=== PATIENT | female | born 1995 | race Caucasian/White ===

== ENCOUNTER 2016-10-25 07:19 | Emergency (ER) | payer SELFPAY ==
[~2016-10-25] VITALS: Ht 165.1 cm; Wt 94.8 kg
[~2016-10-25 07:19] MED LIST: ALBU8.5H4 IH; ARIP2TAB10 PO; AZIT-21 PO; AZIT250T5 PO; BENZ-13 PO; BENZ100C8 PO; BUTA-234 PO; BUTA1TAB46 PO; BUTA1TAB55 PO; CEFU250T PO; CEPH-507 PO; CIPR500T4 PO; CIPR500T78 PO; CLAR-19 PO; D-ME118S33 PO; DESV50TA PO; DIVA250T2 PO; ESCI20TA2 PO; HYDR-757 PO; LEVO40CA PO; METH4TAB PO; MINO100T10 PO; NAPR-243 PO; NAPR250T34 PO; NF-CIPDEC OT; NF-CIPROHC OT; NITR-65 PO; ONDA-42 SL; ONDA4TAB8 PO; ONDA8TAB13 PO; PRD20T PO; PRM25T PO; PROM25SU10 PR; PROZAC PO; RT-ALBUINH IH; TORADOL PO; TRAM50TA2 PO; TRAZ-144 PO; TRAZ300T3 PO
--- NOTE | 2016-10-25 07:41 | ED EENT ---
History of Present Illness General Chief Complaint: Eye Problems Stated Complaint: LEFT EYE REDNESS Nursing Triage Note: AMBULATED TO ROOM 07 WITH COMPLAINTS OF PINK EYE IN LEFT EYE SINCE 0200. Source: patient Exam Limitations: no limitations History of Present Illness Time seen by provider: 07:36 Initial Comments This 21-year-old white female presents with conjunctivitis of the left eye that she noted this morning. Patient denies foreign body injury or loss of her usual visual acuity. Patient's had no associated fever, headache, stiff neck, significant nasal congestion, sore throat, or productive cough. Pertinent past medical history includes depression, difficulty hearing from both ears and allergies to penicillins and sulfas. Her physician is at [facility]. Allergies and Home Medications Allergies Coded Allergies: amoxicillin (Verified Allergy, Unknown, 12/20/15) carbamazepine (Verified Allergy, Unknown, 12/20/15) Penicillins (Unverified Adverse Reaction, Intermediate, 12/20/15) Sulfa (Sulfonamide Antibiotics) (Unverified Adverse Reaction, Intermediate , 12/20/15) Review of Systems Constitutional: No chills, No fever Eyes: Denies Blindness, Denies Blurred Vision, Denies Foreign Body Sensation, InflammationDenies Photophobia Ears: Denies Pain Nose: denies epistaxis Mouth: no symptoms reported Throat: denies pain Respiratory: no symptoms reported Gastrointestinal: no symptoms reported Musculoskeletal: no symptoms reported Skin: no symptoms reported Neurological: No Symptoms Reported Hematologic/Lymphatic: No Symptoms Reported Immunological/Allergic: no symptoms reported Past Avvikod-Nahoep-Qjypul Hx Patient Social History Recent Foreign Travel: No Contact w/Someone Who Travel: No Recent Infectious Disease Expo: No Recent Hopitalizations: No Immunizations Up To Date Tetanus Booster (TDap): Unknown PED Vaccines UTD: Yes Date of Pneumonia Vaccine: Apr 19, 2012 Date of Influenza Vaccine: Apr 19, 2012 Seasonal Allergies Seasonal Allergies: Yes Surgeries HX Surgeries: Yes (RIGHT NEPHRECTOMY, BMT'S, TUMOR REMOVAL ROOF OF MOUTH) Surgeries: Adenoidectomy, Ear Surgery, Nephrectomy, Renal, Tonsillectomy Respiratory Hx Respiratory Disorders: No Cardiovascular Hx Cardiac Disorders: Yes Cardiac Disorders: High Cholesterol, Hypertension Neurological Hx Neurological Disorders: Yes (LAST SEIZURE @ 9YRS OLD) Neurological Disorders: Headaches /Migraines, Seizure Disorder Reproductive System Hx Reproductive Disorders: No Genitourinary Hx Genitourinary Disorders: Yes (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 CHILD) Gastrointestinal Hx Gastrointestinal Disorders: No Musculoskeletal Hx Musculoskeletal Disorders: No Endocrine Hx Endocrine Disorders: No HEENT HX ENT Disorders: Yes (BMT'S, 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, [place] LEFT EAR) HEENT Disorders: Chronic Ear Infection Hearing Impairment: Hard of Hearing Cancer Hx Cancer: No Psychosocial Hx Psychiatric Problems: Yes Behavioral Health Disorders: Anxiety, Depression Integumentary HX Skin/Integumentary Disorder: No Blood Transfusions Hx Blood Disorders: No Reviewed Nursing Assessment Reviewed/Agree w Nursing PMH: Yes Family Medical History Significant Family History: No Pertinent Family Hx Visual Acuity : Eye Location: Bilaterally Vision Acuity Degree: 20/40 Physical Exam Vital Signs Vital Sign - Last 12Hours 10/25/16 07:20 Temp 98.2 Pulse 107 Resp 18 B/P 156/80 Pulse Ox 96 O2 Delivery Non Rebreather General Appearance: WD/WN no apparent distress Eyes: left eye conjunctival inflammation, left eye lid inflammation Ears: bilateral ear auricle normal Nose: normal inspection Mouth/Throat: normal mouth inspection Neck: non-tender supple Neurologic/Psychiatric: no motor/sensory deficits alert normal mood/affect Skin: normal color warm/dry Progress/Results/Core Measures Results/Orders Vital Signs/I&O Vital Sign - Last 12Hours 10/25/16 07:20 Temp 98.2 Pulse 107 Resp 18 B/P 156/80 Pulse Ox 96 O2 Delivery Non Rebreather Blood Pressure Mean: 105 Progress Note : Time: 07:40 Progress Note The patient's visual acuity was 20/40 in both eyes which the patient states is normal for her. There was significant scleral injection as well as lid inflammation without swelling of the soft tissues. Fortunately no floor seen exam failed to demonstrate evidence of corneal abrasion or foreign body. Next The residual floor seen was removed with saline. Departure Impression Impression: Primary Impression: [place] eye disease of left eye Disposition: 01 HOME, SELF-CARE Condition: Unchanged Departure-Patient Inst. Decision time for Depature: 07:42 Referrals: [facility] (PCP/Family) Primary Care Physician Patient Instructions: Conjunctivitis ([place]) (DC) Add. Discharge Instructions: I discussed the likely viral etiology of the scleral injection of the left eye with the patient. Patient was encouraged to avoid cross contamination from her left or right eye. Good handwashing was already cleared to the patient. I asked that she follow up with community health closely. The patient requested eyedrops for the conjunctivitis of left eye. I gave her cipro drops for coverage of a secondary bacterial infection and instructions employed either Naphcon or Vascon A eyedrops to the left eye for relief. I asked that she return if any problems or questions All discharge instructions reviewed with patient and/or family. Voiced understanding. KAMI GUNDERSON MD Oct 25, 2016 07:41
[2016-10-25 07:50] VITALS: BP 156/80
[2016-10-25] MEDS ORDERED: FLUORESCEIN (FLUOR-I-STRIPS) 1 MG STRP OU ONE (08:00)
[2016-10-25] MEDS ORDERED: BSS 15 ML IR ONE (08:00)
[2016-10-25] MEDS ORDERED: CATHETER FLUSH 10 ML SYR IV PRN (08:00)
== END 2016-10-25 07:50 | disposition home or self-care (01) ==
LOC: EDUNIT# 07:19 → ER 07:21
DX: H10.022 Other mucopurulent conjunctivitis, left eye (principal)
CPT/HCPCS: 99282

== ENCOUNTER 2016-12-21 12:23 | Emergency (ER) | payer SELFPAY ==
[~2016-12-21] VITALS: Ht 165.1 cm; Wt 113.4 kg
--- NOTE | 2016-12-21 12:59 | ED Cough/URI ---
General Chief Complaint: Cough/Cold/Flu Symptoms Stated Complaint: POSS STREP Nursing Triage Note: AMBULATED TO ROOM 08 WEARING A MASK. COMPLAINS OF COUGH, SORE THROAT, LOW GRADE FEVER FOR SEVERAL DAYS. Source: patient Exam Limitations: no limitations History of Present Illness Time seen by provider: 12:59 Initial Comments 21-year-old female patient presents to the emergency department with complaints of cough, congestion, rhinorrhea, sore throat and low-grade fever for the last 2 -3 days. Worse today. Timing/Duration: getting worse, other (2-3 days) Severity/Quality: productive cough (whitish with slight green tinged) Prior Episodes/Possible Cause: no prior episodes Modifying Factors: Worse With Coughing, Worse With Other (worse with swallowing ) Allergies and Home Medications Allergies Coded Allergies: amoxicillin (Verified Allergy, Unknown, 12/20/15) carbamazepine (Verified Allergy, Unknown, 12/20/15) Penicillins (Unverified Adverse Reaction, Intermediate, 12/20/15) Sulfa (Sulfonamide Antibiotics) (Unverified Adverse Reaction, Intermediate , 12/20/15) Home Medications Oseltamivir Phosphate 75 Mg Cap #10 75 MG PO BID Prescribed by: BASILIO REA on 12/21/16 1312 Promethazine HCl 25 Mg Tablet #10 12.5-25 MG PO Q6H PRN PRN NAUSEA/VOMITING Prescribed by: BASILIO REA on 12/21/16 1312 Constitutional: see HPI chills fever malaise EENTM: nose congestion throat painNo ear discharge, No ear pain, No mouth pain , No mouth swelling, No throat swelling Respiratory: see HPI cough phlegmNo short of breath, No stridor, No wheezing Cardiovascular: no symptoms reported Gastrointestinal: No abdominal pain, No diarrhea, nauseaNo vomiting Genitourinary: no symptoms reported Musculoskeletal: no symptoms reported Skin: no symptoms reported Psychiatric/Neurological: No Symptoms Reported All Other Systems Reviewed Negative Unless Noted: Yes (Negative excepted noted.) Past Homujxe-Rbrqen-Zhffwc Hx Patient Social History Recent Foreign Travel: No Contact w/Someone Who Travel: No Recent Infectious Disease Expo: No Recent Hopitalizations: No Immunizations Up To Date Tetanus Booster (TDap): Unknown PED Vaccines UTD: Yes Date of Pneumonia Vaccine: Apr 19, 2012 Date of Influenza Vaccine: Apr 19, 2012 Seasonal Allergies Seasonal Allergies: Yes Surgeries HX Surgeries: Yes (RIGHT NEPHRECTOMY, BMT'S, TUMOR REMOVAL ROOF OF MOUTH) Surgeries: Adenoidectomy, Ear Surgery, Nephrectomy, Renal, Tonsillectomy Respiratory Hx Respiratory Disorders: No Cardiovascular Hx Cardiac Disorders: Yes Cardiac Disorders: High Cholesterol, Hypertension Neurological Hx Neurological Disorders: Yes (LAST SEIZURE @ 9YRS OLD) Neurological Disorders: Headaches /Migraines, Seizure Disorder Reproductive System Hx Reproductive Disorders: No Genitourinary Hx Genitourinary Disorders: Yes (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 CHILD) Gastrointestinal Hx Gastrointestinal Disorders: No Musculoskeletal Hx Musculoskeletal Disorders: No Endocrine Hx Endocrine Disorders: No HEENT HX ENT Disorders: Yes (BMT'S, 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, [place] LEFT EAR) HEENT Disorders: Chronic Ear Infection Hearing Impairment: Hard of Hearing Cancer Hx Cancer: No Psychosocial Hx Psychiatric Problems: Yes Behavioral Health Disorders: Anxiety, Depression Integumentary HX Skin/Integumentary Disorder: No Blood Transfusions Hx Blood Disorders: No Reviewed Nursing Assessment Reviewed/Agree w Nursing PMH: Yes Family Medical History Significant Family History: No Pertinent Family Hx Physical Exam Vital Signs Vital Sign - Last 12Hours 12/21/16 12:30 Temp 99.1 Pulse 80 Resp 16 B/P 143/95 Pulse Ox 100 O2 Delivery Room Air Capillary Refill : Less Than 3 Seconds General Appearance: WD/WN no apparent distress HEENT: PERRL/EOMI TMs normal pharyngeal erythema other (positive nasal congestion and rhinorrhea) Neck: non-tender supple normal inspection Respiratory: lungs clear normal breath sounds no respiratory distress Cardiovascular: regular rate, rhythm no murmur Gastrointestinal: non tender softNo distended Extremities: normal capillary refill Neurologic/Psychiatric: alert normal mood/affect oriented x 3 Skin: normal color warm/dry Progress/Results/Core Measures Results/Orders Lab Results Laboratory Tests Test 12/21/16 12:30 Range/Units Group A Streptococcus Screen NEGATIVE NEGATIVE My Orders Orders-BASILIO REA Rapid Strep A Screen (12/21/16 12:31) Vital Signs/I&O Vital Sign - Last 12Hours 12/21/16 12/21/16 12/21/16 12:30 12:30 13:23 Temp 99.1 98.6 Pulse 80 77 Resp 16 16 B/P 143/95 Pulse Ox 100 98 O2 Delivery Room Air Room Air Blood Pressure Mean: 111 Departure Communication Progress Notes Patient seen and evaluated. Laboratory findings discussed with the patient. I discussed with the patient that she does have symptoms suspicious for influenza. patient would like to be treated with Tamiflu. Tamiflu Rx sent to the pharmacy. Impression Impression: Primary Impression: Influenza-like symptoms Disposition: 01 HOME, SELF-CARE Condition: Improved Departure-Patient Inst. Decision time for Depature: 13:11 Referrals: [facility] (PCP/Family) Primary Care Physician Patient Instructions: Flu, Adult (DC) Add. Discharge Instructions: All discharge instructions reviewed with patient and/or family. Voiced understanding. Medications as instructed. Tylenol extra strength over-the- counter as directed for pain or fever. Ibuprofen 800 mg by mouth every 8 hours as needed for pain or fever. Push fluids. Throat lozenges or sprays over-the- counter as needed for throat pain. Follow-up with her family practitioner for recheck if no improvement in symptoms in 3-5 days, call for appointment time if needed. Return to the emergency department for worsened fever, pain, difficulty swallowing, difficulty breathing, shortness of air, vomiting, decreased urination, or any other concerns. Scripts Promethazine HCl (Promethazine Tablet)25 Mg Atdfow23.5-25 Mg PO Q6H PRN NAUSEA/ VOMITING #10 TAB Ref 0 Prov:BASILIO REA 12/21/16 Oseltamivir Phosphate (Tamiflu)75 Mg Cap75 Mg PO BID #10 CAP Ref 0 Prov:BASILIO REA 12/21/16 BASILIO REA Dec 21, 2016 12:59
[2016-12-21] MEDS ORDERED: PROM25TA14 PO (13:12)
[2016-12-21] MEDS ORDERED: OSLT75C PO (13:12)
[2016-12-21 13:23] VITALS: BP 140/89
== END 2016-12-21 13:23 | disposition home or self-care (01) ==
LOC: EDUNIT# 12:23 → ER 12:24
DX: J10.1 Influenza due to other identified influenza virus with other respiratory manifestations (principal); I10 Essential (primary) hypertension; Z79.899 Other long term (current) drug therapy; Z90.5 Acquired absence of kidney
CPT/HCPCS: 87430; 99282

== ENCOUNTER 2017-03-12 16:04 | Emergency (ER) | payer SELFPAY ==
[~2017-03-12] VITALS: Ht 165.1 cm; Wt 113.4 kg
[~2017-03-12 16:04] MED LIST changes: +OSLT75C PO; +PROM25TA14 PO
[2017-03-12] MEDS ORDERED: CEPH500C PO (16:20)
--- NOTE | 2017-03-12 16:36 | ED EENT ---
History of Present Illness General Chief Complaint: Oral/Throat Problems Stated Complaint: HURTS TO COUGH,THROAT HURTS Nursing Triage Note: TO ROOM 03 VIA AMB WITHOUT DIFFICULTY. COMPLAINS OF DX STREP THROAT ON FRIDAY. STATES SHE WAS PUT ON CEPHALEXIN AND THINKS SHE IS HAVING AN ALLERGIC REACTION TO IT BECAUSE HER THROAT HURTS WORSE AND IT IS ITCHING. Source: patient Exam Limitations: no limitations History of Present Illness Time seen by provider: 16:35 Allergies and Home Medications Allergies Coded Allergies: amoxicillin (Verified Allergy, Unknown, 12/20/15) carbamazepine (Verified Allergy, Unknown, 12/20/15) Penicillins (Unverified Adverse Reaction, Intermediate, 12/20/15) Sulfa (Sulfonamide Antibiotics) (Unverified Adverse Reaction, Intermediate , 12/20/15) Home Medications Cephalexin 500 Mg Capsule, 500 MG PO TID, (Reported) Past Gtjmovo-Mqddfm-Kldtbx Hx Patient Social History Alcohol Use: Denies Use Recreational Drug Use: No Smoking Status: Never a Smoker Recent Foreign Travel: No Contact w/Someone Who Travel: No Recent Infectious Disease Expo: No Recent Hopitalizations: No Immunizations Up To Date Tetanus Booster (TDap): Unknown PED Vaccines UTD: Yes Date of Pneumonia Vaccine: Apr 19, 2012 Date of Influenza Vaccine: Apr 19, 2012 Seasonal Allergies Seasonal Allergies: Yes Surgeries HX Surgeries: Yes (RIGHT NEPHRECTOMY, BMT'S, TUMOR REMOVAL ROOF OF MOUTH) Surgeries: Adenoidectomy, Ear Surgery, Nephrectomy, Renal, Tonsillectomy Respiratory Hx Respiratory Disorders: No Cardiovascular Hx Cardiac Disorders: Yes Cardiac Disorders: High Cholesterol, Hypertension Neurological Hx Neurological Disorders: Yes (LAST SEIZURE @ 9YRS OLD) Neurological Disorders: Headaches /Migraines, Seizure Disorder Reproductive System Hx Reproductive Disorders: No Genitourinary Hx Genitourinary Disorders: Yes (RIGHT NEPHRECTOMY FOR BENIGN TUMOR / SMALL CHILD) Gastrointestinal Hx Gastrointestinal Disorders: No Musculoskeletal Hx Musculoskeletal Disorders: No Endocrine Hx Endocrine Disorders: No HEENT HX ENT Disorders: Yes (BMT'S, 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, [place] LEFT EAR) HEENT Disorders: Chronic Ear Infection Hearing Impairment: Hard of Hearing Cancer Hx Cancer: No Psychosocial Hx Psychiatric Problems: Yes Behavioral Health Disorders: Anxiety, Depression Integumentary HX Skin/Integumentary Disorder: No Blood Transfusions Hx Blood Disorders: No Family Medical History Significant Family History: No Pertinent Family Hx Physical Exam Vital Signs Vital Sign - Last 12Hours 5/24/17 16:16 Temp 99.0 Pulse 88 Resp 16 B/P (MAP) 133/96 Pulse Ox 93 Progress/Results/Core Measures Results/Orders Vital Signs/I&O Vital Sign - Last 12Hours 03/12/17 16:16 Temp 99.0 Pulse 88 Resp 16 B/P (MAP) 133/96 Pulse Ox 93 Blood Pressure Mean: 108 Departure Impression Impression: Primary Impression: Streptococcal sore throat Disposition: HOME, SELF-CARE Condition: Improved Departure-Patient Inst. Decision time for Depature: 16:56 Referrals: [facility] (PCP[facility]Family) Primary Care Physician Patient Instructions: Strep Throat (DC) Add. Discharge Instructions: All discharge instructions reviewed with patient and/or family. Voiced understanding. Medications as instructed. Tylenol extra strength over-the- counter as directed for pain. Ibuprofen [id number] as directed for pain. Drink plenty of fluids. Cool humidifier. Follow-up with your primary care physician for recheck if needed. Return to the emergency department for worsened symptoms or any other concerns. Scripts Benzonatate (Tessalon Perle) 100 Mg Capsule 100-200 MG PO Q8H Y for COUGH, #30 CAP 0 Refills Prov: BASILIO REA 03/12/17 Erythromycin Base (Erythromycin) 500 Mg Tablet 500 MG PO QID, #40 TAB 0 Refills Prov: BASILIO REA 03/12/17 BASILIO REA March 12, 2017 16:36
[2017-03-12] MEDS ORDERED: ERYT-96 PO (16:59)
[2017-03-12] MEDS ORDERED: ACETAMINOPHEN 500 MG TAB (TYLENOL) PO STA (17:01)
[2017-03-12] MEDS ORDERED: BENZ-13 PO (17:01)
[2017-03-12 17:14] VITALS: BP 133/96
== END 2017-03-12 17:14 | disposition home or self-care (01) ==
LOC: EDUNIT# 16:04 → ER 16:06
DX: J02.0 Streptococcal pharyngitis (principal); I10 Essential (primary) hypertension; Z90.5 Acquired absence of kidney
CPT/HCPCS: 99282

== ENCOUNTER 2017-08-08 20:18 | Emergency (ER) | payer SELFPAY ==
[~2017-08-08] VITALS: Ht 165.1 cm; Wt 113.4 kg
[~2017-08-08 20:18] MED LIST changes: +CEPH500C PO; +ERYT-96 PO
--- NOTE | 2017-08-08 21:49 | ED EENT ---
History of Present Illness General Chief Complaint: Oral/Throat Problems Stated Complaint: STREP THROAT Nursing Triage Note: c/o sore throat, since friday the , reports was evaluated by PCP 2 days ago and told she had strep throat, patient was started on antibiotic and medication for cough, denies improvement. patient called pcp and was told to follow up with them tomorrow or check into ER tonight Source: patient Exam Limitations: no limitations History of Present Illness Time seen by provider: 21:48 Allergies and Home Medications Allergies Coded Allergies: amoxicillin (Verified Allergy, Unknown, 12/20/15) carbamazepine (Verified Allergy, Unknown, 12/20/15) Penicillins (Unverified Adverse Reaction, Intermediate, 12/20/15) Sulfa (Sulfonamide Antibiotics) (Unverified Adverse Reaction, Intermediate , 12/20/15) Home Medications Benzonatate 100 Mg Capsule, 100-200 MG PO Q8H PRN for COUGH, #30 Ref 0 Prescribed by: BASILIO REA on 03/12/17 1701 Cephalexin 500 Mg Capsule, 500 MG PO TID, (Reported) Erythromycin Base 500 Mg Tablet, 500 MG PO QID, #40 Ref 0 Prescribed by: BASILIO REA on 03/12/17 1659 Past Jmyzwwy-Lqaeju-Gzvvyr Hx Patient Social History Alcohol Use: Denies Use Recreational Drug Use: No Recent Foreign Travel: No Contact w/Someone Who Travel: No Recent Infectious Disease Expo: No Recent Hopitalizations: No Physical Abuse: No Sexual Abuse: No Immunizations Up To Date Tetanus Booster (TDap): Unknown PED Vaccines UTD: Yes Date of Pneumonia Vaccine: Apr 19, 2012 Date of Influenza Vaccine: Apr 19, 2012 Seasonal Allergies Seasonal Allergies: Yes Surgeries History of Surgeries: Yes (RIGHT NEPHRECTOMY, BMT'S, TUMOR REMOVAL ROOF OF MOUTH) Surgeries: Adenoidectomy, Ear Surgery, Nephrectomy, Renal, Tonsillectomy Respiratory History of Respiratory Disorde: No Cardiovascular History of Cardiac Disorders: Yes Cardiac Disorders: High Cholesterol, Hypertension Neurological History of Neurological Disord: Yes (LAST SEIZURE @ 9YRS OLD) Neurological Disorders: Headaches /Migraines, Seizure Disorder Reproductive System Hx Reproductive Disorders: No Genitourinary History of Genitourinary Disor: No Gastrointestinal History of Gastrointestinal Di: No Musculoskeletal History of Musculoskeletal Dis: No Endocrine History of Endocrine Disorders: No HEENT HEENT Disorders: Chronic Ear Infection Hearing Impairment: Hard of Hearing Cancer History of Cancer: No Psychosocial History of Psychiatric Problem: Yes Behavioral Health Disorders: Anxiety, Depression Suicide Risk Score: 0 Integumentary History of Skin or Integumenta: No Blood Transfusions History of Blood Disorders: No Family Medical History Significant Family History: No Pertinent Family Hx Physical Exam Vital Signs Vital Sign - Last 12Hours 08/08/17 20:45 Temp 99.1 Pulse 102 Resp 18 B/P (MAP) 163/88 Pulse Ox 99 Progress/Results/Core Measures Results/Orders Lab Results Laboratory Tests Test 08/08/17 20:55 Range/Units Group A Streptococcus Screen NEGATIVE NEGATIVE My Orders Orders - BASILIO REA Rapid Strep A Screen (08/08/17 20:49) Vital Signs/I&O Vital Sign - Last 12Hours 08/08/17 20:45 Temp 99.1 Pulse 102 Resp 18 B/P (MAP) 163/88 Pulse Ox 99 Blood Pressure Mean: 113 Departure Impression Impression: Primary Impression: Acute bronchitis Additional Impression: Pharyngitis, acute Disposition: 01 HOME, SELF-CARE Condition: Improved Departure-Patient Inst. Decision time for Depature: 22:35 Referrals: [facility] (PCP/Family) Primary Care Physician Patient Instructions: Acute Bronchitis, Adult (DC) Add. Discharge Instructions: All discharge instructions reviewed with patient and/or family. Voiced understanding. Medications as instructed. Continue medications as prescribed by [facility]. Tessalon Perles 100-200 mg by mouth every 8 hours as needed for cough. Cool humidifier if needed. Avoid secondhand smoke. Follow-up with [facility] as an outpatient for recheck if no improvement in symptoms. Return to the emergency department for worsened symptoms or any other concerns. Scripts Albuterol Sulfate (Proventil Hfa) 6.7 Gm Hfa.aer.ad 2 PUFF IH Q6H Y for SHORTNESS OF BREATH, #1 EACH 0 Refills Prov: BASILIO REA 08/08/17 Prednisone (Prednisone) 20 Mg Tab 40 MG PO DAILY, #10 TAB 0 Refills Prov: BASILIO REA 08/08/17 BASILIO REA Aug 08, 2017 21:48
[2017-08-08] MEDS ORDERED: RT-ALBUINH IH (22:37)
[2017-08-08] MEDS ORDERED: PRD20T PO (22:37)
[2017-08-08 22:42] VITALS: BP 163/88
== END 2017-08-08 22:41 | disposition home or self-care (01) ==
LOC: EDUNIT# 20:18 → ER 20:19
DX: J20.9 Acute bronchitis, unspecified (principal); J02.9 Acute pharyngitis, unspecified; I10 Essential (primary) hypertension; G43.909 Migraine, unspecified, not intractable, without status migrainosus; F41.9 Anxiety disorder, unspecified; F32.9 Major depressive disorder, single episode, unspecified; G40.909 Epilepsy, unspecified, not intractable, without status epilepticus; Z90.5 Acquired absence of kidney
CPT/HCPCS: 87430; 99282

== ENCOUNTER 2017-09-18 00:31 | Emergency (ER) | payer SELFPAY ==
[~2017-09-18] VITALS: Ht 165.1 cm; Wt 117.9 kg
[~2017-09-18 00:31] MED LIST changes: +AZIT250T12 PO; -AZIT250T5 PO
[2017-09-18 00:52] LABS: BILIRUBIN,URINE NEGATIVE (NEGATIVE); KETONES,URINE NEGATIVE (NEGATIVE); LEUKOCYTE ESTERASE ,URINE 2+ (NEGATIVE); NITRITE,URINE NEGATIVE (NEGATIVE); PH,URINE 5 (5-9); PROTEIN,URINE 3+ (NEGATIVE); UROBILINOGEN,URINE NORMAL (NORMAL)
[2017-09-18 00:59] LABS: CALCIUM OXALATE CRYSTALS,UR FEW /LPF; SQUAMOUS EPITHELIAL CELL,UR 0-2 /HPF; WBC,URINE 0-2 /HPF
[2017-09-18 01:40] VITALS: BP 141/84
--- NOTE | 2017-09-18 01:41 | ED GU-Female ---
General Chief Complaint: Back Problems Stated Complaint: LOWER BACK PAIN,BLOOD IN URINE Nursing Triage Note: LOWER BACK PAIN/HEMATURIA Nursing Sepsis Screen: No Definite Risk Source: patient History of Present Illness Time seen by provider: 00:39 Initial Comments C/O DIFFUSE LOWER BACK PAIN AND BLOOD IN URINE X 3 DAYS NO PAIN OR BURNING ON URINATION NO FEVER NO NAUSEA/VOMITING NO ABDOMINAL PAIN NO HISTORY OF SIMILAR HAS NOT TAKEN ANYTHING FOR SYMPTOMS HAS NOT SOUGHT CARE UNTIL TODAY PCP: [facility] Allergies and Home Medications Allergies Coded Allergies: amoxicillin (Verified Allergy, Unknown, 12/20/15) carbamazepine (Verified Allergy, Unknown, 12/20/15) Penicillins (Unverified Adverse Reaction, Intermediate, 12/20/15) Sulfa (Sulfonamide Antibiotics) (Unverified Adverse Reaction, Intermediate , 12/20/15) Home Medications Nitrofurantoin Monohyd/M-Cryst 100 Mg Capsule, 100 MG PO BID, #20 Prescribed by: SHAQ OLSEN on 09/18/17 0142 Tramadol HCl 50 Mg Tablet, 50 MG PO Q4H, #20 Prescribed by: SHAQ OLSEN on 09/18/17 0142 Constitutional: no symptoms reported Respiratory: no symptoms reported Cardiovascular: no symptoms reported Gastrointestinal: no symptoms reported Genitourinary: see HPI, denies burning, denies dysuria, flank pain, hematuria, denies pain, denies urgency : No LMP: Sep 09, 2017 (NO CONTROL) Musculoskeletal: see HPI, back pain Past Gcqpezo-Vqjvbt-Rmodla Hx Patient Social History Alcohol Use: Denies Use Recreational Drug Use: No Smoking Status: Never a Smoker 2nd Hand Smoke Exposure: No Recent Foreign Travel: No Contact w/Someone Who Travel: No Recent Infectious Disease Expo: No Recent Hopitalizations: No Immunizations Up To Date Tetanus Booster (TDap): Unknown PED Vaccines UTD: Yes Date of Pneumonia Vaccine: Apr 19, 2012 Date of Influenza Vaccine: Apr 19, 2012 Seasonal Allergies Seasonal Allergies: Yes Surgeries History of Surgeries: Yes (RIGHT NEPHRECTOMY, BMT'S, TUMOR REMOVAL ROOF OF MOUTH) Surgeries: Adenoidectomy, Ear Surgery, Nephrectomy, Renal, Tonsillectomy Respiratory History of Respiratory Disorde: No Cardiovascular History of Cardiac Disorders: Yes Cardiac Disorders: High Cholesterol, Hypertension Neurological History of Neurological Disord: Yes (LAST SEIZURE @ 9YRS OLD. NO SEIZURE MEDICATIONS FOR YEARS) Neurological Disorders: Headaches /Migraines, Seizure Disorder Reproductive System : No Hx Reproductive Disorders: No Genitourinary History of Genitourinary Disor: Yes (RIGHT NEPHRECTOMY FOR BENIGN TUMOR /SMALL CHILD) Gastrointestinal History of Gastrointestinal Di: No Musculoskeletal History of Musculoskeletal Dis: No Endocrine History of Endocrine Disorders: No HEENT History of HEENT Disorders: Yes HEENT Disorders: Chronic Ear Infection Hearing Impairment: Hard of Hearing Cancer History of Cancer: No Psychosocial History of Psychiatric Problem: Yes Behavioral Health Disorders: Anxiety, Depression Integumentary History of Skin or Integumenta: No Blood Transfusions History of Blood Disorders: No Family Medical History Significant Family History: No Pertinent Family Hx Physical Exam Vital Signs Vital Sign - Last 12Hours 09/18/17 00:43 Temp 98.4 Pulse 80 Resp 46 B/P (MAP) 141/84 Pulse Ox 97 O2 Delivery Room Air Capillary Refill : Less Than 3 Seconds General Appearance: no apparent distress, obese Cardiovascular: regular rate, rhythm, no murmur Respiratory: normal breath sounds, no respiratory distress, no accessory muscle use Gastrointestinal: normal bowel sounds, non tender, soft, no organomegaly Back: CVA tenderness (R), CVA tenderness (L) Extremities: normal inspection, no pedal edema, normal capillary refill Neurologic/Psychiatric: flux tube attendant II-XII nml as tested, no motor/sensory deficits, alert, normal mood/affect, oriented x 3 Skin: normal color, warm/dry, No rash Progress/Results/Core Measures Suspected Sepsis Recent Fever Within 48 Hours: No Infection Criteria Present: None New/Unexplained Altered Menta: No Sepsis Screen: No Definite Risk Sepsis Diagnosis: SIRS Temperature:98.4 Pulse: 80 Respiratory Rate: 46 Blood Pressure 141 /84 Mean: 103 Results/Orders Lab Results Laboratory Tests Test 09/18/17 00:45 Range/Units Urine Color RED H Urine Clarity BLOODY H Urine pH 5 5-9 Urine Specific [place] 1.030 H 1.016-1.022 Urine Protein 3+ H NEGATIVE Urine Glucose (UA) NEGATIVE NEGATIVE Urine Ketones NEGATIVE NEGATIVE Urine Nitrite NEGATIVE NEGATIVE Urine Bilirubin NEGATIVE NEGATIVE Urine Urobilinogen NORMAL NORMAL MG/DL Urine Leukocyte Esterase 2+ H NEGATIVE Urine RBC (Auto) 5+ H NEGATIVE Urine RBC >100 H /HPF Urine WBC 0-2 /HPF Urine Squamous Epithelial Cells 0-2 /HPF Urine Crystals PRESENT H /LPF Urine Calcium Oxalate Crystals FEW H /LPF Urine Bacteria MODERATE H /HPF Urine Casts NONE /LPF Urine Mucus NEGATIVE /LPF Urine Culture Indicated YES My Orders Orders - SHAQ OLSEN DO Ua Culture If Indicated (09/18/17 00:38) Urine Bedside (09/18/17 00:38) Urine Culture (09/18/17 00:45) Ct Abd/Pelvis Wo(Kidney Stone) (09/18/17 01:05) Abdomen/Kub 1[place] (09/18/17 01:05) Rx-Nitrofurantoin [place] (Rx-Macrobid) (09/18/17 01:43) Rx-Tramadol Hcl (Rx-Ultram) (09/18/17 01:43) Vital Signs/I&O Vital Sign - Last 12Hours 09/18/17 09/18/17 00:43 01:40 Temp 98.4 98.4 Pulse 80 80 Resp 46 46 B/P (MAP) 141/84 Pulse Ox 97 97 O2 Delivery Room Air Capillary Refill : Less Than 3 Seconds Blood Pressure Mean: 103 Point of Care Testing Urine -Bedside: Negative Diagnostic Imaging Comments KUB--NO ACUTE PROCESS, PENDING RADIOLOGIST REVIEW CT ABDOMEN/PELVIS--NO ACUTE PROCESS, RIGHT NEPHRECTOMY, MULTIPLE SUBCENTIMETER MESENTERIC NODES, SIMILAR TO PREVIOUS--PER [facility] VIA FAX @ 1051 Reviewed: Reviewed by Me Departure Impression Impression: Primary Impression: Urinary tract infection with hematuria Disposition: HOME, SELF-CARE Condition: Stable Departure-Patient Inst. Referrals: [facility] (PCP/Family) Primary Care Physician Patient Instructions: Blood in the Urine (Hematuria), Adult (DC), Urinary Tract Infection, Adult (DC) Add. Discharge Instructions: LOTS OF CLEAR LIQUIDS--NO COFFEE, POP OR TEA TYLENOL NEEDED FOR PAIN FOLLOW UP WITH YOUR DR IN 2-3 DAYS FOR FURTHER CARE All discharge instructions reviewed with patient and/or family. Voiced understanding. Scripts Tramadol HCl (Ultram) 50 Mg Tablet 50 MG PO Q4H, #20 TAB Prov: SHAQ OLSEN DO 09/18/17 Nitrofurantoin Monohyd/M-Cryst (Macrobid 100 mg Capsule) 100 Mg Capsule 100 MG PO BID, #20 CAP Prov: SHAQ OLSEN DO 09/18/17 SHAQ OLSEN DO Sep 18, 2017:41
[2017-09-18] MEDS ORDERED: TRAM-42 PO (01:42)
[2017-09-18] MEDS ORDERED: NITR-65 PO (01:42)
[2017-09-18] MEDS ORDERED: RX-TRAMADOL 50 MG (ULTRAM) TAB PPK#4 PO STA (01:43)
[2017-09-18] MEDS ORDERED: RX-NITROFURANTOIN 100 MG (MACROBID) CAP PPK#2 PO STA (01:43)
--- NOTE | 2017-09-18 06:37 | Diagnostic Imaging Report ---
PROCEDURE: CT urinary tract, rule out kidney stone. TECHNIQUE: Multiple contiguous axial images were obtained through the abdomen and pelvis without the use of intravenous contrast. INDICATION: Low back pain x4 days Lung bases are clear. Liver appears normal. Gallbladder is contracted. Pancreas is normal. Spleen is not enlarged. There is large amount of food residue in the stomach. Adrenals are normal. Right kidney is surgically absent. Left kidney appears normal. Left ureter is clear. Uterus and ovaries appear normal. Small bowel is not dilated. There is no evidence for appendicitis. Colon appears normal. There is no intraperitoneal free air or free fluid. IMPRESSION: Postop changes from right nephrectomy. CT abdomen and pelvis otherwise unremarkable. There is no acute abnormality seen. Dictated by: Dictated on workstation # [id number]
--- NOTE | 2017-09-18 06:40 | Diagnostic Imaging Report ---
INDICATION: Back pain x4 days KUB 1:45 AM Bowel gas pattern is normal. There are no pathologic masses or calcifications. Osseous structures appear normal. IMPRESSION: Negative abdomen and pelvis Dictated by: Dictated on workstation # [id number]
== END 2017-09-18 01:47 | disposition home or self-care (01) ==
LOC: EDUNIT# 00:31 → ER 00:35
DX: N39.0 Urinary tract infection, site not specified (principal); E78.00 Pure hypercholesterolemia, unspecified; I10 Essential (primary) hypertension; G43.909 Migraine, unspecified, not intractable, without status migrainosus; G40.909 Epilepsy, unspecified, not intractable, without status epilepticus; F41.9 Anxiety disorder, unspecified; F32.9 Major depressive disorder, single episode, unspecified; Z90.5 Acquired absence of kidney; Z90.89 Acquired absence of other organs
CPT/HCPCS: 74000; 74176; 81000; 84703; 87088; 99283

== ENCOUNTER 2017-10-18 02:08 | Emergency (ER) | payer SELFPAY ==
[~2017-10-18] VITALS: Ht 165.1 cm; Wt 114.8 kg
[~2017-10-18 02:08] MED LIST changes: +TRAM-42 PO
--- NOTE | 2017-10-18 02:25 | ED EENT ---
History of Present Illness General Chief Complaint: Oral/Throat Problems Stated Complaint: SORE THROAT,SWOLLEN THROAT-BLOODY Source: patient Exam Limitations: no limitations History of Present Illness Time seen by provider: 02:15 Initial Comments Patient presents ER by private conveyance with chief complaint of 4 days she's had progressively worsening sore throat, muffled voice, ear pain bilaterally and some chills. 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 She has tried throat lozenges but they made her sick to her stomach. She' s had her tonsils and adenoids removed. She's had histories of tubes in both ears as a child. Allergies and Home Medications Allergies Coded Allergies: amoxicillin (Verified Allergy, Unknown, 12/20/15) carbamazepine (Verified Allergy, Unknown, 12/20/15) Penicillins (Unverified Adverse Reaction, Intermediate, 12/20/15) Sulfa (Sulfonamide Antibiotics) (Unverified Adverse Reaction, Intermediate , 12/20/15) Home Medications No Active Prescriptions or Reported Meds Review of Systems Constitutional: chills, No fever, No malaise Eyes: Denies Blindness, Denies Blurred Vision Ears: See HPI, Denies Dizziness, Pain, Denies Tinnitus, Denies Purulent Discharge Nose: denies clots, congestion Mouth: denies pain, denies swelling Throat: denies neck stiffness, hoarse Respiratory: cough, No phlegm, No short of breath, No wheezing Skin: No pruritus, No rash Neurological: Denies Headache, Denies Numbness, Denies Paresthesia Past Sftuwtn-Hinwjl-Jzsrut Hx Patient Social History Alcohol Use: Denies Use Recreational Drug Use: No Smoking Status: Never a Smoker 2nd Hand Smoke Exposure: No Recent Foreign Travel: No Contact w/Someone Who Travel: No Recent Hopitalizations: No Immunizations Up To Date Tetanus Booster (TDap): Unknown PED Vaccines UTD: Yes Date of Pneumonia Vaccine: Apr 19, 2012 Date of Influenza Vaccine: Apr 19, 2012 Seasonal Allergies Seasonal Allergies: Yes Surgeries History of Surgeries: Yes (RIGHT NEPHRECTOMY, BMT'S, TUMOR REMOVAL ROOF OF MOUTH) Surgeries: Adenoidectomy, Ear Surgery, Nephrectomy, Renal, Tonsillectomy Respiratory History of Respiratory Disorde: No Cardiovascular History of Cardiac Disorders: Yes Cardiac Disorders: High Cholesterol, Hypertension Neurological History of Neurological Disord: Yes (LAST SEIZURE @ 9YRS OLD. NO SEIZURE MEDICATIONS FOR YEARS) Neurological Disorders: Headaches /Migraines, Seizure Disorder Reproductive System Hx Reproductive Disorders: No Genitourinary History of Genitourinary Disor: Yes (RIGHT NEPHRECTOMY FOR BENIGN TUMOR /SMALL CHILD) Gastrointestinal History of Gastrointestinal Di: No Musculoskeletal History of Musculoskeletal Dis: No Endocrine History of Endocrine Disorders: No HEENT History of HEENT Disorders: Yes HEENT Disorders: Chronic Ear Infection Hearing Impairment: Hard of Hearing Cancer History of Cancer: No Psychosocial History of Psychiatric Problem: Yes Behavioral Health Disorders: Anxiety, Depression Integumentary History of Skin or Integumenta: No Blood Transfusions History of Blood Disorders: No Family Medical History Significant Family History: No Pertinent Family Hx Physical Exam Vital Signs Vital Sign - Last 12Hours 10/18/17 02:10 Temp 97.8 Pulse 93 Resp 18 B/P (MAP) 146/67 (93) Pulse Ox 97 O2 Delivery Room Air General Appearance: WD/WN, no apparent distress Eyes: bilateral eye normal inspection, bilateral eye PERRL, bilateral eye EOMI Ears: bilateral ear auricle normal, bilateral ear canal normal, bilateral ear TM dull (mild retraction and clear mucoid effusion bilaterally) Nose: normal inspection, No active bleeding, No discharge Mouth/Throat: normal mouth inspection, pharynx normal, No tonsillar exudate Neck: non-tender, full range of motion, supple, normal inspection Respiratory: chest non-tender, lungs clear, normal breath sounds, no respiratory distress, no accessory muscle use Neurologic/Psychiatric: alert, oriented x 3 Progress/Results/Core Measures Results/Orders Lab Results Laboratory Tests Test 10/18/17 02:20 Range/Units Group A Streptococcus Screen NEGATIVE NEGATIVE My Orders Orders - HAMMAD ROACH Rapid Strep A Screen (10/18/17 02:18) Vital Signs/I&O Vital Sign - Last 12Hours 10/18/17 02:10 Temp 97.8 Pulse 93 Resp 18 B/P (MAP) 146/67 (93) Pulse Ox 97 O2 Delivery Room Air Departure Impression Impression: Primary Impression: Pharyngitis, acute Qualified Codes: J02.9 - Acute pharyngitis, unspecified Disposition: 01 HOME, SELF-CARE Condition: Stable Departure-Patient Inst. Decision time for Depature: 02:47 Referrals: [facility] (PCP/Family) Primary Care Physician Patient Instructions: Viral Pharyngitis (DC) Add. Discharge Instructions: Drink plenty of fluids and use vapor rubs such as Vicks or Mentholatum, humidifiers, throat lozenges, Chloraseptic sprays, saltwater gargles as needed for your symptoms. Take couple days of rest on your voice. All discharge instructions reviewed with patient and/or family. Voiced understanding. Scripts No Active Prescriptions or Reported Meds Work/School Note: Work Release Form Date Seen in the Emergency Department: Oct 18, 2017 Return to Work: Oct 19, 2017 Other Restrictions Listed Below: Vocal cord rest until 10/21/17. Minimize talking. Copy Copies To 1: IAIN PARSONS TITUS J Oct 18, 2017 02:25
[2017-10-18 02:57] VITALS: BP 146/67
== END 2017-10-18 02:56 | disposition home or self-care (01) ==
LOC: EDUNIT# 02:08 → ER 02:11
DX: J02.9 Acute pharyngitis, unspecified (principal); E78.00 Pure hypercholesterolemia, unspecified; I10 Essential (primary) hypertension; F41.9 Anxiety disorder, unspecified; F32.9 Major depressive disorder, single episode, unspecified; Z90.49 Acquired absence of other specified parts of digestive tract; Z90.5 Acquired absence of kidney
CPT/HCPCS: 87430; 99282

== ENCOUNTER 2017-11-14 18:15 | Emergency (ER) | payer SELFPAY ==
[~2017-11-14] VITALS: Ht 172.7 cm; Wt 114.8 kg
[2017-11-14] MEDS ORDERED: LACTATED RINGERS 1,000 ML IV ONE (18:35)
[2017-11-14] MEDS ORDERED: D5W IV STA (18:35)
[2017-11-14] MEDS ORDERED: LEVETIRACETAM IV STA (18:35)
--- NOTE | 2017-11-14 18:44 | ED Neurological Problem ---
General Chief Complaint: Neurological Problems Stated Complaint: SEIZURE Nursing Triage Note: PT TO ED PER EMS, STATES SHE HAD A SEIZURE AT HOME, WITNESSED BY SISTER AND DAD. STATES SHE HAS NOT HAD A SEIZURE IN 6 YRS, HAS NOT TAKEN SEIZURE MEDS SINCE SHE WAS 10. IS UNSURE OF HOW LONG THE SEIZURE LASTED Nursing Sepsis Screen: No Definite Risk Source: patient, EMS Exam Limitations: no limitations History of Present Illness Date Seen by Provider: Nov 14, 2017 Time Seen by Provider: 18:31 Initial Comments Patient reports to the ER by EMS with a chief complaint that she was having a migraine headache as well as last week or 2 she's been having a cold and 2 weeks ago she had severe sore throat and had to miss 7 days of work. Her migraine lead to nausea and a shooting pain like sensation in her right arm which made her think it was an aura for her historical seizure disorder. She started feeling weird fell over into her dog's bed and [place] asking her baby sister to call her dad come over immediately she thought she didn't have a seizure and then she said she blacked out. EMS not reports patient to be postictal and they picked her up. Patient did not vomit, bite her tongue, cheek , have any incontinence of bowel or bladder. She is witnessed by her sister and father. She says she has a history of seizures and was on Tegretol when she is a child but he discontinued it at age 10 and told her she didn't need it anymore. She's had one other seizure 6 years ago since then and it occurred after a migraine headache. 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 She is having some nausea but no vomiting. She describes her seizures as petit grand mal. She has plans to establish care in the next 1-2 weeks for her migraine headaches with [facility]. Allergies and Home Medications Allergies Coded Allergies: amoxicillin (Verified Allergy, Unknown, 12/20/15) carbamazepine (Verified Allergy, Unknown, 12/20/15) Penicillins (Unverified Adverse Reaction, Intermediate, 12/20/15) Sulfa (Sulfonamide Antibiotics) (Unverified Adverse Reaction, Intermediate , 12/20/15) Home Medications No Active Prescriptions or Reported Meds Constitutional: see HPI, No chills, No malaise Eyes: Denies Blindness, Denies Drainage Ears, Nose, Mouth, Throat: denies ear pain, denies ear discharge Respiratory: No cough, No phlegm Cardiovascular: No chest pain, No palpitations Gastrointestinal: No abdominal pain, No constipation, No diarrhea, No nausea Genitourinary: No discharge, dysuria : No (not sexually active) Past Qiksxzh-Mbdefs-Pbchpz Hx Patient Social History Alcohol Use: Denies Use Recreational Drug Use: No Smoking Status: Never a Smoker 2nd Hand Smoke Exposure: No Recent Foreign Travel: No Contact w/Someone Who Travel: No Recent Infectious Disease Expo: No Recent Hopitalizations: No Immunizations Up To Date Tetanus Booster (TDap): Unknown PED Vaccines UTD: Yes Date of Pneumonia Vaccine: Apr 19, 2012 Date of Influenza Vaccine: Apr 19, 2012 Seasonal Allergies Seasonal Allergies: Yes Surgeries History of Surgeries: Yes (RIGHT NEPHRECTOMY, BMT'S, TUMOR REMOVAL ROOF OF MOUTH) Surgeries: Adenoidectomy, Ear Surgery, Nephrectomy, Renal, Tonsillectomy Respiratory History of Respiratory Disorde: No Cardiovascular History of Cardiac Disorders: Yes Cardiac Disorders: High Cholesterol, Hypertension Neurological History of Neurological Disord: Yes (LAST SEIZURE @ 9YRS OLD. NO SEIZURE MEDICATIONS FOR YEARS) Neurological Disorders: Headaches /Migraines, Seizure Disorder Reproductive System Hx Reproductive Disorders: No Genitourinary History of Genitourinary Disor: Yes (RIGHT NEPHRECTOMY FOR BENIGN TUMOR INFANT/SMALL CHILD) Gastrointestinal History of Gastrointestinal Di: No Musculoskeletal History of Musculoskeletal Dis: No Endocrine History of Endocrine Disorders: No HEENT History of HEENT Disorders: Yes HEENT Disorders: Chronic Ear Infection Hearing Impairment: Hard of Hearing Cancer History of Cancer: No Psychosocial History of Psychiatric Problem: Yes Behavioral Health Disorders: Anxiety, Depression Integumentary History of Skin or Integumenta: No Blood Transfusions History of Blood Disorders: No Family Medical History Significant Family History: No Pertinent Family Hx Physical Exam Vital Signs Vital Sign - Last 12Hours 11/14/17 18:36 Temp 98.2 Pulse 92 Resp 12 B/P (MAP) 158/102 (120) Capillary Refill : Less Than 3 Seconds General Appearance: WD/WN, no apparent distress (mot post ictal) HEENT: PERRL/EOMI, pharynx normal Neck: supple, normal inspection Respiratory: chest non-tender, lungs clear, normal breath sounds Cardiovascular: normal peripheral pulses, regular rate, rhythm Peripheral Pulses: 2+ Radial Pulses (R), 2+ Radial Pulses (L) Gastrointestinal: normal bowel sounds, non tender, soft Extremities: non-tender, normal capillary refill Neurologic/Psychiatric: alert, oriented x 3 Crainal Nerves: normal hearing, normal speech, PERRL Coordination/Gait: normal finger to nose, normal gait Motor/Sensory: no motor deficit, no sensory deficit, no pronator drift Skin: normal color, warm/dry Progress/Results/Core Measures Results/Orders Lab Results Laboratory Tests Test 11/14/17 18:23 11/14/17 18:51 Range/Units White Blood Count 9.2 4.3-11.0 10^3/uL Red Blood Count 4.44 4.35-5.85 10^6/uL Hemoglobin 12.5 11.5-16.0 G/DL Hematocrit 38 35-52 % Mean Corpuscular Volume 85 80-99 FL Mean Corpuscular Hemoglobin 28 25-34 PG Mean Corpuscular Hemoglobin Concent 33 32-36 G/DL Red Cell Distribution Width 13.8 10.0-14.5 % Platelet Count 337 130-400 10^3/uL Mean Platelet Volume 10.6 H 7.4-10.4 FL Neutrophils (%) (Auto) 70 42-75 % Lymphocytes (%) (Auto) 22 12-44 % Monocytes (%) (Auto) 9 0-12 % Eosinophils (%) (Auto) 0 0-10 % Basophils (%) (Auto) 0 0-10 % Neutrophils # (Auto) 6.4 1.8-7.8 X 10^3 Lymphocytes # (Auto) 2.0 1.0-4.0 X 10^3 Monocytes # (Auto) 0.8 0.0-1.0 X 10^3 Eosinophils # (Auto) 0.0 0.0-0.3 10^3/uL Basophils # (Auto) 0.0 0.0-0.1 10^3/uL Sodium Level 140 135-145 MMOL/L Potassium Level 3.9 3.6-5.0 MMOL/L Chloride Level 105 98-107 MMOL/L Carbon Dioxide Level 24 21-32 MMOL/L Anion Gap 11 5-14 MMOL/L Blood Urea Nitrogen 13 7-18 MG/DL Creatinine 0.74 0.60-1.30 MG/DL Estimat Glomerular Filtration Rate > 60 BUN/Creatinine Ratio 18 Glucose Level 103 70-105 MG/DL Calcium Level 9.0 8.5-10.1 MG/DL Total Bilirubin 0.3 0.1-1.0 MG/DL Aspartate Amino Transf (AST/SGOT) 24 5-34 U/L Alanine Aminotransferase (ALT/SGPT) 30 0-55 U/L Alkaline Phosphatase 68 40-136 U/L C-Reactive Protein High Sensitivity 1.55 H 0.00-0.50 MG/DL Total Protein 6.8 6.4-8.2 GM/DL Albumin 4.0 3.2-4.5 GM/DL Serum Test, Qualitative NEGATIVE NEGATIVE Urine Color YELLOW Urine Clarity CLEAR Urine pH 8 5-9 Urine Specific [place] 1.010 L 1.016-1.022 Urine Protein NEGATIVE NEGATIVE Urine Glucose (UA) NEGATIVE NEGATIVE Urine Ketones NEGATIVE NEGATIVE Urine Nitrite NEGATIVE NEGATIVE Urine Bilirubin NEGATIVE NEGATIVE Urine Urobilinogen NORMAL NORMAL MG/DL Urine Leukocyte Esterase 2+ H NEGATIVE Urine RBC (Auto) NEGATIVE NEGATIVE Urine RBC NONE /HPF Urine WBC 5-10 H /HPF Urine Squamous Epithelial Cells 5-10 /HPF Urine Crystals NONE /LPF Urine Bacteria FEW H /HPF Urine Casts NONE /LPF Urine Mucus NEGATIVE /LPF Urine Culture Indicated YES Group A Streptococcus Screen NEGATIVE NEGATIVE My Orders Orders - HAMMAD ROACH Saline Lock/Iv-Start (11/14/17 18:35) Cbc With Automated Diff (11/14/17 18:35) Comprehensive Metabolic Panel (11/14/17 18:35) Hs C Reactive Protein (11/14/17 18:35) Hcg,Qualitative Serum (11/14/17 18:35) Rapid Strep A Screen (11/14/17 18:35) Ua Culture If Indicated (11/14/17 18:35) Chest Pa/Lat (2 View) (11/14/17 18:35) Saline Lock/Iv-Start (11/14/17 18:35) Lactated Ringers (Lr 1000 Ml Iv Solution (11/14/17 18:35) Levetiracetam Injection (Keppra Injectio (11/14/17 18:35) Prochlorperazine Injection (Compazine In (11/14/17 18:45) Sumatriptan Injection (Imitrex Injection (11/14/17 18:45) Urine Culture (11/14/17 18:51) Medications Given in ED Current Medications Medications Dose Ordered Sig/Kayode Route Start Time Stop Time Status Last Admin Dose Admin Lactated Ringer's 1,000 ml @ 0 mls/hr Q0M ONCE IV 11/14/17 18:35 11/14/17 18:42 DC 11/14/17 19:00 999 MLS/HR Prochlorperazine Edisylate 10 mg ONCE ONCE IV 11/14/17 18:45 11/14/17 18:46 DC 11/14/17 19:00 10 MG Sumatriptan Succinate 6 mg ONCE ONCE SQ 11/14/17 18:45 11/14/17 18:46 DC 11/14/17 19:00 6 MG Vital Signs/I&O Vital Sign - Last 12Hours 11/14/17 18:36 Temp 98.2 Pulse 92 Resp 12 B/P (MAP) 158/102 (120) Blood Pressure Mean: 120 Progress Note : Time: 20:33 Progress Note Questionable seizure-like activity. We'll cast net looking for any evidence of infection and get her set up to follow up with her primary care physician outpatient. Departure Impression Impression: Primary Impression: Urinary tract infection Qualified Codes: N30.00 - Acute cystitis without hematuria Additional Impression: Observed seizure-like activity Disposition: 01 HOME, SELF-CARE Condition: Stable Departure-Patient Inst. Decision time for Depature: 20:33 Referrals: [facility] (PCP/Family) Primary Care Physician Patient Instructions: Urinary Tract Infection, Adult (DC) Add. Discharge Instructions: Drink lots of fluids and take your Macrobid one capsule twice a day to completion. Plan to follow up in the next 1-2 weeks with your primary care physician to discuss your seizure like activity and what management needs to be done. All discharge instructions reviewed with patient and/or family. Voiced understanding. No driving for the next year until cleared by your neurologist or primary care physician. Scripts Nitrofurantoin Macrocrystal (Nitrofurantoin) 100 Mg Capsule 100 MG PO BID for 7 Days, #14 CAP 0 Refills Prov: HAMMAD ROACH 11/14/17 Work/School Note: Work Release Form Date Seen in the Emergency Department: Nov 14, 2017 Return to Work: Nov 15, 2017 Restrictions: No Restrictions Copy Copies To 1: IAIN PARSONS TITUS J Nov 14, 2017 18:44
[2017-11-14 18:45] LABS: BASOPHILS % (AUTO) 0 % (0-10); EOSINOPHILS % (AUTO) 0 % (0-10); HEMATOCRIT 38 % (35-52); HEMOGLOBIN 12.5 G/DL (11.5-16.0); LYMPHOCYTES % (AUTO) 22 % (12-44); MEAN CORPUSCULAR HEMOGLOBIN 28 PG (25-34); MEAN CORPUSCULAR HGB CONC 33 G/DL (32-36); MEAN CORPUSCULAR VOLUME 85 FL (80-99); MEAN PLATELET VOLUME 10.6 FL (7.4-10.4); MONOCYTES # (AUTO) 0.8 X 10^3 (0.0-1.0); MONOCYTES % (AUTO) 9 % (0-12); NEUTROPHILS # (AUTO) 6.4 X 10^3 (1.8-7.8); NEUTROPHILS % (AUTO) 70 % (42-75); PLATELET COUNT 337 10^3/uL (130-400); RED BLOOD COUNT 4.44 10^6/uL (4.35-5.85); RED CELL DISTRIBUTION WIDTH 13.8 % (10.0-14.5); WHITE BLOOD COUNT 9.2 10^3/uL (4.3-11.0)
[2017-11-14] MEDS ORDERED: PROCHLORPERAZINE 10 MG/2ML INJ (COMPAZINE) IV ONE (18:45)
[2017-11-14] MEDS ORDERED: SUMAtriptan 6 MG/0.5 ML (IMITREX) INJ SQ ONE (18:45)
[2017-11-14 18:59] LABS: ALANINE AMINOTRANSFERASE 30 U/L (0-55); ALKALINE PHOSPHATASE 68 U/L (40-136); BILIRUBIN,TOTAL 0.3 MG/DL (0.1-1.0); BUN/CREATININE RATIO 18; CARBON DIOXIDE 24 MMOL/L (21-32); CHLORIDE 105 MMOL/L (98-107); CREATININE SERUM 0.74 MG/DL (0.60-1.30); GFR ESTIMATED > 60; GLUCOSE 103 MG/DL (70-105); POTASSIUM 3.9 MMOL/L (3.6-5.0); SODIUM 140 MMOL/L (135-145); TOTAL PROTEIN 6.8 GM/DL (6.4-8.2)
[2017-11-14 19:03] LABS: BILIRUBIN,URINE NEGATIVE (NEGATIVE); CLARITY,URINE CLEAR; COLOR,URINE YELLOW; GLUCOSE, URINE (UA) NEGATIVE (NEGATIVE); KETONES,URINE NEGATIVE (NEGATIVE); LEUKOCYTE ESTERASE ,URINE 2+ (NEGATIVE); NITRITE,URINE NEGATIVE (NEGATIVE); PH,URINE 8 (5-9); PROTEIN,URINE NEGATIVE (NEGATIVE); UROBILINOGEN,URINE NORMAL (NORMAL)
[2017-11-14 19:09] LABS: BACTERIA,URINE FEW /HPF
--- NOTE | 2017-11-14 19:43 | Diagnostic Imaging Report ---
INDICATION: Seizures. PA and lateral chest. FINDINGS: Heart size and pulmonary vascularity are normal. Lungs are clear. There are no effusions or pneumothoraces. IMPRESSION: Negative chest. Dictated by: Dictated on workstation # [id number]
[2017-11-14] MEDS ORDERED: NITR100C PO (20:35)
[2017-11-14 20:55] VITALS: BP 138/91
--- OUTSIDE RECORDS SUMMARY | 2017-11-16 09:24 | XMS REPORT ---
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 Active 073290624 Problem Acne L70.9 Active 00279708 Problem Routine health maintenance Z00.00 Active 372549431 Problem Non compliance w medication regimen Z91.14 Active 117942007 Problem Acute otitis externa of both ears, unspecified type H60.503 Active 42103427 Problem Metabolic syndrome E88.81 Active 81115828 Problem Family history of diabetes mellitus Z83.3 Active 814852376 Problem High blood pressure (not hypertension) R03.0 Active 264983590 Problem Episodic tension-type headache, not intractable G44.219 Active 485191878 ALLERGIES Substance Reaction Event Type Date Status Tegretol Unknown Drug Allergy February, Active Sulfamethoxazole-Trimethoprim Unknown Drug Allergy February, Active Penicillin V Potassium Unknown Drug Allergy February, Active Keppra Unknown Drug Allergy February, Active SOCIAL HISTORY Never Assessed PLAN OF CARE Activity Details Follow Up prn Reason: VITAL SIGNS Height 65 in 2017-03-09 Temperature 99.4 degrees Fahrenheit 2017-03-09 Heart Rate 88 bpm 2017-03-09 Respiratory Rate 2017-03-09 Blood pressure systolic 142 mmHg 2017-03-09 Blood pressure diastolic 100 mmHg 2017-03-09 MEDICATIONS Medication Instructions Dosage Frequency Start Date End Date Duration Status Zyrtec Allergy 10 MG Orally Once a day 1 tablet 24h February, Mar, 30 day(s) Active Keflex 500 MG Orally every 12 hrs 1 capsule 12h February, February, 10 day(s) Active RESULTS Name Result Date Reference Range STREP A (IN HOUSE) 2017-03-09 STREP A positive Control + Lot # [id number] Exp date PROCEDURES Procedure Date Ordered Result Body Site STREP A ASSAY W/OPTIC March 09, 2017 IMMUNIZATIONS No Known Immunizations MEDICAL (GENERAL) HISTORY Type Description Date Medical History Depression Medical History Epilepsy Medical History [place] in Left ear Surgical History 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
--- OUTSIDE RECORDS SUMMARY | 2017-11-16 09:29 | XMS REPORT | Continuity of Care Document ---
Author Author [facility] Address Unknown Phone Unavailable Allergies Active Description Code Type Severity Reaction Onset Reported/Identified Relationship to Patient Clinical Status Yes Penicillins Drug Allergy N/A N/A 06/27/2012 Yes Sulfa(Sulfonamide Antibiotics) Drug Allergy N/A N/A 06/27/2012 Yes Tegretol Drug Allergy N/A N/A 06/27/2012 Yes Keppra 500 mg tablet Drug Allergy N/A N/A 07/06/2012 Yes Penicillins [id number] Drug Allergy Moderate N/A 12/20/2015 Yes Sulfa (Sulfonamide Antibiotics) [id number] Drug Allergy Moderate N/A 2015 Yes amoxicillin [id number] Drug Allergy Unknown N/A 12/20/2015 Yes carbamazepine [id number] Drug Allergy Unknown N/A 12/20/2015 Medications There is no data. Problems Date Dx Coded Attending Type Code Diagnosis Diagnosed By 06/27/2012 GEOFF REED APRN 345.00 GENERALIZED NONCONVULSIVE EPILEPSY WITHOUT INTRACTABLE EPILEPSY 06/27/2012 NOEL MEYERS APRN 345.00 GENERALIZED NONCONVULSIVE EPILEPSY WITHOUT INTRACTABLE EPILEPSY 06/27/2012 SILVER SAVAGE MD 345.00 GENERALIZED NONCONVULSIVE EPILEPSY WITHOUT INTRACTABLE EPILEPSY 06/27/2012 NOEL MEYERS APRN 345.00 GENERALIZED NONCONVULSIVE EPILEPSY WITHOUT INTRACTABLE EPILEPSY 06/27/2012 GEOFF REED APRN 345.00 GENERALIZED NONCONVULSIVE EPILEPSY WITHOUT INTRACTABLE EPILEPSY 06/27/2012 NOEL MEYERS APRN 345.00 GENERALIZED NONCONVULSIVE EPILEPSY WITHOUT INTRACTABLE EPILEPSY 06/27/2012 345.00 GENERALIZED NONCONVULSIVE EPILEPSY WITHOUT INTRACTABLE EPILEPSY 07/11/2012 Ot 780.39 OTHER CONVULSIONS 07/11/2012 Ot 781.0 ABN INVOLUN MOVEMENT NEC 08/21/2012 Ot 599.0 URIN TRACT INFECTION NOS 08/21/2012 Ot 922.2 CONTUSION ABDOMINAL WALL 08/21/2012 Ot 959.12 OTH INJURY OF ABDOMEN 08/21/2012 Ot E000.8 OTHER EXTERNAL CAUSE STATUS 08/21/2012 Ot E019.0 ACTIVITIES INVOLVING WALKING AN ANIMAL 08/21/2012 Ot E888.9 FALL NOS 09/21/2012 Ot 465.9 ACUTE URI NOS 09/21/2012 Ot 786.2 COUGH 09/20/2013 GEOFF REED APRN R 692.9 CONTACT DERMATITIS AND OTHER ECZEMA UNSPECIFIED CAUSE 09/20/2013 MALIA MEYERS APRNCY N 692.9 CONTACT DERMATITIS AND OTHER ECZEMA UNSPECIFIED CAUSE 09/20/2013 SILVER SAVAGE MD 692.9 CONTACT DERMATITIS AND OTHER ECZEMA UNSPECIFIED CAUSE 09/20/2013 MALIA MEYERS APRNCY N 692.9 CONTACT DERMATITIS AND OTHER ECZEMA UNSPECIFIED CAUSE 09/20/2013 GEOFF REED APRN R 692.9 CONTACT DERMATITIS AND OTHER ECZEMA UNSPECIFIED CAUSE 09/20/2013 MALIA MEYERS APRNCY N 692.9 CONTACT DERMATITIS AND OTHER ECZEMA UNSPECIFIED CAUSE 09/20/2013 692.9 CONTACT DERMATITIS AND OTHER ECZEMA UNSPECIFIED CAUSE 09/30/2013 JOSE BYNUM APRN NOEL N V58.69 LONG-TERM (CURRENT) USE OF OTHER MEDICATIONS 09/30/2013 JOSE BYNUM APRN NOEL N V67.9 UNSPECIFIED FOLLOW-UP EXAMINATION 09/30/2013 SILVER SAVAGE MD V58.69 LONG-TERM (CURRENT) USE OF OTHER MEDICATIONS 09/30/2013 SILVER SAVAGE MD V67.9 UNSPECIFIED FOLLOW-UP EXAMINATION 09/30/2013 JOSE BYNUM APRN NOEL N V58.69 LONG-TERM (CURRENT) USE OF OTHER MEDICATIONS 09/30/2013 JOSE BYNUM APRN NOEL N V67.9 UNSPECIFIED FOLLOW-UP EXAMINATION 09/30/2013 GEOFF REED APRN R V58.69 LONG-TERM (CURRENT) USE OF OTHER MEDICATIONS 09/30/2013 GEOFF REED APRN R V67.9 UNSPECIFIED FOLLOW-UP EXAMINATION 09/30/2013 JOSE BYNUM APRN NOEL N V58.69 LONG-TERM (CURRENT) USE OF OTHER MEDICATIONS 09/30/2013 JOSE BYNUM APRN NOEL N V67.9 UNSPECIFIED FOLLOW-UP EXAMINATION 09/30/2013 V58.69 LONG-TERM ( CURRENT) USE OF OTHER MEDICATIONS 09/30/2013 V67.9 UNSPECIFIED FOLLOW-UP EXAMINATION 10/26/2013 SILVER SAVAGE MD 380.4 IMPACTED CERUMEN 10/26/2013 SILVER SAVAGE MD 465.9 ACUTE UPPER RESPIRATORY INFECTIONS OF UNSPECIFIED SITE 10/26/2013 GARCIA CASHERO STAFF DEVELOPMENT COORDINATOR, NOEL N 380.4 IMPACTED CERUMEN 10/26/2013 GARCIA CASHERO STAFF DEVELOPMENT COORDINATOR, NOEL N 465.9 ACUTE UPPER RESPIRATORY INFECTIONS OF UNSPECIFIED SITE 10/26/2013 REED STAFF DEVELOPMENT COORDINATOR, GEOFF R 380.4 IMPACTED CERUMEN 10/26/2013 REED STAFF DEVELOPMENT COORDINATOR, GEOFF R 465.9 ACUTE UPPER RESPIRATORY INFECTIONS OF UNSPECIFIED SITE 10/26/2013 GARCIA CASHERO STAFF DEVELOPMENT COORDINATOR, NOEL N 380.4 IMPACTED CERUMEN 10/26/2013 GARCIA CASHERO STAFF DEVELOPMENT COORDINATOR, NOEL N 465.9 ACUTE UPPER RESPIRATORY INFECTIONS OF UNSPECIFIED SITE 10/26/2013 380.4 IMPACTED CERUMEN 10/26/2013 465.9 ACUTE UPPER RESPIRATORY INFECTIONS OF UNSPECIFIED SITE 11/01/2013 GARCIA CASHERO STAFF DEVELOPMENT COORDINATOR, NOEL N 278.00 OBESITY 11/01/2013 GARCIA CASHERO STAFF DEVELOPMENT COORDINATOR, NOEL N 626.0 AMENORRHEA 11/01/2013 BRIANNA LONGON, GEOFF R 278.00 OBESITY 11/01/2013 REED STAFF DEVELOPMENT COORDINATOR, GEOFF R 626.0 AMENORRHEA 11/01/2013 GARCIA CASHERO STAFF DEVELOPMENT COORDINATOR, NOEL N 278.00 OBESITY 11/01/2013 GARCIA CASHERO STAFF DEVELOPMENT COORDINATOR, NOEL N 626.0 AMENORRHEA 11/01/2013 278.00 OBESITY 11/01/2013 626.0 AMENORRHEA 11/02/2013 GARCIA CASHERO STAFF DEVELOPMENT COORDINATOR, NOEL N 784.49 OTHER VOICE AND RESONANCE DISORDERS 11/02/2013 GARCIA CASHERO STAFF DEVELOPMENT COORDINATOR, NOEL N 786.2 COUGH 11/02/2013 BRIANNA LONGON GEOFF R 784.49 OTHER VOICE AND RESONANCE DISORDERS 11/02/2013 BRIANNA LONGON GEOFF R 786.2 COUGH 11/02/2013 GARCIA CASHERO STAFF DEVELOPMENT COORDINATOR NOEL N 784.49 OTHER VOICE AND RESONANCE DISORDERS 11/02/2013 GARCIA CASHERO STAFF DEVELOPMENT COORDINATOR, NOEL N 786.2 COUGH 11/02/2013 784.49 OTHER VOICE AND RESONANCE DISORDERS 11/02/2013 786.2 COUGH 11/04/2013 BASILIO CANALES Ot 466.0 ACUTE BRONCHITIS 11/04/2013 BASILIO CANALES Ot 786.2 COUGH 02/01/2014 JUAN LUIS HOLLINS, STEF T Ot 346.90 MIGRAINE UNSPECIFIED W/O INTRACT MGRN W/ 02/12/2014 BRENDAN HOLLINS, DELISA A Ot 346.90 MIGRAINE UNSPECIFIED W/O INTRACT MGRN W/ 02/12/2014 BRENDAN HOLLINS, DELISA A Ot 784.0 HEADACHE 02/14/2014 BRENDAN HOLLINS, DELISA A Ot 346.90 MIGRAINE UNSPECIFIED W/O INTRACT MGRN W/ 02/14/2014 BRENDAN HOLLINS, DELISA A Ot 784.0 HEADACHE 04/04/2014 SHAQ OLSEN DO Ot 784.0 HEADACHE 04/06/2014 BRIANNA LONGON, GEOFF R 345.80 OTHER FORMS OF EPILEPSY AND RECURRENT SEIZURES WITHOUT MENTION OF INTRACTABLE EPILEPSY 04/06/2014 BRIANNA LONGON, GEOFF R 368.8 OTHER SPECIFIED VISUAL DISTURBANCES 04/06/2014 REED STAFF DEVELOPMENT COORDINATOR, GEOFF R 784.0 HEADACHE 04/06/2014 REED STAFF DEVELOPMENT COORDINATOR, GEOFF R 787.02 NAUSEA ALONE 04/06/2014 REED STAFF DEVELOPMENT COORDINATOR, GEOFF R 787.03 VOMITING ALONE 04/06/2014 GARCIA MISA STAFF DEVELOPMENT COORDINATOR, NOEL N 345.80 OTHER FORMS OF EPILEPSY AND RECURRENT SEIZURES WITHOUT MENTION OF INTRACTABLE EPILEPSY 04/06/2014 GARCIA MISA STAFF DEVELOPMENT COORDINATOR, NOEL N 368.8 OTHER SPECIFIED VISUAL DISTURBANCES 04/06/2014 GARCIA CASHERO STAFF DEVELOPMENT COORDINATOR, NOEL N 784.0 HEADACHE 04/06/2014 GARCIA CASHERO STAFF DEVELOPMENT COORDINATOR, NOEL N 787.02 NAUSEA ALONE 04/06/2014 GARCIA CASHERO STAFF DEVELOPMENT COORDINATOR, NOEL N 787.03 VOMITING ALONE 04/06/2014 345.80 OTHER FORMS OF EPILEPSY AND RECURRENT SEIZURES WITHOUT MENTION OF INTRACTABLE EPILEPSY 04/06/2014 368.8 OTHER SPECIFIED VISUAL DISTURBANCES 04/06/2014 784.0 HEADACHE 04/06/2014 787.02 NAUSEA ALONE 04/06/2014 787.03 VOMITING ALONE 07/24/2014 BASILIO CANALES Ot 462 ACUTE PHARYNGITIS 07/24/2014 BASILIO CANALES Ot 464.00 ACUTE LARYNGITIS W/O OBSTRUCTION 07/24/2014 BASILIO CANALES Ot 466.0 ACUTE BRONCHITIS 09/29/2014 BRENDAN HOLLINS, DELISA Iglesias Ot 784.0 HEADACHE 09/29/2014 BRENDAN HOLLINS, DELISA Iglesias Ot 787.03 VOMITING ALONE 03/24/2015 CELIA HUGHES APRN Ot 462 ACUTE PHARYNGITIS 03/24/2015 CELIA HUGHES APRN Ot 466.0 ACUTE BRONCHITIS 05/16/2015 RAÚL PADMINIA K Ot 784.0 HEADACHE 06/21/2015 ANTONIA BARNES DO Ot 382.9 OTITIS MEDIA NOS 06/21/2015 ANTONIA BARNES DO Ot 388.70 OTALGIA NOS 06/24/2015 CELIA HUGHES APRN Ot 382.9 OTITIS MEDIA NOS 06/24/2015 CELIA HUGHES APRN Ot 388.70 OTALGIA NOS 09/03/2015 RONDA CHASE MD Ot H92.09 OTALGIA, UNSPECIFIED EAR 09/03/2015 RONDA CHASE MD Ot J02.9 ACUTE PHARYNGITIS, UNSPECIFIED 09/03/2015 RONDA CHASE MD Ot R05 COUGH 10/14/2015 PADMINI OLSEN DOA Geo Ot N39.0 URINARY TRACT INFECTION, SITE NOT SPECIF 10/14/2015 SHAQ OLSEN DO Ot Z90.5 ACQUIRED ABSENCE OF KIDNEY 11/26/2015 BASILIO CANALES Ot G43.909 MIGRAINE, UNSP, NOT INTRACTABLE, WITHOUT 11/26/2015 BASILIO CANALES Ot N39.0 URINARY TRACT INFECTION, SITE NOT SPECIF 12/04/2015 CELIA HUGHES STAFF DEVELOPMENT COORDINATOR Ot N61 INFLAMMATORY DISORDERS OF BREAST 12/16/2015 BASILIO CANALES Ot J20.9 ACUTE BRONCHITIS, UNSPECIFIED 12/16/2015 BASILIO CANALES Ot R11.2 NAUSEA WITH VOMITING, UNSPECIFIED 12/16/2015 CELIA HUGHES APRN Ot N61 12/20/2015 STEF MCKNIGHT MD Ot E78.0 PURE HYPERCHOLESTEROLEMIA 12/20/2015 BRUEGGEMANN MD, STEF T Ot F41.9 ANXIETY DISORDER, UNSPECIFIED 12/20/2015 JUAN LUIS HOLLINS, STEF Ortega Ot I10 ESSENTIAL (PRIMARY) HYPERTENSION 12/20/2015 JUAN LUIS HOLLINS, STEF Ortega Ot R07.89 OTHER CHEST PAIN 12/20/2015 JUAN LUIS HOLLINS, STEF Ortega Ot Z79.899 OTHER CORRECTION (CURRENT) DRUG THERAPY 02/16/2016 CELIA HUGHES STAFF DEVELOPMENT COORDINATOR Ot N39.0 URINARY TRACT INFECTION, SITE NOT SPECIF 02/16/2016 CELIA HUGHES STAFF DEVELOPMENT COORDINATOR Ot R51 HEADACHE 02/19/2016 CELIA HUGHES STAFF DEVELOPMENT COORDINATOR Ot N39.0 URINARY TRACT INFECTION, SITE NOT SPECIF 02/19/2016 CELAI HUGHES STAFF DEVELOPMENT COORDINATOR Ot R51 HEADACHE 04/30/2016 CELIA HUGHSE STAFF DEVELOPMENT COORDINATOR Ot R51 HEADACHE 05/01/2016 CELIA HUGHES STAFF DEVELOPMENT COORDINATOR Ot R51 HEADACHE 05/10/2016 CELIA HUGHES STAFF DEVELOPMENT COORDINATOR Ot H66.91 OTITIS MEDIA, UNSPECIFIED, RIGHT EAR 05/10/2016 CELIA HUGHES STAFF DEVELOPMENT COORDINATOR Ot H92.01 OTALGIA, RIGHT EAR 05/13/2016 CELIA HUGHES STAFF DEVELOPMENT COORDINATOR Ot H66.91 OTITIS MEDIA, UNSPECIFIED, RIGHT EAR 05/13/2016 CELIA HUGHES STAFF DEVELOPMENT COORDINATOR Ot H92.01 OTALGIA, RIGHT EAR 07/04/2016 JUNO ABRAHAM MD Ot J04.0 ACUTE LARYNGITIS 07/04/2016 JUNO ABRAHAM MD Ot J06.9 ACUTE UPPER RESPIRATORY INFECTION, UNSPE 07/04/2016 JUNO ABRAHAM MD Ot R05 COUGH 07/04/2016 JUNO ABRAHAM MD Ot R50.9 FEVER, UNSPECIFIED 07/09/2016 JUNO ABRAHAM MD Ot J04.0 ACUTE LARYNGITIS 07/09/2016 JUNO ABRAHAM MD Ot J06.9 ACUTE UPPER RESPIRATORY INFECTION, UNSPE 07/09/2016 JUNO ABRAHAM MD Ot R05 COUGH 07/09/2016 JUNO ABRAHAM MD Ot R50.9 FEVER, UNSPECIFIED 07/11/2016 JUNO ABRAHAM MD Ot J04.0 ACUTE LARYNGITIS 07/11/2016 JUNO ABRAHAM MD Ot J06.9 ACUTE UPPER RESPIRATORY INFECTION, UNSPE 07/11/2016 JUNO ABRAHAM MD Ot R05 COUGH 07/11/2016 JUNO ABRAHAM MD Ot R50.9 FEVER, UNSPECIFIED 10/25/2016 NEPTALI HOLLINS, KAMI Milton Ot 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, LEFT 10/25/2016 NEPTALI HOLLINS, KAMI Milton Ot H57.9 UNSPECIFIED DISORDER OF EYE AND ADNEXA 10/25/2016 NEPTALI HOLLINS, KAMI Milton Ot 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, LEFT 10/25/2016 NEPTALI HOLLINS, KAMI Milton Ot H57.9 UNSPECIFIED DISORDER OF EYE AND ADNEXA 12/21/2016 BASILIO CANALES Ot I10 ESSENTIAL (PRIMARY) HYPERTENSION 12/21/2016 BASILIO CANALES Ot J02.9 ACUTE PHARYNGITIS, UNSPECIFIED 12/21/2016 BASILIO CANALES Ot J10.1 FLU DUE TO OTH IDENT INFLUENZA VIRUS W O 12/21/2016 BASILIO CANALES Ot Z79.899 OTHER SUPERVISOR SCREEN PRINTING (CURRENT) DRUG THERAPY 12/21/2016 BASILIO CANALES Ot Z90.5 ACQUIRED ABSENCE OF KIDNEY 12/23/2016 BASILIO CANALES Ot I10 ESSENTIAL (PRIMARY) HYPERTENSION 12/23/2016 BASILIO CANALES Ot J02.9 ACUTE PHARYNGITIS, UNSPECIFIED 12/23/2016 BASILIO CANALES Ot J10.1 FLU DUE TO OTH IDENT INFLUENZA VIRUS W O 12/23/2016 BASILIO CANALES Ot Z79.899 OTHER CORRECTION (CURRENT) DRUG THERAPY 12/23/2016 BASILIO CANALES Ot Z90.5 ACQUIRED ABSENCE OF KIDNEY 12/27/2016 BASILIO CANALES Ot I10 ESSENTIAL (PRIMARY) HYPERTENSION 12/27/2016 BASILIO CANALES Ot J02.9 ACUTE PHARYNGITIS, UNSPECIFIED 12/27/2016 BASILIO CANALES Ot J10.1 FLU DUE TO OTH IDENT INFLUENZA VIRUS W O 12/27/2016 BASILIO CANALES Ot Z79.899 OTHER CORRECTION (CURRENT) DRUG THERAPY 12/27/2016 BASILIO CANALES Ot Z90.5 ACQUIRED ABSENCE OF KIDNEY 03/12/2017 BASILIO CANALES Ot I10 ESSENTIAL (PRIMARY) HYPERTENSION 03/12/2017 BASILIO CANALES Ot J02.0 STREPTOCOCCAL PHARYNGITIS 03/12/2017 BASILIO CANALES Ot J02.9 ACUTE PHARYNGITIS, UNSPECIFIED 03/12/2017 BASILIO CANALES Ot Z90.5 ACQUIRED ABSENCE OF KIDNEY 03/13/2017 BASILIO CANALES Ot I10 ESSENTIAL (PRIMARY) HYPERTENSION 03/13/2017 BASILIO CANALES Ot J02.0 STREPTOCOCCAL PHARYNGITIS 03/13/2017 BASILIO CANALES Ot J02.9 ACUTE PHARYNGITIS, UNSPECIFIED 03/13/2017 BASILIO CANALES Ot Z90.5 ACQUIRED ABSENCE OF KIDNEY 08/08/2017 BASILIO CANALES Ot F32.9 MAJOR DEPRESSIVE DISORDER, SINGLE EPISOD 08/08/2017 BASILIO CANALES Ot F41.9 ANXIETY DISORDER, UNSPECIFIED 08/08/2017 BASILIO CANALES Ot G40.909 EPILEPSY, UNSP, NOT INTRACTABLE, WITHOUT 08/08/2017 BASILIO CANALES Ot G43.909 MIGRAINE, UNSP, NOT INTRACTABLE, WITHOUT 08/08/2017 BASILIO CANALES Ot I10 ESSENTIAL (PRIMARY) HYPERTENSION 08/08/2017 BASILIO CANALES Ot J02.9 ACUTE PHARYNGITIS, UNSPECIFIED 08/08/2017 BASILIO CANALES Ot J20.9 ACUTE BRONCHITIS, UNSPECIFIED 08/08/2017 BASILIO CANALES Ot Z90.5 ACQUIRED ABSENCE OF KIDNEY 2017 RAÚL DO, SHAQ K Ot E78.00 PURE HYPERCHOLESTEROLEMIA, UNSPECIFIED 2017 RAÚL DO, SHAQ K Ot F32.9 MAJOR DEPRESSIVE DISORDER, SINGLE EPISOD 2017 RAÚL DO, SHAQ K Ot F41.9 ANXIETY DISORDER, UNSPECIFIED 2017 RAÚL DO, SHAQ K Ot G40.909 EPILEPSY, UNSP, NOT INTRACTABLE, WITHOUT 2017 RAÚL DO, SHAQ K Ot G43.909 MIGRAINE, UNSP, NOT INTRACTABLE, WITHOUT 2017 RAÚL DO, SHAQ K Ot I10 ESSENTIAL (PRIMARY) HYPERTENSION 2017 SHAQ OLSEN DO Ot N39.0 URINARY TRACT INFECTION, SITE NOT SPECIF 2017 SHAQ OLSEN DO Ot R10.84 GENERALIZED ABDOMINAL PAIN 2017 SHAQ OLSEN DO Ot Z90.5 ACQUIRED ABSENCE OF KIDNEY 2017 SHAQ OLSEN DO Ot Z90.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 10/18/2017 HAMMAD ROACH MD Ot E78.00 PURE HYPERCHOLESTEROLEMIA, UNSPECIFIED 10/18/2017 HAMMAD ROACH MD Ot F32.9 MAJOR DEPRESSIVE DISORDER, SINGLE EPISOD 10/18/2017 HAMMAD ROACH MD Ot F41.9 ANXIETY DISORDER, UNSPECIFIED 10/18/2017 HAMMAD ROACH MD Ot I10 ESSENTIAL (PRIMARY) HYPERTENSION 10/18/2017 HAMMAD ROACH MD Ot J02.9 ACUTE PHARYNGITIS, UNSPECIFIED 10/18/2017 HAMMAD ROAHC MD Ot Z90.49 ACQUIRED ABSENCE OF OTHER SPECIFIED PART 10/18/2017 HAMMAD ROACH MD Ot Z90.5 ACQUIRED ABSENCE OF KIDNEY Procedures Code Description [place] [address] ROUTINE VENIPUNCTURE 09/30/2013 86644 CMP 09/30/2013 90435 CREATININE 09/30/2013 39516 BUN 09/30/2013 [id number] GFR CALC (RESULT ONLY) 09/30/2013 66404 CBC 10/01/2013 56823 EAR LAVAGE 10/26/2013 43992 ROUTINE VENIPUNCTURE 11/01/2013 20429 TEST, URINE (IN- HOUSE) 11/01/2013 15974 A1C (RML) 11/01/2013 05504 PROLACTIN 11/01/2013 99068 TSH 11/01/2013 38569 TESTOSTERONE TOTAL-WOMEN & CHILDREN 11/02/2013 Goyo Cote 04/12/2014 Results Test Result Range Streptococcus pyogenes antigen detection - 12/21/16 12:30 Streptococcus pyogenes antigen detection NEGATIVE NEGATIVE Bacterial throat culture - 12/21/16 12:30 Bacterial throat culture [facility] Streptococcus pyogenes antigen detection - 08/08/17 20:55 Streptococcus pyogenes antigen detection NEGATIVE NEGATIVE Bacterial throat culture - 08/08/17 20:55 Bacterial throat culture [facility] NR Complete urinalysis with reflex to culture - 09/18/17 00:45 Urine color determination RED NRG Urine clarity determination BLOODY NRG Urine pH measurement by test strip 5 5-9 Specific gravity of urine by test strip 1.030 1.016- 1.022 Urine protein assay by test strip, semi-quantitative 3+ NEGATIVE Urine glucose detection by automated test strip NEGATIVE NEGATIVE Erythrocytes detection in urine sediment by light microscopy 5+ NEGATIVE Urine ketones detection by automated test strip NEGATIVE NEGATIVE Urine nitrite detection by test strip NEGATIVE NEGATIVE Urine total bilirubin detection by test strip NEGATIVE NEGATIVE Urine urobilinogen measurement by automated test strip (mass/volume) NORMAL NORMAL Urine leukocyte esterase detection by dipstick 2+ NEGATIVE Automated urine sediment erythrocyte count by microscopy (number/high power field) > [HPF] NRG Automated urine sediment leukocyte count by microscopy (number/high power field ) [HPF] NRG Bacteria detection in urine sediment by light microscopy MODERATE NRG Squamous epithelial cells detection in urine sediment by light microscopy 0-2 NRG Crystals detection in urine sediment by light microscopy PRESENT NRG Casts detection in urine sediment by light microscopy NONE NRG Mucus detection in urine sediment by light microscopy NEGATIVE NRG Complete urinalysis with reflex to culture YES NRG Calcium oxalate crystals detection in urine sediment by light microscopy FEW NRG Bacterial urine culture - 09/18/17 00:45 Bacterial urine culture [id number] NRG COLONY COUNT 10,000/ML - 100,000/ML NRG FTX;REPORTABLE PLUS, NRG FREE TEXT ENTRY 2 MIXED GRAM POSITIVES <10,000 NRG FREE TEXT ENTRY 3 >3 ISOLATES NRG Streptococcus pyogenes antigen detection - 10/18/17 02:20 Streptococcus pyogenes antigen detection NEGATIVE NEGATIVE Bacterial throat culture - 10/18/17 02:20 Bacterial throat culture NBS NRG Complete blood count (CBC) with automated white blood cell (WBC) differential - 11/14/17 18:23 Blood leukocytes automated count (number/volume) 9.2 10*3/uL 4.3-11.0 Blood erythrocytes automated count (number/volume) 4.44 10*6/uL 4.35-5.85 Venous blood hemoglobin measurement (mass/volume) 12.5 g/dL 11.5-16.0 Blood hematocrit (volume fraction) 38 % 35-52 Automated erythrocyte mean corpuscular volume 85 [foz_us] 80-99 Automated erythrocyte mean corpuscular hemoglobin (mass per erythrocyte) 28 pg 25-34 Automated erythrocyte mean corpuscular hemoglobin concentration measurement ( mass/volume) 33 g/dL 32-36 Automated erythrocyte distribution width ratio 13.8 % 10.0-14.5 Automated blood platelet count (count/volume) 337 10*3/uL 130-400 Automated blood platelet mean volume measurement 10.6 [foz_us] 7.4-10.4 Automated blood neutrophils/100 leukocytes 70 % 42-75 Automated blood lymphocytes/100 leukocytes 22 % 12-44 Blood monocytes/100 leukocytes 9 % 0-12 Automated blood eosinophils/100 leukocytes 0 % 0-10 Automated blood basophils/100 leukocytes 0 % 0-10 Blood neutrophils automated count (number/volume) 6.4 10*3 1.8-7.8 Blood lymphocytes automated count (number/volume) 2.0 10*3 1.0-4.0 Blood monocytes automated count (number/volume) 0.8 10*3 0.0-1.0 Automated eosinophil count 0.0 10*3/uL 0.0-0.3 Automated blood basophil count (count/volume) 0.0 10*3/uL 0.0-0.1 Serum or plasma choriogonadotropin ( test) detection - 11/14/17 18:23 Serum or plasma choriogonadotropin ( test) detection NEGATIVE NEGATIVE Comprehensive metabolic panel - 11/14/17 18:23 Serum or plasma sodium measurement (moles/volume) 140 mmol/L 135-145 Serum or plasma potassium measurement (moles/volume) 3.9 mmol/L 3.6-5.0 Serum or plasma chloride measurement (moles/volume) 105 mmol/L 98-107 Carbon dioxide 24 mmol/L 21-32 Serum or plasma anion gap determination (moles/volume) 11 mmol/L 5-14 Serum or plasma urea nitrogen measurement (mass/volume) 13 mg/dL 7-18 Serum or plasma creatinine measurement (mass/volume) 0.74 mg/dL 0.60-1.30 Serum or plasma urea nitrogen/creatinine mass ratio 18 NRG Serum or plasma creatinine measurement with calculation of estimated glomerular filtration rate > NRG Serum or plasma glucose measurement (mass/volume) 103 mg/dL 70-105 Serum or plasma calcium measurement (mass/volume) 9.0 mg/dL 8.5-10.1 Serum or plasma total bilirubin measurement (mass/volume) 0.3 mg/dL 0.1-1.0 Serum or plasma alkaline phosphatase measurement (enzymatic activity/volume) 68 U/L 40-136 Serum or plasma aspartate aminotransferase measurement (enzymatic activity/ volume) 24 U/L 5-34 Serum or plasma alanine aminotransferase measurement (enzymatic activity/volume ) 30 U/L 0-55 Serum or plasma protein measurement (mass/volume) 6.8 g/dL 6.4-8.2 Serum or plasma albumin measurement (mass/volume) 4.0 g/dL 3.2-4.5 Serum or plasma C reactive protein measurement (mass/volume) - 11/14/17 18:23 Serum or plasma C reactive protein measurement (mass/volume) 1.55 mg /dL 0.00-0.50 Complete urinalysis with reflex to culture - 11/14/17 18:51 Urine color determination YELLOW NRG Urine clarity determination CLEAR NRG Urine pH measurement by test strip 8 5-9 Specific gravity of urine by test strip 1.010 1.016- 1.022 Urine protein assay by test strip, semi-quantitative NEGATIVE NEGATIVE Urine glucose detection by automated test strip NEGATIVE NEGATIVE Erythrocytes detection in urine sediment by light microscopy NEGATIVE NEGATIVE Urine ketones detection by automated test strip NEGATIVE NEGATIVE Urine nitrite detection by test strip NEGATIVE NEGATIVE Urine total bilirubin detection by test strip NEGATIVE NEGATIVE Urine urobilinogen measurement by automated test strip (mass/volume) NORMAL NORMAL Urine leukocyte esterase detection by dipstick 2+ NEGATIVE Automated urine sediment erythrocyte count by microscopy (number/high power field) NONE NRG Automated urine sediment leukocyte count by microscopy (number/high power field ) [HPF] NRG Bacteria detection in urine sediment by light microscopy FEW NRG Squamous epithelial cells detection in urine sediment by light microscopy 5-10 NRG Crystals detection in urine sediment by light microscopy NONE NRG Casts detection in urine sediment by light microscopy NONE NRG Mucus detection in urine sediment by light microscopy NEGATIVE NRG Complete urinalysis with reflex to culture YES NRG Streptococcus pyogenes antigen detection - 11/14/17 18:51 Streptococcus pyogenes antigen detection NEGATIVE NEGATIVE Bacterial throat culture - 11/14/17 18:51 Bacterial urine culture - 11/14/17 18:51 Bacterial urine culture RTF NRG COLONY COUNT . NRG Encounters ACCT No. Visit Date/Time Discharge Status Pt. Type Provider Facility Loc./Unit Complaint [id number] 06/14/2014 00:00:00 06/14/2014 23:59:59 CLS Outpatient [id number] 04/12/2014 08:48:00 04/12/2014 23:59:59 CLS Outpatient NOEL MEYERS APRN Greta [id number] 04/06/2014 12:40:00 04/06/2014 23:59:59 CLS Outpatient PEEWEE REED APRNCHERI Wang [id number] 11/02/2013 10:05:00 11/02/2013 23:59:59 CLS Outpatient NOEL MEYERS APRN Greta [id number] 10/26/2013 10:11:00 10/26/2013 23:59:59 CLS Outpatient SILVER SAVAGE MD [id number] 09/30/2013 10:01:00 09/30/2013 23:59:59 CLS Outpatient NOEL MEYERS APRN Greta [id number] 09/20/2013 13:46:00 09/20/2013 23:59:59 CLS Outpatient PEEWEE REED APRNCHERI Wang [id number] 11/14/2017 18:16:00 11/14/2017 20:55:00 DIS Emergency HAMMAD ROACH MD [facility] ER SEIZURE [id number] 10/18/2017 02:11:00 10/18/2017 02:56:00 DIS Emergency HAMMAD ROACH MD [facility] ER SORE THROAT,SWOLLEN THROAT -BLOODY [id number] 2017 00:35:00 2017 01:47:00 DIS Emergency SHAQ OLSEN DO [facility] ER LOWER BACK PAIN,BLOOD IN URINE [id number] 08/08/2017 20:19:00 08/08/2017 22:41:00 DIS Emergency BASILIO CANALES [facility] ER STREP THROAT [id number] 03/12/2017 16:06:00 03/12/2017 17:14:00 DIS Emergency BASILIO CANALES [facility] ER HURTS TO COUGH,THROAT HURTS [id number] 12/21/2016 12:24:00 12/21/2016 13:23:00 DIS Emergency BASILIO CANALES [facility] ER POSS STREP [id number] 10/25/2016 07:21:00 10/25/2016 07:50:00 DIS Emergency NEPTALI HOLLINS, KAMI Milton [facility] ER LEFT EYE REDNESS [id number] 07/04/2016 17:10:00 07/04/2016 17:25:00 DIS Emergency JARAD HOLLINS, JUNO Guardado [facility] ER SORE THROAT [id number] 05/10/2016 20:46:00 05/10/2016 21:11:00 DIS Emergency CELIA HUGHES APRN [facility] ER L EAR PAIN [id number] 04/30/2016 18:19:00 04/30/2016 21:20:00 DIS Emergency CELIA HUGHES APRN [facility] ER MIGRAINE PAIN/VOMITING [id number] 02/16/2016 10:47:00 02/16/2016 13:10:00 DIS Emergency CELIA HUGHES APRN [facility] ER MIGRAINE/NAUSEA [id number] 12/20/2015 20:32:00 12/20/2015 21:31:00 DIS Emergency JUAN LUIS HOLLINS, STEF Ortega [facility] ER CP [id number] 12/16/2015 12:16:00 12/16/2015 14:54:00 DIS Emergency BASILIO CANALES [facility] ER DIFF BREATHING/ CONGESTION [id number] 12/04/2015 10:21:00 12/04/2015 11:02:00 DIS Emergency CELIA HUGHES APRN [facility] ER POSS ABSCESS ON LEFT BREAST [id number] 11/26/2015 15:28:00 11/26/2015 23:59:59 CLS Emergency BASILIO CANALES [facility] ER HEADACHES/DIZZINESS [id number] 10/14/2015 16:39:00 10/14/2015 19:03:00 DIS Emergency SHAQ OLSEN DO [facility] ER L KIDNEY/R SHOULDER PAIN [id number] 09/03/2015 08:41:00 09/03/2015 11:36:00 DIS Emergency RONDA CHASE MD [facility] ER SORE THROAT,SOA,EAR PAIN [id number] 06/24/2015 10:25:00 06/24/2015 11:11:00 DIS Emergency CELIA HUGHES APRN [facility] ER RIGHT EAR PAIN/VOMITING [id number] 06/21/2015 14:16:00 06/21/2015 18:36:00 DIS Emergency ANTONIA BARNES DO D [facility] ER LEFT EAR PAIN/BLEEDING [id number] 05/16/2015 19:22:00 05/16/2015 21:53:00 DIS Emergency SHAQ OLSEN DO [facility] ER HEADACHE [id number] 03/24/2015 09:06:00 03/24/2015 11:07:00 DIS Emergency CELIA HUGHES APRN [facility] ER SORE THROAT HEADACHE [id number] 09/29/2014 22:40:00 09/29/2014 23:47:00 DIS Emergency DELISA CARDONA MD [facility] ER VOMITING;HEADACHE [id number] 07/24/2014 11:13:00 07/24/2014 12:34:00 DIS Emergency BASILIO CANALES [facility] ER SORE THROAT [id number] 04/04/2014 10:03:00 04/04/2014 12:06:00 DIS Emergency SHAQ OLSEN DO [facility] ER MIGRAINE/VOMITING [id number] 02/14/2014 10:03:00 02/14/2014 11:47:00 DIS Emergency DELISA CARDONA MD [facility] ER MIGRAINE [id number] 02/12/2014 14:10:00 02/12/2014 15:08:00 DIS Emergency DELISA CARDONA MD [facility] ER MIGRAINE [id number] 02/01/2014 08:50:00 02/01/2014 10:12:00 DIS Emergency STEF MCKNIGHT MD [facility] ER MIGRAINE [id number] 11/04/2013 17:16:00 11/04/2013 21:14:00 DIS Emergency BASILIO CANALES [facility] ER CHEST PAIN,SOA [id number] 03/24/2015 09:06:00 Document Registration [id number] 03/24/2015 09:06:00 Document Registration [id number] 07/11/2012 06:31:00 Document Registration
== END 2017-11-14 20:55 | disposition home or self-care (01) ==
LOC: EDUNIT# 18:15 → ER 18:16
DX: G40.909 Epilepsy, unspecified, not intractable, without status epilepticus (principal); N39.0 Urinary tract infection, site not specified; F41.9 Anxiety disorder, unspecified; F32.9 Major depressive disorder, single episode, unspecified; G43.909 Migraine, unspecified, not intractable, without status migrainosus; E78.00 Pure hypercholesterolemia, unspecified; I10 Essential (primary) hypertension; Z90.5 Acquired absence of kidney; Z90.89 Acquired absence of other organs
CPT/HCPCS: 36415; 71046; 80053; 81000; 84703; 85025; 86141; 87088; 87430

== ENCOUNTER 2018-03-29 03:43 | Emergency (ER) | payer OTHER ==
[~2018-03-29] VITALS: Ht 172.7 cm; Wt 114.8 kg
[~2018-03-29 03:43] MED LIST changes: +NITR100C PO
--- OUTSIDE RECORDS SUMMARY | 2018-03-29 03:49 | XMS REPORT ---
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 Operator Name Role Phone JAIRO FLOREZ Unavailable PROBLEMS Type Condition ICD9-CM Code YMR44-MV Code Onset Dates Condition Status SNOMED Code Problem Mixed hyperlipidemia E78.2 Active 813434472 Problem Insulin resistance E88.81 Active 173386610 Problem Acute seasonal allergic rhinitis, unspecified trigger J30.2 Active 463023806 Problem Anxiety associated with depression F41.8 Active 822154231 Problem Morbid obesity E66.01 Active 642053898 Problem Non compliance w medication regimen Z91.14 Active 103163277 Problem Acne L70.9 Active 81221823 ALLERGIES Substance Reaction Event Type Date Status Tegretol Unknown Drug Allergy Sep, Active Sulfamethoxazole-Trimethoprim Unknown Drug Allergy Sep, Active Penicillin V Potassium Unknown Drug Allergy Sep, Active Keppra Unknown Drug Allergy Sep, Active ENCOUNTERS Encounter Location Date Diagnosis [facility] [id number] [place] [address] Dec, Insulin resistance E88.81 ; BMI 40.0-44.9, adult Z68.41 ; Frequent headaches R51 and Non compliance w medication regimen Z91.14 [facility] [address] [place] [address] Nov, [facility] [id number] [place] [address] Nov, Insulin resistance E88.81 [facility] [id number] [place] [address] Nov, [facility] [id number] [place] [address] Nov, Hospital discharge follow-up Z09 ; BMI 40.0-44.9, adult Z68.41 and Metabolic syndrome E88.[address] [address] Oct, Hospital discharge follow-up Z09 ; BMI 40.0-44.9, adult Z68.41 ; Morbid obesity E66.01 ; Metabolic syndrome E88.81 ; Non compliance w medication regimen Z91.14 and Seizure R56.9 [facility] [address] [address] Sep, Sore throat J02.9 ; Right acute serous otitis media, recurrence not specified H65.01 and Acute seasonal allergic rhinitis, unspecified trigger J30.2 [facility] [address] [address] Jul, Sore throat J02.9 and Pharyngitis due to other organism J02.8 [facility] [address] [address] February, Sore throat J02.9 ; Acute middle ear effusion, bilateral H65.193 and Strep pharyngitis J02.[address] [address] Aug, [address] [address] May, Acute otitis externa of both ears, unspecified type H60.503 ; Morbid obesity E66.01 and Non compliance w medication regimen Z91.[address] [address] February, Morbid obesity E66.01 ; Anxiety associated with depression F41.8 ; Episodic tension-type headache, not intractable G44.219 and High blood pressure (not hypertension) R03.[address] [address] Jan, Morbid obesity E66.01 ; History of epilepsy Z86.69 ; Metabolic syndrome E88.81 ; Anxiety associated with depression F41.8 and Hyperlipidemia E78.[address] [address] Dec, Morbid obesity E66.01 ; Acne L70.9 ; Family history of diabetes mellitus Z83.3 ; Anxiety associated with depression F41.8 ; Insulin resistance E88.81 ; Metabolic syndrome E88.81 and Hyperlipidemia E78.[address] [address] Dec, [address] [address] Nov, Routine health maintenance Z00.00 ; Morbid obesity E66.01 ; Acne L70.9 and Family history of diabetes mellitus Z83.[address] [address] Nov, Routine health maintenance Z00.00 ; Morbid obesity E66.01 ; Morbid obesity due to excess calories E66.01 ; History of epilepsy Z86.69 ; Acne L70.9 ; Family history of diabetes mellitus Z83.3 ; Family history of cancer Z80.9 ; Anxiety associated with depression F41.8 and 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 [address] Jun, Infective otitis externa 380.[address] [address] May, Sore throat 462 and Sinusitis 473.[address] [address] 11 Mar, 2015 Sinusitis, acute 461.[address] [address] 14 Jan, [address] [address] Jan, [facility] [place] [facility] [address] [id number] [place] [address] Aug, [facility] [place] [facility] [address] [id number] [place] [address] Aug, [facility] [place] [facility] [address] [id number] [place] [address] May, [facility] [place] [facility] [address] [id number] [place] [address] May, [facility] [place] [facility] [address] [id number] [place] [address] Mar, [facility] [place] [facility] [address] [id number] [place] [address] Mar, [facility] [place] [facility] [address] [id number] [place] [address] Mar, [facility] [place] [facility] [address] [id number] [place] [address] Mar, [facility] [place] [facility] [address] [id number] [place] [address] Mar, [facility] [place] [facility] [address] [id number] [place] [address] Mar, [facility] [place] [facility] [address] [id number] [place] [address] Mar, [facility] [place] [facility] [address] [id number] [address] Mar, [facility] [place] [facility] [address] [id number] [place] [address] Oct, [facility] [place] [facility] [address] [id number] [place] [address] Oct, [facility] [place] [facility] [address] [id number] [place] [address] Oct, [facility] [place] [facility] [address] [id number] [address] Oct, [facility] [id number] [address] Oct, [facility] [address] [address] Oct, [facility] [address] [address] Oct, [facility] [address] [address] Sep, [facility] [address] [place] [address] Sep, [facility] [id number] [place] [address] 35[address] Sep, [facility] [id number] [place] [address] Sep, [facility] [address] [address] Sep, [facility] [address] [address] Jun, [facility] [address] [address] Jun, IMMUNIZATIONS No Known Immunizations SOCIAL HISTORY Never Assessed REASON FOR VISIT cough, sore throat, rash on chin and neck for 5 days. pt reports she needs a work note. [email or web address] PLAN OF CARE Activity Details Follow Up if not improving with PCP or reg follow up Reason: VITAL SIGNS Height 65 in 2017-10-04 Weight 253.8 lbs 2017-10-04 Temperature 98.4 degrees Fahrenheit 2017-10-04 Heart Rate 84 bpm 2017-10-04 Respiratory Rate 20 2017-10-04 BMI 42.23 kg/m2 2017-10-04 Blood pressure systolic 130 mmHg 2017-10-04 Blood pressure diastolic 86 mmHg 2017-10-04 MEDICATIONS Medication Instructions Dosage Frequency Start Date End Date Duration Status BuPROPion HCl 100 MG Orally Once a day 1 tablet 24h 10 Dec, 2015 Not -Taking MetFORMIN HCl ER 500 MG Orally twice a day 1 tablet twice daily with meals 12h Dec, Not-Taking Simvastatin 10 mg Orally Once a day 1 tablet in the evening 24h Dec, Not-Taking Zyrtec Allergy 10 mg Orally Once a day 1 tablet 24h 16 Sep, 2017 Nov, 30 day(s) Active Paroxetine HCl 20 MG Orally Once a day 1 tablet in the morning 24h 22 Jan, 2016 Not-Taking Ciprodex 0.3-0.1 % Otic Twice a day 4 drops into both ears 12h May, Not-Taking Ibuprofen 200 mg take 2 tablets by Oral route every 6 hours as needed with food PRN Mar, Not-Taking Ibuprofen 800 MG Orally Three times a day 1 tablet 8h February, Not-Taking Keflex 500 mg Orally every 12 hrs 1 capsule 12h Sep, Sep, 10 day(s) Active Tessalon Perles 100 mg Orally Three times a day 1 capsule as needed 8h 18 Jul, 2017 Not-Taking RESULTS Name Result Date Reference Range STREP A (IN HOUSE) 2017-10-04 STREP A negative Control + Lot # [id number] Exp date 09 18 2018 PROCEDURES Procedure Date Ordered Result Body Site STREP A ASSAY W/OPTIC Oct 04, 2017 INSTRUCTIONS MEDICATIONS ADMINISTERED No Known Medications MEDICAL (GENERAL) HISTORY Type Description Date Medical History Depression Medical History Epilepsy Medical History 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
--- NOTE | 2018-03-29 04:03 | ED Neurological Problem ---
General Chief Complaint: Neurological Problems Stated Complaint: POSS SEIZURE Nursing Triage Note: patient reports having a 10 minute seizure, 20 minutes ago. patient reports that she was incontinent of bladder and vomited Nursing Sepsis Screen: No Definite Risk Source: patient Exam Limitations: no limitations History of Present Illness Date Seen by Provider: Mar 29, 2018 Time Seen by Provider: 03:45 Initial Comments PT ARRIVES VIA POV FROM HOME--STATES HER DAD DROVE HER HERE STATES SHE HAD A SEIZURE 20 MINUTES AGO, LASTED 10 MINUTES--WAS NOT WITNESSED. EVERY ONE ELSE IN HOUSE WAS ASLEEP STATES SHE HAD BEEN OUT TO WALK THE DOG, HAD JUST GOT BACK IN THE HOUSE, AND HAD A SEIZURE--WAS STANDING AT THE TIME AND HER DOG STARTED BARKING AT HER AND SHE EASED DOWN TO THE FLOOR WITH THE HELP OF HER DOG. STATES THAT HER DOG HAS DONE THIS BEFORE, WHERE HE STARTS BARKING RIGHT BEFORE SHE HAS A SEIZURE. WHEN SHE WOKE UP SHE WAS COVERED IN VOMIT AND URINE, WITH HER DOG STANDING OVER HER AND BARKING. DENIES ANY INJURY FEELS FINE NOW, OTHER THAN MILD HEADACHE, BUT STATES SHE GETS HEADACHES ALL THE TIME AND THIS IS NO DIFFERENT THAN NORMAL. STATES SHE HAD A MIGRAINE EARLIER THIS EVENING HAS HISTORY OF SEIZURES--STARTED IN GROOVING LATHE TENDER. USED TO BE ON SEIZURE MEDICATIONS, BUT HAS NOT BEEN ON MEDICATION SINCE SHE WAS 10 HAS NOT HAD ANY SEIZURES IN MANY YEARS, BUT HAD ONE 11/14/17, AND AGAIN TODAY ON ER VISIT 11/14/17, PT WAS FOUND TO HAVE UTI. WAS ALSO REPORTED AT THAT TIME AND ALSO TODAY, THAT HISTORICALLY HER SEIZURES ARE ASSOCIATED WITH MIGRAINE HEADACHES. STATES SHE WILL GET A MIGRAINE ANYWHERE FROM A FEW MINUTES TO A FEW HOURS BEFORE SHE HAS A SEIZURE. SOMETIMES IT WILL GET BETTER WITH TYLENOL, COOL RAG AND A DARK ROOM. EVENTS TONIGHT WERE NO DIFFERENT IN ANY WAY THAN ANY OF HER PREVIOUS EPISODES. NO RECENT FEVER, ILLNESS, UNUSUAL STRESSORS, ETC. LMP --ENDED 2 DAYS AGO. NORMAL. NO CONTROL MULTITUDE OF ER VISITS--30 SINCE 07/11/12--VARIOUS COMPLAINTS PCP: LOREN-MIGUELINA, SURVEILLANCE DIRECTOR Chantel ROSE--HAS NOT SEEN FOR AWHILE DOES NOT SEE A NEUROLOGIST. Allergies and Home Medications Allergies Coded Allergies: amoxicillin (Verified Allergy, Unknown, 12/20/15) carbamazepine (Verified Allergy, Unknown, 12/20/15) Penicillins (Unverified Adverse Reaction, Intermediate, 3/2/16) Sulfa (Sulfonamide Antibiotics) (Unverified Adverse Reaction, Intermediate , 12/20/15) Home Medications Nitrofurantoin Macrocrystal 100 Mg Capsule, 100 MG PO BID Prescribed by: HAMMAD ROACH on 11/14/172034 Patient Home Medication List Home Medication List Reviewed: Yes Review of Systems Constitutional: no symptoms reported Eyes: No Symptoms Reported Ears, Nose, Mouth, Throat: no symptoms reported Respiratory: no symptoms reported Cardiovascular: no symptoms reported Gastrointestinal: see HPI, vomiting Genitourinary: see HPI, incontinence : No Musculoskeletal: no symptoms reported Skin: no symptoms reported Psychiatric/Neurological: See HPI; Denies Cognitive Dysfunction; Headache, Other (PER HPI) Endocrine: No Symptoms Reported Hematologic/Lymphatic: No Symptoms Reported Past Ybfdtff-Serwfm-Xwsbds Hx Patient Social History Alcohol Use: Denies Use Recreational Drug Use: No Smoking Status: Former Smoker (QUIT IN 2010) Type Used: Cigarettes 2nd Hand Smoke Exposure: No Recent Foreign Travel: No Contact w/Someone Who Travel: No Recent Infectious Disease Expo: No Recent Hopitalizations: No Immunizations Up To Date Tetanus Booster (TDap): Unknown PED Vaccines UTD: Yes Date of Pneumonia Vaccine: Apr 19, 2012 Date of Influenza Vaccine: Apr 19, 2012 Seasonal Allergies Seasonal Allergies: Yes Past Medical History Surgeries: Yes (RIGHT NEPHRECTOMY--STATES ACTUALLY HAD BENIGN TUMOR REMOVAL WITH RESULTANT ATROPHIC/NON-FUNCTIONING RIGHT KIDNEY; BMT'S; BENIGN TUMOR REMOVAL ROOF OF MOUTH) Adenoidectomy, Ear Surgery, Nephrectomy, Renal, Tonsillectomy Respiratory: No Cardiac: Yes High Cholesterol, Hypertension Neurological: Yes (LAST SEIZURE @ 9YRS OLD, THEN HAD ONE 11/14/17 AND . NO SEIZURE MEDICATIONS FOR YEARS--SINCE AGE 10. 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 ) Gastrointestinal: No Musculoskeletal: No Endocrine: No HEENT: Yes (S/P BMT'S ) Chronic Ear Infection Hearing Impairment: Hard of Hearing Cancer: No Psychosocial: Yes Anxiety, Depression Integumentary: No Blood Disorders: No Family Medical History No Pertinent Family Hx Physical Exam Vital Signs Vital Signs - First Documented 03/29/18 03:49 Temp 98.0 Pulse 79 Resp 18 B/P (MAP) 162/113 (129) Pulse Ox 100 Capillary Refill : Less Than 3 Seconds General Appearance: no apparent distress, obese, other (SMILING, VERY PLEASANT , VERY TALKATIVE. 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 nml as tested, no motor/sensory deficits, alert, normal mood/affect, oriented x 3 Crainal Nerves: normal hearing, normal speech, PERRL Coordination/Gait: normal gait Motor/Sensory: no motor deficit, no sensory deficit, no pronator drift, other ( DTR'S INTACT) Reflexes: 2+ Bicep (R), 2+ Bicep (L), 2+ Knee (R), 2+ Knee (L) Skin: normal color, warm/dry Progress/Results/Core Measures Results/Orders Lab Results Laboratory Tests Test 03/29/18 03:55 03/29/18 04:00 Range/Units Urine Color YELLOW Urine Clarity CLEAR Urine pH 6 5-9 Urine Specific Francisco 1.020 1.016-1.022 Urine Protein NEGATIVE NEGATIVE Urine Glucose (UA) NEGATIVE NEGATIVE Urine Ketones NEGATIVE NEGATIVE Urine Nitrite NEGATIVE NEGATIVE Urine Bilirubin NEGATIVE NEGATIVE Urine Urobilinogen NORMAL NORMAL MG/DL Urine Leukocyte Esterase NEGATIVE NEGATIVE Urine RBC (Auto) NEGATIVE NEGATIVE Urine RBC NONE /HPF Urine WBC NONE /HPF Urine Squamous Epithelial Cells 2-5 /HPF Urine Crystals NONE /LPF Urine Bacteria TRACE /HPF Urine Casts NONE /LPF Urine Mucus NEGATIVE /LPF Urine Culture Indicated NO Urine Opiates Screen NEGATIVE NEGATIVE Urine Oxycodone Screen NEGATIVE NEGATIVE Urine Methadone Screen NEGATIVE NEGATIVE Urine Propoxyphene Screen NEGATIVE NEGATIVE Urine Barbiturates Screen NEGATIVE NEGATIVE Ur Tricyclic Antidepressants Screen NEGATIVE NEGATIVE Urine Phencyclidine Screen NEGATIVE NEGATIVE Urine Amphetamines Screen NEGATIVE NEGATIVE Urine Methamphetamines Screen NEGATIVE NEGATIVE Urine Benzodiazepines Screen NEGATIVE NEGATIVE Urine Cocaine Screen NEGATIVE NEGATIVE Urine Cannabinoids Screen NEGATIVE NEGATIVE White Blood Count 6.8 4.3-11.0 10^3/uL Red Blood Count 4.60 4.35-5.85 10^6/uL Hemoglobin 13.1 11.5-16.0 G/DL Hematocrit 39 35-52 % Mean Corpuscular Volume 85 80-99 FL Mean Corpuscular Hemoglobin 29 25-34 PG Mean Corpuscular Hemoglobin Concent 34 32-36 G/DL Red Cell Distribution Width 13.4 10.0-14.5 % Platelet Count 275 130-400 10^3/uL Mean Platelet Volume 10.7 H 7.4-10.4 FL Neutrophils (%) (Auto) 56 42-75 % Lymphocytes (%) (Auto) 35 12-44 % Monocytes (%) (Auto) 8 0-12 % Eosinophils (%) (Auto) 0 0-10 % Basophils (%) (Auto) 1 0-10 % Neutrophils # (Auto) 3.8 1.8-7.8 X 10^3 Lymphocytes # (Auto) 2.4 1.0-4.0 X 10^3 Monocytes # (Auto) 0.6 0.0-1.0 X 10^3 Eosinophils # (Auto) 0.0 0.0-0.3 10^3/uL Basophils # (Auto) 0.1 0.0-0.1 10^3/uL Sodium Level 143 135-145 MMOL/L Potassium Level 3.8 3.6-5.0 MMOL/L Chloride Level 109 H 98-107 MMOL/L Carbon Dioxide Level 22 21-32 MMOL/L Anion Gap 12 5-14 MMOL/L Blood Urea Nitrogen 15 7-18 MG/DL Creatinine 0.73 0.60-1.30 MG/DL Estimat Glomerular Filtration Rate > 60 BUN/Creatinine Ratio 21 Glucose Level 105 70-105 MG/DL Calcium Level 9.2 8.5-10.1 MG/DL Magnesium Level 2.0 1.8-2.4 MG/DL Total Bilirubin 0.2 0.1-1.0 MG/DL Aspartate Amino Transf (AST/SGOT) 14 5-34 U/L Alanine Aminotransferase (ALT/SGPT) 23 0-55 U/L Alkaline Phosphatase 61 40-136 U/L Total Creatine Kinase 28 L 29-168 U/L Total Protein 7.1 6.4-8.2 GM/DL Albumin 4.2 3.2-4.5 GM/DL TSH [facility] 2.37 0.35-4.94 UIU/ML Serum Alcohol < 10 <10 MG/DL My Orders Orders - SHAQ OLSEN DO Urine Bedside (03/29/18 03:56) Alcohol (03/29/18 03:56) Cbc With Automated Diff (03/29/18 03:56) Comprehensive Metabolic Panel (03/29/18 03:56) Creatine Kinase (03/29/18 03:56) Drug Screen Stat (Urine) (03/29/18 03:56) Magnesium (03/29/18 03:56) Thyroid Analyzer (03/29/18 03:56) Ua Culture If Indicated (03/29/18 03:56) Vital Signs/I&O 03/29/18 03:49 Temp 98.0 Pulse 79 Resp 18 B/P (MAP) 162/113 (129) Pulse Ox 100 Blood Pressure Mean: 129 Progress Progress Note : Progress Note NO COMPLAINTS OF ANY KIND DURING REMAINDER OF STAY. DISCUSSED WITH PT THAT SHE SHOULD NOT DRIVE UNTIL SHE IS CLEARED BY , AND PT REPORTS THAT SHE DOES NOT DRIVE AND HAS NEVER EVEN LEARNED TO DRIVE Departure Impression Primary Impression: SELF REPORTED SEIZURE Additional Impressions: Hx of seizure disorder Headache Disposition: 01 HOME, SELF-CARE Condition: Stable Departure-Patient Inst. Referrals: [facility] (PCP/Family) Primary Care Physician Patient Instructions: Seizures, Adult (DC) Add. Discharge Instructions: TYLENOL NEEDED FOR PAIN LOTS OF CLEAR LIQUIDS FOLLOW UP WITH [facility] THIS WEEK FOR FURTHER CARE All discharge instructions reviewed with patient and/or family. Voiced understanding. SHAQ OLSEN DO Mar 29, 2018 04:03
[2018-03-29 04:11] LABS: BASOPHILS # (AUTO) 0.1 10^3/uL (0.0-0.1); BASOPHILS % (AUTO) 1 % (0-10); EOSINOPHILS % (AUTO) 0 % (0-10); HEMATOCRIT 39 % (35-52); HEMOGLOBIN 13.1 G/DL (11.5-16.0); LYMPHOCYTES # (AUTO) 2.4 X 10^3 (1.0-4.0); LYMPHOCYTES % (AUTO) 35 % (12-44); MEAN CORPUSCULAR HEMOGLOBIN 29 PG (25-34); MEAN CORPUSCULAR HGB CONC 34 G/DL (32-36); MEAN CORPUSCULAR VOLUME 85 FL (80-99); MEAN PLATELET VOLUME 10.7 FL (7.4-10.4); MONOCYTES # (AUTO) 0.6 X 10^3 (0.0-1.0); MONOCYTES % (AUTO) 8 % (0-12); NEUTROPHILS # (AUTO) 3.8 X 10^3 (1.8-7.8); NEUTROPHILS % (AUTO) 56 % (42-75); PLATELET COUNT 275 10^3/uL (130-400); RED CELL DISTRIBUTION WIDTH 13.4 % (10.0-14.5); WHITE BLOOD COUNT 6.8 10^3/uL (4.3-11.0)
[2018-03-29 04:13] LABS: BILIRUBIN,URINE NEGATIVE (NEGATIVE); CLARITY,URINE CLEAR; COLOR,URINE YELLOW; GLUCOSE, URINE (UA) NEGATIVE (NEGATIVE); KETONES,URINE NEGATIVE (NEGATIVE); LEUKOCYTE ESTERASE ,URINE NEGATIVE (NEGATIVE); NITRITE,URINE NEGATIVE (NEGATIVE); PH,URINE 6 (5-9); PROTEIN,URINE NEGATIVE (NEGATIVE); UROBILINOGEN,URINE NORMAL (NORMAL)
[2018-03-29 04:19] LABS: BACTERIA,URINE TRACE /HPF
[2018-03-29 04:23] LABS: AMPHETAMINE SCREEN, URINE NEGATIVE (NEGATIVE); BARBITURATE SCREEN URINE NEGATIVE (NEGATIVE); BENZODIAZEPINES SCREEN URINE NEGATIVE (NEGATIVE); CANNABINOID SCREEN, URINE NEGATIVE (NEGATIVE); COCAINE SCREEN URINE NEGATIVE (NEGATIVE); METHADONE STAT NEGATIVE (NEGATIVE); METHAMPHETAMINE SCREEN URINE S NEGATIVE (NEGATIVE); OPIATE SCREEN URINE NEGATIVE (NEGATIVE); OXYCODONE STAT NEGATIVE (NEGATIVE); PROPOXYPHENE STAT NEGATIVE (NEGATIVE); TRICYCLIC ANTIDEPRESSANTS SCRE NEGATIVE (NEGATIVE)
[2018-03-29 04:32] LABS: ALANINE AMINOTRANSFERASE 23 U/L (0-55); ALBUMIN 4.2 GM/DL (3.2-4.5); ALKALINE PHOSPHATASE 61 U/L (40-136); BILIRUBIN,TOTAL 0.2 MG/DL (0.1-1.0); BUN/CREATININE RATIO 21; CALCIUM 9.2 MG/DL (8.5-10.1); CARBON DIOXIDE 22 MMOL/L (21-32); CHLORIDE 109 MMOL/L (98-107); CREATINE KINASE 28 U/L (29-168); CREATININE SERUM 0.73 MG/DL (0.60-1.30); GFR ESTIMATED > 60; GLUCOSE 105 MG/DL (70-105); POTASSIUM 3.8 MMOL/L (3.6-5.0); SODIUM 143 MMOL/L (135-145); TOTAL PROTEIN 7.1 GM/DL (6.4-8.2)
[2018-03-29 04:52] LABS: TSH (THYROID ANALYZER) 2.37 UIU/ML (0.35-4.94)
[2018-03-29 04:53] VITALS: BP 147/86
== END 2018-03-29 04:53 | disposition home or self-care (01) ==
LOC: EDUNIT# 03:43 → ER 03:45
DX: G40.909 Epilepsy, unspecified, not intractable, without status epilepticus (principal); R51 Headache; E78.00 Pure hypercholesterolemia, unspecified; I10 Essential (primary) hypertension; F41.9 Anxiety disorder, unspecified; F32.9 Major depressive disorder, single episode, unspecified; Z87.891 Personal history of nicotine dependence; Z90.89 Acquired absence of other organs; Z90.5 Acquired absence of kidney; Z88.0 Allergy status to penicillin; Z88.1 Allergy status to other antibiotic agents; Z88.2 Allergy status to sulfonamides; Z88.8 Allergy status to other drugs, medicaments and biological substances
CPT/HCPCS: 36415; 80053; 80306; 80320; 81000; 82550; 83735; 84443; 85025; 99283

== ENCOUNTER → 2018-05-26 | Outpatient (CLI) | payer OTHER ==
[~2018-05-26] MED LIST changes: +IOHEXOL 350 MG/ML 100 ML (OMNIPAQUE 350) VIAL IV ONE; +NS 250 ML (IVPB) BAG IV ONE
[2018-05-26 11:50] LABS: ALANINE AMINOTRANSFERASE 21 U/L (0-55); ALBUMIN 4.5 GM/DL (3.2-4.5); ALKALINE PHOSPHATASE 67 U/L (40-136); BILIRUBIN,TOTAL 0.6 MG/DL (0.1-1.0); BUN/CREATININE RATIO 15; CALCIUM 9.4 MG/DL (8.5-10.1); CARBON DIOXIDE 25 MMOL/L (21-32); CHLORIDE 107 MMOL/L (98-107); CREATININE SERUM 0.74 MG/DL (0.60-1.30); GFR ESTIMATED > 60; GLUCOSE 93 MG/DL (70-105); SODIUM 140 MMOL/L (135-145); TOTAL PROTEIN 7.3 GM/DL (6.4-8.2)
--- NOTE | 2018-05-26 12:16 | Diagnostic Imaging Report ---
PROCEDURE: CT head with and without contrast. TECHNIQUE: Multiple contiguous axial images were obtained through the brain before and after the administration of intravenous contrast. DATE: May 26, 2018. COMPARISON: February 16, 2016. February 14, 2014. INDICATION: 22-year-old female, migraine headaches. History of seizures. FINDINGS: There are oval areas of soft tissue attenuation within the posterior subcutaneous tissues at the level of the skull base measuring up to maximally 7 mm in short axis as measured on axial image 2. These are nonspecific. Similar-appearing focus is also seen posteriorly on image 7 measuring 5 mm short axis. The ventricles and cerebral spinal fluid spaces are of normal size and configuration for the patient's age. There is no mass effect or midline shift. There is no acute intracranial hemorrhage. There is no abnormal extra-axial fluid collection. There is no abnormal intracranial enhancement. The visualized portions of the paranasal sinuses, mastoid air cells and middle ears are well aerated. IMPRESSION: 1. No identified acute intracranial abnormality. 2. Nonspecific oval foci of soft tissue attenuation within the posterior subcutaneous tissues centered in the region of the skull base. These measure up to maximally 7 mm in short axis. These are unchanged since at least February 14, 2014 compatible with benign etiology. Dictated by: Dictated on workstation # [id number]
== END ==
LOC: RAD 11:16
PROVIDERS: ATTEND Nurse Practitioner Family
DX: G43.909 Migraine, unspecified, not intractable, without status migrainosus (principal); G93.89 Other specified disorders of brain; Z86.69 Personal history of other diseases of the nervous system and sense organs; Z87.898 Personal history of other specified conditions
CPT/HCPCS: 36415; 70470; 80053

== ENCOUNTER 2018-10-09 16:30 | Emergency (ER) | payer SELFPAY ==
[~2018-10-09] VITALS: Ht 172.7 cm; Wt 114.8 kg
[~2018-10-09 16:30] MED LIST changes: +BENZ100C18 PO; +HYDR-4226 PO; -HYDR-757 PO; -IOHEXOL 350 MG/ML 100 ML (OMNIPAQUE 350) VIAL IV ONE; -NS 250 ML (IVPB) BAG IV ONE
--- NOTE | 2018-10-09 17:32 | ED Neurological Problem ---
General Chief Complaint: Neurological Problems Stated Complaint: SEIZURE Nursing Triage Note: brought by EMS. A/o x4. sl tremor noted to rt arm. she states that she has had a history of seizures since she was a child. had a neurologist in [place] 7 yrs ago but does not have one now and is not on seizure meds. has had 2 other seizures this year- last being in March. states that she has been under more stress. was sitting in floor and began screaming and shaking- witnessed by younger sisters. no loc but does not remeber anything. did not strike head. pain to back of head noted Nursing Sepsis Screen: No Definite Risk History of Present Illness Date Seen by Provider: Oct 09, 2018 Time Seen by Provider: 16:30 Initial Comments 23-year-old female presents via EMS for possible seizure activity prior to arrival. She has a seizure history dating back to approximately 2 years of age. She is not currently on any antiseizure medication. She has taken multiple medications in the past that was discontinued on them several years ago. She reports a seizure in October and March of this year. She reports that her seizure was witnessed by her younger sisters. She has no recall of the event. She was sitting on the floor when she began to feel dizzy, she was able to lie down and her sister state that she was shaking and screaming. She has no post ictal symptoms at this time. There was no incontinence. She does report vomiting after "coming to." She has a history of depression and anxiety. Timing/Duration: 1 hour Associated Symptoms: denies symptoms Allergies and Home Medications Allergies Coded Allergies: amoxicillin (Verified Allergy, Unknown, 12/20/15) carbamazepine (Verified Allergy, Unknown, 12/20/15) Penicillins (Unverified Adverse Reaction, Intermediate, 12/20/15) Sulfa (Sulfonamide Antibiotics) (Unverified Adverse Reaction, Intermediate , 12/20/15) Home Medications Ciprofloxacin HCl 500 Mg Tablet, 500 MG PO BID Prescribed by: ERIKA KRAUSE on 10/09/181810 Levetiracetam 500 Mg Tablet, 500 MG PO BID Prescribed by: ERIKA KRAUSE on 10/09/181810 Nitrofurantoin Macrocrystal 100 Mg Capsule, 100 MG PO BID Prescribed by: HAMMAD ROACH on 11/14/172034 Patient Home Medication List Home Medication List Reviewed: Yes Review of Systems Review of Systems Constitutional: no symptoms reported, see HPI Psychiatric/Neurological: See HPI, Anxiety, Depressed, [place] Seizures All Other Systems Reviewed Negative Unless Noted: Yes Past Roflkvi-Cxchmf-Reugsg Hx Past Med/Social Hx: Reviewed Nursing Past Med/Soc Hx Patient Social History Alcohol Use: Denies Use Recreational Drug Use: No Smoking Status: Never a Smoker Type Used: Cigarettes 2nd Hand Smoke Exposure: No Recent Foreign Travel: No Contact w/Someone Who Travel: No Recent Infectious Disease Expo: No Recent Hopitalizations: No Physical Abuse: No Sexual Abuse: No Mistreated: No Fear: No Immunizations Up To Date Tetanus Booster (TDap): Unknown PED Vaccines UTD: Yes Date of Pneumonia Vaccine: Apr 19, 2012 Date of Influenza Vaccine: Apr 19, 2012 Seasonal Allergies Seasonal Allergies: Yes Past Medical History Surgeries: Yes Adenoidectomy, Ear Surgery, Nephrectomy, Renal, Tonsillectomy Respiratory: No Cardiac: Yes High Cholesterol, Hypertension Neurological: Yes Headaches /Migraines, Seizure Disorder Reproductive Disorders: No Genitourinary: Yes Gastrointestinal: No Musculoskeletal: No Endocrine: No HEENT: Yes (S/P BMT'S ) Chronic Ear Infection Hearing Impairment: Hard of Hearing Cancer: No Psychosocial: Yes Anxiety, Depression Integumentary: No Blood Disorders: No Family Medical History No Pertinent Family Hx Physical Exam Vital Signs Vital Signs - First Documented 10/09/18 16:30 Temp 98.5 Pulse 104 Resp 16 B/P (MAP) 145/61 (89) Pulse Ox 99 Capillary Refill : Less Than 3 Seconds Height, Weight, BMI Height: 5'8.00" Weight: 253lbs. oz. 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 II-XII nml as tested, no motor/sensory deficits, alert, normal mood/affect, oriented x 3 Crainal Nerves: normal hearing, normal speech, PERRL Coordination/Gait: normal finger to nose, normal gait Motor/Sensory: no motor deficit, no sensory deficit Skin: normal color, warm/dry Progress/Results/Core Measures Results/Orders Lab Results Laboratory Tests Test 10/09/18 17:49 10/09/18 17:50 Range/Units Urine Color YELLOW Urine Clarity SLIGHTLY CLOUDY Urine pH 7 5-9 Urine Specific [place] 1.010 L 1.016-1.022 Urine Protein 1+ H NEGATIVE Urine Glucose (UA) NEGATIVE NEGATIVE Urine Ketones NEGATIVE NEGATIVE Urine Nitrite NEGATIVE NEGATIVE Urine Bilirubin NEGATIVE NEGATIVE Urine Urobilinogen NORMAL NORMAL MG/DL Urine Leukocyte Esterase 3+ H NEGATIVE Urine RBC (Auto) 2+ H NEGATIVE Urine RBC 2-5 H /HPF Urine WBC 10-25 H /HPF Urine Squamous Epithelial Cells 10-25 H /HPF Urine Crystals NONE /LPF Urine Bacteria FEW H /HPF Urine Casts NONE /LPF Urine Mucus NEGATIVE /LPF Urine Culture Indicated YES Urine Opiates Screen NEGATIVE NEGATIVE Urine Oxycodone Screen NEGATIVE NEGATIVE Urine Methadone Screen NEGATIVE NEGATIVE Urine Propoxyphene Screen NEGATIVE NEGATIVE Urine Barbiturates Screen NEGATIVE NEGATIVE Ur Tricyclic Antidepressants Screen NEGATIVE NEGATIVE Urine Phencyclidine Screen NEGATIVE NEGATIVE Urine Amphetamines Screen NEGATIVE NEGATIVE Urine Methamphetamines Screen NEGATIVE NEGATIVE Urine Benzodiazepines Screen NEGATIVE NEGATIVE Urine Cocaine Screen NEGATIVE NEGATIVE Urine Cannabinoids Screen NEGATIVE NEGATIVE My Orders Orders - ERIKA KRAUSE Drug Screen Stat (Urine) (10/09/18 17:49) Ua Culture If Indicated (10/09/18 17:49) Urine Culture (10/09/18 17:49) Vital Signs/I&O 10/09/18 10/09/18 16:30 18:16 Temp 98.5 Pulse 104 90 Resp 16 16 B/P (MAP) 145/61 (89) 152/77 (102) Pulse Ox 99 99 Blood Pressure Mean: 89 Progress Progress Note : Time: 16:30 Progress Note Patient seen and evaluated. Will obtain UA and urine drug screen. 1715 patient continued to have no seizure activity or concerns. 1745 discussed at length with the patient options and treatment for her seizure activity versus anxiety attack. Explained that her symptoms were more indicative of anxiety than seizures, but she is concerned that this is the third time that she believes a seizure has occurred in the last 6 months. She would like to start Keppra. She will follow-up with her primary care provider. 1800 discharge instructions and return precautions reviewed with her. Departure Impression Primary Impression: Hx of seizure disorder Additional Impression: UTI (urinary tract infection) Qualified Codes: N30.01 - Acute cystitis with hematuria Disposition: HOME, SELF-CARE Condition: Improved Departure-Patient Inst. Decision time for Depature: 17:50 Referrals: [facility] (PCP/Family) Primary Care Physician Patient Instructions: Seizures, Adult (DC), Urinary Tract Infection, Adult (DC) Add. Discharge Instructions: Begin taking Keppra 1 tablet twice daily. Follow-up with your primary care provider, in 5-7 days. Increase water intake, drink 1 bottle every 2 hours while awake. Empty her bladder every 2 hours while awake. Drink 1 glass of cranberry juice daily. Return to emergency department for new, acute health care problems. All discharge instructions reviewed with patient and/or family. Voiced understanding. Scripts Ciprofloxacin HCl (Cipro) 500 Mg Tablet 500 MG PO BID, #6 TAB 0 Refills Prov: ERIKA KRAUSE 10/09/18 Levetiracetam (Keppra) 500 Mg Tablet 500 MG PO BID, #30 TAB 1 Refill Prov: ERIKA KRAUSE 10/09/18 ERIKA KRAUSE Oct 09, 2018 17:32
[2018-10-09 17:55] LABS: BILIRUBIN,URINE NEGATIVE (NEGATIVE); CLARITY,URINE SLIGHTLY CLOUDY; COLOR,URINE YELLOW; GLUCOSE, URINE (UA) NEGATIVE (NEGATIVE); KETONES,URINE NEGATIVE (NEGATIVE); LEUKOCYTE ESTERASE ,URINE 3+ (NEGATIVE); NITRITE,URINE NEGATIVE (NEGATIVE); PH,URINE 7 (5-9); PROTEIN,URINE 1+ (NEGATIVE); UROBILINOGEN,URINE NORMAL (NORMAL)
[2018-10-09 18:04] LABS: BACTERIA,URINE FEW /HPF
[2018-10-09 18:08] LABS: AMPHETAMINE SCREEN, URINE NEGATIVE (NEGATIVE); BENZODIAZEPINES SCREEN URINE NEGATIVE (NEGATIVE); CANNABINOID SCREEN, URINE NEGATIVE (NEGATIVE); COCAINE SCREEN URINE NEGATIVE (NEGATIVE); METHAMPHETAMINE SCREEN URINE S NEGATIVE (NEGATIVE)
[2018-10-09 18:09] LABS: BARBITURATE SCREEN URINE NEGATIVE (NEGATIVE); METHADONE STAT NEGATIVE (NEGATIVE); OPIATE SCREEN URINE NEGATIVE (NEGATIVE); OXYCODONE STAT NEGATIVE (NEGATIVE); PROPOXYPHENE STAT NEGATIVE (NEGATIVE); TRICYCLIC ANTIDEPRESSANTS SCRE NEGATIVE (NEGATIVE)
[2018-10-09] MEDS ORDERED: LEVE500T99 PO (18:11)
[2018-10-09] MEDS ORDERED: CIPR-225 PO (18:11)
[2018-10-09 18:16] VITALS: BP 152/77
== END 2018-10-09 18:16 | disposition home or self-care (01) ==
LOC: EDUNIT# 16:30 → ER 16:31
DX: G40.909 Epilepsy, unspecified, not intractable, without status epilepticus (principal); N39.0 Urinary tract infection, site not specified; I10 Essential (primary) hypertension; E78.00 Pure hypercholesterolemia, unspecified; G43.909 Migraine, unspecified, not intractable, without status migrainosus; F41.9 Anxiety disorder, unspecified; F32.9 Major depressive disorder, single episode, unspecified; Z88.1 Allergy status to other antibiotic agents; Z88.0 Allergy status to penicillin; Z88.2 Allergy status to sulfonamides; Z88.8 Allergy status to other drugs, medicaments and biological substances; Z90.89 Acquired absence of other organs
CPT/HCPCS: 80306; 81000; 87088; 99283

== ENCOUNTER 2019-01-09 16:44 | Emergency (ER) | payer SELFPAY ==
[~2019-01-09] VITALS: Ht 165.1 cm; Wt 120.2 kg
[~2019-01-09 16:44] MED LIST changes: +CIPR-225 PO; +LEVE500T99 PO
--- OUTSIDE RECORDS SUMMARY | 2019-01-09 16:49 | XMS REPORT ---
Author Author SILVER ENCARNACION [facility] Address [address] [place] [address] Care Team Providers [facility] [employer] [employer] Manager Name Role Phone SILVER ENCARNACION Unavailable PROBLEMS Type Condition ICD9-CM Code BIX44-WH Code Onset Dates Condition Status SNOMED Code Problem Mixed hyperlipidemia E78.2 Active 001128655 Problem Morbid obesity E66.01 Active 171428291 Problem Dysthymia F34.1 Active 59043845 Problem Depression with anxiety F41.8 Active 02091372 Problem Acne L70.9 Active 88225936 Problem Non compliance w medication regimen Z91.14 Active 837749038 Problem Acute seasonal allergic rhinitis, unspecified trigger J30.2 Active 756815079 Problem Insulin resistance E88.81 Active 051669575 ALLERGIES No Information ENCOUNTERS Encounter Location Date Diagnosis [facility] [address] [address] Nov, [facility] [address] [address] Nov, [facility] [address] [address] Oct, Dysthymia F34.1 ; Seizure R56.9 ; Dermatitis L30.9 and BMI 45.0-49.9, adult Z68.42 [facility] [address] [id number] [place] [address] Sep, [place] [address] [address] May, Depression with anxiety F41.8 [facility] [address] [address] May, History of epilepsy Z86.69 [place] [address] [id number] [place] [address] 02 May, 2018 History of seizures Z87.898 ; Non compliance w medication regimen Z91.14 and Dysthymia F34.1 [place] [id number] [place] [address] 13 Mar, 2018 History of seizures Z87.898 ; Frequent headaches R51 ; Non compliance w medication regimen Z91.14 and BMI 45.0-49.9, adult Z68.42 [place] [id number] [place] [address] Dec, Insulin resistance E88.81 ; BMI 40.0-44.9, adult Z68.41 ; Frequent headaches R51 and Non compliance w medication regimen Z91.14 [place] [id number] [place] [address] 27 Nov, 2017 [place] [id number] [place] [address] 07 Nov, 2017 Insulin resistance E88.81 [place] [id number] [place] [address] 05 Nov, 2017 [place] [address] [id number] [place] [address] Nov, Hospital discharge follow-up Z09 ; BMI 40.0-44.9, adult Z68.41 and Metabolic syndrome E88.81 [place] [id number] [place] [address] 30 Oct, 2017 Hospital discharge follow-up Z09 ; BMI 40.0-44.9, adult Z68.41 ; Morbid obesity E66.01 ; Metabolic syndrome E88.81 ; Non compliance w medication regimen Z91.14 and Seizure R56.9 [facility] [id number] [place] [address] 16 Sep, 2017 Sore throat J02.9 ; Right acute serous otitis media, recurrence not specified H65.01 and Acute seasonal allergic rhinitis, unspecified trigger J30.2 [facility] [id number] [place] [address] Jul, Sore throat J02.9 and Pharyngitis due to other organism J02.8 [facility] [address] [address] February, Sore throat J02.9 ; Acute middle ear effusion, bilateral H65.193 and Strep pharyngitis J02.0 [place] [address] [address] Aug, [place] [address] [address] May, Acute otitis externa of both ears, unspecified type H60.503 ; Morbid obesity E66.01 and Non compliance w medication regimen Z91.[address] [address] February, Morbid obesity E66.01 ; Anxiety associated with depression F41.8 ; Episodic tension-type headache, not intractable G44.219 and High blood pressure (not hypertension) R03.0 [place] [address] [address] Jan, Morbid obesity E66.01 ; History of epilepsy Z86.69 ; Metabolic syndrome E88.81 ; Anxiety associated with depression F41.8 and Hyperlipidemia E78.5 [place] [address] [address] Dec, Morbid obesity E66.01 ; Acne L70.9 ; Family history of diabetes mellitus Z83.3 ; Anxiety associated with depression F41.8 ; Insulin resistance E88.81 ; Metabolic syndrome E88.81 and Hyperlipidemia E78.5 [place] [id number] [place] [address] Dec, [place] [address] [address] Nov, Routine health maintenance Z00.00 ; Morbid obesity E66.01 ; Acne L70.9 and Family history of diabetes mellitus Z83.3 [place] [address] [address] 25 Nov, 2015 Routine health maintenance Z00.00 ; Morbid obesity E66.01 ; Morbid obesity due to excess calories E66.01 ; History of epilepsy Z86.69 ; Acne L70.9 ; Family history of diabetes mellitus Z83.3 ; Family history of cancer Z80.9 ; Anxiety associated with depression F41.8 and 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 [place] [address] [address] Jun, Infective otitis externa 380.10 [place] [address] [address] May, Sore throat 462 and Sinusitis 473.9 [place] [address] [address] 11 Mar, 2015 Sinusitis, acute 461.9 [place] [address] [address] 14 Jan, 2015 [place] [address] [address] Jan, [place] [address] [place] [id number] [place] [address] Aug, [facility] [address] [address] Aug, [place] [address] [address] May, [place] [address] [address] May, [place] [address] [address] Mar, [place] [address] [facility] [id number] [place] [address] Mar, [facility] [place] [facility] [address] [id number] [place] [address] Mar, [facility] [place] [facility] [address] [id number] [place] [address] Mar, [facility] [place] [facility] [address] [id number] [place] [address] Mar, [facility] [place] [facility] [address] [id number] [place] [address] Mar, [facility] [place] [facility] [address] [id number] [place] [address] Mar, [facility] [place] [facility] [address] [id number] [place] [address] Mar, [facility] [place] [facility] [address] [id number] [place] [address] 15 Oct, 2013 [facility] [place] [facility] [address] [id number] [place] [address] Oct, [facility] [place] [facility] [address] [id number] [place] [address] Oct, [facility] [place] [facility] [address] [id number] [place] [address] Oct, [facility] [place] [facility] [address] [id number] [place] [address] Oct, [facility] [place] [facility] [address] [id number] [place] [address] Oct, [facility] [place] [facility] [address] [id number] [place] [address] Oct, [facility] [place] [facility] [address] [id number] [place] [address] Sep, [facility] [place] [facility] [address] [id number] [place] [address] Sep, [facility] [address] [facility] [id number], [place] [address] Sep, [facility] [address] [facility] [id number], [place] [address] Sep, [facility] [address] [facility] [id number], [place] [address] Sep, [facility] [address] [facility] [id number], [place] [address] Jun, [facility] [address] [facility] [id number], [place] [address] Jun, IMMUNIZATIONS No Known Immunizations SOCIAL HISTORY Never Assessed REASON FOR VISIT PLAN OF CARE VITAL SIGNS MEDICATIONS Medication Instructions Dosage Frequency Start Date End Date Duration Status Tamiflu 75 MG Orally Oncee a day 1 capsule Nov, 10 days Active RESULTS No Results PROCEDURES No Known procedures INSTRUCTIONS MEDICATIONS ADMINISTERED No Known Medications MEDICAL (GENERAL) HISTORY Type Description Date Medical History Depression Medical History Epilepsy Medical History PASCUA YAQUI in Left ear Surgical History 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
--- OUTSIDE RECORDS SUMMARY | 2019-01-09 16:49 | XMS REPORT ---
Author Author DAVID CHOI [facility] Address [address] [place] [address] Care Team Providers Care Target Network Analyst Name Role Phone AMANDA CHOITA Unavailable PROBLEMS Type Condition ICD9-CM Code OAK73-MX Code Onset Dates Condition Status SNOMED Code Problem Morbid obesity E66.01 Active 735580909 Problem Mixed hyperlipidemia E78.2 Active 876933728 Problem Depression with anxiety F41.8 Active 17761925 Problem Dysthymia F34.1 Active 77362940 Problem Non compliance w medication regimen Z91.14 Active 795593113 Problem Acne L70.9 Active 18086365 Problem Insulin resistance E88.81 Active 934693098 Problem Acute seasonal allergic rhinitis, unspecified trigger J30.2 Active 945308842 ALLERGIES Substance Reaction Event Type Date Status Tegretol Unknown Drug Allergy May, Active Sulfamethoxazole-Trimethoprim Unknown Drug Allergy May, Active Penicillin V Potassium Unknown Drug Allergy May, Active Keppra Unknown Drug Allergy May, Active Ibuprofen Kidney function Drug Allergy May, Active ENCOUNTERS Encounter Location Date Diagnosis [place] [address] [place] [id number] [place] [address] 79886- 3592 Jun, [place] [address] [place] [id number] [place] [address] 88852- 4171 May, Depression with anxiety F41.8 [place] [address] [place] [id number] [place] [address] 97315- 8090 May, History of epilepsy Z86.69 [place] [address] [id number] [place] [address] 47898- 3762 May, History of seizures Z87.898 ; Non compliance w medication regimen Z91.14 and Dysthymia F34.1 [place] [address] [address]- [address] 13 Mar, 2018 History of seizures Z87.898 ; Frequent headaches R51 ; Non compliance w medication regimen Z91.14 and BMI 45.0-49.9, adult Z68.42 [place] [address] [address] [id number] [place] [address] 96974- 7124 Dec, Insulin resistance E88.81 ; BMI 40.0-44.9, adult Z68.41 ; Frequent headaches R51 and Non compliance w medication regimen Z91.14 [place] [address] 86649- 4464 Nov, [address] 08473- 7369 Nov, Insulin resistance E88.[address] 38127- 4171 Nov, [address] 23273- 2781 Nov, Hospital discharge follow-up Z09 ; BMI 40.0-44.9, adult Z68.41 and Metabolic syndrome E88.[address] 09276- 2836 30 Oct, 2017 Hospital discharge follow-up Z09 ; BMI 40.0-44.9, adult Z68.41 ; Morbid obesity E66.01 ; Metabolic syndrome E88.81 ; Non compliance w medication regimen Z91.14 and Seizure R56.9 [facility] [place] [id number] [place] [address] 91703 -2933 16 Sep, 2017 Sore throat J02.9 ; Right acute serous otitis media, recurrence not specified H65.01 and Acute seasonal allergic rhinitis, unspecified trigger J30.2 [facility] [place] [id number] [place] [address] 20496 -4645 18 Jul, 2017 Sore throat J02.9 and Pharyngitis due to other organism J02.8 [facility] [place] [id number] [place] [address] February, Sore throat J02.9 ; Acute middle ear effusion, bilateral H65.193 and Strep pharyngitis J02.0 [place] [address] [place] [address] [id number] [place] [address] 85070- 8115 Aug, [place] [address] 83757- 2948 May, Acute otitis externa of both ears, unspecified type H60.503 ; Morbid obesity E66.01 and Non compliance w medication regimen Z91.[address] 69124- 3802 February, Morbid obesity E66.01 ; Anxiety associated with depression F41.8 ; Episodic tension-type headache, not intractable G44.219 and High blood pressure (not hypertension) R03.[address] 71574- 1566 Jan, Morbid obesity E66.01 ; History of epilepsy Z86.69 ; Metabolic syndrome E88.81 ; Anxiety associated with depression F41.8 and Hyperlipidemia E78.5 [place] [id number] [place] [address] 54043- 3965 Dec, Morbid obesity E66.01 ; Acne L70.9 ; Family history of diabetes mellitus Z83.3 ; Anxiety associated with depression F41.8 ; Insulin resistance E88.81 ; Metabolic syndrome E88.81 and Hyperlipidemia E78.5 [place] [address] [place] [id number] [place] [address] 84480- 5375 Dec, [address] 08485- 5486 Nov, Routine health maintenance Z00.00 ; Morbid obesity E66.01 ; Acne L70.9 and Family history of diabetes mellitus Z83.3 [place] [id number] [place] [address] 82659- 5064 Nov, Routine health maintenance Z00.00 ; Morbid obesity E66.01 ; Morbid obesity due to excess calories E66.01 ; History of epilepsy Z86.69 ; Acne L70.9 ; Family history of diabetes mellitus Z83.3 ; Family history of cancer Z80.9 ; Anxiety associated with depression F41.8 and 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 [facility] [id number] [place] [address] 36722- 8314 08 Jun, 2015 Infective otitis externa 380.10 [facility] [address] 81309- 0615 May, Sore throat 462 and Sinusitis 473.9 [place] [address] 92965- 2678 11 Mar, 2015 Sinusitis, acute 461.9 [facility] [address] 59353- 9861 14 Jan, 2015 [facility] [address] 98332- 2904 Jan, [facility] [id number] [place] [address] 51360- 4042 Aug, [facility] [address] 98755- 5534 Aug, [facility] [id number] [place] [address] 54306- 5431 May, [facility] [id number] [place] [address] 67006- 0899 May, [facility] [id number] [place] [address] 13652- 8582 Mar, [facility] [address] 62801- 9032 Mar, [facility] [id number] [place] [address] 66919- 2012 Mar, [facility] [address] 48034- 5330 24 Mar, 2014 [facility] [place] [facility] [address] [id number] [place] [address] 9401 Mar, [facility] [place] [facility] [address] [id number] [place] [address]- 7641 Mar, [facility] [place] [facility] [address] [id number] [place] [address]- 6043 Mar, [facility] [place] [facility] [address] [id number] [place] [address]- 3806 Mar, [facility] [place] [facility] [address] [id number] [place] [address]- 9855 15 Oct, 2013 [facility] [place] [facility] [address] [id number] [place] [address]- 2463 Oct, [facility] [place] [facility] [address] [id number] [place] [address]- 8654 Oct, [facility] [place] [facility] [address] [id number] [place] [address]- 2293 Oct, [facility] [place] [facility] [address] [id number] [place] [address]- 0884 Oct, [facility] [place] [facility] [address] [id number] [place] [address]- 0839 Oct, [facility] [place] [facility] [address] [id number] [place] [address]- 8584 Oct, [facility] [place] [facility] [address] [id number] [place] [address]- 3633 Sep, [facility] [place] [facility] [address] [id number] [place] [address]- 4435 Sep, [facility] [place] [facility] [address] [id number] [place] [address]- 6399 Sep, [facility] [place] [facility] [address] [id number] [place] [address]- 0604 Sep, [facility] [place] [facility] [address] [facility] [id number] [place] [address]- 2546 Sep, [facility] [address] [facility] [id number] [place] [address] 2546 Jun, [facility] [address] [facility] [id number] [place] [address]- 2546 Jun, IMMUNIZATIONS No Known Immunizations SOCIAL HISTORY Never Assessed REASON FOR VISIT Seizure symptons., Pt complains that she is waking up exhausted with random brusing on her body. She states she has a history of seizures when she was 2-3 years old. Pt states her father has witnessed her have an active seizure and he told her she foaming from the mouth and convulsing.-awoods PLAN OF CARE Activity Details Follow Up 4 Weeks Reason:depression/seizures VITAL SIGNS Height 65 in 2018-05-21 Weight 271.8 lbs 2018-05-21 Temperature 98.6 degrees Fahrenheit 2018-05-21 Heart Rate 102 bpm 2018-05-21 Respiratory Rate 20 2018-05-21 BMI 45.22 kg/m2 2018-05-21 Blood pressure systolic 130 mmHg 2018-05-21 Blood pressure diastolic 74 mmHg 2018-05-21 MEDICATIONS Medication Instructions Dosage Frequency Start Date End Date Duration Status Tylenol Active HydrOXYzine HCl 25 MG Orally every 8 hrs 1 tablet as needed 8h May, 30 day(s) Active Fluoxetine HCl 20 mg Orally Once a day 1 capsule 24h May, 30 day(s) Active Ibuprofen Active RESULTS Name Result Date Reference Range CT Scan : Brain w/o & w/ Contrast 2018-05-26 PROCEDURES No Known procedures INSTRUCTIONS MEDICATIONS ADMINISTERED No Known Medications MEDICAL (GENERAL) HISTORY Type Description Date Medical History Depression Medical History Epilepsy Medical History RUBY in Left ear Surgical History 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
--- OUTSIDE RECORDS SUMMARY | 2019-01-09 16:49 | XMS REPORT ---
Author Author AMARI MENJIVAR [facility] Address [address] [place] [address] Care Team Providers Care Television Writer Name Role Phone AMARI MENJIVAR Unavailable PROBLEMS Type Condition ICD9-CM Code FOF24-WE Code Onset Dates Condition Status SNOMED Code Problem Morbid obesity E66.01 Active 415107342 Problem Mixed hyperlipidemia E78.2 Active 087368814 Problem Depression with anxiety F41.8 Active 13271483 Problem Dysthymia F34.1 Active 20275736 Problem Non compliance w medication regimen Z91.14 Active 554049202 Problem Acne L70.9 Active 31961891 Problem Insulin resistance E88.81 Active 455143290 Problem Acute seasonal allergic rhinitis, unspecified trigger J30.2 Active 737102307 ALLERGIES No Information ENCOUNTERS Encounter Location Date Diagnosis [place] [address] [address]- 2319 Jun, [address] 90102- 0590 May, Depression with anxiety F41.[address] 51523- 5393 May, History of epilepsy Z86.69 [place] [address] 46445- 9681 May, History of seizures Z87.898 ; Non compliance w medication regimen Z91.14 and Dysthymia F34.1 [place] [address] 06188- 5193 Mar, History of seizures Z87.898 ; Frequent headaches R51 ; Non compliance w medication regimen Z91.14 and BMI 45.0-49.9, adult Z68.[address] [place] [address]- 1216 Dec, Insulin resistance E88.81 ; BMI 40.0-44.9, adult Z68.41 ; Frequent headaches R51 and Non compliance w medication regimen Z91.14 [place] [address] 62763- 1031 Nov, [place] [address] 65487- 9079 Nov, Insulin resistance E88.81 [place] [address] 77628- 5703 Nov, [address] 71724- 3313 Nov, Hospital discharge follow-up Z09 ; BMI 40.0-44.9, adult Z68.41 and Metabolic syndrome E88.[address] 11534- 2917 Oct, Hospital discharge follow-up Z09 ; BMI 40.0-44.9, adult Z68.41 ; Morbid obesity E66.01 ; Metabolic syndrome E88.81 ; Non compliance w medication regimen Z91.14 and Seizure R56.9 [facility] [place] [id number] [place] [address] 01477 -2905 Sep, Sore throat J02.9 ; Right acute serous otitis media, recurrence not specified H65.01 and Acute seasonal allergic rhinitis, unspecified trigger J30.2 [facility] [place] [id number] [place] [address] 88396 -8330 Jul, Sore throat J02.9 and Pharyngitis due to other organism J02.8 [facility] [place] [id number] [place] [address] 99617 -4836 February, Sore throat J02.9 ; Acute middle ear effusion, bilateral H65.193 and Strep pharyngitis J02.[address] [place] [address]- 3731 Aug, [place] [address] [place] [id number] [place] [address] 38938- 7273 May, Acute otitis externa of both ears, unspecified type H60.503 ; Morbid obesity E66.01 and Non compliance w medication regimen Z91.[address] 09283- 7557 February, Morbid obesity E66.01 ; Anxiety associated with depression F41.8 ; Episodic tension-type headache, not intractable G44.219 and High blood pressure (not hypertension) R03.0 [place] [address] 83941- 6390 Jan, Morbid obesity E66.01 ; History of epilepsy Z86.69 ; Metabolic syndrome E88.81 ; Anxiety associated with depression F41.8 and Hyperlipidemia E78.5 [place] [address] 73695- 1023 Dec, Morbid obesity E66.01 ; Acne L70.9 ; Family history of diabetes mellitus Z83.3 ; Anxiety associated with depression F41.8 ; Insulin resistance E88.81 ; Metabolic syndrome E88.81 and Hyperlipidemia E78.5 [place] [address] [place] [address] [id number] [place] [address] 59882- 7563 Dec, [place] [address] [place] [id number] [place] [address] 40138- 3686 Nov, Routine health maintenance Z00.00 ; Morbid obesity E66.01 ; Acne L70.9 and Family history of diabetes mellitus Z83.3 [place] [id number] [place] [address] 63531- 5233 Nov, Routine health maintenance Z00.00 ; Morbid obesity E66.01 ; Morbid obesity due to excess calories E66.01 ; History of epilepsy Z86.69 ; Acne L70.9 ; Family history of diabetes mellitus Z83.3 ; Family history of cancer Z80.9 ; Anxiety associated with depression F41.8 and 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 [facility] [address] [address]- [address] Jun, Infective otitis externa 380.10 [facility] [address] [place] [id number] [place] [address] 03989- 4514 May, Sore throat 462 and Sinusitis 473.9 [facility] [address] [place] [id number] [place] [address] 71067- 2409 11 Mar, 2015 Sinusitis, acute 461.9 [facility] [address] [place] [id number] [place] [address] 66153- 9491 Jan, [facility] [address] [place] [address] [id number] [place] [address] 77318- 3790 Jan, [facility] [address] [place] [address] [id number] [place] [address] 47010- 0456 Aug, [facility] [address] [place] [address] [id number] [place] [address] 67492- 0795 Aug, [facility] [id number] [place] [address] 16009- 5711 May, [facility] [address] [place] [address] [id number] [place] [address] 12866- 6435 May, [facility] [address], [place] [address]- 1751 Mar, [facility] [address] [place] [id number] [place] [address] 24948- 2618 Mar, [facility] [address] [place] [address] 67649- 7340 Mar, [facility] [address] [place] [id number] [place] [address] 11143- 9111 Mar, [facility] [address], [place] [address]- 4944 Mar, [facility] [address] [place] [id number] [place] [address] 23288- 9163 18 Mar, 2014 [facility] [address] [id number] [place] [address]- 7193 18 Mar, 2014 [facility] [place] [facility] [address] [id number] [place] [address]- 6837 18 Mar, 2014 [facility] [address] [facility] [id number] [place] [address]- 3620 15 Oct, 2013 [facility] [place] [facility] [address] [id number] [place] [address]- 6090 14 Oct, 2013 [facility] [address] [id number] [place] [address]- 0338 14 Oct, 2013 [facility] [place] [facility] [address] [id number] [place] [address]- 8911 Oct, [facility] [address] [facility] [id number], [place] [address]- 2493 Oct, [facility] [place] [facility] [address] [id number] [place] [address]- 4040 Oct, [facility] [address] [place] [id number] [address]- 3629 Oct, [facility] [address] [facility] [id number] [place] [address]- 3080 Sep, [facility] [place] [facility] [address] [id number], [place] [address]- 8854 Sep, [facility] [place] [facility] [address] [id number], [place] [address]- 9525 Sep, [facility] [place] [facility] [address] [id number], [place] [address]- 5121 Sep, [facility] [place] [facility] [address] [facility] [id number] 1987 02 Sep, 2013 [facility] [place] [facility] [address] [facility] [id number], [place] [address]- 8267 17 Jun, 2012 [facility] [place] [facility] [address] [facility] [id number] [place] [address]- 7897 Jun, IMMUNIZATIONS No Known Immunizations SOCIAL HISTORY Never Assessed REASON FOR VISIT intake PLAN OF CARE Activity Details Follow Up Next Available Reason: Follow-up VITAL SIGNS MEDICATIONS Medication Instructions Dosage Frequency Start Date End Date Duration Status HydrOXYzine HCl 25 MG Orally every 8 hrs 1 tablet as needed 8h May, 30 day(s) Unknown Tylenol Unknown Ibuprofen Unknown Fluoxetine HCl 20 mg Orally Once a day 1 capsule 24h May, 30 day(s) Unknown RESULTS No Results PROCEDURES Procedure Date Ordered Result Body Site Psych diagnostic evaluation, established patient May 25, 2018 INSTRUCTIONS MEDICATIONS ADMINISTERED No Known Medications MEDICAL (GENERAL) HISTORY Type Description Date Medical History Depression Medical History Epilepsy 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
--- OUTSIDE RECORDS SUMMARY | 2019-01-09 16:49 | XMS REPORT ---
[facility] Address [address] [place] [address] Care Team Providers Care Prism Measurer Name Role Phone DAVID CHOI Unavailable PROBLEMS Type Condition ICD9-CM Code [id number] Code Onset Dates Condition Status SNOMED Code Problem Morbid obesity E66.01 Active 890216204 Problem Mixed hyperlipidemia E78.2 Active 927099192 Problem Depression with anxiety F41.8 Active 67323630 Problem Dysthymia F34.1 Active 16046709 Problem Non compliance w medication regimen Z91.14 Active 331308945 Problem Acne L70.9 Active 99382157 Problem Insulin resistance E88.81 Active 784756998 Problem Acute seasonal allergic rhinitis, unspecified trigger J30.2 Active 070359088 ALLERGIES No Information ENCOUNTERS Encounter Location Date Diagnosis [place] [address] [address] Jun, [place] [address] [address] May, Depression with anxiety F41.[address] [address] May, History of epilepsy Z86.69 [place] [address] [address]- [address] May, History of seizures Z87.898 ; Non compliance w medication regimen Z91.14 and Dysthymia F34.1 [place] [address] [address] Mar, History of seizures Z87.898 ; Frequent headaches R51 ; Non compliance w medication regimen Z91.14 and BMI 45.0-49.9, adult Z68.42 [place] [address] [place] [address] Dec, Insulin resistance E88.81 ; BMI 40.0-44.9, adult Z68.41 ; Frequent headaches R51 and Non compliance w medication regimen Z91.14 [place] [address] [place] [id number] [place] [address]- 2014 Nov, [place] [address] [address]- 14[address] Nov, Insulin resistance E88.81 [place] [address] [address]- 2113 Nov, [address] [address] Nov, Hospital discharge follow-up Z09 ; BMI 40.0-44.9, adult Z68.41 and Metabolic syndrome E88.81 [place] [id number] [place] [address]- 7199 Oct, Hospital discharge follow-up Z09 ; BMI 40.0-44.9, adult Z68.41 ; Morbid obesity E66.01 ; Metabolic syndrome E88.81 ; Non compliance w medication regimen Z91.14 and Seizure R56.9 [facility] [place] [id number] [place] [address]116 Sep, Sore throat J02.9 ; Right acute serous otitis media, recurrence not specified H65.01 and Acute seasonal allergic rhinitis, unspecified trigger J30.2 [facility] [place] [id number] [place] [address] -3241 Jul, Sore throat J02.9 and Pharyngitis due to other organism J02.8 [facility] [place] [id number] [place] [address] 8[address] -[address] February, Sore throat J02.9 ; Acute middle ear effusion, bilateral H65.193 and Strep pharyngitis J02.0 [place] [address] [place] [address] 29[address] Aug, [place] [address] [place] [id number] [place] [address] 16005- 8912 May, Acute otitis externa of both ears, unspecified type H60.503 ; Morbid obesity E66.01 and Non compliance w medication regimen Z91.[address] [address]- [address] February, Morbid obesity E66.01 ; Anxiety associated with depression F41.8 ; Episodic tension-type headache, not intractable G44.219 and High blood pressure (not hypertension) R03.[address] [address]- [address] Jan, Morbid obesity E66.01 ; History of epilepsy Z86.69 ; Metabolic syndrome E88.81 ; Anxiety associated with depression F41.8 and Hyperlipidemia E78.5 [place] [id number] [place] [address]16- 7785 Dec, Morbid obesity E66.01 ; Acne L70.9 ; Family history of diabetes mellitus Z83.3 ; Anxiety associated with depression F41.8 ; Insulin resistance E88.81 ; Metabolic syndrome E88.81 and Hyperlipidemia E78.5 [place] [id number] [place] [address] 24072- 4511 Dec, [place] [id number] [place] [address] 58493- 5976 Nov, Routine health maintenance Z00.00 ; Morbid obesity E66.01 ; Acne L70.9 and Family history of diabetes mellitus Z83.3 [place] [id number] [place] [address] 70683- 2379 Nov, Routine health maintenance Z00.00 ; Morbid obesity E66.01 ; Morbid obesity due to excess calories E66.01 ; History of epilepsy Z86.69 ; Acne L70.9 ; Family history of diabetes mellitus Z83.3 ; Family history of cancer Z80.9 ; Anxiety associated with depression F41.8 and 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 [facility] [address] [address] Jun, Infective otitis externa 380.10 [facility] [address] [place] [id number] [place] [address] 57938- 1557 May, Sore throat 462 and Sinusitis 473.9 [facility] [address] [place] [id number] [place] [address] 99701- 7760 11 Mar, 2015 Sinusitis, acute 461.9 [facility] [address] [place] [id number] [place] [address] 12836- 5948 Jan, [facility] [address] [place] [id number] [place] [address] 92113- 5610 Jan, [facility] [address] [place] [id number] [place] [address] 72540- 2825 Aug, [facility] [address] [place] [id number] [place] [address] 88413- 0042 Aug, [facility] [id number] [place] [address] 52111- 7987 May, [facility] [address] [place] [id number] [place] [address] 89250- 1110 May, [facility] [id number] [address] 83[address] Mar, [facility] [id number] [place] [address] 99610- 7917 Mar, [facility] [address] [address] 99[address] Mar, [facility] [address] [place] [id number] [place] [address] 73200- 6718 Mar, [facility] [id number] [address] 1399 Mar, [facility] [address] [place] [id number] [place] [address] [place] [address]23 18 Mar, 2014 [facility] [address] [id number] [place] [address]- 9902 18 Mar, 2014 [facility] [place] [facility] [address] [id number] [place] [address]- 0074 18 Mar, 2014 [facility] [address] [id number] [place] [address]- 6939 15 Oct, 2013 [facility] [place] [facility] [address] [id number] [place] [address]- 2118 14 Oct, 2013 [facility] [address] [id number] [place] [address]- 5930 14 Oct, 2013 [facility] [place] [facility] [address] [id number] [place] [address]- 5947 Oct, [facility] [address] [id number] [place] [address]- 6273 Oct, [facility] [place] [facility] [address] [id number] [place] [address]- 8616 Oct, [facility] [address] [id number] [place] [address]- 5123 Oct, [facility] [address] [id number] [place] [address]- 7077 Sep, [facility] [place] [facility] [address] [id number] [place] [address]- 0536 Sep, [facility] [place] [facility] [address] [id number] [address]- 5441 Sep, [facility] [place] [facility] [address] [id number] [place] [address]- 5213 Sep, [facility] [place] [facility] [address] [id number] [place] [address]- 4174 Sep, [facility] [place] [facility] [address] [id number] [address] 17 Jun, 2012 [facility] [place] [facility] [address] [facility] [id number] [place] [address] Jun, IMMUNIZATIONS No Known Immunizations SOCIAL HISTORY Never Assessed REASON FOR VISIT Lab Orders PLAN OF CARE VITAL SIGNS MEDICATIONS Unknown Medications RESULTS No Results PROCEDURES No Known procedures INSTRUCTIONS MEDICATIONS ADMINISTERED No Known Medications MEDICAL (GENERAL) HISTORY Type Description Date Medical History Depression Medical History Epilepsy Medical History CAHTO in Left ear Surgical History 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
--- OUTSIDE RECORDS SUMMARY | 2019-01-09 16:49 | XMS REPORT ---
Author Author DAVID CHOI Organization [facility] Address [address] [place] [address] Care Team Providers Care Gasket Supervisor Name Role Phone AMANDA CHOITA Unavailable PROBLEMS Type Condition ICD9-CM Code [id number] Code Onset Dates Condition Status SNOMED Code Problem Mixed hyperlipidemia E78.2 Active 236485045 Problem Morbid obesity E66.01 Active 555592714 Problem Dysthymia F34.1 Active 62333025 Problem Depression with anxiety F41.8 Active 33892935 Problem Acne L70.9 Active 70909675 Problem Non compliance w medication regimen Z91.14 Active 549418608 Problem Acute seasonal allergic rhinitis, unspecified trigger J30.2 Active 804496637 Problem Insulin resistance E88.81 Active 027668431 ALLERGIES No Information ENCOUNTERS Encounter Location Date Diagnosis [facility] [address] [address] Nov, [facility] [address] 39207 [address] Nov, [facility] [address] [address]- [address]38 Oct, Dysthymia F34.1 ; Seizure R56.9 ; Dermatitis L30.9 and BMI 45.0-49.9, adult Z68.42 [facility] [address] [place] [id number] [place] [address] 72746- 7994 Sep, [facility] [address] [address]- [address] May, Depression with anxiety F41.8 [facility] [address] 48763- 3633 May, History of epilepsy Z86.69 [place] [address] [place] [id number] [place] [address] 68692- 0710 02 May, 2018 History of seizures Z87.898 ; Non compliance w medication regimen Z91.14 and Dysthymia F34.1 [place] [address] [place] [id number] [place] [address] 20838- 2199 13 Mar, 2018 History of seizures Z87.898 ; Frequent headaches R51 ; Non compliance w medication regimen Z91.14 and BMI 45.0-49.9, adult Z68.42 [place] [address] [place] [id number] [place] [address] 36731- 9491 Dec, Insulin resistance E88.81 ; BMI 40.0-44.9, adult Z68.41 ; Frequent headaches R51 and Non compliance w medication regimen Z91.14 [place] [address] [place] [id number] [place] [address] 42859- 9420 27 Nov, 2017 [place] [address] [place] [id number] [place] [address] 36128- 2602 Nov, Insulin resistance E88.81 [place] [address] [place] [id number] [place] [address] 55747- 9262 05 Nov, 2017 [place] [address] [place] [id number] [place] [address] 48614- 0705 Nov, Hospital discharge follow-up Z09 ; BMI 40.0-44.9, adult Z68.41 and Metabolic syndrome E88.81 [place] [address] [place] [id number] [place] [address] 58279- 8700 30 Oct, 2017 Hospital discharge follow-up Z09 ; BMI 40.0-44.9, adult Z68.41 ; Morbid obesity E66.01 ; Metabolic syndrome E88.81 ; Non compliance w medication regimen Z91.14 and Seizure R56.[address] [facility] [address] [place] [address] 14036 -1614 16 Sep, 2017 Sore throat J02.9 ; Right acute serous otitis media, recurrence not specified H65.01 and Acute seasonal allergic rhinitis, unspecified trigger J30.2 [facility] [address] [place] [id number] [place] [address] 27004 -8019 Jul, Sore throat J02.9 and Pharyngitis due to other organism J02.8 [facility] [address] [place] [id number] [place] [address]2913 -0350 February, Sore throat J02.9 ; Acute middle ear effusion, bilateral H65.193 and Strep pharyngitis J02.0 [place] [address] [address]- 4854 Aug, [address] [address]- [address] May, Acute otitis externa of both ears, unspecified type H60.503 ; Morbid obesity E66.01 and Non compliance w medication regimen Z91.[address] 45[address]- 7499 February, Morbid obesity E66.01 ; Anxiety associated with depression F41.8 ; Episodic tension-type headache, not intractable G44.219 and High blood pressure (not hypertension) R03.[address] 07955- 5966 Jan, Morbid obesity E66.01 ; History of epilepsy Z86.69 ; Metabolic syndrome E88.81 ; Anxiety associated with depression F41.8 and Hyperlipidemia E78.5 [place] [id number] [place] [address] 80648- 3373 Dec, Morbid obesity E66.01 ; Acne L70.9 ; Family history of diabetes mellitus Z83.3 ; Anxiety associated with depression F41.8 ; Insulin resistance E88.81 ; Metabolic syndrome E88.81 and Hyperlipidemia E78.5 [place] [id number] [place] [address] 77362- 8342 Dec, [place] [address] 40[address]- 7734 Nov, Routine health maintenance Z00.00 ; Morbid obesity E66.01 ; Acne L70.9 and Family history of diabetes mellitus Z83.3 [place] [address] [place] [id number] [place] [address] 41311- 7525 25 Nov, 2015 Routine health maintenance Z00.00 ; Morbid obesity E66.01 ; Morbid obesity due to excess calories E66.01 ; History of epilepsy Z86.69 ; Acne L70.9 ; Family history of diabetes mellitus Z83.3 ; Family history of cancer Z80.9 ; Anxiety associated with depression F41.8 and 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 [place] [address] [place] [id number] [place] [address] 07815- 4118 Jun, Infective otitis externa 380.10 [place] [address] [place] [id number] [place] [address] 10813- 2298 May, Sore throat 462 and Sinusitis 473.9 [place] [address] [place] [id number] [place] [address] 93942- 6377 11 Mar, 2015 Sinusitis, acute 461.9 [place] [address] [place] [id number] [place] [address] 01035- 2283 14 Jan, 2015 [place] [address] [place] [id number] [place] [address] 53280- 1407 Jan, [place] [address] [place] [address] 61591- 2226 Aug, [facility] [address] [place] [id number] [place] [address] 34550- 0687 Aug, [facility] [address] [place] [id number] [place] [address] 89979- 3384 May, [place] [address] [place] [id number] [place] [address] 26585- 6663 May, [facility] [address] [place] [address] 88306990- 3040 Mar, [facility] [address] [place] [id number] [place] [address]- 1728 Mar, [facility] [address] [id number] [place] [address]- 3463 Mar, [facility] [place] [facility] [address] [id number] [place] [address]- 6237 24 Mar, 2014 [facility] [place] [facility] [address] [id number] [place] [address]- 9528 Mar, [facility] [place] [facility] [address] [id number] [place] [address]- 5175 Mar, [facility] [place] [facility] [address] [id number] [place] [address]- 6319 Mar, [facility] [place] [facility] [address] [id number] [place] [address]- 7667 Mar, [facility] [place] [facility] [address] [id number] [place] [address]- 0893 15 Oct, 2013 [facility] [place] [facility] [address] [id number] [place] [address]- 5659 14 Oct, 2013 [facility] [place] [facility] [address] [id number] [place] [address]- 8448 14 Oct, 2013 [facility] [place] [facility] [address] [id number] [place] [address]- 8241 Oct, [facility] [place] [facility] [address] [id number] [place] [address]- 2638 Oct, [facility] [place] [facility] [address] [id number] [place] [address]- 4420 Oct, [facility] [place] [facility] [address] [id number] [place] [address]- 4281 Oct, [facility] [place] [facility] [address] [id number] [place] [address]- 8650 Sep, [facility] [place] [facility] [address] [id number] [place] [address]- 6440 Sep, [facility] [address] [facility] [id number] [place] [address]- 2546 Sep, [facility] [address] [facility] [id number], [place] [address]- 2546 Sep, [facility] [address] [facility] [id number], [place] [address]- 2546 Sep, [facility] [address] [facility] [id number], [place] [address]- 2546 Jun, [facility] [address] [facility] [id number], [place] [address]- 2546 Jun, IMMUNIZATIONS No Known Immunizations SOCIAL HISTORY Never Assessed REASON FOR VISIT possible flu symptoms. sister was just dx with influenza A. manuel is seeing pt on the nurse visit. [email or web address] PLAN OF CARE VITAL SIGNS Height 65 in 2018-12-06 Weight 274.2 lbs 2018-12-06 Temperature 97.8 degrees Fahrenheit 2018-12-06 BMI 45.62 kg/m2 2018-12-06 MEDICATIONS Medication Instructions Dosage Frequency Start Date End Date Duration Status Tamiflu 75 MG Orally Oncee a day 1 capsule Nov, 10 days Active Fluoxetine HCl 20 mg Orally Once a day 1 capsule 24h May, 90 days Active Keppra 500 mg Orally Twice a day 1 tablet 12h 90 days Active Tylenol Active HydrOXYzine HCl 25 MG Orally every 8 hrs 1 tablet as needed 8h May, 30 day(s) Active Ibuprofen Active RESULTS No Results PROCEDURES No Known procedures INSTRUCTIONS MEDICATIONS ADMINISTERED No Known Medications MEDICAL (GENERAL) HISTORY Type Description Date Medical History Depression Medical History Epilepsy Medical History AMBLER in Left ear Surgical History 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
--- OUTSIDE RECORDS SUMMARY | 2019-01-09 16:50 | XMS REPORT ---
Author Author ROSELIZA Caldwell Organization [facility] Address [address] [place] [address] Care Team Providers Care Farm Butcher Name Role Phone LIZA ROSE Unavailable PROBLEMS Type Condition ICD9-CM Code YMK38-PL Code Onset Dates Condition Status SNOMED Code Problem Mixed hyperlipidemia E78.2 Active 273338172 Problem Insulin resistance E88.81 Active 430747721 Problem Acute seasonal allergic rhinitis, unspecified trigger J30.2 Active 920506052 Problem Anxiety associated with depression F41.8 Active 985121471 Problem Morbid obesity E66.01 Active 833923053 Problem Non compliance w medication regimen Z91.14 Active 533591022 Problem Acne L70.9 Active 48361855 ALLERGIES No Information ENCOUNTERS Encounter Location Date Diagnosis [facility] [id number] [place] [address]177- 3927 13 Mar, 2018 History of seizures Z87.898 ; Frequent headaches R51 ; Non compliance w medication regimen Z91.14 and BMI 45.0-49.9, adult Z68.42 [place] [id number] [place] [address] 82382- 1766 Dec, Insulin resistance E88.81 ; BMI 40.0-44.9, adult Z68.41 ; Frequent headaches R51 and Non compliance w medication regimen Z91.14 [facility] [id number] [place] [address] 85463- 9598 Nov, [place] [address] [address]- 68[address] Nov, Insulin resistance E88.81 [place] [id number] [place] [address] 06059- 3839 Nov, [place] [address] [place] [address]- 7[address] Nov, Hospital discharge follow-up Z09 ; BMI 40.0-44.9, adult Z68.41 and Metabolic syndrome E88.[address] [address]- [address] Oct, Hospital discharge follow-up Z09 ; BMI 40.0-44.9, adult Z68.41 ; Morbid obesity E66.01 ; Metabolic syndrome E88.81 ; Non compliance w medication regimen Z91.14 and Seizure R56.9 [facility] [address] [address] Sep, Sore throat J02.9 ; Right acute serous otitis media, recurrence not specified H65.01 and Acute seasonal allergic rhinitis, unspecified trigger J30.2 [facility] [address] [address] Jul, Sore throat J02.9 and Pharyngitis due to other organism J02.8 [facility] [address] [address] February, Sore throat J02.9 ; Acute middle ear effusion, bilateral H65.193 and Strep pharyngitis J02.[address] 9[address]10- 4168 Aug, [address] 8[address]23- 2237 May, Acute otitis externa of both ears, unspecified type H60.503 ; Morbid obesity E66.01 and Non compliance w medication regimen Z91.[address] [address]- 289[address] February, Morbid obesity E66.01 ; Anxiety associated with depression F41.8 ; Episodic tension-type headache, not intractable G44.219 and High blood pressure (not hypertension) R03.[address] 56[address]- 0754 Jan, Morbid obesity E66.01 ; History of epilepsy Z86.69 ; Metabolic syndrome E88.81 ; Anxiety associated with depression F41.8 and Hyperlipidemia E78.[address] 11329- 6433 Dec, Morbid obesity E66.01 ; Acne L70.9 ; Family history of diabetes mellitus Z83.3 ; Anxiety associated with depression F41.8 ; Insulin resistance E88.81 ; Metabolic syndrome E88.81 and Hyperlipidemia E78.[address] 91303- 2833 Dec, [address] 71459- 4389 Nov, Routine health maintenance Z00.00 ; Morbid obesity E66.01 ; Acne L70.9 and Family history of diabetes mellitus Z83.[address] 16174- 3412 Nov, Routine health maintenance Z00.00 ; Morbid obesity E66.01 ; Morbid obesity due to excess calories E66.01 ; History of epilepsy Z86.69 ; Acne L70.9 ; Family history of diabetes mellitus Z83.3 ; Family history of cancer Z80.9 ; Anxiety associated with depression F41.8 and 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 80913- 5512 Jun, Infective otitis externa 380.[address] 61357- 9334 May, Sore throat 462 and Sinusitis 473.[address] 32930- 6225 11 Mar, 2015 Sinusitis, acute 461.[address] 17272- 4134 14 Jan, [address] [place] [address]- 9316 Jan, [facility] [place] [facility] [address] [id number] [place] [address]- 9661 Aug, [facility] [place] [facility] [address] [id number] [place] [address]- 7759 Aug, [facility] [place] [facility] [address] [id number] [place] [address]- 4962 May, [facility] [place] [facility] [address] [id number] [place] [address]- 2801 May, [facility] [place] [facility] [address] [id number] [place] [address]- 3964 Mar, [facility] [place] [facility] [address] [id number] [place] [address]- 9274 Mar, [facility] [place] [facility] [address] [id number] [place] [address]- 3828 Mar, [facility] [place] [facility] [address] [id number] [place] [address]- 1158 Mar, [facility] [place] [facility] [address] [id number] [place] [address]- 5608 Mar, [facility] [place] [facility] [address] [id number] [place] [address]- 1510 Mar, [facility] [place] [facility] [address] [id number] [place] [address]- 5518 Mar, [facility] [place] [facility] [address] [id number] [place] [address]- 9843 Mar, [facility] [place] [facility] [address] [id number] [place] [address]- 8528 15 Oct, 2013 [facility] [place] [facility] [address] [id number] [place] [address]- 3341 Oct, [facility] [place] [facility] [address] [id number] [place] [address]- 1620 Oct, [facility] [address] [facility] [id number] [address]- 6084 Oct, [facility] [address] [facility] [id number] [place] [address]- 0120 Oct, [facility] [address] [facility] [id number] [place] [address]- 2666 Oct, [facility] [address] [facility] [id number] [place] [address]- 9646 Oct, [facility] [address] [facility] [id number] [place] [address]- 0476 Sep, [facility] [address] [facility] [id number] [place] [address]- 4995 Sep, [facility] [address]65100[place] [address]- 8040 Sep, [facility] [address]65100[place] [address]- 2296 Sep, [facility] [address] [id number] [address]- 5543 Sep, [facility] [address] [id number] [address]- 7060 Jun, [facility] [address] [id number] [address]- 5556 Jun, IMMUNIZATIONS No Known Immunizations SOCIAL HISTORY Never Assessed REASON FOR VISIT FYI only PLAN OF CARE VITAL SIGNS MEDICATIONS No Known Medications RESULTS No Results PROCEDURES No Known procedures INSTRUCTIONS MEDICATIONS ADMINISTERED No Known Medications MEDICAL (GENERAL) HISTORY Type Description Date Medical History Depression Medical History Epilepsy Medical History [place] in Left ear Surgical History 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
--- OUTSIDE RECORDS SUMMARY | 2019-01-09 16:50 | XMS REPORT ---
Author Author ROSELIZA Organization [facility] Address [address] [place] [address] Care Team Providers Care Buttonhole Marker Name Role Phone LIZA ROSE Unavailable PROBLEMS Type Condition ICD9-CM Code FYC39-JC Code Onset Dates Condition Status SNOMED Code Problem Mixed hyperlipidemia E78.2 Active 014046727 Problem Insulin resistance E88.81 Active 240491743 Problem Acute seasonal allergic rhinitis, unspecified trigger J30.2 Active 684559404 Problem Anxiety associated with depression F41.8 Active 064378585 Problem Morbid obesity E66.01 Active 675013544 Problem Non compliance w medication regimen Z91.14 Active 877347369 Problem Acne L70.9 Active 45195832 ALLERGIES Substance Reaction Event Type Date Status Tegretol Unknown Drug Allergy Oct, Active Sulfamethoxazole-Trimethoprim Unknown Drug Allergy Oct, Active Penicillin V Potassium Unknown Drug Allergy Oct, Active Keppra Unknown Drug Allergy Oct, Active Ibuprofen Kidney function Drug Allergy Oct, Active ENCOUNTERS Encounter Location Date Diagnosis [place] [address] [place] [address] 94326- 6204 13 Mar, 2018 History of seizures Z87.898 ; Frequent headaches R51 ; Non compliance w medication regimen Z91.14 and BMI 45.0-49.9, adult Z68.42 [facility] [address] [place] [address] 21536- 3973 01 Dec, 2017 Insulin resistance E88.81 ; BMI 40.0-44.9, adult Z68.41 ; Frequent headaches R51 and Non compliance w medication regimen Z91.14 [facility] [id number] [address]- 3018 Nov, [facility] [address] [place] [address] 65598- 2394 Nov, Insulin resistance E88.81 [place] [address] [place] [address] [id number] [place] [address] 38600- 1848 Nov, [place] [address] [place] [id number] [place] [address] 71640- 4746 Nov, Hospital discharge follow-up Z09 ; BMI 40.0-44.9, adult Z68.41 and Metabolic syndrome E88.81 [place] [address] [place] [address] [id number] [place] [address] 73993- 9136 Oct, Hospital discharge follow-up Z09 ; BMI 40.0-44.9, adult Z68.41 ; Morbid obesity E66.01 ; Metabolic syndrome E88.81 ; Non compliance w medication regimen Z91.14 and Seizure R56.9 [facility] [place] [id number] [place] [address] 42577 -6654 Sep, Sore throat J02.9 ; Right acute serous otitis media, recurrence not specified H65.01 and Acute seasonal allergic rhinitis, unspecified trigger J30.2 [facility] [place] [id number] [place] [address] 47355 -6705 Jul, Sore throat J02.9 and Pharyngitis due to other organism J02.8 [facility] [place] [id number] [place] [address] 55082 -7995 February, Sore throat J02.9 ; Acute middle ear effusion, bilateral H65.193 and Strep pharyngitis J02.0 [place] [address] [place] [id number] [place] [address] 40464- 8048 Aug, [address] [address]- 4231 May, Acute otitis externa of both ears, unspecified type H60.503 ; Morbid obesity E66.01 and Non compliance w medication regimen Z91.14 [place] [address] [place] [id number] [place] [address] 84927- 6904 February, Morbid obesity E66.01 ; Anxiety associated with depression F41.8 ; Episodic tension-type headache, not intractable G44.219 and High blood pressure (not hypertension) R03.[address] 31006- 3505 Jan, Morbid obesity E66.01 ; History of epilepsy Z86.69 ; Metabolic syndrome E88.81 ; Anxiety associated with depression F41.8 and Hyperlipidemia E78.[address] 02739- 9562 Dec, Morbid obesity E66.01 ; Acne L70.9 ; Family history of diabetes mellitus Z83.3 ; Anxiety associated with depression F41.8 ; Insulin resistance E88.81 ; Metabolic syndrome E88.81 and Hyperlipidemia E78.[address] 87795- 9731 Dec, [address] 67321- 5965 Nov, Routine health maintenance Z00.00 ; Morbid obesity E66.01 ; Acne L70.9 and Family history of diabetes mellitus Z83.[address] 52390- 4287 Nov, Routine health maintenance Z00.00 ; Morbid obesity E66.01 ; Morbid obesity due to excess calories E66.01 ; History of epilepsy Z86.69 ; Acne L70.9 ; Family history of diabetes mellitus Z83.3 ; Family history of cancer Z80.9 ; Anxiety associated with depression F41.8 and 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 25663- 7330 Jun, Infective otitis externa 380.[address] 94266- 7939 May, Sore throat 462 and Sinusitis 473.[address] 44345- 2136 Mar, Sinusitis, acute 461.9 [facility] [place] [facility] [address] [id number] [place] [address]- 0329 14 Jan, 2015 [facility] [place] [facility] [address] [facility] [id number] [place] [address]- 7178 Jan, [facility] [place] [facility] [address] [place] [address] [id number] [place] [address]- 9422 Aug, [facility] [place] [facility] [id number] [place] [address], [place] [address]- 1326 Aug, [facility] [place] [facility] [address] [facility] [id number] [place] [address], [place] [address]- 5990 May, [facility] [place] [facility] [address] [facility] [id number] [place] [address], [place] [address]- 1909 May, [facility] [place] [facility] [id number] [place] [address], [place] [address]- 0275 Mar, [facility] [place] [facility] [address] [facility] [id number] [place] [address]- 3566 Mar, [facility] [place] [facility] [address] [place] [address]- 4281 Mar, [facility] [place] [facility] [address] [place] [id number] [place] [address]- 0026 Mar, [facility] [place] [facility] [address]65[address], [place] [address]- 0882 Mar, [facility] [place] [facility] [address] [facility] [id number], [place] [address]- 8360 Mar, [facility] [place] [facility] [address] [facility] [id number], [place] [address]- 3366 Mar, [facility] [place] [facility] [address] [facility] [id number], [place] [address]- 8444 Mar, [facility] [place] [facility] [address], [place] [address]- 4254 Oct, [facility] [place] [facility] [address] [facility] [id number] [address]- 8422 14 Oct, 2013 [facility] [address]- 3595 Oct, [facility] [address] [facility] [id number], [place] [address]- 4494 Oct, [facility] [address] [facility] [id number][place]- 7387 Oct, [facility] [address] [facility] [id number]- 7676 Oct, [facility] [address]- 6868 Oct, [facility] [address], [place] [address]- 6587 Sep, [facility] [address], [place] [address]- 0151 Sep, [facility] [address], [place] [address]- 3845 Sep, [facility] [address] 7004 Sep, [facility] [address] [id number] 0235 Sep, [facility] [address] [id number] 6898 Jun, [facility] [address] [facility] [id number] [address]- 9449 Jun, IMMUNIZATIONS No Known Immunizations SOCIAL HISTORY Never Assessed REASON FOR VISIT VC ER/seizure: was taken to ER Friday night, was able to get family to call 911 prior to seizure starting deisy mcginnis, ER records scanned to documents, States feels as if ongoing headaches has contributed to reoccurrance of seizure activity PLAN OF CARE Activity Details Follow Up 3 Months, prn Reason:chm VITAL SIGNS Height 65 in 2017-11-18 Weight 260.7 lbs 2017-11-18 Temperature 98.3 degrees Fahrenheit 2017-11-18 Heart Rate 84 bpm 2017-11-18 Respiratory Rate 20 2017-11-18 BMI 43.38 kg/m2 2017-11-18 Blood pressure systolic 122 mmHg 2017-11-18 Blood pressure diastolic 74 mmHg 2017-11-18 MEDICATIONS Medication Instructions Dosage Frequency Start Date End Date Duration Status Zyrtec Allergy 10 mg Orally Once a day 1 tablet 24h Sep, Nov, 30 day(s) Active RESULTS No Results PROCEDURES No Known procedures INSTRUCTIONS MEDICATIONS ADMINISTERED No Known Medications MEDICAL (GENERAL) HISTORY Type Description Date Medical History Depression Medical History Epilepsy Medical History [place] in Left ear Surgical History 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
--- OUTSIDE RECORDS SUMMARY | 2019-01-09 16:50 | XMS REPORT ---
Author Author ROSELIZA Caldwell Organization [facility] Address [address] [place] [address] Care Team Providers Care Terminal Gauger Name Role Phone LIZA ROSE Unavailable PROBLEMS Type Condition ICD9-CM Code QJQ45-OV Code Onset Dates Condition Status SNOMED Code Problem Mixed hyperlipidemia E78.2 Active 225871101 Problem Insulin resistance E88.81 Active 309214750 Problem Acute seasonal allergic rhinitis, unspecified trigger J30.2 Active 646300221 Problem Anxiety associated with depression F41.8 Active 099390034 Problem Morbid obesity E66.01 Active 786348492 Problem Non compliance w medication regimen Z91.14 Active 803953435 Problem Acne L70.9 Active 15211543 ALLERGIES No Information ENCOUNTERS Encounter Location Date Diagnosis [facility] [id number] [place] [address] 49225- 7172 13 Mar, 2018 History of seizures Z87.898 ; Frequent headaches R51 ; Non compliance w medication regimen Z91.14 and BMI 45.0-49.9, adult Z68.42 [place] [id number] [place] [address] 20320- 0969 Dec, Insulin resistance E88.81 ; BMI 40.0-44.9, adult Z68.41 ; Frequent headaches R51 and Non compliance w medication regimen Z91.14 [facility] [id number] [place] [address] 72470- 2465 Nov, [place] [address] [address]- 6391 Nov, Insulin resistance E88.81 [place] [address] [place] [id number] [place] [address] 08471- 7739 Nov, [place] [address] [place] [address]- 5939 Nov, Hospital discharge follow-up Z09 ; BMI 40.0-44.9, adult Z68.41 and Metabolic syndrome E88.[address] [address]- 6489 Oct, Hospital discharge follow-up Z09 ; BMI 40.0-44.9, adult Z68.41 ; Morbid obesity E66.01 ; Metabolic syndrome E88.81 ; Non compliance w medication regimen Z91.14 and Seizure R56.9 [facility] WALK IN [address] [address] -3657 Sep, Sore throat J02.9 ; Right acute serous otitis media, recurrence not specified H65.01 and Acute seasonal allergic rhinitis, unspecified trigger J30.2 [facility] WALK IN [address] 35[address] -9415 Jul, Sore throat J02.9 and Pharyngitis due to other organism J02.8 [facility] WALK IN [address] 212[address] -4875 February, Sore throat J02.9 ; Acute middle ear effusion, bilateral H65.193 and Strep pharyngitis J02.[address] [address]- 1858 Aug, [address] 39066- 3891 May, Acute otitis externa of both ears, unspecified type H60.503 ; Morbid obesity E66.01 and Non compliance w medication regimen Z91.[address] [address]- 8501 February, Morbid obesity E66.01 ; Anxiety associated with depression F41.8 ; Episodic tension-type headache, not intractable G44.219 and High blood pressure (not hypertension) R03.[address] 27986- 4639 Jan, Morbid obesity E66.01 ; History of epilepsy Z86.69 ; Metabolic syndrome E88.81 ; Anxiety associated with depression F41.8 and Hyperlipidemia E78.[address] 58421- 1748 Dec, Morbid obesity E66.01 ; Acne L70.9 ; Family history of diabetes mellitus Z83.3 ; Anxiety associated with depression F41.8 ; Insulin resistance E88.81 ; Metabolic syndrome E88.81 and Hyperlipidemia E78.[address] 11488- 4010 Dec, [address] 66479- 0049 Nov, Routine health maintenance Z00.00 ; Morbid obesity E66.01 ; Acne L70.9 and Family history of diabetes mellitus Z83.[address] 87618- 2904 Nov, Routine health maintenance Z00.00 ; Morbid obesity E66.01 ; Morbid obesity due to excess calories E66.01 ; History of epilepsy Z86.69 ; Acne L70.9 ; Family history of diabetes mellitus Z83.3 ; Family history of cancer Z80.9 ; Anxiety associated with depression F41.8 and 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 89956- 7231 Jun, Infective otitis externa 380.[address] 88414- 9866 May, Sore throat 462 and Sinusitis 473.[address] 08229- 3759 11 Mar, 2015 Sinusitis, acute 461.[address] 87185- 2173 14 Jan, [address] [place] [address]- 9717 Jan, [facility] [place] [facility] [address] [id number] [place] [address]- 3673 Aug, [facility] [place] [facility] [address] [id number] [place] [address]- 8735 Aug, [facility] [place] [facility] [address] [id number] [place] [address]- 8682 May, [facility] [place] [facility] [address] [id number] [place] [address]- 9534 May, [facility] [place] [facility] [address] [id number] [place] [address]- 3366 Mar, [facility] [place] [facility] [address] [id number] [place] [address]- 2649 Mar, [facility] [place] [facility] [address] [id number] [place] [address]- 7389 Mar, [facility] [place] [facility] [address] [id number] [place] [address]- 2112 Mar, [facility] [place] [facility] [address] [id number] [place] [address]- 1990 Mar, [facility] [place] [facility] [address] [id number] [place] [address]- 9453 Mar, [facility] [place] [facility] [address] [id number] [place] [address]- 2603 Mar, [facility] [place] [facility] [address] [id number] [place] [address]- 9037 Mar, [facility] [place] [facility] [address] [id number] [place] [address]- 4422 15 Oct, 2013 [facility] [place] [facility] [address] [id number] [place] [address]- 0986 Oct, [facility] [place] [facility] [address] [id number] [place] [address]- 9910 Oct, [facility] [address] [facility] [id number] [address]- 5626 Oct, [facility] [address] [facility] [id number] [address]- 9846 Oct, [facility] [address] [facility] [id number] [address]- 2546 Oct, [facility] [address]65[address] [address]- 6566 Oct, [facility] [address] [facility] [id number] [address]- 2037 Sep, [facility] [address] [facility] [id number] [place] [address]- 6476 Sep, [facility] [address]65[address] [address]- 9296 Sep, [facility] [id number] [address] Sep, [facility] [id number] [address] Sep, [facility] [id number] [address] Jun, [facility] [id number] [address] Jun, IMMUNIZATIONS No Known Immunizations SOCIAL HISTORY Never Assessed REASON FOR VISIT lab results PLAN OF CARE VITAL SIGNS MEDICATIONS Medication Instructions Dosage Frequency Start Date End Date Duration Status MetFORMIN HCl ER 500 mg Orally Once a day 1 tablet with evening meal 24h Nov, 90 days Active RESULTS No Results PROCEDURES No Known procedures INSTRUCTIONS MEDICATIONS ADMINISTERED No Known Medications MEDICAL (GENERAL) HISTORY Type Description Date Medical History Depression Medical History Epilepsy Medical History 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
--- OUTSIDE RECORDS SUMMARY | 2019-01-09 16:50 | XMS REPORT ---
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 Name Role Phone AMANDA CHOITA Unavailable PROBLEMS Type Condition ICD9-CM Code NFZ88-JN Code Onset Dates Condition Status SNOMED Code Problem Morbid obesity E66.01 Active 331553680 Problem Mixed hyperlipidemia E78.2 Active 053592721 Problem Depression with anxiety F41.8 Active 16357418 Problem Dysthymia F34.1 Active 37328017 Problem Non compliance w medication regimen Z91.14 Active 163813289 Problem Acne L70.9 Active 41892558 Problem Insulin resistance E88.81 Active 939660132 Problem Acute seasonal allergic rhinitis, unspecified trigger J30.2 Active 915061369 ALLERGIES Substance Reaction Event Type Date Status Tegretol Unknown Drug Allergy Mar, Active Sulfamethoxazole-Trimethoprim Unknown Drug Allergy Mar, Active Penicillin V Potassium Unknown Drug Allergy Mar, Active Keppra Unknown Drug Allergy Mar, Active Ibuprofen Kidney function Drug Allergy Mar, Active ENCOUNTERS Encounter Location Date Diagnosis [place] [id number] [place] [address]75- 0999 Jun, [place] [address] [place] [id number] [place] [address] 85038- 6439 Jun, [place] [address] [place] [id number] [place] [address] 39375- 9879 May, Depression with anxiety F41.8 [place] [address] [place] [id number] [place] [address] 24382- 0278 May, History of epilepsy Z86.69 [place] [id number] [place] [address] 38359- 8979 May, History of seizures Z87.898 ; Non compliance w medication regimen Z91.14 and Dysthymia F34.1 [facility] [address] [place] [id number] [place] [address] 32848- 4519 13 Mar, 2018 History of seizures Z87.898 ; Frequent headaches R51 ; Non compliance w medication regimen Z91.14 and BMI 45.0-49.9, adult Z68.42 [place] [address] 29735- 4725 Dec, Insulin resistance E88.81 ; BMI 40.0-44.9, adult Z68.41 ; Frequent headaches R51 and Non compliance w medication regimen Z91.14 [place] [address] 05061- 9980 27 Nov, 2017 [place] [address] 24238- 2611 Nov, Insulin resistance E88.81 [place] [address] 49916- 8979 05 Nov, 2017 [place] [address] 75824- 6750 Nov, Hospital discharge follow-up Z09 ; BMI 40.0-44.9, adult Z68.41 and Metabolic syndrome E88.81 [place] [address] 10724- 9341 Oct, Hospital discharge follow-up Z09 ; BMI 40.0-44.9, adult Z68.41 ; Morbid obesity E66.01 ; Metabolic syndrome E88.81 ; Non compliance w medication regimen Z91.14 and Seizure R56.9 [facility] [address] [place] [id number] [place] [address] 81926 -8511 16 Sep, 2017 Sore throat J02.9 ; Right acute serous otitis media, recurrence not specified H65.01 and Acute seasonal allergic rhinitis, unspecified trigger J30.2 [facility] [address] [place] [id number] [place] [address] 19595 -6794 Jul, Sore throat J02.9 and Pharyngitis due to other organism J02.8 [facility] [id number] [place] [address] 10730 -5473 February, Sore throat J02.9 ; Acute middle ear effusion, bilateral H65.193 and Strep pharyngitis J02.0 [place] [address] [place] [id number] [place] [address] 87606- 4961 Aug, [place] [address] 26507- 5716 May, Acute otitis externa of both ears, unspecified type H60.503 ; Morbid obesity E66.01 and Non compliance w medication regimen Z91.14 [place] [address] [place] [id number] [place] [address] 71628- 4601 February, Morbid obesity E66.01 ; Anxiety associated with depression F41.8 ; Episodic tension-type headache, not intractable G44.219 and High blood pressure (not hypertension) R03.0 [place] [address] [place] [id number] [place] [address] 94205- 5703 Jan, Morbid obesity E66.01 ; History of epilepsy Z86.69 ; Metabolic syndrome E88.81 ; Anxiety associated with depression F41.8 and Hyperlipidemia E78.5 [place] [id number] [place] [address] 18228- 7787 Dec, Morbid obesity E66.01 ; Acne L70.9 ; Family history of diabetes mellitus Z83.3 ; Anxiety associated with depression F41.8 ; Insulin resistance E88.81 ; Metabolic syndrome E88.81 and Hyperlipidemia E78.5 [place] [address] [place] [id number] [place] [address] 35849- 5187 Dec, [address] 53490- 0294 Nov, Routine health maintenance Z00.00 ; Morbid obesity E66.01 ; Acne L70.9 and Family history of diabetes mellitus Z83.[id number] [place] [address] 95699- 9798 25 Nov, 2016 Routine health maintenance Z00.00 ; Morbid obesity E66.01 ; Morbid obesity due to excess calories E66.01 ; History of epilepsy Z86.69 ; Acne L70.9 ; Family history of diabetes mellitus Z83.3 ; Family history of cancer Z80.9 ; Anxiety associated with depression F41.8 and 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 [place] [address] 88972- 5411 08 Jun, 2015 Infective otitis externa 380.10 [place] [address] 20685- 7066 May, Sore throat 462 and Sinusitis 473.9 [place] [address] [place] [id number] [place] [address] 76114- 5775 11 Mar, 2015 Sinusitis, acute 461.9 [place] [address] [place] [id number] [place] [address] 55245- 6346 14 Jan, 2015 [facility] [address] [place] [id number] [place] [address] 74694- 3772 Jan, [facility] [address] [place] [id number] [place] [address] 66216- 5800 Aug, [facility] [address] [place] [id number] [place] [address] 81647- 1163 Aug, [facility] [address] [place] [id number] [place] [address] 99816- 7323 May, [facility] [address] [place] [id number] [place] [address] 77804- 1646 May, [facility] [address] [place] [id number] [place] [address] 77634- 9599 Mar, [facility] [address] [place] [id number] [place] [address] 60492- 9864 Mar, [facility] [address] [place] [id number] [place] [address] 55776- 7464 Mar, [facility] [place] [facility] [address] [id number] [place] [address]- 8042 24 Mar, 2014 [facility] [place] [facility] [address] [id number] [place] [address]- 2109 Mar, [facility] [place] [facility] [address] [id number] [place] [address]- 6973 Mar, [facility] [place] [facility] [address] [id number] [place] [address]- 4736 Mar, [facility] [place] [facility] [address] [id number] [place] [address]- 9181 Mar, [facility] [place] [facility] [address] [id number] [place] [address]- 6561 15 Oct, 2013 [facility] [place] [facility] [address] [id number] [place] [address]- 5571 Oct, [facility] [place] [facility] [address] [id number] [place] [address]- 6029 14 Oct, 2013 [facility] [place] [facility] [address] [id number] [place] [address]- 5880 Oct, [facility] [place] [facility] [address] [id number] [place] [address]- 0957 Oct, [facility] [place] [facility] [address] [id number] [place] [address]- 8345 Oct, [facility] [place] [facility] [address] [id number] [place] [address]- 0569 07 Oct, 2013 [facility] [place] [facility] [address] [id number] [place] [address]- 0934 Sep, [facility] [place] [facility] [address] [id number] [place] [address]- 5130 Sep, [facility] [place] [facility] [address] [id number] [place] [address]- 3048 Sep, [facility] [place] [facility] [address] [facility] [id number] [place] [address]- 2546 Sep, [facility] [address] [facility] [id number] [place] [address]- 0146 Sep, [facility] [address] [facility] [id number] [place] [address]- 2546 Jun, [facility] [address] [facility] [id number] [place] [address]- 2546 08 Jun, 2012 IMMUNIZATIONS No Known Immunizations SOCIAL HISTORY Never Assessed REASON FOR VISIT Hospital f/u-REYNALDO aguirre PLAN OF CARE Activity Details Follow Up 4-6 weeks Reason:seizures VITAL SIGNS Height 65 in 2018-04-01 Weight 275.2 lbs 2018-04-01 Temperature 98.2 degrees Fahrenheit 2018-04-01 Heart Rate 76 bpm 2018-04-01 Respiratory Rate 18 2018-04-01 BMI 45.79 kg/m2 2018-04-01 Blood pressure systolic 120 mmHg 2018-04-01 Blood pressure diastolic 89 mmHg 2018-04-01 MEDICATIONS Medication Instructions Dosage Frequency Start Date End Date Duration Status Propranolol HCl 10 mg Orally Twice a day 1 tablet 12h Dec, 30 day(s) Not-Taking MetFORMIN HCl ER 500 mg Orally Once a day 1 tablet with evening meal 24h Nov, 30 days Not-Taking RESULTS Name Result Date Reference Range CT Scan : Head w/o Contrast 2018-04-03 PROCEDURES No Known procedures INSTRUCTIONS MEDICATIONS ADMINISTERED No Known Medications MEDICAL (GENERAL) HISTORY Type Description Date Medical History Depression Medical History Epilepsy Medical History [place] in Left ear Surgical History 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
--- NOTE | 2019-01-09 16:56 | ED Lower Extremity ---
General Stated Complaint: L ANKLE INJ Source: patient Exam Limitations: no limitations History of Present Illness Date Seen by Provider: Jan 09, 2019 Time Seen by Provider: 16:54 Initial Comments ER per private vehicle using a walker of her own with reports of left foot and ankle pain. This began during the night last night when she states that she had a seizure and struck this area on some part of her bed. She has pain with weightbearing to the dorsal aspect of the left foot. Onset: just prior to arrival Severity: moderate Pain/Injury Location: left foot, left ankle Method of Injury: unknown Modifying Factors: Worse With Movement Allergies and Home Medications Allergies Coded Allergies: amoxicillin (Verified Allergy, Unknown, 12/20/15) carbamazepine (Verified Allergy, Unknown, 12/20/15) Penicillins (Unverified Adverse Reaction, Intermediate, 12/20/15) Sulfa (Sulfonamide Antibiotics) (Unverified Adverse Reaction, Intermediate , 12/20/15) Home Medications Ciprofloxacin HCl 500 Mg Tablet, 500 MG PO BID Prescribed by: ERIKA KRAUSE on 10/09/181810 Levetiracetam 500 Mg Tablet, 500 MG PO BID Prescribed by: ERIKA KRAUSE on 10/09/181810 Nitrofurantoin Macrocrystal 100 Mg Capsule, 100 MG PO BID Prescribed by: HAMMAD ROACH on 11/14/172034 Patient Home Medication List Home Medication List Reviewed: Yes Review of Systems Constitutional: see HPI EENTM: see HPI Respiratory: no symptoms reported Cardiovascular: no symptoms reported Genitourinary: no symptoms reported Musculoskeletal: see HPI Skin: no symptoms reported Psychiatric/Neurological: No Symptoms Reported Past Lndulza-Mtgwdd-Tkoove Hx Patient Social History Type Used: Cigarettes 2nd Hand Smoke Exposure: No Recent Foreign Travel: No Contact w/Someone Who Travel: No Recent Hopitalizations: No Immunizations Up To Date Tetanus Booster (TDap): Unknown PED Vaccines UTD: Yes Date of Pneumonia Vaccine: Apr 19, 2012 Date of Influenza Vaccine: Apr 19, 2012 Seasonal Allergies Seasonal Allergies: Yes Past Medical History Surgeries: Yes Adenoidectomy, Ear Surgery, Nephrectomy, Renal, Tonsillectomy Respiratory: No Cardiac: Yes High Cholesterol, Hypertension Neurological: Yes Headaches /Migraines, Seizure Disorder Reproductive Disorders: No Genitourinary: Yes Gastrointestinal: No Musculoskeletal: No Endocrine: No HEENT: Yes (S/P BMT'S ) Chronic Ear Infection Hearing Impairment: Hard of Hearing Cancer: No Psychosocial: Yes Anxiety, Depression Integumentary: No Blood Disorders: No Family Medical History No Pertinent Family Hx Physical Exam Vital Signs Capillary Refill : Height, Weight, BMI Height: 5'8.00" Weight: 253lbs. oz. 114.300041ei; 41.43 BMI Method:Stated General Appearance: WD/WN, no apparent distress HEENT: PERRL/EOMI, normal ENT inspection Respiratory: no respiratory distress, no accessory muscle use Hips: bilateral hip non-tender, bilateral hip normal inspection, bilateral hip normal range of motion Legs: bilateral leg non-tender, bilateral leg normal inspection, bilateral leg normal range of motion Knees: bilateral knee non-tender, bilateral knee normal inspection, bilateral knee normal range of motion Ankles: left ankle pain, left ankle soft tissue tenderness, left ankle other ( no swelling ecchymosis deformity or abrasion) Feet: bilateral foot non-tender, bilateral foot normal inspection, bilateral foot normal range of motion Neurologic/Psychiatric: alert, normal mood/affect, oriented x 3 Skin: normal color, warm/dry Progress/Results/Core Measures Results/Orders My Orders Orders - CELIA HUGHES APRN Ankle, Left, 3 Views (01/09/19 16:53) Foot, Left, 3 Views (01/09/19 16:53) Rx-Hydrocodone/Apap 5-325 Mg (Rx-Vicodin (01/09/19 17:00) Departure Communication (Admissions) States she only has one kidney and is to avoid ibuprofen or other NSAIDs Impression Primary Impression: Foot contusion Disposition: 01 HOME, SELF-CARE Condition: Stable Departure-Patient Inst. Decision time for Depature: 16:55 Referrals: [facility] (PCP/Family) Primary Care Physician Patient Instructions: Contusion (DC) Add. Discharge Instructions: Elevate the foot, ice pack, Tylenol. CELIA HUGHES APRN Jan 09, 2019 16:56
--- OUTSIDE RECORDS SUMMARY | 2019-01-09 16:56 | XMS REPORT | Continuity of Care Document ---
Author Author [facility] Address Unknown Phone Unavailable Allergies Active Description Code Type Severity Reaction Onset Reported/Identified Relationship to Patient Clinical Status Yes Penicillins Drug Allergy N/A N/A 06/27/2012 Yes Sulfa(Sulfonamide Antibiotics) Drug Allergy N/A N/A 06/27/2012 Yes Tegretol Drug Allergy N/A N/A 06/27/2012 Yes Keppra 500 mg tablet Drug Allergy N/A N/A 07/06/2012 Yes Penicillins [id number] Drug Allergy Moderate N/A 12/20/2015 Yes Sulfa (Sulfonamide Antibiotics) [id number] Drug Allergy Moderate N/A 2015 Yes amoxicillin [id number] Drug Allergy Unknown N/A 12/20/2015 Yes carbamazepine [id number] Drug Allergy Unknown N/A 12/20/2015 Medications There [...] AND OTHER ECZEMA UNSPECIFIED CAUSE 09/20/2013 MALIA MYEERS APRNCY N 692.9 CONTACT DERMATITIS AND OTHER [...] INFECTIONS OF UNSPECIFIED SITE 10/26/2013 GARCIA CASHERO MARKETING SALES REPRESENTATIVE, NOEL N 380.4 IMPACTED CERUMEN 10/26/2013 GARCIA CASHERO MARKETING SALES REPRESENTATIVE, NOEL N 465.9 ACUTE UPPER RESPIRATORY INFECTIONS OF UNSPECIFIED SITE 10/26/2013 REED MARKETING SALES REPRESENTATIVE, GEOFF R 380.4 IMPACTED CERUMEN 10/26/2013 REED MARKETING SALES REPRESENTATIVE, GEOFF R 465.9 ACUTE UPPER RESPIRATORY INFECTIONS OF UNSPECIFIED SITE 10/26/2013 GARCIA CASHERO MARKETING SALES REPRESENTATIVE, NOEL N 380.4 IMPACTED CERUMEN 10/26/2013 GARCIA CASHERO MARKETING SALES REPRESENTATIVE, NOEL N 465.9 ACUTE UPPER RESPIRATORY INFECTIONS OF UNSPECIFIED SITE 10/26/2013 380.4 IMPACTED CERUMEN 10/26/2013 465.9 ACUTE UPPER RESPIRATORY INFECTIONS OF UNSPECIFIED SITE 11/01/2013 GARCIA CASHERO MARKETING SALES REPRESENTATIVE, NOEL N 278.00 OBESITY 11/01/2013 GARCIA CASHERO MARKETING SALES REPRESENTATIVE, NOEL N 626.0 AMENORRHEA 11/01/2013 BRIANNA LONGON, GEOFF R 278.00 OBESITY 11/01/2013 REED MARKETING SALES REPRESENTATIVE, GEOFF R 626.0 AMENORRHEA 11/01/2013 GARCIA CASHERO MARKETING SALES REPRESENTATIVE, NOEL N 278.00 OBESITY 11/01/2013 GARCIA CASHERO MARKETING SALES REPRESENTATIVE, NOEL N 626.0 AMENORRHEA 11/01/2013 278.00 OBESITY 11/01/2013 626.0 AMENORRHEA 11/02/2013 GARCIA CASHERO MARKETING SALES REPRESENTATIVE, NOEL N 784.49 OTHER VOICE AND RESONANCE DISORDERS 11/02/2013 GARCIA CASHERO MARKETING SALES REPRESENTATIVE, NOEL N 786.2 COUGH 11/02/2013 BRIANNA LONGON GEOFF R 784.49 OTHER VOICE AND RESONANCE DISORDERS 11/02/2013 BRIANNA LONGON GEOFF R 786.2 COUGH 11/02/2013 GARCIA CASHERO MARKETING SALES REPRESENTATIVE NOEL N 784.49 OTHER VOICE AND RESONANCE DISORDERS 11/02/2013 GARCIA CASHERO MARKETING SALES REPRESENTATIVE, NOEL N 786.2 COUGH 11/02/2013 784.49 OTHER [...] 368.8 OTHER SPECIFIED VISUAL DISTURBANCES 04/06/2014 REED MARKETING SALES REPRESENTATIVE, GEOFF R 784.0 HEADACHE 04/06/2014 REED MARKETING SALES REPRESENTATIVE, GEOFF R 787.02 NAUSEA ALONE 04/06/2014 REED MARKETING SALES REPRESENTATIVE, GEOFF R 787.03 VOMITING ALONE 04/06/2014 GARCIA MISA MARKETING SALES REPRESENTATIVE, NOEL N 345.80 OTHER FORMS OF EPILEPSY AND RECURRENT SEIZURES WITHOUT MENTION OF INTRACTABLE EPILEPSY 04/06/2014 GARCIA MISA MARKETING SALES REPRESENTATIVE, NOEL N 368.8 OTHER SPECIFIED VISUAL DISTURBANCES 04/06/2014 GARCIA CASHERO MARKETING SALES REPRESENTATIVE, NOEL N 784.0 HEADACHE 04/06/2014 GARCIA CASHERO MARKETING SALES REPRESENTATIVE, NOEL N 787.02 NAUSEA ALONE 04/06/2014 GARCIA CASHERO MARKETING SALES REPRESENTATIVE, NOEL N 787.03 VOMITING ALONE 04/06/2014 345.80 [...] INFECTION, SITE NOT SPECIF 12/04/2015 CELIA HUGHES MARKETING SALES REPRESENTATIVE Ot N61 INFLAMMATORY DISORDERS OF BREAST 12/16/2015 [...] LUIS HOLLINS, STEF Ortega Ot Z79.899 OTHER INTERMEDIATE (CURRENT) DRUG THERAPY 02/16/2016 CELIA HUGHES MARKETING SALES REPRESENTATIVE Ot N39.0 URINARY TRACT INFECTION, SITE NOT SPECIF 02/16/2016 CELIA HUGHES MARKETING SALES REPRESENTATIVE Ot R51 HEADACHE 02/19/2016 CELIA HUGHES MARKETING SALES REPRESENTATIVE Ot N39.0 URINARY TRACT INFECTION, SITE NOT SPECIF 02/19/2016 CELIA HUGHES MARKETING SALES REPRESENTATIVE Ot R51 HEADACHE 04/30/2016 CELIA HUGHES MARKETING SALES REPRESENTATIVE Ot R51 HEADACHE 05/01/2016 CELIA HUGHES MARKETING SALES REPRESENTATIVE Ot R51 HEADACHE 05/10/2016 CELIA HUGHES MARKETING SALES REPRESENTATIVE Ot H66.91 OTITIS MEDIA, UNSPECIFIED, RIGHT EAR 05/10/2016 CELIA HUGHES MARKETING SALES REPRESENTATIVE Ot H92.01 OTALGIA, RIGHT EAR 05/13/2016 CELIA HUGHES MARKETING SALES REPRESENTATIVE Ot H66.91 OTITIS MEDIA, UNSPECIFIED, RIGHT EAR 05/13/2016 CELIA HUGHES MARKETING SALES REPRESENTATIVE Ot H92.01 OTALGIA, RIGHT EAR 07/04/2016 JUNO [...] O 12/21/2016 BASILIO CANALES Ot Z79.899 OTHER MUSICAL THERAPIST (CURRENT) DRUG THERAPY 12/21/2016 BASILIO CANALES Ot Z90.5 ACQUIRED ABSENCE OF KIDNEY 12/23/2016 BASILIO CANALES Ot I10 ESSENTIAL (PRIMARY) HYPERTENSION 12/23/2016 BASILIO CANALES Ot J02.9 ACUTE PHARYNGITIS, UNSPECIFIED 12/23/2016 BASILIO CANALES Ot J10.1 FLU DUE TO OTH IDENT INFLUENZA VIRUS W O 12/23/2016 BASILIO CANALES Ot Z79.899 OTHER INTERMEDIATE (CURRENT) DRUG THERAPY 12/23/2016 BASILIO CANALES Ot Z90.5 ACQUIRED ABSENCE OF KIDNEY 12/27/2016 BASILIO CANALES Ot I10 ESSENTIAL (PRIMARY) HYPERTENSION 12/27/2016 BASILIO CANALES Ot J02.9 ACUTE PHARYNGITIS, UNSPECIFIED 12/27/2016 BASILIO CANALES Ot J10.1 FLU DUE TO OTH IDENT INFLUENZA VIRUS W O 12/27/2016 BASILIO CANLAES Ot Z79.899 OTHER INTERMEDIATE (CURRENT) DRUG THERAPY 12/27/2016 BASILIO CANALES Ot [...] K Ot I10 ESSENTIAL (PRIMARY) HYPERTENSION 2017 RAÚL SHAQ PRICE Ot N39.0 URINARY TRACT INFECTION, SITE NOT SPECIF 2017 RAÚL , SHAQ Guardado Ot R10.84 GENERALIZED ABDOMINAL PAIN 2017 RAÚL SHAQ PRICE Ot Z90.5 ACQUIRED ABSENCE OF KIDNEY 2017 RAÚL PADMINI PRICEA K Ot Z90.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 10/18/2017 HAMMAD ROACH MD J Ot E78.00 PURE HYPERCHOLESTEROLEMIA, UNSPECIFIED 10/18/2017 HAMMAD ROACH MD J Ot F32.9 MAJOR DEPRESSIVE DISORDER, SINGLE EPISOD 10/18/2017 MAY ROACH MDUS J Ot F41.9 ANXIETY DISORDER, UNSPECIFIED 10/18/2017 HAMMAD ROACH MD J Ot I10 ESSENTIAL (PRIMARY) HYPERTENSION 10/18/2017 MAY ROACH MDUS J Ot J02.9 ACUTE PHARYNGITIS, UNSPECIFIED 10/18/2017 HAMMAD ROACH MD J Ot Z90.49 ACQUIRED ABSENCE OF OTHER SPECIFIED PART 10/18/2017 HAMMAD ROACH MD J Ot Z90.5 ACQUIRED ABSENCE OF KIDNEY 11/14/2017 HAMMAD ROACH MD J Ot E78.00 PURE HYPERCHOLESTEROLEMIA, UNSPECIFIED 11/14/2017 HAMMAD ROACH MD J Ot F32.9 MAJOR DEPRESSIVE DISORDER, SINGLE EPISOD 11/14/2017 MAY ROACH MDUS J Ot F41.9 ANXIETY DISORDER, UNSPECIFIED 11/14/2017 MAY ROACH MDUS J Ot G40.909 EPILEPSY, UNSP, NOT INTRACTABLE, WITHOUT 11/14/2017 DOC HOLLINS HAMMAD J Ot G43.909 MIGRAINE, UNSP, NOT INTRACTABLE, WITHOUT 11/14/2017 HAMMAD ROACH MD J Ot I10 ESSENTIAL (PRIMARY) HYPERTENSION 11/14/2017 HAMMAD ROACH MD J Ot N39.0 URINARY TRACT INFECTION, SITE NOT SPECIF 11/14/2017 MAY ROACH MDUS J Ot Z90.5 ACQUIRED ABSENCE OF KIDNEY 11/14/2017 MAY ROACH MDUS J Ot Z90.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 11/17/2017 HAMMAD ROACH MD J Ot E78.00 PURE HYPERCHOLESTEROLEMIA, UNSPECIFIED 11/17/2017 MAY ROACH MDUS J Ot F32.9 MAJOR DEPRESSIVE DISORDER, SINGLE EPISOD 11/17/2017 DOC HOLLINS, HAMMAD Mijares Ot F41.9 ANXIETY DISORDER, UNSPECIFIED 11/17/2017 DOC HOLLINS, HAMMAD Mijares Ot G40.909 EPILEPSY, UNSP, NOT INTRACTABLE, WITHOUT 11/17/2017 DOC HOLLINS, HAMMAD J Ot G43.909 MIGRAINE, UNSP, NOT INTRACTABLE, WITHOUT 11/17/2017 DOC HOLLINS, HAMMAD J Ot I10 ESSENTIAL (PRIMARY) HYPERTENSION 11/17/2017 DOC HOLLINS, HAMMAD J Ot N39.0 URINARY TRACT INFECTION, SITE NOT SPECIF 11/17/2017 DOC HOLLINS, HAMMAD Mijares Ot Z90.5 ACQUIRED ABSENCE OF KIDNEY 11/17/2017 HAMMAD ROACH MD Ot Z90.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 03/29/2018 RAÚL DO, SHAQ K Ot E78.00 PURE HYPERCHOLESTEROLEMIA, UNSPECIFIED 03/29/2018 RAÚL DO, SHAQ K Ot F32.9 MAJOR DEPRESSIVE DISORDER, SINGLE EPISOD 03/29/2018 RAÚL DO SHAQ K Ot F41.9 ANXIETY DISORDER, UNSPECIFIED 03/29/2018 RAÚL DO, SHAQ K Ot G40.909 EPILEPSY, UNSP, NOT INTRACTABLE, WITHOUT 03/29/2018 RAÚL DO, SHAQ K Ot I10 ESSENTIAL (PRIMARY) HYPERTENSION 03/29/2018 RAÚL DO SHAQ K Ot R51 HEADACHE 03/29/2018 RAÚL DO SHAQ K Ot Z87.891 PERSONAL HISTORY OF NICOTINE DEPENDENCE 03/29/2018 RAÚL DO SHAQ K Ot Z88.0 ALLERGY STATUS TO PENICILLIN 03/29/2018 RAÚL DO SHAQ K Ot Z88.1 ALLERGY STATUS TO OTHER ANTIBIOTIC AGENT 03/29/2018 RAÚL DO SHAQ K Ot Z88.2 ALLERGY STATUS TO SULFONAMIDES STATUS 03/29/2018 RAÚL DO SHAQ K Ot Z88.8 ALLERGY STATUS TO OTH DRUG/MEDS/BIOL SUB 03/29/2018 RAÚL DO SHAQ K Ot Z90.5 ACQUIRED ABSENCE OF KIDNEY 03/29/2018 RAÚL DO SHAQ K Ot Z90.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 03/31/2018 RAÚL DO SHAQ K Ot E78.00 PURE HYPERCHOLESTEROLEMIA, UNSPECIFIED 03/31/2018 RAÚL DO SHAQ K Ot F32.9 MAJOR DEPRESSIVE DISORDER, SINGLE EPISOD 03/31/2018 RAÚL DO, SHAQ K Ot F41.9 ANXIETY DISORDER, UNSPECIFIED 03/31/2018 RAÚL DO, SHAQ K Ot G40.909 EPILEPSY, UNSP, NOT INTRACTABLE, WITHOUT 03/31/2018 RAÚL DO, SHAQ K Ot I10 ESSENTIAL (PRIMARY) HYPERTENSION 03/31/2018 RAÚL DO, SHAQ K Ot R51 HEADACHE 03/31/2018 RAÚL DO, SHAQ K Ot Z87.891 PERSONAL HISTORY OF NICOTINE DEPENDENCE 03/31/2018 RAÚL DO, SHAQ K Ot Z88.0 ALLERGY STATUS TO PENICILLIN 03/31/2018 RAÚL DO, SHAQ K Ot Z88.1 ALLERGY STATUS TO OTHER ANTIBIOTIC AGENT 03/31/2018 RAÚL DO, SHAQ K Ot Z88.2 ALLERGY STATUS TO SULFONAMIDES STATUS 03/31/2018 RAÚL DO, SHAQ K Ot Z88.8 ALLERGY STATUS TO OTH DRUG/MEDS/BIOL SUB 03/31/2018 RAÚL DO, SHAQ K Ot Z90.5 ACQUIRED ABSENCE OF KIDNEY 03/31/2018 RALÚ DO, SHAQ K Ot Z90.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 04/04/2018 RAÚL DO, SHAQ K Ot E78.00 PURE HYPERCHOLESTEROLEMIA, UNSPECIFIED 04/04/2018 RAÚL DO, SHAQ K Ot F32.9 MAJOR DEPRESSIVE DISORDER, SINGLE EPISOD 04/04/2018 RAÚL DO, SHAQ K Ot F41.9 ANXIETY DISORDER, UNSPECIFIED 04/04/2018 RAÚL DO, SHAQ K Ot G40.909 EPILEPSY, UNSP, NOT INTRACTABLE, WITHOUT 04/04/2018 RAÚL DO, SHAQ K Ot I10 ESSENTIAL (PRIMARY) HYPERTENSION 04/04/2018 RAÚL DO, SHAQ K Ot R51 HEADACHE 04/04/2018 RAÚL DO, SHAQ K Ot Z87.891 PERSONAL HISTORY OF NICOTINE DEPENDENCE 04/04/2018 RAÚL DO, SHAQ K Ot Z88.0 ALLERGY STATUS TO PENICILLIN 04/04/2018 RAÚL DO, SHAQ K Ot Z88.1 ALLERGY STATUS TO OTHER ANTIBIOTIC AGENT 04/04/2018 RAÚL DO, SHAQ K Ot Z88.2 ALLERGY STATUS TO SULFONAMIDES STATUS 04/04/2018 RAÚL DO, SHAQ K Ot Z88.8 ALLERGY STATUS TO OTH DRUG/MEDS/BIOL SUB 04/04/2018 SHAQ OLSEN DO Ot Z90.5 ACQUIRED ABSENCE OF KIDNEY 04/04/2018 RAÚLSHAQ Starks DO Ot Z90.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 07/28/2018 Ot G43.909 MIGRAINE, UNSP, NOT INTRACTABLE, WITHOUT 07/28/2018 Ot G93.89 OTHER SPECIFIED DISORDERS OF BRAIN 07/28/2018 Ot Z86.69 PERSONAL HISTORY OF DIS OF THE NERVOUS S 07/28/2018 Ot Z87.898 PERSONAL HISTORY OF OTHER SPECIFIED COND 07/31/2018 Ot G43.909 MIGRAINE, UNSP, NOT INTRACTABLE, WITHOUT 07/31/2018 Ot G93.89 OTHER SPECIFIED DISORDERS OF BRAIN 07/31/2018 Ot Z86.69 PERSONAL HISTORY OF DIS OF THE NERVOUS S 07/31/2018 Ot Z87.898 PERSONAL HISTORY OF OTHER SPECIFIED COND 10/09/2018 NELIDA, ERIKA MORTGAGE LOAN REVIEWER Ot E78.00 PURE HYPERCHOLESTEROLEMIA, UNSPECIFIED 10/09/2018 NELIDA, ERIKA MORTGAGE LOAN REVIEWER Ot F32.9 MAJOR DEPRESSIVE DISORDER, SINGLE EPISOD 10/09/2018 NELIDA, ERIKA MORTGAGE LOAN REVIEWER Ot F41.9 ANXIETY DISORDER, UNSPECIFIED 10/09/2018 NELIDA, ERIKA MORTGAGE LOAN REVIEWER Ot G40.909 EPILEPSY, UNSP, NOT INTRACTABLE, WITHOUT 10/09/2018 NELIDA, ERIKA MORTGAGE LOAN REVIEWER Ot G43.909 MIGRAINE, UNSP, NOT INTRACTABLE, WITHOUT 10/09/2018 NELIDA, ERIKA MORTGAGE LOAN REVIEWER Ot I10 ESSENTIAL (PRIMARY) HYPERTENSION 10/09/2018 NELIDA, ERIKA MORTGAGE LOAN REVIEWER Ot N39.0 URINARY TRACT INFECTION, SITE NOT SPECIF 10/09/2018 NELIDA, ERIKA MORTGAGE LOAN REVIEWER Ot R56.9 UNSPECIFIED CONVULSIONS 10/09/2018 NELIDA, ERIKA MORTGAGE LOAN REVIEWER Ot Z88.0 ALLERGY STATUS TO PENICILLIN 10/09/2018 NELIDA, ERIKA MORTGAGE LOAN REVIEWER Ot Z88.1 ALLERGY STATUS TO OTHER ANTIBIOTIC AGENT 10/09/2018 NELIDA, ERIKA MORTGAGE LOAN REVIEWER Ot Z88.2 ALLERGY STATUS TO SULFONAMIDES STATUS 10/09/2018 NELIDA, ERIKA MORTGAGE LOAN REVIEWER Ot Z88.8 ALLERGY STATUS TO OTH DRUG/MEDS/BIOL SUB 10/09/2018 NELIDA, ERIKA MORTGAGE LOAN REVIEWER Ot Z90.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 10/14/2018 NELIDA, ERIKA MORTGAGE LOAN REVIEWER Ot E78.00 PURE HYPERCHOLESTEROLEMIA, UNSPECIFIED 10/14/2018 NELIDA, ERIKA MORTGAGE LOAN REVIEWER Ot F32.9 MAJOR DEPRESSIVE DISORDER, SINGLE EPISOD 10/14/2018 NELIDA, ERIKA MORTGAGE LOAN REVIEWER Ot F41.9 ANXIETY DISORDER, UNSPECIFIED 10/14/2018 NELIDA, ERIKA MORTGAGE LOAN REVIEWER Ot G40.909 EPILEPSY, UNSP, NOT INTRACTABLE, WITHOUT 10/14/2018 NELIDA, ERIKA MORTGAGE LOAN REVIEWER Ot G43.909 MIGRAINE, UNSP, NOT INTRACTABLE, WITHOUT 10/14/2018 NELIDA, ERIKA MORTGAGE LOAN REVIEWER Ot I10 ESSENTIAL (PRIMARY) HYPERTENSION 10/14/2018 NELIDA, ERIKA MORTGAGE LOAN REVIEWER Ot N39.0 URINARY TRACT INFECTION, SITE NOT SPECIF 10/14/2018 NELIDA, ERIKA MORTGAGE LOAN REVIEWER Ot R56.9 UNSPECIFIED CONVULSIONS 10/14/2018 NELIDA, ERIKA MORTGAGE LOAN REVIEWER Ot Z88.0 ALLERGY STATUS TO PENICILLIN 10/14/2018 NELIDA, ERIKA MORTGAGE LOAN REVIEWER Ot Z88.1 ALLERGY STATUS TO OTHER ANTIBIOTIC AGENT 10/14/2018 NELIDA, ERIKA MORTGAGE LOAN REVIEWER Ot Z88.2 ALLERGY STATUS TO SULFONAMIDES STATUS 10/14/2018 NELIDA, ERIKA MORTGAGE LOAN REVIEWER Ot Z88.8 ALLERGY STATUS TO OTH DRUG/MEDS/BIOL SUB 10/14/2018 NELIDA, ERIKA MORTGAGE LOAN REVIEWER Ot Z90.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 10/16/2018 NELIDA, ERIKA MORTGAGE LOAN REVIEWER Ot E78.00 PURE HYPERCHOLESTEROLEMIA, UNSPECIFIED 10/16/2018 NELIDA, ERIKA MORTGAGE LOAN REVIEWER Ot F32.9 MAJOR DEPRESSIVE DISORDER, SINGLE EPISOD 10/16/2018 NELIDA, ERIKA MORTGAGE LOAN REVIEWER Ot F41.9 ANXIETY DISORDER, UNSPECIFIED 10/16/2018 NELIDA, ERIKA MORTGAGE LOAN REVIEWER Ot G40.909 EPILEPSY, UNSP, NOT INTRACTABLE, WITHOUT 10/16/2018 NELIDA, ERIKA MORTGAGE LOAN REVIEWER Ot G43.909 MIGRAINE, UNSP, NOT INTRACTABLE, WITHOUT 10/16/2018 NELIDA, ERIKA MORTGAGE LOAN REVIEWER Ot I10 ESSENTIAL (PRIMARY) HYPERTENSION 10/16/2018 NELIDA, ERIKA MORTGAGE LOAN REVIEWER Ot N39.0 URINARY TRACT INFECTION, SITE NOT SPECIF 10/16/2018 NELIDA, ERIKA MORTGAGE LOAN REVIEWER Ot R56.9 UNSPECIFIED CONVULSIONS 10/16/2018 NELIDA, ERIKA MORTGAGE LOAN REVIEWER Ot Z88.0 ALLERGY STATUS TO PENICILLIN 10/16/2018 NELIDA, ERIKA MORTGAGE LOAN REVIEWER Ot Z88.1 ALLERGY STATUS TO OTHER ANTIBIOTIC AGENT 10/16/2018 NELIDA, ERIKA MORTGAGE LOAN REVIEWER Ot Z88.2 ALLERGY STATUS TO SULFONAMIDES STATUS 10/16/2018 ERIKA KRAUSE Ot Z88.8 ALLERGY STATUS TO OTH DRUG/MEDS/BIOL SUB 10/16/2018 ERIKA KRAUSE Ot Z90.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 12/23/2018 Ot G43.909 MIGRAINE, UNSP, NOT INTRACTABLE, WITHOUT 12/23/2018 Ot G93.89 OTHER SPECIFIED DISORDERS OF BRAIN 12/23/2018 Ot Z86.69 PERSONAL HISTORY OF DIS OF THE NERVOUS S 12/23/2018 Ot Z87.898 PERSONAL HISTORY OF OTHER SPECIFIED COND Procedures Code Description [place] [address] ROUTINE VENIPUNCTURE 09/30/2013 16443 CMP 09/30/2013 28575 CREATININE 09/30/2013 54795 BUN 09/30/2013 [id number] GFR CALC (RESULT ONLY) 09/30/2013 78301 CBC 10/01/2013 01731 EAR LAVAGE 10/26/2013 13988 ROUTINE VENIPUNCTURE 11/01/2013 16715 TEST, URINE (IN- HOUSE) 11/01/2013 48034 A1C (RML) 11/01/2013 39155 PROLACTIN 11/01/2013 67426 TSH 11/01/2013 17209 TESTOSTERONE TOTAL-WOMEN & CHILDREN 11/02/2013 Goyo Cote 04/12/2014 Results Test Result Range Streptococcus pyogenes antigen detection - 12/21/16 12:30 Streptococcus pyogenes antigen detection NEGATIVE NEGATIVE Bacterial throat culture - 12/21/16 12:30 Bacterial throat culture BANNER Streptococcus pyogenes antigen detection - 08/08/17 20:55 Streptococcus pyogenes antigen detection NEGATIVE NEGATIVE Bacterial throat culture - 08/08/17 20:55 Bacterial throat culture BANNER Complete urinalysis with reflex to culture - [...] culture - 09/18/17 00:45 Bacterial urine culture [id number] NRG COLONY COUNT 10,000/ML - 100,000/ML NRG [...] Bacterial throat culture - 11/14/17 18:51 Bacterial throat culture NBS NRG Bacterial urine culture - 11/14/17 18:51 URINE CULTURE RESULTS MORE THAN 3 ISOLATES NRG A1C - 11/20/17 08:45 HEMOGLOBIN A1c 5.4 % of total Hgb <5.7 INSULIN LEVEL - 11/20/17 08:45 INSULIN 30.4 uIU/mL 2.0-19.6 Complete urinalysis with reflex to culture - 03/29/18 03:55 Urine color determination YELLOW NRG Urine clarity determination CLEAR NRG Urine pH measurement by test strip 6 5-9 Specific gravity of urine by test strip 1.020 1.016- 1.022 Urine protein assay by test [...] NORMAL Urine leukocyte esterase detection by dipstick NEGATIVE NEGATIVE Automated urine sediment erythrocyte count by microscopy (number/high power field) NONE NRG Automated urine sediment leukocyte count by microscopy (number/high power field ) NONE NRG Bacteria detection in urine sediment by light microscopy TRACE NRG Squamous epithelial cells detection in urine sediment by light microscopy 2-5 NRG Crystals detection in urine sediment by light microscopy NONE NRG Casts detection in urine sediment by light microscopy NONE NRG Mucus detection in urine sediment by light microscopy NEGATIVE NRG Complete urinalysis with reflex to culture NO NRG Urine drug screening test - 03/29/18 03:55 Urine phencyclidine detection by screening method NEGATIVE NEGATIVE Urine benzodiazepines detection by screening method NEGATIVE NEGATIVE Urine cocaine detection NEGATIVE NEGATIVE Urine amphetamines detection by screening method NEGATIVE NEGATIVE Urine methamphetamine detection by screening method NEGATIVE NEGATIVE Urine cannabinoids detection by screening method NEGATIVE NEGATIVE Urine opiates detection by screening method NEGATIVE NEGATIVE Urine barbiturates detection NEGATIVE NEGATIVE Screening urine tricyclic antidepressants detection NEGATIVE NEGATIVE Urine methadone detection by screening method NEGATIVE NEGATIVE Urine oxycodone detection NEGATIVE NEGATIVE Urine propoxyphene detection NEGATIVE NEGATIVE Complete blood count (CBC) with automated white blood cell (WBC) differential - 03/29/18 04:00 Blood leukocytes automated count (number/volume) 6.8 10*3/uL 4.3-11.0 Blood erythrocytes automated count (number/volume) 4.60 10*6/uL 4.35-5.85 Venous blood hemoglobin measurement (mass/volume) 13.1 g/dL 11.5-16.0 Blood hematocrit (volume fraction) 39 % 35-52 Automated erythrocyte mean corpuscular volume 85 [foz_us] 80-99 Automated erythrocyte mean corpuscular hemoglobin (mass per erythrocyte) 29 pg 25-34 Automated erythrocyte mean corpuscular hemoglobin concentration measurement ( mass/volume) 34 g/dL 32-36 Automated erythrocyte distribution width ratio 13.4 % 10.0-14.5 Automated blood platelet count (count/volume) 275 10*3/uL 130-400 Automated blood platelet mean volume measurement 10.7 [foz_us] 7.4-10.4 Automated blood neutrophils/100 leukocytes 56 % 42-75 Automated blood lymphocytes/100 leukocytes 35 % 12-44 Blood monocytes/100 leukocytes 8 % 0-12 Automated blood eosinophils/100 leukocytes 0 % 0-10 Automated blood basophils/100 leukocytes 1 % 0-10 Blood neutrophils automated count (number/volume) 3.8 10*3 1.8-7.8 Blood lymphocytes automated count (number/volume) 2.4 10*3 1.0-4.0 Blood monocytes automated count (number/volume) 0.6 10*3 0.0-1.0 Automated eosinophil count 0.0 10*3/uL 0.0-0.3 Automated blood basophil count (count/volume) 0.1 10*3/uL 0.0-0.1 Comprehensive metabolic panel - 03/29/18 04:00 Serum or plasma sodium measurement (moles/volume) 143 mmol/L 135-145 Serum or plasma potassium measurement (moles/volume) 3.8 mmol/L 3.6-5.0 Serum or plasma chloride measurement (moles/volume) 109 mmol/L 98-107 Carbon dioxide 22 mmol/L 21-32 Serum or plasma anion gap determination (moles/volume) 12 mmol/L 5-14 Serum or plasma urea nitrogen measurement (mass/volume) 15 mg/dL 7-18 Serum or plasma creatinine measurement (mass/volume) 0.73 mg/dL 0.60-1.30 Serum or plasma urea nitrogen/creatinine mass ratio 21 NRG Serum or plasma creatinine measurement with calculation of estimated glomerular filtration rate > NRG Serum or plasma glucose measurement (mass/volume) 105 mg/dL 70-105 Serum or plasma calcium measurement (mass/volume) 9.2 mg/dL 8.5-10.1 Serum or plasma total bilirubin measurement (mass/volume) 0.2 mg/dL 0.1-1.0 Serum or plasma alkaline phosphatase measurement (enzymatic activity/volume) 61 U/L 40-136 Serum or plasma aspartate aminotransferase measurement (enzymatic activity/ volume) 14 U/L 5-34 Serum or plasma alanine aminotransferase measurement (enzymatic activity/volume ) 23 U/L 0-55 Serum or plasma protein measurement (mass/volume) 7.1 g/dL 6.4-8.2 Serum or plasma albumin measurement (mass/volume) 4.2 g/dL 3.2-4.5 Magnesium - 03/29/18 04:00 Magnesium 2.0 mg/dL 1.8-2.4 Serum or plasma creatine kinase measurement (enzymatic activity/volume) - 03/29 04:00 Serum or plasma creatine kinase measurement (enzymatic activity/volume) 28 U/L 29-168 Serum or plasma thyrotropin measurement by detection limit <=0.05 miu/l (units/ volume) - 03/29/18 04:00 Serum or plasma thyrotropin measurement by detection limit <=0.05 miu/l (units/ volume) 2.37 u[iU]/mL 0.35-4.94 Serum or plasma ethanol measurement (mass/volume) - 03/29/18 04:00 Serum or plasma ethanol measurement (mass/volume) < mg/dL <10 Comprehensive metabolic panel - 05/26/18 11:25 Serum or plasma sodium measurement (moles/volume) 140 mmol/L 135-145 Serum or plasma potassium measurement (moles/volume) 4.0 mmol/L 3.6-5.0 Serum or plasma chloride measurement (moles/volume) 107 mmol/L 98-107 Carbon dioxide 25 mmol/L 21-32 Serum or plasma anion gap determination (moles/volume) 8 mmol/L 5-14 Serum or plasma urea nitrogen measurement (mass/volume) 11 mg/dL 7-18 Serum or plasma creatinine measurement (mass/volume) 0.74 mg/dL 0.60-1.30 Serum or plasma urea nitrogen/creatinine mass ratio 15 NRG Serum or plasma creatinine measurement with calculation of estimated glomerular filtration rate > NRG Serum or plasma glucose measurement (mass/volume) 93 mg/dL 70-105 Serum or plasma calcium measurement (mass/volume) 9.4 mg/dL 8.5-10.1 Serum or plasma total bilirubin measurement (mass/volume) 0.6 mg/dL 0.1-1.0 Serum or plasma alkaline phosphatase measurement (enzymatic activity/volume) 67 U/L 40-136 Serum or plasma aspartate aminotransferase measurement (enzymatic activity/ volume) 16 U/L 5-34 Serum or plasma alanine aminotransferase measurement (enzymatic activity/volume ) 21 U/L 0-55 Serum or plasma protein measurement (mass/volume) 7.3 g/dL 6.4-8.2 Serum or plasma albumin measurement (mass/volume) 4.5 g/dL 3.2-4.5 Complete urinalysis with reflex to culture - 10/09/18 17:49 Urine color determination YELLOW NRG Urine clarity determination SLIGHTLY CLOUDY NRG Urine pH measurement by test strip 7 5-9 Specific gravity of urine by test strip 1.010 1.016- 1.022 Urine protein assay by test strip, semi-quantitative 1+ NEGATIVE Urine glucose detection by automated test strip NEGATIVE NEGATIVE Erythrocytes detection in urine sediment by light microscopy 2+ NEGATIVE Urine ketones detection by automated test strip NEGATIVE NEGATIVE Urine nitrite detection by test strip NEGATIVE NEGATIVE Urine total bilirubin detection by test strip NEGATIVE NEGATIVE Urine urobilinogen measurement by automated test strip (mass/volume) NORMAL NORMAL Urine leukocyte esterase detection by dipstick 3+ NEGATIVE Automated urine sediment erythrocyte count by microscopy (number/high power field) [HPF] NRG Automated urine sediment leukocyte count by microscopy (number/high power field ) [HPF] NRG Bacteria detection in urine sediment by light microscopy FEW NRG Squamous epithelial cells detection in urine sediment by light microscopy 10-25 NRG Crystals detection in urine sediment by light microscopy NONE NRG Casts detection in urine sediment by light microscopy NONE NRG Mucus detection in urine sediment by light microscopy NEGATIVE NRG Complete urinalysis with reflex to culture YES NRG Bacterial urine culture - 10/09/18 17:49 Bacterial urine culture SEE REPORT NRG COLONY COUNT . NRG Urine drug screening test - 10/09/18 17:50 Urine phencyclidine detection by screening method NEGATIVE NEGATIVE Urine benzodiazepines detection by screening method NEGATIVE NEGATIVE Urine cocaine detection NEGATIVE NEGATIVE Urine amphetamines detection by screening method NEGATIVE NEGATIVE Urine methamphetamine detection by screening method NEGATIVE NEGATIVE Urine cannabinoids detection by screening method NEGATIVE NEGATIVE Urine opiates detection by screening method NEGATIVE NEGATIVE Urine barbiturates detection NEGATIVE NEGATIVE Screening urine tricyclic antidepressants detection NEGATIVE NEGATIVE Urine methadone detection by screening method NEGATIVE NEGATIVE Urine oxycodone detection NEGATIVE NEGATIVE Urine propoxyphene detection NEGATIVE NEGATIVE Encounters ACCT No. Visit Date/Time Discharge Status Pt. Type Provider Facility Loc./Unit Complaint [id number] 06/14/2014 00:00:00 06/14/2014 23:59:59 CLS Outpatient [id number] 04/12/2014 08:48:00 04/12/2014 23:59:59 CLS Outpatient NOEL MEYERS APRN [id number] 04/06/2014 12:40:00 04/06/2014 23:59:59 CLS Outpatient GEOFF REED APRN [id number] 11/02/2013 10:05:00 11/02/2013 23:59:59 CLS Outpatient NOEL MEYERS APRN N [id number] 10/26/2013 10:11:00 10/26/2013 23:59:59 CLS Outpatient SILVER SAVAGE MD [id number] 09/30/2013 10:01:00 09/30/2013 23:59:59 CLS Outpatient NOEL MEYERS APRN Greta [id number] 09/20/2013 13:46:00 09/20/2013 23:59:59 CLS Outpatient GEOFF REED APRN [id number] 01/08/2019 09:30:00 ACT Outpatient DAVID CHOI [facility] [id number] 11/20/2017 08:20:00 Document Registration [id number] 10/09/2018 16:31:00 10/09/2018 18:16:00 DIS Emergency ERIKA KRAUSEP [facility] ER SEIZURE [id number] 04/03/2018 09:45:00 04/03/2018 23:59:59 CLS Preadmit DAVID CHOI APRN [facility] RAD HX OF SEIZURES [id number] 03/29/2018 03:45:00 03/29/2018 04:53:00 DIS Emergency SHAQ OLSEN DO [facility] ER POSS SEIZURE [id number] 11/14/2017 18:16:00 11/14/2017 20:55:00 DIS Emergency HAMMAD ROACH MD [facility] ER SEIZURE [id number] 10/18/2017 02:11:00 10/18/2017 02:56:00 DIS Emergency HAMMAD ROACH MD [facility] ER SORE THROAT,SWOLLEN THROAT -BLOODY [id number] 2017 00:35:00 2017 01:47:00 DIS Emergency SHAQ OLSEN DO [facility] ER LOWER BACK PAIN,BLOOD IN URINE [id number] 08/08/2017 20:19:00 08/08/2017 22:41:00 DIS Emergency BASILIO CANALES [facility] ER STREP THROAT [id number] 03/12/2017 16:06:00 03/12/2017 17:14:00 DIS Emergency BASILIO CANALES [facility] ER HURTS TO COUGH,THROAT HURTS [id number] 12/21/2016 12:24:00 12/21/2016 13:23:00 DIS Emergency BASILIO CANALES [facility] ER POSS STREP [id number] 10/25/2016 07:21:00 10/25/2016 07:50:00 DIS Emergency NEPTALI HOLLINS, KAMI Milton [facility] ER LEFT EYE REDNESS [id number] 07/04/2016 17:10:00 07/04/2016 17:25:00 DIS Emergency JARAD HOLLINS, JUNO Guardado [facility] ER SORE THROAT [id number] 05/10/2016 20:46:00 05/10/2016 21:11:00 DIS Emergency CELIA HUGHES APRN [facility] ER L EAR PAIN [id number] 04/30/2016 18:19:00 04/30/2016 21:20:00 DIS Emergency CELIA HUGHES APRN [facility] ER MIGRAINE PAIN/VOMITING [id number] 02/16/2016 10:47:00 02/16/2016 13:10:00 DIS Emergency CELIA HUGHES APRN [facility] ER MIGRAINE/NAUSEA [id number] 12/20/2015 20:32:00 12/20/2015 21:31:00 DIS Emergency STEF MCKNIGHT MD [facility] ER CP [id number] 12/16/2015 12:16:00 12/16/2015 14:54:00 DIS Emergency BASILIO CANALES [facility] ER DIFF BREATHING/ CONGESTION [id number] 12/04/2015 10:21:00 12/04/2015 11:02:00 DIS Emergency CELIA HUGHES APRN [facility] ER POSS ABSCESS ON LEFT BREAST [id number] 11/26/2015 15:28:00 11/26/2015 23:59:59 CLS Emergency BASILIO CANALES [facility] ER HEADACHES/DIZZINESS [id number] 10/14/2015 16:39:00 10/14/2015 19:03:00 DIS Emergency SHAQ OLSEN DO [facility] ER L KIDNEY/R SHOULDER PAIN [id number] 09/03/2015 08:41:00 09/03/2015 11:36:00 DIS Emergency RONDA CHASE MD [facility] ER SORE THROAT,SOA,EAR PAIN [id number] 06/24/2015 10:25:00 06/24/2015 11:11:00 DIS Emergency CELIA HUGHES APRN [facility] ER RIGHT EAR PAIN/VOMITING [id number] 06/21/2015 14:16:00 06/21/2015 18:36:00 DIS Emergency ANTONIA BARNES DO [facility] ER LEFT EAR PAIN/BLEEDING [id number] 05/16/2015 19:22:00 05/16/2015 21:53:00 DIS Emergency SHAQ OLSEN DO [facility] ER HEADACHE [id number] 03/24/2015 09:06:00 03/24/2015 11:07:00 DIS Emergency CELIA HUGHES APRN [facility] ER SORE THROAT HEADACHE [id number] 09/29/2014 22:40:00 09/29/2014 23:47:00 DIS Emergency DELISA CARDONA MD [facility] ER VOMITING;HEADACHE [id number] 07/24/2014 11:13:00 07/24/2014 12:34:00 DIS Emergency BASILIO CANALES [facility] ER SORE THROAT [id number] 04/04/2014 10:03:00 04/04/2014 12:06:00 DIS Emergency SHAQ OLSEN DO [facility] ER MIGRAINE/VOMITING [id number] 02/14/2014 10:03:00 02/14/2014 11:47:00 DIS Emergency DELISA CARDONA MD [facility] ER MIGRAINE [id number] 02/12/2014 14:10:00 02/12/2014 15:08:00 DIS Emergency DELISA CARDONA MD [facility] ER MIGRAINE [id number] 02/01/2014 08:50:00 02/01/2014 10:12:00 DIS Emergency JUAN LUIS HOLLINS, STEF Ortega [facility] ER MIGRAINE [id number] 11/04/2013 17:16:00 11/04/2013 21:14:00 DIS Emergency BASILIO CANALES [facility] ER CHEST PAIN,SOA [id number] 05/26/2018 11:50:00 Document Registration [id number] 03/24/2015 09:06:00 Document Registration [id number] 03/24/2015 09:06:00 Document Registration [id number] 07/11/2012 06:31:00 Document Registration
[2019-01-09] MEDS ORDERED: RX-HYDROCODONE/APAP 5/325 MG #4 TAB PK PO PRN (17:00)
[2019-01-09 17:10] VITALS: BP 0/0
--- NOTE | 2019-01-09 17:21 | Diagnostic Imaging Report ---
INDICATION: Seizure. Severe ankle pain on the left. EXAMINATION: Three views of the left ankle were obtained. FINDINGS: There is no fracture or dislocation. Thickening surfaces are smooth. Joint spaces are well preserved. IMPRESSION: Negative left ankle. Dictated by: Dictated on workstation # [id number]
--- NOTE | 2019-01-09 17:21 | Diagnostic Imaging Report ---
INDICATION: Seizure last night. Now has severe left foot and ankle pain. EXAMINATION: Three views of the left foot were obtained. FINDINGS: No fracture or dislocation. Articulating surfaces are smooth. Joint spaces are well preserved. IMPRESSION: Negative left foot. Dictated by: Dictated on workstation # [id number]
== END 2019-01-09 17:10 | disposition home or self-care (01) ==
LOC: EDUNIT# 16:44 → ER 16:45
DX: S90.32XA Contusion of left foot, initial encounter (principal); E78.00 Pure hypercholesterolemia, unspecified; I10 Essential (primary) hypertension; G43.909 Migraine, unspecified, not intractable, without status migrainosus; G40.909 Epilepsy, unspecified, not intractable, without status epilepticus; F41.9 Anxiety disorder, unspecified; F32.9 Major depressive disorder, single episode, unspecified; Z90.5 Acquired absence of kidney; Z88.0 Allergy status to penicillin; Z88.2 Allergy status to sulfonamides; Z88.8 Allergy status to other drugs, medicaments and biological substances; Z90.89 Acquired absence of other organs; W22.03XA Walked into furniture, initial encounter
CPT/HCPCS: 73610; 73630

== ENCOUNTER 2019-03-23 20:37 | Emergency (ER) | payer SELFPAY ==
[~2019-03-23] VITALS: Ht 165.1 cm; Wt 120.2 kg
[2019-03-23] MEDS ORDERED: LACTATED RINGERS 1,000 ML IV ONE (21:15)
[2019-03-23 21:59] LABS: BASOPHILS # (AUTO) 0.1 10^3/uL (0.0-0.1); BASOPHILS % (AUTO) 1 % (0-10); EOSINOPHILS % (AUTO) 0 % (0-10); HEMATOCRIT 41 % (35-52); HEMOGLOBIN 14.1 G/DL (11.5-16.0); LYMPHOCYTES # (AUTO) 2.4 X 10^3 (1.0-4.0); LYMPHOCYTES % (AUTO) 27 % (12-44); MEAN CORPUSCULAR HEMOGLOBIN 29 PG (25-34); MEAN CORPUSCULAR HGB CONC 34 G/DL (32-36); MEAN CORPUSCULAR VOLUME 84 FL (80-99); MEAN PLATELET VOLUME 10.6 FL (7.4-10.4); MONOCYTES # (AUTO) 0.7 X 10^3 (0.0-1.0); MONOCYTES % (AUTO) 8 % (0-12); NEUTROPHILS # (AUTO) 5.5 X 10^3 (1.8-7.8); NEUTROPHILS % (AUTO) 64 % (42-75); PLATELET COUNT 312 10^3/uL (130-400); RED CELL DISTRIBUTION WIDTH 12.8 % (10.0-14.5); WHITE BLOOD COUNT 8.6 10^3/uL (4.3-11.0)
--- NOTE | 2019-03-23 22:15 | ED Neurological Problem ---
General Chief Complaint: Neurological Problems Stated Complaint: SEIZURE Nursing Triage Note: THE PT IS AMBULATORY TO THE ROOM WITHOUT DIFFICULTY. NO DISTRESS IS SEEN ON ARRIVAL. LOC IS NORMAL FOR THE PT. THE PT STATES THAT SHE HAD A SEIZURE TODAY. Nursing Sepsis Screen: No Definite Risk Source: patient, old records History of Present Illness Date Seen by Provider: Mar 23, 2019 Time Seen by Provider: 21:07 Initial Comments PT ARRIVES VIA POV FROM HOME--STATES HER DAD BROUGHT HER TO ER AND DROPPED HER OFF, AND WENT BACK HOME PT STATES SHE HAD A SEIZURE TONIGHT AROUND 1999 STATES SHE WAS CLEANING HER DAD'S BEDROOM, AND SHE HAD A SEIZURE--LANDED IN THE MIDDLE OF THE BED. NO INJURY PT STATES SHE WOKE UP WITH HER DAD YELLING HER NAME AND HER DOG BARKING AT HER PT STATES SHE WAS INCONTINENT OF URINE DETAILS OF SEIZURE OTHERWISE UNKNOWN. WAS NOT WITNESSED BY ANYONE PT HAS HISTORY OF SEIZURES, AND TAKES KEPPRA 500 MG BID. DENIES ANY MISSED DOSES AND STATES SHE TOOK HER EVENING DOSE BEFORE SHE HAD THE SEIZURE. 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 HAD NOT HAD ANY SEIZURES FOR YEARS, AND THEN STARTED HAVING THEM AGAIN --FIRST ONE IN YEARS WAS ON 11/14/17. HISTORICALLY, THESES HAVE BEEN ASSOCIATED WITH MIGRAINES. PT DOES NOT C/O ANY HEADACHE TODAY PT HAS NO COMPLAINTS OF ANY KIND . THIS SEIZURE WAS NO DIFFERENT TODAY IN ANY WAY, FROM SEIZURES SHE HAS HAD TIN THE PAST. DENIES ANY RECENT ILLNESS, NO FEVER, NO STRESSORS, ETC. LMP --BEGAN LAST FRIDAY. NORMAL. NO CONTROL PCP: [facility]. RAIL [employer] [facility]IMBO Allergies and Home Medications Allergies Coded Allergies: amoxicillin (Verified Allergy, Unknown, 12/20/15) carbamazepine (Verified Allergy, Unknown, 12/20/15) Penicillins (Unverified Adverse Reaction, Intermediate, 12/20/15) Sulfa (Sulfonamide Antibiotics) (Unverified Adverse Reaction, Intermedi ate, 12/20/15) Home Medications Ciprofloxacin HCl 500 Mg Tablet, 500 MG PO BID Prescribed by: ERIKA KRAUSE on 10/09/181810 Levetiracetam 500 Mg Tablet, 500 MG PO BID Prescribed by: ERIKA KRAUSE on 10/09/181810 Nitrofurantoin Macrocrystal 100 Mg Capsule, 100 MG PO BID Prescribed by: HAMMAD ROACH on 11/14/172034 Review of Systems Review of Systems Constitutional: no symptoms reported Eyes: No Symptoms Reported Ears, Nose, Mouth, Throat: no symptoms reported Respiratory: no symptoms reported Cardiovascular: no symptoms reported Gastrointestinal: no symptoms reported Genitourinary: no symptoms reported : No LMP: March 17, 2019 Musculoskeletal: no symptoms reported Skin: no symptoms reported Psychiatric/Neurological: See HPI; Denies Cognitive Dysfunction, Denies Headache, Denies Numbness, Denies Tingling Endocrine: No Symptoms Reported Hematologic/Lymphatic: No Symptoms Reported Past Iykpatp-Vfanbt-Fcsykg Hx Patient Social History Alcohol Use: Denies Use Recreational Drug Use: No Smoking Status: Former Smoker (QUIT 2010) Type Used: Cigarettes 2nd Hand Smoke Exposure: No Recent Foreign Travel: No Contact w/Someone Who Travel: No Recent Infectious Disease Expo: No Recent Hopitalizations: No Immunizations Up To Date Tetanus Booster (TDap): Unknown PED Vaccines UTD: Yes Date of Pneumonia Vaccine: Apr 19, 2012 Date of Influenza Vaccine: Apr 19, 2012 Seasonal Allergies Seasonal Allergies: Yes Past Medical History Surgeries: Yes (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. BMT'S; BENIGN TUMOR FROM ROOM OF MOUTH REMOVED. 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 ) Bladder Infection Gastrointestinal: No Musculoskeletal: No Endocrine: No HEENT: Yes (S/P BMT'S; 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 ) Chronic Ear Infection Hearing Impairment: Hard of Hearing Cancer: No Psychosocial: Yes Anxiety, Depression Integumentary: No Blood Disorders: No Family Medical History No Pertinent Family Hx Physical Exam Vital Signs Vital Signs - First Documented 03/23/19 20:41 Temp 98.4 Pulse 109 Resp 16 B/P (MAP) 133/73 (93) Capillary Refill : Less Than 3 Seconds Height, Weight, BMI Height: 5'5.00" Weight: 265lbs. oz. 120.214223ix; 41.43 BMI Method:Estimated General Appearance: WD/WN, no apparent distress, other (SMILING, DOES NOT APPEAR ILL OR POST ICTAL, OR TO BE IN ANY DISCOMFORT OR DISTRESS) HEENT: PERRL/EOMI, normal ENT inspection Neck: normal inspection Respiratory: normal breath sounds, no respiratory distress, no accessory muscle use Cardiovascular: regular rate, rhythm, no murmur Gastrointestinal: non tender, soft Back: normal inspection Extremities: normal inspection Neurologic/Psychiatric: fluorescent lamp replacer II-XII nml as tested, no motor/sensory deficits, alert, normal mood/affect, oriented x 3; No abnormal cerebellar tests Coordination/Gait: normal gait Motor/Sensory: no motor deficit, no sensory deficit Skin: normal color, warm/dry, other (NO EXTERNAL EVIDENCE OF TRAUMA) Progress/Results/Core Measures Results/Orders Lab Results Laboratory Tests Test 03/23/19 21:53 03/23/19 23:48 Range/Units White Blood Count 8.6 4.3-11.0 10^3/uL Red Blood Count 4.89 4.35-5.85 10^6/uL Hemoglobin 14.1 11.5-16.0 G/DL Hematocrit 41 35-52 % Mean Corpuscular Volume 84 80-99 FL Mean Corpuscular Hemoglobin 29 25-34 PG Mean Corpuscular Hemoglobin Concent 34 32-36 G/DL Red Cell Distribution Width 12.8 10.0-14.5 % Platelet Count 312 130-400 10^3/uL Mean Platelet Volume 10.6 H 7.4-10.4 FL Neutrophils (%) (Auto) 64 42-75 % Lymphocytes (%) (Auto) 27 12-44 % Monocytes (%) (Auto) 8 0-12 % Eosinophils (%) (Auto) 0 0-10 % Basophils (%) (Auto) 1 0-10 % Neutrophils # (Auto) 5.5 1.8-7.8 X 10^3 Lymphocytes # (Auto) 2.4 1.0-4.0 X 10^3 Monocytes # (Auto) 0.7 0.0-1.0 X 10^3 Eosinophils # (Auto) 0.0 0.0-0.3 10^3/uL Basophils # (Auto) 0.1 0.0-0.1 10^3/uL Sodium Level 140 135-145 MMOL/L Potassium Level 4.0 3.6-5.0 MMOL/L Chloride Level 106 98-107 MMOL/L Carbon Dioxide Level 22 21-32 MMOL/L Anion Gap 12 5-14 MMOL/L Blood Urea Nitrogen 18 7-18 MG/DL Creatinine 0.88 0.60-1.30 MG/DL Estimat Glomerular Filtration Rate > 60 BUN/Creatinine Ratio 20 Glucose Level 127 H 70-105 MG/DL Calcium Level 9.5 8.5-10.1 MG/DL Corrected Calcium 9.1 8.5-10.1 MG/DL Magnesium Level 2.2 1.8-2.4 MG/DL Total Bilirubin 0.3 0.1-1.0 MG/DL Aspartate Amino Transf (AST/SGOT) 19 5-34 U/L Alanine Aminotransferase (ALT/SGPT) 23 0-55 U/L Alkaline Phosphatase 68 40-136 U/L Total Creatine Kinase 45 29-168 U/L Creatine Kinase MB 0.6 <6.6 NG/ML Total Protein 7.6 6.4-8.2 GM/DL Albumin 4.5 3.2-4.5 GM/DL TSH [place] Testing 1.72 0.35-4.94 UIU/ML Serum Alcohol < 10 <10 MG/DL Urine Color YELLOW Urine Clarity CLEAR Urine pH 6 5-9 Urine Specific [place] 1.020 1.016-1.022 Urine Protein NEGATIVE NEGATIVE Urine Glucose (UA) NEGATIVE NEGATIVE Urine Ketones NEGATIVE NEGATIVE Urine Nitrite NEGATIVE NEGATIVE Urine Bilirubin NEGATIVE NEGATIVE Urine Urobilinogen NORMAL NORMAL MG/DL Urine Leukocyte Esterase 3+ H NEGATIVE Urine RBC (Auto) 4+ H NEGATIVE Urine RBC 5-10 H /HPF Urine WBC 10-25 H /HPF Urine Squamous Epithelial Cells 10-25 H /HPF Urine Crystals NONE /LPF Urine Bacteria TRACE /HPF Urine Casts NONE /LPF Urine Mucus MODERATE H /LPF Urine Culture Indicated YES My Orders Orders - SHAQ OLSEN DO Ed Iv/Invasive Line Start (03/23/19 21:15) Urine Bedside (03/23/19 21:15) Monitor-Rhythm Ecg Trace Only (03/23/19 21:15) Alcohol (03/23/19 21:15) Cbc With Automated Diff (03/23/19 21:15) Comprehensive Metabolic Panel (03/23/19 21:15) Creatine Kinase (03/23/19 21:15) Creatine Kinase Mb (03/23/19 21:15) Drug Screen Stat (Urine) (03/23/19 21:15) Magnesium (03/23/19 21:15) Thyroid Analyzer (03/23/19 21:15) Ua Culture If Indicated (03/23/19 21:15) Ed Iv/Invasive Line Start (03/23/19 21:15) Lactated Ringers (Lr 1000 Ml Iv Solution (03/23/19 21:15) Urine Culture (03/23/19 23:48) Rx-Nitrofurantoin [place] (Rx-Macrobid) (03/24/19 00:23) Medications Given in ED Current Medications Medications Dose Ordered Sig/Kayode Route Start Time Stop Time Status Last Admin Dose Admin Lactated Ringer's 1,000 ml @ 0 mls/hr Q0M ONCE IV 03/23/19 21:15 03/23/19 21:16 DC 03/23/19 22:57 999 MLS/HR Vital Signs/I&O 03/23/19 20:41 Temp 98.4 Pulse 109 Resp 16 B/P (MAP) 133/73 (93) Blood Pressure Mean: 93 Departure Impression Primary Impression: SELF REPORTED SEIZURE Additional Impression: Urinary tract infection Disposition: 01 HOME, SELF-CARE Condition: Stable Departure-Patient Inst. Referrals: [facility] (PCP) Primary Care Physician DAVID CHOI APRN (Family) Primary Care Physician Patient Instructions: Seizures, Adult (DC), Urinary Tract Infection, Adult (DC) Add. Discharge Instructions: CONTINUE YOUR KEPPRA PRESCRIBED TYLENOL AND MOTRIN NEEDED FOR PAIN LOTS OF FLUIDS FOLLOW UP WITH [facility] THIS WEEK FOR FURTHER CARE All discharge instructions reviewed with patient and/or family. Voiced understanding. Scripts Nitrofurantoin Monohyd/M-Cryst (Macrobid 100 mg Capsule) 100 Mg Capsule 100 MG PO BID, #20 CAP Prov: HSAQ OLSEN DO 03/24/19 SHAQ OLSEN DO Mar 23, 2019 22:15
[2019-03-23 22:20] LABS: ALANINE AMINOTRANSFERASE 23 U/L (0-55); ALBUMIN 4.5 GM/DL (3.2-4.5); ALKALINE PHOSPHATASE 68 U/L (40-136); BILIRUBIN,TOTAL 0.3 MG/DL (0.1-1.0); BUN/CREATININE RATIO 20; CALCIUM 9.5 MG/DL (8.5-10.1); CARBON DIOXIDE 22 MMOL/L (21-32); CHLORIDE 106 MMOL/L (98-107); CREATINE KINASE 45 U/L (29-168); CREATININE SERUM 0.88 MG/DL (0.60-1.30); GFR ESTIMATED > 60; GLUCOSE 127 MG/DL (70-105); MAGNESIUM 2.2 MG/DL (1.8-2.4); SODIUM 140 MMOL/L (135-145); TOTAL PROTEIN 7.6 GM/DL (6.4-8.2)
[2019-03-23 22:40] LABS: CREATINE KINASE MB 0.6 NG/ML (<6.6); TSH (THYROID ANALYZER) 1.72 UIU/ML (0.35-4.94)
[2019-03-23 23:53] LABS: BILIRUBIN,URINE NEGATIVE (NEGATIVE); CLARITY,URINE CLEAR; COLOR,URINE YELLOW; GLUCOSE, URINE (UA) NEGATIVE (NEGATIVE); KETONES,URINE NEGATIVE (NEGATIVE); LEUKOCYTE ESTERASE ,URINE 3+ (NEGATIVE); NITRITE,URINE NEGATIVE (NEGATIVE); PH,URINE 6 (5-9); PROTEIN,URINE NEGATIVE (NEGATIVE); UROBILINOGEN,URINE NORMAL (NORMAL)
[2019-03-24 00:13] LABS: BACTERIA,URINE TRACE /HPF
[2019-03-24] MEDS ORDERED: RX-NITROFURANTOIN 100 MG (MACROBID) CAP PPK#2 PO STA (00:23)
[2019-03-24] MEDS ORDERED: NITR-65 PO (00:27)
[2019-03-24 00:37] LABS: AMPHETAMINE SCREEN, URINE NEGATIVE (NEGATIVE); BARBITURATE SCREEN URINE NEGATIVE (NEGATIVE); BENZODIAZEPINES SCREEN URINE NEGATIVE (NEGATIVE); CANNABINOID SCREEN, URINE NEGATIVE (NEGATIVE); COCAINE SCREEN URINE NEGATIVE (NEGATIVE); METHADONE STAT NEGATIVE (NEGATIVE); METHAMPHETAMINE SCREEN URINE S NEGATIVE (NEGATIVE); OPIATE SCREEN URINE NEGATIVE (NEGATIVE); OXYCODONE STAT NEGATIVE (NEGATIVE); PROPOXYPHENE STAT NEGATIVE (NEGATIVE); TRICYCLIC ANTIDEPRESSANTS SCRE NEGATIVE (NEGATIVE)
[2019-03-24 00:43] VITALS: BP 130/76
--- OUTSIDE RECORDS SUMMARY | 2019-03-24 01:35 | XMS REPORT ---
Author Author Migration, Doctor Organization [facility] Address Unknown Phone Unavailable Care Team Providers Care Microsystems Engineer Name Role Phone Migration, Doctor Unavailable Unavailable PROBLEMS Type Condition ICD9-CM Code [id number] Code Onset Dates Condition Status SNOMED Code Problem Mixed hyperlipidemia E78.2 Active 474965817 Problem Morbid obesity E66.01 Active 960795931 Problem Dysthymia F34.1 Active 45821227 Problem Depression with anxiety F41.8 Active 75764713 Problem Acne L70.9 Active 01029821 Problem Non compliance w medication regimen Z91.14 Active 136556383 Problem Acute seasonal allergic rhinitis, unspecified trigger J30.2 Active 610035950 Problem Insulin resistance E88.81 Active 931539683 ALLERGIES No Information ENCOUNTERS Encounter Location Date Diagnosis [place] [address] [address] Mar, [place] [address] [address] February, Dysthymia F34.1 and Seizure R56.9 [facility] [address] [place] [address] Dec, Non-recurrent acute suppurative otitis media of left ear without spontaneous rupture of tympanic membrane H66.002 and Morbid obesity E66.01 [facility] [address] [place] [id number] [place] [address] Nov, [facility] [address] [address] Nov, [facility] [address] [address] Oct, Dysthymia F34.1 ; Seizure R56.9 ; Dermatitis L30.9 and BMI 45.0-49.9, adult Z68.42 [place] [address] [place] [id number] [place] [address] Sep, [place] [address] [address] May, Depression with anxiety F41.[address] [address] May, History of epilepsy Z86.69 [place] [address] [address] May, History of seizures Z87.898 ; Non compliance w medication regimen Z91.14 and Dysthymia F34.1 [place] [address] [address] Mar, History of seizures Z87.898 ; Frequent headaches R51 ; Non compliance w medication regimen Z91.14 and BMI 45.0-49.9, adult Z68.42 [place] [address] [place] [id number] [place] [address] Dec, Insulin resistance E88.81 ; BMI 40.0-44.9, adult Z68.41 ; Frequent headaches R51 and Non compliance w medication regimen Z91.14 [place] [address] [place] [id number] [place] [address] Nov, [place] [address] [place] [id number] [place] [address] Nov, Insulin resistance E88.81 [place] [address] [place] [id number] [place] [address] Nov, [address] [address] Nov, Hospital discharge follow-up Z09 ; BMI 40.0-44.9, adult Z68.41 and Metabolic syndrome E88.81 [place] [id number] [place] [address] Oct, Hospital discharge follow-up Z09 ; BMI 40.0-44.9, adult Z68.41 ; Morbid obesity E66.01 ; Metabolic syndrome E88.81 ; Non compliance w medication regimen Z91.14 and Seizure R56.9 [facility] IN [facility] [address] [address] Sep, Sore throat J02.9 ; Right acute serous otitis media, recurrence not specified H65.01 and Acute seasonal allergic rhinitis, unspecified trigger J30.2 [facility] [place] [address] [address] Jul, Sore throat J02.9 and Pharyngitis due to other organism J02.8 [facility] [place] [address] [address] February, Sore throat J02.9 ; Acute middle ear effusion, bilateral H65.193 and Strep pharyngitis J02.0 [place] [address] [address] Aug, [address] [address] May, Acute otitis externa of both ears, unspecified type H60.503 ; Morbid obesity E66.01 and Non compliance w medication regimen Z91.14 [place] [address] [address] February, Morbid obesity E66.01 ; Anxiety associated with depression F41.8 ; Episodic tension-type headache, not intractable G44.219 and High blood pressure (not hypertension) R03.0 [place] [address] [address] Jan, Morbid obesity E66.01 ; History of epilepsy Z86.69 ; Metabolic syndrome E88.81 ; Anxiety associated with depression F41.8 and Hyperlipidemia E78.[address] [address] Dec, Morbid obesity E66.01 ; Acne L70.9 ; Family history of diabetes mellitus Z83.3 ; Anxiety associated with depression F41.8 ; Insulin resistance E88.81 ; Metabolic syndrome E88.81 and Hyperlipidemia E78.5 [place] [address] [place] [id number] [place] [address] Dec, [place] [address] [address] Nov, Routine health maintenance Z00.00 ; Morbid obesity E66.01 ; Acne L70.9 and Family history of diabetes mellitus Z83.[address] [address] Nov, Routine health maintenance Z00.00 ; Morbid obesity E66.01 ; Morbid obesity due to excess calories E66.01 ; History of epilepsy Z86.69 ; Acne L70.9 ; Family history of diabetes mellitus Z83.3 ; Family history of cancer Z80.9 ; Anxiety associated with depression F41.8 and 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 [place] [address] [address] Jun, Infective otitis externa 380.10 [place] [address] [address] May, Sore throat 462 and Sinusitis 473.[address] [address] Mar, Sinusitis, acute 461.9 [place] [address] [address] 14 Jan, 2015 [place] [address] [address] 13 Jan, 2015 [place] [address] [address] 06 Aug, 2014 [place] [address] [address] Aug, [facility] [place] [facility] [address] [id number] [place] [address] May, [facility] [place] [facility] [address] [id number] [place] [address] May, [facility] [place] [facility] [address] [id number] [place] [address] Mar, [facility] [place] [facility] [address] [id number] [place] [address] Mar, [facility] [place] [facility] [address] [id number] [place] [address] Mar, [facility] [place] [facility] [address] [id number] [place] [address] Mar, [facility] [place] [facility] [address] [id number] [place] [address] Mar, [facility] [place] [facility] [address] [id number] [place] [address] Mar, [facility] [place] [facility] [address] [id number] [place] [address] Mar, [facility] [place] [facility] [address] [id number] [place] [address] Mar, [facility] [place] [facility] [address] [id number] [place] [address] 15 Oct, 2013 [facility] [place] [facility] [address] [id number] [address] Oct, [facility] [place] [facility] [address] [id number] [place] [address] Oct, [facility] [place] [facility] [address] [id number] [place] [address] Oct, [facility] [place] [facility] [address] [id number] [place] [address] Oct, [facility] [place] [facility] [address] [id number] [address] Oct, [facility] [address] [id number] [address] Oct, [facility] [address] [place] [address] Sep, [facility] [address] [place] [id number] [address] Sep, [facility] [address] [place] [address] Sep, [facility] [address] [place] [address] Sep, [facility] [address] [place] [address] Sep, [facility] [address] [place] [address] Jun, [facility] [address] [place] [id number] [address] Jun, IMMUNIZATIONS No Known Immunizations SOCIAL HISTORY Never Assessed REASON FOR VISIT [facility] PLAN OF CARE VITAL SIGNS MEDICATIONS Unknown Medications RESULTS No Results PROCEDURES No Known procedures INSTRUCTIONS MEDICATIONS ADMINISTERED No Known Medications MEDICAL (GENERAL) HISTORY Type Description Date Medical History Depression Medical History Epilepsy Medical History KOBUK in Left ear Surgical History 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
--- OUTSIDE RECORDS SUMMARY | 2019-03-24 01:42 | XMS REPORT | Continuity of Care Document ---
Author Organization Unknown Address Unknown Allergies Active Description Code Type Severity Reaction Onset Reported/Identified Relationship to Patient Clinical Status Yes Penicillins Drug Allergy N/A N/A 06/27/2012 Yes Sulfa(Sulfonamide Antibiotics) Drug Allergy N/A N/A 06/27/2012 Yes Tegretol Drug Allergy N/A N/A 06/27/2012 Yes Keppra 500 mg tablet Drug Allergy N/A N/A 07/06/2012 Yes Penicillins [id number] Drug Allergy Moderate N/A 12/20/2015 Yes Sulfa (Sulfonamide Antibiotics) [id number] Drug Allergy Moderate N/A 12/20/2015 Yes amoxicillin [id number] Drug Allergy Unknown N/A 12/20/2015 Yes carbamazepine [id number] Drug Allergy Unknown N/A 12/20/2015 Medications There is no data. Problems Date Dx Coded Attending Type Code Diagnosis Diagnosed By 06/27/2012 GEOFF REED APRN 345.00 GENERALIZED NONCONVULSIVE EPILEPSY WITHOUT INTRACTABLE EPILEPSY 06/27/2012 NOEL MEYERS APRN 345.00 GENERALIZED NONCONVULSIVE EPILEPSY WITHOUT INTRACTABLE EPILEPSY 06/27/2012 HUSSEIN HOLLINS, SILVER 345.00 GENERALIZED NONCONVULSIVE EPILEPSY WITHOUT INTRACTABLE EPILEPSY [...] DERMATITIS AND OTHER ECZEMA UNSPECIFIED CAUSE 09/30/2013 MALIA MEYERS APRNCY N V58.69 LONG-TERM (CURRENT) USE OF OTHER MEDICATIONS 09/30/2013 MALIA MEYERS APRNCY N V67.9 UNSPECIFIED FOLLOW-UP EXAMINATION 09/30/2013 SILVER SAVAGE MD V58.69 LONG-TERM (CURRENT) USE OF OTHER MEDICATIONS 09/30/2013 SILVER SAVAGE MD V67.9 UNSPECIFIED FOLLOW-UP EXAMINATION 09/30/2013 MALIA MEYERS APRNCY N V58.69 LONG-TERM (CURRENT) USE OF OTHER MEDICATIONS 09/30/2013 JOSE BYNUM APRN NOEL N V67.9 UNSPECIFIED FOLLOW-UP EXAMINATION 09/30/2013 GEOFF REED APRN R V58.69 LONG-TERM (CURRENT) USE OF OTHER MEDICATIONS 09/30/2013 GEOFF REED APRN R V67.9 UNSPECIFIED FOLLOW-UP EXAMINATION 09/30/2013 MALIA MEYERS APRNCY N V58.69 LONG-TERM (CURRENT) USE OF OTHER MEDICATIONS 09/30/2013 MALIA MEYERS APRNCY N V67.9 UNSPECIFIED FOLLOW-UP EXAMINATION 09/30/2013 V58.69 LONG-TERM (CURRENT) USE OF OTHER MEDICATIONS 09/30/2013 V67.9 UNSPECIFIED FOLLOW- UP EXAMINATION 10/26/2013 SILVER SAVAGE MD 380.4 IMPACTED CERUMEN 10/26/2013 SILVER SAVAGE MD 465.9 ACUTE UPPER RESPIRATORY INFECTIONS OF UNSPECIFIED SITE 10/26/2013 GARCIA CASHERO ANATOMIC PATHOLOGIST, NOEL N 380.4 IMPACTED CERUMEN 10/26/2013 GARCIA CASHERO ANATOMIC PATHOLOGIST, NOEL N 465.9 ACUTE UPPER RESPIRATORY INFECTIONS OF UNSPECIFIED SITE 10/26/2013 REED ANATOMIC PATHOLOGIST, GEOFF R 380.4 IMPACTED CERUMEN 10/26/2013 REED ANATOMIC PATHOLOGIST, GEOFF R 465.9 ACUTE UPPER RESPIRATORY INFECTIONS OF UNSPECIFIED SITE 10/26/2013 GARCIA CASHERO ANATOMIC PATHOLOGIST, NOEL N 380.4 IMPACTED CERUMEN 10/26/2013 GARCIA CASHERO ANATOMIC PATHOLOGIST, NOEL N 465.9 ACUTE UPPER RESPIRATORY INFECTIONS OF UNSPECIFIED SITE 10/26/2013 380.4 IMPACTED CERUMEN 10/26/2013 465.9 ACUTE UPPER RESPIRATORY INFECTIONS OF UNSPECIFIED SITE 11/01/2013 GARCIA CASHERO ANATOMIC PATHOLOGIST, NOEL N 278.00 OBESITY 11/01/2013 GARCIA CASHERO ANATOMIC PATHOLOGIST, NOEL N 626.0 AMENORRHEA 11/01/2013 BRIANNA ANATOMIC PATHOLOGIST, GEOFF R 278.00 OBESITY 11/01/2013 REED ANATOMIC PATHOLOGIST, GEOFF R 626.0 AMENORRHEA 11/01/2013 GARCIA CASHERO ANATOMIC PATHOLOGIST, NOEL N 278.00 OBESITY 11/01/2013 GARCIA CASHERO ANATOMIC PATHOLOGIST, NOEL N 626.0 AMENORRHEA 11/01/2013 278.00 OBESITY 11/01/2013 626.0 AMENORRHEA 11/02/2013 GARCIA CASHERO ANATOMIC PATHOLOGIST, NOEL N 784.49 OTHER VOICE AND RESONANCE DISORDERS 11/02/2013 GARCIA CASHERO ANATOMIC PATHOLOGIST, NOEL N 786.2 COUGH 11/02/2013 BRIANNA URBINA GEOFF R 784.49 OTHER VOICE AND RESONANCE DISORDERS 11/02/2013 BRIANNA LONGON, GEOFF R 786.2 COUGH 11/02/2013 GARCIA CASHERO ANATOMIC PATHOLOGIST, NOEL N 784.49 OTHER VOICE AND RESONANCE DISORDERS 11/02/2013 GARCIA CASHERO ANATOMIC PATHOLOGIST, NOEL N 786.2 COUGH 11/02/2013 784.49 OTHER VOICE AND RESONANCE DISORDERS 11/02/2013 786.2 COUGH 11/04/2013 BASILIO CANALES Ot 466.0 ACUTE BRONCHITIS 11/04/2013 BASILIO CANALES Ot 786.2 COUGH 02/01/2014 JUAN LUIS HOLLINS, STEF T Ot 346.90 MIGRAINE UNSPECIFIED W/O INTRACT MGRN W/ 02/12/2014 BRENDAN HOLLINS, DELISA A Ot 346.90 MIGRAINE UNSPECIFIED W/O INTRACT MGRN W/ 02/12/2014 BRENDAN HOLLISN, DELISA A Ot 784.0 HEADACHE 02/14/2014 BRENDAN HOLLINS, DELISA A Ot 346.90 MIGRAINE UNSPECIFIED W/O INTRACT MGRN W/ 02/14/2014 BRENDAN HOLLINS, DELISA A Ot 784.0 HEADACHE 04/04/2014 SHAQ OLSEN DO Ot 784.0 HEADACHE 04/06/2014 REED ANATOMIC PATHOLOGIST, GEOFF R 345.80 OTHER FORMS OF EPILEPSY AND RECURRENT SEIZURES WITHOUT MENTION OF INTRACTABLE EPILEPSY 04/06/2014 REED ANATOMIC PATHOLOGIST, GEOFF R 368.8 OTHER SPECIFIED VISUAL DISTURBANCES 04/06/2014 REED ANATOMIC PATHOLOGIST, GEOFF R 784.0 HEADACHE 04/06/2014 REED ANATOMIC PATHOLOGIST, GEOFF R 787.02 NAUSEA ALONE 04/06/2014 REED ANATOMIC PATHOLOGIST, GEOFF R 787.03 VOMITING ALONE 04/06/2014 GARCIA CASHERO ANATOMIC PATHOLOGIST, NOEL N 345.80 OTHER FORMS OF EPILEPSY AND RECURRENT SEIZURES WITHOUT MENTION OF INTRACTABLE EPILEPSY 04/06/2014 GARCIA CASHERO ANATOMIC PATHOLOGIST, NOEL N 368.8 OTHER SPECIFIED VISUAL DISTURBANCES 04/06/2014 GARCIA CASHERO ANATOMIC PATHOLOGIST, NOEL N 784.0 HEADACHE 04/06/2014 GARCIA CASHERO ANATOMIC PATHOLOGIST, NOEL N 787.02 NAUSEA ALONE 04/06/2014 GARCIA CASHERO ANATOMIC PATHOLOGIST, NOEL N 787.03 VOMITING ALONE 04/06/2014 345.80 [...] Ot 787.03 VOMITING ALONE 03/24/2015 CELIA HUGHES ANATOMIC PATHOLOGIST Ot 462 ACUTE PHARYNGITIS 03/24/2015 CELIA HUGHES APRN Ot 466.0 ACUTE BRONCHITIS 05/16/2015 RAÚL PDAMINIA K Ot 784.0 HEADACHE 06/21/2015 ANTONIA BARNES [...] RONDA CHASE MD Ot R05 COUGH 10/14/2015 RAÚL , SHAQ K Ot N39.0 URINARY TRACT INFECTION, SITE NOT SPECIF 10/14/2015 RAÚL PRICE SHAQ K Ot Z90.5 ACQUIRED ABSENCE OF KIDNEY 11/26/2015 BASILIO CANALES Ot G43.909 MIGRAINE, UNSP, NOT INTRACTABLE, WITHOUT 11/26/2015 BASILIO CANALES Ot N39.0 URINARY TRACT INFECTION, SITE NOT SPECIF 12/04/2015 CELIA HUGHES ANATOMIC PATHOLOGIST Ot N61 INFLAMMATORY DISORDERS OF BREAST 12/16/2015 BASILIO CANALES Ot J20.9 ACUTE BRONCHITIS, UNSPECIFIED 12/16/2015 BASILIO CANALES Ot R11.2 NAUSEA WITH VOMITING, UNSPECIFIED 12/16/2015 CELIA HUGHES APRN Ot N61 12/20/2015 JUAN LUIS HOLLINS, STEF Ortega Ot E78.0 PURE HYPERCHOLESTEROLEMIA 12/20/2015 JUAN LUIS HOLLINS, STEF Ortega Ot F41.9 ANXIETY DISORDER, UNSPECIFIED 12/20/2015 JUAN LUIS HOLLINS, STEF Ortega Ot I10 ESSENTIAL (PRIMARY) HYPERTENSION 12/20/2015 JUAN LUIS HOLLINS, STEF Ortega Ot R07.89 OTHER CHEST PAIN 12/20/2015 JUAN LUIS HOLLINS, STEF Ortega Ot Z79.899 OTHER MCC (CURRENT) DRUG THERAPY 02/16/2016 CELIA HUGHES ANATOMIC PATHOLOGIST Ot N39.0 URINARY TRACT INFECTION, SITE NOT SPECIF 02/16/2016 CELIA HUGHES ANATOMIC PATHOLOGIST Ot R51 HEADACHE 02/19/2016 CELIA HUGHES ANATOMIC PATHOLOGIST Ot N39.0 URINARY TRACT INFECTION, SITE NOT SPECIF 02/19/2016 CELIA HUGHES ANATOMIC PATHOLOGIST Ot R51 HEADACHE 04/30/2016 CELIA HUGHES ANATOMIC PATHOLOGIST Ot R51 HEADACHE 05/01/2016 CELIA HUGHES ANATOMIC PATHOLOGIST Ot R51 HEADACHE 05/10/2016 CELIA HUGHES ANATOMIC PATHOLOGIST Ot H66.91 OTITIS MEDIA, UNSPECIFIED, RIGHT EAR 05/10/2016 CELIA HUGHES ANATOMIC PATHOLOGIST Ot H92.01 OTALGIA, RIGHT EAR 05/13/2016 CELIA HUGHES ANATOMIC PATHOLOGIST Ot H66.91 OTITIS MEDIA, UNSPECIFIED, RIGHT EAR 05/13/2016 CELIA HUGHES ANATOMIC PATHOLOGIST Ot H92.01 OTALGIA, RIGHT EAR 07/04/2016 JUNO [...] JUNO ABRAHAM MD Ot R05 COUGH 07/11/2016 JARAD HOLLINS, JUNO K Ot R50.9 FEVER, UNSPECIFIED 10/25/2016 NEPTALI HOLLINS, KAMI Milton Ot 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, LEFT 10/25/2016 NEPTALI HOLLINS, KAMI S Ot H57.9 UNSPECIFIED DISORDER OF EYE AND ADNEXA 10/25/2016 NEPTALI HOLLINS, KAMI S Ot 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, LEFT 10/25/2016 NEPTALI HOLLINS, KAMI S Ot H57.9 UNSPECIFIED DISORDER OF EYE AND ADNEXA 12/21/2016 BASILIO CANALES Ot I10 ESSENTIAL (PRIMARY) HYPERTENSION 12/21/2016 BASILIO CANALES Ot J02.9 ACUTE PHARYNGITIS, UNSPECIFIED 12/21/2016 BASILIO CANALES Ot J10.1 FLU DUE TO OTH IDENT INFLUENZA VIRUS W O 12/21/2016 BASILIO CANALES Ot Z79.899 OTHER MCC (CURRENT) DRUG THERAPY 12/21/2016 BASILIO CANALES Ot Z90.5 ACQUIRED ABSENCE OF KIDNEY 12/23/2016 BASILIO CANALES Ot I10 ESSENTIAL (PRIMARY) HYPERTENSION 12/23/2016 BASILIO CANALES Ot J02.9 ACUTE PHARYNGITIS, UNSPECIFIED 12/23/2016 BASILIO CANALES Ot J10.1 FLU DUE TO OTH IDENT INFLUENZA VIRUS W O 12/23/2016 BASILIO CANALES Ot Z79.899 OTHER MCC (CURRENT) DRUG THERAPY 12/23/2016 BASILIO CANALES Ot Z90.5 ACQUIRED ABSENCE OF KIDNEY 12/27/2016 BASILIO CANALES Ot I10 ESSENTIAL (PRIMARY) HYPERTENSION 12/27/2016 BASILIO CANALES Ot J02.9 ACUTE PHARYNGITIS, UNSPECIFIED 12/27/2016 BASILIO CANALES Ot J10.1 FLU DUE TO OTH IDENT INFLUENZA VIRUS W O 12/27/2016 BASILIO CANALES Ot Z79.899 OTHER REAL ESTATE CLOSER (CURRENT) DRUG THERAPY 12/27/2016 BASILIO CANALES Ot Z90.5 ACQUIRED ABSENCE OF KIDNEY 03/12/2017 RONA PA, BASILIO L Ot I10 ESSENTIAL (PRIMARY) HYPERTENSION 03/12/2017 BASILIO CANALES Ot J02.0 STREPTOCOCCAL PHARYNGITIS 03/12/2017 BASILIO CANALES Ot J02.9 ACUTE PHARYNGITIS, UNSPECIFIED 03/12/2017 BASILIO CANALES L Ot 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 ACQUIRED ABSENCE OF KIDNEY 03/13/2017 JEAN MARIE CANALESEN L Ot I10 ESSENTIAL (PRIMARY) HYPERTENSION 03/13/2017 BASILIO CANALES Ot J02.0 STREPTOCOCCAL PHARYNGITIS 03/13/2017 BASILIO CANALES Ot J02.9 ACUTE PHARYNGITIS, UNSPECIFIED 03/13/2017 BASILIO CANALES Ot Z90.5 ACQUIRED ABSENCE OF KIDNEY 08/08/2017 BASILIO CANALES Ot F32.9 MAJOR DEPRESSIVE DISORDER, SINGLE EPISOD 08/08/2017 BASILIO CANALES Ot F41.9 ANXIETY DISORDER, UNSPECIFIED 08/08/2017 BASILIO CNAALES Ot G40.909 EPILEPSY, UNSP, NOT INTRACTABLE, WITHOUT [...] Ot I10 ESSENTIAL (PRIMARY) HYPERTENSION 2017 RAÚL DO, SHAQ K Ot N39.0 URINARY TRACT INFECTION, SITE NOT SPECIF 2017 RAÚL , SHAQ K Ot R10.84 GENERALIZED ABDOMINAL PAIN 2017 RAÚL SHAQ PRICE K Ot Z90.5 ACQUIRED ABSENCE OF KIDNEY 2017 RAÚL , SHAQ K Ot Z90.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 10/18/2017 HAMMAD ROACH MD Ot E78.00 PURE HYPERCHOLESTEROLEMIA, UNSPECIFIED 10/18/2017 HAMMAD ROACH MD J Ot F32.9 MAJOR DEPRESSIVE DISORDER, SINGLE EPISOD 10/18/2017 HAMMAD ROACH MD J Ot F41.9 ANXIETY DISORDER, UNSPECIFIED 10/18/2017 HAMMAD ROACH MD J Ot I10 ESSENTIAL (PRIMARY) HYPERTENSION 10/18/2017 HAMMAD ROACH MD J Ot J02.9 ACUTE PHARYNGITIS, UNSPECIFIED 10/18/2017 MAY ROACH MDUS J Ot Z90.49 ACQUIRED ABSENCE OF OTHER SPECIFIED PART 10/18/2017 HAMMAD ROACH MD J Ot Z90.5 ACQUIRED ABSENCE OF KIDNEY 11/14/2017 HAMMAD ROACH MD J Ot E78.00 PURE HYPERCHOLESTEROLEMIA, UNSPECIFIED 11/14/2017 HAMMAD ROACH MD Ot F32.9 MAJOR DEPRESSIVE DISORDER, SINGLE EPISOD 11/14/2017 HAMMAD ROACH MD J Ot F41.9 ANXIETY DISORDER, UNSPECIFIED 11/14/2017 HAMMAD ROACH MD J Ot G40.909 EPILEPSY, UNSP, NOT INTRACTABLE, WITHOUT 11/14/2017 MAY ROACH MDUS J Ot G43.909 MIGRAINE, UNSP, NOT INTRACTABLE, WITHOUT 11/14/2017 MAY ROACH MDUS J Ot I10 ESSENTIAL (PRIMARY) HYPERTENSION 11/14/2017 HAMMAD ROACH MD Ot N39.0 URINARY TRACT INFECTION, SITE NOT SPECIF 11/14/2017 HAMMAD ROACH MD J Ot Z90.5 ACQUIRED ABSENCE OF KIDNEY 11/14/2017 HAMMAD ROACH MD J Ot Z90.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 11/17/2017 HAMMAD ROACH MD J Ot E78.00 PURE HYPERCHOLESTEROLEMIA, UNSPECIFIED 11/17/2017 HAMMAD ROACH MD Ot F32.9 MAJOR DEPRESSIVE DISORDER, SINGLE EPISOD 11/17/2017 HAMMAD ROACH MD J Ot F41.9 ANXIETY DISORDER, UNSPECIFIED 11/17/2017 DOC HOLLINS, HAMMAD Mijares Ot G40.909 EPILEPSY, UNSP, NOT INTRACTABLE, WITHOUT 11/17/2017 DOC HOLLINS, HAMMAD Mijares Ot G43.909 MIGRAINE, UNSP, NOT INTRACTABLE, WITHOUT 11/17/2017 HAMMAD ROACH MD Ot I10 ESSENTIAL (PRIMARY) HYPERTENSION 11/17/2017 HAMMAD ROACH MD Ot N39.0 URINARY TRACT INFECTION, SITE NOT SPECIF 11/17/2017 HAMMAD ROACH MD Ot Z90.5 ACQUIRED ABSENCE OF KIDNEY 11/17/2017 [...] ALLERGY STATUS TO PENICILLIN 03/29/2018 RAÚL DO HSAQ K Ot Z88.1 ALLERGY STATUS TO OTHER ANTIBIOTIC AGENT 03/29/2018 RAÚL DO SHAQ K Ot Z88.2 ALLERGY STATUS TO SULFONAMIDES STATUS 03/29/2018 RAÚL DO SHAQ K Ot Z88.8 ALLERGY STATUS TO OTH DRUG/MEDS/BIOL SUB 03/29/2018 RAÚL DO SHAQ K Ot Z90.5 ACQUIRED ABSENCE OF KIDNEY 03/29/2018 RAÚL DO SHAQ K Ot Z90.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 03/31/2018 RAÚL DO, SHAQ K Ot E78.00 PURE [...] Ot Z90.5 ACQUIRED ABSENCE OF KIDNEY 03/31/2018 RAÚL DO, SHAQ K Ot Z90.89 ACQUIRED ABSENCE [...] ALLERGY STATUS TO OTH DRUG/MEDS/BIOL SUB 04/04/2018 RAÚL DO, SHAQ K Ot Z90.5 ACQUIRED ABSENCE OF KIDNEY 04/04/2018 [...] OF OTHER SPECIFIED COND 10/09/2018 NELIDA, ERIKA HELPDESK MANAGER Ot E78.00 PURE HYPERCHOLESTEROLEMIA, UNSPECIFIED 10/09/2018 NELIDA, ERIKA HELPDESK MANAGER Ot F32.9 MAJOR DEPRESSIVE DISORDER, SINGLE EPISOD 10/09/2018 NELIDA, ERIKA HELPDESK MANAGER Ot F41.9 ANXIETY DISORDER, UNSPECIFIED 10/09/2018 NELIDA, ERIKA HELPDESK MANAGER Ot G40.909 EPILEPSY, UNSP, NOT INTRACTABLE, WITHOUT 10/09/2018 NELIDA, ERIKA HELPDESK MANAGER Ot G43.909 MIGRAINE, UNSP, NOT INTRACTABLE, WITHOUT 10/09/2018 NELIDA, ERIKA HELPDESK MANAGER Ot I10 ESSENTIAL (PRIMARY) HYPERTENSION 10/09/2018 NELIDA, ERIKA HELPDESK MANAGER Ot N39.0 URINARY TRACT INFECTION, SITE NOT SPECIF 10/09/2018 NELIDA, ERIKA HELPDESK MANAGER Ot R56.9 UNSPECIFIED CONVULSIONS 10/09/2018 NELIDA, ERIKA HELPDESK MANAGER Ot Z88.0 ALLERGY STATUS TO PENICILLIN 10/09/2018 NELIDA, ERIKA HELPDESK MANAGER Ot Z88.1 ALLERGY STATUS TO OTHER ANTIBIOTIC AGENT 10/09/2018 NELIDA, ERIKA HELPDESK MANAGER Ot Z88.2 ALLERGY STATUS TO SULFONAMIDES STATUS 10/09/2018 NELIDA, ERIKA HELPDESK MANAGER Ot Z88.8 ALLERGY STATUS TO OTH DRUG/MEDS/BIOL SUB 10/09/2018 NELIDA, ERIKA HELPDESK MANAGER Ot Z90.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 10/14/2018 NELIDA, ERIKA HELPDESK MANAGER Ot E78.00 PURE HYPERCHOLESTEROLEMIA, UNSPECIFIED 10/14/2018 NELIDA, ERIKA HELPDESK MANAGER Ot F32.9 MAJOR DEPRESSIVE DISORDER, SINGLE EPISOD 10/14/2018 NELIDA, ERIKA HELPDESK MANAGER Ot F41.9 ANXIETY DISORDER, UNSPECIFIED 10/14/2018 NELIDA, ERIKA HELPDESK MANAGER Ot G40.909 EPILEPSY, UNSP, NOT INTRACTABLE, WITHOUT 10/14/2018 NELIDA, ERIKA HELPDESK MANAGER Ot G43.909 MIGRAINE, UNSP, NOT INTRACTABLE, WITHOUT 10/14/2018 NELIDA, ERIKA HELPDESK MANAGER Ot I10 ESSENTIAL (PRIMARY) HYPERTENSION 10/14/2018 NELIDA, ERIKA HELPDESK MANAGER Ot N39.0 URINARY TRACT INFECTION, SITE NOT SPECIF 10/14/2018 NELIDA, ERIKA HELPDESK MANAGER Ot R56.9 UNSPECIFIED CONVULSIONS 10/14/2018 NELIDA, ERIKA HELPDESK MANAGER Ot Z88.0 ALLERGY STATUS TO PENICILLIN 10/14/2018 NELIDA, ERIKA HELPDESK MANAGER Ot Z88.1 ALLERGY STATUS TO OTHER ANTIBIOTIC AGENT 10/14/2018 NELIDA, ERIKA HELPDESK MANAGER Ot Z88.2 ALLERGY STATUS TO SULFONAMIDES STATUS 10/14/2018 NELIDA, ERIKA HELPDESK MANAGER Ot Z88.8 ALLERGY STATUS TO OT DRUG/MEDS/BIOL SUB 10/14/2018 NELIDA, ERIKA HELPDESK MANAGER Ot Z90.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 10/16/2018 NELIDA, ERIKA HELPDESK MANAGER Ot E78.00 PURE HYPERCHOLESTEROLEMIA, UNSPECIFIED 10/16/2018 NELIDA, ERIKA HELPDESK MANAGER Ot F32.9 MAJOR DEPRESSIVE DISORDER, SINGLE EPISOD 10/16/2018 NELIDA, ERIKA HELPDESK MANAGER Ot F41.9 ANXIETY DISORDER, UNSPECIFIED 10/16/2018 NELIDA, ERIKA HELPDESK MANAGER Ot G40.909 EPILEPSY, UNSP, NOT INTRACTABLE, WITHOUT 10/16/2018 NELIDA, ERIKA HELPDESK MANAGER Ot G43.909 MIGRAINE, UNSP, NOT INTRACTABLE, WITHOUT 10/16/2018 NELIDA, ERIKA HELPDESK MANAGER Ot I10 ESSENTIAL (PRIMARY) HYPERTENSION 10/16/2018 NELIDA, ERIKA HELPDESK MANAGER Ot N39.0 URINARY TRACT INFECTION, SITE NOT SPECIF 10/16/2018 NELIDA, ERIKA HELPDESK MANAGER Ot R56.9 UNSPECIFIED CONVULSIONS 10/16/2018 NELIDA, ERIKA HELPDESK MANAGER Ot Z88.0 ALLERGY STATUS TO PENICILLIN 10/16/2018 NELIDA, ERIKA HELPDESK MANAGER Ot Z88.1 ALLERGY STATUS TO OTHER ANTIBIOTIC AGENT 10/16/2018 NELIDA, ERIKA HELPDESK MANAGER Ot Z88.2 ALLERGY STATUS TO SULFONAMIDES STATUS [...] Procedures Code Description [place] [address] ROUTINE VENIPUNCTURE 09/30/2013 38958 CMP 09/30/2013 20114 CREATININE 09/30/2013 12859 BUN 09/30/2013 [id number] GFR CALC (RESULT ONLY) 09/30/2013 47890 CBC 10/01/2013 23915 EAR LAVAGE 10/26/2013 88655 ROUTINE VENIPUNCTURE 11/01/2013 46602 TEST, URINE (IN-HOUSE) 11/01/2013 79010 A1C (RML) 11/01/2013 33415 PROLACTIN 11/01/2013 33806 TSH 11/01/2013 17545 TESTOSTERONE TOTAL-WOMEN & CHILDREN 11/02/2013 Goyo Cote 04/12/2014 Results Test Result Range Streptococcus pyogenes antigen detection - 12/21/16 12:30 Streptococcus pyogenes antigen detection NEGATIVE NEGATIVE Bacterial throat culture - 12/21/16 12:30 Bacterial throat culture [facility] Streptococcus pyogenes antigen detection - 08/08/17 20:55 Streptococcus pyogenes antigen detection NEGATIVE NEGATIVE Bacterial throat culture - 08/08/17 20:55 Bacterial throat culture [facility] Complete urinalysis with reflex to culture - 09/18/17 00:45 Urine color determination RED NRG Urine clarity determination BLOODY NRG Urine pH measurement by test strip 5 5-9 Specific gravity of urine by test strip 1.030 1.016-1.022 Urine protein assay by test strip, semi-quantitative [...] sediment leukocyte count by microscopy (number/high power field) [HPF] NRG Bacteria detection in urine sediment [...] culture - 09/18/17 00:45 Bacterial urine culture [id number] NRG COLONY COUNT 10,000/ML - 100,000/ML NRG [...] Automated erythrocyte mean corpuscular hemoglobin concentration measurement (mass/volume) 33 g/dL 32-36 Automated erythrocyte distribution width ratio 13.8 % 10.0- 14.5 Automated blood platelet count (count/volume) 337 10*3/uL [...] Blood monocytes automated count (number/volume) 0.8 10*3 0.0- 1.0 Automated eosinophil count 0.0 10*3/uL 0.0-0.3 Automated [...] Serum or plasma aspartate aminotransferase measurement (enzymatic activity/volume) 24 U/L 5-34 Serum or plasma alanine aminotransferase measurement (enzymatic activity/volume) 30 U/L 0-55 Serum or plasma protein measurement (mass/volume) 6.8 g/dL 6.4-8.2 Serum or plasma albumin measurement (mass/volume) 4.0 g/dL 3.2-4.5 Serum or plasma C reactive protein measurement (mass/volume) - 11/14/17 18:23 Serum or plasma C reactive protein measurement (mass/volume) 1.55 mg/dL 0.00-0.50 Complete urinalysis with reflex to culture - 11/14/17 18:51 Urine color determination YELLOW NRG Urine clarity determination CLEAR NRG Urine pH measurement by test strip 8 5-9 Specific gravity of urine by test strip 1.010 1.016-1.022 Urine protein assay by test strip, semi-quantitative [...] sediment leukocyte count by microscopy (number/high power field) [HPF] NRG Bacteria detection in urine sediment [...] gravity of urine by test strip 1.020 1.016-1.022 Urine protein assay by test strip, semi-quantitative [...] sediment leukocyte count by microscopy (number/high power field) NONE NRG Bacteria detection in urine sediment [...] Automated erythrocyte mean corpuscular hemoglobin concentration measurement (mass/volume) 34 g/dL 32-36 Automated erythrocyte distribution width ratio 13.4 % 10.0- 14.5 Automated blood platelet count (count/volume) 275 10*3/uL [...] Blood monocytes automated count (number/volume) 0.6 10*3 0.0- 1.0 Automated eosinophil count 0.0 10*3/uL 0.0-0.3 Automated [...] Serum or plasma aspartate aminotransferase measurement (enzymatic activity/volume) 14 U/L 5-34 Serum or plasma alanine aminotransferase measurement (enzymatic activity/volume) 23 U/L 0-55 Serum or plasma protein measurement (mass/volume) 7.1 g/dL 6.4-8.2 Serum or plasma albumin measurement (mass/volume) 4.2 g/dL 3.2-4.5 Magnesium - 03/29/18 04:00 Magnesium 2.0 mg/dL 1.8-2.4 Serum or plasma creatine kinase measurement (enzymatic activity/volume) - 03/29/18 04:00 Serum or plasma creatine kinase measurement (enzymatic activity/volume) 28 U/L 29-168 Serum or plasma thyrotropin measurement by detection limit <=0.05 miu/l (units/volume) - 03/29/18 04:00 Serum or plasma thyrotropin measurement by detection limit <=0.05 miu/l (units/volume) 2.37 u[iU]/mL 0.35-4.94 Serum or plasma ethanol [...] Serum or plasma aspartate aminotransferase measurement (enzymatic activity/volume) 16 U/L 5-34 Serum or plasma alanine aminotransferase measurement (enzymatic activity/volume) 21 U/L 0-55 Serum or plasma protein measurement (mass/volume) 7.3 g/dL 6.4-8.2 Serum or plasma albumin measurement (mass/volume) 4.5 g/dL 3.2-4.5 Complete urinalysis with reflex to culture - 10/09/18 17:49 Urine color determination YELLOW NRG Urine clarity determination SLIGHTLY CLOUDY NRG Urine pH measurement by test strip 7 5-9 Specific gravity of urine by test strip 1.010 1.016-1.022 Urine protein assay by test strip, semi-quantitative [...] sediment leukocyte count by microscopy (number/high power field) [HPF] NRG Bacteria detection in urine sediment [...] Status Pt. Type Provider Facility Loc./Unit Complaint [id number] 06/14/2014 00:00:00 06/14/2014 23:59:59 [facility] Outpatient [id number] 04/12/2014 08:48:00 04/12/2014 23:59:59 [facility] Outpatient NOEL MEYERS APRN [id number] 04/06/2014 12:40:00 04/06/2014 23:59:59 [facility] GEOFF REED APRN [id number] 11/02/2013 10:05:00 11/02/2013 23:59:59 [facility] Outpatient NOEL MEYERS APRN Greta [id number] 10/26/2013 10:11:00 10/26/2013 23:59:59 CLS Outpatient SILVER SAVAGE MD [id number] 09/30/2013 10:01:00 09/30/2013 23:59:59 [facility] Outpatient NOEL MEYERS APRN Greta [id number] 09/20/2013 13:46:00 09/20/2013 23:59:59 [facility] Outpatient GEOFF REED APRN [id number] 01/08/2019 09:30:00 01/08/2019 23:59:59 [facility] Outpatient DAVID CHOI [facility] [id number] 11/20/2017 08:20:00 Document Registration [id number] 01/09/2019 16:45:00 01/09/2019 17:10:00 DIS Emergency CELIA HUGHES APRN [facility] ER L ANKLE INJ [id number] 10/09/2018 16:31:00 10/09/2018 18:16:00 DIS Emergency NELIDAERIKA [facility] ER SEIZURE [id number] 04/03/2018 09:45:00 04/03/2018 23:59:59 CLS Preadmit DAVID CHOI APRN [facility] RAD HX OF SEIZURES [id number] 03/29/2018 03:45:00 03/29/2018 04:53:00 DIS Emergency SHAQ OLSEN DO [facility] ER POSS SEIZURE [id number] 11/14/2017 18:16:00 11/14/2017 20:55:00 DIS Emergency HAMMAD ROACH MD [facility] ER SEIZURE [id number] 10/18/2017 02:11:00 10/18/2017 02:56:00 DIS Emergency HAMMAD ROACH MD [facility] ER SORE THROAT,SWOLLEN THROAT-BLOODY [id number] 2017 00:35:00 2017 01:47:00 DIS Emergency SHAQ OLSEN DO [facility] ER LOWER BACK PAIN,BLOOD IN URINE [id number] 08/08/2017 20:19:00 08/08/2017 22:41:00 DIS Emergency BASILIO CANALES [facility] ER STREP THROAT [id number] 03/12/2017 16:06:00 03/12/2017 17:14:00 DIS Emergency BASILIO CANALES [facility] ER HURTS TO COUGH,THROAT HURTS [id number] 12/21/2016 12:24:00 12/21/2016 13:23:00 DIS Emergency BASILIO CANALES [facility] ER POSS STREP [id number] 10/25/2016 07:21:00 10/25/2016 07:50:00 DIS Emergency NEPTALI HOLLINS, KAMI Milton [facility] ER LEFT EYE REDNESS [id number] 07/04/2016 17:10:00 07/04/2016 17:25:00 DIS Emergency JARAD HOLLINS, JUNO Guardado [facility] ER SORE THROAT [id number] 05/10/2016 20:46:00 05/10/2016 21:11:00 DIS Emergency CELIA HUGHES APRN [facility] ER L EAR PAIN [id number] 04/30/2016 18:19:00 04/30/2016 21:20:00 DIS Emergency CELIA HUGHES APRN [facility] ER MIGRAINE PAIN/VOMITING [id number] 02/16/2016 10:47:00 02/16/2016 13:10:00 DIS Emergency CELIA HUGHES APRN [facility] ER MIGRAINE/NAUSEA [id number] 12/20/2015 20:32:00 12/20/2015 21:31:00 DIS Emergency JUAN LUIS HOLLINS, STEF Ortega [facility] ER CP [id number] 12/16/2015 12:16:00 12/16/2015 14:54:00 DIS Emergency BASILIO CANALES [facility] ER DIFF BREATHING/CONGESTION [id number] 12/04/2015 10:21:00 12/04/2015 11:02:00 DIS Emergency CELIA HUGHES APRN [facility] ER POSS ABSCESS ON LEFT BREAST [id number] 11/26/2015 15:28:00 11/26/2015 23:59:59 CLS Emergency BASILIO CANALES [facility] ER HEADACHES/DIZZINESS [id number] 10/14/2015 16:39:00 10/14/2015 19:03:00 DIS Emergency SHAQ OLSEN DO [facility] ER L KIDNEY/R SHOULDER PAIN [id number] 09/03/2015 08:41:00 09/03/2015 11:36:00 DIS Emergency RONDA CHASE MD [facility] ER SORE THROAT,SOA,EAR PAIN [id number] 06/24/2015 10:25:00 06/24/2015 11:11:00 DIS Emergency CELIA HUGHES APRN [facility] ER RIGHT EAR PAIN/VOMITING [id number] 06/21/2015 14:16:00 06/21/2015 18:36:00 DIS Emergency ANTONIA BARNES DO [facility] ER LEFT EAR PAIN/BLEEDING [id number] 05/16/2015 19:22:00 05/16/2015 21:53:00 DIS Emergency SHAQ OLSEN DO [facility] ER HEADACHE [id number] 03/24/2015 09:06:00 03/24/2015 11:07:00 DIS Emergency CELIA HUGHES APRN [facility] ER SORE THROAT HEADACHE [id number] 09/29/2014 22:40:00 09/29/2014 23:47:00 DIS Emergency DELISA CARDONA MD [facility] ER VOMITING;HEADACHE [id number] 07/24/2014 11:13:00 07/24/2014 12:34:00 DIS Emergency BASILIO CANALES [facility] ER SORE THROAT [id number] 04/04/2014 10:03:00 04/04/2014 12:06:00 DIS Emergency SHAQ OLSEN DO [facility] ER MIGRAINE/VOMITING [id number] 02/14/2014 10:03:00 02/14/2014 11:47:00 DIS Emergency DELISA CARDONA MD [facility] ER MIGRAINE [id number] 02/12/2014 14:10:00 02/12/2014 15:08:00 DIS Emergency BRENDAN HOLLINS, DELISA Iglesias [facility] ER MIGRAINE [id number] 02/01/2014 08:50:00 02/01/2014 10:12:00 DIS Emergency JUAN LUIS HOLLINS, STEF Ortega [facility] ER MIGRAINE [id number] 11/04/2013 17:16:00 11/04/2013 21:14:00 DIS Emergency BASILIO CANALES [facility] ER CHEST PAIN,SOA [id number] 05/26/2018 11:50:00 Document Registration [id number] 03/24/2015 09:06:00 Document Registration [id number] 03/24/2015 09:06:00 Document Registration [id number] 07/11/2012 06:31:00 Document Registration
== END 2019-03-24 00:55 | disposition home or self-care (01) ==
LOC: EDUNIT# 20:37 → ER 20:38
DX: G40.909 Epilepsy, unspecified, not intractable, without status epilepticus (principal); N39.0 Urinary tract infection, site not specified; E78.00 Pure hypercholesterolemia, unspecified; I10 Essential (primary) hypertension; G43.909 Migraine, unspecified, not intractable, without status migrainosus; F41.9 Anxiety disorder, unspecified; F32.9 Major depressive disorder, single episode, unspecified; Z88.0 Allergy status to penicillin; Z88.2 Allergy status to sulfonamides; Z88.8 Allergy status to other drugs, medicaments and biological substances; Z87.891 Personal history of nicotine dependence; Z90.5 Acquired absence of kidney; Z90.89 Acquired absence of other organs
CPT/HCPCS: 36415; 80053; 80306; 80320; 81000; 82550; 82553; 83735; 84443; 85025; 87088; 93041; 96360; 96361

== ENCOUNTER 2019-04-06 10:57 | Emergency (ER) | payer SELFPAY ==
[~2019-04-06] VITALS: Ht 166.4 cm; Wt 120.2 kg
[2019-04-06] MEDS ORDERED: ONDANSETRON 4 MG (ZOFRAN) ORAL DISSOLVE TAB PO ONE (11:00)
--- NOTE | 2019-04-06 11:04 | ED Neurological Problem ---
General Chief Complaint: Neurological Problems Stated Complaint: SEIZURE Source: patient, EMS Exam Limitations: no limitations History of Present Illness Date Seen by Provider: Apr 06, 2019 Time Seen by Provider: 11:02 Initial Comments To ER per EMS from home with reports of an unwitnessed seizure. This happened earlier this morning sitting on the couch watching [employer] kids with her dog. She has a history of epilepsy and takes Keppra. She did hit her head. She is nauseous now. Timing/Duration: 1 hour Associated Symptoms: nausea/vomiting Allergies and Home Medications Allergies Coded Allergies: amoxicillin (Verified Allergy, Unknown, 04/06/19) carbamazepine (Verified Allergy, Unknown, 04/06/19) Penicillins (Unverified Adverse Reaction, Intermediate, 04/06/19) Sulfa (Sulfonamide Antibiotics) (Unverified Adverse Reaction, Intermediate, 04/06/19) Home Medications Fluoxetine HCl 20 Mg Capsule, 20 MG PO DAILY, (Reported) Hydroxyzine HCl 25 Mg Tablet, 25 MG PO Q8H PRN for ANXIETY, (Reported) Levetiracetam 500 Mg Tablet, 500 MG PO BID Prescribed by: ERIKA KRAUSE on 10/09/18 1811 Patient Home Medication List Home Medication List Reviewed: Yes Review of Systems Review of Systems Constitutional: see HPI Eyes: No Symptoms Reported Ears, Nose, Mouth, Throat: no symptoms reported Respiratory: no symptoms reported Cardiovascular: no symptoms reported Genitourinary: no symptoms reported Musculoskeletal: no symptoms reported Skin: no symptoms reported Psychiatric/Neurological: See HPI Endocrine: No Symptoms Reported Past Qbobrli-Lcjvwu-Hhleur Hx Patient Social History Type Used: Cigarettes 2nd Hand Smoke Exposure: No Recent Hopitalizations: No Immunizations Up To Date Tetanus Booster (TDap): Unknown PED Vaccines UTD: Yes Date of Pneumonia Vaccine: Apr 19, 2012 Date of Influenza Vaccine: Apr 19, 2012 Seasonal Allergies Seasonal Allergies: Yes Past Medical History Surgeries: Yes Adenoidectomy, Ear Surgery, Nephrectomy, Renal, Tonsillectomy Respiratory: No Cardiac: Yes High Cholesterol, Hypertension Neurological: Yes Headaches /Migraines, Seizure Disorder Reproductive Disorders: No Genitourinary: Yes Bladder Infection Gastrointestinal: No Musculoskeletal: No Endocrine: No HEENT: Yes (S/P BMT'S; 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 ) Chronic Ear Infection Hearing Impairment: Hard of Hearing Cancer: No Psychosocial: Yes Anxiety, Depression Integumentary: No Blood Disorders: No Family Medical History No Pertinent Family Hx Physical Exam Vital Signs Vital Signs - First Documented 04/06/19 10:57 Temp 99.3 Pulse 93 Resp 18 B/P (MAP) 155/90 (111) Pulse Ox 95 O2 Delivery Room Air Capillary Refill : Height, Weight, BMI Height: 5'5.00" Weight: 265lbs. oz. 120.312063rq; 41.43 BMI Method:Estimated General Appearance: WD/WN, no apparent distress HEENT: PERRL/EOMI, normal ENT inspection, TMs normal Neck: non-tender, full range of motion Respiratory: no respiratory distress, no accessory muscle use Gastrointestinal: normal bowel sounds, non tender, soft Neurologic/Psychiatric: alert, normal mood/affect, oriented x 3, other (she is not postictal) Crainal Nerves: normal hearing, normal speech Progress/Results/Core Measures Results/Orders My Orders Orders - CELIA HUGHES APRN Ondansetron Oral Dissolve Tab (Zofran (04/06/19 11:00) Ct Head Wo (04/06/19 11:00) Medications Given in ED Current Medications Medications Dose Ordered Sig/Kayode Route Start Time Stop Time Status Last Admin Dose Admin Ondansetron HCl 8 mg ONCE ONCE PO 04/06/19 11:00 04/06/19 11:02 DC 04/06/19 11:06 8 MG Vital Signs/I&O 04/06/19 04/06/19 10:57 11:48 Temp 99.3 98.5 Pulse 93 87 Resp 18 16 B/P (MAP) 155/90 (111) 156/91 (112) Pulse Ox 95 97 O2 Delivery Room Air Room Air Departure Impression Primary Impression: Hx of seizure disorder Disposition: 01 HOME, SELF-CARE Condition: Stable Departure-Patient Inst. Decision time for Depature: 11:04 Referrals: [facility]/MIGUELINA (PCP) Primary Care Physician DAVID CHOI APRN (Family) Primary Care Physician Patient Instructions: Seizures, Adult (DC) CELIA HUGHES APRN Apr 06, 2019 11:04
[2019-04-06] MEDS ORDERED: HYDR-700 PO (11:17)
[2019-04-06] MEDS ORDERED: FLUO20CA25 PO (11:17)
--- NOTE | 2019-04-06 11:25 | NUR ---
PATIENT BACK TO ROOM FROM CT.
--- NOTE | 2019-04-06 11:35 | Diagnostic Imaging Report ---
PROCEDURE: CT head without contrast. TECHNIQUE: Multiple contiguous axial images were obtained through the brain without the use of intravenous contrast. Auto Exposure Controls were utilized during the CT exam to meet ALARA standards for radiation dose reduction. DATE: April 06, 2019. COMPARISON: CT head May 26, 2018. INDICATION: 23-year-old female, unwitnessed seizure. Hit back of head. History of seizures. FINDINGS: There is a soft tissue prominence to the right of midline posteriorly at the occipital region on axial image 8 measuring 6 mm in size unchanged since May 26, 2018. This is not specific. There is no identified skull fracture. There is a small focal area of low attenuation in the right basal ganglia on axial image 11 which is unchanged since at least January 2014. The ventricles and cerebral spinal fluid spaces are of normal size and configuration for the patient's age. There is no mass effect or midline shift. There is no acute intracranial hemorrhage. There is no abnormal extra-axial fluid collection. The visualized portions of the paranasal sinuses, mastoid air cells and middle ears are well aerated. IMPRESSION: 1. No identified interval acute intracranial abnormality. 2. Small low-attenuation focus in the right basal ganglia stable since at least January 2014. 3. Redemonstrated soft tissue attenuation focus to the right of midline within the occipital soft tissues unchanged since comparison imaging. Dictated by: Dictated on workstation # [id number]
[2019-04-06 11:48] VITALS: BP 156/91
== END 2019-04-06 11:50 | disposition home or self-care (01) ==
LOC: EDUNIT# 10:57 → ER 10:58
DX: G40.909 Epilepsy, unspecified, not intractable, without status epilepticus (principal); E78.00 Pure hypercholesterolemia, unspecified; I10 Essential (primary) hypertension; G43.909 Migraine, unspecified, not intractable, without status migrainosus; F41.9 Anxiety disorder, unspecified; F32.9 Major depressive disorder, single episode, unspecified; Z88.1 Allergy status to other antibiotic agents; Z88.0 Allergy status to penicillin; Z87.448 Personal history of other diseases of urinary system; Z88.2 Allergy status to sulfonamides; Z88.8 Allergy status to other drugs, medicaments and biological substances; Z90.89 Acquired absence of other organs; Z98.890 Other specified postprocedural states; Z90.6 Acquired absence of other parts of urinary tract
CPT/HCPCS: 70450

== ENCOUNTER 2019-04-27 23:33 | Emergency (ER) | payer SELFPAY ==
[~2019-04-27] VITALS: Ht 166.4 cm; Wt 120.2 kg
[~2019-04-27 23:33] MED LIST changes: +FLUO20CA25 PO; +HYDR-700 PO
--- OUTSIDE RECORDS SUMMARY | 2019-04-27 23:41 | XMS REPORT ---
Author Author Migration, Doctor Organization [facility] Address Unknown Phone Unavailable Care Team Providers Care Rcis Name Role Phone Migration, Doctor Unavailable Unavailable PROBLEMS Type Condition ICD9-CM Code BGE79-PZ Code Onset Dates Condition Status SNOMED Code Problem Mixed hyperlipidemia E78.2 Active 717704873 Problem Morbid obesity E66.01 Active 492798732 Problem Dysthymia F34.1 Active 75384250 Problem Depression with anxiety F41.8 Active 36735689 Problem Acne L70.9 Active 27002636 Problem Non compliance w medication regimen Z91.14 Active 192692606 Problem Acute seasonal allergic rhinitis, unspecified trigger J30.2 Active 918845256 Problem Insulin resistance E88.81 Active 529684407 ALLERGIES Substance Reaction Event Type Date Status Keppra 500 Mg Tablet sore throat Non Drug Allergy Jan, Active Sulfa(sulfonamide Antibiotics) Unknown Non Drug Allergy Jan, Active Penicillins Unknown Non Drug Allergy Jan, Active Tegretol Unknown Drug Allergy Jan, Active ENCOUNTERS Encounter Location Date Diagnosis [facility] [id number] [place] [address] Apr, [facility] [id number] [place] [address] Mar, [facility] [id number] [place] [address] Mar, [facility] [id number] [place] [address] Mar, Seizure R56.9 [facility] [id number] [place] [address] Mar, [facility] [id number] [place] [address] February, Dysthymia F34.1 and Seizure R56.9 [facility] [id number] [place] [address] Dec, Non-recurrent acute suppurative otitis media of left ear without spontaneous rupture of tympanic membrane H66.002 and Morbid obesity E66.01 [facility] [id number] [place] [address] Nov, [facility] [address] [address] Nov, [place] [address] [address] Oct, Dysthymia F34.1 ; Seizure R56.9 ; Dermatitis L30.9 and BMI 45.0-49.9, adult Z68.42 [place] [address] [address] Sep, [place] [address] [address] May, Depression with anxiety F41.8 [place] [address] [address] May, History of epilepsy Z86.69 [place] [address] [address] May, History of seizures Z87.898 ; Non compliance w medication regimen Z91.14 and Dysthymia F34.1 [place] [id number] [place] [address] Mar, History of seizures Z87.898 ; Frequent headaches R51 ; Non compliance w medication regimen Z91.14 and BMI 45.0-49.9, adult Z68.42 [place] [address] [address] Dec, Insulin resistance E88.81 ; BMI 40.0-44.9, adult Z68.41 ; Frequent headaches R51 and Non compliance w medication regimen Z91.14 [place] [id number] [place] [address] Nov, [place] [address] [address] Nov, Insulin resistance E88.81 [place] [address] [address] Nov, [place] [address] [address] Nov, Hospital discharge follow-up Z09 ; BMI 40.0-44.9, adult Z68.41 and Metabolic syndrome E88.81 [place] [address] [address] Oct, Hospital discharge follow-up Z09 ; BMI 40.0-44.9, adult Z68.41 ; Morbid obesity E66.01 ; Metabolic syndrome E88.81 ; Non compliance w medication regimen Z91.14 and Seizure R56.9 [facility] [place] [id number] [place] [address] Sep, Sore throat J02.9 ; Right acute serous otitis media, recurrence not specified H65.01 and Acute seasonal allergic rhinitis, unspecified trigger J30.2 [facility] [address] [place] [id number] [place] [address] Jul, Sore throat J02.9 and Pharyngitis due to other organism J02.8 [facility] [place] [id number] [place] [address] February, Sore throat J02.9 ; Acute middle ear effusion, bilateral H65.193 and Strep pharyngitis J02.0 [place] [id number] [place] [address] Aug, [place] [address] [address] May, Acute otitis externa of both ears, unspecified type H60.503 ; Morbid obesity E66.01 and Non compliance w medication regimen Z91.14 [place] [id number] February, Morbid obesity E66.01 ; Anxiety associated with depression F41.8 ; Episodic tension-type headache, not intractable G44.219 and High blood pressure (not hypertension) R03.0 [place] [id number] Jan, Morbid obesity E66.01 ; History of epilepsy Z86.69 ; Metabolic syndrome E88.81 ; Anxiety associated with depression F41.8 and Hyperlipidemia E78.[address] [address] Dec, Morbid obesity E66.01 ; Acne L70.9 ; Family history of diabetes mellitus Z83.3 ; Anxiety associated with depression F41.8 ; Insulin resistance E88.81 ; Metabolic syndrome E88.81 and Hyperlipidemia E78.5 [place] [id number] [place] [address] Dec, [address] [address] Nov, Routine health maintenance Z00.00 ; Morbid obesity E66.01 ; Acne L70.9 and Family history of diabetes mellitus Z83.3 [place] [id number] [place] [address] Nov, Routine health maintenance Z00.00 ; Morbid obesity E66.01 ; Morbid obesity due to excess calories E66.01 ; History of epilepsy Z86.69 ; Acne L70.9 ; Family history of diabetes mellitus Z83.3 ; Family history of cancer Z80.9 ; Anxiety associated with depression F41.8 and 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 [place] [id number] [place] [address] Jun, Infective otitis externa 380.10 [place] [id number] [place] [address] May, Sore throat 462 and Sinusitis 473.9 [facility] [address] [facility] [id number] [place] [address] 11 Mar, 2015 Sinusitis, acute 461.9 [facility] [address] [place] [address] [id number] [place] [address] 14 Jan, 2015 [facility] [address] [facility] [id number] [place] [address] Jan, [facility] [address] [facility] [id number] [place] [address] Aug, [facility] [address] [facility] [id number] [place] [address] Aug, [facility] [address] [id number] [place] [address] May, [facility] [address] [facility] [id number] [place] [address] May, [facility] [id number] [place] [address] Mar, [facility] [address] [facility] [id number] [place] [address] Mar, [facility] [id number] [address] Mar, [facility] [place] [facility] [address] [facility] [id number] [place] [address] Mar, [facility] [place] [facility] [address] [facility] [id number] [place] [address] Mar, [facility] [place] [facility] [address] [facility] [id number] [address] Mar, [facility] [place] [facility] [id number] [place] [address] Mar, [facility] [place] [facility] [address] [facility] [id number] [address] 18 Mar, 2014 [facility] [address] [facility] [id number] [address] 15 Oct, 2013 [facility] [address] [facility] [id number] [place] [address] Oct, [facility] [address] [facility] [id number] [place] [address] Oct, [facility] [address] [facility] [id number] [place] [address] Oct, [facility] [address] [facility] [id number] [place] [address] Oct, [facility] [id number] [address] Oct, [facility] [address] [address] Oct, [facility] [id number] [address] Sep, [facility] [id number] [address] Sep, [facility] [id number] [address] Sep, [facility] [id number] [address] Sep, [facility] [id number] [address] Sep, [facility] [id number] [address] Jun, [facility] [id number] [address] Jun, IMMUNIZATIONS No Known Immunizations SOCIAL HISTORY Never Assessed REASON FOR VISIT EMR-[facility] PLAN OF CARE VITAL SIGNS MEDICATIONS Medication Instructions Dosage Frequency Start Date End Date Duration Status Pristiq 100 mg 1 Tablet by Oral route 1 daily Mar, Active trazodone 150 mg take 2 tablet by Oral route 1 time per day after meals Oct, Active Ibuprofen 200 mg take 2 tablets by Oral route every 6 hours as needed with food PRN Mar, Active Abilify 2 mg 1 Tablet by Oral route 1 daily Mar, Active Bentyl 10 mg 1 Capsule by Oral route 3 times per day PRN for upset stomach Mar, Active ketorolac 10 mg take 1 tablet by Oral route as needed every 6 hours PRN Mar, Active Cipro HC 0.2-1 % 3 drop by Otic route 2 times per day for 7 day(s) Oct, Active RESULTS No Results PROCEDURES No Known procedures INSTRUCTIONS MEDICATIONS ADMINISTERED No Known Medications MEDICAL (GENERAL) HISTORY Type Description Date Medical History Depression Medical History Epilepsy Medical History [facility] in Left ear Surgical History 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
--- OUTSIDE RECORDS SUMMARY | 2019-04-27 23:41 | XMS REPORT ---
Author Author JAMES RAMOS Organization [facility] Address [address] [place] [address] Care Team Providers Care Pharmaceutical Laboratory Technician Name Role Phone JAMES RAMOS Unavailable PROBLEMS Type Condition ICD9-CM Code IKT48-SI Code Onset Dates Condition Status SNOMED Code Problem Mixed hyperlipidemia E78.2 Active 198561205 Problem Morbid obesity E66.01 Active 227993107 Problem Dysthymia F34.1 Active 52194549 Problem Depression with anxiety F41.8 Active 67047536 Problem Acne L70.9 Active 47639017 Problem Non compliance w medication regimen Z91.14 Active 027582682 Problem Acute seasonal allergic rhinitis, unspecified trigger J30.2 Active 109962283 Problem Insulin resistance E88.81 Active 153963099 ALLERGIES No Information ENCOUNTERS Encounter Location Date Diagnosis [facility] [id number] [place] [address] Apr, [facility] [id number] [place] [address] Apr, [facility] [id number] [place] [address] Mar, [facility] [id number] [place] [address] Mar, [facility] [id number] [place] [address] Mar, Seizure R56.9 [facility] [address] [address] Mar, [facility] [id number] [place] [address] February, Dysthymia F34.1 and Seizure R56.9 [facility] [id number] [place] [address] Dec, Non-recurrent acute suppurative otitis media of left ear without spontaneous rupture of tympanic membrane H66.002 and Morbid obesity E66.01 [facility] [id number] [place] [address] 17 Nov, 2018 [facility] [address] [address] Nov, [place] [address] [address] Oct, Dysthymia F34.1 ; Seizure R56.9 ; Dermatitis L30.9 and BMI 45.0-49.9, adult Z68.42 [place] [address] [address] Sep, [place] [address] [address] May, Depression with anxiety F41.[address] [address] May, History of epilepsy Z86.69 [place] [address] [address] May, History of seizures Z87.898 ; Non compliance w medication regimen Z91.14 and Dysthymia F34.1 [place] [address] [address] Mar, History of seizures Z87.898 ; Frequent headaches R51 ; Non compliance w medication regimen Z91.14 and BMI 45.0-49.9, adult Z68.42 [place] [address] [address] Dec, Insulin resistance E88.81 ; BMI 40.0-44.9, adult Z68.41 ; Frequent headaches R51 and Non compliance w medication regimen Z91.14 [place] [id number] [place] [address] Nov, [place] [address] [address] Nov, Insulin resistance E88.81 [place] [address] [address] Nov, [place] [address] [address] Nov, Hospital discharge follow-up Z09 ; BMI 40.0-44.9, adult Z68.41 and Metabolic syndrome E88.81 [place] [address] [address] Oct, Hospital discharge follow-up Z09 ; BMI 40.0-44.9, adult Z68.41 ; Morbid obesity E66.01 ; Metabolic syndrome E88.81 ; Non compliance w medication regimen Z91.14 and Seizure R56.9 [facility] [address] [address] Sep, Sore throat J02.9 ; Right acute serous otitis media, recurrence not specified H65.01 and Acute seasonal allergic rhinitis, unspecified trigger J30.2 [facility] [address] [address] Jul, Sore throat J02.9 and Pharyngitis due to other organism J02.8 [facility] [place] [id number] [place] [address] February, Sore throat J02.9 ; Acute middle ear effusion, bilateral H65.193 and Strep pharyngitis J02.0 [place] [id number] [place] [address] Aug, [place] [address] [address] 25 Aug, 2016 Acute otitis externa of both ears, unspecified type H60.503 ; Morbid obesity E66.01 and Non compliance w medication regimen Z91.14 [place] [id number] February, Morbid obesity E66.01 ; Anxiety associated with depression F41.8 ; Episodic tension-type headache, not intractable G44.219 and High blood pressure (not hypertension) R03.0 [place] [id number] Jan, Morbid obesity E66.01 ; History of epilepsy Z86.69 ; Metabolic syndrome E88.81 ; Anxiety associated with depression F41.8 and Hyperlipidemia E78.[address] [address] Dec, Morbid obesity E66.01 ; Acne L70.9 ; Family history of diabetes mellitus Z83.3 ; Anxiety associated with depression F41.8 ; Insulin resistance E88.81 ; Metabolic syndrome E88.81 and Hyperlipidemia E78.[address] [address] Dec, [address] [address] Nov, Routine health maintenance Z00.00 ; Morbid obesity E66.01 ; Acne L70.9 and Family history of diabetes mellitus Z83.[address] [address] Nov, Routine health maintenance Z00.00 ; Morbid obesity E66.01 ; Morbid obesity due to excess calories E66.01 ; History of epilepsy Z86.69 ; Acne L70.9 ; Family history of diabetes mellitus Z83.3 ; Family history of cancer Z80.9 ; Anxiety associated with depression F41.8 and 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 [address] Jun, Infective otitis externa 380.[address] [id number] [place] [address] May, Sore throat 462 and Sinusitis 473.9 [facility] [address] [id number] [place] [address] 11 Mar, 2015 Sinusitis, acute 461.9 [facility] [address] [facility] [address] [id number] [place] [address] 14 Jan, 2015 [facility] [address] [id number] [place] [address] Jan, [facility] [address] [id number] [place] [address] Aug, [facility] [address] [id number] [place] [address] Aug, [facility] [address] [place] [address] May, [facility] [address] [id number] [place] [address] May, [facility] [address] [id number] [place] [address] Mar, [facility] [id number] [place] [address] Mar, [facility] [address] [id number] [place] [address] Mar, [facility] [address] [id number] [place] [address] Mar, [facility] [address] [id number] [place] [address] Mar, [facility] [address] [facility] [address] [id number] [place] [address] Mar, [facility] [id number] [place] [address] Mar, [facility] [place] [facility] [address] [facility] [address] [id number] [address] 18 Mar, 2014 [facility] [address] [facility] [address] [id number] [address] 15 Oct, 2013 [facility] [address] [facility] [address] [id number] [address] 14 Oct, 2013 [facility] [id number] [address] 14 Oct, 2013 [facility] [address] [facility] [address] [id number] [place] [address] Oct, [facility] [id number] [place] [address] Oct, [facility] [address] [id number] [address] Oct, [facility] [id number] [address] Oct, [facility] [id number] [address] Sep, [facility] [id number] [address] Sep, [facility] [id number] [address] Sep, [facility] [id number] [address] Sep, [facility] [address] [facility] [address] [id number] [address] Sep, [facility] [address] [id number] [address] Jun, [facility] [address] [id number] [address] 08 Jun, 2012 IMMUNIZATIONS No Known Immunizations SOCIAL HISTORY Never Assessed REASON FOR VISIT PLAN OF CARE VITAL SIGNS Height 65 in 2012-06-27 Weight 207.12 lbs 2012-06-27 Temperature 98.3 degrees Fahrenheit 2012-06-27 Heart Rate 72 bpm 2012-06-27 Respiratory Rate 18 2012-06-27 Blood pressure systolic 138 mmHg 2012-06-27 Blood pressure diastolic 78 mmHg 2012-06-27 MEDICATIONS Unknown Medications RESULTS No Results PROCEDURES No Known procedures INSTRUCTIONS MEDICATIONS ADMINISTERED No Known Medications MEDICAL (GENERAL) HISTORY Type Description Date Medical History Depression Medical History Epilepsy 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
--- OUTSIDE RECORDS SUMMARY | 2019-04-27 23:49 | XMS REPORT | Continuity of Care Document ---
Author Organization Unknown Address Unknown Allergies Active Description Code Type Severity Reaction Onset Reported/Identified Relationship to Patient Clinical Status Yes Penicillins Drug Allergy N/A N/A 06/27/2012 Yes Sulfa(Sulfonamide Antibiotics) Drug Allergy N/A N/A 06/27/2012 Yes Tegretol Drug Allergy N/A N/A 06/27/2012 Yes Keppra 500 mg tablet Drug Allergy N/A N/A 07/06/2012 Yes Penicillins [id number] Drug Allergy Moderate N/A 04/06/2019 Yes Sulfa (Sulfonamide Antibiotics) [id number] Drug Allergy Moderate N/A 04/06/2019 Yes amoxicillin [id number] Drug Allergy Unknown N/A 04/06/2019 Yes carbamazepine [id number] Drug Allergy Unknown N/A 04/06/2019 Medications There is no data. Problems Date [...] NOEL N V67.9 UNSPECIFIED FOLLOW-UP EXAMINATION 09/30/2013 SHANKAR REED APRNIA R V58.69 LONG-TERM (CURRENT) USE OF OTHER [...] INFECTIONS OF UNSPECIFIED SITE 10/26/2013 GARCIA CASHERO DRILLING FIELD OPERATOR, NOEL N 380.4 IMPACTED CERUMEN 10/26/2013 GARCIA CASHERO DRILLING FIELD OPERATOR, NOEL N 465.9 ACUTE UPPER RESPIRATORY INFECTIONS OF UNSPECIFIED SITE 10/26/2013 REED DRILLING FIELD OPERATOR, GEOFF R 380.4 IMPACTED CERUMEN 10/26/2013 REED DRILLING FIELD OPERATOR, GEOFF R 465.9 ACUTE UPPER RESPIRATORY INFECTIONS OF UNSPECIFIED SITE 10/26/2013 GARCIA CASHERO DRILLING FIELD OPERATOR, NOEL N 380.4 IMPACTED CERUMEN 10/26/2013 GARCIA CASHERO DRILLING FIELD OPERATOR, NOEL N 465.9 ACUTE UPPER RESPIRATORY INFECTIONS OF UNSPECIFIED SITE 10/26/2013 380.4 IMPACTED CERUMEN 10/26/2013 465.9 ACUTE UPPER RESPIRATORY INFECTIONS OF UNSPECIFIED SITE 11/01/2013 GARCIA CASHERO DRILLING FIELD OPERATOR, NOEL N 278.00 OBESITY 11/01/2013 GARCIA CASHERO DRILLING FIELD OPERATOR, NOEL N 626.0 AMENORRHEA 11/01/2013 BRIANNA LONGON, GEOFF R 278.00 OBESITY 11/01/2013 REED DRILLING FIELD OPERATOR, GEOFF R 626.0 AMENORRHEA 11/01/2013 GARCIA CASHERO DRILLING FIELD OPERATOR, NOEL N 278.00 OBESITY 11/01/2013 GARCIA CASHERO DRILLING FIELD OPERATOR, NOEL N 626.0 AMENORRHEA 11/01/2013 278.00 OBESITY 11/01/2013 626.0 AMENORRHEA 11/02/2013 GARCIA CASHERO DRILLING FIELD OPERATOR, NOEL N 784.49 OTHER VOICE AND RESONANCE DISORDERS 11/02/2013 GARCIA CASHERO DRILLING FIELD OPERATOR, NOEL N 786.2 COUGH 11/02/2013 BRIANNA LONGON GEOFF R 784.49 OTHER VOICE AND RESONANCE DISORDERS 11/02/2013 BRIANNA LONGON GEOFF R 786.2 COUGH 11/02/2013 GARCIA CASHERO DRILLING FIELD OPERATOR, NOEL N 784.49 OTHER VOICE AND RESONANCE DISORDERS 11/02/2013 GARCIA CASHERO DRILLING FIELD OPERATOR, NOEL N 786.2 COUGH 11/02/2013 784.49 OTHER [...] OLSEN DO Ot 784.0 HEADACHE 04/06/2014 REED DRILLING FIELD OPERATOR, GEOFF R 345.80 OTHER FORMS OF EPILEPSY AND RECURRENT SEIZURES WITHOUT MENTION OF INTRACTABLE EPILEPSY 04/06/2014 REED DRILLING FIELD OPERATOR, GEOFF R 368.8 OTHER SPECIFIED VISUAL DISTURBANCES 04/06/2014 REED DRILLING FIELD OPERATOR, GEOFF R 784.0 HEADACHE 04/06/2014 REED DRILLING FIELD OPERATOR, GEOFF R 787.02 NAUSEA ALONE 04/06/2014 REED DRILLING FIELD OPERATOR, GEOFF R 787.03 VOMITING ALONE 04/06/2014 GARCIA CASHERO DRILLING FIELD OPERATOR, NOEL N 345.80 OTHER FORMS OF EPILEPSY AND RECURRENT SEIZURES WITHOUT MENTION OF INTRACTABLE EPILEPSY 04/06/2014 GARCIA CASHERO DRILLING FIELD OPERATOR, NOEL N 368.8 OTHER SPECIFIED VISUAL DISTURBANCES 04/06/2014 GARCIA CASHERO DRILLING FIELD OPERATOR, NOEL N 784.0 HEADACHE 04/06/2014 AGRCIA CASHERO DRILLING FIELD OPERATOR, NOEL N 787.02 NAUSEA ALONE 04/06/2014 GARCIA CASHERO DRILLING FIELD OPERATOR, NOEL N 787.03 VOMITING ALONE 04/06/2014 345.80 OTHER FORMS OF EPILEPSY AND RECURRENT SEIZURES WITHOUT MENTION OF INTRACTABLE EPILEPSY 04/06/2014 368.8 OTHER SPECIFIED VISUAL DISTURBANCES 04/06/2014 784.0 HEADACHE 04/06/2014 787.02 NAUSEA ALONE 04/06/2014 787.03 VOMITING ALONE 07/24/2014 BASILIO CANALES Ot 462 ACUTE PHARYNGITIS 07/24/2014 BASILIO CANALES Ot 464.00 ACUTE LARYNGITIS W/O OBSTRUCTION 07/24/2014 BASILIO CANALES Ot 466.0 ACUTE BRONCHITIS 09/29/2014 DELISA CARDONA MD Ot 784.0 HEADACHE 09/29/2014 DELISA CARDONA MD Ot 787.03 VOMITING ALONE 03/24/2015 CELIA HUGHES DRILLING FIELD OPERATOR Ot 462 ACUTE PHARYNGITIS 03/24/2015 CELIA HUGHES DRILLING FIELD OPERATOR Ot 466.0 ACUTE BRONCHITIS 05/16/2015 RAÚL PADMINI PRICEA K Ot 784.0 HEADACHE 06/21/2015 ANTONIA BARNES [...] CHASE MD Ot R05 COUGH 10/14/2015 RAÚL PRICE SHAQ K Ot N39.0 URINARY TRACT INFECTION, SITE NOT SPECIF 10/14/2015 PADMINI OLSEN DOA K Ot Z90.5 ACQUIRED ABSENCE OF KIDNEY 11/26/2015 BASILIO CANALES Ot G43.909 MIGRAINE, UNSP, NOT INTRACTABLE, WITHOUT 11/26/2015 BASILIO CANALES Ot N39.0 URINARY TRACT INFECTION, SITE NOT SPECIF 12/04/2015 CELIA HUGHES DRILLING FIELD OPERATOR Ot N61 INFLAMMATORY DISORDERS OF BREAST 12/16/2015 [...] LUIS HOLLINS, STEF Ortega Ot Z79.899 OTHER MONEY POSITION OFFICER (CURRENT) DRUG THERAPY 02/16/2016 CELIA HUGHES DRILLING FIELD OPERATOR Ot N39.0 URINARY TRACT INFECTION, SITE NOT SPECIF 02/16/2016 CELIA HUGHES DRILLING FIELD OPERATOR Ot R51 HEADACHE 02/19/2016 CELIA HUGHES DRILLING FIELD OPERATOR Ot N39.0 URINARY TRACT INFECTION, SITE NOT SPECIF 02/19/2016 CELIA HUGHES DRILLING FIELD OPERATOR Ot R51 HEADACHE 04/30/2016 CELIA HUGHES DRILLING FIELD OPERATOR Ot R51 HEADACHE 05/01/2016 CELIA HUGHES DRILLING FIELD OPERATOR Ot R51 HEADACHE 05/10/2016 CELIA HUGHES DRILLING FIELD OPERATOR Ot H66.91 OTITIS MEDIA, UNSPECIFIED, RIGHT EAR 05/10/2016 CELIA HUGHES DRILLING FIELD OPERATOR Ot H92.01 OTALGIA, RIGHT EAR 05/13/2016 CELIA HUGHES DRILLING FIELD OPERATOR Ot H66.91 OTITIS MEDIA, UNSPECIFIED, RIGHT EAR 05/13/2016 CELIA HUGHES DRILLING FIELD OPERATOR Ot H92.01 OTALGIA, RIGHT EAR 07/04/2016 JUNO ABRAHAM MD Ot J04.0 ACUTE LARYNGITIS 07/04/2016 UJNO ABRAHAM MD Ot J06.9 ACUTE UPPER RESPIRATORY [...] Ot R05 COUGH 07/11/2016 JARAD HOLLINS, JUNO Guardado Ot R50.9 FEVER, UNSPECIFIED 10/25/2016 NEPTALI HOLLINS, [...] O 12/21/2016 BASILIO CANALES Ot Z79.899 OTHER [facility] (CURRENT) DRUG THERAPY 12/21/2016 BASILIO CANALES Ot Z90.5 ACQUIRED ABSENCE OF KIDNEY 12/23/2016 BASILIO CANALES Ot I10 ESSENTIAL (PRIMARY) HYPERTENSION 12/23/2016 BASILIO CANALES Ot J02.9 ACUTE PHARYNGITIS, UNSPECIFIED 12/23/2016 BASILIO CANALES Ot J10.1 FLU DUE TO OTH IDENT INFLUENZA VIRUS W O 12/23/2016 BASILIO CANALES Ot Z79.899 OTHER MONEY POSITION OFFICER (CURRENT) DRUG THERAPY 12/23/2016 BASILIO CANALES Ot Z90.5 ACQUIRED ABSENCE OF KIDNEY 12/27/2016 BASILIO CANALES Ot I10 ESSENTIAL (PRIMARY) HYPERTENSION 12/27/2016 BASILIO CANALES Ot J02.9 ACUTE PHARYNGITIS, UNSPECIFIED 12/27/2016 BASILIO CANALES Ot J10.1 FLU DUE TO OTH IDENT INFLUENZA VIRUS W O 12/27/2016 BASILIO CANALES Ot Z79.899 OTHER MONEY POSITION OFFICER (CURRENT) DRUG THERAPY 12/27/2016 BASILIO CANALES Ot [...] TRACT INFECTION, SITE NOT SPECIF 2017 RAÚL DO, SHAQ K Ot R10.84 GENERALIZED ABDOMINAL PAIN 2017 RAÚL , SHAQ K Ot Z90.5 ACQUIRED ABSENCE OF KIDNEY 2017 RAÚL DO, SHAQ K Ot Z90.89 ACQUIRED [...] DISORDER, SINGLE EPISOD 11/14/2017 HAMMAD ROACH MD Ot F41.9 ANXIETY DISORDER, UNSPECIFIED 11/14/2017 HAMMAD [...] PURE HYPERCHOLESTEROLEMIA, UNSPECIFIED 11/17/2017 HAMMAD ROACH MD J Ot F32.9 MAJOR DEPRESSIVE DISORDER, SINGLE EPISOD 11/17/2017 HAMMAD ROACH MD Ot F41.9 ANXIETY DISORDER, UNSPECIFIED 11/17/2017 DOC HOLLINS, HAMMAD Mijares Ot G40.909 EPILEPSY, UNSP, NOT INTRACTABLE, WITHOUT 11/17/2017 HAMMAD ROACH MD Ot G43.909 MIGRAINE, UNSP, NOT INTRACTABLE, WITHOUT [...] Ot F41.9 ANXIETY DISORDER, UNSPECIFIED 03/29/2018 RAÚL DO SHAQ K Ot G40.909 EPILEPSY, UNSP, NOT [...] ALLERGY STATUS TO OTH DRUG/MEDS/BIOL SUB 04/04/2018 RAÚLSHAQ Starks DO Ot Z90.5 ACQUIRED ABSENCE OF KIDNEY [...] OF OTHER SPECIFIED COND 10/09/2018 NELIDA, ERIKA SIGNAL PROCESSING ENGINEER Ot E78.00 PURE HYPERCHOLESTEROLEMIA, UNSPECIFIED 10/09/2018 NELIDA, ERIKA SIGNAL PROCESSING ENGINEER Ot F32.9 MAJOR DEPRESSIVE DISORDER, SINGLE EPISOD 10/09/2018 NELIDA, ERIKA SIGNAL PROCESSING ENGINEER Ot F41.9 ANXIETY DISORDER, UNSPECIFIED 10/09/2018 NELIDA, ERIKA SIGNAL PROCESSING ENGINEER Ot G40.909 EPILEPSY, UNSP, NOT INTRACTABLE, WITHOUT 10/09/2018 NELIDA, ERIKA SIGNAL PROCESSING ENGINEER Ot G43.909 MIGRAINE, UNSP, NOT INTRACTABLE, WITHOUT 10/09/2018 NELIDA, ERIKA SIGNAL PROCESSING ENGINEER Ot I10 ESSENTIAL (PRIMARY) HYPERTENSION 10/09/2018 NELIDA, ERIKA SIGNAL PROCESSING ENGINEER Ot N39.0 URINARY TRACT INFECTION, SITE NOT SPECIF 10/09/2018 NELIDA, ERIKA SIGNAL PROCESSING ENGINEER Ot R56.9 UNSPECIFIED CONVULSIONS 10/09/2018 NELIDA, ERIKA SIGNAL PROCESSING ENGINEER Ot Z88.0 ALLERGY STATUS TO PENICILLIN 10/09/2018 NELIDA, ERIKA SIGNAL PROCESSING ENGINEER Ot Z88.1 ALLERGY STATUS TO OTHER ANTIBIOTIC AGENT 10/09/2018 NELIDA, ERIKA SIGNAL PROCESSING ENGINEER Ot Z88.2 ALLERGY STATUS TO SULFONAMIDES STATUS 10/09/2018 NELIDA, ERIKA SIGNAL PROCESSING ENGINEER Ot Z88.8 ALLERGY STATUS TO OTH DRUG/MEDS/BIOL SUB 10/09/2018 NELIDA, ERIKA SIGNAL PROCESSING ENGINEER Ot Z90.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 10/14/2018 NELIDA, ERIKA SIGNAL PROCESSING ENGINEER Ot E78.00 PURE HYPERCHOLESTEROLEMIA, UNSPECIFIED 10/14/2018 NELIDA, ERIKA SIGNAL PROCESSING ENGINEER Ot F32.9 MAJOR DEPRESSIVE DISORDER, SINGLE EPISOD 10/14/2018 NELIDA, ERIKA SIGNAL PROCESSING ENGINEER Ot F41.9 ANXIETY DISORDER, UNSPECIFIED 10/14/2018 NELIDA, ERIKA SIGNAL PROCESSING ENGINEER Ot G40.909 EPILEPSY, UNSP, NOT INTRACTABLE, WITHOUT 10/14/2018 NELIDA, ERIKA SIGNAL PROCESSING ENGINEER Ot G43.909 MIGRAINE, UNSP, NOT INTRACTABLE, WITHOUT 10/14/2018 NELIDA, ERIKA SIGNAL PROCESSING ENGINEER Ot I10 ESSENTIAL (PRIMARY) HYPERTENSION 10/14/2018 NELIDA, ERIKA SIGNAL PROCESSING ENGINEER Ot N39.0 URINARY TRACT INFECTION, SITE NOT SPECIF 10/14/2018 NELIDA, ERIKA SIGNAL PROCESSING ENGINEER Ot R56.9 UNSPECIFIED CONVULSIONS 10/14/2018 NELIDA, ERIKA SIGNAL PROCESSING ENGINEER Ot Z88.0 ALLERGY STATUS TO PENICILLIN 10/14/2018 NELIDA, ERIKA SIGNAL PROCESSING ENGINEER Ot Z88.1 ALLERGY STATUS TO OTHER ANTIBIOTIC AGENT 10/14/2018 NELIDA, ERIKA SIGNAL PROCESSING ENGINEER Ot Z88.2 ALLERGY STATUS TO SULFONAMIDES STATUS 10/14/2018 NELIDA, ERIKA SIGNAL PROCESSING ENGINEER Ot Z88.8 ALLERGY STATUS TO OT DRUG/MEDS/BIOL SUB 10/14/2018 NELIDA, ERIKA SIGNAL PROCESSING ENGINEER Ot Z90.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 10/16/2018 NELIDA, ERIKA SIGNAL PROCESSING ENGINEER Ot E78.00 PURE HYPERCHOLESTEROLEMIA, UNSPECIFIED 10/16/2018 NELIDA, ERIKA SIGNAL PROCESSING ENGINEER Ot F32.9 MAJOR DEPRESSIVE DISORDER, SINGLE EPISOD 10/16/2018 NELIDA, ERIKA SIGNAL PROCESSING ENGINEER Ot F41.9 ANXIETY DISORDER, UNSPECIFIED 10/16/2018 NELIDA, ERIKA SIGNAL PROCESSING ENGINEER Ot G40.909 EPILEPSY, UNSP, NOT INTRACTABLE, WITHOUT 10/16/2018 NELIDA, ERIKA SIGNAL PROCESSING ENGINEER Ot G43.909 MIGRAINE, UNSP, NOT INTRACTABLE, WITHOUT 10/16/2018 NELIDA, ERIKA SIGNAL PROCESSING ENGINEER Ot I10 ESSENTIAL (PRIMARY) HYPERTENSION 10/16/2018 NELIDA, ERIKA SIGNAL PROCESSING ENGINEER Ot N39.0 URINARY TRACT INFECTION, SITE NOT SPECIF 10/16/2018 NELIDA, ERIKA SIGNAL PROCESSING ENGINEER Ot R56.9 UNSPECIFIED CONVULSIONS 10/16/2018 NELIDA, ERIKA SIGNAL PROCESSING ENGINEER Ot Z88.0 ALLERGY STATUS TO PENICILLIN 10/16/2018 NELIDA, ERIKA SIGNAL PROCESSING ENGINEER Ot Z88.1 ALLERGY STATUS TO OTHER ANTIBIOTIC AGENT 10/16/2018 NELIDA, ERIKA SIGNAL PROCESSING ENGINEER Ot Z88.2 ALLERGY STATUS TO SULFONAMIDES STATUS 10/16/2018 NELIDAERIKA BellP Ot Z88.8 ALLERGY STATUS TO OTH DRUG/MEDS/BIOL SUB 10/16/2018 ERIKA KRAUSE Ot Z90.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 12/23/2018 Ot G43.909 MIGRAINE, UNSP, NOT INTRACTABLE, WITHOUT 12/23/2018 Ot G93.89 OTHER SPECIFIED DISORDERS OF BRAIN 12/23/2018 Ot Z86.69 PERSONAL HISTORY OF DIS OF THE NERVOUS S 12/23/2018 Ot Z87.898 PERSONAL HISTORY OF OTHER SPECIFIED COND 01/09/2019 CELIA HUGHES APRN Ot E78.00 PURE HYPERCHOLESTEROLEMIA, UNSPECIFIED 01/09/2019 CELIA HUGHES APRN Ot F32.9 MAJOR DEPRESSIVE DISORDER, SINGLE EPISOD 01/09/2019 CELIA HUGHES APRN Ot F41.9 ANXIETY DISORDER, UNSPECIFIED 01/09/2019 CELIA HUGHES APRN Ot G40.909 EPILEPSY, UNSP, NOT INTRACTABLE, WITHOUT 01/09/2019 CELIA HUGHES APRN Ot G43.909 MIGRAINE, UNSP, NOT INTRACTABLE, WITHOUT 01/09/2019 CELIA HUGHES APRN Ot I10 ESSENTIAL (PRIMARY) HYPERTENSION 01/09/2019 CELIA HUGHES APRN Ot M25.572 PAIN IN LEFT ANKLE AND JOINTS OF LEFT FO 01/09/2019 CELIA HUGHES APRN Ot S90.32XA CONTUSION OF LEFT FOOT, INITIAL ENCOUNTE 01/09/2019 CELAI HUGHES APRN Ot W22.03XA WALKED INTO FURNITURE, INITIAL ENCOUNTER 01/09/2019 CELIA HUGHES APRN Ot Z88.0 ALLERGY STATUS TO PENICILLIN 01/09/2019 CELIA HUGHES APRN Ot Z88.2 ALLERGY STATUS TO SULFONAMIDES STATUS 01/09/2019 CELIA HUGHES APRN Ot Z88.8 ALLERGY STATUS TO OTH DRUG/MEDS/BIOL SUB 01/09/2019 CELIA HUGHES APRN Ot Z90.5 ACQUIRED ABSENCE OF KIDNEY 01/09/2019 CELIA HUGHES APRN Ot Z90.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 03/24/2019 SHAQ OLSEN DO Ot E78.00 PURE HYPERCHOLESTEROLEMIA, UNSPECIFIED 03/24/2019 RAÚL DO, SHAQ K Ot F32.9 MAJOR DEPRESSIVE DISORDER, SINGLE EPISOD 03/24/2019 RAÚL DO SHAQ K Ot F41.9 ANXIETY DISORDER, UNSPECIFIED 03/24/2019 RAÚL DO SHAQ K Ot G40.909 EPILEPSY, UNSP, NOT INTRACTABLE, WITHOUT 03/24/2019 RAÚL DO SHAQ K Ot G43.909 MIGRAINE, UNSP, NOT INTRACTABLE, WITHOUT 03/24/2019 RAÚL DO SHAQ K Ot I10 ESSENTIAL (PRIMARY) HYPERTENSION 03/24/2019 RAÚL DO SHAQ K Ot N39.0 URINARY TRACT INFECTION, SITE NOT SPECIF 03/24/2019 RAÚL DO SHAQ K Ot R56.9 UNSPECIFIED CONVULSIONS 03/24/2019 RAÚL DO SHAQ K Ot Z87.891 PERSONAL HISTORY OF NICOTINE DEPENDENCE 03/24/2019 PADMINI OLSEN DOA K Ot Z88.0 ALLERGY STATUS TO PENICILLIN 03/24/2019 RAÚL PADMINI PRICEA K Ot Z88.2 ALLERGY STATUS TO SULFONAMIDES STATUS 03/24/2019 RAÚL PADMINI PRICEA K Ot Z88.8 ALLERGY STATUS TO OTH DRUG/MEDS/BIOL SUB 03/24/2019 RAÚL PADMINI PRICEA K Ot 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 ACQUIRED ABSENCE OF KIDNEY 03/24/2019 RAÚL DO SHAQ K Ot Z90.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 03/29/2019 RAÚL PADMINI PRICEA K Ot E78.00 PURE HYPERCHOLESTEROLEMIA, UNSPECIFIED 03/29/2019 RAÚL DO SHAQ K Ot F32.9 MAJOR DEPRESSIVE DISORDER, SINGLE EPISOD 03/29/2019 RAÚL PADMINI PRICEA K Ot F41.9 ANXIETY DISORDER, UNSPECIFIED 03/29/2019 RAÚL DO SHAQ K Ot G40.909 EPILEPSY, UNSP, NOT INTRACTABLE, WITHOUT 03/29/2019 RAÚL DO SHAQ K Ot G43.909 MIGRAINE, UNSP, NOT INTRACTABLE, WITHOUT 03/29/2019 RAÚL DO SHAQ K Ot I10 ESSENTIAL (PRIMARY) HYPERTENSION 03/29/2019 RAÚL DO SHAQ K Ot N39.0 URINARY TRACT INFECTION, SITE NOT SPECIF 03/29/2019 RAÚL DO SHAQ K Ot R56.9 UNSPECIFIED CONVULSIONS 03/29/2019 RAÚL DO SHAQ K Ot Z87.891 PERSONAL HISTORY OF NICOTINE DEPENDENCE 03/29/2019 RAÚL PADMINI PRICEA K Ot Z88.0 ALLERGY STATUS TO PENICILLIN 03/29/2019 RAÚL , SHAQ K Ot Z88.2 ALLERGY STATUS TO SULFONAMIDES STATUS 03/29/2019 RAÚL DO, SHAQ K Ot Z88.8 ALLERGY STATUS TO OTH DRUG/MEDS/BIOL SUB 03/29/2019 RAÚL , SHAQ K Ot Z90.5 ACQUIRED ABSENCE OF KIDNEY 03/29/2019 RAÚL , SHAQ K Ot Z90.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 03/31/2019 RAÚL DO, SHAQ K Ot E78.00 PURE HYPERCHOLESTEROLEMIA, UNSPECIFIED 03/31/2019 RAÚL DO, SHAQ K Ot F32.9 MAJOR DEPRESSIVE DISORDER, SINGLE EPISOD 03/31/2019 RAÚL , SHAQ K Ot F41.9 ANXIETY DISORDER, UNSPECIFIED 03/31/2019 RAÚL , SHAQ K Ot G40.909 EPILEPSY, UNSP, NOT INTRACTABLE, WITHOUT 03/31/2019 RAÚL DO, SHAQ K Ot G43.909 MIGRAINE, UNSP, NOT INTRACTABLE, WITHOUT 03/31/2019 RAÚL DO, SHAQ K Ot I10 ESSENTIAL (PRIMARY) HYPERTENSION 03/31/2019 RAÚL DO SHAQ K Ot N39.0 URINARY TRACT INFECTION, SITE NOT SPECIF 03/31/2019 PADMINI OLSEN DOA K Ot R56.9 UNSPECIFIED CONVULSIONS 03/31/2019 RAÚL DO SHAQ K Ot Z87.891 PERSONAL HISTORY OF NICOTINE DEPENDENCE 03/31/2019 PADMINI OLSEN DOA K Ot Z88.0 ALLERGY STATUS TO PENICILLIN 03/31/2019 RAÚL SHAQ K Ot Z88.2 ALLERGY STATUS TO SULFONAMIDES STATUS 03/31/2019 RAÚL , SHAQ K Ot Z88.8 ALLERGY STATUS TO OTH DRUG/MEDS/BIOL SUB 03/31/2019 RAÚL PADMINI PRICEA K Ot 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 ACQUIRED ABSENCE OF KIDNEY 03/31/2019 RAÚL DO, SHAQ K Ot Z90.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 04/06/2019 CELIA HUGHES APRN Ot E78.00 PURE HYPERCHOLESTEROLEMIA, UNSPECIFIED 04/06/2019 CELIA HUGHES APRN Ot F32.9 MAJOR DEPRESSIVE DISORDER, SINGLE EPISOD 04/06/2019 CELIA HUGHES APRN Ot F41.9 ANXIETY DISORDER, UNSPECIFIED 04/06/2019 CELIA HUGHES APRN Ot G40.909 EPILEPSY, UNSP, NOT INTRACTABLE, WITHOUT 04/06/2019 CELIA HUGHES APRN Ot G43.909 MIGRAINE, UNSP, NOT INTRACTABLE, WITHOUT 04/06/2019 CELIA HUGHES APRN Ot I10 ESSENTIAL (PRIMARY) HYPERTENSION 04/06/2019 CELIA HUGHES APRN Ot R56.9 UNSPECIFIED CONVULSIONS 04/06/2019 CELIA HUGHES APRN Ot Z87.448 PERSONAL HISTORY OF OTHER DISEASES OF UR 04/06/2019 CELIA HUGHES APRN Ot Z88.0 ALLERGY STATUS TO PENICILLIN 04/06/2019 CELIA HUGHES APRN Ot Z88.1 ALLERGY STATUS TO OTHER ANTIBIOTIC AGENT 04/06/2019 CELIA HUGHES APRN Ot Z88.2 ALLERGY STATUS TO SULFONAMIDES STATUS 04/06/2019 CELIA HUGHES APRN Ot Z88.8 ALLERGY STATUS TO OTH DRUG/MEDS/BIOL SUB 04/06/2019 CELIA HUGHES APRN Ot Z90.6 ACQUIRED ABSENCE OF OTHER PARTS OF URINA 04/06/2019 CELIA HUGHES APRN Ot Z90.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 04/06/2019 CELIA HUGHES APRN Ot Z98.890 OTHER SPECIFIED POSTPROCEDURAL STATES 04/08/2019 CELIA HUGHES APRN Ot E78.00 PURE HYPERCHOLESTEROLEMIA, UNSPECIFIED 04/08/2019 CELIA HUGHES APRN Ot F32.9 MAJOR DEPRESSIVE DISORDER, SINGLE EPISOD 04/08/2019 CELIA HUGHES APRN Ot F41.9 ANXIETY DISORDER, UNSPECIFIED 04/08/2019 CELIA HUGHES APRN Ot G40.909 EPILEPSY, UNSP, NOT INTRACTABLE, WITHOUT 04/08/2019 CELIA HUGHES APRN Ot G43.909 MIGRAINE, UNSP, NOT INTRACTABLE, WITHOUT 04/08/2019 CELIA HUGHES APRN Ot I10 ESSENTIAL (PRIMARY) HYPERTENSION 04/08/2019 CELIA HUGHES APRN Ot R56.9 UNSPECIFIED CONVULSIONS 04/08/2019 CELIA HUGHES APRN Ot Z87.448 PERSONAL HISTORY OF OTHER DISEASES OF UR 04/08/2019 CELIA HUGHES APRN Ot Z88.0 ALLERGY STATUS TO PENICILLIN 04/08/2019 CELIA HUGHES APRN Ot Z88.1 ALLERGY STATUS TO OTHER ANTIBIOTIC AGENT 04/08/2019 CELIA HUGHES APRN Ot Z88.2 ALLERGY STATUS TO SULFONAMIDES STATUS 04/08/2019 CELIA HUGHES APRN Ot Z88.8 ALLERGY STATUS TO OTH DRUG/MEDS/BIOL SUB 04/08/2019 CELIA HUHGES APRN Ot Z90.6 ACQUIRED ABSENCE OF OTHER PARTS OF URINA 04/08/2019 CELIA HUGHES APRN Ot Z90.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 04/08/2019 CELIA HUGHES APRN Ot Z98.890 OTHER SPECIFIED POSTPROCEDURAL STATES 04/12/2019 CELIA HUGHES APRN Ot E78.00 PURE HYPERCHOLESTEROLEMIA, UNSPECIFIED 04/12/2019 CELIA HUGHES APRN Ot F32.9 MAJOR DEPRESSIVE DISORDER, SINGLE EPISOD 04/12/2019 CELIA HUGHES APRN Ot F41.9 ANXIETY DISORDER, UNSPECIFIED 04/12/2019 CELIA HUGHES APRN Ot G40.909 EPILEPSY, UNSP, NOT INTRACTABLE, WITHOUT 04/12/2019 CELIA HUGHES APRN Ot G43.909 MIGRAINE, UNSP, NOT INTRACTABLE, WITHOUT 04/12/2019 CELIA HUGHES APRN Ot I10 ESSENTIAL (PRIMARY) HYPERTENSION 04/12/2019 CELIA HUGHES APRN Ot R56.9 UNSPECIFIED CONVULSIONS 04/12/2019 CELIA HUGHES APRN Ot Z87.448 PERSONAL HISTORY OF OTHER DISEASES OF UR 04/12/2019 CELIA HUGHES APRN Ot Z88.0 ALLERGY STATUS TO PENICILLIN 04/12/2019 CELIA HUGHES APRN Ot Z88.1 ALLERGY STATUS TO OTHER ANTIBIOTIC AGENT 04/12/2019 CELIA HUGHES APRN Ot Z88.2 ALLERGY STATUS TO SULFONAMIDES STATUS 04/12/2019 CELIA HUGHES APRN Ot Z88.8 ALLERGY STATUS TO OTH DRUG/MEDS/BIOL SUB 04/12/2019 CELIA HUGHES APRN Ot Z90.6 ACQUIRED ABSENCE OF OTHER PARTS OF URINA 04/12/2019 CELIA HUGHES APRN Ot Z90.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 04/12/2019 CELIA HUGHES APRN Ot Z98.890 OTHER SPECIFIED POSTPROCEDURAL STATES Procedures Code Description [place] [id number] ROUTINE VENIPUNCTURE 09/30/2013 84753 CMP 09/30/2013 78990 CREATININE 09/30/2013 90766 BUN 09/30/2013 [id number] GFR CALC (RESULT ONLY) 09/30/2013 98527 CBC 10/01/2013 61802 EAR LAVAGE 10/26/2013 49414 ROUTINE VENIPUNCTURE 11/01/2013 99515 TEST, URINE (IN-HOUSE) 11/01/2013 95308 A1C (RML) 11/01/2013 46473 PROLACTIN 11/01/2013 02482 TSH 11/01/2013 56344 TESTOSTERONE TOTAL-WOMEN & CHILDREN 11/02/2013 Goyo Cote 04/12/2014 Results Test Result Range Streptococcus pyogenes antigen detection - 12/21/16 12:30 Streptococcus pyogenes antigen detection NEGATIVE NEGATIVE Bacterial throat culture - 12/21/16 12:30 Bacterial throat culture NBS NRG Streptococcus pyogenes antigen detection - 08/08/17 20:55 Streptococcus pyogenes antigen detection NEGATIVE NEGATIVE Bacterial throat culture - 08/08/17 20:55 Bacterial throat culture NBS NRG Complete urinalysis with reflex to culture - [...] culture - 09/18/17 00:45 Bacterial urine culture [id number] NRG COLONY COUNT 10,000/ML - 100,000/ML NRG [...] automated white blood cell (WBC) differential - 03/23/19 21:53 Blood leukocytes automated count (number/volume) 8.6 10*3/uL 4.3-11.0 Blood erythrocytes automated count (number/volume) 4.89 10*6/uL 4.35-5.85 Venous blood hemoglobin measurement (mass/volume) 14.1 g/dL 11.5-16.0 Blood hematocrit (volume fraction) 41 % 35-52 Automated erythrocyte mean corpuscular volume 84 [foz_us] 80-99 Automated erythrocyte mean corpuscular hemoglobin (mass per erythrocyte) 29 pg 25-34 Automated erythrocyte mean corpuscular hemoglobin concentration measurement (mass/volume) 34 g/dL 32-36 Automated erythrocyte distribution width ratio 12.8 % 10.0- 14.5 Automated blood platelet count (count/volume) 312 10*3/uL 130-400 Automated blood platelet mean volume measurement 10.6 [foz_us] 7.4-10.4 Automated blood neutrophils/100 leukocytes 64 % 42-75 Automated blood lymphocytes/100 leukocytes 27 % 12-44 Blood monocytes/100 leukocytes 8 % 0-12 Automated blood eosinophils/100 leukocytes 0 % 0-10 Automated blood basophils/100 leukocytes 1 % 0-10 Blood neutrophils automated count (number/volume) 5.5 10*3 1.8-7.8 Blood lymphocytes automated count (number/volume) 2.4 10*3 1.0-4.0 Blood monocytes automated count (number/volume) 0.7 10*3 0.0- 1.0 Automated eosinophil count 0.0 10*3/uL 0.0-0.3 Automated blood basophil count (count/volume) 0.1 10*3/uL 0.0-0.1 Comprehensive metabolic panel - 03/23/19 21:53 Serum or plasma sodium measurement (moles/volume) 140 mmol/L 135-145 Serum or plasma potassium measurement (moles/volume) 4.0 mmol/L 3.6-5.0 Serum or plasma chloride measurement (moles/volume) 106 mmol/L 98-107 Carbon dioxide 22 mmol/L 21-32 Serum or plasma anion gap determination (moles/volume) 12 mmol/L 5-14 Serum or plasma urea nitrogen measurement (mass/volume) 18 mg/dL 7-18 Serum or plasma creatinine measurement (mass/volume) 0.88 mg/dL 0.60-1.30 Serum or plasma urea nitrogen/creatinine mass ratio 20 NRG Serum or plasma creatinine measurement with calculation of estimated glomerular filtration rate > NRG Serum or plasma glucose measurement (mass/volume) 127 mg/dL 70-105 Serum or plasma calcium measurement (mass/volume) 9.5 mg/dL 8.5-10.1 Serum or plasma total bilirubin measurement (mass/volume) 0.3 mg/dL 0.1-1.0 Serum or plasma alkaline phosphatase measurement (enzymatic activity/volume) 68 U/L 40-136 Serum or plasma aspartate aminotransferase measurement (enzymatic activity/volume) 19 U/L 5-34 Serum or plasma alanine aminotransferase measurement (enzymatic activity/volume) 23 U/L 0-55 Serum or plasma protein measurement (mass/volume) 7.6 g/dL 6.4-8.2 Serum or plasma albumin measurement (mass/volume) 4.5 g/dL 3.2-4.5 CALCIUM CORRECTED 9.1 mg/dL 8.5-10.1 Magnesium - 03/23/19 21:53 Magnesium 2.2 mg/dL 1.8-2.4 Serum or plasma creatine kinase measurement (enzymatic activity/volume) - 03/23/19 21:53 Serum or plasma creatine kinase measurement (enzymatic activity/volume) 45 U/L 29-168 Serum or plasma creatine kinase MB measurement (enzymatic activity/volume) - 03/23/19 21:53 Serum or plasma creatine kinase MB measurement (enzymatic activity/volume) 0.6 ng/mL <6.6 Serum or plasma thyrotropin measurement by detection limit <=0.05 miu/l (units/volume) - 03/23/19 21:53 Serum or plasma thyrotropin measurement by detection limit <=0.05 miu/l (units/volume) 1.72 u[iU]/mL 0.35-4.94 Serum or plasma ethanol measurement (mass/volume) - 03/23/19 21:53 Serum or plasma ethanol measurement (mass/volume) < mg/dL <10 Complete urinalysis with reflex to culture - 03/23/19 23:48 Urine color determination YELLOW NRG Urine clarity determination CLEAR NRG Urine pH measurement by test strip 6 5-9 Specific gravity of urine by test strip 1.020 1.016-1.022 Urine protein assay by test strip, semi-quantitative NEGATIVE NEGATIVE Urine glucose detection by automated test strip NEGATIVE NEGATIVE Erythrocytes detection in urine sediment by light microscopy 4+ NEGATIVE Urine ketones detection by automated test [...] urine sediment by light microscopy MODERATE NRG Complete urinalysis with reflex to culture YES NRG Urine drug screening test - 03/23/19 23:48 Urine phencyclidine detection by screening method NEGATIVE [...] NEGATIVE NEGATIVE Urine propoxyphene detection NEGATIVE NEGATIVE Bacterial urine culture - 03/23/19 23:48 Bacterial urine culture 3 OR MORE NRG COLONY COUNT >100,000/ML NRG FTX;REPORTABLE GRAM POSITIVES, SUGGESTING PROBABLE NRG FREE TEXT ENTRY 2 COLLECTION CONTAMINATION WITH SKIN BILL NRG FREE TEXT ENTRY 3 NO SUSCEPTIBILITY PERFORMED NRG LEVETIRACETAM, SERUM OR PLASMA - 03/30/19 11:38 LEVETIRACETAM 13.2 mcg/mL 12.0-46.0 Encounters ACCT No. Visit Date/Time Discharge Status Pt. Type Provider Facility Loc./Unit Complaint [id number] 03/30/2019 11:20:00 03/30/2019 23:59:59 CLS Outpatient DAVID CHOI Ananth [facility], [place] [id number] 03/30/2019 11:20:00 Document Registration [id number] 11/20/2017 08:20:00 Document Registration [id number] 06/14/2014 00:00:00 06/14/2014 23:59:59 CLS Outpatient [id number] 04/12/2014 08:48:00 04/12/2014 23:59:59 CLS Outpatient NOEL MEYERS APRN [id number] 04/06/2014 12:40:00 04/06/2014 23:59:59 CLS Outpatient GEOFF REED APRN [id number] 11/02/2013 10:05:00 11/02/2013 23:59:59 CLS Outpatient NOEL MEYERS APRN [id number] 10/26/2013 10:11:00 10/26/2013 23:59:59 CLS Outpatient SILVER SAVAGE MD [id number] 09/30/2013 10:01:00 09/30/2013 23:59:59 CLS Outpatient NOEL MEYERS APRN [id number] 09/20/2013 13:46:00 09/20/2013 23:59:59 CLS Outpatient GEOFF REED APRN [id number] 04/06/2019 10:58:00 04/06/2019 11:50:00 DIS Emergency CELIA HUGHES APRN [facility] ER SEIZURE [id number] 03/23/2019 20:38:00 03/24/2019 00:55:00 DIS Emergency RAÚL PADMINI PRICEKelsie Guardado [facility] ER SEIZURE [id number] 01/09/2019 16:45:00 01/09/2019 17:10:00 DIS Emergency CELIA HUGHES 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 FIELD OPERATOR [facility] ER L ANKLE INJ [id number] 10/09/2018 16:31:00 10/09/2018 18:16:00 DIS Emergency ERIKA KRAUSE SIGNAL PROCESSING ENGINEER [facility] ER SEIZURE [id number] 04/03/2018 09:45:00 04/03/2018 23:59:59 CLS Preadmit DAVID CHOI DRILLING FIELD OPERATOR [facility] RAD HX OF SEIZURES [id number] 03/29/2018 03:45:00 03/29/2018 04:53:00 DIS Emergency SHAQ OLSEN DO [facility] ER POSS SEIZURE [id number] 11/14/2017 18:16:00 11/14/2017 20:55:00 DIS Emergency HAMMAD ROACH MD [facility] ER SEIZURE [id number] 10/18/2017 02:11:00 10/18/2017 02:56:00 DIS Emergency HAMMAD ROACH MD [facility] ER SORE THROAT,SWOLLEN THROAT-BLOODY [id number] 2017 00:35:00 2017 01:47:00 DIS Emergency SHAQ OLSEN DO [facility] ER LOWER BACK PAIN,BLOOD IN URINE [id number] 08/08/2017 20:19:00 08/08/2017 22:41:00 DIS Emergency BASILIO CANALES [facility] ER STREP THROAT [id number] 03/12/2017 16:06:00 03/12/2017 17:14:00 DIS Emergency BASILIO CANALES [facility] ER HURTS TO COUGH,THROAT HURTS [id number] 12/21/2016 12:24:00 12/21/2016 13:23:00 DIS Emergency BASILIO CANALES [facility] ER POSS STREP [id number] 10/25/2016 07:21:00 10/25/2016 07:50:00 DIS Emergency NEPTALI HOLLINS, KAMI Milton [facility] ER LEFT EYE REDNESS [id number] 07/04/2016 17:10:00 07/04/2016 17:25:00 DIS Emergency JARAD HOLLINS, JUNO Guardado [facility] ER SORE THROAT [id number] 05/10/2016 20:46:00 05/10/2016 21:11:00 DIS Emergency CELIA HUGHES APRN [facility] ER L EAR PAIN [id number] 04/30/2016 18:19:00 04/30/2016 21:20:00 DIS Emergency CELIA HUGHES APRN [facility] ER MIGRAINE PAIN/VOMITING [id number] 02/16/2016 10:47:00 02/16/2016 13:10:00 DIS Emergency CELIA HUGHES APRN [facility] ER MIGRAINE/NAUSEA [id number] 12/20/2015 20:32:00 12/20/2015 21:31:00 DIS Emergency STEF MCKNIGHT MD [facility] ER CP [id number] 12/16/2015 12:16:00 12/16/2015 14:54:00 DIS Emergency BASILIO CANALES [facility] ER DIFF BREATHING/CONGESTION [id number] 12/04/2015 10:21:00 12/04/2015 11:02:00 DIS Emergency CELIA HUGHES APRN [facility] ER POSS ABSCESS ON LEFT BREAST [id number] 11/26/2015 15:28:00 11/26/2015 23:59:59 CLS Emergency BASILIO CANALES [facility] ER HEADACHES/DIZZINESS [id number] 10/14/2015 16:39:00 10/14/2015 19:03:00 DIS Emergency SHAQ OLSEN DO [facility] ER L KIDNEY/R SHOULDER PAIN [id number] 09/03/2015 08:41:00 09/03/2015 11:36:00 DIS Emergency RONDA CHASE MD [facility] ER SORE THROAT,SOA,EAR PAIN [id number] 06/24/2015 10:25:00 06/24/2015 11:11:00 DIS Emergency CELIA HUGHES APRN [facility] ER RIGHT EAR PAIN/VOMITING [id number] 06/21/2015 14:16:00 06/21/2015 18:36:00 DIS Emergency ANTONIA BARNES DO [facility] ER LEFT EAR PAIN/BLEEDING [id number] 05/16/2015 19:22:00 05/16/2015 21:53:00 DIS Emergency SHAQ OLSEN DO [facility] ER HEADACHE [id number] 03/24/2015 09:06:00 03/24/2015 11:07:00 DIS Emergency CELIA HUGHES APRN [facility] ER SORE THROAT HEADACHE [id number] 09/29/2014 22:40:00 09/29/2014 23:47:00 DIS Emergency DELISA CARDONA MD [facility] ER VOMITING;HEADACHE [id number] 07/24/2014 11:13:00 07/24/2014 12:34:00 DIS Emergency BASILIO CANALES [facility] ER SORE THROAT [id number] 04/04/2014 10:03:00 04/04/2014 12:06:00 DIS Emergency SHAQ OLSEN DO [facility] ER MIGRAINE/VOMITING [id number] 02/14/2014 10:03:00 02/14/2014 11:47:00 DIS Emergency DELISA CARDONA MD [facility] ER MIGRAINE [id number] 02/12/2014 14:10:00 02/12/2014 15:08:00 DIS Emergency DELISA CARDONA MD [facility] ER MIGRAINE [id number] 02/01/2014 08:50:00 02/01/2014 10:12:00 DIS Emergency STEF MCKNIGHT MD [facility] ER MIGRAINE [id number] 11/04/2013 17:16:00 11/04/2013 21:14:00 DIS Emergency BASILIO CANALES [facility] ER CHEST PAIN,SOA [id number] 05/26/2018 11:50:00 Document Registration [id number] 03/24/2015 09:06:00 Document Registration [id number] 03/24/2015 09:06:00 Document Registration [id number] 07/11/2012 06:31:00 Document Registration
[2019-04-27 23:58] LABS: BILIRUBIN,URINE NEGATIVE (NEGATIVE); CLARITY,URINE CLEAR; COLOR,URINE YELLOW; GLUCOSE, URINE (UA) NEGATIVE (NEGATIVE); KETONES,URINE NEGATIVE (NEGATIVE); LEUKOCYTE ESTERASE ,URINE NEGATIVE (NEGATIVE); NITRITE,URINE NEGATIVE (NEGATIVE); PH,URINE 6 (5-9); PROTEIN,URINE NEGATIVE (NEGATIVE); UROBILINOGEN,URINE NORMAL (NORMAL)
[2019-04-28 00:10] LABS: BASOPHILS # (AUTO) 0.1 10^3/uL (0.0-0.1); BASOPHILS % (AUTO) 1 % (0-10); EOSINOPHILS % (AUTO) 0 % (0-10); HEMATOCRIT 40 % (35-52); HEMOGLOBIN 13.3 G/DL (11.5-16.0); LYMPHOCYTES # (AUTO) 2.6 X 10^3 (1.0-4.0); LYMPHOCYTES % (AUTO) 29 % (12-44); MEAN CORPUSCULAR HEMOGLOBIN 28 PG (25-34); MEAN CORPUSCULAR HGB CONC 33 G/DL (32-36); MEAN CORPUSCULAR VOLUME 84 FL (80-99); MEAN PLATELET VOLUME 10.2 FL (7.4-10.4); MONOCYTES # (AUTO) 0.7 X 10^3 (0.0-1.0); MONOCYTES % (AUTO) 8 % (0-12); NEUTROPHILS # (AUTO) 5.5 X 10^3 (1.8-7.8); NEUTROPHILS % (AUTO) 63 % (42-75); PLATELET COUNT 304 10^3/uL (130-400); RED CELL DISTRIBUTION WIDTH 13.2 % (10.0-14.5); WHITE BLOOD COUNT 8.8 10^3/uL (4.3-11.0)
[2019-04-28 00:12] LABS: BACTERIA,URINE TRACE /HPF
[2019-04-28 00:38] LABS: ALANINE AMINOTRANSFERASE 21 U/L (0-55); ALBUMIN 4.1 GM/DL (3.2-4.5); ALKALINE PHOSPHATASE 69 U/L (40-136); BILIRUBIN,TOTAL 0.4 MG/DL (0.1-1.0); BUN/CREATININE RATIO 12; CALCIUM 9.3 MG/DL (8.5-10.1); CARBON DIOXIDE 21 MMOL/L (21-32); CHLORIDE 105 MMOL/L (98-107); GFR ESTIMATED > 60; GLUCOSE 137 MG/DL (70-105); POTASSIUM 3.9 MMOL/L (3.6-5.0); SODIUM 140 MMOL/L (135-145); TOTAL PROTEIN 6.7 GM/DL (6.4-8.2)
[2019-04-28] MEDS ORDERED: KETOROLAC 30 MG/ML VIAL IVP ONE (01:30)
--- NOTE | 2019-04-28 01:31 | ED Abdominal Pain ---
General Chief Complaint: Abdominal/GI Problems Stated Complaint: LEFT SIDE ABD PAIN Nursing Triage Note: AMBULATORY TO ED ROOM 6 WITH C/O HITTING LEFT SIDE DURING SEIZURE ON 04/25. HX OF SEIZURE DISORDER. HAS HAD PERIOD FOR 2 WEEKS AND IS CONCERNED ABOUT THAT. HAS TRIED, ICE, HEAT, AND TYLENOL FOR PAIN WITH NO RELIEF. SOME DIZZINESS AND NAUSEA WELL. Sepsis Screen: No Definite Risk Source of Information: Patient Exam Limitations: No Limitations History of Present Illness Date Seen by Provider: Apr 27, 2019 Time Seen by Provider: 23:50 Initial Comments This 23-year-old woman presents to the emergency room with left upper abdominal pain that started 2 days ago on April 25 after having a seizure. She has known seizure history. She thinks she likely struck her abdomen on a nightstand by her bed. She reports increasing pain since the incident. She has not been taking any pain medication for this. 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 Her primary care provider is David Bland at [facility]. Allergies and Home Medications Allergies Coded Allergies: amoxicillin (Verified Allergy, Unknown, 04/06/19) carbamazepine (Verified Allergy, Unknown, 04/06/19) Penicillins (Unverified Adverse Reaction, Intermediate, 04/06/19) Sulfa (Sulfonamide Antibiotics) (Unverified Adverse Reaction, Intermediate, 04/06/19) Home Medications Fluoxetine HCl 20 Mg Capsule, 20 MG PO DAILY, (Reported) Hydroxyzine HCl 25 Mg Tablet, 25 MG PO Q8H PRN for ANXIETY, (Reported) Levetiracetam 500 Mg Tablet, 500 MG PO BID Prescribed by: ERIKA KRAUSE on 10/09/18 1811 Patient Home Medication List Home Medication List Reviewed: Yes Review of Systems Review of Systems Constitutional: no symptoms reported EENTM: No Symptoms Reported Respiratory: No Symptoms Reported Cardiovascular: No Symptoms Reported Gastrointestinal: See HPI Genitourinary: No Symptoms Reported Musculoskeletal: no symptoms reported Skin: no symptoms reported Psychiatric/Neurological: See HPI Endocrine: No Symptoms Reported Hematologic/Lymphatic: No Symptoms Reported Past Yqeocpb-Hgjinu-Vqgbor Hx Past Med/Social Hx: Reviewed and Corrections made Patient Social History Alcohol Use: Denies Use Recreational Drug Use: No Smoking Status: Never a Smoker Type Used: Cigarettes 2nd Hand Smoke Exposure: No Recent Foreign Travel: No Contact w/Someone Who Travel: No Recent Infectious Disease Expo: No Recent Hopitalizations: No Immunizations Up To Date Tetanus Booster (TDap): Unknown PED Vaccines UTD: Yes Date of Pneumonia Vaccine: Apr 19, 2012 Date of Influenza Vaccine: Apr 19, 2012 Seasonal Allergies Seasonal Allergies: Yes Past Medical History Surgeries: Yes (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 ) Chronic Ear Infection Hearing Impairment: Hard of Hearing Cancer: No Psychosocial: Yes Anxiety, Depression Integumentary: No Blood Disorders: No Family Medical History No Pertinent Family Hx Physical Exam Vital Signs Vital Signs - First Documented 04/27/19 04/28/19 23:41 01:37 Temp 98.2 Pulse 94 Resp 18 B/P (MAP) 134/79 (97) Pulse Ox 97 O2 Delivery Room Air Capillary Refill : Less Than 3 Seconds Height/Weight/BMI Height: 5'5.50" Weight: 265lbs. oz. 120.772811yd; 41.43 BMI Method:Stated General Appearance: WD/WN, no apparent distress, obese HEENT: PERRL/EOMI, normal ENT inspection, pharynx normal Neck: normal inspection Respiratory: lungs clear, normal breath sounds, no respiratory distress, no accessory muscle use Cardiovascular: regular rate, rhythm, no edema, no murmur Gastrointestinal: normal bowel sounds, soft, tenderness (Right upper quadrant. No superficial evidence of injury) Extremities: normal inspection, no pedal edema Neurologic/Psychiatric: yard manager II-XII nml as tested, no motor/sensory deficits, alert, normal mood/affect, oriented x 3 Skin: normal color, warm/dry Exam Comments Exam obscured by body habitus Progress/Results/Core Measures Results/Orders Lab Results Laboratory Tests Test 04/27/19 00:00 04/27/19 23:45 Range/Units White Blood Count 8.8 4.3-11.0 10^3/uL Red Blood Count 4.75 4.35-5.85 10^6/uL Hemoglobin 13.3 11.5-16.0 G/DL Hematocrit 40 35-52 % Mean Corpuscular Volume 84 80-99 FL Mean Corpuscular Hemoglobin 28 25-34 PG Mean Corpuscular Hemoglobin Concent 33 32-36 G/DL Red Cell Distribution Width 13.2 10.0-14.5 % Platelet Count 304 130-400 10^3/uL Mean Platelet Volume 10.2 7.4-10.4 FL Neutrophils (%) (Auto) 63 42-75 % Lymphocytes (%) (Auto) 29 12-44 % Monocytes (%) (Auto) 8 0-12 % Eosinophils (%) (Auto) 0 0-10 % Basophils (%) (Auto) 1 0-10 % Neutrophils # (Auto) 5.5 1.8-7.8 X 10^3 Lymphocytes # (Auto) 2.6 1.0-4.0 X 10^3 Monocytes # (Auto) 0.7 0.0-1.0 X 10^3 Eosinophils # (Auto) 0.0 0.0-0.3 10^3/uL Basophils # (Auto) 0.1 0.0-0.1 10^3/uL Sodium Level 140 135-145 MMOL/L Potassium Level 3.9 3.6-5.0 MMOL/L Chloride Level 105 98-107 MMOL/L Carbon Dioxide Level 21 21-32 MMOL/L Anion Gap 14 5-14 MMOL/L Blood Urea Nitrogen 11 7-18 MG/DL Creatinine 0.90 0.60-1.30 MG/DL Estimat Glomerular Filtration Rate > 60 BUN/Creatinine Ratio 12 Glucose Level 137 H 70-105 MG/DL Calcium Level 9.3 8.5-10.1 MG/DL Corrected Calcium 9.2 8.5-10.1 MG/DL Total Bilirubin 0.4 0.1-1.0 MG/DL Aspartate Amino Transf (AST/SGOT) 16 5-34 U/L Alanine Aminotransferase (ALT/SGPT) 21 0-55 U/L Alkaline Phosphatase 69 40-136 U/L Total Protein 6.7 6.4-8.2 GM/DL Albumin 4.1 3.2-4.5 GM/DL Urine Color YELLOW Urine Clarity CLEAR Urine pH 6 5-9 Urine Specific [place] 1.020 1.016-1.022 Urine Protein NEGATIVE NEGATIVE Urine Glucose (UA) NEGATIVE NEGATIVE Urine Ketones NEGATIVE NEGATIVE Urine Nitrite NEGATIVE NEGATIVE Urine Bilirubin NEGATIVE NEGATIVE Urine Urobilinogen NORMAL NORMAL MG/DL Urine Leukocyte Esterase NEGATIVE NEGATIVE Urine RBC (Auto) NEGATIVE NEGATIVE Urine RBC NONE /HPF Urine WBC NONE /HPF Urine Squamous Epithelial Cells 2-5 /HPF Urine Crystals NONE /LPF Urine Bacteria TRACE /HPF Urine Casts NONE /LPF Urine Mucus NEGATIVE /LPF Urine Culture Indicated NO My Orders Orders - STEF MCKNIGHT MD Cbc With Automated Diff (04/27/19 23:52) Comprehensive Metabolic Panel (04/27/19 23:52) Ua Culture If Indicated (04/27/19 23:52) Ed Iv/Invasive Line Start (04/27/19 23:52) Ketorolac Injection (Toradol Injection) (04/28/19 01:30) Vital Signs/I&O 04/27/19 04/28/19 23:41 01:37 Temp 98.2 98.2 Pulse 94 80 Resp 18 18 B/P (MAP) 134/79 (97) 131/99 (110) Pulse Ox 97 O2 Delivery Room Air Blood Pressure Mean: 97 Progress Progress Note : Progress Note Workup was unremarkable and vital signs were normal. Patient was offered CT scan to evaluate her pain further. Risks and benefits of CT scan were reviewed with patient. Contrast dye is a risk given her unilateral kidney. We discussed risks and benefits including risk of radiation exposure. Patient elects to forego the CT scan and treat symptoms. Toradol 10 mg IV was administered before departure. Only 10 mg was administered due to her unilateral kidney. Departure Impression Primary Impression: Contusion of abdominal wall Qualified Codes: S30.1XXA - Contusion of abdominal wall, initial encounter Additional Impression: Left upper quadrant pain Disposition: 01 HOME, SELF-CARE Condition: Improved Departure-Patient Inst. Decision time for Depature: 01:29 Referrals: [facility] (PCP) Primary Care Physician DAVID BLAND APRN (Family) Primary Care Physician Patient Instructions: Acute Abdomen (Belly Pain), Adult (DC), Contusion (DC) Add. Discharge Instructions: The exact cause of your abdominal pain cannot be certain without imaging. However, abdominal wall contusion (bruising) is a likely cause. You may continue taking Tylenol (acetaminophen) up to 1000 mg every 6 hours as needed. If you choose to use ibuprofen, use no more than 400 mg twice a day for temporary use only. In general use of NSAID medications such as ibuprofen should be avoided due to your single kidney. Drink plenty of clear liquids. Follow-up with your primary care provider if not improving as expected. Return to the emergency room if you develop worsening symptoms such as escalating pain, vomiting, fever, etc. All discharge instructions reviewed with patient and/or family. Voiced understanding. Copy Copies To 1: IAIN PARSONS JOSHUA T MD Apr 28, 2019 01:31
[2019-04-28 01:37] VITALS: BP 131/99
== END 2019-04-28 01:38 | disposition home or self-care (01) ==
LOC: EDUNIT# 23:33 → ER 23:37
DX: S30.1XXA Contusion of abdominal wall, initial encounter (principal); G40.909 Epilepsy, unspecified, not intractable, without status epilepticus; I10 Essential (primary) hypertension; E78.00 Pure hypercholesterolemia, unspecified; G43.909 Migraine, unspecified, not intractable, without status migrainosus; F41.9 Anxiety disorder, unspecified; F32.9 Major depressive disorder, single episode, unspecified; Z88.1 Allergy status to other antibiotic agents; Z88.2 Allergy status to sulfonamides; Z88.8 Allergy status to other drugs, medicaments and biological substances; Z88.0 Allergy status to penicillin; Z90.89 Acquired absence of other organs; W22.8XXA Striking against or struck by other objects, initial encounter
CPT/HCPCS: 36415; 80053; 81000; 85025; 96374

== ENCOUNTER 2019-05-26 09:35 | Emergency (ER) | payer SELFPAY ==
[~2019-05-26] VITALS: Ht 165.1 cm; Wt 120.7 kg
[2019-05-26 11:32] LABS: BASOPHILS # (AUTO) 0.1 10^3/uL (0.0-0.1); BASOPHILS % (AUTO) 1 % (0-10); EOSINOPHILS % (AUTO) 0 % (0-10); HEMATOCRIT 41 % (35-52); HEMOGLOBIN 13.9 G/DL (11.5-16.0); LYMPHOCYTES # (AUTO) 1.5 X 10^3 (1.0-4.0); LYMPHOCYTES % (AUTO) 25 % (12-44); MEAN CORPUSCULAR HEMOGLOBIN 29 PG (25-34); MEAN CORPUSCULAR HGB CONC 34 G/DL (32-36); MEAN CORPUSCULAR VOLUME 85 FL (80-99); MONOCYTES # (AUTO) 0.7 X 10^3 (0.0-1.0); MONOCYTES % (AUTO) 11 % (0-12); NEUTROPHILS # (AUTO) 3.8 X 10^3 (1.8-7.8); NEUTROPHILS % (AUTO) 63 % (42-75); PLATELET COUNT 254 10^3/uL (130-400); RED CELL DISTRIBUTION WIDTH 13.2 % (10.0-14.5)
[2019-05-26] MEDS ORDERED: CEFD300C3 PO (11:32)
--- NOTE | 2019-05-26 11:32 | ED General ---
General Chief Complaint: Abdominal/GI Problems Stated Complaint: LEFT EAR/LEFT HIP PAIN Nursing Triage Note: AMB TO ED C/O ON L SIDE PAIN SINCE APRIL. HAS BEEN SEEN AT [facility] AND ED WITH NEG WORK UP. NOW HAVING EAR PAIN FOR DAYS. Nursing Sepsis Screen: No Definite Risk Source of Information: Patient Exam Limitations: No Limitations History of Present Illness Date Seen by Provider: May 26, 2019 Time Seen by Provider: 11:08 Initial Comments 23-year-old female who presents to emergency room with complaints of left ear pain for the past 4 days and left-sided abdominal wall pain that started in April. She reports that she has been seen twice for her left-sided abdominal radha n. She reports that the pain started when she was struck in the abdomen. She has had 2 workups that revealed no significant findings. She reports the pain is just an intermittent twinge that she rates at a 1 out of 10 on the pain scale. Associated Systoms: Denies Symptoms Allergies and Home Medications Allergies Coded Allergies: amoxicillin (Verified Allergy, Unknown, 04/06/19) carbamazepine (Verified Allergy, Unknown, 04/06/19) Penicillins (Unverified Adverse Reaction, Intermediate, 04/06/19) Sulfa (Sulfonamide Antibiotics) (Unverified Adverse Reaction, Intermediate, 04/06/19) Home Medications Cefdinir 300 Mg Capsule, 300 MG PO BID Prescribed by: ANDREW SUAREZ on 05/26/19 1132 Fluoxetine HCl 20 Mg Capsule, 20 MG PO DAILY, (Reported) Hydroxyzine HCl 25 Mg Tablet, 25 MG PO Q8H PRN for ANXIETY, (Reported) Levetiracetam 500 Mg Tablet, 500 MG PO BID Prescribed by: ERIKA KRAUSE on 10/09/18 1811 Patient Home Medication List Home Medication List Reviewed: Yes Review of Systems Review of Systems Constitutional: see HPI; No chills, No fever EENTM: see HPI, ear pain (left) Gastrointestinal: LLQ, see HPI All Other Systems Reviewed Negative Unless Noted: Yes Past Vjoqgyz-Hyliuc-Agldnw Hx Past Med/Social Hx: Reviewed Nursing Past Med/Soc Hx Patient Social History Alcohol Use: Denies Use Recreational Drug Use: No Smoking Status: Never a Smoker Type Used: Cigarettes 2nd Hand Smoke Exposure: No Recent Foreign Travel: No Contact w/Someone Who Travel: No Recent Infectious Disease Expo: No Recent Hopitalizations: No Immunizations Up To Date Tetanus Booster (TDap): Unknown PED Vaccines UTD: Yes Date of Pneumonia Vaccine: Apr 19, 2012 Date of Influenza Vaccine: Apr 19, 2012 Seasonal Allergies Seasonal Allergies: Yes Past Medical History 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 ) Chronic Ear Infection Hearing Impairment: Hard of Hearing Cancer: No Psychosocial: Yes Anxiety, Depression Integumentary: No Blood Disorders: No Family Medical History Reviewed Nursing Family Hx No Pertinent Family Hx Physical Exam Vital Signs Vital Signs - First Documented 05/26/19 09:49 Temp 98.1 Pulse 92 Resp 18 B/P (MAP) 153/84 (107) Pulse Ox 96 O2 Delivery Room Air Capillary Refill : Less Than 3 Seconds Height, Weight, BMI Height: 5'5.00" Weight: 266lbs. oz. 120.778022rr; 41.43 BMI Method:Stated General Appearance: No Apparent Distress, WD/WN HEENT: PERRL/EOMI, Normal ENT Inspection, Pharynx Normal, TM Abnormal (L) (erythema and bulging tympanic membrane.) Respiratory: Chest Non Tender, Lungs Clear, Normal Breath Sounds, No Accessory Muscle Use, No Respiratory Distress Cardiovascular: Regular Rate, Rhythm, No Edema, No Gallop, No JVD, No Murmur, Normal Peripheral Pulses Gastrointestinal: Normal Bowel Sounds, No Organomegaly, No Pulsatile Mass, Non Tender, Soft Neurologic/Psychiatric: Alert, Oriented x3, Normal Mood/Affect Skin: Normal Color, Warm/Dry Progress/Results/Core Measures Suspected Sepsis Recent Fever Within 48 Hours: No Infection Criteria Present: None New/Unexplained Altered Menta: No Sepsis Screen: No Definite Risk SIRS Temperature:98.1 Pulse: 92 Respiratory Rate: 18 Laboratory Tests 05/26/19 11:26: White Blood Count 6.0 Blood Pressure 153 /84 Mean: 107 Laboratory Tests 05/26/19 11:26: Creatinine 0.72, Platelet Count 254, Total Bilirubin 0.4 Results/Orders Lab Results Laboratory Tests Test 05/26/19 11:26 05/26/19 12:26 Range/Units White Blood Count 6.0 4.3-11.0 10^3/uL Red Blood Count 4.83 4.35-5.85 10^6/uL Hemoglobin 13.9 11.5-16.0 G/DL Hematocrit 41 35-52 % Mean Corpuscular Volume 85 80-99 FL Mean Corpuscular Hemoglobin 29 25-34 PG Mean Corpuscular Hemoglobin Concent 34 32-36 G/DL Red Cell Distribution Width 13.2 10.0-14.5 % Platelet Count 254 130-400 10^3/uL Mean Platelet Volume 11.0 H 7.4-10.4 FL Neutrophils (%) (Auto) 63 42-75 % Lymphocytes (%) (Auto) 25 12-44 % Monocytes (%) (Auto) 11 0-12 % Eosinophils (%) (Auto) 0 0-10 % Basophils (%) (Auto) 1 0-10 % Neutrophils # (Auto) 3.8 1.8-7.8 X 10^3 Lymphocytes # (Auto) 1.5 1.0-4.0 X 10^3 Monocytes # (Auto) 0.7 0.0-1.0 X 10^3 Eosinophils # (Auto) 0.0 0.0-0.3 10^3/uL Basophils # (Auto) 0.1 0.0-0.1 10^3/uL Sodium Level 140 135-145 MMOL/L Potassium Level 4.1 3.6-5.0 MMOL/L Chloride Level 106 98-107 MMOL/L Carbon Dioxide Level 26 21-32 MMOL/L Anion Gap 8 5-14 MMOL/L Blood Urea Nitrogen 12 7-18 MG/DL Creatinine 0.72 0.60-1.30 MG/DL Estimat Glomerular Filtration Rate > 60 BUN/Creatinine Ratio 17 Glucose Level 87 70-105 MG/DL Calcium Level 9.8 8.5-10.1 MG/DL Corrected Calcium 9.6 8.5-10.1 MG/DL Total Bilirubin 0.4 0.1-1.0 MG/DL Aspartate Amino Transf (AST/SGOT) 12 5-34 U/L Alanine Aminotransferase (ALT/SGPT) 16 0-55 U/L Alkaline Phosphatase 73 40-136 U/L Total Protein 7.0 6.4-8.2 GM/DL Albumin 4.2 3.2-4.5 GM/DL Amylase Level 43 25-125 U/L Lipase 40 8-78 U/L Urine Color YELLOW Urine Clarity SL CLOUDY Urine pH 8 5-9 Urine Specific [place] 1.015 L 1.016-1.022 Urine Protein NEGATIVE NEGATIVE Urine Glucose (UA) NEGATIVE NEGATIVE Urine Ketones NEGATIVE NEGATIVE Urine Nitrite NEGATIVE NEGATIVE Urine Bilirubin NEGATIVE NEGATIVE Urine Urobilinogen NORMAL NORMAL MG/DL Urine Leukocyte Esterase 3+ H NEGATIVE Urine RBC (Auto) 4+ H NEGATIVE Urine RBC 2-5 H /HPF Urine WBC >100 H /HPF Urine Squamous Epithelial Cells 25-50 H /HPF Urine Crystals NONE /LPF Urine Bacteria MODERATE H /HPF Urine Casts NONE /LPF Urine Mucus NEGATIVE /LPF Urine Culture Indicated YES Urine Test NEGATIVE NEGATIVE My Orders Orders - ANDREW SUAREZ Comprehensive Metabolic Panel (05/26/19 11:07) Lipase (05/26/19 11:07) Amylase (05/26/19 11:07) Ua Culture If Indicated (05/26/19 11:07) Ed Iv/Invasive Line Start (05/26/19 11:07) Cbc With Automated Diff (05/26/19 11:07) Hcg,Qualitative Urine (05/26/19 11:07) Urine Culture (05/26/19 12:26) Vital Signs/I&O 05/26/19 09:49 Temp 98.1 Pulse 92 Resp 18 B/P (MAP) 153/84 (107) Pulse Ox 96 O2 Delivery Room Air Capillary Refill : Less Than 3 Seconds Blood Pressure Mean: 107 Departure Impression Primary Impression: Otitis media Qualified Codes: H66.002 - Acute suppurative otitis media without spontaneous rupture of ear drum, left ear Additional Impressions: Abdominal wall pain UTI (urinary tract infection) Disposition: 01 HOME, SELF-CARE Condition: Stable/Unchanged Departure-Patient Inst. Decision time for Depature: 11:30 Referrals: [facility] (PCP) Primary Care Physician DAVID CHOI APRN (Family) Primary Care Physician Patient Instructions: Ear Infections (Otitis Media) (DC), Acute Abdomen (Belly Pain), Adult (DC), Urinary Tract Infections in Adults Add. Discharge Instructions: Take medications as directed. Drink plenty of water to stay hydrated and help flush out your urinary tract infection. Follow-up with your primary care provider within 1 week for recheck. Return back to the emergency room for worsening symptoms or concerns as needed. All discharge instructions reviewed with patient and/or family. Voiced understanding. Scripts Cefdinir (Cefdinir) 300 Mg Capsule 300 MG PO BID for 10 Days, #20 CAP 0 Refills Prov: ANDREW SUAREZ 05/26/19 ANDREW SUAREZ May 26, 2019 11:32
[2019-05-26 11:56] LABS: ALANINE AMINOTRANSFERASE 16 U/L (0-55); ALBUMIN 4.2 GM/DL (3.2-4.5); ALKALINE PHOSPHATASE 73 U/L (40-136); AMYLASE 43 U/L (25-125); BILIRUBIN,TOTAL 0.4 MG/DL (0.1-1.0); BUN/CREATININE RATIO 17; CALCIUM 9.8 MG/DL (8.5-10.1); CARBON DIOXIDE 26 MMOL/L (21-32); CHLORIDE 106 MMOL/L (98-107); CREATININE SERUM 0.72 MG/DL (0.60-1.30); GFR ESTIMATED > 60; GLUCOSE 87 MG/DL (70-105); LIPASE 40 U/L (8-78); POTASSIUM 4.1 MMOL/L (3.6-5.0); SODIUM 140 MMOL/L (135-145)
[2019-05-26 12:39] LABS: BILIRUBIN,URINE NEGATIVE (NEGATIVE); CLARITY,URINE SL CLOUDY; COLOR,URINE YELLOW; GLUCOSE, URINE (UA) NEGATIVE (NEGATIVE); KETONES,URINE NEGATIVE (NEGATIVE); LEUKOCYTE ESTERASE ,URINE 3+ (NEGATIVE); NITRITE,URINE NEGATIVE (NEGATIVE); PH,URINE 8 (5-9); PROTEIN,URINE NEGATIVE (NEGATIVE); UROBILINOGEN,URINE NORMAL (NORMAL)
[2019-05-26 12:40] LABS: BACTERIA,URINE MODERATE /HPF; SQUAMOUS EPITHELIAL CELL,UR 25-50 /HPF; WBC,URINE >100 /HPF
[2019-05-26 12:56] VITALS: BP 153/84
== END 2019-05-26 12:59 | disposition home or self-care (01) ==
LOC: EDUNIT# 09:35 → ER 09:37
DX: R10.9 Unspecified abdominal pain (principal); H66.92 Otitis media, unspecified, left ear; N39.0 Urinary tract infection, site not specified; I10 Essential (primary) hypertension; E78.00 Pure hypercholesterolemia, unspecified; G43.909 Migraine, unspecified, not intractable, without status migrainosus; G40.909 Epilepsy, unspecified, not intractable, without status epilepticus; F41.9 Anxiety disorder, unspecified; F32.9 Major depressive disorder, single episode, unspecified; Z88.0 Allergy status to penicillin; Z88.2 Allergy status to sulfonamides; Z88.8 Allergy status to other drugs, medicaments and biological substances; Z90.89 Acquired absence of other organs; Z90.5 Acquired absence of kidney; W22.8XXA Striking against or struck by other objects, initial encounter
CPT/HCPCS: 36415; 80053; 81000; 82150; 83690; 84703; 85025; 87088; 99282

== ENCOUNTER 2019-06-05 16:48 | Emergency (ER) | payer SELFPAY ==
[~2019-06-05] VITALS: Ht 165.1 cm; Wt 120.7 kg
[~2019-06-05 16:48] MED LIST changes: +CEFD300C3 PO
[2019-06-05 17:04] VITALS: BP 137/87
[2019-06-05] MEDS ORDERED: ACETAMINOPHEN 500 MG TAB (TYLENOL) PO ONE (17:15)
[2019-06-05 17:18] LABS: BILIRUBIN,URINE NEGATIVE (NEGATIVE); CLARITY,URINE SLIGHTLY CLOUDY; COLOR,URINE YELLOW; GLUCOSE, URINE (UA) NEGATIVE (NEGATIVE); KETONES,URINE NEGATIVE (NEGATIVE); LEUKOCYTE ESTERASE ,URINE 2+ (NEGATIVE); NITRITE,URINE NEGATIVE (NEGATIVE); PH,URINE 6 (5-9); PROTEIN,URINE NEGATIVE (NEGATIVE); UROBILINOGEN,URINE NORMAL (NORMAL)
--- NOTE | 2019-06-05 17:18 | ED Neurological Problem ---
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 REPORTS SHE TAKES KEPPRA TID. REPORTS IS CURRENTLY BEING TREATED FOR AN EAR ET URINARY TRACT INFECTION AT THIS TIME. NO OTHER C/O VOICED Nursing Sepsis Screen: No Definite Risk Source: patient Exam Limitations: no limitations History of Present Illness Date Seen by Provider: Jun 05, 2019 Time Seen by Provider: 17:10 Initial Comments This 23-year-old female presents after having had 2 tonic clonic seizures today. The patient has had long-standing seizures treated with Keppra. The patient has frequent once a day seizures. The patient's double seizures today concerned her and precipitated her presentation to the emergency department. Recent past medical history includes a urinary tract infection and an ear infection for which she is on Cefdinir under twice a day. The patient unfortunately has been taking the Cefdinir only once a day. The patient relates her Keppra was recentily increased to 500 mg three times daily by her caregiver, David Bland at [facility]. When the patient had her seizures today she struck her occiput and is having significant pain in her head. Past medical history is significant in that the patient has a single left kidney. 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 I discussed patient's presentation with my partner Dr. Anderson who was kind enough to assume care of the patient. Allergies and Home Medications Allergies Coded Allergies: amoxicillin (Verified Allergy, Unknown, 04/06/19) carbamazepine (Verified Allergy, Unknown, 04/06/19) Penicillins (Unverified Adverse Reaction, Intermediate, 04/06/19) Sulfa (Sulfonamide Antibiotics) (Unverified Adverse Reaction, Intermediate, 04/06/19) Home Medications Cefdinir 300 Mg Capsule, 300 MG PO BID Prescribed by: ANDREW SUAREZ on 05/26/19 1132 Fluoxetine HCl 20 Mg Capsule, 20 MG PO DAILY, (Reported) Hydroxyzine HCl 25 Mg Tablet, 25 MG PO Q8H PRN for ANXIETY, (Reported) Levetiracetam 500 Mg Tablet, 500 MG PO BID Prescribed by: ERIKA KRAUSE on 10/09/18 1811 Patient Home Medication List Home Medication List Reviewed: Yes Review of Systems Review of Systems Constitutional: No chills, No fever, No weakness; other (significant headache) Eyes: No Symptoms Reported Ears, Nose, Mouth, Throat: see HPI, ear pain; denies nose pain, denies epistaxis Respiratory: No cough, No short of breath Cardiovascular: No chest pain, No palpitations, No syncope Gastrointestinal: No abdominal pain, No nausea, No vomiting Genitourinary: No dysuria, No frequency Musculoskeletal: No back pain, No joint pain Skin: no symptoms reported Psychiatric/Neurological: No Symptoms Reported Endocrine: No Symptoms Reported Hematologic/Lymphatic: No Symptoms Reported Past Uscnvas-Yurqlv-Ljakfl Hx Past Med/Social Hx: Reviewed Nursing Past Med/Soc Hx Patient Social History Alcohol Use: Denies Use Recreational Drug Use: No Type Used: Cigarettes 2nd Hand Smoke Exposure: No Recent Foreign Travel: No Contact w/Someone Who Travel: No Recent Infectious Disease Expo: No Recent Hopitalizations: No Physical Abuse: No Sexual Abuse: No Mistreated: No Fear: No Immunizations Up To Date Tetanus Booster (TDap): Unknown PED Vaccines UTD: Yes Date of Pneumonia Vaccine: Apr 19, 2012 Date of Influenza Vaccine: Apr 19, 2012 Seasonal Allergies Seasonal Allergies: Yes Past Medical History 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 ) Chronic Ear Infection Hearing Impairment: Hard of Hearing Cancer: No Psychosocial: Yes Anxiety, Depression Integumentary: No Blood Disorders: No Family Medical History No Pertinent Family Hx Physical Exam Vital Signs Vital Signs - First Documented 06/05/19 16:53 Temp 97.5 Pulse 79 Resp 20 B/P (MAP) 145/103 (117) Pulse Ox 99 O2 Delivery Room Air Capillary Refill : Less Than 3 Seconds Height, Weight, BMI Height: 5'5.00" Weight: 266lbs. oz. 120.390902yc; 41.43 BMI Method:Stated General Appearance: WD/WN, no apparent distress, other HEENT: normal ENT inspection (fortunately the patient does not appear to be postictal), pharynx normal Neck: non-tender, full range of motion, supple Respiratory: chest non-tender, lungs clear, normal breath sounds, no respiratory distress Cardiovascular: regular rate, rhythm, no murmur Gastrointestinal: normal bowel sounds, non tender, soft Back: normal inspection, no CVA tenderness Extremities: normal range of motion, normal inspection Neurologic/Psychiatric: no motor/sensory deficits, alert, normal mood/affect Crainal Nerves: normal hearing, normal speech Motor/Sensory: no motor deficit, no sensory deficit Skin: normal color, warm/dry; No ecchymosis Progress/Results/Core Measures Results/Orders Lab Results Laboratory Tests Test 06/05/19 17:06 Range/Units White Blood Count 6.5 4.3-11.0 10^3/uL Red Blood Count 4.85 4.35-5.85 10^6/uL Hemoglobin 14.0 11.5-16.0 G/DL Hematocrit 41 35-52 % Mean Corpuscular Volume 85 80-99 FL Mean Corpuscular Hemoglobin 29 25-34 PG Mean Corpuscular Hemoglobin Concent 34 32-36 G/DL Red Cell Distribution Width 12.9 10.0-14.5 % Platelet Count 311 130-400 10^3/uL Mean Platelet Volume 10.6 H 7.4-10.4 FL Neutrophils (%) (Auto) 67 42-75 % Lymphocytes (%) (Auto) 26 12-44 % Monocytes (%) (Auto) 6 0-12 % Eosinophils (%) (Auto) 0 0-10 % Basophils (%) (Auto) 1 0-10 % Neutrophils # (Auto) 4.4 1.8-7.8 X 10^3 Lymphocytes # (Auto) 1.7 1.0-4.0 X 10^3 Monocytes # (Auto) 0.4 0.0-1.0 X 10^3 Eosinophils # (Auto) 0.0 0.0-0.3 10^3/uL Basophils # (Auto) 0.1 0.0-0.1 10^3/uL Urine Color YELLOW Urine Clarity SLIGHTLY CLOUDY Urine pH 6 5-9 Urine Specific [place] 1.010 L 1.016-1.022 Urine Protein NEGATIVE NEGATIVE Urine Glucose (UA) NEGATIVE NEGATIVE Urine Ketones NEGATIVE NEGATIVE Urine Nitrite NEGATIVE NEGATIVE Urine Bilirubin NEGATIVE NEGATIVE Urine Urobilinogen NORMAL NORMAL MG/DL Urine Leukocyte Esterase 2+ H NEGATIVE Urine RBC (Auto) NEGATIVE NEGATIVE Urine RBC NONE /HPF Urine WBC 0-2 /HPF Urine Squamous Epithelial Cells 2-5 /HPF Urine Crystals PRESENT H /LPF Urine Amorphous Sediment FEW CEDRIC URATES H /LPF Urine Bacteria FEW H /HPF Urine Casts NONE /LPF Urine Mucus NEGATIVE /LPF Urine Culture Indicated YES Sodium Level 142 135-145 MMOL/L Potassium Level 4.0 3.6-5.0 MMOL/L Chloride Level 108 H 98-107 MMOL/L Carbon Dioxide Level 22 21-32 MMOL/L Anion Gap 12 5-14 MMOL/L Blood Urea Nitrogen 11 7-18 MG/DL Creatinine 0.79 0.60-1.30 MG/DL Estimat Glomerular Filtration Rate > 60 BUN/Creatinine Ratio 14 Glucose Level 151 H 70-105 MG/DL Calcium Level 9.4 8.5-10.1 MG/DL Corrected Calcium 9.2 8.5-10.1 MG/DL Total Bilirubin 0.4 0.1-1.0 MG/DL Aspartate Amino Transf (AST/SGOT) 15 5-34 U/L Alanine Aminotransferase (ALT/SGPT) 19 0-55 U/L Alkaline Phosphatase 78 40-136 U/L Total Protein 7.1 6.4-8.2 GM/DL Albumin 4.3 3.2-4.5 GM/DL Serum Test, Qualitative NEGATIVE NEGATIVE My Orders Orders - KAMI GUNDERSON MD Levetiracetam Level (Keppra) (06/05/19 17:06) Cbc With Automated Diff (06/05/19 17:06) Comprehensive Metabolic Panel (06/05/19 17:06) Ua Culture If Indicated (06/05/19 17:06) Ct Head Wo (06/05/19 17:06) Acetaminophen Tablet (Tylenol Tablet) (06/05/19 17:15) Urine Culture (06/05/19 17:06) Hcg,Qualitative Serum (06/05/19 17:44) Ceftriaxone For Iv Use (Rocephin For I (06/05/19 18:00) Medications Given in ED Current Medications Medications Dose Ordered Sig/Kayode Route Start Time Stop Time Status Last Admin Dose Admin Acetaminophen 1,000 mg ONCE ONCE PO 06/05/19 17:15 06/05/19 17:16 DC 06/05/19 17:15 1,000 MG Vital Signs/I&O 06/05/19 06/05/19 16:53 17:04 Temp 97.5 97.5 Pulse 79 79 Resp 20 20 B/P (MAP) 145/103 (117) 137/87 (104) Pulse Ox 99 99 O2 Delivery Room Air Blood Pressure Mean: 104 Progress Progress Note : Time: 17:48 Progress Note Because of the closed head injury a CT of the head was ordered. A Keppra level is pending. CBC, CMP, and urinalysis were performed. Patient's headache was treated with a gram of Tylenol by mouth. 558 p.m. Patient's urine demonstrated a UTI. She was given a gram of Rocephin IV. CT of the head was unremarkable. I discussed findings with patient and recommended she take her antibiotic as p rescribed twice a day. I asked that she follow-up with her doctor at [facility] on Friday. She was invited to return to emergency Department for any problems or questions Departure Impression Primary Impression: Hx of seizure disorder Additional Impression: UTI (urinary tract infection) Qualified Codes: N30.00 - Acute cystitis without hematuria Disposition: HOME, SELF-CARE Condition: Improved Departure-Patient Inst. Decision time for Depature: 18:02 Referrals: [facility] (PCP) Primary Care Physician DAVID BLAND APRN (Family) Primary Care Physician Patient Instructions: Acute Cystitis (DC), Epilepsy in Adults Add. Discharge Instructions: Take your antibiotic twice a day. Follow-up on Friday with [facility]. Continue with Keppra 500 mg 3 times a day. Return if any problems or questions. All discharge instructions reviewed with patient and/or family. Voiced understanding. KAMI GUNDERSON MD Jun 05, 2019 17:18
[2019-06-05 17:20] LABS: BASOPHILS # (AUTO) 0.1 10^3/uL (0.0-0.1); BASOPHILS % (AUTO) 1 % (0-10); EOSINOPHILS % (AUTO) 0 % (0-10); HEMATOCRIT 41 % (35-52); LYMPHOCYTES # (AUTO) 1.7 X 10^3 (1.0-4.0); LYMPHOCYTES % (AUTO) 26 % (12-44); MEAN CORPUSCULAR HEMOGLOBIN 29 PG (25-34); MEAN CORPUSCULAR HGB CONC 34 G/DL (32-36); MEAN CORPUSCULAR VOLUME 85 FL (80-99); MEAN PLATELET VOLUME 10.6 FL (7.4-10.4); MONOCYTES # (AUTO) 0.4 X 10^3 (0.0-1.0); MONOCYTES % (AUTO) 6 % (0-12); NEUTROPHILS # (AUTO) 4.4 X 10^3 (1.8-7.8); NEUTROPHILS % (AUTO) 67 % (42-75); PLATELET COUNT 311 10^3/uL (130-400); RED CELL DISTRIBUTION WIDTH 12.9 % (10.0-14.5); WHITE BLOOD COUNT 6.5 10^3/uL (4.3-11.0)
[2019-06-05 17:37] LABS: ALANINE AMINOTRANSFERASE 19 U/L (0-55); ALBUMIN 4.3 GM/DL (3.2-4.5); ALKALINE PHOSPHATASE 78 U/L (40-136); BILIRUBIN,TOTAL 0.4 MG/DL (0.1-1.0); BUN/CREATININE RATIO 14; CALCIUM 9.4 MG/DL (8.5-10.1); CARBON DIOXIDE 22 MMOL/L (21-32); CHLORIDE 108 MMOL/L (98-107); CREATININE SERUM 0.79 MG/DL (0.60-1.30); GFR ESTIMATED > 60; GLUCOSE 151 MG/DL (70-105); SODIUM 142 MMOL/L (135-145); TOTAL PROTEIN 7.1 GM/DL (6.4-8.2)
[2019-06-05 17:41] LABS: AMORPHOUS SEDIMENT,UR FEW AMOR URATES /LPF; BACTERIA,URINE FEW /HPF; WBC,URINE 0-2 /HPF
[2019-06-05] MEDS ORDERED: cefTRIAXone FOR IV USE 1,000 MG in WATER (STERILE) FOR INJECTION 10 ML IV ONE (18:00)
--- NOTE | 2019-06-05 18:17 | Diagnostic Imaging Report ---
PROCEDURE: CT head without contrast. TECHNIQUE: Multiple contiguous axial images were obtained through the brain without the use of intravenous contrast. Auto Exposure Controls were utilized during the CT exam to meet ALARA standards for radiation dose reduction. INDICATION: Seizure. COMPARISON: None. FINDINGS: Ventricles normal in size, shape and position. There is no midline shift or mass effect. There is no hemorrhage or evidence of acute ischemia. No extraaxial fluid collection is seen. The bony calvarium, paranasal sinuses and mastoids are clear. IMPRESSION: Negative CT head. Dictated by: Dictated on workstation # [id number]
[2019-06-05 18:25] VITALS: BP 137/87
== END 2019-06-05 18:25 | disposition home or self-care (01) ==
LOC: EDUNIT# 16:48 → ER 16:49
DX: G40.909 Epilepsy, unspecified, not intractable, without status epilepticus (principal); N39.0 Urinary tract infection, site not specified; I10 Essential (primary) hypertension; E78.00 Pure hypercholesterolemia, unspecified; G43.909 Migraine, unspecified, not intractable, without status migrainosus; F41.9 Anxiety disorder, unspecified; F32.9 Major depressive disorder, single episode, unspecified; Z88.1 Allergy status to other antibiotic agents; Z88.0 Allergy status to penicillin; Z88.2 Allergy status to sulfonamides; Z88.8 Allergy status to other drugs, medicaments and biological substances; Z90.89 Acquired absence of other organs; Z86.012 Personal history of benign carcinoid tumor; Z86.018 Personal history of other benign neoplasm
CPT/HCPCS: 36415; 70450; 80053; 80177; 81000; 84703; 85025; 87088; 96374

== ENCOUNTER 2019-06-24 19:55 | Emergency (ER) | payer SELFPAY ==
[~2019-06-24] VITALS: Ht 165.1 cm; Wt 117.9 kg
[2019-06-24] MEDS ORDERED: DEXAMETHASONE 10 MG/ML (DECADRON) 1 ML VIAL IM ONE (20:30)
--- NOTE | 2019-06-24 20:31 | ED EENT ---
History of Present Illness General Chief Complaint: Oral/Throat Problems Stated Complaint: THROAT PAIN, TEMP 99.9 Nursing Triage Note: SYBIL HAS BEEN HAVING SINUS DRAINAGE PROBLEMS. TODAY HAS THROAT PAIN, CHEST DISCOMFORT, COUGHING, SOB, AND FEVERS OF 99.9. IT IS 98.2 NOW. Source: patient Exam Limitations: no limitations History of Present Illness Date Seen by Provider: Jun 24, 2019 Time Seen by Provider: 20:28 Initial Comments To ER with throat pain and discomfort when breathing. She's also had a cough and sinus drainage. She is been on Cedinir which she finished on 06/16, restarted on doxycycline for this recently and is still on that. Timing/Duration: abrupt Location: nose, throat Associated Symptoms: denies symptoms Allergies and Home Medications Allergies Coded Allergies: amoxicillin (Verified Allergy, Unknown, 04/06/19) carbamazepine (Verified Allergy, Unknown, 04/06/19) Penicillins (Unverified Adverse Reaction, Intermediate, 04/06/19) Sulfa (Sulfonamide Antibiotics) (Unverified Adverse Reaction, Intermediate, 04/06/19) Home Medications Cefdinir 300 Mg Capsule, 300 MG PO BID Prescribed by: ANDREW SUAREZ on 05/26/19 1132 Fluoxetine HCl 20 Mg Capsule, 20 MG PO DAILY, (Reported) Hydroxyzine HCl 25 Mg Tablet, 25 MG PO Q8H PRN for ANXIETY, (Reported) Levetiracetam 500 Mg Tablet, 500 MG PO BID Prescribed by: ERIKA KRAUSE on 10/09/18 1811 Patient Home Medication List Home Medication List Reviewed: Yes Review of Systems Review of Systems Constitutional: see HPI Eyes: No Symptoms Reported Ears: No Symptoms Reported Nose: no symptoms reported Mouth: no symptoms reported Throat: see HPI, pain Respiratory: see HPI, cough Cardiovascular: no symptoms reported Musculoskeletal: no symptoms reported Past Vqwhwmo-Ntvpxg-Qzspks Hx Patient Social History Alcohol Use: Denies Use Recreational Drug Use: No Smoking Status: Former Smoker Type Used: Cigarettes 2nd Hand Smoke Exposure: No Recent Foreign Travel: No Contact w/Someone Who Travel: No Recent Infectious Disease Expo: No Recent Hopitalizations: No Immunizations Up To Date Tetanus Booster (TDap): Unknown PED Vaccines UTD: Yes Date of Pneumonia Vaccine: Apr 19, 2012 Date of Influenza Vaccine: Apr 19, 2012 Seasonal Allergies Seasonal Allergies: Yes Past Medical History 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 ) Chronic Ear Infection Hearing Impairment: Hard of Hearing Cancer: No Psychosocial: Yes Anxiety, Depression Integumentary: No Blood Disorders: No Family Medical History No Pertinent Family Hx Physical Exam Vital Signs Vital Signs - First Documented 06/24/19 20:13 Temp 98.2 Pulse 78 Resp 18 B/P (MAP) 135/82 (99) Pulse Ox 99 Height, Weight, BMI Height: 5'5.00" Weight: 260lbs. 0oz. 117.326080hu; 41.43 BMI Method:Actual General Appearance: WD/WN, no apparent distress Eyes: bilateral eye normal inspection, bilateral eye PERRL, bilateral eye EOMI Ears: bilateral ear auricle normal, bilateral ear canal normal, bilateral ear TM normal Mouth/Throat: normal mouth inspection, other (pharyngeal erythema without exudate) Neck: non-tender, full range of motion Respiratory: no respiratory distress, no accessory muscle use; No wheezing Neurologic/Psychiatric: alert, normal mood/affect Progress/Results/Core Measures Results/Orders My Orders Orders - CELIA HUGHES APRN Rapid Strep A Screen (06/24/19 20:24) Dexamethasone Injection (Decadron Inject (06/24/19 20:30) Vital Signs/I&O 06/24/19 20:13 Temp 98.2 Pulse 78 Resp 18 B/P (MAP) 135/82 (99) Pulse Ox 99 Blood Pressure Mean: 99 Departure Impression Primary Impression: Viral pharyngitis Disposition: 01 HOME, SELF-CARE Condition: Stable Departure-Patient Inst. Decision time for Depature: 20:30 Referrals: [facility] (PCP) Primary Care Physician DAVID CHOI APRN (Family) Primary Care Physician Patient Instructions: Viral Pharyngitis Add. Discharge Instructions: 1. Tylenol and ibuprofen for pain control 2. Go to [facility] or [facility] in by Cepacol lozenges which have menthol to help clear the sinuses and benzocaine to help anesthetize the sore throat. All discharge instructions reviewed with patient and/or family. Voiced understanding. CELIA HUGHES DIRECTOR [employer] Jun 24, 2019 20:31
[2019-06-24 20:37] VITALS: BP 150/70
== END 2019-06-24 20:37 | disposition home or self-care (01) ==
LOC: EDUNIT# 19:55 → ER 19:56
DX: J02.8 Acute pharyngitis due to other specified organisms (principal); I10 Essential (primary) hypertension; E78.00 Pure hypercholesterolemia, unspecified; G43.909 Migraine, unspecified, not intractable, without status migrainosus; G40.909 Epilepsy, unspecified, not intractable, without status epilepticus; F41.9 Anxiety disorder, unspecified; F32.9 Major depressive disorder, single episode, unspecified; Z86.010 Personal history of colon polyps; Z88.1 Allergy status to other antibiotic agents; Z88.0 Allergy status to penicillin; Z88.8 Allergy status to other drugs, medicaments and biological substances; Z88.2 Allergy status to sulfonamides; Z87.891 Personal history of nicotine dependence; Z90.89 Acquired absence of other organs
CPT/HCPCS: 96372; 99284

== ENCOUNTER 2019-06-28 19:29 | Emergency (ER) | payer SELFPAY ==
[~2019-06-28] VITALS: Ht 167 cm; Wt 117.0 kg
--- NOTE | 2019-06-28 19:59 | Diagnostic Imaging Report ---
EXAM: Two-view chest INDICATION: Seizure and hemoptysis. COMPARISON is made with a prior study from 11/14/2017. FINDINGS: The lungs demonstrate no focal infiltrate or consolidation. There is no effusion. There is no pneumothorax. Heart size and mediastinal contours appear appropriate and pulmonary vascularity appears normal. No acute or suspicious osseous abnormality demonstrated. IMPRESSION: 1. No radiographic evidence of an acute cardiopulmonary process. Dictated by: Dictated on workstation # [id number]
--- NOTE | 2019-06-28 20:08 | ED Cough/URI ---
General Chief Complaint: Cough/Cold/Flu Symptoms Stated Complaint: SEIZURE Nursing Triage Note: Patient states that she had a seizure earlier this evening. She also states that she has a history of seizures and that she takes Keppra for them. Patients main complaint is that she is coughing up blood. Patient has been sick for a few weeks and has seen a doctor. She states that she has gotten 2 IM shots of steroids and an antibiotic but doesn't recall what the antibiotic is called. Sepsis Screen: No Definite Risk Source: patient Exam Limitations: no limitations History of Present Illness Date Seen by Provider: Jun 28, 2019 Time Seen by Provider: 19:37 Initial Comments 23-year-old female who presents to emergency room with complaints of coughing up blood. She is been treated for bronchitis and laryngitis in the past 2 weeks and received antibiotics and steroids. She has had 2 steroid injections and has been on Ceftin ear and doxycycline for her upper respiratory infections. She reports that she has had one episode where she noticed blood on the tissue while coughing. She denies shortness of breath. She also reports that she did have a seizure today but has a history of seizures and is on Keppra and has not missed any of her doses. Denies injury from the seizure. Timing/Duration: this afternoon Associated Symptoms: denies symptoms Allergies and Home Medications Allergies Coded Allergies: amoxicillin (Verified Allergy, Unknown, 04/06/19) carbamazepine (Verified Allergy, Unknown, 04/06/19) Penicillins (Unverified Adverse Reaction, Intermediate, 04/06/19) Sulfa (Sulfonamide Antibiotics) (Unverified Adverse Reaction, Intermediate, 04/06/19) Home Medications Cefdinir 300 Mg Capsule, 300 MG PO BID Prescribed by: ANDREW SUAREZ on 05/26/19 1132 Fluoxetine HCl 20 Mg Capsule, 20 MG PO DAILY, (Reported) Hydroxyzine HCl 25 Mg Tablet, 25 MG PO Q8H PRN for ANXIETY, (Reported) Levetiracetam 500 Mg Tablet, 500 MG PO BID Prescribed by: ERIKA KRAUSE on 10/09/18 1811 Patient Home Medication List Home Medication List Reviewed: Yes Review of Systems Review of Systems Respiratory: see HPI, hemoptysis All Other Systems Reviewed Negative Unless Noted: Yes Past Zvsyyvy-Talsaz-Pbcabz Hx Past Med/Social Hx: Reviewed Nursing Past Med/Soc Hx Patient Social History Alcohol Use: Denies Use Recreational Drug Use: No Smoking Status: Never a Smoker Type Used: Cigarettes 2nd Hand Smoke Exposure: No Recent Foreign Travel: No Contact w/Someone Who Travel: No Recent Infectious Disease Expo: No Recent Hopitalizations: No Physical Abuse: No Sexual Abuse: No Mistreated: No Fear: No Immunizations Up To Date Tetanus Booster (TDap): Unknown PED Vaccines UTD: Yes Date of Pneumonia Vaccine: Apr 19, 2012 Date of Influenza Vaccine: Apr 19, 2012 Seasonal Allergies Seasonal Allergies: Yes Past Medical History 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 ) Chronic Ear Infection Hearing Impairment: Hard of Hearing Cancer: No Psychosocial: Yes Anxiety, Depression Integumentary: No Blood Disorders: No Family Medical History Reviewed Nursing Family Hx No Pertinent Family Hx Physical Exam Vital Signs - First Documented 06/28/19 19:31 Temp 36.3 Pulse 83 Resp 18 B/P (MAP) 147/90 Pulse Ox 94 O2 Delivery Room Air Capillary Refill : Less Than 3 Seconds Height: 5'5.00" Weight: 260lbs. 0oz. 117.290147jz; 41.00 BMI Method:Actual General Appearance: WD/WN, no apparent distress Respiratory: chest non-tender, lungs clear, normal breath sounds, no respiratory distress, no accessory muscle use, respiratory distress Cardiovascular: normal peripheral pulses, regular rate, rhythm, no edema, no gallop, no JVD, no murmur Extremities: normal capillary refill Neurologic/Psychiatric: alert, normal mood/affect, oriented x 3 Skin: normal color, warm/dry Progress/Results/Core Measures Suspected Sepsis Recent Fever Within 48 Hours: No Infection Criteria Present: Suspected New Infection New/Unexplained Altered Menta: No Sepsis Screen: No Definite Risk SIRS Temperature: Pulse: 83 Respiratory Rate: 18 Blood Pressure 147 /90 Mean: 109 Results/Orders My Orders Orders - ANDREW SUAREZ Chest Pa/Lat (2 View) (06/28/19 19:37) Rx-Albuterol Inhaler (Rx-Proair) (06/28/19 20:16) Vital Signs/I&O 06/28/19 19:31 Temp 36.3 Pulse 83 Resp 18 B/P (MAP) 147/90 Pulse Ox 94 O2 Delivery Room Air Capillary Refill : Less Than 3 Seconds Blood Pressure Mean: 109 Departure Impression Primary Impression: Bronchitis Disposition: 01 HOME, SELF-CARE Condition: Stable/Unchanged Departure-Patient Inst. Decision time for Depature: 20:08 Referrals: [facility] (PCP) Primary Care Physician DAVID CHOI APRN (Family) Primary Care Physician Patient Instructions: Acute Bronchitis, Adult (DC) Add. Discharge Instructions: Take medications as directed. Follow-up with your primary care provider within 1 week for recheck. Return back to the emergency room for worsening symptoms or concerns as needed. All discharge instructions reviewed with patient and/or family. Voiced understanding. Scripts Azithromycin (Azithromycin) 250 Mg Tablet 250 MG PO UD, #6 TAB TAKE 2 TABLETS ON DAY ONE THEN TAKE 1 TABLET DAILY FOR FOUR MORE DAYS Prov: ANDREW SUAREZ 06/28/19 ANDREW SUAREZ Jun 28, 2019 20:08
[2019-06-28] MEDS ORDERED: RX-ALBUTEROL INHALER (PROAIR) 8.5 GM IH STA (20:16)
[2019-06-28] MEDS ORDERED: AZIT250T12 PO (20:24)
[2019-06-28 20:26] VITALS: BP 147/90
== END 2019-06-28 20:26 | disposition home or self-care (01) ==
LOC: ER 19:29 → EDUNIT# 19:29 → ER 20:26
DX: J40 Bronchitis, not specified as acute or chronic (principal); I10 Essential (primary) hypertension; E78.00 Pure hypercholesterolemia, unspecified; G43.909 Migraine, unspecified, not intractable, without status migrainosus; G40.909 Epilepsy, unspecified, not intractable, without status epilepticus; F41.9 Anxiety disorder, unspecified; F32.9 Major depressive disorder, single episode, unspecified; Z88.1 Allergy status to other antibiotic agents; Z88.0 Allergy status to penicillin; Z88.2 Allergy status to sulfonamides; Z88.8 Allergy status to other drugs, medicaments and biological substances; Z90.49 Acquired absence of other specified parts of digestive tract; Z90.89 Acquired absence of other organs; Z86.012 Personal history of benign carcinoid tumor
CPT/HCPCS: 71046

== ENCOUNTER 2019-07-03 19:55 | Emergency (ER) | payer SELFPAY ==
[~2019-07-03] VITALS: Ht 165 cm; Wt 118.2 kg
--- NOTE | 2019-07-03 20:25 | ED Head Injury ---
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 pt c/o a ORTIZ and neck pain after "maybe hitting head on nightstand" during the seizure. pt has hx of seizure disorder and is on Keppra. pt is a/ox 3, was not incontinent of urine or bowel, and ambulated into ED. Source: patient Exam Limitations: no limitations History of Present Illness Date Seen by Provider: Jul 03, 2019 Time Seen by Provider: 20:24 Initial Comments To ER with reports of seizure about 20 minutes prior to arrival. She has a history of seizure disorder and takes Keppra 1000 mg twice a day. This particular one was brought on by a severe headache. She also has a history of headaches. The headache was worse and because her roommate's daughter decided to spray perfume everywhere Occurred: just prior to arrival Severity: moderate Location: global Method of Injury: unknown Loss of Consciousness: no loss of consciousness Associated Systoms: Headaches Allergies and Home Medications Allergies Coded Allergies: amoxicillin (Verified Allergy, Unknown, 04/06/19) carbamazepine (Verified Allergy, Unknown, 04/06/19) Penicillins (Unverified Adverse Reaction, Intermediate, 04/06/19) Sulfa (Sulfonamide Antibiotics) (Unverified Adverse Reaction, Intermediate, 04/06/19) Home Medications Azithromycin 250 Mg Tablet, 250 MG PO UD TAKE 2 TABLETS ON DAY ONE THEN TAKE 1 TABLET DAILY FOR FOUR MORE DAYS Prescribed by: ANDREW SUAREZ on 06/28/192023 Cefdinir 300 Mg Capsule, 300 MG PO BID Prescribed by: ANDREW SUAREZ on 05/26/19 1132 Fluoxetine HCl 20 Mg Capsule, 20 MG PO DAILY, (Reported) Hydroxyzine HCl 25 Mg Tablet, 25 MG PO Q8H PRN for ANXIETY, (Reported) Levetiracetam 500 Mg Tablet, 500 MG PO BID Prescribed by: ERIKA KRAUSE on 10/09/18 1811 Patient Home Medication List Home Medication List Reviewed: Yes Review of Systems Review of Systems Constitutional: see HPI; No chills, No fever Eyes: No Symptoms Reported Ears, Nose, Mouth, Throat: no symptoms reported Respiratory: no symptoms reported Cardiovascular: no symptoms reported Genitourinary: no symptoms reported Musculoskeletal: no symptoms reported Skin: no symptoms reported Psychiatric/Neurological: See HPI, Headache Past Cttnavs-Xqxcyf-Smvmef Hx Patient Social History Alcohol Use: Denies Use Recreational Drug Use: No Smoking Status: Never a Smoker Type Used: Cigarettes 2nd Hand Smoke Exposure: No Recent Foreign Travel: No Contact w/Someone Who Travel: No Recent Infectious Disease Expo: No Recent Hopitalizations: No Immunizations Up To Date Tetanus Booster (TDap): Unknown PED Vaccines UTD: Yes Date of Pneumonia Vaccine: Apr 19, 2012 Date of Influenza Vaccine: Apr 19, 2012 Seasonal Allergies Seasonal Allergies: Yes Past Medical History 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 ) Chronic Ear Infection Hearing Impairment: Hard of Hearing Cancer: No Psychosocial: Yes Anxiety, Depression Integumentary: No Blood Disorders: No Family Medical History No Pertinent Family Hx Physical Exam Vital Signs Vital Signs - First Documented 07/03/19 20:03 Temp 36.4 Pulse 86 Resp 18 B/P (MAP) 132/83 (99) Pulse Ox 96 O2 Delivery Room Air Capillary Refill : Less Than 3 Seconds Height, Weight, BMI Height: 5'5.00" Weight: 260lbs. 0oz. 117.612770ko; 43.00 BMI Method:Actual General Appearance: WD/WN, no apparent distress HEENT: PERRL/EOMI, normal ENT inspection Neck: non-tender, full range of motion Respiratory: no respiratory distress, no accessory muscle use Gastrointestinal: normal bowel sounds, non tender Extremities: normal range of motion, non-tender Psychiatric: alert, oriented x 3 Crainal Nerves: normal hearing, normal speech, PERRL Skin: normal color, warm/dry Bridger Coma Score Best Eye Response: (4) Open Spontaneously Best Verbal Response: (5) Oriented Best Motor Response: (6) Obeys Commands Bridger Total: 15 Progress/Results/Core Measures Results/Orders My Orders Orders - CELIA HUGHES APRN Ketorolac Injection (Toradol Injection) (07/03/19 20:30) Prochlorperazine Injection (Compazine In (07/03/19 20:30) Diphenhydramine Injection (Benadryl Inje (07/03/19 20:30) Vital Signs/I&O Blood Pressure Mean: 99 Departure Impression Primary Impression: Headache Qualified Codes: R51 - Headache Additional Impression: Hx of seizure disorder Disposition: HOME, SELF-CARE Condition: Stable Departure-Patient Inst. Decision time for Depature: 20:25 Referrals: [facility]/MIGUEL[facility] (PCP) Primary Care Physician DAVID CHOI APRN (Family) Primary Care Physician Patient Instructions: Headache, Adult (DC) Add. Discharge Instructions: 1. Continue current medication regimen, return to ER for any concerns. All discharge instructions reviewed with patient and/or family. Voiced understanding. CELIA HUGHES APRN Jul 03, 2019 20:25
[2019-07-03] MEDS ORDERED: KETOROLAC 30 MG/ML VIAL IVP ONE (20:30)
[2019-07-03] MEDS ORDERED: PROCHLORPERAZINE 10 MG/2ML INJ (COMPAZINE) IV ONE (20:30)
[2019-07-03] MEDS ORDERED: diphenhydrAMINE 50 MG/ML INJ (BENADRYL) IVP ONE (20:30)
[2019-07-03 21:30] VITALS: BP 140/75
== END 2019-07-03 21:30 | disposition home or self-care (01) ==
LOC: EDUNIT# 19:55 → ER 19:56
DX: R51 Headache (principal); G40.909 Epilepsy, unspecified, not intractable, without status epilepticus; I10 Essential (primary) hypertension; E78.00 Pure hypercholesterolemia, unspecified; F41.9 Anxiety disorder, unspecified; F32.9 Major depressive disorder, single episode, unspecified; Z86.69 Personal history of other diseases of the nervous system and sense organs; Z90.5 Acquired absence of kidney; Z88.0 Allergy status to penicillin; Z88.2 Allergy status to sulfonamides; Z88.8 Allergy status to other drugs, medicaments and biological substances; Z90.89 Acquired absence of other organs
CPT/HCPCS: 99283

== ENCOUNTER 2019-07-08 20:10 | Emergency (ER) | payer SELFPAY ==
[~2019-07-08] VITALS: Ht 165.1 cm; Wt 118.2 kg
--- NOTE | 2019-07-08 20:23 | ED Headache ---
General Chief Complaint: Head/Cervical Problems Stated Complaint: SEIZURE X 2/MIGRAINE Source: patient Exam Limitations: no limitations History of Present Illness Date Seen by Provider: Jul 08, 2019 Time Seen by Provider: 20:22 Initial Comments History of seizures and history of migraines, often times the seizures are precipitated by a migraine. She had 2 seizures today trying to deal with a migraine that she's had all day. No head injury no fever no chills. Timing/Duration: 24 hours Severity/Quality: moderate Location: frontal Associated Symptoms: denies symptoms Allergies and Home Medications Allergies Coded Allergies: amoxicillin (Verified Allergy, Unknown, 04/06/19) carbamazepine (Verified Allergy, Unknown, 04/06/19) Penicillins (Unverified Adverse Reaction, Intermediate, 04/06/19) Sulfa (Sulfonamide Antibiotics) (Unverified Adverse Reaction, Intermediate, 04/06/19) Home Medications Azithromycin 250 Mg Tablet, 250 MG PO UD TAKE 2 TABLETS ON DAY ONE THEN TAKE 1 TABLET DAILY FOR FOUR MORE DAYS Prescribed by: ANDREW SUAREZ on 06/28/192023 Cefdinir 300 Mg Capsule, 300 MG PO BID Prescribed by: ANDREW SUAREZ on 05/26/19 1132 Fluoxetine HCl 20 Mg Capsule, 20 MG PO DAILY, (Reported) Hydroxyzine HCl 25 Mg Tablet, 25 MG PO Q8H PRN for ANXIETY, (Reported) Levetiracetam 500 Mg Tablet, 500 MG PO BID Prescribed by: ERIKA KRAUSE on 10/09/18 1811 Patient Home Medication List Home Medication List Reviewed: Yes Review of Systems Review of Systems Constitutional: see HPI Eyes: No Symptoms Reported Ears, Nose, Mouth, Throat: no symptoms reported Respiratory: no symptoms reported Genitourinary: no symptoms reported Musculoskeletal: no symptoms reported Skin: no symptoms reported Psychiatric/Neurological: Headache Past Mjmgmgf-Puedfi-Aaehcv Hx Patient Social History Type Used: Cigarettes 2nd Hand Smoke Exposure: No Recent Foreign Travel: No Contact w/Someone Who Travel: No Recent Hopitalizations: No Immunizations Up To Date Tetanus Booster (TDap): Unknown PED Vaccines UTD: Yes Date of Pneumonia Vaccine: Apr 19, 2012 Date of Influenza Vaccine: Apr 19, 2012 Seasonal Allergies Seasonal Allergies: Yes Past Medical History 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 ) Chronic Ear Infection Hearing Impairment: Hard of Hearing Cancer: No Psychosocial: Yes Anxiety, Depression Integumentary: No Blood Disorders: No Family Medical History No Pertinent Family Hx Physical Exam Vital Signs Capillary Refill : Height, Weight, BMI Height: 5'5.00" Weight: 260lbs. 0oz. 117.260869ob; 43.00 BMI Method:Actual General Appearance: WD/WN, no apparent distress HEENT: PERRL/EOMI, normal ENT inspection Neck: non-tender, full range of motion Respiratory: normal breath sounds, no respiratory distress, no accessory muscle use Gastrointestinal: normal bowel sounds, non tender, soft Extremities: normal range of motion, non-tender Psychiatric: alert, oriented x 3 Crainal Nerves: normal hearing, normal speech, PERRL Skin: normal color, warm/dry Progress/Results/Core Measures Results/Orders My Orders Orders - CELIA HUGHES APRN Ketorolac Injection (Toradol Injection) (07/08/19 20:30) Prochlorperazine Injection (Compazine In (07/08/19 20:30) Diphenhydramine Injection (Benadryl Inje (07/08/19 20:30) Departure Impression Primary Impression: Chronic headaches Qualified Codes: R51 - Headache Disposition: 01 HOME, SELF-CARE Condition: Stable Departure-Patient Inst. Decision time for Depature: 20:23 Referrals: [facility]/ (PCP) Primary Care Physician DAVID CHOI APRN (Family) Primary Care Physician Patient Instructions: Headache, Adult (DC) Add. Discharge Instructions: All discharge instructions reviewed with patient and/or family. Voiced understanding. CELIA HUGHES APRN Jul 08, 2019 20:23
[2019-07-08] MEDS ORDERED: diphenhydrAMINE 50 MG/ML INJ (BENADRYL) IM ONE (20:30)
[2019-07-08] MEDS ORDERED: KETOROLAC 30 MG/ML VIAL IM ONE (20:30)
[2019-07-08] MEDS ORDERED: PROCHLORPERAZINE 10 MG/2ML INJ (COMPAZINE) IM ONE (20:30)
[2019-07-08 20:43] VITALS: BP 145/90
== END 2019-07-08 20:44 | disposition home or self-care (01) ==
LOC: EDUNIT# 20:10 → ER 20:11
DX: R51 Headache (principal); I10 Essential (primary) hypertension; F41.9 Anxiety disorder, unspecified; F32.9 Major depressive disorder, single episode, unspecified; E78.00 Pure hypercholesterolemia, unspecified; G40.909 Epilepsy, unspecified, not intractable, without status epilepticus; Z86.69 Personal history of other diseases of the nervous system and sense organs; Z96.22 Myringotomy tube(s) status; Z90.89 Acquired absence of other organs; Z90.5 Acquired absence of kidney; Z88.0 Allergy status to penicillin; Z88.2 Allergy status to sulfonamides; Z88.8 Allergy status to other drugs, medicaments and biological substances
CPT/HCPCS: 99284

== ENCOUNTER 2019-07-15 16:32 | Emergency (ER) | payer SELFPAY ==
[~2019-07-15] VITALS: Ht 165 cm; Wt 118.0 kg
--- NOTE | 2019-07-15 16:58 | ED Neurological Problem ---
General Chief Complaint: Neurological Problems Stated Complaint: SEIZURE - R KNEE LAC Nursing Triage Note: TO TRIAGE VIA AMB WITHOUT DIFFICULTY. COMPLAINS OF HAVING X3 SEIZURE A DAY FOR THE LAST MONTH. SEEN HER DR LAST MONTH AND KEPPRA WAS INCREASED TO 1000MG PO TID. COMPLAINS OF PAIN RIGHT KNEE FROM FALLING WITH SEIZURE TODAY. Nursing Sepsis Screen: No Definite Risk Source: patient Exam Limitations: no limitations History of Present Illness Date Seen by Provider: Jul 15, 2019 Time Seen by Provider: 17:13 Initial Comments To ER with reports of seizures 3 today, she has a known seizure disorder and takes Keppra, this was increased to 1000 mg 3 times a day last month by her neurologist, states that she had a seizure today and from the library and scraped her right knee. Timing/Duration: constant Severity: moderate Associated Symptoms: denies symptoms Allergies and Home Medications Allergies Coded Allergies: amoxicillin (Verified Allergy, Unknown, 04/06/19) carbamazepine (Verified Allergy, Unknown, 04/06/19) Penicillins (Unverified Adverse Reaction, Intermediate, 04/06/19) Sulfa (Sulfonamide Antibiotics) (Unverified Adverse Reaction, Intermediate, 04/06/19) Home Medications Levetiracetam 1,000 Mg Tablet, 1,000 MG PO TID, (Reported) Patient Home Medication List Home Medication List Reviewed: Yes Review of Systems Review of Systems Constitutional: see HPI Eyes: No Symptoms Reported Ears, Nose, Mouth, Throat: no symptoms reported Respiratory: no symptoms reported Cardiovascular: no symptoms reported Musculoskeletal: see HPI Skin: see HPI Past Rpnqngi-Gouhxj-Nwhejl Hx Patient Social History Alcohol Use: Denies Use Recreational Drug Use: No Smoking Status: Never a Smoker Type Used: Cigarettes 2nd Hand Smoke Exposure: No Recent Foreign Travel: No Contact w/Someone Who Travel: No Recent Infectious Disease Expo: No Recent Hopitalizations: No Immunizations Up To Date Tetanus Booster (TDap): Unknown PED Vaccines UTD: Yes Date of Pneumonia Vaccine: Apr 19, 2012 Date of Influenza Vaccine: Apr 19, 2012 Seasonal Allergies Seasonal Allergies: Yes Past Medical History 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 ) Chronic Ear Infection Hearing Impairment: Hard of Hearing Cancer: No Psychosocial: Yes Anxiety, Depression Integumentary: No Blood Disorders: No Family Medical History No Pertinent Family Hx Physical Exam Vital Signs Vital Signs - First Documented 07/15/19 16:45 Temp 36.8 Pulse 87 Resp 16 B/P (MAP) 138/89 (105) Pulse Ox 97 O2 Delivery Room Air Capillary Refill : Less Than 3 Seconds Height, Weight, BMI Height: 5'5.00" Weight: 260lbs. 0oz. 117.528477mi; 43.00 BMI Method:Actual General Appearance: WD/WN, no apparent distress HEENT: PERRL/EOMI, normal ENT inspection Neck: non-tender, full range of motion Respiratory: no respiratory distress, no accessory muscle use Gastrointestinal: normal bowel sounds, non tender, soft Extremities: normal range of motion, other (right knee is tender with an abrasion but no open wounds or lacerations swelling or deformity. She is able to fully extend the leg at the knee) Neurologic/Psychiatric: alert, normal mood/affect, oriented x 3 Crainal Nerves: normal hearing, normal speech, PERRL Skin: normal color, warm/dry Patient is seen here very frequently, I questioned the true frequency of her seizure disorder, do not suspected to be as frequent as she states. Progress/Results/Core Measures Results/Orders My Orders Orders - CELIA HUGHES APRN Knee, Right, 3 Views (07/15/19 17:12) Vital Signs/I&O 07/15/19 16:45 Temp 36.8 Pulse 87 Resp 16 B/P (MAP) 138/89 (105) Pulse Ox 97 O2 Delivery Room Air Blood Pressure Mean: 105 Departure Impression Primary Impression: Abrasion of right knee Qualified Codes: S80.211A - Abrasion, right knee, initial encounter Disposition: HOME, SELF-CARE Condition: Stable Departure-Patient Inst. Decision time for Depature: 17:58 Referrals: [facility]IGUEL[facility] (PCP) Primary Care Physician DAVID CHOI APRN (Family) Primary Care Physician Patient Instructions: Skin Abrasions Add. Discharge Instructions: 1. Follow-up with your neurologist. Call tomorrow to make an appointment to be seen. If you have persistent pain of the knee into next week the next step may be an MRI, your doctor if the pain persists. All discharge instructions reviewed with patient and/or family. Voiced understanding. CELIA HUGHES APRN Jul 15, 2019 16:58
[2019-07-15] MEDS ORDERED: LEVE100015 PO (16:59)
--- NOTE | 2019-07-15 17:44 | Diagnostic Imaging Report ---
INDICATION: Right knee pain. Fall. FINDINGS: Three views. There are no fractures or dislocations. The articulating surfaces are smooth. Joint space is well maintained. No loose bodies. IMPRESSION: Normal right knee. Dictated by: Dictated on workstation # [id number]
[2019-07-15 18:03] VITALS: BP 138/89
== END 2019-07-15 18:03 | disposition home or self-care (01) ==
LOC: EDUNIT# 16:32 → ER 16:33
DX: S80.211A Abrasion, right knee, initial encounter (principal); G40.909 Epilepsy, unspecified, not intractable, without status epilepticus; I10 Essential (primary) hypertension; E78.00 Pure hypercholesterolemia, unspecified; G43.909 Migraine, unspecified, not intractable, without status migrainosus; F41.9 Anxiety disorder, unspecified; F32.9 Major depressive disorder, single episode, unspecified; Z90.89 Acquired absence of other organs; Z90.5 Acquired absence of kidney; Z88.0 Allergy status to penicillin; Z88.2 Allergy status to sulfonamides; Z88.8 Allergy status to other drugs, medicaments and biological substances; W19.XXXA Unspecified fall, initial encounter
CPT/HCPCS: 73562

== ENCOUNTER 2019-07-18 23:14 | Emergency (ER) | payer SELFPAY ==
[~2019-07-18] VITALS: Ht 175 cm; Wt 100.0 kg
[~2019-07-18 23:14] MED LIST changes: +LEVE100015 PO
--- NOTE | 2019-07-18 23:47 | ED Lower Extremity ---
General Chief Complaint: Lower Extremity Stated Complaint: RT KNEE PAIN Source: patient Exam Limitations: no limitations History of Present Illness Date Seen by Provider: Jul 18, 2019 Time Seen by Provider: 23:37 Initial Comments Patient presents to ER by private conveyance with chief complaint of 10 out of 10 pain in her right knee with some swelling bruising. She had a fall 4 days ago on the sidewalk onto her right knee has some pain and swelling. Skin the ER and had it x-rayed which was normal. Bruise me back to get worse. She says it's continued to hurt despite compression and elevation Tylenol and heat. She cannot use NSAIDs because she only has one kidney. She has an appointment with primary care coming up. No previous history of injury to the knee. Allergies and Home Medications Allergies Coded Allergies: amoxicillin (Verified Allergy, Unknown, 04/06/19) carbamazepine (Verified Allergy, Unknown, 04/06/19) Penicillins (Unverified Adverse Reaction, Intermediate, 04/06/19) Sulfa (Sulfonamide Antibiotics) (Unverified Adverse Reaction, Intermediate, 04/06/19) Home Medications Levetiracetam 1,000 Mg Tablet, 1,000 MG PO TID, (Reported) Patient Home Medication List Home Medication List Reviewed: Yes Review of Systems Constitutional: No chills, No malaise, No weakness Respiratory: No cough, No phlegm Cardiovascular: No chest pain, No edema Past Xbppafi-Xvuken-Hiyvdt Hx Patient Social History Alcohol Use: Denies Use Recreational Drug Use: No Smoking Status: Current Everyday Smoker Type Used: Cigarettes 2nd Hand Smoke Exposure: No Recent Foreign Travel: No Contact w/Someone Who Travel: No Recent Hopitalizations: No Immunizations Up To Date Tetanus Booster (TDap): Unknown PED Vaccines UTD: Yes Date of Pneumonia Vaccine: Apr 19, 2012 Date of Influenza Vaccine: Apr 19, 2012 Seasonal Allergies Seasonal Allergies: Yes Past Medical History 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 ) Chronic Ear Infection Hearing Impairment: Hard of Hearing Cancer: No Psychosocial: Yes Anxiety, Depression Integumentary: No Blood Disorders: No Family Medical History No Pertinent Family Hx Physical Exam Vital Signs Vital Signs - First Documented 07/18/19 23:39 Temp 36.4 Pulse 76 Resp 20 B/P (MAP) 135/81 (99) Pulse Ox 98 O2 Delivery Room Air Capillary Refill : Height, Weight, BMI Height: 5'5.00" Weight: 260lbs. 0oz. 117.804405qh; 43.00 BMI Method:Actual General Appearance: WD/WN, mild distress HEENT: PERRL/EOMI, pharynx normal Cardiovascular: normal peripheral pulses, regular rate, rhythm, no edema Respiratory: no respiratory distress, no accessory muscle use Knees: left knee non-tender, left knee normal inspection, left knee normal range of motion, left knee no evidence of injury; right knee ecchymosis, right knee joint effusion (. Mild), right knee pain (anterior tibial plateau medial and lateral), right knee soft tissue tenderness, right knee other (lacks about 1 0 extension. Normal anterior/posterior drawer test. LCL MCL are tight. No crepitus.) Ankles: bilateral ankle non-tender, bilateral ankle normal inspection, bilateral ankle normal range of motion, bilateral ankle no evidence of injury Progress/Results/Core Measures Results/Orders Vital Signs/I&O 07/18/19 23:39 Temp 36.4 Pulse 76 Resp 20 B/P (MAP) 135/81 (99) Pulse Ox 98 O2 Delivery Room Air Progress Progress Note : Time: 00:14 Progress Note Potential meniscal injury? Physical therapy would be reasonable. Since she can't tolerate NSAIDs we will put her on some steroids. We'll give her some tramadol and let her keep her follow-up appointment in 2 days with primary care. Departure Impression Primary Impression: Sprain of knee Qualified Codes: S83.91XA - Sprain of unspecified site of right knee, initial encounter Disposition: 01 HOME, SELF-CARE Condition: Stable Departure-Patient Inst. Decision time for Depature: 00:15 Referrals: [facility] (PCP) Primary Care Physician DAVID CHOI APRN (Family) Primary Care Physician Patient Instructions: Knee Sprain (DC) Add. Discharge Instructions: I suspect you may have a soft tissue injury of the knee. Typically this can be healed with some time, topical creams, ice for the first 2 or 3 days, Tylenol 1000 g every 8 hours. Since you cannot take an NSAID such as ibuprofen then we'll put you on prednisone one tablet twice a day for the next 5 days. Keep your follow-up appointment with primary care. Continue to wrap your knee and elevate it. Stay active and follow-up with primary care. If you have breakthrough pain use the tramadol 1 tablet every 6 hours as needed. All discharge instructions reviewed with patient and/or family. Voiced understanding. Scripts Prednisone (Prednisone) 20 Mg Tab 20 MG PO BID for 5 Days, #10 TAB 0 Refills Prov: HAMMAD ROACH 07/19/19 Tramadol HCl (Tramadol HCl) 50 Mg Tablet 50 MG PO Q6H PRN for PAIN for 3 Days, #12 TAB 0 Refills Prov: HAMMAD ROACH 07/19/19 HAMMAD ROACH Jul 18, 2019 23:47
[2019-07-19] MEDS ORDERED: PRD20T PO (00:17)
[2019-07-19] MEDS ORDERED: TRAM50TA2 PO (00:17)
[2019-07-19] MEDS ORDERED: RX-TRAMADOL 50 MG (ULTRAM) TAB PPK#4 PO STA (00:19)
[2019-07-19 00:43] VITALS: BP 135/81
== END 2019-07-19 00:43 | disposition home or self-care (01) ==
LOC: EDUNIT# 23:14 → ER 23:16
DX: S83.91XA Sprain of unspecified site of right knee, initial encounter (principal); I10 Essential (primary) hypertension; E78.00 Pure hypercholesterolemia, unspecified; G43.909 Migraine, unspecified, not intractable, without status migrainosus; G40.909 Epilepsy, unspecified, not intractable, without status epilepticus; F41.9 Anxiety disorder, unspecified; F32.9 Major depressive disorder, single episode, unspecified; F17.210 Nicotine dependence, cigarettes, uncomplicated; Z90.89 Acquired absence of other organs; Z90.5 Acquired absence of kidney; Z88.0 Allergy status to penicillin; Z88.2 Allergy status to sulfonamides; Z88.8 Allergy status to other drugs, medicaments and biological substances; W19.XXXA Unspecified fall, initial encounter; Y92.480 Sidewalk as the place of occurrence of the external cause

== ENCOUNTER 2019-07-20 18:26 | Emergency (ER) | payer SELFPAY ==
[~2019-07-20] VITALS: Ht 165 cm; Wt 113.0 kg
[2019-07-20] MEDS ORDERED: FAMOTIDINE 20MG/2ML IV (PEPCID) IVP ONE (18:45)
[2019-07-20] MEDS ORDERED: diphenhydrAMINE 50 MG/ML INJ (BENADRYL) IVP ONE (18:45)
[2019-07-20] MEDS ORDERED: methylPREDNISolone 125 MG (Solu-MEDROL) VIAL IVP ONE (18:45)
--- NOTE | 2019-07-20 18:57 | ED General ---
General Chief Complaint: Allergic Reaction Stated Complaint: FOOD ALLERGY Nursing Triage Note: THE PT IS AMBULATORY TO THE ROOM WITHOUT DIFFICULTY. NO DISTRESS IS SEEN ON ARRIVAL. LOC IS NORMAL FOR THE PT. THE PT STATES THAT SHE IS ALLERGICE TO SHELL FISH. 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 She ate gumbo at the [employer] which she presumed to have shellfish and it. She has a known shellfish allergy. ER staff called the diner and they reported the gumbo was sausage gumbo. Patient has no visible rash except erythema around her neck where she has been scratching. Allergies and Home Medications Allergies Coded Allergies: amoxicillin (Verified Allergy, Unknown, 04/06/19) carbamazepine (Verified Allergy, Unknown, 04/06/19) Penicillins (Unverified Adverse Reaction, Intermediate, 04/06/19) Sulfa (Sulfonamide Antibiotics) (Unverified Adverse Reaction, Intermediate, 04/06/19) Home Medications Levetiracetam 1,000 Mg Tablet, 1,000 MG PO TID, (Reported) Prednisone 20 Mg Tab, 20 MG PO BID Prescribed by: HAMMAD ROACH on 07/19/1916 Tramadol HCl 50 Mg Tablet, 50 MG PO Q6H PRN for PAIN Prescribed by: HAMMAD ROACH on 07/19/1916 Patient Home Medication List Home Medication List Reviewed: Yes Review of Systems Review of Systems Constitutional: no symptoms reported EENTM: see HPI Respiratory: no symptoms reported Cardiovascular: no symptoms reported Gastrointestinal: no symptoms reported Genitourinary: no symptoms reported : No Musculoskeletal: no symptoms reported Skin: see HPI Psychiatric/Neurological: No Symptoms Reported Hematologic/Lymphatic: No Symptoms Reported Immunological/Allergic: no symptoms reported Past Gmtwmwb-Sztwdj-Nvmfls Hx Patient Social History Alcohol Beverage of Choice: Beer Type Used: Cigarettes 2nd Hand Smoke Exposure: No Recent Foreign Travel: No Contact w/Someone Who Travel: No Recent Infectious Disease Expo: No Recent Hopitalizations: No Physical Abuse: No Sexual Abuse: No Mistreated: No Fear: No Immunizations Up To Date Tetanus Booster (TDap): Unknown PED Vaccines UTD: Yes Date of Pneumonia Vaccine: Apr 19, 2012 Date of Influenza Vaccine: Apr 19, 2012 Seasonal Allergies Seasonal Allergies: Yes Past Medical History 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 ) Chronic Ear Infection Hearing Impairment: Hard of Hearing Cancer: No Psychosocial: Yes Anxiety, Depression Integumentary: No Blood Disorders: No Family Medical History No Pertinent Family Hx Physical Exam Vital Signs Vital Signs - First Documented 07/20/19 18:33 Temp 37.1 Pulse 93 B/P (MAP) 158/97 (117) Capillary Refill : Less Than 3 Seconds Height, Weight, BMI Height: 5'5.00" Weight: 260lbs. 0oz. 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 Norm as Tested, Other (mildly anxious about the situation) Skin: Warm/Dry, Erythema (around the neck and upper chest where she has been scratching) Progress/Results/Core Measures Suspected Sepsis Recent Fever Within 48 Hours: No Infection Criteria Present: None New/Unexplained Altered Menta: No Sepsis Screen: No Definite Risk SIRS Temperature: Pulse: 93 Respiratory Rate: Blood Pressure 158 /97 Mean: 117 Results/Orders My Orders Orders - STEF MCKNIGHT MD Ed Iv/Invasive Line Start (07/20/19 18:34) Diphenhydramine Injection (Benadryl Inje (07/20/19 18:45) Famotidine Injection (Pepcid Injection) (07/20/19 18:45) Methylprednisolone Sod Succ (Solu-Medrol (07/20/19 18:45) Medications Given in ED Current Medications Medications Dose Ordered Sig/Kayode Route Start Time Stop Time Status Last Admin Dose Admin Diphenhydramine HCl 25 mg ONCE ONCE IVP 07/20/19 18:45 07/20/19 18:46 DC 07/20/19 18:45 25 MG Famotidine 20 mg ONCE ONCE IVP 07/20/19 18:45 07/20/19 18:46 DC 07/20/19 18:48 20 MG Methylprednisolone Sodium Succinate 125 mg ONCE ONCE IVP 07/20/19 18:45 07/20/19 18:46 DC 07/20/19 18:49 125 MG Vital Signs/I&O 07/20/19 18:33 Temp 37.1 Pulse 93 B/P (MAP) 158/97 (117) Capillary Refill : Less Than 3 Seconds Blood Pressure Mean: 117 Progress Note : Time: 18:59 Progress Note Patient was given Pepcid, Benadryl, and Solu-Medrol by IV route. She had improvement in symptoms. It is doubtful this is a true allergy. No shellfish was actually in the dish consumed. The only area where rash or erythema was visible was in the area patient was scratching around her neck. Patient has Benadryl at home she can use if there are rebound symptoms. Departure Impression Primary Impression: Itching Disposition: 01 HOME, SELF-CARE Condition: Improved Departure-Patient Inst. Decision time for Depature: 18:59 Referrals: [facility]/MIGUELINA (PCP) Primary Care Physician DAVID CHOI APRN (Family) Primary Care Physician Patient Instructions: Food Allergy Add. Discharge Instructions: Your symptoms are not likely due to shellfish allergy as there were no seafood products in the elbow prepared at [place]. Keep some Benadryl (diphenhydramine) on hand in case itching returns. You may take up to 50 mg of Benadryl every 4 hours as needed. Return to care if you have worsening symptoms not responsive to Benadryl. All discharge instructions reviewed with patient and/or family. Voiced u nderstanding. STEF MCKNIGHT MD Jul 20, 2019 18:57
[2019-07-20 19:08] VITALS: BP 158/77
== END 2019-07-20 19:10 | disposition home or self-care (01) ==
LOC: EDUNIT# 18:26 → ER 18:28
DX: L29.9 Pruritus, unspecified (principal); I10 Essential (primary) hypertension; E78.00 Pure hypercholesterolemia, unspecified; G43.909 Migraine, unspecified, not intractable, without status migrainosus; G40.909 Epilepsy, unspecified, not intractable, without status epilepticus; F41.9 Anxiety disorder, unspecified; F32.9 Major depressive disorder, single episode, unspecified; Z88.0 Allergy status to penicillin; Z88.2 Allergy status to sulfonamides; Z88.8 Allergy status to other drugs, medicaments and biological substances; Z90.89 Acquired absence of other organs; Z90.5 Acquired absence of kidney

== ENCOUNTER 2019-07-23 20:55 | Emergency (ER) | payer SELFPAY ==
[~2019-07-23] VITALS: Ht 165.1 cm; Wt 118.2 kg
[2019-07-23] MEDS ORDERED: LACTATED RINGERS 1,000 ML IV ONE (21:12)
[2019-07-23 21:19] LABS: BILIRUBIN,URINE NEGATIVE (NEGATIVE); CLARITY,URINE SLIGHTLY CLOUDY; COLOR,URINE YELLOW; GLUCOSE, URINE (UA) NEGATIVE (NEGATIVE); KETONES,URINE NEGATIVE (NEGATIVE); LEUKOCYTE ESTERASE ,URINE 2+ (NEGATIVE); NITRITE,URINE NEGATIVE (NEGATIVE); PH,URINE 7 (5-9); PROTEIN,URINE NEGATIVE (NEGATIVE); UROBILINOGEN,URINE NORMAL (NORMAL)
[2019-07-23 21:25] LABS: BASOPHILS # (AUTO) 0.1 10^3/uL (0.0-0.1); BASOPHILS % (AUTO) 1 % (0-10); EOSINOPHILS % (AUTO) 0 % (0-10); HEMATOCRIT 40 % (35-52); HEMOGLOBIN 13.5 G/DL (11.5-16.0); LYMPHOCYTES # (AUTO) 2.4 X 10^3 (1.0-4.0); LYMPHOCYTES % (AUTO) 28 % (12-44); MEAN CORPUSCULAR HEMOGLOBIN 29 PG (25-34); MEAN CORPUSCULAR HGB CONC 34 G/DL (32-36); MEAN CORPUSCULAR VOLUME 86 FL (80-99); MEAN PLATELET VOLUME 10.6 FL (7.4-10.4); MONOCYTES # (AUTO) 0.7 X 10^3 (0.0-1.0); MONOCYTES % (AUTO) 8 % (0-12); NEUTROPHILS # (AUTO) 5.5 X 10^3 (1.8-7.8); NEUTROPHILS % (AUTO) 64 % (42-75); PLATELET COUNT 269 10^3/uL (130-400); RED CELL DISTRIBUTION WIDTH 12.9 % (10.0-14.5); WHITE BLOOD COUNT 8.7 10^3/uL (4.3-11.0)
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
[2019-07-23 21:28] LABS: AMORPHOUS SEDIMENT,UR FEW AMOR PHOSPHATE /LPF; BACTERIA,URINE FEW /HPF
[2019-07-23] MEDS ORDERED: ONDANSETRON 4 MG/2 ML (SDV) Z0FRAN IVP ONE (21:30)
[2019-07-23 21:32] LABS: AMPHETAMINE SCREEN, URINE NEGATIVE (NEGATIVE); BARBITURATE SCREEN URINE NEGATIVE (NEGATIVE); BENZODIAZEPINES SCREEN URINE NEGATIVE (NEGATIVE); CANNABINOID SCREEN, URINE NEGATIVE (NEGATIVE); COCAINE SCREEN URINE NEGATIVE (NEGATIVE); METHADONE STAT NEGATIVE (NEGATIVE); METHAMPHETAMINE SCREEN URINE S NEGATIVE (NEGATIVE); OPIATE SCREEN URINE NEGATIVE (NEGATIVE); OXYCODONE STAT NEGATIVE (NEGATIVE); PROPOXYPHENE STAT NEGATIVE (NEGATIVE); TRICYCLIC ANTIDEPRESSANTS SCRE NEGATIVE (NEGATIVE)
[2019-07-23 21:45] LABS: ALANINE AMINOTRANSFERASE 15 U/L (0-55); ALKALINE PHOSPHATASE 74 U/L (40-136); BILIRUBIN,TOTAL 0.2 MG/DL (0.1-1.0); BUN/CREATININE RATIO 22; CALCIUM 9.2 MG/DL (8.5-10.1); CARBON DIOXIDE 24 MMOL/L (21-32); CHLORIDE 108 MMOL/L (98-107); CREATINE KINASE 24 U/L (29-168); CREATININE SERUM 0.77 MG/DL (0.60-1.30); GFR ESTIMATED > 60; GLUCOSE 117 MG/DL (70-105); MAGNESIUM 2.1 MG/DL (1.6-2.4); POTASSIUM 3.9 MMOL/L (3.6-5.0); SODIUM 142 MMOL/L (135-145); TOTAL PROTEIN 6.8 GM/DL (6.4-8.2)
[2019-07-23 22:04] LABS: ACETAMINOPHEN < 10 UG/ML (10-30)
[2019-07-23 22:05] LABS: CREATINE KINASE MB 0.4 NG/ML (<6.6); TSH (THYROID ANALYZER) 1.25 UIU/ML (0.35-4.94)
[2019-07-23] MEDS ORDERED: ONDA4TAB11 PO (22:12)
[2019-07-23] MEDS ORDERED: RX-ONDANSETRON 4 MG ODT (ZOFRAN) PPK #4 PO STA (22:12)
[2019-07-23] MEDS ORDERED: NITR-65 PO (22:12)
[2019-07-23] MEDS ORDERED: NITROFURANTOIN 100 MG (MACROBID) CAPSULE PO ONE (22:15)
[2019-07-23 22:44] VITALS: BP 153/86
== END 2019-07-23 22:44 | disposition home or self-care (01) ==
LOC: EDUNIT# 20:55 → ER 20:56
DX: G40.909 Epilepsy, unspecified, not intractable, without status epilepticus (principal); N39.0 Urinary tract infection, site not specified; I10 Essential (primary) hypertension; E78.00 Pure hypercholesterolemia, unspecified; G43.909 Migraine, unspecified, not intractable, without status migrainosus; F41.9 Anxiety disorder, unspecified; F32.9 Major depressive disorder, single episode, unspecified; Z90.5 Acquired absence of kidney; Z88.0 Allergy status to penicillin; Z88.8 Allergy status to other drugs, medicaments and biological substances; Z88.2 Allergy status to sulfonamides; Z87.891 Personal history of nicotine dependence; Z90.89 Acquired absence of other organs
CPT/HCPCS: 36415; 80053; 80306; 80320; 80329; 81000; 82550; 82553; 83735; 83874; 84443; 84703; 85025; 87088; 93041

== ENCOUNTER 2019-07-26 19:54 | Emergency (ER) | payer OTHER ==
[~2019-07-26] VITALS: Ht 162 cm; Wt 118.2 kg
[~2019-07-26 19:54] MED LIST changes: +ONDA4TAB11 PO
--- NOTE | 2019-07-26 19:57 | ED Neurological Problem ---
General Stated Complaint: SEIZURE Source: patient Exam Limitations: no limitations History of Present Illness Date Seen by Provider: Jul 26, 2019 Time Seen by Provider: 19:56 Initial Comments To ER by private vehicle with reports of seizures "all day today". She was seen via telemedicine conference at [facility] last week at [facility] by a neurologist from [facility], a new anti-seizure medication was added to her regimen, she is already on Keppra. States she cannot go home and relax because everyone is "fighting yelling and screaming". Timing/Duration: other Severity: moderate Associated Symptoms: seizures Allergies and Home Medications Allergies Coded Allergies: amoxicillin (Verified Allergy, Unknown, 04/06/19) carbamazepine (Verified Allergy, Unknown, 04/06/19) shellfish derived (Verified Allergy, Unknown, 07/20/19) Penicillins (Unverified Adverse Reaction, Intermediate, 04/06/19) Sulfa (Sulfonamide Antibiotics) (Unverified Adverse Reaction, Intermediate, 04/06/19) Home Medications Levetiracetam 1,000 Mg Tablet, 1,000 MG PO TID, (Reported) Nitrofurantoin Monohyd/M-Cryst 100 Mg Capsule, 100 MG PO BID Prescribed by: SHAQ OLSEN on 07/23/192211 Ondansetron 4 Mg Tab.rapdis, 4 MG PO Q4H Prescribed by: SHAQ OLSEN on 07/23/192211 Prednisone 20 Mg Tab, 20 MG PO BID Prescribed by: HAMMAD ROACH on 07/19/1916 Tramadol HCl 50 Mg Tablet, 50 MG PO Q6H PRN for PAIN Prescribed by: HAMMAD ROACH on 07/19/1916 Patient Home Medication List Home Medication List Reviewed: Yes Review of Systems Review of Systems Constitutional: see HPI Eyes: No Symptoms Reported Ears, Nose, Mouth, Throat: no symptoms reported Respiratory: no symptoms reported Cardiovascular: no symptoms reported Genitourinary: no symptoms reported Musculoskeletal: no symptoms reported Skin: no symptoms reported Past Vhodkor-Wmsevn-Rqngwb Hx Patient Social History Alcohol Beverage of Choice: Beer Type Used: Cigarettes 2nd Hand Smoke Exposure: No Recent Foreign Travel: No Contact w/Someone Who Travel: No Recent Hopitalizations: No Immunizations Up To Date Tetanus Booster (TDap): Unknown PED Vaccines UTD: Yes Date of Pneumonia Vaccine: Apr 19, 2012 Date of Influenza Vaccine: Apr 19, 2012 Seasonal Allergies Seasonal Allergies: Yes Past Medical History Surgeries: Yes Adenoidectomy, Ear Surgery, Nephrectomy, Renal, Tonsillectomy Respiratory: No Cardiac: Yes High Cholesterol, Hypertension Neurological: Yes Headaches /Migraines, Seizure Disorder Reproductive Disorders: No Genitourinary: Yes Bladder Infection Gastrointestinal: No Musculoskeletal: No Endocrine: No HEENT: Yes Chronic Ear Infection Hearing Impairment: Hard of Hearing Cancer: No Psychosocial: Yes Anxiety, Depression Integumentary: No Blood Disorders: No Family Medical History No Pertinent Family Hx Physical Exam Vital Signs Capillary Refill : Height, Weight, BMI Height: 5'5.00" Weight: 260lbs. 0oz. 117.391606ip; 43.00 BMI Method:Actual General Appearance: WD/WN, no apparent distress, obese (alert and oriented pleasant not postictal) HEENT: PERRL/EOMI, normal ENT inspection Respiratory: normal breath sounds, no respiratory distress Cardiovascular: regular rate, rhythm, no murmur Gastrointestinal: normal bowel sounds, non tender, soft Neurologic/Psychiatric: no motor/sensory deficits, alert, normal mood/affect, oriented x 3 Crainal Nerves: normal hearing, normal speech, PERRL Skin: normal color, warm/dry Departure Impression Primary Impression: Hx of seizure disorder Disposition: 01 HOME, SELF-CARE Condition: Stable Departure-Patient Inst. Decision time for Depature: 19:57 Referrals: [facility]/MIGUELINA (PCP) Primary Care Physician DAVID CHOI APRN (Family) Primary Care Physician Patient Instructions: NO INSTRUCTIONS GIVEN CELIA HUGHES APRN Jul 26, 2019 19:57
[2019-07-26 20:03] VITALS: BP 135/85
== END 2019-07-26 20:03 | disposition home or self-care (01) ==
LOC: EDUNIT# 19:54 → ER 19:55
DX: G40.909 Epilepsy, unspecified, not intractable, without status epilepticus (principal); I10 Essential (primary) hypertension; E78.00 Pure hypercholesterolemia, unspecified; G43.909 Migraine, unspecified, not intractable, without status migrainosus; F41.9 Anxiety disorder, unspecified; F32.9 Major depressive disorder, single episode, unspecified; Z88.0 Allergy status to penicillin; Z88.2 Allergy status to sulfonamides; Z88.8 Allergy status to other drugs, medicaments and biological substances; Z90.89 Acquired absence of other organs; Z90.5 Acquired absence of kidney
CPT/HCPCS: 99281

== ENCOUNTER 2019-07-27 22:28 | Emergency (ER) | payer OTHER ==
[2019-07-28] MEDS ORDERED: ONDANSETRON 4 MG (ZOFRAN) ORAL DISSOLVE TAB SL STA (00:19)
--- NOTE | 2019-07-28 00:39 | ED GI ---
General Chief Complaint: Abdominal/GI Problems Stated Complaint: VOMITTING Source of Information: Patient, Old Records History of Present Illness Date Seen by Provider: Jul 28, 2019 Time Seen by Provider: 00:15 Initial Comments PT ARRIVES VIA POV FROM HOME STATES "I'VE BEEN CONSTIPATED SINCE 10 PM FRIDAY NIGHT" STATES SHE HAS BEEN STRAINING TO HAVE BM "BECAUSE IT FEELS LIKE IT'S READY TO COME OUT BUT IT WON'T", STATES NOW HER RECTUM IS HURTING AND IS STARTING TO BLEED A LITTLE BIT WHEN STRAINING STATES TONIGHT SHE HAS HAD NAUSEA AND "VOMITED" X 1--"A LITTLE BIT OF FOAM" STATES SHE HAS DRANK PRUNE JUICE, APPLE JUICE, AND ATE APPLESAUCE WITHOUT RELIEF. HAS NOT TAKEN OR USED ANY OTC MEDICATIONS FOR CONSTIPATION, OF ANY KIND--NO ORAL MEDICATIONS, NO SUPPOSITORIES, NO ENEMAS, ETC. NO ABDOMINAL PAIN HAS NOT SOUGHT CARE UNTIL TODAY FOR THIS PT WITH MULTITUDE OF VISITS--THIS IS HER 4TH VISIT SINCE 07/20/19--DID NOT MENTION THIS AT ANY OF HER OTHER ER VISITS THIS WEEK PT USUALLY PRESENTS WITH SEIZURE RELATED COMPLAINTS SEE OLD CHARTS FOR DETAILS PCP: HEIDY BLANCAS JIMBO Allergies and Home Medications Allergies Coded Allergies: amoxicillin (Verified Allergy, Unknown, 04/06/19) carbamazepine (Verified Allergy, Unknown, 04/06/19) shellfish derived (Verified Allergy, Unknown, 07/20/19) Penicillins (Unverified Adverse Reaction, Intermediate, 04/06/19) Sulfa (Sulfonamide Antibiotics) (Unverified Adverse Reaction, Intermed iate, 04/06/19) Home Medications Levetiracetam 1,000 Mg Tablet, 1,000 MG PO TID, (Reported) Nitrofurantoin Monohyd/M-Cryst 100 Mg Capsule, 100 MG PO BID Prescribed by: SHAQ OLSEN on 07/23/192211 Ondansetron 4 Mg Tab.rapdis, 4 MG PO Q4H Prescribed by: SHAQ OLSEN on 07/23/192211 Prednisone 20 Mg Tab, 20 MG PO BID Prescribed by: HAMMAD ROACH on 07/19/1916 Tramadol HCl 50 Mg Tablet, 50 MG PO Q6H PRN for PAIN Prescribed by: HAMMAD ROACH on 07/19/1916 Patient Home Medication List Home Medication List Reviewed: Yes Review of Systems Review of Systems Constitutional: no symptoms reported Gastrointestinal: See HPI; Denies Abdominal Pain; Constipated, Nausea, Vomiting Genitourinary: Other (LMP 07/22/19--NORMAL, NO CONTROL) Past Zocvtpw-Pafsae-Soelcr Hx Past Med/Social Hx: Reviewed and Corrections made Patient Social History Alcohol Beverage of Choice: Beer Recreational Drug Use: No Smoking Status: Former Smoker (QUIT 2010) Type Used: Cigarettes 2nd Hand Smoke Exposure: No Recent Foreign Travel: No Contact w/Someone Who Travel: No Recent Hopitalizations: No Immunizations Up To Date Tetanus Booster (TDap): Unknown PED Vaccines UTD: Yes Date of Pneumonia Vaccine: Apr 19, 2012 Date of Influenza Vaccine: Apr 19, 2012 Seasonal Allergies Seasonal Allergies: Yes Past Medical History Surgeries: Yes (BMT'S 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 NO SEIZURES FOR YEARS, ADN THEN STARTED HAVING SEIZURES AGAIN 10/2017, AND HAS BEEN BACK ON SEIZURE MEDICATION SINCE THEN. HISTORICALLY, THESE HAVE BEEN ASSOCIATED WITH MIGRAINES. 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 ) Chronic Ear Infection Hearing Impairment: Hard of Hearing Cancer: No Psychosocial: Yes Anxiety, Depression Integumentary: No Blood Disorders: No Family Medical History No Pertinent Family Hx Physical Exam Vital Signs Vital Signs - First Documented 07/28/19 07/28/19 00:15 01:43 Temp 37.0 Pulse 90 Resp 22 B/P (MAP) 150/75 (100) Pulse Ox 97 O2 Delivery Room Air Capillary Refill : Height/Weight/BMI Height: 5'5.00" Weight: 260lbs. 0oz. 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, no motor/sensory deficits, alert, normal mood/affect, oriented x 3 Skin: normal color, warm/dry Progress/Results/Core Measures Results/Orders My Orders Orders - SHAQ OLSEN DO Acute Abd Series (07/28/19 00:19) Ondansetron Oral Dissolve Tab (Zofran (07/28/19 00:19) Vital Signs/I&O 07/28/19 07/28/19 00:15 01:43 Temp 37.0 37.0 Pulse 90 80 Resp 22 18 B/P (MAP) 150/75 (100) 143/72 (100) Pulse Ox 97 O2 Delivery Room Air Room Air Progress Progress Note : Progress Note NO VOMITING DURING ER STAY SMILING, LAUGHING AT DISMISSAL ON REVIEW OF RECORDS, PT HAS BEEN GIVEN RX FOR ZOFRAN A FEW DAYS AGO, STATES SHE HAS NOT TAKEN ANY. ADVISED HER THAT SHE CAN TAKE IT NEEDED FOR NAUSEA. Diagnostic Imaging Comments ABDOMEN XRAYS--MODERATE AMOUNT OF STOOL IN COLON AND RECTUM. NO OBSTRUCTION PENDING RADIOLOGIST REVIEW Reviewed: Reviewed by Me Departure Impression Primary Impression: Constipation Additional Impression: Nausea and vomiting Disposition: HOME, SELF-CARE Condition: Improved Departure-Patient Inst. Referrals: [facility] (PCP) Primary Care Physician DAVID CHOI APRN (Family) Primary Care Physician Patient Instructions: Constipation, Adult (DC) Add. Discharge Instructions: CLEAR LIQUIDS--WATER, BROTH, JELLO, GATORADE NO FOOD UNTIL YOUR STOOLS ARE CLEAR, THEN BEGIN A HIGH FIBER DIET TAKE MIRALAX--1 CAPUFUL IN 8 OZ OF WATER EVERY HOUR UNTIL YOUR STOOLS ARE CLEAR, THEN USE ONCE A DAY EVERY DAY DULCOLAX SUPPOSITORIES AND FLEET'S ENEMAS UNTIL YOU HAVE A BM USE OVER THE COUNTER PREPARATION H FOR RECTAL DISCOMFORT TAKE YOUR ZOFRAN EVERY 4-6 HOURS NEEDED FOR NAUSEA--THIS WAS PRESCRIBED TO YOU ON 07/23/19 FOLLOW UP WITH [facility] THIS WEEK FOR FURTHER CARE--CALL IN AM FOR APPOINTMENT All discharge instructions reviewed with patient and/or family. Voiced understanding. SHAQ OLSEN DO Jul 28, 2019 00:39
[2019-07-28 01:43] VITALS: BP 143/72
--- NOTE | 2019-07-28 08:16 | Diagnostic Imaging Report ---
INDICATION: Constipation. COMPARISON: 06/28/2019 FINDINGS: Supine and upright views of the abdomen show a nondistended bowel gas pattern. Moderate colonic air and stool is noted. No abnormal air fluid levels or free intraperitoneal air is seen. No abnormal extraosseous calcifications are seen. Bony and soft tissue structures are within normal limits. No organomegaly is identified. Accompanying upright chest shows normal heart size and pulmonary vascularity. The lungs are well aerated and clear. The mediastinum is normal in appearance. IMPRESSION: 1. No bowel obstruction or free air. 2. No acute cardiopulmonary process. 3. Moderate chronic air and stool. Please correlate for underlying constipation. Dictated by: Dictated on workstation # [id number]
== END 2019-07-28 01:44 | disposition home or self-care (01) ==
LOC: EDUNIT# 22:28 → ER 22:29
DX: K59.00 Constipation, unspecified (principal); R11.2 Nausea with vomiting, unspecified; I10 Essential (primary) hypertension; E78.00 Pure hypercholesterolemia, unspecified; G43.909 Migraine, unspecified, not intractable, without status migrainosus; G40.909 Epilepsy, unspecified, not intractable, without status epilepticus; F41.9 Anxiety disorder, unspecified; F32.9 Major depressive disorder, single episode, unspecified; Z88.0 Allergy status to penicillin; Z88.2 Allergy status to sulfonamides; Z88.8 Allergy status to other drugs, medicaments and biological substances; Z87.891 Personal history of nicotine dependence; Z90.5 Acquired absence of kidney; Z90.89 Acquired absence of other organs
CPT/HCPCS: 74022

== ENCOUNTER → 2019-07-30 | Outpatient (CLI) | payer OTHER ==
--- NOTE | 2019-07-30 09:48 | Diagnostic Imaging Report ---
PROCEDURE: MR imaging of the brain without contrast. TECHNIQUE: Multiplanar, multisequence MR imaging of the brain was performed without contrast. INDICATION: Increasing seizures. COMPARISON: No prior studies are available for comparison. FINDINGS: The ventricles and sulci are within normal limits. No diffusion restriction is identified. The normal expected flow-voids within the carotid siphons are seen. No acute intra-axial or extra-axial hemorrhage is detected. Corpus callosum is unremarkable. The sella and parasellar structures are unremarkable. Bilateral hippocampal formations are unremarkable for abnormal signal or volume loss. No definite lerner matter heterotopia is seen. IMPRESSION: Unremarkable noncontrast MRI of the brain. Dictated by: Dictated on workstation # [id number]
== END ==
LOC: RAD 08:34
PROVIDERS: ATTEND Nurse Practitioner Family
DX: R56.9 Unspecified convulsions (principal)
CPT/HCPCS: 70551

== ENCOUNTER 2019-08-15 10:35 | Emergency (ER) | payer OTHER ==
[~2019-08-15] VITALS: Ht 165.5 cm; Wt 116.0 kg
--- NOTE | 2019-08-15 11:45 | ED Neurological Problem ---
General Chief Complaint: Neurological Problems Stated Complaint: SEIZURES/R LEG LAC Nursing Triage Note: AMB TO ED REPORTS HAS PMH OF SEIZURE HAS BEEN HAVING SEIZURES ALL THE AM LAST ONE WAS AT 10A PATIENT NOT POSTECTIAL ON ADMIT REPORTS THAT HER ROOMMATE WITNESSED THE SEIZURE. HAS HAD A TELCONFERENCE WITH A NEUROLOGIST IN AND TOLD HER TO KEEP A LOG OF HER SEIZURES. ALSO THINKS SHE MAY OF BROKE OPEN A OLD LACERATION. NO OPEN LACERATION NOTED ON BACK OF LEG Nursing Sepsis Screen: No Definite Risk History of Present Illness Date Seen by Provider: Aug 15, 2019 Time Seen by Provider: 11:15 Initial Comments 23 year old female presents for 2-3 focal seizures yesterday and approximately 11 focal seizures overnight. Most were not witnessed, but her roommate found her out of bed lying on the floor. She reports 2 times, she had to change her underwear because of urinary incontinence. She is on Kepra 1,000 mg bid and Hydroxyzine 25 mg she only takes this once a day but it is prescribed TID. Pt saw a NEUROLOGIST approximately 2 weeks ago, ORDERED AN MRI OF THE BRAIN, WAS COMPLETED AND SHOWED NO ABNORMALITY. NEUROLOGIST was via Telehealth at [facility], he discussed starting new seizure medicine, possibly Topamax but it was never prescribed or started. She does not appear post ictal, she is ambulatory, denies fatigue or weakness. No headache at this time. She was unable to sleep last night, due to noisy neighbors. Timing/Duration: 24 hours Severity: mild Associated Symptoms: No confusion, No fatigue, No fever/chills; insomnia; No loss of consciousness, No muscle spasms, No nausea/vomiting, No numbness in legs/feet, No paresthesia, No ringing in ears; seizures; No sleepy, No slurred speech, No tingling in legs/feet, No trouble walking, No vision changes, No weakness Allergies and Home Medications Allergies Coded Allergies: amoxicillin (Verified Allergy, Unknown, 04/06/19) carbamazepine (Verified Allergy, Unknown, 04/06/19) shellfish derived (Verified Allergy, Unknown, 07/20/19) Penicillins (Unverified Adverse Reaction, Intermediate, 04/06/19) Sulfa (Sulfonamide Antibiotics) (Unverified Adverse Reaction, Intermediate, 04/06/19) Home Medications Ciprofloxacin HCl 500 Mg Tablet, 500 MG PO BID Prescribed by: ERIKA KRAUSE on 08/15/19 1236 Levetiracetam 1,000 Mg Tablet, 1,000 MG PO TID, (Reported) Nitrofurantoin Monohyd/M-Cryst 100 Mg Capsule, 100 MG PO BID Prescribed by: SHAQ OLSEN on 07/23/192211 Ondansetron 4 Mg Tab.rapdis, 4 MG PO Q4H Prescribed by: SHAQ OLSEN on 07/23/192211 Tramadol HCl 50 Mg Tablet, 50 MG PO Q6H PRN for PAIN Prescribed by: HAMMAD ROACH on 07/19/19 0017 Patient Home Medication List Home Medication List Reviewed: Yes Review of Systems Review of Systems Constitutional: no symptoms reported, see HPI Psychiatric/Neurological: See HPI; Denies Anxiety, Denies Depressed, Denies Emotional Problems, Denies Headache, Denies Numbness; [place] Seizures; Denies Tingling, Denies Tonic Clonic Seizures, Denies Unable to Move Lower Ext, Denies Unable to Move Upper Ext, Denies Weakness All Other Systems Reviewed Negative Unless Noted: Yes Past Fpvqtgi-Ozxxaz-Jepudl Hx Past Med/Social Hx: Reviewed Nursing Past Med/Soc Hx Patient Social History Alcohol Use: Denies Use Number of Drinks Today: AA Alcohol Beverage of Choice: Beer Recreational Drug Use: No Smoking Status: Never a Smoker Type Used: Cigarettes 2nd Hand Smoke Exposure: No Recent Foreign Travel: No Contact w/Someone Who Travel: No Recent Infectious Disease Expo: No Recent Hopitalizations: No Immunizations Up To Date Tetanus Booster (TDap): Unknown PED Vaccines UTD: Yes Date of Pneumonia Vaccine: Apr 19, 2012 Date of Influenza Vaccine: Apr 19, 2012 Seasonal Allergies Seasonal Allergies: Yes Past Medical History Surgeries: Yes Adenoidectomy, Ear Surgery, Nephrectomy, Renal, Tonsillectomy Respiratory: No Cardiac: Yes High Cholesterol, Hypertension Neurological: Yes Headaches /Migraines, Seizure Disorder Reproductive Disorders: No Genitourinary: Yes Bladder Infection Gastrointestinal: No Musculoskeletal: No Endocrine: No HEENT: Yes Chronic Ear Infection Hearing Impairment: Hard of Hearing Cancer: No Psychosocial: Yes Anxiety, Depression Integumentary: No Blood Disorders: No Family Medical History No Pertinent Family Hx Physical Exam Vital Signs Vital Signs - First Documented 08/15/19 10:43 Temp 37.5 Pulse 77 Resp 18 B/P (MAP) 145/85 (105) Pulse Ox 97 O2 Delivery Room Air Capillary Refill : Less Than 3 Seconds Height, Weight, BMI Height: 5'5.00" Weight: 260lbs. 0oz. 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 No active bleeding.) Progress/Results/Core Measures Results/Orders Lab Results Laboratory Tests Test 08/15/19 11:27 Range/Units Urine Color YELLOW Urine Clarity SL CLOUDY Urine pH 6 5-9 Urine Specific Lottie 1.015 L 1.016-1.022 Urine Protein 2+ H NEGATIVE Urine Glucose (UA) NEGATIVE NEGATIVE Urine Ketones NEGATIVE NEGATIVE Urine Nitrite NEGATIVE NEGATIVE Urine Bilirubin NEGATIVE NEGATIVE Urine Urobilinogen NORMAL NORMAL MG/DL Urine Leukocyte Esterase 3+ H NEGATIVE Urine RBC (Auto) 5+ H NEGATIVE Urine RBC NONE /HPF Urine WBC 25-50 H /HPF Urine Squamous Epithelial Cells 5-10 /HPF Urine Renal Epithelial Cells 0-2 /HPF Urine Crystals PRESENT H /LPF Urine Bacteria LARGE H /HPF Urine Casts NONE /LPF Urine Mucus NEGATIVE /LPF Urine Culture Indicated YES Urine Opiates Screen NEGATIVE NEGATIVE Urine Oxycodone Screen NEGATIVE NEGATIVE Urine Methadone Screen NEGATIVE NEGATIVE Urine Propoxyphene Screen NEGATIVE NEGATIVE Urine Barbiturates Screen NEGATIVE NEGATIVE Ur Tricyclic Antidepressants Screen NEGATIVE NEGATIVE Urine Phencyclidine Screen NEGATIVE NEGATIVE Urine Amphetamines Screen NEGATIVE NEGATIVE Urine Methamphetamines Screen NEGATIVE NEGATIVE Urine Benzodiazepines Screen NEGATIVE NEGATIVE Urine Cocaine Screen NEGATIVE NEGATIVE Urine Cannabinoids Screen NEGATIVE NEGATIVE My Orders Orders - ERIKA KRAUSE Drug Screen Stat (Urine) (08/15/19 11:36) Ua Culture If Indicated (08/15/19 11:36) Urine Culture (08/15/19 11:27) Vital Signs/I&O 08/15/19 08/15/19 10:43 12:40 Temp 37.5 Pulse 77 77 Resp 18 18 B/P (MAP) 145/85 (105) 146/85 Pulse Ox 97 98 O2 Delivery Room Air Blood Pressure Mean: 105 Departure Impression Primary Impression: Focal seizures Additional Impression: UTI (urinary tract infection) Qualified Codes: N30.01 - Acute cystitis with hematuria Disposition: HOME, SELF-CARE Condition: Improved Departure-Patient Inst. Decision time for Depature: 12:10 Referrals: [facility] (PCP) Primary Care Physician DAVID CHOI APRN (Family) Primary Care Physician Patient Instructions: Seizures, Adult (DC), Urinary Tract Infection, Adult (DC) Add. Discharge Instructions: Continue to take your Kepra ordered. Take the hydroxyzine 1 tablet 3 times daily as directed. Increase water intake. Drink 1 glass of cranberry juice or eat 1 cup of fresh blueberries daily. Empty bladder every 2 hours while awake. Take antibiotics as prescribed. Go to [facility] tomorrow for follow-up at their walk-in clinic and an appointment with your primary care provider. Schedule a follow-up appointment with the neurologist to review additional medication like her for your seizures. Clean wound to lower leg with soap and water, and apply triple antibiotic ointment twice daily. Return to the emergency department for continued seizure problems, new neurological deficits, or concerns. All discharge instructions reviewed with patient and/or family. Voiced understanding. Scripts Ciprofloxacin HCl (Ciprofloxacin HCl) 500 Mg Tablet 500 MG PO BID, #6 TAB 0 Refills Prov: NELIDAERIKA ALAN 08/15/19 NELIDAERIKA Aug 15, 2019 11:44
[2019-08-15 11:56] LABS: AMPHETAMINE SCREEN, URINE NEGATIVE (NEGATIVE); BARBITURATE SCREEN URINE NEGATIVE (NEGATIVE); BENZODIAZEPINES SCREEN URINE NEGATIVE (NEGATIVE); CANNABINOID SCREEN, URINE NEGATIVE (NEGATIVE); COCAINE SCREEN URINE NEGATIVE (NEGATIVE); METHADONE STAT NEGATIVE (NEGATIVE); METHAMPHETAMINE SCREEN URINE S NEGATIVE (NEGATIVE); OPIATE SCREEN URINE NEGATIVE (NEGATIVE); OXYCODONE STAT NEGATIVE (NEGATIVE); PROPOXYPHENE STAT NEGATIVE (NEGATIVE); TRICYCLIC ANTIDEPRESSANTS SCRE NEGATIVE (NEGATIVE)
[2019-08-15 12:16] LABS: BILIRUBIN,URINE NEGATIVE (NEGATIVE); COLOR,URINE YELLOW; GLUCOSE, URINE (UA) NEGATIVE (NEGATIVE); KETONES,URINE NEGATIVE (NEGATIVE); LEUKOCYTE ESTERASE ,URINE 3+ (NEGATIVE); NITRITE,URINE NEGATIVE (NEGATIVE); PH,URINE 6 (5-9); PROTEIN,URINE 2+ (NEGATIVE)
[2019-08-15 12:17] LABS: CLARITY,URINE SL CLOUDY
[2019-08-15 12:18] LABS: BACTERIA,URINE LARGE /HPF; RENAL EPITHELIAL CELLS,URINE 0-2 /HPF; WBC,URINE 25-50 /HPF
[2019-08-15] MEDS ORDERED: CIPR500T4 PO (12:36)
[2019-08-15 12:40] VITALS: BP 146/85
== END 2019-08-15 12:44 | disposition home or self-care (01) ==
LOC: EDUNIT# 10:35 → ER 10:36
DX: G40.89 Other seizures (principal); N39.0 Urinary tract infection, site not specified; I10 Essential (primary) hypertension; E78.00 Pure hypercholesterolemia, unspecified; G43.909 Migraine, unspecified, not intractable, without status migrainosus; G40.909 Epilepsy, unspecified, not intractable, without status epilepticus; F41.9 Anxiety disorder, unspecified; F32.9 Major depressive disorder, single episode, unspecified; Z88.0 Allergy status to penicillin; Z88.2 Allergy status to sulfonamides; Z88.8 Allergy status to other drugs, medicaments and biological substances; Z90.89 Acquired absence of other organs; Z90.5 Acquired absence of kidney
CPT/HCPCS: 80306; 81000; 87088; 99283

== ENCOUNTER 2019-08-21 19:38 | Emergency (ER) | payer OTHER ==
[~2019-08-21] VITALS: Ht 165.1 cm; Wt 111.8 kg
--- NOTE | 2019-08-21 20:13 | ED General ---
General Chief Complaint: Allergic Reaction Stated Complaint: ITCHY THROAT, SORE MOUTH Nursing Triage Note: STATES SHE TOOK LAMOTRIGINE A FEW MINUTES BEFORE COMING TO THE ER AND THINKS SHE IS HAVING AN ALLERGIC REACTION DUE TO THE BURNING IN HER THROAT. 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 Nursing Sepsis Screen: No Definite Risk Source of Information: Patient Exam Limitations: No Limitations History of Present Illness Date Seen by Provider: Aug 21, 2019 Time Seen by Provider: 20:12 Initial Comments To ER with reports of burning sensation in her throat and itching all over that began immediately after taking a Lamictal tablet for seizure disorder at 7:50 PM this evening. She took one Benadryl prior to arrival. Timing/Duration: Other (less than 20 minutes) Severity: Moderate Associated Systoms: Denies Symptoms Allergies and Home Medications Allergies Coded Allergies: amoxicillin (Verified Allergy, Unknown, 04/06/19) carbamazepine (Verified Allergy, Unknown, 04/06/19) shellfish derived (Verified Allergy, Unknown, 07/20/19) Penicillins (Unverified Adverse Reaction, Intermediate, 04/06/19) Sulfa (Sulfonamide Antibiotics) (Unverified Adverse Reaction, Intermediate, 04/06/19) Home Medications Ciprofloxacin HCl 500 Mg Tablet, 500 MG PO BID Prescribed by: ERIKA KRAUSE on 08/15/19 1236 Levetiracetam 1,000 Mg Tablet, 1,000 MG PO TID, (Reported) Nitrofurantoin Monohyd/M-Cryst 100 Mg Capsule, 100 MG PO BID Prescribed by: SHAQ OLSEN on 07/23/192211 Ondansetron 4 Mg Tab.rapdis, 4 MG PO Q4H Prescribed by: SHAQ OLSEN on 07/23/192211 Tramadol HCl 50 Mg Tablet, 50 MG PO Q6H PRN for PAIN Prescribed by: HAMMAD ROACH on 07/19/19 0017 Patient Home Medication List Home Medication List Reviewed: Yes Review of Systems Review of Systems Constitutional: see HPI EENTM: see HPI Respiratory: no symptoms reported Cardiovascular: no symptoms reported Genitourinary: no symptoms reported Musculoskeletal: no symptoms reported Skin: see HPI Psychiatric/Neurological: No Symptoms Reported Hematologic/Lymphatic: No Symptoms Reported Past Mysbdqo-Zvpbif-Nhpkdp Hx Patient Social History Alcohol Use: Denies Use Number of Drinks Today: AA Alcohol Beverage of Choice: Beer Recreational Drug Use: No Type Used: Cigarettes 2nd Hand Smoke Exposure: No Recent Foreign Travel: No Contact w/Someone Who Travel: No Recent Infectious Disease Expo: No Recent Hopitalizations: No Immunizations Up To Date Tetanus Booster (TDap): Unknown PED Vaccines UTD: Yes Date of Pneumonia Vaccine: Apr 19, 2012 Date of Influenza Vaccine: Apr 19, 2012 Seasonal Allergies Seasonal Allergies: Yes Past Medical History Surgeries: Yes Adenoidectomy, Ear Surgery, Nephrectomy, Renal, Tonsillectomy Respiratory: No Cardiac: Yes High Cholesterol, Hypertension Neurological: Yes Headaches /Migraines, Seizure Disorder Reproductive Disorders: No Genitourinary: Yes Bladder Infection Gastrointestinal: No Musculoskeletal: No Endocrine: No HEENT: Yes Chronic Ear Infection Hearing Impairment: Hard of Hearing Cancer: No Psychosocial: Yes Anxiety, Depression Integumentary: No Blood Disorders: No Family Medical History No Pertinent Family Hx Physical Exam Vital Signs Vital Signs - First Documented 08/21/19 19:42 Temp 36.0 Pulse 87 Resp 16 B/P (MAP) 149/75 (99) Pulse Ox 96 O2 Delivery Room Air Capillary Refill : Less Than 3 Seconds Height, Weight, BMI Height: 5'5.00" Weight: 260lbs. 0oz. 117.193665mz; 41.00 BMI Method:Actual General Appearance: No Apparent Distress, WD/WN, Other (no hives no rash no erythema of the skin no stridor no drooling no wheezing no tongue or uvula swelling. Nothing objective to support her alleged allergic reaction) Eyes: Bilateral Eye Normal Inspection, Bilateral Eye PERRL, Bilateral Eye EOMI HEENT: PERRL/EOMI, TMs Normal Neck: Full Range of Motion, Normal Inspection Respiratory: Chest Non Tender, Lungs Clear, Normal Breath Sounds, No Accessory Muscle Use, No Respiratory Distress Cardiovascular: Regular Rate, Rhythm, Normal Peripheral Pulses Gastrointestinal: Non Tender, Soft Extremity: Normal Capillary Refill, Normal Inspection Neurologic/Psychiatric: Alert, Oriented x3 Skin: Normal Color, Warm/Dry Progress/Results/Core Measures Suspected Sepsis Recent Fever Within 48 Hours: No Infection Criteria Present: None New/Unexplained Altered Menta: No Sepsis Screen: No Definite Risk SIRS Temperature: Pulse: 87 Respiratory Rate: 16 Blood Pressure 149 /75 Mean: 99 Results/Orders My Orders Orders - CELIA HUGHES APRN Diphenhydramine Injection (Benadryl Inje (08/21/19 20:15) Medications Given in ED Current Medications Medications Dose Ordered Sig/Kayode Route Start Time Stop Time Status Last Admin Dose Admin Diphenhydramine HCl 25 mg ONCE ONCE IM 08/21/19 20:15 08/21/19 20:16 DC 08/21/19 20:15 25 MG Vital Signs/I&O 08/21/19 19:42 Temp 36.0 Pulse 87 Resp 16 B/P (MAP) 149/75 (99) Pulse Ox 96 O2 Delivery Room Air Capillary Refill : Less Than 3 Seconds Blood Pressure Mean: 99 POS Departure Impression Primary Impression: alleged allergic reaction Disposition: HOME, SELF-CARE Condition: Stable Departure-Patient Inst. Decision time for Depature: 20:22 Referrals: [facility] (PCP) Primary Care Physician DAVID CHOI APRN (Family) Primary Care Physician Patient Instructions: NO INSTRUCTIONS GIVEN Add. Discharge Instructions: 1. Return to ER for any concerns 2. Call your neurologist next week to discuss other medications that might be better tolerated All discharge instructions reviewed with patient and/or family. Voiced understanding. CELIA HUGHES APRN Aug 21, 2019 20:13 POS
[2019-08-21] MEDS ORDERED: diphenhydrAMINE 50 MG/ML INJ (BENADRYL) IM ONE (20:15)
[2019-08-21 20:47] VITALS: BP 149/75
== END 2019-08-21 20:47 | disposition home or self-care (01) ==
LOC: EDUNIT# 19:38 → ER 19:40
DX: T78.40XA Allergy, unspecified, initial encounter (principal); I10 Essential (primary) hypertension; E78.00 Pure hypercholesterolemia, unspecified; G43.909 Migraine, unspecified, not intractable, without status migrainosus; G40.909 Epilepsy, unspecified, not intractable, without status epilepticus; F41.9 Anxiety disorder, unspecified; F32.9 Major depressive disorder, single episode, unspecified; Z90.89 Acquired absence of other organs; Z90.5 Acquired absence of kidney; Z88.0 Allergy status to penicillin; Z88.2 Allergy status to sulfonamides; Z88.8 Allergy status to other drugs, medicaments and biological substances
CPT/HCPCS: 99284

== ENCOUNTER 2019-09-01 04:35 | Emergency (ER) | payer OTHER ==
[~2019-09-01] VITALS: Ht 165.1 cm; Wt 111.8 kg
[2019-09-01] MEDS ORDERED: FLUO20CA42 PO (04:45)
[2019-09-01] MEDS ORDERED: HYDR25CA PO (04:45)
--- NOTE | 2019-09-01 04:48 | ED Lower Extremity ---
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 HAS HAD 20 ER VISITS IN 2019 PCP: [facility] Allergies and Home Medications Allergies Coded Allergies: amoxicillin (Verified Allergy, Unknown, 04/06/19) carbamazepine (Verified Allergy, Unknown, 04/06/19) shellfish derived (Verified Allergy, Unknown, 07/20/19) Penicillins (Unverified Adverse Reaction, Intermediate, 04/06/19) Sulfa (Sulfonamide Antibiotics) (Unverified Adverse Reaction, Intermediate, 04/06/19) Home Medications Levetiracetam 1,000 Mg Tablet, 1,000 MG PO TID, (Reported) Patient Home Medication List Home Medication List Reviewed: Yes Review of Systems Constitutional: no symptoms reported LMP: Aug 24, 2019 (NORMAL, NO CONTROL) Control/STD Prophylaxis: None Musculoskeletal: see HPI Skin: no symptoms reported Psychiatric/Neurological: No Symptoms Reported Past Tyswzys-Ulyemw-Intpkl Hx Past Med/Social Hx: Reviewed and Corrections made Patient Social History Alcohol Use: Occasionally Uses Alcohol Beverage of Choice: Beer Recreational Drug Use: No Smoking Status: Current Everyday Smoker Type Used: Cigarettes 2nd Hand Smoke Exposure: No Recent Foreign Travel: No Contact w/Someone Who Travel: No Recent Hopitalizations: No Immunizations Up To Date Tetanus Booster (TDap): Unknown PED Vaccines UTD: Yes Date of Pneumonia Vaccine: Apr 19, 2012 Date of Influenza Vaccine: Apr 19, 2012 Seasonal Allergies Seasonal Allergies: Yes Past Medical History Surgeries: Yes (BMT'S; REMOVAL OF BENIGN TUMOR FROM ROOF OF MOUTH; 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) Adenoidectomy, Ear Surgery, Nephrectomy, Renal, Tonsillectomy Respiratory: No Cardiac: Yes High Cholesterol, Hypertension Neurological: Yes (SEIZURES SINCE CARAM[place] CUTTER HAND AND ON MEDICATIONS UNTIL AGE 10; NO SEIZURES FOR YEARS, AND THEN STARTED HAVING SEIZURES AGAIN 10/2017, AND HAS BEEN BACK ON SEIZURE MEDICATION SINCE THEN; THEY POSSIBLY HAVE BEEN RELATED TO MIGRAINES, BUT ON PREVIOUS ER VISITS, THESE HAVE ALL BEEN SELF-REPORTED AND NOT WITNESSED ) Headaches /Migraines, Seizure Disorder Reproductive Disorders: No Genitourinary: Yes (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; 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, NON-FUNCTIONING RIGHT KIDNEY.) Bladder Infection Gastrointestinal: No Musculoskeletal: No Endocrine: No HEENT: Yes (DECREASED HEARING IN LEFT EAR; S/P BMT'S ; REMOVAL OF BENIGN TUMOR FROM ROOF OF MOUTH) Chronic Ear Infection Hearing Impairment: Hard of Hearing Cancer: No Psychosocial: Yes Anxiety, Depression Integumentary: No Blood Disorders: No Family Medical History No Pertinent Family Hx Physical Exam Vital Signs Vital Signs - First Documented 09/01/19 04:40 Temp 36.3 Pulse 79 Resp 18 B/P (MAP) 115/64 (81) Pulse Ox 98 O2 Delivery Room Air Capillary Refill : Height, Weight, BMI Height: 5'5.00" Weight: 260lbs. 0oz. 117.868764fn; 41.00 BMI Method:Actual General Appearance: WD/WN, no apparent distress, obese, other (SMILING, TALKATIVE, DOES NOT APPEAR TO BE IN ANY DISCOMFORT OR DISTRESS) Hips: bilateral hip normal inspection Legs: bilateral leg normal inspection Knees: bilateral knee normal inspection Ankles: right ankle normal inspection; left ankle other (DIFFUSE TENDERNESS TO LEFT ANKLE. NO SWELLING OR EXTERNAL EVIDENCE OF TRAUMA. MOTOR/SENSORY/VASCULAR INTACT. 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 ) Skin: normal color, warm/dry Procedures/Interventions Splinting and Joint Reduction : Stephen wrap: Yes Splints: Air Stirrup [place] Progress/Results/Core Measures Results/Orders My Orders Orders - SHAQ OLSEN DO Ankle, Left, 3 Views (09/01/19 04:42) Ed Ortho Supplies Order (09/01/19 05:02) Stephen Bandage (09/01/19 05:02) Vital Signs/I&O 11/13/19 04:40 Temp 36.3 Pulse 79 Resp 18 B/P (MAP) 115/64 (81) Pulse Ox 98 O2 Delivery Room Air Diagnostic Imaging Comments XRAYS LEFT ANKLE--NO ACUTE PROCESS, PENDING RADIOLOGIST REVIEW Reviewed: Reviewed by Me Departure Impression Primary Impression: Left ankle sprain Disposition: 01 HOME, SELF-CARE Condition: Stable Departure-Patient Inst. Referrals: [facility]/MIGUELINA (PCP) Primary Care Physician DAVID CHOI APRN (Family) Primary Care Physician Patient Instructions: Ankle Sprain (DC) Add. Discharge Instructions: STEPHEN WRAP AND SPLINT NEEDED FOR COMFORT ICE TO AREA AT 20 MINUTE INTERVALS ELEVATE FOOT MUCH POSSIBLE TYLENOL AND MOTRIN NEEDED FOR PAIN FOLLOW UP WITH YOUR DR IN 1 WEEK IF NO BETTER SHAQ OLSEN DO Sep 01, 2019 04:48 POS
[2019-09-01 05:10] VITALS: BP 115/64
--- NOTE | 2019-09-01 07:08 | Diagnostic Imaging Report ---
CLINICAL INDICATION: Patient with left ankle pain. Patient rolled ankle on stairs. EXAM: X-ray left ankle, 3 views. COMPARISON: X-ray of the left ankle dated 01/09/2019. FINDINGS: There is no acute fracture or dislocation. There is soft tissue swelling adjacent to the ankle. The ankle mortise and syndesmotic joints are unremarkable. Mildly hypertrophic calcaneal spur at the plantar fascia attachment is again seen. The visualized portions of the hindfoot and midfoot are unremarkable. IMPRESSION: 1.: There is no acute fracture or dislocation. Dictated by: Dictated on workstation # [id number]
== END 2019-09-01 05:13 | disposition home or self-care (01) ==
LOC: EDUNIT# 04:35 → ER 04:36
DX: S93.402A Sprain of unspecified ligament of left ankle, initial encounter (principal); I10 Essential (primary) hypertension; E78.00 Pure hypercholesterolemia, unspecified; G40.909 Epilepsy, unspecified, not intractable, without status epilepticus; G43.909 Migraine, unspecified, not intractable, without status migrainosus; F41.9 Anxiety disorder, unspecified; F32.9 Major depressive disorder, single episode, unspecified; F17.210 Nicotine dependence, cigarettes, uncomplicated; Z90.89 Acquired absence of other organs; Z90.5 Acquired absence of kidney; Z88.0 Allergy status to penicillin; Z88.2 Allergy status to sulfonamides; Z88.8 Allergy status to other drugs, medicaments and biological substances; X50.1XXA Overexertion from prolonged static or awkward postures, initial encounter
CPT/HCPCS: 73610

== ENCOUNTER 2019-11-20 18:34 | Emergency (ER) | payer OTHER ==
[~2019-11-20] VITALS: Ht 165 cm; Wt 132.3 kg
[~2019-11-20 18:34] MED LIST changes: -FLUO20CA25 PO; +FLUO20CA42 PO; +FLUO20CA45 PO; +HYDR25CA PO; -TRAM50TA2 PO; +TRM50T PO
[2019-11-20] MEDS ORDERED: ORPHENADRINE 60 MG/2 ML (NORFLEX) AMP IM ONE (18:45)
[2019-11-20] MEDS ORDERED: KETOROLAC 60 MG/2 ML VIAL IM ONE (18:45)
--- NOTE | 2019-11-20 18:46 | ED Head Injury ---
General Stated Complaint: SEIZURE Source: patient Exam Limitations: no limitations History of Present Illness Date Seen by Provider: Nov 20, 2019 Time Seen by Provider: 18:44 Initial Comments Allegedly had a seizure at home causing her to fall and strike the back of her head on the stove. She now has a headache and low back pain also from the fall. She also has nausea. Occurred: just prior to arrival Severity: moderate Location: parietal Method of Injury: direct blow Loss of Consciousness: no loss of consciousness Allergies and Home Medications Allergies Coded Allergies: amoxicillin (Verified Allergy, Unknown, 04/06/19) carbamazepine (Verified Allergy, Unknown, 04/06/19) shellfish derived (Verified Allergy, Unknown, 07/20/19) Penicillins (Unverified Adverse Reaction, Intermediate, 04/06/19) Sulfa (Sulfonamide Antibiotics) (Unverified Adverse Reaction, Intermediate, 04/06/19) Home Medications Levetiracetam 1,000 Mg Tablet, 1,000 MG PO TID, (Reported) Patient Home Medication List Home Medication List Reviewed: Yes Review of Systems Review of Systems Constitutional: see HPI Eyes: No Symptoms Reported Ears, Nose, Mouth, Throat: no symptoms reported Respiratory: no symptoms reported Cardiovascular: no symptoms reported Genitourinary: no symptoms reported Musculoskeletal: no symptoms reported Skin: no symptoms reported Psychiatric/Neurological: No Symptoms Reported Endocrine: No Symptoms Reported Hematologic/Lymphatic: No Symptoms Reported Past Aunkogz-Irbmhe-Nivsji Hx Patient Social History Alcohol Beverage of Choice: Beer Type Used: Cigarettes 2nd Hand Smoke Exposure: No Recent Foreign Travel: No Contact w/Someone Who Travel: No Recent Hopitalizations: No Immunizations Up To Date Tetanus Booster (TDap): Unknown PED Vaccines UTD: Yes Date of Pneumonia Vaccine: Apr 19, 2012 Date of Influenza Vaccine: Apr 19, 2012 Seasonal Allergies Seasonal Allergies: Yes Past Medical History Surgeries: Yes Adenoidectomy, Ear Surgery, Nephrectomy, Renal, Tonsillectomy Respiratory: No Cardiac: Yes High Cholesterol, Hypertension Neurological: Yes Headaches /Migraines, Seizure Disorder Reproductive Disorders: No Genitourinary: Yes Bladder Infection Gastrointestinal: No Musculoskeletal: No Endocrine: No HEENT: Yes Chronic Ear Infection Hearing Impairment: Hard of Hearing Cancer: No Psychosocial: Yes Anxiety, Depression Integumentary: No Blood Disorders: No Family Medical History No Pertinent Family Hx Physical Exam Vital Signs Capillary Refill : Height, Weight, BMI Height: 5'5.00" Weight: 260lbs. 0oz. 117.405241dq; 41.00 BMI Method:Actual General Appearance: WD/WN, no apparent distress HEENT: PERRL/EOMI, normal ENT inspection Neck: non-tender, full range of motion Respiratory: normal breath sounds, no respiratory distress, no accessory muscle use Extremities: normal range of motion, non-tender Psychiatric: alert, oriented x 3 Crainal Nerves: normal hearing, normal speech, PERRL Motor/Sensory: no motor deficit, no sensory deficit Skin: normal color, warm/dry [place] Coma Score Best Eye Response: (4) Open Spontaneously Best Verbal Response: (5) Oriented Best Motor Response: (6) Obeys Commands [place] Total: 15 Progress/Results/Core Measures Results/Orders My Orders Orders - CELIA HUGHES APRN Ct Head Wo (11/20/19 18:43) Ketorolac Injection (Toradol Injection) (11/20/19 18:45) Orphenadrine Injection (Norflex Injectio (11/20/19 18:45) Departure Impression Primary Impression: Head injury Qualified Codes: S09.90XA - Unspecified injury of head, initial encounter Disposition: HOME, SELF-CARE Condition: Stable Departure-Patient Inst. Decision time for Depature: 18:46 Referrals: [facility]/MIGUEL[facility] (PCP) Primary Care Physician DAVID CHOI APRN (Family) Primary Care Physician Patient Instructions: Minor Head Injury CELIA HUGHES APRN Nov 20, 2019 18:46
--- NOTE | 2019-11-20 19:05 | Diagnostic Imaging Report ---
PROCEDURE: CT head without contrast. TECHNIQUE: Multiple contiguous axial images were obtained through the brain without the use of intravenous contrast. Auto Exposure Controls were utilized during the CT exam to meet ALARA standards for radiation dose reduction. DATE: November 20, 2019. COMPARISON: MRI brain July 30, 2019. CT head June 05, 2019. INDICATION: 24-year-old female, seizure. Fall and hit back of head. Lightheadedness and dizziness. FINDINGS: The ventricles and cerebral spinal fluid spaces are of normal size and configuration for the patient's age. There is no mass effect or midline shift. There is no acute intracranial hemorrhage. There is no abnormal extra-axial fluid collection. The visualized portions of the paranasal sinuses, mastoid air cells and middle ears are well aerated. IMPRESSION: No identified acute intracranial abnormality. Dictated by: Dictated on workstation # [id number]
[2019-11-20 19:30] VITALS: BP 145/96
== END 2019-11-20 19:33 | disposition home or self-care (01) ==
LOC: EDUNIT# 18:34 → ER 18:35
DX: S09.90XA Unspecified injury of head, initial encounter (principal); G40.909 Epilepsy, unspecified, not intractable, without status epilepticus; R40.2142 Coma scale, eyes open, spontaneous, at arrival to emergency department; R40.2252 Coma scale, best verbal response, oriented, at arrival to emergency department; R40.2362 Coma scale, best motor response, obeys commands, at arrival to emergency department; Z88.0 Allergy status to penicillin; Z88.8 Allergy status to other drugs, medicaments and biological substances; Z88.2 Allergy status to sulfonamides; W22.8XXA Striking against or struck by other objects, initial encounter; W18.39XA Other fall on same level, initial encounter
CPT/HCPCS: 70450

== ENCOUNTER 2019-12-17 14:13 | Emergency (ER) | payer OTHER ==
[~2019-12-17] VITALS: Ht 165 cm; Wt 134.2 kg
[~2019-12-17 14:13] MED LIST changes: -FLUO20CA45 PO; +FLUO20CA46 PO
[2019-12-17] MEDS ORDERED: diphenhydrAMINE 50 MG/ML INJ (BENADRYL) IM ONE (15:00)
[2019-12-17] MEDS ORDERED: KETOROLAC 60 MG/2 ML VIAL IM ONE (15:00)
[2019-12-17] MEDS ORDERED: PROCHLORPERAZINE 10 MG/2ML INJ (COMPAZINE) IM ONE (15:00)
--- NOTE | 2019-12-17 15:29 | ED Headache ---
General Chief Complaint: Head/Cervical Problems Stated Complaint: MIGRAINE;NAUSEA Nursing Triage Note: migraine x 5 days, light headed, blacking out, nausea, states she called her PCP and was told to be examined at ED Nursing Sepsis Screen: No Definite Risk Source: patient Exam Limitations: no limitations History of Present Illness Date Seen by Provider: Dec 17, 2019 Time Seen by Provider: 15:24 Initial Comments To ER with a migraine for 5 days, nausea, "blacking out". She states by "blacking out" she means that she will end up in the room of the house and the unclear as to how she got there. Timing/Duration: 1 week Severity/Quality: moderate Location: global Prior Headaches/Recent Trauma: frequent headaches Associated Symptoms: nausea/vomiting Allergies and Home Medications Allergies Coded Allergies: amoxicillin (Verified Allergy, Unknown, 04/06/19) carbamazepine (Verified Allergy, Unknown, 04/06/19) shellfish derived (Verified Allergy, Unknown, 07/20/19) Penicillins (Unverified Adverse Reaction, Intermediate, 04/06/19) Sulfa (Sulfonamide Antibiotics) (Unverified Adverse Reaction, Intermediate, 04/06/19) Home Medications Butalb/Acetaminophen/Caffeine 1 Each Capsule, 2 EACH PO Q6H PRN for headache Prescribed by: CELIA HUGHES on 12/17/19 1631 Levetiracetam 1,000 Mg Tablet, 1,000 MG PO TID, (Reported) Patient Home Medication List Home Medication List Reviewed: Yes Review of Systems Review of Systems Constitutional: see HPI Eyes: No Symptoms Reported Ears, Nose, Mouth, Throat: no symptoms reported Respiratory: no symptoms reported Cardiovascular: no symptoms reported Genitourinary: no symptoms reported Musculoskeletal: see HPI Skin: no symptoms reported Psychiatric/Neurological: See HPI, Headache Past Ctsjkmx-Zwucmi-Xxlfxu Hx Patient Social History Alcohol Use: Denies Use Number of Drinks Today: AA Alcohol Beverage of Choice: Beer Recreational Drug Use: No Type Used: Cigarettes 2nd Hand Smoke Exposure: No Recent Foreign Travel: No Contact w/Someone Who Travel: No Recent Infectious Disease Expo: No Recent Hopitalizations: No Immunizations Up To Date Tetanus Booster (TDap): Unknown PED Vaccines UTD: Yes Date of Pneumonia Vaccine: Apr 19, 2012 Date of Influenza Vaccine: Apr 19, 2012 Seasonal Allergies Seasonal Allergies: Yes Past Medical History Surgeries: Yes Adenoidectomy, Ear Surgery, Nephrectomy, Renal, Tonsillectomy Respiratory: No Cardiac: Yes High Cholesterol, Hypertension Neurological: Yes Headaches /Migraines, Seizure Disorder Last Menstrual Period: Dec 17, 2019 Reproductive Disorders: No Genitourinary: Yes Bladder Infection Gastrointestinal: No Musculoskeletal: No Endocrine: No HEENT: Yes Chronic Ear Infection Hearing Impairment: Hard of Hearing Cancer: No Psychosocial: Yes Anxiety, Depression Integumentary: No Blood Disorders: No Family Medical History No Pertinent Family Hx Physical Exam Vital Signs Vital Signs - First Documented 12/17/19 14:35 Temp 37.0 Pulse 78 Resp 18 B/P (MAP) 130/71 (90) Capillary Refill : Less Than 3 Seconds Height, Weight, BMI Height: 5'5.00" Weight: 260lbs. 0oz. 117.249465av; 49.00 BMI Method:Actual General Appearance: WD/WN, no apparent distress HEENT: PERRL/EOMI, normal ENT inspection Neck: non-tender, full range of motion Cardiovascular: regular rate, rhythm, no murmur Respiratory: normal breath sounds, no respiratory distress, no accessory muscle use Gastrointestinal: normal bowel sounds, non tender Extremities: normal range of motion, non-tender Psychiatric: alert, oriented x 3 Crainal Nerves: normal hearing, normal speech, PERRL Skin: normal color, warm/dry Progress/Results/Core Measures Results/Orders My Orders Orders - CELIA HUGHES APRN Ketorolac Injection (Toradol Injection) (12/17/19 15:00) Prochlorperazine Injection (Compazine In (12/17/19 15:00) Diphenhydramine Injection (Benadryl Inje (12/17/19 15:00) Bupivacaine 0.5% Injection (Sensorcaine (12/17/19 16:15) Medications Given in ED Current Medications Medications Dose Ordered Sig/Kayode Route Start Time Stop Time Status Last Admin Dose Admin Diphenhydramine HCl 25 mg ONCE ONCE IM 12/17/19 15:00 12/17/19 15:01 DC 12/17/19 15:21 25 MG Ketorolac Tromethamine 60 mg ONCE ONCE IM 12/17/19 15:00 12/17/19 15:01 DC 12/17/19 15:21 60 MG Prochlorperazine Edisylate 10 mg ONCE ONCE IM 12/17/19 15:00 12/17/19 15:01 DC 12/17/19 15:20 10 MG Vital Signs/I&O 12/17/19 14:35 Temp 37.0 Pulse 78 Resp 18 B/P (MAP) 130/71 (90) Blood Pressure Mean: 90 Departure Communication (Admissions) I did a paraspinous cervical nerve block. Vertebral prominence was identified, 1 cm lateral to this both left and right a 5 cc syringe filled with 4 cc of 1% lid ocaine without epinephrine was used attached to a 1-1/2 inch 27-gauge needle. 2 mL of this medication was injected on each side about 2-3 cm deep. This resulted in significant improvement in her headache. Impression Primary Impression: Headache Qualified Codes: R51 - Headache Disposition: HOME, SELF-CARE Condition: Improved Departure-Patient Inst. Decision time for Depature: 15:25 Referrals: [facility]/ (PCP) Primary Care Physician DAVID CHOI APRN (Family) Primary Care Physician Patient Instructions: Headache, Adult (DC) Add. Discharge Instructions: 1. Return to ER for any concerns 2. Follow-up with your doctor next week 3. All discharge instructions reviewed with patient and/or family. Voiced understanding. Scripts Butalb/Acetaminophen/Caffeine (Esgic Capsule) 1 Each Capsule 2 EACH PO Q6H PRN for headache, #10 CAP Prov: CELIA HUGHES APRN 12/17/19 CELIA HUGHES APRN Dec 17, 2019 15:29
[2019-12-17] MEDS ORDERED: BUPIVACAINE 0.5% 30 ML (SENSORCAINE) VIAL INJ ONE (16:15)
[2019-12-17] MEDS ORDERED: BUTA1CAP45 PO (16:31)
[2019-12-17 16:51] VITALS: BP 128/69
== END 2019-12-17 16:52 | disposition home or self-care (01) ==
LOC: EDUNIT# 14:13 → ER 14:14
DX: R51 Headache (principal); G40.909 Epilepsy, unspecified, not intractable, without status epilepticus; Z88.0 Allergy status to penicillin; Z88.2 Allergy status to sulfonamides; Z88.8 Allergy status to other drugs, medicaments and biological substances; Z86.69 Personal history of other diseases of the nervous system and sense organs
CPT/HCPCS: 99284

== ENCOUNTER 2019-12-22 18:53 | Emergency (ER) | payer OTHER ==
[~2019-12-22] VITALS: Ht 165 cm; Wt 134.2 kg
[~2019-12-22 18:53] MED LIST changes: +BUTA1CAP45 PO
[2019-12-22 19:30] VITALS: BP 135/93
[2019-12-22] MEDS ORDERED: IBUPROFEN 800 MG (MOTRIN) TAB PO STA (20:11)
--- NOTE | 2019-12-22 20:19 | ED Back Pain ---
General Chief Complaint: Back Problems Stated Complaint: SEIZURES Nursing Triage Note: HAD MULTIPLE SEIZURES, HAS HX OF SEIZURE, ON KEPPRA 1000 TID. FELL HIT LOWER BACK A RESULT OF SEIZING. NO URINARY SX. Nursing Sepsis Screen: No Definite Risk History of Present Illness Date Seen by Provider: Dec 22, 2019 Time Seen by Provider: 17:55 Initial Comments 24-year-old female presents for low back pain. She has focal seizures and reports 2-3 episodes earlier this evening. Since then she has been experiencing low back and left leg pain. She does not remember falling or hitting her back. She has been under increased stress because of family members due to cancer. She is taking her Keppra 3 times a day as prescribed. She did not take any medication prior to arrival. Timing/Duration: 1-3 Hours Severity: Mild Pain/Injury Location: Back Radiation: Buttocks (left), Upper Legs (left) Method of Injury: Unknown Associated Symptoms: muscle spasms; No sensory/motor loss; lower back pain; No loss of bladder control, No loss of bowel control Allergies and Home Medications Allergies Coded Allergies: amoxicillin (Verified Allergy, Unknown, 04/06/19) carbamazepine (Verified Allergy, Unknown, 04/06/19) shellfish derived (Verified Allergy, Unknown, 07/20/19) Penicillins (Unverified Adverse Reaction, Intermediate, 04/06/19) Sulfa (Sulfonamide Antibiotics) (Unverified Adverse Reaction, Int ermediate, 04/06/19) Home Medications Butalb/Acetaminophen/Caffeine 1 Each Capsule, 2 EACH PO Q6H PRN for headache Prescribed by: CELIA HUGHES on 12/17/19 1631 Levetiracetam 1,000 Mg Tablet, 1,000 MG PO TID, (Reported) Patient Home Medication List Home Medication List Reviewed: Yes Review of Systems Constitutional: no symptoms reported, see HPI Musculoskeletal: see HPI, back pain All Other Systems Reviewed Negative Unless Noted: Yes Past Nozsbgc-Iwyuxc-Cjyyxx Hx Past Med/Social Hx: Reviewed Nursing Past Med/Soc Hx Patient Social History Alcohol Use: Denies Use Alcohol Beverage of Choice: Beer Recreational Drug Use: No Type Used: Cigarettes 2nd Hand Smoke Exposure: No Recent Foreign Travel: No Contact w/Someone Who Travel: No Recent Infectious Disease Expo: No Recent Hopitalizations: No Physical Abuse: No Sexual Abuse: No Mistreated: No Fear: No Immunizations Up To Date Tetanus Booster (TDap): Less than 5yrs PED Vaccines UTD: Yes Date of Pneumonia Vaccine: Apr 19, 2012 Date of Influenza Vaccine: Apr 19, 2012 Seasonal Allergies Seasonal Allergies: Yes Past Medical History Surgeries: Yes Adenoidectomy, Ear Surgery, Nephrectomy, Renal, Tonsillectomy Respiratory: No Cardiac: Yes High Cholesterol, Hypertension Neurological: Yes Headaches /Migraines, Seizure Disorder : No Last Menstrual Period: Dec 22, 2019 Hx : 0 Hx Para: 0 Hx Total # of Abortions (Sp): 0 Reproductive Disorders: No Genitourinary: Yes Bladder Infection Gastrointestinal: No Musculoskeletal: No Endocrine: No HEENT: Yes Chronic Ear Infection Hearing Impairment: Hard of Hearing Cancer: No Psychosocial: Yes Anxiety, Depression Integumentary: No Blood Disorders: No Family Medical History No Pertinent Family Hx Physical Exam Vital Signs Vital Signs - First Documented 12/22/19 19:30 Temp 36.8 Pulse 81 Resp 18 B/P (MAP) 135/93 (107) Pulse Ox 96 Capillary Refill : Less Than 3 Seconds Height, Weight, BMI Height: 5'5.00" Weight: 260lbs. 0oz. 117.332490kc; 49.00 BMI Method:Actual General Appearance: No Apparent Distress, WD/WN HEENT: PERRL/EOMI, TMs Normal, Normal ENT Inspection, Pharynx Normal Neck: Full Range of Motion, Normal Inspection, Non Tender, Supple Cardiovascular: Regular Rate, Rhythm, No Edema, No Murmur, Normal Peripheral Pulses Respiratory: Chest Non Tender, Lungs Clear, Normal Breath Sounds Gastrointestinal: Normal Bowel Sounds, Non Tender, Soft Back: Normal Inspection, Decreased Range of Motion (secondary to pain), Muscle Spasm; No Vertebral Tenderness; Other (ambulates with a steady heel-to-toe gait. Able to raise onto her toes and heels. PowerV/V L4-S1. Neg SLR) Extremity: Normal Capillary Refill, Normal Inspection, Normal Range of Motion, Non Tender Neurologic/Psychiatric: Alert, Oriented x3, No Motor/Sensory Deficits, Normal Mood/Affect, inspector mechanical II-XII Norm as Tested Skin: Normal Color, Warm/Dry Progress/Results/Core Measures Results/Orders My Orders Orders - ERIKA KRAUSE Ibuprofen Tablet (Motrin Tablet) (12/22/19 20:11) Vital Signs/I&O 12/22/19 19:30 Temp 36.8 Pulse 81 Resp 18 B/P (MAP) 135/93 (107) Pulse Ox 96 Blood Pressure Mean: 107 Departure Impression Primary Impression: Low back pain Qualified Codes: M54.42 - Lumbago with sciatica, left side Additional Impression: Seizure disorder Disposition: HOME, SELF-CARE Condition: Improved Departure-Patient Inst. Decision time for Depature: 20:15 Referrals: [facility]/MIGUEL[facility] (PCP) Primary Care Physician DAVID CHOI APRN (Family) Primary Care Physician Patient Instructions: Lumbar Muscle Strain (DC), Low Back Pain (DC) Add. Discharge Instructions: Alternate heat and ice to low back for 20 minutes every 2 hours. Alternate Tylenol 650 mg and ibuprofen 800 mg every 4 hours for pain. You can use icy hot with lidocaine patches to your low back. Follow-up with your primary care provider if the back pain continues or for your seizure disorder. Consider seeing a neurologist earlier for the seizures. Return to the emergency department for new, urgent health care needs. All discharge instructions reviewed with patient and/or family. Voiced understanding. ERIKA KRAUSE Dec 22, 2019 20:19
== END 2019-12-22 20:29 | disposition home or self-care (01) ==
LOC: EDUNIT# 18:53 → ER 18:55
DX: M54.5 Low back pain (principal); G40.909 Epilepsy, unspecified, not intractable, without status epilepticus; G43.909 Migraine, unspecified, not intractable, without status migrainosus; Z88.0 Allergy status to penicillin; Z88.8 Allergy status to other drugs, medicaments and biological substances; Z88.2 Allergy status to sulfonamides
CPT/HCPCS: 99283

== ENCOUNTER 2020-01-05 21:47 | Emergency (ER) | payer OTHER ==
[~2020-01-05] VITALS: Ht 165.1 cm; Wt 132.9 kg
[2020-01-05 21:53] VITALS: BP 147/88
[2020-01-05] MEDS ORDERED: KETOROLAC 30 MG/ML VIAL IVP ONE (22:00)
[2020-01-05] MEDS ORDERED: LORazepam INJ 2 MG/ML (ATIVAN) VIAL IVP ONE (22:00)
[2020-01-05 22:05] LABS: BASOPHILS % (AUTO) 0 % (0-10); EOSINOPHILS % (AUTO) 0 % (0-10); HEMATOCRIT 39 % (35-52); HEMOGLOBIN 13.2 G/DL (11.5-16.0); LYMPHOCYTES # (AUTO) 2.2 X 10^3 (1.0-4.0); LYMPHOCYTES % (AUTO) 23 % (12-44); MEAN CORPUSCULAR HEMOGLOBIN 28 PG (25-34); MEAN CORPUSCULAR HGB CONC 34 G/DL (32-36); MEAN CORPUSCULAR VOLUME 83 FL (80-99); MEAN PLATELET VOLUME 10.3 FL (7.4-10.4); MONOCYTES # (AUTO) 0.7 X 10^3 (0.0-1.0); MONOCYTES % (AUTO) 7 % (0-12); NEUTROPHILS # (AUTO) 6.6 X 10^3 (1.8-7.8); NEUTROPHILS % (AUTO) 70 % (42-75); PLATELET COUNT 307 10^3/uL (130-400); RED CELL DISTRIBUTION WIDTH 13.4 % (10.0-14.5); WHITE BLOOD COUNT 9.6 10^3/uL (4.3-11.0)
--- NOTE | 2020-01-05 22:11 | ED General ---
General Chief Complaint: Neurological Problems Stated Complaint: SEIZURES Source of Information: Patient Exam Limitations: No Limitations History of Present Illness Date Seen by Provider: Jan 05, 2020 Time Seen by Provider: 22:09 Initial Comments To ER with reports of headache and "[id number] seizures since 6 AM". Timing/Duration: 12-24 Hours Severity: Moderate Associated Systoms: Denies Symptoms Allergies and Home Medications Allergies Coded Allergies: amoxicillin (Verified Allergy, Unknown, 04/06/19) carbamazepine (Verified Allergy, Unknown, 04/06/19) shellfish derived (Verified Allergy, Unknown, 07/20/19) Penicillins (Unverified Adverse Reaction, Intermediate, 04/06/19) Sulfa (Sulfonamide Antibiotics) (Unverified Adverse Reaction, Intermediate, 04/06/19) Home Medications Butalb/Acetaminophen/Caffeine 1 Each Capsule, 2 EACH PO Q6H PRN for headache Prescribed by: CELIA HUGHES on 12/17/19 1631 Levetiracetam 1,000 Mg Tablet, 1,000 MG PO TID, (Reported) Patient Home Medication List Home Medication List Reviewed: Yes Review of Systems Review of Systems Constitutional: see HPI EENTM: see HPI Respiratory: no symptoms reported Cardiovascular: no symptoms reported Genitourinary: no symptoms reported Musculoskeletal: see HPI Skin: no symptoms reported Psychiatric/Neurological: See HPI Hematologic/Lymphatic: No Symptoms Reported Past Odjqhff-Hlhtyo-Pgjqmt Hx Patient Social History Alcohol Beverage of Choice: Beer Type Used: Cigarettes 2nd Hand Smoke Exposure: No Recent Foreign Travel: No Contact w/Someone Who Travel: No Recent Hopitalizations: No Immunizations Up To Date Tetanus Booster (TDap): Less than 5yrs PED Vaccines UTD: Yes Date of Pneumonia Vaccine: Apr 19, 2012 Date of Influenza Vaccine: Apr 19, 2012 Seasonal Allergies Seasonal Allergies: Yes Past Medical History Surgeries: Yes Adenoidectomy, Ear Surgery, Nephrectomy, Renal, Tonsillectomy Respiratory: No Cardiac: Yes High Cholesterol, Hypertension Neurological: Yes Headaches /Migraines, Seizure Disorder Reproductive Disorders: No Genitourinary: Yes Bladder Infection Gastrointestinal: No Musculoskeletal: No Endocrine: No HEENT: Yes Chronic Ear Infection Hearing Impairment: Hard of Hearing Cancer: No Psychosocial: Yes Anxiety, Depression Integumentary: No Blood Disorders: No Family Medical History No Pertinent Family Hx Physical Exam Vital Signs Capillary Refill : Height, Weight, BMI Height: 5'5.00" Weight: 260lbs. 0oz. 117.969049ex; 49.00 BMI Method:Actual General Appearance: No Apparent Distress, WD/WN, Anxious (anxious appearing, Ativan ordered) Eyes: Bilateral Eye Normal Inspection, Bilateral Eye PERRL, Bilateral Eye EOMI HEENT: PERRL/EOMI, TMs Normal Neck: Full Range of Motion, Normal Inspection Cardiovascular: Regular Rate, Rhythm, Normal Peripheral Pulses Gastrointestinal: Normal Bowel Sounds, Non Tender, Soft Extremity: Normal Capillary Refill Neurologic/Psychiatric: Alert, Oriented x3 Skin: Normal Color, Warm/Dry Progress/Results/Core Measures Suspected Sepsis SIRS Temperature: Pulse: Respiratory Rate: Laboratory Tests 01/05/20 21:57: Blood Pressure / Mean: Laboratory Tests 01/05/20 21:57: Results/Orders Lab Results Laboratory Tests Test 01/05/20 21:57 Range/Units My Orders Orders - CELIA HUGHES APRN Cbc With Automated Diff (01/05/20 21:54) Hcg,Qualitative Serum (01/05/20 21:54) Comprehensive Metabolic Panel (01/05/20 21:54) Ed Iv/Invasive Line Start (01/05/20 21:54) Ketorolac Injection (Toradol Injection) (01/05/20 22:00) Lorazepam Injection (Ativan Injection) (01/05/20 22:00) Medications Given in ED Current Medications Medications Dose Ordered Sig/Kayode Route Start Time Stop Time Status Last Admin Dose Admin Ketorolac Tromethamine 15 mg ONCE ONCE IVP 01/05/20 22:00 01/05/20 22:01 DC 01/05/20 22:00 15 MG Lorazepam 1 mg ONCE ONCE IVP 01/05/20 22:00 01/05/20 22:01 DC 01/05/20 21:59 1 MG Vital Signs/I&O Capillary Refill : Departure Impression Primary Impression: Hx of seizure disorder Disposition: HOME, SELF-CARE Condition: Stable Departure-Patient Inst. Decision time for Depature: 22:11 Referrals: [facility] (PCP) Primary Care Physician DAVID CHOI APRN (Family) Primary Care Physician Patient Instructions: Seizures, Adult (DC) CELIA HUGHES APRN Jan 05, 2020 22:11
[2020-01-05 22:23] LABS: ALANINE AMINOTRANSFERASE 14 U/L (0-55); ALBUMIN 4.3 GM/DL (3.2-4.5); ALKALINE PHOSPHATASE 59 U/L (40-136); BILIRUBIN,TOTAL 0.2 MG/DL (0.1-1.0); BUN/CREATININE RATIO 13; CALCIUM 9.3 MG/DL (8.5-10.1); CARBON DIOXIDE 23 MMOL/L (21-32); CHLORIDE 103 MMOL/L (98-107); CREATININE SERUM 0.78 MG/DL (0.60-1.30); GFR ESTIMATED > 60; GLUCOSE 133 MG/DL (70-105); POTASSIUM 3.7 MMOL/L (3.6-5.0); SODIUM 138 MMOL/L (135-145); TOTAL PROTEIN 7.8 GM/DL (6.4-8.2)
[2020-01-05 22:34] VITALS: BP 140/64
== END 2020-01-05 22:34 | disposition home or self-care (01) ==
LOC: EDUNIT# 21:47 → ER 21:48
DX: G40.909 Epilepsy, unspecified, not intractable, without status epilepticus (principal); Z88.0 Allergy status to penicillin; Z88.8 Allergy status to other drugs, medicaments and biological substances; Z88.2 Allergy status to sulfonamides
CPT/HCPCS: 36415; 80053; 84703; 85025

== ENCOUNTER 2020-02-21 13:43 | Emergency (ER) | payer SELFPAY ==
[~2020-02-21] VITALS: Ht 165 cm; Wt 134.7 kg
--- NOTE | 2020-02-21 14:18 | ED Neurological Problem ---
General Chief Complaint: Neurological Problems Stated Complaint: LEFT SIDE FACIAL NUMBNESS;SEIZURE Nursing Triage Note: PT AMBULATES TO ROOM 5 C/O SUFFERING A SEIZURE EARLIER THIS AFTERNOON IN HER LIVING ROOM ON THE COUCH. PT STATES SHE WAS WATCHING TV AND WOKE ON HER COUCH STARING AT THE CEILING. PT STATES SHE HAS A SEIZURE HX, BUT TODAY SHE WOKE WITH FACIAL NUMBNESS TO THE LEFT FACE AFTER THIS ONE, WHICH IS NOT NORMAL FOR HER. PT DENIES FALLING, DENIES NECK PAIN, STATES SHE HAS A MIGRAINE NOW WHICH SHE HAS A HX OF Nursing Sepsis Screen: No Definite Risk Source: patient Exam Limitations: no limitations History of Present Illness Date Seen by Provider: February 21, 2020 Time Seen by Provider: 14:12 Initial Comments 24-year-old female who presents to the emergency room with complaints of left-s ided facial numbness and a seizure that she had around 1:00 today. She reports that she woke up this morning with a migraine headache and assume that she was going to have a seizure because this is pretty typical for her seizure behavior. She reports that she was watching TV and woke up lying on her couch staring at the ceiling. She continues to have a migraine at this time and reports that she has left-sided facial numbness. She is able to speak clearly, no slurred speech, is able to smile and control the left side of her face normally. Timing/Duration: 1-3 hours Associated Symptoms: denies symptoms Allergies and Home Medications Allergies Coded Allergies: amoxicillin (Verified Allergy, Unknown, 04/06/19) carbamazepine (Verified Allergy, Unknown, 04/06/19) shellfish derived (Verified Allergy, Unknown, 07/20/19) Penicillins (Unverified Adverse Reaction, Intermediate, 04/06/19) Sulfa (Sulfonamide Antibiotics) (Unverified Adverse Reaction, Intermediate, 04/06/19) Home Medications Butalb/Acetaminophen/Caffeine 1 Each Capsule, 2 EACH PO Q6H PRN for headache Prescribed by: CELIA HUGHES on 12/17/19 1631 Levetiracetam 1,000 Mg Tablet, 1,000 MG PO TID, (Reported) Patient Home Medication List Home Medication List Reviewed: Yes Review of Systems Review of Systems Constitutional: see HPI; No chills, No fever Eyes: See HPI; Denies Blindness, Denies Blurred Vision Ears, Nose, Mouth, Throat: see HPI; denies ear pain, denies ear discharge, denies nose pain, denies mouth pain Psychiatric/Neurological: See HPI, Numbness (left-sided facial numbness) All Other Systems Reviewed Negative Unless Noted: Yes Past Hnpqvad-Ucslvw-Qykesf Hx Past Med/Social Hx: Reviewed Nursing Past Med/Soc Hx Patient Social History Alcohol Use: Denies Use Number of Drinks Today: AA Alcohol Beverage of Choice: Beer Recreational Drug Use: No Smoking Status: Former Smoker Type Used: Cigarettes 2nd Hand Smoke Exposure: No Recent Foreign Travel: No Contact w/Someone Who Travel: No Recent Infectious Disease Expo: No Recent Hopitalizations: No Physical Abuse: No Sexual Abuse: No Mistreated: No Fear: No Immunizations Up To Date Tetanus Booster (TDap): Less than 5yrs PED Vaccines UTD: Yes Date of Pneumonia Vaccine: Apr 19, 2012 Date of Influenza Vaccine: Apr 19, 2012 Seasonal Allergies Seasonal Allergies: Yes Past Medical History Surgeries: Yes Adenoidectomy, Ear Surgery, Nephrectomy, Renal, Tonsillectomy Respiratory: No Cardiac: Yes High Cholesterol, Hypertension Neurological: Yes Headaches /Migraines, Seizure Disorder : No Last Menstrual Period: Feb 14, 2020 Reproductive Disorders: No Genitourinary: Yes Bladder Infection Gastrointestinal: No Musculoskeletal: No Endocrine: No HEENT: Yes Chronic Ear Infection Hearing Impairment: Hard of Hearing Cancer: No Psychosocial: Yes Anxiety, Depression Integumentary: No Blood Disorders: No Family Medical History Reviewed Nursing Family Hx No Pertinent Family Hx Physical Exam Vital Signs Vital Signs - First Documented 02/21/20 13:46 Temp 36.8 Pulse 78 Resp 20 B/P (MAP) 137/78 (97) Pulse Ox 95 O2 Delivery Room Air Capillary Refill : Less Than 3 Seconds Height, Weight, BMI Height: 5'5.00" Weight: 260lbs. 0oz. 117.614239nl; 49.00 BMI Method:Actual General Appearance: WD/WN, no apparent distress Respiratory: chest non-tender, lungs clear, normal breath sounds, no respiratory distress, no accessory muscle use, respiratory distress Cardiovascular: normal peripheral pulses, regular rate, rhythm, no edema, no gallop, no JVD, no murmur Gastrointestinal: normal bowel sounds, non tender, soft, no organomegaly, no pulsatile mass Neurologic/Psychiatric: alert, normal mood/affect, oriented x 3 Crainal Nerves: normal hearing, normal speech, PERRL; No abnormal speech, No fa cial asymmetry, No facial droop; facial paresthesias; No facial weakness Skin: normal color, warm/dry Progress/Results/Core Measures Results/Orders Lab Results Laboratory Tests Test 02/21/20 14:21 02/21/20 14:25 Range/Units White Blood Count 7.3 4.3-11.0 10^3/uL Red Blood Count 4.64 4.35-5.85 10^6/uL Hemoglobin 12.9 11.5-16.0 G/DL Hematocrit 39 35-52 % Mean Corpuscular Volume 84 80-99 FL Mean Corpuscular Hemoglobin 28 25-34 PG Mean Corpuscular Hemoglobin Concent 33 32-36 G/DL Red Cell Distribution Width 13.3 10.0-14.5 % Platelet Count 279 130-400 10^3/uL Mean Platelet Volume 10.0 7.4-10.4 FL Neutrophils (%) (Auto) 68 42-75 % Lymphocytes (%) (Auto) 24 12-44 % Monocytes (%) (Auto) 8 0-12 % Eosinophils (%) (Auto) 0 0-10 % Basophils (%) (Auto) 1 0-10 % Neutrophils # (Auto) 5.0 1.8-7.8 X 10^3 Lymphocytes # (Auto) 1.7 1.0-4.0 X 10^3 Monocytes # (Auto) 0.6 0.0-1.0 X 10^3 Eosinophils # (Auto) 0.0 0.0-0.3 10^3/uL Basophils # (Auto) 0.1 0.0-0.1 10^3/uL Sodium Level 140 135-145 MMOL/L Potassium Level 4.1 3.6-5.0 MMOL/L Chloride Level 106 98-107 MMOL/L Carbon Dioxide Level 22 21-32 MMOL/L Anion Gap 12 5-14 MMOL/L Blood Urea Nitrogen 11 7-18 MG/DL Creatinine 0.75 0.60-1.30 MG/DL Estimat Glomerular Filtration Rate > 60 BUN/Creatinine Ratio 15 Glucose Level 92 70-105 MG/DL Calcium Level 8.8 8.5-10.1 MG/DL Corrected Calcium 8.7 8.5-10.1 MG/DL Total Bilirubin 0.3 0.1-1.0 MG/DL Aspartate Amino Transf (AST/SGOT) 15 5-34 U/L Alanine Aminotransferase (ALT/SGPT) 19 0-55 U/L Alkaline Phosphatase 62 40-136 U/L Total Protein 6.9 6.4-8.2 GM/DL Albumin 4.1 3.2-4.5 GM/DL Urine Color YELLOW Urine Clarity CLEAR Urine pH 6.0 5-9 Urine Specific [place] 1.020 1.016-1.022 Urine Protein NEGATIVE NEGATIVE Urine Glucose (UA) NEGATIVE NEGATIVE Urine Ketones NEGATIVE NEGATIVE Urine Nitrite NEGATIVE NEGATIVE Urine Bilirubin NEGATIVE NEGATIVE Urine Urobilinogen 0.2 < = 1.0 MG/DL Urine Leukocyte Esterase TRACE H NEGATIVE Urine RBC (Auto) 1+ H NEGATIVE Urine RBC 0-2 /HPF Urine WBC 2-5 /HPF Urine Squamous Epithelial Cells 0-2 /HPF Urine Crystals PRESENT H /LPF Urine Amorphous Sediment FEW CEDRIC URATES H /LPF Urine Bacteria FEW H /HPF Urine Casts NONE /LPF Urine Mucus NEGATIVE /LPF Urine Culture Indicated YES My Orders Orders - ANDREW SUAREZ Comprehensive Metabolic Panel (02/21/20 14:11) Ua Culture If Indicated (02/21/20 14:11) Urine Bedside (02/21/20 14:11) Ed Iv/Invasive Line Start (02/21/20 14:11) Cbc With Automated Diff (02/21/20 14:11) Ct Head Wo (02/21/20 14:11) Urine Culture (02/21/20 14:25) Vital Signs/I&O 02/21/20 13:46 Temp 36.8 Pulse 78 Resp 20 B/P (MAP) 137/78 (97) Pulse Ox 95 O2 Delivery Room Air Blood Pressure Mean: 97 Progress Progress Note : Time: 15:16 Progress Note I have seen and evaluated the patient. I've informed her of her laboratory and imaging studies. She agrees with plan of care, plans for discharge, return precautions were given. Departure Impression Primary Impression: Migraine Additional Impression: Seizure Disposition: 01 HOME, SELF-CARE Condition: Stable/Unchanged Departure-Patient Inst. Decision time for Depature: 14:59 Referrals: [facility] (PCP) Primary Care Physician DAVDI CHOI APRN (Family) Primary Care Physician Patient Instructions: Seizures, Migraines in Adults Add. Discharge Instructions: Resume your home medications as previously prescribed. Follow-up with [facility] within 1 week for recheck. You may use ibuprofen and Tylenol as needed for migraine relief. Call today to schedule an appointment time. Return back to the emergency room for worsening symptoms or concerns as needed. All discharge instructions reviewed with patient and/or family. Voiced understanding. ANDREW SUAREZ February 21, 2020 14:17
[2020-02-21 14:33] LABS: BASOPHILS # (AUTO) 0.1 10^3/uL (0.0-0.1); BASOPHILS % (AUTO) 1 % (0-10); EOSINOPHILS % (AUTO) 0 % (0-10); HEMATOCRIT 39 % (35-52); HEMOGLOBIN 12.9 G/DL (11.5-16.0); LYMPHOCYTES # (AUTO) 1.7 X 10^3 (1.0-4.0); LYMPHOCYTES % (AUTO) 24 % (12-44); MEAN CORPUSCULAR HEMOGLOBIN 28 PG (25-34); MEAN CORPUSCULAR HGB CONC 33 G/DL (32-36); MEAN CORPUSCULAR VOLUME 84 FL (80-99); MONOCYTES # (AUTO) 0.6 X 10^3 (0.0-1.0); MONOCYTES % (AUTO) 8 % (0-12); NEUTROPHILS % (AUTO) 68 % (42-75); PLATELET COUNT 279 10^3/uL (130-400); RED CELL DISTRIBUTION WIDTH 13.3 % (10.0-14.5); WHITE BLOOD COUNT 7.3 10^3/uL (4.3-11.0)
[2020-02-21 14:37] LABS: BILIRUBIN,URINE NEGATIVE (NEGATIVE); CLARITY,URINE CLEAR; COLOR,URINE YELLOW; GLUCOSE, URINE (UA) NEGATIVE (NEGATIVE); KETONES,URINE NEGATIVE (NEGATIVE); LEUKOCYTE ESTERASE ,URINE TRACE (NEGATIVE); NITRITE,URINE NEGATIVE (NEGATIVE); PROTEIN,URINE NEGATIVE (NEGATIVE)
[2020-02-21 14:43] LABS: ALBUMIN 4.1 GM/DL (3.2-4.5)
[2020-02-21 14:44] LABS: CHLORIDE 106 MMOL/L (98-107); POTASSIUM 4.1 MMOL/L (3.6-5.0); SODIUM 140 MMOL/L (135-145)
[2020-02-21 14:45] LABS: CALCIUM 8.8 MG/DL (8.5-10.1)
[2020-02-21 14:46] LABS: GLUCOSE 92 MG/DL (70-105); TOTAL PROTEIN 6.9 GM/DL (6.4-8.2)
[2020-02-21 14:47] LABS: CARBON DIOXIDE 22 MMOL/L (21-32)
[2020-02-21 14:48] LABS: BILIRUBIN,TOTAL 0.3 MG/DL (0.1-1.0)
[2020-02-21 14:50] LABS: ALKALINE PHOSPHATASE 62 U/L (40-136); CREATININE SERUM 0.75 MG/DL (0.60-1.30); GFR ESTIMATED > 60
[2020-02-21 14:51] LABS: AMORPHOUS SEDIMENT,UR FEW AMOR URATES /LPF; BACTERIA,URINE FEW /HPF; RBC,URINE 0-2 /HPF; SQUAMOUS EPITHELIAL CELL,UR 0-2 /HPF
[2020-02-21 14:51] LABS: BUN/CREATININE RATIO 15
[2020-02-21 14:53] LABS: ALANINE AMINOTRANSFERASE 19 U/L (0-55)
--- NOTE | 2020-02-21 15:08 | Diagnostic Imaging Report ---
PROCEDURE: CT head without contrast. TECHNIQUE: Multiple contiguous axial images were obtained through the brain without the use of intravenous contrast. Auto Exposure Controls were utilized during the CT exam to meet ALARA standards for radiation dose reduction. INDICATION: Seizure, left facial numbness. COMPARISON: 11/20/2019. FINDINGS: There is no intracranial hemorrhage, hydrocephalus, edema, mass, mass effect, or evidence for elevation of the intracranial pressures. The basilar cisterns are patent. There is no sulcal effacement. The paranasal sinuses are clear. No calvarial fracture deformity. No change from the comparison study. IMPRESSION: Stable unremarkable CT head. Dictated by: Dictated on workstation # [id number]
[2020-02-21 15:14] VITALS: BP 137/78
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
--- OUTSIDE RECORDS SUMMARY | 2020-02-21 15:46 | XMS REPORT ---
Author Author Lina Chavez Doctor Organization [facility] Address Unknown Phone Unavailable Care Team Providers Care Talent Associate Name Role Phone Migration, Doctor Unavailable Unavailable PROBLEMS Type Condition ICD9-CM Code VSI78-AZ Code Onset Dates Condition S tatus SNOMED Code Problem Morbid obesity E66.01 Active 95573 6002 Problem Mixed hyperlipidemia E78.2 Active 391182750 Problem Acute seasonal allergic rhinitis, unspecified trigger J30.2 Active 731302651 Problem Insulin resistance E88.81 Active 2 02160930 Problem Seizures R56.9 Active 38262571 Problem Abnormal menstrual periods N92.6 Act marjorie 024955301 Problem Non compliance w medication regimen Z91.14 Active 732866996 Problem Abnormal bleeding in menstrual cycle N93.9 Active 951251290 Problem Acne L70.9 Active 84928168 Problem Seizure disorder G40.909 Active 128 583120 Problem Menstrual cramps N94.6 Active 431 492877 Problem Anxiety disorder, unspecified F41.9 Active 257611615 Problem MDD (major depressive disorder), recurrent episode, modera te F33.1 Active 338146640 ALLERGIES No Information ENCOUNTERS Encounter Location Date Diagnosis [place] [address] [facility] [id number] [address] [place] [phone] February, [place] [address] [facility] [id number] [address] [place] [phone] Jan, [place] [address] [facility] [id number] [address] [place] [phone] Jan, MDD (major depressive disord er), recurrent episode, moderate F33.1 and Anxiety disorder, unspecified F41.9 [place] [address] [facility] [id number] [address] [place] [phone] Jan, MDD (major depressive disord er), recurrent episode, moderate F33.1 [place] [address] [facility] [id number] [address] [place] [phone] Jan, MDD (major depressive disord er), recurrent episode, moderate F33.1 and Anxiety disorder, unspecified F41.9 [place] [address] [place] [id number] [address] [place] [phone] Dec, [place] [address] [place] [id number] [address] [place] [phone] Dec, Acute bilateral low back radha n without sciatica M54.5 and Seizures R56.9 [place] [address] [place] [id number] [address] [place] [phone] Dec, MDD (major depressive disord er), recurrent episode, moderate F33.1 and Anxiety disorder, unspecified F41.9 [facility] [place] [address] [address] [place] [id number] [address] [place] [address] Dec, Strain of lumbar region, ini tial encounter S39.012A [place] [address] [place] [id number] [address] [place] [phone] Dec, MDD (major depressive disord er), recurrent episode, moderate F33.1 and Anxiety disorder, unspecified F41.9 [place] [id number] [place] [address] Nov, [place] [address] [place] [id number] [address] [place] [address] Nov, Insulin resistance E88.81 [place] [address] [place] [id number] [address] [place] [phone] Nov, [facility] [address] [place] [id number] [address] [place] [phone] Nov, Strep pharyngitis J02.0 [place] [address] [place] [id number] [address] [place] [phone] Nov, MDD (major depressive disord er), recurrent episode, moderate F33.1 and Anxiety disorder, unspecified F41.9 [facility] [address] [facility] [id number] [address] [place] [phone] 13 Nov, 2019 Gastroenteritis K52.9 [facility] [address] [facility] [id number] [address] [place] [phone] 12 Nov, 2019 Abnormal menstrual periods N 92.6 [facility] [address] [facility] [id number] [address] [place] [phone] 06 Nov, 2019 Acute bilateral low back radha n, unspecified whether sciatica present M54.5 [facility] [address] [facility] [id number] [address] [place] [phone] 06 Nov, 2019 [facility] [address] [facility] [id number] [place] [phone] 04 Nov, 2019 MDD (major depressive disord er), recurrent episode, moderate F33.1 and Anxiety disorder, unspecified F41.9 [facility] [address] [place] [id number] [address] [place] [phone] 03 Nov, 2019 Acute bilateral low back radha n, unspecified whether sciatica present M54.5 [facility] [address] [place] [id number] [address] [place] [phone] Oct, Anxiety disorder, unspecifie d F41.9 and MDD (major depressive disorder), recurrent episode, moderate F33.1 [facility] [address] [place] [id number] [address] [place] [phone] Oct, [facility] [address] [place] [id number] [address] [place] [phone] Oct, Mood disorder F39 [facility] [address] [facility] [id number] [address] [place] [phone] Oct, [facility] [address] [place] [id number] [address] [place] [phone] Oct, [facility] [address] [place] [id number] [address] [place] [phone] Oct, Abnormal bleeding in menstru al cycle N93.9 [facility] [address] [place] [id number] [address] [place] [address] Oct, Abnormal bleeding in menstru al cycle N93.9 [facility] [address] [place] [id number] [address] [place] [phone] Sep, Mood disorder F39 [facility] [address] [place] [id number] [address] [place] [phone] Sep, Dysthymia F34.1 and Seizures R56.9 [place] [address] [place] [id number] [address] [place] [address] Sep, Seizure disorder G40.909 and Menstrual cramps N94.6 [facility] [address] [place] [id number] [place] [address] Sep, Laryngitis J04.0 and Sore th roat J02.9 [place] [address] [place] [id number] [address] [place] [address] Sep, Encounter for initial prescr iption of contraceptive pills Z30.011 and Seizure disorder G40.909 [place] [address] [address] Sep, Dysthymia F34.1 and Anxiety disorder, unspecified F41.9 [place] [id number] [place] [address] Sep, [place] [address] [address] Aug, Seizure disorder G40.909 ; E ncounter for initial prescription of contraceptive pills Z30.011 and Dysthymia F34.1 [facility] [address] [place] [id number] [place] [address] Aug, Injury of left ankle, subseq uent encounter S99.912D [place] [address] [place] [id number] [address] [place] [phone] Aug, [facility] [address] [facility] [id number] [address] [place] [phone] Aug, [facility] [address] [facility] [id number] [address] [place] [phone] Jul, [facility] [address] [facility] [id number] [address] [place] [phone] Jul, Seizures R56.9 and History o f UTI Z87.440 [facility] [address] [facility] [id number] [address] [place] [address] Jul, Seizure disorder G40.909 and Encounter for immunization Z23 [id number] [place] [address] Jul, Dysthymia F34.1 and Seizures R56.9 [facility] [address] [facility] [id number] [address] [place] [phone] Jul, [facility] [address] [facility] [id number] [address] [place] [address] Jul, Seizures R56.9 and Sprain of right knee, unspecified ligament, initial encounter S83.91XA [facility] [address] [facility] [id number] [address] [place] [phone] Jun, [facility] [address] [facility] [id number] [address] [place] [phone] Jun, [facility] [address] [facility] [id number] [address] [place] [phone] Jun, Seizures R56.9 [facility] [address] [facility] [id number] [address] [place] [phone] 13 Jun, 2019 Seizures R56.9 and Dysthymia F34.1 [facility] [address] [facility] [id number] [address] [place] [phone] 03 Jun, 2019 Acute non-recurrent frontal sinusitis J01.10 and Morbid obesity E66.01 [facility] [address] [id number] [address] [place] [phone] May, Seizures R56.9 and Morbid ob esity E66.01 [facility] [address] [facility] [id number] [address] [place] [phone] May, [facility] [address] [id number] [address] [place] [phone] Apr, Seizures R56.9 [facility] [address] [facility] [id number] [address] [place] [phone] Apr, Seizures R56.9 ; Morbid obes ity E66.01 and Rib pain R07.81 [facility] [address] [facility] [id number] [address] [place] [phone] Apr, Seizure R56.9 and Dysthymia F34.1 [facility] [address] [facility] [id number] [address] [place] [phone] Apr, [facility] [address] [facility] [id number] [address] [place] [phone] Mar, [facility] [address] [facility] [id number] [address] [place] [phone] Mar, [facility] [address] [place] [id number] [address] [place] [phone] Mar, Seizure R56.9 [facility] [address] [facility] [id number] [address] [place] [phone] Mar, [facility] [address] [place] [id number] [address] [place] [phone] February, Dysthymia F34.1 and Seizure R56.9 [facility] [address] [facility] [id number] [address] [place] [phone] Dec, Non-recurrent acute suppurat marjorie otitis media of left ear without spontaneous rupture of tympanic membrane H66.002 and Morbid obesity E66.01 [facility] [address] [facility] [id number] [address] [place] [phone] Nov, [facility] [address] [place] [id number] [address] [place] [address] Nov, [facility] [address] [address] Oct, Dysthymia F34.1 ; Seizure R5 6.9 ; Dermatitis L30.9 and BMI 45.0- 49.9, adult Z68.42 [facility] [address] [address] Sep, [place] [address] [address] May, Depression with anxiety F41. 8 [place] [address] [address] May, History of epilepsy Z86.69 [place] [address] [address] May, History of seizures Z87.898 ; Non compliance w medication regimen Z91.14 and Dysthymia F34.1 [place] [address] [address] Mar, History of seizures Z87.898 ; Frequent headaches R51 ; Non compliance w medication regimen Z91.14 and BMI 45.0-49.9, adult Z68.42 [place] [address] [address] Dec, Insulin resistance E88.81 ; BMI 40.0-44.9, adult Z68.41 ; Frequent headaches R51 and Non compliance w medication regimen Z91.14 [place] [address] [address] Nov, [place] [address] [address] Nov, Insulin resistance E88.81 [place] [address] [address] 05 Nov, [address] [address] 01 Nov, 2017 Hospital discharge follow-up Z09 ; BMI 40.0-44.9, adult Z68.41 and Metabolic syndrome E88.[address] [address] 30 Oct, 2017 Hospital discharge follow-up Z09 ; BMI 40.0-44.9, adult Z68.41 ; Morbid obesity E66.01 ; Metabolic syndrome E88.81 ; Non compliance w medication regimen Z91.14 and Seizure R56.9 [facility] [address] [address] 16 Sep, 2017 Sore throat J02.9 ; Right ac [place] serous otitis media, recurrence not specified H65.01 and Acute seasonal allergic rhinitis, unspecified trigger J30.2 [facility] [address] [address] Jul, Sore throat J02.9 and Pharyn gitis due to other organism J02.8 [facility] [address] [address] February, Sore throat J02.9 ; Acute mi ddle ear effusion, bilateral H65.193 and Strep pharyngitis J02.[address] [address] Aug, [address] [address] May, Acute otitis externa of both ears, unspecified type H60.503 ; Morbid obesity E66.01 and Non compliance w medication regimen Z91.14 [place] [address] [address] February, Morbid obesity E66.01 ; Anxi ety associated with depression F41.8 ; Episodic tension-type headache, not intractable G44.219 and High blood pressure (not hypertension) R03.[address] [address] Jan, Morbid obesity E66.01 ; Hist ory of epilepsy Z86.69 ; Metabolic syndrome E88.81 ; Anxiety associated with depression F41.8 and Hyperlipidemia E78.[address] [address] Dec, Morbid obesity E66.01 ; Acne L70.9 ; Family history of diabetes mellitus Z83.3 ; Anxiety associated with depression F41.8 ; Insulin resistance E88.81 ; Metabolic syndrome E88.81 and Hyperlipidemia E78.[address] [address] Dec, [address] [address] Nov, Routine health maintenance Z 00.00 ; Morbid obesity E66.01 ; Acne L70.9 and Family history of diabetes mellitus Z83.[address] [address] Nov, Routine health maintenance Z 00.00 ; Morbid obesity E66.01 ; Morbid obesity due to excess calories E66.01 ; History of epilepsy Z86.69 ; Acne L70.9 ; Family history of diabetes mellitus Z83.3 ; Family history of cancer Z80.9 ; Anxiety associated with depression F41.8 and 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 [address] Jun, Infective otitis externa [address] [address] May, Sore throat 462 and Sinusiti s 473.[address] [address] Mar, Sinusitis, acute 461.9 [facility] [address] [id number] [address] [place] [address], [place] [address] 14 Jan, 2015 [facility] [address] [id number] [address] [place] [address], [place] [address] Jan, [facility] [address] [id number] [address] [place] [address], [place] [address] Aug, [facility] [address] [id number] [address] [place] [address], [place] [address] Aug, [facility] [address] [id number] [address] [place] [address], [place] [address] May, [facility] [address] [id number] [address] [place] [address], [place] [address] May, [facility] [address] [id number] [address] [place] [address], [place] [address] Mar, [facility] [address] [id number] [address] [place] [address], [place] [address] Mar, [facility] [address] [id number] [address] [place] [address], [place] [address] Mar, [facility] [address] [id number] [address] [place] [address], [place] [address] Mar, [facility] [address] [id number] [address] [place] [address], [place] [address] Mar, [facility] [address] [id number] [address] [place] [address], [place] [address] Mar, [facility] [address] [id number] [address] [place] [address], [place] [address] Mar, [facility] [address] [id number] [address] [place] [address], [place] [address] Mar, [facility] [address] [id number] [address] [place] [address], [place] [address] 15 Oct, 2013 [facility] [address] [id number] [address] [place] [phone] Oct, [facility] [address] [id number] [address] [place] [phone] Oct, [facility] [address] [id number] [address] [place] [address] Oct, [facility] [address] [id number] [address] [place] [phone] Oct, [facility] [address] [id number] [address] [place] [address] Oct, [facility] [address] [id number] [address] [place] [address] Oct, [facility] [address] [id number] [address] [place] [phone] Sep, [facility] [address] [id number] [address] [place] [address] Sep, [facility] [address] [id number] [address] [place] [phone] Sep, [facility] [address] [id number] [address] [place] [phone] Sep, [facility] [address] [id number] [address] [place] [phone] Sep, [facility] [address] [id number] [address] [place] [phone] Jun, [facility] [address] [id number] [address] [place] [address] Jun, IMMUNIZATIONS No Known Immunizations SOCIAL HISTORY Never Assessed REASON FOR VISIT PLAN OF CARE VITAL SIGNS MEDICATIONS Unknown Medications RESULTS No Results PROCEDURES No Known procedures INSTRUCTIONS MEDICATIONS ADMINISTERED No Known Medications MEDICAL (GENERAL) HISTORY Type Description Date Medical History Depression Medical History Epilepsy Medical History [place] in Left ear Surgical History 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
--- OUTSIDE RECORDS SUMMARY | 2020-02-21 15:46 | XMS REPORT | Encounter Summary ---
Author Author [facility] Organization [facility] Address Unknown Phone Unavailable Care Team Providers Care Cyanide Pot Tender Name Role Phone BaldoBrigid HEIDY PCP Reason for Visit * Reason Comments Records Request [facility] : Encounter Details Care Team Description Date Type Department [place] Tejada, ALEXEI Records Request ([facility] :) 01/05/[address] Telephone [address] [address] Social History Date Tobacco Use Types Packs/Day Years Used Never Assessed Sex Assigned at Date Recorded Not on file Industry Job Start Date Occupation Not on file Not on file Not on file Travel End Travel History Travel Start No recent travel history available. documented as of this encounter Miscellaneous Notes * Telephone Encounter - Grace Tejada RN - 01/05/2020 4:34 PM CDT Lina William 1995 MEDICAL RECORDS REQUEST - [facility] : Request for the following medical records for purpose of continuity of care: Requested MRI head images to the cloud from 07/30/19 Thank you Grace Tejada RN [facility] documented in this encounter Plan of Treatment Not on filedocumented as of this encounter Visit Diagnoses Not on filedocumented in this encounter
--- OUTSIDE RECORDS SUMMARY | 2020-02-21 15:46 | XMS REPORT | Encounter Summary ---
Author Author [facility] Organization [facility] Address Unknown Phone Unavailable Care Team Providers Care Slp Teacher Name Role Phone Brigid Bland NP PCP Reason for Visit * Reason Comments Pre-Visit Planning New patient office visit pl anned for 01/13/20 2:45 [facility]ident [facility] Encounter Details Care Team Description Date Type Department [place] Tejada RN Pre-Visit Planning (New patient office v isit planned for 01/13/20 2:45 Resident Clinic) 01/05/2020 Telephone The [address] [address] Social History Date Tobacco Use Types Packs/Day Years Used Never Assessed Sex Assigned at Date Recorded Not on file Industry Job Start Date Occupation Not on file Not on file Not on file Travel End Travel History Travel Start No recent travel history available. documented as of this encounter Miscellaneous Notes * Telephone Encounter - Grace Tejada RN - 01/05/2020 12:21 PM CDT Initial Visit Date: New patient office visit planned for 01/13/20 2:45 Resident Clinic Reason for Visit: evaluate and treat Reports daily seizures Any recent injuries? Previous Diagnosis of Epilepsy? If Yes? Then by who and at what age? Physician Information PCP: Brigid Bland [facility] Referring Physician: Previous Neurologist: Other providers seen: Previous Imaging/Procedures: 07/30/19 MRI brain [facility] : unremarkable 06/05/18 CT Head [facility]: no identified acute intracra nial abnormality Upcoming [facility] Appointments: Recent ED/Hospitalizations: Current Meds: Levetiracetam 1000 mg TID Current Allergies: Tegretol . PCN ,Sulfa ,Macrobid Lamictal, Depakote Past Tried and Failed AED: Depakote - facial itching and throat closing. Tegret ol. Lamictal documented in this encounter Plan of Treatment Not on filedocumented as of this encounter Visit Diagnoses Not on filedocumented in this encounter
--- OUTSIDE RECORDS SUMMARY | 2020-02-21 15:46 | XMS REPORT | Encounter Summary ---
Author Author [facility] Organization [facility] Address Unknown Phone Unavailable Care Team Providers Care Cold Header Name Role Phone Brigid Bland [employer] PCP Reason for Visit * Reason Comments Pre-Visit Planning Encounter Details Care Team Description Date Type Department Resident, Lalo Epilepsy Pre-Visit Planning 01/12/2020 Telephone [facility] [id number] [place] [address] Social History Date Tobacco Use Types Packs/Day Years Used Never Assessed Sex Assigned at Date Recorded Not on file Industry Job Start Date Occupation Not on file Not on file Not on file Travel End Travel History Travel Start No recent travel history available. documented as of this encounter Miscellaneous Notes * Telephone Encounter - Patty Antoine RN - 01/12/2020 2:07 PM CDT Attempted to call pt to review medications prior to appointment tomorrow. No ans wer, message left documented in this encounter Plan of Treatment Not on filedocumented as of this encounter Visit Diagnoses Not on filedocumented in this encounter
--- OUTSIDE RECORDS SUMMARY | 2020-02-21 15:46 | XMS REPORT | Encounter Summary ---
Author Author [facility] Organization [facility] Address Unknown Phone Unavailable Care Team Providers Care Pi/Senior Research Associate Name Role Phone Brigid Bland NP PCP Encounter Details Care Team Description Date Type Department 02/15/2020 Travel Social History Date Tobacco Use Types Packs/Day Years Used Never Assessed Sex Assigned at Date Recorded Not on file Industry Job Start Date Occupation Not on file Not on file Not on file Travel End Travel History Travel Start No recent travel history available. Date Recorded COVID-19 Exposure Response 02/15/2020 11:49 AM CDT In the last month, have you been in contact with No / Unsure someone who was confirmed or suspected to have Coronavirus / COVID-19? documented as of this encounter Plan of Treatment Not on filedocumented as of this encounter Visit Diagnoses Not on filedocumented in this encounter
--- OUTSIDE RECORDS SUMMARY | 2020-02-21 15:46 | XMS REPORT | Clinical Summary ---
Author Author [facility] Organization [facility] Address Unknown Phone Unavailable Care Team Providers Care Supervisor Fish Processing Name Role Phone Brigid MOODY PCP Source Comments Some departments are not documenting in the electronic medical record. If you d o not see the information that you expected, contact Release of Information in [facility] [place] Information Management department at [phone] for further assistan ce in locating additional records.[facility] Allergies Comments Active Allergy Reactions Severity Noted Date Divalproex EDEMA Medium 01/05/2020 Lamotrigine UNKNOWN Low 01/05/2020 Nitrofurantoin RASH Medium 01/05/2020 Monohyd/M-Cryst Penicillins UNKNOWN Low 01/05/2020 Sulfa (Sulfonamide UNKNOWN Low 01/05/2020 Antibiotics) Carbamazepine UNKNOWN Low 01/05/2020 Medications End Date Status Medication Sig Dispensed Refills Start Date Active FLUoxetine (PROZAC) 20 mg Take 60 mg by 0 capsule mouth daily. Active hydrOXYzine pamoate Take 25 mg by 0 (VISTARIL) 25 mg capsule mouth 1 & 3 hours after meals and at bedtime as needed for Itching. Active Levetiracetam (KEPPRA) Take 1,000 mg 0 1,000 mg tab by mouth three times daily. Active ibuprofen (ADVIL) 200 mg Take 200 mg 0 tablet by mouth every 6 hours as needed for Pain. Take with food. Active ibuprofen (MOTRIN) 800 mg Take 800 mg 0 tablet by mouth every 6 hours as needed for Pain. Take with food. Active lacosamide (VIMPAT) 100 Take 50 mg 60 tablet 5 mg (1/2 tab) 0 twice daily for 1 wk then increase to 100 mg (1 tab) twice daily. Active Problems Problem Noted Date Intractable epilepsy without status epilepticus 12/19 Migraine without status migrainosus, not intractable 01/13/2020 Medication overuse headache 01/13/2020 Sleep disturbance 01/13/2020 Class 3 severe obesity with body mass index (BMI) of 45.0 to 49.9 in adult 01/13/2020 Encounters Care Team Description Date Type Specialty Jong Mckeon, CARLITOS-HEIDY Intractable epilepsy without status epil epticus, unspecified epilepsy type (HCC) (Primary Dx) 02/15/2020 Office Visit Neurology Telehealth 02/15/2020 Travel Sheyla Marquez MD Manchanda, Monika, MD Intractable epilepsy without status epil epticus, unspecified epilepsy type (HCC) (Primary Dx); Migraine without status migrainosus, not intractable, unspecified migraine type; Medication overuse headache; Sleep disturbance; Class 3 severe obesity with body mass index (BMI) of 45.0 to 49.9 in adult, unspecified obesity type, unspecified whether serious comorbidity present (HCC) 01/13/2020 Office Visit Neurology Resident, Lalo Epilepsy Pre-Visit Planning 01/12/2020 Telephone Neurology [place] Tejada RN Records Request ([place] [address] [facility] :) 01/05/2020 Telephone Neurology India Tejada RN Pre-Visit Planning (New patient office v isit planned for 01/13/20 2:45 Resident Clinic) 01/05/2020 Telephone Neurology from Last 3 Months Social History Date Tobacco Use Types Packs/Day [...] or suspected to have Coronavirus / COVID-19? Last Filed Vital Signs Not on file Plan of Treatment Health Maintenance Due Date Last Done Comments HPV VACCINES (1 - 2-dose 2004 series) HIV SCREENING 2008 DTAP/TDAP VACCINES (1 - 2011 Tdap) HEPATITIS C SCREENING 2011 PHYSICAL (COMPREHENSIVE) 2011 EXAM CERVICAL CANCER SCREENING 2014 INFLUENZA VACCINE 07/20/2020 Results Not on filefrom Last 3 Months Advance Directives Patient Extrusion Process Operator Explanation Type Date Recorded Advance Directive/DPOA
--- OUTSIDE RECORDS SUMMARY | 2020-02-21 15:46 | XMS REPORT | Encounter Summary ---
Author Author [facility] Organization [facility] Address Unknown Phone Unavailable Care Team Providers Care Tower Truck Driver Name Role Phone Brigid MOODY PCP Reason for Visit * Reason Comments Follow Up Seizure Encounter Details Care Team Description Date Type Department Jong Mckoen APRN-NP [address] [place] [address] Intractable epilepsy without status epil epticus, unspecified epilepsy type (HCC) (Primary Dx) 02/15/2020 Office Visit [facility] [address] [place] [address] [phone] Social History Date Tobacco Use Types Packs/Day [...] / COVID-19? documented as of this encounter Progress Notes * Jong Mckeon APRN-NP - 02/15/2020 2:15 PM CDT Tele-Health Progress Note This is a telemedicine visit that was performed with the originating site at [facility] and the distant site at [facility]'s offsite location. ? Obtained patient's verbal consent to treat them and their agreement to SKIP fatima policy and NPP via this telehealth visit during the Coronavirus Public Health Emergency ? I discussed with the patient the nature of our telemedicine visits, that: o I would evaluate the patient and recommend diagnostics and treatments based on my assessment o Our sessions are not being recorded and that personal health information is pr otected o Our team would provide follow up care in person if/when the patient needs it Patient Name: Lina William Age: 24 y.o. Sex: female Encounter Date: 02/15/2020 Date of tele-health visit:02/15/20 PCP: Brigid Bland Reason for visit/ chief complaint: Seizure/epilepsy follow up INTERVAL SUMMARY Lina William's first initial visit with Dr. Marquez was on 01/13/2020. She has been having starring spells up to 3x/day which is reported to be less fr equent than a month ago. She continues to have an aura of feeling nauseous before her right hand curls up before convulsing. This can occur up to 3 times a day and sometimes at night d uring sleep. She has reported urine and bowel incontinence and on occasion tong ue biting. Some postictal confusion. Lastly, she continues to have episodes of eye rolling before shaking and confusi on. Triggers: flashing lights, stress, axiety, migraines Overall, she's been having more seizures since her last visit. She has not star giovanny Vimpat or carbamazepine as previously recommended at her last visit. She st ates that she is allergic to carbamazepine and has not been able to afford Vimpa t. Currently, she denies any new onset neurological symptoms and agrees with e plan of care outlined below REVIEW OF SYSTEMS Review of Systems: A 10-point ROS is negative with the exception of pertinent positives as noted ab yamil in the HPI. Previously documented HPI (copied and reviewed) 24 y.o. y/o female with past medical [...] 4. Medication-overuse headache 5. Obstructive sleep apnea. ([place] sleepiness scale 16 with reports of waking up gasping for breath, poor sleep, snoring, and morbid obesity) 6. Obesity. BMI 49 7. H/o depression and anxiety Reccomendations: 1. 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 EDX: - vEEG for spell characterization and/or localization - She had an MRI brain wo in 07/2019 which was unremarkable. We cou ld consider MRI brain - epilepsy protocol once the patient has insurance and/or when she is admitted to the hospital for vEEG. - neuropsych testing when inpatient PAST MEDICAL HISTORY No past medical history on file. Patient Active Problem List Diagnosis Date Noted Intractable epilepsy without status epilepticus (HCC) 01/13/2020 Migraine without status migrainosus, not intractable 01/13/2020 Medication overuse headache 01/13/2020 Sleep disturbance 01/13/2020 Class 3 severe obesity with body mass index (BMI) of 45.0 to 49.9 in adult ( HCC) 01/13/2020 PAST SURGICAL HISTORY No past surgical history on file. FAMILY HISTORY No family history on file. SOCIAL HISTORY Social History Socioeconomic History Marital status: Unknown Spouse name: Not on file Number of children: Not on file Years of education: Not on file Highest education level: Not on file Occupational History Not on file Tobacco Use Smoking status: Not on file Substance and Sexual Activity Alcohol use: Not on file Drug use: Not on file Sexual activity: Not on file Other Topics Concern Not on file Social History Narrative Not on file Social History Substance and Sexual Activity Drug Use Not on file Social History Tobacco Use Smoking Status Not on file MEDICATION Current Outpatient Medications Medication Sig Dispense Refill FLUoxetine (PROZAC) 20 mg capsule Take 60 mg by mouth daily. hydrOXYzine pamoate (VISTARIL) 25 mg capsule Take 25 mg by mouth 1 & 3 hours after meals and at bedtime as needed for Itching. ibuprofen (ADVIL) 200 mg tablet Take 200 mg by mouth every 6 hours as needed for Pain. Take with food. ibuprofen (MOTRIN) 800 mg tablet Take 800 mg by mouth every 6 hours as neede d for Pain. Take with food. Levetiracetam (KEPPRA) 1,000 mg tab Take 1,000 mg by mouth three times daily . No current facility-administered medications for this visit. ALLERGIES Allergies Allergen Reactions Depakote [Divalproex] EDEMA Macrobid [Nitrofurantoin Monohyd/M-Cryst] RASH Lamictal [Lamotrigine] UNKNOWN Pcn [Penicillins] UNKNOWN Sulfa (Sulfonamide Antibiotics) UNKNOWN Tegretol [Carbamazepine] UNKNOWN PHYSICAL EXAMINATION PHYSICAL EXAM: General: Lina William is a well-appearing individual in no acute distress. Head: Head normocephalic, atraumatic. Neuro: Mental status: Awake and alert. Patient oriented to self, place, and time. General fund of knowledge and recent and remote memory appear intact based on subjective data/history provided. The patient is attentive and able participate. Speech is fluent with normal articulation. Language has intact comprehension; language content appears appropriate based on our conversation. Pupils round and equal Extraocular eye movements are full without nystagmus. Face appears symmetric at rest and with muscle activation. Hearing grossly intact. Tongue is normal in appearance and protrudes in the midline. Muscle bulk and tone appear normal No pronator drift. No asterixis No adventitious movements. Finger to nose testing normal without dysmetria. Rapid alternating movements in the upper extremities (finger tapping) are nor mal STUDIES REVIEWED No head imaging on file IMPRESSION/PLAN Summary: Lina William is a 24 y.o. 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 Plan: Continue AED regimen as follows: Keppra 1000 mg by mouth 3 times daily. She has not tried higher doses, but d ue to her kidney condition, I recommend not increasing this dose. As previously recommended, start Vimpat 50 mg twice daily for 1 week then inc rease to 100 mg twice daily. Pending continuous video EEG admission She has not tried magnesium for her headaches Seizure safety precautions discussed with the patient Follow up with me in [address] Marquez in 4 months Approximately 25 minutes were spent with the patient of which more than 50% were spent in counseling and coordination of care on 02/15/20. The patient understan ds and agrees with the plan of care. Electronically signed by MAYRA [place] Epilepsy [facility] Epilepsy [facility] on 02/15/2020 at 1:57 PM. documented in this encounter Plan of Treatment Not on filedocumented as of this encounter Visit Diagnoses Diagnosis Intractable epilepsy without status epi lepticus, unspecified epilepsy type (HCC) documented in this encounter
--- OUTSIDE RECORDS SUMMARY | 2020-02-21 15:47 | XMS REPORT ---
Author Author Lina Begum Organization [facility] Address [address] [place] [address] Care Team Providers Care Senior Credit Analyst Name Role Phone GUILLERMO Begum Unavailable PROBLEMS Type Condition ICD9-CM Code OBT87-QN Code Onset Dates Condition S tatus SNOMED Code Problem Morbid obesity E66.01 Active 84021 6002 Problem Mixed hyperlipidemia E78.2 Active 698365125 Problem Acute seasonal allergic rhinitis, unspecified trigger J30.2 Active 270408073 Problem Insulin resistance E88.81 Active 2 34629606 Problem Seizures R56.9 Active 94913694 Problem Abnormal menstrual periods N92.6 Act marjorie 576463018 Problem Non compliance w medication regimen Z91.14 Active 863122620 Problem Abnormal bleeding in menstrual cycle N93.9 Active 668695954 Problem Acne L70.9 Active 71352500 Problem Seizure disorder G40.909 Active 128 722314 Problem Menstrual cramps N94.6 Active 431 395343 Problem Anxiety disorder, unspecified F41.9 Active 478869457 Problem MDD (major depressive disorder), recurrent episode, modera te F33.1 Active 826612243 ALLERGIES No Information ENCOUNTERS Encounter Location Date Diagnosis [place] [id number] [address] 07 Jan, 2020 [facility] [address] [address] Jan, [facility] [address] [address] Dec, [facility] [address] [address] Dec, [facility] [address] [address] Dec, Acute bilateral low back pain without sc iatica M54.5 and Seizures R56.9 [place] [address] [address] [place] [id number] 03 Dec, 2019 MDD (major depressive disorder), recurre nt episode, moderate F33.1 and Anxiety disorder, unspecified F41.9 [facility] [place]note 2[place] [id number] [place] [address] Dec, Strain of lumbar region, ini tial encounter S39.012A [place] [address] [address] [place] [id number] Dec, MDD (major depressive disorder), recurre nt episode, moderate F33.1 and Anxiety disorder, unspecified F41.9 [place] [address] [address] [place] [id number] 28 Nov, 2019 [place] [address] [address] 24 Nov, 2019 Insulin resistance E88.81 [place] [address] [address] Nov, [facility] [place] [address] [address] Nov, Strep pharyngitis J02.0 [place] [address] [address] 18 Nov, 2019 MDD (major depressive disorder), recurre nt episode, moderate F33.1 and Anxiety disorder, unspecified F41.9 [facility] [place] [address] [address] 13 Nov, 2019 Gastroenteritis K52.9 [place] [address] [address] 12 Nov, 2019 Abnormal menstrual periods N92.6 [place] [address] [address] 06 Nov, 2019 Acute bilateral low back pain, unspecifi ed whether sciatica present M54.5 [place] [address] [address] 06 Nov, 2019 [place] [address] [address] Nov, MDD (major depressive disorder), recurre nt episode, moderate F33.1 and Anxiety disorder, unspecified F41.9 [place] [address] [address] Nov, Acute bilateral low back pain, unspecifi ed whether sciatica present M54.5 [place] [address] [address] Oct, Anxiety disorder, unspecified F41.9 and MDD (major depressive disorder), recurrent episode, moderate F33.1 [place] [address] [address] Oct, [place] [address] [address] Oct, Mood disorder F39 [place] [address] [address] Oct, [place] [address] [address] Oct, [place] [address] [address] Oct, Abnormal bleeding in menstrual cycle N93 .9 [place] [address] [address] Oct, Abnormal bleeding in menstrual cycle N93 .9 [place] [address] [address] Sep, Mood disorder F39 [place] [address] [address] Sep, Dysthymia F34.1 and Seizures R56.9 [place] [address] [address] Sep, Seizure disorder G40.909 and Menstrual c ramps N94.6 [facility] [address] [facility] [id number] [address] [address] Sep, Laryngitis J04.0 and Sore th roat J02.9 [facility] [address] [address] Sep, Encounter for initial prescription of co ntraceptive pills Z30.011 and Seizure disorder G40.909 [facility] [address] [address] Sep, Dysthymia F34.1 and Anxiety disorder, un specified F41.9 [place] [address] [address] Sep, [facility] [address] [address] Aug, Seizure disorder G40.909 ; Encounter for initial prescription of contraceptive pills Z30.011 and Dysthymia F34.1 [facility] [address] [facility] [id number] [place] [address] Aug, Injury of left ankle, subseq uent encounter S99.912D [facility] [address] [address] Aug, [place] [address] [address] Aug, [facility] [address] [address] Jul, [place] [address] [address] Jul, Seizures R56.9 and History of UTI Z87.44 0 [facility] [address] [address] Jul, Seizure disorder G40.909 and Encounter f or immunization Z23 [address] [place] [address] Jul, Dysthymia F34.1 and Seizures R56.9 [place] [address] [address] Jul, [place] [address] [address] Jul, Seizures R56.9 and Sprain of right knee, unspecified ligament, initial encounter S83.91XA [place] [address] [address] Jun, [place] [address] [address] Jun, [place] [address] [address] Jun, Seizures R56.9 [place] [address] [address] Jun, Seizures R56.9 and Dysthymia F34.1 [place] [address] [address] Jun, Acute non-recurrent frontal sinusitis J0 1.10 and Morbid obesity E66.01 [place] [address] [address] May, Seizures R56.9 and Morbid obesity E66.01 [place] [address] [address] May, [place] [address] [address] Apr, Seizures R56.9 [place] [address] [address] Apr, Seizures R56.9 ; Morbid obesity E66.01 a nd Rib pain R07.81 [place] [address] [address] Apr, Seizure R56.9 and Dysthymia F34.1 [place] [address] [address] [place] [id number] [place] [address] Apr, [facility] [address] [address] Mar, [facility] [address] [address] Mar, [facility] [address] [address] Mar, Seizure R56.9 [place] [address] [address] Mar, [place] [address] [address] February, Dysthymia F34.1 and Seizure R56.9 [facility] [address] [place] [id number] [address] [place] [address] Dec, Non-recurrent acute suppurat marjorie otitis media of left ear without spontaneous rupture of tympanic membrane H66.002 and Morbid obesity E66.01 [facility] [address] [place] [address] Nov, [facility] [address] [place] [id number] [address] [place] [address] Nov, [place] [address] [address] Oct, Dysthymia F34.1 ; Seizure R56.9 ; Dermat itis L30.9 and BMI 45.0-49.9, adult Z68.42 [place] [address] [address] [place] [id number] [place] [address] Sep, [place] [address] [address] May, Depression with anxiety F41.8 [place] [address] [address] May, History of epilepsy Z86.69 [place] [address] [address] 02 May, 2018 History of seizures Z87.898 ; Non compli ance w medication regimen Z91.14 and Dysthymia F34.1 [place] [address] [address] 13 Mar, 2018 History of seizures Z87.898 ; Frequent h eadaches R51 ; Non compliance w medication regimen Z91.14 and BMI 45.0-49.9, adult Z68.[address] [address] Dec, Insulin resistance E88.81 ; BMI 40.0-44. 9, adult Z68.41 ; Frequent headaches R51 and Non compliance w medication regimen Z91.[address] [address] 27 Nov, [address] [address] Nov, Insulin resistance E88.[address] [address] Nov, [address] [address] Nov, Hospital discharge follow-up Z09 ; BMI 4 0.0-44.9, adult Z68.41 and Metabolic syndrome E88.[address] [address] 30 Oct, 2017 Hospital discharge follow-up Z09 ; BMI 4 0.0-44.9, adult Z68.41 ; Morbid obesity E66.01 ; Metabolic syndrome E88.81 ; Non compliance w medication regimen Z91.14 and Seizure R56.9 [facility] [address] [id number] [address] [place] [address] 16 Sep, 2017 Sore throat J02.9 ; Right ac amy serous otitis media, recurrence not specified H65.01 and Acute seasonal allergic rhinitis, unspecified trigger J30.2 [facility] [address] [facility] [id number] [address] [place] [address] Jul, Sore throat J02.9 and Pharyn gitis due to other organism J02.8 [facility] [address] [facility] [id number] [place] [address] February, Sore throat J02.9 ; Acute mi ddle ear effusion, bilateral H65.193 and Strep pharyngitis J02.0 [place] [address] [address] Aug, [address] [address] May, Acute otitis externa of both ears, unspe cified type H60.503 ; Morbid obesity E66.01 and Non compliance w medication regimen Z91.[address] [address] February, Morbid obesity E66.01 ; Anxiety associat ed with depression F41.8 ; Episodic tension-type headache, not intractable G44.219 and High blood pressure (not hypertension) R03.[address] [address] Jan, Morbid obesity E66.01 ; History of epile psy Z86.69 ; Metabolic syndrome E88.81 ; Anxiety associated with depression F41.8 and Hyperlipidemia E78.[address] [address] Dec, Morbid obesity E66.01 ; Acne L70.9 ; Fam tena history of diabetes mellitus Z83.3 ; Anxiety associated with depression F41.8 ; Insulin resistance E88.81 ; Metabolic syndrome E88.81 and Hyperlipidemia E78.[address] [address] Dec, [address] [address] Nov, Routine health maintenance Z00.00 ; Morb id obesity E66.01 ; Acne L70.9 and Family history of diabetes mellitus Z83.3 [facility] [address] [address] 25 Nov, 2016 Routine health maintenance Z00.00 ; Morb id obesity E66.01 ; Morbid obesity due to excess calories E66.01 ; History of epilepsy Z86.69 ; Acne L70.9 ; Family history of diabetes mellitus Z83.3 ; Family history of cancer Z80.9 ; Anxiety associated with depression F41.8 and 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 [facility] [address] [address] Jun, Infective otitis externa 380.10 [place] [address] [address] May, Sore throat 462 and Sinusitis 473.9 [place] [address] [address] 11 Mar, 2015 Sinusitis, acute 461.9 [facility] [address] [address] 14 Jan, 2015 [facility] [address] [address] Jan, [facility] [address] [address] Aug, [facility] [address] [address] Aug, [facility] [address] [address] May, [facility] [address] [address] May, [facility] [address] [address] Mar, [facility] [address] [address] Mar, [facility] [address] [place] [address] 24 Mar, 2014 [facility] [address] [facility] [id number] [place] [address] 24 Mar, 2014 [facility] [address] [id number] [place] [address] Mar, [facility] [address] [id number] [place] [address] Mar, [facility] [address] [id number] [place] [address] Mar, [facility] [address] [id number] [place] [address] Mar, [facility] [address] [id number] [place] [address] 15 Oct, 2013 [facility] [address] [id number] [place] [address] 14 Oct, 2013 [facility] [address] [id number] [place] [address] 14 Oct, 2013 [facility] [address] [id number] [place] [address] Oct, [facility] [address] [id number] [place] [address] Oct, [facility] [address] [id number] [place] [address] Oct, [facility] [address] [id number] [place] [address] Oct, [facility] [address] [id number] [place] [address] Sep, [facility] [address] [id number] [place] [address] Sep, [facility] [address] [id number] [place] [address] Sep, [facility] [address] [id number] [place] [address] Sep, [facility] [address] [facility] [id number] [place] [address] Sep, [facility] [address] [facility] [id number] [place] [address] 17 Jun, 2012 [facility] [address] [facility] [id number] [place] [address] 08 Jun, 2012 IMMUNIZATIONS No Known Immunizations SOCIAL HISTORY Never Assessed REASON FOR VISIT PLAN OF CARE VITAL SIGNS Height 65 in 2013-11-01 Weight 237 lbs 2013-11-01 Temperature 98 degrees Fahrenheit 2013-11-01 Heart Rate 96 bpm 2013-11-01 Respiratory Rate 18 2013-11-01 Blood pressure systolic 130 mmHg 2013-11-01 Blood pressure diastolic 80 mmHg 2013-11-01 MEDICATIONS Unknown Medications RESULTS No Results PROCEDURES Procedure Date Ordered Result Body Site URINE TEST Nov 01, 2013 ASSAY THYROID STIM HORMONE Nov 01, 2013 ASSAY OF TOTAL TESTOSTERONE Nov 01, 2013 ASSAY OF PROLACTIN Nov 01, 2013 GLYCATED HEMOGLOBIN TEST Nov 01, 2013 VENIPUNCT, ROUTINE* Nov 01, 2013 INSTRUCTIONS MEDICATIONS ADMINISTERED No Known Medications MEDICAL (GENERAL) HISTORY Type Description Date Medical History Depression Medical History Epilepsy Medical History [place] in Left ear Surgical History 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
--- OUTSIDE RECORDS SUMMARY | 2020-02-21 15:47 | XMS REPORT ---
Author Author Lina SAVAGE Organization [facility] Address [address] [place] [address] Care Team Providers Care Field Clerk Name Role Phone SILVER SAVAGE Unavailable PROBLEMS Type Condition ICD9-CM Code ZAO85-RG Code Onset Dates Condition S tatus SNOMED Code Problem Morbid obesity E66.01 Active 97503 6002 Problem Mixed hyperlipidemia E78.2 Active 569974044 Problem Acute seasonal allergic rhinitis, unspecified trigger J30.2 Active 110072131 Problem Insulin resistance E88.81 Active 2 90869021 Problem Seizures R56.9 Active 68183352 Problem Abnormal menstrual periods N92.6 Act marjorie 233357543 Problem Non compliance w medication regimen Z91.14 Active 035036159 Problem Abnormal bleeding in menstrual cycle N93.9 Active 549784867 Problem Acne L70.9 Active 11618780 Problem Seizure disorder G40.909 Active 128 945004 Problem Menstrual cramps N94.6 Active 431 394760 Problem Anxiety disorder, unspecified F41.9 Active 821514595 Problem MDD (major depressive disorder), recurrent episode, modera te F33.1 Active 006635700 ALLERGIES No Information ENCOUNTERS Encounter Location Date Diagnosis [facility] [address] [facility] [id number] [address] [place] [phone] 07 Jan, 2020 [facility] [address] [facility] [id number] [address] [place] [phone] Jan, [facility] [address] [facility] [id number] [address] [place] [address] Dec, [facility] [address] [facility] [id number] [address] [place] [address] Dec, Acute bilateral low back radha n without sciatica M54.5 and Seizures R56.9 [facility] [address] [facility] [id number] [address] [place] [address] Dec, MDD (major depressive disord er), recurrent episode, moderate F33.1 and Anxiety disorder, unspecified F41.9 [facility] [address] [place] [id number] [address] [place] [address] Dec, Strain of lumbar region, ini tial encounter S39.012A [place] [address] [place] [id number] [address] [place] [address] Dec, MDD (major depressive disord er), recurrent episode, moderate F33.1 and Anxiety disorder, unspecified F41.9 [place] [address] [place] [id number] [place] [address] Nov, [place] [address] [place] [id number] [place] [address] Nov, Insulin resistance E88.81 [place] [address] [address] Nov, [facility] [address] [place] [id number] [address] [place] [address] Nov, Strep pharyngitis J02.0 [place] [address] [place] [id number] [place] [address] 18 Nov, 2019 MDD (major depressive disord er), recurrent episode, moderate F33.1 and Anxiety disorder, unspecified F41.9 [facility] [address] [place] [id number] [address] [place] [phone] 13 Nov, 2019 Gastroenteritis K52.9 [place] [address] [place] [id number] [address] [place] [address] 12 Nov, 2019 Abnormal menstrual periods N 92.6 [place] [address] [place] [id number] [place] [address] 06 Nov, 2019 Acute bilateral low back radha n, unspecified whether sciatica present M54.5 [place] [address] [place] [address] 06 Nov, 2019 [facility] [address] [id number] [address] [place] [phone] Nov, MDD (major depressive disord er), recurrent episode, moderate F33.1 and Anxiety disorder, unspecified F41.9 [facility] [address] [id number] [address] [place] [phone] Nov, Acute bilateral low back radha n, unspecified whether sciatica present M54.5 [facility] [address] [id number] [address] [place] [address] Oct, Anxiety disorder, unspecifie d F41.9 and MDD (major depressive disorder), recurrent episode, moderate F33.1 [facility] [address] [facility] [id number] [address] [place] [address] Oct, [facility] [address] [facility] [id number] [address] [place] [phone] Oct, Mood disorder F39 [facility] [address] [facility] [id number] [address] [place] [phone] Oct, [facility] [address] [facility] [id number] [address] [place] [address] Oct, [facility] [address] [facility] [id number] [address] [place] [address] Oct, Abnormal bleeding in menstru al cycle N93.9 [facility] [address] [facility] [id number] [address] [place] [address] Oct, Abnormal bleeding in menstru al cycle N93.9 [facility] [address] [facility] [id number] [address] [place] [address] Sep, Mood disorder F39 [facility] [address] [facility] [id number] [address] [place] [address] Sep, Dysthymia F34.1 and Seizures R56.9 [facility] [address] [place] [id number] [place] [address] Sep, Seizure disorder G40.909 and Menstrual cramps N94.6 [facility] [address] [place] [id number] [place] [address] Sep, Laryngitis J04.0 and Sore th roat J02.9 [facility] [address] [address] Sep, Encounter for initial prescr iption of contraceptive pills Z30.011 and Seizure disorder G40.909 [place] [address] [address] Sep, Dysthymia F34.1 and Anxiety disorder, unspecified F41.9 [place] [address] [address] Sep, [facility] [address] [address] Aug, Seizure disorder G40.909 ; E ncounter for initial prescription of contraceptive pills Z30.011 and Dysthymia F34.1 [facility] [address] [address] Aug, Injury of left ankle, subseq uent encounter S99.912D [facility] [address] [address] Aug, [facility] [address] [address] Aug, [facility] [address] [address] Jul, [place] [address] [address] Jul, Seizures R56.9 and History o f UTI Z87.440 [facility] [address] [address] Jul, Seizure disorder G40.909 and Encounter for immunization Z23 [facility] DELONG [address] [id number] [place] [address] Jul, Dysthymia F34.1 and Seizures R56.9 [facility] [address] [facility] [id number] [address] [place] [address] Jul, [facility] [address] [facility] [id number] [address] [place] [address] Jul, Seizures R56.9 and Sprain of right knee, unspecified ligament, initial encounter S83.91XA [facility] [address] [facility] [id number] [address] [place] [address] Jun, [facility] [address] [facility] [id number] [address] [place] [phone] Jun, [facility] [address] [facility] [id number] [address] [place] [address] Jun, Seizures R56.9 [facility] [address] [facility] [id number] [address] [place] [address] Jun, Seizures R56.9 and Dysthymia F34.1 [facility] [address] [facility] [id number] [address] [place] [address] Jun, Acute non-recurrent frontal sinusitis J01.10 and Morbid obesity E66.01 [facility] [address] [facility] [id number] [address] [place] [address] May, Seizures R56.9 and Morbid ob esity E66.01 [facility] [address] [facility] [id number] [address] [place] [address] May, [facility] [address] [facility] [id number] [address] [place] [address] Apr, Seizures R56.9 [facility] [address] [facility] [id number] [address] [place] [address] Apr, Seizures R56.9 ; Morbid obes ity E66.01 and Rib pain R07.81 [facility] [address] [facility] [id number] [address] [place] [address] Apr, Seizure R56.9 and Dysthymia F34.1 [facility] [address] [facility] [id number] [address] [place] [address] Apr, [facility] [address] [place] [id number] [place] [address] Mar, [facility] [address] [facility] [id number] [address] [place] [address] Mar, [facility] [address] [address] Mar, Seizure R56.9 [facility] [address] [place] [id number] [place] [address] Mar, [facility] [address] [address] February, Dysthymia F34.1 and Seizure R56.9 [facility] [address] [place] [id number] [place] [address] Dec, Non-recurrent acute suppurat marjorie otitis media of left ear without spontaneous rupture of tympanic membrane H66.002 and Morbid obesity E66.01 [facility] [address] [place] [id number] [address] [place] [address] Nov, [facility] [address] [place] [id number] [address] [place] [address] Nov, [facility] [address] [address] Oct, Dysthymia F34.1 ; Seizure R5 6.9 ; Dermatitis L30.9 and BMI 45.0- 49.9, adult Z68.42 [facility] [address] [place] [id number] [address] [place] [address] Sep, [place] [address] [address] May, Depression with anxiety F41. 8 [place] [address] [address] May, History of epilepsy Z86.69 [place] [address] [address] 02 May, 2018 History of seizures Z87.898 ; Non compliance w medication regimen Z91.14 and Dysthymia F34.1 [place] [address] [address] 13 Mar, 2018 History of seizures Z87.898 ; Frequent headaches R51 ; Non compliance w medication regimen Z91.14 and BMI 45.0-49.9, adult Z68.42 [place] [address] [address] Dec, Insulin resistance E88.81 ; BMI 40.0-44.9, adult Z68.41 ; Frequent headaches R51 and Non compliance w medication regimen Z91.14 [place] [address] [address] 27 Nov, 2017 [place] [address] [address] Nov, Insulin resistance E88.81 [place] [address] [address] Nov, [place] [address] [address] Nov, Hospital discharge follow-up Z09 ; BMI 40.0-44.9, adult Z68.41 and Metabolic syndrome E88.81 [place] [address] [place] [id number] [address] [place] [address] Oct, Hospital discharge follow-up Z09 ; BMI 40.0-44.9, adult Z68.41 ; Morbid obesity E66.01 ; Metabolic syndrome E88.81 ; Non compliance w medication regimen Z91.14 and Seizure R56.9 [facility] [address] [address] Sep, Sore throat J02.9 ; Right ac amy serous otitis media, recurrence not specified H65.01 and Acute seasonal allergic rhinitis, unspecified trigger J30.2 [facility] [address] [address] Jul, Sore throat J02.9 and Pharyn gitis due to other organism J02.8 [facility] [address] [address] February, Sore throat J02.9 ; Acute mi ddle ear effusion, bilateral H65.193 and Strep pharyngitis J02.0 [place] [address] [address] Aug, [place] [address] [address] May, Acute otitis externa of both ears, unspecified type H60.503 ; Morbid obesity E66.01 and Non compliance w medication regimen Z91.14 [place] [address] [address] February, Morbid obesity E66.01 ; Anxi ety associated with depression F41.8 ; Episodic tension-type headache, not intractable G44.219 and High blood pressure (not hypertension) R03.0 [place] [address] [address] Jan, Morbid obesity E66.01 ; Hist ory of epilepsy Z86.69 ; Metabolic syndrome E88.81 ; Anxiety associated with depression F41.8 and Hyperlipidemia E78.5 [place] [address] [address] Dec, Morbid obesity E66.01 ; Acne L70.9 ; Family history of diabetes mellitus Z83.3 ; Anxiety associated with depression F41.8 ; Insulin resistance E88.81 ; Metabolic syndrome E88.81 and Hyperlipidemia E78.5 [place] [address] [address] Dec, [place] [address] [address] Nov, Routine health maintenance Z 00.00 ; Morbid obesity E66.01 ; Acne L70.9 and Family history of diabetes mellitus Z83.3 [place] [address] [address] Nov, Routine health maintenance Z 00.00 ; Morbid obesity E66.01 ; Morbid obesity due to excess calories E66.01 ; History of epilepsy Z86.69 ; Acne L70.9 ; Family history of diabetes mellitus Z83.3 ; Family history of cancer Z80.9 ; Anxiety associated with depression F41.8 and 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 [place] [address] [address] Jun, Infective otitis externa [address] [address] May, Sore throat 462 and Sinusiti s 473.[address] [address] Mar, Sinusitis, acute 461.9 [place] [address] [address] 14 Jan, 2015 [place] [address] [address] Jan, [place] [address] [address] Aug, [place] [address] [address] Aug, [place] [address] [place] [address] May, [facility] [address] [id number] [address] [place] [address], [place] [address] May, [facility] [address] [id number] [address] [place] [address], [place] [address] Mar, [facility] [address] [id number] [address] [place] [address], [place] [address] Mar, [facility] [address] [id number] [address] [place] [address], [place] [address] Mar, [facility] [address] [id number] [address] [place] [address], [place] [address] Mar, [facility] [address] [id number] [address] [place] [address], [place] [address] Mar, [facility] [address] [id number] [address] [place] [address], [place] [address] Mar, [facility] [address] [id number] [address] [place] [address], [place] [address] Mar, [facility] [address] [id number] [address] [place] [address], [place] [address] Mar, [facility] [address] [id number] [address] [place] [address], [place] [address] Oct, [facility] [address] [id number] [address] [place] [address], [place] [address] Oct, [facility] [address] [id number] [address] [place] [address], [place] [address] Oct, [facility] [address] [id number] [address] [place] [address], [place] [address] Oct, [facility] [address] [id number] [address] [place] [address], [place] [address] Oct, [facility] [address] [id number] [address] [place] [address], [place] [address] 07 Oct, 2013 [facility] [address] [id number] [address] [place] [address] Oct, [facility] [address] [id number] [address] [place] [address] Sep, [facility] [address] [id number] [address] [place] [address] Sep, [facility] [address] [id number] [address] [place] [address] Sep, [facility] [address] [id number] [address] [place] [address] Sep, [facility] [address] [id number] [address] [place] [address] Sep, [facility] [address] [id number] [address] [place] [address] Jun, [facility] [address] [id number] [address] [place] [address] 08 Jun, 2012 IMMUNIZATIONS No Known Immunizations SOCIAL HISTORY Never Assessed REASON FOR VISIT PLAN OF CARE VITAL SIGNS Height 65 in 2013-10-26 Weight 238.6 lbs 2013-10-26 Temperature 98.8 degrees Fahrenheit 2013-10-26 Heart Rate 88 bpm 2013-10-26 Respiratory Rate 20 2013-10-26 Blood pressure systolic 128 mmHg 2013-10-26 Blood pressure diastolic 76 mmHg 2013-10-26 MEDICATIONS Unknown Medications RESULTS No Results PROCEDURES Procedure Date Ordered Result Body Site REMOVAL IMPACTED CERUMEN REQUIRING INSTUMENTATION UNILATERAL Oct 26, 2013 INSTRUCTIONS MEDICATIONS ADMINISTERED No Known Medications MEDICAL (GENERAL) HISTORY Type Description Date Medical History Depression Medical History Epilepsy 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
--- OUTSIDE RECORDS SUMMARY | 2020-02-21 15:47 | XMS REPORT ---
Author Author Lina RICHARDS Organization [facility] Address [address] [place] [address] Care Team Providers Care Straightedge Man Name Role Phone NOEL RICHARDS Unavailable PROBLEMS Type Condition ICD9-CM Code ZMW17-BF Code Onset Dates Condition S tatus SNOMED Code Problem Morbid obesity E66.01 Active 22856 6002 Problem Mixed hyperlipidemia E78.2 Active 669860777 Problem Acute seasonal allergic rhinitis, unspecified trigger J30.2 Active 457207228 Problem Insulin resistance E88.81 Active 2 84655344 Problem Seizures R56.9 Active 12292203 Problem Abnormal menstrual periods N92.6 Act marjorie 333436010 Problem Non compliance w medication regimen Z91.14 Active 835268592 Problem Abnormal bleeding in menstrual cycle N93.9 Active 943841321 Problem Acne L70.9 Active 30885678 Problem Seizure disorder G40.909 Active 128 954547 Problem Menstrual cramps N94.6 Active 431 282027 Problem Anxiety disorder, unspecified F41.9 Active 059129103 Problem MDD (major depressive disorder), recurrent episode, modera te F33.1 Active 799233638 ALLERGIES No Information ENCOUNTERS Encounter Location Date Diagnosis [facility] [address] [facility] [id number] [place] [phone] Jan, [facility] [address] [facility] [id number] [place] [phone] Jan, [facility] [address] [facility] [id number] [place] [phone] Dec, [facility] [address] [facility] [id number] [place] [phone] Dec, [facility] [address] [facility] [id number] [place] [id number] Dec, Acute bilateral low back radha n without sciatica M54.5 and Seizures R56.9 [place] [address] [place] [id number] [address] [place] [phone] Dec, MDD (major depressive disord er), recurrent episode, moderate F33.1 and Anxiety disorder, unspecified F41.9 [facility] [address] [place] [id number] [address] [place] [id number] Dec, Strain of lumbar region, ini tial encounter S39.012A [place] [address] [place] [id number] [address] [place] [id number] Dec, MDD (major depressive disord er), recurrent episode, moderate F33.1 and Anxiety disorder, unspecified F41.9 [place] [address] [place] [id number] [place] [phone] Nov, [place] [address] [place] [id number] [address] [place] [id number] 24 Nov, 2019 Insulin resistance E88.81 [place] [address] [place] [id number] [address] [place] [phone] Nov, [facility] [place] [address] [place] [id number] [address] [place] [phone] Nov, Strep pharyngitis J02.0 [place] [address] [place] [id number] [address] [place] [id number] 18 Nov, 2019 MDD (major depressive disord er), recurrent episode, moderate F33.1 and Anxiety disorder, unspecified F41.9 [facility] [address] [place] [id number] [place] [id number] 13 Nov, 2019 Gastroenteritis K52.9 [place] [address] [place] [id number] [address] [place] [id number] 12 Nov, 2019 Abnormal menstrual periods N 92.6 [place] [address] [place] [id number] [address] [place] [phone] 06 Nov, 2019 Acute bilateral low back radha n, unspecified whether sciatica present M54.5 [facility] [address] [id number] [address] [place] [phone] 06 Nov, 2019 [facility] [address] [id number] [address] [place] [phone] 04 Nov, 2019 MDD (major depressive disord er), recurrent episode, moderate F33.1 and Anxiety disorder, unspecified F41.9 [facility] [address] [id number] [address] [place] [id number] 03 Nov, 2019 Acute bilateral low back radha n, unspecified whether sciatica present M54.5 [facility] [address] [id number] [address] [place] [phone] Oct, Anxiety disorder, unspecifie d F41.9 and MDD (major depressive disorder), recurrent episode, moderate F33.1 [facility] [address] [id number] [address] [place] [phone] Oct, [facility] [address] [id number] [address] [place] [phone] Oct, Mood disorder F39 [facility] [address] [id number] [address] [place] [id number] Oct, [facility] [address] [id number] [address] [place] [phone] Oct, [facility] [address] [facility] [id number] [place] [id number] Oct, Abnormal bleeding in menstru al cycle N93.9 [facility] [address] [id number] [address] [place] [phone] Oct, Abnormal bleeding in menstru al cycle N93.9 [facility] [address] [id number] [address] [place] [id number] Sep, Mood disorder F39 [facility] [address] [id number] [address] [place] [id number] Sep, Dysthymia F34.1 and Seizures R56.9 [facility] [address] [facility] [id number] [place] [id number] Sep, Seizure disorder G40.909 and Menstrual cramps N94.6 [facility] [address] [facility] [id number] [place] [id number] Sep, Laryngitis J04.0 and Sore th roat J02.9 [facility] [address] [facility] [id number] [place] [id number] Sep, Encounter for initial prescr iption of contraceptive pills Z30.011 and Seizure disorder G40.909 [place] [address] [place] [id number] [place] [phone] Sep, Dysthymia F34.1 and Anxiety disorder, unspecified F41.9 [place] [id number] [place] [id number] Sep, [facility] [address] [place] [id number] [address] [place] [id number] Aug, Seizure disorder G40.909 ; E ncounter for initial prescription of contraceptive pills Z30.011 and Dysthymia F34.1 [facility] [address] [place] [id number] [address] [place] [id number] Aug, Injury of left ankle, subseq uent encounter S99.912D [place] [id number] [facility] [id number] [place] [id number] Aug, [place] [address] [place] [id number] [address] [place] [phone] Aug, [place] [address] [facility] [id number] [place] [id number] Jul, [place] [address] [place] [id number] [address] [place] [id number] Jul, Seizures R56.9 and History o f UTI Z87.440 [facility] [address] [id number] [address] [place] [id number] Jul, Seizure disorder G40.909 and Encounter for immunization Z23 [id number] [place] [address] Jul, Dysthymia F34.1 and Seizures R56.9 [facility] [address] [id number] [address] [place] [phone] Jul, [facility] [address] [id number] [address] [place] [id number] Jul, Seizures R56.9 and Sprain of right knee, unspecified ligament, initial encounter S83.91XA [facility] [address] [facility] [id number] [place] [phone] Jun, [facility] [address] [id number] [address] [place] [phone] Jun, [facility] [address] [id number] [address] [place] [phone] Jun, Seizures R56.9 [facility] [address] [facility] [id number] [place] [id number] Jun, Seizures R56.9 and Dysthymia F34.1 [facility] [address] [facility] [id number] [place] [phone] Jun, Acute non-recurrent frontal sinusitis J01.10 and Morbid obesity E66.01 [facility] [address] [id number] [address] [place] [id number] May, Seizures R56.9 and Morbid ob esity E66.01 [facility] [address] [facility] [id number] [place] [phone] May, [facility] [address] [facility] [id number] [place] [id number] Apr, Seizures R56.9 [facility] [address] [id number] [address] [place] [id number] Apr, Seizures R56.9 ; Morbid obes ity E66.01 and Rib pain R07.81 [facility] [address] [id number] [address] [place] [phone] Apr, Seizure R56.9 and Dysthymia F34.1 [facility] [address] [facility] [id number] [place] [phone] Apr, [facility] [address] [facility] [id number] [place] [phone] Mar, [facility] [address] [id number] [address] [place] [phone] Mar, [facility] [address] [facility] [id number] [place] [phone] Mar, Seizure R56.9 [facility] [address] [facility] [id number] [place] [phone] Mar, [facility] [address] [facility] [id number] [place] [id number] February, Dysthymia F34.1 and Seizure R56.9 [facility] [address] [facility] [id number] [place] [id number] Dec, Non-recurrent acute suppurat marjorie otitis media of left ear without spontaneous rupture of tympanic membrane H66.002 and Morbid obesity E66.01 [facility] [address] [id number] [address] [place] [phone] Nov, [facility] [address] [facility] [id number] [place] [phone] Nov, [facility] [address] [facility] [id number] [place] [phone] Oct, Dysthymia F34.1 ; Seizure R5 6.9 ; Dermatitis L30.9 and BMI 45.0- 49.9, adult Z68.42 [place] [address] [address] Sep, [place] [address] [address] May, Depression with anxiety F41. [address] [address] May, History of epilepsy Z86.69 [place] [address] [address] 02 May, 2018 History of seizures Z87.898 ; Non compliance w medication regimen Z91.14 and Dysthymia F34.1 [place] [address] [address] Mar, History of seizures Z87.898 ; Frequent headaches R51 ; Non compliance w medication regimen Z91.14 and BMI 45.0-49.9, adult Z68.42 [place] [address] [address] Dec, Insulin resistance E88.81 ; BMI 40.0-44.9, adult Z68.41 ; Frequent headaches R51 and Non compliance w medication regimen Z91.14 [place] [address] [address] Nov, [place] [address] [address] Nov, Insulin resistance E88.81 [place] [address] [address] Nov, [place] [address] [address] Nov, Hospital discharge follow-up Z09 ; BMI 40.0-44.9, adult Z68.41 and Metabolic syndrome E88.81 [place] [address] [address] Oct, Hospital discharge follow-up Z09 ; BMI 40.0-44.9, adult Z68.41 ; Morbid obesity E66.01 ; Metabolic syndrome E88.81 ; Non compliance w medication regimen Z91.14 and Seizure R56.9 [facility] [address] [address] Sep, Sore throat J02.9 ; Right ac algaaciq serous otitis media, recurrence not specified H65.01 and Acute seasonal allergic rhinitis, unspecified trigger J30.2 [facility] [address] [address] Jul, Sore throat J02.9 and Pharyn gitis due to other organism J02.8 [facility] [address] [address] February, Sore throat J02.9 ; Acute mi ddle ear effusion, bilateral H65.193 and Strep pharyngitis J02.0 [place] [address] [address] Aug, [place] [address] [address] May, Acute otitis externa of both ears, unspecified type H60.503 ; Morbid obesity E66.01 and Non compliance w medication regimen Z91.14 [place] [address] [address] February, Morbid obesity E66.01 ; Anxi ety associated with depression F41.8 ; Episodic tension-type headache, not intractable G44.219 and High blood pressure (not hypertension) R03.0 [place] [address] [address] Jan, Morbid obesity E66.01 ; Hist ory of epilepsy Z86.69 ; Metabolic syndrome E88.81 ; Anxiety associated with depression F41.8 and Hyperlipidemia E78.5 [place] [address] [address] 10 Dec, 2015 Morbid obesity E66.01 ; Acne L70.9 ; Family history of diabetes mellitus Z83.3 ; Anxiety associated with depression F41.8 ; Insulin resistance E88.81 ; Metabolic syndrome E88.81 and Hyperlipidemia E78.[address] [address] Dec, [place] [address] [address] Nov, Routine health maintenance Z 00.00 ; Morbid obesity E66.01 ; Acne L70.9 and Family history of diabetes mellitus Z83.[address] [address] Nov, Routine health maintenance Z 00.00 ; Morbid obesity E66.01 ; Morbid obesity due to excess calories E66.01 ; History of epilepsy Z86.69 ; Acne L70.9 ; Family history of diabetes mellitus Z83.3 ; Family history of cancer Z80.9 ; Anxiety associated with depression F41.8 and 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 [address] Jun, Infective otitis externa [address] [address] May, Sore throat 462 and Sinusiti s 473.9 [place] [address] [address] Mar, Sinusitis, acute 461.[address] [address] 14 Jan, 2015 [place] [address] [address] 13 Jan, [address] [address] Aug, [facility] [address] [id number] [address] [place] [address], [place] [address] Aug, [facility] [address] [id number] [address] [place] [address], [place] [address] May, [facility] [address] [id number] [address] [place] [address], [place] [address] May, [facility] [address] [id number] [address] [place] [address], [place] [address] Mar, [facility] [address] [id number] [address] [place] [address], [place] [address] Mar, [facility] [address] [id number] [address] [place] [address], [place] [address] Mar, [facility] [address] [id number] [address] [place] [address], [place] [address] Mar, [facility] [address] [id number] [address] [place] [address], [place] [address] Mar, [facility] [address] [id number] [address] [place] [address], [place] [address] Mar, [facility] [address] [id number] [address] [place] [address], [place] [address] Mar, [facility] [address] [id number] [address] [place] [address], [place] [address] Mar, [facility] [address] [id number] [address] [place] [address], [place] [address] 15 Oct, 2013 [facility] [address] [id number] [address] [place] [address], [place] [address] 14 Oct, 2013 [facility] [address] [id number] [address] [place] [address], [place] [address] 14 Oct, 2013 [facility] [address] [id number] [address] [place] [address], [place] [address] 13 Oct, 2013 [facility] [address] [id number] [address] [place] [address], [place] [address] Oct, [facility] [address] [id number] [address] [place] [phone] Oct, [facility] [address] [id number] [address] [place] [phone] Oct, [facility] [address] [id number] [address] [place] [phone] Sep, [facility] [address] [id number] [address] [place] [id number] Sep, [facility] [address] [id number] [address] [place] [phone] Sep, [facility] [address] [id number] [address] [place] [phone] Sep, [facility] [address] [id number] [address] [place] [phone] Sep, [facility] [address] [id number] [address] [place] [phone] Jun, [facility] [address] [id number] [address] [place] [phone] Jun, IMMUNIZATIONS No Known Immunizations SOCIAL HISTORY Never Assessed REASON FOR VISIT PLAN OF CARE VITAL SIGNS Height 65 in 2013-11-02 Weight 238.5 lbs 2013-11-02 Temperature 98.6 degrees Fahrenheit 2013-11-02 Heart Rate 72 bpm 2013-11-02 Respiratory Rate 18 2013-11-02 Blood pressure systolic 130 mmHg 2013-11-02 Blood pressure diastolic 78 mmHg 2013-11-02 MEDICATIONS Unknown Medications RESULTS No Results PROCEDURES No Known procedures INSTRUCTIONS MEDICATIONS ADMINISTERED No Known Medications MEDICAL (GENERAL) HISTORY Type Description Date Medical History Depression Medical History Epilepsy Medical History INAJA in Left ear Surgical History 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
--- OUTSIDE RECORDS SUMMARY | 2020-02-21 15:51 | XMS REPORT | Continuity of Care Document ---
Author Organization Unknown Address Unknown Phone Unavailable Allergies Active Description Code Type Severity Reaction Onset Reported/Identified Relationship to Patient Clinical Status Yes Penicillins Drug Allergy N/A N/A 06/27/2012 Yes Sulfa(Sulfonamide Antibiotics) Drug Allergy N/A N/A 06/27/2012 Yes Tegretol Drug Allergy N/A N/A 06/27/2012 Yes Keppra 500 mg tablet Drug Phil rgy N/A N/A 07/06/2012 Yes Penicillins [id number] Drug Aller gy Moderate N/A 04/06/2019 Yes Sulfa (Sulfonamide Antibiotics) [id number] Drug Allergy Moderate N/A 2018 Yes amoxicillin [id number] Drug Aller gy Unknown N/A 04/06/2019 Yes carbamazepine [id number] Pierre g Allergy Unknown N/A 04/06/2019 Yes shellfish derived [id number] Drug Allergy Unknown N/A 07/20/2019 Medications There is no data. Problems Date Dx Coded Attending Type Code Diagnosis Diagnosed By 06/27/2012 GEOFF REED APRN 345.00 GENERALIZED NONCONVULSIVE EPILEPSY WITHOUT INTRACTABLE EPILEPSY 06/27/2012 NOEL MEYERS APRN 345.00 GENERALIZED NONCONVULSIVE EPILEPSY WITHO UT INTRACTABLE EPILEPSY 06/27/2012 SILVER SAVAGE MD 345.0 0 GENERALIZED NONCONVULSIVE EPILEPSY WITHOUT INTRACTABLE EPILEPSY 06/27/2012 NOEL MEYERS APRN 345.00 GENERALIZED NONCONVULSIVE EPILEPSY WITHO UT INTRACTABLE EPILEPSY 06/27/2012 GEOFF REED APRN 345.00 GENERALIZED NONCONVULSIVE EPILEPSY WITHOUT INTRACTABLE EPILEPSY 06/27/2012 NOEL MEYERS APRN 345.00 GENERALIZED NONCONVULSIVE EPILEPSY WITHO UT INTRACTABLE EPILEPSY 06/27/2012 345.00 GEN ERALIZED NONCONVULSIVE EPILEPSY WITHOUT INTRACTABLE EPILEPSY 07/11/2012 Ot 780.39 OTH ER CONVULSIONS 07/11/2012 Ot 781.0 ABN INVOLUN MOVEMENT NEC 08/21/2012 Ot 599.0 URIN TRACT INFECTION NOS 08/21/2012 Ot 922.2 CONT USION ABDOMINAL WALL 08/21/2012 Ot 959.12 OTH INJURY OF ABDOMEN 08/21/2012 Ot E000.8 OTH ER EXTERNAL CAUSE STATUS 08/21/2012 Ot E019.0 ACT IVITIES INVOLVING WALKING AN ANIMAL 08/21/2012 Ot E888.9 FAL L NOS 09/21/2012 Ot 465.9 ACUT E URI NOS 09/21/2012 Ot 786.2 COUGH 09/20/2013 GEOFF REED APRN R 692.9 CONTACT DERMATITIS AND OTHER ECZEMA UNSPECIFIED CAUSE 09/20/2013 NOEL MEYERS APRN N 692.9 CONTACT DERMATITIS AND OTHER ECZEMA UNSPECIFIED CAUSE 09/20/2013 SILVER SAVAGE MD 692.9 CONTACT DERMATITIS AND OTHER ECZEMA UNSPECIFIED CAUSE 09/20/2013 NOEL MEYERS APRN N 692.9 CONTACT DERMATITIS AND OTHER ECZEMA UNSPECIFIED CAUSE 09/20/2013 GEOFF REED APRN R 692.9 CONTACT DERMATITIS AND OTHER ECZEMA UNSPECIFIED CAUSE 09/20/2013 MALIA MEYERS APRNCY N 692.9 CONTACT DERMATITIS AND OTHER ECZEMA UNSPECIFIED CAUSE 09/20/2013 692.9 CONT ACT DERMATITIS AND OTHER ECZEMA UNSPECIFIED CAUSE 09/30/2013 NOEL MEYERS APRN N V58.69 LONG-TERM (CURRENT) USE OF OTHER MEDICATIONS 09/30/2013 MALIA MEYERS APRNCY N V67.9 UNSPECIFIED FOLLOW-UP EXAMINATION 09/30/2013 SILVER SAVAGE MD V58.6 9 LONG-TERM (CURRENT) USE OF OTHER MEDICATIONS 09/30/2013 SILVER SAVAGE MD V67.9 UNSPECIFIED FOLLOW-UP EXAMINATION 09/30/2013 NOEL MEYERS APRN N V58.69 LONG-TERM (CURRENT) USE OF OTHER MEDICATIONS 09/30/2013 MALIA MEYERS APRNCY N V67.9 UNSPECIFIED FOLLOW-UP EXAMINATION 09/30/2013 GEOFF REED APRN R V58.69 LONG-TERM (CURRENT) USE OF OTHER MEDICATIONS 09/30/2013 GEOFF REED APRN R V67.9 UNSPECIFIED FOLLOW-UP EXAMINATION 09/30/2013 GARCIA CASHERO GIG TENDER, NOEL N V58.69 LONG-TERM (CURRENT) USE OF OTHER MEDICATIONS 09/30/2013 GARCIA CASHNATE GIG TENDER, NOEL N V67.9 UNSPECIFIED FOLLOW-UP EXAMINATION 09/30/2013 V58.69 LETTY G-TERM (CURRENT) USE OF OTHER MEDICATIONS 09/30/2013 V67.9 UNSP ECIFIED FOLLOW- UP EXAMINATION 10/26/2013 SILVER SAVAGE MD 380.4 IMPACTED CERUMEN 10/26/2013 SILVER SAVAGE MD 465.9 ACUTE UPPER RESPIRATORY INFECTIONS OF UNSPECIFIED SITE 10/26/2013 GARCIA CASHNATE GIG TENDER, NOEL N 380.4 IMPACTED CERUMEN 10/26/2013 GARCIA CASHERO GIG TENDER, NOEL N 465.9 ACUTE UPPER RESPIRATORY INFECTIONS OF UNSPECIFIED SITE 10/26/2013 SHANKAR REED APRNIA R 380.4 IMPACTED CERUMEN 10/26/2013 SHANKAR REED APRNIA R 465.9 ACUTE UPPER RESPIRATORY INFECTIONS OF UNSPECIFIED SITE 10/26/2013 GARCIA PRACHINOEL SULLIVAN APRN N 380.4 IMPACTED CERUMEN 10/26/2013 GARCIA MISA GIG TENDER, NOEL N 465.9 ACUTE UPPER RESPIRATORY INFECTIONS OF UNSPECIFIED SITE 10/26/2013 380.4 IMPA CTED CERUMEN 10/26/2013 465.9 ACUT E UPPER RESPIRATORY INFECTIONS OF UNSPECIFIED SITE 11/01/2013 GARCIA CASHNATE CARLITOS, NOEL N 278.00 OBESITY 11/01/2013 GARCIA MISA CARLITOS, NOEL N 626.0 AMENORRHEA 11/01/2013 SHANKAR REED APRNIA R 278.00 OBESITY 11/01/2013 SHANKAR REED APRNIA R 626.0 AMENORRHEA 11/01/2013 GARCIA CASHNATE GIG TENDER, NOEL N 278.00 OBESITY 11/01/2013 GARCIA CASHERO GIG TENDER, NOEL N 626.0 AMENORRHEA 11/01/2013 278.00 OBESITY 11/01/2013 626.0 AMEN ORRHEA 11/02/2013 GARCIA CASHNATE URBINA, NOEL N 784.49 OTHER VOICE AND RESONANCE DISORDERS 11/02/2013 GARCIA CASHMALIA SULLIVAN APRNCY N 786.2 COUGH 11/02/2013 GEOFF REED APRN R 784.49 OTHER VOICE AND RESONANCE DISORDERS 11/02/2013 GEOFF REED APRN R 786.2 COUGH 11/02/2013 GARCIAMALIA RICHARDSON APRNCY N 784.49 OTHER VOICE AND RESONANCE DISORDERS 11/02/2013 NOEL MEYERS APRN N 786.2 COUGH 11/02/2013 784.49 OTH ER VOICE AND RESONANCE DISORDERS 11/02/2013 786.2 COUGH 11/04/2013 BASILIO CANALES Ot 466.0 ACUTE BRONCHITIS 11/04/2013 BASILIO CANALES Ot 786.2 COUGH 02/01/2014 JUAN LUIS HOLLINS, STEF T Ot 346.90 MIGRAINE UNSPECIFIED W/O INTRACT MGRN W/ 02/12/2014 BRENDAN HOLLINS, DELISA A Ot 346. 90 MIGRAINE UNSPECIFIED W/O INTRACT MGRN W/ 02/12/2014 BRENDAN HOLLINS, DELISA A Ot 784. 0 HEADACHE 02/14/2014 BRENDAN HOLLINS, DELISA A Ot 346. 90 MIGRAINE UNSPECIFIED W/O INTRACT MGRN W/ 02/14/2014 BRENDAN HOLLINS, DELISA A Ot 784. 0 HEADACHE 04/04/2014 RAÚL PRICE SHAQ Geo Ot 784.0 HEADACHE 04/06/2014 BRIANNA LONGON, GEOFF R 345.80 OTHER FORMS OF EPILEPSY AND RECURRENT SE IZURES WITHOUT MENTION OF INTRACTABLE EPILEPSY 04/06/2014 PEEWEE REED APRNRICIA R 368.8 OTHER SPECIFIED VISUAL DISTURBANCES 04/06/2014 BRIANNA LONGON, GEOFF R 784.0 HEADACHE 04/06/2014 BRIANNA URBINA GEOFF R 787.02 NAUSEA ALONE 04/06/2014 BRIANNA URBINA GEOFF R 787.03 VOMITING ALONE 04/06/2014 MALIA MEYERS APRNCY N 345.80 OTHER FORMS OF EPILEPSY AND RECURRENT SE IZURES WITHOUT MENTION OF INTRACTABLE EPILEPSY 04/06/2014 MALIA MEYERS APRNCY N 368.8 OTHER SPECIFIED VISUAL DISTURBANCES 04/06/2014 MALIA MEYERS APRNCY N 784.0 HEADACHE 04/06/2014 JOSE BYNUM GIG TENDERMALIA HernandesCY N 787.02 NAUSEA ALONE 04/06/2014 MALIA MEYERS APRNCY N 787.03 VOMITING ALONE 04/06/2014 345.80 OTH ER FORMS OF EPILEPSY AND RECURRENT SEIZURES WITHOUT MENTION OF INTRACTABLE EPILEPSY 04/06/2014 368.8 OTHE R SPECIFIED VISUAL DISTURBANCES 04/06/2014 784.0 HEADACHE 04/06/2014 787.02 FARHEEN SEA ALONE 04/06/2014 787.03 VOM ITING ALONE 07/24/2014 BASILIO CANALES Ot 4 62 ACUTE PHARYNGITIS 07/24/2014 BASILIO CANALES Ot 464.00 ACUTE LARYNGITIS W/O OBSTRUCTION 07/24/2014 BASILIO CANALES Ot 466.0 ACUTE BRONCHITIS 09/29/2014 DELISA CARDONA MD Ot 784. 0 HEADACHE 09/29/2014 DELISA CARDONA MD Ot 787. 03 VOMITING ALONE 03/24/2015 CELIA HUGHES APRN Ot 462 ACUTE PHARYNGITIS 03/24/2015 CELIA HUGHES APRN Ot 466 .0 ACUTE BRONCHITIS 05/16/2015 SHAQ OLSEN DO Ot 784.0 HEADACHE 06/21/2015 ANTONIA BARNES DO Ot 382.9 OTITIS MEDIA NOS 06/21/2015 ANTONIA BARNES DO Ot 388.70 OTALGIA NOS 06/24/2015 CELIA HUGHES APRN Ot 382 .9 OTITIS MEDIA NOS 06/24/2015 CELIA HUGHES APRN Ot 388.70 OTALGIA NOS 09/03/2015 RONDA CHASE MD Ot H92.09 OTALGIA, UNSPECIFIED EAR 09/03/2015 RONDA CHASE MD Ot J02.9 ACUTE PHARYNGITIS, UNSPECIFIED 09/03/2015 RONDA CHASE MD Ot R05 COUGH 10/14/2015 SHAQ OLSEN DO Ot N39.0 URINARY TRACT INFECTION, SITE NOT SPECIF 10/14/2015 SHAQ OLSEN DO Ot Z90.5 ACQUIRED ABSENCE OF KIDNEY 11/26/2015 BASILIO CANALES Ot G43.909 MIGRAINE, UNSP, NOT INTRACTABLE, WITHOUT 11/26/2015 BASILIO CANALES Ot N39.0 URINARY TRACT INFECTION, SITE NOT SPECIF 12/04/2015 CELIA HUGHES APRN Ot N61 INFLAMMATORY DISORDERS OF BREAST 12/16/2015 BASILIO CANALES Ot J20.9 ACUTE BRONCHITIS, UNSPECIFIED 12/16/2015 BASILIO CANALES Ot R11.2 NAUSEA WITH VOMITING, UNSPECIFIED 12/16/2015 CELIA HUGHES GIG TENDER Ot N61 12/20/2015 JUAN LUIS HOLLINS, STEF Ortega Ot E78.0 PURE HYPERCHOLESTEROLEMIA 12/20/2015 JUAN LUIS HOLLINS, STEF Ortega Ot F41.9 ANXIETY DISORDER, UNSPECIFIED 12/20/2015 JUAN LUIS HOLLINS, STEF Ortega Ot I10 ESSENTIAL (PRIMARY) HYPERTENSION 12/20/2015 JUAN LUIS HOLLINS, STEF Ortega Ot R07.89 OTHER CHEST PAIN 12/20/2015 JUAN LUIS HOLLINS, STEF Ortega Ot Z79.899 OTHER DOCTOR ASSISTANT (CURRENT) DRUG THERAPY 02/16/2016 ECLIA HUGHES GIG TENDER Ot N39 .0 URINARY TRACT INFECTION, SITE NOT SPECIF 02/16/2016 CELIA HUGHES GIG TENDER Ot R51 HEADACHE 02/19/2016 CELIA HUGHES GIG TENDER Ot N39 .0 URINARY TRACT INFECTION, SITE NOT SPECIF 02/19/2016 CELIA HUGHES GIG TENDER Ot R51 HEADACHE 04/30/2016 CELIA HUGHES GIG TENDER Ot R51 HEADACHE 05/01/2016 CELIA HUGHES GIG TENDER Ot R51 HEADACHE 05/10/2016 CELIA HUGHES GIG TENDER Ot H66.91 OTITIS MEDIA, UNSPECIFIED, RIGHT EAR 05/10/2016 CELIA HUGHES GIG TENDER Ot H92.01 OTALGIA, RIGHT EAR 05/13/2016 CELIA HUGHES GIG TENDER Ot H66.91 OTITIS MEDIA, UNSPECIFIED, RIGHT EAR 05/13/2016 CELIA HUGHES GIG TENDER Ot H92.01 OTALGIA, RIGHT EAR 07/04/2016 JUNO ABRAHAM MD Ot J04 .0 ACUTE LARYNGITIS 07/04/2016 JUNO ABRAHAM MD Ot J06 .9 ACUTE UPPER RESPIRATORY INFECTION, UNSPE 07/04/2016 JUNO ABRAHAM MD Ot R05 COUGH 07/04/2016 JUNO ABRAHAM MD Ot R50 .9 FEVER, UNSPECIFIED 07/09/2016 JUNO ABRAHAM MD Ot J04 .0 ACUTE LARYNGITIS 07/09/2016 JUNO ABRAHAM MD Ot J06 .9 ACUTE UPPER RESPIRATORY INFECTION, UNSPE 07/09/2016 JUNO ABRAHAM MD Ot R05 COUGH 07/09/2016 JUNO ABRAHAM MD Ot R50 .9 FEVER, UNSPECIFIED 07/11/2016 JARAD HOLLINS, JUNO Guardado Ot J04 .0 ACUTE LARYNGITIS 07/11/2016 JUNO ABRAHAM MD Ot J06 .9 ACUTE UPPER RESPIRATORY INFECTION, UNSPE 07/11/2016 JARAD HOLLINS, JUNO Guardado Ot R05 COUGH 07/11/2016 JUNO ABRAHAM MD Ot R50 .9 FEVER, UNSPECIFIED 10/25/2016 NEPTALI HOLLINS, KAMI Milton Ot 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, LEFT 10/25/2016 NEPTALI HOLLINS, KAMI S Ot H57. 9 UNSPECIFIED DISORDER OF EYE AND ADNEXA 10/25/2016 NEPTAIL HOLLINS, KAMI Milton Ot 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, LEFT 10/25/2016 NEPTALI HOLLINS, KAMI Milton Ot H57. 9 UNSPECIFIED DISORDER OF EYE AND ADNEXA 12/21/2016 BASILIO CANALES Ot I 10 ESSENTIAL (PRIMARY) HYPERTENSION 12/21/2016 BASILIO CANALES Ot J02.9 ACUTE PHARYNGITIS, UNSPECIFIED 12/21/2016 BASILIO CANALES Ot J10.1 FLU DUE TO OTH IDENT INFLUENZA VIRUS W O 12/21/2016 BASILIO CANALES Ot Z79.899 OTHER DOCTOR ASSISTANT (CURRENT) DRUG THERAPY 12/21/2016 BASILIO CANALES Ot Z90.5 ACQUIRED ABSENCE OF KIDNEY 12/23/2016 BASILIO CANALES Ot I 10 ESSENTIAL (PRIMARY) HYPERTENSION 12/23/2016 BASILIO CANALES Ot J02.9 ACUTE PHARYNGITIS, UNSPECIFIED 12/23/2016 BASILIO CANALES Ot J10.1 FLU DUE TO OTH IDENT INFLUENZA VIRUS W O 12/23/2016 BASILIO CANALES Ot Z79.899 OTHER INTERMEDIATE (CURRENT) DRUG THERAPY 12/23/2016 BASILIO CANALES Ot Z90.5 ACQUIRED ABSENCE OF KIDNEY 12/27/2016 BASILIO CANALES Ot I 10 ESSENTIAL (PRIMARY) HYPERTENSION 12/27/2016 BASILIO CANALES Ot J02.9 ACUTE PHARYNGITIS, UNSPECIFIED 12/27/2016 BASILIO CANALES Ot J10.1 FLU DUE TO OTH IDENT INFLUENZA VIRUS W O 12/27/2016 BASILIO CANALES Ot Z79.899 OTHER DOCTOR ASSISTANT (CURRENT) DRUG THERAPY 12/27/2016 BASILIO CANALES Ot Z90.5 ACQUIRED ABSENCE OF KIDNEY 03/12/2017 BASILIO CANALES Ot I 10 ESSENTIAL (PRIMARY) HYPERTENSION 03/12/2017 BASILIO CANALES Ot J02.0 STREPTOCOCCAL PHARYNGITIS 03/12/2017 BASILIO CANALES Ot J02.9 ACUTE PHARYNGITIS, UNSPECIFIED 03/12/2017 BASILIO CANALES Ot Z90.5 ACQUIRED ABSENCE OF KIDNEY 03/13/2017 BASILIO CANALES Ot I 10 ESSENTIAL (PRIMARY) HYPERTENSION 03/13/2017 BASILIO CANALES Ot [...] NOT INTRACTABLE, WITHOUT 08/08/2017 BASILIO CANALES Ot I 10 ESSENTIAL (PRIMARY) HYPERTENSION 08/08/2017 BASILIO CANALES Ot [...] K Ot R10.84 GENERALIZED ABDOMINAL PAIN 2017 ARÚL DO, SHAQ K Ot Z90.5 ACQUIRED ABSENCE OF KIDNEY 2017 RAÚL DO, SHAQ K Ot Z90.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 10/18/2017 HAMMAD ROACH MD J Ot E78. 00 PURE HYPERCHOLESTEROLEMIA, UNSPECIFIED 10/18/2017 HAMMAD ROACH MD J Ot F32. 9 MAJOR DEPRESSIVE DISORDER, SINGLE EPISOD 10/18/2017 MAY ROACH MDUS J Ot F41. 9 ANXIETY DISORDER, UNSPECIFIED 10/18/2017 HAMMAD ROACH MD J Ot I10 ESSENTIAL (PRIMARY) HYPERTENSION 10/18/2017 MAY ROACH MDUS J Ot J02. 9 ACUTE PHARYNGITIS, UNSPECIFIED 10/18/2017 MAY ROACH MDUS J Ot Z90. 49 ACQUIRED ABSENCE OF OTHER SPECIFIED PART 10/18/2017 MAY ROACH MDUS J Ot Z90. 5 ACQUIRED ABSENCE OF KIDNEY 11/14/2017 HAMMAD ROACH MD J Ot E78. 00 PURE HYPERCHOLESTEROLEMIA, UNSPECIFIED 11/14/2017 HAMMAD ROACH MD J Ot F32. 9 MAJOR DEPRESSIVE DISORDER, SINGLE EPISOD 11/14/2017 HAMMAD ROACH MD J Ot F41. 9 ANXIETY DISORDER, UNSPECIFIED 11/14/2017 HAMMAD ROACH MD J Ot G40.909 EPILEPSY, UNSP, NOT INTRACTABLE, WITHOUT 11/14/2017 MAY ROACH MDUS J Ot G43.909 MIGRAINE, UNSP, NOT INTRACTABLE, WITHOUT 11/14/2017 DOC HOLLINS HAMMAD J Ot I10 ESSENTIAL (PRIMARY) HYPERTENSION 11/14/2017 HAMMAD ROACH MD J Ot N39. 0 URINARY TRACT INFECTION, SITE NOT SPECIF 11/14/2017 MAY ROACH MDUS J Ot Z90. 5 ACQUIRED ABSENCE OF KIDNEY 11/14/2017 HAMMAD ROACH MD Ot Z90. 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 11/17/2017 HAMMAD ROACH MD Ot E78. 00 PURE HYPERCHOLESTEROLEMIA, UNSPECIFIED 11/17/2017 HAMMAD ROACH MD Ot F32. 9 MAJOR DEPRESSIVE DISORDER, SINGLE EPISOD 11/17/2017 HAMMAD ROACH MD Ot F41. 9 ANXIETY DISORDER, UNSPECIFIED 11/17/2017 HAMMAD ROACH MD Ot G40.909 EPILEPSY, UNSP, NOT INTRACTABLE, WITHOUT 11/17/2017 HAMMAD ROACH MD J Ot G43.909 MIGRAINE, UNSP, NOT INTRACTABLE, WITHOUT 11/17/2017 HAMMAD ROACH MD Ot I10 ESSENTIAL (PRIMARY) HYPERTENSION 11/17/2017 HAMMAD ROACH MD Ot N39. 0 URINARY TRACT INFECTION, SITE NOT SPECIF 11/17/2017 HAMMAD ROACH MD Ot Z90. 5 ACQUIRED ABSENCE OF KIDNEY 11/17/2017 HAMMAD ROACH MD Ot Z90. 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 03/29/2018 RAÚL DO, SHAQ K Ot E78.00 PURE HYPERCHOLESTEROLEMIA, UNSPECIFIED 03/29/2018 RAÚL DO SHAQ K Ot F32.9 MAJOR DEPRESSIVE DISORDER, SINGLE EPISOD 03/29/2018 RAÚL DO SHAQ K Ot F41.9 ANXIETY DISORDER, UNSPECIFIED 03/29/2018 RAÚL DO SHAQ K Ot G40.909 EPILEPSY, UNSP, NOT INTRACTABLE, WITHOUT 03/29/2018 RAÚL DO SHAQ K Ot I10 ESSENTIAL (PRIMARY) HYPERTENSION 03/29/2018 RAÚL PRICE SHAQ K Ot R51 HEADACHE 03/29/2018 RAÚL PRICE SHAQ K Ot Z87.891 PERSONAL HISTORY OF NICOTINE DEPENDENCE 03/29/2018 RAÚL PRICE SHAQ K Ot Z88.0 ALLERGY STATUS TO PENICILLIN 03/29/2018 PADMINI OLSEN DOA K Ot Z88.1 ALLERGY STATUS TO OTHER ANTIBIOTIC AGENT 03/29/2018 SHAQ OLSEN DO Ot Z88.2 ALLERGY STATUS TO SULFONAMIDES STATUS 03/29/2018 PADMINI OLSEN DOA Geo Ot Z88.8 ALLERGY STATUS TO OTH DRUG/MEDS/BIOL SUB 03/29/2018 PADMINI OLSEN DOA Geo Ot Z90.5 ACQUIRED ABSENCE OF KIDNEY 03/29/2018 RAÚL DO, SHAQ K Ot Z90.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 03/31/2018 RAÚL DO, SHAQ K Ot E78.00 PURE HYPERCHOLESTEROLEMIA, UNSPECIFIED 03/31/2018 RAÚL DO, SHAQ K Ot F32.9 MAJOR [...] Z88.0 ALLERGY STATUS TO PENICILLIN 03/31/2018 RAÚL DO SHAQ K Ot Z88.1 ALLERGY STATUS TO OTHER ANTIBIOTIC AGENT 03/31/2018 RAÚL DO SHAQ K Ot Z88.2 ALLERGY [...] PERSONAL HISTORY OF NICOTINE DEPENDENCE 04/04/2018 RAÚL DO SHAQ K Ot Z88.0 ALLERGY STATUS TO PENICILLIN 04/04/2018 RAÚL DO, SHAQ K Ot Z88.1 ALLERGY STATUS TO OTHER ANTIBIOTIC AGENT 04/04/2018 SHAQ OLSEN DO Ot Z88.2 ALLERGY STATUS TO SULFONAMIDES STATUS 04/04/2018 SHAQ OLSEN DO Ot Z88.8 ALLERGY STATUS TO OTH DRUG/MEDS/BIOL SUB 04/04/2018 SHAQ OLSEN DO Ot Z90.5 ACQUIRED ABSENCE OF KIDNEY 04/04/2018 SHAQ OLSEN DO Ot Z90.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 07/28/2018 Ot G43.909 [place] GRAINE, UNSP, NOT INTRACTABLE, WITHOUT 07/28/2018 Ot G93.89 OTH ER SPECIFIED DISORDERS OF BRAIN 07/28/2018 Ot Z86.69 PER JUSTO HISTORY OF DIS OF THE NERVOUS S 07/28/2018 Ot Z87.898 PE RSONAL HISTORY OF OTHER SPECIFIED COND 07/31/2018 Ot G43.909 [place] GRAINE, UNSP, NOT INTRACTABLE, WITHOUT 07/31/2018 Ot G93.89 OTH ER SPECIFIED DISORDERS OF BRAIN 07/31/2018 Ot Z86.69 PER JUSTO HISTORY OF DIS OF THE NERVOUS S 07/31/2018 Ot Z87.898 PE RSONAL HISTORY OF OTHER SPECIFIED COND 10/09/2018 NELIDA, ERIKA SECURITY AND PRIVACY CONSULTANT Ot E78.00 PURE HYPERCHOLESTEROLEMIA, UNSPECIFIED 10/09/2018 NELIDA, ERIKA SECURITY AND PRIVACY CONSULTANT Ot F32.9 MAJOR DEPRESSIVE DISORDER, SINGLE EPISOD 10/09/2018 NELIDA, ERIKA SECURITY AND PRIVACY CONSULTANT Ot F41.9 ANXIETY DISORDER, UNSPECIFIED 10/09/2018 NELIDA, ERIKA SECURITY AND PRIVACY CONSULTANT Ot G40.909 EPILEPSY, UNSP, NOT INTRACTABLE, WITHOUT 10/09/2018 NELIDA, ERIKA SECURITY AND PRIVACY CONSULTANT Ot G43.909 MIGRAINE, UNSP, NOT INTRACTABLE, WITHOUT 10/09/2018 NELIDA, ERIKA SECURITY AND PRIVACY CONSULTANT Ot I10 ESSENTIAL (PRIMARY) HYPERTENSION 10/09/2018 NELIDA, ERIKA SECURITY AND PRIVACY CONSULTANT Ot N39.0 URINARY TRACT INFECTION, SITE NOT SPECIF 10/09/2018 NELIDA, ERIKA SECURITY AND PRIVACY CONSULTANT Ot R56.9 UNSPECIFIED CONVULSIONS 10/09/2018 NELIDA, ERIKA SECURITY AND PRIVACY CONSULTANT Ot Z88.0 ALLERGY STATUS TO PENICILLIN 10/09/2018 NELIDA, ERIKA SECURITY AND PRIVACY CONSULTANT Ot Z88.1 ALLERGY STATUS TO OTHER ANTIBIOTIC AGENT 10/09/2018 NELIDA, ERIKA SECURITY AND PRIVACY CONSULTANT Ot Z88.2 ALLERGY STATUS TO SULFONAMIDES STATUS 10/09/2018 NELIDA, ERIKA SECURITY AND PRIVACY CONSULTANT Ot Z88.8 ALLERGY STATUS TO OTH DRUG/MEDS/BIOL SUB 10/09/2018 NELIDA, ERIKA SECURITY AND PRIVACY CONSULTANT Ot Z90.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 10/14/2018 NELIDA, ERIKA SECURITY AND PRIVACY CONSULTANT Ot E78.00 PURE HYPERCHOLESTEROLEMIA, UNSPECIFIED 10/14/2018 NELIDA, ERIKA SECURITY AND PRIVACY CONSULTANT Ot F32.9 MAJOR DEPRESSIVE DISORDER, SINGLE EPISOD 10/14/2018 NELIDA, ERIKA SECURITY AND PRIVACY CONSULTANT Ot F41.9 ANXIETY DISORDER, UNSPECIFIED 10/14/2018 NELIDA, ERIKA SECURITY AND PRIVACY CONSULTANT Ot G40.909 EPILEPSY, UNSP, NOT INTRACTABLE, WITHOUT 10/14/2018 NELIDA, ERIKA SECURITY AND PRIVACY CONSULTANT Ot G43.909 MIGRAINE, UNSP, NOT INTRACTABLE, WITHOUT 10/14/2018 NELIDA, ERIKA SECURITY AND PRIVACY CONSULTANT Ot I10 ESSENTIAL (PRIMARY) HYPERTENSION 10/14/2018 NELIDA, ERIKA SECURITY AND PRIVACY CONSULTANT Ot N39.0 URINARY TRACT INFECTION, SITE NOT SPECIF 10/14/2018 NELIDA, ERIKA SECURITY AND PRIVACY CONSULTANT Ot R56.9 UNSPECIFIED CONVULSIONS 10/14/2018 NELIDA, ERIKA SECURITY AND PRIVACY CONSULTANT Ot Z88.0 ALLERGY STATUS TO PENICILLIN 10/14/2018 NELIDA, ERIKA SECURITY AND PRIVACY CONSULTANT Ot Z88.1 ALLERGY STATUS TO OTHER ANTIBIOTIC AGENT 10/14/2018 NELIDA, ERIKA SECURITY AND PRIVACY CONSULTANT Ot Z88.2 ALLERGY STATUS TO SULFONAMIDES STATUS 10/14/2018 NELIDA, ERIKA SECURITY AND PRIVACY CONSULTANT Ot Z88.8 ALLERGY STATUS TO OTH DRUG/MEDS/BIOL SUB 10/14/2018 NELIDA, ERIKA SECURITY AND PRIVACY CONSULTANT Ot Z90.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 10/16/2018 NELIDA, ERIKA SECURITY AND PRIVACY CONSULTANT Ot E78.00 PURE HYPERCHOLESTEROLEMIA, UNSPECIFIED 10/16/2018 NELIDA, ERIKA SECURITY AND PRIVACY CONSULTANT Ot F32.9 MAJOR DEPRESSIVE DISORDER, SINGLE EPISOD 10/16/2018 NELIDA, ERIKA SECURITY AND PRIVACY CONSULTANT Ot F41.9 ANXIETY DISORDER, UNSPECIFIED 10/16/2018 NELIDA, ERIKA SECURITY AND PRIVACY CONSULTANT Ot G40.909 EPILEPSY, UNSP, NOT INTRACTABLE, WITHOUT 10/16/2018 NELIDA, ERIKA SECURITY AND PRIVACY CONSULTANT Ot G43.909 MIGRAINE, UNSP, NOT INTRACTABLE, WITHOUT 10/16/2018 NELIDA, ERIKA SECURITY AND PRIVACY CONSULTANT Ot I10 ESSENTIAL (PRIMARY) HYPERTENSION 10/16/2018 NELIDA, ERIKA SECURITY AND PRIVACY CONSULTANT Ot N39.0 URINARY TRACT INFECTION, SITE NOT SPECIF 10/16/2018 ERIKA KRAUSEP Ot R56.9 UNSPECIFIED CONVULSIONS 10/16/2018 ERIKA KRAUSEP Ot Z88.0 ALLERGY STATUS TO PENICILLIN 10/16/2018 ERIKA KRAUSE DAYANNA Ot Z88.1 ALLERGY STATUS TO OTHER ANTIBIOTIC AGENT 10/16/2018 ERIKA KRAUSE DAYANNA Ot Z88.2 ALLERGY STATUS TO SULFONAMIDES STATUS 10/16/2018 ERIKA KRAUSEP Ot Z88.8 ALLERGY STATUS TO OT DRUG/MEDS/BIOL SUB 10/16/2018 ERIKA KRAUSEP Ot Z90.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 12/23/2018 Ot G43.909 [place] GRAINE, UNSP, NOT INTRACTABLE, WITHOUT 12/23/2018 Ot G93.89 OTH ER SPECIFIED DISORDERS OF BRAIN 12/23/2018 Ot Z86.69 PER JUSTO HISTORY OF DIS OF THE NERVOUS S 12/23/2018 Ot Z87.898 PE RSONAL HISTORY OF OTHER SPECIFIED COND 01/09/2019 CELIA HUGHES APRN Ot E78.00 PURE HYPERCHOLESTEROLEMIA, UNSPECIFIED 01/09/2019 CELIA HUGHES APRN Ot F32 .9 MAJOR DEPRESSIVE DISORDER, SINGLE EPISOD 01/09/2019 CELIA HUGHES APRN Ot F41 .9 ANXIETY DISORDER, UNSPECIFIED 01/09/2019 CELIA HUGHES APRN Ot G40.909 EPILEPSY, UNSP, NOT INTRACTABLE, WITHOUT 01/09/2019 CELIA HUGHES APRN Ot G43.909 MIGRAINE, UNSP, NOT INTRACTABLE, WITHOUT 01/09/2019 CELIA HUGHES APRN Ot I10 ESSENTIAL (PRIMARY) HYPERTENSION 01/09/2019 CELIA HUGHES APRN Ot M25.572 PAIN IN LEFT ANKLE AND JOINTS OF LEFT FO 01/09/2019 CELIA HUGHES APRN Ot S90.32XA CONTUSION OF LEFT FOOT, INITIAL ENCOUNTE 01/09/2019 CELIA HUGHES APRN Ot W22.03XA WALKED INTO FURNITURE, INITIAL ENCOUNTER 01/09/2019 CELIA HUGHES APRN Ot Z88 .0 ALLERGY STATUS TO PENICILLIN 01/09/2019 CELIA HUGHES APRN Ot Z88 .2 ALLERGY STATUS TO SULFONAMIDES STATUS 01/09/2019 CELIA HUGHES APRN Ot Z88 .8 ALLERGY STATUS TO OTH DRUG/MEDS/BIOL SUB 01/09/2019 CELIA HUGHES GIG TENDER Ot Z90 .5 ACQUIRED ABSENCE OF KIDNEY 01/09/2019 CELIA HUGHES GIG TENDER Ot Z90.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 03/24/2019 ARÚL DO, SHAQ K Ot E78.00 PURE HYPERCHOLESTEROLEMIA, UNSPECIFIED 03/24/2019 RAÚL DO SHAQ K Ot F32.9 MAJOR DEPRESSIVE DISORDER, SINGLE EPISOD 03/24/2019 RAÚL DO, SHAQ K Ot F41.9 ANXIETY DISORDER, UNSPECIFIED 03/24/2019 RAÚL DO, SHAQ K Ot G40.909 EPILEPSY, UNSP, NOT INTRACTABLE, WITHOUT 03/24/2019 RAÚL DO, SHAQ K Ot G43.909 MIGRAINE, UNSP, NOT INTRACTABLE, WITHOUT 03/24/2019 RAÚL DO SHAQ K Ot I10 ESSENTIAL (PRIMARY) HYPERTENSION 03/24/2019 RAÚL DO SHAQ K Ot N39.0 URINARY TRACT INFECTION, SITE NOT SPECIF 03/24/2019 RAÚL DO SHAQ K Ot R56.9 UNSPECIFIED CONVULSIONS 03/24/2019 RAÚL DO SHAQ K Ot Z87.891 PERSONAL HISTORY OF NICOTINE DEPENDENCE 03/24/2019 RAÚL DO SHAQ K Ot Z88.0 ALLERGY STATUS TO PENICILLIN 03/24/2019 RAÚL DO SHAQ K Ot Z88.2 ALLERGY STATUS TO SULFONAMIDES STATUS 03/24/2019 RAÚL DO SHAQ K Ot Z88.8 ALLERGY STATUS TO OTH DRUG/MEDS/BIOL SUB 03/24/2019 RAÚL DO SHAQ K Ot Z90.5 ACQUIRED ABSENCE OF KIDNEY 03/24/2019 RAÚL DO SHAQ K Ot Z90.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 03/29/2019 RAÚL DO SHAQ K Ot E78.00 PURE HYPERCHOLESTEROLEMIA, UNSPECIFIED 03/29/2019 RAÚL DO SHAQ K Ot F32.9 MAJOR DEPRESSIVE DISORDER, SINGLE EPISOD 03/29/2019 RAÚL DO SHAQ K Ot F41.9 ANXIETY DISORDER, UNSPECIFIED 03/29/2019 RAÚL DO, SHAQ K Ot G40.909 EPILEPSY, UNSP, NOT INTRACTABLE, WITHOUT 03/29/2019 RAÚL DO, SHAQ K Ot G43.909 MIGRAINE, UNSP, NOT INTRACTABLE, WITHOUT 03/29/2019 RAÚL DO, SHAQ K Ot I10 ESSENTIAL (PRIMARY) HYPERTENSION 03/29/2019 RAÚL DO, SHAQ K Ot N39.0 URINARY TRACT INFECTION, SITE NOT SPECIF 03/29/2019 RAÚL DO, SHAQ K Ot R56.9 UNSPECIFIED CONVULSIONS 03/29/2019 RAÚL DO, SHAQ K Ot Z87.891 PERSONAL HISTORY OF NICOTINE DEPENDENCE 03/29/2019 RAÚL DO, SHAQ K Ot Z88.0 ALLERGY STATUS TO PENICILLIN 03/29/2019 RAÚL DO, SHAQ K Ot Z88.2 ALLERGY STATUS TO SULFONAMIDES STATUS 03/29/2019 RAÚL DO, SHAQ K Ot Z88.8 ALLERGY STATUS TO OTH DRUG/MEDS/BIOL SUB 03/29/2019 RAÚL DO, SHAQ K Ot Z90.5 ACQUIRED ABSENCE OF KIDNEY 03/29/2019 RAÚL DO, SHAQ K Ot Z90.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 03/31/2019 RAÚL DO, SHAQ K Ot E78.00 PURE HYPERCHOLESTEROLEMIA, UNSPECIFIED 03/31/2019 RAÚL DO, SHAQ K Ot F32.9 MAJOR DEPRESSIVE DISORDER, SINGLE EPISOD 03/31/2019 RAÚL DO, SHAQ K Ot F41.9 ANXIETY DISORDER, UNSPECIFIED 03/31/2019 RAÚL DO, SHAQ K Ot G40.909 EPILEPSY, UNSP, NOT INTRACTABLE, WITHOUT 03/31/2019 RAÚL DO, SHAQ K Ot G43.909 MIGRAINE, UNSP, NOT INTRACTABLE, WITHOUT 03/31/2019 RAÚL DO, SHAQ K Ot I10 ESSENTIAL (PRIMARY) HYPERTENSION 03/31/2019 RAÚL DO, SHAQ K Ot N39.0 URINARY TRACT INFECTION, SITE NOT SPECIF 03/31/2019 RAÚL DO, SHAQ K Ot R56.9 UNSPECIFIED CONVULSIONS 03/31/2019 RAÚL DO, SHAQ K Ot Z87.891 PERSONAL HISTORY OF NICOTINE DEPENDENCE 03/31/2019 RAÚL DO, SHAQ K Ot Z88.0 ALLERGY STATUS TO PENICILLIN 03/31/2019 RAÚL DO, SHAQ K Ot Z88.2 ALLERGY STATUS TO SULFONAMIDES STATUS 03/31/2019 RAÚL DO, SHAQ K Ot Z88.8 ALLERGY STATUS TO OTH DRUG/MEDS/BIOL SUB 03/31/2019 RAÚL DO, SHAQ K Ot Z90.5 ACQUIRED ABSENCE OF KIDNEY 03/31/2019 RAÚL , SHAQ K Ot Z90.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 04/06/2019 CELIA HUGHES APRN Ot E78.00 PURE HYPERCHOLESTEROLEMIA, UNSPECIFIED 04/06/2019 CELIA HUGHES APRN Ot F32 .9 MAJOR DEPRESSIVE DISORDER, SINGLE EPISOD 04/06/2019 CELIA HUGHES APRN Ot F41 .9 ANXIETY DISORDER, UNSPECIFIED 04/06/2019 CELIA HUGHES APRN Ot G40.909 EPILEPSY, UNSP, NOT INTRACTABLE, WITHOUT 04/06/2019 CELIA HUGHES APRN Ot G43.909 MIGRAINE, UNSP, NOT INTRACTABLE, WITHOUT 04/06/2019 CELIA HUGHES APRN Ot I10 ESSENTIAL (PRIMARY) HYPERTENSION 04/06/2019 CELIA HUGHES APRN Ot R56 .9 UNSPECIFIED CONVULSIONS 04/06/2019 CELIA HUGHES APRN Ot Z87.448 PERSONAL HISTORY OF OTHER DISEASES OF UR 04/06/2019 CELIA HUGHES APRN Ot Z88 .0 ALLERGY STATUS TO PENICILLIN 04/06/2019 CELIA HUGHES APRN Ot Z88 .1 ALLERGY STATUS TO OTHER ANTIBIOTIC AGENT 04/06/2019 CELIA HUGHES APRN Ot Z88 .2 ALLERGY STATUS TO SULFONAMIDES STATUS 04/06/2019 CELIA HUGHES APRN Ot Z88 .8 ALLERGY STATUS TO OTH DRUG/MEDS/BIOL SUB 04/06/2019 CELIA HUGHES APRN Ot Z90 .6 ACQUIRED ABSENCE OF OTHER PARTS OF URINA 04/06/2019 CELIA HUGHES APRN Ot Z90.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 04/06/2019 CELIA HUGHES APRN Ot Z98.890 OTHER SPECIFIED POSTPROCEDURAL STATES 04/08/2019 CELIA HUGHES APRN Ot E78.00 PURE HYPERCHOLESTEROLEMIA, UNSPECIFIED 04/08/2019 CELIA HUGHES APRN Ot F32 .9 MAJOR DEPRESSIVE DISORDER, SINGLE EPISOD 04/08/2019 CELIA HUGHES APRN Ot F41 .9 ANXIETY DISORDER, UNSPECIFIED 04/08/2019 CELIA HUGHES APRN Ot G40.909 EPILEPSY, UNSP, NOT INTRACTABLE, WITHOUT 04/08/2019 CELIA HUGHES APRN Ot G43.909 MIGRAINE, UNSP, NOT INTRACTABLE, WITHOUT 04/08/2019 CELIA HUGHES APRN Ot I10 ESSENTIAL (PRIMARY) HYPERTENSION 04/08/2019 CELIA HUGHES APRN Ot R56 .9 UNSPECIFIED CONVULSIONS 04/08/2019 CELIA HUGHES APRN Ot Z87.448 PERSONAL HISTORY OF OTHER DISEASES OF UR 04/08/2019 CELIA HUGHES APRN Ot Z88 .0 ALLERGY STATUS TO PENICILLIN 04/08/2019 CELIA HUGHES APRN Ot Z88 .1 ALLERGY STATUS TO OTHER ANTIBIOTIC AGENT 04/08/2019 CELIA HUGHES APRN Ot Z88 .2 ALLERGY STATUS TO SULFONAMIDES STATUS 04/08/2019 CELIA HUGHES APRN Ot Z88 .8 ALLERGY STATUS TO OTH DRUG/MEDS/BIOL SUB 04/08/2019 CELIA HUGHES APRN Ot Z90 .6 ACQUIRED ABSENCE OF OTHER PARTS OF URINA 04/08/2019 CELIA HUGHES APRN Ot Z90.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 04/08/2019 CELIA HUGHES APRN Ot Z98.890 OTHER SPECIFIED POSTPROCEDURAL STATES 04/12/2019 CELIA HUGHES APRN Ot E78.00 PURE HYPERCHOLESTEROLEMIA, UNSPECIFIED 04/12/2019 CELIA HUGHES APRN Ot F32 .9 MAJOR DEPRESSIVE DISORDER, SINGLE EPISOD 04/12/2019 CELIA HUGHES APRN Ot F41 .9 ANXIETY DISORDER, UNSPECIFIED 04/12/2019 CELIA HUGHES APRN Ot G40.909 EPILEPSY, UNSP, NOT INTRACTABLE, WITHOUT 04/12/2019 CELIA HUGHES APRN Ot G43.909 MIGRAINE, UNSP, NOT INTRACTABLE, WITHOUT 04/12/2019 CELIA HUGHES APRN Ot I10 ESSENTIAL (PRIMARY) HYPERTENSION 04/12/2019 CELIA HUGHES APRN Ot R56 .9 UNSPECIFIED CONVULSIONS 04/12/2019 CELIA HUGHES APRN Ot Z87.448 PERSONAL HISTORY OF OTHER DISEASES OF UR 04/12/2019 CELIA HUGHES APRN Ot Z88 .0 ALLERGY STATUS TO PENICILLIN 04/12/2019 CELIA HUGHES APRN Ot Z88 .1 ALLERGY STATUS TO OTHER ANTIBIOTIC AGENT 04/12/2019 CELIA HUGHES APRN Ot Z88 .2 ALLERGY STATUS TO SULFONAMIDES STATUS 04/12/2019 CELIA HUGHES APRN Ot Z88 .8 ALLERGY STATUS TO OTH DRUG/MEDS/BIOL SUB 04/12/2019 CELIA HUGHES GIG TENDER Ot Z90 .6 ACQUIRED ABSENCE OF OTHER PARTS OF URINA 04/12/2019 CELIA HUGHES GIG TENDER Ot Z90.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 04/12/2019 CELIA HUGHES GIG TENDER Ot Z98.890 OTHER SPECIFIED POSTPROCEDURAL STATES 04/28/2019 JUAN LUIS HOLLINS, STEF Ortega Ot E78.00 PURE HYPERCHOLESTEROLEMIA, UNSPECIFIED 04/28/2019 STEF MCKNIGHT MD Ot F32.9 MAJOR DEPRESSIVE DISORDER, SINGLE EPISOD 04/28/2019 STEF MCKNIGHT MD Ot F41.9 ANXIETY DISORDER, UNSPECIFIED 04/28/2019 STEF MCKNIGHT MD Ot G40.909 EPILEPSY, UNSP, NOT INTRACTABLE, WITHOUT 04/28/2019 STEF MCKNIGHT MD Ot G43.909 MIGRAINE, UNSP, NOT INTRACTABLE, WITHOUT 04/28/2019 STEF MCKNIGHT MD Ot I10 ESSENTIAL (PRIMARY) HYPERTENSION 04/28/2019 STEF MCKNIGHT MD Ot R10.12 LEFT UPPER QUADRANT PAIN 04/28/2019 STEF MCKNIGHT MD Ot S30.1XXA CONTUSION OF ABDOMINAL WALL, INITIAL ENC 04/28/2019 STEF MCKNIGHT MD Ot W22.8XXA STRIKING AGAINST OR STRUCK BY OTHER OBJE 04/28/2019 STEF MCKNIGHT MD Ot Z88.0 ALLERGY STATUS TO PENICILLIN 04/28/2019 STEF MCKNIGHT MD Ot Z88.1 ALLERGY STATUS TO OTHER ANTIBIOTIC AGENT 04/28/2019 STEF MCKNIGHT MD Ot Z88.2 ALLERGY STATUS TO SULFONAMIDES STATUS 04/28/2019 STEF MCKNIGHT MD Ot Z88.8 ALLERGY STATUS TO OTH DRUG/MEDS/BIOL SUB 04/28/2019 STEF MCKNIGHT MD Ot Z90.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 05/03/2019 STEF MCKNIGHT MD Ot E78.00 PURE HYPERCHOLESTEROLEMIA, UNSPECIFIED 05/03/2019 JUAN LUIS HOLLINS, STEF Ortega Ot F32.9 MAJOR DEPRESSIVE DISORDER, SINGLE EPISOD 05/03/2019 JUAN LUIS HOLLINS, STEF Ortega Ot F41.9 ANXIETY DISORDER, UNSPECIFIED 05/03/2019 STEF MCKNIGHT MD Ot G40.909 EPILEPSY, UNSP, NOT INTRACTABLE, WITHOUT 05/03/2019 STEF MCKNIGHT MD Ot G43.909 MIGRAINE, UNSP, NOT INTRACTABLE, WITHOUT 05/03/2019 STEF MCKNIGHT MD Ot I10 ESSENTIAL (PRIMARY) HYPERTENSION 05/03/2019 JUAN LUIS HOLLINS, STEF Ortega Ot R10.12 LEFT UPPER QUADRANT PAIN 05/03/2019 STEF MCKNIGHT MD Ot S30.1XXA CONTUSION OF ABDOMINAL WALL, INITIAL ENC 05/03/2019 STEF MCKNIGHT MD Ot W22.8XXA STRIKING AGAINST OR STRUCK BY OTHER OBJE 05/03/2019 JUAN LUIS HOLLINS, STEF Ortega Ot Z88.0 ALLERGY STATUS TO PENICILLIN 05/03/2019 STEF MCKNIGHT MD Ot Z88.1 ALLERGY STATUS TO OTHER ANTIBIOTIC AGENT 05/03/2019 JUAN LUIS HOLLINS, STEF Ortega Ot Z88.2 ALLERGY STATUS TO SULFONAMIDES STATUS 05/03/2019 STEF MCKNIGHT MD Ot Z88.8 ALLERGY STATUS TO OTH DRUG/MEDS/BIOL SUB 05/03/2019 STEF MCKNIGHT MD Ot Z90.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 05/26/2019 ANDREW SUAREZ Ot E78.00 PURE HYPERCHOLESTEROLEMIA, UNSPECIFIED 05/26/2019 ANDREW SUAREZ Ot F32.9 MAJOR DEPRESSIVE DISORDER, SINGLE EPISOD 05/26/2019 ANDREW SUAREZ Ot F41.9 ANXIETY DISORDER, UNSPECIFIED 05/26/2019 ANDREW SUAREZ Ot G40.909 EPILEPSY, UNSP, NOT INTRACTABLE, WITHOUT 05/26/2019 ANDREW SUAREZ Ot G43.909 MIGRAINE, UNSP, NOT INTRACTABLE, WITHOUT 05/26/2019 ANDREW SUAREZ Ot H66.92 OTITIS MEDIA, UNSPECIFIED, LEFT EAR 05/26/2019 ANDREW SUAREZ Ot H92.02 OTALGIA, LEFT EAR 05/26/2019 ANDREW SUAREZ Ot I10 ESSENTIAL (PRIMARY) HYPERTENSION 05/26/2019 ANDREW SUAREZ Ot N39.0 URINARY TRACT INFECTION, SITE NOT SPECIF 05/26/2019 ANDREW SUAREZ Ot R10.9 UNSPECIFIED ABDOMINAL PAIN 05/26/2019 ANDREW SUAREZ Ot W22.8XXA STRIKING AGAINST OR STRUCK BY OTHER OBJE 05/26/2019 ANDREW SUAREZ Ot Z88.0 ALLERGY STATUS TO PENICILLIN 05/26/2019 ANDREW SUAREZ Ot Z88.2 ALLERGY STATUS TO SULFONAMIDES STATUS 05/26/2019 ANDREW SUAREZ Ot Z88.8 ALLERGY STATUS TO OTH DRUG/MEDS/BIOL SUB 05/26/2019 ANDREW SUAREZ Ot Z90.5 ACQUIRED ABSENCE OF KIDNEY 05/26/2019 ANDREW SUAREZ Ot Z90.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 06/05/2019 RAÚL PRICE SHAQ K Ot E78.00 PURE HYPERCHOLESTEROLEMIA, UNSPECIFIED 06/05/2019 RAÚL DO SHAQ K Ot F32.9 MAJOR DEPRESSIVE DISORDER, SINGLE EPISOD 06/05/2019 RAÚL PRICE SHAQ K Ot F41.9 ANXIETY DISORDER, UNSPECIFIED 06/05/2019 RAÚL DO SHAQ K Ot G40.909 EPILEPSY, UNSP, NOT INTRACTABLE, WITHOUT 06/05/2019 RAÚL DO SHAQ K Ot G43.909 MIGRAINE, UNSP, NOT INTRACTABLE, WITHOUT 06/05/2019 RAÚL DO SHAQ K Ot I10 ESSENTIAL (PRIMARY) HYPERTENSION 06/05/2019 RAÚL DO SHAQ K Ot N39.0 URINARY TRACT INFECTION, SITE NOT SPECIF 06/05/2019 RAÚL PRICE SHAQ K Ot R56.9 UNSPECIFIED CONVULSIONS 06/05/2019 RAÚL DO SHAQ K Ot Z86.012 PERSONAL HISTORY OF BENIGN CARCINOID JETT 06/05/2019 RAÚL PRICE SHAQ K Ot Z86.018 PERSONAL HISTORY OF OTHER BENIGN NEOPLAS 06/05/2019 RAÚL PRICE SHAQ K Ot Z88.0 ALLERGY STATUS TO PENICILLIN 06/05/2019 RAÚL PRICE SHAQ K Ot Z88.1 ALLERGY STATUS TO OTHER ANTIBIOTIC AGENT 06/05/2019 PADMINI OLSEN DOA K Ot Z88.2 ALLERGY STATUS TO SULFONAMIDES STATUS 06/05/2019 RAÚL SHAQ Guardado Ot Z88.8 ALLERGY STATUS TO OTH DRUG/MEDS/BIOL SUB 06/05/2019 RAÚL PADMINI PRICEA Geo Ot Z90.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 06/08/2019 RALÚ SHAQ PRICE Ot E78.00 PURE HYPERCHOLESTEROLEMIA, UNSPECIFIED 06/08/2019 RAÚL PADMINI PRICEA K Ot F32.9 MAJOR DEPRESSIVE DISORDER, SINGLE EPISOD 06/08/2019 RAÚL PADMINI PRICEA Geo Ot F41.9 ANXIETY DISORDER, UNSPECIFIED 06/08/2019 [place] PADMINI PRICEA K Ot G40.909 EPILEPSY, UNSP, NOT INTRACTABLE, WITHOUT 06/08/2019 RAÚL SHAQ K Ot G43.909 MIGRAINE, UNSP, NOT INTRACTABLE, WITHOUT 06/08/2019 RAÚL SHAQ K Ot I10 ESSENTIAL (PRIMARY) HYPERTENSION 06/08/2019 [place] SHAQ Guardado Ot N39.0 URINARY TRACT INFECTION, SITE NOT SPECIF 06/08/2019 RAÚL SHAQ Guardado Ot R56.9 UNSPECIFIED CONVULSIONS 06/08/2019 RAÚL SHAQ Guardado Ot Z86.012 PERSONAL HISTORY OF BENIGN CARCINOID JETT 06/08/2019 RAÚL SHAQ Guardado Ot Z86.018 PERSONAL HISTORY OF OTHER BENIGN NEOPLAS 06/08/2019 RAÚL SHAQ Guardado Ot Z88.0 ALLERGY STATUS TO PENICILLIN 06/08/2019 RAÚL SHAQ Guardado Ot Z88.1 ALLERGY STATUS TO OTHER ANTIBIOTIC AGENT 06/08/2019 RAÚL SHAQ Guardado Ot Z88.2 ALLERGY STATUS TO SULFONAMIDES STATUS 06/08/2019 RAÚL SHAQ Guardado Ot Z88.8 ALLERGY STATUS TO OTH DRUG/MEDS/BIOL SUB 06/08/2019 RAÚL PADMINI PRICEA Geo Ot Z90.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 06/24/2019 CELIA HUGHES APRN Ot E78.00 PURE HYPERCHOLESTEROLEMIA, UNSPECIFIED 06/24/2019 CELIA HUGHES APRN Ot F32 .9 MAJOR DEPRESSIVE DISORDER, SINGLE EPISOD 06/24/2019 CELIA HUGHES APRN Ot F41 .9 ANXIETY DISORDER, UNSPECIFIED 06/24/2019 CELIA HUGHES APRN Ot G40.909 EPILEPSY, UNSP, NOT INTRACTABLE, WITHOUT 06/24/2019 CELIA HUGHES APRN Ot G43.909 MIGRAINE, UNSP, NOT INTRACTABLE, WITHOUT 06/24/2019 CELIA HUGHES APRN Ot I10 ESSENTIAL (PRIMARY) HYPERTENSION 06/24/2019 CELIA HUGHES APRN Ot J02 .8 ACUTE PHARYNGITIS DUE TO OTHER SPECIFIED 06/24/2019 CELIA HUGHES APRN Ot R07 .0 PAIN IN THROAT 06/24/2019 CELIA HUGHES APRN Ot Z86.010 PERSONAL HISTORY OF COLONIC POLYPS 06/24/2019 CELIA HUGHES APRN Ot Z87.891 PERSONAL HISTORY OF NICOTINE DEPENDENCE 06/24/2019 CELIA HUGHES APRN Ot Z88 .0 ALLERGY STATUS TO PENICILLIN 06/24/2019 CELIA HUGHES APRN Ot Z88 .1 ALLERGY STATUS TO OTHER ANTIBIOTIC AGENT 06/24/2019 CELIA HUGHES APRN Ot Z88 .2 ALLERGY STATUS TO SULFONAMIDES STATUS 06/24/2019 CELIA HUGHES APRN Ot Z88 .8 ALLERGY STATUS TO OTH DRUG/MEDS/BIOL SUB 06/24/2019 CELIA HUGHES APRN Ot Z90.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 06/28/2019 ANDREW SUAREZ Ot E78.00 PURE HYPERCHOLESTEROLEMIA, UNSPECIFIED 06/28/2019 ANDREW SUAREZ Ot F32.9 MAJOR DEPRESSIVE DISORDER, SINGLE EPISOD 06/28/2019 ANDREW SUAREZ Ot F41.9 ANXIETY DISORDER, UNSPECIFIED 06/28/2019 ANDREW SUAREZ Ot G40.909 EPILEPSY, UNSP, NOT INTRACTABLE, WITHOUT 06/28/2019 ANDREW SUAREZ Ot G43.909 MIGRAINE, UNSP, NOT INTRACTABLE, WITHOUT 06/28/2019 SHASHANK SUAREZIS Ot I10 ESSENTIAL (PRIMARY) HYPERTENSION 06/28/2019 ANDREW SUAREZ Ot J40 BRONCHITIS, NOT SPECIFIED ACUTE OR CH 06/28/2019 ANDREW SUAREZ Ot R04.2 HEMOPTYSIS 06/28/2019 ANDREW SUAREZ Ot Z86.012 PERSONAL HISTORY OF BENIGN CARCINOID JETT 06/28/2019 ANDREW SUAREZ Ot Z88.0 ALLERGY STATUS TO PENICILLIN 06/28/2019 ANDREW SUAREZ Ot Z88.1 ALLERGY STATUS TO OTHER ANTIBIOTIC AGENT 06/28/2019 BERNOT, ANDREW Ot Z88.2 ALLERGY STATUS TO SULFONAMIDES STATUS 06/28/2019 SHASHANK SUAREZIS Ot Z88.8 ALLERGY STATUS TO OTH DRUG/MEDS/BIOL SUB 06/28/2019 SHASHANK SUAREZIS Ot Z90.49 ACQUIRED ABSENCE OF OTHER SPECIFIED PART 06/28/2019 SHASHANK SUAREZIS Ot Z90.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 07/02/2019 SHASHANK SUAREZIS Ot E78.00 PURE HYPERCHOLESTEROLEMIA, UNSPECIFIED 07/02/2019 SHASHANK SUAREZIS Ot F32.9 MAJOR DEPRESSIVE DISORDER, SINGLE EPISOD 07/02/2019 SHASHANK SUAREZIS Ot F41.9 ANXIETY DISORDER, UNSPECIFIED 07/02/2019 SHASHANK SUAREZIS Ot G40.909 EPILEPSY, UNSP, NOT INTRACTABLE, WITHOUT 07/02/2019 SHASHANK SUAREZIS Ot G43.909 MIGRAINE, UNSP, NOT INTRACTABLE, WITHOUT 07/02/2019 SHASHANK SUAREZIS Ot I10 ESSENTIAL (PRIMARY) HYPERTENSION 07/02/2019 ANDREW SUAREZ Ot J40 BRONCHITIS, NOT SPECIFIED ACUTE OR CH 07/02/2019 SHASHANK SUAREZIS Ot R04.2 HEMOPTYSIS 07/02/2019 SHASHANK SUAREZIS Ot Z86.012 PERSONAL HISTORY OF BENIGN CARCINOID JETT 07/02/2019 SHASHANK SUAREZIS Ot Z88.0 ALLERGY STATUS TO PENICILLIN 07/02/2019 SHASHANK SUAREZIS Ot Z88.1 ALLERGY STATUS TO OTHER ANTIBIOTIC AGENT 07/02/2019 SHASHANK SUAREZIS Ot Z88.2 ALLERGY STATUS TO SULFONAMIDES STATUS 07/02/2019 SHASHANK SUAREZIS Ot Z88.8 ALLERGY STATUS TO OTH DRUG/MEDS/BIOL SUB 07/02/2019 SHASHANK SUAREZIS Ot Z90.49 ACQUIRED ABSENCE OF OTHER SPECIFIED PART 07/02/2019 SHASHANK SUAREZIS Ot Z90.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 07/03/2019 CELIA HUGHES APRN Ot E78.00 PURE HYPERCHOLESTEROLEMIA, UNSPECIFIED 07/03/2019 CELIA HUGHES APRN Ot F32 .9 MAJOR DEPRESSIVE DISORDER, SINGLE EPISOD 07/03/2019 CELIA HUGHES APRN Ot F41 .9 ANXIETY DISORDER, UNSPECIFIED 07/03/2019 CELIA HUGHES APRN Ot G40.909 EPILEPSY, UNSP, NOT INTRACTABLE, WITHOUT 07/03/2019 CELIA HUGHES APRN Ot I10 ESSENTIAL (PRIMARY) HYPERTENSION 07/03/2019 CELIA HUGHES APRN Ot R51 HEADACHE 07/03/2019 CELIA HUGHES APRN Ot Z86.69 PERSONAL HISTORY OF DIS OF THE NERVOUS S 07/03/2019 CELIA HUGHES APRN Ot Z88 .0 ALLERGY STATUS TO PENICILLIN 07/03/2019 CELIA HUGHES APRN Ot Z88 .2 ALLERGY STATUS TO SULFONAMIDES STATUS 07/03/2019 CELIA HUGHES APRN Ot Z88 .8 ALLERGY STATUS TO OTH DRUG/MEDS/BIOL SUB 07/03/2019 CELIA HUGHES APRN Ot Z90 .5 ACQUIRED ABSENCE OF KIDNEY 07/03/2019 CELIA HUGHES APRN Ot Z90.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 07/08/2019 CELIA HUGHES APRN Ot E78.00 PURE HYPERCHOLESTEROLEMIA, UNSPECIFIED 07/08/2019 CELIA HUGHES APRN Ot F32 .9 MAJOR DEPRESSIVE DISORDER, SINGLE EPISOD 07/08/2019 CELIA HUGHES APRN Ot F41 .9 ANXIETY DISORDER, UNSPECIFIED 07/08/2019 CELIA HUGHES APRN Ot G40.909 EPILEPSY, UNSP, NOT INTRACTABLE, WITHOUT 07/08/2019 CELIA HUGHES APRN Ot I10 ESSENTIAL (PRIMARY) HYPERTENSION 07/08/2019 CELIA HUGHES APRN Ot R51 HEADACHE 07/08/2019 CELIA HUGHES APRN Ot Z86.69 PERSONAL HISTORY OF DIS OF THE NERVOUS S 07/08/2019 CELIA HUGHES APRN Ot Z88 .0 ALLERGY STATUS TO PENICILLIN 07/08/2019 CELIA HUGHES APRN Ot Z88 .2 ALLERGY STATUS TO SULFONAMIDES STATUS 07/08/2019 CELIA HUGHES APRN Ot Z88 .8 ALLERGY STATUS TO OTH DRUG/MEDS/BIOL SUB 07/08/2019 CELIA HUGHES APRN Ot Z90 .5 ACQUIRED ABSENCE OF KIDNEY 07/08/2019 CELIA HUGHES APRN Ot Z90.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 07/08/2019 CELIA HUGHES APRN Ot Z96.22 MYRINGOTOMY TUBE(S) STATUS 07/12/2019 CELIA HUGHES APRN Ot E78.00 PURE HYPERCHOLESTEROLEMIA, UNSPECIFIED 07/12/2019 CELIA HUGHES APRN Ot F32 .9 MAJOR DEPRESSIVE DISORDER, SINGLE EPISOD 07/12/2019 ECLIA HUGHES APRN Ot F41 .9 ANXIETY DISORDER, UNSPECIFIED 07/12/2019 CELIA HUGHES APRN Ot G40.909 EPILEPSY, UNSP, NOT INTRACTABLE, WITHOUT 07/12/2019 CELIA HUGHES APRN Ot I10 ESSENTIAL (PRIMARY) HYPERTENSION 07/12/2019 CELIA HUGHES APRN Ot R51 HEADACHE 07/12/2019 CELIA HUGHES APRN Ot Z86.69 PERSONAL HISTORY OF DIS OF THE NERVOUS S 07/12/2019 CELIA HUGHES APRN Ot Z88 .0 ALLERGY STATUS TO PENICILLIN 07/12/2019 CELIA HUGHES APRN Ot Z88 .2 ALLERGY STATUS TO SULFONAMIDES STATUS 07/12/2019 CELIA HUGHES APRN Ot Z88 .8 ALLERGY STATUS TO OTH DRUG/MEDS/BIOL SUB 07/12/2019 CELIA HUGHES APRN Ot Z90 .5 ACQUIRED ABSENCE OF KIDNEY 07/12/2019 CELIA HUGHES APRN Ot Z90.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 07/12/2019 CELIA HUGHES APRN Ot Z96.22 MYRINGOTOMY TUBE(S) STATUS 07/15/2019 CELIA HUGHES APRN Ot E78.00 PURE HYPERCHOLESTEROLEMIA, UNSPECIFIED 07/15/2019 CELIA HUGHES APRN Ot F32 .9 MAJOR DEPRESSIVE DISORDER, SINGLE EPISOD 07/15/2019 CELIA HUGHES APRN Ot F41 .9 ANXIETY DISORDER, UNSPECIFIED 07/15/2019 CELIA HUGHES APRN Ot G40.909 EPILEPSY, UNSP, NOT INTRACTABLE, WITHOUT 07/15/2019 CELIA HUGHES APRN Ot G43.909 MIGRAINE, UNSP, NOT INTRACTABLE, WITHOUT 07/15/2019 CELIA HUGHES APRN Ot I10 ESSENTIAL (PRIMARY) HYPERTENSION 07/15/2019 CELIA HUGHES APRN Ot R56 .9 UNSPECIFIED CONVULSIONS 07/15/2019 CELIA HUGHES APRN Ot S80.211A ABRASION, RIGHT KNEE, INITIAL ENCOUNTER 07/15/2019 CELIA HUGHES APRN Ot W19.XXXA UNSPECIFIED FALL, INITIAL ENCOUNTER 07/15/2019 CELIA HUGHES APRN Ot Z88 .0 ALLERGY STATUS TO PENICILLIN 07/15/2019 CELIA HUGHES APRN Ot Z88 .2 ALLERGY STATUS TO SULFONAMIDES STATUS 07/15/2019 CELIA HUGHES APRN Ot Z88 .8 ALLERGY STATUS TO OTH DRUG/MEDS/BIOL SUB 07/15/2019 CELIA HUGHES APRN Ot Z90 .5 ACQUIRED ABSENCE OF KIDNEY 07/15/2019 CELIA HUGHES APRN Ot Z90.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 07/19/2019 HAMMAD ROACH MD Ot E78. 00 PURE HYPERCHOLESTEROLEMIA, UNSPECIFIED 07/19/2019 HAMMAD ROACH MD Ot F17.210 NICOTINE DEPENDENCE, CIGARETTES, UNCOMPL 07/19/2019 HAMMAD ROACH MD Ot F32. 9 MAJOR DEPRESSIVE DISORDER, SINGLE EPISOD 07/19/2019 HAMMAD ROACH MD Ot F41. 9 ANXIETY DISORDER, UNSPECIFIED 07/19/2019 HAMMAD ROACH MD Ot G40.909 EPILEPSY, UNSP, NOT INTRACTABLE, WITHOUT 07/19/2019 HAMMAD ROACH MD Ot G43.909 MIGRAINE, UNSP, NOT INTRACTABLE, WITHOUT 07/19/2019 HAMMAD ROACH MD Ot I10 ESSENTIAL (PRIMARY) HYPERTENSION 07/19/2019 HAMMAD ROACH MD Ot M25.561 PAIN IN RIGHT KNEE 07/19/2019 HAMMAD ROACH MD Ot S83.91XA SPRAIN OF UNSPECIFIED SITE OF RIGHT KNEE 07/19/2019 HAMMAD ROACH MD Ot W19.XXXA UNSPECIFIED FALL, INITIAL ENCOUNTER 07/19/2019 HAMMAD ROACH MD Ot Y92.[address] OF OCCURRENCE OF T 07/19/2019 HAMMAD ROACH MD Ot Z88. 0 ALLERGY STATUS TO PENICILLIN 07/19/2019 HAMMAD ROACH MD Ot Z88. 2 ALLERGY STATUS TO SULFONAMIDES STATUS 07/19/2019 HAMMAD ROACH MD Ot Z88. 8 ALLERGY STATUS TO OTH DRUG/MEDS/BIOL SUB 07/19/2019 HAMMAD ROACH MD Ot Z90. 5 ACQUIRED ABSENCE OF KIDNEY 07/19/2019 HAMMAD ROACH MD Ot Z90. 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 07/19/2019 CELIA HUGHES APRN Ot E78.00 PURE HYPERCHOLESTEROLEMIA, UNSPECIFIED 07/19/2019 CELIA HUGHES APRN Ot F32 .9 MAJOR DEPRESSIVE DISORDER, SINGLE EPISOD 07/19/2019 CELIA HUGHES APRN Ot F41 .9 ANXIETY DISORDER, UNSPECIFIED 07/19/2019 CELIA HUGHES APRN Ot G40.909 EPILEPSY, UNSP, NOT INTRACTABLE, WITHOUT 07/19/2019 CELIA HUGHES APRN Ot G43.909 MIGRAINE, UNSP, NOT INTRACTABLE, WITHOUT 07/19/2019 CELIA HUGHES APRN Ot I10 ESSENTIAL (PRIMARY) HYPERTENSION 07/19/2019 CELIA HUGHES APRN Ot R56 .9 UNSPECIFIED CONVULSIONS 07/19/2019 CELIA HUGHES APRN Ot S80.211A ABRASION, RIGHT KNEE, INITIAL ENCOUNTER 07/19/2019 CELIA HUGHES APRN Ot W19.XXXA UNSPECIFIED FALL, INITIAL ENCOUNTER 07/19/2019 CELIA HUGHES APRN Ot Z88 .0 ALLERGY STATUS TO PENICILLIN 07/19/2019 CELIA HUGHES APRN Ot Z88 .2 ALLERGY STATUS TO SULFONAMIDES STATUS 07/19/2019 CELIA HUGHES APRN Ot Z88 .8 ALLERGY STATUS TO OT DRUG/MEDS/BIOL SUB 07/19/2019 CELIA HUGHES APRN Ot Z90 .5 ACQUIRED ABSENCE OF KIDNEY 07/19/2019 CELIA HUGHES APRN Ot Z90.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 07/20/2019 JUAN LUIS HOLLINS, STEF T Ot E78.00 PURE HYPERCHOLESTEROLEMIA, UNSPECIFIED 07/20/2019 STEF MCKNIGHT MD T Ot F32.9 MAJOR DEPRESSIVE DISORDER, SINGLE EPISOD 07/20/2019 STEF MCKNIGHT MD Ot F41.9 ANXIETY DISORDER, UNSPECIFIED 07/20/2019 STEF MCKNIHGT MD Ot G40.909 EPILEPSY, UNSP, NOT INTRACTABLE, WITHOUT 07/20/2019 STEF MCKNIGHT MD Ot G43.909 MIGRAINE, UNSP, NOT INTRACTABLE, WITHOUT 07/20/2019 STEF MCKNIGHT MD T Ot I10 ESSENTIAL (PRIMARY) HYPERTENSION 07/20/2019 STEF MCKNIGHT MD Ot L29.9 PRURITUS, UNSPECIFIED 07/20/2019 STEF MCKNIGHT MD Ot Z88.0 ALLERGY STATUS TO PENICILLIN 07/20/2019 STEF MCKNIGHT MD Ot Z88.2 ALLERGY STATUS TO SULFONAMIDES STATUS 07/20/2019 STEF MCKNIGHT MD, Ot Z88.8 ALLERGY STATUS TO OTH DRUG/MEDS/BIOL SUB 07/20/2019 STEF MCKNIGHT MD Ot Z90.5 ACQUIRED ABSENCE OF KIDNEY 07/20/2019 STEF MCKNIGHT MD Ot Z90.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 07/21/2019 HAMMAD ROACH MD Ot E78. 00 PURE HYPERCHOLESTEROLEMIA, UNSPECIFIED 07/21/2019 HAMMAD ROACH MD Ot F17.210 NICOTINE DEPENDENCE, CIGARETTES, UNCOMPL 07/21/2019 HAMMAD ROACH MD Ot F32. 9 MAJOR DEPRESSIVE DISORDER, SINGLE EPISOD 07/21/2019 HAMMAD ROACH MD Ot F41. 9 ANXIETY DISORDER, UNSPECIFIED 07/21/2019 HAMMAD ROACH MD Ot G40.909 EPILEPSY, UNSP, NOT INTRACTABLE, WITHOUT 07/21/2019 HAMMAD ROACH MD Ot G43.909 MIGRAINE, UNSP, NOT INTRACTABLE, WITHOUT 07/21/2019 HAMMAD ROACH MD Ot I10 ESSENTIAL (PRIMARY) HYPERTENSION 07/21/2019 HAMMAD ROACH MD Ot M25.561 PAIN IN RIGHT KNEE 07/21/2019 HAMMAD ROACH MD Ot S83.91XA SPRAIN OF UNSPECIFIED SITE OF RIGHT KNEE 07/21/2019 HAMMAD ROACH MD Ot W19.XXXA UNSPECIFIED FALL, INITIAL ENCOUNTER 07/21/2019 HAMMAD ROACH MD Ot Y92.[address] OF OCCURRENCE OF T 07/21/2019 HAMMAD ROACH MD Ot Z88. 0 ALLERGY STATUS TO PENICILLIN 07/21/2019 HAMMAD ROACH MD Ot Z88. 2 ALLERGY STATUS TO SULFONAMIDES STATUS 07/21/2019 HAMMAD ROACH MD Ot Z88. 8 ALLERGY STATUS TO OTH DRUG/MEDS/BIOL SUB 07/21/2019 HAMMAD ROACH MD Ot Z90. 5 ACQUIRED ABSENCE OF KIDNEY 07/21/2019 HAMMAD ROACH MD Ot Z90. 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 07/22/2019 JUAN LUIS HOLLINS, STEF Ortega Ot E78.00 PURE HYPERCHOLESTEROLEMIA, UNSPECIFIED 07/22/2019 JUAN LUIS HOLLINS, STEF Ortega Ot F32.9 MAJOR DEPRESSIVE DISORDER, SINGLE EPISOD 07/22/2019 JUAN LUIS HOLLINS, STEF Ortega Ot F41.9 ANXIETY DISORDER, UNSPECIFIED 07/22/2019 STEF MCKNIGHT MD Ot G40.909 EPILEPSY, UNSP, NOT INTRACTABLE, WITHOUT 07/22/2019 STEF MCKNIGHT MD Ot G43.909 MIGRAINE, UNSP, NOT INTRACTABLE, WITHOUT 07/22/2019 STEF MCKNIGHT MD Ot I10 ESSENTIAL (PRIMARY) HYPERTENSION 07/22/2019 JUAN LUIS HOLLINS, STEF Ortega Ot L29.9 PRURITUS, UNSPECIFIED 07/22/2019 STEF MCKNIGHT MD Ot Z88.0 ALLERGY STATUS TO PENICILLIN 07/22/2019 STEF MCKNIGHT MD Ot Z88.2 ALLERGY STATUS TO SULFONAMIDES STATUS 07/22/2019 STEF MCKNIGHT MD Ot Z88.8 ALLERGY STATUS TO OTH DRUG/MEDS/BIOL SUB 07/22/2019 STEF MCKNIGHT MD Ot Z90.5 ACQUIRED ABSENCE OF KIDNEY 07/22/2019 JUAN LUIS HOLLINS, STEF Ortega Ot Z90.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 07/23/2019 RAÚL DO, SHAQ K Ot E78.00 PURE HYPERCHOLESTEROLEMIA, UNSPECIFIED 07/23/2019 RAÚL DO, SHAQ K Ot F32.9 MAJOR DEPRESSIVE DISORDER, SINGLE EPISOD 07/23/2019 RAÚL DO SHAQ K Ot F41.9 ANXIETY DISORDER, UNSPECIFIED 07/23/2019 RAÚL DO, SHAQ K Ot G40.909 EPILEPSY, UNSP, NOT INTRACTABLE, WITHOUT 07/23/2019 RAÚL DO, SHAQ K Ot G43.909 MIGRAINE, UNSP, NOT INTRACTABLE, WITHOUT 07/23/2019 RAÚL DO, SHAQ K Ot I10 ESSENTIAL (PRIMARY) HYPERTENSION 07/23/2019 RAÚL DO, SHAQ K Ot N39.0 URINARY TRACT INFECTION, SITE NOT SPECIF 07/23/2019 RAÚL DO, SHAQ K Ot R56.9 UNSPECIFIED CONVULSIONS 07/23/2019 SHAQ OLSEN DO Ot Z87.891 PERSONAL HISTORY OF NICOTINE DEPENDENCE 07/23/2019 SHAQ OLSEN DO Ot Z88.0 ALLERGY STATUS TO PENICILLIN 07/23/2019 SHAQ OLSEN DO Ot Z88.2 ALLERGY STATUS TO SULFONAMIDES STATUS 07/23/2019 SHAQ OLSEN DO Ot Z88.8 ALLERGY STATUS TO OTH DRUG/MEDS/BIOL SUB 07/23/2019 SHAQ OLSEN DO Ot Z90.5 ACQUIRED ABSENCE OF KIDNEY 07/23/2019 RAÚLSHAQ Starks DO Ot Z90.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 07/26/2019 JUAN LUIS HOLLINS, STEF Ortega Ot E78.00 PURE HYPERCHOLESTEROLEMIA, UNSPECIFIED 07/26/2019 JUAN LUIS HOLLINS, STEF Ortega Ot F32.9 MAJOR DEPRESSIVE DISORDER, SINGLE EPISOD 07/26/2019 STEF MCKNIGHT MD Ot F41.9 ANXIETY DISORDER, UNSPECIFIED 07/26/2019 JUAN LUIS HOLLINS, STEF Ortega Ot G40.909 EPILEPSY, UNSP, NOT INTRACTABLE, WITHOUT 07/26/2019 STEF MCKNIGHT MD Ot G43.909 MIGRAINE, UNSP, NOT INTRACTABLE, WITHOUT 07/26/2019 STEF MCKNIGHT MD Ot I10 ESSENTIAL (PRIMARY) HYPERTENSION 07/26/2019 JUAN LUIS HOLLINS, STEF Ortega Ot L29.9 PRURITUS, UNSPECIFIED 07/26/2019 STEF MCKNIGHT MD Ot Z88.0 ALLERGY STATUS TO PENICILLIN 07/26/2019 STEF MCKNIGHT MD Ot Z88.2 ALLERGY STATUS TO SULFONAMIDES STATUS 07/26/2019 STEF MCKNIGHT MD Ot Z88.8 ALLERGY STATUS TO OTH DRUG/MEDS/BIOL SUB 07/26/2019 STEF MCKNIGHT MD Ot Z90.5 ACQUIRED ABSENCE OF KIDNEY 07/26/2019 STEF MCKNIGHT MD Ot Z90.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 07/26/2019 CELIA HUGHES APRN Ot E78.00 PURE HYPERCHOLESTEROLEMIA, UNSPECIFIED 07/26/2019 CLEIA HUGHES GIG TENDER Ot F32 .9 MAJOR DEPRESSIVE DISORDER, SINGLE EPISOD 07/26/2019 CELIA HUGHES APRN Ot F41 .9 ANXIETY DISORDER, UNSPECIFIED 07/26/2019 CELIA HUGHES APRN Ot G40.909 EPILEPSY, UNSP, NOT INTRACTABLE, WITHOUT 07/26/2019 CELIA HUGHES APRN Ot G43.909 MIGRAINE, UNSP, NOT INTRACTABLE, WITHOUT 07/26/2019 CELIA HUGHES APRN Ot I10 ESSENTIAL (PRIMARY) HYPERTENSION 07/26/2019 CELIA HUGHES APRN Ot R56 .9 UNSPECIFIED CONVULSIONS 07/26/2019 CELIA HUGHES APRN Ot Z88 .0 ALLERGY STATUS TO PENICILLIN 07/26/2019 CELIA HUGHES APRN Ot Z88 .2 ALLERGY STATUS TO SULFONAMIDES STATUS 07/26/2019 CELIA HUGHES APRN Ot Z88 .8 ALLERGY STATUS TO OTH DRUG/MEDS/BIOL SUB 07/26/2019 CELIA HUGHES APRN Ot Z90 .5 ACQUIRED ABSENCE OF KIDNEY 07/26/2019 CELIA HUGHES APRN Ot Z90.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 07/28/2019 RAÚL DO, SHAQ K Ot E78.00 PURE HYPERCHOLESTEROLEMIA, UNSPECIFIED 07/28/2019 RAÚL DO, SHAQ K Ot F32.9 MAJOR DEPRESSIVE DISORDER, SINGLE EPISOD 07/28/2019 RAÚL DO SHAQ K Ot F41.9 ANXIETY DISORDER, UNSPECIFIED 07/28/2019 RAÚL DO, SHAQ K Ot G40.909 EPILEPSY, UNSP, NOT INTRACTABLE, WITHOUT 07/28/2019 RAÚL DO SHAQ K Ot G43.909 MIGRAINE, UNSP, NOT INTRACTABLE, WITHOUT 07/28/2019 RAÚL DO SHAQ K Ot I10 ESSENTIAL (PRIMARY) HYPERTENSION 07/28/2019 RAÚL DO SHAQ K Ot K59.00 CONSTIPATION, UNSPECIFIED 07/28/2019 RAÚL DO SHAQ K Ot R11.2 NAUSEA WITH VOMITING, UNSPECIFIED 07/28/2019 RAÚL DO SHAQ K Ot Z87.891 PERSONAL HISTORY OF NICOTINE DEPENDENCE 07/28/2019 RAÚL DO SHAQ K Ot Z88.0 ALLERGY STATUS TO PENICILLIN 07/28/2019 RAÚL DO SHAQ K Ot Z88.2 ALLERGY STATUS TO SULFONAMIDES STATUS 07/28/2019 RAÚL PRICE SHAQ K Ot Z88.8 ALLERGY STATUS TO OTH DRUG/MEDS/BIOL SUB 07/28/2019 RAÚL DO SHAQ K Ot Z90.5 ACQUIRED ABSENCE OF KIDNEY 07/28/2019 RAÚL SHAQ K Ot Z90.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 07/28/2019 RAÚL PADMINI PRICEA K Ot E78.00 PURE HYPERCHOLESTEROLEMIA, UNSPECIFIED 07/28/2019 RAÚL SHAQ K Ot F32.9 MAJOR DEPRESSIVE DISORDER, SINGLE EPISOD 07/28/2019 RAÚL SHAQ K Ot F41.9 ANXIETY DISORDER, UNSPECIFIED 07/28/2019 RAÚL DO SHAQ K Ot G40.909 EPILEPSY, UNSP, NOT INTRACTABLE, WITHOUT 07/28/2019 RAÚL DO SHAQ K Ot G43.909 MIGRAINE, UNSP, NOT INTRACTABLE, WITHOUT 07/28/2019 RAÚL DO SHAQ K Ot I10 ESSENTIAL (PRIMARY) HYPERTENSION 07/28/2019 RAÚL SHAQ K Ot N39.0 URINARY TRACT INFECTION, SITE NOT SPECIF 07/28/2019 RAÚL PRICE SHAQ K Ot R56.9 UNSPECIFIED CONVULSIONS 07/28/2019 RAÚL SHAQ K Ot Z87.891 PERSONAL HISTORY OF NICOTINE DEPENDENCE 07/28/2019 RAÚL PRICE SHAQ K Ot Z88.0 ALLERGY STATUS TO PENICILLIN 07/28/2019 RAÚL PRICE SHAQ K Ot Z88.2 ALLERGY STATUS TO SULFONAMIDES STATUS 07/28/2019 RAÚL SHAQ K Ot Z88.8 ALLERGY STATUS TO OTH DRUG/MEDS/BIOL SUB 07/28/2019 RAÚL PRICE SHAQ K Ot Z90.5 ACQUIRED ABSENCE OF KIDNEY 07/28/2019 RAÚL SHAQ K Ot Z90.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 07/30/2019 CELAI HUGHES APRN Ot E78.00 PURE HYPERCHOLESTEROLEMIA, UNSPECIFIED 07/30/2019 CELIA HUGHES APRN Ot F32 .9 MAJOR DEPRESSIVE DISORDER, SINGLE EPISOD 07/30/2019 CELIA HUGHES APRN Ot F41 .9 ANXIETY DISORDER, UNSPECIFIED 07/30/2019 CELIA HUGHES APRN Ot G40.909 EPILEPSY, UNSP, NOT INTRACTABLE, WITHOUT 07/30/2019 CELIA HUGHES APRN Ot G43.909 MIGRAINE, UNSP, NOT INTRACTABLE, WITHOUT 07/30/2019 CELIA HUGHES APRN Ot I10 ESSENTIAL (PRIMARY) HYPERTENSION 07/30/2019 CELIA HUGHES APRN Ot R56 .9 UNSPECIFIED CONVULSIONS 07/30/2019 CELIA HUGHES GIG TENDER Ot Z88 .0 ALLERGY STATUS TO PENICILLIN 07/30/2019 CELIA HUGHES APRN Ot Z88 .2 ALLERGY STATUS TO SULFONAMIDES STATUS 07/30/2019 CELIA HUGHES APRN Ot Z88 .8 ALLERGY STATUS TO OTH DRUG/MEDS/BIOL SUB 07/30/2019 CELIA HUGHES APRN Ot Z90 .5 ACQUIRED ABSENCE OF KIDNEY 07/30/2019 CELIA HUGHES APRN Ot Z90.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 07/31/2019 RAÚL DO, SHAQ K Ot E78.00 PURE HYPERCHOLESTEROLEMIA, UNSPECIFIED 07/31/2019 RAÚL DO, SHAQ K Ot F32.9 MAJOR DEPRESSIVE DISORDER, SINGLE EPISOD 07/31/2019 RAÚL DO, SHAQ K Ot F41.9 ANXIETY DISORDER, UNSPECIFIED 07/31/2019 RAÚL DO, SHAQ K Ot G40.909 EPILEPSY, UNSP, NOT INTRACTABLE, WITHOUT 07/31/2019 RAÚL DO, SHAQ K Ot G43.909 MIGRAINE, UNSP, NOT INTRACTABLE, WITHOUT 07/31/2019 RAÚL DO, SHAQ K Ot I10 ESSENTIAL (PRIMARY) HYPERTENSION 07/31/2019 RAÚL DO, SHAQ K Ot N39.0 URINARY TRACT INFECTION, SITE NOT SPECIF 07/31/2019 RAÚL DO, SHAQ K Ot R56.9 UNSPECIFIED CONVULSIONS 07/31/2019 RAÚL DO SHAQ K Ot Z87.891 PERSONAL HISTORY OF NICOTINE DEPENDENCE 07/31/2019 RAÚL DO, SHAQ K Ot Z88.0 ALLERGY STATUS TO PENICILLIN 07/31/2019 RAÚL DO, SHAQ K Ot Z88.2 ALLERGY STATUS TO SULFONAMIDES STATUS 07/31/2019 RAÚL DO, SHAQ K Ot Z88.8 ALLERGY STATUS TO OTH DRUG/MEDS/BIOL SUB 07/31/2019 RAÚL DO, SHAQ K Ot Z90.5 ACQUIRED ABSENCE OF KIDNEY 07/31/2019 RAÚL DO, SHAQ K Ot Z90.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 07/31/2019 BERNOT, ANDREW Ot E78.00 PURE HYPERCHOLESTEROLEMIA, UNSPECIFIED 07/31/2019 DANAKRYSTIAN ANDREW Ot F32.9 MAJOR DEPRESSIVE DISORDER, SINGLE EPISOD 07/31/2019 DANAKRYSTIAN ANDREW Ot F41.9 ANXIETY DISORDER, UNSPECIFIED 07/31/2019 ERICK ANDREW Ot G40.909 EPILEPSY, UNSP, NOT INTRACTABLE, WITHOUT 07/31/2019 BERNOT, ANDREW Ot G43.909 MIGRAINE, UNSP, NOT INTRACTABLE, WITHOUT 07/31/2019 ERICK ANDREW Ot H66.92 OTITIS MEDIA, UNSPECIFIED, LEFT EAR 07/31/2019 ERICK ANDREW Ot H92.02 OTALGIA, LEFT EAR 07/31/2019 DANAOT, ANDREW Ot I10 ESSENTIAL (PRIMARY) HYPERTENSION 07/31/2019 SHASHANK SUAREZIS Ot N39.0 URINARY TRACT INFECTION, SITE NOT SPECIF 07/31/2019 ERICK ANDREW Ot R10.9 UNSPECIFIED ABDOMINAL PAIN 07/31/2019 SHASHANK SUAREZIS Ot W22.8XXA STRIKING AGAINST OR STRUCK BY OTHER OBJE 07/31/2019 SHASHANK SUAREZIS Ot Z88.0 ALLERGY STATUS TO PENICILLIN 07/31/2019 ERICK ANDREW Ot Z88.2 ALLERGY STATUS TO SULFONAMIDES STATUS 07/31/2019 ERICK ANDREW Ot Z88.8 ALLERGY STATUS TO OTH DRUG/MEDS/BIOL SUB 07/31/2019 ERICK ANDREW Ot Z90.5 ACQUIRED ABSENCE OF KIDNEY 07/31/2019 ERICK ANDREW Ot Z90.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 07/31/2019 JUAN LUIS HOLLINS, STEF T Ot E78.00 PURE HYPERCHOLESTEROLEMIA, UNSPECIFIED 07/31/2019 JUAN LUIS HOLLINS, STEF T Ot F32.9 MAJOR DEPRESSIVE DISORDER, SINGLE EPISOD 07/31/2019 JUAN LUIS HOLLINS, STEF T Ot F41.9 ANXIETY DISORDER, UNSPECIFIED 07/31/2019 JUAN LUIS HOLLINS, STEF T Ot G40.909 EPILEPSY, UNSP, NOT INTRACTABLE, WITHOUT 07/31/2019 STEF MCKNIGHT MD T Ot G43.909 MIGRAINE, UNSP, NOT INTRACTABLE, WITHOUT 07/31/2019 JUAN LUIS HOLLINS, STEF T Ot I10 ESSENTIAL (PRIMARY) HYPERTENSION 07/31/2019 JUAN LUIS HOLLINS, STEF Ortega Ot L29.9 PRURITUS, UNSPECIFIED 07/31/2019 JUAN LUIS HOLLINS, STEF Ortega Ot Z88.0 ALLERGY STATUS TO PENICILLIN 07/31/2019 JUAN LUIS HOLLINS, STEF Ortega Ot Z88.2 ALLERGY STATUS TO SULFONAMIDES STATUS 07/31/2019 JUAN LUIS HOLLINS, STEF Ortega Ot Z88.8 ALLERGY STATUS TO OTH DRUG/MEDS/BIOL SUB 07/31/2019 JUAN LUIS HOLLINS, STEF Ortega Ot Z90.5 ACQUIRED ABSENCE OF KIDNEY 07/31/2019 JUAN LUIS HOLLINS, STEF Ortega Ot Z90.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 08/06/2019 DAVID CHOI APRN Ot R56 .9 UNSPECIFIED CONVULSIONS 08/15/2019 NELIDA, ERIKA SECURITY AND PRIVACY CONSULTANT Ot E78.00 PURE HYPERCHOLESTEROLEMIA, UNSPECIFIED 08/15/2019 NELIDA, ERIKA SECURITY AND PRIVACY CONSULTANT Ot F32.9 MAJOR DEPRESSIVE DISORDER, SINGLE EPISOD 08/15/2019 NELIDA, ERIKA SECURITY AND PRIVACY CONSULTANT Ot F41.9 ANXIETY DISORDER, UNSPECIFIED 08/15/2019 NELIDA, ERIKA SECURITY AND PRIVACY CONSULTANT Ot G40.89 OTHER SEIZURES 08/15/2019 NELIDA, ERIKA SECURITY AND PRIVACY CONSULTANT Ot G40.909 EPILEPSY, UNSP, NOT INTRACTABLE, WITHOUT 08/15/2019 NELIDA, ERIKA SECURITY AND PRIVACY CONSULTANT Ot G43.909 MIGRAINE, UNSP, NOT INTRACTABLE, WITHOUT 08/15/2019 NELIDA, ERIKA SECURITY AND PRIVACY CONSULTANT Ot I10 ESSENTIAL (PRIMARY) HYPERTENSION 08/15/2019 NELIDA, ERIKA SECURITY AND PRIVACY CONSULTANT Ot N39.0 URINARY TRACT INFECTION, SITE NOT SPECIF 08/15/2019 NELIDA, ERIKA SECURITY AND PRIVACY CONSULTANT Ot R56.9 UNSPECIFIED CONVULSIONS 08/15/2019 NELIDA, ERIKA SECURITY AND PRIVACY CONSULTANT Ot Z88.0 ALLERGY STATUS TO PENICILLIN 08/15/2019 NELIDA, ERIKA SECURITY AND PRIVACY CONSULTANT Ot Z88.2 ALLERGY STATUS TO SULFONAMIDES STATUS 08/15/2019 NELIDA, ERIKA SECURITY AND PRIVACY CONSULTANT Ot Z88.8 ALLERGY STATUS TO OTH DRUG/MEDS/BIOL SUB 08/15/2019 NELIDA, ERIKA SECURITY AND PRIVACY CONSULTANT Ot Z90.5 ACQUIRED ABSENCE OF KIDNEY 08/15/2019 NELIDA, ERIKA SECURITY AND PRIVACY CONSULTANT Ot Z90.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 08/19/2019 NELIDA, ERIKA SECURITY AND PRIVACY CONSULTANT Ot E78.00 PURE HYPERCHOLESTEROLEMIA, UNSPECIFIED 08/19/2019 NELIDA, ERIKA SECURITY AND PRIVACY CONSULTANT Ot F32.9 MAJOR DEPRESSIVE DISORDER, SINGLE EPISOD 08/19/2019 NELIDA, ERIKA SECURITY AND PRIVACY CONSULTANT Ot F41.9 ANXIETY DISORDER, UNSPECIFIED 08/19/2019 NELIDA, ERIKA SECURITY AND PRIVACY CONSULTANT Ot G40.89 OTHER SEIZURES 08/19/2019 NELIDA, ERIKA SECURITY AND PRIVACY CONSULTANT Ot G40.909 EPILEPSY, UNSP, NOT INTRACTABLE, WITHOUT 08/19/2019 NELIDA, ERIKA SECURITY AND PRIVACY CONSULTANT Ot G43.909 MIGRAINE, UNSP, NOT INTRACTABLE, WITHOUT 08/19/2019 NELIDA, ERIKA SECURITY AND PRIVACY CONSULTANT Ot I10 ESSENTIAL (PRIMARY) HYPERTENSION 08/19/2019 NELIDA, ERIKA SECURITY AND PRIVACY CONSULTANT Ot N39.0 URINARY TRACT INFECTION, SITE NOT SPECIF 08/19/2019 NELIDA, ERIKA SECURITY AND PRIVACY CONSULTANT Ot R56.9 UNSPECIFIED CONVULSIONS 08/19/2019 NELIDA, ERIKA SECURITY AND PRIVACY CONSULTANT Ot Z88.0 ALLERGY STATUS TO PENICILLIN 08/19/2019 NELIDA ERIKA SECURITY AND PRIVACY CONSULTANT Ot Z88.2 ALLERGY STATUS TO SULFONAMIDES STATUS 08/19/2019 NELIDA ERIKA SECURITY AND PRIVACY CONSULTANT Ot Z88.8 ALLERGY STATUS TO OT DRUG/MEDS/BIOL SUB 08/19/2019 NELIDA, ERIKA SECURITY AND PRIVACY CONSULTANT Ot Z90.5 ACQUIRED ABSENCE OF KIDNEY 08/19/2019 NELIDA, ERIKA SECURITY AND PRIVACY CONSULTANT Ot Z90.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 08/21/2019 CELIA HUGHES APRN Ot E78.00 PURE HYPERCHOLESTEROLEMIA, UNSPECIFIED 08/21/2019 CELIA HUGHES APRN Ot F32 .9 MAJOR DEPRESSIVE DISORDER, SINGLE EPISOD 08/21/2019 CELIA HUGHES APRN Ot F41 .9 ANXIETY DISORDER, UNSPECIFIED 08/21/2019 CELIA HUGHES APRN Ot G40.909 EPILEPSY, UNSP, NOT INTRACTABLE, WITHOUT 08/21/2019 CELIA HUGHES APRN Ot G43.909 MIGRAINE, UNSP, NOT INTRACTABLE, WITHOUT 08/21/2019 CELIA HUGHES APRN Ot I10 ESSENTIAL (PRIMARY) HYPERTENSION 08/21/2019 CELIA HUGHES APRN Ot T78.40XA ALLERGY, UNSPECIFIED, INITIAL ENCOUNTER 08/21/2019 CELIA HUGHES APRN Ot Z88 .0 ALLERGY STATUS TO PENICILLIN 08/21/2019 CELIA HUGHES APRN Ot Z88 .2 ALLERGY STATUS TO SULFONAMIDES STATUS 08/21/2019 CELIA HUGHES APRN Ot Z88 .8 ALLERGY STATUS TO OTH DRUG/MEDS/BIOL SUB 08/21/2019 CELIA HUGHES APRN Ot Z90 .5 ACQUIRED ABSENCE OF KIDNEY 08/21/2019 CELIA HUGHES APRN Ot Z90.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 08/30/2019 DAVID CHOI GIG TENDER Ot R56 .9 UNSPECIFIED CONVULSIONS 08/31/2019 JUAN LUIS HOLLINS, STEF Ortega Ot E78.00 PURE HYPERCHOLESTEROLEMIA, UNSPECIFIED 08/31/2019 JUAN LUIS HOLLINS, STEF Ortega Ot F32.9 MAJOR DEPRESSIVE DISORDER, SINGLE EPISOD 08/31/2019 STEF MCKNIGHT MD Ot F41.9 ANXIETY DISORDER, UNSPECIFIED 08/31/2019 JUAN LUIS HOLLINS, STEF Ortega Ot G40.909 EPILEPSY, UNSP, NOT INTRACTABLE, WITHOUT 08/31/2019 STEF MCKNIGHT MD Ot G43.909 MIGRAINE, UNSP, NOT INTRACTABLE, WITHOUT 08/31/2019 JUAN LUIS HOLLINS, STEF Ortega Ot I10 ESSENTIAL (PRIMARY) HYPERTENSION 08/31/2019 JUAN LUIS HOLLINS, STEF Ortega Ot R10.12 LEFT UPPER QUADRANT PAIN 08/31/2019 STEF MCKNIGHT MD Ot S30.1XXA CONTUSION OF ABDOMINAL WALL, INITIAL ENC 08/31/2019 STEF MCKNIGHT MD Ot W22.8XXA STRIKING AGAINST OR STRUCK BY OTHER OBJE 08/31/2019 JUAN LUIS HOLLINS, STEF Ortega Ot Z88.0 ALLERGY STATUS TO PENICILLIN 08/31/2019 STEF MCKNIGHT MD Ot Z88.1 ALLERGY STATUS TO OTHER ANTIBIOTIC AGENT 08/31/2019 STEF MCKNIGHT MD Ot Z88.2 ALLERGY STATUS TO SULFONAMIDES STATUS 08/31/2019 STEF MCKNIGHT MD Ot Z88.8 ALLERGY STATUS TO OTH DRUG/MEDS/BIOL SUB 08/31/2019 STEF MCKNIGHT MD Ot Z90.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 08/31/2019 SHAQ OLSEN DO Ot E78.00 PURE HYPERCHOLESTEROLEMIA, UNSPECIFIED 08/31/2019 SHAQ OLSEN DO Ot F32.9 MAJOR DEPRESSIVE DISORDER, SINGLE EPISOD 08/31/2019 PADMINI OLSEN DOA Geo Ot F41.9 ANXIETY DISORDER, UNSPECIFIED 08/31/2019 PADMINI OLSEN DOA Geo Ot G40.909 EPILEPSY, UNSP, NOT INTRACTABLE, WITHOUT 08/31/2019 PADMINI OLSEN DOA K Ot G43.909 MIGRAINE, UNSP, NOT INTRACTABLE, WITHOUT 08/31/2019 PADMINI OLSEN DOA Geo Ot I10 ESSENTIAL (PRIMARY) HYPERTENSION 08/31/2019 SHAQ OLSEN DO Ot N39.0 URINARY TRACT INFECTION, SITE NOT SPECIF 08/31/2019 SHAQ OLSEN DO Ot R56.9 UNSPECIFIED CONVULSIONS 08/31/2019 SHAQ OLSEN DO Ot Z86.012 PERSONAL HISTORY OF BENIGN CARCINOID JETT 08/31/2019 SHAQ OLSEN DO Ot Z86.018 PERSONAL HISTORY OF OTHER BENIGN NEOPLAS 08/31/2019 SHAQ OLSEN DO Ot Z88.0 ALLERGY STATUS TO PENICILLIN 08/31/2019 SHAQ OLSEN DO Ot Z88.1 ALLERGY STATUS TO OTHER ANTIBIOTIC AGENT 08/31/2019 SHAQ OLSEN DO Ot Z88.2 ALLERGY STATUS TO SULFONAMIDES STATUS 08/31/2019 SHAQ OLSEN DO Ot Z88.8 ALLERGY STATUS TO OTH DRUG/MEDS/BIOL SUB 08/31/2019 SHAQ OLSEN DO Ot Z90.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 08/31/2019 CELIA HUGHES APRN Ot E78.00 PURE HYPERCHOLESTEROLEMIA, UNSPECIFIED 08/31/2019 CELIA HUGHES APRN Ot F32 .9 MAJOR DEPRESSIVE DISORDER, SINGLE EPISOD 08/31/2019 CELIA HUGHES APRN Ot F41 .9 ANXIETY DISORDER, UNSPECIFIED 08/31/2019 CELIA HUGHES APRN Ot G40.909 EPILEPSY, UNSP, NOT INTRACTABLE, WITHOUT 08/31/2019 CELIA HUGHES APRN Ot G43.909 MIGRAINE, UNSP, NOT INTRACTABLE, WITHOUT 08/31/2019 CELIA HUGHES APRN Ot I10 ESSENTIAL (PRIMARY) HYPERTENSION 08/31/2019 CELIA HUGHES APRN Ot J02 .8 ACUTE PHARYNGITIS DUE TO OTHER SPECIFIED 08/31/2019 CELIA HUGHES APRN Ot R07 .0 PAIN IN THROAT 08/31/2019 CELIA HUGHES APRN Ot Z86.010 PERSONAL HISTORY OF COLONIC POLYPS 08/31/2019 CELIA HUGHES APRN Ot Z87.891 PERSONAL HISTORY OF NICOTINE DEPENDENCE 08/31/2019 CELIA HUGHES APRN Ot Z88 .0 ALLERGY STATUS TO PENICILLIN 08/31/2019 CELIA HUGHES APRN Ot Z88 .1 ALLERGY STATUS TO OTHER ANTIBIOTIC AGENT 08/31/2019 CELIA HUGHES APRN Ot Z88 .2 ALLERGY STATUS TO SULFONAMIDES STATUS 08/31/2019 CELIA HUGHES APRN Ot Z88 .8 ALLERGY STATUS TO OTH DRUG/MEDS/BIOL SUB 08/31/2019 CELIA HUGHES APRN Ot Z90.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 08/31/2019 CELIA HUGHES APRN Ot E78.00 PURE HYPERCHOLESTEROLEMIA, UNSPECIFIED 08/31/2019 CELIA HUGHES APRN Ot F32 .9 MAJOR DEPRESSIVE DISORDER, SINGLE EPISOD 08/31/2019 CELIA HUGHES APRN Ot F41 .9 ANXIETY DISORDER, UNSPECIFIED 08/31/2019 CELIA HUGHES APRN Ot G40.909 EPILEPSY, UNSP, NOT INTRACTABLE, WITHOUT 08/31/2019 CELIA HUGHES APRN Ot G43.909 MIGRAINE, UNSP, NOT INTRACTABLE, WITHOUT 08/31/2019 CELIA HUGHES APRN Ot I10 ESSENTIAL (PRIMARY) HYPERTENSION 08/31/2019 CELIA HUGHES APRN Ot R56 .9 UNSPECIFIED CONVULSIONS 08/31/2019 CELIA HUGHES APRN Ot S80.211A ABRASION, RIGHT KNEE, INITIAL ENCOUNTER 08/31/2019 CELIA HUGHES APRN Ot W19.XXXA UNSPECIFIED FALL, INITIAL ENCOUNTER 08/31/2019 CELIA HUGHES APRN Ot Z88 .0 ALLERGY STATUS TO PENICILLIN 08/31/2019 CELIA HUGHES APRN Ot Z88 .2 ALLERGY STATUS TO SULFONAMIDES STATUS 08/31/2019 CELIA HUGHES APRN Ot Z88 .8 ALLERGY STATUS TO OTH DRUG/MEDS/BIOL SUB 08/31/2019 CELIA HUGHES APRN Ot Z90 .5 ACQUIRED ABSENCE OF KIDNEY 08/31/2019 CELIA HUGHES APRN Ot Z90.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 08/31/2019 JUAN LUIS HOLLINS, STEF Ortega Ot E78.00 PURE HYPERCHOLESTEROLEMIA, UNSPECIFIED 08/31/2019 JUAN LUIS HOLLINS, STEF Ortega Ot F32.9 MAJOR DEPRESSIVE DISORDER, SINGLE EPISOD 08/31/2019 JUAN LUIS HOLLINS, STEF Ortega Ot F41.9 ANXIETY DISORDER, UNSPECIFIED 08/31/2019 STEF MCKNIGHT MD Ot G40.909 EPILEPSY, UNSP, NOT INTRACTABLE, WITHOUT 08/31/2019 STEF MCKNIGHT MD Ot G43.909 MIGRAINE, UNSP, NOT INTRACTABLE, WITHOUT 08/31/2019 STEF MCKNIGHT MD Ot I10 ESSENTIAL (PRIMARY) HYPERTENSION 08/31/2019 STEF MCKNIGHT MD Ot L29.9 PRURITUS, UNSPECIFIED 08/31/2019 STEF MCKNIGHT MD Ot Z88.0 ALLERGY STATUS TO PENICILLIN 08/31/2019 STEF MCKNIGHT MD Ot Z88.2 ALLERGY STATUS TO SULFONAMIDES STATUS 08/31/2019 STEF MCKNIGHT MD Ot Z88.8 ALLERGY STATUS TO OTH DRUG/MEDS/BIOL SUB 08/31/2019 STEF MCKNIGHT MD Ot Z90.5 ACQUIRED ABSENCE OF KIDNEY 08/31/2019 JUAN LUIS HOLLINS, STEF Ortega Ot Z90.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 08/31/2019 RAÚL DO, SHAQ K Ot E78.00 PURE HYPERCHOLESTEROLEMIA, UNSPECIFIED 08/31/2019 RAÚL DO, SHAQ K Ot F32.9 MAJOR DEPRESSIVE DISORDER, SINGLE EPISOD 08/31/2019 RAÚL DO, SHAQ K Ot F41.9 ANXIETY DISORDER, UNSPECIFIED 08/31/2019 RAÚL DO, SHAQ K Ot G40.909 EPILEPSY, UNSP, NOT INTRACTABLE, WITHOUT 08/31/2019 RAÚL DO, SHAQ K Ot G43.909 MIGRAINE, UNSP, NOT INTRACTABLE, WITHOUT 08/31/2019 RAÚL DO, SHAQ K Ot I10 ESSENTIAL (PRIMARY) HYPERTENSION 08/31/2019 RAÚL DO, SHAQ K Ot K59.00 CONSTIPATION, UNSPECIFIED 08/31/2019 RAÚL DO, SHAQ K Ot R11.2 NAUSEA WITH VOMITING, UNSPECIFIED 08/31/2019 PADMINI OLSEN DOA K Ot Z87.891 PERSONAL HISTORY OF NICOTINE DEPENDENCE 08/31/2019 RAÚL PRICE SHAQ K Ot Z88.0 ALLERGY STATUS TO PENICILLIN 08/31/2019 RAÚL PRICE SHAQ K Ot Z88.2 ALLERGY STATUS TO SULFONAMIDES STATUS 08/31/2019 RAÚL SHAQ K Ot Z88.8 ALLERGY STATUS TO OTH DRUG/MEDS/BIOL SUB 08/31/2019 RAÚL SHAQ K Ot Z90.5 ACQUIRED ABSENCE OF KIDNEY 08/31/2019 RAÚL SHAQ K Ot Z90.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 08/31/2019 NELIDA, ERIKA SECURITY AND PRIVACY CONSULTANT Ot E78.00 PURE HYPERCHOLESTEROLEMIA, UNSPECIFIED 08/31/2019 NELIDA, ERIKA SECURITY AND PRIVACY CONSULTANT Ot F32.9 MAJOR DEPRESSIVE DISORDER, SINGLE EPISOD 08/31/2019 NELIDA, ERIKA SECURITY AND PRIVACY CONSULTANT Ot F41.9 ANXIETY DISORDER, UNSPECIFIED 08/31/2019 NELIDA ERIKA SECURITY AND PRIVACY CONSULTANT Ot G40.89 OTHER SEIZURES 08/31/2019 NELIDA, ERIKA SECURITY AND PRIVACY CONSULTANT Ot G40.909 EPILEPSY, UNSP, NOT INTRACTABLE, WITHOUT 08/31/2019 NELIDA, ERIKA SECURITY AND PRIVACY CONSULTANT Ot G43.909 MIGRAINE, UNSP, NOT INTRACTABLE, WITHOUT 08/31/2019 NELIDA, ERIKA SECURITY AND PRIVACY CONSULTANT Ot I10 ESSENTIAL (PRIMARY) HYPERTENSION 08/31/2019 NELIDA, ERIKA SECURITY AND PRIVACY CONSULTANT Ot N39.0 URINARY TRACT INFECTION, SITE NOT SPECIF 08/31/2019 NELIDA, ERIKA SECURITY AND PRIVACY CONSULTANT Ot R56.9 UNSPECIFIED CONVULSIONS 08/31/2019 NELIDA, ERIKA SECURITY AND PRIVACY CONSULTANT Ot Z88.0 ALLERGY STATUS TO PENICILLIN 08/31/2019 NELIDA, ERIKA SECURITY AND PRIVACY CONSULTANT Ot Z88.2 ALLERGY STATUS TO SULFONAMIDES STATUS 08/31/2019 NELIDA, ERIKA SECURITY AND PRIVACY CONSULTANT Ot Z88.8 ALLERGY STATUS TO OTH DRUG/MEDS/BIOL SUB 08/31/2019 NELIDA, ERIKA SECURITY AND PRIVACY CONSULTANT Ot Z90.5 ACQUIRED ABSENCE OF KIDNEY 08/31/2019 NELIDA, ERIKA SECURITY AND PRIVACY CONSULTANT Ot Z90.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 09/01/2019 RAÚL SHAQ K Ot E78.00 PURE HYPERCHOLESTEROLEMIA, UNSPECIFIED 09/01/2019 RAÚL SHAQ K Ot F17.210 NICOTINE DEPENDENCE, CIGARETTES, UNCOMPL 09/01/2019 RAÚL PRICE SHAQ K Ot F32.9 MAJOR DEPRESSIVE DISORDER, SINGLE EPISOD 09/01/2019 SHAQ OLSEN DO Ot F41.9 ANXIETY DISORDER, UNSPECIFIED 09/01/2019 SHAQ OLSEN DO Ot G40.909 EPILEPSY, UNSP, NOT INTRACTABLE, WITHOUT 09/01/2019 RAÚL DO SHAQ Geo Ot G43.909 MIGRAINE, UNSP, NOT INTRACTABLE, WITHOUT 09/01/2019 SHAQ OLSEN DO Ot I10 ESSENTIAL (PRIMARY) HYPERTENSION 09/01/2019 SHAQ OLSEN DO Ot M25.572 PAIN IN LEFT ANKLE AND JOINTS OF LEFT FO 09/01/2019 SHAQ OLSEN DO Ot S93.402 A SPRAIN OF UNSPECIFIED LIGAMENT OF LEFT A 09/01/2019 SHAQ OLSEN DO Ot X50.1XX A OVEREXERTION FROM PROLONGED STATIC OR AW 09/01/2019 SHAQ OLSEN DO Ot Z88.0 ALLERGY STATUS TO PENICILLIN 09/01/2019 SHAQ OLSEN DO Ot Z88.2 ALLERGY STATUS TO SULFONAMIDES STATUS 09/01/2019 RAÚL SHAQ PRICE Ot Z88.8 ALLERGY STATUS TO OTH DRUG/MEDS/BIOL SUB 09/01/2019 SHAQ OLSEN DO Ot Z90.5 ACQUIRED ABSENCE OF KIDNEY 09/01/2019 SHAQ OLSEN DO Ot Z90.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 09/01/2019 DAVID CHOI D GIG TENDER Ot R56 .9 UNSPECIFIED CONVULSIONS 09/01/2019 DAVID CHOI D GIG TENDER Ot R56 .9 UNSPECIFIED CONVULSIONS 09/03/2019 SHAQ OLSEN DO Ot E78.00 PURE HYPERCHOLESTEROLEMIA, UNSPECIFIED 09/03/2019 RAÚL SHAQ PRICE Ot F17.210 NICOTINE DEPENDENCE, CIGARETTES, UNCOMPL 09/03/2019 SHAQ OLSEN DO Ot F32.9 MAJOR DEPRESSIVE DISORDER, SINGLE EPISOD 09/03/2019 SHAQ OLSEN DO Ot F41.9 ANXIETY DISORDER, UNSPECIFIED 09/03/2019 SHAQ OLSEN DO Ot G40.909 EPILEPSY, UNSP, NOT INTRACTABLE, WITHOUT 09/03/2019 SHAQ OLSEN DO Ot G43.909 MIGRAINE, UNSP, NOT INTRACTABLE, WITHOUT 09/03/2019 RAÚL SHAQ Geo Ot I10 ESSENTIAL (PRIMARY) HYPERTENSION 09/03/2019 RAÚL , SHAQ Guardado Ot M25.572 PAIN IN LEFT ANKLE AND JOINTS OF LEFT FO 09/03/2019 RAÚL PADMINIA Geo Ot S93.402 A SPRAIN OF UNSPECIFIED LIGAMENT OF LEFT A 09/03/2019 RAÚL SHAQ Ot X50.1XX A OVEREXERTION FROM PROLONGED STATIC OR AW 09/03/2019 RAÚL SHAQ Ot Z88.0 ALLERGY STATUS TO PENICILLIN 09/03/2019 RAÚL SHAQ Ot Z88.2 ALLERGY STATUS TO SULFONAMIDES STATUS 09/03/2019 RAÚL SHAQ Ot Z88.8 ALLERGY STATUS TO OTH DRUG/MEDS/BIOL SUB 09/03/2019 RAÚL SHAQ K Ot Z90.5 ACQUIRED ABSENCE OF KIDNEY 09/03/2019 RAÚL SHAQ Ot Z90.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 11/20/2019 CELIA HUGHES APRN Ot G40.909 EPILEPSY, UNSP, NOT INTRACTABLE, WITHOUT 11/20/2019 CELIA HUGHES APRN Ot R40.2142 COMA SCALE, EYES OPEN, SPONTANEOUS, EMR 11/20/2019 CELIA HUGHES APRN Ot R40.2252 COMA SCALE, BEST VERBAL RESPONSE, ORIENT 11/20/2019 CELIA HUGHES APRN Ot R40.2362 COMA SCALE, BEST MOTOR RESPONSE, OBEYS C 11/20/2019 CELIA HUGHES APRN Ot R56 .9 UNSPECIFIED CONVULSIONS 11/20/2019 CELIA HUGHES APRN Ot S09.90XA UNSPECIFIED INJURY OF HEAD, INITIAL ENCO 11/20/2019 CELIA HUGHES APRN Ot W18.39XA OTHER FALL ON SAME LEVEL, INITIAL ENCOUN 11/20/2019 CELIA HUGHES APRN Ot W22.8XXA STRIKING AGAINST OR STRUCK BY OTHER OBJE 11/20/2019 CELIA HUGHES APRN Ot Z88 .0 ALLERGY STATUS TO PENICILLIN 11/20/2019 CELIA HUGHES APRN Ot Z88 .2 ALLERGY STATUS TO SULFONAMIDES STATUS 11/20/2019 CELIA HUGHES APRN Ot Z88 .8 ALLERGY STATUS TO OTH DRUG/MEDS/BIOL SUB 11/22/2019 DAVID CHOI GIG TENDER Ot R56 .9 UNSPECIFIED CONVULSIONS 11/22/2019 DAVID CHOI GIG TENDER Ot R56 .9 UNSPECIFIED CONVULSIONS 12/17/2019 CELIA HUGHES GIG TENDER Ot G40.909 EPILEPSY, UNSP, NOT INTRACTABLE, WITHOUT 12/17/2019 SAUL, CELIA Mijares GIG TENDER Ot R51 HEADACHE 12/17/2019 CELIA HUGHES GIG TENDER Ot Z86.69 PERSONAL HISTORY OF DIS OF THE NERVOUS S 12/17/2019 CELIA HUGHES GIG TENDER Ot Z88 .0 ALLERGY STATUS TO PENICILLIN 12/17/2019 CELIA HUGHES GIG TENDER Ot Z88 .2 ALLERGY STATUS TO SULFONAMIDES STATUS 12/17/2019 CELIA HUGHES GIG TENDER Ot Z88 .8 ALLERGY STATUS TO OTH DRUG/MEDS/BIOL SUB 12/22/2019 NELIDA, ERIKA SECURITY AND PRIVACY CONSULTANT Ot G40.909 EPILEPSY, UNSP, NOT INTRACTABLE, WITHOUT 12/22/2019 NELIDA, ERIKA SECURITY AND PRIVACY CONSULTANT Ot G43.909 MIGRAINE, UNSP, NOT INTRACTABLE, WITHOUT 12/22/2019 NELIDA, ERIKA SECURITY AND PRIVACY CONSULTANT Ot M54.5 LOW BACK PAIN 12/22/2019 NELIDA, ERIKA SECURITY AND PRIVACY CONSULTANT Ot R56.9 UNSPECIFIED CONVULSIONS 12/22/2019 NELIDA, ERIKA SECURITY AND PRIVACY CONSULTANT Ot Z88.0 ALLERGY STATUS TO PENICILLIN 12/22/2019 NELIDA, ERIKA SECURITY AND PRIVACY CONSULTANT Ot Z88.2 ALLERGY STATUS TO SULFONAMIDES STATUS 12/22/2019 NELIDA, ERIKA SECURITY AND PRIVACY CONSULTANT Ot Z88.8 ALLERGY STATUS TO OTH DRUG/MEDS/BIOL SUB 12/27/2019 NELIDA, ERIKA SECURITY AND PRIVACY CONSULTANT Ot G40.909 EPILEPSY, UNSP, NOT INTRACTABLE, WITHOUT 12/27/2019 NELIDA, ERIKA SECURITY AND PRIVACY CONSULTANT Ot G43.909 MIGRAINE, UNSP, NOT INTRACTABLE, WITHOUT 12/27/2019 NELIDA, ERIKA SECURITY AND PRIVACY CONSULTANT Ot M54.5 LOW BACK PAIN 12/27/2019 NELIDA, ERIKA SECURITY AND PRIVACY CONSULTANT Ot R56.9 UNSPECIFIED CONVULSIONS 12/27/2019 NELIDA, ERIKA SECURITY AND PRIVACY CONSULTANT Ot Z88.0 ALLERGY STATUS TO PENICILLIN 12/27/2019 NELIDA, ERIKA SECURITY AND PRIVACY CONSULTANT Ot Z88.2 ALLERGY STATUS TO SULFONAMIDES STATUS 12/27/2019 NELIDA, ERIKA SECURITY AND PRIVACY CONSULTANT Ot Z88.8 ALLERGY STATUS TO OTH DRUG/MEDS/BIOL SUB 01/05/2020 CELIA HUGHES APRN Ot G40.909 EPILEPSY, UNSP, NOT INTRACTABLE, WITHOUT 01/05/2020 CELIA HUGHES APRN Ot R56 .9 UNSPECIFIED CONVULSIONS 01/05/2020 CELIA HUGHES APRN Ot Z88 .0 ALLERGY STATUS TO PENICILLIN 01/05/2020 CELIA HUGHES APRN Ot Z88 .2 ALLERGY STATUS TO SULFONAMIDES STATUS 01/05/2020 CELIA HUGHES APRN Ot Z88 .8 ALLERGY STATUS TO OTH DRUG/MEDS/BIOL SUB 01/07/2020 CELIA HUGHES APRN Ot G40.909 EPILEPSY, UNSP, NOT INTRACTABLE, WITHOUT 01/07/2020 CELIA HUGHES APRN Ot R56 .9 UNSPECIFIED CONVULSIONS 01/07/2020 CELIA HUGHES APRN Ot Z88 .0 ALLERGY STATUS TO PENICILLIN 01/07/2020 CELIA HUGHES APRN Ot Z88 .2 ALLERGY STATUS TO SULFONAMIDES STATUS 01/07/2020 CELIA HUGHES APRN Ot Z88 .8 ALLERGY STATUS TO OTH DRUG/MEDS/BIOL SUB 01/13/2020 CELIA HUGHES APRN Ot G40.909 EPILEPSY, UNSP, NOT INTRACTABLE, WITHOUT 01/13/2020 CEILA HUGHES APRN Ot R40.2142 COMA SCALE, EYES OPEN, SPONTANEOUS, EMR 01/13/2020 CELIA HUGHES APRN Ot R40.2252 COMA SCALE, BEST VERBAL RESPONSE, ORIENT 01/13/2020 CELIA HUGHES APRN Ot R40.2362 COMA SCALE, BEST MOTOR RESPONSE, OBEYS C 01/13/2020 CELIA HUGHES APRN Ot R56 .9 UNSPECIFIED CONVULSIONS 01/13/2020 CELIA HUGHES APRN Ot S09.90XA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 plasma protein measurement (mass/volume) 6.7 g/dL 6.4-8.2 Serum or plasma albumin measurement (mass/volume) 4.1 g/dL 3.2-4.5 CALCIUM CORRECTED 9.2 mg/dL 8.5-10.1 Complete urinalysis with reflex to cultu re - 04/27/19 23:45 Urine color determination YELLOW NRG Urine clarity determination CLEAR NR G Urine pH measurement by test strip 6 5-9 Specific gravity of urine by test strip 1.020 1.016-1.022 Urine protein assay by test strip, semi-quantitative NEGATIVE NEGATIVE Urine glucose detection by automated test strip NE GATIVE NEGATIVE Erythrocytes detection in urine sediment by light micr oscopy NEGATIVE NEGATIVE Urine ketones detection by automated test strip NE GATIVE NEGATIVE Urine nitrite detection by test strip NEGATIVE NEGATIVE Urine total bilirubin detection by test strip NEGA TIVE NEGATIVE Urine urobilinogen measurement by automated test strip (mass/volume) NORMAL NORMAL Urine leukocyte esterase detection by dipstick NEG ATIVE NEGATIVE Automated urine sediment erythrocyte cou nt by microscopy (number/high power field) NONE NRG Automated urine sediment leukocyte count by microscopy (number/high power field) NONE NRG Bacteria detection in urine sediment by light microsco py TRACE NRG Squamous epithelial cells detection in u rine sediment by light microscopy 2-5 NRG Crystals detection in urine sediment by light microsco py NONE NRG Casts detection in urine sediment by light microscopy NONE NRG Mucus detection in urine sediment by light microscopy NEGATIVE NRG Complete urinalysis with reflex to culture NO NRG Complete blood count (CBC) with automate d white blood cell (WBC) differential - 05/26/19 11:26 Blood leukocytes automated count (number/volume) 6.0 10*3/uL 4.3-11.0 Blood erythrocytes automated count (number/volume) 4.83 10*6/uL 4.35-5.85 Venous blood hemoglobin measurement (mass/volume) 13.9 g/dL 11.5-16.0 Blood hematocrit (volume fraction) 41 % 35-52 Automated erythrocyte mean corpuscular volume 85 [ foz_us] 80-99 Automated erythrocyte mean corpuscular h emoglobin (mass per erythrocyte) 29 pg 25-34 Automated erythrocyte mean corpuscular h emoglobin concentration measurement (mass/volume) 34 g/dL 32-36 Automated erythrocyte distribution width ratio 13. 2 % 10.0- 14.5 Automated blood platelet count (count/volume) 254 10*3/uL 130-400 Automated blood platelet mean volume measurement 11.0 [foz_us] 7.4-10.4 Automated blood neutrophils/100 leukocytes 63 % 42-75 Automated blood lymphocytes/100 leukocytes 25 % 12-44 Blood monocytes/100 leukocytes 11 % 0-12 Automated blood eosinophils/100 leukocytes 0 % 0-10 Automated blood basophils/100 leukocytes 1 % 0-10 Blood neutrophils automated count (number/volume) 3.8 10*3 1.8-7.8 Blood lymphocytes automated count (number/volume) 1.5 10*3 1.0-4.0 Blood monocytes automated count (number/volume) 0. 7 10*3 0.0-1.0 Automated eosinophil count 0.0 10*3/uL 0 .0-0.3 Automated blood basophil count (count/volume) 0.1 10*3/uL 0.0-0.1 Comprehensive metabolic panel - 05/26/19 11:26 Serum or plasma sodium measurement (moles/volume) 140 mmol/L 135-145 Serum or plasma potassium measurement (moles/volume) 4.1 mmol/L 3.6-5.0 Serum or plasma chloride measurement (moles/volume) 106 mmol/L 98-107 Carbon dioxide 26 mmol/L 21-32 Serum or plasma anion gap determination (moles/volume) 8 mmol/L 5-14 Serum or plasma urea nitrogen measurement (mass/volume ) 12 mg/dL 7-18 Serum or plasma creatinine measurement (mass/volume) 0.72 mg/dL 0.60-1.30 Serum or plasma urea nitrogen/creatinine mass ratio 17 NRG Serum or plasma creatinine measurement w ith calculation of estimated glomerular filtration rate > NRG Serum or plasma glucose measurement (mass/volume) 87 mg/dL 70-105 Serum or plasma calcium measurement (mass/volume) 9.8 mg/dL 8.5-10.1 Serum or plasma total bilirubin measurement (mass/volu me) 0.4 mg/dL 0.1-1.0 Serum or plasma alkaline phosphatase juan miguel surement (enzymatic activity/volume) 73 U/L 40-136 Serum or plasma aspartate aminotransfera se measurement (enzymatic activity/volume) 12 U/L 5-34 Serum or plasma alanine aminotransferase measurement (enzymatic activity/volume) 16 U/L 0-55 Serum or plasma protein measurement (mass/volume) 7.0 g/dL 6.4-8.2 Serum or plasma albumin measurement (mass/volume) 4.2 g/dL 3.2-4.5 CALCIUM CORRECTED 9.6 mg/dL 8.5-10.1 Serum or plasma amylase measurement (enz ymatic activity/volume) - 05/26/19 11:26 Serum or plasma amylase measurement (enzymatic activit y/volume) 43 U/L 25-125 Lipase - 05/26/19 11:26 Lipase 40 U/L 8-78 Urine beta human chorionic gonadotropin (hCG) measurement - 05/26/19 12:26 Urine beta human chorionic gonadotropin (hCG) measurem ent NEGATIVE NEGATIVE Complete urinalysis with reflex to cultu re - 05/26/19 12:26 Urine color determination YELLOW NRG Urine clarity determination SL CLOUDY N RG Urine pH measurement by test strip 8 5-9 Specific gravity of urine by test strip 1.015 1.016-1.022 Urine protein assay by test strip, semi-quantitative NEGATIVE NEGATIVE Urine glucose detection by automated test strip NE GATIVE NEGATIVE Erythrocytes detection in urine sediment by light micr oscopy 4+ NEGATIVE Urine ketones detection by automated test strip NE GATIVE NEGATIVE Urine nitrite detection by test strip NEGATIVE NEGATIVE Urine total bilirubin detection by test strip NEGA TIVE NEGATIVE Urine urobilinogen measurement by automated test strip (mass/volume) NORMAL NORMAL Urine leukocyte esterase detection by dipstick 3+ NEGATIVE Automated urine sediment erythrocyte cou nt by microscopy (number/high power field) [HPF] NRG Automated urine sediment leukocyte count by microscopy (number/high power field) > [HPF] NRG Bacteria detection in urine sediment by light microsco py MODERATE NRG Squamous epithelial cells detection in u rine sediment by light microscopy 25-50 NRG Crystals detection in urine sediment by light microsco py NONE NRG Casts detection in urine sediment by light microscopy NONE NRG Mucus detection in urine sediment by light microscopy NEGATIVE NRG Complete urinalysis with reflex to culture YES NRG Bacterial urine culture - 05/26/19 12:26 Bacterial urine culture 3 OR MORE NRG COLONY COUNT 80,000 CFU/ML NRG FTX;REPORTABLE GRAM POSITIVES, SUGGESTING PROBABLE NRG FREE TEXT ENTRY 2 COLLECTION CONTAMINATION WITH SK IN BILL NRG FREE TEXT ENTRY 3 NO SUSCEPTIBILITY PERFORMED NRG Complete blood count (CBC) with automate d white blood cell (WBC) differential - 06/05/19 17:06 Blood leukocytes automated count (number/volume) 6.5 10*3/uL 4.3-11.0 Blood erythrocytes automated count (number/volume) 4.85 10*6/uL 4.35-5.85 Venous blood hemoglobin measurement (mass/volume) 14.0 g/dL 11.5-16.0 Blood hematocrit (volume fraction) 41 % 35-52 Automated erythrocyte mean corpuscular volume 85 [ foz_us] 80-99 Automated erythrocyte mean corpuscular h emoglobin (mass per erythrocyte) 29 pg 25-34 Automated erythrocyte mean corpuscular h emoglobin concentration measurement (mass/volume) 34 g/dL 32-36 Automated erythrocyte distribution width ratio 12. 9 % 10.0- 14.5 Automated blood platelet count (count/volume) 311 10*3/uL 130-400 Automated blood platelet mean volume measurement 10.6 [foz_us] 7.4-10.4 Automated blood neutrophils/100 leukocytes 67 % 42-75 Automated blood lymphocytes/100 leukocytes 26 % 12-44 Blood monocytes/100 leukocytes 6 % 0-12 Automated blood eosinophils/100 leukocytes 0 % 0-10 Automated blood basophils/100 leukocytes 1 % 0-10 Blood neutrophils automated count (number/volume) 4.4 10*3 1.8-7.8 Blood lymphocytes automated count (number/volume) 1.7 10*3 1.0-4.0 Blood monocytes automated count (number/volume) 0. 4 10*3 0.0-1.0 Automated eosinophil count 0.0 10*3/uL 0 .0-0.3 Automated blood basophil count (count/volume) 0.1 10*3/uL 0.0-0.1 Comprehensive metabolic panel - 06/05/19 17:06 Serum or plasma sodium measurement (moles/volume) 142 mmol/L 135-145 Serum or plasma potassium measurement (moles/volume) 4.0 mmol/L 3.6-5.0 Serum or plasma chloride measurement (moles/volume) 108 mmol/L 98-107 Carbon dioxide 22 mmol/L 21-32 Serum or plasma anion gap determination (moles/volume) 12 mmol/L 5-14 Serum or plasma urea nitrogen measurement (mass/volume ) 11 mg/dL 7-18 Serum or plasma creatinine measurement (mass/volume) 0.79 mg/dL 0.60-1.30 Serum or plasma urea nitrogen/creatinine mass ratio 14 NRG Serum or plasma creatinine measurement w ith calculation of estimated glomerular filtration rate > NRG Serum or plasma glucose measurement (mass/volume) 151 mg/dL 70-105 Serum or plasma calcium measurement (mass/volume) 9.4 mg/dL 8.5-10.1 Serum or plasma total bilirubin measurement (mass/volu me) 0.4 mg/dL 0.1-1.0 Serum or plasma alkaline phosphatase juan miguel surement (enzymatic activity/volume) 78 U/L 40-136 Serum or plasma aspartate aminotransfera se measurement (enzymatic activity/volume) 15 U/L 5-34 Serum or plasma alanine aminotransferase measurement (enzymatic activity/volume) 19 U/L 0-55 Serum or plasma protein measurement (mass/volume) 7.1 g/dL 6.4-8.2 Serum or plasma albumin measurement (mass/volume) 4.3 g/dL 3.2-4.5 CALCIUM CORRECTED 9.2 mg/dL 8.5-10.1 Complete urinalysis with reflex to cultu re - 08/17/19 17:06 Urine color determination YELLOW NRG Urine clarity determination SLIGHTLY CLOUDY NRG Urine pH measurement by test strip 6 5-9 Specific gravity of urine by test strip 1.010 1.016-1.022 Urine protein assay by test strip, semi-quantitative NEGATIVE NEGATIVE Urine glucose detection by automated test strip NE GATIVE NEGATIVE Erythrocytes detection in urine sediment by light micr oscopy NEGATIVE NEGATIVE Urine ketones detection by automated test strip NE GATIVE NEGATIVE Urine nitrite detection by test strip NEGATIVE NEGATIVE Urine total bilirubin detection by test strip NEGA TIVE NEGATIVE Urine urobilinogen measurement by automated test strip (mass/volume) NORMAL NORMAL Urine leukocyte esterase detection by dipstick 2+ NEGATIVE Automated urine sediment erythrocyte cou nt by microscopy (number/high power field) NONE NRG Automated urine sediment leukocyte count by microscopy (number/high power field) [HPF] NRG Bacteria detection in urine sediment by light microsco py FEW NRG Squamous epithelial cells detection in u rine sediment by light microscopy 2-5 NRG Crystals detection in urine sediment by light microsco py PRESENT NRG Casts detection in urine sediment by light microscopy NONE NRG Mucus detection in urine sediment by light microscopy NEGATIVE NRG Complete urinalysis with reflex to culture YES NRG Amorphous sediment detection in urine sediment by ligh t microscopy FEW CEDRIC URATES NRG Serum or plasma choriogonadotropin (preg noel test) detection - 06/05/19 17:06 Serum or plasma choriogonadotropin ( test) de tection NEGATIVE NEGATIVE Bacterial urine culture - 06/05/19 17:06 Bacterial urine culture 3 OR MORE NRG COLONY COUNT >100,000/ML NRG FTX;REPORTABLE (GRAM POSITIVE) SUGGESTING PROBABLE NRG FREE TEXT ENTRY 2 COLLECTION CONTAMINATION WITH SK IN BILL NRG FREE TEXT ENTRY 3 NO SUSCEPTIBILITY PERFORMED NRG LEVETIRACETAM LEVEL (KEPPRA) - 06/05/19 17:06 LEVETIRACETAM LEVEL 24 % NRG Complete urinalysis with reflex to cultu re - 07/23/19 21:06 Urine color determination YELLOW NRG Urine clarity determination SLIGHTLY CLOUDY NRG Urine pH measurement by test strip 7 5-9 Specific gravity of urine by test strip 1.015 1.016-1.022 Urine protein assay by test strip, semi-quantitative NEGATIVE NEGATIVE Urine glucose detection by automated test strip NE GATIVE NEGATIVE Erythrocytes detection in urine sediment by light micr oscopy 5+ NEGATIVE Urine ketones detection by automated test strip NE GATIVE NEGATIVE Urine nitrite detection by test strip NEGATIVE NEGATIVE Urine total bilirubin detection by test strip NEGA TIVE NEGATIVE Urine urobilinogen measurement by automated test strip (mass/volume) NORMAL NORMAL Urine leukocyte esterase detection by dipstick 2+ NEGATIVE Automated urine sediment erythrocyte cou nt by microscopy (number/high power field) [HPF] NRG Automated urine sediment leukocyte count by microscopy (number/high power field) [HPF] NRG Bacteria detection in urine sediment by light microsco py FEW NRG Squamous epithelial cells detection in u rine sediment by light microscopy 08-13 NRG Crystals detection in urine sediment by light microsco py PRESENT NRG Casts detection in urine sediment by light microscopy NONE NRG Mucus detection in urine sediment by light microscopy NEGATIVE NRG Complete urinalysis with reflex to culture YES NRG Amorphous sediment detection in urine sediment by ligh t microscopy FEW CEDRIC PHOSPHATE NRG Urine drug screening test - 07/23/19 21: 06 Urine phencyclidine detection by screening method NEGATIVE NEGATIVE Urine benzodiazepines detection by screening method NEGATIVE NEGATIVE Urine cocaine detection NEGATIVE NEGATI VE Urine amphetamines detection by screening method N EGATIVE NEGATIVE Urine methamphetamine detection by screening method NEGATIVE NEGATIVE Urine cannabinoids detection by screening method N EGATIVE NEGATIVE Urine opiates detection by screening method NEGATI VE NEGATIVE Urine barbiturates detection NEGATIVE N EGATIVE Screening urine tricyclic antidepressants detection NEGATIVE NEGATIVE Urine methadone detection by screening method NEGA TIVE NEGATIVE Urine oxycodone detection NEGATIVE NEGA TIVE Urine propoxyphene detection NEGATIVE N EGATIVE Bacterial urine culture - 07/23/19 21:06 Bacterial urine culture 3 OR MORE NRG COLONY COUNT >100,000/ML NRG FTX;REPORTABLE SUGGESTING PROBABLE COLLECTION NRG FREE TEXT ENTRY 2 CONTAMINATION WITH SKIN BILL NRG FREE TEXT ENTRY 3 NO SUSCEPTIBILITY PERFORMED NRG Complete blood count (CBC) with automate d white blood cell (WBC) differential - 07/23/19 21:18 Blood leukocytes automated count (number/volume) 8.7 10*3/uL 4.3-11.0 Blood erythrocytes automated count (number/volume) 4.65 10*6/uL 4.35-5.85 Venous blood hemoglobin measurement (mass/volume) 13.5 g/dL 11.5-16.0 Blood hematocrit (volume fraction) 40 % 35-52 Automated erythrocyte mean corpuscular volume 86 [ foz_us] 80-99 Automated erythrocyte mean corpuscular h emoglobin (mass per erythrocyte) 29 pg 25-34 Automated erythrocyte mean corpuscular h emoglobin concentration measurement (mass/volume) 34 g/dL 32-36 Automated erythrocyte distribution width ratio 12. 9 % 10.0- 14.5 Automated blood platelet count (count/volume) 269 10*3/uL 130-400 Automated blood platelet mean volume measurement 10.6 [foz_us] 7.4-10.4 Automated blood neutrophils/100 leukocytes 64 % 42-75 Automated blood lymphocytes/100 leukocytes 28 % 12-44 Blood monocytes/100 leukocytes 8 % 0-12 Automated blood eosinophils/100 leukocytes 0 % 0-10 Automated blood basophils/100 leukocytes 1 % 0-10 Blood neutrophils automated count (number/volume) 5.5 10*3 1.8-7.8 Blood lymphocytes automated count (number/volume) 2.4 10*3 1.0-4.0 Blood monocytes automated count (number/volume) 0. 7 10*3 0.0-1.0 Automated eosinophil count 0.0 10*3/uL 0 .0-0.3 Automated blood basophil count (count/volume) 0.1 10*3/uL 0.0-0.1 Serum or plasma choriogonadotropin (preg noel test) detection - 07/23/19 21:18 Serum or plasma choriogonadotropin ( test) de tection NEGATIVE NEGATIVE Comprehensive metabolic panel - 07/23/19 21:18 Serum or plasma sodium measurement (moles/volume) 142 mmol/L 135-145 Serum or plasma potassium measurement (moles/volume) 3.9 mmol/L 3.6-5.0 Serum or plasma chloride measurement (moles/volume) 108 mmol/L 98-107 Carbon dioxide 24 mmol/L 21-32 Serum or plasma anion gap determination (moles/volume) 10 mmol/L 5-14 Serum or plasma urea nitrogen measurement (mass/volume ) 17 mg/dL 7-18 Serum or plasma creatinine measurement (mass/volume) 0.77 mg/dL 0.60-1.30 Serum or plasma urea nitrogen/creatinine mass ratio 22 NRG Serum or plasma creatinine measurement w ith calculation of estimated glomerular filtration rate > NRG Serum or plasma glucose measurement (mass/volume) 117 mg/dL 70-105 Serum or plasma calcium measurement (mass/volume) 9.2 mg/dL 8.5-10.1 Serum or plasma total bilirubin measurement (mass/volu me) 0.2 mg/dL 0.1-1.0 Serum or plasma alkaline phosphatase juan miguel surement (enzymatic activity/volume) 74 U/L 40-136 Serum or plasma aspartate aminotransfera se measurement (enzymatic activity/volume) 13 U/L 5-34 Serum or plasma alanine aminotransferase measurement (enzymatic activity/volume) 15 U/L 0-55 Serum or plasma protein measurement (mass/volume) 6.8 g/dL 6.4-8.2 Serum or plasma albumin measurement (mass/volume) 4.0 g/dL 3.2-4.5 CALCIUM CORRECTED 9.2 mg/dL 8.5-10.1 Magnesium - 07/23/19 21:18 Magnesium 2.1 mg/dL 1.6-2.4 Serum or plasma creatine kinase measurem ent (enzymatic activity/volume) - 07/23/19 21:18 Serum or plasma creatine kinase measurem ent (enzymatic activity/volume) 24 U/L 29-168 Serum or plasma acetaminophen measuremen t (mass/volume) - 07/23/19 21:18 Serum or plasma acetaminophen measurement (mass/volume ) < ug/mL 10-30 Serum or plasma creatine kinase MB measu rement (enzymatic activity/volume) - 07/23/19 21:18 Serum or plasma creatine kinase MB measu rement (enzymatic activity/volume) 0.4 ng/mL <6.6 Serum or plasma ethanol measurement (mas s/volume) - 07/23/19 21:18 Serum or plasma ethanol measurement (mass/volume) < mg/dL <10 Myoglobin, serum - 07/23/19 21:18 Myoglobin, serum 16.4 ng/mL 10.0-92.0 Serum or plasma thyrotropin measurement by detection limit <=0.05 miu/l (units/volume) - 07/23/19 21:18 Serum or plasma thyrotropin measurement by detection limit <=0.05 miu/l (units/volume) 1.25 u[iU]/mL 0.35-4.94 Serum or plasma acetaminophen measuremen t (mass/volume) - 07/23/19 21:18 Serum or plasma acetaminophen measurement (mass/volume ) < ug/mL 10-30 Serum or plasma ethanol measurement (mas s/volume) - 07/23/19 21:18 Serum or plasma ethanol measurement (mass/volume) < mg/dL <10 Urine drug screening test - 08/15/19 11: 27 Urine phencyclidine detection by screening method NEGATIVE NEGATIVE Urine benzodiazepines detection by screening method NEGATIVE NEGATIVE Urine cocaine detection NEGATIVE NEGATI VE Urine amphetamines detection by screening method N EGATIVE NEGATIVE Urine methamphetamine detection by screening method NEGATIVE NEGATIVE Urine cannabinoids detection by screening method N EGATIVE NEGATIVE Urine opiates detection by screening method NEGATI VE NEGATIVE Urine barbiturates detection NEGATIVE N EGATIVE Screening urine tricyclic antidepressants detection NEGATIVE NEGATIVE Urine methadone detection by screening method NEGA TIVE NEGATIVE Urine oxycodone detection NEGATIVE NEGA TIVE Urine propoxyphene detection NEGATIVE N EGATIVE Complete urinalysis with reflex to cultu re - 08/15/19 11:27 Urine color determination YELLOW NRG Urine clarity determination SL CLOUDY N RG Urine pH measurement by test strip 6 5-9 Specific gravity of urine by test strip 1.015 1.016-1.022 Urine protein assay by test strip, semi-quantitative 2+ NEGATIVE Urine glucose detection by automated test strip NE GATIVE NEGATIVE Erythrocytes detection in urine sediment by light micr oscopy 5+ NEGATIVE Urine ketones detection by automated test strip NE GATIVE NEGATIVE Urine nitrite detection by test strip NEGATIVE NEGATIVE Urine total bilirubin detection by test strip NEGA TIVE NEGATIVE Urine urobilinogen measurement by automated test strip (mass/volume) NORMAL NORMAL Urine leukocyte esterase detection by dipstick 3+ NEGATIVE Automated urine sediment erythrocyte cou nt by microscopy (number/high power field) NONE NRG Automated urine sediment leukocyte count by microscopy (number/high power field) [HPF] NRG Bacteria detection in urine sediment by light microsco py LARGE NRG Squamous epithelial cells detection in u rine sediment by light microscopy 5-10 NRG Crystals detection in urine sediment by light microsco py PRESENT NRG Casts detection in urine sediment by light microscopy NONE NRG Mucus detection in urine sediment by light microscopy NEGATIVE NRG Complete urinalysis with reflex to culture YES NRG Renal epithelial cells detection in urin e sediment by light microscopy 0-2 NRG Bacterial urine culture - 08/15/19 11:27 Bacterial urine culture 3 OR MORE NRG COLONY COUNT >100,000/ML NRG FTX;REPORTABLE GRAM POSITIVES, SUGGESTING PROBABLE NRG FREE TEXT ENTRY 2 COLLECTION CONTAMINATION WTH SKI N BILL NRG FREE TEXT ENTRY 3 NO SUSCEPTIBILITY PERFORMED NRG DIFFERENTIAL, MANUAL - 12/01/19 11:28 ABSOLUTE NEUTROPHILS 4340 cells/uL 1500- 7800 ABSOLUTE MONOCYTES 210 cells/uL 200-950 ABSOLUTE EOSINOPHILS 0 cells/uL 15-500 ABSOLUTE BASOPHILS 140 cells/uL 0-200 NEUTROPHILS 62.0 % NRG LYMPHOCYTES 30.0 % NRG MONOCYTES 3.0 % NRG EOSINOPHILS 0 % NRG BASOPHILS 2.0 % NRG ABSOLUTE BAND NEUTROPHILS 140 cells/uL 0 -750 ABSOLUTE METAMYELOCYTES 70 cells/uL ABSOLUTE LYMPHOCYTES 2100 cells/uL 850-3 900 BAND NEUTROPHILS 2.0 % NRG METAMYELOCYTES 1.0 % NRG NOTE NRG INSULIN LEVEL - 12/01/19 11:28 INSULIN 33.3 uIU/mL 2.0-19.6 Complete blood count (CBC) with automate d white blood cell (WBC) differential - 01/05/20 21:57 Blood leukocytes automated count (number/volume) 9.6 10*3/uL 4.3-11.0 Blood erythrocytes automated count (number/volume) 4.69 10*6/uL 4.35-5.85 Venous blood hemoglobin measurement (mass/volume) 13.2 g/dL 11.5-16.0 Blood hematocrit (volume fraction) 39 % 35-52 Automated erythrocyte mean corpuscular volume 83 [ foz_us] 80-99 Automated erythrocyte mean corpuscular h emoglobin (mass per erythrocyte) 28 pg 25-34 Automated erythrocyte mean corpuscular h emoglobin concentration measurement (mass/volume) 34 g/dL 32-36 Automated erythrocyte distribution width ratio 13. 4 % 10.0- 14.5 Automated blood platelet count (count/volume) 307 10*3/uL 130-400 Automated blood platelet mean volume measurement 10.3 [foz_us] 7.4-10.4 Automated blood neutrophils/100 leukocytes 70 % 42-75 Automated blood lymphocytes/100 leukocytes 23 % 12-44 Blood monocytes/100 leukocytes 7 % 0-12 Automated blood eosinophils/100 leukocytes 0 % 0-10 Automated blood basophils/100 leukocytes 0 % 0-10 Blood neutrophils automated count (number/volume) 6.6 10*3 1.8-7.8 Blood lymphocytes automated count (number/volume) 2.2 10*3 1.0-4.0 Blood monocytes automated count (number/volume) 0. 7 10*3 0.0-1.0 Automated eosinophil count 0.0 10*3/uL 0 .0-0.3 Automated blood basophil count (count/volume) 0.0 10*3/uL 0.0-0.1 Serum or plasma choriogonadotropin (preg noel test) detection - 01/05/20 21:57 Serum or plasma choriogonadotropin ( test) de tection NEGATIVE NEGATIVE Comprehensive metabolic panel - 01/05/20 21:57 Serum or plasma sodium measurement (moles/volume) 138 mmol/L 135-145 Serum or plasma potassium measurement (moles/volume) 3.7 mmol/L 3.6-5.0 Serum or plasma chloride measurement (moles/volume) 103 mmol/L 98-107 Carbon dioxide 23 mmol/L 21-32 Serum or plasma anion gap determination (moles/volume) 12 mmol/L 5-14 Serum or plasma urea nitrogen measurement (mass/volume ) 10 mg/dL 7-18 Serum or plasma creatinine measurement (mass/volume) 0.78 mg/dL 0.60-1.30 Serum or plasma urea nitrogen/creatinine mass ratio 13 NRG Serum or plasma creatinine measurement w ith calculation of estimated glomerular filtration rate > NRG Serum or plasma glucose measurement (mass/volume) 133 mg/dL 70-105 Serum or plasma calcium measurement (mass/volume) 9.3 mg/dL 8.5-10.1 Serum or plasma total bilirubin measurement (mass/volu me) 0.2 mg/dL 0.1-1.0 Serum or plasma alkaline phosphatase juan miguel surement (enzymatic activity/volume) 59 U/L 40-136 Serum or plasma aspartate aminotransfera se measurement (enzymatic activity/volume) 12 U/L 5-34 Serum or plasma alanine aminotransferase measurement (enzymatic activity/volume) 14 U/L 0-55 Serum or plasma protein measurement (mass/volume) 7.8 g/dL 6.4-8.2 Serum or plasma albumin measurement (mass/volume) 4.3 g/dL 3.2-4.5 CALCIUM CORRECTED 9.1 mg/dL 8.5-10.1 Encounters ACCT No. Visit Date/Time Discharge Status Pt. Type Provider Facility Loc./Unit Complaint [id number] 02/16/2020 13:40:00 02/16/2020 23:59: 59 CLS Outpatient DAVID CHOI [facility], [place] [id number] 12/01/2019 10:40:00 Document Registration [id number] 03/30/2019 11:20:00 Document Registration [id number] 11/20/2017 08:20:00 Document Registration [id number] 06/14/2014 00:00:00 06/14/2014 23:59: 59 CLS Outpatient [id number] 04/12/2014 08:48:00 04/12/2014 23:59: 59 CLS Outpatient GARCIA PRACHINATE URBINA NOEL N [id number] 04/06/2014 12:40:00 04/06/2014 23:59: 59 CLS Outpatient GEOFF REED APRN [id number] 11/02/2013 10:05:00 11/02/2013 23:59: 59 CLS Outpatient NOEL MEYERS APRN N [id number] 10/26/2013 10:11:00 10/26/2013 23:59: 59 CLS Outpatient SILVER SAVAGE MD [id number] 09/30/2013 10:01:00 09/30/2013 23:59: 59 CLS Outpatient JOSE PRACHINOEL SULLIVAN APRN N [id number] 09/20/2013 13:46:00 09/20/2013 23:59: 59 CLS Outpatient GEOFF REED APRN [id number] 01/05/2020 21:48:00 020 22:34:00 DIS Outpatient CELIA HUGHES APRN Via [facility] ER SEIZURES [id number] 12/22/2019 18:55:00 020 20:29:00 DIS Emergency NELIDA ERIKA SECURITY AND PRIVACY CONSULTANT [facility] ER SEIZURES [id number] 12/17/2019 14:14:00 020 16:52:00 DIS Emergency CELIA HUGHES APRN [facility] ER MIGRAINE;NAUSEA [id number] 11/20/2019 18:35:00 020 19:33:00 DIS Outpatient CELIA HUGHES APRN [facility] ER SEIZURE [id number] 09/01/2019 04:36:00 05:13:00 DIS Emergency RAÚL SHAQ PRICE [facility] ER LEFT ANKLE PAIN [id number] 08/21/2019 19:40:00 20:47:00 DIS Emergency CELIA HUGHES APRN [facility] ER ITCHY THROAT, SORE MOUT H [id number] 08/15/2019 10:36:00 12:44:00 DIS Emergency ERIKA KRAUSE [facility] ER SEIZURES/R LEG LAC [id number] 07/30/2019 08:34:00 23:59:59 CLS Outpatient JIMBOAMANDAMICHELLE [place] GIG TENDER [facility] RAD SEIZURES [id number] 07/27/2019 22:29:00 01:44:00 DIS Emergency RAÚL SHAQ PRICE Chacha colin [facility] ER VOMITTING [id number] 07/26/2019 19:55:00 20:03:00 DIS Emergency CELIA HUGHES APRN [facility] ER SEIZURE [id number] 07/23/2019 20:56:00 22:44:00 DIS Emergency RAÚL SHAQ PRICE [facility] ER SEIZURES [id number] 07/20/2019 18:28:00 19:10:00 DIS Emergency JUAN LUIS HOLLINS, STEF Ortega [facility] ER FOOD ALLERGY [id number] 07/18/2019 23:16:00 00:43:00 DIS Emergency DOC HOLLINS, HAMMAD Mijares [facility] ER RT KNEE PAIN [id number] 07/15/2019 16:33:00 23:59:59 CLS Emergency CELIA HUGHES APRN [facility] ER SEIZURE - R KNEE LAC [id number] 07/08/2019 20:11:00 20:44:00 DIS Emergency CELIA UHGHES APRN [facility] ER SEIZURE X 2/MIGRAINE [id number] 07/03/2019 19:56:00 21:30:00 DIS Emergency CELIA HUGHES APRN [facility] ER SEIZER [id number] 06/28/2019 19:29:00 20:26:00 DIS Emergency ANDREW SUAREZ [facility] ER SEIZURE [id number] 06/24/2019 19:56:00 20:37:00 DIS Emergency CELIA HUGHES APRN [facility] ER THROAT PAIN, TEMP 99.9 [id number] 06/05/2019 16:49:00 18:25:00 DIS Emergency RAÚL DOSHAQ [facility] ER JUST HAD 2 SEIZURES [id number] 05/26/2019 09:37:00 12:59:00 DIS Emergency DANAANDREW BOLAND [facility] ER LEFT EAR/LEFT HIP PAIN [id number] 04/27/2019 23:37:00 01:38:00 DIS Emergency JUAN LUIS HOLLINS, STEF T [facility] ER LEFT SIDE ABD P AIN [id number] 04/06/2019 10:58:00 11:50:00 DIS Emergency CELIA HUGHES APRN [facility] ER SEIZURE [id number] 03/23/2019 20:38:00 00:55:00 DIS Emergency RAÚL SHAQ PRICE [facility] ER SEIZURE [id number] 01/09/2019 16:45:00 17:10:00 DIS Emergency CELIA HUGHES APRN [facility] ER L ANKLE INJ [id number] 10/09/2018 16:31:00 18:16:00 DIS Emergency NELIDA ERIKA SECURITY AND PRIVACY CONSULTANT [facility] ER SEIZURE [id number] 04/03/2018 09:45:00 23:59:59 CLS Preadmit DAVID CHOI APRN [facility] RAD HX OF SEIZURES [id number] 03/29/2018 03:45:00 018 04:53:00 DIS Emergency SHAQ OLSEN DO [facility] ER POSS SEIZURE [id number] 11/14/2017 18:16:00 018 20:55:00 DIS Emergency HAMMAD ROACH MD [facility] ER SEIZURE [id number] 10/18/2017 02:11:00 017 02:56:00 DIS Emergency DOC HOLLINS, HAMMAD Mijares [facility] ER SORE THROAT,SWOLLEN THR OAT-BLOODY [id number] 2017 00:35:00 017 01:47:00 DIS Emergency SHAQ OLSEN DO [facility] ER LOWER BACK PAIN,BLOOD I N URINE [id number] 08/08/2017 20:19:00 017 22:41:00 DIS Emergency BASILIO CANALES [facility] ER STREP THROAT [id number] 03/12/2017 16:06:00 017 17:14:00 DIS Emergency BASILIO CANALES [facility] ER HURTS TO COUGH,THROAT HURTS [id number] 12/21/2016 12:24:00 017 13:23:00 DIS Emergency BASILIO CANALES [facility] ER POSS STREP [id number] 10/25/2016 07:21:00 017 07:50:00 DIS Emergency NEPTALI HOLLINS, KAMI Milton [facility] ER LEFT EYE REDNESS [id number] 07/04/2016 17:10:00 016 17:25:00 DIS Emergency JARAD HOLLINS, JUNO Guardado [facility] ER SORE THROAT [id number] 05/10/2016 20:46:00 016 21:11:00 DIS Emergency CELIA HUGHES GIG TENDER Via [facility] ER L EAR PAIN [id number] 04/30/2016 18:19:00 016 21:20:00 DIS Emergency CELIA HUGHES APRN [facility] ER MIGRAINE PAIN/VOMITING [id number] 02/16/2016 10:47:00 016 13:10:00 DIS Emergency CELIA HUGHES APRN [facility] ER MIGRAINE/NAUSEA [id number] 12/20/2015 20:32:00 016 21:31:00 DIS Emergency STEF MCKNIGHT MD Via [facility] ER CP [id number] 12/16/2015 12:16:00 14:54:00 DIS Emergency BASILIO CANALES [facility] ER DIFF BREATHING/CONGEST ION [id number] 12/04/2015 10:21:00 016 11:02:00 DIS Emergency CELIA HUGHES APRN [facility] ER POSS ABSCESS ON LEFT BR EAST [id number] 11/26/2015 15:28:00 016 23:59:59 CLS Emergency BASILIO CANALES [facility] ER HEADACHES/DIZZINESS [id number] 10/14/2015 16:39:00 015 19:03:00 DIS Emergency SHAQ OLSEN DO [facility] ER L KIDNEY/R SHOULDER DOROTHY N [id number] 09/03/2015 08:41:00 015 11:36:00 DIS Emergency RONDA CHASE MD Via [facility] ER SORE THROAT,SOA ,EAR PAIN [id number] 06/24/2015 10:25:00 015 11:11:00 DIS Emergency CELIA HUGHES APRN [facility] ER RIGHT EAR PAIN/VOMITING [id number] 06/21/2015 14:16:00 015 18:36:00 DIS Emergency ANTONIA BARNES DO Via [facility] ER LEFT EAR PAIN/BLEEDING [id number] 05/16/2015 19:22:00 21:53:00 DIS Emergency SHAQ OLSEN DO [facility] ER HEADACHE [id number] 03/24/2015 09:06:00 11:07:00 DIS Emergency HUGHESCELIA APRN [facility] ER SORE THROAT HEADACHE [id number] 09/29/2014 22:40:00 23:47:00 DIS Emergency BRENDAN HOLLINS, DELISA A [facility] ER VOMITING;HEADACHE [id number] 07/24/2014 11:13:00 12:34:00 DIS Emergency BASILIO CANALES [facility] ER SORE THROAT [id number] 04/04/2014 10:03:00 12:06:00 DIS Emergency RAÚL SHAQ PRICE Chacha a [facility] ER MIGRAINE/VOMITING [id number] 02/14/2014 10:03:00 11:47:00 DIS Emergency BRENDAN HOLLINS, DELISA A [facility] ER MIGRAINE [id number] 02/12/2014 14:10:00 15:08:00 DIS Emergency BRENDAN HOLLINS, DELISA A [facility] ER MIGRAINE [id number] 02/01/2014 08:50:00 10:12:00 DIS Emergency JUAN LUIS HOLLINS, STEF Ortega [facility] ER MIGRAINE [id number] 11/04/2013 17:16:00 21:14:00 DIS Emergency BASILIO CANALES [facility] ER CHEST PAIN,SOA [id number] 05/26/2018 11:50:00 Document Registration [id number] 03/24/2015 09:06:00 Document Registration [id number] 03/24/2015 09:06:00 Document Registration [id number] 07/11/2012 06:31:00 Document Registration
== END 2020-02-21 15:16 | disposition home or self-care (01) ==
LOC: EDUNIT# 13:43 → ER 13:44
DX: G43.909 Migraine, unspecified, not intractable, without status migrainosus (principal); G40.909 Epilepsy, unspecified, not intractable, without status epilepticus; E78.00 Pure hypercholesterolemia, unspecified; I10 Essential (primary) hypertension; F41.9 Anxiety disorder, unspecified; F32.9 Major depressive disorder, single episode, unspecified; Z90.5 Acquired absence of kidney; Z88.0 Allergy status to penicillin; Z88.1 Allergy status to other antibiotic agents; Z88.2 Allergy status to sulfonamides; Z87.891 Personal history of nicotine dependence
CPT/HCPCS: 36415; 70450; 80053; 81000; 84703; 85025; 87088

== ENCOUNTER 2020-03-09 23:40 | Emergency (ER) | payer SELFPAY ==
[~2020-03-09] VITALS: Ht 165 cm; Wt 91.0 kg
--- OUTSIDE RECORDS SUMMARY | 2020-03-09 23:46 | XMS REPORT | Clinical Summary ---
Author Author [facility] Organization [facility] Address Unknown Phone Unavailable Care Team Providers Care Spray Gun Striper Name Role Phone Brigid Bland NP PCP Source Comments Some departments are not documenting in the electronic medical record. If you d o not see the information that you expected, contact Release of Information in [facility] Tame Information Management department at [phone] for further assistan ce in locating additional records.[facility] Allergies Comments Active Allergy Reactions Severity Noted [...] to 100 mg (1 tab) twice daily. 02/25/2020 Discontinued (Reorder) lacosamide (VIMPAT) 100 Take 50 mg 60 [...] Care Team Description Date Type Specialty Jong Mckeon APRN-NP Intractable epilepsy without status epil epticus, unspecified epilepsy type (HCC) (Primary Dx) 03/07/2020 Office Visit Neurology Telehealth Jong Mckeon APRN-NP 02/25/2020 Refill Neurology Jong Mckeon APRN-NP Follow-up Phone Call 02/23/2020 Telephone Neurology Jong Mckeon APRN-NP Intractable epilepsy without status epil epticus, unspecified [...] present (HCC) 01/13/2020 Office Visit Neurology Resident, Sumit Epilepsy Pre-Visit Planning 01/12/2020 Telephone Neurology [place] Tejada RN Records Request ([place] [facility] :) 01/05/2020 Telephone Neurology [...] filefrom Last 3 Months Advance Directives Patient Glost Tile Shader Explanation Type Date Recorded Advance Directive/DPOA
--- OUTSIDE RECORDS SUMMARY | 2020-03-09 23:47 | XMS REPORT | Encounter Summary ---
Author Author [facility] Organization [facility] Address Unknown Phone Unavailable Care Team Providers Care City Solicitor Name Role Phone BaldoBrigid HEIDY PCP Reason for Visit * Reason Comments Follow Up Encounter Details Care Team Description Date Type Department Jong Mckeon APRN-NP [address] [place] [address] Intractable epilepsy without status epil epticus, unspecified epilepsy type (HCC) (Primary Dx) 03/07/2020 [facility] [address] [place] [address] [address] [place], [place] [id number] Social History Date Tobacco Use Types Packs/Day [...] Progress Notes * Jong Mckeon APRN-NP - 03/07/2020 2:15 PM CDT disregard documented in this encounter Plan of Treatment Order Schedule Name Type Priority Associated Diag noses Ordered: 03/07/2020 ERRONEOUS IN Charge Routine Intractable epi lepsy ENCOUNTER-DISREGARD without status epilepticus, unspecified epilepsy type (HCC) documented as of this encounter Visit Diagnoses Diagnosis Intractable epilepsy without status epi lepticus, unspecified epilepsy type (HCC) documented in this encounter
--- OUTSIDE RECORDS SUMMARY | 2020-03-09 23:47 | XMS REPORT | Encounter Summary ---
Author Author [facility] Organization [facility] Address Unknown Phone Unavailable Care Team Providers Care Linter Drier Operator Name Role Phone Brigid Bland NP PCP Reason for Referral * Consult, Test & Treat (Routine) Referred By Contact Referred To Contact Status Reason Specialty Diagnoses / Procedures Sheyla Marquez MD [address] [address] [facility] [address] [address] New Request Specialty Services Neurology Diagnoses Required Intractable epilepsy without status epilepticus, unspecified epilepsy type (HCC) Sleep disturbance * Consult, Test & Treat (Routine) Referred By Contact Referred To Contact Status Reason Specialty Diagnoses / Procedures Sheyla Marquez MD [address] [address] [facility] Neurology [address] [place] [phone] Closed Specialty Services Neurology Diagnoses Required Intractable [...] / Procedures Brigid Bland NP [address] [place] [address] Incomplete Neurology Encounter Details Care Team Description Date Type Department Sheyla Marquez MD [address] [facility] [address] [place] [address] Cyndy Liu MD [address] [place] [address] Intractable epilepsy without status epil epticus, unspecified epilepsy type (HCC) (Primary Dx); Migraine without status migrainosus, not intractable, unspecified migraine type; Medication overuse headache; Sleep disturbance; Class 3 severe obesity with body mass index (BMI) of 45.0 to 49.9 in adult, unspecified obesity type, unspecified whether serious comorbidity present (HCC) 01/13/2020 Office Visit [facility] [address] [facility] [address] [place] [address] Social History Date Tobacco Use [...] to treat them and their agreement to [facility] policy and NPP via this telehealth visit [...] 4. Medication-overuse headache 5. Obstructive sleep apnea. (Newberry sleepiness scale 16 with reports of waking up gasping for breath, poor sleep, snoring, and morbid obesity) 6. Obesity. BMI 49 7. H/o depression and anxiety Reccomendations: 1. 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 She has never had vEEG before Most of the history obtained from OSH records (scanned in [facility]) and patient hersel stephen Tati states that her seizures started approximately 1 to 1 years of age. S he used to see neurology in [place] which is where she is originally from [...] ibuprofen without much relief. When seen through [facility] in 07/2019, she was started on [...] wakes up gasping for breath, + snore Newberry Sleepiness scale was 16 today Headaches: Onset: [...]
--- OUTSIDE RECORDS SUMMARY | 2020-03-09 23:47 | XMS REPORT | Encounter Summary ---
Author Author [facility] Organization [facility] Address Unknown Phone Unavailable Care Team Providers Care Direct Chill Caster Name Role Phone Brigid Bland NP PCP Reason for Visit * Reason Comments Medication Refill Encounter Details Care Team Description Date Type Department Jong Mckeon, PUMP HOUSE OPERATOR-WAREHOUSE DELIVERY DRIVER [address] [place] [address] 02/25/2020 Refill [facility] [id number] [place] [address] Social History Date Tobacco Use [...]
--- OUTSIDE RECORDS SUMMARY | 2020-03-09 23:47 | XMS REPORT | Encounter Summary ---
Author Author [facility] Organization [facility] Address Unknown Phone Unavailable Care Team Providers Care Change Of Address Clerk Name Role Phone Brigid Bland NP PCP [...]
--- OUTSIDE RECORDS SUMMARY | 2020-03-09 23:47 | XMS REPORT | Encounter Summary ---
Author Author [facility] Organization [facility] Address Unknown Phone Unavailable Care Team Providers Care Fish Agent Name Role Phone BaldoBrigid HEIDY PCP Reason for Visit * Reason Comments Records Request [place] [facility] : Encounter Details Care Team Description Date Type Department [place] Tejada, ALEXEI Records Request ([place] [facility] :) 01/05/[address] [address] Social History Date Tobacco Use Types Packs/Day [...] Lina William 1995 MEDICAL RECORDS REQUEST - [place] [facility] : Request for the following medical records for purpose of continuity of care: Requested MRI head images to the cloud from 07/30/19 Thank you Grace Tejada RN [facility] documented in this encounter Plan of Treatment Not on filedocumented as of this encounter Visit Diagnoses Not on filedocumented in this encounter
--- OUTSIDE RECORDS SUMMARY | 2020-03-09 23:47 | XMS REPORT | Encounter Summary ---
Author Author [facility] Organization [facility] Address Unknown Phone Unavailable Care Team Providers Care Gambling Broker Name Role Phone Brigid Bland CERTIFIED SCRUB TECH PCP Reason for Visit * Reason Comments Pre-Visit Planning Encounter Details Care Team Description Date Type Department Resident, Lalo Epilepsy Pre-Visit Planning 01/12/2020 Telephone [facility] [id number] [place] [address] Social History Date Tobacco Use Types Packs/Day [...]
--- OUTSIDE RECORDS SUMMARY | 2020-03-09 23:47 | XMS REPORT | Encounter Summary ---
Author Author [facility] Organization [facility] Address Unknown Phone Unavailable Care Team Providers Care Golf Cart Assembler Name Role Phone Brigid Bland NP PCP Reason for Visit * Reason Comments Follow-up Phone Call Encounter Details Care Team Description Date Type Department Jong Mckeon APRN-LOG DATA TECHNICIAN [address] [place] [address] Follow-up Phone Call 02/23/2020 Telephone The [address] [address] Social History Date Tobacco Use Types [...] / COVID-19? documented as of this encounter Miscellaneous Notes * Telephone Encounter - Valencia Nettles RN - 02/23/2020 3:41 PM CDT Called patient to follow up on my chart message. Patient reports seizure yesterd ay. Started with a migraine, patient states it was 15 minutes before she came to . She reports that the L side of her face went numb and this is the first time t his has happened during a seizure. Otherwise, event was typical per pt. Pt went to local ED for evaluation, will request records. She reports compliance with Keppra 1000 mg TID, no missed doses. She has not bee n sleep deprived or sick recently.She has not started vimpat as recommended. Req uesting that this be send to alternate pharmacy- [facility] in [place], [place]. Records requested from [place] [facility]. documented in this encounter Plan of Treatment Not on filedocumented as of this encounter Visit Diagnoses Not on filedocumented in this encounter
--- OUTSIDE RECORDS SUMMARY | 2020-03-09 23:47 | XMS REPORT | Encounter Summary ---
Author Author [facility] Organization [facility] Address Unknown Phone Unavailable Care Team Providers Care Turning Machine Operator Name Role Phone Brigid MOODY PCP Reason for Visit * Reason Comments Follow Up Seizure Encounter Details Care Team Description Date Type Department Jong Mckeon APRN-NP [address] [place] [address] Intractable epilepsy without status epil epticus, unspecified epilepsy type (HCC) (Primary Dx) 02/15/2020 Office Visit [facility] [address] [place] [address] Social History Date Tobacco Use Types [...] was performed with the originating site at [facility] and the distant site at [facility]'s offsite location. ? Obtained patient's verbal [...] 4. Medication-overuse headache 5. Obstructive sleep apnea. (Winfield sleepiness scale 16 with reports of waking up gasping for breath, poor sleep, snoring, and morbid obesity) 6. Obesity. BMI 49 7. H/o depression and anxiety Reccomendations: 1. Referral: - Sleep study - Advised to set up a f/u appointment with her triage specialist given vi sual disturbance (reports vision blurring [...] care. Electronically signed by MAYRA [place] Epilepsy [facility] Epilepsy [facility] on 02/15/2020 at 1:57 PM. documented in this encounter Plan of Treatment Not on filedocumented as of this encounter Visit Diagnoses Diagnosis Intractable epilepsy without status epi lepticus, unspecified epilepsy type (HCC) documented in this encounter
--- OUTSIDE RECORDS SUMMARY | 2020-03-09 23:47 | XMS REPORT | Encounter Summary ---
Author Author [facility] Organization [facility] Address Unknown Phone Unavailable Care Team Providers Care Broadcast Meteorologist Name Role Phone Brigid Bland NP PCP Reason for Visit * Reason Comments Pre-Visit Planning New patient office visit pl anned for 01/13/20 2:45 Resident Clinic Encounter Details Care Team Description Date Type Department [place] Tejada RN Pre-Visit Planning (New patient office v isit planned for 01/13/20 2:45 Resident Clinic) 01/05/[address] Tele[address] [address] Social History Date Tobacco Use Types Packs/Day [...] what age? Physician Information PCP: Brigid Bland [facility] Referring Physician: Previous Neurologist: Other providers seen: Previous Imaging/Procedures: 07/30/19 MRI brain [place] [facility] : unremarkable 06/05/18 CT Head [place] [facility]: no identified acute intracra nial abnormality Upcoming [...]
--- OUTSIDE RECORDS SUMMARY | 2020-03-09 23:52 | XMS REPORT | Continuity of Care Document ---
Author Organization Unknown Address Unknown Phone Unavailable Allergies Active Description Code Type Severity Reaction Onset Reported/Identified Relationship to Patient Clinical Status Yes Penicillins Drug Allergy N/A N/A 06/27/2012 Yes Sulfa(Sulfonamide Antibiotics) Drug Allergy N/A N/A 06/27/2012 Yes Tegretol Drug Allergy N/A N/A 06/27/2012 Yes Keppra 500 mg tablet Drug Phil rgy N/A N/A 07/06/2012 Yes Penicillins [id number] Drug Aller gy Moderate N/A 04/06/2019 Yes Sulfa (Sulfonamide Antibiotics) [id number] Drug Allergy Moderate N/A 2018 Yes amoxicillin [id number] Drug Aller gy Unknown N/A 04/06/2019 Yes carbamazepine [id number] Pierre g Allergy Unknown N/A 04/06/2019 Yes shellfish derived [id number] Drug Allergy Unknown N/A 07/20/2019 Medications There [...] DERMATITIS AND OTHER ECZEMA UNSPECIFIED CAUSE 09/30/2013 ONEL MEYERS APRN N V58.69 LONG-TERM (CURRENT) USE [...] V67.9 UNSPECIFIED FOLLOW-UP EXAMINATION 09/30/2013 GARCIA CASHERO APPRAISAL ANALYST, NOEL N V58.69 LONG-TERM (CURRENT) USE OF OTHER MEDICATIONS 09/30/2013 GARCIA CASHNATE APPRAISAL ANALYST, NOEL N V67.9 UNSPECIFIED FOLLOW-UP EXAMINATION 09/30/2013 V58.69 LETTY G-TERM (CURRENT) USE OF OTHER MEDICATIONS 09/30/2013 V67.9 UNSP ECIFIED FOLLOW- UP EXAMINATION 10/26/2013 SILVER SAVAGE MD 380.4 IMPACTED CERUMEN 10/26/2013 SILVER SAVAGE MD 465.9 ACUTE UPPER RESPIRATORY INFECTIONS OF UNSPECIFIED SITE 10/26/2013 GARCIA CASHNATE APPRAISAL ANALYST, NOEL N 380.4 IMPACTED CERUMEN 10/26/2013 GARCIA CASHERO APPRAISAL ANALYST, NOEL N 465.9 ACUTE UPPER RESPIRATORY INFECTIONS OF UNSPECIFIED SITE 10/26/2013 SHANKAR REED APRNIA R 380.4 IMPACTED CERUMEN 10/26/2013 SHANKAR REED APRNIA R 465.9 ACUTE UPPER RESPIRATORY INFECTIONS OF UNSPECIFIED SITE 10/26/2013 GARCIA PRACHINOEL SULLIVAN APRN N 380.4 IMPACTED CERUMEN 10/26/2013 GARCIA MISA APPRAISAL ANALYST, NOEL N 465.9 ACUTE UPPER RESPIRATORY INFECTIONS OF UNSPECIFIED SITE 10/26/2013 380.4 IMPA CTED CERUMEN 10/26/2013 465.9 ACUT E UPPER RESPIRATORY INFECTIONS OF UNSPECIFIED SITE 11/01/2013 GARCIA CASHNATE CARLITOS, NOEL N 278.00 OBESITY 11/01/2013 GARCIA MISA CARLITOS, NOEL N 626.0 AMENORRHEA 11/01/2013 SHANKAR REED APRNIA R 278.00 OBESITY 11/01/2013 SHANKAR REED APRNIA R 626.0 AMENORRHEA 11/01/2013 GARCIA CASHNATE APPRAISAL ANALYST, NOEL N 278.00 OBESITY 11/01/2013 GARCIA CASHERO APPRAISAL ANALYST, NOEL N 626.0 AMENORRHEA 11/01/2013 278.00 OBESITY [...] APRNCY N 784.0 HEADACHE 04/06/2014 JOSE BYNUM APPRAISAL ANALYSTMALIA HernandesCY N 787.02 NAUSEA ALONE 04/06/2014 MALIA [...] NAUSEA WITH VOMITING, UNSPECIFIED 12/16/2015 CELIA HUGHES APPRAISAL ANALYST Ot N61 12/20/2015 JUAN LUIS HOLLINS, STEF Ortega Ot E78.0 PURE HYPERCHOLESTEROLEMIA 12/20/2015 JUAN LUIS HOLLINS, STEF Ortega Ot F41.9 ANXIETY DISORDER, UNSPECIFIED 12/20/2015 JUAN LUIS HOLLINS, STEF Ortega Ot I10 ESSENTIAL (PRIMARY) HYPERTENSION 12/20/2015 JUAN LUIS HOLLINS, STEF Ortega Ot R07.89 OTHER CHEST PAIN 12/20/2015 JUAN LUIS HOLLINS, STEF Ortega Ot Z79.899 OTHER CORPORATE TRAFFIC MANAGER (CURRENT) DRUG THERAPY 02/16/2016 CELIA HUGHES APPRAISAL ANALYST Ot N39 .0 URINARY TRACT INFECTION, SITE NOT SPECIF 02/16/2016 CELIA HUGHES APPRAISAL ANALYST Ot R51 HEADACHE 02/19/2016 CELIA HUGHES APPRAISAL ANALYST Ot N39 .0 URINARY TRACT INFECTION, SITE NOT SPECIF 02/19/2016 CELIA HUGHES APPRAISAL ANALYST Ot R51 HEADACHE 04/30/2016 CELIA HUGHES APPRAISAL ANALYST Ot R51 HEADACHE 05/01/2016 CELIA HUGHES APPRAISAL ANALYST Ot R51 HEADACHE 05/10/2016 CELIA HUGHES APPRAISAL ANALYST Ot H66.91 OTITIS MEDIA, UNSPECIFIED, RIGHT EAR 05/10/2016 CELIA HUGHES APPRAISAL ANALYST Ot H92.01 OTALGIA, RIGHT EAR 05/13/2016 CELIA HUGHES APPRAISAL ANALYST Ot H66.91 OTITIS MEDIA, UNSPECIFIED, RIGHT EAR 05/13/2016 CELIA HUGHES APPRAISAL ANALYST Ot H92.01 OTALGIA, RIGHT EAR 07/04/2016 JUNO [...] CANALES Ot J02.9 ACUTE PHARYNGITIS, UNSPECIFIED 12/21/2016 BASLIIO CANALES Ot J10.1 FLU DUE TO OTH IDENT INFLUENZA VIRUS W O 12/21/2016 BASILIO CANALES Ot Z79.899 OTHER CORPORATE TRAFFIC MANAGER (CURRENT) DRUG THERAPY 12/21/2016 BASILIO CANALES Ot Z90.5 ACQUIRED ABSENCE OF KIDNEY 12/23/2016 BASILIO CANALES Ot I 10 ESSENTIAL (PRIMARY) HYPERTENSION 12/23/2016 BASILIO CANALES Ot J02.9 ACUTE PHARYNGITIS, UNSPECIFIED 12/23/2016 BASILIO CANALES Ot J10.1 FLU DUE TO OTH IDENT INFLUENZA VIRUS W O 12/23/2016 BASILIO CANALES Ot Z79.899 OTHER ALF (CURRENT) DRUG THERAPY 12/23/2016 BASILIO CANALES Ot Z90.5 ACQUIRED ABSENCE OF KIDNEY 12/27/2016 BASILIO CANALES Ot I 10 ESSENTIAL (PRIMARY) HYPERTENSION 12/27/2016 BASILIO CANALES Ot J02.9 ACUTE PHARYNGITIS, UNSPECIFIED 12/27/2016 BASILIO CANALES Ot J10.1 FLU DUE TO OTH IDENT INFLUENZA VIRUS W O 12/27/2016 BASILIO CANALES Ot Z79.899 OTHER CORPORATE TRAFFIC MANAGER (CURRENT) DRUG THERAPY 12/27/2016 BASILIO CANALES Ot Z90.5 ACQUIRED ABSENCE OF KIDNEY 03/12/2017 BASILIO CANALES Ot I 10 ESSENTIAL (PRIMARY) HYPERTENSION 03/12/2017 BASILIO CANALES Ot J02.0 STREPTOCOCCAL PHARYNGITIS 03/12/2017 BASILIO CANALES Ot J02.9 ACUTE PHARYNGITIS, UNSPECIFIED 03/12/2017 BASILIO CANALES Ot Z90.5 ACQUIRED ABSENCE OF KIDNEY 03/13/2017 BASILIO CANALES Ot I 10 ESSENTIAL (PRIMARY) HYPERTENSION 03/13/2017 BASILIO CNAALES Ot J02.0 STREPTOCOCCAL PHARYNGITIS 03/13/2017 BASILIO CANALES [...] Ot R10.84 GENERALIZED ABDOMINAL PAIN 2017 RAÚL DO, SHAQ K Ot Z90.5 ACQUIRED [...] Z90.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 03/31/2018 RALÚ DO, SHAQ K Ot E78.00 PURE HYPERCHOLESTEROLEMIA, [...] ABSENCE OF OTHER ORGANS 07/28/2018 Ot G43.909 NM GRAINE, UNSP, NOT INTRACTABLE, WITHOUT 07/28/2018 Ot G93.89 OTH ER SPECIFIED DISORDERS OF BRAIN 07/28/2018 Ot Z86.69 PER JUSTO HISTORY OF DIS OF THE NERVOUS S 07/28/2018 Ot Z87.898 PE RSONAL HISTORY OF OTHER SPECIFIED COND 07/31/2018 Ot G43.909 NM GRAINE, UNSP, NOT INTRACTABLE, WITHOUT 07/31/2018 Ot G93.89 OTH ER SPECIFIED DISORDERS OF BRAIN 07/31/2018 Ot Z86.69 PER JUSTO HISTORY OF DIS OF THE NERVOUS S 07/31/2018 Ot Z87.898 PE RSONAL HISTORY OF OTHER SPECIFIED COND 10/09/2018 NELIDA, ERIKA BRAZER HELPER INDUCTION Ot E78.00 PURE HYPERCHOLESTEROLEMIA, UNSPECIFIED 10/09/2018 NELIDA, ERIKA BRAZER HELPER INDUCTION Ot F32.9 MAJOR DEPRESSIVE DISORDER, SINGLE EPISOD 10/09/2018 NELIDA, ERIKA BRAZER HELPER INDUCTION Ot F41.9 ANXIETY DISORDER, UNSPECIFIED 10/09/2018 NELIDA, ERIKA BRAZER HELPER INDUCTION Ot G40.909 EPILEPSY, UNSP, NOT INTRACTABLE, WITHOUT 10/09/2018 NELIDA, ERIKA BRAZER HELPER INDUCTION Ot G43.909 MIGRAINE, UNSP, NOT INTRACTABLE, WITHOUT 10/09/2018 NELIDA, ERIKA BRAZER HELPER INDUCTION Ot I10 ESSENTIAL (PRIMARY) HYPERTENSION 10/09/2018 NELIDA, ERIKA BRAZER HELPER INDUCTION Ot N39.0 URINARY TRACT INFECTION, SITE NOT SPECIF 10/09/2018 NELIDA, ERIKA BRAZER HELPER INDUCTION Ot R56.9 UNSPECIFIED CONVULSIONS 10/09/2018 NELIDA, ERIKA BRAZER HELPER INDUCTION Ot Z88.0 ALLERGY STATUS TO PENICILLIN 10/09/2018 NELIDA, ERIKA BRAZER HELPER INDUCTION Ot Z88.1 ALLERGY STATUS TO OTHER ANTIBIOTIC AGENT 10/09/2018 NELIDA, ERIKA BRAZER HELPER INDUCTION Ot Z88.2 ALLERGY STATUS TO SULFONAMIDES STATUS 10/09/2018 NELIDA, ERIKA BRAZER HELPER INDUCTION Ot Z88.8 ALLERGY STATUS TO OTH DRUG/MEDS/BIOL SUB 10/09/2018 NELIDA, ERIKA BRAZER HELPER INDUCTION Ot Z90.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 10/14/2018 NELIDA, ERIKA BRAZER HELPER INDUCTION Ot E78.00 PURE HYPERCHOLESTEROLEMIA, UNSPECIFIED 10/14/2018 NELIDA, ERIKA BRAZER HELPER INDUCTION Ot F32.9 MAJOR DEPRESSIVE DISORDER, SINGLE EPISOD 10/14/2018 NELIDA, ERIKA BRAZER HELPER INDUCTION Ot F41.9 ANXIETY DISORDER, UNSPECIFIED 10/14/2018 NELIDA, ERIKA BRAZER HELPER INDUCTION Ot G40.909 EPILEPSY, UNSP, NOT INTRACTABLE, WITHOUT 10/14/2018 NELIDA, ERIKA BRAZER HELPER INDUCTION Ot G43.909 MIGRAINE, UNSP, NOT INTRACTABLE, WITHOUT 10/14/2018 NELIDA, ERIKA BRAZER HELPER INDUCTION Ot I10 ESSENTIAL (PRIMARY) HYPERTENSION 10/14/2018 NELIDA, ERIKA BRAZER HELPER INDUCTION Ot N39.0 URINARY TRACT INFECTION, SITE NOT SPECIF 10/14/2018 NELIDA, ERIKA BRAZER HELPER INDUCTION Ot R56.9 UNSPECIFIED CONVULSIONS 10/14/2018 NELIDA, ERIKA BRAZER HELPER INDUCTION Ot Z88.0 ALLERGY STATUS TO PENICILLIN 10/14/2018 NELIDA, ERIKA BRAZER HELPER INDUCTION Ot Z88.1 ALLERGY STATUS TO OTHER ANTIBIOTIC AGENT 10/14/2018 NELIDA, ERIKA BRAZER HELPER INDUCTION Ot Z88.2 ALLERGY STATUS TO SULFONAMIDES STATUS 10/14/2018 NELIDA, ERIKA BRAZER HELPER INDUCTION Ot Z88.8 ALLERGY STATUS TO OTH DRUG/MEDS/BIOL SUB 10/14/2018 NELIDA, ERIKA BRAZER HELPER INDUCTION Ot Z90.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 10/16/2018 NELIDA, ERIKA BRAZER HELPER INDUCTION Ot E78.00 PURE HYPERCHOLESTEROLEMIA, UNSPECIFIED 10/16/2018 NELIDA, ERIKA BRAZER HELPER INDUCTION Ot F32.9 MAJOR DEPRESSIVE DISORDER, SINGLE EPISOD 10/16/2018 NELIDA, ERIKA BRAZER HELPER INDUCTION Ot F41.9 ANXIETY DISORDER, UNSPECIFIED 10/16/2018 NELIDA, ERIKA BRAZER HELPER INDUCTION Ot G40.909 EPILEPSY, UNSP, NOT INTRACTABLE, WITHOUT 10/16/2018 NELIDA, ERIKA BRAZER HELPER INDUCTION Ot G43.909 MIGRAINE, UNSP, NOT INTRACTABLE, WITHOUT 10/16/2018 NELIDA, ERIKA BRAZER HELPER INDUCTION Ot I10 ESSENTIAL (PRIMARY) HYPERTENSION 10/16/2018 NELIDA, ERIKA BRAZER HELPER INDUCTION Ot N39.0 URINARY TRACT INFECTION, SITE NOT [...] ABSENCE OF OTHER ORGANS 12/23/2018 Ot G43.909 NM GRAINE, UNSP, NOT INTRACTABLE, WITHOUT 12/23/2018 Ot [...] TO OTH DRUG/MEDS/BIOL SUB 01/09/2019 CELIA HUGHES APPRAISAL ANALYST Ot Z90 .5 ACQUIRED ABSENCE OF KIDNEY 01/09/2019 CELIA HUGHES APPRAISAL ANALYST Ot Z90.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 03/24/2019 RAÚL DO, SHAQ K Ot E78.00 PURE [...] TO OTH DRUG/MEDS/BIOL SUB 04/12/2019 CELIA HUGHES APPRAISAL ANALYST Ot Z90 .6 ACQUIRED ABSENCE OF OTHER PARTS OF URINA 04/12/2019 CELIA HUGHES APPRAISAL ANALYST Ot Z90.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 04/12/2019 CELIA HUGHES APPRAISAL ANALYST Ot Z98.890 OTHER SPECIFIED POSTPROCEDURAL STATES 04/28/2019 [...] Z90.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 06/08/2019 RAÚL SHAQ PRICE Ot E78.00 PURE HYPERCHOLESTEROLEMIA, UNSPECIFIED 06/08/2019 RAÚL PADMINI PRICEA K Ot F32.9 MAJOR DEPRESSIVE DISORDER, SINGLE EPISOD 06/08/2019 RAÚL PADMINI PRICEA Geo Ot F41.9 ANXIETY DISORDER, UNSPECIFIED 06/08/2019 LETCHER PADMINI PRICEA K Ot G40.909 EPILEPSY, UNSP, NOT INTRACTABLE, WITHOUT 06/08/2019 RAÚL SHAQ K Ot G43.909 MIGRAINE, UNSP, NOT INTRACTABLE, WITHOUT 06/08/2019 RAÚL SHAQ K Ot I10 ESSENTIAL (PRIMARY) HYPERTENSION 06/08/2019 LETCHER SHAQ Guardado Ot N39.0 URINARY TRACT INFECTION, SITE NOT SPECIF 06/08/2019 RAÚL SHAQ Guardado Ot R56.9 UNSPECIFIED CONVULSIONS 06/08/2019 RAÚL SHAQ Guardado Ot Z86.012 PERSONAL HISTORY OF BENIGN CARCINOID JETT 06/08/2019 RAÚL SAHQ Guardado Ot Z86.018 PERSONAL HISTORY OF OTHER [...] .9 MAJOR DEPRESSIVE DISORDER, SINGLE EPISOD 07/12/2019 CELIA HUGHES APRN Ot F41 .9 ANXIETY DISORDER, UNSPECIFIED 07/12/2019 CELIA HUGHES APRN Ot G40.909 EPILEPSY, UNSP, NOT INTRACTABLE, WITHOUT 07/12/2019 CELIA UHGHES APRN Ot I10 ESSENTIAL (PRIMARY) HYPERTENSION 07/12/2019 [...] Ot F41.9 ANXIETY DISORDER, UNSPECIFIED 07/20/2019 STEF MCKNIGHT MD Ot G40.909 EPILEPSY, UNSP, [...] ESSENTIAL (PRIMARY) HYPERTENSION 07/22/2019 JUAN LUIS HOLLINS, TSEF Ortega Ot L29.9 PRURITUS, UNSPECIFIED 07/22/2019 STEF [...] APRN Ot E78.00 PURE HYPERCHOLESTEROLEMIA, UNSPECIFIED 07/26/2019 CELIA HUGHES APPRAISAL ANALYST Ot F32 .9 MAJOR DEPRESSIVE DISORDER, SINGLE [...] Z90.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 07/30/2019 CELIA HUGHES APRN Ot E78.00 PURE HYPERCHOLESTEROLEMIA, [...] R56 .9 UNSPECIFIED CONVULSIONS 07/30/2019 CELIA HUGHES APPRAISAL ANALYST Ot Z88 .0 ALLERGY STATUS TO PENICILLIN [...] R56 .9 UNSPECIFIED CONVULSIONS 08/15/2019 NELIDA, ERIKA BRAZER HELPER INDUCTION Ot E78.00 PURE HYPERCHOLESTEROLEMIA, UNSPECIFIED 08/15/2019 NELIDA, ERIKA BRAZER HELPER INDUCTION Ot F32.9 MAJOR DEPRESSIVE DISORDER, SINGLE EPISOD 08/15/2019 NELIDA, ERIKA BRAZER HELPER INDUCTION Ot F41.9 ANXIETY DISORDER, UNSPECIFIED 08/15/2019 NELIDA, ERIKA BRAZER HELPER INDUCTION Ot G40.89 OTHER SEIZURES 08/15/2019 NELIDA, ERIKA BRAZER HELPER INDUCTION Ot G40.909 EPILEPSY, UNSP, NOT INTRACTABLE, WITHOUT 08/15/2019 NELIDA, ERIKA BRAZER HELPER INDUCTION Ot G43.909 MIGRAINE, UNSP, NOT INTRACTABLE, WITHOUT 08/15/2019 NELIDA, ERIKA BRAZER HELPER INDUCTION Ot I10 ESSENTIAL (PRIMARY) HYPERTENSION 08/15/2019 NELIDA, ERIKA BRAZER HELPER INDUCTION Ot N39.0 URINARY TRACT INFECTION, SITE NOT SPECIF 08/15/2019 NELIDA, ERIKA BRAZER HELPER INDUCTION Ot R56.9 UNSPECIFIED CONVULSIONS 08/15/2019 NELIDA, ERIKA BRAZER HELPER INDUCTION Ot Z88.0 ALLERGY STATUS TO PENICILLIN 08/15/2019 NELIDA, ERIKA BRAZER HELPER INDUCTION Ot Z88.2 ALLERGY STATUS TO SULFONAMIDES STATUS 08/15/2019 NELIDA, ERIKA BRAZER HELPER INDUCTION Ot Z88.8 ALLERGY STATUS TO OTH DRUG/MEDS/BIOL SUB 08/15/2019 NELIDA, ERIKA BRAZER HELPER INDUCTION Ot Z90.5 ACQUIRED ABSENCE OF KIDNEY 08/15/2019 NELIDA, ERIKA BRAZER HELPER INDUCTION Ot Z90.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 08/19/2019 NELIDA, ERIKA BRAZER HELPER INDUCTION Ot E78.00 PURE HYPERCHOLESTEROLEMIA, UNSPECIFIED 08/19/2019 NELIDA, ERIKA BRAZER HELPER INDUCTION Ot F32.9 MAJOR DEPRESSIVE DISORDER, SINGLE EPISOD 08/19/2019 NELIDA, ERIKA BRAZER HELPER INDUCTION Ot F41.9 ANXIETY DISORDER, UNSPECIFIED 08/19/2019 NELIDA, ERIKA BRAZER HELPER INDUCTION Ot G40.89 OTHER SEIZURES 08/19/2019 NELIDA, ERIKA BRAZER HELPER INDUCTION Ot G40.909 EPILEPSY, UNSP, NOT INTRACTABLE, WITHOUT 08/19/2019 NELIDA, ERIKA BRAZER HELPER INDUCTION Ot G43.909 MIGRAINE, UNSP, NOT INTRACTABLE, WITHOUT 08/19/2019 NELIDA, ERIKA BRAZER HELPER INDUCTION Ot I10 ESSENTIAL (PRIMARY) HYPERTENSION 08/19/2019 NELIDA, ERIKA BRAZER HELPER INDUCTION Ot N39.0 URINARY TRACT INFECTION, SITE NOT SPECIF 08/19/2019 NELIDA, ERIKA BRAZER HELPER INDUCTION Ot R56.9 UNSPECIFIED CONVULSIONS 08/19/2019 NELIDA, ERIKA BRAZER HELPER INDUCTION Ot Z88.0 ALLERGY STATUS TO PENICILLIN 08/19/2019 NELIDA ERIKA BRAZER HELPER INDUCTION Ot Z88.2 ALLERGY STATUS TO SULFONAMIDES STATUS 08/19/2019 NELIDA ERIKA BRAZER HELPER INDUCTION Ot Z88.8 ALLERGY STATUS TO OT DRUG/MEDS/BIOL SUB 08/19/2019 NELIDA, ERIKA BRAZER HELPER INDUCTION Ot Z90.5 ACQUIRED ABSENCE OF KIDNEY 08/19/2019 NELIDA, ERIKA BRAZER HELPER INDUCTION Ot Z90.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 [...] ABSENCE OF OTHER ORGANS 08/30/2019 DAVID CHOI APPRAISAL ANALYST Ot R56 .9 UNSPECIFIED CONVULSIONS 08/31/2019 JUAN [...] ABSENCE OF OTHER ORGANS 08/31/2019 NELIDA, ERIKA BRAZER HELPER INDUCTION Ot E78.00 PURE HYPERCHOLESTEROLEMIA, UNSPECIFIED 08/31/2019 NELIDA, ERIKA BRAZER HELPER INDUCTION Ot F32.9 MAJOR DEPRESSIVE DISORDER, SINGLE EPISOD 08/31/2019 NELIDA, ERIKA BRAZER HELPER INDUCTION Ot F41.9 ANXIETY DISORDER, UNSPECIFIED 08/31/2019 NELIDA ERIKA BRAZER HELPER INDUCTION Ot G40.89 OTHER SEIZURES 08/31/2019 NELIDA, ERIKA BRAZER HELPER INDUCTION Ot G40.909 EPILEPSY, UNSP, NOT INTRACTABLE, WITHOUT 08/31/2019 NELIDA, ERIKA BRAZER HELPER INDUCTION Ot G43.909 MIGRAINE, UNSP, NOT INTRACTABLE, WITHOUT 08/31/2019 NELIDA, ERIKA BRAZER HELPER INDUCTION Ot I10 ESSENTIAL (PRIMARY) HYPERTENSION 08/31/2019 NELIDA, ERIKA BRAZER HELPER INDUCTION Ot N39.0 URINARY TRACT INFECTION, SITE NOT SPECIF 08/31/2019 NELIDA, ERIKA BRAZER HELPER INDUCTION Ot R56.9 UNSPECIFIED CONVULSIONS 08/31/2019 NELIDA, ERIKA BRAZER HELPER INDUCTION Ot Z88.0 ALLERGY STATUS TO PENICILLIN 08/31/2019 NELIDA, ERIKA BRAZER HELPER INDUCTION Ot Z88.2 ALLERGY STATUS TO SULFONAMIDES STATUS 08/31/2019 NELIDA, ERIKA BRAZER HELPER INDUCTION Ot Z88.8 ALLERGY STATUS TO OTH DRUG/MEDS/BIOL SUB 08/31/2019 NELIDA, ERIKA BRAZER HELPER INDUCTION Ot Z90.5 ACQUIRED ABSENCE OF KIDNEY 08/31/2019 NELIDA, ERIKA BRAZER HELPER INDUCTION Ot Z90.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 [...] Z88.2 ALLERGY STATUS TO SULFONAMIDES STATUS 09/01/2019 RÚAL SHAQ PRICE Ot Z88.8 ALLERGY STATUS TO OTH DRUG/MEDS/BIOL SUB 09/01/2019 SHAQ OLSEN DO Ot Z90.5 ACQUIRED ABSENCE OF KIDNEY 09/01/2019 SHAQ OLSEN DO Ot Z90.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 09/01/2019 DAVID CHOI D APPRAISAL ANALYST Ot R56 .9 UNSPECIFIED CONVULSIONS 09/01/2019 DAVID CHOI D APPRAISAL ANALYST Ot R56 .9 UNSPECIFIED CONVULSIONS 09/03/2019 SHAQ [...] TO OTH DRUG/MEDS/BIOL SUB 11/22/2019 DAVID CHOI APPRAISAL ANALYST Ot R56 .9 UNSPECIFIED CONVULSIONS 11/22/2019 DAVID CHOI APPRAISAL ANALYST Ot R56 .9 UNSPECIFIED CONVULSIONS 12/17/2019 CELIA HUGHES APPRAISAL ANALYST Ot G40.909 EPILEPSY, UNSP, NOT INTRACTABLE, WITHOUT 12/17/2019 SAUL, CELIA Mijares APPRAISAL ANALYST Ot R51 HEADACHE 12/17/2019 CELIA HUGHES APPRAISAL ANALYST Ot Z86.69 PERSONAL HISTORY OF DIS OF THE NERVOUS S 12/17/2019 CELIA HUGHES APPRAISAL ANALYST Ot Z88 .0 ALLERGY STATUS TO PENICILLIN 12/17/2019 CELIA HUGHES APPRAISAL ANALYST Ot Z88 .2 ALLERGY STATUS TO SULFONAMIDES STATUS 12/17/2019 CELIA HUGHES APPRAISAL ANALYST Ot Z88 .8 ALLERGY STATUS TO OTH DRUG/MEDS/BIOL SUB 12/22/2019 NELIDA, ERIKA BRAZER HELPER INDUCTION Ot G40.909 EPILEPSY, UNSP, NOT INTRACTABLE, WITHOUT 12/22/2019 NELIDA, ERIKA BRAZER HELPER INDUCTION Ot G43.909 MIGRAINE, UNSP, NOT INTRACTABLE, WITHOUT 12/22/2019 NELIDA, ERIKA BRAZER HELPER INDUCTION Ot M54.5 LOW BACK PAIN 12/22/2019 NELIDA, ERIKA BRAZER HELPER INDUCTION Ot R56.9 UNSPECIFIED CONVULSIONS 12/22/2019 NELIDA, ERIKA BRAZER HELPER INDUCTION Ot Z88.0 ALLERGY STATUS TO PENICILLIN 12/22/2019 NELIDA, ERIKA BRAZER HELPER INDUCTION Ot Z88.2 ALLERGY STATUS TO SULFONAMIDES STATUS 12/22/2019 NELIDA, ERIKA BRAZER HELPER INDUCTION Ot Z88.8 ALLERGY STATUS TO OTH DRUG/MEDS/BIOL SUB 12/27/2019 NELIDA, ERIKA BRAZER HELPER INDUCTION Ot G40.909 EPILEPSY, UNSP, NOT INTRACTABLE, WITHOUT 12/27/2019 NELIDA, ERIKA BRAZER HELPER INDUCTION Ot G43.909 MIGRAINE, UNSP, NOT INTRACTABLE, WITHOUT 12/27/2019 NELIDA, ERIKA BRAZER HELPER INDUCTION Ot M54.5 LOW BACK PAIN 12/27/2019 NELIDA, ERIKA BRAZER HELPER INDUCTION Ot R56.9 UNSPECIFIED CONVULSIONS 12/27/2019 NELIDA, ERIKA BRAZER HELPER INDUCTION Ot Z88.0 ALLERGY STATUS TO PENICILLIN 12/27/2019 NELIDA, ERIKA BRAZER HELPER INDUCTION Ot Z88.2 ALLERGY STATUS TO SULFONAMIDES STATUS 12/27/2019 NELIDA, ERIKA BRAZER HELPER INDUCTION Ot Z88.8 ALLERGY STATUS TO OTH DRUG/MEDS/BIOL [...] INTRACTABLE, WITHOUT 01/13/2020 CELIA HUGHES APRN Ot R40.2142 COMA SCALE, [...] STATUS TO SULFONAMIDES STATUS 01/13/2020 CELIA HUGHES APPRAISAL ANALYST Ot Z88 .8 ALLERGY STATUS TO OTH DRUG/MEDS/BIOL SUB 01/13/2020 CELIA HUGHES APPRAISAL ANALYST Ot G40.909 EPILEPSY, UNSP, NOT INTRACTABLE, WITHOUT 01/13/2020 CELIA HUGHES APRN Ot R56 .9 UNSPECIFIED CONVULSIONS 01/13/2020 CELIA HUGHES APPRAISAL ANALYST Ot Z88 .0 ALLERGY STATUS TO PENICILLIN 01/13/2020 CELIA HUGHES APPRAISAL ANALYST Ot Z88 .2 ALLERGY STATUS TO SULFONAMIDES STATUS 01/13/2020 CELIA HUGHES APPRAISAL ANALYST Ot Z88 .8 ALLERGY STATUS TO OTH DRUG/MEDS/BIOL SUB 02/21/2020 BERNOT ANDREW Ot E78.00 PURE HYPERCHOLESTEROLEMIA, UNSPECIFIED 02/21/2020 ERICK ANDREW Ot F32.9 MAJOR DEPRESSIVE DISORDER, SINGLE EPISOD 02/21/2020 ERICK ANRDEW Ot F41.9 ANXIETY DISORDER, UNSPECIFIED 02/21/2020 ERICK ANDREW Ot G40.909 EPILEPSY, UNSP, NOT INTRACTABLE, WITHOUT 02/21/2020 BERNOT ANDREW Ot G43.909 MIGRAINE, UNSP, NOT INTRACTABLE, WITHOUT 02/21/2020 ERICK ANDREW Ot I10 ESSENTIAL (PRIMARY) HYPERTENSION 02/21/2020 ERICK ANDREW Ot Z87.891 PERSONAL HISTORY OF NICOTINE DEPENDENCE 02/21/2020 ERICK ANDREW Ot Z88.0 ALLERGY STATUS TO PENICILLIN 02/21/2020 ERICK ANDREW Ot Z88.1 ALLERGY STATUS TO OTHER ANTIBIOTIC AGENT 02/21/2020 ERICK ANDREW Ot Z88.2 ALLERGY STATUS TO SULFONAMIDES STATUS 02/21/2020 ERICK ANDREW Ot Z90.5 ACQUIRED ABSENCE OF KIDNEY 02/22/2020 BERNOT ANDREW Ot E78.00 PURE HYPERCHOLESTEROLEMIA, UNSPECIFIED 02/22/2020 ERICK ANDREW Ot F32.9 MAJOR DEPRESSIVE DISORDER, SINGLE EPISOD 02/22/2020 BERNOT ANDREW Ot F41.9 ANXIETY DISORDER, UNSPECIFIED 02/22/2020 BERNOT ANDREW Ot G40.909 EPILEPSY, UNSP, NOT INTRACTABLE, WITHOUT 02/22/2020 BERNOT ANDREW Ot G43.909 MIGRAINE, UNSP, NOT INTRACTABLE, WITHOUT 02/22/2020 ANDREW SUAREZ Ot I10 ESSENTIAL (PRIMARY) HYPERTENSION 02/22/2020 ANDREW SUAREZ Ot Z87.891 PERSONAL HISTORY OF NICOTINE DEPENDENCE 02/22/2020 ANDREW SUAREZ Ot Z88.0 ALLERGY STATUS TO PENICILLIN 02/22/2020 ANDREW SUAREZ Ot Z88.1 ALLERGY STATUS TO OTHER ANTIBIOTIC AGENT 02/22/2020 ANDREW SUAREZ Ot Z88.2 ALLERGY STATUS TO SULFONAMIDES STATUS 02/22/2020 ANDREW SUAREZ Ot Z90.5 ACQUIRED ABSENCE OF KIDNEY Procedures Code [place] [address] ROUT INE VENIPUNCTURE 09/30/2013 53150 CMP 09/30/2013 12149 CREA TININE 09/30/2013 25900 BUN 09/30/2013 [id number] GF R CALC (RESULT ONLY) 09/30/2013 77766 CBC 10/01/2013 88362 EAR LAVAGE 10/26/2013 48195 ROUT INE VENIPUNCTURE 11/01/2013 42370 PREG NOEL TEST, URINE (IN- HOUSE) 11/01/2013 51352 A1C (RML) 11/01/2013 68987 PROLACTIN 11/01/2013 10752 TSH 11/01/2013 75041 TEST OSTERONE TOTAL-WOMEN & CHILDREN 11/02/2013 Goyo Cote 04/12/2014 Results Test Result Range Streptococcus pyogenes antigen detection - 12/21/16 12:30 Streptococcus pyogenes antigen detection NEGATIVE NEGATIVE Bacterial throat culture - 12/21/16 12:3 0 Bacterial throat culture [facility] Streptococcus pyogenes antigen detection - 08/08/17 20:55 Streptococcus pyogenes antigen detection NEGATIVE NEGATIVE Bacterial throat culture - 08/08/17 20:5 5 Bacterial throat culture [facility] Complete urinalysis with reflex to cultu [...] culture - 09/18/17 00:45 Bacterial urine culture [id number] NRG COLONY COUNT 10,000/ML - 100,000/ML NRG [...] PERFORMED NRG LEVETIRACETAM, SERUM OR PLASMA - 9 11:38 [...] urinalysis with reflex to cultu re - 06/05/19 17:06 Urine color determination YELLOW NRG Urine [...] in u rine sediment by light microscopy 10 NRG Crystals detection in urine sediment by [...] g/dL 3.2-4.5 CALCIUM CORRECTED 9.1 mg/dL 8.5-10.1 Complete blood count (CBC) with automate d white blood cell (WBC) differential - 02/21/20 14:21 Blood leukocytes automated count (number/volume) 7.3 10*3/uL 4.3-11.0 Blood erythrocytes automated count (number/volume) 4.64 10*6/uL 4.35-5.85 Venous blood hemoglobin measurement (mass/volume) 12.9 g/dL 11.5-16.0 Blood hematocrit (volume fraction) 39 % 35-52 Automated erythrocyte mean corpuscular volume 84 [ foz_us] 80-99 Automated erythrocyte mean corpuscular h emoglobin (mass per erythrocyte) 28 pg 25-34 Automated erythrocyte mean corpuscular h emoglobin concentration measurement (mass/volume) 33 g/dL 32-36 Automated erythrocyte distribution width ratio 13. 3 % 10.0- 14.5 Automated blood platelet count (count/volume) 279 10*3/uL 130-400 Automated blood platelet mean volume measurement 10.0 [foz_us] 7.4-10.4 Automated blood neutrophils/100 leukocytes 68 % 42-75 Automated blood lymphocytes/100 leukocytes 24 % 12-44 Blood monocytes/100 leukocytes 8 % 0-12 Automated blood eosinophils/100 leukocytes 0 % 0-10 Automated blood basophils/100 leukocytes 1 % 0-10 Blood neutrophils automated count (number/volume) 5.0 10*3 1.8-7.8 Blood lymphocytes automated count (number/volume) 1.7 10*3 1.0-4.0 Blood monocytes automated count (number/volume) 0. 6 10*3 0.0-1.0 Automated eosinophil count 0.0 10*3/uL 0 .0-0.3 Automated blood basophil count (count/volume) 0.1 10*3/uL 0.0-0.1 Comprehensive metabolic panel - 02/21/20 14:21 Serum or plasma sodium measurement (moles/volume) 140 mmol/L 135-145 Serum or plasma potassium measurement (moles/volume) 4.1 mmol/L 3.6-5.0 Serum or plasma chloride measurement (moles/volume) 106 mmol/L 98-107 Carbon dioxide 22 mmol/L 21-32 Serum or plasma anion gap determination (moles/volume) 12 mmol/L 5-14 Serum or plasma urea nitrogen measurement (mass/volume ) 11 mg/dL 7-18 Serum or plasma creatinine measurement (mass/volume) 0.75 mg/dL 0.60-1.30 Serum or plasma urea nitrogen/creatinine mass ratio 15 NRG Serum or plasma creatinine measurement w ith calculation of estimated glomerular filtration rate > NRG Serum or plasma glucose measurement (mass/volume) 92 mg/dL 70-105 Serum or plasma calcium measurement (mass/volume) 8.8 mg/dL 8.5-10.1 Serum or plasma total bilirubin measurement (mass/volu me) 0.3 mg/dL 0.1-1.0 Serum or plasma alkaline phosphatase juan miguel surement (enzymatic activity/volume) 62 U/L 40-136 Serum or plasma aspartate aminotransfera se measurement (enzymatic activity/volume) 15 U/L 5-34 Serum or plasma alanine aminotransferase measurement (enzymatic activity/volume) 19 U/L 0-55 Serum or plasma protein measurement (mass/volume) 6.9 g/dL 6.4-8.2 Serum or plasma albumin measurement (mass/volume) 4.1 g/dL 3.2-4.5 CALCIUM CORRECTED 8.7 mg/dL 8.5-10.1 Complete urinalysis with reflex to cultu re - 02/21/20 14:25 Urine color determination YELLOW NRG Urine clarity determination CLEAR NR G Urine pH measurement by test strip 6.0 5-9 Specific gravity of urine by test strip 1.020 1.016-1.022 Urine protein assay by test strip, semi-quantitative NEGATIVE NEGATIVE Urine glucose detection by automated test strip NE GATIVE NEGATIVE Erythrocytes detection in urine sediment by light micr oscopy 1+ NEGATIVE Urine ketones detection by automated test strip NE GATIVE NEGATIVE Urine nitrite detection by test strip NEGATIVE NEGATIVE Urine total bilirubin detection by test strip NEGA TIVE NEGATIVE Urine urobilinogen measurement by automated test strip (mass/volume) 0.2 mg/dL < = 1.0 Urine leukocyte esterase detection by dipstick TRA CE NEGATIVE Automated urine sediment erythrocyte cou nt [...] ligh t microscopy FEW CEDRIC URATES NRG Bacterial urine culture - 02/21/20 14:25 Bacterial urine culture 3 OR MORE NRG COLONY COUNT >100,000/ML NRG SUSCEPTIBILITY GRAM POSITIVES, SUGGESTING PROBABLE NRG MRSA SCREEN COLLECTION CONTAMINATION WITH SKIN SHAYY RA NRG RAPID ID NO SUSCEPTIBILITY PERFORMED N RG Encounters ACCT No. Visit Date/Time Discharge Status Pt. Type Provider Facility Loc./Unit Complaint [id number] 02/16/2020 13:40:00 02/16/2020 23:59: 59 CLS Outpatient DAVID CHOI [facility] [id number] 12/01/2019 10:40:00 Document Registration [id number] 03/30/2019 11:20:00 Document Registration [id number] 11/20/2017 08:20:00 Document Registration [id number] 06/14/2014 00:00:00 06/14/2014 23:59: 59 CLS Outpatient [id number] 04/12/2014 08:48:00 04/12/2014 23:59: 59 CLS Outpatient NOEL MEYERS APRN [id number] 04/06/2014 12:40:00 04/06/2014 23:59: 59 CLS Outpatient GEOFF REED APRN [id number] 11/02/2013 10:05:00 11/02/2013 23:59: 59 CLS Outpatient NOEL MEYERS APRN [id number] 10/26/2013 10:11:00 10/26/2013 23:59: 59 CLS Outpatient SILVER SAVAGE MD [id number] 09/30/2013 10:01:00 09/30/2013 23:59: 59 CLS Outpatient NOEL MEYERS APRN [id number] 09/20/2013 13:46:00 09/20/2013 23:59: 59 CLS Outpatient GEOFF REED APRN [id number] 02/21/2020 13:44:00 020 15:16:00 DIS Emergency BERNANDREW BOLAND [facility] ER LEFT SIDE FACIAL NUMBNE SS;SEIZURE [id number] 01/05/2020 21:48:00 020 22:34:00 DIS Outpatient CELIA HUGHES APRN [facility] ER SEIZURES [id number] 12/22/2019 18:55:00 020 20:29:00 DIS Emergency ERIKA KRAUSE [facility] ER SEIZURES [id number] 12/17/2019 14:14:00 16:52:00 DIS Emergency CELIA HUGHES APRN [facility] ER MIGRAINE;NAUSEA [id number] 11/20/2019 18:35:00 19:33:00 DIS Outpatient CELIA HUGHES APRN [facility] ER SEIZURE [id number] 09/01/2019 04:36:00 05:13:00 DIS Emergency RAÚL SHAQ PRICE [facility] ER LEFT ANKLE PAIN [id number] 08/21/2019 19:40:00 20:47:00 DIS Emergency CELIA HUGHES APRN [facility] ER ITCHY THROAT, SORE MOUT H [id number] 08/15/2019 10:36:00 12:44:00 DIS Emergency ERIKA KRAUSE BRAZER HELPER INDUCTION [facility] ER SEIZURES/R LEG LAC [id number] 07/30/2019 08:34:00 23:59:59 CLS Outpatient DAVID CHOI APRN [facility] RAD SEIZURES [id number] 07/27/2019 22:29:00 01:44:00 DIS Emergency SHAQ OLSEN [facility] ER VOMITTING [id number] 07/26/2019 19:55:00 20:03:00 DIS Emergency CELIA HUGHES APRN [facility] ER SEIZURE [id number] 07/23/2019 20:56:00 22:44:00 DIS Emergency RAÚL SHAQ PRICE [facility] ER SEIZURES [id number] 07/20/2019 18:28:00 19:10:00 DIS Emergency STEF MCKNIGHT MD [facility] ER FOOD ALLERGY [id number] 07/18/2019 23:16:00 00:43:00 DIS Emergency DOC HOLLINS, HAMMAD Mijares [facility] ER RT KNEE PAIN [id number] 07/15/2019 16:33:00 23:59:59 CLS Emergency CELIA HUGHES APRN [facility] ER SEIZURE - R KNEE LAC [id number] 07/08/2019 20:11:00 20:44:00 DIS Emergency CELIA HUGHES APRN [facility] ER SEIZURE X 2/MIGRAINE [id number] 07/03/2019 19:56:00 21:30:00 DIS Emergency CELIA HUGHES APRN [facility] ER SEIZER [id number] 06/28/2019 19:29:00 20:26:00 DIS Emergency ANDREW SUAREZ [facility] ER SEIZURE [id number] 06/24/2019 19:56:00 20:37:00 DIS Emergency CELIA HUGHES APRN [facility] ER THROAT PAIN, TEMP 99.9 [id number] 06/05/2019 16:49:00 18:25:00 DIS Emergency SHAQ OLSEN [facility] ER JUST HAD 2 SEIZURES [id number] 05/26/2019 09:37:00 12:59:00 DIS Emergency SHASHANK SUAREZIS [facility] ER LEFT EAR/LEFT HIP PAIN [id number] 04/27/2019 23:37:00 01:38:00 DIS Emergency JUAN LUIS HOLLINS, STEF Ortega [facility] ER LEFT SIDE ABD P AIN [id number] 04/06/2019 10:58:00 11:50:00 DIS Emergency CELIA HUGHES APRN [facility] ER SEIZURE [id number] 03/23/2019 20:38:00 00:55:00 DIS Emergency SHAQ OLSEN [facility] ER SEIZURE [id number] 01/09/2019 16:45:00 019 17:10:00 DIS Emergency CELIA HUGHES APPRAISAL ANALYST [facility] ER L ANKLE INJ [id number] 10/09/2018 16:31:00 018 18:16:00 DIS Emergency ERIKA KRAUSE [facility] ER SEIZURE [id number] 04/03/2018 09:45:00 018 23:59:59 CLS Preadmit KING DAVID D APPRAISAL ANALYST [facility] RAD HX OF SEIZURES [id number] 03/29/2018 03:45:00 018 04:53:00 DIS Emergency SHAQ OLSEN [facility] ER POSS SEIZURE [id number] 11/14/2017 18:16:00 018 20:55:00 DIS Emergency HAMMAD ROACH MD [facility] ER SEIZURE [id number] 10/18/2017 02:11:00 017 02:56:00 DIS Emergency HAMMAD ROACH MD [facility] ER SORE THROAT,SWOLLEN THR OAT-BLOODY [id number] 2017 00:35:00 017 01:47:00 DIS Emergency RAÚL SHAQ PRICE [facility] ER LOWER BACK PAIN,BLOOD I N URINE [id number] 08/08/2017 20:19:00 017 22:41:00 DIS Emergency BASILIO CANALES [facility] ER STREP THROAT [id number] 03/12/2017 16:06:00 017 17:14:00 DIS Emergency BASILIO CANALES [facility] ER HURTS TO COUGH,THROAT HURTS [id number] 12/21/2016 12:24:00 017 13:23:00 DIS Emergency BASILIO CANALES [facility] ER POSS STREP [id number] 10/25/2016 07:21:00 017 07:50:00 DIS Emergency NEPTALI MD, KAMI Milton [facility] ER LEFT EYE REDNESS [id number] 07/04/2016 17:10:00 17:25:00 DIS Emergency JARAD HOLLINS, JUNO Guardado [facility] ER SORE THROAT [id number] 05/10/2016 20:46:00 21:11:00 DIS Emergency CELIA HUGHES APRN [facility] ER L EAR PAIN [id number] 04/30/2016 18:19:00 21:20:00 DIS Emergency CELIA HUGHES APRN [facility] ER MIGRAINE PAIN/VOMITING [id number] 02/16/2016 10:47:00 13:10:00 DIS Emergency CELIA HUGHES APRN [facility] ER MIGRAINE/NAUSEA [id number] 12/20/2015 20:32:00 21:31:00 DIS Emergency JUAN LUIS HOLLINS, STEF Ortega [facility] ER CP [id number] 12/16/2015 12:16:00 14:54:00 DIS Emergency BASILIO CANALES [facility] ER DIFF BREATHING/CONGEST ION [id number] 12/04/2015 10:21:00 11:02:00 DIS Emergency CELIA HUGHES APRN [facility] ER POSS ABSCESS ON LEFT BR EAST [id number] 11/26/2015 15:28:00 23:59:59 CLS Emergency BASILIO CANALES [facility] ER HEADACHES/DIZZINESS [id number] 10/14/2015 16:39:00 19:03:00 DIS Emergency SHAQ OLSEN DO [facility] ER L KIDNEY/R SHOULDER DOROTHY N [id number] 09/03/2015 08:41:00 11:36:00 DIS Emergency SALVATORE HOLLINS, RONDA Wadsworth [facility] ER SORE THROAT,SOA ,EAR PAIN [id number] 06/24/2015 10:25:00 015 11:11:00 DIS Emergency CELIA HUGHES APRN [facility] ER RIGHT EAR PAIN/VOMITING [id number] 06/21/2015 14:16:00 18:36:00 DIS Emergency ANTONIA BARNES DO [facility] ER LEFT EAR PAIN/BLEEDING [id number] 05/16/2015 19:22:00 21:53:00 DIS Emergency RAÚL SHAQ [facility] ER HEADACHE [id number] 03/24/2015 09:06:00 11:07:00 DIS Emergency CELIA HUGHES APRN [facility] ER SORE THROAT HEADACHE [id number] 09/29/2014 22:40:00 23:47:00 DIS Emergency DELISA CARDONA MD [facility] ER VOMITING;HEADACHE [id number] 07/24/2014 11:13:00 12:34:00 DIS Emergency BASILIO CANALES [facility] ER SORE THROAT [id number] 04/04/2014 10:03:00 014 12:06:00 DIS Emergency RAÚL DOSHAQ [facility] ER MIGRAINE/VOMITING [id number] 02/14/2014 10:03:00 11:47:00 DIS Emergency DELISA CARDONA MD [facility] ER MIGRAINE [id number] 02/12/2014 14:10:00 15:08:00 DIS Emergency DELISA CARDONA MD [facility] ER MIGRAINE [id number] 02/01/2014 08:50:00 10:12:00 DIS Emergency STEF MCKNIGHT MD [facility] ER MIGRAINE [id number] 11/04/2013 17:16:00 21:14:00 DIS Emergency BASILIO CANALES [facility] ER CHEST PAIN,SOA [id number] 03/09/2020 23:43:[address] Emergency SHAQ OLSEN DO [facility] ER RT ARM RASH-BURNING [id number] 05/26/2018 11:50:00 Document Registration [id number] 03/24/2015 09:06:00 Document Registration [id number] 03/24/2015 09:06:00 Document Registration [id number] 07/11/2012 06:31:00 Document Registration
[2020-03-10] MEDS ORDERED: diphenhydrAMINE 25 MG TAB (BENADRYL) PO ONE (02:30)
[2020-03-10] MEDS ORDERED: predniSONE 20 MG TAB PO ONE (02:30)
[2020-03-10] MEDS ORDERED: MOME45CR3 TP (02:32)
[2020-03-10] MEDS ORDERED: PRD20T PO (02:32)
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
[2020-03-10 02:46] VITALS: BP 130/88
== END 2020-03-10 02:46 | disposition home or self-care (01) ==
LOC: EDUNIT# 23:40 → ER 23:43
DX: R21 Rash and other nonspecific skin eruption (principal); G40.909 Epilepsy, unspecified, not intractable, without status epilepticus; G43.909 Migraine, unspecified, not intractable, without status migrainosus; F17.210 Nicotine dependence, cigarettes, uncomplicated; Z88.0 Allergy status to penicillin; Z88.2 Allergy status to sulfonamides; Z88.8 Allergy status to other drugs, medicaments and biological substances
CPT/HCPCS: 99283

== ENCOUNTER 2020-04-21 20:08 | Emergency (ER) | payer SELFPAY ==
[~2020-04-21] VITALS: Ht 167.7 cm; Wt 99.3 kg
[~2020-04-21 20:08] MED LIST changes: +MOME45CR3 TP
[2020-04-21] MEDS ORDERED: LACTATED RINGERS 1,000 ML IV ONE (21:20)
[2020-04-21 21:30] LABS: BILIRUBIN,URINE NEGATIVE (NEGATIVE); CLARITY,URINE CLEAR; COLOR,URINE YELLOW; GLUCOSE, URINE (UA) NEGATIVE (NEGATIVE); KETONES,URINE NEGATIVE (NEGATIVE); LEUKOCYTE ESTERASE ,URINE NEGATIVE (NEGATIVE); NITRITE,URINE NEGATIVE (NEGATIVE); PH,URINE 5.5 (5-9); PROTEIN,URINE TRACE (NEGATIVE)
[2020-04-21 21:31] LABS: BASOPHILS # (AUTO) 0.1 10^3/uL (0.0-0.1); BASOPHILS % (AUTO) 1 % (0-10); EOSINOPHILS % (AUTO) 0 % (0-10); HEMATOCRIT 39 % (35-52); HEMOGLOBIN 13.1 G/DL (11.5-16.0); LYMPHOCYTES # (AUTO) 2.3 X 10^3 (1.0-4.0); LYMPHOCYTES % (AUTO) 30 % (12-44); MEAN CORPUSCULAR HEMOGLOBIN 29 PG (25-34); MEAN CORPUSCULAR HGB CONC 34 G/DL (32-36); MEAN CORPUSCULAR VOLUME 85 FL (80-99); MEAN PLATELET VOLUME 11.3 FL (7.4-10.4); MONOCYTES # (AUTO) 0.7 X 10^3 (0.0-1.0); MONOCYTES % (AUTO) 9 % (0-12); NEUTROPHILS # (AUTO) 4.5 X 10^3 (1.8-7.8); NEUTROPHILS % (AUTO) 60 % (42-75); PLATELET COUNT 310 10^3/uL (130-400); RED CELL DISTRIBUTION WIDTH 13.5 % (10.0-14.5); WHITE BLOOD COUNT 7.5 10^3/uL (4.3-11.0)
[2020-04-21 21:33] LABS: ALBUMIN 4.3 GM/DL (3.2-4.5); CHLORIDE 108 MMOL/L (98-107); POTASSIUM 3.9 MMOL/L (3.6-5.0); SODIUM 141 MMOL/L (135-145)
[2020-04-21 21:35] LABS: CALCIUM 9.2 MG/DL (8.5-10.1)
[2020-04-21 21:36] LABS: GLUCOSE 136 MG/DL (70-105); TOTAL PROTEIN 7.3 GM/DL (6.4-8.2)
[2020-04-21 21:37] LABS: CARBON DIOXIDE 19 MMOL/L (21-32)
[2020-04-21 21:38] LABS: BILIRUBIN,TOTAL 0.3 MG/DL (0.1-1.0)
[2020-04-21 21:39] LABS: ALKALINE PHOSPHATASE 65 U/L (40-136)
[2020-04-21 21:40] LABS: GFR ESTIMATED > 60
[2020-04-21 21:41] LABS: BUN/CREATININE RATIO 9
[2020-04-21 21:42] LABS: ALANINE AMINOTRANSFERASE 28 U/L (0-55); MAGNESIUM 2.1 MG/DL (1.6-2.4)
[2020-04-21 21:43] LABS: CREATINE KINASE 38 U/L (29-168)
[2020-04-21 21:49] LABS: PROTHROMBIN TIME PATIENT 13.8 SEC (12.2-14.7)
[2020-04-21 21:50] LABS: CREATINE KINASE MB 0.4 NG/ML (<6.6)
[2020-04-21 21:56] LABS: AMORPHOUS SEDIMENT,UR MOD AMOR URATES /LPF; BACTERIA,URINE TRACE /HPF
[2020-04-21 22:02] LABS: TSH (THYROID ANALYZER) 0.85 UIU/ML (0.35-4.94)
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
[2020-04-21 22:16] LABS: AMPHETAMINE SCREEN, URINE NEGATIVE (NEGATIVE); BARBITURATE SCREEN URINE NEGATIVE (NEGATIVE); BENZODIAZEPINES SCREEN URINE NEGATIVE (NEGATIVE); CANNABINOID SCREEN, URINE NEGATIVE (NEGATIVE); COCAINE SCREEN URINE NEGATIVE (NEGATIVE); METHADONE STAT NEGATIVE (NEGATIVE); METHAMPHETAMINE SCREEN URINE S NEGATIVE (NEGATIVE); OPIATE SCREEN URINE NEGATIVE (NEGATIVE); OXYCODONE STAT NEGATIVE (NEGATIVE); PROPOXYPHENE STAT NEGATIVE (NEGATIVE); TRICYCLIC ANTIDEPRESSANTS SCRE NEGATIVE (NEGATIVE)
[2020-04-21 23:02] VITALS: BP 143/90
--- NOTE | 2020-04-21 23:06 | Diagnostic Imaging Report ---
INDICATION: Seizure and fall. EXAMINATION: AP portable upright view of the chest was obtained. COMPARISON: Study of 07/28/2019. FINDINGS: Heart size and pulmonary vascularity are within normal limits, and the lungs are clear, bilaterally. IMPRESSION: Unremarkable chest. Dictated by: Dictated on workstation # [id number]
--- NOTE | 2020-04-22 06:04 | Diagnostic Imaging Report ---
PROCEDURE: CT head, face, and cervical spine without contrast. TECHNIQUE: Multiple contiguous axial images were obtained through the head, neck, and facial bones without the use of intravenous contrast. Sagittal and coronal reformations through the cervical spine and facial bones were also performed. Auto Exposure Controls were utilized during the CT exam to meet ALARA standards for radiation dose reduction. INDICATION: Seizure activity. Fall. COMPARISON: 02/21/2020. FINDINGS: CT head: The ventricles and cortical sulci are age-appropriate. There is no midline shift or mass-effect. No acute intracranial hemorrhage is seen. There is no CT evidence of acute territorial ischemia. No focal masses or collections are present. The calvarium is intact. CT face: No acute facial fractures are visualized. The mandible, zygomatic arches, and pterygoid plates are intact. The bilateral TMJ demonstrate normal articulation. No nasal bone fractures. The bony nasal septum is slightly deviated to the right without fracture. The paranasal sinuses and mastoid air cells are well pneumatized. The globes and orbits are symmetric and unremarkable. No evidence of orbital rim fracture. CT cervical spine: No acute fracture or dislocation is seen in the cervical spine. No focal osseous lesions. Vertebral body heights are well-maintained. The craniocervical junction is well-maintained. Soft tissues of the neck are unremarkable. Mildly prominent cervical lymph nodes are seen bilaterally. The included lung apices are clear. IMPRESSION: 1. No hemorrhage or focal intra-axial mass. No CT evidence of large acute territorial ischemia. 2. No acute fracture or dislocation in the cervical spine. 3. No acute facial fractures. 4. Nonspecific bilateral prominent cervical lymph nodes. Agree with overnight report. Dictated by: Dictated on workstation # [id number]
== END 2020-04-21 23:12 | disposition home or self-care (01) ==
LOC: EDUNIT# 20:08 → ER 20:10
DX: G40.909 Epilepsy, unspecified, not intractable, without status epilepticus (principal); S00.12XA Contusion of left eyelid and periocular area, initial encounter; I10 Essential (primary) hypertension; E78.00 Pure hypercholesterolemia, unspecified; E66.01 Morbid (severe) obesity due to excess calories; Z68.35 Body mass index [BMI] 35.0-35.9, adult; W18.39XA Other fall on same level, initial encounter; Y92.008 Other place in unspecified non-institutional (private) residence as the place of occurrence of the external cause; W22.03XA Walked into furniture, initial encounter; Z87.891 Personal history of nicotine dependence
CPT/HCPCS: 51701; 70450; 70486; 71045; 72125; 80053; 80306; 81000; 82550; 82553; 82962; 83735; 83874; 84443; 84703; 85025; 85610; 85730; 93041; 96360; 99284; G0480; 36415; 80320

== ENCOUNTER 2020-04-22 21:30 | Emergency (ER) | payer SELFPAY ==
[~2020-04-22] VITALS: Ht 165 cm; Wt 136.4 kg
[2020-04-22 21:49] VITALS: BP 155/80
[2020-04-22] MEDS ORDERED: ALPRAZolam 0.25 MG (XANAX) TAB PO ONE (22:00)
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
== END 2020-04-22 22:12 | disposition home or self-care (01) ==
LOC: EDUNIT# 21:30 → ER 21:31
DX: F41.0 Panic disorder [episodic paroxysmal anxiety] (principal); I10 Essential (primary) hypertension; E78.00 Pure hypercholesterolemia, unspecified; F32.9 Major depressive disorder, single episode, unspecified
CPT/HCPCS: 99283

== ENCOUNTER 2020-05-15 19:24 | Emergency (ER) | payer SELFPAY ==
[~2020-05-15] VITALS: Ht 165 cm; Wt 132.3 kg
[2020-05-15 19:29] VITALS: BP 188/69
--- NOTE | 2020-05-15 19:30 | ED Lower Extremity ---
General Stated Complaint: SEIZURE/FALL/R HIP PAIN History of Present Illness Date Seen by Provider: May 15, 2020 Time Seen by Provider: 19:29 Initial Comments Has a known seizure disorder, no seizure at home: No has right lateral rib pain. No bruising. Onset: just prior to arrival Severity: moderate Pain/Injury Location: right hip Method of Injury: unknown Modifying Factors: Improves With Movement Allergies and Home Medications Allergies Coded Allergies: amoxicillin (Verified Allergy, Unknown, 04/06/19) carbamazepine (Verified Allergy, Unknown, 04/06/19) shellfish derived (Verified Allergy, Unknown, 07/20/19) Penicillins (Unverified Adverse Reaction, Intermediate, 04/06/19) Sulfa (Sulfonamide Antibiotics) (Unverified Adverse Reaction, Intermediate, 04/06/19) Home Medications Butalb/Acetaminophen/Caffeine 1 Each Capsule, 2 EACH PO Q6H PRN for headache Prescribed by: CELIA HUGHES on 12/17/19 1631 Levetiracetam 1,000 Mg Tablet, 1,000 MG PO TID, (Reported) Mometasone Furoate 45 Gm Cream..g., 45 GM TP TID Prescribed by: SHAQ OLSEN on 03/10/20 023 Prednisone 20 Mg Tab, 40 MG PO DAILY Prescribed by: SHAQ OLSEN on 03/10/20 023 Patient Home Medication List Home Medication List Reviewed: Yes Review of Systems Constitutional: see HPI EENTM: see HPI Respiratory: no symptoms reported Cardiovascular: no symptoms reported Genitourinary: no symptoms reported Musculoskeletal: see HPI Skin: no symptoms reported Psychiatric/Neurological: No Symptoms Reported Past Tnthoii-Uvncyt-Npfikl Hx Patient Social History Alcohol Beverage of Choice: Beer Type Used: Cigarettes 2nd Hand Smoke Exposure: No Recent Foreign Travel: No Contact w/Someone Who Travel: No Recent Hopitalizations: No Immunizations Up To Date Tetanus Booster (TDap): Less than 5yrs PED Vaccines UTD: Yes Date of Pneumonia Vaccine: Apr 19, 2012 Date of Influenza Vaccine: Apr 19, 2012 Seasonal Allergies Seasonal Allergies: Yes Past Medical History Surgeries: Yes (EE BELOW) Adenoidectomy, Ear Surgery, Nephrectomy, Renal, Tonsillectomy Respiratory: No Cardiac: Yes High Cholesterol, Hypertension Neurological: Yes (SEE BELOW) Headaches /Migraines, Seizure Disorder Reproductive Disorders: No Genitourinary: Yes Bladder Infection Gastrointestinal: No Musculoskeletal: No Endocrine: No HEENT: Yes (S/P BMT'S; 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 THEY POSSIBLY HAVE BEEN RELATED TO MIGRAINES, BUT ON PREVIOUS ER VISITS, THE SEIZURES HAVE BEEN ALL SELF-REPORTED AND NOT WITNESSED PSH: -BMT'S -REMOVAL OF BENIGN TUMOR FROM ROOF OF MOUTH -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 -TONSILLECTOMY AND ADENOIDECTOMY Physical Exam Vital Signs Capillary Refill : Height, Weight, BMI Height: 5'5.00" Weight: 260lbs. 0oz. 117.363594fm; 50.00 BMI Method:Actual General Appearance: WD/WN, no apparent distress, obese Neck: non-tender, full range of motion Cardiovascular: regular rate, rhythm, no murmur Respiratory: no respiratory distress, no accessory muscle use Gastrointestinal: normal bowel sounds, non tender, soft Hips: bilateral hip non-tender, bilateral hip normal inspection, bilateral hip normal range of motion Legs: bilateral leg non-tender, bilateral leg normal inspection, bilateral leg normal range of motion Knees: bilateral knee non-tender, bilateral knee normal inspection, bilateral knee normal range of motion Ankles: bilateral ankle non-tender, bilateral ankle normal inspection, bilateral ankle normal range of motion Neurologic/Psychiatric: alert, normal mood/affect, oriented x 3 Skin: normal color, warm/dry Departure Impression Primary Impression: Contusion of hip Additional Impression: Seizure disorder Disposition: HOME, SELF-CARE Condition: Critical Departure-Patient Inst. Decision time for Depature: 19:29 Referrals: [facility]/ (PCP) Primary Care Physician DAVID CHOI APRN (Family) Primary Care Physician Patient Instructions: Contusion (DC) Add. Discharge Instructions: 1. Remember, no driving for 6 months after your seizure. Return to ER for any concerns. Tylenol and appropriate for pain. CELIA HUGHES APRN May 15, 2020 19:30
--- NOTE | 2020-05-15 19:52 | Diagnostic Imaging Report ---
INDICATION: 24-year-old female injured in a fall after a seizure. COMPARISONS: 04/21/2020 FINDINGS: Single view of the chest shows the cardiac contour to be within normal limits. The film is underpenetrated. Slight prominent central lung markings suggest an element of central venous congestion. Some basilar atelectatic infiltrates may be present. Overall, these findings appear to be similar to the previous study given differences in technique. There is no effusion or pneumothorax. Soft tissues and bony thorax are normal. IMPRESSION: Film is underpenetrated which does limit assessment. There is an element of mild central venous prominence as well as peribronchial cuffing centrally as may be seen with some reactive airway changes. Minimal perihilar and bibasilar atelectatic infiltrates, left greater than right, may be present. Once again, findings are accentuated due to body habitus, low lung volumes and portable technique. Dictated by: Dictated on workstation # [id number]
== END 2020-05-15 20:01 | disposition home or self-care (01) ==
LOC: EDUNIT# 19:24 → ER 19:25
DX: S70.01XA Contusion of right hip, initial encounter (principal); G40.909 Epilepsy, unspecified, not intractable, without status epilepticus; E66.9 Obesity, unspecified; Z68.43 Body mass index [BMI] 50.0-59.9, adult; Z88.1 Allergy status to other antibiotic agents; Z88.0 Allergy status to penicillin; Z88.2 Allergy status to sulfonamides; Z88.8 Allergy status to other drugs, medicaments and biological substances; Z79.52 Long term (current) use of systemic steroids; W19.XXXA Unspecified fall, initial encounter
CPT/HCPCS: 71045

== ENCOUNTER 2020-06-07 12:41 | Emergency (ER) | payer SELFPAY | END 2020-06-07 12:56 | disposition home or self-care (01) | LOC: EDUNIT# 12:41 → ER 12:41 | DX: G40.909 Epilepsy, unspecified, not intractable, without status epilepticus (principal) | CPT/HCPCS: 99281 ==

== ENCOUNTER 2020-06-13 14:05 | Emergency (ER) | payer SELFPAY ==
[~2020-06-13] VITALS: Ht 165.1 cm; Wt 88.5 kg
--- NOTE | 2020-06-13 15:47 | ED Headache ---
General Chief Complaint: Head/Cervical Problems Stated Complaint: HEADACHE Nursing Triage Note: PT REPORTS MIGRAINE AROUND LEFT EYE FOR 5 DAYS. PT STATES SHE HAS TRIED "EVERYTHING" WITH NO RELIEF. PT STATES SHE WAS SEEN AT [facility] AND HAD A TELE HEATL CONFERENCE WITH HER NEUROLOGIST AND WAS TOLD SHE NEEDED TO BE SEEN IN THE ED. SENSITIVE TO SOUND, SMELL, AND BRIGHT LIGTHS. Nursing Sepsis Screen: No Definite Risk Source: patient Exam Limitations: no limitations History of Present Illness Date Seen by Provider: Jun 13, 2020 Time Seen by Provider: 14:30 Initial Comments 24-year-old female who presents to the emergency room with complaints of a migraine around and behind her left eye for the past 5 days. She reports that she's tried all of her prescription and ysyp-udi-drzbyru medications for bairon kristine without improvement. She had an appointment with her neurologist and [facility] today and was referred to the emergency room for her migraine. She reports that she is sensitive to bright lights, sounds, strong smells. She denies any nausea or vomiting. She reports that she suffers from migraines all the time but this one is different. Associated Symptoms: denies symptoms Allergies and Home Medications Allergies Coded Allergies: amoxicillin (Verified Allergy, Unknown, 04/06/19) carbamazepine (Verified Allergy, Unknown, 04/06/19) shellfish derived (Verified Allergy, Unknown, 07/20/19) Penicillins (Unverified Adverse Reaction, Intermediate, 04/06/19) Sulfa (Sulfonamide Antibiotics) (Unverified Adverse Reaction, Intermediate, 04/06/19) Home Medications Butalb/Acetaminophen/Caffeine 1 Each Capsule, 2 EACH PO Q6H PRN for headache Prescribed by: CELIA HUGHES on 12/17/19 1631 Levetiracetam 1,000 Mg Tablet, 1,000 MG PO TID, (Reported) Mometasone Furoate 45 Gm Cream..g., 45 GM TP TID Prescribed by: SHAQ OLSEN on 03/10/20 023 Prednisone 20 Mg Tab, 40 MG PO DAILY Prescribed by: SHAQ OLSEN on 03/10/20 0232 Patient Home Medication List Home Medication List Reviewed: Yes Review of Systems Review of Systems Constitutional: see HPI; No chills, No fever Psychiatric/Neurological: See HPI, Headache All Other Systems Reviewed Negative Unless Noted: Yes Past Avqwdrw-Xoudii-Aqljtc Hx Past Med/Social Hx: Reviewed Nursing Past Med/Soc Hx Patient Social History Alcohol Use: Denies Use Number of Drinks Today: AA Alcohol Beverage of Choice: Beer Recreational Drug Use: No Smoking Status: Never a Smoker Type Used: Cigarettes 2nd Hand Smoke Exposure: No Recent Foreign Travel: No Contact w/Someone Who Travel: No Recent Infectious Disease Expo: No Recent Hopitalizations: No Physical Abuse: No Sexual Abuse: No Mistreated: No Immunizations Up To Date Tetanus Booster (TDap): Less than 5yrs PED Vaccines UTD: Yes Date of Pneumonia Vaccine: Apr 19, 2012 Date of Influenza Vaccine: Apr 19, 2012 Seasonal Allergies Seasonal Allergies: Yes Past Medical History Surgeries: Yes Adenoidectomy, Ear Surgery, Nephrectomy, Renal, Tonsillectomy Respiratory: No Cardiac: Yes High Cholesterol, Hypertension Neurological: Yes (SEE BELOW) Headaches /Migraines, Seizure Disorder Reproductive Disorders: No Genitourinary: Yes Bladder Infection Gastrointestinal: No Musculoskeletal: No Endocrine: No HEENT: Yes (S/P BMT'S; DECREASED HEARING IN LEFT EAR;BENIGN TUMOR-ROOF OF MOUTH REMOVED) Chronic Ear Infection Hearing Impairment: Hard of Hearing Cancer: No Psychosocial: Yes Anxiety, Depression Integumentary: No Blood Disorders: No Family Medical History Reviewed Nursing Family Hx No Pertinent Family Hx PMH: -HAD SEIZURES CHILD AND WAS ON MEDICATIONS UNTIL AGE 10; NO SEIZURES FOR YEARS, THEN STARTED HAVING SEIZURES AGAIN 10/2017, AND HAS BEEN BACK ON SEIZURE MEDICATIONS SINCE THEN. THEY POSSIBLY HAVE BEEN RELATED TO MIGRAINES, BUT ON PREVIOUS ER VISITS, THE SEIZURES HAVE BEEN ALL SELF-REPORTED AND NOT WITNESSED PSH: -BMT'S -REMOVAL OF BENIGN TUMOR FROM ROOF OF MOUTH -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 -TONSILLECTOMY AND ADENOIDECTOMY Physical Exam Vital Signs Vital Signs - First Documented 06/13/20 14:18 Temp 36.8 Pulse 98 Resp 16 B/P (MAP) 168/98 (121) Capillary Refill : Less Than 3 Seconds Height, Weight, BMI Height: 5'5.00" Weight: 260lbs. 0oz. 117.420448za; 32.00 BMI Method:Actual General Appearance: WD/WN, no apparent distress Cardiovascular: normal peripheral pulses, regular rate, rhythm, no edema, no gallop, no JVD, no murmur Respiratory: chest non-tender, lungs clear, normal breath sounds, no respiratory distress, no accessory muscle use Extremities: normal capillary refill Psychiatric: alert, oriented x 3 Crainal Nerves: normal hearing, normal speech, PERRL Coordination/Gait: normal finger to nose, normal gait Motor/Sensory: no motor deficit, no sensory deficit Skin: normal color, warm/dry Progress/Results/Core Measures Results/Orders My Orders Orders - ANDREW SUAREZ Ct Head Wo (06/13/20 14:30) Ketorolac Injection (Toradol Injection) (06/13/20 16:15) Diphenhydramine Injection (Benadryl Inje (06/13/20 16:15) Vital Signs/I&O 06/13/20 14:18 Temp 36.8 Pulse 98 Resp 16 B/P (MAP) 168/98 (121) Blood Pressure Mean: 121 Departure Impression Primary Impression: Headache Disposition: 01 HOME, SELF-CARE Condition: Stable/Unchanged Departure-Patient Inst. Decision time for Depature: 16:11 Referrals: [facility]/MIGUELINA (PCP) Primary Care Physician DAVID CHOI APRN (Family) Primary Care Physician Patient Instructions: Migraine Headache (DC) Add. Discharge Instructions: Resume your home medication as previously prescribed. Follow-up with your primary care provider within 1 week for recheck. Return back to the emergency ro om for worsening symptoms or concerns as needed. All discharge instructions reviewed with patient and/or family. Voiced underst anding. ANDREW SUAREZ Jun 13, 2020 15:47
--- NOTE | 2020-06-13 15:53 | Diagnostic Imaging Report ---
INDICATION: Pain behind left eye, history of migraines and epilepsy. TECHNIQUE: Multiple contiguous axial images were obtained through the brain without the use of intravenous contrast. Auto Exposure Controls were utilized during the CT exam to meet ALARA standards for radiation dose reduction. COMPARISON: Comparison made to 04/21/2020. FINDINGS: There were no extra-axial fluid collections. No intracranial hemorrhage. No intracranial mass or mass effect. No midline shift. The ventricles are normal in size and position. There were no focal parenchymal abnormalities in the brain. Calvarial windows appear unremarkable. IMPRESSION: Negative noncontrast brain CT. Dictated by: Dictated on workstation # [id number]
[2020-06-13] MEDS ORDERED: diphenhydrAMINE 50 MG/ML INJ (BENADRYL) IM ONE (16:15)
[2020-06-13] MEDS ORDERED: KETOROLAC 60 MG/2 ML VIAL IM ONE (16:15)
[2020-06-13 16:25] VITALS: BP 168/98
== END 2020-06-13 16:25 | disposition home or self-care (01) ==
LOC: EDUNIT# 14:05 → ER 14:06
DX: R51 Headache (principal); G40.909 Epilepsy, unspecified, not intractable, without status epilepticus; Z86.69 Personal history of other diseases of the nervous system and sense organs; Z79.51 Long term (current) use of inhaled steroids; Z79.52 Long term (current) use of systemic steroids; Z88.1 Allergy status to other antibiotic agents; Z88.8 Allergy status to other drugs, medicaments and biological substances; Z88.0 Allergy status to penicillin; Z88.2 Allergy status to sulfonamides; Z86.018 Personal history of other benign neoplasm
CPT/HCPCS: 70450

== ENCOUNTER 2020-07-05 13:44 | Emergency (ER) | payer SELFPAY ==
[~2020-07-05] VITALS: Ht 165.1 cm; Wt 129.5 kg
[2020-07-05 13:56] VITALS: BP 125/81
[2020-07-05] MEDS ORDERED: OFLO5DRO33 RIGHT EAR (14:26)
--- NOTE | 2020-07-05 14:26 | ED EENT ---
History of Present Illness General Chief Complaint: Ear Problems Stated Complaint: EAR PAIN;NECK PAIN Source: patient Exam Limitations: no limitations History of Present Illness Date Seen by Provider: Jul 05, 2020 Time Seen by Provider: 14:22 Initial Comments To ER with right sided earache and right-sided neck ache tender to touch. Timing/Duration: abrupt Severity: moderate Location: ear (R) Prearrival Treatment: no prearrival treatment Associated Symptoms: facial pain/swelling Allergies and Home Medications Allergies Coded Allergies: amoxicillin (Verified Allergy, Unknown, 04/06/19) carbamazepine (Verified Allergy, Unknown, 04/06/19) shellfish derived (Verified Allergy, Unknown, 07/20/19) Penicillins (Unverified Adverse Reaction, Intermediate, 04/06/19) Sulfa (Sulfonamide Antibiotics) (Unverified Adverse Reaction, Intermediate, 04/06/19) Home Medications Butalb/Acetaminophen/Caffeine 1 Each Capsule, 2 EACH PO Q6H PRN for headache Prescribed by: CELIA HUGHES on 12/17/19 1631 Levetiracetam 1,000 Mg Tablet, 1,000 MG PO TID, (Reported) Mometasone Furoate 45 Gm Cream..g., 45 GM TP TID Prescribed by: SHAQ OLSEN on 03/10/20231 Prednisone 20 Mg Tab, 40 MG PO DAILY Prescribed by: SHAQ OLSEN on 03/10/20231 Patient Home Medication List Home Medication List Reviewed: Yes Review of Systems Review of Systems Constitutional: see HPI Eyes: No Symptoms Reported Ears: See HPI Nose: no symptoms reported Mouth: no symptoms reported Throat: no symptoms reported Respiratory: no symptoms reported Cardiovascular: no symptoms reported Musculoskeletal: see HPI, neck pain (right-sided lateral unable to turn head to either side and tender to touch on the right side) Skin: no symptoms reported Neurological: No Symptoms Reported Hematologic/Lymphatic: No Symptoms Reported Immunological/Allergic: no symptoms reported Past Wbwqylf-Somhxc-Odikda Hx Patient Social History Alcohol Beverage of Choice: Beer Type Used: Cigarettes 2nd Hand Smoke Exposure: No Recent Hopitalizations: No Immunizations Up To Date Tetanus Booster (TDap): Less than 5yrs PED Vaccines UTD: Yes Date of Pneumonia Vaccine: Apr 19, 2012 Date of Influenza Vaccine: Apr 19, 2012 Seasonal Allergies Seasonal Allergies: Yes Past Medical History Surgeries: Yes Adenoidectomy, Ear Surgery, Nephrectomy, Renal, Tonsillectomy Respiratory: No Cardiac: Yes High Cholesterol, Hypertension Neurological: Yes (SEE BELOW) Headaches /Migraines, Seizure Disorder Reproductive Disorders: No Genitourinary: Yes Bladder Infection Gastrointestinal: No Musculoskeletal: No Endocrine: No HEENT: Yes (S/P BMT'S; 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 THEY POSSIBLY HAVE BEEN RELATED TO MIGRAINES, BUT ON PREVIOUS ER VISITS, THE SEIZURES HAVE BEEN ALL SELF-REPORTED AND NOT WITNESSED PSH: -BMT'S -REMOVAL OF BENIGN TUMOR FROM ROOF OF MOUTH -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 -TONSILLECTOMY AND ADENOIDECTOMY Physical Exam Height, Weight, BMI Height: 5'5.00" Weight: 260lbs. 0oz. 117.179624za; 32.00 BMI Method:Actual General Appearance: WD/WN, no apparent distress Eyes: bilateral eye normal inspection, bilateral eye PERRL, bilateral eye EOMI Ears: right ear other (right external canal slightly erythematous. Tympanic membranes normal); left ear canal normal; bilateral ear auricle normal, bilateral ear TM normal Neck: non-tender, full range of motion Respiratory: no respiratory distress, no accessory muscle use Gastrointestinal: normal bowel sounds, non tender Neurologic/Psychiatric: alert, normal mood/affect, oriented x 3 Skin: normal color, warm/dry Departure Impression Primary Impression: Otitis externa Qualified Codes: H60.501 - Unspecified acute noninfective otitis externa, right ear Disposition: 01 HOME, SELF-CARE Condition: Stable Departure-Patient Inst. Decision time for Depature: 14:25 Referrals: [facility]/MIGUELINA (PCP) Primary Care Physician DAVID CHOI APRN (Family) Primary Care Physician Patient Instructions: Outer Ear Infection Add. Discharge Instructions: 1. Return to ER for any concerns 2. Follow-up with your doctor next week 3. All discharge instructions reviewed with patient and/or family. Voiced understanding. Scripts Ofloxacin (Floxin (Non-Formulary)) 5 Ml Drops 3 DROPS RIGHT EAR BID for 5 Days, #1 DROPS 0 Refills Prov: CELIA HUGHES APRN 07/05/20 CELIA HUGHES APRN Jul 05, 2020 14:26
[2020-07-05] MEDS ORDERED: KETOROLAC 60 MG/2 ML VIAL IM ONE (14:30)
[2020-07-05] MEDS ORDERED: ORPHENADRINE 60 MG/2 ML (NORFLEX) AMP (ED ONLY) IM ONE (14:30)
== END 2020-07-05 14:43 | disposition home or self-care (01) ==
LOC: EDUNIT# 13:44 → ER 13:46
DX: H60.91 Unspecified otitis externa, right ear (principal); G40.909 Epilepsy, unspecified, not intractable, without status epilepticus; Z88.0 Allergy status to penicillin; Z88.2 Allergy status to sulfonamides; Z88.1 Allergy status to other antibiotic agents; Z88.8 Allergy status to other drugs, medicaments and biological substances; Z79.52 Long term (current) use of systemic steroids
CPT/HCPCS: 99284

== ENCOUNTER 2020-07-13 08:49 | Emergency (ER) | payer SELFPAY ==
[~2020-07-13] VITALS: Ht 165 cm; Wt 127.0 kg
[2020-07-13 08:49] VITALS: BP 155/109
[~2020-07-13 08:49] MED LIST changes: +OFLO5DRO33 RIGHT EAR
[2020-07-13] MEDS ORDERED: ONDANSETRON 4 MG (ZOFRAN) ORAL DISSOLVE TAB SL ONE (09:15)
[2020-07-13] MEDS ORDERED: diphenhydrAMINE 50 MG/ML INJ (BENADRYL) IM ONE (09:15)
--- NOTE | 2020-07-13 09:18 | ED General ---
General Chief Complaint: Allergic Reaction Stated Complaint: ALLERGIC REACTION/TROUBLE BREATHING Source of Information: Patient Exam Limitations: No Limitations History of Present Illness Date Seen by Provider: Jul 13, 2020 Time Seen by Provider: 09:15 Initial Comments This 24-year-old young lady presents to the emergency room with complaints of vomiting within a few minutes of taking Keflex this morning. She had presented to [facility] earlier in the week with concerns about a follicular type rash and scalp itching. She notes a penicillin allergy and was prescribed Keflex. She was concerned about cross-reaction allergy to the Keflex. She reports vomiting almost immediately after taking Keflex this morning. She believes her follicular rash and scalp itching got worse after that time. She took a Benadryl within a couple minutes of taking the Keflex. She then vomited. She believes she vomited up any and all medication she took this morning. After vomiting she described some mild pain with inspiration, cough, and difficulty breathing. This was not present prior to vomiting. Symptoms have now improved but she is still a little nauseous. Vital signs are unremarkable aside from mild hypertension. She has no respiratory distress and no evidence of swelling of the lips, tongue, or throat. There are very subtle scattered spots of follicular rash on the extremities, but no other rashes noted. No hives are present. She denies any COVID-19 exposures as she and her father have been quarantining due to his COPD. Allergies and Home Medications Allergies Coded Allergies: cephalexin (Verified Allergy, Severe, soa, 07/13/20) amoxicillin (Verified Allergy, Unknown, 04/06/19) carbamazepine (Verified Allergy, Unknown, 04/06/19) shellfish derived (Verified Allergy, Unknown, 07/20/19) Penicillins (Unverified Adverse Reaction, Intermediate, 04/06/19) Sulfa (Sulfonamide Antibiotics) (Unverified Adverse Reaction, Intermediate, 04/06/19) Home Medications Butalb/Acetaminophen/Caffeine 1 Each Capsule, 2 EACH PO Q6H PRN for headache Prescribed by: CELIA HUGHES on 12/17/19 1631 Levetiracetam 1,000 Mg Tablet, 1,000 MG PO TID, (Reported) Mometasone Furoate 45 Gm Cream..g., 45 GM TP TID Prescribed by: SHAQ OLSEN on 03/10/20 0232 Ofloxacin 5 Ml Drops, 3 DROPS RIGHT EAR BID Prescribed by: CELIA HUGHES on 07/05/20 1426 Prednisone 20 Mg Tab, 40 MG PO DAILY Prescribed by: SHAQ OLSEN on 03/10/20 0232 Patient Home Medication List Home Medication List Reviewed: Yes Review of Systems Review of Systems Constitutional: no symptoms reported EENTM: no symptoms reported Respiratory: see HPI Cardiovascular: no symptoms reported Gastrointestinal: see HPI Genitourinary: no symptoms reported : No Musculoskeletal: no symptoms reported Skin: no symptoms reported Psychiatric/Neurological: No Symptoms Reported Hematologic/Lymphatic: No Symptoms Reported Immunological/Allergic: no symptoms reported Past Frxvgqg-Vrohfu-Wugklh Hx Past Med/Social Hx: Reviewed Nursing Past Med/Soc Hx Patient Social History Alcohol Use: Denies Use Alcohol Beverage of Choice: Beer Recreational Drug Use: No Smoking Status: Never a Smoker Type Used: Cigarettes 2nd Hand Smoke Exposure: No Recent Foreign Travel: No Contact w/Someone Who Travel: No Recent Hopitalizations: No Immunizations Up To Date Tetanus Booster (TDap): Less than 5yrs PED Vaccines UTD: Yes Date of Pneumonia Vaccine: Apr 19, 2012 Date of Influenza Vaccine: Apr 19, 2012 Seasonal Allergies Seasonal Allergies: Yes Past Medical History Surgeries: Yes Adenoidectomy, Ear Surgery, Nephrectomy, Renal, Tonsillectomy Respiratory: No Cardiac: Yes High Cholesterol, Hypertension Neurological: Yes (SEE BELOW) Headaches /Migraines, Seizure Disorder Reproductive Disorders: No Genitourinary: Yes Bladder Infection Gastrointestinal: No Musculoskeletal: No Endocrine: No HEENT: Yes (S/P BMT'S; 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 THEY POSSIBLY HAVE BEEN RELATED TO MIGRAINES, BUT ON PREVIOUS ER VISITS, THE SEIZURES HAVE BEEN ALL SELF-REPORTED AND NOT WITNESSED PSH: -BMT'S -REMOVAL OF BENIGN TUMOR FROM ROOF OF MOUTH -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 -TONSILLECTOMY AND ADENOIDECTOMY Physical Exam Vital Signs Vital Signs - First Documented 07/13/20 08:49 Temp 35.9 Pulse 77 Resp 16 B/P (MAP) 155/109 (124) Pulse Ox 96 O2 Delivery Room Air Capillary Refill : Height, Weight, BMI Height: 5'5.00" Weight: 260lbs. 0oz. 117.816846rm; 47.00 BMI Method:Actual General Appearance: No Apparent Distress, WD/WN, Obese HEENT: PERRL/EOMI, TMs Normal, Normal ENT Inspection, Pharynx Normal Neck: Normal Inspection Respiratory: Lungs Clear, Normal Breath Sounds, No Accessory Muscle Use, No Respiratory Distress Cardiovascular: Regular Rate, Rhythm, No Edema, No Murmur Gastrointestinal: Normal Bowel Sounds, Non Tender, Soft Extremity: Normal Inspection, Pedal Edema Neurologic/Psychiatric: Alert, Oriented x3, No Motor/Sensory Deficits, reference services head II- XII Norm as Tested, Other (anxious) Skin: Warm/Dry, Rash (faint scattered slight follicular rash on the upper extremities. No exam findings on the scalp.) Progress/Results/Core Measures Suspected Sepsis SIRS Temperature: Pulse: Respiratory Rate: Blood Pressure / Mean: Results/Orders My Orders Orders - STEF MCKNIGHT MD Diphenhydramine Injection (Benadryl Inje (07/13/20 09:15) Ondansetron Oral Dissolve Tab (Zofran (07/13/20 09:15) Medications Given in ED Current Medications Medications Dose Ordered Sig/Kayode Route Start Time Stop Time Status Last Admin Dose Admin Diphenhydramine HCl 25 mg ONCE ONCE IM 07/13/20 09:15 07/13/20 09:16 DC 07/13/20 09:20 25 MG Ondansetron HCl 4 mg ONCE ONCE SL 07/13/20 09:15 07/13/20 09:16 DC 07/13/20 09:20 4 MG Vital Signs/I&O 07/13/20 08:49 Temp 35.9 Pulse 77 Resp 16 B/P (MAP) 155/109 (124) Pulse Ox 96 O2 Delivery Room Air Capillary Refill : Progress Note : Progress Note Patient was given an injection of Benadryl as a precaution although there were no strong indications of allergic reaction. Keflex was added to the allergy list as a precaution. Nausea and vomiting was treated with Zofran. Departure Impression Primary Impression: Rash Additional Impressions: Pruritus of scalp Nausea and vomiting Qualified Codes: R11.2 - Nausea with vomiting, unspecified Disposition: 01 HOME, SELF-CARE Condition: Improved Departure-Patient Inst. Decision time for Depature: 09:16 Referrals: [facility]/MIGUELINA (PCP) Primary Care Physician DAVID CHOI APRN (Family) Primary Care Physician Patient Instructions: Heat Rash (Prickly Heat) Add. Discharge Instructions: You may treat your itchy scalp with a sensitive shampoo such as Selsun Blue. You do not appear to have a folliculitis requiring oral antibiotics. If the rash is problematic, you may try a topical antibiotic such as bacitracin. You may continue using Benadryl (diphenhydramine) per package instructions for itching. If you have worsening of symptoms, especially worsening shortness of breath, return to care. Although your vital signs and exam did not seem consistent with allergic reaction today, Keflex has been added to your allergy list as a precaution. All discharge instructions reviewed with patient and/or family. Voiced understanding. STEF MCKNIGHT MD Jul 13, 2020 09:18
== END 2020-07-13 09:31 | disposition home or self-care (01) ==
LOC: EDUNIT# 08:49 → ER 08:51
DX: R21 Rash and other nonspecific skin eruption (principal); L29.9 Pruritus, unspecified; R11.2 Nausea with vomiting, unspecified; I10 Essential (primary) hypertension; G43.909 Migraine, unspecified, not intractable, without status migrainosus; G40.909 Epilepsy, unspecified, not intractable, without status epilepticus; Z88.1 Allergy status to other antibiotic agents; Z88.0 Allergy status to penicillin; Z88.2 Allergy status to sulfonamides; Z88.8 Allergy status to other drugs, medicaments and biological substances; Z79.52 Long term (current) use of systemic steroids; Z79.51 Long term (current) use of inhaled steroids
CPT/HCPCS: 99283

== ENCOUNTER 2020-08-15 14:16 | Emergency (ER) | payer SELFPAY ==
[~2020-08-15] VITALS: Ht 165 cm; Wt 120.0 kg
--- NOTE | 2020-08-15 15:04 | NUR ---
TO ROOM NO NEW C/O FROM TRIAGE.
--- NOTE | 2020-08-15 15:54 | ED Abdominal Pain ---
General Chief Complaint: Female Reproductive Stated Complaint: HEAVY MENSTRUAL Nursing Triage Note: PT ARRIVES TO ER WITH C/O HEAVING BLEEDING FROM PERIOD STARTING 08/14 AND PAINFUL CRAMPING Sepsis Screen: No Definite Risk (CELIA ZAMUDIO MED STUDENT) History of Present Illness Date Seen by Provider: Aug 15, 2020 Time Seen by Provider: 03:15 Initial Comments Lina William is a 24 yo F with history of absent right kidney and epilepsy who presents with complaint of heavy menses. The patient states her first menses was at 8 y.o. She states she visited her PCP on 08/11, 4 days ago, because she had 3 periods in the span of a month with the last ending on 07/23, and at that time she was diagnosed with PCOS. The patient complains of heavy menstrual bleeding beginning 08/13, 3 days ago, which was most severe this morning going through 1 pad per hour. She complains of intermittent severe lower abdominal cramping as well. The patient has taken 500mg tylenol and 800mg ibuprofen every 6 hours without improvement. She also complains of daytime fatigue since yesterday. The patient denies fever, chills, chest pain, SOB, lightheadedness, change in bowel habits, vaginal discharge, urinary frequency, and dysuria. Denies sexual activity. No recent medication changes. She is waiting on her neurologist's opinion before starting medications for PCOS. (CELIA ZAMUDIO MED STUDENT) Allergies and Home Medications Allergies Coded Allergies: cephalexin (Verified Allergy, Severe, soa, 07/13/20) amoxicillin (Verified Allergy, Unknown, 04/06/19) carbamazepine (Verified Allergy, Unknown, 04/06/19) shellfish derived (Verified Allergy, Unknown, 07/20/19) Penicillins (Unverified Adverse Reaction, Intermediate, 04/06/19) Sulfa (Sulfonamide Antibiotics) (Unverified Adverse Reaction, Intermediate, 04/06/19) Home Medications Butalb/Acetaminophen/Caffeine 1 Each Capsule, 2 EACH PO Q6H PRN for headache Prescribed by: CELIA HUGHES on 12/17/19 1631 Clindamycin HCl 300 Mg Capsule, 300 MG PO TID Prescribed by: STEF NAVAS on 08/15/20 1646 Levetiracetam 1,000 Mg Tablet, 1,000 MG PO TID, (Reported) Medroxyprogesterone Acetate 10 Mg Tablet, 10 MG PO DAILY Prescribed by: STEF NAVAS on 08/15/20 1647 Mometasone Furoate 45 Gm Cream..g., 45 GM TP TID Prescribed by: SHAQ OLSEN on 03/10/20 0232 Ofloxacin 5 Ml Drops, 3 DROPS RIGHT EAR BID Prescribed by: CELIA HUGHES on 07/05/20 1426 Prednisone 20 Mg Tab, 40 MG PO DAILY Prescribed by: SHAQ OLSEN on 03/10/20 023 Patient Home Medication List Home Medication List Reviewed: Yes (STEF KHALIL MD) Review of Systems Review of Systems Constitutional: No chills, No dizziness, No fever EENTM: No Blurred Vision, No Double Vision Respiratory: Denies Cough, Denies Shortness of Air Cardiovascular: Denies Chest Pain, Denies Edema Gastrointestinal: Abdominal Pain; Denies Blood Streaked Stools, Denies Nausea, Denies Vomiting Genitourinary: Denies Burning, Denies Discharge, Denies Frequency, Denies Flank Pain, Denies Hematuria; Other (heavy menstrual bleeding) Musculoskeletal: No back pain (CELIA ZAMUDIO) Past Tpjpwqh-Decnhy-Ynpwpt Hx Patient Social History Alcohol Use: Denies Use Number of Drinks Today: AA Alcohol Beverage of Choice: Beer Recreational Drug Use: No Type Used: Cigarettes 2nd Hand Smoke Exposure: No Recent Foreign Travel: No Contact w/Someone Who Travel: No Recent Infectious Disease Expo: No Recent Hopitalizations: No (CELIA ZAMUDIO) Immunizations Up To Date Tetanus Booster (TDap): Less than 5yrs PED Vaccines UTD: Yes Date of Pneumonia Vaccine: Apr 19, 2012 Date of Influenza Vaccine: Apr 19, 2012 (CELIA ZAMUDIO) Seasonal Allergies Seasonal Allergies: Yes (CELIA ZAMUDIO) Past Medical History Surgeries: Yes Adenoidectomy, Ear Surgery, Nephrectomy, Renal, Tonsillectomy Respiratory: No Cardiac: Yes High Cholesterol, Hypertension Neurological: Yes (SEE BELOW) Headaches /Migraines, Seizure Disorder Last Menstrual Period: Aug 14, 2020 Reproductive Disorders: No Genitourinary: Yes Bladder Infection Gastrointestinal: No Musculoskeletal: No Endocrine: No HEENT: Yes (S/P BMT'S; DECREASED HEARING IN LEFT EAR;BENIGN TUMOR-ROOF OF MOUTH REMOVED) Chronic Ear Infection Hearing Impairment: Hard of Hearing Cancer: No Psychosocial: Yes Anxiety, Depression Integumentary: No Blood Disorders: No (CELIA ZAMUDIO STUDENT) Family Medical History No Pertinent Family Hx PMH: -HAD SEIZURES CHILD AND WAS ON MEDICATIONS UNTIL AGE 10; NO SEIZURES FOR YEARS, THEN STARTED HAVING SEIZURES AGAIN 10/2017, AND HAS BEEN BACK ON SEIZURE MEDICATIONS SINCE THEN. THEY POSSIBLY HAVE BEEN RELATED TO MIGRAINES, BUT ON PREVIOUS ER VISITS, THE SEIZURES HAVE BEEN ALL SELF-REPORTED AND NOT WITNESSED PSH: -BMT'S -REMOVAL OF BENIGN TUMOR FROM ROOF OF MOUTH -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 -TONSILLECTOMY AND ADENOIDECTOMY (CELIA ZAMUDIO STUDENT) Physical Exam Vital Signs Vital Signs - First Documented 08/15/20 15:00 Temp 36.9 Pulse 79 Resp 19 B/P (MAP) 149/83 (105) Pulse Ox 96 O2 Delivery Room Air (STEF KHALIL MD) Vital Signs Capillary Refill : Less Than 3 Seconds (CELIA ZAMUDIO STUDENT) Height/Weight/BMI Height: 5'5.00" Weight: 260lbs. 0oz. 117.926504so; 44.00 BMI Method:Actual General Appearance: WD/WN, obese HEENT: PERRL/EOMI Neck: normal inspection Respiratory: chest non-tender, lungs clear, normal breath sounds, no respiratory distress, no accessory muscle use Cardiovascular: regular rate, rhythm, no edema, no gallop, no JVD, no murmur Gastrointestinal: soft; No distended, No guarding, No rebound; tenderness (mild bilateral lower abdominal tenderness) Neurologic/Psychiatric: alert, normal mood/affect, oriented x 3 Skin: normal color, warm/dry (CELIA ZAMUDIO STUDENT) Progress/Results/Core Measures Results/Orders Lab Results Laboratory Tests Test 08/15/20 15:41 08/15/20 16:00 08/15/20 16:05 Range/Units White Blood Count 6.1 4.3-11.0 10^3/uL Red Blood Count 4.63 4.35-5.85 10^6/uL Hemoglobin 12.9 11.5-16.0 G/DL Hematocrit 39 35-52 % Mean Corpuscular Volume 28 L 80-99 FL Mean Corpuscular Hemoglobin 28 25-34 PG Mean Corpuscular Hemoglobin Concent 33 32-36 G/DL Red Cell Distribution Width 13.4 10.0-14.5 % Platelet Count 289 130-400 10^3/uL Mean Platelet Volume 10.5 H 7.4-10.4 FL Neutrophils (%) (Auto) 66 42-75 % Lymphocytes (%) (Auto) 25 12-44 % Monocytes (%) (Auto) 8 0-12 % Eosinophils (%) (Auto) 0 0-10 % Basophils (%) (Auto) 0 0-10 % Neutrophils # (Auto) 4.0 1.8-7.8 X 10^3 Lymphocytes # (Auto) 1.5 1.0-4.0 X 10^3 Monocytes # (Auto) 0.5 0.0-1.0 X 10^3 Eosinophils # (Auto) 0.0 0.0-0.3 10^3/uL Basophils # (Auto) 0.0 0.0-0.1 10^3/uL Prothrombin Time 13.1 12.2-14.7 SEC INR Comment 1.0 0.8-1.4 Activated Partial Thromboplast Time 34 24-35 SEC Sodium Level 142 135-145 MMOL/L Potassium Level 4.5 3.6-5.0 MMOL/L Chloride Level 107 98-107 MMOL/L Carbon Dioxide Level 21 21-32 MMOL/L Anion Gap 14 5-14 MMOL/L Blood Urea Nitrogen 10 7-18 MG/DL Creatinine 0.87 0.60-1.30 MG/DL Estimat Glomerular Filtration Rate > 60 BUN/Creatinine Ratio 11 Glucose Level 87 70-105 MG/DL Calcium Level 9.4 8.5-10.1 MG/DL Corrected Calcium 9.2 8.5-10.1 MG/DL Total Bilirubin 0.3 0.1-1.0 MG/DL Aspartate Amino Transf (AST/SGOT) 18 5-34 U/L Alanine Aminotransferase (ALT/SGPT) 16 0-55 U/L Alkaline Phosphatase 68 40-136 U/L Total Protein 7.3 6.4-8.2 GM/DL Albumin 4.3 3.2-4.5 GM/DL Urine Color RED H Urine Clarity TURBID Urine pH 5.0 5-9 Urine Specific [place] 1.020 1.016-1.022 Urine Protein 2+ H NEGATIVE Urine Glucose (UA) NEGATIVE NEGATIVE Urine Ketones TRACE H NEGATIVE Urine Nitrite POSITIVE H NEGATIVE Urine Bilirubin NEGATIVE NEGATIVE Urine Urobilinogen 1.0 < = 1.0 MG/DL Urine Leukocyte Esterase TRACE H NEGATIVE Urine RBC (Auto) 3+ H NEGATIVE Urine RBC TNTC H /HPF Urine WBC 10-25 H /HPF Urine Crystals NONE /LPF Urine Bacteria FEW H /HPF Urine Casts NONE /LPF Urine Mucus NEGATIVE /LPF Urine Culture Indicated YES Serum Test, Qualitative NEGATIVE NEGATIVE (STEF KHALIL MD) My Orders Orders - STEF KHALIL MD Cbc With Automated Diff (08/15/20 15:26) Comprehensive Metabolic Panel (08/15/20 15:26) Hcg,Qualitative Serum (08/15/20 15:) Protime With Inr (08/15/20 15:) Partial Thromboplastin Time (08/15/20 15:26) Ua Culture If Indicated (08/15/20 15:26) Ed Iv/Invasive Line Start (08/15/20 15:26) Urine Culture (08/15/20 16:00) (STEF KHALIL MD) Vital Signs/I&O 08/15/20 08/15/20 15:00 16:56 Temp 36.9 36.9 Pulse 79 79 Resp 19 19 B/P (MAP) 149/83 (105) 149/83 (105) Pulse Ox 96 96 O2 Delivery Room Air (STEF KHALIL MD) Blood Pressure Mean: 105 Progress Progress Note : Time: 15:57 Progress Note Lina is a 24 yo F with newly diagnosed PCOS and irregular menses presenting with complaint of 3 days of heavy menstrual bleeding at 1 pad per hour today. She also complains of intermittent lower abdominal cramping as well as daytime fatigue today. Vitals are stable with no fever, hypertension 149/83, and pulse of 80. We will obtain labs including CBC, CMP, serum , and coag panel. Dr. Khalil called [facility] and found lab result for TSH drawn 07/24 was within normal limits. (CELIA ZAMUDIO MED STUDENT) Departure Impression Primary Impression: Abnormal bleeding in menstrual cycle Additional Impression: Urinary tract infection Qualified Codes: N39.0 - Urinary tract infection, site not specified Disposition: HOME, SELF-CARE Condition: Stable Departure-Patient Inst. Decision time for Depature: 16:44 (STEF KHALIL MD) Referrals: [facility] (PCP) Primary Care Physician NAZANIN MOTA APRN (Family) Primary Care Physician Patient Instructions: Urinary Tract Infection, Adult (DC), Heavy Periods (DC) Add. Discharge Instructions: Continue the outpatient work-up for your heavy periods as directed by your primary care team. Referral to a copper plate printer is a reasonable next step. Start the clindamycin antibiotic and complete the entire course. If you do not improve after couple of days of clindamycin, or if your bleeding becomes even more intense, you may start the course of Provera. This should stop your bleeding. You will have a withdrawal bleed within a few days of stopping Provera but this should hopefully reset your cycles. Call your doctor or return to the ER if you have worsening symptoms. All discharge instructions reviewed with patient and/or family. Voiced understanding. Scripts Medroxyprogesterone Acetate (Provera) 10 Mg Tablet 10 MG PO DAILY, #10 TAB Prov: STEF KHALIL MD 08/15/20 Clindamycin HCl (Clindamycin HCl) 300 Mg Capsule 300 MG PO TID, #21 CAP Prov: STEF KHALIL MD 08/15/20 I have personally interviewed and examined this patient along with Celia Zamudio, MS3. I have reviewed MS 3 documentation and agree with his history, physical, and assessments except where otherwise noted. Patient presents with primary concern about heavy menstrual bleeding. She has already initiated a work-up for irregular menstrual bleeding which included hormone testing at the beginning of the month at [facility]. She has a pending referral to a copper plate printer. She also has significant cramping and pelvic tenderness. She denies any sexual activity, vaginal discharge, or risk for STIs. She was previously on oral control. She has been asked by her primary care team to follow-up with her neurologist regarding control before initiating any new methods of control. Exam: General: Alert, oriented, obese, well-developed, no acute distress Heart: Regular rate and rhythm without murmur Lungs: Clear to auscultation bilaterally with normal effort Abdomen: Soft, mild tenderness over the pelvic region, normal bowel sounds Neuropsych: Alert, oriented, normal mood and affect, no focal deficits Vital signs and labs were unremarkable. Urinalysis was contaminated with menstrual bleeding but was nitrite positive. Urinary tract or vaginal infection cannot be completely excluded. Therefore clindamycin was prescribed. Alternati ve antibiotics were considered but she has multiple antibiotic allergies. Additionally a course of Provera was prescribed to start if the antibiotics do not slow down her bleeding. See discharge instructions. (STEF KHALIL MD) Copy Copies To 1: IAIN PARSONS PETER MED STUDENT Aug 15, 2020 15:54 STEF KHALIL MD Aug 15, 2020 16:47
[2020-08-15 15:55] LABS: HEMATOCRIT 39 % (35-52); HEMOGLOBIN 12.9 G/DL (11.5-16.0); MEAN CORPUSCULAR HEMOGLOBIN 28 PG (25-34); MEAN CORPUSCULAR HGB CONC 33 G/DL (32-36); MEAN CORPUSCULAR VOLUME 28 FL (80-99); WHITE BLOOD COUNT 6.1 10^3/uL (4.3-11.0)
[2020-08-15 15:56] LABS: BASOPHILS % (AUTO) 0 % (0-10); EOSINOPHILS % (AUTO) 0 % (0-10); LYMPHOCYTES # (AUTO) 1.5 X 10^3 (1.0-4.0); LYMPHOCYTES % (AUTO) 25 % (12-44); MEAN PLATELET VOLUME 10.5 FL (7.4-10.4); MONOCYTES # (AUTO) 0.5 X 10^3 (0.0-1.0); MONOCYTES % (AUTO) 8 % (0-12); NEUTROPHILS % (AUTO) 66 % (42-75); PLATELET COUNT 289 10^3/uL (130-400)
[2020-08-15 16:01] LABS: PROTHROMBIN TIME PATIENT 13.1 SEC (12.2-14.7)
[2020-08-15 16:09] LABS: ALBUMIN 4.3 GM/DL (3.2-4.5)
[2020-08-15 16:10] LABS: CHLORIDE 107 MMOL/L (98-107); POTASSIUM 4.5 MMOL/L (3.6-5.0); SODIUM 142 MMOL/L (135-145)
[2020-08-15 16:11] LABS: BILIRUBIN,URINE NEGATIVE (NEGATIVE); CLARITY,URINE TURBID; COLOR,URINE RED; GLUCOSE, URINE (UA) NEGATIVE (NEGATIVE); KETONES,URINE TRACE (NEGATIVE); LEUKOCYTE ESTERASE ,URINE TRACE (NEGATIVE); NITRITE,URINE POSITIVE (NEGATIVE); PROTEIN,URINE 2+ (NEGATIVE)
[2020-08-15 16:11] LABS: CALCIUM 9.4 MG/DL (8.5-10.1)
[2020-08-15 16:12] LABS: GLUCOSE 87 MG/DL (70-105); TOTAL PROTEIN 7.3 GM/DL (6.4-8.2)
[2020-08-15 16:13] LABS: CARBON DIOXIDE 21 MMOL/L (21-32)
[2020-08-15 16:14] LABS: BILIRUBIN,TOTAL 0.3 MG/DL (0.1-1.0)
[2020-08-15 16:15] LABS: ALKALINE PHOSPHATASE 68 U/L (40-136)
[2020-08-15 16:16] LABS: CREATININE SERUM 0.87 MG/DL (0.60-1.30); GFR ESTIMATED > 60
[2020-08-15 16:17] LABS: BUN/CREATININE RATIO 11
[2020-08-15 16:18] LABS: ALANINE AMINOTRANSFERASE 16 U/L (0-55)
[2020-08-15 16:20] LABS: BACTERIA,URINE FEW /HPF; RBC,URINE TNTC /HPF
[2020-08-15] MEDS ORDERED: CLIN300C11 PO (16:46)
[2020-08-15] MEDS ORDERED: MEDR10TA PO (16:47)
[2020-08-15 16:56] VITALS: BP 149/83
== END 2020-08-15 16:55 | disposition home or self-care (01) ==
LOC: EDUNIT# 14:16 → ER 14:17
DX: N92.0 Excessive and frequent menstruation with regular cycle (principal); N39.0 Urinary tract infection, site not specified; E66.9 Obesity, unspecified; G40.909 Epilepsy, unspecified, not intractable, without status epilepticus; Z68.41 Body mass index [BMI] 40.0-44.9, adult; Z88.0 Allergy status to penicillin; Z88.2 Allergy status to sulfonamides; Z88.1 Allergy status to other antibiotic agents; Z88.8 Allergy status to other drugs, medicaments and biological substances; Z79.52 Long term (current) use of systemic steroids
CPT/HCPCS: 36415; 80053; 81000; 84703; 85025; 85610; 85730; 87088

== ENCOUNTER 2020-11-21 15:16 | Emergency (ER) | payer MEDICAID, OTHER ==
[~2020-11-21] VITALS: Ht 165.1 cm; Wt 133.8 kg
[~2020-11-21 15:16] MED LIST changes: +CLIN300C12 PO; +MEDR10TA PO
[2020-11-21] MEDS ORDERED: KETOROLAC 60 MG/2 ML VIAL IM ONE (15:45)
[2020-11-21] MEDS ORDERED: diphenhydrAMINE 50 MG/ML INJ (BENADRYL) IM ONE (15:45)
[2020-11-21] MEDS ORDERED: PROCHLORPERAZINE 10 MG/2ML INJ (COMPAZINE) IM ONE (15:45)
--- NOTE | 2020-11-21 15:54 | ED Headache ---
General Chief Complaint: Head/Cervical Problems Stated Complaint: MIGRAINE / N/V Nursing Triage Note: Pt c/o severe migraine since November 10. Pt reports nausea and vomiting one time today. Pt reports light, sound and olfactory sensitivity. Nursing Sepsis Screen: No Definite Risk Source: patient Exam Limitations: no limitations (ROSITA JIMENEZ) History of Present Illness Date Seen by Provider: Nov 21, 2020 Time Seen by Provider: 15:30 Initial Comments Pt here by private vehicle for a migraine headache wiht associated vomiting. She has a history of migraines for which she is on a nightly medication, but is unsure of the name as well as some naproxen prescribed by her neurologist in [place]. She states that the headache started around November 10 and has been increasing since then with some mild nausea associated. She states the headache was worse today and she had an episode of vomiting after she took some Excedrin. She has been taking some Ibuprofen and Tylenol, but it did not seem to help much. She reports that she took 800mg of Ibuprofen at around 8am and 3 pills of the Tylenol at 9am but she is unsure of the dose. She denies any other associated symptoms currently. Timing/Duration: 1 week, increasing Severity/Quality: mild, constant Location: frontal, temporal Prior Headaches/Recent Trauma: no recent headache/trauma, chronic headaches Associated Symptoms: No fever/chills; nausea/vomiting; No nasal congestion (ROSITA JIMENEZ) Timing/Duration: 1 week, increasing Severity/Quality: mild, moderate, pressure Location: frontal, temporal Associated Symptoms: No fever/chills; nausea/vomiting (RONDA CHASE MD) Allergies and Home Medications Allergies Coded Allergies: cephalexin (Verified Allergy, Severe, soa, 07/13/20) amoxicillin (Verified Allergy, Unknown, 04/06/19) carbamazepine (Verified Allergy, Unknown, 04/06/19) shellfish derived (Verified Allergy, Unknown, 07/20/19) Penicillins (Unverified Adverse Reaction, Intermediate, 04/06/19) Sulfa (Sulfonamide Antibiotics) (Unverified Adverse Reaction, Intermediate, 04/06/19) Home Medications Butalb/Acetaminophen/Caffeine 1 Each Capsule, 2 EACH PO Q6H PRN for headache Prescribed by: CELIA HUGHES on 12/17/19 1631 Clindamycin HCl 300 Mg Capsule, 300 MG PO TID Prescribed by: STEF NAVAS on 08/15/20 1646 Levetiracetam 1,000 Mg Tablet, 1,000 MG PO TID, (Reported) Medroxyprogesterone Acetate 10 Mg Tablet, 10 MG PO DAILY Prescribed by: STEF NAVAS on 08/15/20 1647 Mometasone Furoate 45 Gm Cream..g., 45 GM TP TID Prescribed by: SHAQ OLSEN on 03/10/20 023 Ofloxacin 5 Ml Drops, 3 DROPS RIGHT EAR BID Prescribed by: CELIA HUGHES on 07/05/20 1426 Prednisone 20 Mg Tab, 40 MG PO DAILY Prescribed by: SHAQ OLSEN on 03/10/20231 Patient Home Medication List Home Medication List Reviewed: Yes (RONDA CHASE MD) Review of Systems Review of Systems Constitutional: No chills, No fever Respiratory: No cough, No short of breath Cardiovascular: No chest pain, No edema Gastrointestinal: No abdominal pain, No constipation, No diarrhea; nausea, vomiting Genitourinary: No dysuria, No hematuria Musculoskeletal: No back pain, No neck pain Psychiatric/Neurological: Headache; Denies Numbness, Denies Tingling (ROSITA JIMENEZ) All Other Systems Reviewed Negative Unless Noted: Yes (RONDA CHASE MD) Past Vyljakr-Crydjn-Opbmqn Hx Past Med/Social Hx: Reviewed Nursing Past Med/Soc Hx (RONDA CHASE MD) Patient Social History Alcohol Use: Denies Use Number of Drinks Today: AA Alcohol Beverage of Choice: Beer Smoking Status: Former Smoker Type Used: Cigarettes Former Smoker, Quit: Oct 20, 2011 2nd Hand Smoke Exposure: No Recent Infectious Disease Expo: No Recent Hopitalizations: No (ROSITA JIMENEZ) Immunizations Up To Date Tetanus Booster (TDap): Less than 5yrs PED Vaccines UTD: Yes Date of Pneumonia Vaccine: Apr 19, 2012 Date of Influenza Vaccine: Apr 19, 2012 (ROSITA JIMENEZ) Seasonal Allergies Seasonal Allergies: Yes (ROSITA JIMENEZ) Past Medical History Surgeries: Yes Adenoidectomy, Ear Surgery, Nephrectomy, Renal, Tonsillectomy Respiratory: No Cardiac: Yes High Cholesterol, Hypertension Neurological: Yes (SEE BELOW) Headaches /Migraines, Seizure Disorder Reproductive Disorders: No Genitourinary: Yes Bladder Infection Gastrointestinal: No Musculoskeletal: No Endocrine: No HEENT: Yes (S/P BMT'S; DECREASED HEARING IN BOTH EAR;BENIGN TUMOR-ROOF OF MOUTH REMOVED) Chronic Ear Infection Hearing Impairment: Hard of Hearing Cancer: No Psychosocial: Yes Anxiety, Depression Integumentary: No Blood Disorders: No (ROSITA JIMENEZ) Family Medical History Reviewed Nursing Family Hx (RONDA CHASE MD) No Pertinent Family Hx PMH: -HAD SEIZURES CHILD AND WAS ON MEDICATIONS UNTIL AGE 10; NO SEIZURES FOR YEARS, THEN STARTED HAVING SEIZURES AGAIN 10/2017, AND HAS BEEN BACK ON SEIZURE MEDICATIONS SINCE THEN. THEY POSSIBLY HAVE BEEN RELATED TO MIGRAINES, BUT ON PREVIOUS ER VISITS, THE SEIZURES HAVE BEEN ALL SELF-REPORTED AND NOT WITNESSED PSH: -BMT'S -REMOVAL OF BENIGN TUMOR FROM ROOF OF MOUTH -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 -TONSILLECTOMY AND ADENOIDECTOMY (ROSITA JIMENEZ) Physical Exam Vital Signs Vital Signs - First Documented 11/21/20 15:25 Temp 37.0 Pulse 85 Resp 20 B/P (MAP) 140/83 (102) Pulse Ox 96 O2 Delivery Room Air (RONDA CHASE MD) Vital Signs Capillary Refill : Less Than 3 Seconds (ROSITA JIMENEZ) Height, Weight, BMI Height: 5'5.00" Weight: 260lbs. 0oz. 117.911352fk; 49.00 BMI Method:Actual General Appearance: WD/WN, no apparent distress HEENT: PERRL/EOMI, TMs normal Neck: non-tender, full range of motion, supple, normal inspection Cardiovascular: normal peripheral pulses, regular rate, rhythm Respiratory: chest non-tender, lungs clear, normal breath sounds Gastrointestinal: non tender, soft Back: normal inspection, no CVA tenderness, no vertebral tenderness Extremities: normal range of motion, no pedal edema, no calf tenderness Psychiatric: alert, oriented x 3 [place] Nerves: normal hearing, normal speech, PERRL Motor/Sensory: no motor deficit, no sensory deficit Skin: normal color, warm/dry (ROSITA JIMENEZ) General Appearance: WD/WN, no apparent distress, obese Neck: non-tender, full range of motion, supple, normal inspection Cardiovascular: regular rate, rhythm, no murmur Respiratory: lungs clear, normal breath sounds Gastrointestinal: non tender, soft Psychiatric: alert, oriented x 3 Crainal Nerves: normal hearing, normal speech, PERRL Coordination/Gait: normal gait Motor/Sensory: no motor deficit, no sensory deficit Skin: normal color, warm/dry (RONDA CHASE MD) Progress/Results/Core Measures Results/Orders Medications Given in ED Current Medications Medications Dose Ordered Sig/Kayode Route Start Time Stop Time Status Last Admin Dose Admin Diphenhydramine HCl 25 mg ONCE ONCE IM 11/21/20 15:45 11/21/20 15:46 DC 11/21/20 16:13 25 MG Ketorolac Tromethamine 60 mg ONCE ONCE IM 11/21/20 15:45 11/21/20 15:46 DC 11/21/20 16:15 60 MG Prochlorperazine Edisylate 10 mg ONCE ONCE IM 11/21/20 15:45 11/21/20 15:46 DC 11/21/20 16:16 10 MG (RONDA CHASE MD) Vital Signs/I&O 11/21/20 15:25 Temp 37.0 Pulse 85 Resp 20 B/P (MAP) 140/83 (102) Pulse Ox 96 O2 Delivery Room Air (RONDA CHASE MD) Blood Pressure Mean: 102 Progress Progress Note : Progress Note 1355: Pt reports headache with history of migraines currently treated with a nightly medication, Ordered migraine cocktail Bendaryl, Compazine, Toradol. Will monitor patient. (ROSITA JIMENEZ) Progress Note : Progress Note I have seen and evaluated the patient and agree with above except as indicated. I have directed the plan of care. Patient is here with typical migraine headache although it may be a little worse today. She has talked with her ne urologist and tried her typical medications which have not helped. Denies fever chills. Does have nausea and vomiting associated with a headache. Pain was worsening and she had the vomiting that continued despite Zofran so she decided to present to the emergency department after direction from her neurologist. Evaluation as above. Plan: We will initiate Benadryl 25 mg IM, Compazine 10 mg IM and Toradol 60 mg IM as this has worked in the past and patient agrees. Monitor patient. 10/26/2004: Patient doing much better and states that she feels like she can go home. Discharged home with return precautions. Patient verbalized understanding of instructions and agreement with plan.. (RONDA CHASE MD) Departure Impression Primary Impression: Migraine Qualified Codes: G43.909 - Migraine, unspecified, not intractable, without status migrainosus Disposition: HOME, SELF-CARE Condition: Improved Departure-Patient Inst. Decision time for Depature: 17:06 (RONDA CHASE MD) Referrals: [facility] [place]) Primary Care Physician NAZANIN MOTA APRN (Family) Primary Care Physician Patient Instructions: Migraines (DC) Add. Discharge Instructions: All discharge instructions reviewed with patient and/or family. Voiced understanding. Continue home medications as previously prescribed. Follow-up with your neurologist for recheck and further evaluation within the next week or so. Get plenty of rest and drink plenty of fluids. Eat a normal diet. Return for worse pain, fever, vomiting, weakness, breathing problems, vision or balance problems or other concerns as needed. ROSITA JIMENEZ Nov 21, 2020 15:54 RONDA CHASE MD Nov 21, 2020 17:06
[2020-11-21 17:10] VITALS: BP 140/83
== END 2020-11-21 17:10 | disposition home or self-care (01) ==
LOC: EDUNIT# 15:16 → ER 15:19
DX: G43.909 Migraine, unspecified, not intractable, without status migrainosus (principal); E66.9 Obesity, unspecified; G40.909 Epilepsy, unspecified, not intractable, without status epilepticus; Z68.42 Body mass index [BMI] 45.0-49.9, adult; Z87.891 Personal history of nicotine dependence; Z88.2 Allergy status to sulfonamides; Z88.0 Allergy status to penicillin; Z88.1 Allergy status to other antibiotic agents; Z88.8 Allergy status to other drugs, medicaments and biological substances; Z79.52 Long term (current) use of systemic steroids
CPT/HCPCS: 99284

== ENCOUNTER 2020-11-29 17:07 | Emergency (ER) | payer OTHER ==
[~2020-11-29] VITALS: Ht 165.1 cm; Wt 136.5 kg
[2020-11-29] MEDS ORDERED: PROCHLORPERAZINE 10 MG/2ML INJ (COMPAZINE) IM ONE (17:45)
[2020-11-29] MEDS ORDERED: KETOROLAC 60 MG/2 ML VIAL IM ONE (17:45)
[2020-11-29] MEDS ORDERED: diphenhydrAMINE 50 MG/ML INJ (BENADRYL) IM ONE (17:45)
--- NOTE | 2020-11-29 17:55 | ED Headache ---
General Stated Complaint: MIGRAINE / TUNNEL VISION Source: patient Exam Limitations: no limitations History of Present Illness Date Seen by Provider: Nov 29, 2020 Time Seen by Provider: 17:40 Initial Comments To ER with reports of migraine and tunnel vision. Similar to all of her previous migraines. This 1 just will not go away Timing/Duration: 1 week Severity/Quality: constant Location: global Prior Headaches/Recent Trauma: frequent headaches Associated Symptoms: nausea/vomiting Allergies and Home Medications Allergies Coded Allergies: cephalexin (Verified Allergy, Severe, soa, 07/13/20) amoxicillin (Verified Allergy, Unknown, 04/06/19) carbamazepine (Verified Allergy, Unknown, 04/06/19) shellfish derived (Verified Allergy, Unknown, 07/20/19) Penicillins (Unverified Adverse Reaction, Intermediate, 04/06/19) Sulfa (Sulfonamide Antibiotics) (Unverified Adverse Reaction, Intermediate, 04/06/19) Home Medications Butalb/Acetaminophen/Caffeine 1 Each Capsule, 2 EACH PO Q6H PRN for headache Prescribed by: CELIA HUGHES on 12/17/19 1631 Clindamycin HCl 300 Mg Capsule, 300 MG PO TID Prescribed by: STEF NAVAS on 08/15/20 1646 Levetiracetam 1,000 Mg Tablet, 1,000 MG PO TID, (Reported) Medroxyprogesterone Acetate 10 Mg Tablet, 10 MG PO DAILY Prescribed by: STEF NAVAS on 08/15/20 1647 Mometasone Furoate 45 Gm Cream..g., 45 GM TP TID Prescribed by: SHAQ OLSEN on 03/10/20 0232 Ofloxacin 5 Ml Drops, 3 DROPS RIGHT EAR BID Prescribed by: CELIA HUGHES on 07/05/20 1426 Prednisone 20 Mg Tab, 40 MG PO DAILY Prescribed by: SHAQ OLSEN on 03/10/20 023 Patient Home Medication List Home Medication List Reviewed: Yes Review of Systems Review of Systems Constitutional: see HPI Eyes: No Symptoms Reported Ears, Nose, Mouth, Throat: no symptoms reported Respiratory: no symptoms reported Cardiovascular: no symptoms reported Genitourinary: no symptoms reported Musculoskeletal: no symptoms reported Skin: no symptoms reported Psychiatric/Neurological: No Symptoms Reported Past Dehvoxv-Dwdfeh-Kivxmt Hx Patient Social History Alcohol Beverage of Choice: Beer Type Used: Cigarettes Former Smoker, Quit: Oct 20, 2011 2nd Hand Smoke Exposure: No Recent Hopitalizations: No Immunizations Up To Date Tetanus Booster (TDap): Less than 5yrs PED Vaccines UTD: Yes Date of Pneumonia Vaccine: Apr 19, 2012 Date of Influenza Vaccine: Apr 19, 2012 Seasonal Allergies Seasonal Allergies: Yes Past Medical History Surgeries: Yes Adenoidectomy, Ear Surgery, Nephrectomy, Renal, Tonsillectomy Respiratory: No Cardiac: Yes High Cholesterol, Hypertension Neurological: Yes (SEE BELOW) Headaches /Migraines, Seizure Disorder Reproductive Disorders: No Genitourinary: Yes Bladder Infection Gastrointestinal: No Musculoskeletal: No Endocrine: No HEENT: Yes (S/P BMT'S; 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 THEY POSSIBLY HAVE BEEN RELATED TO MIGRAINES, BUT ON PREVIOUS ER VISITS, THE SEIZURES HAVE BEEN ALL SELF-REPORTED AND NOT WITNESSED PSH: -BMT'S -REMOVAL OF BENIGN TUMOR FROM ROOF OF MOUTH -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 -TONSILLECTOMY AND ADENOIDECTOMY Physical Exam Vital Signs Vital Signs - First Documented 11/29/20 17:39 Temp 36.8 Pulse 93 Resp 20 B/P (MAP) 159/94 (115) Pulse Ox 94 O2 Delivery Room Air Capillary Refill : Height, Weight, BMI Height: 5'5.00" Weight: 260lbs. 0oz. 117.755875fh; 49.00 BMI Method:Actual General Appearance: WD/WN, no apparent distress HEENT: PERRL/EOMI, normal ENT inspection Neck: non-tender, full range of motion Respiratory: lungs clear, normal breath sounds, no respiratory distress, no ac cessory muscle use Gastrointestinal: normal bowel sounds, non tender Extremities: normal range of motion, non-tender Psychiatric: alert, oriented x 3 Skin: normal color, warm/dry Progress/Results/Core Measures Results/Orders My Orders Orders - CELIA HUGHES APRN Ketorolac Injection (Toradol Injection) (11/29/20 17:45) Prochlorperazine Injection (Compazine In (11/29/20 17:45) Diphenhydramine Injection (Benadryl Inje (11/29/20 17:45) Medications Given in ED Current Medications Medications Dose Ordered Sig/Kayode Route Start Time Stop Time Status Last Admin Dose Admin Diphenhydramine HCl 50 mg ONCE ONCE IM 11/29/20 17:45 11/29/20 17:46 DC 11/29/20 18:50 50 MG Ketorolac Tromethamine 60 mg ONCE ONCE IM 11/29/20 17:45 11/29/20 17:46 DC 11/29/20 18:50 60 MG Prochlorperazine Edisylate 10 mg ONCE ONCE IM 11/29/20 17:45 11/29/20 17:46 DC 11/29/20 18:50 10 MG Vital Signs/I&O 11/29/20 17:39 Temp 36.8 Pulse 93 Resp 20 B/P (MAP) 159/94 (115) Pulse Ox 94 O2 Delivery Room Air Departure Communication (Admissions) 1939-alert and oriented states that her headache is better. We will discharge to home. Impression Primary Impression: Headache Qualified Codes: R51.9 - Headache, unspecified Disposition: 01 HOME, SELF-CARE Condition: Stable Departure-Patient Inst. Decision time for Depature: 17:54 Referrals: [facility] [place] Primary Care Physician NAZANIN MOTA APRN (Family) Primary Care Physician Patient Instructions: Headache, Adult Add. Discharge Instructions: 1. Return to ER for any concerns 2. Call your doctor tomorrow for further evaluation given the increasing frequency of your headaches. CELIA HUGHES APRN Nov 29, 2020 17:55
[2020-11-29 19:40] VITALS: BP 135/87
== END 2020-11-29 19:42 | disposition home or self-care (01) ==
LOC: EDUNIT# 17:07 → ER 17:09
DX: R51.9 Headache, unspecified (principal); G40.909 Epilepsy, unspecified, not intractable, without status epilepticus; Z88.0 Allergy status to penicillin; Z88.1 Allergy status to other antibiotic agents; Z88.2 Allergy status to sulfonamides; Z88.8 Allergy status to other drugs, medicaments and biological substances; Z87.891 Personal history of nicotine dependence; Z79.52 Long term (current) use of systemic steroids
CPT/HCPCS: 99284

== ENCOUNTER 2020-12-29 16:45 | Emergency (ER) | payer OTHER ==
[~2020-12-29] VITALS: Ht 165.1 cm; Wt 134.3 kg
[~2020-12-29 16:45] MED LIST changes: -CIPR500T4 PO; +CIPR500T5 PO
[2020-12-29 17:06] VITALS: BP 176/112
--- NOTE | 2020-12-29 17:07 | ED Head Injury ---
General Chief Complaint: Head/Cervical Problems Stated Complaint: MIGRAINE Source: patient Exam Limitations: no limitations History of Present Illness Date Seen by Provider: Dec 29, 2020 Time Seen by Provider: 17:14 Initial Comments 25-year-old female with a history of migraines presents with a migraine. Reports that it started 3 days ago. It is affecting her vision. She has been having migraines since she was a little girl. She sees a specialist up in [facility]. She reports her home medications a Tylenol, naproxen and amitriptyline have not helped. She last took something about 2-1/2 hours ago. Allergies and Home Medications Allergies Coded Allergies: cephalexin (Verified Allergy, Severe, soa, 07/13/20) amoxicillin (Verified Allergy, Unknown, 04/06/19) carbamazepine (Verified Allergy, Unknown, 04/06/19) shellfish derived (Verified Allergy, Unknown, 07/20/19) Penicillins (Unverified Adverse Reaction, Intermediate, 04/06/19) Sulfa (Sulfonamide Antibiotics) (Unverified Adverse Reaction, Intermediate, 04/06/19) Home Medications Butalb/Acetaminophen/Caffeine 1 Each Capsule, 2 EACH PO Q6H PRN for headache Prescribed by: CELIA HUGHES on 12/17/19 1631 Clindamycin HCl 300 Mg Capsule, 300 MG PO TID Prescribed by: STEF NAVAS on 08/15/20 1646 Levetiracetam 1,000 Mg Tablet, 1,000 MG PO TID, (Reported) Medroxyprogesterone Acetate 10 Mg Tablet, 10 MG PO DAILY Prescribed by: STEF NAVAS on 08/15/20 1647 Mometasone Furoate 45 Gm Cream..g., 45 GM TP TID Prescribed by: SHAQ OLSEN on 03/10/20 023 Ofloxacin 5 Ml Drops, 3 DROPS RIGHT EAR BID Prescribed by: CELIA HUGHES on 07/05/20 1426 Prednisone 20 Mg Tab, 40 MG PO DAILY Prescribed by: SHAQ OLSEN on 03/10/20 023 Patient Home Medication List Home Medication List Reviewed: Yes Review of Systems Review of Systems Constitutional: No chills, No fever Eyes: See HPI Ears, Nose, Mouth, Throat: no symptoms reported Respiratory: no symptoms reported Cardiovascular: no symptoms reported Gastrointestinal: no symptoms reported Genitourinary: no symptoms reported Musculoskeletal: no symptoms reported Skin: no symptoms reported Psychiatric/Neurological: See HPI, Headache Endocrine: No Symptoms Reported Past Qbkdbvw-Rqbqyc-Cqllqj Hx Past Med/Social Hx: Reviewed Nursing Past Med/Soc Hx Patient Social History Alcohol Beverage of Choice: Beer Type Used: Cigarettes Former Smoker, Quit: Oct 20, 2011 2nd Hand Smoke Exposure: No Recent Hopitalizations: No Immunizations Up To Date Tetanus Booster (TDap): Less than 5yrs PED Vaccines UTD: Yes Date of Pneumonia Vaccine: Apr 19, 2012 Date of Influenza Vaccine: Apr 19, 2012 Seasonal Allergies Seasonal Allergies: Yes Past Medical History Surgeries: Yes Adenoidectomy, Ear Surgery, Nephrectomy, Renal, Tonsillectomy Respiratory: No Cardiac: Yes High Cholesterol, Hypertension Neurological: Yes (SEE BELOW) Headaches /Migraines, Seizure Disorder Reproductive Disorders: No Genitourinary: Yes Bladder Infection Gastrointestinal: No Musculoskeletal: No Endocrine: No HEENT: Yes (S/P BMT'S; 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 THEY POSSIBLY HAVE BEEN RELATED TO MIGRAINES, BUT ON PREVIOUS ER VISITS, THE SEIZURES HAVE BEEN ALL SELF-REPORTED AND NOT WITNESSED PSH: -BMT'S -REMOVAL OF BENIGN TUMOR FROM ROOF OF MOUTH -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 -TONSILLECTOMY AND ADENOIDECTOMY Physical Exam Vital Signs Vital Signs - First Documented 12/29/20 17:06 Temp 36.8 Pulse 104 Resp 20 B/P (MAP) 176/112 (133) Pulse Ox 95 O2 Delivery Room Air Capillary Refill : Height, Weight, BMI Height: 5'5.00" Weight: 260lbs. 0oz. 117.256913lv; 50.00 BMI Method:Actual General Appearance: no apparent distress HEENT: PERRL/EOMI Neck: full range of motion, supple Cardiovascular: normal peripheral pulses, regular rate, rhythm Respiratory: lungs clear, normal breath sounds Gastrointestinal: non tender, soft Extremities: non-tender, normal inspection Psychiatric: alert, oriented x 3 Cra[place] Nerves: normal speech Coordination/Gait: normal gait Motor/Sensory: no motor deficit, no sensory deficit Skin: normal color, warm/dry Progress/Results/Core Measures Results/Orders My Orders Orders - AMAIRANI WALDRON DO Ketorolac Injection (Toradol Injection) (12/29/20 17:16) Metoclopramide Injection (Reglan Injecti (12/29/20 17:16) Dexamethasone Injection (Decadron Inje (12/29/20 17:45) Diphenhydramine Injection (Benadryl Inje (12/29/20 17:45) Vital Signs/I&O 12/29/20 17:06 Temp 36.8 Pulse 104 Resp 20 B/P (MAP) 176/112 (133) Pulse Ox 95 O2 Delivery Room Air Departure Impression Primary Impression: Migraine Qualified Codes: G43.901 - Migraine, unspecified, not intractable, with status migrainosus Disposition: 01 HOME, SELF-CARE Condition: Stable Departure-Patient Inst. Referrals: [facility] (PCP) Primary Care Physician NAZANIN MOTA APRN (Family) Primary Care Physician Patient Instructions: Migraines in Adults Add. Discharge Instructions: Follow-up with your primary care provider and neurologist if Migraines become more persistent or recurrent All discharge instructions reviewed with patient and/or family. Voiced understanding. AMAIRANI WALDRON DO Dec 29, 2020 17:07
[2020-12-29] MEDS ORDERED: KETOROLAC 60 MG/2 ML VIAL IM STA (17:16)
[2020-12-29] MEDS ORDERED: METOCLOPRAMIDE INJ 10 MG/2 ML (REGLAN) IM STA (17:16)
[2020-12-29] MEDS ORDERED: diphenhydrAMINE 50 MG/ML INJ (BENADRYL) IV STA (17:16)
[2020-12-29] MEDS ORDERED: diphenhydrAMINE 50 MG/ML INJ (BENADRYL) IM ONE (17:45)
== END 2020-12-29 18:05 | disposition home or self-care (01) ==
LOC: EDUNIT# 16:45 → ER 16:46
DX: G43.901 Migraine, unspecified, not intractable, with status migrainosus (principal); G40.909 Epilepsy, unspecified, not intractable, without status epilepticus; Z86.018 Personal history of other benign neoplasm; Z87.891 Personal history of nicotine dependence; Z88.0 Allergy status to penicillin; Z88.1 Allergy status to other antibiotic agents; Z88.2 Allergy status to sulfonamides; Z88.8 Allergy status to other drugs, medicaments and biological substances; Z79.3 Long term (current) use of hormonal contraceptives; Z79.1 Long term (current) use of non-steroidal anti-inflammatories (NSAID); Z79.52 Long term (current) use of systemic steroids; Z79.899 Other long term (current) drug therapy
CPT/HCPCS: 99284

== ENCOUNTER 2021-01-14 22:37 | Emergency (ER) | payer OTHER ==
[~2021-01-14] VITALS: Ht 165 cm; Wt 138.9 kg
--- NOTE | 2021-01-14 23:02 | ED General ---
General Stated Complaint: BACK PAIN;FALL Source of Information: Patient, Old Records History of Present Illness Date Seen by Provider: Jan 14, 2021 Time Seen by Provider: 22:43 Initial Comments PT ARRIVES VIA POV FROM HOME STATES SHE WAS WALKING HOME FROM [place], AND THINKS SHE "BLACKED OUT" "FOR A SECOND OR TWO", LANDING ON HER BACK ON CONCRETE SIDEWALK. WAS NOT WITNESSED AND WAS ABLE TO CONTINUE WALKING BACK HOME. STATES THIS OCCURRED IMMEDIATELY PRIOR TO ARRIVAL AND CAME STRAIGHT HERE STATES SHE DID NOT HIT HER HEAD C/O PAIN TO ENTIRE BACK STATES HER LEGS FEEL NUMB AND HER FEET FEEL TINGLY--MORE ON LEFT THAN RIGHT. PT ABLE TO WALK INTO ER WITHOUT DIFFICULTY--NO WEAKNESS NO LOSS OF BOWELS OR BLADDER NO HEADACHE NO WOUNDS ANYWHERE NO VISION CHANGES NO NAUSEA/VOMITING NO DIZZINESS NO OTHER INJURIES OR AREAS OF PAIN --ONLY C/O PAIN TO HER BACK NO FEVER OR RECENT ILLNESS DENIES ALL COVID-19 SYMPTOMS, AND STATES SHE HAD HER FIRST COVID VACCINE 1 WEEK AGO PT WITH MULTITUDE OF VISITS--MANY FOR HEADACHES, AND SOME FOR SELF-REPORTED SEIZURES DOES NOT KNOW IF SHE HAD A SEIZURE TONIGHT WHEN THIS OCCURRED DENIES ANY POST ICTAL SYMPTOMS WITH THIS EPISODE PT STATES SHE HAS SEEN A SPECIALIST AT FOR HER REPORT OF CHRONIC HEADACHES AND SELF REPORTED SEIZURE ACTIVITY. HAS NOT HAD AN EEG OR ANY OTHER TESTS TO VERIFY IF SHE HAS HAD SEIZURES, STATES "THEY TRIED TO BUT I COULDN'T DO IT-I HAD A REACTION TO THE ADHESIVE" PT STATES SHE TAKES TRILEPTAL AND KEPPRA FOR THIS PROBLEM. PT ALSO WITH FAIRLY EXTENSIVE PSYCH HISTORY AND MOST OF THESE SELF-REPORTED SEIZURES HAVE BEEN RELATED TO STRESS, AND WITH HER MIGRAINES. PT STATES SHE HAS BEEN UNDER ALOT OF STRESS LATELY. PT IS CURRENTLY LIVING WITH HER FATHER. LMP --ENDED 2 DAYS AGO. ON OCP'S PCP: LOREN-MIGUELINA Allergies and Home Medications Allergies Coded Allergies: cephalexin (Verified Allergy, Severe, soa, 07/13/20) amoxicillin (Verified Allergy, Unknown, 04/06/19) carbamazepine (Verified Allergy, Unknown, 04/06/19) shellfish derived (Verified Allergy, Unknown, 07/20/19) Penicillins (Unverified Adverse Reaction, Intermediate, 04/06/19) Sulfa (Sulfonamide Antibiotics) (Unverified Adverse Reaction, Intermediate, 04/06/19) Home Medications Butalb/Acetaminophen/Caffeine 1 Each Capsule, 2 EACH PO Q6H PRN for headache Prescribed by: CELIA HUGHES on 12/17/19 1631 Clindamycin HCl 300 Mg Capsule, 300 MG PO TID Prescribed by: STEF NAVAS on 08/15/20 1646 Cyclobenzaprine HCl 10 Mg Tablet, 10 MG PO Q8H PRN for SPASMS Prescribed by: SHAQ OLSEN on 01/15/21 0025 Levetiracetam 1,000 Mg Tablet, 1,000 MG PO TID, (Reported) Medroxyprogesterone Acetate 10 Mg Tablet, 10 MG PO DAILY Prescribed by: STEF NAVAS on 08/15/20 1647 Mometasone Furoate 45 Gm Cream..g., 45 GM TP TID Prescribed by: SHAQ OLSEN on 03/10/20 023 Ofloxacin 5 Ml Drops, 3 DROPS RIGHT EAR BID Prescribed by: CELIA HUGHES on 07/05/20 1426 Prednisone 20 Mg Tab, 40 MG PO DAILY Prescribed by: SHAQ OLSEN on 03/10/20 023 Patient Home Medication List Home Medication List Reviewed: Yes Review of Systems Review of Systems Constitutional: no symptoms reported; No chills, No diaphoresis, No dizziness, No fever, No malaise, No weakness EENTM: no symptoms reported Respiratory: no symptoms reported Cardiovascular: no symptoms reported Gastrointestinal: no symptoms reported Genitourinary: no symptoms reported LMP: Jan 08, 2021 Musculoskeletal: see HPI, back pain Skin: no symptoms reported Psychiatric/Neurological: See HPI; Denies Headache; Numbness, Paresthesia, Tingling; Denies Weakness Hematologic/Lymphatic: No Symptoms Reported Immunological/Allergic: no symptoms reported Past Lrekyrz-Gwjgaf-Ssccva Hx Past Med/Social Hx: Reviewed and Corrections made Patient Social History Alcohol Use: Occasionally Uses Alcohol Beverage of Choice: Beer Drug of Choice: DENIES Smoking Status: Former Smoker Type Used: Cigarettes Former Smoker, Quit: Oct 20, 2011 2nd Hand Smoke Exposure: No Recent Hopitalizations: No Immunizations Up To Date Tetanus Booster (TDap): Less than 5yrs PED Vaccines UTD: Yes Date of Pneumonia Vaccine: Apr 19, 2012 Date of Influenza Vaccine: Apr 19, 2012 Seasonal Allergies Seasonal Allergies: Yes Past Medical History Surgeries: Yes (SEE BELOW) Adenoidectomy, Ear Surgery, Nephrectomy, Renal, Tonsillectomy Respiratory: No Cardiac: Yes High Cholesterol, Hypertension Neurological: Yes (SEE BELOW) Headaches /Migraines, Seizure Disorder Reproductive Disorders: No Genitourinary: Yes Bladder Infection Gastrointestinal: No Musculoskeletal: No Endocrine: Yes (MORBIDOBESITY) HEENT: Yes (S/P BMT'S; DECREASED HEARING IN BOTH EAR;BENIGN TUMOR-ROOF OF MOUTH REMOVED) Chronic Ear Infection Hearing Impairment: Hard of Hearing Cancer: No Psychosocial: Yes Anxiety, Depression Integumentary: No Blood Disorders: No Family Medical History No Pertinent Family Hx SOCIAL HISTORY: -ETOH--OCCASIONAL USE -DRUGS--DENIES USE -SMOKING--QUIT 2011 PMH: -HAD SEIZURES CHILD AND WAS ON MEDICATIONS UNTIL AGE 10; NO SEIZURES FOR YEARS, THEN STARTED HAVING SEIZURES AGAIN 10/2017, AND HAS BEEN BACK ON SEIZURE MEDICATIONS SINCE THEN. THEY POSSIBLY HAVE BEEN RELATED TO MIGRAINES, BUT ON PREVIOUS ER VISITS, THE SEIZURES HAVE BEEN ALL SELF-REPORTED AND NOT WITNESSED PSH: -BMT'S -REMOVAL OF BENIGN TUMOR FROM ROOF OF MOUTH -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 -TONSILLECTOMY AND ADENOIDECTOMY Physical Exam Vital Signs Vital Signs - First Documented 01/14/21 22:41 Temp 36.7 Pulse 113 Resp 20 B/P (MAP) 169/100 (123) Pulse Ox 96 O2 Delivery Room Air Capillary Refill : Height, Weight, BMI Height: 5'5.00" Weight: 260lbs. 0oz. 117.532812xz; 49.00 BMI Method:Actual General Appearance: No Apparent Distress, WD/WN, Anxious (MILDLY ), Obese, Other (HAIR DYED LIGHT PURPLE; AMBULATES AND MOVES WITHOUT DIFFICULTY. NOT POST- ICTAL, NO INCONTINENCE. NO EXTERNAL EVIDENCE OF TRAUMA. ) HEENT: PERRL/EOMI, TMs Normal, Normal ENT Inspection, Pharynx Normal Neck: Full Range of Motion, Normal Inspection, Non Tender, Supple Respiratory: Chest Non Tender, Normal Breath Sounds, No Accessory Muscle Use, No Respiratory Distress Cardiovascular: Regular Rate, Rhythm, No JVD, No Murmur, Normal Peripheral Pulses Gastrointestinal: Non Tender, Soft Back: Other (DIFFUSE TENDERNESS TO BACK) Extremity: Normal Capillary Refill, Normal Inspection, Normal Range of Motion, Non Tender, No Calf Tenderness, No Pedal Edema Neurologic/Psychiatric: Alert, Oriented x3, No Motor/Sensory Deficits, dot compliance manager II- XII Norm as Tested; No Abnormal Cerebellar Tests Skin: Normal Color, Warm/Dry, Other (NO EXTERNAL EVIDENCE OF TRAUMA) Progress/Results/Core Measures Suspected Sepsis SIRS Temperature: Pulse: Respiratory Rate: Laboratory Tests 01/14/21 23:05: White Blood Count 7.2 Blood Pressure / Mean: Laboratory Tests 01/14/21 23:05: Creatinine 0.85, INR Comment 0.9, Platelet Count 300, Total Bilirubin 0.2 Results/Orders Lab Results Laboratory Tests Test 01/14/21 23:05 01/14/21 23:13 Range/Units White Blood Count 7.2 4.3-11.0 10^3/uL Red Blood Count 4.18 3.80-5.11 10^6/uL Hemoglobin 11.5 11.5-16.0 g/dL Hematocrit 36 35-52 % Mean Corpuscular Volume 85 80-99 fL Mean Corpuscular Hemoglobin 28 25-34 pg Mean Corpuscular Hemoglobin Concent 32 32-36 g/dL Red Cell Distribution Width 13.6 10.0-14.5 % Platelet Count 300 130-400 10^3/uL Mean Platelet Volume 10.1 9.0-12.2 fL Immature Granulocyte % (Auto) 4 % Neutrophils (%) (Auto) 61 42-75 % Lymphocytes (%) (Auto) 26 12-44 % Monocytes (%) (Auto) 8 0-12 % Eosinophils (%) (Auto) 0 0-10 % Basophils (%) (Auto) 1 0-10 % Neutrophils # (Auto) 4.4 1.8-7.8 10^3/uL Lymphocytes # (Auto) 1.8 1.0-4.0 10^3/uL Monocytes # (Auto) 0.6 0.0-1.0 10^3/uL Eosinophils # (Auto) 0.0 0.0-0.3 10^3/uL Basophils # (Auto) 0.1 0.0-0.1 10^3/uL Immature Granulocyte # (Auto) 0.3 H 0.0-0.1 10^3/uL Prothrombin Time 12.6 12.2-14.7 SEC INR Comment 0.9 0.8-1.4 Activated Partial Thromboplast Time 25 24-35 SEC Sodium Level 138 135-145 MMOL/L Potassium Level 3.9 3.6-5.0 MMOL/L Chloride Level 104 98-107 MMOL/L Carbon Dioxide Level 22 21-32 MMOL/L Anion Gap 12 5-14 MMOL/L Blood Urea Nitrogen 16 7-18 MG/DL Creatinine 0.85 0.60-1.30 MG/DL Estimat Glomerular Filtration Rate > 60 BUN/Creatinine Ratio 19 Glucose Level 171 H 70-105 MG/DL Glucometer 166 H 70-110 MG/DL Calcium Level 9.0 8.5-10.1 MG/DL Corrected Calcium 9.2 8.5-10.1 MG/DL Magnesium Level 1.8 1.6-2.4 MG/DL Total Bilirubin 0.2 0.1-1.0 MG/DL Aspartate Amino Transf (AST/SGOT) 19 5-34 U/L Alanine Aminotransferase (ALT/SGPT) 22 0-55 U/L Alkaline Phosphatase 68 40-136 U/L Total Creatine Kinase 22 L 29-168 U/L Creatine Kinase MB 0.3 <6.6 NG/ML Myoglobin 20.0 10.0-92.0 NG/ML Troponin I < 0.028 <0.028 NG/ML Total Protein 6.6 6.4-8.2 GM/DL Albumin 3.8 3.2-4.5 GM/DL TSH [place] Testing 3.28 0.35-4.94 UIU/ML Serum Test, Qualitative NEGATIVE NEGATIVE Acetaminophen Level < 10 L 10-30 UG/ML Serum Alcohol < 10 <10 MG/DL Urine Color YELLOW Urine Clarity CLEAR Urine pH 6.0 5-9 Urine Specific [place] 1.020 1.016-1.022 Urine Protein NEGATIVE NEGATIVE Urine Glucose (UA) NEGATIVE NEGATIVE Urine Ketones NEGATIVE NEGATIVE Urine Nitrite NEGATIVE NEGATIVE Urine Bilirubin NEGATIVE NEGATIVE Urine Urobilinogen 0.2 < = 1.0 MG/DL Urine Leukocyte Esterase TRACE H NEGATIVE Urine RBC (Auto) TRACE-I NEGATIVE Urine RBC 0-2 /HPF Urine WBC 0-2 /HPF Urine Squamous Epithelial Cells 2-5 /HPF Urine Renal Epithelial Cells 0-2 /HPF Urine Crystals NONE /LPF Urine Bacteria MODERATE H /HPF Urine Casts NONE /LPF Urine Mucus NEGATIVE /LPF Urine Culture Indicated YES Urine Opiates Screen NEGATIVE NEGATIVE Urine Oxycodone Screen NEGATIVE NEGATIVE Urine Methadone Screen NEGATIVE NEGATIVE Urine Propoxyphene Screen NEGATIVE NEGATIVE Urine Barbiturates Screen NEGATIVE NEGATIVE Ur Tricyclic Antidepressants Screen POSITIVE H NEGATIVE Urine Phencyclidine Screen NEGATIVE NEGATIVE Urine Amphetamines Screen NEGATIVE NEGATIVE Urine Methamphetamines Screen NEGATIVE NEGATIVE Urine Benzodiazepines Screen NEGATIVE NEGATIVE Urine Cocaine Screen NEGATIVE NEGATIVE Urine Cannabinoids Screen NEGATIVE NEGATIVE My Orders Orders - RAÚLPADMINIA Geo DO Accucheck Stat ONCE (01/14/21 22:45) Ed Iv/Invasive Line Start (01/14/21 22:45) Ekg Tracing (01/14/21 22:45) Monitor-Rhythm Ecg Trace Only (01/14/21 22:45) Orthostatic Vital Signs (Adult (01/14/21 22:45) Ct Head/Cervical Spine Wo (01/14/21 22:45) Ct Thoracic/Lumbar Spine Wo (01/14/21 22:45) Acetaminophen (01/14/21 22:45) Alcohol (01/14/21 22:45) Cbc With Automated Diff (01/14/21 22:45) Comprehensive Metabolic Panel (01/14/21 22:45) Creatine Kinase (01/14/21 22:45) Creatine Kinase Mb (01/14/21 22:45) Drug Screen Stat (Urine) (01/14/21 22:45) Hcg,Qualitative Serum (01/14/21 22:45) Magnesium (01/14/21 22:45) Protime With Inr (01/14/21 22:45) Partial Thromboplastin Time (01/14/21 22:45) Thyroid Analyzer (01/14/21 22:45) Ua Culture If Indicated (01/14/21 22:45) Myoglobin Serum (01/14/21 22:45) Troponin I (01/14/21 22:45) Ed Iv/Invasive Line Start (01/14/21 22:45) Urine Culture (01/14/21 23:13) Ketorolac Injection (Toradol Injection) (01/15/21 00:30) Orphenadrine Inj (Ed Only) (Norflex Inje (01/15/21 00:30) Medications Given in ED Current Medications Medications Dose Ordered Sig/Kayode Route Start Time Stop Time Status Last Admin Dose Admin Ketorolac Tromethamine 30 mg ONCE ONCE IVP 01/15/21 00:30 01/15/21 00:31 DC 01/15/21 00:45 30 MG Orphenadrine Citrate 60 mg ONCE ONCE IV 01/15/21 00:30 01/15/21 00:31 DC 01/15/21 00:45 60 MG Vital Signs/I&O 01/14/21 01/14/21 01/15/21 22:41 23:28 00:52 Temp 36.7 Pulse 113 108 100 110 117 Resp 20 18 B/P (MAP) 169/100 (123) 169/100 (123) 146/109 180/112 (134) 177/113 (134) Pulse Ox 96 96 O2 Delivery Room Air Room Air Capillary Refill : Progress Note : Progress Note UNEVENTFUL ER STAY BP MILDLY ELEVATED, ADVISED TO FOLLOW UP WITH PCP THIS WEEK FOR FURTHER EVALUATION ECG Initial ECG Impression Date: Jan 14, 2021 Initial ECG Impression Time: 23:14 Initial ECG Rate: 103 Initial ECG Rhythm: Normal Sinus Diagnostic Imaging Comments CT HEAD/CERVICAL SPINE--NO ACUTE PROCESS, PER [facility] VIA FAX AT [address] THORACIC/LUMBAR SPINE--NO ACUTE PROCESS, PER [facility] VIA FAX AT 0021 Reviewed: Reviewed by Me Departure Impression Primary Impression: Back contusion Additional Impression: S/P UNWITNESSED FALL VS SYNCOPE VS SEIZURE Disposition: 01 HOME, SELF-CARE Condition: Stable Departure-Patient Inst. Referrals: [facility] (PCP) Primary Care Physician NAZANIN MOTA APRN (Family) Primary Care Physician Patient Instructions: Contusion (DC), Low Back Pain (DC), Upper Back Pain (DC) Add. Discharge Instructions: ALTERNATE ICE AND HEAT TO SORE AREAS AT 20 MINUTE INTERVALS TYLENOL 1 GRAM AND MOTRIN 800 MG 4 TIMES A DAY FOR PAIN FOLLOW UP WITH [facility] THIS WEEK FOR FURTHER CARE--CALL IN AM TO SCHEDULE APPOINTMENT Scripts Cyclobenzaprine HCl (Cyclobenzaprine HCl) 10 Mg Tablet 10 MG PO Q8H PRN for SPASMS, #10 TAB 0 Refills Prov: SHAQ OLSEN DO 01/15/21 SHAQ OLSEN DO Jan 14, 2021 23:02
[2021-01-14 23:14] LABS: BASOPHILS # (AUTO) 0.1 10^3/uL (0.0-0.1); BASOPHILS % (AUTO) 1 % (0-10); EOSINOPHILS % (AUTO) 0 % (0-10); HEMATOCRIT 36 % (35-52); HEMOGLOBIN 11.5 g/dL (11.5-16.0); LYMPHOCYTES # (AUTO) 1.8 10^3/uL (1.0-4.0); LYMPHOCYTES % (AUTO) 26 % (12-44); MEAN CORPUSCULAR HEMOGLOBIN 28 pg (25-34); MEAN CORPUSCULAR HGB CONC 32 g/dL (32-36); MEAN CORPUSCULAR VOLUME 85 fL (80-99); MEAN PLATELET VOLUME 10.1 fL (9.0-12.2); MONOCYTES # (AUTO) 0.6 10^3/uL (0.0-1.0); MONOCYTES % (AUTO) 8 % (0-12); NEUTROPHILS # (AUTO) 4.4 10^3/uL (1.8-7.8); NEUTROPHILS % (AUTO) 61 % (42-75); PLATELET COUNT 300 10^3/uL (130-400); WHITE BLOOD COUNT 7.2 10^3/uL (4.3-11.0)
[2021-01-14 23:18] LABS: BILIRUBIN,URINE NEGATIVE (NEGATIVE); CLARITY,URINE CLEAR; COLOR,URINE YELLOW; GLUCOSE, URINE (UA) NEGATIVE (NEGATIVE); KETONES,URINE NEGATIVE (NEGATIVE); LEUKOCYTE ESTERASE ,URINE TRACE (NEGATIVE); NITRITE,URINE NEGATIVE (NEGATIVE); PROTEIN,URINE NEGATIVE (NEGATIVE)
[2021-01-14 23:27] LABS: INR 0.9 (0.8-1.4); PROTHROMBIN TIME PATIENT 12.6 SEC (12.2-14.7)
[2021-01-14 23:28] VITALS: BP_SYST 169; BP_SYST 177; BP_SYST 180; BP_DIAS 100; BP_DIAS 112; BP_DIAS 113
[2021-01-14 23:31] LABS: BACTERIA,URINE MODERATE /HPF; RBC,URINE 0-2 /HPF; RENAL EPITHELIAL CELLS,URINE 0-2 /HPF; WBC,URINE 0-2 /HPF
[2021-01-14 23:32] LABS: AMPHETAMINE SCREEN, URINE NEGATIVE (NEGATIVE); BARBITURATE SCREEN URINE NEGATIVE (NEGATIVE); BENZODIAZEPINES SCREEN URINE NEGATIVE (NEGATIVE); CANNABINOID SCREEN, URINE NEGATIVE (NEGATIVE); COCAINE SCREEN URINE NEGATIVE (NEGATIVE); METHADONE STAT NEGATIVE (NEGATIVE); METHAMPHETAMINE SCREEN URINE S NEGATIVE (NEGATIVE); OPIATE SCREEN URINE NEGATIVE (NEGATIVE); OXYCODONE STAT NEGATIVE (NEGATIVE); PROPOXYPHENE STAT NEGATIVE (NEGATIVE); TRICYCLIC ANTIDEPRESSANTS SCRE POSITIVE (NEGATIVE)
[2021-01-14 23:39] LABS: ALANINE AMINOTRANSFERASE 22 U/L (0-55); ALBUMIN 3.8 GM/DL (3.2-4.5); ALKALINE PHOSPHATASE 68 U/L (40-136); BILIRUBIN,TOTAL 0.2 MG/DL (0.1-1.0); BUN/CREATININE RATIO 19; CARBON DIOXIDE 22 MMOL/L (21-32); CHLORIDE 104 MMOL/L (98-107); CREATINE KINASE 22 U/L (29-168); CREATININE SERUM 0.85 MG/DL (0.60-1.30); GFR ESTIMATED > 60; GLUCOSE 171 MG/DL (70-105); MAGNESIUM 1.8 MG/DL (1.6-2.4); POTASSIUM 3.9 MMOL/L (3.6-5.0); SODIUM 138 MMOL/L (135-145); TOTAL PROTEIN 6.6 GM/DL (6.4-8.2)
[2021-01-14 23:50] LABS: ACETAMINOPHEN < 10 UG/ML (10-30)
[2021-01-14 23:58] LABS: CREATINE KINASE MB 0.3 NG/ML (<6.6); TSH (THYROID ANALYZER) 3.28 UIU/ML (0.35-4.94)
[2021-01-15] MEDS ORDERED: CYCL10TA9 PO (00:25)
[2021-01-15] MEDS ORDERED: KETOROLAC 30 MG/ML VIAL IVP ONE (00:30)
[2021-01-15] MEDS ORDERED: ORPHENADRINE 60 MG/2 ML (NORFLEX) AMP (ED ONLY) IV ONE (00:30)
[2021-01-15 00:52] VITALS: BP 146/109
--- NOTE | 2021-01-15 06:23 | Diagnostic Imaging Report ---
PROCEDURE: CT head and CT cervical spine without contrast. TECHNIQUE: Multiple contiguous axial images were obtained through the brain and cervical spine without the use of intravenous contrast. Sagittal and coronal reformations through the cervical spine were then performed. Auto Exposure Controls were utilized during the CT exam to meet ALARA standards for radiation dose reduction. INDICATION: Head and neck injury from a fall CT HEAD: The ventricles are normal in size, shape and position. There are no masses or hemorrhages. There are no extra-axial fluid collections. IMPRESSION: Negative CT head CT cervical spine: Vertebral body height and alignment appear normal. Intervertebral disc spaces well-maintained. There is no fracture or prevertebral soft tissue swelling. IMPRESSION: Negative CT cervical spine I agree with preliminary interpretation. Dictated by: Dictated on workstation # [id number]
--- NOTE | 2021-01-15 06:24 | Diagnostic Imaging Report ---
PROCEDURE: CT thoracic and lumbar spine without contrast. TECHNIQUE: Multiple contiguous axial images were obtained through the thoracic and lumbar spine without the use of intravenous contrast. Sagittal and coronal reformations were then performed.All CT scans use one or more of the following dose optimizing techniques: automated exposure control, MA and/or KvP adjustment based on a patient size and exam type, or iterative reconstruction. INDICATION: Back injury from a fall Vertebral body height and alignment appear normal. Intervertebral disc spaces are well-maintained. There are no acute compression fractures. There are Schmorl's nodes in the superior endplates of T5 and T6. IMPRESSION: No acute abnormality seen in the thoracic or lumbar spine I agree with preliminary interpretation. Dictated by: Dictated on workstation # [id number]
== END 2021-01-15 00:53 | disposition home or self-care (01) ==
LOC: EDUNIT# 22:37 → ER 22:39
DX: S30.0XXA Contusion of lower back and pelvis, initial encounter (principal); R55 Syncope and collapse; G40.909 Epilepsy, unspecified, not intractable, without status epilepticus; E66.01 Morbid (severe) obesity due to excess calories; I10 Essential (primary) hypertension; Z68.42 Body mass index [BMI] 45.0-49.9, adult; Z88.0 Allergy status to penicillin; Z88.2 Allergy status to sulfonamides; Z88.1 Allergy status to other antibiotic agents; Z87.891 Personal history of nicotine dependence; Z88.8 Allergy status to other drugs, medicaments and biological substances; Z79.52 Long term (current) use of systemic steroids; W19.XXXA Unspecified fall, initial encounter
CPT/HCPCS: 70450; 72125; 72128; 72131; 80053; 80306; 81000; 82550; 82553; 82962; 83735; 83874; 84443; 84484; 84703; 85025; 85610; 85730; 87088; 93005; 93041; 99284; G0480 ×2; 36415; 80320; 80329

== ENCOUNTER 2021-02-27 13:23 | Emergency (ER) | payer OTHER ==
[~2021-02-27] VITALS: Ht 165 cm; Wt 138.0 kg
[~2021-02-27 13:23] MED LIST changes: +CYCL10TA9 PO
--- NOTE | 2021-02-27 14:25 | ED Chest Pain ---
General Chief Complaint: Chest Pain Stated Complaint: CP W WALKING Nursing Triage Note: Pt reports CP starting approx 1 hour ago. States pain radiates down L arm and leg Nursing Sepsis Screen: No Definite Risk Source: patient Exam Limitations: no limitations History of Present Illness Date Seen by Provider: February 27, 2021 Time Seen by Provider: 14:05 Initial Comments Patient is a 25-year-old female who presents to the emergency department today with a chief complaint of left-sided chest pain that radiates into her left shoulder and arm and down into her left leg. Patient states that she was walking around a local grocery store when she had the onset of symptoms. She states she feels a little bit nauseous. She states it hurts to take a deep breath. It hurts to move her left arm. Patient has never had pain like this before. She rates it at "a 7 or an 8". She has not taken any medications for the pain. Patient denies a history of known coronary disease. She denies smoking history or high blood pressure. No family history of early coronary artery disease. She denies recent travel or prolonged immobility. She has had a little bit of swelling in her bilateral ankles over the course of the last few weeks. She denies calf tenderness or leg swelling. She is not on control. No recent fevers, chills, cough or congestion. She is Covid vaccinated. All other review of systems reviewed and negative except as stated above. Timing/Duration: 1 hour Severity/Quality: moderate, sharp Location: other (Left chest) Radiation: arms, other (Left leg) Activities at Onset: activity Prior CP/Workup: no prior cardiac workup ASA po COUNTER INTELLIGENCE AGENT: No NTG SL COUNTER INTELLIGENCE AGENT: No Associated Symptoms: nausea/vomiting (Mild nausea without vomiting) Allergies and Home Medications Allergies Coded Allergies: cephalexin (Verified Allergy, Severe, soa, 07/13/20) amoxicillin (Verified Allergy, Unknown, 04/06/19) carbamazepine (Verified Allergy, Unknown, 04/06/19) shellfish derived (Verified Allergy, Unknown, 07/20/19) Penicillins (Unverified Adverse Reaction, Intermediate, 04/06/19) Sulfa (Sulfonamide Antibiotics) (Unverified Adverse Reaction, Intermediate, 04/06/19) Home Medications Butalb/Acetaminophen/Caffeine 1 Each Capsule, 2 EACH PO Q6H PRN for headache Prescribed by: CELIA HUGHES on 12/17/19 1631 Clindamycin HCl 300 Mg Capsule, 300 MG PO TID Prescribed by: STEF NAVAS on 08/15/20 1646 Cyclobenzaprine HCl 10 Mg Tablet, 10 MG PO Q8H PRN for SPASMS Prescribed by: SHAQ OLSEN on 01/15/21 0025 Levetiracetam 1,000 Mg Tablet, 1,000 MG PO TID, (Reported) Medroxyprogesterone Acetate 10 Mg Tablet, 10 MG PO DAILY Prescribed by: STEF NAVAS on 08/15/20 1647 Mometasone Furoate 45 Gm Cream..g., 45 GM TP TID Prescribed by: SHAQ OLSEN on 03/10/20 023 Ofloxacin 5 Ml Drops, 3 DROPS RIGHT EAR BID Prescribed by: CELIA HUGHES on 07/05/20 1426 Prednisone 20 Mg Tab, 40 MG PO DAILY Prescribed by: SHAQ OLSEN on 03/10/20 023 Patient Home Medication List Home Medication List Reviewed: Yes Review of Systems Review of Systems Constitutional: see HPI EENTM: No Symptoms Reported Respiratory: No Symptoms Reported Cardiovascular: Chest Pain Gastrointestinal: No Symptoms Reported Genitourinary: No Symptoms Reported Musculoskeletal: no symptoms reported Skin: other (Recent folliculitis to the left lower extremity) Psychiatric/Neurological: No Symptoms Reported All Other Systems Reviewed Negative Unless Noted: Yes Past Ndlragl-Xbnjvj-Synixe Hx Patient Social History Alcohol Use: Rarely Uses Number of Drinks Today: AA Alcohol Beverage of Choice: Beer Drug of Choice: DENIES Smoking Status: Former Smoker Type Used: Cigarettes Former Smoker, Quit: Oct 20, 2011 2nd Hand Smoke Exposure: No Recent Infectious Disease Expo: No Recent Hopitalizations: No Immunizations Up To Date Tetanus Booster (TDap): Less than 5yrs PED Vaccines UTD: Yes Date of Pneumonia Vaccine: Apr 19, 2012 Date of Influenza Vaccine: Jul 20, 2020 Seasonal Allergies Seasonal Allergies: Yes Past Medical History Surgeries: Yes (SEE BELOW) Adenoidectomy, Ear Surgery, Nephrectomy, Renal, Tonsillectomy Respiratory: No Cardiac: Yes Heart Murmur, High Cholesterol, Hypertension, Irregular Heartbeat Neurological: Yes (SEE BELOW) Headaches /Migraines, Seizure Disorder Reproductive Disorders: No Female Reproductive Disorders: Polycystic Ovarian Dis Genitourinary: Yes (only one kidney) Bladder Infection Gastrointestinal: No Musculoskeletal: No Endocrine: Yes (MORBIDOBESITY) HEENT: Yes (S/P BMT'S; DECREASED HEARING IN BOTH EAR;BENIGN TUMOR-ROOF OF MOUTH REMOVED) Chronic Ear Infection Hearing Impairment: Hard of Hearing Cancer: No Psychosocial: Yes Anxiety, Depression Integumentary: Yes (skin issues on lt leg) Blood Disorders: No Family Medical History No Pertinent Family Hx SOCIAL HISTORY: -ETOH--OCCASIONAL USE -DRUGS--DENIES USE -SMOKING--QUIT 2011 PMH: -HAD SEIZURES CHILD AND WAS ON MEDICATIONS UNTIL AGE 10; NO SEIZURES FOR YEARS, THEN STARTED HAVING SEIZURES AGAIN 10/2017, AND HAS BEEN BACK ON SEIZURE MEDICATIONS SINCE THEN. THEY POSSIBLY HAVE BEEN RELATED TO MIGRAINES, BUT ON PREVIOUS ER VISITS, THE SEIZURES HAVE BEEN ALL SELF-REPORTED AND NOT WITNESSED PSH: -BMT'S -REMOVAL OF BENIGN TUMOR FROM ROOF OF MOUTH -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 -TONSILLECTOMY AND ADENOIDECTOMY Physical Exam Vital Signs Vital Signs - First Documented 02/27/21 13:28 Temp 36.7 Pulse 91 Resp 18 B/P (MAP) 163/101 (121) Pulse Ox 98 O2 Delivery Room Air Capillary Refill : Less Than 3 Seconds Height, Weight, BMI Height: 5'5.00" Weight: 260lbs. 0oz. 117.734209we; 50.00 BMI Method:Actual General Appearance: No Apparent Distress, WD/WN Neck: Normal Inspection Respiratory: Lungs Clear, Normal Breath Sounds, No Accessory Muscle Use, No Respiratory Distress, Other (Tenderness to palpation over the left anterior chest wall. No overlying erythema/rashes) Cardiovascular: Regular Rate, Rhythm, No Murmur Gastrointestinal: Non Tender, Soft Extremity: Normal Capillary Refill, Normal Inspection, Normal Range of Motion, Non Tender, No Calf Tenderness Neurologic/Psychiatric: Alert, Oriented x3, No Motor/Sensory Deficits Skin: Normal Color, Warm/Dry Progress/Results/Core Measures Results/Orders My Orders Orders - OLMAN NEWTON MD Ekg Tracing (02/27/21 13:51) Medications Given in ED Current Medications Medications Dose Ordered Sig/Kayode Route Start Time Stop Time Status Last Admin Dose Admin Ketorolac Tromethamine 30 mg ONCE ONCE IVP 02/27/21 14:30 02/27/21 14:31 DC 02/27/21 14:39 30 MG Vital Signs/I&O 02/27/21 02/27/21 02/27/21 13:28 14:00 14:39 Temp 36.7 36.7 Pulse 91 Resp 18 B/P (MAP) 163/101 (121) Pulse Ox 98 O2 Delivery Room Air Room Air Blood Pressure Mean: 121 Progress Progress Note : Time: 15:05 Progress Note Patient feels much better after Toradol. Comfortable with discharge to home. Recommend thbi-ibe-[id number] NSAIDs as directed on the bottle with food for pain. Patient verbalized understanding. All questions are sought and answered. Miley ent is stable for discharge. Initial ECG Impression Date: February 27, 2021 Initial ECG Impression Time: 14:10 Initial ECG Rate: 90 Initial ECG Rhythm: Normal Sinus Initial ECG Intervals: Normal Initial ECG Impression: Nonspecific Changes Diagnostic Imaging Diagonstic Imaging: Xray Plain Films/CT/US/NM/MRI: chest Comments [facility] [place], [place] NAME: [facility] REC#: [id number] PT STATUS: REG ER : 1995 PHYSICIAN: CELIA HUGHES APRN ADMIT DATE: 02/27/21/ER Signed Date of Exam:02/27/21 CHEST 1 VIEW, AP/PA ONLY INDICATION: Chest pain. EXAMINATION: Portable chest at 02:38 p.m. FINDINGS: Heart size and pulmonary vascularity are normal. Lungs are clear. There are no effusions or pneumothoraces. IMPRESSION: Negative chest. Dictated by: Dictated on workstation # [id number] Dict: 02/27/21 1450 Trans: 02/27/21 1452 [id number] Interpreted by: RONDA STORY MD Electronically signed by: RONDA STORY MD 02/27/21 1452 Departure Impression Primary Impression: Chest wall pain Disposition: 01 HOME, SELF-CARE Condition: Stable Departure-Patient Inst. Decision time for Depature: 15:10 Referrals: [facility] (PCP) Primary Care Physician NAZANIN MOTA APRN (Family) Primary Care Physician Patient Instructions: Chest Pain That Is Not Caused by the Heart (DC) Add. Discharge Instructions: Drink plenty of fluids to stay well-hydrated. Take jhxh-hme-rifrlfy Aleve, 2 pills in the morning with food and 2 pills at night with food as needed for pain. Do this no more than 3 to 5 days in a row. Come back to the emergency room for reevaluation if you have any worsening pain, shortness of breath, cough, fever or any other emergent concerning symptoms. Follow-up with your primary care physician as needed. OLMAN NEWTON MD February 27, 2021 14:25
[2021-02-27] MEDS ORDERED: KETOROLAC 30 MG/ML VIAL IVP ONE (14:30)
--- NOTE | 2021-02-27 14:53 | Diagnostic Imaging Report ---
INDICATION: Chest pain. EXAMINATION: Portable chest at 02:38 p.m. FINDINGS: Heart size and pulmonary vascularity are normal. Lungs are clear. There are no effusions or pneumothoraces. IMPRESSION: Negative chest. Dictated by: Dictated on workstation # [id number]
[2021-02-27 15:28] VITALS: BP 134/92
== END 2021-02-27 15:28 | disposition home or self-care (01) ==
LOC: EDUNIT# 13:23 → ER 13:24
DX: R07.89 Other chest pain (principal); I10 Essential (primary) hypertension; G40.909 Epilepsy, unspecified, not intractable, without status epilepticus; E66.01 Morbid (severe) obesity due to excess calories; Z68.43 Body mass index [BMI] 50.0-59.9, adult; Z88.1 Allergy status to other antibiotic agents; Z88.0 Allergy status to penicillin; Z88.2 Allergy status to sulfonamides; Z88.8 Allergy status to other drugs, medicaments and biological substances; Z87.891 Personal history of nicotine dependence; Z79.52 Long term (current) use of systemic steroids; Z79.899 Other long term (current) drug therapy
CPT/HCPCS: 71045; 93005

== ENCOUNTER 2021-03-17 21:14 | Emergency (ER) | payer OTHER ==
[2021-03-17 21:30] VITALS: BP 127/89
--- NOTE | 2021-03-17 21:39 | ED Headache ---
General Stated Complaint: ORTIZ / HEAD INJ - FALL Source: patient Exam Limitations: no limitations History of Present Illness Date Seen by Provider: March 17, 2021 Time Seen by Provider: 21:37 Initial Comments To ER by private vehicle with reports of a right-sided headache for 1 week. Photophobia nausea as well. Has a history of migraines and this is similar. This evening she was reaching into the cabinet to grab some Tylenol to take for her headache when she blacked out and fell and struck the right side of her head. She now has severe pain to the right side of her head. Timing/Duration: 1 week Severity/Quality: moderate Location: temporal Prior Headaches/Recent Trauma: frequent headaches Modifying Factors: worse with exposure to light Associated Symptoms: nausea/vomiting Allergies and Home Medications Allergies Coded Allergies: cephalexin (Verified Allergy, Severe, soa, 07/13/20) amoxicillin (Verified Allergy, Unknown, 04/06/19) carbamazepine (Verified Allergy, Unknown, 04/06/19) shellfish derived (Verified Allergy, Unknown, 07/20/19) Penicillins (Unverified Adverse Reaction, Intermediate, 04/06/19) Sulfa (Sulfonamide Antibiotics) (Unverified Adverse Reaction, Intermediate, 04/06/19) Home Medications Butalb/Acetaminophen/Caffeine 1 Each Capsule, 2 EACH PO Q6H PRN for headache Prescribed by: CELIA HUGHES on 12/17/19 1631 Clindamycin HCl 300 Mg Capsule, 300 MG PO TID Prescribed by: STEF NAVAS on 08/15/20 1646 Cyclobenzaprine HCl 10 Mg Tablet, 10 MG PO Q8H PRN for SPASMS Prescribed by: SHAQ OLSEN on 01/15/21 0025 Levetiracetam 1,000 Mg Tablet, 1,000 MG PO TID, (Reported) Medroxyprogesterone Acetate 10 Mg Tablet, 10 MG PO DAILY Prescribed by: STEF NAVAS on 08/15/20 1647 Mometasone Furoate 45 Gm Cream..g., 45 GM TP TID Prescribed by: SHAQ OLSEN on 03/10/20 0232 Ofloxacin 5 Ml Drops, 3 DROPS RIGHT EAR BID Prescribed by: CELIA HUGHES on 07/05/20 1426 Prednisone 20 Mg Tab, 40 MG PO DAILY Prescribed by: SHAQ OLSEN on 03/10/20 0232 Patient Home Medication List Home Medication List Reviewed: Yes Review of Systems Review of Systems Constitutional: see HPI; No chills, No fever Eyes: See HPI, Blurred Vision Ears, Nose, Mouth, Throat: no symptoms reported Respiratory: no symptoms reported Cardiovascular: no symptoms reported Genitourinary: no symptoms reported Musculoskeletal: no symptoms reported Skin: no symptoms reported Psychiatric/Neurological: No Symptoms Reported Past Nbskhss-Jkhodd-Mnvico Hx Patient Social History Alcohol Beverage of Choice: Beer Drug of Choice: DENIES Type Used: Cigarettes Former Smoker, Quit: Oct 20, 2011 2nd Hand Smoke Exposure: No Recent Hopitalizations: No Immunizations Up To Date Tetanus Booster (TDap): Less than 5yrs PED Vaccines UTD: Yes Date of Pneumonia Vaccine: Apr 19, 2012 Date of Influenza Vaccine: Jul 20, 2020 Seasonal Allergies Seasonal Allergies: Yes Past Medical History Surgeries: Yes (SEE BELOW) Adenoidectomy, Ear Surgery, Nephrectomy, Renal, Tonsillectomy Respiratory: No Cardiac: Yes Heart Murmur, High Cholesterol, Hypertension, Irregular Heartbeat Neurological: Yes (SEE BELOW) Headaches /Migraines, Seizure Disorder Reproductive Disorders: No Female Reproductive Disorders: Polycystic Ovarian Dis Genitourinary: Yes (only one kidney) Bladder Infection Gastrointestinal: No Musculoskeletal: No Endocrine: Yes (MORBIDOBESITY) HEENT: Yes (S/P BMT'S; DECREASED HEARING IN BOTH EAR;BENIGN TUMOR-ROOF OF MOUTH REMOVED) Chronic Ear Infection Hearing Impairment: Hard of Hearing Cancer: No Psychosocial: Yes Anxiety, Depression Integumentary: Yes (skin issues on lt leg) Blood Disorders: No Family Medical History No Pertinent Family Hx SOCIAL HISTORY: -ETOH--OCCASIONAL USE -DRUGS--DENIES USE -SMOKING--QUIT 2011 PMH: -HAD SEIZURES CHILD AND WAS ON MEDICATIONS UNTIL AGE 10; NO SEIZURES FOR YEARS, THEN STARTED HAVING SEIZURES AGAIN 10/2017, AND HAS BEEN BACK ON SEIZURE MEDICATIONS SINCE THEN. THEY POSSIBLY HAVE BEEN RELATED TO MIGRAINES, BUT ON PREVIOUS ER VISITS, THE SEIZURES HAVE BEEN ALL SELF-REPORTED AND NOT WITNESSED PSH: -BMT'S -REMOVAL OF BENIGN TUMOR FROM ROOF OF MOUTH -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 -TONSILLECTOMY AND ADENOIDECTOMY Physical Exam Vital Signs Capillary Refill : Height, Weight, BMI Height: 5'5.00" Weight: 260lbs. 0oz. 117.133116um; 50.00 BMI Method:Actual General Appearance: WD/WN, no apparent distress, obese (Alert and oriented very talkative no distress GCS 15 there is no palpable hematoma or laceration or visible evidence of head injury.) HEENT: PERRL/EOMI, normal ENT inspection, TMs normal Neck: non-tender, full range of motion Respiratory: no respiratory distress, no accessory muscle use Extremities: normal range of motion, non-tender Psychiatric: alert, oriented x 3 Crainal Nerves: normal hearing, normal speech, PERRL Progress/Results/Core Measures Results/Orders My Orders Orders - CELIA HUGHES APRN Ketorolac Injection (Toradol Injection) (03/17/21 21:45) Prochlorperazine Injection (Compazine In (03/17/21 21:45) Diphenhydramine Injection (Benadryl Inje (03/17/21 21:45) Departure Communication (Admissions) 2140-No concerning findings on clinical exam. Will treat the headache then dc to home. Impression Primary Impression: Headache Disposition: 01 HOME, SELF-CARE Condition: Stable Departure-Patient Inst. Decision time for Depature: 21:38 Referrals: [facility] (PCP) Primary Care Physician NAZANIN MOTA APRN (Family) Primary Care Physician Patient Instructions: HEADACHE Add. Discharge Instructions: 1. Return to ER for any concerns. You may have a concussion as well this is difficult to diagnose given your pre-existing headache. Follow-up with your doctor next week. CELIA HUGHES APRN March 17, 2021 21:39
[2021-03-17] MEDS ORDERED: diphenhydrAMINE 50 MG/ML INJ (BENADRYL) IM ONE (21:45)
[2021-03-17] MEDS ORDERED: KETOROLAC 60 MG/2 ML VIAL IM ONE (21:45)
[2021-03-17] MEDS ORDERED: PROCHLORPERAZINE 10 MG/2ML INJ (COMPAZINE) IM ONE (21:45)
== END 2021-03-17 22:30 | disposition home or self-care (01) ==
LOC: EDUNIT# 21:14 → ER 21:16
DX: R51.9 Headache, unspecified (principal); I10 Essential (primary) hypertension; G40.909 Epilepsy, unspecified, not intractable, without status epilepticus; E66.01 Morbid (severe) obesity due to excess calories; Z68.43 Body mass index [BMI] 50.0-59.9, adult; Z86.69 Personal history of other diseases of the nervous system and sense organs; Z87.891 Personal history of nicotine dependence; Z79.899 Other long term (current) drug therapy
CPT/HCPCS: 99284

== ENCOUNTER → 2021-03-23 | Outpatient (CLI) | payer OTHER | LOC: CARD 13:56 | PROVIDERS: ATTEND Pediatrics | DX: R60.9 Edema, unspecified (principal) | CPT/HCPCS: 93306 ==

== ENCOUNTER 2021-04-07 10:51 | Emergency (ER) | payer OTHER ==
[~2021-04-07] VITALS: Ht 166 cm; Wt 137.0 kg
[2021-04-07 11:08] VITALS: BP 164/123
--- NOTE | 2021-04-07 11:18 | ED Neurological Problem ---
General Chief Complaint: Neurological Problems Stated Complaint: SEIZURE/FALL Nursing Triage Note: Pt reports having seizure at home. Pt reports hitting R side of head, vomiting and having incontinence. Pt reports LOC. Pt now c/o headache and nausea. Nursing Sepsis Screen: No Definite Risk Source: patient Exam Limitations: no limitations History of Present Illness Date Seen by Provider: Apr 07, 2021 Time Seen by Provider: 11:18 Initial Comments To ER with reports of a seizure at home. She believes she hit the right side of her head on the bathtub, she awakened surrounded by vomit and she had wet herself. She now has a headache. Timing/Duration: 1 week Severity: moderate Associated Symptoms: seizures, other Allergies and Home Medications Allergies Coded Allergies: cephalexin (Verified Allergy, Severe, soa, 07/13/20) amoxicillin (Verified Allergy, Unknown, 04/06/19) carbamazepine (Verified Allergy, Unknown, 04/06/19) shellfish derived (Verified Allergy, Unknown, 07/20/19) Penicillins (Unverified Adverse Reaction, Intermediate, 04/06/19) Sulfa (Sulfonamide Antibiotics) (Unverified Adverse Reaction, Intermediate, 04/06/19) Home Medications Butalb/Acetaminophen/Caffeine 1 Each Capsule, 2 EACH PO Q6H PRN for headache Prescribed by: CELIA HUGHES on 12/17/19 1631 Clindamycin HCl 300 Mg Capsule, 300 MG PO TID Prescribed by: STEF NAVAS on 08/15/20 1646 Cyclobenzaprine HCl 10 Mg Tablet, 10 MG PO Q8H PRN for SPASMS Prescribed by: SHAQ OLSEN on 01/15/21 0025 Levetiracetam 1,000 Mg Tablet, 1,000 MG PO TID, (Reported) Medroxyprogesterone Acetate 10 Mg Tablet, 10 MG PO DAILY Prescribed by: STEF NAVAS on 08/15/20 1647 Mometasone Furoate 45 Gm Cream..g., 45 GM TP TID Prescribed by: SHAQ OLSEN on 03/10/20 0232 Ofloxacin 5 Ml Drops, 3 DROPS RIGHT EAR BID Prescribed by: CELIA HUGHES on 07/05/20 1426 Prednisone 20 Mg Tab, 40 MG PO DAILY Prescribed by: SHAQ OLSEN on 03/10/20 023 Patient Home Medication List Home Medication List Reviewed: Yes Review of Systems Review of Systems Constitutional: see HPI Eyes: No Symptoms Reported Ears, Nose, Mouth, Throat: no symptoms reported Respiratory: no symptoms reported Cardiovascular: no symptoms reported Genitourinary: no symptoms reported Musculoskeletal: no symptoms reported Skin: no symptoms reported Psychiatric/Neurological: See HPI, Headache Endocrine: No Symptoms Reported Hematologic/Lymphatic: No Symptoms Reported Past Btoeohr-Wdrpfw-Rwwgmn Hx Patient Social History Alcohol Use: Denies Use Number of Drinks Today: AA Alcohol Beverage of Choice: Beer Drug of Choice: DENIES Smoking Status: Former Smoker Type Used: Cigarettes Former Smoker, Quit: Oct 20, 2011 2nd Hand Smoke Exposure: No Recent Infectious Disease Expo: No Recent Hopitalizations: No Immunizations Up To Date Tetanus Booster (TDap): Less than 5yrs PED Vaccines UTD: Yes Date of Pneumonia Vaccine: Apr 19, 2012 Date of Influenza Vaccine: Jul 20, 2020 Seasonal Allergies Seasonal Allergies: Yes Past Medical History Surgeries: Yes Adenoidectomy, Ear Surgery, Nephrectomy, Renal, Tonsillectomy Respiratory: No Cardiac: Yes Heart Murmur, High Cholesterol, Hypertension, Irregular Heartbeat Neurological: Yes Headaches /Migraines, Seizure Disorder Last Menstrual Period: Apr 05, 2021 Reproductive Disorders: No Female Reproductive Disorders: Polycystic Ovarian Dis Genitourinary: Yes (only one kidney) Bladder Infection Gastrointestinal: No Musculoskeletal: No Endocrine: Yes (PCOS) HEENT: Yes (S/P BMT'S; DECREASED HEARING IN BOTH EAR;BENIGN TUMOR-ROOF OF MOUTH REMOVED) Chronic Ear Infection Hearing Impairment: Hard of Hearing Cancer: No Psychosocial: Yes Anxiety, Depression Integumentary: Yes (skin issues on lt leg) Blood Disorders: No Family Medical History No Pertinent Family Hx SOCIAL HISTORY: -ETOH--OCCASIONAL USE -DRUGS--DENIES USE -SMOKING--QUIT 2011 PMH: -HAD SEIZURES CHILD AND WAS ON MEDICATIONS UNTIL AGE 10; NO SEIZURES FOR YEARS, THEN STARTED HAVING SEIZURES AGAIN 10/2017, AND HAS BEEN BACK ON SEIZURE MEDICATIONS SINCE THEN. THEY POSSIBLY HAVE BEEN RELATED TO MIGRAINES, BUT ON PREVIOUS ER VISITS, THE SEIZURES HAVE BEEN ALL SELF-REPORTED AND NOT WITNESSED PSH: -BMT'S -REMOVAL OF BENIGN TUMOR FROM ROOF OF MOUTH -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 -TONSILLECTOMY AND ADENOIDECTOMY Physical Exam Vital Signs Vital Signs - First Documented 04/07/21 11:08 Temp 36.6 Pulse 112 Resp 20 B/P (MAP) 164/123 (137) Pulse Ox 95 O2 Delivery Room Air Capillary Refill : Less Than 3 Seconds Height, Weight, BMI Height: 5'5.00" Weight: 260lbs. 0oz. 117.313556vo; 49.00 BMI Method:Actual General Appearance: WD/WN, no apparent distress HEENT: PERRL/EOMI, normal ENT inspection, TMs normal, other (There is no hemotympanum or singleton sign.) Neck: non-tender, full range of motion Respiratory: no respiratory distress, no accessory muscle use Gastrointestinal: normal bowel sounds, non tender, soft Extremities: normal range of motion, non-tender Neurologic/Psychiatric: alert, normal mood/affect, oriented x 3 Crainal Nerves: normal hearing, normal speech, PERRL Motor/Sensory: no motor deficit, no sensory deficit Skin: normal color, warm/dry Progress/Results/Core Measures Results/Orders My Orders Orders - CELIA HUGHES APRN Ekg Tracing (04/07/21 11:22) Vital Signs/I&O 04/07/21 11:08 Temp 36.6 Pulse 112 Resp 20 B/P (MAP) 164/123 (137) Pulse Ox 95 O2 Delivery Room Air Blood Pressure Mean: 137 Departure Communication (Admissions) Pupils are equal. She is alert and oriented GCS 15. She had a multitude of CT scans for this type of complaint. I do not feel that further radiation is warranted at this point. Impression Primary Impression: Hx of seizure disorder Disposition: HOME, SELF-CARE Condition: Stable Departure-Patient Inst. Decision time for Depature: 11:27 Referrals: [facility]/ (PCP) Primary Care Physician TYSON PRIETO APRN (Family) Primary Care Physician Patient Instructions: Seizures, Adult (DC) Add. Discharge Instructions: 1. Return to ER for any concerns 2. All discharge instructions reviewed with patient and/or family. Voiced understanding. CELIA HUGHES APRN Apr 07, 2021 11:18
[2021-04-07] MEDS ORDERED: ONDANSETRON 4 MG/2 ML (SDV) Z0FRAN IVP ONE (11:30)
[2021-04-07] MEDS ORDERED: KETOROLAC 30 MG/ML VIAL IVP ONE (11:30)
== END 2021-04-07 11:45 | disposition home or self-care (01) ==
LOC: EDUNIT# 10:51 → ER 10:53
DX: G40.909 Epilepsy, unspecified, not intractable, without status epilepticus (principal); I10 Essential (primary) hypertension; Z87.891 Personal history of nicotine dependence; Z79.52 Long term (current) use of systemic steroids; Z79.899 Other long term (current) drug therapy
CPT/HCPCS: 93005

== ENCOUNTER → 2021-04-11 | Outpatient (CLI) | payer OTHER ==
--- NOTE | 2021-04-11 14:30 | Diagnostic Imaging Report ---
PROCEDURE: CT head without contrast. TECHNIQUE: Multiple contiguous axial images were obtained through the brain without the use of intravenous contrast. Auto Exposure Controls were utilized during the CT exam to meet ALARA standards for radiation dose reduction. INDICATION: Postconcussive disorder. Correlation is made with prior head CT from 06/13/2020. The ventricles and sulci are within normal limits. No sulcal effacement or midline shift is identified. No acute intra-axial or extra-axial hemorrhage is detected. Cisterns are patent. Visualized paranasal sinuses are clear. IMPRESSION: No acute intracranial process is detected. Dictated by: Dictated on workstation # [id number]
== END ==
LOC: RAD 14:15
PROVIDERS: ATTEND Pediatrics
DX: F07.81 Postconcussional syndrome (principal)
CPT/HCPCS: 70450

== ENCOUNTER 2021-04-22 02:32 | Emergency (ER) | payer OTHER ==
[2021-04-22 02:45] VITALS: BP 162/112
[2021-04-22] MEDS ORDERED: diphenhydrAMINE 25 MG TAB (BENADRYL) PO ONE (03:15)
[2021-04-22] MEDS ORDERED: FAMOTIDINE 20 MG (PEPCID) TABLET PO ONE (03:15)
--- NOTE | 2021-04-22 03:19 | ED Integumentary General ---
General Chief Complaint: Allergic Reaction Stated Complaint: ALLERGIC REACTION Nursing Triage Note: TO ED VIA POV AND AMBULATORY TO ROOM 6 WITH C/O SEVERAL DAYS OF HIVES, ITCHING AND THINKS IT IS FROM STARTING NEW MED TOPAMAX LAST FRIDAY. TOOK CLARITIN AT 2200. Source: patient Exam Limitations: no limitations History of Present Illness Date Seen by Provider: Apr 22, 2021 Time Seen by Provider: 02:52 Initial Comments Patient to the ER by private conveyance with chief complaint that since when she started topiramate for her seizure and migraines she has been having some itchy pruritus across all of her skin. She has been using emollients. She did finally took some Claritin last night at 9:00 and at 11:00 a tablet of Benadryl which has not helped. She feels icky and tingly. Allergies and Home Medications Allergies Coded Allergies: cephalexin (Verified Allergy, Severe, soa, 07/13/20) amoxicillin (Verified Allergy, Unknown, 04/06/19) carbamazepine (Verified Allergy, Unknown, 04/06/19) shellfish derived (Verified Allergy, Unknown, 07/20/19) Penicillins (Unverified Adverse Reaction, Intermediate, 04/06/19) Sulfa (Sulfonamide Antibiotics) (Unverified Adverse Reaction, Intermediate, 04/06/19) Home Medications Butalb/Acetaminophen/Caffeine 1 Each Capsule, 2 EACH PO Q6H PRN for headache Prescribed by: CELIA HUGHES on 12/17/19 1631 Clindamycin HCl 300 Mg Capsule, 300 MG PO TID Prescribed by: STEF NAVAS on 08/15/20 1646 Cyclobenzaprine HCl 10 Mg Tablet, 10 MG PO Q8H PRN for SPASMS Prescribed by: SHAQ OLSEN on 01/15/21 0025 Levetiracetam 1,000 Mg Tablet, 1,000 MG PO TID, (Reported) Medroxyprogesterone Acetate 10 Mg Tablet, 10 MG PO DAILY Prescribed by: STEF NAVAS on 08/15/20 1647 Mometasone Furoate 45 Gm Cream..g., 45 GM TP TID Prescribed by: SHAQ OLSEN on 03/10/20 0232 Ofloxacin 5 Ml Drops, 3 DROPS RIGHT EAR BID Prescribed by: CELIA HUGHES on 07/05/20 1426 Prednisone 20 Mg Tab, 40 MG PO DAILY Prescribed by: SHAQ OLSEN on 03/10/20 0232 Patient Home Medication List Home Medication List Reviewed: Yes Review of Systems Review of Systems Constitutional: No chills, No diaphoresis EENTM: No hearing loss, No ear pain Respiratory: No cough, No short of breath Cardiovascular: No chest pain, No edema Gastrointestinal: No abdominal pain, No nausea Genitourinary: No discharge, No dysuria Musculoskeletal: No back pain, No joint pain All Other Systems Reviewed Negative Unless Noted: Yes Past Acvqzra-Wbvsrm-Fdogwv Hx Patient Social History Tobacco Use?: No Substance use?: No Alcohol Use?: No Immunizations Up To Date Tetanus Booster (TDap): Less than 5yrs PED Vaccines UTD: Yes Seasonal Allergies Seasonal Allergies: Yes Past Medical History Surgeries: Yes Adenoidectomy, Ear Surgery, Nephrectomy, Renal, Tonsillectomy Respiratory: No Cardiac: Yes Heart Murmur, High Cholesterol, Hypertension, Irregular Heartbeat Neurological: Yes Headaches /Migraines, Seizure Disorder Reproductive Disorders: No Female Reproductive Disorders: Polycystic Ovarian Dis Genitourinary: Yes (only one kidney) Bladder Infection Gastrointestinal: No Musculoskeletal: No Endocrine: Yes (PCOS) HEENT: Yes (S/P BMT'S; DECREASED HEARING IN BOTH EAR;BENIGN TUMOR-ROOF OF MOUTH REMOVED) Chronic Ear Infection Hearing Impairment: Hard of Hearing Cancer: No Psychosocial: Yes Anxiety, Depression Integumentary: Yes (skin issues on lt leg) Blood Disorders: No Family Medical History No Pertinent Family Hx SOCIAL HISTORY: -ETOH--OCCASIONAL USE -DRUGS--DENIES USE -SMOKING--QUIT 2011 PMH: -HAD SEIZURES CHILD AND WAS ON MEDICATIONS UNTIL AGE 10; NO SEIZURES FOR YEARS, THEN STARTED HAVING SEIZURES AGAIN 10/2017, AND HAS BEEN BACK ON SEIZURE MEDICATIONS SINCE THEN. THEY POSSIBLY HAVE BEEN RELATED TO MIGRAINES, BUT ON PREVIOUS ER VISITS, THE SEIZURES HAVE BEEN ALL SELF-REPORTED AND NOT WITNESSED PSH: -BMT'S -REMOVAL OF BENIGN TUMOR FROM ROOF OF MOUTH -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 -TONSILLECTOMY AND ADENOIDECTOMY Physical Exam Vital Signs Vital Signs - First Documented 04/22/21 02:45 Temp 36.8 Pulse 86 Resp 18 B/P (MAP) 162/112 (129) O2 Delivery Room Air Capillary Refill : Less Than 3 Seconds General Appearance: WD/WN, no apparent distress HEENT: PERRL/EOMI, pharynx normal Neck: full range of motion, normal inspection Cardiovascular: normal peripheral pulses, regular rate, rhythm Respiratory: lungs clear, normal breath sounds, no respiratory distress, no accessory muscle use Neurologic/Psychiatric: alert, oriented x 3 Skin: normal color, warm/dry, other (No hives are seen but there is fair amount of excoriation on the upper extremities) Progress/Results/Core Measures Results/Orders My Orders Orders - HAMM[facility] ROACH Diphenhydramine Tablet (Benadryl Tablet) (04/22/21 03:15) Famotidine Tablet (Pepcid Tablet) (04/22/21 03:15) Vital Signs/I&O 04/22/21 02:45 Temp 36.8 Pulse 86 Resp 18 B/P (MAP) 162/112 (129) O2 Delivery Room Air Blood Pressure Mean: 129 Progress Progress Note : Time: 03:18 Progress Note Stop the topiramate. Pepcid, Benadryl and antihistamine blockade recommended. Follow-up with the primary care provider. Departure Impression Primary Impression: Pruritus Additional Impression: Allergic drug rash Disposition: HOME, SELF-CARE Condition: Stable Departure-Patient Inst. Decision time for Depature: 03:19 Referrals: [facility] (PCP) Primary Care Physician TYSON PRIETO APRN (Family) Primary Care Physician Patient Instructions: Skin Rash (DC) Add. Discharge Instructions: Claritin 1 tablet twice a day until the itching stops. Benadryl 1 to 2 tablets every 6 hours as necessary to control the itching. Pepcid 20 mg twice a day to help reduce itching. Stop taking the topiramate and follow-up with your primary care doctor next week. All discharge instructions reviewed with patient and/or family. Voiced understanding. HAMMAD ROACH Apr 22, 2021 03:19
== END 2021-04-22 03:26 | disposition home or self-care (01) ==
LOC: EDUNIT# 02:32 → ER 02:34
DX: L29.9 Pruritus, unspecified (principal); T42.6X5A Adverse effect of other antiepileptic and sedative-hypnotic drugs, initial encounter; I10 Essential (primary) hypertension; G40.909 Epilepsy, unspecified, not intractable, without status epilepticus; Z79.52 Long term (current) use of systemic steroids; Z79.899 Other long term (current) drug therapy
CPT/HCPCS: 99283

== ENCOUNTER 2021-04-30 09:50 | Emergency (ER) | payer OTHER ==
[~2021-04-30] VITALS: Ht 165 cm; Wt 140.0 kg
--- NOTE | 2021-04-30 10:29 | ED GI ---
General Chief Complaint: Neurological Problems Stated Complaint: SEIZURES Nursing Triage Note: Pt reports she was scheduled for stress test today but began having abd pain and vomiting last night. Pt reports 4 seizures today. Pt has hx seizure disorder. Source of Information: Patient Exam Limitations: No Limitations History of Present Illness Date Seen by Provider: Apr 30, 2021 Time Seen by Provider: 10:07 Initial Comments Patient to the ER by private conveyance from home with chief complaint that she started having some nausea and vomiting without diarrhea about 7:00 last night. She tried to take some Zofran but vomited it back up. She takes Keppra and Trileptal for her epilepsy and since she cannot take her medicines she had 2 seizures this morning. She still having some nausea. No fevers cough shortness of breath. No sick contacts. No surgical history on her abdomen. Allergies and Home Medications Allergies Coded Allergies: cephalexin (Verified Allergy, Severe, soa, 07/13/20) topiramate (Unverified Allergy, Intermediate, 04/30/21) hives amoxicillin (Verified Allergy, Unknown, 04/06/19) carbamazepine (Verified Allergy, Unknown, 04/06/19) shellfish derived (Verified Allergy, Unknown, 07/20/19) Penicillins (Unverified Adverse Reaction, Intermediate, 04/06/19) Sulfa (Sulfonamide Antibiotics) (Unverified Adverse Reaction, Intermediate, 04/06/19) Home Medications Butalb/Acetaminophen/Caffeine 1 Each Capsule, 2 EACH PO Q6H PRN for headache Prescribed by: CELIA HUGHES on 12/17/19 1631 Clindamycin HCl 300 Mg Capsule, 300 MG PO TID Prescribed by: STEF NAVAS on 08/15/20 1646 Cyclobenzaprine HCl 10 Mg Tablet, 10 MG PO Q8H PRN for SPASMS Prescribed by: SHAQ OLSEN on 01/15/21 0025 Levetiracetam 1,000 Mg Tablet, 1,000 MG PO TID, (Reported) Medroxyprogesterone Acetate 10 Mg Tablet, 10 MG PO DAILY Prescribed by: STEF NAVAS on 08/15/20 1647 Mometasone Furoate 45 Gm Cream..g., 45 GM TP TID Prescribed by: SHAQ OLSEN on 03/10/20 0232 Ofloxacin 5 Ml Drops, 3 DROPS RIGHT EAR BID Prescribed by: CELIA HUGHES on 07/05/20 1426 Ondansetron 4 Mg Tab.rapdis, 4 MG PO Q6H PRN for NAUSEA/VOMITING Prescribed by: HAMMAD ROACH on 04/30/21 1134 Prednisone 20 Mg Tab, 40 MG PO DAILY Prescribed by: SAHQ OLSEN on 03/10/20 0232 Patient Home Medication List Home Medication List Reviewed: Yes Review of Systems Review of Systems Constitutional: No chills, No diaphoresis, No fever; malaise EENTM: No Blurred Vision, No Double Vision Respiratory: Denies Cough, Denies Shortness of Air Gastrointestinal: Denies Abdomen Distended, Denies Abdominal Pain Genitourinary: Denies Burning, Denies Discharge Musculoskeletal: No back pain, No joint pain All Other Systems Reviewed Negative Unless Noted: Yes Past Tqvnnhp-Wnauwo-Pymlfd Hx Patient Social History Tobacco Use?: No Use of E-Cig and/or Vaping dev: No Substance use?: No Alcohol Use?: No Immunizations Up To Date Tetanus Booster (TDap): Less than 5yrs PED Vaccines UTD: Yes Second COVID19 Vaccination Alex: February 2021 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 R kidney removed. Surgeries: Yes Adenoidectomy, Ear Surgery, Nephrectomy, Renal, Tonsillectomy Respiratory: No Cardiac: Yes Heart Murmur, High Cholesterol, Hypertension, Irregular Heartbeat Neurological: Yes Headaches /Migraines, Seizure Disorder Reproductive Disorders: No Female Reproductive Disorders: Polycystic Ovarian Dis Genitourinary: Yes (only one kidney) Bladder Infection Gastrointestinal: No Musculoskeletal: No Endocrine: Yes (PCOS) HEENT: Yes (S/P BMT'S; DECREASED HEARING IN BOTH EAR;BENIGN TUMOR-ROOF OF MOUTH REMOVED) Chronic Ear Infection Hearing Impairment: Hard of Hearing Cancer: No Psychosocial: Yes Anxiety, Depression Integumentary: Yes (skin issues on lt leg) Blood Disorders: No Family Medical History No Pertinent Family Hx SOCIAL HISTORY: -ETOH--OCCASIONAL USE -DRUGS--DENIES USE -SMOKING--QUIT 2011 PMH: -HAD SEIZURES CHILD AND WAS ON MEDICATIONS UNTIL AGE 10; NO SEIZURES FOR YEARS, THEN STARTED HAVING SEIZURES AGAIN 10/2017, AND HAS BEEN BACK ON SEIZURE MEDICATIONS SINCE THEN. THEY POSSIBLY HAVE BEEN RELATED TO MIGRAINES, BUT ON PREVIOUS ER VISITS, THE SEIZURES HAVE BEEN ALL SELF-REPORTED AND NOT WITNESSED PSH: -BMT'S -REMOVAL OF BENIGN TUMOR FROM ROOF OF MOUTH -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 -TONSILLECTOMY AND ADENOIDECTOMY Physical Exam Vital Signs Vital Signs - First Documented 04/30/21 04/30/21 10:07 11:44 Temp 37.0 Pulse 82 Resp 18 B/P (MAP) 152/93 (112) Pulse Ox 98 O2 Delivery Room Air Capillary Refill : Less Than 3 Seconds Height/Weight/BMI Height: 5'5.00" Weight: 260lbs. 0oz. 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, no motor/sensory deficits, alert, normal mood/affect, oriented x 3 Skin: normal color, warm/dry Progress/Results/Core Measures Results/Orders Lab Results Laboratory Tests Test 04/30/21 10:23 Range/Units White Blood Count 10.6 4.3-11.0 10^3/uL Red Blood Count 4.42 3.80-5.11 10^6/uL Hemoglobin 11.9 11.5-16.0 g/dL Hematocrit 38 35-52 % Mean Corpuscular Volume 85 80-99 fL Mean Corpuscular Hemoglobin 27 25-34 pg Mean Corpuscular Hemoglobin Concent 32 32-36 g/dL Red Cell Distribution Width 13.8 10.0-14.5 % Platelet Count 294 130-400 10^3/uL Mean Platelet Volume 9.7 9.0-12.2 fL Immature Granulocyte % (Auto) 6 % Neutrophils (%) (Auto) 66 42-75 % Lymphocytes (%) (Auto) 18 12-44 % Monocytes (%) (Auto) 9 0-12 % Eosinophils (%) (Auto) 0 0-10 % Basophils (%) (Auto) 1 0-10 % Neutrophils # (Auto) 7.0 1.8-7.8 10^3/uL Lymphocytes # (Auto) 1.9 1.0-4.0 10^3/uL Monocytes # (Auto) 0.9 0.0-1.0 10^3/uL Eosinophils # (Auto) 0.0 0.0-0.3 10^3/uL Basophils # (Auto) 0.1 0.0-0.1 10^3/uL Immature Granulocyte # (Auto) 0.6 H 0.0-0.1 10^3/uL Sodium Level 140 135-145 MMOL/L Potassium Level 3.8 3.6-5.0 MMOL/L Chloride Level 102 98-107 MMOL/L Carbon Dioxide Level 27 21-32 MMOL/L Anion Gap 11 5-14 MMOL/L Blood Urea Nitrogen 11 7-18 MG/DL Creatinine 0.81 0.60-1.30 MG/DL Estimat Glomerular Filtration Rate > 60 BUN/Creatinine Ratio 14 Glucose Level 92 70-105 MG/DL Calcium Level 9.4 8.5-10.1 MG/DL Corrected Calcium 9.3 8.5-10.1 MG/DL Magnesium Level 1.8 1.6-2.4 MG/DL Total Bilirubin 0.2 0.1-1.0 MG/DL Aspartate Amino Transf (AST/SGOT) 17 5-34 U/L Alanine Aminotransferase (ALT/SGPT) 24 0-55 U/L Alkaline Phosphatase 64 40-136 U/L C-Reactive Protein High Sensitivity 2.59 H 0.00-0.50 MG/DL Total Protein 7.0 6.4-8.2 GM/DL Albumin 4.1 3.2-4.5 GM/DL Lipase 47 8-78 U/L Smear Scan YES My Orders Orders - HAMMAD ROACH Ekg Tracing (04/30/21 10:21) Ondansetron Injection (Zofran Injectio (04/30/21 10:30) Levetiracetam Injection (Keppra Injectio (04/30/21 10:26) Ed Iv/Invasive Line Start (04/30/21 10:26) Lactated Ringers (Lr 1000 Ml Iv Solution (04/30/21 10:30) Cbc With Automated Diff (04/30/21 10:26) Comprehensive Metabolic Panel (04/30/21 10:26) Hs C Reactive Protein (04/30/21 10:26) Lipase (04/30/21 10:26) Magnesium (04/30/21 10:26) Medications Given in ED Current Medications Medications Dose Ordered Sig/Kayode Route Start Time Stop Time Status Last Admin Dose Admin Lactated Ringer's 1,000 ml @ 0 mls/hr Q0M ONCE IV 04/30/21 10:30 04/30/21 10:31 DC 04/30/21 10:46 1,000 MLS/HR Ondansetron HCl 8 mg ONCE ONCE IVP 04/30/21 10:30 04/30/21 10:31 DC 04/30/21 10:37 8 MG Vital Signs/I&O 04/30/21 04/30/21 10:07 11:44 Temp 37.0 Pulse 82 87 Resp 18 18 B/P (MAP) 152/93 (112) 132/97 Pulse Ox 98 O2 Delivery Room Air Blood Pressure Mean: 112 Progress Progress Note #1: Time: 10:32 Progress Note It sounds like a mild case of upper gastroenteritis likely viral it caused her to have breakthrough seizures. We will give her a dose of Keppra IV, Zofran and some IV fluids and reexamine. Labs. Vital signs are aseptic. Abdominal exam unremarkable. Progress Note #2: Time: 11:28 Progress Note Patient is feeling much better. She has about half her fluids in but does not do so they want to wait for the rest of them so we will let her go home with some Zofran ODT and return precautions. Departure Impression Primary Impression: Gastroenteritis Disposition: 01 HOME, SELF-CARE Condition: Stable Departure-Patient Inst. Decision time for Depature: 11:28 Referrals: [facility]/MIGUELINA (PCP) Primary Care Physician TYSON PRIETO APRN (Family) Primary Care Physician Patient Instructions: Viral Gastroenteritis, Adult (DC) Add. Discharge Instructions: Drink plenty of fluids. Sports drinks are encouraged. Zofran ODT under the tongue every 6 hours as necessary for nausea and/or vomiting All discharge instructions reviewed with patient and/or family. Voiced understanding. Scripts Ondansetron (Ondansetron Odt) 4 Mg Tab.rapdis 4 MG PO Q6H PRN for NAUSEA/VOMITING, #10 TAB 0 Refills Prov: HAMMAD ROACH 04/30/21 HAMMAD ROACH Apr 30, 2021 10:29
[2021-04-30] MEDS ORDERED: ONDANSETRON 4 MG/2 ML (SDV) Z0FRAN IVP ONE (10:30)
[2021-04-30] MEDS ORDERED: LACTATED RINGERS 1,000 ML IV ONE (10:30)
[2021-04-30 10:33] LABS: BASOPHILS # (AUTO) 0.1 10^3/uL (0.0-0.1); BASOPHILS % (AUTO) 1 % (0-10); EOSINOPHILS % (AUTO) 0 % (0-10); HEMATOCRIT 38 % (35-52); HEMOGLOBIN 11.9 g/dL (11.5-16.0); LYMPHOCYTES # (AUTO) 1.9 10^3/uL (1.0-4.0); LYMPHOCYTES % (AUTO) 18 % (12-44); MEAN CORPUSCULAR HEMOGLOBIN 27 pg (25-34); MEAN CORPUSCULAR HGB CONC 32 g/dL (32-36); MEAN CORPUSCULAR VOLUME 85 fL (80-99); MEAN PLATELET VOLUME 9.7 fL (9.0-12.2); MONOCYTES # (AUTO) 0.9 10^3/uL (0.0-1.0); MONOCYTES % (AUTO) 9 % (0-12); NEUTROPHILS % (AUTO) 66 % (42-75); PLATELET COUNT 294 10^3/uL (130-400); WHITE BLOOD COUNT 10.6 10^3/uL (4.3-11.0)
[2021-04-30 10:34] LABS: SMEAR SCAN COMMENT YES
[2021-04-30 10:40] LABS: ALBUMIN 4.1 GM/DL (3.2-4.5); CHLORIDE 102 MMOL/L (98-107); POTASSIUM 3.8 MMOL/L (3.6-5.0); SODIUM 140 MMOL/L (135-145)
[2021-04-30 10:41] LABS: CALCIUM 9.4 MG/DL (8.5-10.1)
[2021-04-30 10:42] LABS: GLUCOSE 92 MG/DL (70-105)
[2021-04-30 10:43] LABS: CARBON DIOXIDE 27 MMOL/L (21-32)
[2021-04-30 10:44] LABS: BILIRUBIN,TOTAL 0.2 MG/DL (0.1-1.0)
[2021-04-30 10:45] LABS: ALKALINE PHOSPHATASE 64 U/L (40-136)
[2021-04-30 10:46] LABS: CREATININE SERUM 0.81 MG/DL (0.60-1.30); GFR ESTIMATED > 60
[2021-04-30 10:47] LABS: BUN/CREATININE RATIO 14
[2021-04-30 10:49] LABS: ALANINE AMINOTRANSFERASE 24 U/L (0-55); MAGNESIUM 1.8 MG/DL (1.6-2.4)
[2021-04-30 10:50] LABS: LIPASE 47 U/L (8-78)
[2021-04-30] MEDS ORDERED: ONDA4TAB11 PO (11:34)
[2021-04-30 11:44] VITALS: BP 132/97
== END 2021-04-30 11:44 | disposition home or self-care (01) ==
LOC: EDUNIT# 09:50 → ER 09:52
DX: K52.9 Noninfective gastroenteritis and colitis, unspecified (principal); I10 Essential (primary) hypertension; G40.909 Epilepsy, unspecified, not intractable, without status epilepticus; Z79.52 Long term (current) use of systemic steroids; Z79.899 Other long term (current) drug therapy
CPT/HCPCS: 36415; 80053; 83690; 83735; 85025; 86141

== ENCOUNTER 2021-05-04 20:05 | Emergency (ER) | payer OTHER ==
[~2021-05-04] VITALS: Ht 165.1 cm; Wt 130.0 kg
[2021-05-04 20:41] VITALS: BP 161/80
--- NOTE | 2021-05-04 20:49 | ED Neurological Problem ---
General Chief Complaint: Neurological Problems Stated Complaint: SEIZURES/HIT HEAD Nursing Triage Note: Pt ambulatory into ER with complaint of seizures x3 today. Pt states that she was seen in here friday for multiple seizures and was given increased dose of Keppra IV. Pt states denise she called her PCP and was told to go to ER. Pt states that she takes Keppra 1000 mg TID. Source: patient Exam Limitations: no limitations History of Present Illness Date Seen by Provider: May 04, 2021 Time Seen by Provider: 20:49 Initial Comments patient had 3 seizures today. She fell and hit her head on the floor. She takes Keppra 1000 mg 3 times a day. Timing/Duration: other Severity: moderate Associated Symptoms: seizures Allergies and Home Medications Allergies Coded Allergies: cephalexin (Verified Allergy, Severe, soa, 07/13/20) topiramate (Unverified Allergy, Intermediate, 04/30/21) hives amoxicillin (Verified Allergy, Unknown, 04/06/19) carbamazepine (Verified Allergy, Unknown, 04/06/19) shellfish derived (Verified Allergy, Unknown, 07/20/19) Penicillins (Unverified Adverse Reaction, Intermediate, 04/06/19) Sulfa (Sulfonamide Antibiotics) (Unverified Adverse Reaction, Interme diate, 04/06/19) Home Medications Butalb/Acetaminophen/Caffeine 1 Each Capsule, 2 EACH PO Q6H PRN for headache Prescribed by: CELIA HUGHES on 12/17/19 1631 Clindamycin HCl 300 Mg Capsule, 300 MG PO TID Prescribed by: STEF NAVAS on 08/15/20 1646 Cyclobenzaprine HCl 10 Mg Tablet, 10 MG PO Q8H PRN for SPASMS Prescribed by: SHAQ OLSEN on 01/15/21 0025 Levetiracetam 1,000 Mg Tablet, 1,000 MG PO TID, (Reported) Medroxyprogesterone Acetate 10 Mg Tablet, 10 MG PO DAILY Prescribed by: STEF NAVAS on 08/15/20 1647 Mometasone Furoate 45 Gm Cream..g., 45 GM TP TID Prescribed by: SHAQ OLSEN on 03/10/20 0232 Ofloxacin 5 Ml Drops, 3 DROPS RIGHT EAR BID Prescribed by: CELIA HUGHES on 07/05/20 1426 Ondansetron 4 Mg Tab.rapdis, 4 MG PO Q6H PRN for NAUSEA/VOMITING Prescribed by: HAMMAD ROACH on 04/30/21 1134 Prednisone 20 Mg Tab, 40 MG PO DAILY Prescribed by: SHAQ OLSEN on 03/10/20 0232 Patient Home Medication List Home Medication List Reviewed: Yes Review of Systems Review of Systems Constitutional: see HPI Eyes: No Symptoms Reported Ears, Nose, Mouth, Throat: no symptoms reported Cardiovascular: no symptoms reported Genitourinary: no symptoms reported Musculoskeletal: no symptoms reported Skin: no symptoms reported Psychiatric/Neurological: See HPI Endocrine: No Symptoms Reported Past Arsowvd-Pepkdg-Uixspl Hx Patient Social History Tobacco Use?: No Use of E-Cig and/or Vaping dev: No Substance use?: No Alcohol Use?: No Pt feels they are or have been: No Immunizations Up To Date Tetanus Booster (TDap): Less than 5yrs PED Vaccines UTD: Yes Second COVID19 Vaccination Alex: 03/07/21 COVID19 Vaccine [employer] 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 R kidney removed. Surgeries: Yes Adenoidectomy, Ear Surgery, Nephrectomy, Renal, Tonsillectomy Respiratory: No Cardiac: Yes Heart Murmur, High Cholesterol, Hypertension, Irregular Heartbeat Neurological: Yes Headaches /Migraines, Seizure Disorder Last Menstrual Period: May 04, 2021 Reproductive Disorders: No Female Reproductive Disorders: Polycystic Ovarian Dis Genitourinary: Yes (only one kidney) Bladder Infection Gastrointestinal: No Musculoskeletal: No Endocrine: Yes (PCOS) HEENT: Yes (S/P BMT'S; DECREASED HEARING IN BOTH EAR;BENIGN TUMOR-ROOF OF MOUTH REMOVED) Chronic Ear Infection Hearing Impairment: Hard of Hearing Cancer: No Psychosocial: Yes Anxiety, Depression Integumentary: Yes (skin issues on lt leg) Blood Disorders: No Family Medical History No Pertinent Family Hx SOCIAL HISTORY: -ETOH--OCCASIONAL USE -DRUGS--DENIES USE -SMOKING--QUIT 2011 PMH: -HAD SEIZURES CHILD AND WAS ON MEDICATIONS UNTIL AGE 10; NO SEIZURES FOR YEARS, THEN STARTED HAVING SEIZURES AGAIN 10/2017, AND HAS BEEN BACK ON SEIZURE MEDICATIONS SINCE THEN. THEY POSSIBLY HAVE BEEN RELATED TO MIGRAINES, BUT ON PREVIOUS ER VISITS, THE SEIZURES HAVE BEEN ALL SELF-REPORTED AND NOT WITNESSED PSH: -BMT'S -REMOVAL OF BENIGN TUMOR FROM ROOF OF MOUTH -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 -TONSILLECTOMY AND ADENOIDECTOMY Physical Exam Vital Signs Vital Signs - First Documented 05/04/21 20:41 Temp 36.3 Pulse 82 Resp 18 B/P (MAP) 161/80 (107) Pulse Ox 99 O2 Delivery Room Air Capillary Refill : Less Than 3 Seconds Height, Weight, BMI Height: 5'5.00" Weight: 260lbs. 0oz. 117.455643ho; 47.00 BMI Method:Actual General Appearance: WD/WN, no apparent distress HEENT: PERRL/EOMI, normal ENT inspection, other (There is no palpable scalp hematoma or depressed skull fracture. She is alert joking talking laughing with me. GCS 15.) Neck: non-tender, full range of motion Respiratory: normal breath sounds, no respiratory distress, no accessory muscle use Cardiovascular: regular rate, rhythm, no murmur Neurologic/Psychiatric: alert, normal mood/affect, oriented x 3 Crainal Nerves: normal hearing, normal speech, PERRL Progress/Results/Core Measures Results/Orders My Orders Orders - CELIA HUGHES APRN Diazepam Tablet (Valium Tablet) (05/04/21 21:00) Medications Given in ED Current Medications Medications Dose Ordered Sig/Kayode Route Start Time Stop Time Status Last Admin Dose Admin Diazepam 5 mg ONCE ONCE PO 05/04/21 21:00 05/04/21 21:01 05/04/21 20:56 5 MG Vital Signs/I&O 05/04/21 20:41 Temp 36.3 Pulse 82 Resp 18 B/P (MAP) 161/80 (107) Pulse Ox 99 O2 Delivery Room Air Blood Pressure Mean: 107 Departure Communication (Admissions) Family Conversation Due to the abundance of CT imaging that she has had for a variety of the reasons I am not going to image her head tonight and she has a normal GCS without obvious sign of head trauma. Impression Primary Impression: Hx of seizure disorder Disposition: HOME, SELF-CARE Condition: Stable Departure-Patient Inst. Decision time for Depature: 20:49 Referrals: [facility]/MIGUELINA (PCP) Primary Care Physician TYSON PRIETO APRN (Family) Primary Care Physician Patient Instructions: Seizures, Adult (DC) CELIA HUGHES APRN May 04, 2021 20:49
[2021-05-04] MEDS ORDERED: DIAZEPAM 5 MG (VALIUM) TABLET PO ONE (21:00)
== END 2021-05-04 20:58 | disposition home or self-care (01) ==
LOC: EDUNIT# 20:05 → ER 20:06
DX: G40.909 Epilepsy, unspecified, not intractable, without status epilepticus (principal); I10 Essential (primary) hypertension; Z79.52 Long term (current) use of systemic steroids
CPT/HCPCS: 99283

== ENCOUNTER 2021-05-21 07:43 | Emergency (ER) | payer OTHER ==
[~2021-05-21] VITALS: Ht 165.1 cm; Wt 137.8 kg
[2021-05-21] MEDS ORDERED: KETOROLAC 60 MG/2 ML VIAL IM STA (09:44)
--- NOTE | 2021-05-21 09:44 | ED Neurological Problem ---
General Chief Complaint: Neurological Problems Stated Complaint: SEIZURE Nursing Triage Note: Pt ambulatory to ED with c/o increase in seizures last night and this morning. Pt reports four seizures this morning despite taking Kepra 1,000mg tid. Pt c/o 10/10 generalized pain from having seizures. During assessment, pt reports having a telehealth appt with neurologist at 0845 and asked if pt could use ipad while in room to have appt. Source: patient Exam Limitations: no limitations History of Present Illness Date Seen by Provider: May 21, 2021 Time Seen by Provider: 09:28 Initial Comments Here with report of seizure this morning and pain all over afterwards. She has longstanding seizure disorder and follows with neurology. In fact she did have a neurologist appointment at 845 this morning that was a televisit. That has been delayed till this afternoon. They are working on her medications. Here basically because of the persistence of seizures and because of the pain. Normally she takes ibuprofen or Tylenol. Overall she is feeling better now and does not really want much of the visit and she will follow up with her neurologist. Timing/Duration: episodic (More frequent) Severity: moderate Associated Symptoms: No fever/chills; seizures Allergies and Home Medications Allergies Coded Allergies: cephalexin (Verified Allergy, Severe, soa, 07/13/20) topiramate (Unverified Allergy, Intermediate, 04/30/21) hives amoxicillin (Verified Allergy, Unknown, 04/06/19) carbamazepine (Verified Allergy, Unknown, 04/06/19) shellfish derived (Verified Allergy, Unknown, 07/20/19) Penicillins (Unverified Adverse Reaction, Intermediate, 04/06/19) Sulfa (Sulfonamide Antibiotics) (Unverified Adverse Reaction, Intermediate, 04/06/19) Home Medications Butalb/Acetaminophen/Caffeine 1 Each Capsule, 2 EACH PO Q6H PRN for headache Prescribed by: CELIA HUGHES on 12/17/19 1631 Clindamycin HCl 300 Mg Capsule, 300 MG PO TID Prescribed by: STEF NAVAS on 08/15/20 1646 Cyclobenzaprine HCl 10 Mg Tablet, 10 MG PO Q8H PRN for SPASMS Prescribed by: SHAQ OLSEN on 01/15/21 0025 Levetiracetam 1,000 Mg Tablet, 1,000 MG PO TID, (Reported) Medroxyprogesterone Acetate 10 Mg Tablet, 10 MG PO DAILY Prescribed by: STEF NAVAS on 08/15/20 1647 Mometasone Furoate 45 Gm Cream..g., 45 GM TP TID Prescribed by: SHAQ OLSEN on 03/10/20 0232 Ofloxacin 5 Ml Drops, 3 DROPS RIGHT EAR BID Prescribed by: CELIA HUGHES on 07/05/20 1426 Ondansetron 4 Mg Tab.rapdis, 4 MG PO Q6H PRN for NAUSEA/VOMITING Prescribed by: HAMMAD ROACH on 04/30/21 1134 Prednisone 20 Mg Tab, 40 MG PO DAILY Prescribed by: SHAQ OLSEN on 03/10/20 023 Patient Home Medication List Home Medication List Reviewed: Yes Review of Systems Review of Systems Constitutional: No chills, No fever Ears, Nose, Mouth, Throat: no symptoms reported Respiratory: no symptoms reported Musculoskeletal: muscle pain; No muscle weakness Psychiatric/Neurological: See HPI; Denies Headache; Tonic Clonic Seizures Past Kdkkcbc-Badfme-Ftghcx Hx Patient Social History Tobacco Use?: No Substance use?: No Alcohol Use?: No Pt feels they are or have been: No Immunizations Up To Date Tetanus Booster (TDap): Less than 5yrs PED Vaccines UTD: Yes Seasonal Allergies Seasonal Allergies: Yes Past Medical History Surgery/Hospitalization HX: Hx seizure disorder. R kidney removed. Surgeries: Yes Adenoidectomy, Ear Surgery, Nephrectomy, Renal, Tonsillectomy Respiratory: No Cardiac: Yes Heart Murmur, High Cholesterol, Hypertension, Irregular Heartbeat Neurological: Yes Headaches /Migraines, Seizure Disorder Reproductive Disorders: No Female Reproductive Disorders: Polycystic Ovarian Dis Genitourinary: Yes (only one kidney) Bladder Infection Gastrointestinal: No Musculoskeletal: No Endocrine: Yes (PCOS) HEENT: Yes (S/P BMT'S; DECREASED HEARING IN BOTH EAR;BENIGN TUMOR-ROOF OF MOUTH REMOVED) Chronic Ear Infection Hearing Impairment: Hard of Hearing Cancer: No Psychosocial: Yes Anxiety, Depression Integumentary: Yes (skin issues on lt leg) Blood Disorders: No Family Medical History Reviewed Nursing Family Hx No Pertinent Family Hx SOCIAL HISTORY: -ETOH--OCCASIONAL USE -DRUGS--DENIES USE -SMOKING--QUIT 2011 PMH: -HAD SEIZURES CHILD AND WAS ON MEDICATIONS UNTIL AGE 10; NO SEIZURES FOR YEARS, THEN STARTED HAVING SEIZURES AGAIN 10/2017, AND HAS BEEN BACK ON SEIZURE MEDICATIONS SINCE THEN. THEY POSSIBLY HAVE BEEN RELATED TO MIGRAINES, BUT ON PREVIOUS ER VISITS, THE SEIZURES HAVE BEEN ALL SELF-REPORTED AND NOT WITNESSED PSH: -BMT'S -REMOVAL OF BENIGN TUMOR FROM ROOF OF MOUTH -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 -TONSILLECTOMY AND ADENOIDECTOMY Physical Exam Vital Signs Vital Signs - First Documented 05/21/21 08:05 Pulse 106 Resp 18 B/P (MAP) 181/113 (135) Pulse Ox 98 O2 Delivery Room Air Capillary Refill : Less Than 3 Seconds Height, Weight, BMI Height: 5'5.00" Weight: 260lbs. 0oz. 117.468163pr; 50.00 BMI Method:Actual General Appearance: WD/WN, no apparent distress Respiratory: lungs clear, normal breath sounds Cardiovascular: regular rate, rhythm, no murmur Gastrointestinal: non tender, soft Extremities: normal range of motion, non-tender, normal inspection Neurologic/Psychiatric: alert, oriented x 3 Crainal Nerves: normal hearing, normal speech Skin: normal color, warm/dry Progress/Results/Core Measures Results/Orders My Orders Orders - RONDA CHASE MD Toradol 60 Mg Im (05/21/21 09:44) Vital Signs/I&O 05/21/21 08:05 Pulse 106 Resp 18 B/P (MAP) 181/113 (135) Pulse Ox 98 O2 Delivery Room Air Blood Pressure Mean: 135 Progress Progress Note : Progress Note Seen and evaluated. I did discuss with the patient about further evaluation. At this point she would just like a little something for pain, drink of water and she will follow up with her neurologist today. Toradol 60 mg IM. Discharged home with return precautions. Patient verbalized understanding instructions and agreement with plan. Departure Impression Primary Impression: Seizure disorder Disposition: HOME, SELF-CARE Condition: Improved Departure-Patient Inst. Decision time for Depature: 09:50 Referrals: [facility]/MIGUELINA (PCP) Primary Care Physician TYSON PRIETO APRN (Family) Primary Care Physician Patient Instructions: Seizures, Adult ED Add. Discharge Instructions: All discharge instructions reviewed with patient and/or family. Voiced understanding. Continue home medications as previously prescribed. Follow-up with your neurologist via tele appointment today as scheduled. Return for worse pain, fever, vomiting, weakness, breathing problems, persistent seizures or other concerns as needed. RONDA CHASE MD May 21, 2021 09:44
[2021-05-21 10:06] VITALS: BP 160/94
== END 2021-05-21 10:07 | disposition home or self-care (01) ==
LOC: EDUNIT# 07:43 → ER 07:44
DX: G40.909 Epilepsy, unspecified, not intractable, without status epilepticus (principal); I10 Essential (primary) hypertension; Z79.52 Long term (current) use of systemic steroids
CPT/HCPCS: 99284

== ENCOUNTER 2021-05-27 19:22 | Emergency (ER) | payer OTHER ==
[~2021-05-27] VITALS: Ht 165 cm; Wt 138.0 kg
[2021-05-27] MEDS ORDERED: KETOROLAC 15 MG/ML VIAL IVP ONE (20:00)
[2021-05-27] MEDS ORDERED: ANTACID SUSP 30 ML UDC (MYLANTA) PO ONE (20:00)
[2021-05-27] MEDS ORDERED: KETOROLAC 30 MG/ML VIAL ONE (20:04)
[2021-05-27 20:08] LABS: BASOPHILS # (AUTO) 0.1 10^3/uL (0.0-0.1); BASOPHILS % (AUTO) 1 % (0-10); EOSINOPHILS % (AUTO) 0 % (0-10); HEMATOCRIT 39 % (35-52); HEMOGLOBIN 12.7 g/dL (11.5-16.0); LYMPHOCYTES # (AUTO) 2.1 10^3/uL (1.0-4.0); LYMPHOCYTES % (AUTO) 23 % (12-44); MEAN CORPUSCULAR HEMOGLOBIN 27 pg (25-34); MEAN CORPUSCULAR HGB CONC 32 g/dL (32-36); MEAN CORPUSCULAR VOLUME 84 fL (80-99); MEAN PLATELET VOLUME 9.3 fL (9.0-12.2); MONOCYTES # (AUTO) 0.8 10^3/uL (0.0-1.0); MONOCYTES % (AUTO) 9 % (0-12); NEUTROPHILS # (AUTO) 5.7 10^3/uL (1.8-7.8); NEUTROPHILS % (AUTO) 63 % (42-75); PLATELET COUNT 350 10^3/uL (130-400); WHITE BLOOD COUNT 9.1 10^3/uL (4.3-11.0)
--- NOTE | 2021-05-27 20:19 | ED Chest Pain ---
General Chief Complaint: Chest Pain Stated Complaint: CHEST PAIN Nursing Triage Note: c/o intermittant chest pain since early am 05/27/21. reports pain increasing throughout day. Source: patient Exam Limitations: no limitations History of Present Illness Date Seen by Provider: May 27, 2021 Time Seen by Provider: 19:38 Initial Comments 25-year-old female with past medical history of seizure disorder coming in due to chest pain. The pain started when she woke up this morning around 8 AM, has been constant but does wax and wane in its intensity. It is in the left side of her chest and stays there does not radiate. Never had pain like this before. Denies any family history of early cardiac . Denies any personal cardiac history. Has never had a blood clot in her legs or lungs. Does take blood thinners. Denies hemoptysis. Has never had any recent large surgery. Denies any leg swelling or pain. The pain is better when she takes some deep breaths. She says it feels somewhat like a panic attack that she had earlier in the week. She says her mom just tried to commit suicide and she has been under a lot of stress. Allergies and Home Medications Allergies Coded Allergies: cephalexin (Verified Allergy, Severe, soa, 07/13/20) topiramate (Unverified Allergy, Intermediate, 04/30/21) hives amoxicillin (Verified Allergy, Unknown, 04/06/19) carbamazepine (Verified Allergy, Unknown, 04/06/19) shellfish derived (Verified Allergy, Unknown, 07/20/19) Penicillins (Unverified Adverse Reaction, Intermediate, 04/06/19) Sulfa (Sulfonamide Antibiotics) (Unverified Adverse Reaction, Intermediate, 04/06/19) Home Medications Butalb/Acetaminophen/Caffeine 1 Each Capsule, 2 EACH PO Q6H PRN for headache Prescribed by: CELIA HUGHES on 12/17/19 1631 Clindamycin HCl 300 Mg Capsule, 300 MG PO TID Prescribed by: STEF NAVAS on 08/15/20 1646 Cyclobenzaprine HCl 10 Mg Tablet, 10 MG PO Q8H PRN for SPASMS Prescribed by: SHAQ OLSEN on 01/15/21 0025 Levetiracetam 1,000 Mg Tablet, 1,000 MG PO TID, (Reported) Medroxyprogesterone Acetate 10 Mg Tablet, 10 MG PO DAILY Prescribed by: STEF NAVAS on 08/15/20 1647 Mometasone Furoate 45 Gm Cream..g., 45 GM TP TID Prescribed by: SHAQ OLSEN on 03/10/20 0232 Ofloxacin 5 Ml Drops, 3 DROPS RIGHT EAR BID Prescribed by: CELIA HUGHES on 07/05/20 1426 Ondansetron 4 Mg Tab.rapdis, 4 MG PO Q6H PRN for NAUSEA/VOMITING Prescribed by: HAMMAD ROACH on 04/30/21 1134 Prednisone 20 Mg Tab, 40 MG PO DAILY Prescribed by: SHAQ OLSEN on 03/10/20 023 Patient Home Medication List Home Medication List Reviewed: Yes Review of Systems Review of Systems Constitutional: No fever EENTM: No Blurred Vision Respiratory: Denies Cough, Denies Shortness of Air Cardiovascular: Chest Pain Gastrointestinal: Denies Abdominal Pain, Denies Diarrhea, Denies Nausea, Denies Vomiting Genitourinary: Denies Burning Musculoskeletal: No back pain, No joint pain Skin: No rash Psychiatric/Neurological: Anxiety; Denies Depressed Endocrine: No Symptoms Reported Hematologic/Lymphatic: No Symptoms Reported All Other Systems Reviewed Negative Unless Noted: Yes Past Qbrlnco-Jbceja-Upsqzs Hx Patient Social History Tobacco Use?: No Use of E-Cig and/or Vaping dev: No Substance use?: No Alcohol Use?: Yes Alcohol Frequency: Once in a while Pt feels they are or have been: No Immunizations Up To Date Tetanus Booster (TDap): Less than 5yrs PED Vaccines UTD: Yes Seasonal Allergies Seasonal Allergies: Yes Past Medical History Surgery/Hospitalization HX: Hx seizure disorder. R kidney removed. Surgeries: Yes Adenoidectomy, Ear Surgery, Nephrectomy, Renal, Tonsillectomy Respiratory: No Cardiac: Yes Heart Murmur, High Cholesterol, Hypertension, Irregular Heartbeat Neurological: Yes Headaches /Migraines, Seizure Disorder Reproductive Disorders: No Female Reproductive Disorders: Polycystic Ovarian Dis Genitourinary: Yes (only one kidney) Bladder Infection Gastrointestinal: No Musculoskeletal: No Endocrine: Yes (PCOS) HEENT: Yes (S/P BMT'S; DECREASED HEARING IN BOTH EAR;BENIGN TUMOR-ROOF OF MOUTH REMOVED) Chronic Ear Infection Hearing Impairment: Hard of Hearing Cancer: No Psychosocial: Yes Anxiety, Depression Integumentary: Yes (skin issues on lt leg) Blood Disorders: No Family Medical History No Pertinent Family Hx SOCIAL HISTORY: -ETOH--OCCASIONAL USE -DRUGS--DENIES USE -SMOKING--QUIT 2011 PMH: -HAD SEIZURES CHILD AND WAS ON MEDICATIONS UNTIL AGE 10; NO SEIZURES FOR YEARS, THEN STARTED HAVING SEIZURES AGAIN 10/2017, AND HAS BEEN BACK ON SEIZURE MEDICATIONS SINCE THEN. THEY POSSIBLY HAVE BEEN RELATED TO MIGRAINES, BUT ON PREVIOUS ER VISITS, THE SEIZURES HAVE BEEN ALL SELF-REPORTED AND NOT WITNESSED PSH: -BMT'S -REMOVAL OF BENIGN TUMOR FROM ROOF OF MOUTH -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 -TONSILLECTOMY AND ADENOIDECTOMY Physical Exam Vital Signs Vital Signs - First Documented Capillary Refill : Less Than 3 Seconds Height, Weight, BMI Height: 5'5.00" Weight: 260lbs. 0oz. [id number]; 50.00 BMI Method:Actual General Appearance: No Apparent Distress, WD/WN, Anxious HEENT: PERRL/EOMI, Pharynx Normal Neck: Full Range of Motion, Normal Inspection, Non Tender, Supple Respiratory: Chest Non Tender, Lungs Clear, Normal Breath Sounds, No Accessory Muscle Use, No Respiratory Distress Cardiovascular: Regular Rate, Rhythm, No Edema, No Murmur, Normal Peripheral Pulses Gastrointestinal: Normal Bowel Sounds, Non Tender, Soft; No Distended, No Guarding Extremity: Normal Capillary Refill, Normal Inspection, Normal Range of Motion, Non Tender, No Calf Tenderness Neurologic/Psychiatric: Alert, No Motor/Sensory Deficits, Normal Mood/Affect Skin: Normal Color, Warm/Dry Lymphatic: No Adenopathy Progress/Results/Core Measures Results/Orders Lab Results Laboratory Tests Test 05/27/21 19:55 Range/Units White Blood Count 9.1 4.3-11.0 10^3/uL Red Blood Count 4.66 3.80-5.11 10^6/uL Hemoglobin 12.7 11.5-16.0 g/dL Hematocrit 39 35-52 % Mean Corpuscular Volume 84 80-99 fL Mean Corpuscular Hemoglobin 27 25-34 pg Mean Corpuscular Hemoglobin Concent 32 32-36 g/dL Red Cell Distribution Width 13.9 10.0-14.5 % Platelet Count 350 130-400 10^3/uL Mean Platelet Volume 9.3 9.0-12.2 fL Immature Granulocyte % (Auto) 4 % Neutrophils (%) (Auto) 63 42-75 % Lymphocytes (%) (Auto) 23 12-44 % Monocytes (%) (Auto) 9 0-12 % Eosinophils (%) (Auto) 0 0-10 % Basophils (%) (Auto) 1 0-10 % Neutrophils # (Auto) 5.7 1.8-7.8 10^3/uL Lymphocytes # (Auto) 2.1 1.0-4.0 10^3/uL Monocytes # (Auto) 0.8 0.0-1.0 10^3/uL Eosinophils # (Auto) 0.0 0.0-0.3 10^3/uL Basophils # (Auto) 0.1 0.0-0.1 10^3/uL Immature Granulocyte # (Auto) 0.4 H 0.0-0.1 10^3/uL D-Dimer < 0.27 0.00-0.49 UG/ML Sodium Level 139 135-145 MMOL/L Potassium Level 4.4 3.6-5.0 MMOL/L Chloride Level 103 98-107 MMOL/L Carbon Dioxide Level 23 21-32 MMOL/L Anion Gap 13 5-14 MMOL/L Blood Urea Nitrogen 7 7-18 MG/DL Creatinine 0.78 0.60-1.30 MG/DL Estimat Glomerular Filtration Rate 89 BUN/Creatinine Ratio 9 Glucose Level 199 H 70-105 MG/DL Calcium Level 9.5 8.5-10.1 MG/DL Troponin I < 0.028 <0.028 NG/ML My Orders Orders - AMANDA BUENROSTRO MD Antacid Suspension (Mylanta Suspension (05/27/21 20:00) Cbc With Automated Diff (05/27/21 19:55) Chest 1 View, Ap/Pa Only (05/27/21 19:55) Ekg Tracing (05/27/21 19:55) O2 (05/27/21 19:55) Monitor-Rhythm Ecg Trace Only (05/27/21 19:55) Ed Iv/Invasive Line Start (05/27/21 19:55) Fibrin Degradation Products (05/27/21 19:55) Troponin I (05/27/21 19:55) Levetiracetam Tablet (Keppra Tablet) (05/27/21 20:00) Ketorolac Injection (Toradol Injection) (05/27/21 20:00) Basic Metabolic Panel (05/27/21 19:55) Ketorolac Injection (Toradol Injection) (05/27/21 20:04) Medications Given in ED Current Medications Medications Dose Ordered Sig/Kayode Route Start Time Stop Time Status Last Admin Dose Admin Al Hydrox/Mg Hydrox/Simethicone 30 ml ONCE ONCE PO 05/27/21 20:00 05/27/21 20:01 DC 05/27/21 20:09 30 ML Ketorolac Tromethamine 30 mg STK-MED ONCE .ROUTE 05/27/21 20:04 05/27/21 20:08 DC 05/27/21 20:10 15 MG Levetiracetam 1,000 mg ONCE ONCE PO 05/27/21 20:00 05/27/21 20:01 DC 05/27/21 20:09 1,000 MG Vital Signs/I&O 05/27/21 05/27/21 19:40 19:40 Temp 36.9 Pulse 101 Resp 20 B/P (MAP) 182/98 (126) Pulse Ox 95 O2 Delivery Room Air Room Air Blood Pressure Mean: 126 Progress Progress Note : Progress Note 25-year-old female with above history coming in due to chest pain. ABCs were in tact and vitals were stable on presentation although her heart rate is around 102. EKG obtained due to the chest pain with significant baseline wander and artifact despite multiple attempts. However she does appear to have narrow QRS with a normal axis. Potential small deflection of the Q wave in lead III. Her heart score is very low and have a very low suspicion for ACS. Troponin is ordered. Given she is on control and her heart rate is just over 100, we will get a D-dimer to further restratify her for a pulmonary embolism since I would put her in the low to moderate risk group. D-dimer was negative and troponin is negative. After she had the oral GI meds she states the pain went away. I lean towards more of a GI cause for her pain. I believe she is stable for discharge. She was sent home with strict return precautions. Diagnostic Imaging Diagonstic Imaging: Xray Plain Films/CT/US/NM/MRI: chest Comments X-ray chest ordered and interpreted by me with no obvious pneumothorax, hemothorax, or pneumonia Departure Impression Primary Impression: Chest pain Qualified Codes: R07.9 - Chest pain, unspecified Disposition: 01 HOME, SELF-CARE Condition: Stable Departure-Patient Inst. Decision time for Depature: 21:01 Referrals: [facility] (PCP) Primary Care Physician TYSON PRIETO APRN (Family) Primary Care Physician Patient Instructions: Chest Pain (DC), Acid Reflux and GERD in Adults (DC) Add. Discharge Instructions: You were seen in the emergency department for chest pain. You got better after we gave you some GI medication called Vinnyta. You can pick this up at [facility] and take it if you are having pain in the future. If you have any concerns then please come back to the emergency department. All discharge instructions reviewed with patient and/or family. Voiced understanding. AMANDA BUENROSTRO MD May 27, 2021 20:19
[2021-05-27 20:23] LABS: BUN/CREATININE RATIO 9; CALCIUM 9.5 MG/DL (8.5-10.1); CARBON DIOXIDE 23 MMOL/L (21-32); CHLORIDE 103 MMOL/L (98-107); CREATININE SERUM 0.78 MG/DL (0.60-1.30); GFR ESTIMATED 89; GLUCOSE 199 MG/DL (70-105); POTASSIUM 4.4 MMOL/L (3.6-5.0); SODIUM 139 MMOL/L (135-145)
--- NOTE | 2021-05-27 20:36 | Diagnostic Imaging Report ---
INDICATION: Chest pain. EXAMINATION: Frontal chest was obtained at 8:19 p.m. COMPARISON: 02/27/2021. FINDINGS: Heart and mediastinal silhouette are normal is appearance. There is mild central vascular congestion. There is no focal infiltrate, pneumothorax or pleural fluid. IMPRESSION: Mild central vascular congestion without nazario edema. No consolidation or pleural fluid. Stable appearance compared to 02/27/2021. Dictated by: Dictated on workstation # [id number]
[2021-05-27 21:19] VITALS: BP 163/98
== END 2021-05-27 21:18 | disposition home or self-care (01) ==
LOC: EDUNIT# 19:22 → ER 19:24
DX: R07.9 Chest pain, unspecified (principal); I10 Essential (primary) hypertension; G40.909 Epilepsy, unspecified, not intractable, without status epilepticus; Z79.52 Long term (current) use of systemic steroids; Z79.899 Other long term (current) drug therapy
CPT/HCPCS: 36415; 71045; 80048; 84484; 85025; 85379; 93005; 93041

== ENCOUNTER 2021-06-10 23:15 | Emergency (ER) | payer OTHER ==
[2021-06-11 00:29] LABS: BILIRUBIN,URINE NEGATIVE (NEGATIVE); CLARITY,URINE SL CLOUDY; COLOR,URINE RED; GLUCOSE, URINE (UA) NEGATIVE (NEGATIVE); KETONES,URINE TRACE (NEGATIVE); LEUKOCYTE ESTERASE ,URINE 1+ (NEGATIVE); NITRITE,URINE POSITIVE (NEGATIVE); PH,URINE 5.5 (5-9); PROTEIN,URINE 2+ (NEGATIVE)
[2021-06-11 00:42] LABS: BACTERIA,URINE FEW /HPF; RBC,URINE TNTC /HPF; WBC,URINE 0-2 /HPF
[2021-06-11 00:54] LABS: BASOPHILS # (AUTO) 0.1 10^3/uL (0.0-0.1); BASOPHILS % (AUTO) 1 % (0-10); EOSINOPHILS % (AUTO) 0 % (0-10); HEMATOCRIT 40 % (35-52); HEMOGLOBIN 12.8 g/dL (11.5-16.0); LYMPHOCYTES % (AUTO) 25 % (12-44); MEAN CORPUSCULAR HEMOGLOBIN 27 pg (25-34); MEAN CORPUSCULAR HGB CONC 32 g/dL (32-36); MEAN CORPUSCULAR VOLUME 84 fL (80-99); MEAN PLATELET VOLUME 9.2 fL (9.0-12.2); MONOCYTES # (AUTO) 0.7 10^3/uL (0.0-1.0); MONOCYTES % (AUTO) 9 % (0-12); NEUTROPHILS # (AUTO) 4.9 10^3/uL (1.8-7.8); NEUTROPHILS % (AUTO) 62 % (42-75); PLATELET COUNT 371 10^3/uL (130-400); WHITE BLOOD COUNT 7.9 10^3/uL (4.3-11.0)
[2021-06-11 00:55] LABS: AMPHETAMINE SCREEN, URINE NEGATIVE (NEGATIVE); BARBITURATE SCREEN URINE NEGATIVE (NEGATIVE); BENZODIAZEPINES SCREEN URINE NEGATIVE (NEGATIVE); CANNABINOID SCREEN, URINE NEGATIVE (NEGATIVE); COCAINE SCREEN URINE NEGATIVE (NEGATIVE); METHADONE STAT NEGATIVE (NEGATIVE); METHAMPHETAMINE SCREEN URINE S NEGATIVE (NEGATIVE); OPIATE SCREEN URINE NEGATIVE (NEGATIVE); OXYCODONE STAT NEGATIVE (NEGATIVE); PROPOXYPHENE STAT NEGATIVE (NEGATIVE); TRICYCLIC ANTIDEPRESSANTS SCRE POSITIVE (NEGATIVE)
[2021-06-11] MEDS ORDERED: NS 100 ML (IVPB) BAG IV ONE (01:00)
[2021-06-11] MEDS ORDERED: HOLD METFORMIN - RECEIVED CONTRAST 20 ML VIAL IV SCH (01:00)
[2021-06-11] MEDS ORDERED: IOHEXOL 350 MG/ML 100 ML (OMNIPAQUE 350) VIAL IV ONE (01:00)
[2021-06-11 01:02] LABS: ALBUMIN 4.4 GM/DL (3.2-4.5)
[2021-06-11 01:04] LABS: CALCIUM 9.4 MG/DL (8.5-10.1)
[2021-06-11 01:05] LABS: TOTAL PROTEIN 7.8 GM/DL (6.4-8.2)
[2021-06-11 01:07] LABS: BILIRUBIN,TOTAL 0.2 MG/DL (0.1-1.0)
[2021-06-11 01:09] LABS: CREATININE SERUM 0.85 MG/DL (0.60-1.30)
[2021-06-11] MEDS ORDERED: NITR-65 PO (02:07)
--- NOTE | 2021-06-11 02:07 | ED General ---
General Chief Complaint: General Problems/Pain Stated Complaint: FALL / SEIZURE / ABD PAIN Nursing Triage Note: TO ED VIA POV AND AMBULATORY TO ROOM 7 WITH C/O OF HAVING A SEIZURE AND FALLING ON STOMACH AND NOW HAS PAIN. TOOK 2 TYLENOL CHIP MUCKER. DENIES N/V. Source of Information: Patient History of Present Illness Date Seen by Provider: Jun 11, 2021 Time Seen by Provider: 00:15 Initial Comments PT ARRIVES VIA POV FROM HOME PT STATES SHE HAD A SEIZURE TONIGHT AROUND 2300, WHILE STARTING TO GET OUT OF THE BATHTUB, AND FELL ACROSS THE EDGE OF THE TUB, HITTING/LANDING ON HER STOMACH SEIZURE WAS NOT WITNESSED, PT LIVES ALONE PT HAS KNOWN SEIZURE DISORDER DID NOT HIT HEAD C/O PAIN ALL ACROSS UPPER ABDOMEN NO NAUSEA OR VOMITING. HAD NORMAL BM TODAY NO URINARY SYMPTOMS NO FEVER OR RECENT ILLNESS NO CHEST PAIN OR SHORTNESS OF BREATH TOOK 2 TYLENOL AT 2300 WITHOUT RELIEF PT HAD BOTH COVID-19 VACCINES IN February--BEGAN ON Friday06/04/21. NORMAL. ON OCP'S PT WITH A MULTITUDE OF VISITS---MANY FOR HEADACHES, SELF REPORTED SEIZURES, PAIN/INJURIES SEE PREVIOUS RECORDS FOR DETAILS PCP: [facility] Allergies and Home Medications Allergies Coded Allergies: cephalexin (Verified Allergy, Severe, soa, 07/13/20) topiramate (Unverified Allergy, Intermediate, 04/30/21) hives amoxicillin (Verified Allergy, Unknown, 04/06/19) carbamazepine (Verified Allergy, Unknown, 04/06/19) shellfish derived (Verified Allergy, Unknown, 07/20/19) Penicillins (Unverified Adverse Reaction, Intermediate, 04/06/19) Sulfa (Sulfonamide Antibiotics) (Unverified Adverse Reaction, Intermediate, 04/06/19) Home Medications Butalb/Acetaminophen/Caffeine 1 Each Capsule, 2 EACH PO Q6H PRN for headache Prescribed by: CELIA HUGHES on 12/17/19 1631 Clindamycin HCl 300 Mg Capsule, 300 MG PO TID Prescribed by: STEF NAVAS on 08/15/20 1646 Cyclobenzaprine HCl 10 Mg Tablet, 10 MG PO Q8H PRN for SPASMS Prescribed by: SHAQ OLSEN on 01/15/21 0025 Levetiracetam 1,000 Mg Tablet, 1,000 MG PO TID, (Reported) Medroxyprogesterone Acetate 10 Mg Tablet, 10 MG PO DAILY Prescribed by: STEF NAVAS on 08/15/20 1647 Mometasone Furoate 45 Gm Cream..g., 45 GM TP TID Prescribed by: SHAQ OLSEN on 03/10/20 0232 Nitrofurantoin Monohyd/M-Cryst 100 Mg Capsule, 1 TAB PO BID Prescribed by: SHAQ OLSEN on 06/11/21 0207 Ofloxacin 5 Ml Drops, 3 DROPS RIGHT EAR BID Prescribed by: CELIA HUGHES on 07/05/20 1426 Ondansetron 4 Mg Tab.rapdis, 4 MG PO Q6H PRN for NAUSEA/VOMITING Prescribed by: HAMMAD ROACH on 04/30/21 1134 Prednisone 20 Mg Tab, 40 MG PO DAILY Prescribed by: SHAQ OLSEN on 03/10/20 023 Patient Home Medication List Home Medication List Reviewed: Yes Review of Systems Review of Systems Constitutional: no symptoms reported Respiratory: no symptoms reported Cardiovascular: no symptoms reported Gastrointestinal: see HPI, abdominal pain; No diarrhea, No nausea, No vomiting Genitourinary: no symptoms reported LMP: Jun 04, 2021 Musculoskeletal: no symptoms reported Skin: no symptoms reported Psychiatric/Neurological: See HPI, Seizure Hematologic/Lymphatic: No Symptoms Reported Immunological/Allergic: no symptoms reported Past Foazbtd-Lixtgc-Ejolfq Hx Patient Social History Tobacco Use?: Yes Tobacco type used: Cigarettes Smoking Status: Former Smoker Substance use?: No Alcohol Use?: Yes Alcohol Frequency: Once in a while Immunizations Up To Date Tetanus Booster (TDap): Less than 5yrs PED Vaccines UTD: Yes Seasonal Allergies Seasonal Allergies: Yes Past Medical History Surgery/Hospitalization HX: Hx seizure disorder. R kidney removed. Surgeries: Yes Adenoidectomy, Ear Surgery, Nephrectomy, Renal, Tonsillectomy Respiratory: No Cardiac: Yes Heart Murmur, High Cholesterol, Hypertension, Irregular Heartbeat Neurological: Yes Headaches /Migraines, Seizure Disorder Reproductive Disorders: No Female Reproductive Disorders: Polycystic Ovarian Dis Genitourinary: Yes (only one kidney) Bladder Infection Gastrointestinal: No Musculoskeletal: No Endocrine: Yes (PCOS) HEENT: Yes (S/P BMT'S; DECREASED HEARING IN BOTH EAR;BENIGN TUMOR-ROOF OF MOUTH REMOVED) Chronic Ear Infection Hearing Impairment: Hard of Hearing Cancer: No Psychosocial: Yes Anxiety, Depression Integumentary: Yes (skin issues on lt leg) Blood Disorders: No Family Medical History No Pertinent Family Hx SOCIAL HISTORY: -ETOH--OCCASIONAL USE -DRUGS--DENIES USE -SMOKING--QUIT 2011 PMH: -HAD SEIZURES CHILD AND WAS ON MEDICATIONS UNTIL AGE 10; NO SEIZURES FOR YEARS, THEN STARTED HAVING SEIZURES AGAIN 10/2017, AND HAS BEEN BACK ON SEIZURE MEDICATIONS SINCE THEN. THEY POSSIBLY HAVE BEEN RELATED TO MIGRAINES, BUT ON PREVIOUS ER VISITS, THE SEIZURES HAVE BEEN ALL SELF-REPORTED AND NOT WITNESSED PSH: -BMT'S -REMOVAL OF BENIGN TUMOR FROM ROOF OF MOUTH -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 -TONSILLECTOMY AND ADENOIDECTOMY Physical Exam Vital Signs Vital Signs - First Documented 06/11/21 06/11/21 00:14 02:11 Temp 36.1 Pulse 96 Resp 16 B/P (MAP) 175/85 (115) Pulse Ox 100 O2 Delivery Room Air Capillary Refill : Less Than 3 Seconds Height, Weight, BMI Height: 5'5.00" Weight: 260lbs. 0oz. 117.264214mg; 50.00 BMI Method:Actual General Appearance: No Apparent Distress, WD/WN, Obese (MORBIDLY OBESE), Other (WALKS UPRIGHT AND MOVES WITHOUT DIFFICULTYL. DOES NOT APPEAR TO BE IN ANY DISCOMFORT OR DISTRESS. DOES NOT APPEAR POST-ICTAL. NO EXTERNAL EVIDENCE OF TRA ALFRED ANYWHERE ON BODY) HEENT: PERRL/EOMI Neck: Normal Inspection Respiratory: Chest Non Tender, Normal Breath Sounds, No Accessory Muscle Use, No Respiratory Distress Cardiovascular: Regular Rate, Rhythm, No Murmur, Normal Peripheral Pulses Gastrointestinal: Normal Bowel Sounds, Soft, Tenderness (DIFFUSE UPPER ABDOMINAL TENDERNESS, NO EXTERNAL EVIDENCE OF TRAUMA. 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 Skin: Normal Color, Warm/Dry; No Ecchymosis, No Erythema Progress/Results/Core Measures Suspected Sepsis SIRS Temperature: Pulse: 96 Respiratory Rate: 16 Laboratory Tests 06/11/21 00:45: White Blood Count 7.9 Blood Pressure 175 /85 Mean: 115 Laboratory Tests 06/11/21 00:45: Creatinine 0.85, Platelet Count 371, Total Bilirubin 0.2 Results/Orders Lab Results Laboratory Tests Test 06/11/21 00:24 06/11/21 00:45 Range/Units Urine Color RED H Urine Clarity SL CLOUDY Urine pH 5.5 5-9 Urine Specific Clark 1.025 H 1.016-1.022 Urine Protein 2+ H NEGATIVE Urine Glucose (UA) NEGATIVE NEGATIVE Urine Ketones TRACE H NEGATIVE Urine Nitrite POSITIVE H NEGATIVE Urine Bilirubin NEGATIVE NEGATIVE Urine Urobilinogen 1.0 < = 1.0 MG/DL Urine Leukocyte Esterase 1+ H NEGATIVE Urine RBC (Auto) 3+ H NEGATIVE Urine RBC TNTC H /HPF Urine WBC 0-2 /HPF Urine Squamous Epithelial Cells 10-25 H /HPF Urine Crystals NONE /LPF Urine Bacteria FEW H /HPF Urine Casts NONE /LPF Urine Mucus NEGATIVE /LPF Urine Culture Indicated YES Urine Opiates Screen NEGATIVE NEGATIVE Urine Oxycodone Screen NEGATIVE NEGATIVE Urine Methadone Screen NEGATIVE NEGATIVE Urine Propoxyphene Screen NEGATIVE NEGATIVE Urine Barbiturates Screen NEGATIVE NEGATIVE Ur Tricyclic Antidepressants Screen POSITIVE H NEGATIVE Urine Phencyclidine Screen NEGATIVE NEGATIVE Urine Amphetamines Screen NEGATIVE NEGATIVE Urine Methamphetamines Screen NEGATIVE NEGATIVE Urine Benzodiazepines Screen NEGATIVE NEGATIVE Urine Cocaine Screen NEGATIVE NEGATIVE Urine Cannabinoids Screen NEGATIVE NEGATIVE White Blood Count 7.9 4.3-11.0 10^3/uL Red Blood Count 4.79 3.80-5.11 10^6/uL Hemoglobin 12.8 11.5-16.0 g/dL Hematocrit 40 35-52 % Mean Corpuscular Volume 84 80-99 fL Mean Corpuscular Hemoglobin 27 25-34 pg Mean Corpuscular Hemoglobin Concent 32 32-36 g/dL Red Cell Distribution Width 14.3 10.0-14.5 % Platelet Count 371 130-400 10^3/uL Mean Platelet Volume 9.2 9.0-12.2 fL Immature Granulocyte % (Auto) 4 % Neutrophils (%) (Auto) 62 42-75 % Lymphocytes (%) (Auto) 25 12-44 % Monocytes (%) (Auto) 9 0-12 % Eosinophils (%) (Auto) 0 0-10 % Basophils (%) (Auto) 1 0-10 % Neutrophils # (Auto) 4.9 1.8-7.8 10^3/uL Lymphocytes # (Auto) 2.0 1.0-4.0 10^3/uL Monocytes # (Auto) 0.7 0.0-1.0 10^3/uL Eosinophils # (Auto) 0.0 0.0-0.3 10^3/uL Basophils # (Auto) 0.1 0.0-0.1 10^3/uL Immature Granulocyte # (Auto) 0.3 H 0.0-0.1 10^3/uL Sodium Level 139 135-145 MMOL/L Potassium Level 4.0 3.6-5.0 MMOL/L Chloride Level 105 98-107 MMOL/L Carbon Dioxide Level 22 21-32 MMOL/L Anion Gap 12 5-14 MMOL/L Blood Urea Nitrogen 17 7-18 MG/DL Creatinine 0.85 0.60-1.30 MG/DL Estimat Glomerular Filtration Rate 80 BUN/Creatinine Ratio 20 Glucose Level 105 70-105 MG/DL Calcium Level 9.4 8.5-10.1 MG/DL Corrected Calcium 9.1 8.5-10.1 MG/DL Total Bilirubin 0.2 0.1-1.0 MG/DL Aspartate Amino Transf (AST/SGOT) 17 5-34 U/L Alanine Aminotransferase (ALT/SGPT) 27 0-55 U/L Alkaline Phosphatase 66 40-136 U/L Total Protein 7.8 6.4-8.2 GM/DL Albumin 4.4 3.2-4.5 GM/DL Amylase Level 44 25-125 U/L Lipase 49 8-78 U/L My Orders Orders - SHAQ OLSEN DO Ed Iv/Invasive Line Start (06/11/21 00:20) Urine Bedside (06/11/21 00:20) Amylase (06/11/21 00:20) Cbc With Automated Diff (06/11/21 00:20) Comprehensive Metabolic Panel (06/11/21 00:20) Drug Screen Stat (Urine) (06/11/21 00:20) Lipase (06/11/21 00:20) Ua Culture If Indicated (06/11/21 00:20) Ct Abdomen/Pelvis W (06/11/21 00:20) Urine Culture (06/11/21 00:24) Iohexol Injection (Omnipaque 350 Mg/Ml 1 (06/11/21 01:00) Received Contrast (Hold Metformin- Contr (06/11/21 01:00) Ns (Ivpb) (Sodium Chloride 0.9% Ivpb Bag (06/11/21 01:00) Medications Given in ED Current Medications Medications Dose Ordered Sig/Kayode Route Start Time Stop Time Status Last Admin Dose Admin Iohexol 75 ml ONCE ONCE IV 06/11/21 01:00 06/11/21 01:12 DC 06/11/21 00:58 75 ML Sodium Chloride 100 ml ONCE ONCE IV 06/11/21 01:00 06/11/21 01:12 DC 06/11/21 00:58 100 ML Vital Signs/I&O 06/11/21 06/11/21 00:14 02:11 Temp 36.1 36.1 Pulse 96 87 Resp 16 16 B/P (MAP) 175/85 (115) 155/82 (115) Pulse Ox 100 O2 Delivery Room Air Room Air Capillary Refill : Less Than 3 Seconds Blood Pressure Mean: 115 Progress Note : Progress Note UNEVENTFUL ER STAY NO COMPLAINTS FOR REMAINDER OF ER STAY Diagnostic Imaging Comments CT ABDOMEN/PELVIS--NO ACUTE PROCESS, PER [facility] VIA FAX AT 0152 Reviewed: Reviewed by Me Departure Impression Primary Impression: Abdominal wall contusion Additional Impressions: UTI (urinary tract infection) Seizure disorder Disposition: HOME, SELF-CARE Condition: Stable Departure-Patient Inst. Decision time for Depature: 01:52 Referrals: [facility]UEL[facility] (PCP) Primary Care Physician TYSON PRIETO APRN (Family) Primary Care Physician Patient Instructions: Blunt Abdominal Trauma (DC), Urinary Tract Infection, Adult ED Add. Discharge Instructions: TYLENOL AND MOTRIN NEEDED FOR PAIN LOTS OF CLEAR LIQUIDS ICE TO AREA AT 20 MINUTE INTERVALS NEEDED FOR PAIN FOLLOW UP WITH YOUR DR IN 4-5 DAYS IF NO BETTER, RETURN TO ER IF WORSE All discharge instructions reviewed with patient and/or family. Voiced understanding. Scripts Nitrofurantoin Monohyd/M-Cryst (Macrobid 100 mg Capsule) 100 Mg Capsule 1 TAB PO BID, #20 CAP Prov: SHAQ OLSEN DO 06/11/21 SHAQ OLSEN DO Jun 11, 2021 02:07
[2021-06-11 02:11] VITALS: BP 155/82
--- NOTE | 2021-06-11 07:09 | Diagnostic Imaging Report ---
PROCEDURE: CT abdomen and pelvis with contrast. TECHNIQUE: Multiple contiguous axial images were obtained through the abdomen and pelvis after administration of intravenous contrast. Auto Exposure Controls were utilized during the CT exam to meet ALARA standards for radiation dose reduction. All CT scans use one or more of the following dose optimizing techniques: automated exposure control, MA and/or KvP adjustment based on patient size and exam type or iterative reconstruction. INDICATION: Abdominal pain after fall. FINDINGS: The heart size is normal. The lung bases are clear. The liver is normal in size without focal lesions. Gallbladder is unremarkable. There is no biliary duct dilatation. Spleen is normal. The pancreas and adrenal glands are unremarkable. There is marked atrophy of the right kidney. Left kidney is normal. The aorta is nonaneurysmal. The bowel gas pattern is nonspecific. There is no free air. There is no ascites. There are no focal inflammatory changes. There is no pelvic mass, adenopathy or free fluid. The osseous structures are unremarkable. IMPRESSION: Marked atrophy of the right kidney presumably nonfunctional. No other acute abnormality in the abdomen or pelvis. Dictated by: Dictated on workstation # [id number]
== END 2021-06-11 02:13 | disposition home or self-care (01) ==
LOC: EDUNIT# 23:15 → ER 23:17
DX: S30.1XXA Contusion of abdominal wall, initial encounter (principal); N39.0 Urinary tract infection, site not specified; G40.909 Epilepsy, unspecified, not intractable, without status epilepticus; E66.01 Morbid (severe) obesity due to excess calories; I10 Essential (primary) hypertension; Z68.43 Body mass index [BMI] 50.0-59.9, adult; Z79.52 Long term (current) use of systemic steroids; W22.8XXA Striking against or struck by other objects, initial encounter
CPT/HCPCS: 36415; 74177; 80053; 80306; 81000; 82150; 83690; 84703; 85025; 87088

== ENCOUNTER 2021-06-21 21:05 | Emergency (ER) | payer SELFPAY ==
--- NOTE | 2021-06-21 21:16 | ED Fall/Injury ---
General Stated Complaint: SEIZURES, HEAD INJURY Source: patient Exam Limitations: no limitations History of Present Illness Date Seen by Provider: Jun 21, 2021 Time Seen by Provider: 21:16 Initial Comments This Is a well-appearing 25-year-old female with long history of seizures who presented to the ER with complaints of headache and neck pain after hitting her head on her bathroom sink post seizure. States that she was in her bathroom and had an aura before her seizure, so she laid on the floor until procedure passed. Dates that when she was attempting to stand she slipped and hit the back of her head on the sink. She is currently on Keppra and recently had her dose increased to 1500mg twice daily. States that this has decreased her seizure frequency. No changes in vision, dizziness, weakness. Severity: moderate Allergies and Home Medications Allergies Coded Allergies: cephalexin (Verified Allergy, Severe, soa, 07/13/20) topiramate (Unverified Allergy, Intermediate, 04/30/21) hives amoxicillin (Verified Allergy, Unknown, 04/06/19) carbamazepine (Verified Allergy, Unknown, 04/06/19) shellfish derived (Verified Allergy, Unknown, 07/20/19) Penicillins (Unverified Adverse Reaction, Intermediate, 04/06/19) Sulfa (Sulfonamide Antibiotics) (Unverified Adverse Reaction, Intermediate, 04/06/19) Patient Home Medication List Home Medication List Reviewed: Yes Butalb/Acetaminophen/Caffeine (Esgic Capsule) 1 Each Capsule, 2 EACH PO Q6H PRN for headache Prescribed by: CELIA HUGHES on 12/17/19 1631 Clindamycin HCl (Clindamycin HCl) 300 Mg Capsule, 300 MG PO TID Prescribed by: STEF NAVAS on 08/15/20 1646 Cyclobenzaprine HCl (Cyclobenzaprine HCl) 10 Mg Tablet, 10 MG PO Q8H PRN for SPASMS Prescribed by: SHAQ OLSEN on 01/15/21 0025 Fluoxetine HCl (Prozac) 20 Mg Capsule, Unknown Dose PO, (Reported) Entered as Reported by: FATOUMATA LIN on 09/01/19 0445 Hydroxyzine Pamoate (Vistaril) 25 Mg Capsule, Unknown Dose PO, (Reported) Entered as Reported by: FATOUMATA LIN on 09/01/19 044 Levetiracetam (Keppra) 1,000 Mg Tablet, 1,000 MG PO TID, (Reported) Entered as Reported by: GRISELDA MARTINEZ on 07/15/19 1659 Medroxyprogesterone Acetate (Provera) 10 Mg Tablet, 10 MG PO DAILY Prescribed by: STEF NAVAS on 08/15/20 1647 Mometasone Furoate (Mometasone Furoate) 45 Gm Cream..g., 45 GM TP TID Prescribed by: SHAQ OLSEN on 03/10/20 0232 Nitrofurantoin Monohyd/M-Cryst (Macrobid 100 mg Capsule) 100 Mg Capsule, 1 TAB PO BID Prescribed by: SHAQ OLSEN on 06/11/21 0207 Ofloxacin (Floxin (Non-Formulary)) 5 Ml Drops, 3 DROPS RIGHT EAR BID Prescribed by: CELIA HUGHES on 07/05/20 1426 Ondansetron (Ondansetron Odt) 4 Mg Tab.rapdis, 4 MG PO Q6H PRN for NAUSEA/VOMITING Prescribed by: HAMMAD ROACH on 04/30/21 1134 Prednisone (Prednisone) 20 Mg Tab, 40 MG PO DAILY Prescribed by: SHAQ OLSEN on 03/10/20 0232 Review of Systems Review of Systems Constitutional: no symptoms reported Eyes: No Symptoms Reported Ears, Nose, Mouth, Throat: no symptoms reported Respiratory: no symptoms reported Cardiovascular: no symptoms reported Gastrointestinal: no symptoms reported Musculoskeletal: see HPI Skin: no symptoms reported Psychiatric/Neurological: See HPI Past Spgmkzw-Kwzbhk-Gwbxpc Hx Immunizations Up To Date Tetanus Booster (TDap): Less than 5yrs PED Vaccines UTD: Yes Seasonal Allergies Seasonal Allergies: Yes Past Medical History Surgery/Hospitalization HX: Hx seizure disorder. R kidney removed. Surgeries: Yes Adenoidectomy, Ear Surgery, Nephrectomy, Renal, Tonsillectomy Respiratory: No Cardiac: Yes Heart Murmur, High Cholesterol, Hypertension, Irregular Heartbeat Neurological: Yes Headaches /Migraines, Seizure Disorder Reproductive Disorders: No Female Reproductive Disorders: Polycystic Ovarian Dis Genitourinary: Yes (only one kidney) Bladder Infection Gastrointestinal: No Musculoskeletal: No Endocrine: Yes (PCOS) HEENT: Yes (S/P BMT'S; DECREASED HEARING IN BOTH EAR;BENIGN TUMOR-ROOF OF MOUTH REMOVED) Chronic Ear Infection Hearing Impairment: Hard of Hearing Cancer: No Psychosocial: Yes Anxiety, Depression Integumentary: Yes (skin issues on lt leg) Blood Disorders: No Family Medical History No Pertinent Family Hx SOCIAL HISTORY: -ETOH--OCCASIONAL USE -DRUGS--DENIES USE -SMOKING--QUIT 2011 PMH: -HAD SEIZURES CHILD AND WAS ON MEDICATIONS UNTIL AGE 10; NO SEIZURES FOR YEARS, THEN STARTED HAVING SEIZURES AGAIN 10/2017, AND HAS BEEN BACK ON SEIZURE MEDICATIONS SINCE THEN. THEY POSSIBLY HAVE BEEN RELATED TO MIGRAINES, BUT ON PREVIOUS ER VISITS, THE SEIZURES HAVE BEEN ALL SELF-REPORTED AND NOT WITNESSED PSH: -BMT'S -REMOVAL OF BENIGN TUMOR FROM ROOF OF MOUTH -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 -TONSILLECTOMY AND ADENOIDECTOMY Physical Exam Vital Signs Vital Signs - First Documented 06/21/21 21:14 Temp 36.3 Pulse 86 Resp 16 B/P (MAP) 148/93 (111) Pulse Ox 97 O2 Delivery Room Air Capillary Refill : Height, Weight, BMI Height: 5'5.00" Weight: 260lbs. 0oz. 117.882015cz; 50.00 BMI Method:Actual General Appearance: WD/WN, no apparent distress HEENT: PERRL/EOMI, normal ENT inspection, TMs normal, pharynx normal Neck: supple, normal inspection, tender lateral, tender midline Cardiovascular: normal peripheral pulses, regular rate, rhythm, no murmur Respiratory: chest non-tender, lungs clear, normal breath sounds, no respiratory distress Gastrointestinal: normal bowel sounds, non tender, soft Back: normal inspection, muscle spasm (paraspinous muscles ) Extremities: normal range of motion, non-tender, normal inspection Neurologic/Psychiatric: no motor/sensory deficits, alert, normal mood/affect, oriented x 3 Skin: normal color, warm/dry Bridger Coma Score Best Eye Response: (4) Open Spontaneously Best Verbal Response: (5) Oriented Best Motor Response: (6) Obeys Commands [place] Total: 15 Progress/Results/Core Measures Results/Orders My Orders Orders - DAX MCFADDEN APRN Ct Head/Cervical Spine Wo (06/21/21 21:19) Acetaminophen Tablet/Caplet (Tylenol T (06/21/21 22:15) Vital Signs/I&O 06/21/21 06/21/21 21:14 22:08 Temp 36.3 36.3 Pulse 86 90 Resp 16 16 B/P (MAP) 148/93 (111) 153/92 Pulse Ox 97 96 O2 Delivery Room Air Room Air Progress Progress Note : Progress Note [facility] [place] NAME: SAYDA JASSO [facility] REC#: [id number] PT STATUS: REG ER : 1995 PHYSICIAN: DAX MCFADDEN PROP SAWYER ADMIT DATE: 06/21/21/ER Signed Date of Exam:06/21/21 CT HEAD/CERVICAL SPINE WO PROCEDURE: CT head and CT cervical spine without contrast. TECHNIQUE: Multiple contiguous axial images were obtained through the brain and cervical spine without the use of intravenous contrast. Sagittal and coronal reformations through the cervical spine were then performed. Auto Exposure Controls were utilized during the CT exam to meet ALARA standards for radiation dose reduction. INDICATION: Pain, hit back of head on sink. COMPARISON: 04/11/2021 and 04/21/2020. FINDINGS: No intracranial hemorrhage. No intracranial mass, mass effect, midline shift, herniation, hydrocephalus or extra-axial fluid collection. No definite CT evidence of an acute ischemic infarction. The orbits are unremarkable. The calvarium and extracalvarial soft tissues are unremarkable. Poor pneumatization of the left mastoid air cells. Otherwise, the paranasal sinuses are clear. Straightening of the normal cervical lordosis without significant anterolisthesis or retrolisthesis. Evaluation of the lower cervical spine is limited secondary to overlying soft tissue densities. Alignment of the atlantooccipital joint is well maintained. Within the limits of the exam, vertebral body heights are well maintained. No severe disc space height loss. No acute fracture or dislocation. No high-grade osseous central canal or neural foraminal stenosis. No apical pneumothorax. Borderline prominence of lymph nodes within the neck, bilaterally, measuring up to 1.0 cm in short dimension. No focal fluid collection in the paraspinal soft tissues. IMPRESSION: 1. No acute intracranial abnormality. 2. No acute osseous abnormality of the cervical spine. 3. Mildly prominent bilateral cervical lymph nodes, though these are unchanged since prior imaging from April 2020. Therefore, this may simply be physiologic for the patient. 4. Straightening of the normal cervical lordosis, related to muscle spasm versus simply positional changes. Dictated by: Dictated on workstation # [id number] Dict: 06/21/212142 Trans: 06/21/212201 [facility] [id number] Interpreted by: ARMANDO SHORT MD Electronically signed by: ARMANDO SHORT MD 06/21/212201 Departure Impression Primary Impression: Seizure disorder Additional Impression: Fall on same level Disposition: 01 HOME, SELF-CARE Condition: Stable Departure-Patient Inst. Decision time for Depature: 22:04 Referrals: [facility] (PCP) Primary Care Physician TYSON PRIETO APRN (Family) Primary Care Physician Patient Instructions: Headache, Adult (DC) Add. Discharge Instructions: Plan: 1. Follow up with neurology if seizures persist. 2. May take Tylenol or Ibuprofen as needed for headache. 3. Return to ER for any new, concerning, or worsening symptoms. DAX MCFADDEN PROP SAWYER Jun 21, 2021 21:16
--- NOTE | 2021-06-21 21:56 | Diagnostic Imaging Report ---
PROCEDURE: CT head and CT cervical spine without contrast. TECHNIQUE: Multiple contiguous axial images were obtained through the brain and cervical spine without the use of intravenous contrast. Sagittal and coronal reformations through the cervical spine were then performed. Auto Exposure Controls were utilized during the CT exam to meet ALARA standards for radiation dose reduction. INDICATION: Pain, hit back of head on sink. COMPARISON: 04/11/2021 and 04/21/2020. FINDINGS: No intracranial hemorrhage. No intracranial mass, mass effect, midline shift, herniation, hydrocephalus or extra-axial fluid collection. No definite CT evidence of an acute ischemic infarction. The orbits are unremarkable. The calvarium and extracalvarial soft tissues are unremarkable. Poor pneumatization of the left mastoid air cells. Otherwise, the paranasal sinuses are clear. Straightening of the normal cervical lordosis without significant anterolisthesis or retrolisthesis. Evaluation of the lower cervical spine is limited secondary to overlying soft tissue densities. Alignment of the atlantooccipital joint is well maintained. Within the limits of the exam, vertebral body heights are well maintained. No severe disc space height loss. No acute fracture or dislocation. No high-grade osseous central canal or neural foraminal stenosis. No apical pneumothorax. Borderline prominence of lymph nodes within the neck, bilaterally, measuring up to 1.0 cm in short dimension. No focal fluid collection in the paraspinal soft tissues. IMPRESSION: 1. No acute intracranial abnormality. 2. No acute osseous abnormality of the cervical spine. 3. Mildly prominent bilateral cervical lymph nodes, though these are unchanged since prior imaging from April 2020. Therefore, this may simply be physiologic for the patient. 4. Straightening of the normal cervical lordosis, related to muscle spasm versus simply positional changes. Dictated by: Dictated on workstation # [id number]
[2021-06-21 22:08] VITALS: BP 153/92
[2021-06-21] MEDS ORDERED: ACETAMINOPHEN 325 MG TABLET PO ONE (22:15)
== END 2021-06-21 22:09 | disposition home or self-care (01) ==
LOC: EDUNIT# 21:05 → ER 21:09
DX: G40.909 Epilepsy, unspecified, not intractable, without status epilepticus (principal); I10 Essential (primary) hypertension; F41.9 Anxiety disorder, unspecified; F32.9 Major depressive disorder, single episode, unspecified; Z79.899 Other long term (current) drug therapy; Z79.52 Long term (current) use of systemic steroids
CPT/HCPCS: 70450; 72125

== ENCOUNTER 2021-06-25 13:02 | Emergency (ER) | payer SELFPAY ==
[~2021-06-25] VITALS: Ht 165.1 cm; Wt 140.6 kg
--- NOTE | 2021-06-25 13:53 | ED Neurological Problem ---
General Chief Complaint: Neurological Problems Stated Complaint: SEIZURES Source: patient Exam Limitations: no limitations History of Present Illness Date Seen by Provider: Jun 25, 2021 Time Seen by Provider: 13:40 Initial Comments Patient is a 25-year-old female who presents to the emergency department today with a chief complaint of having increased frequency of seizures over the last 2 weeks. Patient states she correlates this with starting Victoza for her diabetes. Patient states she was prescribed Victoza by [facility] clinic. She states that ever since then when she takes it she notices that she loses time at home. She states she has had at least 3 seizures today. She states she will start having her right arm contracted in and then starts shaking all over and then wakes up confused. She believes they last anywhere from a few minutes to 15 minutes. She times this secondary to watching movies on her phone and has missed portions of movies and woken up and not realized what is going on. She states this afternoon she fell in the bathroom and bruised her right lower abdomen. Denies biting her tongue or head injury. She states she gets very nauseous and vomits ever since starting the Victoza. No recent fevers chills, cough congestion burning with urination or diarrhea. Patient complains of a "minimal headache". She is concerned about vomiting up all her daily medications including her seizure medications. All other review of systems reviewed and negative except as stated. Timing/Duration: increasing Severity: moderate Associated Symptoms: other (Vomited) Allergies and Home Medications Allergies Coded Allergies: cephalexin (Verified Allergy, Severe, soa, 07/13/20) topiramate (Unverified Allergy, Intermediate, 04/30/21) hives amoxicillin (Verified Allergy, Unknown, 04/06/19) carbamazepine (Verified Allergy, Unknown, 04/06/19) shellfish derived (Verified Allergy, Unknown, 07/20/19) Penicillins (Unverified Adverse Reaction, Intermediate, 04/06/19) Sulfa (Sulfonamide Antibiotics) (Unverified Adverse Reaction, Intermediate, 04/06/19) Patient Home Medication List Home Medication List Reviewed: Yes Butalb/Acetaminophen/Caffeine (Esgic Capsule) 1 Each Capsule, 2 EACH PO Q6H PRN for headache Prescribed by: CELIA HUGHES on 12/17/19 8991 Clindamycin HCl (Clindamycin HCl) 300 Mg Capsule, 300 MG PO TID Prescribed by: STEF NAVAS on 08/15/20 1646 Cyclobenzaprine HCl (Cyclobenzaprine HCl) 10 Mg Tablet, 10 MG PO Q8H PRN for SPASMS Prescribed by: SHAQ OLSEN on 01/15/21 0025 Fluoxetine HCl (Prozac) 20 Mg Capsule, Unknown Dose PO, (Reported) Entered as Reported by: FATOUMATA LIN on 09/01/19 0445 Hydroxyzine Pamoate (Vistaril) 25 Mg Capsule, Unknown Dose PO, (Reported) Entered as Reported by: FATOUMATA LIN on 09/01/19 0445 Levetiracetam (Keppra) 1,000 Mg Tablet, 1,000 MG PO TID, (Reported) Entered as Reported by: GRISELDA MARTINEZ on 07/15/19 1659 Medroxyprogesterone Acetate (Provera) 10 Mg Tablet, 10 MG PO DAILY Prescribed by: STEF NAVAS on 08/15/20 1647 Mometasone Furoate (Mometasone Furoate) 45 Gm Cream..g., 45 GM TP TID Prescribed by: SHAQ OLSEN on 03/10/20 0232 Nitrofurantoin Monohyd/M-Cryst (Macrobid 100 mg Capsule) 100 Mg Capsule, 1 TAB PO BID Prescribed by: SHAQ OLSEN on 06/11/21 0207 Ofloxacin (Floxin (Non-Formulary)) 5 Ml Drops, 3 DROPS RIGHT EAR BID Prescribed by: CELIA HUGHES on 07/05/20 1426 Ondansetron (Ondansetron Odt) 4 Mg Tab.rapdis, 4 MG PO Q6H PRN for NAUSEA/VOMITING Prescribed by: HAMMAD ROACH on 04/30/21 1134 Prednisone (Prednisone) 20 Mg Tab, 40 MG PO DAILY Prescribed by: SHAQ OLSEN on 03/10/20 0232 Review of Systems Review of Systems Constitutional: see HPI Eyes: No Symptoms Reported Ears, Nose, Mouth, Throat: no symptoms reported Respiratory: no symptoms reported Cardiovascular: no symptoms reported Gastrointestinal: nausea, vomiting Genitourinary: no symptoms reported : No LMP: Jun 23, 2021 Musculoskeletal: no symptoms reported Skin: other (Bruise to right lower quadrant) Endocrine: Other (Increased frequency of seizure) All Other Systems Reviewed Negative Unless Noted: Yes Past Gicpqrb-Ohnhet-Mcbyvk Hx Immunizations Up To Date Tetanus Booster (TDap): Less than 5yrs PED Vaccines UTD: Yes Second COVID19 Vaccination Alex: 03/07/21 Seasonal Allergies Seasonal Allergies: Yes Past Medical History Surgery/Hospitalization HX: Hx seizure disorder. R kidney removed. Surgeries: Yes Adenoidectomy, Ear Surgery, Nephrectomy, Renal, Tonsillectomy Respiratory: No Cardiac: Yes Heart Murmur, High Cholesterol, Hypertension, Irregular Heartbeat Neurological: Yes Headaches /Migraines, Seizure Disorder Reproductive Disorders: No Female Reproductive Disorders: Polycystic Ovarian Dis Genitourinary: Yes (only one kidney) Bladder Infection Gastrointestinal: No Musculoskeletal: No Endocrine: Yes (PCOS) HEENT: Yes (S/P BMT'S; DECREASED HEARING IN BOTH EAR;BENIGN TUMOR-ROOF OF MOUTH REMOVED) Chronic Ear Infection Hearing Impairment: Hard of Hearing Cancer: No Psychosocial: Yes Anxiety, Depression Integumentary: Yes (skin issues on lt leg) Blood Disorders: No Family Medical History No Pertinent Family Hx SOCIAL HISTORY: -ETOH--OCCASIONAL USE -DRUGS--DENIES USE -SMOKING--QUIT 2011 PMH: -HAD SEIZURES CHILD AND WAS ON MEDICATIONS UNTIL AGE 10; NO SEIZURES FOR YEARS, THEN STARTED HAVING SEIZURES AGAIN 10/2017, AND HAS BEEN BACK ON SEIZURE MEDICATIONS SINCE THEN. THEY POSSIBLY HAVE BEEN RELATED TO MIGRAINES, BUT ON PREVIOUS ER VISITS, THE SEIZURES HAVE BEEN ALL SELF-REPORTED AND NOT WITNESSED PSH: -BMT'S -REMOVAL OF BENIGN TUMOR FROM ROOF OF MOUTH -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 -TONSILLECTOMY AND ADENOIDECTOMY Physical Exam Vital Signs Vital Signs - First Documented 06/25/21 13:18 Temp 36.7 Pulse 107 Resp 18 B/P (MAP) 122/64 (83) Pulse Ox 97 O2 Delivery Room Air Capillary Refill : Height, Weight, BMI Height: 5'5.00" Weight: 260lbs. 0oz. 117.034641da; 50.00 BMI Method:Actual General Appearance: WD/WN, no apparent distress HEENT: PERRL/EOMI Neck: full range of motion, normal inspection Respiratory: lungs clear, normal breath sounds, no respiratory distress, no accessory muscle use Cardiovascular: regular rate, rhythm Gastrointestinal: normal bowel sounds, non tender, soft, other (Bruising noted to the right lower quadrant of the abdomen approximately 4 cm in diameter) Extremities: normal inspection Neurologic/Psychiatric: no motor/sensory deficits, alert, normal mood/affect, oriented x 3 Crainal Nerves: normal hearing, normal speech, PERRL Coordination/Gait: normal gait Motor/Sensory: no motor deficit, no sensory deficit Skin: normal color, warm/dry Progress/Results/Core Measures Results/Orders Lab Results Laboratory Tests Test 06/25/21 13:58 Range/Units Sodium Level 139 135-145 MMOL/L Potassium Level 4.7 3.6-5.0 MMOL/L Chloride Level 107 98-107 MMOL/L Carbon Dioxide Level 22 21-32 MMOL/L Anion Gap 10 5-14 MMOL/L Blood Urea Nitrogen 14 7-18 MG/DL Creatinine 0.80 0.60-1.30 MG/DL Estimat Glomerular Filtration Rate 86 BUN/Creatinine Ratio 18 Glucose Level 119 H 70-105 MG/DL Calcium Level 8.9 8.5-10.1 MG/DL My Orders Orders - OLMAN NEWTON MD Basic Metabolic Panel (06/25/21 13:48) Acetaminophen Tablet (Tylenol Tablet) (06/25/21 14:00) Medications Given in ED Current Medications Medications Dose Ordered Sig/Kayode Route Start Time Stop Time Status Last Admin Dose Admin Acetaminophen 1,000 mg ONCE ONCE PO 06/25/21 14:00 06/25/21 14:01 DC 06/25/21 14:02 1,000 MG Vital Signs/I&O 06/25/21 13:18 Temp 36.7 Pulse 107 Resp 18 B/P (MAP) 122/64 (83) Pulse Ox 97 O2 Delivery Room Air Progress Progress Note : Time: 14:55 Progress Note Labs reviewed, electrolytes renal function and blood sugar within normal limits. Patient's vital signs have been stable. No evidence of seizure activity here in the department. Patient is counseled to stop her Victoza and to follow-up as scheduled with [facility]. She is comfortable with this plan of care. All questions are sought and answered. Departure Impression Primary Impression: Medication reaction Qualified Codes: T50.905A - Adverse effect of unspecified drugs, medicaments and biological substances, initial encounter Disposition: HOME, SELF-CARE Condition: Stable Departure-Patient Inst. Decision time for Depature: 13:53 Referrals: [facility] (PCP/Family) Primary Care Physician Patient Instructions: Adverse Drug Reactions, Adult (DC) Add. Discharge Instructions: Stop taking the Victoza. Monitor your sugars closely until you follow-up with [facility] later this month. Continue to take your Metformin. Come back to the emergency department for any new, concerning or emergent complaints. OLMAN NEWTON MD Jun 25, 2021 13:53
[2021-06-25] MEDS ORDERED: ACETAMINOPHEN 500 MG TAB (TYLENOL) PO ONE (14:00)
[2021-06-25 14:29] LABS: POTASSIUM 4.7 MMOL/L (3.6-5.0)
[2021-06-25 14:31] LABS: CALCIUM 8.9 MG/DL (8.5-10.1)
[2021-06-25 14:35] LABS: CREATININE SERUM 0.8 MG/DL (0.60-1.30)
[2021-06-25 15:01] VITALS: BP 138/84
== END 2021-06-25 15:01 | disposition home or self-care (01) ==
LOC: EDUNIT# 13:02 → ER 13:04
DX: G40.509 Epileptic seizures related to external causes, not intractable, without status epilepticus (principal); T38.3X5A Adverse effect of insulin and oral hypoglycemic [antidiabetic] drugs, initial encounter; I10 Essential (primary) hypertension; G43.909 Migraine, unspecified, not intractable, without status migrainosus; F41.9 Anxiety disorder, unspecified; F32.9 Major depressive disorder, single episode, unspecified; Z87.891 Personal history of nicotine dependence; Z79.899 Other long term (current) drug therapy
CPT/HCPCS: 36415; 80048

== ENCOUNTER 2021-07-02 18:00 | Emergency (ER) | payer SELFPAY ==
[~2021-07-02] VITALS: Ht 165.1 cm; Wt 145.1 kg
[2021-07-02 18:13] LABS: BASOPHILS # (AUTO) 0.1 10^3/uL (0.0-0.1); BASOPHILS % (AUTO) 1 % (0-10); EOSINOPHILS % (AUTO) 0 % (0-10); HEMATOCRIT 39 % (35-52); HEMOGLOBIN 12.3 g/dL (11.5-16.0); LYMPHOCYTES # (AUTO) 1.7 10^3/uL (1.0-4.0); LYMPHOCYTES % (AUTO) 17 % (12-44); MEAN CORPUSCULAR HEMOGLOBIN 26 pg (25-34); MEAN CORPUSCULAR HGB CONC 31 g/dL (32-36); MEAN CORPUSCULAR VOLUME 84 fL (80-99); MEAN PLATELET VOLUME 9.1 fL (9.0-12.2); MONOCYTES # (AUTO) 0.8 10^3/uL (0.0-1.0); MONOCYTES % (AUTO) 8 % (0-12); NEUTROPHILS # (AUTO) 6.8 10^3/uL (1.8-7.8); NEUTROPHILS % (AUTO) 69 % (42-75); PLATELET COUNT 330 10^3/uL (130-400); WHITE BLOOD COUNT 9.8 10^3/uL (4.3-11.0)
[2021-07-02 18:28] LABS: ALBUMIN 4.1 GM/DL (3.2-4.5); POTASSIUM 4.1 MMOL/L (3.6-5.0)
[2021-07-02 18:29] LABS: CALCIUM 9.1 MG/DL (8.5-10.1)
[2021-07-02 18:30] LABS: TOTAL PROTEIN 7.2 GM/DL (6.4-8.2)
--- NOTE | 2021-07-02 18:31 | ED Fall/Injury ---
General Chief Complaint: Neurological Problems Stated Complaint: FALL / SEIZURE Nursing Triage Note: PT TO ROOM 02 [facility]IA [facility] WITH C/O SEIZURE AT HOME. PT REPORTS THAT SHE HAD A SEIZURE AND THEN FELL AND HIT BACK OF HEAD ON SINK. PT REPORTS PAIN TO POST HEAD AND NECK. Source: patient, EMS, old records Exam Limitations: no limitations History of Present Illness Date Seen by Provider: Jul 02, 2021 Time Seen by Provider: 18:02 Initial Comments This 25-year-old young lady with history of seizures presents to the emergency room after having a fall in her bathroom. She is suspected of hitting her head on the toilet. She complains of posterior head and neck pain. The fall is believed to have been caused by a seizure. Patient is alert and oriented now with no focal deficits. She has been working with her neurologist to adjust her medications as she has had multiple breakthrough seizures recently. Manual cervical precautions are being observed as patient's body habitus prevents use of a c-collar. Allergies and Home Medications Allergies Coded Allergies: cephalexin (Verified Allergy, Severe, soa, 07/13/20) topiramate (Unverified Allergy, Intermediate, 04/30/21) hives amoxicillin (Verified Allergy, Unknown, 04/06/19) carbamazepine (Verified Allergy, Unknown, 04/06/19) shellfish derived (Verified Allergy, Unknown, 07/20/19) Penicillins (Unverified Adverse Reaction, Intermediate, 04/06/19) Sulfa (Sulfonamide Antibiotics) (Unverified Adverse Reaction, Intermediate, 04/06/19) Patient Home Medication List Home Medication List Reviewed: Yes Butalb/Acetaminophen/Caffeine (Esgic Capsule) 1 Each Capsule, 2 EACH PO Q6H PRN for headache Prescribed by: CELIA HUGHES on 12/17/19 1631 Clindamycin HCl (Clindamycin HCl) 300 Mg Capsule, 300 MG PO TID Prescribed by: STEF NAVAS on 08/15/20 1646 Cyclobenzaprine HCl (Cyclobenzaprine HCl) 10 Mg Tablet, 10 MG PO Q8H PRN for SPASMS Prescribed by: SHAQ OLSEN on 01/15/21 0025 Fluoxetine HCl (Prozac) 20 Mg Capsule, Unknown Dose PO, (Reported) Entered as Reported by: FATOUMATA LIN on 09/01/19 0445 Hydroxyzine Pamoate (Vistaril) 25 Mg Capsule, Unknown Dose PO, (Reported) Entered as Reported by: FATOUMATA LIN on 09/01/19 0445 Levetiracetam (Keppra) 1,000 Mg Tablet, 1,000 MG PO TID, (Reported) Entered as Reported by: GRISELDA MARTINEZ on 07/15/19 1659 Medroxyprogesterone Acetate (Provera) 10 Mg Tablet, 10 MG PO DAILY Prescribed by: STEF NAVAS on 08/15/20 1647 Mometasone Furoate (Mometasone Furoate) 45 Gm Cream..g., 45 GM TP TID Prescribed by: SHAQ OLSEN on 03/10/20 0232 Nitrofurantoin Macrocrystal (Nitrofurantoin) 100 Mg Capsule, 100 MG PO BID Prescribed by: STEF NAVAS on 07/02/21 2101 Nitrofurantoin Monohyd/M-Cryst (Macrobid 100 mg Capsule) 100 Mg Capsule, 1 TAB PO BID Prescribed by: SHAQ OLSEN on 06/11/21 0207 Ofloxacin (Floxin (Non-Formulary)) 5 Ml Drops, 3 DROPS RIGHT EAR BID Prescribed by: CELIA HUGHES on 07/05/20 1426 Ondansetron (Ondansetron Odt) 4 Mg Tab.rapdis, 4 MG PO Q6H PRN for NAUSEA/VO MITING Prescribed by: HAMMAD ROACH on 04/30/21 1134 Prednisone (Prednisone) 20 Mg Tab, 40 MG PO DAILY Prescribed by: SHAQ OLSEN on 03/10/20 0232 Review of Systems Review of Systems Constitutional: see HPI Eyes: No Symptoms Reported Ears, Nose, Mouth, Throat: no symptoms reported Respiratory: no symptoms reported Cardiovascular: no symptoms reported Gastrointestinal: no symptoms reported Genitourinary: no symptoms reported Musculoskeletal: see HPI Skin: no symptoms reported Psychiatric/Neurological: See HPI Past Hyonvuo-Umoobz-Dhvsmf Hx Patient Social History Tobacco Use?: No Smoking Status: Never a Smoker Use of E-Cig and/or Vaping dev: No Use of E-Cig and/or Vaping Andrés: Never a User Substance use?: No Alcohol Use?: No Pt feels they are or have been: No Immunizations Up To Date Tetanus Booster (TDap): Less than 5yrs PED Vaccines UTD: Yes First/Initial COVID19 Vaccinat: 01/2021 Second COVID19 Vaccination Alex: 02/2021 COVID19 Vaccine Net Maker: DAWSON Seasonal Allergies Seasonal Allergies: Yes Past Medical History Surgery/Hospitalization HX: Hx seizure disorder. R kidney removed. Surgeries: Yes Adenoidectomy, Ear Surgery, Nephrectomy, Renal, Tonsillectomy Respiratory: No Cardiac: Yes Heart Murmur, High Cholesterol, Hypertension, Irregular Heartbeat Neurological: Yes Headaches /Migraines, Seizure Disorder Reproductive Disorders: No Female Reproductive Disorders: Polycystic Ovarian Dis Genitourinary: Yes (only one kidney) Bladder Infection Gastrointestinal: No Musculoskeletal: No Endocrine: Yes (PCOS) HEENT: Yes (S/P BMT'S; DECREASED HEARING IN BOTH EAR;BENIGN TUMOR-ROOF OF MOUTH REMOVED) Chronic Ear Infection Hearing Impairment: Hard of Hearing Cancer: No Psychosocial: Yes Anxiety, Depression Integumentary: Yes (skin issues on lt leg) Blood Disorders: No Family Medical History No Pertinent Family Hx SOCIAL HISTORY: -ETOH--OCCASIONAL USE -DRUGS--DENIES USE -SMOKING--QUIT 2011 PMH: -HAD SEIZURES CHILD AND WAS ON MEDICATIONS UNTIL AGE 10; NO SEIZURES FOR YEARS, THEN STARTED HAVING SEIZURES AGAIN 10/2017, AND HAS BEEN BACK ON SEIZURE MEDICATIONS SINCE THEN. THEY POSSIBLY HAVE BEEN RELATED TO MIGRAINES, BUT ON PREVIOUS ER VISITS, THE SEIZURES HAVE BEEN ALL SELF-REPORTED AND NOT WITNESSED PSH: -BMT'S -REMOVAL OF BENIGN TUMOR FROM ROOF OF MOUTH -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 -TONSILLECTOMY AND ADENOIDECTOMY Physical Exam Vital Signs Vital Signs - First Documented 07/02/21 07/02/21 18:05 21:08 Temp 36.5 Pulse 86 Resp 17 B/P (MAP) 164/100 (121) Pulse Ox 98 O2 Delivery Room Air Capillary Refill : Less Than 3 Seconds Height, Weight, BMI Height: 5'5.00" Weight: 260lbs. 0oz. [id number]; 53.00 BMI Method:Actual General Appearance: WD/WN, no apparent distress, obese HEENT: PERRL/EOMI, normal ENT inspection, other (Tenderness over the posterior inferior scalp) Neck: normal inspection, tender midline (Posterior neck) Cardiovascular: regular rate, rhythm, no edema, no murmur Respiratory: lungs clear, normal breath sounds, no respiratory distress Gastrointestinal: non tender, soft Extremities: normal inspection, no pedal edema Neurologic/Psychiatric: analytical data miner II-XII nml as tested, no motor/sensory deficits, alert, normal mood/affect, oriented x 3 Skin: normal color, warm/dry Bridger Coma Score Best Eye Response: (4) Open Spontaneously Best Verbal Response: (5) Oriented Best Motor Response: (6) Obeys Commands [place] Total: 15 Progress/Results/Core Measures Results/Orders Lab Results Laboratory Tests Test 07/02/21 18:02 07/02/21 18:05 07/02/21 18:06 07/02/21 19:28 Range/Units Lab Scanned Report Referred Lab Report [id number] White Blood Count 9.8 4.3-11.0 10^3/uL Red Blood Count 4.69 3.80-5.11 10^6/uL Hemoglobin 12.3 11.5-16.0 g/dL Hematocrit 39 35-52 % Mean Corpuscular Volume 84 80-99 fL Mean Corpuscular Hemoglobin 26 25-34 pg Mean Corpuscular Hemoglobin Concent 31 L 32-36 g/dL Red Cell Distribution Width 14.2 10.0-14.5 % Platelet Count 330 130-400 10^3/uL Mean Platelet Volume 9.1 9.0-12.2 fL Immature Granulocyte % (Auto) 5 % Neutrophils (%) (Auto) 69 42-75 % Lymphocytes (%) (Auto) 17 12-44 % Monocytes (%) (Auto) 8 0-12 % Eosinophils (%) (Auto) 0 0-10 % Basophils (%) (Auto) 1 0-10 % Neutrophils # (Auto) 6.8 1.8-7.8 10^3/uL Lymphocytes # (Auto) 1.7 1.0-4.0 10^3/uL Monocytes # (Auto) 0.8 0.0-1.0 10^3/uL Eosinophils # (Auto) 0.0 0.0-0.3 10^3/uL Basophils # (Auto) 0.1 0.0-0.1 10^3/uL Immature Granulocyte # (Auto) 0.5 H 0.0-0.1 10^3/uL Sodium Level 140 135-145 MMOL/L Potassium Level 4.1 3.6-5.0 MMOL/L Chloride Level 104 98-107 MMOL/L Carbon Dioxide Level 26 21-32 MMOL/L Anion Gap 10 5-14 MMOL/L Blood Urea Nitrogen 9 7-18 MG/DL Creatinine 0.72 0.60-1.30 MG/DL Estimat Glomerular Filtration Rate 97 BUN/Creatinine Ratio 13 Glucose Level 97 70-105 MG/DL Calcium Level 9.1 8.5-10.1 MG/DL Corrected Calcium 9.0 8.5-10.1 MG/DL Magnesium Level 2.1 1.6-2.4 MG/DL Total Bilirubin 0.2 0.1-1.0 MG/DL Aspartate Amino Transf (AST/SGOT) 18 5-34 U/L Alanine Aminotransferase (ALT/SGPT) 29 0-55 U/L Alkaline Phosphatase 72 40-136 U/L Total Protein 7.2 6.4-8.2 GM/DL Albumin 4.1 3.2-4.5 GM/DL TSH [place] Testing 0.67 0.35-4.94 UIU/ML Serum Test, Qualitative NEGATIVE NEGATIVE Urine Color YELLOW Urine Clarity CLOUDY Urine pH 8.5 5-9 Urine Specific [place] 1.020 1.016-1.022 Urine Protein 1+ H NEGATIVE Urine Glucose (UA) NEGATIVE NEGATIVE Urine Ketones NEGATIVE NEGATIVE Urine Nitrite NEGATIVE NEGATIVE Urine Bilirubin NEGATIVE NEGATIVE Urine Urobilinogen 0.2 < = 1.0 MG/DL Urine Leukocyte Esterase 2+ H NEGATIVE Urine RBC (Auto) 3+ H NEGATIVE Urine RBC 2-5 H /HPF Urine WBC 25-50 H /HPF Urine Squamous Epithelial Cells >50 H /HPF Urine Crystals PRESENT H /LPF Urine Amorphous Sediment FEW CEDRIC PHOSPHATE H /LPF Urine Bacteria MODERATE H /HPF Urine Casts NONE /LPF Urine Mucus NEGATIVE /LPF Urine Culture Indicated YES Micro Results Microbiology 07/02/21 Urine Culture - Final, Complete Gram Pos Mixed Bacterial Rae My Orders Orders - STEF MCKNIGHT MD Cbc With Automated Diff (07/02/21 18:06) Comprehensive Metabolic Panel (07/02/21 18:06) Magnesium (07/02/21 18:06) Thyroid Analyzer (07/02/21 18:06) Ua Culture If Indicated (07/02/21 18:06) Ed Iv/Invasive Line Start (07/02/21 18:06) Ct Head/Cervical Spine Wo (07/02/21 18:06) Hcg,Qualitative Serum (07/02/21 18:34) Urine Culture (07/02/21 19:28) Ketorolac Injection (Toradol Injection) (07/02/21 20:11) Nitrofurantoin Capsule,Macro (Macrobid C (07/02/21 21:00) Vital Signs/I&O 07/02/21 07/02/21 18:05 21:08 Temp 36.5 Pulse 86 84 Resp 17 17 B/P (MAP) 164/100 (121) 148/90 Pulse Ox 98 O2 Delivery Room Air Room Air Blood Pressure Mean: 121 Progress Progress Note : Progress Note Patient was seen and examined. Labs are being processed. CT of the head and cervical spine is being obtained. Manual C-spine precautions are being observed due to inability to fit a c-collar. electronic sales and service technician was notified. Diagnostic Imaging Diagonstic Imaging: CT Plain Films/CT/US/NM/MRI: c-spine, head Comments CT head and C-spine viewed by me and preliminary report reviewed. See report below: NAME: SAYDA JASSO [facility] REC#: [id number] PT STATUS: REG ER : 1995 PHYSICIAN: STEF MCKNIGHT MD ADMIT DATE: 07/02/21/ER Draft Date of Exam:07/02/21 CT HEAD/CERVICAL SPINE WO PROCEDURE: CT head and CT cervical spine without contrast. TECHNIQUE: Multiple contiguous axial images were obtained through the brain and cervical spine without the use of intravenous contrast. Sagittal and coronal reformations through the cervical spine were then performed. Auto Exposure Controls were utilized during the CT exam to meet ALARA standards for radiation dose reduction. INDICATION: Seizure. Fall. Head and neck pain. Scalp contusion. COMPARISON: 06/21/2021. FINDINGS: CT head: No large acute territorial ischemia, mass, or hemorrhage. No midline shift or mass effect. The ventricles, cortical sulci, and basilar cisterns are patent and unremarkable. The calvarium is intact. The visualized paranasal sinuses are clear. CT cervical spine: No acute fracture or dislocation is seen in the cervical spine. No focal osseous lesions. Vertebral body heights are well-maintained. The craniocervical junction is well-maintained. Mild degenerative changes are seen in the cervical spine with disc osteophyte complexes and uncovertebral arthropathy. Soft tissues of the neck are unremarkable. IMPRESSION: 1. No hemorrhage or focal intra-axial mass. No CT evidence of large acute territorial ischemia. 2. No acute fracture or dislocation in the cervical spine. Dictated on workstation # [id number] Dict: 07/02/211907 Trans: 07/02/211911 [facility] [id number] Interpreted by: LEEROY GARCIA DO Departure Impression Primary Impression: Seizure disorder Additional Impressions: Fall on same level Qualified Codes: W18.30XA - Fall on same level, unspecified, initial encounter Closed head injury Qualified Codes: S09.90XA - Unspecified injury of head, initial encounter Urinary tract infection Qualified Codes: N39.0 - Urinary tract infection, site not specified Disposition: 01 HOME, SELF-CARE Condition: Improved Departure-Patient Inst. Decision time for Depature: 20:59 Referrals: [facility] (PCP/Family) Primary Care Physician Patient Instructions: Closed Head Injury, Seizures, Urinary Tract Infection, Adult ED Add. Discharge Instructions: Drink plenty of clear liquids to stay well-hydrated. Complete your antibiotic as prescribed. Follow-up with your primary care provider in a couple of days regarding urine culture results. Contact your neurologist tomorrow morning to discuss this breakthrough seizure and any changes that may need to be made to your medication dosages. Call with questions or concerns. Return to the ER if you have worsening symptoms. All discharge instructions reviewed with patient and/or family. Voiced understanding. Scripts Nitrofurantoin Macrocrystal (Nitrofurantoin) 100 Mg Capsule 100 MG PO BID, #14 CAP 0 Refills Prov: STEF MCKNIGHT MD 07/02/21 Copy Copies To 1: IAIN PARSONS JOSHUA T MD Jul 02, 2021 18:31
[2021-07-02 18:32] LABS: BILIRUBIN,TOTAL 0.2 MG/DL (0.1-1.0)
[2021-07-02 18:34] LABS: CREATININE SERUM 0.72 MG/DL (0.60-1.30)
[2021-07-02 18:38] LABS: MAGNESIUM 2.1 MG/DL (1.6-2.4)
[2021-07-02 18:59] LABS: TSH (THYROID ANALYZER) 0.67 UIU/ML (0.35-4.94)
--- NOTE | 2021-07-02 19:12 | Diagnostic Imaging Report ---
PROCEDURE: CT head and CT cervical spine without contrast. TECHNIQUE: Multiple contiguous axial images were obtained through the brain and cervical spine without the use of intravenous contrast. Sagittal and coronal reformations through the cervical spine were then performed. Auto Exposure Controls were utilized during the CT exam to meet ALARA standards for radiation dose reduction. INDICATION: Seizure. Fall. Head and neck pain. Scalp contusion. COMPARISON: 06/21/2021. FINDINGS: CT head: No large acute territorial ischemia, mass, or hemorrhage. No midline shift or mass effect. The ventricles, cortical sulci, and basilar cisterns are patent and unremarkable. The calvarium is intact. The visualized paranasal sinuses are clear. CT cervical spine: No acute fracture or dislocation is seen in the cervical spine. No focal osseous lesions. Vertebral body heights are well-maintained. The craniocervical junction is well-maintained. Mild degenerative changes are seen in the cervical spine with disc osteophyte complexes and uncovertebral arthropathy. Soft tissues of the neck are unremarkable. IMPRESSION: 1. No hemorrhage or focal intra-axial mass. No CT evidence of large acute territorial ischemia. 2. No acute fracture or dislocation in the cervical spine. Dictated by: Dictated on workstation # [id number]
[2021-07-02 19:44] LABS: BILIRUBIN,URINE NEGATIVE (NEGATIVE); CLARITY,URINE CLOUDY; COLOR,URINE YELLOW; GLUCOSE, URINE (UA) NEGATIVE (NEGATIVE); KETONES,URINE NEGATIVE (NEGATIVE); LEUKOCYTE ESTERASE ,URINE 2+ (NEGATIVE); NITRITE,URINE NEGATIVE (NEGATIVE); PH,URINE 8.5 (5-9); PROTEIN,URINE 1+ (NEGATIVE)
[2021-07-02] MEDS ORDERED: KETOROLAC 30 MG/ML VIAL ONE (20:11)
[2021-07-02 20:12] LABS: BACTERIA,URINE MODERATE /HPF; SQUAMOUS EPITHELIAL CELL,UR >50 /HPF; WBC,URINE 25-50 /HPF
[2021-07-02 20:13] LABS: AMORPHOUS SEDIMENT,UR FEW AMOR PHOSPHATE /LPF
[2021-07-02] MEDS ORDERED: NITROFURANTOIN 100 MG (MACROBID) CAPSULE PO ONE (21:00)
[2021-07-02] MEDS ORDERED: NITR100C PO (21:01)
[2021-07-02 21:08] VITALS: BP 148/90
== END 2021-07-02 21:08 | disposition home or self-care (01) ==
LOC: EDUNIT# 18:00 → ER 18:02
DX: S09.90XA Unspecified injury of head, initial encounter (principal); G40.909 Epilepsy, unspecified, not intractable, without status epilepticus; N39.0 Urinary tract infection, site not specified; E66.9 Obesity, unspecified; F41.9 Anxiety disorder, unspecified; F32.9 Major depressive disorder, single episode, unspecified; I10 Essential (primary) hypertension; R40.2410 Glasgow coma scale score 13-15, unspecified time; Z68.43 Body mass index [BMI] 50.0-59.9, adult; Z79.899 Other long term (current) drug therapy; W18.30XA Fall on same level, unspecified, initial encounter
CPT/HCPCS: 36415; 70450; 72125; 80053; 81000; 83735; 84443; 84703; 85025; 87088

== ENCOUNTER 2021-07-07 17:44 | Emergency (ER) | payer SELFPAY ==
[~2021-07-07] VITALS: Ht 165 cm; Wt 140.9 kg
--- NOTE | 2021-07-07 17:51 | ED Neurological Problem ---
General Stated Complaint: SEIZURE Source: patient, EMS Exam Limitations: no limitations History of Present Illness Date Seen by Provider: Jul 07, 2021 Time Seen by Provider: 17:49 Initial Comments To ER with 7 seizures today. Despite that she is not postictal upon EMS arrival. She was just here 5 days ago for the same. She is on Lamictal and Keppra. She feels as though she may have another seizure. She states that she has her Chihuahua trained to identify seizures and when it predicts a seizure it jumps up onto her chest and knocks her to the ground so that when she begins seizing she does not hurt herself. There are no bruises to indicate a fall. No abrasions. Severity: moderate Associated Symptoms: denies symptoms Allergies and Home Medications Allergies Coded Allergies: cephalexin (Verified Allergy, Severe, soa, 07/13/20) topiramate (Unverified Allergy, Intermediate, 04/30/21) hives amoxicillin (Verified Allergy, Unknown, 04/06/19) carbamazepine (Verified Allergy, Unknown, 04/06/19) shellfish derived (Verified Allergy, Unknown, 07/20/19) Penicillins (Unverified Adverse Reaction, Intermediate, 04/06/19) Sulfa (Sulfonamide Antibiotics) (Unverified Adverse Reaction, Intermediate, 04/06/19) Patient Home Medication List Home Medication List Reviewed: Yes Butalb/Acetaminophen/Caffeine (Esgic Capsule) 1 Each Capsule, 2 EACH PO Q6H PRN for headache Prescribed by: CELIA HUGHES on 12/17/19 1631 Clindamycin HCl (Clindamycin HCl) 300 Mg Capsule, 300 MG PO TID Prescribed by: STEF NAVAS on 08/15/20 1646 Cyclobenzaprine HCl (Cyclobenzaprine HCl) 10 Mg Tablet, 10 MG PO Q8H PRN for SPASMS Prescribed by: SHAQ OLSEN on 01/15/21 0025 Fluoxetine HCl (Prozac) 20 Mg Capsule, Unknown Dose PO, (Reported) Entered as Reported by: FATOUMATA LIN on 09/01/19 0445 Hydroxyzine Pamoate (Vistaril) 25 Mg Capsule, Unknown Dose PO, (Reported) Entered as Reported by: FATOUMATA LIN on 09/01/19444 Levetiracetam (Keppra) 1,000 Mg Tablet, 1,000 MG PO TID, (Reported) Entered as Reported by: GRISELDA MARTINEZ on 07/15/19 1659 Medroxyprogesterone Acetate (Provera) 10 Mg Tablet, 10 MG PO DAILY Prescribed by: STEF NAVAS on 08/15/20 1647 Mometasone Furoate (Mometasone Furoate) 45 Gm Cream..g., 45 GM TP TID Prescribed by: SHAQ OLSEN on 03/10/20 0232 Nitrofurantoin Macrocrystal (Nitrofurantoin) 100 Mg Capsule, 100 MG PO BID Prescribed by: STEF NAVAS on 07/02/21 210 Nitrofurantoin Monohyd/M-Cryst (Macrobid 100 mg Capsule) 100 Mg Capsule, 1 TAB PO BID Prescribed by: SHAQ OLSEN on 06/11/21 0207 Ofloxacin (Floxin (Non-Formulary)) 5 Ml Drops, 3 DROPS RIGHT EAR BID Prescribed by: CELIA HUGHES on 07/05/20 1426 Ondansetron (Ondansetron Odt) 4 Mg Tab.rapdis, 4 MG PO Q6H PRN for NAUSEA/VOMITING Prescribed by: HAMMAD ROACH on 04/30/21 1134 Prednisone (Prednisone) 20 Mg Tab, 40 MG PO DAILY Prescribed by: SHAQ OLSEN on 03/10/20 0232 Review of Systems Review of Systems Constitutional: see HPI Eyes: No Symptoms Reported Ears, Nose, Mouth, Throat: no symptoms reported Respiratory: no symptoms reported Cardiovascular: no symptoms reported Genitourinary: no symptoms reported Musculoskeletal: no symptoms reported Skin: no symptoms reported Psychiatric/Neurological: No Symptoms Reported (Why) Past Sxgasmq-Xubgwq-Dzbbkj Hx Immunizations Up To Date Tetanus Booster (TDap): Less than 5yrs PED Vaccines UTD: Yes First/Initial COVID19 Vaccinat: 01/2021 Second COVID19 Vaccination Alex: 02/2021 Seasonal Allergies Seasonal Allergies: Yes Past Medical History Surgery/Hospitalization HX: Hx seizure disorder. R kidney removed. Surgeries: Yes Adenoidectomy, Ear Surgery, Nephrectomy, Renal, Tonsillectomy Respiratory: No Cardiac: Yes Heart Murmur, High Cholesterol, Hypertension, Irregular Heartbeat Neurological: Yes Headaches /Migraines, Seizure Disorder Reproductive Disorders: No Female Reproductive Disorders: Polycystic Ovarian Dis Genitourinary: Yes (only one kidney) Bladder Infection Gastrointestinal: No Musculoskeletal: No Endocrine: Yes (PCOS) HEENT: Yes (S/P BMT'S; DECREASED HEARING IN BOTH EAR;BENIGN TUMOR-ROOF OF MOUTH REMOVED) Chronic Ear Infection Hearing Impairment: Hard of Hearing Cancer: No Psychosocial: Yes Anxiety, Depression Integumentary: Yes (skin issues on lt leg) Blood Disorders: No Family Medical History No Pertinent Family Hx SOCIAL HISTORY: -ETOH--OCCASIONAL USE -DRUGS--DENIES USE -SMOKING--QUIT 2011 PMH: -HAD SEIZURES CHILD AND WAS ON MEDICATIONS UNTIL AGE 10; NO SEIZURES FOR YEARS, THEN STARTED HAVING SEIZURES AGAIN 10/2017, AND HAS BEEN BACK ON SEIZURE MEDICATIONS SINCE THEN. THEY POSSIBLY HAVE BEEN RELATED TO MIGRAINES, BUT ON PREVIOUS ER VISITS, THE SEIZURES HAVE BEEN ALL SELF-REPORTED AND NOT WITNESSED PSH: -BMT'S -REMOVAL OF BENIGN TUMOR FROM ROOF OF MOUTH -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 -TONSILLECTOMY AND ADENOIDECTOMY Physical Exam Vital Signs Capillary Refill : Height, Weight, BMI Height: 5'5.00" Weight: 260lbs. 0oz. 117.468028uf; 53.00 BMI Method:Actual General Appearance: WD/WN, no apparent distress, other (She reports that she hit her head but there is no abrasion or swelling. She reports that she bit her bottom lip but there is no ecchymosis or laceration. Number of scans that she has had I do not want to reirradiate her.) HEENT: PERRL/EOMI, normal ENT inspection, TMs normal Respiratory: normal breath sounds, no respiratory distress, no accessory muscle use Cardiovascular: regular rate, rhythm, no murmur Gastrointestinal: normal bowel sounds, non tender, soft Extremities: normal range of motion, non-tender Neurologic/Psychiatric: alert, normal mood/affect, oriented x 3 Crainal Nerves: normal hearing, normal speech, PERRL Progress/Results/Core Measures Results/Orders My Orders Orders - CELIA HUGHES APRN Lorazepam Injection (Ativan Injection) (07/07/21 18:00) Departure Impression Primary Impression: chronic unwitnessed seizures Disposition: HOME, SELF-CARE Condition: Stable Departure-Patient Inst. Decision time for Depature: 17:50 Referrals: [facility] (PCP/Family) Primary Care Physician Patient Instructions: NO INSTRUCTIONS GIVEN CELIA HUGHES APRN Jul 07, 2021 17:51
[2021-07-07] MEDS ORDERED: LORazepam INJ 2 MG/ML (ATIVAN) VIAL IVP PRN (18:00)
[2021-07-07 18:10] VITALS: BP 144/100
== END 2021-07-07 18:20 | disposition home or self-care (01) ==
LOC: ER 17:46 → EDUNIT# 17:46 → ER 18:20
DX: G40.909 Epilepsy, unspecified, not intractable, without status epilepticus (principal); I10 Essential (primary) hypertension; F41.9 Anxiety disorder, unspecified; F32.9 Major depressive disorder, single episode, unspecified; Z79.899 Other long term (current) drug therapy; Z79.52 Long term (current) use of systemic steroids

== ENCOUNTER 2021-07-28 17:41 | Emergency (ER) | payer SELFPAY ==
[~2021-07-28] VITALS: Ht 165 cm; Wt 148.6 kg
[2021-07-28] MEDS ORDERED: ONDANSETRON 4 MG (ZOFRAN) ORAL DISSOLVE TAB PO ONE (18:00)
--- NOTE | 2021-07-28 18:11 | ED General ---
General Chief Complaint: General Problems/Pain Stated Complaint: NAUSEA/BLACKING OUT/ELEV BS Nursing Triage Note: AMB TO ROOM REPORTS WAS SENT BY [facility] SHE WENT FOR NAUSEA FOR 1 WEEK.AND PASSING OUT. [facility] REPORTS THAT HER BLOOD SUGAR WAS TO HI TO READ. AND WANTED HER SEEN IN ED. DENIES ANY VOMITNG ABLE TO KEEP PO LIQUIDS DOWN. Source of Information: Patient Exam Limitations: No Limitations History of Present Illness Date Seen by Provider: Jul 28, 2021 Time Seen by Provider: 18:08 Initial Comments To ER with reports that she has been passing out for 1 week with nausea. She went to [facility] this evening and found that her blood sugar was too high to read. She last knew herself to be prediabetic but is on no medications. She had to stop her Victoza because of side effects. Timing/Duration: 1 Week Severity: Moderate Associated Systoms: Denies Symptoms Allergies and Home Medications Allergies Coded Allergies: cephalexin (Verified Allergy, Severe, soa, 07/13/20) topiramate (Unverified Allergy, Intermediate, 04/30/21) hives amoxicillin (Verified Allergy, Unknown, 04/06/19) carbamazepine (Verified Allergy, Unknown, 04/06/19) shellfish derived (Verified Allergy, Unknown, 07/20/19) Penicillins (Unverified Adverse Reaction, Intermediate, 04/06/19) Sulfa (Sulfonamide Antibiotics) (Unverified Adverse Reaction, Intermediate, 04/06/19) Patient Home Medication List Home Medication List Reviewed: Yes Butalb/Acetaminophen/Caffeine (Esgic Capsule) 1 Each Capsule, 2 EACH PO Q6H PRN for headache Prescribed by: CELIA HUGHES on 12/17/19 1631 Clindamycin HCl (Clindamycin HCl) 300 Mg Capsule, 300 MG PO TID Prescribed by: STEF NAVAS on 08/15/20 1646 Cyclobenzaprine HCl (Cyclobenzaprine HCl) 10 Mg Tablet, 10 MG PO Q8H PRN for SPASMS Prescribed by: SHAQ OLSEN on 01/15/21 0025 Fluoxetine HCl (Prozac) 20 Mg Capsule, Unknown Dose PO, (Reported) Entered as Reported by: FATOUMATA LIN on 09/01/19 0445 Hydroxyzine Pamoate (Vistaril) 25 Mg Capsule, Unknown Dose PO, (Reported) Entered as Reported by: FATOUMATA LIN on 09/01/19 0445 Levetiracetam (Keppra) 1,000 Mg Tablet, 1,000 MG PO TID, (Reported) Entered as Reported by: GRISELDA MARTINEZ on 07/15/19 1659 Medroxyprogesterone Acetate (Provera) 10 Mg Tablet, 10 MG PO DAILY Prescribed by: STEF NAVAS on 08/15/20 1647 Metformin HCl (Metformin HCl) 500 Mg Tablet, 500 MG PO BID Prescribed by: CELIA HUGHES on 07/28/21 1837 Mometasone Furoate (Mometasone Furoate) 45 Gm Cream..g., 45 GM TP TID Prescribed by: SHAQ OLSEN on 03/10/20 0232 Nitrofurantoin Macrocrystal (Nitrofurantoin) 100 Mg Capsule, 100 MG PO BID Prescribed by: STEF NAVAS on 07/02/21 2101 Nitrofurantoin Monohyd/M-Cryst (Macrobid 100 mg Capsule) 100 Mg Capsule, 1 TAB PO BID Prescribed by: SHAQ OLSEN on 06/11/21 0207 Ofloxacin (Floxin (Non-Formulary)) 5 Ml Drops, 3 DROPS RIGHT EAR BID Prescribed by: CELIA HUGHES on 07/05/20 1426 Ondansetron (Ondansetron Odt) 4 Mg Tab.rapdis, 4 MG PO Q6H PRN for NAUSEA/VOMITING Prescribed by: HAMMAD ROACH on 04/30/21 1134 Prednisone (Prednisone) 20 Mg Tab, 40 MG PO DAILY Prescribed by: SHAQ OLSEN on 03/10/20 0232 Review of Systems Review of Systems Constitutional: see HPI EENTM: see HPI Respiratory: no symptoms reported Cardiovascular: no symptoms reported Genitourinary: no symptoms reported Musculoskeletal: no symptoms reported Skin: no symptoms reported Psychiatric/Neurological: No Symptoms Reported Hematologic/Lymphatic: No Symptoms Reported Past Luavmnj-Jelitq-Wyvroi Hx Immunizations Up To Date Tetanus Booster (TDap): Less than 5yrs PED Vaccines UTD: Yes First/Initial COVID19 Vaccinat: DECEMBER Second COVID19 Vaccination Alex: JANUARY Seasonal Allergies Seasonal Allergies: Yes Past Medical History Surgery/Hospitalization HX: Hx seizure disorder. R kidney removed. Surgeries: Yes Adenoidectomy, Ear Surgery, Nephrectomy, Renal, Tonsillectomy Respiratory: No Cardiac: Yes Heart Murmur, High Cholesterol, Hypertension, Irregular Heartbeat Neurological: Yes Headaches /Migraines, Seizure Disorder Reproductive Disorders: No Female Reproductive Disorders: Polycystic Ovarian Dis Genitourinary: Yes (only one kidney) Bladder Infection Gastrointestinal: No Musculoskeletal: No Endocrine: Yes (PCOS) HEENT: Yes (S/P BMT'S; DECREASED HEARING IN BOTH EAR;BENIGN TUMOR-ROOF OF MOUTH REMOVED) Chronic Ear Infection Hearing Impairment: Hard of Hearing Cancer: No Psychosocial: Yes Anxiety, Depression Integumentary: Yes (skin issues on lt leg) Blood Disorders: No Family Medical History No Pertinent Family Hx SOCIAL HISTORY: -ETOH--OCCASIONAL USE -DRUGS--DENIES USE -SMOKING--QUIT 2011 PMH: -HAD SEIZURES CHILD AND WAS ON MEDICATIONS UNTIL AGE 10; NO SEIZURES FOR YEARS, THEN STARTED HAVING SEIZURES AGAIN 10/2017, AND HAS BEEN BACK ON SEIZURE MEDICATIONS SINCE THEN. THEY POSSIBLY HAVE BEEN RELATED TO MIGRAINES, BUT ON PREVIOUS ER VISITS, THE SEIZURES HAVE BEEN ALL SELF-REPORTED AND NOT WITNESSED PSH: -BMT'S -REMOVAL OF BENIGN TUMOR FROM ROOF OF MOUTH -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 -TONSILLECTOMY AND ADENOIDECTOMY Physical Exam Vital Signs Vital Signs - First Documented 07/28/21 17:45 Temp 37.0 Pulse 121 B/P (MAP) 149/73 (98) Pulse Ox 96 Capillary Refill : Less Than 3 Seconds Height, Weight, BMI Height: 5'5.00" Weight: 260lbs. 0oz. 117.265206lk; 54.00 BMI Method:Actual General Appearance: No Apparent Distress, WD/WN, Obese Eyes: Bilateral Eye Normal Inspection, Bilateral Eye PERRL, Bilateral Eye EOMI Respiratory: No Accessory Muscle Use, No Respiratory Distress Cardiovascular: Normal Peripheral Pulses, Tachycardia Gastrointestinal: Normal Bowel Sounds, Non Tender, Soft Extremity: Normal Capillary Refill, Normal Inspection Neurologic/Psychiatric: Alert, Oriented x3 Skin: Normal Color, Warm/Dry Progress/Results/Core Measures Suspected Sepsis SIRS Temperature: Pulse: 121 Respiratory Rate: Laboratory Tests 07/28/21 18:06: White Blood Count 7.6 Blood Pressure 149 /73 Mean: 98 Laboratory Tests 07/28/21 18:06: Creatinine 0.82, Platelet Count 262, Total Bilirubin 0.3 Results/Orders Lab Results Laboratory Tests Test 07/28/21 18:03 07/28/21 18:06 07/28/21 18:39 Range/Units Glucometer 395 H 70-110 MG/DL White Blood Count 7.6 4.3-11.0 10^3/uL Red Blood Count 4.56 3.80-5.11 10^6/uL Hemoglobin 12.1 11.5-16.0 g/dL Hematocrit 38 35-52 % Mean Corpuscular Volume 82 80-99 fL Mean Corpuscular Hemoglobin 27 25-34 pg Mean Corpuscular Hemoglobin Concent 32 32-36 g/dL Red Cell Distribution Width 14.5 10.0-14.5 % Platelet Count 262 130-400 10^3/uL Mean Platelet Volume 9.6 9.0-12.2 fL Immature Granulocyte % (Auto) 3 % Neutrophils (%) (Auto) 68 42-75 % Lymphocytes (%) (Auto) 20 12-44 % Monocytes (%) (Auto) 9 0-12 % Eosinophils (%) (Auto) 0 0-10 % Basophils (%) (Auto) 1 0-10 % Neutrophils # (Auto) 5.2 1.8-7.8 10^3/uL Lymphocytes # (Auto) 1.5 1.0-4.0 10^3/uL Monocytes # (Auto) 0.7 0.0-1.0 10^3/uL Eosinophils # (Auto) 0.0 0.0-0.3 10^3/uL Basophils # (Auto) 0.1 0.0-0.1 10^3/uL Immature Granulocyte # (Auto) 0.2 H 0.0-0.1 10^3/uL Sodium Level 135 135-145 MMOL/L Potassium Level 4.3 3.6-5.0 MMOL/L Chloride Level 100 98-107 MMOL/L Carbon Dioxide Level 21 21-32 MMOL/L Anion Gap 14 5-14 MMOL/L Blood Urea Nitrogen 8 7-18 MG/DL Creatinine 0.82 0.60-1.30 MG/DL Estimat Glomerular Filtration Rate 84 BUN/Creatinine Ratio 10 Glucose Level 423 *H 70-105 MG/DL Calcium Level 9.0 8.5-10.1 MG/DL Corrected Calcium 9.1 8.5-10.1 MG/DL Total Bilirubin 0.3 0.1-1.0 MG/DL Aspartate Amino Transf (AST/SGOT) 7 5-34 U/L Alanine Aminotransferase (ALT/SGPT) 21 0-55 U/L Alkaline Phosphatase 66 40-136 U/L C-Reactive Protein High Sensitivity 2.15 H 0.00-0.50 MG/DL Total Protein 6.8 6.4-8.2 GM/DL Albumin 3.9 3.2-4.5 GM/DL Beta-Hydroxybutyrate (Chem panel) 0.12 0.00-0.27 MMOL/L Serum Test, Qualitative NEGATIVE NEGATIVE Urine Color YELLOW Urine Clarity CLOUDY Urine pH 6.0 5-9 Urine Specific [place] 1.010 L 1.016-1.022 Urine Protein TRACE H NEGATIVE Urine Glucose (UA) 3+ H NEGATIVE Urine Ketones TRACE H NEGATIVE Urine Nitrite NEGATIVE NEGATIVE Urine Bilirubin NEGATIVE NEGATIVE Urine Urobilinogen 0.2 < = 1.0 MG/DL Urine Leukocyte Esterase NEGATIVE NEGATIVE Urine RBC (Auto) 3+ H NEGATIVE Urine RBC >100 H /HPF Urine WBC 50-100 H /HPF Urine Squamous Epithelial Cells 2-5 /HPF Urine Crystals NONE /LPF Urine Bacteria MODERATE H /HPF Urine Casts NONE /LPF Urine Mucus NEGATIVE /LPF Urine Culture Indicated YES My Orders Orders - CELIA HUGHES APRN Ondansetron Oral Dissolve Tab (Zofran (07/28/21 18:00) Accucheck Stat ONCE (07/28/21 17:54) Ondansetron Injection (Zofran Injectio (07/28/21 18:15) Lactated Ringers (Lr 1000 Ml Iv Solution (07/28/21 18:15) Lactated Ringers (Lr 1000 Ml Iv Solution (07/28/21 18:15) Insulin Determir (Per Unit) (Levemir (Pe (07/28/21 18:15) Cbc With Automated Diff (07/28/21 18:07) Comprehensive Metabolic Panel (07/28/21 18:07) Hs C Reactive Protein (07/28/21 18:07) Beta Hydroxybutyrate (07/28/21 18:07) Hcg,Qualitative Serum (07/28/21 18:07) Ua Culture If Indicated (07/28/21 18:08) Urine Culture (07/28/21 18:39) Rocephin 1 Gm Iv (1x Dose) (07/28/21 19:15) Medications Given in ED Current Medications Medications Dose Ordered Sig/Kayode Route Start Time Stop Time Status Last Admin Dose Admin Insulin Detemir 10 unit ONCE ONCE SQ 07/28/21 18:15 07/28/21 18:16 DC 07/28/21 18:17 10 UNIT Ondansetron HCl 8 mg ONCE ONCE IVP 07/28/21 18:15 07/28/21 18:16 DC 07/28/21 18:15 8 MG Vital Signs/I&O 07/28/21 17:45 Temp 37.0 Pulse 121 B/P (MAP) 149/73 (98) Pulse Ox 96 Capillary Refill : Less Than 3 Seconds Blood Pressure Mean: 98 Point of Care Testing Finger Stick Blood Glucose: 395 Blood Glucose Action Taken: Martita HUGHES APRN Departure Impression Primary Impression: Diabetes mellitus Additional Impression: UTI (urinary tract infection) Disposition: HOME, SELF-CARE Condition: Stable Departure-Patient Inst. Decision time for Depature: 18:34 Referrals: [facility] (PCP/Family) Primary Care Physician Patient Instructions: Diabetes and Diet, Weight Loss Tips Add. Discharge Instructions: 1 the most effective ways of lowering blood sugar is to lose weight and exercise more. Find a diet that is acceptable to you and follow this consistently and increase activity level. All discharge instructions reviewed with patient and/or family. Voiced understanding. Scripts Cefuroxime Axetil (Cefuroxime) 250 Mg Tablet 250 MG PO BID, #10 TAB Prov: CELIA HUGHES DENTAL EQUIPMENT INSTALLER AND SERVICER 07/28/21 Metformin HCl (Metformin HCl) 500 Mg Tablet 500 MG PO BID, #30 TAB Prov: CELIA HUGHES APRN 07/28/21 CELIA HUGHES APRN Jul 28, 2021 18:10
[2021-07-28 18:12] LABS: BASOPHILS # (AUTO) 0.1 10^3/uL (0.0-0.1); BASOPHILS % (AUTO) 1 % (0-10); EOSINOPHILS % (AUTO) 0 % (0-10); HEMATOCRIT 38 % (35-52); HEMOGLOBIN 12.1 g/dL (11.5-16.0); LYMPHOCYTES # (AUTO) 1.5 10^3/uL (1.0-4.0); LYMPHOCYTES % (AUTO) 20 % (12-44); MEAN CORPUSCULAR HEMOGLOBIN 27 pg (25-34); MEAN CORPUSCULAR HGB CONC 32 g/dL (32-36); MEAN CORPUSCULAR VOLUME 82 fL (80-99); MEAN PLATELET VOLUME 9.6 fL (9.0-12.2); MONOCYTES # (AUTO) 0.7 10^3/uL (0.0-1.0); MONOCYTES % (AUTO) 9 % (0-12); NEUTROPHILS # (AUTO) 5.2 10^3/uL (1.8-7.8); NEUTROPHILS % (AUTO) 68 % (42-75); PLATELET COUNT 262 10^3/uL (130-400); WHITE BLOOD COUNT 7.6 10^3/uL (4.3-11.0)
[2021-07-28] MEDS ORDERED: LACTATED RINGERS 1,000 ML IV SCH ×2 (18:15)
[2021-07-28] MEDS ORDERED: ONDANSETRON 4 MG/2 ML (SDV) Z0FRAN IVP ONE (18:15)
[2021-07-28 18:26] LABS: ALBUMIN 3.9 GM/DL (3.2-4.5); POTASSIUM 4.3 MMOL/L (3.6-5.0)
[2021-07-28 18:28] LABS: TOTAL PROTEIN 6.8 GM/DL (6.4-8.2)
[2021-07-28 18:30] LABS: BILIRUBIN,TOTAL 0.3 MG/DL (0.1-1.0)
[2021-07-28 18:32] LABS: CREATININE SERUM 0.82 MG/DL (0.60-1.30)
[2021-07-28] MEDS ORDERED: METF-397 PO (18:37)
[2021-07-28 18:48] LABS: BILIRUBIN,URINE NEGATIVE (NEGATIVE); CLARITY,URINE CLOUDY; COLOR,URINE YELLOW; GLUCOSE, URINE (UA) 3+ (NEGATIVE); KETONES,URINE TRACE (NEGATIVE); LEUKOCYTE ESTERASE ,URINE NEGATIVE (NEGATIVE); NITRITE,URINE NEGATIVE (NEGATIVE); PROTEIN,URINE TRACE (NEGATIVE)
[2021-07-28 18:58] LABS: BACTERIA,URINE MODERATE /HPF; RBC,URINE >100 /HPF; WBC,URINE 50-100 /HPF
[2021-07-28] MEDS ORDERED: CEFU250T80 PO (19:13)
[2021-07-28] MEDS ORDERED: cefTRIAXone 1,000 MG in WATER (STERILE) FOR INJECTION 10 ML IV ONE (19:15)
[2021-07-28 20:06] VITALS: BP 138/72
== END 2021-07-28 20:06 | disposition home or self-care (01) ==
LOC: EDUNIT# 17:41 → ER 17:42
DX: E11.9 Type 2 diabetes mellitus without complications (principal); N39.0 Urinary tract infection, site not specified; E66.9 Obesity, unspecified; Z68.43 Body mass index [BMI] 50.0-59.9, adult; I10 Essential (primary) hypertension; G40.909 Epilepsy, unspecified, not intractable, without status epilepticus; F41.9 Anxiety disorder, unspecified; F32.9 Major depressive disorder, single episode, unspecified; Z79.899 Other long term (current) drug therapy
CPT/HCPCS: 36415; 80053; 81000; 82010; 82947; 84703; 85025; 86141; 87088

== ENCOUNTER → 2021-08-15 | Outpatient (CLI) | payer SELFPAY ==
[~2021-08-15] MED LIST changes: +CEFU250T80 PO; +CLIN-144 PO; -CLIN300C12 PO; +METF-397 PO
[2021-08-15 13:57] VITALS: BP 146/64
--- NOTE | 2021-08-15 15:41 | Cardiology Stress Test Report ---
Stress Test Report Date of Procedure/Referring: Date of Procedure: Aug 15, 2021 PCP Jeremías Medellin DO Admitting Physician Center[facility] Indications: CP Baseline Heart Rate: 102 Baseline Blood Pressure: Blood Pressure Systolic: 146 Blood Pressure Diastolic: 64 Baseline EKG: Baseline EKG: NSR Summary/Conclusion: Summary: In summary, the patient started exercising with a baseline heart rate, blood pressure and EKG mentioned above Patient was able to exercise for a total of 5 minutes on Rom protocol, METs 7 Maximum heart rate 172 Maximum blood pressure 254/56 Stress EKG, Minimal nondiagnostic changes Recovery EKG , Return to baseline Conclusion: 1. Fair exercise tolerance for a total of 5 minutes on Rom protocol, 7 METs, achieving 89 percent of maximum expected heart rate 2. Minimal nondiagnostic EKG changes with exercise returned to baseline during recovery 3. No arrhythmia was noted 4. Severe hypertensive response to exercise with peak blood pressure 254/56 return to baseline during recovery AG CHEW MD Aug 15, 2021 15:41
== END ==
LOC: CARD 14:00
PROVIDERS: ATTEND Pediatrics
DX: I10 Essential (primary) hypertension (principal); R07.89 Other chest pain; R60.9 Edema, unspecified
CPT/HCPCS: 93017

== ENCOUNTER 2021-08-27 00:43 | Emergency (ER) | payer OTHER ==
[~2021-08-27] VITALS: Ht 165.1 cm; Wt 145.0 kg
--- NOTE | 2021-08-27 01:07 | ED General ---
General Chief Complaint: Neurological Problems Stated Complaint: SEIZURES Source of Information: Patient, Old Records History of Present Illness Date Seen by Provider: Aug 27, 2021 Time Seen by Provider: 01:55 Initial Comments PT ARRIVES VIA POV FROM HOME--PT LIVES ALONE, STATES HER DAD BROUGHT HERE C/O "6 SEIZURES TODAY" PT STATES "NORMALLY I ONLY HAVE 2 SEIZURES A DAY" STATES "I BLACKED OUT AND HIT MY NOSE ON THE NIGHT STAND" --STATES THIS OCCURRED AT 0040 AND CAME STRAIGHT HERE NO NOSE BLEED NO OTHER INJURIES FROM THE INCIDENTS NO INCONTINENCE NO HEADACHE NO NAUSEA/VOMITING NO VISION CHANGES NO NECK PAIN NO BODY ACHES NO FEVER OR RECENT ILLNESS PT HAS HAD MODERNA COVID-19 VACCINE X 2, LAST ONE IN JANUARY 2021 THIS IS CHRONIC COMPLAINT FOR PT, HOWEVER ALL OF THESE SEIZURES ARE SELF- REPORTED, AND PATIENT STATES SHE HAS NEVER HAD AN EEG PT IS NOW FOLLOWED BY [facility] STATES SHE WAS STARTED ON KEPPRA IN MAY, AND ALSO TAKES TRILEPTAL HAS AN APPOINTMENT THIS FRIDAY THERE PT WITH MULTITUDE OF VISITS--19 VISITS IN 2020--MANY FOR SELF REPORTED SEIZURES, HEADACHES AND VARIOUS PAIN COMPLAINTS / REPORTED INJURIES. SEE PREVIOUS RECORDS FOR DETAILS PCP: [facility] Allergies and Home Medications Allergies Coded Allergies: cephalexin (Verified Allergy, Severe, soa, 07/13/20) topiramate (Unverified Allergy, Intermediate, 04/30/21) hives amoxicillin (Verified Allergy, Unknown, 04/06/19) carbamazepine (Verified Allergy, Unknown, 04/06/19) shellfish derived (Verified Allergy, Unknown, 07/20/19) Penicillins (Unverified Adverse Reaction, Intermediate, 04/06/19) Sulfa (Sulfonamide Antibiotics) (Unverified Adverse Reaction, Intermedia te, 04/06/19) Patient Home Medication List Butalb/Acetaminophen/Caffeine (Esgic Capsule) 1 Each Capsule, 2 EACH PO Q6H PRN for headache Prescribed by: CELIA HUGHES on 12/17/19 1631 Cefuroxime Axetil (Cefuroxime) 250 Mg Tablet, 250 MG PO BID Prescribed by: CELIA HUGHES on 07/28/21 1913 Clindamycin HCl (Clindamycin HCl) 300 Mg Capsule, 300 MG PO TID Prescribed by: STEF NAVAS on 08/15/20 1646 Cyclobenzaprine HCl (Cyclobenzaprine HCl) 10 Mg Tablet, 10 MG PO Q8H PRN for SPASMS Prescribed by: SHAQ OLSEN on 01/15/21 0025 Fluoxetine HCl (Prozac) 20 Mg Capsule, Unknown Dose PO, (Reported) Entered as Reported by: FATOUMATA LIN on 09/01/19 0445 Hydroxyzine Pamoate (Vistaril) 25 Mg Capsule, Unknown Dose PO, (Reported) Entered as Reported by: FATOUMATA LIN on 09/01/19 0445 Levetiracetam (Keppra) 1,000 Mg Tablet, 1,000 MG PO TID, (Reported) Entered as Reported by: GRISELDA MARTINEZ on 07/15/19 1659 Medroxyprogesterone Acetate (Provera) 10 Mg Tablet, 10 MG PO DAILY Prescribed by: STEF NAVAS on 08/15/20 1647 Metformin HCl (Metformin HCl) 500 Mg Tablet, 500 MG PO BID Prescribed by: CELIA HUGHES on 07/28/21 1837 Mometasone Furoate (Mometasone Furoate) 45 Gm Cream..g., 45 GM TP TID Prescribed by: SHAQ OLSEN on 03/10/20 0232 Nitrofurantoin Macrocrystal (Nitrofurantoin) 100 Mg Capsule, 100 MG PO BID Prescribed by: STEF NAVAS on 07/02/21 2101 Nitrofurantoin Monohyd/M-Cryst (Macrobid 100 mg Capsule) 100 Mg Capsule, 1 TAB PO BID Prescribed by: SHAQ OLSEN on 06/11/21 0207 Ofloxacin (Floxin (Non-Formulary)) 5 Ml Drops, 3 DROPS RIGHT EAR BID Prescribed by: CELIA HUGHES on 07/05/20 1426 Ondansetron (Ondansetron Odt) 4 Mg Tab.rapdis, 4 MG PO Q6H PRN for NAUSEA/VOMITING Prescribed by: HAMMAD ROACH on 04/30/21 1134 Prednisone (Prednisone) 20 Mg Tab, 40 MG PO DAILY Prescribed by: SHAQ OLSEN on 03/10/20 0232 Review of Systems Review of Systems Constitutional: no symptoms reported EENTM: see HPI Respiratory: no symptoms reported Cardiovascular: no symptoms reported Gastrointestinal: no symptoms reported Genitourinary: no symptoms reported LMP: Aug 26, 2021 Musculoskeletal: no symptoms reported Skin: no symptoms reported Psychiatric/Neurological: See HPI Hematologic/Lymphatic: No Symptoms Reported Immunological/Allergic: no symptoms reported Past Gurryni-Pligal-Kjhdvp Hx Patient Social History Tobacco Use?: No Use of E-Cig and/or Vaping dev: No Substance use?: No Alcohol Use?: No Pt feels they are or have been: No Immunizations Up To Date Tetanus Booster (TDap): Less than 5yrs PED Vaccines UTD: Yes Influenza Vaccine Up-to-Date: No; Not Current First/Initial COVID19 Vaccinat: December COVID19 Vaccination Alex: January COVID19 Vaccination Date: MODERNA Seasonal Allergies Seasonal Allergies: Yes Past Medical History Surgery/Hospitalization HX: Hx seizure disorder. R kidney removed. Surgeries: Yes Adenoidectomy, Ear Surgery, Nephrectomy, Renal, Tonsillectomy Respiratory: No Cardiac: Yes Heart Murmur, High Cholesterol, Hypertension, Irregular Heartbeat Neurological: Yes Headaches /Migraines, Seizure Disorder Reproductive Disorders: No Female Reproductive Disorders: Polycystic Ovarian Dis Genitourinary: Yes (only one kidney) Bladder Infection Gastrointestinal: No Musculoskeletal: No Endocrine: Yes (PCOS; MORBID OBESITY) HEENT: Yes (S/P BMT'S; DECREASED HEARING IN BOTH EAR;BENIGN TUMOR-ROOF OF MOUTH REMOVED) Chronic Ear Infection Hearing Impairment: Hard of Hearing Cancer: No Psychosocial: Yes Anxiety, Depression Integumentary: Yes (skin issues on lt leg) Blood Disorders: No Family Medical History No Pertinent Family Hx SOCIAL HISTORY: -ETOH--OCCASIONAL USE -DRUGS--DENIES USE -SMOKING--QUIT 2011 ADDITIONAL PAST MEDICAL HISTORY: HAD SEIZURES CHILD AND WAS ON MEDICATIONS UNTIL AGE 10; NO SEIZURES FOR YEARS, THEN STARTED HAVING SEIZURES AGAIN 10/2017, AND HAS BEEN BACK ON SEIZURE MEDICATIONS SINCE THEN. THEY POSSIBLY HAVE BEEN RELATED TO MIGRAINES, BUT ON PREVIOUS ER VISITS, THE SEIZURES HAVE BEEN ALL SELF-REPORTED AND NONE HAVE EVER BEEN WITNESSED AND PT HAS NEVER HAD AN EEG PAST SURGICAL HISTORY: -BMT'S -REMOVAL OF BENIGN TUMOR FROM ROOF OF MOUTH -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 -TONSILLECTOMY AND ADENOIDECTOMY Physical Exam Vital Signs Vital Signs - First Documented 08/27/21 00:57 Temp 36.5 Pulse 122 Resp 20 B/P (MAP) 159/77 (104) Pulse Ox 96 O2 Delivery Room Air Capillary Refill : Height, Weight, BMI Height: 5'5.00" Weight: 260lbs. 0oz. 117.194053ul; 54.00 BMI Method:Actual General Appearance: No Apparent Distress, Obese (MORBIDLY OBESE), Other (DOES NOT APPEAR POST-ICTAL OR TO BE IN ANY DISCOMFORT OR DISTRESS. WALKS WITHOUT DIFFICULTY. HAIR IS HALF BLACK/HALF WHITE) HEENT: PERRL/EOMI, Other (NO EXTERNAL EVIDENCE OF TRAUMA TO FACE OR NOSE. NO BRUSING, NO SWELLING, NO BLOOD IN NOSE OR POSTERIOR PHARYNX) Neck: Full Range of Motion, Normal Inspection, Non Tender, Supple Respiratory: Normal Breath Sounds, No Accessory Muscle Use, No Respiratory Distress Cardiovascular: Regular Rate, Rhythm, No Murmur Gastrointestinal: Non Tender, Soft Back: No CVA Tenderness, No Vertebral Tenderness Extremity: Normal Range of Motion, Non Tender Neurologic/Psychiatric: Alert, Oriented x3, No Motor/Sensory Deficits, Normal Mood/Affect, access registrar II-XII Norm as Tested Skin: Normal Color, Warm/Dry Progress/Results/Core Measures Suspected Sepsis SIRS Temperature: Pulse: Respiratory Rate: Laboratory Tests 08/27/21 01:15: White Blood Count 7.3 Blood Pressure / Mean: Laboratory Tests 08/27/21 01:15: Creatinine 0.80, Platelet Count 300, Total Bilirubin 0.1 Results/Orders Lab Results Laboratory Tests Test 08/27/21 01:05 08/27/21 01:15 Range/Units Urine Color YELLOW Urine Clarity CLEAR Urine pH 6.0 5-9 Urine Specific [place] 1.025 H 1.016-1.022 Urine Protein TRACE H NEGATIVE Urine Glucose (UA) 1+ H NEGATIVE Urine Ketones TRACE H NEGATIVE Urine Nitrite NEGATIVE NEGATIVE Urine Bilirubin NEGATIVE NEGATIVE Urine Urobilinogen 0.2 < = 1.0 MG/DL Urine Leukocyte Esterase NEGATIVE NEGATIVE Urine RBC (Auto) 3+ H NEGATIVE Urine RBC 25-50 H /HPF Urine WBC 0-2 /HPF Urine Squamous Epithelial Cells 2-5 /HPF Urine Crystals NONE /LPF Urine Bacteria TRACE /HPF Urine Casts NONE /LPF Urine Mucus NEGATIVE /LPF Urine Culture Indicated NO Urine Opiates Screen NEGATIVE NEGATIVE Urine Oxycodone Screen NEGATIVE NEGATIVE Urine Methadone Screen NEGATIVE NEGATIVE Urine Propoxyphene Screen NEGATIVE NEGATIVE Urine Barbiturates Screen NEGATIVE NEGATIVE Ur Tricyclic Antidepressants Screen POSITIVE H NEGATIVE Urine Phencyclidine Screen NEGATIVE NEGATIVE Urine Amphetamines Screen NEGATIVE NEGATIVE Urine Methamphetamines Screen NEGATIVE NEGATIVE Urine Benzodiazepines Screen NEGATIVE NEGATIVE Urine Cocaine Screen NEGATIVE NEGATIVE Urine Cannabinoids Screen NEGATIVE NEGATIVE White Blood Count 7.3 4.3-11.0 10^3/uL Red Blood Count 4.47 3.80-5.11 10^6/uL Hemoglobin 11.8 11.5-16.0 g/dL Hematocrit 37 35-52 % Mean Corpuscular Volume 83 80-99 fL Mean Corpuscular Hemoglobin 26 25-34 pg Mean Corpuscular Hemoglobin Concent 32 32-36 g/dL Red Cell Distribution Width 15.0 H 10.0-14.5 % Platelet Count 300 130-400 10^3/uL Mean Platelet Volume 9.7 9.0-12.2 fL Immature Granulocyte % (Auto) 3 % Neutrophils (%) (Auto) 58 42-75 % Lymphocytes (%) (Auto) 27 12-44 % Monocytes (%) (Auto) 12 0-12 % Eosinophils (%) (Auto) 0 0-10 % Basophils (%) (Auto) 1 0-10 % Neutrophils # (Auto) 4.2 1.8-7.8 10^3/uL Lymphocytes # (Auto) 2.0 1.0-4.0 10^3/uL Monocytes # (Auto) 0.8 0.0-1.0 10^3/uL Eosinophils # (Auto) 0.0 0.0-0.3 10^3/uL Basophils # (Auto) 0.1 0.0-0.1 10^3/uL Immature Granulocyte # (Auto) 0.2 H 0.0-0.1 10^3/uL Sodium Level 142 135-145 MMOL/L Potassium Level 3.6 3.6-5.0 MMOL/L Chloride Level 104 98-107 MMOL/L Carbon Dioxide Level 20 L 21-32 MMOL/L Anion Gap 18 H 5-14 MMOL/L Blood Urea Nitrogen 10 7-18 MG/DL Creatinine 0.80 0.60-1.30 MG/DL Estimat Glomerular Filtration Rate 86 BUN/Creatinine Ratio 13 Glucose Level 236 H 70-105 MG/DL Calcium Level 8.6 8.5-10.1 MG/DL Corrected Calcium 8.5 8.5-10.1 MG/DL Magnesium Level 1.4 L 1.6-2.4 MG/DL Total Bilirubin 0.1 0.1-1.0 MG/DL Aspartate Amino Transf (AST/SGOT) 17 5-34 U/L Alanine Aminotransferase (ALT/SGPT) 27 0-55 U/L Alkaline Phosphatase 55 40-136 U/L Total Creatine Kinase 26 L 29-168 U/L Creatine Kinase MB 0.7 <6.6 NG/ML Myoglobin 15.5 10.0-92.0 NG/ML Total Protein 7.0 6.4-8.2 GM/DL Albumin 4.1 3.2-4.5 GM/DL Serum Test, Qualitative NEGATIVE NEGATIVE Serum Alcohol < 10 <10 MG/DL My Orders Orders - SHAQ OLSEN DO Ed Iv/Invasive Line Start (08/27/21 00:54) Monitor-Rhythm Ecg Trace Only (08/27/21 00:54) Ct Head/Face/Cervical Wo (08/27/21 00:54) Alcohol (08/27/21 00:54) Cbc With Automated Diff (08/27/21 00:54) Comprehensive Metabolic Panel (08/27/21 00:54) Creatine Kinase (08/27/21 00:54) Creatine Kinase Mb (08/27/21 00:54) Drug Screen Stat (Urine) (08/27/21 00:54) Hcg,Qualitative Serum (08/27/21 00:54) Magnesium (08/27/21 00:54) Ua Culture If Indicated (08/27/21 00:54) Myoglobin Serum (08/27/21 00:54) Vital Signs/I&O 08/27/21 00:57 Temp 36.5 Pulse 122 Resp 20 B/P (MAP) 159/77 (104) Pulse Ox 96 O2 Delivery Room Air Capillary Refill : Departure Impression Primary Impression: SELF REPORTED SEIZURES Additional Impression: REPORTED FACIAL CONTUSION Disposition: HOME, SELF-CARE Condition: Stable Departure-Patient Inst. Decision time for Depature: 02:40 Referrals: [facility] (PCP/Family) Primary Care Physician Patient Instructions: Contusion (DC), Seizures, Adult (DC) Add. Discharge Instructions: TYLENOL AND MOTRIN NEEDED FOR PAIN CONTINUE YOUR MEDICATIONS PRESCRIBED KEEP YOUR APPOINTMENT WITH NEUROLOGIST THIS WEEK All discharge instructions reviewed with patient and/or family. Voiced understanding. SHAQ OLSEN DO Aug 27, 2021 01:07
[2021-08-27 01:17] LABS: BILIRUBIN,URINE NEGATIVE (NEGATIVE); CLARITY,URINE CLEAR; COLOR,URINE YELLOW; GLUCOSE, URINE (UA) 1+ (NEGATIVE); KETONES,URINE TRACE (NEGATIVE); LEUKOCYTE ESTERASE ,URINE NEGATIVE (NEGATIVE); NITRITE,URINE NEGATIVE (NEGATIVE); PROTEIN,URINE TRACE (NEGATIVE)
[2021-08-27 01:21] LABS: BASOPHILS # (AUTO) 0.1 10^3/uL (0.0-0.1); BASOPHILS % (AUTO) 1 % (0-10); EOSINOPHILS % (AUTO) 0 % (0-10); HEMATOCRIT 37 % (35-52); HEMOGLOBIN 11.8 g/dL (11.5-16.0); LYMPHOCYTES % (AUTO) 27 % (12-44); MEAN CORPUSCULAR HEMOGLOBIN 26 pg (25-34); MEAN CORPUSCULAR HGB CONC 32 g/dL (32-36); MEAN CORPUSCULAR VOLUME 83 fL (80-99); MEAN PLATELET VOLUME 9.7 fL (9.0-12.2); MONOCYTES # (AUTO) 0.8 10^3/uL (0.0-1.0); MONOCYTES % (AUTO) 12 % (0-12); NEUTROPHILS # (AUTO) 4.2 10^3/uL (1.8-7.8); NEUTROPHILS % (AUTO) 58 % (42-75); PLATELET COUNT 300 10^3/uL (130-400); WHITE BLOOD COUNT 7.3 10^3/uL (4.3-11.0)
[2021-08-27 01:25] LABS: BACTERIA,URINE TRACE /HPF; RBC,URINE 25-50 /HPF; WBC,URINE 0-2 /HPF
[2021-08-27 01:28] LABS: AMPHETAMINE SCREEN, URINE NEGATIVE (NEGATIVE); BARBITURATE SCREEN URINE NEGATIVE (NEGATIVE); BENZODIAZEPINES SCREEN URINE NEGATIVE (NEGATIVE); CANNABINOID SCREEN, URINE NEGATIVE (NEGATIVE); COCAINE SCREEN URINE NEGATIVE (NEGATIVE); METHADONE STAT NEGATIVE (NEGATIVE); METHAMPHETAMINE SCREEN URINE S NEGATIVE (NEGATIVE); OPIATE SCREEN URINE NEGATIVE (NEGATIVE); OXYCODONE STAT NEGATIVE (NEGATIVE); PROPOXYPHENE STAT NEGATIVE (NEGATIVE); TRICYCLIC ANTIDEPRESSANTS SCRE POSITIVE (NEGATIVE)
[2021-08-27 01:34] LABS: ALBUMIN 4.1 GM/DL (3.2-4.5); CHLORIDE 104 MMOL/L (98-107); POTASSIUM 3.6 MMOL/L (3.6-5.0); SODIUM 142 MMOL/L (135-145)
[2021-08-27 01:35] LABS: CALCIUM 8.6 MG/DL (8.5-10.1)
[2021-08-27 01:36] LABS: GLUCOSE 236 MG/DL (70-105)
[2021-08-27 01:37] LABS: CARBON DIOXIDE 20 MMOL/L (21-32)
[2021-08-27 01:38] LABS: BILIRUBIN,TOTAL 0.1 MG/DL (0.1-1.0)
[2021-08-27 01:39] LABS: ALKALINE PHOSPHATASE 55 U/L (40-136)
[2021-08-27 01:40] LABS: GFR ESTIMATED 86
[2021-08-27 01:41] LABS: BUN/CREATININE RATIO 13
[2021-08-27 01:42] LABS: MAGNESIUM 1.4 MG/DL (1.6-2.4)
[2021-08-27 01:43] LABS: ALANINE AMINOTRANSFERASE 27 U/L (0-55); CREATINE KINASE 26 U/L (29-168)
[2021-08-27 01:50] LABS: CREATINE KINASE MB 0.7 NG/ML (<6.6)
[2021-08-27 02:51] VITALS: BP 136/95
--- NOTE | 2021-08-27 06:27 | Diagnostic Imaging Report ---
PROCEDURE: CT head, face, and cervical spine without contrast. TECHNIQUE: Multiple contiguous axial images were obtained through the head, neck, and facial bones without the use of intravenous contrast. Sagittal and coronal reformations through the cervical spine and facial bones were also performed. Auto Exposure Controls were utilized during the CT exam to meet ALARA standards for radiation dose reduction. INDICATION: Seizure, head, neck, face injury, headache. COMPARISON: CT head 07/02/2021 CT head: Ventricles are normal in size, shape, and position. There is no midline shift or mass effect. There is no hemorrhage or evidence of acute ischemia. No extra-axial fluid collection or mass is seen. There is no skull fracture. The mastoids are unremarkable. Visualized paranasal sinuses demonstrate some slight mucosal thickening in the left maxillary sinus. IMPRESSION: No acute intracranial abnormalities. CT face: There is some slight anterior subluxation of bilateral temporomandibular joints. This is unchanged compared to the prior exam. The nasal septum is midline. Additional osseous structures are intact. There are no air-fluid levels. The globes are symmetric. 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 No interval change from the prior exam. CT cervical spine: Alignment is normal. There is no subluxation or fracture. The imaging is limited due to patient body habitus. There is no paraspinous mass or significant degeneration. IMPRESSION: No traumatic malalignment or fracture. Agree with preliminary report. Dictated by: Dictated on workstation # [id number]
== END 2021-08-27 02:50 | disposition home or self-care (01) ==
LOC: EDUNIT# 00:43 → ER 00:45
DX: S00.83XA Contusion of other part of head, initial encounter (principal); G40.909 Epilepsy, unspecified, not intractable, without status epilepticus; E66.01 Morbid (severe) obesity due to excess calories; F41.9 Anxiety disorder, unspecified; I10 Essential (primary) hypertension; F32.9 Major depressive disorder, single episode, unspecified; Z68.43 Body mass index [BMI] 50.0-59.9, adult; Z79.899 Other long term (current) drug therapy; W22.8XXA Striking against or struck by other objects, initial encounter
CPT/HCPCS: 70450; 70486; 72125; 80053; 80306; 81000; 82550; 82553; 83735; 83874; 84703; 85025; 93041; 99284; G0480; 36415; 80320

== ENCOUNTER 2021-09-22 12:34 | Emergency (ER) | payer OTHER ==
[~2021-09-22] VITALS: Ht 165 cm; Wt 143.8 kg
[~2021-09-22 12:34] MED LIST changes: +CYCL10TA25 PO; -CYCL10TA9 PO; -FLUO20CA46 PO; +FLUO20CA48 PO
[2021-09-22 13:11] LABS: BASOPHILS # (AUTO) 0.1 10^3/uL (0.0-0.1); BASOPHILS % (AUTO) 1 % (0-10); EOSINOPHILS % (AUTO) 0 % (0-10); HEMATOCRIT 39 % (35-52); HEMOGLOBIN 12.1 g/dL (11.5-16.0); LYMPHOCYTES # (AUTO) 1.2 10^3/uL (1.0-4.0); LYMPHOCYTES % (AUTO) 22 % (12-44); MEAN CORPUSCULAR HEMOGLOBIN 26 pg (25-34); MEAN CORPUSCULAR HGB CONC 31 g/dL (32-36); MEAN CORPUSCULAR VOLUME 81 fL (80-99); MEAN PLATELET VOLUME 9.6 fL (9.0-12.2); MONOCYTES # (AUTO) 0.4 10^3/uL (0.0-1.0); MONOCYTES % (AUTO) 7 % (0-12); NEUTROPHILS # (AUTO) 3.8 10^3/uL (1.8-7.8); NEUTROPHILS % (AUTO) 68 % (42-75); PLATELET COUNT 301 10^3/uL (130-400); WHITE BLOOD COUNT 5.5 10^3/uL (4.3-11.0)
--- NOTE | 2021-09-22 13:11 | ED Neurological Problem ---
General Chief Complaint: Neurological Problems Stated Complaint: MULTIPLE SEIZURES Nursing Triage Note: PT AMB TO RM 6 W REPORTS OF 10 UNWITNESSED SEIZURES SX 0700 THIS AM. PT C/O FATIGUE. A&OX4. Source: patient Exam Limitations: no limitations History of Present Illness Date Seen by Provider: Sep 22, 2021 Time Seen by Provider: 12:55 Initial Comments Lina is a 26-year-old female who presents to the emergency department with a chief complaint of multiple, at least 10, seizures today. Patient tells me that she has history of a seizure disorder and is followed by a neurologist at . She states that she is on Lamictal and Keppra daily. She states that she thinks that she seizes about 15 minutes at a time. No post-ictal states reported. Patient states she's been told by people who have seen her seizures that she "shakes all over" and her right arm " draws in". Today she complains of having a very heavy menstrual cycle, it started on [birth year] on her birthday and she states today is much heavier. She denies any risk of being as she is not sexually active nor has she ever been. No recent fevers, chills, cough or congestion. She states she is compliant with her daily medications. She has a multitude of visits to the emergency department with similar complaints. No witnessed seizures in the emergency department per review of the medical record. Patient states that her neurologist gives her lorazepam for breakthrough seizure s greater than 2, she states that she has taken lorazepam twice today. She tells me that her father witnessed her have 2 of her seizures in the car on the way to the hospital today however he is not here for further history. Patient states otherwise she lives alone. No one was with her for her seizures this morning. Patient denies any drug or alcohol history. No tongue biting or extremity injuries as a result of her seizures today. She did state that she hit her ribs on her kitchen counter in her table today. No pain with deep inspiration. No shortness of breath. Patient tells me that she attempted to have an EEG at her home however she had an allergy to the adhesive for the EEG and this was unable to be completed. Other than that she never had an attempt at an EEG. All other review of systems reviewed and negative except as stated Timing/Duration: 4-6 hours Severity: moderate Associated Symptoms: other Allergies and Home Medications Allergies Coded Allergies: cephalexin (Verified Allergy, Severe, soa, 07/13/20) topiramate (Unverified Allergy, Intermediate, 04/30/21) hives amoxicillin (Verified Allergy, Unknown, 04/06/19) carbamazepine (Verified Allergy, Unknown, 04/06/19) shellfish derived (Verified Allergy, Unknown, 07/20/19) Penicillins (Unverified Adverse Reaction, Intermediate, 04/06/19) Sulfa (Sulfonamide Antibiotics) (Unverified Adverse Reaction, Intermediate, 04/06/19) Patient Home Medication List Home Medication List Reviewed: Yes Butalb/Acetaminophen/Caffeine (Esgic Capsule) 1 Each Capsule, 2 EACH PO Q6H PRN for headache Prescribed by: CELIA HUGHES on 12/17/19 163 Cefuroxime Axetil (Cefuroxime) 250 Mg Tablet, 250 MG PO BID Prescribed by: CELIA HUGHES on 07/28/21 191 Clindamycin HCl (Clindamycin HCl) 300 Mg Capsule, 300 MG PO TID Prescribed by: STEF NAVAS on 08/15/20 164 Cyclobenzaprine HCl (Cyclobenzaprine HCl) 10 Mg Tablet, 10 MG PO Q8H PRN for SPASMS Prescribed by: SHAQ OLSEN on 01/15/21 0025 Fluoxetine HCl (Prozac) 20 Mg Capsule, Unknown Dose PO, (Reported) Entered as Reported by: FATOUMATA LIN on 09/01/19 0445 Hydroxyzine Pamoate (Vistaril) 25 Mg Capsule, Unknown Dose PO, (Reported) Entered as Reported by: FATOUMATA LIN on 09/01/19 044 Levetiracetam (Keppra) 1,000 Mg Tablet, 1,000 MG PO TID, (Reported) Entered as Reported by: GRISELDA MARTINEZ on 07/15/19 1659 Medroxyprogesterone Acetate (Provera) 10 Mg Tablet, 10 MG PO DAILY Prescribed by: STEF NAVAS on 08/15/20 164 Metformin HCl (Metformin HCl) 500 Mg Tablet, 500 MG PO BID Prescribed by: CELIA HUGHES on 07/28/21 183 Mometasone Furoate (Mometasone Furoate) 45 Gm Cream..g., 45 GM TP TID Prescribed by: SHAQ OLSEN on 03/10/20 023 Nitrofurantoin Macrocrystal (Nitrofurantoin) 100 Mg Capsule, 100 MG PO BID Prescribed by: STEF NAVAS on 07/02/212100 Nitrofurantoin Monohyd/M-Cryst (Macrobid 100 mg Capsule) 100 Mg Capsule, 1 TAB PO BID Prescribed by: SHAQ OLSEN on 06/11/21 020 Ofloxacin (Floxin (Non-Formulary)) 5 Ml Drops, 3 DROPS RIGHT EAR BID Prescribed by: CELIA HUGHES on 07/05/20 1426 Ondansetron (Ondansetron Odt) 4 Mg Tab.rapdis, 4 MG PO Q6H PRN for NAUSEA/VOMITING Prescribed by: HAMMAD ROACH on 04/30/21 1134 Prednisone (Prednisone) 20 Mg Tab, 40 MG PO DAILY Prescribed by: SHAQ OLSEN on 03/10/20 023 Review of Systems Review of Systems Constitutional: see HPI Eyes: No Symptoms Reported Ears, Nose, Mouth, Throat: no symptoms reported Respiratory: no symptoms reported Cardiovascular: no symptoms reported Gastrointestinal: no symptoms reported Genitourinary: no symptoms reported : No LMP: Sep 18, 2021 Musculoskeletal: no symptoms reported Skin: no symptoms reported Psychiatric/Neurological: Other (seizures) All Other Systems Reviewed Negative Unless Noted: Yes Past Gjyotrc-Sicpqd-Yesndd Hx Patient Social History Tobacco Use?: No Use of E-Cig and/or Vaping dev: No Substance use?: No Alcohol Use?: No Immunizations Up To Date Tetanus Booster (TDap): Less than 5yrs PED Vaccines UTD: Yes Influenza Vaccine Up-to-Date: Yes; Up-to-Date First/Initial COVID19 Vaccinat: December COVID19 Vaccination Alex: January COVID19 Vaccination Date: AUGUST COVID19 Vaccine Skiver Counter: DAWSON Seasonal Allergies Seasonal Allergies: Yes Past Medical History Surgery/Hospitalization HX: Hx seizure disorder. R kidney removed. Surgeries: Yes Adenoidectomy, Ear Surgery, Nephrectomy, Renal, Tonsillectomy Respiratory: No Cardiac: Yes Heart Murmur, High Cholesterol, Hypertension, Irregular Heartbeat Neurological: Yes Headaches /Migraines, Seizure Disorder Last Menstrual Period: Sep 22, 2021 Reproductive Disorders: No Female Reproductive Disorders: Polycystic Ovarian Dis Genitourinary: Yes (only one kidney) Bladder Infection Gastrointestinal: No Musculoskeletal: No Endocrine: Yes (PCOS; MORBID OBESITY) HEENT: Yes (S/P BMT'S; DECREASED HEARING IN BOTH EAR;BENIGN TUMOR-ROOF OF MOUTH REMOVED) Chronic Ear Infection Hearing Impairment: Hard of Hearing Cancer: No Psychosocial: Yes Anxiety, Depression Integumentary: Yes (skin issues on lt leg) Blood Disorders: No Family Medical History No Pertinent Family Hx SOCIAL HISTORY: -ETOH--OCCASIONAL USE -DRUGS--DENIES USE -SMOKING--QUIT 2011 ADDITIONAL PAST MEDICAL HISTORY: HAD SEIZURES CHILD AND WAS ON MEDICATIONS UNTIL AGE 10; NO SEIZURES FOR YEARS, THEN STARTED HAVING SEIZURES AGAIN 10/2017, AND HAS BEEN BACK ON SEIZURE MEDICATIONS SINCE THEN. THEY POSSIBLY HAVE BEEN RELATED TO MIGRAINES, BUT ON PREVIOUS ER VISITS, THE SEIZURES HAVE BEEN ALL SELF-REPORTED AND NONE HAVE EVER BEEN WITNESSED AND PT HAS NEVER HAD AN EEG PAST SURGICAL HISTORY: -BMT'S -REMOVAL OF BENIGN TUMOR FROM ROOF OF MOUTH -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 -TONSILLECTOMY AND ADENOIDECTOMY Physical Exam Vital Signs Vital Signs - First Documented 09/22/21 12:45 Temp 36.6 Pulse 89 Resp 22 B/P (MAP) 154/99 (117) Pulse Ox 96 O2 Delivery Room Air Capillary Refill : Less Than 3 Seconds Height, Weight, BMI Height: 5'5.00" Weight: 260lbs. 0oz. [id number]; 52.00 BMI Method:Actual General Appearance: WD/WN, no apparent distress HEENT: PERRL/EOMI, normal ENT inspection, TMs normal, pharynx normal, other (appears well hydrated. no injury to her tongue observed) Neck: full range of motion Respiratory: lungs clear, normal breath sounds, no respiratory distress, no accessory muscle use Cardiovascular: regular rate, rhythm Gastrointestinal: other (morbid obesity) Extremities: normal range of motion, non-tender, normal inspection, no pedal edema, normal capillary refill Neurologic/Psychiatric: kayak maker II-XII nml as tested, no motor/sensory deficits, alert, normal mood/affect, oriented x 3 Crainal Nerves: normal hearing, normal speech, PERRL Coordination/Gait: normal gait Motor/Sensory: no motor deficit, no sensory deficit Skin: normal color, warm/dry Progress/Results/Core Measures Results/Orders Lab Results Laboratory Tests Test 09/22/21 12:50 Range/Units White Blood Count 5.5 4.3-11.0 10^3/uL Red Blood Count 4.75 3.80-5.11 10^6/uL Hemoglobin 12.1 11.5-16.0 g/dL Hematocrit 39 35-52 % Mean Corpuscular Volume 81 80-99 fL Mean Corpuscular Hemoglobin 26 25-34 pg Mean Corpuscular Hemoglobin Concent 31 L 32-36 g/dL Red Cell Distribution Width 14.6 H 10.0-14.5 % Platelet Count 301 130-400 10^3/uL Mean Platelet Volume 9.6 9.0-12.2 fL Immature Granulocyte % (Auto) 1 % Neutrophils (%) (Auto) 68 42-75 % Lymphocytes (%) (Auto) 22 12-44 % Monocytes (%) (Auto) 7 0-12 % Eosinophils (%) (Auto) 0 0-10 % Basophils (%) (Auto) 1 0-10 % Neutrophils # (Auto) 3.8 1.8-7.8 10^3/uL Lymphocytes # (Auto) 1.2 1.0-4.0 10^3/uL Monocytes # (Auto) 0.4 0.0-1.0 10^3/uL Eosinophils # (Auto) 0.0 0.0-0.3 10^3/uL Basophils # (Auto) 0.1 0.0-0.1 10^3/uL Immature Granulocyte # (Auto) 0.1 0.0-0.1 10^3/uL Sodium Level 139 135-145 MMOL/L Potassium Level 3.6 3.6-5.0 MMOL/L Chloride Level 101 98-107 MMOL/L Carbon Dioxide Level 25 21-32 MMOL/L Anion Gap 13 5-14 MMOL/L Blood Urea Nitrogen 8 7-18 MG/DL Creatinine 0.80 0.60-1.30 MG/DL Estimat Glomerular Filtration Rate 85 BUN/Creatinine Ratio 10 Glucose Level 97 70-105 MG/DL Calcium Level 8.6 8.5-10.1 MG/DL Serum Test, Qualitative NEGATIVE NEGATIVE My Orders Orders - OLMAN NEWTON MD Ed Iv/Invasive Line Start (09/22/21 13:05) Cbc With Automated Diff (09/22/21 13:05) Basic Metabolic Panel (09/22/21 13:05) Hcg,Qualitative Serum (09/22/21 13:05) Vital Signs/I&O 09/22/21 12:45 Temp 36.6 Pulse 89 Resp 22 B/P (MAP) 154/99 (117) Pulse Ox 96 O2 Delivery Room Air Blood Pressure Mean: 117 Progress Progress Note #1: Time: 13:11 Progress Note Patient is awake alert and oriented. Vital signs are stable. No complaints of illness. We will check a CBC and a chemistry to evaluate electrolytes, blood glucose and for anemia as the patient states that her menses are extremely heavy today. We will also check a serum test. Anticipate discharge to home with follow-up with her neurologist. Progress Note #2: Time: 13:37 Progress Note Patient's labs reviewed, normal H&H, normal electrolytes and blood sugar as well as negative test. Patient has had no seizures while here in the emergency department. Vital signs remained stable. Advised the patient to continue her daily prescribed antiseizure medications. Close follow-up with her seizure doctor on Friday. Patient verbalized understanding of the plan of care. All questions are sought and answered. Patient is stable for discharge. Departure Impression Primary Impression: History of seizure Additional Impression: Menorrhagia Qualified Codes: N92.1 - Excessive and frequent menstruation with irregular cycle Disposition: HOME, SELF-CARE Condition: Stable Departure-Patient Inst. Decision time for Depature: 13:39 Referrals: [facility] [place] (PCP/Family) Primary Care Physician Patient Instructions: Heavy Periods ED Add. Discharge Instructions: Continue your seizure disorder medications as prescribed by your neurologist. You can take eocv-jxj-ublxkzr ibuprofen, 4 pills which is 800 mg every 8 hours as needed for cramping and bleeding. This should slow down your bleeding. Follow-up with your primary care physician regarding your heavy menstrual cycle s. Return to the emergency department for any new, concerning or emergent complaints. OLMAN NEWTON MD Sep 22, 2021 13:11
[2021-09-22 13:17] LABS: POTASSIUM 3.6 MMOL/L (3.6-5.0)
[2021-09-22 13:18] LABS: CALCIUM 8.6 MG/DL (8.5-10.1)
[2021-09-22 13:22] LABS: CREATININE SERUM 0.8 MG/DL (0.60-1.30)
[2021-09-22 13:44] VITALS: BP 143/89
== END 2021-09-22 13:44 | disposition home or self-care (01) ==
LOC: EDUNIT# 12:34 → ER 12:36
DX: N92.1 Excessive and frequent menstruation with irregular cycle (principal); I10 Essential (primary) hypertension; E78.00 Pure hypercholesterolemia, unspecified; F41.9 Anxiety disorder, unspecified; F32.9 Major depressive disorder, single episode, unspecified; G40.909 Epilepsy, unspecified, not intractable, without status epilepticus; G43.909 Migraine, unspecified, not intractable, without status migrainosus; E66.01 Morbid (severe) obesity due to excess calories; Z90.5 Acquired absence of kidney; Z88.0 Allergy status to penicillin; Z88.1 Allergy status to other antibiotic agents; Z88.2 Allergy status to sulfonamides; Z88.8 Allergy status to other drugs, medicaments and biological substances; Z79.52 Long term (current) use of systemic steroids; Z79.899 Other long term (current) drug therapy; Z32.02 Encounter for pregnancy test, result negative
CPT/HCPCS: 36415; 80048; 84703; 85025

== ENCOUNTER 2021-10-11 00:33 | Emergency (ER) | payer OTHER ==
[~2021-10-11] VITALS: Ht 165 cm; Wt 144.0 kg
[2021-10-11] MEDS ORDERED: ACETAMINOPHEN 500 MG TAB (TYLENOL) PO ONE (01:15)
[2021-10-11] MEDS ORDERED: KETOROLAC 60 MG/2 ML VIAL IM ONE (01:15)
--- NOTE | 2021-10-11 01:15 | ED Head Injury ---
General Chief Complaint: Head/Cervical Problems Stated Complaint: SEIZURE,HIT BACK OF HEAD ON TOILET,BLACKED OUT Source: patient Exam Limitations: no limitations (DARRYL BERGER STUDENT) History of Present Illness Date Seen by Provider: Oct 11, 2021 Time Seen by Provider: 01:00 Initial Comments Presley is a 26 yo F with history of seizures who presents to the ED following a seizure 1 hour ago. Pt states she was standing in her bathroom when she began to have a seizure and fell hitting the back of her head on the toilet. She has not missed any of her scheduled seizure medications, but she does regularly have seizures despite this. Her main concern tonight is the pain on the back of her head with associated dizziness and blurry vision. She has not taken anything for her symptoms. (DARRYL BERGER MED STUDENT) Allergies and Home Medications Allergies Coded Allergies: cephalexin (Verified Allergy, Severe, soa, 07/13/20) topiramate (Unverified Allergy, Intermediate, 04/30/21) hives amoxicillin (Verified Allergy, Unknown, 04/06/19) carbamazepine (Verified Allergy, Unknown, 04/06/19) shellfish derived (Verified Allergy, Unknown, 07/20/19) Penicillins (Unverified Adverse Reaction, Intermediate, 04/06/19) Sulfa (Sulfonamide Antibiotics) (Unverified Adverse Reaction, Intermediate, 04/06/19) Patient Home Medication List Home Medication List Reviewed: Yes (HAMMAD ROACH) Butalb/Acetaminophen/Caffeine (Esgic Capsule) 1 Each Capsule, 2 EACH PO Q6H PRN for headache Prescribed by: CELIA HUGHES on 12/17/19 1631 Cefuroxime Axetil (Cefuroxime) 250 Mg Tablet, 250 MG PO BID Prescribed by: CELIA HUGHES on 07/28/21 1913 Clindamycin HCl (Clindamycin HCl) 300 Mg Capsule, 300 MG PO TID Prescribed by: STEF NAVAS on 08/15/20 1646 Cyclobenzaprine HCl (Cyclobenzaprine HCl) 10 Mg Tablet, 10 MG PO Q8H PRN for SPASMS Prescribed by: SHAQ OLSEN on 01/15/21 0025 Fluoxetine HCl (Prozac) 20 Mg Capsule, Unknown Dose PO, (Reported) Entered as Reported by: FATOUMATA LIN on 09/01/19 0445 Hydroxyzine Pamoate (Vistaril) 25 Mg Capsule, Unknown Dose PO, (Reported) Entered as Reported by: FATOUMATA LIN on 09/01/19444 Levetiracetam (Keppra) 1,000 Mg Tablet, 1,000 MG PO TID, (Reported) Entered as Reported by: GRISELDA MARTINEZ on 07/15/19 1659 Medroxyprogesterone Acetate (Provera) 10 Mg Tablet, 10 MG PO DAILY Prescribed by: STEF NAVAS on 08/15/20 1647 Metformin HCl (Metformin HCl) 500 Mg Tablet, 500 MG PO BID Prescribed by: CELIA HUGHES on 07/28/21 1837 Mometasone Furoate (Mometasone Furoate) 45 Gm Cream..g., 45 GM TP TID Prescribed by: SHAQ OLSEN on 03/10/20 0232 Nitrofurantoin Macrocrystal (Nitrofurantoin) 100 Mg Capsule, 100 MG PO BID Prescribed by: STEF NAVAS on 07/02/21 210 Nitrofurantoin Monohyd/M-Cryst (Macrobid 100 mg Capsule) 100 Mg Capsule, 1 TAB PO BID Prescribed by: SHAQ OLSEN on 06/11/21 0207 Ofloxacin (Floxin (Non-Formulary)) 5 Ml Drops, 3 DROPS RIGHT EAR BID Prescribed by: CELIA HUGHES on 07/05/20 1426 Ondansetron (Ondansetron Odt) 4 Mg Tab.rapdis, 4 MG PO Q6H PRN for NAUSEA/VOMITING Prescribed by: HAMMAD ROACH on 04/30/21 1134 Prednisone (Prednisone) 20 Mg Tab, 40 MG PO DAILY Prescribed by: SHAQ OLSEN on 03/10/20 0232 Review of Systems Review of Systems Constitutional: No chills, No diaphoresis Eyes: Denies Blindness; Blurred Vision Ears, Nose, Mouth, Throat: denies ear pain, denies ear discharge Respiratory: No cough, No dyspnea on exertion Cardiovascular: No chest pain, No edema Gastrointestinal: No abdominal pain, No constipation, No diarrhea, No nausea, No vomiting Genitourinary: No dysuria, No frequency Musculoskeletal: No muscle stiffness, No muscle cramps Skin: No change in color, No change in hair/nails Psychiatric/Neurological: Anxiety, Depressed Endocrine: Denies Excessive Sweating, Denies Flushing Hematologic/Lymphatic: No Symptoms Reported (DARRYL BERGER) All Other Systems Reviewed Negative Unless Noted: Yes (HAMMAD ROACH) Past Fqvfpue-Eqzffu-Vblhlu Hx Patient Social History Tobacco Use?: No Use of E-Cig and/or Vaping dev: No (HAMMAD ROACH) Immunizations Up To Date Tetanus Booster (TDap): Less than 5yrs PED Vaccines UTD: Yes First/Initial COVID19 Vaccinat: December COVID19 Vaccination Alex: January COVID19 Vaccination Date: AUGUST (DARRYL BERGER) Seasonal Allergies Seasonal Allergies: Yes (DARRYL BERGER) Past Medical History Surgery/Hospitalization HX: Hx seizure disorder. R kidney removed. Surgeries: Yes Adenoidectomy, Ear Surgery, Nephrectomy, Renal, Tonsillectomy Respiratory: No Cardiac: Yes Heart Murmur, High Cholesterol, Hypertension, Irregular Heartbeat Neurological: Yes Headaches /Migraines, Seizure Disorder Reproductive Disorders: No Female Reproductive Disorders: Polycystic Ovarian Dis Genitourinary: Yes (only one kidney) Bladder Infection Gastrointestinal: No Musculoskeletal: No Endocrine: Yes (PCOS; MORBID OBESITY) HEENT: Yes (S/P BMT'S; DECREASED HEARING IN BOTH EAR;BENIGN TUMOR-ROOF OF MOUTH REMOVED) Chronic Ear Infection Hearing Impairment: Hard of Hearing Cancer: No Psychosocial: Yes Anxiety, Depression Integumentary: Yes (skin issues on lt leg) Blood Disorders: No (DARRYL BERGER) Family Medical History No Pertinent Family Hx SOCIAL HISTORY: -ETOH--OCCASIONAL USE -DRUGS--DENIES USE -SMOKING--QUIT 2011 ADDITIONAL PAST MEDICAL HISTORY: HAD SEIZURES CHILD AND WAS ON MEDICATIONS UNTIL AGE 10; NO SEIZURES FOR YEARS, THEN STARTED HAVING SEIZURES AGAIN 10/2017, AND HAS BEEN BACK ON SEIZURE MEDICATIONS SINCE THEN. THEY POSSIBLY HAVE BEEN RELATED TO MIGRAINES, BUT ON PREVIOUS ER VISITS, THE SEIZURES HAVE BEEN ALL SELF-REPORTED AND NONE HAVE EVER BEEN WITNESSED AND PT HAS NEVER HAD AN EEG PAST SURGICAL HISTORY: -BMT'S -REMOVAL OF BENIGN TUMOR FROM ROOF OF MOUTH -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 -TONSILLECTOMY AND ADENOIDECTOMY (DARRYL BERGER MED STUDENT) Physical Exam Vital Signs Vital Signs - First Documented 10/11/21 00:50 Temp 37.1 Pulse 110 Resp 12 B/P (MAP) 169/93 (118) Pulse Ox 96 O2 Delivery Room Air (HAMMAD ROACH) Vital Signs Capillary Refill : (DARRYL BERGER MED STUDENT) Height, Weight, BMI Height: 5'5.00" Weight: 260lbs. 0oz. [id number]; 52.00 BMI Method:Actual General Appearance: WD/WN, no apparent distress, obese HEENT: PERRL/EOMI, normal ENT inspection, TMs normal, pharynx normal, other (occipital hematoma) Neck: non-tender, full range of motion, supple, normal inspection Cardiovascular: regular rate, rhythm, no edema, no gallop, no JVD, no murmur Respiratory: chest non-tender, lungs clear, normal breath sounds, no respiratory distress, no accessory muscle use Gastrointestinal: normal bowel sounds, non tender, soft, no organomegaly, no pulsatile mass Back: normal inspection, no CVA tenderness, no vertebral tenderness Extremities: normal range of motion, non-tender, normal inspection, no pedal edema, no calf tenderness Psychiatric: alert, oriented x 3 Crainal Nerves: normal hearing, normal speech, PERRL Coordination/Gait: normal gait Motor/Sensory: no motor deficit, no sensory deficit, no pronator drift Skin: normal color, warm/dry (DARRYL BERGER MED STUDENT) Progress/Results/Core Measures Results/Orders My Orders Orders - HAMMAD ROACH Acetaminophen Tablet (Tylenol Tablet) (10/11/21 01:15) Ketorolac Injection (Toradol Injection) (10/11/21 01:15) (HAMMAD ROACH) Medications Given in ED Current Medications Medications Dose Ordered Sig/Kayode Route Start Time Stop Time Status Last Admin Dose Admin Acetaminophen 1,000 mg ONCE ONCE PO 10/11/21 01:15 10/11/21 01:16 DC 10/11/21 01:14 1,000 MG Ketorolac Tromethamine 60 mg ONCE ONCE IM 10/11/21 01:15 10/11/21 01:16 DC 10/11/21 01:14 60 MG (HAMMAD ROACH) Vital Signs/I&O 10/11/21 10/11/21 00:50 01:35 Temp 37.1 Pulse 110 105 Resp 12 18 B/P (MAP) 169/93 (118) 130/69 Pulse Ox 96 96 O2 Delivery Room Air Room Air (HAMMAD ROACH) Progress Progress Note : Time: 01:19 Progress Note I attest that I saw this patient alongside the medical student and agree with his documented history, physical exam and review of systems except as otherwise noted. 2 to 3 cm right occipital hematoma. History of seizures. No work-up needed for that. She has hallmarks of a concussion. She does not have any neurologic findings. She does not need imaging at this time. We discussed return precautions gave her an ice pack, Tylenol and Toradol IM to stave off her migraines and told her she needs to get some rest for the next couple days. She is not working so this should not be an issue. She is okay with this plan. (HAMMAD ROACH) Departure Impression Primary Impression: Seizure disorder Additional Impressions: Concussion Qualified Codes: S06.0X1A - Concussion with loss of consciousness of 30 minutes or less, initial encounter Hematoma of occipital region of scalp Disposition: 01 HOME, SELF-CARE Condition: Stable Departure-Patient Inst. Decision time for Depature: 01:21 (HAMMAD ROACH) Referrals: [facility] (PCP/Family) Primary Care Physician Patient Instructions: Concussion, Adult (DC) Add. Discharge Instructions: Drink plenty of fluids. Tylenol 1000 mg every 8 hours as necessary for pain. Ibuprofen 800 mg every 8 hours necessary for pain. Ice 20 minutes on every 2 hours while awake for the next 2 days to reduce swelling in your hematoma. Get plenty of rest for the next couple days. If he have any symptoms of a concussion such as irritability, blurry vision, difficulty walking, difficulty concentrating, sleepiness or nausea then take some medicine to treat the symptoms and get sleep. All discharge instructions reviewed with patient and/or family. Voiced understanding. DARRYL BERGER MED STUDENT Oct 11, 2021 01:15 HAMMAD ROACH Oct 11, 2021 01:21
[2021-10-11 01:35] VITALS: BP 130/69
== END 2021-10-11 01:35 | disposition home or self-care (01) ==
LOC: EDUNIT# 00:33 → ER 00:36
DX: S06.0X9A Concussion with loss of consciousness of unspecified duration, initial encounter (principal); S00.03XA Contusion of scalp, initial encounter; G40.909 Epilepsy, unspecified, not intractable, without status epilepticus; I10 Essential (primary) hypertension; F41.9 Anxiety disorder, unspecified; F32.9 Major depressive disorder, single episode, unspecified; E66.9 Obesity, unspecified; Z68.43 Body mass index [BMI] 50.0-59.9, adult; Z79.899 Other long term (current) drug therapy; W22.8XXA Striking against or struck by other objects, initial encounter
CPT/HCPCS: 99284

== ENCOUNTER 2021-10-14 04:16 | Emergency (ER) | payer SELFPAY ==
[~2021-10-14] VITALS: Ht 165 cm; Wt 144.0 kg
--- NOTE | 2021-10-14 05:35 | Diagnostic Imaging Report ---
EXAMINATION: CT head without contrast. TECHNIQUE: Multiple contiguous axial images were obtained through the brain without the use of intravenous contrast. All CT scans use one or more of the following dose optimizing techniques: automated exposure control, MA and/or KvP adjustment based on patient size and exam type or iterative reconstruction. HISTORY: Fall, head injury COMPARISON: 08/27/2021 FINDINGS: The lerner-white matter differentiation is normal. No mass effect or midline shift. The ventricles are normal in size and configuration. Basilar cisterns are patent. There are no intra- or extra-axial fluid collections. There is no intracranial hemorrhage. The orbits are normal. Paranasal sinuses are normal. Mastoid air cells are clear. No soft tissue abnormality is seen. No osseus lesions or fractures are seen. IMPRESSION: 1. No acute intracranial abnormality. Dictated by: Dictated on workstation # [id number]
--- NOTE | 2021-10-14 05:50 | ED Neurological Problem ---
General Chief Complaint: Neurological Problems Stated Complaint: SEIZURE,HIT HEAD,SEEING DOUBLE Nursing Triage Note: C/O SEIZURE APPROX. 0315, REPORTS STRIKING BACK OF HEAD ON TOILET. STATES LOC OF UNKNOWN TIME. REPORTS WAKING UP DIZZY WITH DOUBLE VISION. Source: patient, old records Exam Limitations: no limitations History of Present Illness Date Seen by Provider: Oct 14, 2021 Time Seen by Provider: 04:40 Initial Comments This 26-year-old young lady with known seizure disorder presents to the emergency room via EMS after having a presumed seizure with collapse and head injury at home. She reports going to the restroom around 0 320 and waking up on the floor feeling confused and having diplopia. She still claims to have diplopia presently. She reports the right occiput is sore. She denies any neck pain or injury. She has had no known triggers for recent seizure activity. She reports being compliant with her medications. She reports her neighbors do smoke THC which irritates her and may be a trigger. She takes Keppra 2000 mg twice daily and Trileptal 1.5 tablets (she is unsure of dose) twice daily. She is alert and oriented on arrival. [facility] Prieto is her primary care provider at [facility]. Allergies and Home Medications Allergies Coded Allergies: cephalexin (Verified Allergy, Severe, soa, 07/13/20) topiramate (Unverified Allergy, Intermediate, 04/30/21) hives amoxicillin (Verified Allergy, Unknown, 04/06/19) carbamazepine (Verified Allergy, Unknown, 04/06/19) shellfish derived (Verified Allergy, Unknown, 07/20/19) Penicillins (Unverified Adverse Reaction, Intermediate, 04/06/19) Sulfa (Sulfonamide Antibiotics) (Unverified Adverse Reaction, Intermediate, 04/06/19) Patient Home Medication List Home Medication List Reviewed: Yes Butalb/Acetaminophen/Caffeine (Esgic Capsule) 1 Each Capsule, 2 EACH PO Q6H PRN for headache Prescribed by: CELIA HUGHES on 12/17/19 1631 Cefuroxime Axetil (Cefuroxime) 250 Mg Tablet, 250 MG PO BID Prescribed by: CELIA HUGHES on 07/28/21 191 Clindamycin HCl (Clindamycin HCl) 300 Mg Capsule, 300 MG PO TID Prescribed by: STEF NAVAS on 08/15/20 1646 Cyclobenzaprine HCl (Cyclobenzaprine HCl) 10 Mg Tablet, 10 MG PO Q8H PRN for SPASMS Prescribed by: SHAQ OLSEN on 01/15/21 0025 Fluoxetine HCl (Prozac) 20 Mg Capsule, Unknown Dose PO, (Reported) Entered as Reported by: FATOUMATA LIN on 09/01/19 0445 Hydroxyzine Pamoate (Vistaril) 25 Mg Capsule, Unknown Dose PO, (Reported) Entered as Reported by: FATOUMATA LIN on 09/01/19 0445 Levetiracetam (Keppra) 1,000 Mg Tablet, 1,000 MG PO TID, (Reported) Entered as Reported by: GRISELDA MARTINEZ on 07/15/19 1659 Medroxyprogesterone Acetate (Provera) 10 Mg Tablet, 10 MG PO DAILY Prescribed by: STEF NAVAS on 08/15/20 1647 Metformin HCl (Metformin HCl) 500 Mg Tablet, 500 MG PO BID Prescribed by: CELIA HUGHES on 07/28/21 1837 Mometasone Furoate (Mometasone Furoate) 45 Gm Cream..g., 45 GM TP TID Prescribed by: SHAQ OLSEN on 03/10/20 0232 Nitrofurantoin Macrocrystal (Nitrofurantoin) 100 Mg Capsule, 100 MG PO BID Prescribed by: STEF NAVAS on 07/02/21 2101 Nitrofurantoin Monohyd/M-Cryst (Macrobid 100 mg Capsule) 100 Mg Capsule, 1 TAB PO BID Prescribed by: SHAQ OLSEN on 06/11/21 0207 Ofloxacin (Floxin (Non-Formulary)) 5 Ml Drops, 3 DROPS RIGHT EAR BID Prescribed by: CELIA HUGHES on 07/05/20 1426 Ondansetron (Ondansetron Odt) 4 Mg Tab.rapdis, 4 MG PO Q6H PRN for NAUSEA/VOMITING Prescribed by: HAMMAD ROACH on 04/30/21 1134 Prednisone (Prednisone) 20 Mg Tab, 40 MG PO DAILY Prescribed by: SHAQ OLSEN on 03/10/20 0232 Review of Systems Review of Systems Constitutional: no symptoms reported Eyes: No Symptoms Reported Ears, Nose, Mouth, Throat: see HPI Respiratory: no symptoms reported Cardiovascular: no symptoms reported Gastrointestinal: no symptoms reported Genitourinary: dysuria : No Musculoskeletal: see HPI Skin: see HPI Psychiatric/Neurological: See HPI Endocrine: No Symptoms Reported Hematologic/Lymphatic: No Symptoms Reported Past Ngydtyg-Vntonw-[place]vifee Hx Patient Social History Tobacco Use?: No Substance use?: No Alcohol Use?: No Pt feels they are or have been: No Immunizations Up To Date Tetanus Booster (TDap): Less than 5yrs PED Vaccines UTD: Yes First/Initial COVID19 Vaccinat: DECEMBER 2020 Second COVID19 Vaccination Alex: JANUARY 2021 Third COVID19 Vaccination Date: AUGUST 2021 Seasonal Allergies Seasonal Allergies: Yes Past Medical History Surgery/Hospitalization HX: Hx seizure disorder. R kidney removed, T/A, HTN, HIGH CHOLESTEROL, HEADACHES, PCOS, ANXIETY/DEPRESSION Surgeries: Yes Adenoidectomy, Ear Surgery, Nephrectomy, Renal, Tonsillectomy Respiratory: No Cardiac: Yes Heart Murmur, High Cholesterol, Hypertension, Irregular Heartbeat Neurological: Yes Headaches /Migraines, Seizure Disorder Reproductive Disorders: No Female Reproductive Disorders: Polycystic Ovarian Dis Genitourinary: Yes (only one kidney) Bladder Infection Gastrointestinal: No Musculoskeletal: No Endocrine: Yes (PCOS; MORBID OBESITY) HEENT: Yes (S/P BMT'S; DECREASED HEARING IN BOTH EAR;BENIGN TUMOR-ROOF OF MOUTH REMOVED) Chronic Ear Infection Hearing Impairment: Hard of Hearing Cancer: No Psychosocial: Yes Anxiety, Depression Integumentary: Yes (skin issues on lt leg) Blood Disorders: No Family Medical History No Pertinent Family Hx SOCIAL HISTORY: -ETOH--OCCASIONAL USE -DRUGS--DENIES USE -SMOKING--QUIT 2011 ADDITIONAL PAST MEDICAL HISTORY: HAD SEIZURES CHILD AND WAS ON MEDICATIONS UNTIL AGE 10; NO SEIZURES FOR YEARS, THEN STARTED HAVING SEIZURES AGAIN 10/2017, AND HAS BEEN BACK ON SEIZURE MEDICATIONS SINCE THEN. THEY POSSIBLY HAVE BEEN RELATED TO MIGRAINES, BUT ON PREVIOUS ER VISITS, THE SEIZURES HAVE BEEN ALL SELF-REPORTED AND NONE HAVE EVER BEEN WITNESSED AND PT HAS NEVER HAD AN EEG PAST SURGICAL HISTORY: -BMT'S -REMOVAL OF BENIGN TUMOR FROM ROOF OF MOUTH -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 -TONSILLECTOMY AND ADENOIDECTOMY Physical Exam Vital Signs Vital Signs - First Documented 10/14/21 04:29 Temp 36.4 Pulse 104 Resp 18 B/P (MAP) 153/72 (99) Pulse Ox 96 O2 Delivery Room Air Capillary Refill : Less Than 3 Seconds Height, Weight, BMI Height: 5'5.00" Weight: 260lbs. 0oz. 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, no motor/sensory deficits, alert, normal mood/affect, oriented x 3 Crainal Nerves: normal hearing, normal speech, PERRL, other (Patient reports bilateral monocular diplopia) Coordination/Gait: normal finger to nose, normal gait Motor/Sensory: no motor deficit, no sensory deficit Skin: normal color, warm/dry Progress/Results/Core Measures Results/Orders Lab Results Laboratory Tests Test 10/14/21 04:50 Range/Units Urine Test NEGATIVE NEGATIVE My Orders Orders - STEF MCKNIGHT MD Ct Head Wo (10/14/21 04:50) Hcg,Qualitative Urine (10/14/21 04:50) Urine Bedside (10/14/21 04:51) Vital Signs/I&O 10/14/21 10/14/21 04:29 05:56 Temp 36.4 36.4 Pulse 104 94 Resp 18 18 B/P (MAP) 153/72 (99) 143/67 Pulse Ox 96 97 O2 Delivery Room Air Room Air Blood Pressure Mean: 99 Progress Progress Note : Progress Note Patient exhibited no further seizure-like activity. CT of the head was unremarkable. Diagnostic Imaging Diagonstic Imaging: CT Plain Films/CT/US/NM/MRI: head Comments CT head viewed by me and report reviewed. No acute injuries or abnormalities appreciated. Departure Impression Primary Impression: Seizure disorder Additional Impressions: Fall on same level Qualified Codes: W18.30XA - Fall on same level, unspecified, initial encounter Minor head injury Qualified Codes: S09.90XA - Unspecified injury of head, initial encounter Diplopia Disposition: HOME, SELF-CARE Condition: Stable Departure-Patient Inst. Decision time for Depature: 05:49 Referrals: [facility] [place] (PCP/Family) Primary Care Physician Patient Instructions: Minor Head Injury (DC), Seizures, Adult (DC) Add. Discharge Instructions: Drink plenty of clear liquids to stay well-hydrated. Continue with your seizure medication as previously directed. Contact your neurologist on Friday for further instructions. Return to the ER if you have worsening symptoms or develop other new concerning problems. You may take Tylenol and/or ibuprofen for pain. All discharge instructions reviewed with patient and/or family. Voiced understanding. Copy Copies To 1: KEYANA PRIETO JOSHUA T MD Oct 14, 2021 05:50
[2021-10-14 05:56] VITALS: BP 143/67
== END 2021-10-14 05:57 | disposition home or self-care (01) ==
LOC: EDUNIT# 04:16 → ER 04:20
DX: S06.9X9A Unspecified intracranial injury with loss of consciousness of unspecified duration, initial encounter (principal); G40.909 Epilepsy, unspecified, not intractable, without status epilepticus; I10 Essential (primary) hypertension; E78.00 Pure hypercholesterolemia, unspecified; F41.9 Anxiety disorder, unspecified; F32.9 Major depressive disorder, single episode, unspecified; G43.909 Migraine, unspecified, not intractable, without status migrainosus; E66.01 Morbid (severe) obesity due to excess calories; Z88.0 Allergy status to penicillin; Z88.1 Allergy status to other antibiotic agents; Z88.2 Allergy status to sulfonamides; Z88.8 Allergy status to other drugs, medicaments and biological substances; Z79.52 Long term (current) use of systemic steroids; Z79.84 Long term (current) use of oral hypoglycemic drugs; Z79.899 Other long term (current) drug therapy; Z32.02 Encounter for pregnancy test, result negative; W18.30XA Fall on same level, unspecified, initial encounter; Y92.009 Unspecified place in unspecified non-institutional (private) residence as the place of occurrence of the external cause
CPT/HCPCS: 70450; 84703

== ENCOUNTER 2021-10-22 09:37 | Emergency (ER) | payer OTHER ==
[~2021-10-22] VITALS: Ht 165 cm; Wt 143.0 kg
--- NOTE | 2021-10-22 10:55 | ED General ---
General Chief Complaint: Neurological Problems Stated Complaint: SEIZURES Nursing Triage Note: AMB TO ROOM REPORTS HAD 2 SEIZURES TODAY NOW HAS A AILIN THAT SHE LOGGED INTO AND KEEP TRACK OF HER SEIZURE. HAD NO WITNESS TO SEIZURE Source of Information: Patient (EUGENIE DICKEY MED STUDENT) History of Present Illness Date Seen by Provider: Oct 22, 2021 Time Seen by Provider: 10:35 Initial Comments Lina William is a 26yoF who presents by private vehicle reporting two syncopal episodes that occurred at 8:20 and 8:39 this morning with associated low back pain and head pain attributed to fall during reported LOC. Her home glucose reading was 80 and blood pressure was 118/79 when she took them after the incident. Patient denies loss of bowel or bladder during incident and said that she felt "dizzy and nauseated" but was able to stand up and orient herself quickly. There was no witness to syncopal episode. At time of incident she was making tea and did not feel ill, and she reports that she had toast, water and all medications this am prior to event. Patient has a history of seizures and reports having these symptoms 1-2 times daily. She has a neurologist at and takes 2000 mg Kepra BID as well as 650mg Trileptal BID. Upon presentation she has occipital tenderness b/l and diffuse LBP without point tenderness and normal strength, motion and sensation b/l. Patient denies shortness of breath, chest pain, recent illness, and vision changes. Timing/Duration: 1-3 Hours Severity: Mild Associated Systoms: No Chest Pain, No Cough, No Diaphoresis, No Fever/Chills, No Nausea/Vomiting; Seizure; No Shortness of Air; Syncope; No Weakness (EUGENIE DEL ROSARIO MED STUDENT) Allergies and Home Medications Allergies Coded Allergies: cephalexin (Verified Allergy, Severe, soa, 07/13/20) topiramate (Unverified Allergy, Intermediate, 04/30/21) hives amoxicillin (Verified Allergy, Unknown, 04/06/19) carbamazepine (Verified Allergy, Unknown, 04/06/19) shellfish derived (Verified Allergy, Unknown, 07/20/19) Penicillins (Unverified Adverse Reaction, Intermediate, 04/06/19) Sulfa (Sulfonamide Antibiotics) (Unverified Adverse Reaction, Intermediate, 04/06/19) Patient Home Medication List Home Medication List Reviewed: Yes (OLMAN ISABEL MD) Butalb/Acetaminophen/Caffeine (Esgic Capsule) 1 Each Capsule, 2 EACH PO Q6H PRN for headache Prescribed by: CELIA HUGHES on 12/17/19 1631 Cefuroxime Axetil (Cefuroxime) 250 Mg Tablet, 250 MG PO BID Prescribed by: CELIA HUGHES on 07/28/21 1913 Clindamycin HCl (Clindamycin HCl) 300 Mg Capsule, 300 MG PO TID Prescribed by: STEF NAVAS on 08/15/20 164 Cyclobenzaprine HCl (Cyclobenzaprine HCl) 10 Mg Tablet, 10 MG PO Q8H PRN for SPASMS Prescribed by: SHAQ OLSEN on 01/15/21 0025 Fluoxetine HCl (Prozac) 20 Mg Capsule, Unknown Dose PO, (Reported) Entered as Reported by: FATOUMATA LIN on 09/01/19 0445 Hydroxyzine Pamoate (Vistaril) 25 Mg Capsule, Unknown Dose PO, (Reported) Entered as Reported by: FATOUMATA LIN on 09/01/19 044 Levetiracetam (Keppra) 1,000 Mg Tablet, 1,000 MG PO TID, (Reported) Entered as Reported by: GRISELDA MARTINEZ on 07/15/19 1659 Medroxyprogesterone Acetate (Provera) 10 Mg Tablet, 10 MG PO DAILY Prescribed by: STEF NAVAS on 08/15/20 1647 Metformin HCl (Metformin HCl) 500 Mg Tablet, 500 MG PO BID Prescribed by: CELIA HUGHES on 07/28/21 1837 Mometasone Furoate (Mometasone Furoate) 45 Gm Cream..g., 45 GM TP TID Prescribed by: SHAQ OLSEN on 03/10/20 023 Nitrofurantoin Macrocrystal (Nitrofurantoin) 100 Mg Capsule, 100 MG PO BID Prescribed by: STEF NAVAS on 07/02/21 210 Nitrofurantoin Monohyd/M-Cryst (Macrobid 100 mg Capsule) 100 Mg Capsule, 1 TAB PO BID Prescribed by: SHAQ OLSEN on 06/11/21 0207 Ofloxacin (Floxin (Non-Formulary)) 5 Ml Drops, 3 DROPS RIGHT EAR BID Prescribed by: CELIA HUGHES on 07/05/20 1426 Ondansetron (Ondansetron Odt) 4 Mg Tab.rapdis, 4 MG PO Q6H PRN for NAUSEA/VOMITING Prescribed by: HAMMAD ROACH on 04/30/21 1134 Prednisone (Prednisone) 20 Mg Tab, 40 MG PO DAILY Prescribed by: SHAQ OLSEN on 03/10/20 0232 Review of Systems Review of Systems Constitutional: No chills, No diaphoresis, No fever, No weakness EENTM: No hearing loss, No blurred vision, No vision loss, No throat pain Respiratory: No cough, No dyspnea on exertion, No short of breath, No wheezing Cardiovascular: No chest pain, No edema, No palpitations Gastrointestinal: No abdominal pain, No constipation, No diarrhea, No loss of appetite; nausea; No vomiting Genitourinary: No dysuria, No frequency, No hematuria, No incontinence Musculoskeletal: back pain, muscle pain; No muscle twitching, No muscle weakness; neck pain Skin: No dryness, No pruritus Psychiatric/Neurological: Headache; Denies Numbness, Denies Paresthesia; Seizure; Denies Tingling, Denies Tremors Hematologic/Lymphatic: Denies Swollen Glands ([employer]) Past Jghhlmj-Hrbhqr-Qhekwy Hx Patient Social History Tobacco Use?: No Substance use?: No Alcohol Use?: No ([employer]) Immunizations Up To Date Tetanus Booster (TDap): Less than 5yrs PED Vaccines UTD: Yes First/Initial COVID19 Vaccinat: December COVID19 Vaccination Alex: January COVID19 Vaccination Date: AUGUST 2021 COVID19 Vaccine 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 R kidney removed, T/A, HTN, HIGH CHOLESTEROL, HEADACHES, PCOS, ANXIETY/DEPRESSION Surgeries: Yes Adenoidectomy, Ear Surgery, Nephrectomy, Renal, Tonsillectomy Respiratory: No Cardiac: Yes Heart Murmur, High Cholesterol, Hypertension, Irregular Heartbeat Neurological: Yes Headaches /Migraines, Seizure Disorder Reproductive Disorders: No Female Reproductive Disorders: Polycystic Ovarian Dis Genitourinary: Yes (only one kidney) Bladder Infection Gastrointestinal: No Musculoskeletal: No Endocrine: Yes (PCOS; MORBID OBESITY) HEENT: Yes (S/P BMT'S; DECREASED HEARING IN BOTH EAR;BENIGN TUMOR-ROOF OF MOUTH REMOVED) Chronic Ear Infection Hearing Impairment: Hard of Hearing Cancer: No Psychosocial: Yes Anxiety, Depression Integumentary: Yes (skin issues on lt leg) Blood Disorders: No (EUGENIE DICKEY STUDENT) Family Medical History No Pertinent Family Hx SOCIAL HISTORY: -ETOH--OCCASIONAL USE -DRUGS--DENIES USE -SMOKING--QUIT 2011 ADDITIONAL PAST MEDICAL HISTORY: HAD SEIZURES CHILD AND WAS ON MEDICATIONS UNTIL AGE 10; NO SEIZURES FOR YEARS, THEN STARTED HAVING SEIZURES AGAIN 10/2017, AND HAS BEEN BACK ON SEIZURE MEDICATIONS SINCE THEN. THEY POSSIBLY HAVE BEEN RELATED TO MIGRAINES, BUT ON PREVIOUS ER VISITS, THE SEIZURES HAVE BEEN ALL SELF-REPORTED AND NONE HAVE EVER BEEN WITNESSED AND PT HAS NEVER HAD AN EEG PAST SURGICAL HISTORY: -BMT'S -REMOVAL OF BENIGN TUMOR FROM ROOF OF MOUTH -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 -TONSILLECTOMY AND ADENOIDECTOMY (EUGENIE DICKEY STUDENT) Physical Exam Vital Signs Vital Signs - First Documented 10/22/21 10/22/21 09:59 12:24 Temp 36.9 Pulse 96 Resp 18 B/P (MAP) 155/98 (117) Pulse Ox 99 O2 Delivery Room Air (OLMAN ISABEL MD) Vital Signs Capillary Refill : Less Than 3 Seconds (EUGENIE DICKEY STUDENT) Height, Weight, BMI Height: 5'5.00" Weight: 260lbs. 0oz. 117.129474wj; 52.00 BMI Method:Actual General Appearance: WD/WN, Anxious Eyes: Bilateral Eye PERRL, Bilateral Eye EOMI HEENT: PERRL/EOMI, Pharynx Normal, Moist Mucous Membranes Neck: Full Range of Motion, Supple; No Lymphadenopathy (L), No Lymphadenopathy (R); Tender Lateral, Tender Midline Respiratory: Lungs Clear, Normal Breath Sounds, No Accessory Muscle Use, No Respiratory Distress Cardiovascular: Regular Rate, Rhythm, No Edema, No Gallop, No JVD, No Murmur, Normal Peripheral Pulses Gastrointestinal: Normal Bowel Sounds, No Organomegaly, No Pulsatile Mass, Non Tender, Soft Back: No CVA Tenderness, No Vertebral Tenderness; No Decreased Range of Motion; Other (diffuse low back pain) Extremity: Normal Capillary Refill, Normal Range of Motion, Non Tender, No Calf Tenderness, No Pedal Edema Neurologic/Psychiatric: Alert, Oriented x3, No Motor/Sensory Deficits, 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 Norm as Tested Skin: Normal Color, Warm/Dry Lymphatic: No Adenopathy (EUGENIE DICKEY STUDENT) Progress/Results/Core Measures Suspected Sepsis SIRS Temperature: Pulse: 96 Respiratory Rate: 18 Blood Pressure 155 /98 Mean: 117 Laboratory Tests 10/22/21 10:52: Creatinine 0.75 (EUGENIE DICKEY STUDENT) Results/Orders Lab Results Laboratory Tests Test 10/22/21 10:52 Range/Units Sodium Level 136 135-145 MMOL/L Potassium Level 3.4 L 3.6-5.0 MMOL/L Chloride Level 98 98-107 MMOL/L Carbon Dioxide Level 24 21-32 MMOL/L Anion Gap 14 5-14 MMOL/L Blood Urea Nitrogen 13 7-18 MG/DL Creatinine 0.75 0.60-1.30 MG/DL Estimat Glomerular Filtration Rate 92 BUN/Creatinine Ratio 17 Glucose Level 107 H 70-105 MG/DL Calcium Level 9.0 8.5-10.1 MG/DL (OLMAN ISABEL MD) My Orders Orders - OLMAN ISABEL MD Basic Metabolic Panel (10/22/21 10:40) Urine Bedside (10/22/21 10:40) (OLMAN ISABEL MD) Vital Signs/I&O 10/22/21 10/22/21 09:59 12:24 Temp 36.9 Pulse 96 93 Resp 18 18 B/P (MAP) 155/98 (117) 176/100 Pulse Ox 99 O2 Delivery Room Air (OLMAN ISABEL MD) Vital Signs/I&O Capillary Refill : Less Than 3 Seconds (EUGENIE DICKEY STUDENT) Blood Pressure Mean: 117 Progress Note : Time: 12:03 Progress Note 26-year-old female presents to the emergency room today with a chief complaint of "seizure". She has a history of seizure disorder, follows at [facility]. Has been referred to a neurologist at . She is currently on Keppra and Trileptal. Patient states that she is compliant with these medications. She states this morning she had two brief episodes of "seizure". She was aware of them. No loss of continence. No tongue biting or extremity pain. They were brief and spontaneously resolved without intervention. She states she has been in contact with her neurologist at . She also has an appointment with her primary care provider this Friday, 2 days from now at [facility]. She does endorse some increasing frequency of headache that she states is more severe than her normal. She has been taking 800 mg of ibuprofen every 8 hours. States she currently has a mild headache. No nausea. No vision changes. No weakness numbness or tingling. She denies any complaints of illness. She is fully Covid vaccinated with a booster in July. Evaluation today includes a physical exam with neurologic exam, serum chemistry and a test. Chemistry is normal, CO2 is normal, test is negative. Patient's vital signs have been stable. Clinically she looks very well sitting up at the side of the bed smiling and interactive. Nontoxic. No clinical or objective findings at this point to warrant further studies from the ED. Patient will follow up as stated (OLMAN ISABEL MD) Departure Impression Primary Impression: Seizure disorder Additional Impression: Headache Qualified Codes: R51.9 - Headache, unspecified; G89.29 - Other chronic pain Disposition: 01 HOME, SELF-CARE Condition: Stable Departure-Patient Inst. Decision time for Depature: 12:06 (OLMAN ISABEL MD) Referrals: [facility] (PCP) Primary Care Physician KEYANA PRIETO DO (Family) Primary Care Physician Patient Instructions: Seizures, Adult ED Add. Discharge Instructions: Drink plenty of fluids to stay well-hydrated. Continue your daily antiseizure meds as prescribed. Please keep your follow-up appointment with your primary care provider for this Friday. Talk to her about headache medications. You might try some extra caffeine to help with headaches. Return to the emergency room for any new, concerning or emergent complaint Verification and Attestation of Medical Student E/M Service A medical student performed and documented this service in my presence. I reviewed and verified all information documented by the medical student and made modifications to such information, when appropriate. I personally performed the physical exam and medical decision making. Olman Isabel, Oct 22, 2021,12:03 (OLMAN ISABEL MD) EUGENIE DICKEY MED STUDENT Oct 22, 2021 10:55 OLMAN ISABEL MD Oct 22, 2021 12:03
[2021-10-22 11:13] LABS: POTASSIUM 3.4 MMOL/L (3.6-5.0)
[2021-10-22 11:19] LABS: CREATININE SERUM 0.75 MG/DL (0.60-1.30)
[2021-10-22 12:24] VITALS: BP 176/100
== END 2021-10-22 12:24 | disposition home or self-care (01) ==
LOC: EDUNIT# 09:37 → ER 09:38
DX: G40.909 Epilepsy, unspecified, not intractable, without status epilepticus (principal); R51.9 Headache, unspecified; I10 Essential (primary) hypertension; F41.9 Anxiety disorder, unspecified; F32.9 Major depressive disorder, single episode, unspecified; Z79.899 Other long term (current) drug therapy
CPT/HCPCS: 36415; 80048; 84703; 99282

== ENCOUNTER 2021-10-30 19:39 | Emergency (ER) | payer OTHER ==
--- NOTE | 2021-10-30 22:28 | ED Upper Extremity ---
General Chief Complaint: Upper Extremity Stated Complaint: MULTIPLE SEIZURES/LEFT SHOULDER PAIN Source: patient Exam Limitations: no limitations (CELIA HUGHES APRN) History of Present Illness Date Seen by Provider: Oct 30, 2021 Time Seen by Provider: 22:25 Initial Comments To ER with reports of left shoulder pain after one of her seizures today. She landed on this shoulder. She has a long history of multiple unwitnessed seizures nearly every day. Onset: just prior to arrival Severity: moderate Pain/Injury Location: left shoulder Method of Injury: unknown Modifying Factors: Worse With Movement (CELIA HUGHES APRN) Allergies and Home Medications Allergies Coded Allergies: cephalexin (Verified Allergy, Severe, soa, 07/13/20) topiramate (Unverified Allergy, Intermediate, 04/30/21) hives amoxicillin (Verified Allergy, Unknown, 04/06/19) carbamazepine (Verified Allergy, Unknown, 04/06/19) shellfish derived (Verified Allergy, Unknown, 07/20/19) Penicillins (Unverified Adverse Reaction, Intermediate, 04/06/19) Sulfa (Sulfonamide Antibiotics) (Unverified Adverse Reaction, Intermediate, 04/06/19) Patient Home Medication List Home Medication List Reviewed: Yes (CELIA HUGHES APRN) Butalb/Acetaminophen/Caffeine (Esgic Capsule) 1 Each Capsule, 2 EACH PO Q6H PRN for headache Prescribed by: CELIA HUGHES on 12/17/19 1631 Cefuroxime Axetil (Cefuroxime) 250 Mg Tablet, 250 MG PO BID Prescribed by: CELIA HUGHES on 07/28/21 191 Clindamycin HCl (Clindamycin HCl) 300 Mg Capsule, 300 MG PO TID Prescribed by: STEF NAVAS on 08/15/20 1646 Cyclobenzaprine HCl (Cyclobenzaprine HCl) 10 Mg Tablet, 10 MG PO Q8H PRN for SPASMS Prescribed by: SHAQ OLSEN on 01/15/21 0025 Fluoxetine HCl (Prozac) 20 Mg Capsule, Unknown Dose PO, (Reported) Entered as Reported by: FATOUMATA LIN on 09/01/19 0445 Hydroxyzine Pamoate (Vistaril) 25 Mg Capsule, Unknown Dose PO, (Reported) Entered as Reported by: FATOUMATA LIN on 09/01/19 044 Levetiracetam (Keppra) 1,000 Mg Tablet, 1,000 MG PO TID, (Reported) Entered as Reported by: GRISELDA MARTINEZ on 07/15/19 1659 Medroxyprogesterone Acetate (Provera) 10 Mg Tablet, 10 MG PO DAILY Prescribed by: STEF NAVAS on 08/15/20 1647 Metformin HCl (Metformin HCl) 500 Mg Tablet, 500 MG PO BID Prescribed by: CELIA HUGHES on 07/28/21 1837 Mometasone Furoate (Mometasone Furoate) 45 Gm Cream..g., 45 GM TP TID Prescribed by: SHAQ OLSEN on 03/10/20 0232 Nitrofurantoin Macrocrystal (Nitrofurantoin) 100 Mg Capsule, 100 MG PO BID Prescribed by: STEF NAVAS on 07/02/21 210 Nitrofurantoin Monohyd/M-Cryst (Macrobid 100 mg Capsule) 100 Mg Capsule, 1 TAB PO BID Prescribed by: SHAQ OLSEN on 06/11/21 0207 Ofloxacin (Floxin (Non-Formulary)) 5 Ml Drops, 3 DROPS RIGHT EAR BID Prescribed by: CELIA HUGHES on 07/05/20 1426 Ondansetron (Ondansetron Odt) 4 Mg Tab.rapdis, 4 MG PO Q6H PRN for NAUSEA/VOMITING Prescribed by: HAMMAD ROACH on 04/30/21 1134 Prednisone (Prednisone) 20 Mg Tab, 40 MG PO DAILY Prescribed by: SHAQ OLSEN on 03/10/20 0232 Review of Systems Constitutional: see HPI EENTM: see HPI Respiratory: no symptoms reported Cardiovascular: no symptoms reported Genitourinary: no symptoms reported Musculoskeletal: see HPI Skin: no symptoms reported Psychiatric/Neurological: No Symptoms Reported (CELIA HUGHES APRN) Past Iallcob-Cypqfn-Zutrcv Hx Immunizations Up To Date Tetanus Booster (TDap): Less than 5yrs PED Vaccines UTD: Yes First/Initial COVID19 Vaccinat: December COVID19 Vaccination Alex: January COVID19 Vaccination Date: AUGUST 2021 (CELIA HUGHES APRN) Seasonal Allergies Seasonal Allergies: Yes (CELIA HUGHES APRN) Past Medical History Surgery/Hospitalization HX: Hx seizure disorder. R kidney removed, T/A, HTN, HIGH CHOLESTEROL, HEADACHES, PCOS, ANXIETY/DEPRESSION Surgeries: Yes Adenoidectomy, Ear Surgery, Nephrectomy, Renal, Tonsillectomy Respiratory: No Cardiac: Yes Heart Murmur, High Cholesterol, Hypertension, Irregular Heartbeat Neurological: Yes Headaches /Migraines, Seizure Disorder Reproductive Disorders: No Female Reproductive Disorders: Polycystic Ovarian Dis Genitourinary: Yes (only one kidney) Bladder Infection Gastrointestinal: No Musculoskeletal: No Endocrine: Yes (PCOS; MORBID OBESITY) HEENT: Yes (S/P BMT'S; DECREASED HEARING IN BOTH EAR;BENIGN TUMOR-ROOF OF MOUTH REMOVED) Chronic Ear Infection Hearing Impairment: Hard of Hearing Cancer: No Psychosocial: Yes Anxiety, Depression Integumentary: Yes (skin issues on lt leg) Blood Disorders: No (CELIA HUGHES APRN) Family Medical History No Pertinent Family Hx SOCIAL HISTORY: -ETOH--OCCASIONAL USE -DRUGS--DENIES USE -SMOKING--QUIT 2011 ADDITIONAL PAST MEDICAL HISTORY: HAD SEIZURES CHILD AND WAS ON MEDICATIONS UNTIL AGE 10; NO SEIZURES FOR YEARS, THEN STARTED HAVING SEIZURES AGAIN 10/2017, AND HAS BEEN BACK ON SEIZURE MEDICATIONS SINCE THEN. THEY POSSIBLY HAVE BEEN RELATED TO MIGRAINES, BUT ON PREVIOUS ER VISITS, THE SEIZURES HAVE BEEN ALL SELF-REPORTED AND NONE HAVE EVER BEEN WITNESSED AND PT HAS NEVER HAD AN EEG PAST SURGICAL HISTORY: -BMT'S -REMOVAL OF BENIGN TUMOR FROM ROOF OF MOUTH -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 -TONSILLECTOMY AND ADENOIDECTOMY (CELIA HUGHES APRN) Physical Exam Vital Signs Vital Signs - First Documented 10/30/21 22:19 Temp 36.9 Pulse 107 Resp 18 B/P (MAP) 161/83 (109) Pulse Ox 94 O2 Delivery Room Air (PADMINI OLSENA K DO) Vital Signs Capillary Refill : (CELIA HUGHES APRN) Height, Weight, BMI Height: 5'5.00" Weight: 260lbs. 0oz. [id number]; 52.00 BMI Method:Actual General Appearance: WD/WN, no apparent distress, obese, other (Alert and oriented GCS 15 no distress.) HEENT: PERRL/EOMI, normal ENT inspection Neck: non-tender, full range of motion Respiratory: no respiratory distress Gastrointestinal: normal bowel sounds, non tender Shoulder: limited ROM, pain; No swelling (Shoulder is without erythema ecchymosis abrasion or limited range of motion) Elbow/Forearm: normal inspection, non-tender Wrist: Yes normal inspection, Yes non-tender Hand: normal inspection, non-tender Neurologic/Psychiatric: alert, normal mood/affect, oriented x 3 Skin: normal color (Yes I), warm/dry (CELIA HUGEHS APRN) Departure Communication (Admissions) Shoulder x-ray is unremarkable (CELIA HUGHES APRN) Impression Primary Impression: Seizure disorder Additional Impression: Shoulder contusion Disposition: HOME, SELF-CARE Condition: Stable Departure-Patient Inst. Decision time for Depature: 22:27 (CELIA HUGHES APRN) Referrals: KEYANA PRIETO DO (PCP/Family) Primary Care Physician Patient Instructions: Minor Contusion ED Add. Discharge Instructions: 1. Tylenol and ibuprofen for pain control. Continue with seizure medications. Follow-up with your doctor next week. All discharge instructions reviewed with patient and/or family. Voiced understanding. ATTENDING PHYSICIAN NOTE: I WAS PHYSICALLY PRESENT ER PHYSICIAN WHEN THIS PATIENT WAS IN ER, BUT I WAS NOT INVOLVED IN ANY DECISION MAKING OR ANY CARE OF THIS PATIENT. (SHAQ OLSEN DO) CELIA HUGHES APRN Oct 30, 2021 22:28 SHAQ OLSEN DO Nov 01, 2021 03:22
--- NOTE | 2021-10-30 23:02 | Diagnostic Imaging Report ---
INDICATION: Left shoulder pain status post fall COMPARISON: None. FINDINGS: 3 views of the left shoulder were obtained. There is no fracture, dislocation, or other acute bony abnormality identified. The soft tissues appear unremarkable. No radiopaque foreign bodies identified. The visualized portions of the left lung are clear. IMPRESSION: No acute fractures or dislocations of the left shoulder. Dictated by: Dictated on workstation # [id number]
[2021-10-30 23:28] VITALS: BP 164/84
== END 2021-10-30 23:27 | disposition home or self-care (01) ==
LOC: EDUNIT# 19:39 → ER 19:41
DX: S40.012A Contusion of left shoulder, initial encounter (principal); G40.909 Epilepsy, unspecified, not intractable, without status epilepticus; I10 Essential (primary) hypertension; F41.9 Anxiety disorder, unspecified; F32.9 Major depressive disorder, single episode, unspecified; E66.01 Morbid (severe) obesity due to excess calories; Z68.43 Body mass index [BMI] 50.0-59.9, adult; Z79.899 Other long term (current) drug therapy; X58.XXXA Exposure to other specified factors, initial encounter
CPT/HCPCS: 73030

== ENCOUNTER 2021-11-16 09:00 | Emergency (ER) | payer OTHER ==
[~2021-11-16] VITALS: Ht 165 cm; Wt 143.7 kg
[2021-11-16 10:08] LABS: BASOPHILS # (AUTO) 0.1 10^3/uL (0.0-0.1); BASOPHILS % (AUTO) 1 % (0-10); EOSINOPHILS % (AUTO) 0 % (0-10); HEMATOCRIT 38 % (35-52); HEMOGLOBIN 11.8 g/dL (11.5-16.0); LYMPHOCYTES % (AUTO) 28 % (12-44); MEAN CORPUSCULAR HEMOGLOBIN 27 pg (25-34); MEAN CORPUSCULAR HGB CONC 31 g/dL (32-36); MEAN CORPUSCULAR VOLUME 85 fL (80-99); MEAN PLATELET VOLUME 10.4 fL (9.0-12.2); MONOCYTES # (AUTO) 0.8 10^3/uL (0.0-1.0); MONOCYTES % (AUTO) 10 % (0-12); NEUTROPHILS % (AUTO) 56 % (42-75); PLATELET COUNT 366 10^3/uL (130-400); WHITE BLOOD COUNT 7.3 10^3/uL (4.3-11.0)
[2021-11-16 10:13] LABS: ALBUMIN 3.9 GM/DL (3.2-4.5); POTASSIUM 4.1 MMOL/L (3.6-5.0)
[2021-11-16 10:14] LABS: CALCIUM 8.8 MG/DL (8.5-10.1)
[2021-11-16] MEDS ORDERED: LORazepam INJ 2 MG/ML (ATIVAN) VIAL IVP ONE (10:15)
[2021-11-16 10:17] LABS: BILIRUBIN,TOTAL 0.1 MG/DL (0.1-1.0)
[2021-11-16 10:19] LABS: CREATININE SERUM 0.8 MG/DL (0.60-1.30)
[2021-11-16 10:22] LABS: MAGNESIUM 1.8 MG/DL (1.6-2.4)
--- NOTE | 2021-11-16 11:02 | ED Neurological Problem ---
General Chief Complaint: Neurological Problems Stated Complaint: SEIZURES Nursing Triage Note: PT PRESENTS TO ED VIA EMS FROM HOME WITH COMPLAINTS OF 3 SEIZURES TODAY AND AND INCREASE IN SEIZURES THIS WEEK. PT ALSO REPORTS L SIDED RIB PAIN WHERE SHE FELL DURING THE SEIZURE. PT REPORTS SHE HAS BEEN TAKING HER MEDICATION PRESCRIBED. Source: patient Exam Limitations: no limitations History of Present Illness Date Seen by Provider: Nov 16, 2021 Time Seen by Provider: 09:54 Initial Comments Here with report of 3 seizures at home today and apparently fell and hit her left ribs just below the breast. Reports taking her meds as prescribed. She is following with her primary doctor, Dr. Prieto and has made calls to her neurologist, also another Dr. Prieto. Her neurologist has not called back. Primary care office is recommending that she uses distressing techniques and calming techniques and drinking her calling tea as well as continuing her meds. She has been doing those things but had the seizures today and now has the rib pain so wanted to be evaluated. Denies nausea, vomiting, diarrhea, head injury or other concerns. Does admit to anxiety and increased stress. She states that she is having nausea and vomiting because one of her neighbors was smoking marijuana and she is severely allergic to marijuana smoke. Denies other concerns. Timing/Duration: 1 week, episodic Severity: moderate Associated Symptoms: No fever/chills, No nausea/vomiting; seizures Allergies and Home Medications Allergies Coded Allergies: cephalexin (Verified Allergy, Severe, soa, 07/13/20) topiramate (Unverified Allergy, Intermediate, 04/30/21) hives amoxicillin (Verified Allergy, Unknown, 04/06/19) carbamazepine (Verified Allergy, Unknown, 04/06/19) shellfish derived (Verified Allergy, Unknown, 07/20/19) Penicillins (Unverified Adverse Reaction, Intermediate, 04/06/19) Sulfa (Sulfonamide Antibiotics) (Unverified Adverse Reaction, Intermediate, 04/06/19) Patient Home Medication List Home Medication List Reviewed: Yes Butalb/Acetaminophen/Caffeine (Esgic Capsule) 1 Each Capsule, 2 EACH PO Q6H PRN for headache Prescribed by: CELIA HUGHES on 12/17/19 1631 Cefuroxime Axetil (Cefuroxime) 250 Mg Tablet, 250 MG PO BID Prescribed by: CELIA HUGHES on 07/28/211912 Clindamycin HCl (Clindamycin HCl) 300 Mg Capsule, 300 MG PO TID Prescribed by: STEF NAVAS on 08/15/20 1646 Cyclobenzaprine HCl (Cyclobenzaprine HCl) 10 Mg Tablet, 10 MG PO Q8H PRN for SPASMS Prescribed by: SHAQ OLSEN on 01/15/21 0025 Fluoxetine HCl (Prozac) 20 Mg Capsule, Unknown Dose PO, (Reported) Entered as Reported by: FATOUMATA LIN on 09/01/19 0445 Hydroxyzine Pamoate (Vistaril) 25 Mg Capsule, Unknown Dose PO, (Reported) Entered as Reported by: FATOUMATA LIN on 09/01/19 0445 Levetiracetam (Keppra) 1,000 Mg Tablet, 1,000 MG PO TID, (Reported) Entered as Reported by: GRISELDA MARTINEZ on 07/15/19 1659 Medroxyprogesterone Acetate (Provera) 10 Mg Tablet, 10 MG PO DAILY Prescribed by: STEF NAVAS on 08/15/20 1647 Metformin HCl (Metformin HCl) 500 Mg Tablet, 500 MG PO BID Prescribed by: CELIA HUGHES on 07/28/21 1837 Mometasone Furoate (Mometasone Furoate) 45 Gm Cream..g., 45 GM TP TID Prescribed by: SHAQ OLSEN on 03/10/20 0232 Nitrofurantoin Macrocrystal (Nitrofurantoin) 100 Mg Capsule, 100 MG PO BID Prescribed by: STEF NAVAS on 07/02/21 2101 Nitrofurantoin Monohyd/M-Cryst (Macrobid 100 mg Capsule) 100 Mg Capsule, 1 TAB PO BID Prescribed by: SHAQ OLSEN on 06/11/21 0207 Ofloxacin (Floxin (Non-Formulary)) 5 Ml Drops, 3 DROPS RIGHT EAR BID Prescribed by: CELIA HUGHES on 07/05/20 1426 Ondansetron (Ondansetron Odt) 4 Mg Tab.rapdis, 4 MG PO Q6H PRN for NAUSEA/VOMITING Prescribed by: HAMMAD ROACH on 04/30/21 1134 Prednisone (Prednisone) 20 Mg Tab, 40 MG PO DAILY Prescribed by: SHAQ OLSEN on 03/10/20 0232 Review of Systems Review of Systems Constitutional: see HPI; No chills, No fever Eyes: No Symptoms Reported Ears, Nose, Mouth, Throat: denies nose pain, denies mouth pain Respiratory: No cough, No short of breath Cardiovascular: chest pain (Left ribs); No palpitations Gastrointestinal: No nausea, No vomiting Genitourinary: no symptoms reported Musculoskeletal: No back pain; muscle pain; No neck pain Skin: No change in color, No lesions Psychiatric/Neurological: Headache (Migraine headache over the last few days but resolved now), Tonic Clonic Seizures All Other Systems Reviewed Negative Unless Noted: Yes Past Pqjysyf-Ursgeb-Aplypz Hx Patient Social History Tobacco Use?: No Substance use?: No Alcohol Use?: No Pt feels they are or have been: No Immunizations Up To Date Tetanus Booster (TDap): Less than 5yrs PED Vaccines UTD: Yes First/Initial COVID19 Vaccinat: December COVID19 Vaccination Alex: January COVID19 Vaccination Date: JUL 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 R kidney removed, T/A, HTN, HIGH CHOLESTEROL, HEADACHES, PCOS, ANXIETY/DEPRESSION, PREDIABETIC Surgeries: Yes Adenoidectomy, Ear Surgery, Nephrectomy, Renal, Tonsillectomy Respiratory: No Cardiac: Yes Heart Murmur, High Cholesterol, Hypertension, Irregular Heartbeat Neurological: Yes Headaches /Migraines, Seizure Disorder Last Menstrual Period: Nov 15, 2021 Reproductive Disorders: No Female Reproductive Disorders: Polycystic Ovarian Dis Genitourinary: Yes (only one kidney) Bladder Infection Gastrointestinal: No Musculoskeletal: No Endocrine: Yes (PCOS; MORBID OBESITY) HEENT: Yes (S/P BMT'S; DECREASED 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 THEY POSSIBLY HAVE BEEN RELATED TO MIGRAINES, BUT ON PREVIOUS ER VISITS, THE SEIZURES HAVE BEEN ALL SELF-REPORTED AND NONE HAVE EVER BEEN WITNESSED AND PT HAS NEVER HAD AN EEG PAST SURGICAL HISTORY: -BMT'S -REMOVAL OF BENIGN TUMOR FROM ROOF OF MOUTH -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 -TONSILLECTOMY AND ADENOIDECTOMY Physical Exam Vital Signs Vital Signs - First Documented 11/16/21 09:09 Temp 36.8 Pulse 118 Resp 20 B/P (MAP) 175/89 (117) Pulse Ox 97 Capillary Refill : Less Than 3 Seconds Height, Weight, BMI Height: 5'5.00" Weight: 260lbs. 0oz. 117.682634rr; 52.00 BMI Method:Actual General Appearance: WD/WN, no apparent distress HEENT: PERRL/EOMI, pharynx normal Neck: full range of motion, supple Respiratory: lungs clear, normal breath sounds Cardiovascular: no murmur, tachycardia Gastrointestinal: non tender, soft Extremities: non-tender, normal inspection Neurologic/Psychiatric: alert, oriented x 3 Crainal Nerves: normal hearing, normal speech, PERRL Coordination/Gait: normal gait Motor/Sensory: no motor deficit, no sensory deficit Skin: normal color, warm/dry Progress/Results/Core Measures Results/Orders Lab Results Laboratory Tests Test 11/16/21 09:00 Range/Units White Blood Count 7.3 4.3-11.0 10^3/uL Red Blood Count 4.45 3.80-5.11 10^6/uL Hemoglobin 11.8 11.5-16.0 g/dL Hematocrit 38 35-52 % Mean Corpuscular Volume 85 80-99 fL Mean Corpuscular Hemoglobin 27 25-34 pg Mean Corpuscular Hemoglobin Concent 31 L 32-36 g/dL Red Cell Distribution Width 15.7 H 10.0-14.5 % Platelet Count 366 130-400 10^3/uL Mean Platelet Volume 10.4 9.0-12.2 fL Immature Granulocyte % (Auto) 5 % Neutrophils (%) (Auto) 56 42-75 % Lymphocytes (%) (Auto) 28 12-44 % Monocytes (%) (Auto) 10 0-12 % Eosinophils (%) (Auto) 0 0-10 % Basophils (%) (Auto) 1 0-10 % Neutrophils # (Auto) 4.0 1.8-7.8 10^3/uL Lymphocytes # (Auto) 2.0 1.0-4.0 10^3/uL Monocytes # (Auto) 0.8 0.0-1.0 10^3/uL Eosinophils # (Auto) 0.0 0.0-0.3 10^3/uL Basophils # (Auto) 0.1 0.0-0.1 10^3/uL Immature Granulocyte # (Auto) 0.4 H 0.0-0.1 10^3/uL Sodium Level 138 135-145 MMOL/L Potassium Level 4.1 3.6-5.0 MMOL/L Chloride Level 102 98-107 MMOL/L Carbon Dioxide Level 21 21-32 MMOL/L Anion Gap 15 H 5-14 MMOL/L Blood Urea Nitrogen 10 7-18 MG/DL Creatinine 0.80 0.60-1.30 MG/DL Estimat Glomerular Filtration Rate 103 BUN/Creatinine Ratio 13 Glucose Level 335 H 70-105 MG/DL Calcium Level 8.8 8.5-10.1 MG/DL Corrected Calcium 8.9 8.5-10.1 MG/DL Magnesium Level 1.8 1.6-2.4 MG/DL Total Bilirubin 0.1 0.1-1.0 MG/DL Aspartate Amino Transf (AST/SGOT) 19 5-34 U/L Alanine Aminotransferase (ALT/SGPT) 26 0-55 U/L Alkaline Phosphatase 65 40-136 U/L C-Reactive Protein High Sensitivity 2.81 H 0.00-0.50 MG/DL Total Protein 7.0 6.4-8.2 GM/DL Albumin 3.9 3.2-4.5 GM/DL Lipase 49 8-78 U/L My Orders Orders - RONDA CHASE MD Cbc With Automated Diff (11/16/21 10:01) Comprehensive Metabolic Panel (11/16/21 10:01) Hs C Reactive Protein (11/16/21 10:01) Magnesium (11/16/21 10:01) Ribs/Unilateral With Chest (11/16/21 10:01) Lorazepam Injection (Ativan Injection) (11/16/21 10:15) Lipase (11/16/21 10:10) Medications Given in ED Current Medications Medications Dose Ordered Sig/Kayode Route Start Time Stop Time Status Last Admin Dose Admin Lorazepam 1 mg ONCE ONCE IVP 11/16/21 10:15 11/16/21 10:16 DC 11/16/21 10:27 1 MG Vital Signs/I&O 11/16/21 09:09 Temp 36.8 Pulse 118 Resp 20 B/P (MAP) 175/89 (117) Pulse Ox 97 Blood Pressure Mean: 117 Progress Progress Note : Progress Note Seen and evaluated. IV via EMS. Normal saline 500 mL bolus by EMS running and we will complete that. We will get chest x-ray with left rib series as well as basic labs. Ativan 1 mg IV was given for anxiousness. Monitor patient. 1232: No acute findings on x-ray. Labs reviewed and nonconcerning. Discharged home with return precautions. Patient verbalized understanding instructions and agr eement with plan. Diagnostic Imaging Diagonstic Imaging: Xray Plain Films/CT/US/NM/MRI: chest Comments NAME: SAYDA JASSO MED REC#: [id number] PT STATUS: REG ER : 1995 PHYSICIAN: RONDA CHASE MD ADMIT DATE: 11/16/21/ER Draft Date of Exam:11/16/21 RIBS/UNILATERAL WITH CHEST HISTORY: Seizures, fall with left rib pain. COMPARISON: 06/28/2019. TECHNIQUE: Frontal view of the chest, frontal and oblique views of the left ribs. FINDINGS: Lung volumes are low. No consolidation is seen. There is no pleural effusion or pneumothorax. The cardiac silhouette is normal in size. No displaced rib fractures are seen. IMPRESSION: 1. No left rib fracture is seen. No acute pulmonary abnormality. Dictated on workstation # [id number] Dict: 11/16/21 1224 Trans: 11/16/21 1227 [id number] Interpreted by: BALJEET HINDS MD Electronically signed by: Departure Impression Primary Impression: Contusion of rib on left side Qualified Codes: S20.212A - Contusion of left front wall of thorax, initial encounter Additional Impression: Seizure disorder Disposition: HOME, SELF-CARE Condition: Improved Departure-Patient Inst. Decision time for Depature: 12:33 Referrals: KEYANA PRIETO DO (PCP/Family) Primary Care Physician Patient Instructions: Seizures, Adult (DC), Bruised Rib (DC) Add. Discharge Instructions: All discharge instructions reviewed with patient and/or family. Voiced understan ding. Continue home medications as previously prescribed. You may take Tylenol/acetaminophen and/or ibuprofen as needed for pain per package directions. You may use ice packs or heat to area of concern on the ribs as needed for comfort 20 minutes/h. Follow-up with your doctor for recheck and further evaluation and call and make appointment with your neurologist for further evaluation as well. Return for worse pain, fever, vomiting, weakness, breathing problems, worsening seizures or other concerns as needed. RONDA CHASE MD Nov 16, 2021 11:02
--- NOTE | 2021-11-16 12:28 | Diagnostic Imaging Report ---
HISTORY: Seizures, fall with left rib pain. COMPARISON: 06/28/2019. TECHNIQUE: Frontal view of the chest, frontal and oblique views of the left ribs. FINDINGS: Lung volumes are low. No consolidation is seen. There is no pleural effusion or pneumothorax. The cardiac silhouette is normal in size. No displaced rib fractures are seen. IMPRESSION: 1. No left rib fracture is seen. No acute pulmonary abnormality. Dictated by: Dictated on workstation # [id number]
[2021-11-16 12:54] VITALS: BP 161/90
== END 2021-11-16 12:54 | disposition home or self-care (01) ==
LOC: EDUNIT# 09:00 → ER 09:01
DX: G40.909 Epilepsy, unspecified, not intractable, without status epilepticus (principal); S20.212A Contusion of left front wall of thorax, initial encounter; I10 Essential (primary) hypertension; G43.909 Migraine, unspecified, not intractable, without status migrainosus; F41.9 Anxiety disorder, unspecified; F32.A Depression, unspecified; E66.01 Morbid (severe) obesity due to excess calories; Z68.43 Body mass index [BMI] 50.0-59.9, adult; Z79.899 Other long term (current) drug therapy; W01.10XA Fall on same level from slipping, tripping and stumbling with subsequent striking against unspecified object, initial encounter
CPT/HCPCS: 36415; 71101; 80053; 83690; 83735; 85025; 86141

== ENCOUNTER 2021-12-03 17:40 | Emergency (ER) | payer OTHER ==
[~2021-12-03] VITALS: Ht 165 cm; Wt 143.0 kg
--- NOTE | 2021-12-03 18:20 | ED Neurological Problem ---
General Chief Complaint: Neurological Problems Stated Complaint: SEIZURE Source: patient Exam Limitations: no limitations History of Present Illness Date Seen by Provider: Dec 03, 2021 Time Seen by Provider: 18:24 Initial Comments Patient is a 26-year-old female who presents to the ED for seizures. Four seizures today. She states she was at home by herself. She reports increasing her Keppra and Trileptal this past month. Saw her neurologist last month at [facility]. Last seizure febrile . She reports mild nose pain but states she feels much better at this time. Denies of any urinary symptoms. Denies fever, chills, nausea, vomiting, diarrhea. No current chest pain or shortness of breath. Allergies and Home Medications Allergies Coded Allergies: cephalexin (Verified Allergy, Severe, soa, 07/13/20) topiramate (Unverified Allergy, Intermediate, 04/30/21) hives amoxicillin (Verified Allergy, Unknown, 04/06/19) carbamazepine (Verified Allergy, Unknown, 04/06/19) shellfish derived (Verified Allergy, Unknown, 07/20/19) Penicillins (Unverified Adverse Reaction, Intermediate, 04/06/19) Sulfa (Sulfonamide Antibiotics) (Unverified Adverse Reaction, Intermediate, 04/06/19) Patient Home Medication List Home Medication List Reviewed: Yes Butalb/Acetaminophen/Caffeine (Esgic Capsule) 1 Each Capsule, 2 EACH PO Q6H PRN for headache Prescribed by: CELIA HUGHES on 12/17/19 1631 Cefuroxime Axetil (Cefuroxime) 250 Mg Tablet, 250 MG PO BID Prescribed by: CELIA HUGHES on 07/28/21 1913 Clindamycin HCl (Clindamycin HCl) 300 Mg Capsule, 300 MG PO TID Prescribed by: STEF NAVAS on 08/15/20 1646 Cyclobenzaprine HCl (Cyclobenzaprine HCl) 10 Mg Tablet, 10 MG PO Q8H PRN for SPASMS Prescribed by: SHAQ OLSEN on 01/15/21 0025 Fluoxetine HCl (Prozac) 20 Mg Capsule, Unknown Dose PO, (Reported) Entered as Reported by: FATOUMATA LIN on 09/01/19 0445 Hydroxyzine Pamoate (Vistaril) 25 Mg Capsule, Unknown Dose PO, (Reported) Entered as Reported by: FATOUMATA LIN on 09/01/19 0445 Levetiracetam (Keppra) 1,000 Mg Tablet, 1,000 MG PO TID, (Reported) Entered as Reported by: GRISELDA MARTINEZ on 07/15/19 1659 Medroxyprogesterone Acetate (Provera) 10 Mg Tablet, 10 MG PO DAILY Prescribed by: STEF NAVAS on 08/15/20 1647 Metformin HCl (Metformin HCl) 500 Mg Tablet, 500 MG PO BID Prescribed by: CELIA HUGHES on 07/28/21 1837 Mometasone Furoate (Mometasone Furoate) 45 Gm Cream..g., 45 GM TP TID Prescribed by: SHAQ OLSEN on 03/10/20 0232 Nitrofurantoin Macrocrystal (Nitrofurantoin) 100 Mg Capsule, 100 MG PO BID Prescribed by: STEF NAVAS on 07/02/21 2101 Nitrofurantoin Monohyd/M-Cryst (Macrobid 100 mg Capsule) 100 Mg Capsule, 1 TAB PO BID Prescribed by: SHAQ OLSEN on 06/11/21 0207 Ofloxacin (Floxin (Non-Formulary)) 5 Ml Drops, 3 DROPS RIGHT EAR BID Prescribed by: CELIA HUGHES on 07/05/20 1426 Ondansetron (Ondansetron Odt) 4 Mg Tab.rapdis, 4 MG PO Q6H PRN for NAUSEA/VOMITING Prescribed by: HAMMAD ROACH on 04/30/21 1134 Prednisone (Prednisone) 20 Mg Tab, 40 MG PO DAILY Prescribed by: SHAQ OLSEN on 03/10/20 0232 Review of Systems Review of Systems Constitutional: No chills, No diaphoresis, No fever, No malaise Eyes: Denies Drainage, Denies Decreased Acuity, Denies Inflammation, Denies Pain, Denies Photophobia Ears, Nose, Mouth, Throat: denies ear pain, denies ear discharge Respiratory: No cough, No dyspnea on exertion, No short of breath, No wheezing Cardiovascular: No chest pain, No edema Gastrointestinal: No abdominal pain, No diarrhea, No dysphagia, No nausea, No vomiting Genitourinary: No decreased output, No discharge Musculoskeletal: No back pain, No joint pain Skin: No change in color, No change in hair/nails All Other Systems Reviewed Negative Unless Noted: Yes Past Osevtuk-Tntbzi-Nxzybd Hx Immunizations Up To Date Tetanus Booster (TDap): Less than 5yrs PED Vaccines UTD: Yes First/Initial COVID19 Vaccinat: December COVID19 Vaccination Alex: January COVID19 Vaccination Date: JUL Seasonal Allergies Seasonal Allergies: Yes Past Medical History Surgery/Hospitalization HX: Hx seizure disorder. R kidney removed, T/A, HTN, HIGH CHOLESTEROL, HEADACHES, PCOS, ANXIETY/DEPRESSION, PREDIABETIC Surgeries: Yes Adenoidectomy, Ear Surgery, Nephrectomy, Renal, Tonsillectomy Respiratory: No Cardiac: Yes Heart Murmur, High Cholesterol, Hypertension, Irregular Heartbeat Neurological: Yes Headaches /Migraines, Seizure Disorder Reproductive Disorders: No Female Reproductive Disorders: Polycystic Ovarian Dis Genitourinary: Yes (only one kidney) Bladder Infection Gastrointestinal: No Musculoskeletal: No Endocrine: Yes (PCOS; MORBID OBESITY) HEENT: Yes (S/P BMT'S; DECREASED HEARING IN BOTH EAR;BENIGN TUMOR-ROOF OF MOUTH REMOVED) Chronic Ear Infection Hearing Impairment: Hard of Hearing Cancer: No Psychosocial: Yes Anxiety, Depression Integumentary: Yes (skin issues on lt leg) Blood Disorders: No Family Medical History No Pertinent Family Hx SOCIAL HISTORY: -ETOH--OCCASIONAL USE -DRUGS--DENIES USE -SMOKING--QUIT 2011 ADDITIONAL PAST MEDICAL HISTORY: HAD SEIZURES CHILD AND WAS ON MEDICATIONS UNTIL AGE 10; NO SEIZURES FOR YEARS, THEN STARTED HAVING SEIZURES AGAIN 10/2017, AND HAS BEEN BACK ON SEIZURE MEDICATIONS SINCE THEN. THEY POSSIBLY HAVE BEEN RELATED TO MIGRAINES, BUT ON PREVIOUS ER VISITS, THE SEIZURES HAVE BEEN ALL SELF-REPORTED AND NONE HAVE EVER BEEN WITNESSED AND PT HAS NEVER HAD AN EEG PAST SURGICAL HISTORY: -BMT'S -REMOVAL OF BENIGN TUMOR FROM ROOF OF MOUTH -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 -TONSILLECTOMY AND ADENOIDECTOMY Physical Exam Vital Signs Vital Signs - First Documented 12/03/21 17:40 Temp 36.6 Pulse 94 Resp 18 B/P (MAP) 163/97 (119) Capillary Refill : Height, Weight, BMI Height: 5'5.00" Weight: 260lbs. 0oz. 117.348309yh; 52.00 BMI Method:Actual General Appearance: WD/WN, no apparent distress HEENT: PERRL/EOMI, normal ENT inspection, TMs normal, pharynx normal Neck: non-tender, full range of motion, supple Respiratory: chest non-tender, lungs clear, normal breath sounds, no respiratory distress Cardiovascular: regular rate, rhythm, no edema, no gallop, no JVD Gastrointestinal: normal bowel sounds, non tender, soft, no organomegaly, no pulsatile mass Back: normal inspection, no CVA tenderness Extremities: normal range of motion, non-tender, normal inspection, no pedal edema Neurologic/Psychiatric: cotton baler II-XII nml as tested, no motor/sensory deficits, alert, normal mood/affect, oriented x 3 Progress/Results/Core Measures Results/Orders My Orders Orders - AMANDA RUIZ Naproxen Tablet (Naprosyn Tablet) (12/03/21 18:30) Medications Given in ED Current Medications Medications Dose Ordered Sig/Kayode Route Start Time Stop Time Status Last Admin Dose Admin Naproxen 500 mg ONCE ONCE PO 12/03/21 18:30 12/03/21 18:31 DC 12/03/21 18:38 500 MG Vital Signs/I&O 12/03/21 12/03/21 17:40 18:38 Temp 36.6 36.6 Pulse 94 94 Resp 18 18 B/P (MAP) 163/97 (119) 163/97 Departure Communication (Admissions) History of seizures. Last seizure on the . Her neurologist at [facility] increased her Keppra to 2000 mg twice daily and Trileptal 900 mg twice daily. Patient reports mild nose pain. She has no naris bleeding, septal deviation. No swelling or bruising. Unwitnessed seizure at home. Patient states that she feels better at this time would like be discharged. Refused any lab work EKG. Recommend observation. Patient was given a dose of naproxen here in the ED with improvement. Patient will follow up outpatient with her neurologist. She denies driving at this time. Return precaution were discussed Impression Primary Impression: Seizure Disposition: 01 HOME, SELF-CARE Condition: Stable Departure-Patient Inst. Decision time for Depature: 18:29 Referrals: KEYANA PRIETO DO (PCP/Family) Primary Care Physician Patient Instructions: Seizures, Adult (DC), Seizures, Adult ED AMANDA RUIZ Dec 03, 2021 18:20
[2021-12-03] MEDS ORDERED: NAPROXEN 250 MG (NAPROSYN) TABLET PO ONE (18:30)
[2021-12-03 18:38] VITALS: BP 163/97
== END 2021-12-03 18:38 | disposition home or self-care (01) ==
LOC: EDUNIT# 17:40 → ER 17:48
DX: G40.909 Epilepsy, unspecified, not intractable, without status epilepticus (principal); I10 Essential (primary) hypertension; F41.9 Anxiety disorder, unspecified; F32.9 Major depressive disorder, single episode, unspecified; E66.01 Morbid (severe) obesity due to excess calories; Z68.43 Body mass index [BMI] 50.0-59.9, adult; Z79.899 Other long term (current) drug therapy
CPT/HCPCS: 99283

== ENCOUNTER 2021-12-08 19:10 | Emergency (ER) | payer OTHER ==
--- NOTE | 2021-12-08 19:19 | ED Neurological Problem ---
General Stated Complaint: HAD SEIZURE AND HIT HEAD ON WALL Source: patient Exam Limitations: no limitations History of Present Illness Date Seen by Provider: Dec 08, 2021 Time Seen by Provider: 19:18 Initial Comments To ER by private vehicle with reports that she had a seizure and hit her head on the wall. She does not remember any of this but she found some blood on her wall and she has a sore spot on the top of her head. Timing/Duration: 1-3 hours Severity: moderate Associated Symptoms: denies symptoms Allergies and Home Medications Allergies Coded Allergies: cephalexin (Verified Allergy, Severe, soa, 07/13/20) topiramate (Unverified Allergy, Intermediate, 04/30/21) hives amoxicillin (Verified Allergy, Unknown, 04/06/19) carbamazepine (Verified Allergy, Unknown, 04/06/19) shellfish derived (Verified Allergy, Unknown, 07/20/19) Penicillins (Unverified Adverse Reaction, Intermediate, 04/06/19) Sulfa (Sulfonamide Antibiotics) (Unverified Adverse Reaction, Interm ediate, 04/06/19) Patient Home Medication List Home Medication List Reviewed: Yes Butalb/Acetaminophen/Caffeine (Esgic Capsule) 1 Each Capsule, 2 EACH PO Q6H PRN for headache Prescribed by: CELIA HUGHES on 12/17/19 1631 Cefuroxime Axetil (Cefuroxime) 250 Mg Tablet, 250 MG PO BID Prescribed by: CELIA HUGHES on 07/28/21 1913 Clindamycin HCl (Clindamycin HCl) 300 Mg Capsule, 300 MG PO TID Prescribed by: STEF NAVAS on 08/15/20 1646 Cyclobenzaprine HCl (Cyclobenzaprine HCl) 10 Mg Tablet, 10 MG PO Q8H PRN for SPASMS Prescribed by: SHAQ OLSEN on 01/15/21 0025 Fluoxetine HCl (Prozac) 20 Mg Capsule, Unknown Dose PO, (Reported) Entered as Reported by: FATOUMATA LIN on 09/01/19 044 Hydroxyzine Pamoate (Vistaril) 25 Mg Capsule, Unknown Dose PO, (Reported) Entered as Reported by: FATOUMATA LIN on 09/01/19444 Levetiracetam (Keppra) 1,000 Mg Tablet, 1,000 MG PO TID, (Reported) Entered as Reported by: GRISELDA MARTINEZ on 07/15/19 1659 Medroxyprogesterone Acetate (Provera) 10 Mg Tablet, 10 MG PO DAILY Prescribed by: STEF NAVAS on 08/15/20 1647 Metformin HCl (Metformin HCl) 500 Mg Tablet, 500 MG PO BID Prescribed by: CELIA HUGHES on 07/28/21 1837 Mometasone Furoate (Mometasone Furoate) 45 Gm Cream..g., 45 GM TP TID Prescribed by: SHAQ OLSEN on 03/10/20 0232 Nitrofurantoin Macrocrystal (Nitrofurantoin) 100 Mg Capsule, 100 MG PO BID Prescribed by: STEF NAVAS on 07/02/21 210 Nitrofurantoin Monohyd/M-Cryst (Macrobid 100 mg Capsule) 100 Mg Capsule, 1 TAB PO BID Prescribed by: SHAQ OLSEN on 06/11/21 0207 Ofloxacin (Floxin (Non-Formulary)) 5 Ml Drops, 3 DROPS RIGHT EAR BID Prescribed by: CELIA HUGHES on 07/05/20 1426 Ondansetron (Ondansetron Odt) 4 Mg Tab.rapdis, 4 MG PO Q6H PRN for NAUSEA/VOMITING Prescribed by: HAMMAD ROACH on 04/30/21 1134 Prednisone (Prednisone) 20 Mg Tab, 40 MG PO DAILY Prescribed by: SHAQ OLSEN on 03/10/20 0232 Review of Systems Review of Systems Constitutional: see HPI Eyes: No Symptoms Reported Ears, Nose, Mouth, Throat: no symptoms reported Respiratory: no symptoms reported Cardiovascular: no symptoms reported Genitourinary: no symptoms reported Musculoskeletal: no symptoms reported Skin: no symptoms reported Psychiatric/Neurological: No Symptoms Reported Past Icmyfqv-Lulueo-Dcrmnw Hx Immunizations Up To Date Tetanus Booster (TDap): Less than 5yrs PED Vaccines UTD: Yes First/Initial COVID19 Vaccinat: December COVID19 Vaccination Alex: January COVID19 Vaccination Date: JUL Seasonal Allergies Seasonal Allergies: Yes Past Medical History Surgery/Hospitalization HX: Hx seizure disorder. R kidney removed, T/A, HTN, HIGH CHOLESTEROL, HEADACHES, PCOS, ANXIETY/DEPRESSION, PREDIABETIC Surgeries: Yes Adenoidectomy, Ear Surgery, Nephrectomy, Renal, Tonsillectomy Respiratory: No Cardiac: Yes Heart Murmur, High Cholesterol, Hypertension, Irregular Heartbeat Neurological: Yes Headaches /Migraines, Seizure Disorder Reproductive Disorders: No Female Reproductive Disorders: Polycystic Ovarian Dis Genitourinary: Yes (only one kidney) Bladder Infection Gastrointestinal: No Musculoskeletal: No Endocrine: Yes (PCOS; MORBID OBESITY) HEENT: Yes (S/P BMT'S; DECREASED HEARING IN BOTH EAR;BENIGN TUMOR-ROOF OF MOUTH REMOVED) Chronic Ear Infection Hearing Impairment: Hard of Hearing Cancer: No Psychosocial: Yes Anxiety, Depression Integumentary: Yes (skin issues on lt leg) Blood Disorders: No Family Medical History No Pertinent Family Hx SOCIAL HISTORY: -ETOH--OCCASIONAL USE -DRUGS--DENIES USE -SMOKING--QUIT 2011 ADDITIONAL PAST MEDICAL HISTORY: HAD SEIZURES CHILD AND WAS ON MEDICATIONS UNTIL AGE 10; NO SEIZURES FOR YEARS, THEN STARTED HAVING SEIZURES AGAIN 10/2017, AND HAS BEEN BACK ON SEIZURE MEDICATIONS SINCE THEN. THEY POSSIBLY HAVE BEEN RELATED TO MIGRAINES, BUT ON PREVIOUS ER VISITS, THE SEIZURES HAVE BEEN ALL SELF-REPORTED AND NONE HAVE EVER BEEN WITNESSED AND PT HAS NEVER HAD AN EEG PAST SURGICAL HISTORY: -BMT'S -REMOVAL OF BENIGN TUMOR FROM ROOF OF MOUTH -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 -TONSILLECTOMY AND ADENOIDECTOMY Physical Exam Vital Signs Capillary Refill : Height, Weight, BMI Height: 5'5.00" Weight: 260lbs. 0oz. 117.431481bu; 52.00 BMI Method:Actual General Appearance: WD/WN, no apparent distress HEENT: PERRL/EOMI, normal ENT inspection, TMs normal, other (No singleton sign or hemotympanum. Within the midline of the posterior parietal scalp there is a quarter sized area of erythema with some purulent material able to be expressed from the center. Suspect that she had a small abscess that is oozing purulent material rather than a seizure that she just does not remember.) Respiratory: no respiratory distress, no accessory muscle use Gastrointestinal: normal bowel sounds, non tender Extremities: normal range of motion, non-tender Neurologic/Psychiatric: alert, normal mood/affect, oriented x 3 Crainal Nerves: normal hearing, normal speech, PERRL Motor/Sensory: no motor deficit, no sensory deficit Skin: normal color, warm/dry Departure Impression Primary Impression: Seizure disorder Additional Impression: Abscess or cellulitis of scalp Disposition: HOME, SELF-CARE Condition: Stable Departure-Patient Inst. Decision time for Depature: 19:18 Referrals: KEYANA PRIETO DO (PCP/Family) Primary Care Physician Patient Instructions: NO INSTRUCTIONS GIVEN Add. Discharge Instructions: 1. Return to ER for any concerns. Follow-up with your doctor next week. Warm compresses to the scalp. Tylenol and ibuprofen for pain. Antibiotic as directed. Scripts Doxycycline Hyclate (Doxycycline Hyclate) 100 Mg Tablet 100 MG PO BID, #14 TAB 0 Refills Prov: CELIA HUGHES APRN 12/08/21 CELIA HUGHES APRN Dec 08, 2021 19:19
[2021-12-08] MEDS ORDERED: DOXY100T2 PO (19:38)
[2021-12-08] MEDS ORDERED: DOXYCYCLINE 100 MG (VIBRAMYCIN) TABLET PO SCH (19:45)
[2021-12-08 20:01] VITALS: BP 184/95
== END 2021-12-08 20:04 | disposition home or self-care (01) ==
LOC: EDUNIT# 19:10 → ER 19:15
DX: G40.909 Epilepsy, unspecified, not intractable, without status epilepticus (principal); L03.811 Cellulitis of head [any part, except face]; L02.811 Cutaneous abscess of head [any part, except face]; I10 Essential (primary) hypertension; G43.909 Migraine, unspecified, not intractable, without status migrainosus; F41.9 Anxiety disorder, unspecified; F32.A Depression, unspecified; E66.01 Morbid (severe) obesity due to excess calories; Z68.43 Body mass index [BMI] 50.0-59.9, adult; Z88.1 Allergy status to other antibiotic agents; Z90.5 Acquired absence of kidney; Z88.0 Allergy status to penicillin; Z88.2 Allergy status to sulfonamides; Z79.899 Other long term (current) drug therapy
CPT/HCPCS: 99283

== ENCOUNTER 2021-12-21 22:05 | Emergency (ER) | payer OTHER ==
[~2021-12-21 22:05] MED LIST changes: +DOXY100T2 PO
[2021-12-21 22:20] VITALS: BP 175/98
--- NOTE | 2021-12-21 22:28 | ED Neurological Problem ---
General Chief Complaint: Neurological Problems Stated Complaint: SEIZURE Source: patient Exam Limitations: no limitations History of Present Illness Date Seen by Provider: Dec 21, 2021 Time Seen by Provider: 22:25 Initial Comments To ER by EMS from home with reports of multiple seizures today. She has an alleged seizure disorder. She has been compliant with her medications. She believes her seizures this evening to be related to her body being under stress because she could be . She informs me that the gentleman that was with her last time is now her fianc, she is sexually active and she is 3 weeks late on her period. Timing/Duration: other Severity: moderate Associated Symptoms: seizures Allergies and Home Medications Allergies Coded Allergies: cephalexin (Verified Allergy, Severe, soa, 07/13/20) topiramate (Unverified Allergy, Intermediate, 04/30/21) hives amoxicillin (Verified Allergy, Unknown, 04/06/19) carbamazepine (Verified Allergy, Unknown, 04/06/19) shellfish derived (Verified Allergy, Unknown, 07/20/19) Penicillins (Unverified Adverse Reaction, Intermediate, 04/06/19) Sulfa (Sulfonamide Antibiotics) (Unverified Adverse Reaction, Intermediate, 04/06/19) Patient Home Medication List Home Medication List Reviewed: Yes Butalb/Acetaminophen/Caffeine (Esgic Capsule) 1 Each Capsule, 2 EACH PO Q6H PRN for headache Prescribed by: CELIA HUGHES on 12/17/19 1631 Cefuroxime Axetil (Cefuroxime) 250 Mg Tablet, 250 MG PO BID Prescribed by: CELIA HUGHES on 07/28/21 191 Clindamycin HCl (Clindamycin HCl) 300 Mg Capsule, 300 MG PO TID Prescribed by: STEF NAVAS on 08/15/20 1646 Cyclobenzaprine HCl (Cyclobenzaprine HCl) 10 Mg Tablet, 10 MG PO Q8H PRN for SP ASMS Prescribed by: SHAQ OLSEN on 01/15/21 0025 Doxycycline Hyclate (Doxycycline Hyclate) 100 Mg Tablet, 100 MG PO BID Prescribed by: CELIA HUGHES on 12/08/21 193 Fluoxetine HCl (Prozac) 20 Mg Capsule, Unknown Dose PO, (Reported) Entered as Reported by: FATOUMATA LIN on 09/01/19 0445 Hydroxyzine Pamoate (Vistaril) 25 Mg Capsule, Unknown Dose PO, (Reported) Entered as Reported by: FATOUMATA LIN on 09/01/19 0445 Levetiracetam (Keppra) 1,000 Mg Tablet, 1,000 MG PO TID, (Reported) Entered as Reported by: GRISELDA MARTINEZ on 07/15/19 1659 Medroxyprogesterone Acetate (Provera) 10 Mg Tablet, 10 MG PO DAILY Prescribed by: STEF NAVAS on 08/15/20 1647 Metformin HCl (Metformin HCl) 500 Mg Tablet, 500 MG PO BID Prescribed by: CELIA HUGHES on 07/28/21 1837 Mometasone Furoate (Mometasone Furoate) 45 Gm Cream..g., 45 GM TP TID Prescribed by: SHAQ OLSEN on 03/10/20 0232 Nitrofurantoin Macrocrystal (Nitrofurantoin) 100 Mg Capsule, 100 MG PO BID Prescribed by: STEF NAVAS on 07/02/21 210 Nitrofurantoin Monohyd/M-Cryst (Macrobid 100 mg Capsule) 100 Mg Capsule, 1 TAB PO BID Prescribed by: SHAQ OLSEN on 06/11/21 0207 Ofloxacin (Floxin (Non-Formulary)) 5 Ml Drops, 3 DROPS RIGHT EAR BID Prescribed by: CELIA HUGHES on 07/05/20 1426 Ondansetron (Ondansetron Odt) 4 Mg Tab.rapdis, 4 MG PO Q6H PRN for NAUSEA/VOMITING Prescribed by: HAMMAD ROACH on 04/30/21 1134 Prednisone (Prednisone) 20 Mg Tab, 40 MG PO DAILY Prescribed by: SHAQ OLSEN on 03/10/20 0232 Review of Systems Review of Systems Constitutional: see HPI Eyes: No Symptoms Reported Ears, Nose, Mouth, Throat: no symptoms reported Respiratory: no symptoms reported Cardiovascular: no symptoms reported Genitourinary: no symptoms reported Musculoskeletal: no symptoms reported Skin: no symptoms reported Psychiatric/Neurological: See HPI, Other (Unwitnessed seizures) Endocrine: No Symptoms Reported Past Kosfvwc-Ngfwtz-Ulxvsh Hx Immunizations Up To Date Tetanus Booster (TDap): Less than 5yrs PED Vaccines UTD: Yes First/Initial COVID19 Vaccinat: December COVID19 Vaccination Alex: January COVID19 Vaccination Date: JUL Seasonal Allergies Seasonal Allergies: Yes Past Medical History Surgery/Hospitalization HX: Hx seizure disorder. R kidney removed, T/A, HTN, HIGH CHOLESTEROL, HEADACHES, PCOS, ANXIETY/DEPRESSION, PREDIABETIC Surgeries: Yes Adenoidectomy, Ear Surgery, Nephrectomy, Renal, Tonsillectomy Respiratory: No Cardiac: Yes Heart Murmur, High Cholesterol, Hypertension, Irregular Heartbeat Neurological: Yes Headaches /Migraines, Seizure Disorder Reproductive Disorders: No Female Reproductive Disorders: Polycystic Ovarian Dis Genitourinary: Yes (only one kidney) Bladder Infection Gastrointestinal: No Musculoskeletal: No Endocrine: Yes (PCOS; MORBID OBESITY) HEENT: Yes (S/P BMT'S; DECREASED HEARING IN BOTH EAR;BENIGN TUMOR-ROOF OF MOUTH REMOVED) Chronic Ear Infection Hearing Impairment: Hard of Hearing Cancer: No Psychosocial: Yes Anxiety, Depression Integumentary: Yes (skin issues on lt leg) Blood Disorders: No Family Medical History No Pertinent Family Hx SOCIAL HISTORY: -ETOH--OCCASIONAL USE -DRUGS--DENIES USE -SMOKING--QUIT 2011 ADDITIONAL PAST MEDICAL HISTORY: HAD SEIZURES CHILD AND WAS ON MEDICATIONS UNTIL AGE 10; NO SEIZURES FOR YEARS, THEN STARTED HAVING SEIZURES AGAIN 10/2017, AND HAS BEEN BACK ON SEIZURE MEDICATIONS SINCE THEN. THEY POSSIBLY HAVE BEEN RELATED TO MIGRAINES, BUT ON PREVIOUS ER VISITS, THE SEIZURES HAVE BEEN ALL SELF-REPORTED AND NONE HAVE EVER BEEN WITNESSED AND PT HAS NEVER HAD AN EEG PAST SURGICAL HISTORY: -BMT'S -REMOVAL OF BENIGN TUMOR FROM ROOF OF MOUTH -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 -TONSILLECTOMY AND ADENOIDECTOMY Physical Exam Vital Signs Vital Signs - First Documented 12/21/21 22:20 Temp 36.8 Pulse 98 Resp 18 B/P (MAP) 175/98 (123) Pulse Ox 98 O2 Delivery Room Air Capillary Refill : Height, Weight, BMI Height: 5'5.00" Weight: 260lbs. 0oz. 117.135101hh; 52.00 BMI Method:Actual General Appearance: WD/WN, no apparent distress HEENT: PERRL/EOMI, normal ENT inspection Neck: non-tender, full range of motion Respiratory: no respiratory distress, no accessory muscle use Gastrointestinal: normal bowel sounds, non tender Neurologic/Psychiatric: alert, normal mood/affect, oriented x 3 Crainal Nerves: normal hearing, normal speech, PERRL Skin: normal color, warm/dry Progress/Results/Core Measures Results/Orders My Orders Orders - CELIA HUGHES APRN Urine Bedside (12/21/21 22:24) Vital Signs/I&O 12/21/21 22:20 Temp 36.8 Pulse 98 Resp 18 B/P (MAP) 175/98 (123) Pulse Ox 98 O2 Delivery Room Air Departure Impression Primary Impression: Seizure disorder Additional Impression: test negative Disposition: 01 HOME, SELF-CARE Condition: Stable Departure-Patient Inst. Decision time for Depature: 22:27 Referrals: KEYANA PRIETO DO (PCP/Family) Primary Care Physician Patient Instructions: Seizures, Adult (DC) CELIA HUGHES APRN Dec 21, 2021 22:28
== END 2021-12-21 22:36 | disposition home or self-care (01) ==
LOC: EDUNIT# 22:05 → ER 22:07
DX: G40.909 Epilepsy, unspecified, not intractable, without status epilepticus (principal); Z32.02 Encounter for pregnancy test, result negative
CPT/HCPCS: 84703; 99283

== ENCOUNTER 2022-02-06 00:46 | Emergency (ER) | payer OTHER ==
[~2022-02-06] VITALS: Ht 165.1 cm; Wt 143.3 kg
[2022-02-06] MEDS ORDERED: methylPREDNISolone 125 MG (Solu-MEDROL) VIAL IVP ONE (01:15)
[2022-02-06] MEDS ORDERED: NS IV 1000 ML 1,000 ML IV SCH (01:15)
--- NOTE | 2022-02-06 02:19 | ED General ---
General Chief Complaint: Allergic Reaction Stated Complaint: ALLERGIC RXN Nursing Triage Note: PT TO ROOM BY [facility]. PT STATES SHE TOOK 40MG ATORVASTATIN AT 0005 TONIGHT, AND BECAME RED/ITCHY AND THROAT BECAME HOARSE. PT HAS REDNESS TO FACE AND CHEST. EMS STATES GIVING PT 50 OF BENADRYL IV EN ROUTE History of Present Illness Date Seen by Provider: Feb 06, 2022 Time Seen by Provider: 00:50 Initial Comments 26-year-old female with PMH of multiple drug allergies/HTN/HLD/obesity, is brought in by EMS with complaints of an allergic reaction to atorvastatin which was taken right after midnight tonight. Patient took this medication for the very first time since it was prescribed. She developed an itchy throat with a hoarse voice, a rash over her face and neck almost immediately. Patient had immediate nausea and vomiting and she states she also vomited out the pill. Discussed other possibilities of other allergies but patient states this is the only new medication she has taken and she is convinced that is the cause of her allergic reaction. Denies fever, abdominal pain, chest pain, shortness of breath, headache, dizziness, palpitations. Allergies and Home Medications Allergies Coded Allergies: cephalexin (Verified Allergy, Severe, soa, 07/13/20) topiramate (Unverified Allergy, Intermediate, 04/30/21) hives amoxicillin (Verified Allergy, Unknown, 04/06/19) carbamazepine (Verified Allergy, Unknown, 04/06/19) shellfish derived (Verified Allergy, Unknown, 07/20/19) Penicillins (Unverified Adverse Reaction, Intermediate, 04/06/19) Sulfa (Sulfonamide Antibiotics) (Unverified Adverse Reaction, Intermediate, 04/06/19) Patient Home Medication List Home Medication List Reviewed: Yes Butalb/Acetaminophen/Caffeine (Esgic Capsule) 1 Each Capsule, 2 EACH PO Q6H PRN for headache Prescribed by: CELIA HUGHES on 12/17/19 1631 Cefuroxime Axetil (Cefuroxime) 250 Mg Tablet, 250 MG PO BID Prescribed by: CELIA HUGHES on 07/28/211912 Clindamycin HCl (Clindamycin HCl) 300 Mg Capsule, 300 MG PO TID Prescribed by: STEF NAVAS on 08/15/20 1646 Cyclobenzaprine HCl (Cyclobenzaprine HCl) 10 Mg Tablet, 10 MG PO Q8H PRN for SPASMS Prescribed by: SHAQ OLSEN on 01/15/21 0025 Doxycycline Hyclate (Doxycycline Hyclate) 100 Mg Tablet, 100 MG PO BID Prescribed by: CELIA HUGHES on 12/08/21 193 Fluoxetine HCl (Prozac) 20 Mg Capsule, Unknown Dose PO, (Reported) Entered as Reported by: FATOUMATA LIN on 09/01/19 0445 Hydroxyzine Pamoate (Vistaril) 25 Mg Capsule, Unknown Dose PO, (Reported) Entered as Reported by: FATOUMATA LIN on 09/01/19 0445 Levetiracetam (Keppra) 1,000 Mg Tablet, 1,000 MG PO TID, (Reported) Entered as Reported by: GRISELDA MARTINEZ on 07/15/19 1659 Medroxyprogesterone Acetate (Provera) 10 Mg Tablet, 10 MG PO DAILY Prescribed by: STEF NAVAS on 08/15/20 1647 Metformin HCl (Metformin HCl) 500 Mg Tablet, 500 MG PO BID Prescribed by: CELIA HUGHES on 07/28/21 1837 Mometasone Furoate (Mometasone Furoate) 45 Gm Cream..g., 45 GM TP TID Prescribed by: SHAQ OLSEN on 03/10/20 0232 Nitrofurantoin Macrocrystal (Nitrofurantoin) 100 Mg Capsule, 100 MG PO BID Prescribed by: STEF NAVAS on 07/02/21 2101 Nitrofurantoin Monohyd/M-Cryst (Macrobid 100 mg Capsule) 100 Mg Capsule, 1 TAB PO BID Prescribed by: SHAQ OLSEN on 06/11/21 0207 Ofloxacin (Floxin (Non-Formulary)) 5 Ml Drops, 3 DROPS RIGHT EAR BID Prescribed by: CELIA HUGHES on 07/05/20 1426 Ondansetron (Ondansetron Odt) 4 Mg Tab.rapdis, 4 MG PO Q6H PRN for NAUSEA/VOMITING Prescribed by: HAMMAD ROACH on 04/30/21 1134 Prednisone (Prednisone) 20 Mg Tab, 40 MG PO DAILY Prescribed by: SHAQ OLSEN on 03/10/20 0232 Review of Systems Review of Systems Constitutional: no symptoms reported EENTM: throat swelling, other (itchy face and throat, and neck with a macular rash that is pruritic) Respiratory: no symptoms reported Cardiovascular: no symptoms reported Gastrointestinal: no symptoms reported Genitourinary: no symptoms reported Musculoskeletal: no symptoms reported Skin: pruritus, rash Psychiatric/Neurological: No Symptoms Reported Hematologic/Lymphatic: No Symptoms Reported Immunological/Allergic: no symptoms reported Past Lsvdkbi-Jsyfhx-Arawsl Hx Patient Social History Tobacco Use?: No Use of E-Cig and/or Vaping dev: No Substance use?: No Alcohol Use?: No Immunizations Up To Date Tetanus Booster (TDap): Less than 5yrs PED Vaccines UTD: Yes Influenza Vaccine Up-to-Date: Yes; Up-to-Date First/Initial COVID19 Vaccinat: December COVID19 Vaccination Alex: January COVID19 Vaccination Date: JUL Seasonal Allergies Seasonal Allergies: Yes Past Medical History Surgery/Hospitalization HX: Hx seizure disorder. R kidney removed, T/A, HTN, HIGH CHOLESTEROL, HEADACHES, PCOS, ANXIETY/DEPRESSION, PREDIABETIC Surgeries: Yes Adenoidectomy, Ear Surgery, Nephrectomy, Renal, Tonsillectomy Respiratory: No Cardiac: Yes Heart Murmur, High Cholesterol, Hypertension, Irregular Heartbeat Neurological: Yes Headaches /Migraines, Seizure Disorder Reproductive Disorders: No Female Reproductive Disorders: Polycystic Ovarian Dis Genitourinary: Yes (only one kidney) Bladder Infection Gastrointestinal: No Musculoskeletal: No Endocrine: Yes (PCOS; MORBID OBESITY) HEENT: Yes (S/P BMT'S; DECREASED HEARING IN BOTH EAR;BENIGN TUMOR-ROOF OF MOUTH REMOVED) Chronic Ear Infection Hearing Impairment: Hard of Hearing Cancer: No Psychosocial: Yes Anxiety, Depression Integumentary: Yes (skin issues on lt leg) Blood Disorders: No Family Medical History No Pertinent Family Hx SOCIAL HISTORY: -ETOH--OCCASIONAL USE -DRUGS--DENIES USE -SMOKING--QUIT 2011 ADDITIONAL PAST MEDICAL HISTORY: HAD SEIZURES CHILD AND WAS ON MEDICATIONS UNTIL AGE 10; NO SEIZURES FOR YEARS, THEN STARTED HAVING SEIZURES AGAIN 10/2017, AND HAS BEEN BACK ON SEIZURE MEDICATIONS SINCE THEN. THEY POSSIBLY HAVE BEEN RELATED TO MIGRAINES, BUT ON PREVIOUS ER VISITS, THE SEIZURES HAVE BEEN ALL SELF-REPORTED AND NONE HAVE EVER BEEN WITNESSED AND PT HAS NEVER HAD AN EEG PAST SURGICAL HISTORY: -BMT'S -REMOVAL OF BENIGN TUMOR FROM ROOF OF MOUTH -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 -TONSILLECTOMY AND ADENOIDECTOMY Physical Exam Vital Signs Vital Signs - First Documented 02/06/22 00:48 Temp 36.8 Pulse 106 Resp 18 B/P (MAP) 161/104 (123) Pulse Ox 96 Capillary Refill : Height, Weight, BMI Height: 5'5.00" Weight: 260lbs. 0oz. [id number]; 52.00 BMI Method:Actual General Appearance: Mild Distress, Obese HEENT: PERRL/EOMI, TMs Normal, Pharynx Normal (no swelling of oral cavity, throat, or lips.), Moist Mucous Membranes Neck: Normal Inspection Respiratory: Chest Non Tender, Lungs Clear, Normal Breath Sounds, No Accessory Muscle Use, No Respiratory Distress Cardiovascular: Regular Rate, Rhythm Gastrointestinal: Normal Bowel Sounds, Non Tender, Soft Back: Normal Inspection Neurologic/Psychiatric: Alert, Oriented x3, No Motor/Sensory Deficits, Normal Mood/Affect Skin: Rash (macular rash that is pruritic on face and neck only) Progress/Results/Core Measures Suspected Sepsis SIRS Temperature: Pulse: 106 Respiratory Rate: 18 Blood Pressure 161 /104 Mean: 123 Results/Orders My Orders Orders - BENEDICTO MARTÍNEZ MD Ed Iv/Invasive Line Start (02/06/22 01:10) Ns Iv 1000 Ml (Sodium Chloride 0.9%) (02/06/22 01:15) Methylprednisolone Sod Succ (Solu-Medrol (02/06/22 01:15) Medications Given in ED Current Medications Medications Dose Ordered Sig/Kayode Route Start Time Stop Time Status Last Admin Dose Admin Methylprednisolone Sodium Succinate 125 mg ONCE ONCE IVP 02/06/22 01:15 02/06/22 01:16 DC 02/06/22 01:17 125 MG Vital Signs/I&O 02/06/22 00:48 Temp 36.8 Pulse 106 Resp 18 B/P (MAP) 161/104 (123) Pulse Ox 96 Capillary Refill : Blood Pressure Mean: 123 Progress Note : Progress Note 1. MEDICATION ALLERGY TO ATORVASTATIN: - Stop taking the medication -Benadryl 50 mg IV was given in the ambulance patient noticed an immediate improvement with this. -In the ER Solu-Medrol 125 mg IV stat and normal saline bolus given, with further improvement from patient. - Pt states she is allergic to Pepcid. -Patient speaking in complete sentences without any evidence of respiratory distress, with stable vitals. -Prescription given for an EpiPen with instructions on how to use it, prednisone taper for 5 days. Take Benadryl 25mg BID for [address] while taking this medication. -Pcp follow up within the next 3 days. Advised patient that this is important. -The patient was seen in the ED, and treated appropriately to presentation at a specific point in time. Patient is informed that there is a possibility that disease and illness can evolve and change in acuity rapidly or slowly after patient is discharged from the ER. Precautionary advice given to the patient for immediate return to ER if symptoms worsen or do not resolve, and to seek emergency care sooner rather than later. Pt also advised on the importance of PCP follow up and compliance with management and follow up plan. Pt verbally expressed understanding. - Departure Impression Primary Impression: Allergic reaction caused by a drug Qualified Codes: T78.40XA - Allergy, unspecified, initial encounter Disposition: 01 HOME, SELF-CARE Condition: Improved Departure-Patient Inst. Referrals: KEYANA PRIETO DO (PCP/Family) Primary Care Physician Patient Instructions: Drug Allergy, Adverse Drug Reactions, Adult Add. Discharge Instructions: -Prescription given for an EpiPen with instructions on how to use it, prednisone taper for 5 days. Take Benadryl 25mg BID for [address] while taking this medication. -Pcp follow up needed within the next 3 days. Advised patient that this is important. -The patient was seen in the ED, and treated appropriately to presentation at a specific point in time. Patient is informed that there is a possibility that disease and illness can evolve and change in acuity rapidly or slowly after patient is discharged from the ER. Precautionary advice given to the patient for immediate return to ER if symptoms worsen or do not resolve, and to seek emergency care sooner rather than later. Pt also advised on the importance of PCP follow up and compliance with management and follow up plan. Pt verbally expressed understanding. - All discharge instructions reviewed with patient and/or family. Voiced understanding. Scripts Albuterol Sulfate (PROAIR HFA) 1 Puff Puff 2 PUFF IH Q4H for Shortness of Breath for 10 Days, #1 EA 1 PUFF = 90 MCG Prov: BENEDICTO MARTÍNEZ MD 02/06/22 Prednisone (Prednisone) 50 Mg Tab 50 MG PO DAILY for 5 Days, #5 TAB Prov: BENEDICTO MARTÍNEZ MD 02/06/22 BENEDICTO MARTÍNEZ MD Feb 06, 2022 02:19
[2022-02-06] MEDS ORDERED: RT-ALBUINH IH (02:31)
[2022-02-06] MEDS ORDERED: PRD50T PO (02:31)
[2022-02-06 02:58] VITALS: BP 148/91
== END 2022-02-06 03:01 | disposition home or self-care (01) ==
LOC: EDUNIT# 00:46 → ER 00:48
DX: R21 Rash and other nonspecific skin eruption (principal); T46.6X5A Adverse effect of antihyperlipidemic and antiarteriosclerotic drugs, initial encounter; E66.01 Morbid (severe) obesity due to excess calories; Z68.43 Body mass index [BMI] 50.0-59.9, adult
CPT/HCPCS: 99283

== ENCOUNTER 2022-03-20 10:16 | Emergency (ER) | payer OTHER ==
[~2022-03-20] VITALS: Ht 165.1 cm; Wt 144.7 kg
[~2022-03-20 10:16] MED LIST changes: +PRD50T PO
[2022-03-20] MEDS ORDERED: BSS 15 ML IR ONE (10:45)
[2022-03-20] MEDS ORDERED: FLUORESCEIN (FLUOR-I-STRIPS) 1 MG STRP OU ONE (10:45)
[2022-03-20] MEDS ORDERED: TETRACAINE 0.5% OPHTH SOLN 4 ML BTL (SINGLE DOSE ONLY) OU ONE (10:45)
--- NOTE | 2022-03-20 10:46 | ED General ---
General Chief Complaint: Neurological Problems Stated Complaint: SEIZURE ,BLURRED VISION R EYE Source of Information: Patient Exam Limitations: No Limitations History of Present Illness Date Seen by Provider: Mar 20, 2022 Time Seen by Provider: 10:30 Initial Comments Patient is a 26-year-old female who presents to the emergency department today with a chief complaint of right eye pain after a seizure and fall this morning. Patient states she was walking through her living room at approximately 630, she had a "seizure" and fell forward. She was standing up got very dizzy and then fell forward again onto her dining room table. She states she hit her right eye. She noted later the blurry vision and increasing pain. She has not taken anything for it. No recent illnesses. Denies any complaints of loss of consciousness as a result of hitting the dining room table. States that she is compliant with her daily medications. Is not nauseous. She states bright light is hurting her eye. All other review of systems reviewed and negative except as stated. Timing/Duration: 1-3 Hours Severity: Moderate Associated Systoms: Other (eye pain) Allergies and Home Medications Allergies Coded Allergies: cephalexin (Verified Allergy, Severe, soa, 07/13/20) topiramate (Unverified Allergy, Intermediate, 04/30/21) hives amoxicillin (Verified Allergy, Unknown, 04/06/19) carbamazepine (Verified Allergy, Unknown, 04/06/19) shellfish derived (Verified Allergy, Unknown, 07/20/19) Penicillins (Unverified Adverse Reaction, Intermediate, 04/06/19) Sulfa (Sulfonamide Antibiotics) (Unverified Adverse Reaction, Intermediate, 04/06/19) Patient Home Medication List Home Medication List Reviewed: Yes Albuterol Sulfate (Proair Hfa) 1 Puff Puff, 2 PUFF IH Q4H Prescribed by: BENEDICTO MARTÍNEZ MD on 02/06/22 0231 Butalb/Acetaminophen/Caffeine (Esgic Capsule) 1 Each Capsule, 2 EACH PO Q6H PRN for headache Prescribed by: CELIA HUGHES on 12/17/19 1631 Cefuroxime Axetil (Cefuroxime) 250 Mg Tablet, 250 MG PO BID Prescribed by: CELIA HUGHES on 07/28/21 191 Clindamycin HCl (Clindamycin HCl) 300 Mg Capsule, 300 MG PO TID Prescribed by: STEF NAVAS on 08/15/20 1646 Cyclobenzaprine HCl (Cyclobenzaprine HCl) 10 Mg Tablet, 10 MG PO Q8H PRN for SPASMS Prescribed by: SHAQ OLSEN on 01/15/21 0025 Doxycycline Hyclate (Doxycycline Hyclate) 100 Mg Tablet, 100 MG PO BID Prescribed by: CELIA HUGHES on 12/08/21 1938 Erythromycin Base (Erythromycin Opthalmic Ointment) 5 Mg/Gram (0.5 %) Oint...g., 0 OP Q4H Prescribed by: OLMAN NEWTON on 03/20/22 1121 Fluoxetine HCl (Prozac) 20 Mg Capsule, Unknown Dose PO, (Reported) Entered as Reported by: FATOUMATA LIN on 09/01/19 0445 Hydroxyzine Pamoate (Vistaril) 25 Mg Capsule, Unknown Dose PO, (Reported) Entered as Reported by: FATOUMATA LIN on 09/01/19 0445 Levetiracetam (Keppra) 1,000 Mg Tablet, 1,000 MG PO TID, (Reported) Entered as Reported by: GRISELDA MARTINEZ on 07/15/19 1659 Medroxyprogesterone Acetate (Provera) 10 Mg Tablet, 10 MG PO DAILY Prescribed by: STEF NAVAS on 08/15/20 1647 Metformin HCl (Metformin HCl) 500 Mg Tablet, 500 MG PO BID Prescribed by: CELIA HUGHES on 07/28/21 1837 Mometasone Furoate (Mometasone Furoate) 45 Gm Cream..g., 45 GM TP TID Prescribed by: SHAQ OLSEN on 03/10/20 0232 Nitrofurantoin Macrocrystal (Nitrofurantoin) 100 Mg Capsule, 100 MG PO BID Prescribed by: TSEF NAVAS on 07/02/21 210 Nitrofurantoin Monohyd/M-Cryst (Macrobid 100 mg Capsule) 100 Mg Capsule, 1 TAB PO BID Prescribed by: SHAQ OLSEN on 06/11/21 0207 Ofloxacin (Floxin (Non-Formulary)) 5 Ml Drops, 3 DROPS RIGHT EAR BID Prescribed by: CELIA HUGHES on 07/05/20 1426 Ondansetron (Ondansetron Odt) 4 Mg Tab.rapdis, 4 MG PO Q6H PRN for NAUSEA/VOMITING Prescribed by: HAMMAD ROACH on 04/30/21 1134 Prednisone (Prednisone) 20 Mg Tab, 40 MG PO DAILY Prescribed by: SHAQ OLSEN on 03/10/20 0232 Prednisone (Prednisone) 50 Mg Tab, 50 MG PO DAILY Prescribed by: BENEDICTO MARTÍNEZ MD on 02/06/22 0231 Review of Systems Review of Systems Constitutional: see HPI EENTM: eye pain Respiratory: no symptoms reported Cardiovascular: no symptoms reported Gastrointestinal: no symptoms reported Genitourinary: no symptoms reported : No LMP: Mar 20, 2022 Musculoskeletal: no symptoms reported Skin: no symptoms reported Psychiatric/Neurological: Other (seizure) All Other Systems Reviewed Negative Unless Noted: Yes Past Exkkwmc-Lqqxls-Ehyhda Hx Immunizations Up To Date Tetanus Booster (TDap): Less than 5yrs PED Vaccines UTD: Yes First/Initial COVID19 Vaccinat: December COVID19 Vaccination Alex: January COVID19 Vaccination Date: JUL Seasonal Allergies Seasonal Allergies: Yes Past Medical History Surgery/Hospitalization HX: Hx seizure disorder. R kidney removed, T/A, HTN, HIGH CHOLESTEROL, HEADACHES, PCOS, ANXIETY/DEPRESSION, PREDIABETIC Surgeries: Yes Adenoidectomy, Ear Surgery, Nephrectomy, Renal, Tonsillectomy Respiratory: No Cardiac: Yes Heart Murmur, High Cholesterol, Hypertension, Irregular Heartbeat Neurological: Yes Headaches /Migraines, Seizure Disorder Reproductive Disorders: No Female Reproductive Disorders: Polycystic Ovarian Dis Genitourinary: Yes (only one kidney) Bladder Infection Gastrointestinal: No Musculoskeletal: No Endocrine: Yes (PCOS; MORBID OBESITY) HEENT: Yes (S/P BMT'S; DECREASED HEARING IN BOTH EAR;BENIGN TUMOR-ROOF OF MOUTH REMOVED) Chronic Ear Infection Hearing Impairment: Hard of Hearing Cancer: No Psychosocial: Yes Anxiety, Depression Integumentary: Yes (skin issues on lt leg) Blood Disorders: No Family Medical History No Pertinent Family Hx SOCIAL HISTORY: -ETOH--OCCASIONAL USE -DRUGS--DENIES USE -SMOKING--QUIT 2011 ADDITIONAL PAST MEDICAL HISTORY: HAD SEIZURES CHILD AND WAS ON MEDICATIONS UNTIL AGE 10; NO SEIZURES FOR YEARS, THEN STARTED HAVING SEIZURES AGAIN 10/2017, AND HAS BEEN BACK ON SEIZURE MEDICATIONS SINCE THEN. THEY POSSIBLY HAVE BEEN RELATED TO MIGRAINES, BUT ON PREVIOUS ER VISITS, THE SEIZURES HAVE BEEN ALL SELF-REPORTED AND NONE HAVE EVER BEEN WITNESSED AND PT HAS NEVER HAD AN EEG PAST SURGICAL HISTORY: -BMT'S -REMOVAL OF BENIGN TUMOR FROM ROOF OF MOUTH -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 -TONSILLECTOMY AND ADENOIDECTOMY Physical Exam Vital Signs Vital Signs - First Documented 03/20/22 10:24 Temp 36.8 Pulse 82 Resp 20 B/P (MAP) 182/98 (126) Pulse Ox 96 Capillary Refill : Height, Weight, BMI Height: 5'5.00" Weight: 260lbs. 0oz. 117.114403xt; 52.00 BMI Method:Actual General Appearance: No Apparent Distress, WD/WN Eyes: Bilateral Eye Normal Inspection, Bilateral Eye PERRL, Bilateral Eye EOMI HEENT: PERRL/EOMI, TMs Normal, Normal ENT Inspection, Pharynx Normal, Moist Mucous Membranes, Other (tenderness over right inferior orbit and zygoma) Neck: Full Range of Motion, Normal Inspection Respiratory: Lungs Clear, Normal Breath Sounds, No Accessory Muscle Use, No Respiratory Distress Cardiovascular: Regular Rate, Rhythm, Normal Peripheral Pulses Extremity: Normal Inspection Neurologic/Psychiatric: Alert, Oriented x3, No Motor/Sensory Deficits, Normal Mood/Affect, Other (patient has convergence insufficiency right eye. PERRL; EOM otherwise normal) Skin: Normal Color, Warm/Dry, Other (no contusions around the right eye noted) Procedures/Interventions Eye : Location: right eye Anesthesia (gtts): Tetracaine Progress/Procedure Conclusion florescein stain to right eye revealed linera patchy up take just above the iris and lateral - at about the 11 occlock position. This was evaluated and re- evaluated and felt to be legitimate uptake signifying abrasion. Progress/Results/Core Measures Suspected Sepsis SIRS Temperature: Pulse: Respiratory Rate: Blood Pressure / Mean: Results/Orders My Orders Orders - OLMAN NEWTON MD Tetracaine 0.5% Ophth Amena Sdv (Tetracai (03/20/22 10:45) Fluorescein Strips (Dcesw-U-Ykkodt) (03/20/22 10:45) Balanced Salt Irrigation Soln (Bss Irrig (03/20/22 10:45) Vital Signs/I&O 03/20/22 10:24 Temp 36.8 Pulse 82 Resp 20 B/P (MAP) 182/98 (126) Pulse Ox 96 Capillary Refill : Progress Note : Time: 11:24 Progress Note patient was becoming quite hostile at her wait stating she "just wanted (my) discharge papers". She was going to decline the stain because "I cant stand the smell of your cleaning agents". I apologized and told her I would be happy to bring her an AMA paper to sign, but counselled her on leaving against medical advice without proper evaluation - not knowing if she had an abrasion that might need treatment. She relented and allowed me to perform the procedure. I advised her on treatment, advised her to follow up with her eye doctor (alfonso) in one week. and we discussed return precautions. Departure Impression Primary Impression: Corneal abrasion Qualified Codes: S05.01XA - Injury of conjunctiva and corneal abrasion without foreign body, right eye, initial encounter Additional Impression: Convergence insufficiency Disposition: HOME, SELF-CARE Condition: Stable Departure-Patient Inst. Decision time for Depature: 11:20 Referrals: KEYANA PRIETO DO (PCP/Family) Primary Care Physician Patient Instructions: Corneal Abrasion Add. Discharge Instructions: Use the antibiotic eye ointment as prescribed for the next 5 days. Take rril-tql-[id number] extra strength Tylenol every 6 hours as needed for pain. Also cool compresses to the right may be helpful for pain. Please call Dr. Begum's office today for a follow-up appointment in 1 week. Return to the emergency department for any worsening pain especially with worsening blurry vision, eye redness, swelling, drainage or other emergent concerning symptoms. Scripts Erythromycin Base (Erythromycin Opthalmic Ointment) 5 Mg/Gram (0.5 %) Oint...g. 0 OP Q4H for 5 Days, #1 EA 1/2 inch Prov: OLMAN NEWTON MD 03/20/22 Images Eye 1 - Abrasion, Dye uptake (fluorescein) Copy Copies To 1: EKYANA PRIETO V DO Copies To 2: WILFRIDO BEGUM OD, KATHRYN M MD Mar 20, 2022 10:46
[2022-03-20] MEDS ORDERED: ERYT1OIN6 OP (11:21)
[2022-03-20 11:25] VITALS: BP 156/86
== END 2022-03-20 11:28 | disposition home or self-care (01) ==
LOC: EDUNIT# 10:16 → ER 10:17
DX: S05.01XA Injury of conjunctiva and corneal abrasion without foreign body, right eye, initial encounter (principal); H51.11 Convergence insufficiency; E66.01 Morbid (severe) obesity due to excess calories; Z68.43 Body mass index [BMI] 50.0-59.9, adult; W18.30XA Fall on same level, unspecified, initial encounter; Y92.001 Dining room of unspecified non-institutional (private) residence as the place of occurrence of the external cause
CPT/HCPCS: 99281

== ENCOUNTER 2022-04-23 22:09 | Emergency (ER) | payer MEDICAID, OTHER ==
[~2022-04-23 22:09] MED LIST changes: -ERYT-96 PO; +ERYT1OIN6 OP; +[UNRECOGNIZED DRUG - CODE] PO
[2022-04-23 23:09] LABS: BILIRUBIN,URINE NEGATIVE (NEGATIVE); CLARITY,URINE CLEAR; GLUCOSE, URINE (UA) NEGATIVE (NEGATIVE); KETONES,URINE NEGATIVE (NEGATIVE); LEUKOCYTE ESTERASE ,URINE TRACE (NEGATIVE); NITRITE,URINE NEGATIVE (NEGATIVE); PH,URINE 8.5 (5-9); PROTEIN,URINE 1+ (NEGATIVE)
[2022-04-23 23:12] LABS: BACTERIA,URINE FEW /HPF; SQUAMOUS EPITHELIAL CELL,UR 0-2 /HPF; WBC,URINE 0-2 /HPF
[2022-04-23 23:13] LABS: COLOR,URINE YELLOW
[2022-04-23 23:20] LABS: AMPHETAMINE SCREEN, URINE NEGATIVE (NEGATIVE); BARBITURATE SCREEN URINE NEGATIVE (NEGATIVE); BENZODIAZEPINES SCREEN URINE NEGATIVE (NEGATIVE); CANNABINOID SCREEN, URINE NEGATIVE (NEGATIVE); COCAINE SCREEN URINE NEGATIVE (NEGATIVE); METHADONE STAT NEGATIVE (NEGATIVE); OPIATE SCREEN URINE NEGATIVE (NEGATIVE); OXYCODONE STAT NEGATIVE (NEGATIVE); PROPOXYPHENE STAT NEGATIVE (NEGATIVE); TRICYCLIC ANTIDEPRESSANTS SCRE NEGATIVE (NEGATIVE)
--- NOTE | 2022-04-23 23:33 | ED General ---
General Chief Complaint: Neurological Problems Stated Complaint: SEIZURE Allergies and Home Medications Allergies Coded Allergies: cephalexin (Verified Allergy, Severe, soa, 07/13/20) topiramate (Unverified Allergy, Intermediate, 04/30/21) hives amoxicillin (Verified Allergy, Unknown, 04/06/19) carbamazepine (Verified Allergy, Unknown, 04/06/19) shellfish derived (Verified Allergy, Unknown, 07/20/19) Penicillins (Unverified Adverse Reaction, Intermediate, 04/06/19) Sulfa (Sulfonamide Antibiotics) (Unverified Adverse Reaction, Intermediate, 04/06/19) Patient Home Medication List Albuterol Sulfate (Proair Hfa) 1 Puff Puff, 2 PUFF IH Q4H Prescribed by: BENEDICTO MARTÍNEZ MD on 02/06/22 0231 Butalb/Acetaminophen/Caffeine (Esgic Capsule) 1 Each Capsule, 2 EACH PO Q6H PRN for headache Prescribed by: CELIA HUGHES on 12/17/19 1631 Cefuroxime Axetil (Cefuroxime) 250 Mg Tablet, 250 MG PO BID Prescribed by: CELIA HUGHES on 07/28/21 1913 Clindamycin HCl (Clindamycin HCl) 300 Mg Capsule, 300 MG PO TID Prescribed by: STEF NAVAS on 08/15/20 1646 Cyclobenzaprine HCl (Cyclobenzaprine HCl) 10 Mg Tablet, 10 MG PO Q8H PRN for SPASMS Prescribed by: SHAQ OLSEN on 01/15/21 0025 Doxycycline Hyclate (Doxycycline Hyclate) 100 Mg Tablet, 100 MG PO BID Prescribed by: CELIA HUGHES on 12/08/21 1938 Erythromycin Base (Erythromycin Opthalmic Ointment) 5 Mg/Gram (0.5 %) Oint...g., 0 OP Q4H Prescribed by: OLMAN NEWTON on 03/20/22 1121 Fluoxetine HCl (Prozac) 20 Mg Capsule, Unknown Dose PO, (Reported) Entered as Reported by: FATOUMATA LIN on 09/01/19444 Hydroxyzine Pamoate (Vistaril) 25 Mg Capsule, Unknown Dose PO, (Reported) Entered as Reported by: FATOUMATA LIN on 09/01/19444 Levetiracetam (Keppra) 1,000 Mg Tablet, 1,000 MG PO TID, (Reported) Entered as Reported by: GRISELDA MARTINEZ on 07/15/19 1659 Medroxyprogesterone Acetate (Provera) 10 Mg Tablet, 10 MG PO DAILY Prescribed by: STEF NAVAS on 08/15/20 1647 Metformin HCl (Metformin HCl) 500 Mg Tablet, 500 MG PO BID Prescribed by: CELIA HUGHES on 07/28/21 1837 Mometasone Furoate (Mometasone Furoate) 45 Gm Cream..g., 45 GM TP TID Prescribed by: SHAQ OLSEN on 03/10/20 0232 Nitrofurantoin Macrocrystal (Nitrofurantoin) 100 Mg Capsule, 100 MG PO BID Prescribed by: STEF NAVAS on 07/02/21 210 Nitrofurantoin Monohyd/M-Cryst (Macrobid 100 mg Capsule) 100 Mg Capsule, 1 TAB PO BID Prescribed by: SHAQ OLSEN on 06/11/21 0207 Ofloxacin (Floxin (Non-Formulary)) 5 Ml Drops, 3 DROPS RIGHT EAR BID Prescribed by: CELIA HUGHES on 07/05/20 1426 Ondansetron (Ondansetron Odt) 4 Mg Tab.rapdis, 4 MG PO Q6H PRN for NAUSEA/VOMITING Prescribed by: HAMMAD ROACH on 04/30/21 1134 Prednisone (Prednisone) 20 Mg Tab, 40 MG PO DAILY Prescribed by: SHAQ OLSEN on 03/10/20 0232 Prednisone (Prednisone) 50 Mg Tab, 50 MG PO DAILY Prescribed by: BENEDICTO MARTÍNEZ MD on 02/06/22 0231 Past Aylxysm-Xpbufe-Ruacak Hx Immunizations Up To Date Tetanus Booster (TDap): Less than 5yrs PED Vaccines UTD: Yes First/Initial COVID19 Vaccinat: December COVID19 Vaccination Alex: January COVID19 Vaccination Date: JUL Seasonal Allergies Seasonal Allergies: Yes Past Medical History Surgery/Hospitalization HX: Hx seizure disorder. R kidney removed, T/A, HTN, HIGH CHOLESTEROL, HEADACHES, PCOS, ANXIETY/DEPRESSION, PREDIABETIC Surgeries: Yes Adenoidectomy, Ear Surgery, Nephrectomy, Renal, Tonsillectomy Respiratory: No Cardiac: Yes Heart Murmur, High Cholesterol, Hypertension, Irregular Heartbeat Neurological: Yes Headaches /Migraines, Seizure Disorder Reproductive Disorders: No Female Reproductive Disorders: Polycystic Ovarian Dis Genitourinary: Yes (only one kidney) Bladder Infection Gastrointestinal: No Musculoskeletal: No Endocrine: Yes (PCOS; MORBID OBESITY) HEENT: Yes (S/P BMT'S; DECREASED HEARING IN BOTH EAR;BENIGN TUMOR-ROOF OF MOUTH REMOVED) Chronic Ear Infection Hearing Impairment: Hard of Hearing Cancer: No Psychosocial: Yes Anxiety, Depression Integumentary: Yes (skin issues on lt leg) Blood Disorders: No Family Medical History No Pertinent Family Hx SOCIAL HISTORY: -ETOH--OCCASIONAL USE -DRUGS--DENIES USE -SMOKING--QUIT 2011 ADDITIONAL PAST MEDICAL HISTORY: HAD SEIZURES CHILD AND WAS ON MEDICATIONS UNTIL AGE 10; NO SEIZURES FOR YEARS, THEN STARTED HAVING SEIZURES AGAIN 10/2017, AND HAS BEEN BACK ON SEIZURE MEDICATIONS SINCE THEN. THEY POSSIBLY HAVE BEEN RELATED TO MIGRAINES, BUT ON PREVIOUS ER VISITS, THE SEIZURES HAVE BEEN ALL SELF-REPORTED AND NONE HAVE EVER BEEN WITNESSED AND PT HAS NEVER HAD AN EEG PAST SURGICAL HISTORY: -BMT'S -REMOVAL OF BENIGN TUMOR FROM ROOF OF MOUTH -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 -TONSILLECTOMY AND ADENOIDECTOMY Physical Exam Vital Signs Capillary Refill : Height, Weight, BMI Height: 5'5.00" Weight: 260lbs. 0oz. 117.436065wv; 53.00 BMI Method:Actual Progress/Results/Core Measures Suspected Sepsis SIRS Temperature: Pulse: Respiratory Rate: Blood Pressure / Mean: Results/Orders Lab Results Laboratory Tests Test 04/23/22 23:01 Range/Units Urine Color YELLOW Urine Clarity CLEAR Urine pH 8.5 5-9 Urine Specific [place] 1.010 L 1.016-1.022 Urine Protein 1+ H NEGATIVE Urine Glucose (UA) NEGATIVE NEGATIVE Urine Ketones NEGATIVE NEGATIVE Urine Nitrite NEGATIVE NEGATIVE Urine Bilirubin NEGATIVE NEGATIVE Urine Urobilinogen 0.2 < = 1.0 MG/DL Urine Leukocyte Esterase TRACE H NEGATIVE Urine RBC (Auto) NEGATIVE NEGATIVE Urine RBC NONE /HPF Urine WBC 0-2 /HPF Urine Squamous Epithelial Cells 0-2 /HPF Urine Renal Epithelial Cells NONE /HPF Urine Crystals NONE /LPF Urine Bacteria FEW H /HPF Urine Casts NONE /LPF Urine Mucus NEGATIVE /LPF Urine Culture Indicated NO Urine Opiates Screen NEGATIVE NEGATIVE Urine Oxycodone Screen NEGATIVE NEGATIVE Urine Methadone Screen NEGATIVE NEGATIVE Urine Propoxyphene Screen NEGATIVE NEGATIVE Urine Barbiturates Screen NEGATIVE NEGATIVE Ur Tricyclic Antidepressants Screen NEGATIVE NEGATIVE Urine Phencyclidine Screen NEGATIVE NEGATIVE Urine Amphetamines Screen NEGATIVE NEGATIVE Urine Methamphetamines Screen NEGATIVE NEGATIVE Urine Benzodiazepines Screen NEGATIVE NEGATIVE Urine Cocaine Screen NEGATIVE NEGATIVE Urine Cannabinoids Screen NEGATIVE NEGATIVE My Orders Orders - SHAQ OLSEN DO Urine Bedside (04/23/22 22:58) Drug Screen Stat (Urine) (04/23/22 22:58) Ua Culture If Indicated (04/23/22 22:58) Vital Signs/I&O Capillary Refill : Departure Impression Primary Impression: SELF REPORTED SEIZURE Disposition: HOME, SELF-CARE Condition: Stable Departure-Patient Inst. Referrals: KEYANA PRIETO DO (PCP/Family) Primary Care Physician Patient Instructions: Seizures, Adult (DC) Add. Discharge Instructions: HOME, REST TAKE YOUR MEDICATIONS PRESCRIBED TYLENOL NEEDED FOR PAIN FOLLOW UP WITH YOUR NEUROLOGIST AND MENTAL HEALTH PROVIDER THIS WEEK FOR FURTHER CARE--CALL IN THE MORNING TO SCHEDULE APPOINTMENT All discharge instructions reviewed with patient and/or family. Voiced u nderstanding. SHAQ OLSEN DO Apr 23, 2022 23:33
[2022-04-23 23:50] VITALS: BP 151/93
== END 2022-04-23 23:52 | disposition home or self-care (01) ==
LOC: EDUNIT# 22:09 → ER 22:11
DX: G40.909 Epilepsy, unspecified, not intractable, without status epilepticus (principal); E66.01 Morbid (severe) obesity due to excess calories; Z68.43 Body mass index [BMI] 50.0-59.9, adult
CPT/HCPCS: 80306; 81000; 84703; 99282

== ENCOUNTER 2022-05-22 06:51 | Emergency (ER) | payer MEDICAID ==
[~2022-05-22] VITALS: Ht 165 cm; Wt 143.0 kg
[2022-05-22 07:24] LABS: BILIRUBIN,URINE NEGATIVE (NEGATIVE); CLARITY,URINE CLOUDY; COLOR,URINE RED; GLUCOSE, URINE (UA) NEGATIVE (NEGATIVE); KETONES,URINE 1+ (NEGATIVE); LEUKOCYTE ESTERASE ,URINE 2+ (NEGATIVE); NITRITE,URINE POSITIVE (NEGATIVE); PROTEIN,URINE 3+ (NEGATIVE)
[2022-05-22 07:40] LABS: RBC,URINE TNTC /HPF
[2022-05-22 07:41] LABS: BACTERIA,URINE FEW /HPF
[2022-05-22 07:43] VITALS: BP_SYST 134; BP_SYST 148; BP_SYST 159; BP_DIAS 70; BP_DIAS 75; BP_DIAS 91
[2022-05-22 08:06] LABS: BASOPHILS # (AUTO) 0.1 10^3/uL (0.0-0.1); BASOPHILS % (AUTO) 1 % (0-10); EOSINOPHILS % (AUTO) 0 % (0-10); HEMATOCRIT 40 % (35-52); HEMOGLOBIN 13.3 g/dL (11.5-16.0); LYMPHOCYTES % (AUTO) 27 % (12-44); MEAN CORPUSCULAR HEMOGLOBIN 27 pg (25-34); MEAN CORPUSCULAR HGB CONC 33 g/dL (32-36); MEAN CORPUSCULAR VOLUME 81 fL (80-99); MEAN PLATELET VOLUME 10.2 fL (9.0-12.2); MONOCYTES # (AUTO) 0.6 10^3/uL (0.0-1.0); MONOCYTES % (AUTO) 8 % (0-12); NEUTROPHILS # (AUTO) 4.6 10^3/uL (1.8-7.8); NEUTROPHILS % (AUTO) 63 % (42-75); PLATELET COUNT 349 10^3/uL (130-400); WHITE BLOOD COUNT 7.3 10^3/uL (4.3-11.0)
[2022-05-22 08:10] LABS: ALBUMIN 4.6 GM/DL (3.2-4.5); CHLORIDE 102 MMOL/L (98-107); POTASSIUM 3.7 MMOL/L (3.6-5.0); SODIUM 137 MMOL/L (135-145)
--- NOTE | 2022-05-22 08:10 | ED Syncope ---
General Chief Complaint: Dizziness/Syncope Stated Complaint: STS KEEPS PASSING OUT,HIT HEAD Nursing Triage Note: PT BROUGHT TO ED BY FATHER BY POV FOR DIZZINESS. PER PT SHE HAS BEEN "PASSING OUT SINCE FRIDAY". PT REPORTS SHE HIT HER HEAD ON THE BATHTUB THIS MORNING AROUND 0620. PT HAS HX OF EPILEPSY AND IS TAKING HER MEDICATIONS. PT AMB. TO ROOM 05 WITHOUT DIFFICULTY. Source of Information: Patient Exam Limitations: No Limitations History of Present Illness Date Seen by Provider: May 22, 2022 Time Seen by Provider: 07:33 Initial Comments The patient presents to the ER by private conveyance with chief complaint that since Friday she has been passing out. She been experiencing some back pain and feels like she is drinking a lot of fluids but not urinating as much. She recently started metformin again for her PCOS and prediabetes 2 to 3 weeks ago. Primary care is Keyana Prieto. She takes Keppra and has been stable on her antiepileptics for years. She does not feel like she is having seizures but she says she will pass out or get lightheaded whenever she goes to stand up. She is not feeling palpitations, rapid heart rate. She says she has feeling like she is going to pass out for comes on and feels very hot like she cannot get all of her clothes off fast enough. She did have some episodes of loose stools for co uple days about 2 weeks ago. She is not having any GI upset symptoms now. No nausea vomiting fevers chills. She reports she has had a couple falls with these passing out episodes and hit the back of her head this morning on the bathtub. She has also hit her low back several times and has been having pain although the pain in her low back came on after the initial fall. She has a history of migraines for which she uses Tylenol Motrin and caffeine. She does not use caffeine routinely. Allergies and Home Medications Allergies Coded Allergies: cephalexin (Verified Allergy, Severe, soa, 07/13/20) topiramate (Unverified Allergy, Intermediate, 04/30/21) hives amoxicillin (Verified Allergy, Unknown, 04/06/19) carbamazepine (Verified Allergy, Unknown, 04/06/19) shellfish derived (Verified Allergy, Unknown, 07/20/19) Penicillins (Unverified Adverse Reaction, Intermediate, 04/06/19) Sulfa (Sulfonamide Antibiotics) (Unverified Adverse Reaction, Intermediate, 04/06/19) Patient Home Medication List Home Medication List Reviewed: Yes Albuterol Sulfate (Proair Hfa) 1 Puff Puff, 2 PUFF IH Q4H Prescribed by: BENEDICTO MARTÍNEZ MD on 02/06/22 0231 Butalb/Acetaminophen/Caffeine (Esgic Capsule) 1 Each Capsule, 2 EACH PO Q6H PRN for headache Prescribed by: CELIA HUGHES on 12/17/19 1631 Cefuroxime Axetil (Cefuroxime) 250 Mg Tablet, 250 MG PO BID Prescribed by: CELIA HUGHES on 07/28/21 191 Clindamycin HCl (Clindamycin HCl) 300 Mg Capsule, 300 MG PO TID Prescribed by: STEF NAVAS on 08/15/20 164 Cyclobenzaprine HCl (Cyclobenzaprine HCl) 10 Mg Tablet, 10 MG PO Q8H PRN for SPASMS Prescribed by: SHAQ OLSEN on 01/15/21 0025 Doxycycline Hyclate (Doxycycline Hyclate) 100 Mg Tablet, 100 MG PO BID Prescribed by: CELIA HUGHES on 12/08/21 1938 Erythromycin Base (Erythromycin Opthalmic Ointment) 5 Mg/Gram (0.5 %) Oint...g., 0 OP Q4H Prescribed by: OLMAN NEWTON on 03/20/22 1121 Fluoxetine HCl (Prozac) 20 Mg Capsule, Unknown Dose PO, (Reported) Entered as Reported by: FATOUMATA LIN on 09/01/19 044 Hydroxyzine Pamoate (Vistaril) 25 Mg Capsule, Unknown Dose PO, (Reported) Entered as Reported by: FATOUMATA LIN on 09/01/19 044 Levetiracetam (Keppra) 1,000 Mg Tablet, 1,000 MG PO TID, (Reported) Entered as Reported by: GRISELDA MARTINEZ on 07/15/19 165 Medroxyprogesterone Acetate (Provera) 10 Mg Tablet, 10 MG PO DAILY Prescribed by: STEF NAVAS on 08/15/20 164 Metformin HCl (Metformin HCl) 500 Mg Tablet, 500 MG PO BID Prescribed by: CELIA HUGHES on 07/28/21 1837 Mometasone Furoate (Mometasone Furoate) 45 Gm Cream..g., 45 GM TP TID Prescribed by: SHAQ OLSEN on 03/10/20 023 Nitrofurantoin Macrocrystal (Nitrofurantoin) 100 Mg Capsule, 100 MG PO BID Prescribed by: STEF NAVAS on 07/02/21 210 Nitrofurantoin Monohyd/M-Cryst (Macrobid 100 mg Capsule) 100 Mg Capsule, 1 TAB PO BID Prescribed by: SHAQ OLSEN on 06/11/21 0207 Ofloxacin (Floxin (Non-Formulary)) 5 Ml Drops, 3 DROPS RIGHT EAR BID Prescribed by: CELIA HUGHES on 07/05/20 1426 Ondansetron (Ondansetron Odt) 4 Mg Tab.rapdis, 4 MG PO Q6H PRN for NAUSEA/VOMITING Prescribed by: HAMMAD ROACH on 04/30/21 1134 Prednisone (Prednisone) 20 Mg Tab, 40 MG PO DAILY Prescribed by: SHAQ OLSEN on 03/10/20 023 Prednisone (Prednisone) 50 Mg Tab, 50 MG PO DAILY Prescribed by: BENEDICTO MARTÍNEZ MD on 02/06/22 023 Review of Systems Constitutional: No chills, No diaphoresis EENTM: No ear discharge, No ear pain Respiratory: No cough, No dyspnea on exertion Cardiovascular: No chest pain, No edema, No Hx of Intervention, No palpitations Gastrointestinal: see HPI; No abdominal pain, No constipation, No diarrhea, No nausea, No vomiting Genitourinary: No discharge, No dysuria : No Control/STD Prophylaxis: None Musculoskeletal: see HPI, back pain All Other Systems Reviewed Negative Unless Noted: Yes Past Tupkmeq-Freiks-Kfkzlv Hx Patient Social History Tobacco Use?: No Substance use?: No Alcohol Use?: No Pt feels they are or have been: No Immunizations Up To Date Tetanus Booster (TDap): Less than 5yrs PED Vaccines UTD: Yes First/Initial COVID19 Vaccinat: DECEMBER Second COVID19 Vaccination Alex: January COVID19 Vaccination Date: JUL Seasonal Allergies Seasonal Allergies: Yes Past Medical History Surgery/Hospitalization HX: Hx seizure disorder. R kidney removed, T/A, HTN, HIGH CHOLESTEROL, HEADACHES, PCOS, ANXIETY/DEPRESSION, PREDIABETIC Surgeries: Yes Adenoidectomy, Ear Surgery, Nephrectomy, Renal, Tonsillectomy Respiratory: No Cardiac: Yes Heart Murmur, High Cholesterol, Hypertension, Irregular Heartbeat Neurological: Yes Headaches /Migraines, Seizure Disorder Last Menstrual Period: May 18, 2022 Reproductive Disorders: No Female Reproductive Disorders: Polycystic Ovarian Dis Genitourinary: Yes (only one kidney) Bladder Infection Gastrointestinal: No Musculoskeletal: No Endocrine: Yes (PCOS; MORBID OBESITY) HEENT: Yes (S/P BMT'S; DECREASED HEARING IN BOTH EAR;BENIGN TUMOR-ROOF OF MOUTH REMOVED) Chronic Ear Infection Hearing Impairment: Hard of Hearing Cancer: No Psychosocial: Yes Anxiety, Depression Integumentary: Yes (skin issues on lt leg) Blood Disorders: No Family Medical History No Pertinent Family Hx SOCIAL HISTORY: -ETOH--OCCASIONAL USE -DRUGS--DENIES USE -SMOKING--QUIT 2011 ADDITIONAL PAST MEDICAL HISTORY: HAD SEIZURES CHILD AND WAS ON MEDICATIONS UNTIL AGE 10; NO SEIZURES FOR YEARS, THEN STARTED HAVING SEIZURES AGAIN 10/2017, AND HAS BEEN BACK ON SEIZURE MEDICATIONS SINCE THEN. THEY POSSIBLY HAVE BEEN RELATED TO MIGRAINES, BUT ON PREVIOUS ER VISITS, THE SEIZURES HAVE BEEN ALL SELF-REPORTED AND NONE HAVE EVER BEEN WITNESSED AND PT HAS NEVER HAD AN EEG PAST SURGICAL HISTORY: -BMT'S -REMOVAL OF BENIGN TUMOR FROM ROOF OF MOUTH -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 -TONSILLECTOMY AND ADENOIDECTOMY Physical Exam Vital Signs Vital Signs - First Documented 05/22/22 07:06 Temp 36.8 Pulse 83 Resp 18 B/P (MAP) 144/82 (102) Pulse Ox 96 O2 Delivery Room Air Capillary Refill : Less Than 3 Seconds Height, Weight, BMI Height: 5'5.00" Weight: 260lbs. 0oz. 117.782975nc; 52.00 BMI Method:Actual General Appearance: No Apparent Distress, Obese HEENT: PERRL/EOMI, Pharynx Normal; No Moist Mucous Membranes (Dry oral mucosa) Neck: Full Range of Motion, Normal Inspection, Non Tender, Supple Cardiovascular: Regular Rate, Rhythm, No Edema, Normal Peripheral Pulses Respiratory: Lungs Clear, Normal Breath Sounds, No Accessory Muscle Use, No Respiratory Distress Gastrointestinal: Normal Bowel Sounds, No Organomegaly, Non Tender, Soft Extremities: Normal Capillary Refill, Normal Inspection, No Pedal Edema Neurologic/Psychiatric: Alert, Oriented x3 Cranial Nerves: Normal Hearing, Normal Speech Skin: Normal Color, Warm/Dry Progress/Results/Core Measures Results/Orders Lab Results Laboratory Tests Test 05/22/22 07:13 05/22/22 07:30 05/22/22 07:34 Range/Units Urine Color RED H Urine Clarity CLOUDY Urine pH 5.0 5-9 Urine Specific [place] 1.025 H 1.016-1.022 Urine Protein 3+ H NEGATIVE Urine Glucose (UA) NEGATIVE NEGATIVE Urine Ketones 1+ H NEGATIVE Urine Nitrite POSITIVE H NEGATIVE Urine Bilirubin NEGATIVE NEGATIVE Urine Urobilinogen 2.0 < = 1.0 MG/DL Urine Leukocyte Esterase 2+ H NEGATIVE Urine RBC (Auto) 3+ H NEGATIVE Urine RBC TNTC H /HPF Urine WBC 5-10 H /HPF Urine Squamous Epithelial Cells 2-5 /HPF Urine Crystals NONE /LPF Urine Bacteria FEW H /HPF Urine Casts NONE /LPF Urine Mucus NEGATIVE /LPF Urine Culture Indicated YES White Blood Count 7.3 4.3-11.0 10^3/uL Red Blood Count 4.90 3.80-5.11 10^6/uL Hemoglobin 13.3 11.5-16.0 g/dL Hematocrit 40 35-52 % Mean Corpuscular Volume 81 80-99 fL Mean Corpuscular Hemoglobin 27 25-34 pg Mean Corpuscular Hemoglobin Concent 33 32-36 g/dL Red Cell Distribution Width 14.6 H 10.0-14.5 % Platelet Count 349 130-400 10^3/uL Mean Platelet Volume 10.2 9.0-12.2 fL Immature Granulocyte % (Auto) 1 % Neutrophils (%) (Auto) 63 42-75 % Lymphocytes (%) (Auto) 27 12-44 % Monocytes (%) (Auto) 8 0-12 % Eosinophils (%) (Auto) 0 0-10 % Basophils (%) (Auto) 1 0-10 % Neutrophils # (Auto) 4.6 1.8-7.8 10^3/uL Lymphocytes # (Auto) 2.0 1.0-4.0 10^3/uL Monocytes # (Auto) 0.6 0.0-1.0 10^3/uL Eosinophils # (Auto) 0.0 0.0-0.3 10^3/uL Basophils # (Auto) 0.1 0.0-0.1 10^3/uL Immature Granulocyte # (Auto) 0.1 0.0-0.1 10^3/uL Sodium Level 137 135-145 MMOL/L Potassium Level 3.7 3.6-5.0 MMOL/L Chloride Level 102 98-107 MMOL/L Carbon Dioxide Level 23 21-32 MMOL/L Anion Gap 12 5-14 MMOL/L Blood Urea Nitrogen 9 7-18 MG/DL Creatinine 0.76 0.60-1.30 MG/DL Estimat Glomerular Filtration Rate 109 BUN/Creatinine Ratio 12 Glucose Level 114 H 70-105 MG/DL Calcium Level 9.4 8.5-10.1 MG/DL Corrected Calcium 8.5-10.1 MG/DL Magnesium Level 1.7 1.6-2.4 MG/DL Total Bilirubin 0.3 0.1-1.0 MG/DL Aspartate Amino Transf (AST/SGOT) 29 5-34 U/L Alanine Aminotransferase (ALT/SGPT) 39 0-55 U/L Alkaline Phosphatase 63 40-136 U/L Total Protein 7.5 6.4-8.2 GM/DL Albumin 4.6 H 3.2-4.5 GM/DL Glucometer 108 70-110 MG/DL My Orders Orders - HAMMAD ROACH Ekg Tracing (05/22/22 06:57) Continuous Ekg Monitoring (05/22/22 06:57) Orthostatic Vital Signs (Adult (05/22/22 06:57) Ua Culture If Indicated (05/22/22 06:57) Urine Bedside (05/22/22 06:57) Urine Culture (05/22/22 07:13) Accucheck Stat ONCE (05/22/22 07:47) Cbc With Automated Diff (05/22/22 07:58) Comprehensive Metabolic Panel (05/22/22 07:58) Magnesium (05/22/22 07:58) Ct Abd/Pelvis Wo(Kidney Stone) (05/22/22 08:26) Ketorolac Injection (Toradol Injection) (05/22/22 09:15) Medications Given in ED Current Medications Medications Dose Ordered Sig/Kayode Route Start Time Stop Time Status Last Admin Dose Admin Ketorolac Tromethamine 30 mg ONCE ONCE IVP 05/22/22 09:15 05/22/22 09:16 DC 8/3/22 09:13 30 MG Vital Signs/I&O 05/22/22 05/22/22 07:06 07:43 Temp 36.8 Pulse 83 78 89 81 Resp 18 B/P (MAP) 144/82 (102) 159/91 (113) 134/75 (94) 148/70 (96) Pulse Ox 96 O2 Delivery Room Air Blood Pressure Mean: 96 FSBG Bedside Testing Finger Stick Blood Glucose: 108 Blood Glucose Action Taken: PROVIDER NOTIFIED. Progress Progress Note #1: Time: 08:10 Progress Note Syncope work-up. Sounds vasovagal. Orthostatic vital signs are unremarkable. EKG unremarkable. She is complaining of back pain and has blood in her urine. Could be masking a UTI or even a kidney stone although she does not appear acutely uncomfortable. Will offer her a CT without IV contrast of her abdomen/pelvis. Toradol for her back pain. Progress Note #2: Time: 11:06 Progress Note The patient's pain is improved after the Toradol. Her fluids are in she is havi ng no significant orthostatic changes. Suspect she is having some vasovagal/orthostatic hypotension/syncope related to dehydration. Her urine is concentrated and with ketones. After the fluids she should do better. We will have her follow-up in 1 to 2 weeks with her primary care provider if she is not doing better. Muscle relaxants and counseled expectations Initial ECG Impression Date: May 22, 2022 Initial ECG Impression Time: 07:25 Initial ECG Rate: 77 Initial ECG Rhythm: Normal Sinus Initial ECG Intervals: Normal Initial ECG Impression: Normal Comment Normal sinus rhythm without clinically relevant ST elevation or depression. Diagnostic Imaging Diagonstic Imaging: CT Plain Films/CT/US/NM/MRI: abdomen, pelvis Comments [facility]ocialDefender [facility] [place], [place] NAME: SAYDA JASSO [facility] REC#: [id number] PT STATUS: REG ER : 1995 PHYSICIAN: HAMMAD ROACH MD ADMIT DATE: 05/22/22/ER Draft Date of Exam:05/22/22 CT ABD/PELVIS WO(KIDNEY STONE) PROCEDURE: CT urinary tract, rule out kidney stone. TECHNIQUE: Multiple contiguous axial images were obtained through the abdomen and pelvis without the use of intravenous contrast. Auto Exposure Controls were utilized during the CT exam to meet ALARA standards for radiation dose reduction. INDICATION: Flank pain. Patient has had prior right nephrectomy. COMPARISON: Correlation is made with the prior CT from 06/11/2021. FINDINGS: The lung bases are clear. The liver is enlarged at 23 cm. There is diffuse low-attenuation throughout the liver, consistent with hepatic steatosis. No mass is detected. The gallbladder is unremarkable. There is no biliary ductal dilatation. The pancreas and spleen are unremarkable. No adrenal mass is detected. The right kidney again appears to show severe atrophy. Tiny cysts in the right kidney are similar to the prior exam. The left kidney is without calculus or hydronephrosis. No ureteral calculi are detected. No bladder calculi are detected. The aorta is nonaneurysmal. The small and large bowel loops appear to be normal in caliber. No obstructive pattern is identified. The appendix is unremarkable. There is no free fluid or fluid collection. The uterus and ovaries are unremarkable. No inflammatory changes are detected. IMPRESSION: 1. Hepatomegaly and hepatic steatosis. 2. Severe right renal atrophy. 3. No acute feature in the abdomen or pelvis is identified. Dictated on workstation # [id number] Dict: 05/22/22 0938 Trans: 05/22/22 0947 [id number] Interpreted by: KARYN AGUILAR MD Electronically signed by: Reviewed: Reviewed by Me Departure Impression Primary Impression: Syncope Qualified Codes: R55 - Syncope and collapse Additional Impressions: Vasovagal syncope Dehydration Disposition: 01 HOME, SELF-CARE Condition: Stable Departure-Patient Inst. Decision time for Depature: 11:07 Referrals: KEYANA PRIETO DO (PCP/Family) Primary Care Physician Patient Instructions: Vasovagal Response (DC), Dehydration, Adult ED Add. Discharge Instructions: Drink lots of fluids, sports drinks are encouraged. Follow-up in 1 to 2 weeks with your primary care doctor if things or not improving. Your pain in your back should improve over the next 1 to 2 weeks. Topical cream such as icy hot, Biofreeze etc. Judicial applications of heat and ice as needed for pain in your back. Topical patches can be helpful. Tylenol 1000 mg every 8 hours needed for pain. 800 mg ibuprofen every 8 hours as needed for pain. Cyclobenzaprine 1/2 to 1 tablet every 8 hours as needed for muscle spasms in your back. Will cause drowsiness All discharge instructions reviewed with patient and/or family. Voiced understanding. Scripts Cyclobenzaprine HCl (Cyclobenzaprine HCl) 10 Mg Tablet 10 MG PO Q8H PRN for SPASMS, #15 TAB 0 Refills Prov: HAMMAD ROACH 05/22/22 Copy Copies To 1: KEYANA PRIETO V DO HAMMAD ROACH May 22, 2022 08:10
[2022-05-22 08:11] LABS: CALCIUM 9.4 MG/DL (8.5-10.1)
[2022-05-22 08:13] LABS: GLUCOSE 114 MG/DL (70-105); TOTAL PROTEIN 7.5 GM/DL (6.4-8.2)
[2022-05-22 08:14] LABS: BILIRUBIN,TOTAL 0.3 MG/DL (0.1-1.0); CARBON DIOXIDE 23 MMOL/L (21-32)
[2022-05-22 08:16] LABS: ALKALINE PHOSPHATASE 63 U/L (40-136); CREATININE SERUM 0.76 MG/DL (0.60-1.30); GFR ESTIMATED 109
[2022-05-22 08:17] LABS: BUN/CREATININE RATIO 12
[2022-05-22 08:19] LABS: ALANINE AMINOTRANSFERASE 39 U/L (0-55)
[2022-05-22 08:20] LABS: MAGNESIUM 1.7 MG/DL (1.6-2.4)
[2022-05-22] MEDS ORDERED: KETOROLAC 30 MG/ML VIAL IVP ONE (09:15)
--- NOTE | 2022-05-22 09:47 | Diagnostic Imaging Report ---
PROCEDURE: CT urinary tract, rule out kidney stone. TECHNIQUE: Multiple contiguous axial images were obtained through the abdomen and pelvis without the use of intravenous contrast. Auto Exposure Controls were utilized during the CT exam to meet ALARA standards for radiation dose reduction. INDICATION: Flank pain. Patient has had prior right nephrectomy. COMPARISON: Correlation is made with the prior CT from 06/11/2021. FINDINGS: The lung bases are clear. The liver is enlarged at 23 cm. There is diffuse low-attenuation throughout the liver, consistent with hepatic steatosis. No mass is detected. The gallbladder is unremarkable. There is no biliary ductal dilatation. The pancreas and spleen are unremarkable. No adrenal mass is detected. The right kidney again appears to show severe atrophy. Tiny cysts in the right kidney are similar to the prior exam. The left kidney is without calculus or hydronephrosis. No ureteral calculi are detected. No bladder calculi are detected. The aorta is nonaneurysmal. The small and large bowel loops appear to be normal in caliber. No obstructive pattern is identified. The appendix is unremarkable. There is no free fluid or fluid collection. The uterus and ovaries are unremarkable. No inflammatory changes are detected. IMPRESSION: 1. Hepatomegaly and hepatic steatosis. 2. Severe right renal atrophy. 3. No acute feature in the abdomen or pelvis is identified. Dictated by: Dictated on workstation # [id number]
[2022-05-22] MEDS ORDERED: CYCL10TA25 PO (11:08)
[2022-05-22 11:26] VITALS: BP 151/92
== END 2022-05-22 11:26 | disposition home or self-care (01) ==
LOC: EDUNIT# 06:51 → ER 06:55
DX: R55 Syncope and collapse (principal); E86.0 Dehydration; R82.4 Acetonuria; M54.50 Low back pain, unspecified; E66.01 Morbid (severe) obesity due to excess calories; Z68.43 Body mass index [BMI] 50.0-59.9, adult; W19.XXXA Unspecified fall, initial encounter
CPT/HCPCS: 36415; 74176; 80053; 81000; 82947; 83735; 84703; 85025; 87088; 93005

== ENCOUNTER 2022-05-30 16:37 | Emergency (ER) | payer MEDICAID ==
[~2022-05-30] VITALS: Ht 165.1 cm; Wt 142.0 kg
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
[2022-05-30] MEDS ORDERED: KETOROLAC 30 MG/ML VIAL IVP ONE (17:00)
[2022-05-30 17:05] LABS: BASOPHILS # (AUTO) 0.1 10^3/uL (0.0-0.1); BASOPHILS % (AUTO) 1 % (0-10); EOSINOPHILS % (AUTO) 0 % (0-10); HEMATOCRIT 39 % (35-52); HEMOGLOBIN 12.7 g/dL (11.5-16.0); LYMPHOCYTES # (AUTO) 1.8 10^3/uL (1.0-4.0); LYMPHOCYTES % (AUTO) 21 % (12-44); MEAN CORPUSCULAR HEMOGLOBIN 28 pg (25-34); MEAN CORPUSCULAR HGB CONC 33 g/dL (32-36); MEAN CORPUSCULAR VOLUME 84 fL (80-99); MEAN PLATELET VOLUME 9.8 fL (9.0-12.2); MONOCYTES # (AUTO) 0.6 10^3/uL (0.0-1.0); MONOCYTES % (AUTO) 7 % (0-12); NEUTROPHILS # (AUTO) 6.1 10^3/uL (1.8-7.8); NEUTROPHILS % (AUTO) 71 % (42-75); PLATELET COUNT 351 10^3/uL (130-400); WHITE BLOOD COUNT 8.7 10^3/uL (4.3-11.0)
[2022-05-30 17:09] LABS: BILIRUBIN,URINE NEGATIVE (NEGATIVE); CLARITY,URINE CLEAR; COLOR,URINE YELLOW; GLUCOSE, URINE (UA) NEGATIVE (NEGATIVE); KETONES,URINE NEGATIVE (NEGATIVE); LEUKOCYTE ESTERASE ,URINE 2+ (NEGATIVE); NITRITE,URINE NEGATIVE (NEGATIVE); PH,URINE 5.5 (5-9); PROTEIN,URINE NEGATIVE (NEGATIVE)
[2022-05-30 17:16] LABS: ALBUMIN 4.3 GM/DL (3.2-4.5); BILIRUBIN,TOTAL 0.2 MG/DL (0.1-1.0); CALCIUM 9.7 MG/DL (8.5-10.1); CREATININE SERUM 0.74 MG/DL (0.60-1.30); POTASSIUM 4.4 MMOL/L (3.6-5.0); TOTAL PROTEIN 7.3 GM/DL (6.4-8.2)
[2022-05-30 17:31] LABS: BACTERIA,URINE FEW /HPF
[2022-05-30] MEDS ORDERED: NITR-65 PO (19:07)
[2022-05-30 19:14] VITALS: BP 152/81
== END 2022-05-30 19:14 | disposition home or self-care (01) ==
LOC: EDUNIT# 16:37 → ER 16:38
DX: G40.909 Epilepsy, unspecified, not intractable, without status epilepticus (principal); Z79.899 Other long term (current) drug therapy; E66.01 Morbid (severe) obesity due to excess calories; Z68.43 Body mass index [BMI] 50.0-59.9, adult
CPT/HCPCS: 36415; 80053; 81000; 84703; 85025; 87077; 87088; 99282

== ENCOUNTER 2022-06-12 20:31 | Emergency (ER) | payer MEDICAID ==
[~2022-06-12] VITALS: Ht 165 cm; Wt 135.0 kg
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
== END 2022-06-12 21:31 | disposition home or self-care (01) ==
LOC: EDUNIT# 20:31 → ER 20:32
DX: G40.909 Epilepsy, unspecified, not intractable, without status epilepticus (principal); U07.1 COVID-19; E66.01 Morbid (severe) obesity due to excess calories; Z87.891 Personal history of nicotine dependence; Z68.43 Body mass index [BMI] 50.0-59.9, adult; Z73.0 Burn-out
CPT/HCPCS: 99281

== ENCOUNTER 2022-06-23 16:01 | Emergency (ER) | payer MEDICAID ==
[~2022-06-23] VITALS: Ht 165.1 cm; Wt 138.7 kg
--- NOTE | 2022-06-23 17:00 | ED General ---
General Chief Complaint: Dizziness/Syncope Stated Complaint: POSS SEIZURE/SYNCOPAL EPISODE Nursing Triage Note: PT TO RM 6 WITH CC OF SYNCOPE AND OR POSSIBLE SEIZURE TYPE ACTIVITY SINCE 06/19/22. PT WAS SEEN AT PCP OFFICE WHERE LAB WORK WAS DRAWN. PT REPORTS LABS NORMAL. PT SEEN AT [facility] TODAY AND WAS INSTRUCTED TO COME TO ED FOR EVALUATION. PT STATES HEAVY PERIOD THIS WEEK. PT STATES SHE IS UNSURE IF SHE HIT HER HEAD AND COMPLAINS OF ORTIZ. PT [id number]&[id number] Source of Information: Patient Exam Limitations: No Limitations (HERMILO AREVALO A MED STUDENT) History of Present Illness Date Seen by Provider: Jun 23, 2022 Time Seen by Provider: 04:30 Initial Comments Lina William is a 26 yo female who presents for possible syncopal episode or seizure. Pt has hx of seizure d/o on keppra and trileptal. Pt reports her sxs started on friday when she had an episode where she passed out and woke up not remembering anything. Pt reports she hit her head and hurt her right ankle. She no longer has ankle pain, but she does have a headache and the back of her head is tender. Pt reports loss of bowel and bladder control during these episodes. She also has lower back and leg numbness. Pt reports after the episode on Friday she sought medical care at [facility] walk in clinic and labs were done which were "normal". Pt states since then she has been having one to two of these episodes daily. One was witnessed by her father and the other by her fiance, though they are not present currently to account for what happened before, during or after these episodes. Pt reports they told her it seemed as if she just passed out and then had some twitching. Pt states today she went back to [facility] walk in because of heavy menstrual bleeding. Pt reports hx of heavy periods, but this one was heavier than usual. Pt reports she was told to come to the ED with hx of possible syncopal episodes and heavy bleeding. Pt states she has had increased stress recently, which could precipitate these episodes. She denies ETOH, drug, tobacco use. Pt sees Dr. Prieto at [facility] on 07/[address] Sheyla Marquez(Neurologist at ) in July. Pt is in the process of getting an EEG scheduled. Of note pt had COVID infection 2 weeks ago, but has been asymptomatic. Will order CBC to r/o anemia as cause of syncope. Will order blood glucose to r/o hyper or hypoglycemia. Will get urine test. Timing/Duration: 4-5 Days Associated Systoms: Syncope (HERMILO AREVALO MED STUDENT) Allergies and Home Medications Allergies Coded Allergies: cephalexin (Verified Allergy, Severe, soa, 07/13/20) topiramate (Unverified Allergy, Intermediate, 04/30/21) hives naproxen (Verified Allergy, Mild, 06/23/22) amoxicillin (Verified Allergy, Unknown, 04/06/19) carbamazepine (Verified Allergy, Unknown, 04/06/19) shellfish derived (Verified Allergy, Unknown, 07/20/19) Penicillins (Unverified Adverse Reaction, Intermediate, 04/06/19) Sulfa (Sulfonamide Antibiotics) (Unverified Adverse Reaction, Intermediate, 04/06/19) Patient Home Medication List Home Medication List Reviewed: Yes (OLMAN ISABEL MD) Albuterol Sulfate (Proair Hfa) 1 Puff Puff, 2 PUFF IH Q4H Prescribed by: BENEDICTO MARTÍNEZ MD on 02/06/22 0231 Butalb/Acetaminophen/Caffeine (Esgic Capsule) 1 Each Capsule, 2 EACH PO Q6H PRN for headache Prescribed by: CELIA HUGHES on 12/17/19 1631 Cefuroxime Axetil (Cefuroxime) 250 Mg Tablet, 250 MG PO BID Prescribed by: CELIA HUGHES on 07/28/21 1913 Clindamycin HCl (Clindamycin HCl) 300 Mg Capsule, 300 MG PO TID Prescribed by: STEF NAVAS on 08/15/20 1646 Cyclobenzaprine HCl (Cyclobenzaprine HCl) 10 Mg Tablet, 10 MG PO Q8H PRN for SPASMS Prescribed by: SHAQ OLSEN on 01/15/21 0025 Cyclobenzaprine HCl (Cyclobenzaprine HCl) 10 Mg Tablet, 10 MG PO Q8H PRN for SPASMS Prescribed by: HAMMAD ROACH on 05/22/22 1108 Doxycycline Hyclate (Doxycycline Hyclate) 100 Mg Tablet, 100 MG PO BID Prescribed by: CELIA HUGHES on 12/08/21 193 Erythromycin Base (Erythromycin Opthalmic Ointment) 5 Mg/Gram (0.5 %) Oint...g., 0 OP Q4H Prescribed by: OLMAN ISABEL on 03/20/22 1121 Fluoxetine HCl (Prozac) 20 Mg Capsule, Unknown Dose PO, (Reported) Entered as Reported by: FATOUMATA LIN on 09/01/19 0445 Hydroxyzine Pamoate (Vistaril) 25 Mg Capsule, Unknown Dose PO, (Reported) Entered as Reported by: FATOUMATA LIN on 09/01/19 0445 Levetiracetam (Keppra) 1,000 Mg Tablet, 1,000 MG PO TID, (Reported) Entered as Reported by: GRISELDA MARTINEZ on 07/15/19 1659 Medroxyprogesterone Acetate (Provera) 10 Mg Tablet, 10 MG PO DAILY Prescribed by: STEF NAVAS on 08/15/20 1647 Metformin HCl (Metformin HCl) 500 Mg Tablet, 500 MG PO BID Prescribed by: CELIA HUGHES on 07/28/21 1837 Mometasone Furoate (Mometasone Furoate) 45 Gm Cream..g., 45 GM TP TID Prescribed by: SHAQ OLSEN on 03/10/20 0232 Nitrofurantoin Macrocrystal (Nitrofurantoin) 100 Mg Capsule, 100 MG PO BID Prescribed by: STEF NAVAS on 07/02/21 2101 Nitrofurantoin Monohyd/M-Cryst (Macrobid 100 mg Capsule) 100 Mg Capsule, 1 TAB PO BID Prescribed by: SHAQ OLSEN on 06/11/21 0207 Nitrofurantoin Monohyd/M-Cryst (Macrobid 100 mg Capsule) 100 Mg Capsule, 1 TAB PO BID Prescribed by: TRUDY CURRIE on 05/30/22 1907 Ofloxacin (Floxin (Non-Formulary)) 5 Ml Drops, 3 DROPS RIGHT EAR BID Prescribed by: CELIA HUGHES on 07/05/20 1426 Ondansetron (Ondansetron Odt) 4 Mg Tab.rapdis, 4 MG PO Q6H PRN for NAUSEA/VOMITING Prescribed by: HAMMAD ROACH on 04/30/21 1134 Prednisone (Prednisone) 20 Mg Tab, 40 MG PO DAILY Prescribed by: SHAQ OLSEN on 03/10/20 0232 Prednisone (Prednisone) 50 Mg Tab, 50 MG PO DAILY Prescribed by: BENEDICTO MARTÍNEZ MD on 02/06/22 0231 Review of Systems Review of Systems Constitutional: No chills, No fever EENTM: blurred vision; No vision loss Respiratory: No cough, No short of breath Cardiovascular: No chest pain, No palpitations Gastrointestinal: No abdominal pain, No constipation, No nausea, No vomiting Genitourinary: No dysuria, No frequency Musculoskeletal: No back pain; neck pain Skin: No lesions, No lumps, No rash Psychiatric/Neurological: Emotional Problems (increased stress), Headache; Denies Numbness, Denies Weakness Hematologic/Lymphatic: No Symptoms Reported Immunological/Allergic: no symptoms reported (HERMILO AREVALO) Past Ijwxsoz-Dgxaxz-Rzjxcb Hx Patient Social History Tobacco Use?: No Substance use?: No Alcohol Use?: No Pt feels they are or have been: No (HERMILO AREVALO) Immunizations Up To Date Tetanus Booster (TDap): Less than 5yrs PED Vaccines UTD: Yes First/Initial COVID19 Vaccinat: December COVID19 Vaccination Alex: January COVID19 Vaccination Date: JUL (HERMILO AREVALO STUDENT) Seasonal Allergies Seasonal Allergies: Yes (HERMILO AREVALO) Past Medical History Surgery/Hospitalization HX: Hx seizure disorder. R kidney removed, T/A, HTN, HIGH CHOLESTEROL, HEADACHES, PCOS, ANXIETY/DEPRESSION, PREDIABETIC Surgeries: Yes Adenoidectomy, Ear Surgery, Nephrectomy, Renal, Tonsillectomy Respiratory: No Cardiac: Yes Heart Murmur, High Cholesterol, Hypertension, Irregular Heartbeat Neurological: Yes Headaches /Migraines, Seizure Disorder Reproductive Disorders: No Female Reproductive Disorders: Polycystic Ovarian Dis Genitourinary: Yes (only one kidney) Bladder Infection Gastrointestinal: No Musculoskeletal: No Endocrine: Yes (PCOS; MORBID OBESITY) HEENT: Yes (S/P BMT'S; DECREASED HEARING IN BOTH EAR;BENIGN TUMOR-ROOF OF MOUTH REMOVED) Chronic Ear Infection Hearing Impairment: Hard of Hearing Cancer: No Psychosocial: Yes Anxiety, Depression Integumentary: Yes (skin issues on lt leg) Blood Disorders: No (HERMILO AREVALO STUDENT) Family Medical History No Pertinent Family Hx SOCIAL HISTORY: -ETOH--OCCASIONAL USE -DRUGS--DENIES USE -SMOKING--QUIT 2011 ADDITIONAL PAST MEDICAL HISTORY: HAD SEIZURES CHILD AND WAS ON MEDICATIONS UNTIL AGE 10; NO SEIZURES FOR YEARS, THEN STARTED HAVING SEIZURES AGAIN 10/2017, AND HAS BEEN BACK ON SEIZURE MEDICATIONS SINCE THEN. THEY POSSIBLY HAVE BEEN RELATED TO MIGRAINES, BUT ON PREVIOUS ER VISITS, THE SEIZURES HAVE BEEN ALL SELF-REPORTED AND NONE HAVE EVER BEEN WITNESSED AND PT HAS NEVER HAD AN EEG PAST SURGICAL HISTORY: -BMT'S -REMOVAL OF BENIGN TUMOR FROM ROOF OF MOUTH -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 -TONSILLECTOMY AND ADENOIDECTOMY (HERMILO AREVALO MED STUDENT) Physical Exam Vital Signs Vital Signs - First Documented 06/23/22 16:09 Temp 36.9 Pulse 100 Resp 12 B/P (MAP) 125/91 (102) Pulse Ox 95 O2 Delivery Room Air (OLMAN ISABEL MD) Vital Signs Capillary Refill : Less Than 3 Seconds (HERMILO AREVALO MED STUDENT) Height, Weight, BMI Height: 5'5.00" Weight: 260lbs. 0oz. [id number]; 50.00 BMI Method:Actual General Appearance: No Apparent Distress, WD/WN HEENT: PERRL/EOMI, Pharynx Normal Neck: Full Range of Motion, Tender Lateral (knot on right skull base that is tender to palpation) Respiratory: Chest Non Tender, Lungs Clear Cardiovascular: Regular Rate, Rhythm, No Murmur Gastrointestinal: Normal Bowel Sounds, Non Tender, Soft Back: Normal Inspection, No Vertebral Tenderness Extremity: Normal Range of Motion, Pedal Edema (mild pitting edema) Neurologic/Psychiatric: Alert, Oriented x3, Depressed Affect Skin: Normal Color, Warm/Dry Lymphatic: No Adenopathy (HERMILO AREVALO MED STUDENT) Progress/Results/Core Measures Suspected Sepsis SIRS Temperature: Pulse: 100 Respiratory Rate: 12 Blood Pressure 125 /91 Mean: 102 (HERMILO AREVALO MED STUDENT) Results/Orders Lab Results Laboratory Tests Test 06/23/22 17:10 Range/Units White Blood Count 6.9 4.3-11.0 10^3/uL Red Blood Count 4.81 3.80-5.11 10^6/uL Hemoglobin 13.0 11.5-16.0 g/dL Hematocrit 40 35-52 % Mean Corpuscular Volume 83 80-99 fL Mean Corpuscular Hemoglobin 27 25-34 pg Mean Corpuscular Hemoglobin Concent 33 32-36 g/dL Red Cell Distribution Width 14.7 H 10.0-14.5 % Platelet Count 316 130-400 10^3/uL Mean Platelet Volume 9.7 9.0-12.2 fL Immature Granulocyte % (Auto) 2 % Neutrophils (%) (Auto) 68 42-75 % Lymphocytes (%) (Auto) 22 12-44 % Monocytes (%) (Auto) 8 0-12 % Eosinophils (%) (Auto) 0 0-10 % Basophils (%) (Auto) 1 0-10 % Neutrophils # (Auto) 4.7 1.8-7.8 10^3/uL Lymphocytes # (Auto) 1.5 1.0-4.0 10^3/uL Monocytes # (Auto) 0.5 0.0-1.0 10^3/uL Eosinophils # (Auto) 0.0 0.0-0.3 10^3/uL Basophils # (Auto) 0.1 0.0-0.1 10^3/uL Immature Granulocyte # (Auto) 0.1 0.0-0.1 10^3/uL Glucometer 82 70-110 MG/DL Serum Test, Qualitative NEGATIVE NEGATIVE (OLMAN ISABEL MD) My Orders Orders - OLMAN ISABEL MD Cbc With Automated Diff (06/23/22 16:54) Hcg,Qualitative Serum (06/23/22 16:54) Accucheck Stat ONCE (06/23/22 17:06) (OLMAN ISABEL MD) Vital Signs/I&O 06/23/22 06/23/22 16:09 18:01 Temp 36.9 Pulse 100 88 Resp 12 12 B/P (MAP) 125/91 (102) 125/91 Pulse Ox 95 95 O2 Delivery Room Air Room Air (OLMAN ISABEL MD) Vital Signs/I&O Capillary Refill : Less Than 3 Seconds (HERMILO AREVALO MED STUDENT) Blood Pressure Mean: 102 Progress Note : Time: 17:32 Progress Note Tati is a 26-year-old female who presents to the emergency department she states at the direction of [facility] for repeated syncopal versus seizure episodes over the last several days. She started having heavy menstrual cycle today, her cycle actually started last week. She states she has been through at least 10 pads today. She had 2 episodes where she went "face first" onto a couch and onto a bed. At 1 point in the last several days she did hit the right side of her head during 1 of these episodes. No current nausea or vomiting. No chest pain or shortness of breath. No dysuria urgency or frequency. She is on oral control. No recent f/c or URI sx. mild "headache" right posterior occipital. She states she has follow up with her PCP 07/01 and neurologist in on . Exam today pertinent for some tenderness to the right occipital scalp with some linear swelling - no overlying erythema. rest of HEENT exam unremarkable. Otherwise exam unremarkable. PLan to check accu check, CBC and hcg, Anticipate d/c to home to resume home meds and keep follow up. She is drinking water now. (OLMAN ISABEL MD) Departure Impression Primary Impression: History of seizure Additional Impression: Menorrhagia Qualified Codes: N92.0 - Excessive and frequent menstruation with regular cycle Disposition: HOME, SELF-CARE Condition: Stable Departure-Patient Inst. Decision time for Depature: 17:37 (OLMAN ISABEL MD) Referrals: KEYANA PRIETO DO (PCP/Family) Primary Care Physician Patient Instructions: Syncope (Fainting) (DC) Add. Discharge Instructions: Keep taking your home medications as prescribed. Drink fluids and take vitamins for good nutrition and hydration. Naproxen (alleve) can help slow down your abnormal vaginal bleeding. If the bleeding continues another 1-2 weeks without stopping - you will need further follow up with Gynecology. Return to the Emergency Department for any new, concerning or emergent complaints. Verification and Attestation of Medical Student E/M Service A medical student performed and documented this service in my presence. I reviewed and verified all information documented by the medical student and made modifications to such information, when appropriate. I personally performed the physical exam and medical decision making. Olman Isabel, Jun 23, 2022,17:31 (OLMAN ISABEL MD) HERMILO AREVALO MED STUDENT Jun 23, 2022 16:59 OLMAN ISABEL MD Jun 23, 2022 17:33
[2022-06-23 17:20] LABS: BASOPHILS # (AUTO) 0.1 10^3/uL (0.0-0.1); BASOPHILS % (AUTO) 1 % (0-10); EOSINOPHILS % (AUTO) 0 % (0-10); HEMATOCRIT 40 % (35-52); LYMPHOCYTES # (AUTO) 1.5 10^3/uL (1.0-4.0); LYMPHOCYTES % (AUTO) 22 % (12-44); MEAN CORPUSCULAR HEMOGLOBIN 27 pg (25-34); MEAN CORPUSCULAR HGB CONC 33 g/dL (32-36); MEAN CORPUSCULAR VOLUME 83 fL (80-99); MEAN PLATELET VOLUME 9.7 fL (9.0-12.2); MONOCYTES # (AUTO) 0.5 10^3/uL (0.0-1.0); MONOCYTES % (AUTO) 8 % (0-12); NEUTROPHILS # (AUTO) 4.7 10^3/uL (1.8-7.8); NEUTROPHILS % (AUTO) 68 % (42-75); PLATELET COUNT 316 10^3/uL (130-400); WHITE BLOOD COUNT 6.9 10^3/uL (4.3-11.0)
[2022-06-23 18:01] VITALS: BP 125/91
== END 2022-06-23 18:01 | disposition home or self-care (01) ==
LOC: EDUNIT# 16:01 → ER 16:05
DX: N92.0 Excessive and frequent menstruation with regular cycle (principal); E66.01 Morbid (severe) obesity due to excess calories; Z86.69 Personal history of other diseases of the nervous system and sense organs; Z87.891 Personal history of nicotine dependence; Z68.43 Body mass index [BMI] 50.0-59.9, adult; Z32.02 Encounter for pregnancy test, result negative
CPT/HCPCS: 36415; 82947; 84703; 85025

== ENCOUNTER 2022-07-21 19:47 | Emergency (ER) | payer MEDICAID ==
[~2022-07-21] VITALS: Ht 166 cm; Wt 139.0 kg
[2022-07-21] MEDS ORDERED: LACTATED RINGERS 1,000 ML IV ONE (20:00)
[2022-07-21] MEDS ORDERED: ONDANSETRON 4 MG/2 ML (SDV) Z0FRAN IVP ONE (20:00)
[2022-07-21 20:08] LABS: BASOPHILS % (AUTO) 0 % (0-10); EOSINOPHILS % (AUTO) 0 % (0-10); HEMATOCRIT 40 % (35-52); HEMOGLOBIN 12.8 g/dL (11.5-16.0); LYMPHOCYTES # (AUTO) 1.3 10^3/uL (1.0-4.0); LYMPHOCYTES % (AUTO) 18 % (12-44); MEAN CORPUSCULAR HEMOGLOBIN 27 pg (25-34); MEAN CORPUSCULAR HGB CONC 32 g/dL (32-36); MEAN CORPUSCULAR VOLUME 84 fL (80-99); MEAN PLATELET VOLUME 10.3 fL (9.0-12.2); MONOCYTES # (AUTO) 0.7 10^3/uL (0.0-1.0); MONOCYTES % (AUTO) 10 % (0-12); NEUTROPHILS # (AUTO) 5.1 10^3/uL (1.8-7.8); NEUTROPHILS % (AUTO) 72 % (42-75); PLATELET COUNT 317 10^3/uL (130-400); WHITE BLOOD COUNT 7.1 10^3/uL (4.3-11.0)
--- NOTE | 2022-07-21 20:18 | ED General ---
General Chief Complaint: Neurological Problems Stated Complaint: SEIZURE - HIT HEAD - VOMITING Source of Information: Patient, Old Records History of Present Illness Date Seen by Provider: Jul 21, 2022 Time Seen by Provider: 19:54 Initial Comments PT ARRIVES VIA POV FROM HOME--STATES HER DAD DROPPED HER OFF AT ER, AND THEN HE LEFT PT STATES SHE HAS HAD NAUSEA AND VOMITING "OFF AND ON ALL DAY" PT UNABLE TO STATE HOW MANY TIMES SHE HAS VOMITED TODAY NO DIARRHEA NO ABDOMINAL PAIN NO FEVER NO URI SYMPTOMS PT IS VOIDING NORMALLY. NO URINARY SYMPTOMS PT HAS BEEN EATING "LOTS OF FRUITS AND VEGETABLES" AND "DRINKING LOTS OF WATER" ALL DAY TODAY PT STATES SHE HAS HAD 3 SEIZURES TODAY, NONE OF THEM WERE WITNESSED--HAS LONGSTANDING HISTORY OF SELF-REPORTED SEIZURES--NONE ARE EVER WITNESSED. STATES SHE HAD "2 LITTLE ONES"-ONE AT 0830 THIS MORNING AND ANOTHER ONE AT 1530 THIS AFTERNOON--"LASTED LESS THAN 10 SECONDS EACH TIME" AND NO INJURIES FROM THOSE EPISODES. WAS SITTING OR LAYING DOWN WITH THOSE. STATES THE LAST ONE WAS AT "7:29" TONIGHT--STATES SHE WAS STANDING IN THE BATHROOM, AFTER SHE HAD VOMITED, AND HAD A SEIZURE AND HIT THE BACK OF HER HEAD. DOES NOT KNOW HOW LONG IT LASTED, BUT IMMEDIATELY CALLED HER DAD TO BRING HER HERE. NO INCONTINENCE AT ANY TIME NO TONGUE BITING OR ORAL INJURY NO POST ICTAL SYMPTOMS, OTHER THAN HER HEAD HURTING WHERE SHE HIT IT. NO BLEEDING ANYWHERE NO NECK OR BACK PAIN NO PARESTHESIAS OR MOTOR DEFICITS NO EXTREMITY INJURIES NO VISION CHANGES PT HAS HAD COVID-19 VACCINE X 3 PT TESTED + FOR COVID-19 06/12/22=-NO TREATMENT OR COMPLICATIONS PT DENIES ANY MISSED DOSES OF MEDICATIONS PT STATES SHE HAS AN APPOINTMENT WITH HER NEUROLOGIST TOMORROW--ROUTINE FOLLOW UP WITH [facility]. PT HAS HAD A MULTITUDE OF VISITS FOR THIS EXACT SAME ISSUE. SEE OLD CHARTS FOR DETAILS. ALL SEIZURES HAVE BEEN SELF-REPORTED, AND NONE ARE EVER WITNESSED BY ANYONE, AND HAS NEVER HAD AN EEG, PER PT. PT HAS BEEN DX WITH PSEUDOSEIZURES IN THE PAST. LMP 1 WEEK AGO, NORMAL PCP: [facility] Allergies and Home Medications Allergies Coded Allergies: cephalexin (Verified Allergy, Severe, soa, 07/13/20) topiramate (Unverified Allergy, Intermediate, 04/30/21) hives naproxen (Verified Allergy, Mild, 06/23/22) amoxicillin (Verified Allergy, Unknown, 04/06/19) carbamazepine (Verified Allergy, Unknown, 04/06/19) shellfish derived (Verified Allergy, Unknown, 07/20/19) Penicillins (Unverified Adverse Reaction, Intermediate, 04/06/19) Sulfa (Sulfonamide Antibiotics) (Unverified Adverse Reaction, Intermediate, 04/06/19) Patient Home Medication List Home Medication List Reviewed: Yes Albuterol Sulfate (Proair Hfa) 1 Puff Puff, 2 PUFF IH Q4H Prescribed by: BENEDICTO MARTÍNEZ MD on 02/06/22 0231 Butalb/Acetaminophen/Caffeine (Esgic Capsule) 1 Each Capsule, 2 EACH PO Q6H PRN for headache Prescribed by: CELIA HUGHES on 12/17/19 1631 Cefuroxime Axetil (Cefuroxime) 250 Mg Tablet, 250 MG PO BID Prescribed by: CELIA HUGHES on 07/28/21 191 Clindamycin HCl (Clindamycin HCl) 300 Mg Capsule, 300 MG PO TID Prescribed by: STEF NAVAS on 08/15/20 1646 Cyclobenzaprine HCl (Cyclobenzaprine HCl) 10 Mg Tablet, 10 MG PO Q8H PRN for SPASMS Prescribed by: SHAQ OLSEN on 01/15/21 0025 Cyclobenzaprine HCl (Cyclobenzaprine HCl) 10 Mg Tablet, 10 MG PO Q8H PRN for SPASMS Prescribed by: HAMMAD ROACH on 05/22/22 1108 Doxycycline Hyclate (Doxycycline Hyclate) 100 Mg Tablet, 100 MG PO BID Prescribed by: CELIA HUGHES on 12/08/21 193 Erythromycin Base (Erythromycin Opthalmic Ointment) 5 Mg/Gram (0.5 %) Oint...g., 0 OP Q4H Prescribed by: OLMAN NEWTON on 03/20/22 1121 Fluoxetine HCl (Prozac) 20 Mg Capsule, Unknown Dose PO, (Reported) Entered as Reported by: FATOUMATA LIN on 09/01/19444 Hydroxyzine Pamoate (Vistaril) 25 Mg Capsule, Unknown Dose PO, (Reported) Entered as Reported by: FATOUMATA LIN on 09/01/19444 Levetiracetam (Keppra) 1,000 Mg Tablet, 1,000 MG PO TID, (Reported) Entered as Reported by: GRISELDA MARTINEZ on 07/15/19 1659 Medroxyprogesterone Acetate (Provera) 10 Mg Tablet, 10 MG PO DAILY Prescribed by: STEF NAVAS on 08/15/20 1647 Metformin HCl (Metformin HCl) 500 Mg Tablet, 500 MG PO BID Prescribed by: CELIA HUGHES on 07/28/21 1837 Mometasone Furoate (Mometasone Furoate) 45 Gm Cream..g., 45 GM TP TID Prescribed by: SHAQ OLSEN on 03/10/20 023 Nitrofurantoin Macrocrystal (Nitrofurantoin) 100 Mg Capsule, 100 MG PO BID Prescribed by: STEF NAVAS on 07/02/21 210 Nitrofurantoin Monohyd/M-Cryst (Macrobid 100 mg Capsule) 100 Mg Capsule, 1 TAB PO BID Prescribed by: SHAQ OLSEN on 06/11/21 0207 Nitrofurantoin Monohyd/M-Cryst (Macrobid 100 mg Capsule) 100 Mg Capsule, 1 TAB PO BID Prescribed by: TRUDY CURRIE on 05/30/22 1907 Nitrofurantoin Monohyd/M-Cryst (Macrobid 100 mg Capsule) 100 Mg Capsule, 1 TAB PO BID Prescribed by: SHAQ OLSEN on 07/21/22 215 Ofloxacin (Floxin (Non-Formulary)) 5 Ml Drops, 3 DROPS RIGHT EAR BID Prescribed by: CELIA HUGHES on 07/05/20 1426 Ondansetron (Ondansetron Odt) 4 Mg Tab.rapdis, 4 MG PO Q6H PRN for NAUSEA/VOMITING Prescribed by: HAMMAD ROACH on 04/30/21 1134 Ondansetron (Ondansetron Odt) 4 Mg Tab.rapdis, 4 MG PO Q4H Prescribed by: SHAQ OLSEN on 07/21/22 205 Prednisone (Prednisone) 20 Mg Tab, 40 MG PO DAILY Prescribed by: SHAQ OLSEN on 03/10/20 0232 Prednisone (Prednisone) 50 Mg Tab, 50 MG PO DAILY Prescribed by: BENEDICTO MARTÍNEZ MD on 02/06/22 0231 Review of Systems Review of Systems Constitutional: no symptoms reported EENTM: no symptoms reported Respiratory: no symptoms reported Cardiovascular: no symptoms reported Gastrointestinal: see HPI; No abdominal pain, No diarrhea, No loss of appetite; nausea, vomiting Genitourinary: no symptoms reported LMP: Jul 14, 2022 Musculoskeletal: no symptoms reported Skin: no symptoms reported Psychiatric/Neurological: See HPI Hematologic/Lymphatic: No Symptoms Reported Immunological/Allergic: no symptoms reported Past Fzkfnmg-Kqvlek-Omqkcy Hx Immunizations Up To Date Tetanus Booster (TDap): Less than 5yrs PED Vaccines UTD: Yes First/Initial COVID19 Vaccinat: December COVID19 Vaccination Alex: January COVID19 Vaccination Date: JUL Seasonal Allergies Seasonal Allergies: Yes Past Medical History Surgery/Hospitalization HX: Hx seizure disorder. R kidney removed, T/A, HTN, HIGH CHOLESTEROL, HEADACHES, PCOS, ANXIETY/DEPRESSION, PREDIABETIC TESTED + FOR COVID 06/12/22 Surgeries: Yes Adenoidectomy, Ear Surgery, Nephrectomy, Renal, Tonsillectomy Respiratory: No Cardiac: Yes Heart Murmur, High Cholesterol, Hypertension, Irregular Heartbeat Neurological: Yes Headaches /Migraines, Seizure Disorder Reproductive Disorders: No Female Reproductive Disorders: Polycystic Ovarian Dis Genitourinary: Yes (only one kidney) Bladder Infection Gastrointestinal: No Musculoskeletal: No Endocrine: Yes (PCOS; MORBID OBESITY) HEENT: Yes (S/P BMT'S; DECREASED HEARING IN BOTH EAR;BENIGN TUMOR-ROOF OF MOUTH REMOVED) Chronic Ear Infection Hearing Impairment: Hard of Hearing Cancer: No Psychosocial: Yes Anxiety, Depression Integumentary: Yes (skin issues on lt leg) Blood Disorders: No Family Medical History No Pertinent Family Hx SOCIAL HISTORY: -ETOH--OCCASIONAL USE -DRUGS--DENIES USE -SMOKING--QUIT 2011 ADDITIONAL PAST MEDICAL HISTORY: HAD SEIZURES CHILD AND WAS ON MEDICATIONS UNTIL AGE 10; NO SEIZURES FOR YEARS, THEN STARTED HAVING SEIZURES AGAIN 10/2017, AND HAS BEEN BACK ON SEIZURE MEDICATIONS SINCE THEN. THEY POSSIBLY HAVE BEEN RELATED TO MIGRAINES, BUT ON PREVIOUS ER VISITS, THE SEIZURES HAVE BEEN ALL SELF-REPORTED AND NONE HAVE EVER BEEN WITNESSED AND PT HAS NEVER HAD AN EEG PAST SURGICAL HISTORY: -BMT'S -REMOVAL OF BENIGN TUMOR FROM ROOF OF MOUTH -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 -TONSILLECTOMY AND ADENOIDECTOMY Physical Exam Vital Signs Vital Signs - First Documented 07/21/22 19:58 Temp 37.9 Pulse 91 Resp 13 B/P (MAP) 160/120 (133) Pulse Ox 97 O2 Delivery Room Air Capillary Refill : Height, Weight, BMI Height: 5'5.00" Weight: 260lbs. 0oz. [id number]; 50.00 BMI Method:Actual General Appearance: No Apparent Distress, WD/WN, Obese, Other (WALKS IN WITHOUT DIFFICULTY. DOES NOT APPEAR POST ICTAL OR TO BE ILL OR IN ANY DISCOMFORT OR DIST RESS. ) HEENT: PERRL/EOMI, TMs Normal, Normal ENT Inspection, Pharynx Normal, Other (NO EXTERNAL EVIDENCE OF TRAUMA TO HEAD, AND NO TENDERNESS TO HEAD) Neck: Full Range of Motion, Normal Inspection, Non Tender, Supple Respiratory: Chest Non Tender, Normal Breath Sounds, No Accessory Muscle Use, No Respiratory Distress Cardiovascular: Regular Rate, Rhythm, No Murmur Gastrointestinal: Non Tender, Soft Back: Normal Inspection, No CVA Tenderness, No Vertebral Tenderness Extremity: Normal Capillary Refill, Normal Inspection, Normal Range of Motion, Non Tender, No Calf Tenderness, No Pedal Edema Neurologic/Psychiatric: Alert, Oriented x3, No Motor/Sensory Deficits, Normal Mood/Affect, floor sweeper II-XII Norm as Tested; No Abnormal Cerebellar Tests Skin: Normal Color, Warm/Dry Progress/Results/Core Measures Suspected Sepsis SIRS Temperature: Pulse: Respiratory Rate: Laboratory Tests 07/21/22 20:00: White Blood Count 7.1 Blood Pressure / Mean: Laboratory Tests 07/21/22 20:00: Creatinine 0.77, Platelet Count 317, Total Bilirubin 0.5 Results/Orders Lab Results Laboratory Tests Test 07/21/22 20:00 07/21/22 20:10 07/21/22 21:05 Range/Units White Blood Count 7.1 4.3-11.0 10^3/uL Red Blood Count 4.77 3.80-5.11 10^6/uL Hemoglobin 12.8 11.5-16.0 g/dL Hematocrit 40 35-52 % Mean Corpuscular Volume 84 80-99 fL Mean Corpuscular Hemoglobin 27 25-34 pg Mean Corpuscular Hemoglobin Concent 32 32-36 g/dL Red Cell Distribution Width 14.6 H 10.0-14.5 % Platelet Count 317 130-400 10^3/uL Mean Platelet Volume 10.3 9.0-12.2 fL Immature Granulocyte % (Auto) 1 % Neutrophils (%) (Auto) 72 42-75 % Lymphocytes (%) (Auto) 18 12-44 % Monocytes (%) (Auto) 10 0-12 % Eosinophils (%) (Auto) 0 0-10 % Basophils (%) (Auto) 0 0-10 % Neutrophils # (Auto) 5.1 1.8-7.8 10^3/uL Lymphocytes # (Auto) 1.3 1.0-4.0 10^3/uL Monocytes # (Auto) 0.7 0.0-1.0 10^3/uL Eosinophils # (Auto) 0.0 0.0-0.3 10^3/uL Basophils # (Auto) 0.0 0.0-0.1 10^3/uL Immature Granulocyte # (Auto) 0.1 0.0-0.1 10^3/uL Sodium Level 141 135-145 MMOL/L Potassium Level 3.6 3.6-5.0 MMOL/L Chloride Level 106 98-107 MMOL/L Carbon Dioxide Level 21 21-32 MMOL/L Anion Gap 14 5-14 MMOL/L Blood Urea Nitrogen 10 7-18 MG/DL Creatinine 0.77 0.60-1.30 MG/DL Estimat Glomerular Filtration Rate 108 BUN/Creatinine Ratio 13 Glucose Level 122 H 70-105 MG/DL Calcium Level 8.8 8.5-10.1 MG/DL Corrected Calcium 8.6 8.5-10.1 MG/DL Magnesium Level 1.8 1.6-2.4 MG/DL Total Bilirubin 0.5 0.1-1.0 MG/DL Aspartate Amino Transf (AST/SGOT) 14 5-34 U/L Alanine Aminotransferase (ALT/SGPT) 20 0-55 U/L Alkaline Phosphatase 69 40-136 U/L Total Creatine Kinase 16 L 29-168 U/L Creatine Kinase MB 0.1 <6.6 NG/ML Myoglobin 13.2 10.0-92.0 NG/ML Total Protein 7.1 6.4-8.2 GM/DL Albumin 4.2 3.2-4.5 GM/DL Amylase Level 33 25-125 U/L Lipase 29 8-78 U/L Serum Test, Qualitative NEGATIVE NEGATIVE Influenza Type A (RT-PCR) Not Detected Not Detecte Influenza Type B (RT-PCR) Not Detected Not Detecte SARS-CoV-2 RNA (RT-PCR) Not Detected Not Detecte Urine Color DARK YELLOW Urine Clarity CLEAR Urine pH 5.5 5-9 Urine Specific [place] 1.025 H 1.016-1.022 Urine Protein TRACE H NEGATIVE Urine Glucose (UA) NEGATIVE NEGATIVE Urine Ketones NEGATIVE NEGATIVE Urine Nitrite NEGATIVE NEGATIVE Urine Bilirubin 1+ H NEGATIVE Urine Urobilinogen 0.2 < = 1.0 MG/DL Urine Leukocyte Esterase 2+ H NEGATIVE Urine RBC (Auto) TRACE-I H NEGATIVE Urine RBC 2-5 H /HPF Urine WBC 10-25 H /HPF Urine Squamous Epithelial Cells 5-10 /HPF Urine Crystals NONE /LPF Urine Bacteria MODERATE H /HPF Urine Casts NONE /LPF Urine Mucus NEGATIVE /LPF Urine Yeast FEW H /HPF Urine Culture Indicated YES Urine Opiates Screen NEGATIVE NEGATIVE Urine Oxycodone Screen NEGATIVE NEGATIVE Urine Methadone Screen NEGATIVE NEGATIVE Urine Propoxyphene Screen NEGATIVE NEGATIVE Urine Barbiturates Screen NEGATIVE NEGATIVE Ur Tricyclic Antidepressants Screen NEGATIVE NEGATIVE Urine Phencyclidine Screen NEGATIVE NEGATIVE Urine Amphetamines Screen NEGATIVE NEGATIVE Urine Methamphetamines Screen NEGATIVE NEGATIVE Urine Benzodiazepines Screen NEGATIVE NEGATIVE Urine Cocaine Screen NEGATIVE NEGATIVE Urine Cannabinoids Screen NEGATIVE NEGATIVE My Orders Orders - SHAQ OLSEN DO Ed Iv/Invasive Line Start (07/21/22 20:00) Monitor-Rhythm Ecg Trace Only (07/21/22 20:00) Ct Head Wo (07/21/22 20:00) Amylase (07/21/22 20:00) Cbc With Automated Diff (07/21/22 20:00) Comprehensive Metabolic Panel (07/21/22 20:00) Creatine Kinase (07/21/22 20:00) Creatine Kinase Mb (07/21/22 20:00) Drug Screen Stat (Urine) (07/21/22 20:00) Hcg,Qualitative Serum (07/21/22 20:00) Lipase (07/21/22 20:00) Magnesium (07/21/22 20:00) Ua Culture If Indicated (07/21/22 20:00) Myoglobin Serum (07/21/22 20:00) Ed Iv/Invasive Line Start (07/21/22 20:00) Lactated Ringers (Lr 1000 Ml Iv Solution (07/21/22 20:00) Ondansetron Injection (Zofran Injectio (07/21/22 20:00) Covid 19 Inhouse Test (07/21/22 20:00) Influenza A And B By Pcr (07/21/22 20:00) Isolation Central Supply Req (07/21/22 20:00) Rx-Ondansetron Po (Rx-Zofran Po) (07/21/22 20:58) Urine Culture (07/21/22 21:05) Rx-Nitrofurantoin [place] (Rx-Macrobid) (07/21/22 21:53) Medications Given in ED Current Medications Medications Dose Ordered Sig/Kayode Route Start Time Stop Time Status Last Admin Dose Admin Lactated Ringer's 1,000 ml @ 0 mls/hr Q0M ONCE IV 07/21/22 20:00 07/21/22 20:04 DC 07/21/22 20:10 0 MLS/HR Ondansetron HCl 4 mg ONCE ONCE IVP 07/21/22 20:00 07/21/22 20:04 DC 07/21/22 20:10 4 MG Vital Signs/I&O 07/21/22 07/21/22 19:58 22:20 Temp 37.9 Pulse 91 85 Resp 13 17 B/P (MAP) 160/120 (133) 145/107 Pulse Ox 97 96 O2 Delivery Room Air Room Air Capillary Refill : Progress Note : Progress Note PPE WORN COVID TESTING DONE GIVEN: -IV FLUIDS -ZOFRAN NO NAUSEA/VOMITING DURING ER STAY NO SEIZURE ACTIVITY DURING ER STAY NO SYMPTOMS OF ANY KIND DURING ER STAY PT TOLERATING WATER Diagnostic Imaging Comments CT HEAD--PER RADIOLOGIST REPORT AT 2054 COMPARISON: 10/14/2021. FINDINGS: No intracranial hemorrhage, mass effect, hydrocephalus or extra-axial fluid collection. No CT evidence of territorial infarction. Osseous structures are intact. Visualized paranasal sinuses and mastoids are clear. IMPRESSION: No acute intracranial CT finding. Reviewed: Reviewed by Me Departure Impression Primary Impression: SELF REPORTED SEIZURES Additional Impressions: SELF REPORTED NAUSEA AND VOMITING SELF REPORTED HEAD INJURY Urinary tract infection Disposition: 01 HOME, SELF-CARE Condition: Stable Departure-Patient Inst. Decision time for Depature: 20:56 Referrals: KEYANA PRIETO DO (PCP/Family) Primary Care Physician Patient Instructions: HEAD [id number]-YE WAKE-UP, Nausea and Vomiting, Adult (DC), Seizures, Adult (DC), Urinary Tract Infection, Adult (DC) Add. Discharge Instructions: CLEAR LIQUIDS--WATER, BROTH, JELLO, GATORADE TOMORROW IF YOU ARE BETTER, ADD BRATS DIET TO CLEAR LIQUIDS--BANANAS, RICE, APPLESAUCE, TOAST, SALTINES TYLENOL AND MOTRIN NEEDED FOR PAIN KEEP YOUR APPOINTMENT WITH NEUROLOGIST TOMORROW SCHEDULED All discharge instructions reviewed with patient and/or family. Voiced understanding. Scripts Nitrofurantoin Monohyd/M-Cryst (Macrobid 100 mg Capsule) 100 Mg Capsule 1 TAB PO BID, #20 CAP Prov: SHAQ OLSEN DO 07/21/22 Ondansetron (Ondansetron Odt) 4 Mg Tab.rapdis 4 MG PO Q4H for Nausea/Vomiting, #10 TAB Prov: SHAQ OLSEN DO 07/21/22 SHAQ OLSEN DO Jul 21, 2022 20:18
[2022-07-21 20:31] LABS: ALBUMIN 4.2 GM/DL (3.2-4.5); BILIRUBIN,TOTAL 0.5 MG/DL (0.1-1.0); CALCIUM 8.8 MG/DL (8.5-10.1); CREATININE SERUM 0.77 MG/DL (0.60-1.30); MAGNESIUM 1.8 MG/DL (1.6-2.4); POTASSIUM 3.6 MMOL/L (3.6-5.0); TOTAL PROTEIN 7.1 GM/DL (6.4-8.2)
--- NOTE | 2022-07-21 20:51 | Diagnostic Imaging Report ---
PROCEDURE: CT head without contrast. TECHNIQUE: Multiple contiguous axial images were obtained through the brain without the use of intravenous contrast. Auto Exposure Controls were utilized during the CT exam to meet ALARA standards for radiation dose reduction. INDICATION: Seizure. Head injury. Nausea and vomiting. COMPARISON: 10/14/2021. FINDINGS: No intracranial hemorrhage, mass effect, hydrocephalus or extra-axial fluid collection. No CT evidence of territorial infarction. Osseous structures are intact. Visualized paranasal sinuses and mastoids are clear. IMPRESSION: No acute intracranial CT finding. Dictated by: Dictated on workstation # [id number]
[2022-07-21 20:53] LABS: CREATINE KINASE MB 0.1 NG/ML (<6.6)
[2022-07-21] MEDS ORDERED: ONDA4TAB11 PO (20:57)
[2022-07-21] MEDS ORDERED: RX-ONDANSETRON 4 MG ODT (ZOFRAN) PPK #4 PO STA (20:58)
[2022-07-21 21:14] LABS: CLARITY,URINE CLEAR; COLOR,URINE DARK YELLOW; GLUCOSE, URINE (UA) NEGATIVE (NEGATIVE); KETONES,URINE NEGATIVE (NEGATIVE); LEUKOCYTE ESTERASE ,URINE 2+ (NEGATIVE); NITRITE,URINE NEGATIVE (NEGATIVE); PH,URINE 5.5 (5-9); PROTEIN,URINE TRACE (NEGATIVE)
[2022-07-21 21:29] LABS: AMPHETAMINE SCREEN, URINE NEGATIVE (NEGATIVE); BARBITURATE SCREEN URINE NEGATIVE (NEGATIVE); BENZODIAZEPINES SCREEN URINE NEGATIVE (NEGATIVE); CANNABINOID SCREEN, URINE NEGATIVE (NEGATIVE); COCAINE SCREEN URINE NEGATIVE (NEGATIVE); METHADONE STAT NEGATIVE (NEGATIVE); OPIATE SCREEN URINE NEGATIVE (NEGATIVE); OXYCODONE STAT NEGATIVE (NEGATIVE); PROPOXYPHENE STAT NEGATIVE (NEGATIVE); TRICYCLIC ANTIDEPRESSANTS SCRE NEGATIVE (NEGATIVE)
[2022-07-21 21:49] LABS: BACTERIA,URINE MODERATE /HPF; BILIRUBIN,URINE 1+ (NEGATIVE)
[2022-07-21 21:50] LABS: YEAST,URINE FEW /HPF
[2022-07-21] MEDS ORDERED: NITR-65 PO (21:53)
[2022-07-21] MEDS ORDERED: RX-NITROFURANTOIN 100 MG (MACROBID) CAP PPK#2 PO STA (21:53)
[2022-07-21 22:20] VITALS: BP 145/107
== END 2022-07-21 22:18 | disposition home or self-care (01) ==
LOC: EDUNIT# 19:47 → ER 19:49
DX: S09.90XA Unspecified injury of head, initial encounter (principal); G40.909 Epilepsy, unspecified, not intractable, without status epilepticus; E66.9 Obesity, unspecified; Z87.891 Personal history of nicotine dependence; Z68.43 Body mass index [BMI] 50.0-59.9, adult; Z20.822 Contact with and (suspected) exposure to COVID-19; W22.8XXA Striking against or struck by other objects, initial encounter
CPT/HCPCS: 36415; 70450; 80053; 80306; 81000; 82150; 82550; 82553; 83690; 83735; 83874; 84703; 85025; 87088; 87636; 93041

== ENCOUNTER 2022-08-23 02:17 | Emergency (ER) | payer MEDICAID ==
[~2022-08-23] VITALS: Ht 165.1 cm; Wt 130.2 kg
[~2022-08-23 02:17] MED LIST changes: +ALBU8.5H6 IH
[2022-08-23 02:21] VITALS: BP_DIAS 82
--- NOTE | 2022-08-23 02:29 | ED Neurological Problem ---
General Stated Complaint: SEIZURE Source: patient, EMS, old records History of Present Illness Date Seen by Provider: Aug 23, 2022 Time Seen by Provider: 02:20 Initial Comments PT ARRIVES VIA EMS FROM HOME--BOYFRIEND RIDES IN ON AMBULANCE WITH HER. PT HAD A REPORTED SEIZURE JUST PRIOR TO ARRIVAL STATES SHE WAS SITTING AND READING A BOOK WHEN SHE HAD THE REPORTED SEIZURE PT CLAIMS IT LASTED "5-10 MINUTES" BUT STATES SHE DOES NOT REMEMBER IT STATES HER 4 Y.O. NIECE WITNESSED IT. NO INJURY--DID NOT FALL OUT OF CHAIR, ETC. NO PAIN ANYWHERE NO INCONTINENCE NO TONGUE BITING NO HEADACHE AT THIS TIME, BUT HAS CHRONIC DAILY HEADACHES AND TOOK IBUPROFEN 400 MG AT 1900 TONIGHT FOR HEADACHE. PT HAS NO SYMPTOMS OF ANY KIND, AND IS NOT POST ICTAL STATES SHE HAS HAD RIGHT EAR PAIN FOR THE LAST 2 DAYS, WENT TO [facility] YESTERDAY AND DX WITH AN EAR INFECTION AND GIVEN ANTIBIOTIC EAR DROPS. SHE WAS ALSO DX WITH A YEAST INFECTION IN HER ARMPITS AND UNDER HER BREASTS AND IN THE CREASES OF HER PANNUS, AND GIVEN RX FOR A YEAST CREAM AND YEAST PILLS TO TAKE. PT STATES SHE TAKES TRILEPTAL AND KEPPRA FOR SEIZURES, AND METFORMIN FOR " PREDIABETES" DENIES ANY MISSED DOSES OF MEDICATIONS OR ANY CHANGES IN DOSES OF MEDICATIONS STATES SHE HAS NOT SEEN HER NEUROLOGIST FROM [facility] [place], AND NEXT APPOINTMENT IS IN DECEMBER OF 2022 STATES SHE HAS NOT SEEN DR. PRIETO "FOR A FEW MONTHS" PT HAS HAD A MULTITUDE OF VISITS FOR THIS SAME COMPLAINT SEE OLD CHARTS FOR DETAILS. PCP: DR. PRIETO AT [facility]IST WITH Allergies and Home Medications Allergies Coded Allergies: cephalexin (Verified Allergy, Severe, soa, 07/13/20) topiramate (Unverified Allergy, Intermediate, 04/30/21) hives naproxen (Verified Allergy, Mild, 06/23/22) amoxicillin (Verified Allergy, Unknown, 04/06/19) carbamazepine (Verified Allergy, Unknown, 04/06/19) shellfish derived (Verified Allergy, Unknown, 07/20/19) Penicillins (Unverified Adverse Reaction, Intermediate, 04/06/19) Sulfa (Sulfonamide Antibiotics) (Unverified Adverse Reaction, Intermediate, 04/06/19) Patient Home Medication List Home Medication List Reviewed: Yes Albuterol Sulfate (Ventolin Hfa) 1 Puff Puff, 2 PUFF IH Q4H Prescribed by: BENEDICTO MARTÍNEZ MD on 02/06/22 0231 Butalb/Acetaminophen/Caffeine (Esgic Capsule) 1 Each Capsule, 2 EACH PO Q6H PRN for headache Prescribed by: CELIA HUGHES on 12/17/19 1631 Cefuroxime Axetil (Cefuroxime) 250 Mg Tablet, 250 MG PO BID Prescribed by: CELIA HUGHES on 07/28/21 191 Clindamycin HCl (Clindamycin HCl) 300 Mg Capsule, 300 MG PO TID Prescribed by: STEF NAVAS on 08/15/20 1646 Cyclobenzaprine HCl (Cyclobenzaprine HCl) 10 Mg Tablet, 10 MG PO Q8H PRN for SPASMS Prescribed by: SHAQ OLSEN on 01/15/21 0025 Cyclobenzaprine HCl (Cyclobenzaprine HCl) 10 Mg Tablet, 10 MG PO Q8H PRN for SPASMS Prescribed by: HAMMAD ROACH on 05/22/22 1108 Doxycycline Hyclate (Doxycycline Hyclate) 100 Mg Tablet, 100 MG PO BID Prescribed by: CELIA HUGHES on 12/08/21 193 Erythromycin Base (Erythromycin Opthalmic Ointment) 5 Mg/Gram (0.5 %) Oint...g., 0 OP Q4H Prescribed by: OLMAN NEWTON on 03/20/22 1121 Fluoxetine HCl (Prozac) 20 Mg Capsule, Unknown Dose PO, (Reported) Entered as Reported by: FATOUMATA LIN on 09/01/19 044 Hydroxyzine Pamoate (Vistaril) 25 Mg Capsule, Unknown Dose PO, (Reported) Entered as Reported by: FATOUMATA LIN on 09/01/19444 Levetiracetam (Keppra) 1,000 Mg Tablet, 1,000 MG PO TID, (Reported) Entered as Reported by: GRISELDA MARTINEZ on 07/15/19 165 Medroxyprogesterone Acetate (Provera) 10 Mg Tablet, 10 MG PO DAILY Prescribed by: STEF NAVAS on 08/15/20 164 Metformin HCl (Metformin HCl) 500 Mg Tablet, 500 MG PO BID Prescribed by: CELIA HUGHES on 07/28/21 1837 Mometasone Furoate (Mometasone Furoate) 45 Gm Cream..g., 45 GM TP TID Prescribed by: SHAQ OLSEN on 03/10/20 023 Nitrofurantoin Macrocrystal (Nitrofurantoin) 100 Mg Capsule, 100 MG PO BID Prescribed by: STEF NAVAS on 07/02/21 210 Nitrofurantoin Monohyd/M-Cryst (Macrobid 100 mg Capsule) 100 Mg Capsule, 1 TAB PO BID Prescribed by: SHAQ OLSEN on 06/11/21 0207 Nitrofurantoin Monohyd/M-Cryst (Macrobid 100 mg Capsule) 100 Mg Capsule, 1 TAB PO BID Prescribed by: TRUDY CURRIE on 05/30/22 190 Nitrofurantoin Monohyd/M-Cryst (Macrobid 100 mg Capsule) 100 Mg Capsule, 1 TAB PO BID Prescribed by: SHAQ OLSEN on 07/21/22 215 Ofloxacin (Floxin (Non-Formulary)) 5 Ml Drops, 3 DROPS RIGHT EAR BID Prescribed by: CELIA HUGHES on 07/05/20 1426 Ondansetron (Ondansetron Odt) 4 Mg Tab.rapdis, 4 MG PO Q6H PRN for NAUSEA/VOMITING Prescribed by: HAMMAD ROACH on 04/30/21 1134 Ondansetron (Ondansetron Odt) 4 Mg Tab.rapdis, 4 MG PO Q4H Prescribed by: SHAQ OLSEN on 07/21/222056 Prednisone (Prednisone) 20 Mg Tab, 40 MG PO DAILY Prescribed by: SHAQ OLSEN on 03/10/20231 Prednisone (Prednisone) 50 Mg Tab, 50 MG PO DAILY Prescribed by: BENEDICTO MARTÍNEZ MD on 02/06/22 023 Review of Systems Review of Systems Constitutional: no symptoms reported Eyes: No Symptoms Reported Ears, Nose, Mouth, Throat: no symptoms reported Respiratory: no symptoms reported Cardiovascular: no symptoms reported Gastrointestinal: no symptoms reported Genitourinary: no symptoms reported Musculoskeletal: no symptoms reported Skin: no symptoms reported Psychiatric/Neurological: See HPI Endocrine: No Symptoms Reported Hematologic/Lymphatic: No Symptoms Reported Past Qnvfsmp-Itqtme-Abbxan Hx Immunizations Up To Date Tetanus Booster (TDap): Less than 5yrs PED Vaccines UTD: Yes First/Initial COVID19 Vaccinat: DECEMBER 2020 Second COVID19 Vaccination Alex: JANUARY 2021 Third COVID19 Vaccination Date: JUL 2021 Seasonal Allergies Seasonal Allergies: Yes Past Medical History Surgery/Hospitalization HX: Hx seizure disorder. R kidney removed, T/A, HTN, HIGH CHOLESTEROL, HEADACHES, PCOS, ANXIETY/DEPRESSION, PREDIABETIC TESTED + FOR COVID 06/12/22 Surgeries: Yes Adenoidectomy, Ear Surgery, Nephrectomy, Renal, Tonsillectomy Respiratory: No Cardiac: Yes Heart Murmur, High Cholesterol, Hypertension, Irregular Heartbeat Neurological: Yes Headaches /Migraines, Seizure Disorder Reproductive Disorders: No Female Reproductive Disorders: Polycystic Ovarian Dis Genitourinary: Yes (only one kidney) Bladder Infection Gastrointestinal: No Musculoskeletal: No Endocrine: Yes (PCOS; MORBID OBESITY; "PREDIABETES" ) HEENT: Yes (S/P BMT'S; DECREASED HEARING IN BOTH EAR;BENIGN TUMOR-ROOF OF MOUTH REMOVED) Chronic Ear Infection Hearing Impairment: Hard of Hearing Cancer: No Psychosocial: Yes Anxiety, Depression Integumentary: Yes (skin issues on lt leg) Blood Disorders: No Family Medical History No Pertinent Family Hx SOCIAL HISTORY: -ETOH--OCCASIONAL USE -DRUGS--DENIES USE -SMOKING--QUIT 2011 ADDITIONAL PAST MEDICAL HISTORY: HAD SEIZURES CHILD AND WAS ON MEDICATIONS UNTIL AGE 10; NO SEIZURES FOR YEARS, THEN STARTED HAVING SEIZURES AGAIN 10/2017, AND HAS BEEN BACK ON SEIZURE MEDICATIONS SINCE THEN. THEY POSSIBLY HAVE BEEN RELATED TO MIGRAINES, BUT ON PREVIOUS ER VISITS, THE SEIZURES HAVE BEEN ALL SELF-REPORTED AND NONE HAVE EVER BEEN WITNESSED AND PT HAS NEVER HAD AN EEG PAST SURGICAL HISTORY: -BMT'S -REMOVAL OF BENIGN TUMOR FROM ROOF OF MOUTH -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 -TONSILLECTOMY AND ADENOIDECTOMY Physical Exam Vital Signs Vital Signs - First Documented 08/23/22 02:21 Temp 37.2 Pulse 78 Resp 16 B/P (MAP) 150/82 (104) Pulse Ox 98 O2 Delivery Room Air Capillary Refill : Height, Weight, BMI Height: 5'5.00" Weight: 260lbs. 0oz. [id number]; 50.00 BMI Method:Actual General Appearance: WD/WN, no apparent distress, obese (MORBIDLY OBESE), other (VERY MALODOROUS, UNKEMPT. DOES NOT APPEAR POST ICTAL. SPEECH IS CLEAR AND MENTATION IS NORMAL. ) HEENT: PERRL/EOMI, other (NO INJURY TO TONGUE OR ORAL MUCOSA OR LIPS; TM'S VERY SLIGHTLY INJECTED. EAC'S NORMAL. ) Neck: normal inspection Respiratory: normal breath sounds, no respiratory distress, no accessory muscle use Cardiovascular: regular rate, rhythm, no murmur Gastrointestinal: non tender, soft Back: normal inspection, no CVA tenderness, no vertebral tenderness Extremities: non-tender, normal inspection, normal capillary refill Neurologic/Psychiatric: flight attendant/inflight manager II-XII nml as tested, no motor/sensory deficits, alert, normal mood/affect, oriented x 3; No abnormal gait Crainal Nerves: normal hearing, normal speech, PERRL Coordination/Gait: normal gait Motor/Sensory: no motor deficit, no sensory deficit Skin: normal color, warm/dry; No ecchymosis; rash (CLASSIC CANDIDAL INTERTRIGO IN SKIN FOLDS IN AXILLA, UNDER BREASTS AND UNDER PANNUS. ) Progress/Results/Core Measures Results/Orders Vital Signs/I&O 08/23/22 08/23/22 02:21 02:32 Temp 37.2 Pulse 78 78 Resp 16 16 B/P (MAP) 150/82 (104) 82/ Pulse Ox 98 99 O2 Delivery Room Air Room Air Progress Progress Note : Progress Note PT SEEN AND EXAMINED. NO INJURY NO POST INCTAL SYMPTOMS NO SYMPTOMS OF ANY KIND. Departure Impression Primary Impression: REPORTED SEIZURE Disposition: 01 HOME, SELF-CARE Condition: Stable Departure-Patient Inst. Decision time for Depature: 02:28 Referrals: KEYANA PRIETO DO (PCP/Family) Primary Care Physician Patient Instructions: Seizures, Adult (DC) Add. Discharge Instructions: HOME, REST LOTS OF FLUIDS CONTINUE YOUR MEDICATION PRESCRIBED FOLLOW UP WITH YOUR NEUROLOGIST FOR FURTHER CARE--CALL TODAY TO MAKE AN APPOINTMENT SHAQ OLSEN DO Aug 23, 2022 02:29
[2022-08-23 02:32] VITALS: BP_SYST 82
== END 2022-08-23 02:33 | disposition home or self-care (01) ==
LOC: EDUNIT# 02:17 → ER 02:19
DX: G40.909 Epilepsy, unspecified, not intractable, without status epilepticus (principal); E66.01 Morbid (severe) obesity due to excess calories; Z68.43 Body mass index [BMI] 50.0-59.9, adult
CPT/HCPCS: 99283

== ENCOUNTER 2022-12-06 10:36 | Emergency (ER) | payer MEDICAID ==
[~2022-12-06] VITALS: Ht 165.1 cm; Wt 123.8 kg
--- NOTE | 2022-12-06 11:16 | ED Neurological Problem ---
General Chief Complaint: Neurological Problems Stated Complaint: SEIZURES Nursing Triage Note: PT AMB TO [facility] WITH COMPLAINT OF HAVING MULTIPLE SEIZURES. STATES SHE HAS HAD MULTIPLE SEIZURES SINCE FALLING ASLEEP. STATES HER "ADOPTED BROTHER" WITNESSED HER HAVING ONE THIS MORNING AND CALLED A FRIEND TO BRING HER OUT TO THE ER. Source: patient Exam Limitations: no limitations (AMANDA RUIZ) History of Present Illness Date Seen by Provider: Dec 06, 2022 Time Seen by Provider: 11:16 Initial Comments Patient is a 27-year-old female with a history of epilepsy, PTSD, anxiety, depression, hearing loss, migraines who presents ED with multiple seizures. This occurred this morning 4 hours ago. Was brought to ED by her foster brother for witnessed seizures. She states she had at least 20 episodes of seizures during her sleep. Unknown length of seizures. Currently on Trileptal 900 mg twice a day, Keppra 1000 mg twice a day prescribed by her neurologist at [facility]. Patient is currently not postictal. She is currently in no acute distress and playing on her phone. She states she does have some mild nausea, feels like the room spinning and blurry vision with a known history of blurry vision. Denies of any current headache, visual loss, unilateral muscle weakness or sensory changes, chest pain, cough, concern for , dysuria, shortness of breath. She does report some allergy symptoms. Patient has been seen here multiple times for similar type seizures. She is scheduled follow-up with neurologist in December. She reports increased stress. She is currently on her menstrual cycle. Denies any drug use or alcohol use (AMANDA RUIZ) Allergies and Home Medications Allergies Coded Allergies: cephalexin (Verified Allergy, Severe, soa, 07/13/20) topiramate (Unverified Allergy, Intermediate, 04/30/21) hives naproxen (Verified Allergy, Mild, 06/23/22) amoxicillin (Verified Allergy, Unknown, 04/06/19) carbamazepine (Verified Allergy, Unknown, 04/06/19) shellfish derived (Verified Allergy, Unknown, 07/20/19) Penicillins (Unverified Adverse Reaction, Intermediate, 04/06/19) Sulfa (Sulfonamide Antibiotics) (Unverified Adverse Reaction, Intermediate, 04/06/19) Patient Home Medication List Home Medication List Reviewed: Yes (AMANDA RUIZ) Albuterol Sulfate (Ventolin Hfa) 1 Puff Puff, 2 PUFF IH Q4H Prescribed by: BENEDICTO MARTÍNEZ MD on 02/06/22 0231 Butalb/Acetaminophen/Caffeine (Esgic Capsule) 1 Each Capsule, 2 EACH PO Q6H PRN for headache Prescribed by: CELIA HUGHES on 12/17/19 1631 Cefuroxime Axetil (Cefuroxime) 250 Mg Tablet, 250 MG PO BID Prescribed by: CELIA HUGHES on 07/28/21 191 Clindamycin HCl (Clindamycin HCl) 300 Mg Capsule, 300 MG PO TID Prescribed by: STEF NAVAS on 08/15/20 164 Cyclobenzaprine HCl (Cyclobenzaprine HCl) 10 Mg Tablet, 10 MG PO Q8H PRN for SPASMS Prescribed by: SHAQ OLSEN on 01/15/21 0025 Cyclobenzaprine HCl (Cyclobenzaprine HCl) 10 Mg Tablet, 10 MG PO Q8H PRN for SPASMS Prescribed by: HAMMAD ROACH on 05/22/22 1108 Doxycycline Hyclate (Doxycycline Hyclate) 100 Mg Tablet, 100 MG PO BID Prescribed by: CELIA HUGHES on 12/08/21 193 Erythromycin Base (Erythromycin Opthalmic Ointment) 5 Mg/Gram (0.5 %) Oint...g., 0 OP Q4H Prescribed by: OLMAN NEWTON on 03/20/22 1121 Fluoxetine HCl (Prozac) 20 Mg Capsule, Unknown Dose PO, (Reported) Entered as Reported by: FATOUMATA LIN on 09/01/19444 Hydroxyzine Pamoate (Vistaril) 25 Mg Capsule, Unknown Dose PO, (Reported) Entered as Reported by: FATOUMATA LIN on 09/01/19444 Levetiracetam (Keppra) 1,000 Mg Tablet, 1,000 MG PO TID, (Reported) Entered as Reported by: GRISELDA MARTINEZ on 07/15/19 165 Medroxyprogesterone Acetate (Provera) 10 Mg Tablet, 10 MG PO DAILY Prescribed by: STEF NAVAS on 08/15/20 1647 Metformin HCl (Metformin HCl) 500 Mg Tablet, 500 MG PO BID Prescribed by: CELIA HUGHES on 07/28/21 1837 Mometasone Furoate (Mometasone Furoate) 45 Gm Cream..g., 45 GM TP TID Prescribed by: SHAQ OLSEN on 03/10/20 023 Nitrofurantoin Macrocrystal (Nitrofurantoin) 100 Mg Capsule, 100 MG PO BID Prescribed by: STEF NAVAS on 07/02/21 210 Nitrofurantoin Monohyd/M-Cryst (Macrobid 100 mg Capsule) 100 Mg Capsule, 1 TAB PO BID Prescribed by: SHAQ OLSEN on 06/11/21 0207 Nitrofurantoin Monohyd/M-Cryst (Macrobid 100 mg Capsule) 100 Mg Capsule, 1 TAB PO BID Prescribed by: TRUDY CURRIE on 05/30/22 1907 Nitrofurantoin Monohyd/M-Cryst (Macrobid 100 mg Capsule) 100 Mg Capsule, 1 TAB PO BID Prescribed by: SHAQ OLSEN on 07/21/22 215 Ofloxacin (Floxin (Non-Formulary)) 5 Ml Drops, 3 DROPS RIGHT EAR BID Prescribed by: CELIA HUGHES on 07/05/20 1426 Ondansetron (Ondansetron Odt) 4 Mg Tab.rapdis, 4 MG PO Q6H PRN for NAUSEA/VOMITI NG Prescribed by: HAMMAD ROACH on 04/30/21 1134 Ondansetron (Ondansetron Odt) 4 Mg Tab.rapdis, 4 MG PO Q4H Prescribed by: SHAQ OLSEN on 07/21/222056 Prednisone (Prednisone) 20 Mg Tab, 40 MG PO DAILY Prescribed by: SHAQ OLSEN on 03/10/20231 Prednisone (Prednisone) 50 Mg Tab, 50 MG PO DAILY Prescribed by: BENEDICTO MARTÍNEZ MD on 02/06/22230 Review of Systems Review of Systems Constitutional: No chills, No malaise, No weakness Eyes: Blurred Vision; Denies Inflammation, Denies Pain, Denies Photophobia Ears, Nose, Mouth, Throat: denies ear pain, denies ear discharge Respiratory: No cough, No dyspnea on exertion Cardiovascular: No chest pain Gastrointestinal: No abdominal pain, No diarrhea; nausea; No vomiting Genitourinary: No decreased output, No discharge Musculoskeletal: No back pain, No joint pain, No muscle pain, No muscle stiffness Skin: No change in color Psychiatric/Neurological: Denies Anxiety, Denies Depressed (AMANDA RUIZ) All Other Systems Reviewed Negative Unless Noted: Yes (AMANDA RUIZ) Past Jzsjaej-Vtgutg-Tlzgkz Hx Patient Social History Tobacco Use?: No Use of E-Cig and/or Vaping dev: No Substance use?: No Alcohol Use?: No Pt feels they are or have been: No (AMANDA RUIZ) Immunizations Up To Date Tetanus Booster (TDap): Less than 5yrs PED Vaccines UTD: Yes First/Initial COVID19 Vaccinat: DECEMBER 2020 Second COVID19 Vaccination Alex: JANUARY 2021 Third COVID19 Vaccination Date: JUL 2021 (AMANDA RUIZ) Seasonal Allergies Seasonal Allergies: Yes (AMANDA RUIZ) Past Medical History Surgery/Hospitalization HX: Hx seizure disorder. R kidney removed, T/A, HTN, HIGH CHOLESTEROL, HEADACHES, PCOS, ANXIETY/DEPRESSION, PREDIABETIC TESTED + FOR COVID 06/12/22 Surgeries: Yes Adenoidectomy, Ear Surgery, Nephrectomy, Renal, Tonsillectomy Respiratory: No Cardiac: Yes Heart Murmur, High Cholesterol, Hypertension, Irregular Heartbeat Neurological: Yes Headaches /Migraines, Seizure Disorder Reproductive Disorders: No Female Reproductive Disorders: Polycystic Ovarian Dis Genitourinary: Yes (only one kidney) Bladder Infection Gastrointestinal: No Musculoskeletal: No Endocrine: Yes (PCOS; MORBID OBESITY; "PREDIABETES" ) HEENT: Yes (S/P BMT'S; DECREASED HEARING IN BOTH EAR;BENIGN TUMOR-ROOF OF MOUTH REMOVED) Chronic Ear Infection Hearing Impairment: Hard of Hearing Cancer: No Psychosocial: Yes Anxiety, Depression Integumentary: Yes (skin issues on lt leg) Blood Disorders: No (AMANDA RUIZ) Family Medical History No Pertinent Family Hx SOCIAL HISTORY: -ETOH--OCCASIONAL USE -DRUGS--DENIES USE -SMOKING--QUIT 2011 ADDITIONAL PAST MEDICAL HISTORY: HAD SEIZURES CHILD AND WAS ON MEDICATIONS UNTIL AGE 10; NO SEIZURES FOR YEARS, THEN STARTED HAVING SEIZURES AGAIN 10/2017, AND HAS BEEN BACK ON SEIZURE MEDICATIONS SINCE THEN. THEY POSSIBLY HAVE BEEN RELATED TO MIGRAINES, BUT ON PREVIOUS ER VISITS, THE SEIZURES HAVE BEEN ALL SELF-REPORTED AND NONE HAVE EVER BEEN WITNESSED AND PT HAS NEVER HAD AN EEG PAST SURGICAL HISTORY: -BMT'S -REMOVAL OF BENIGN TUMOR FROM ROOF OF MOUTH -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 -TONSILLECTOMY AND ADENOIDECTOMY (AMANDA RUIZ) Physical Exam Vital Signs Vital Signs - First Documented 12/06/22 10:44 Temp 36.8 Pulse 64 Resp 17 B/P (MAP) 146/84 (104) Pulse Ox 96 O2 Delivery Room Air (STEF MCKNIGHT MD) Vital Signs Capillary Refill : Less Than 3 Seconds (AMANDA RUIZ) Height, Weight, BMI Height: 5'5.00" Weight: 260lbs. 0oz. 117.428564zs; 45.00 BMI Method:Actual General Appearance: WD/WN, no apparent distress HEENT: PERRL/EOMI, normal ENT inspection, TMs normal, pharynx normal Neck: non-tender, full range of motion, supple Respiratory: chest non-tender, lungs clear, normal breath sounds, no respiratory distress, no accessory muscle use Cardiovascular: regular rate, rhythm, no edema, no gallop, no JVD Gastrointestinal: normal bowel sounds, non tender, soft, no organomegaly Back: normal inspection, no CVA tenderness Extremities: normal range of motion, non-tender, normal inspection, no pedal edema Neurologic/Psychiatric: felt puller II-XII nml as tested, no motor/sensory deficits, alert, normal mood/affect, oriented x 3 Crainal Nerves: normal hearing, normal speech, PERRL Coordination/Gait: normal finger to nose, normal gait Motor/Sensory: no motor deficit, no sensory deficit Skin: normal color, warm/dry Lymphatic: no adenopathy (AMANDA RUIZ) Progress/Results/Core Measures Results/Orders Lab Results Laboratory Tests Test 12/06/22 11:34 12/06/22 11:59 Range/Units White Blood Count 4.9 4.3-11.0 10^3/uL Red Blood Count 4.79 3.80-5.11 10^6/uL Hemoglobin 12.4 11.5-16.0 g/dL Hematocrit 39 35-52 % Mean Corpuscular Volume 81 80-99 fL Mean Corpuscular Hemoglobin 26 25-34 pg Mean Corpuscular Hemoglobin Concent 32 32-36 g/dL Red Cell Distribution Width 14.8 H 10.0-14.5 % Platelet Count 290 130-400 10^3/uL Mean Platelet Volume 10.3 9.0-12.2 fL Immature Granulocyte % (Auto) 1 % Neutrophils (%) (Auto) 68 42-75 % Lymphocytes (%) (Auto) 21 12-44 % Monocytes (%) (Auto) 10 0-12 % Eosinophils (%) (Auto) 0 0-10 % Basophils (%) (Auto) 1 0-10 % Neutrophils # (Auto) 3.3 1.8-7.8 10^3/uL Lymphocytes # (Auto) 1.0 1.0-4.0 10^3/uL Monocytes # (Auto) 0.5 0.0-1.0 10^3/uL Eosinophils # (Auto) 0.0 0.0-0.3 10^3/uL Basophils # (Auto) 0.0 0.0-0.1 10^3/uL Immature Granulocyte # (Auto) 0.0 0.0-0.1 10^3/uL Sodium Level 141 135-145 MMOL/L Potassium Level 3.9 3.6-5.0 MMOL/L Chloride Level 106 98-107 MMOL/L Carbon Dioxide Level 23 21-32 MMOL/L Anion Gap 12 5-14 MMOL/L Blood Urea Nitrogen 10 7-18 MG/DL Creatinine 0.80 0.60-1.30 MG/DL Estimat Glomerular Filtration Rate 102 BUN/Creatinine Ratio 13 Glucose Level 91 70-105 MG/DL Calcium Level 8.8 8.5-10.1 MG/DL Corrected Calcium 8.8 8.5-10.1 MG/DL Total Bilirubin 0.3 0.1-1.0 MG/DL Aspartate Amino Transf (AST/SGOT) 15 5-34 U/L Alanine Aminotransferase (ALT/SGPT) 17 0-55 U/L Alkaline Phosphatase 68 40-136 U/L Total Protein 7.1 6.4-8.2 GM/DL Albumin 4.0 3.2-4.5 GM/DL Prolactin 13.5 ng/mL Urine Color RED H Urine Clarity CLOUDY Urine pH 8.5 5-9 Urine Specific Crane 1.020 1.016-1.022 Urine Protein 2+ H NEGATIVE Urine Glucose (UA) NEGATIVE NEGATIVE Urine Ketones NEGATIVE NEGATIVE Urine Nitrite NEGATIVE NEGATIVE Urine Bilirubin NEGATIVE NEGATIVE Urine Urobilinogen 1.0 < = 1.0 MG/DL Urine Leukocyte Esterase TRACE H NEGATIVE Urine RBC (Auto) 3+ H NEGATIVE Urine RBC TNTC H /HPF Urine WBC 10-25 H /HPF Urine Squamous Epithelial Cells 10-25 H /HPF Urine Crystals NONE /LPF Urine Bacteria LARGE H /HPF Urine Casts NONE /LPF Urine Mucus NEGATIVE /LPF Urine Culture Indicated YES Urine Test NEGATIVE NEGATIVE Urine Opiates Screen NEGATIVE NEGATIVE Urine Oxycodone Screen NEGATIVE NEGATIVE Urine Methadone Screen NEGATIVE NEGATIVE Urine Propoxyphene Screen NEGATIVE NEGATIVE Urine Barbiturates Screen NEGATIVE NEGATIVE Ur Tricyclic Antidepressants Screen NEGATIVE NEGATIVE Urine Phencyclidine Screen NEGATIVE NEGATIVE Urine Amphetamines Screen NEGATIVE NEGATIVE Urine Methamphetamines Screen NEGATIVE NEGATIVE Urine Benzodiazepines Screen NEGATIVE NEGATIVE Urine Cocaine Screen NEGATIVE NEGATIVE Urine Cannabinoids Screen NEGATIVE NEGATIVE (STEF MCKNIGHT MD) Micro Results Microbiology 12/06/22 Urine Culture - Final, Complete Mixed Bacterial Rae (STEF MCKNIGHT MD) Vital Signs/I&O 12/06/22 12/06/22 10:44 13:00 Temp 36.8 36.8 Pulse 64 64 Resp 17 17 B/P (MAP) 146/84 (104) 138/79 Pulse Ox 96 96 O2 Delivery Room Air Room Air (STEF MCKNIGHT MD) Blood Pressure Mean: 104 Departure Communication (PCP) Patient with a history of seizure disorder. She was not postictal. Seizure precautions. Vital signs stable. Patient neuro exam unremarkable. Lab work was otherwise unremarkable. Urinalysis did note squamous cell, bacteria however she has no current urinary symptoms. Will not prescribe antibiotics until culture resulted as she is currently asymptomatic and afebrile. Patient was observed here in the ED without any acute changes. She reports history of several seizures weekly. She is currently on Keppra 1000 mg and Trileptal 900 mg twice daily for both. Discussed potentially increasing the Keppra to 1500 mg twice daily. She is scheduled to follow-up with her neurologist in December. She has been seen here multiple times for similar seizures. Do not feel like imaging is needed at this time. Patient with a stable gait. She is currently on disability. Recommend not operating machinery. If any worsening symptoms return back to ED for further evaluation. She agrees with this plan of action (AMANDA RUIZ) Impression Primary Impression: Seizure disorder Disposition: 01 HOME, SELF-CARE Condition: Stable Departure-Patient Inst. Decision time for Depature: 12:44 (AMANDA RUIZ) Referrals: KEYANA PRIETO DO (PCP/Family) Primary Care Physician Patient Instructions: Seizures, Adult (DC) Add. Discharge Instructions: Discussed increasing Keppra to 1500 mg twice daily. Continue with Trileptal. Discussed contacting your neurologist for further evaluation. Return back to ED if symptoms worsen. All discharge instructions reviewed with patient and/or family. Voiced understanding. ATTENDING PHYSICIAN NOTE: I was physically present as attending physician in the emergency department during the care of this patient, but I was not directly involved in the decision making or delivery of care for this patient. (STEF MCKNIGHT MD) AMANDA RUIZ Dec 06, 2022 11:16 STEF MCKNIGHT MD Dec 08, 2022 06:25
[2022-12-06 11:43] LABS: BASOPHILS % (AUTO) 1 % (0-10); EOSINOPHILS % (AUTO) 0 % (0-10); HEMATOCRIT 39 % (35-52); HEMOGLOBIN 12.4 g/dL (11.5-16.0); LYMPHOCYTES % (AUTO) 21 % (12-44); MEAN CORPUSCULAR HEMOGLOBIN 26 pg (25-34); MEAN CORPUSCULAR HGB CONC 32 g/dL (32-36); MEAN CORPUSCULAR VOLUME 81 fL (80-99); MEAN PLATELET VOLUME 10.3 fL (9.0-12.2); MONOCYTES # (AUTO) 0.5 10^3/uL (0.0-1.0); MONOCYTES % (AUTO) 10 % (0-12); NEUTROPHILS # (AUTO) 3.3 10^3/uL (1.8-7.8); NEUTROPHILS % (AUTO) 68 % (42-75); PLATELET COUNT 290 10^3/uL (130-400); WHITE BLOOD COUNT 4.9 10^3/uL (4.3-11.0)
[2022-12-06 11:55] LABS: POTASSIUM 3.9 MMOL/L (3.6-5.0)
[2022-12-06 11:56] LABS: CALCIUM 8.8 MG/DL (8.5-10.1)
[2022-12-06 11:57] LABS: TOTAL PROTEIN 7.1 GM/DL (6.4-8.2)
[2022-12-06 11:59] LABS: BILIRUBIN,TOTAL 0.3 MG/DL (0.1-1.0)
[2022-12-06 12:01] LABS: CREATININE SERUM 0.8 MG/DL (0.60-1.30)
[2022-12-06 12:08] LABS: BILIRUBIN,URINE NEGATIVE (NEGATIVE); CLARITY,URINE CLOUDY; COLOR,URINE RED; GLUCOSE, URINE (UA) NEGATIVE (NEGATIVE); KETONES,URINE NEGATIVE (NEGATIVE); LEUKOCYTE ESTERASE ,URINE TRACE (NEGATIVE); NITRITE,URINE NEGATIVE (NEGATIVE); PH,URINE 8.5 (5-9); PROTEIN,URINE 2+ (NEGATIVE)
[2022-12-06 12:33] LABS: AMPHETAMINE SCREEN, URINE NEGATIVE (NEGATIVE); BARBITURATE SCREEN URINE NEGATIVE (NEGATIVE); BENZODIAZEPINES SCREEN URINE NEGATIVE (NEGATIVE); CANNABINOID SCREEN, URINE NEGATIVE (NEGATIVE); COCAINE SCREEN URINE NEGATIVE (NEGATIVE); HCG,QUALITATIVE URINE NEGATIVE (NEGATIVE); METHADONE STAT NEGATIVE (NEGATIVE); OPIATE SCREEN URINE NEGATIVE (NEGATIVE); OXYCODONE STAT NEGATIVE (NEGATIVE); PROPOXYPHENE STAT NEGATIVE (NEGATIVE); TRICYCLIC ANTIDEPRESSANTS SCRE NEGATIVE (NEGATIVE)
[2022-12-06 12:36] LABS: BACTERIA,URINE LARGE /HPF; RBC,URINE TNTC /HPF
[2022-12-06 13:00] VITALS: BP 138/79
== END 2022-12-06 12:59 | disposition home or self-care (01) ==
LOC: EDUNIT# 10:36 → ER 10:40
DX: G40.909 Epilepsy, unspecified, not intractable, without status epilepticus (principal); E66.01 Morbid (severe) obesity due to excess calories; Z68.42 Body mass index [BMI] 45.0-49.9, adult; Z79.899 Other long term (current) drug therapy; Z86.16 Personal history of COVID-19; Z87.891 Personal history of nicotine dependence
CPT/HCPCS: 36415; 80053; 80306; 81000; 84146; 84703; 85025; 87088; 99282

== ENCOUNTER 2023-04-01 20:19 | Emergency (ER) | payer MEDICAID ==
[~2023-04-01] VITALS: Ht 167 cm; Wt 108.8 kg
--- NOTE | 2023-04-01 21:11 | ED General ---
General Chief Complaint: Neurological Problems Stated Complaint: SEIZURE|HIT RIGHT KNEE|CAN'T FEEL RIGHT SIDE Nursing Triage Note: Pt presents with c/o R knee pain, with numbness and tingling in R side. Pt has seizure hx, states seizures have been well controlled until recently. She reports being under a lot of stress, causing an increase in the frequency of seizures. Pt states she took meds just before her seizure. Pt states she hit her R knee on the tub during her seizure, and now she feels it "crunching" when she walks. Pt also diagnosed with ear infection on friday, and neurologist told her the seizure could be related to that. Source of Information: Patient, Old Records History of Present Illness Date Seen by Provider: Apr 01, 2023 Time Seen by Provider: 20:55 Initial Comments PT ARRIVES VIA POV FROM HOME STATES SHE WAS IN THE BATHROOM AND HAD A SEIZURE STATES SHE GOT UP OFF THE FLOOR AND "COULDN'T FEEL MY RIGHT SIDE" AND SHE HIT HER RIGHT KNEE ON THE BATHTUB SHE DENIES HITTING HER HEAD OR HAVING A HEADACHE STATES IT HAPPENED AT "2012" TONIGHT EPISODE WAS NOT WITNESSED BY ANYONE STATES "THE FEELING IS STARTING TO COME BACK BUT I CAN'T FEEL ANYTHING" STATES HER VISION "IS OK SORTA BUT STILL THINK IT'S A LITTLE BLURRY" NO VISION CHANGES NO NAUSEA/VOMITING NO MOTOR DEFICITS PT IS ABLE TO WALK IN ON HER OWN SHE HAS NOT TAKEN ANYTHING FOR PAIN SHE DENIES ANY MISSED DOES OF MEDICATIONS OR CHANGES IN HER MEDICATIONS SHE IS ON KEPPRA 2000 MG/DAY, AND TRILEPTAL 900 MG/DAY SHE HAS BEEN ON CIPRO EAR DROPS SINCE FRIDAY FOR AN EAR INFECTION. SHE HAS NOT BEEN DIZZY. SHE IS NOT ON ASPIRIN OR BLOOD THINNERS PCP: [facility] Allergies and Home Medications Allergies Coded Allergies: cephalexin (Verified Allergy, Severe, soa, 07/13/20) topiramate (Unverified Allergy, Intermediate, 04/30/21) hives naproxen (Verified Allergy, Mild, 06/23/22) amoxicillin (Verified Allergy, Unknown, 04/06/19) carbamazepine (Verified Allergy, Unknown, 04/06/19) shellfish derived (Verified Allergy, Unknown, 07/20/19) Penicillins (Unverified Adverse Reaction, Intermediate, 04/06/19) Sulfa (Sulfonamide Antibiotics) (Unverified Adverse Reaction, I ntermediate, 04/06/19) Patient Home Medication List Home Medication List Reviewed: Yes Albuterol Sulfate (Ventolin Hfa) 1 Puff Puff, 2 PUFF IH Q4H Prescribed by: BENEDICTO MARTÍNEZ MD on 02/06/22 0231 Butalb/Acetaminophen/Caffeine (Esgic Capsule) 1 Each Capsule, 2 EACH PO Q6H PRN for headache Prescribed by: CELIA HUGHES on 12/17/19 1631 Cefuroxime Axetil (Cefuroxime) 250 Mg Tablet, 250 MG PO BID Prescribed by: CELIA HUGHES on 07/28/21 191 Clindamycin HCl (Clindamycin HCl) 300 Mg Capsule, 300 MG PO TID Prescribed by: STEF NAVAS on 08/15/20 1646 Cyclobenzaprine HCl (Cyclobenzaprine HCl) 10 Mg Tablet, 10 MG PO Q8H PRN for SPASMS Prescribed by: SHAQ OLSEN on 01/15/21 0025 Cyclobenzaprine HCl (Cyclobenzaprine HCl) 10 Mg Tablet, 10 MG PO Q8H PRN for SPASMS Prescribed by: HAMMAD ROACH on 05/22/22 1108 Doxycycline Hyclate (Doxycycline Hyclate) 100 Mg Tablet, 100 MG PO BID Prescribed by: CELIA HUGHES on 12/08/21 193 Erythromycin Base (Erythromycin Opthalmic Ointment) 5 Mg/Gram (0.5 %) Oint...g., 0 OP Q4H Prescribed by: OLMAN NEWTON on 03/20/22 1121 Fluoxetine HCl (Prozac) 20 Mg Capsule, Unknown Dose PO, (Reported) Entered as Reported by: FATOUMATA LIN on 09/01/19 044 Hydroxyzine Pamoate (Vistaril) 25 Mg Capsule, Unknown Dose PO, (Reported) Entered as Reported by: FATOUMATA LIN on 09/01/19444 Levetiracetam (Keppra) 1,000 Mg Tablet, 1,000 MG PO TID, (Reported) Entered as Reported by: GRISELDA MARTINEZ on 07/15/19 1659 Medroxyprogesterone Acetate (Provera) 10 Mg Tablet, 10 MG PO DAILY Prescribed by: STEF NAVAS on 08/15/20 1647 Metformin HCl (Metformin HCl) 500 Mg Tablet, 500 MG PO BID Prescribed by: CELIA HUGHES on 07/28/21 1837 Mometasone Furoate (Mometasone Furoate) 45 Gm Cream..g., 45 GM TP TID Prescribed by: SHAQ OLSEN on 03/10/20 023 Nitrofurantoin Macrocrystal (Nitrofurantoin) 100 Mg Capsule, 100 MG PO BID Prescribed by: STEF NAVAS on 07/02/21 210 Nitrofurantoin Monohyd/M-Cryst (Macrobid 100 mg Capsule) 100 Mg Capsule, 1 TAB PO BID Prescribed by: SHAQ OLSEN on 06/11/21 0207 Nitrofurantoin Monohyd/M-Cryst (Macrobid 100 mg Capsule) 100 Mg Capsule, 1 TAB PO BID Prescribed by: TRUDY CURRIE on 05/30/22 1907 Nitrofurantoin Monohyd/M-Cryst (Macrobid 100 mg Capsule) 100 Mg Capsule, 1 TAB PO BID Prescribed by: SHAQ OLSEN on 07/21/22 215 Ofloxacin (Floxin (Non-Formulary)) 5 Ml Drops, 3 DROPS RIGHT EAR BID Prescribed by: CELIA HUGHES on 07/05/20 1426 Ondansetron (Ondansetron Odt) 4 Mg Tab.rapdis, 4 MG PO Q6H PRN for NAUS EA/VOMITING Prescribed by: HAMMAD ROACH on 04/30/21 1134 Ondansetron (Ondansetron Odt) 4 Mg Tab.rapdis, 4 MG PO Q4H Prescribed by: SHAQ OLSEN on 07/21/222056 Prednisone (Prednisone) 20 Mg Tab, 40 MG PO DAILY Prescribed by: SHAQ OLSEN on 03/10/20231 Prednisone (Prednisone) 50 Mg Tab, 50 MG PO DAILY Prescribed by: BENEDICTO MARTÍNEZ MD on 02/06/22 023 Review of Systems Review of Systems Constitutional: no symptoms reported EENTM: see HPI Respiratory: no symptoms reported Cardiovascular: no symptoms reported Gastrointestinal: no symptoms reported Genitourinary: no symptoms reported Musculoskeletal: see HPI Skin: no symptoms reported Psychiatric/Neurological: See HPI Hematologic/Lymphatic: No Symptoms Reported Immunological/Allergic: no symptoms reported Past Fvgyqyk-Phutae-Ximqxv Hx Immunizations Up To Date Tetanus Booster (TDap): Less than 5yrs PED Vaccines UTD: Yes Influenza Vaccine Up-to-Date: Yes; Up-to-Date First/Initial COVID19 Vaccinat: DECEMBER 2020 Second COVID19 Vaccination Alex: JANUARY 2021 Third COVID19 Vaccination Date: JUL 2021 Seasonal Allergies Seasonal Allergies: Yes Past Medical History Surgery/Hospitalization HX: Hx seizure disorder. R kidney removed, T/A, HTN, HIGH CHOLESTEROL, HEADACHES, PCOS, ANXIETY/DEPRESSION, PREDIABETIC TESTED + FOR COVID 06/12/22 Surgeries: Yes Adenoidectomy, Ear Surgery, Nephrectomy, Renal, Tonsillectomy Respiratory: No Cardiac: Yes Heart Murmur, High Cholesterol, Hypertension, Irregular Heartbeat Neurological: Yes Headaches /Migraines, Seizure Disorder Last Menstrual Period: Apr 01, 2023 Reproductive Disorders: No Female Reproductive Disorders: Polycystic Ovarian Dis Genitourinary: Yes (only one kidney) Bladder Infection Gastrointestinal: No Musculoskeletal: No Endocrine: Yes (PCOS; MORBID OBESITY; "PREDIABETES" ) HEENT: Yes (S/P BMT'S; DECREASED HEARING IN BOTH EAR;BENIGN TUMOR-ROOF OF MOUTH REMOVED) Chronic Ear Infection Hearing Impairment: Hard of Hearing Cancer: No Psychosocial: Yes Anxiety, Depression Integumentary: Yes (skin issues on lt leg) Blood Disorders: No Family Medical History No Pertinent Family Hx SOCIAL HISTORY: -ETOH--OCCASIONAL USE -DRUGS--DENIES USE -SMOKING--QUIT 2011 ADDITIONAL PAST MEDICAL HISTORY: HAD SEIZURES CHILD AND WAS ON MEDICATIONS UNTIL AGE 10; NO SEIZURES FOR YEARS, THEN STARTED HAVING SEIZURES AGAIN 10/2017, AND HAS BEEN BACK ON SEIZURE MEDICATIONS SINCE THEN. THEY POSSIBLY HAVE BEEN RELATED TO MIGRAINES, BUT ON PREVIOUS ER VISITS, THE SEIZURES HAVE BEEN ALL SELF-REPORTED AND NONE HAVE EVER BEEN WITNESSED AND PT HAS NEVER HAD AN EEG PAST SURGICAL HISTORY: -BMT'S -REMOVAL OF BENIGN TUMOR FROM ROOF OF MOUTH -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 -TONSILLECTOMY AND ADENOIDECTOMY Physical Exam Vital Signs Vital Signs - First Documented 04/01/23 04/01/23 20:36 22:53 Temp 36.8 Pulse 89 Resp 18 B/P (MAP) 148/74 (98) Pulse Ox 97 O2 Delivery Room Air Capillary Refill : Less Than 3 Seconds Height, Weight, BMI Height: 5'5.00" Weight: 260lbs. 0oz. [id number]; 39.00 BMI Method:Actual General Appearance: No Apparent Distress, WD/WN, Obese HEENT: PERRL/EOMI, Other (TM'S CLEAR, BILATERAL EAC'S VERY MINIMALLY INFLAMED, NO DRAINAGE OR EXUDATE. NO SWELLING TO EXTERNAL EARS. ) Neck: Full Range of Motion, Normal Inspection, Non Tender, Supple Respiratory: Normal Breath Sounds, No Accessory Muscle Use, No Respiratory Distress Cardiovascular: Regular Rate, Rhythm, No Murmur Gastrointestinal: Non Tender, Soft Back: Normal Inspection Extremity: Normal Capillary Refill, Normal Range of Motion, No Calf Tenderness, No Pedal Edema, Other (TENDERNESS TO ANTERIOR ASPECT OF RIGHT KNEE, FULL ROM, NO CREPITANCE OR LIGAMENT LAXIETY. 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 ) Skin: Normal Color, Warm/Dry, Other (NO EXTERNAL EVIDENCE OF TRAUMA ANYWHERE) Progress/Results/Core Measures Suspected Sepsis SIRS Temperature: Pulse: 89 Respiratory Rate: 18 Blood Pressure 148 /74 Mean: 98 Results/Orders My Orders Orders - SHAQ OLSEN DO Ct Head Wo-R/O Stroke (04/01/23 21:05) Knee, Right, 3 Views (04/01/23 21:05) Urine Bedside (04/01/23 21:05) Vital Signs/I&O 04/01/23 04/01/23 20:36 22:53 Temp 36.8 37.0 Pulse 89 97 Resp 18 17 B/P (MAP) 148/74 (98) 149/97 Pulse Ox 97 O2 Delivery Room Air Capillary Refill : Less Than 3 Seconds Blood Pressure Mean: 98 Progress Note : Progress Note UNEVENTFUL ER STAY VITALS STABLE NEUROLOGICAL EXAM IS NORMAL NO EVIDENCE OF INTRACRANIAL INJURY, OR BONY INJURY TO KNEE PT IS ABLE TO WALK ON HER OWN DELAY IN OBTAINING RADIOLOGY REPORTS DUE TO ISSUES WITH [employer]PER. DISCUSSED ANTICIPATED COURSE, SYMPTOMATIC TREATMENT, NEED FOR FOLLOW UP, RETURN PRECAUTIONS REVIEWED PRIOR RECORDS, PT WITH A MULTITUDE OF VISITS, MANY FOR SELF-REPORTED SEIZURES. Diagnostic Imaging Comments CT HEAD--PER RADIOLOGIST VIA PHONE AT 0019 -NO ACUTE PROCESS XRAYS RIGHT KNEE--PENDING RADIOLOGIST REVIEW -NO ACUTE PROCESS Reviewed: Reviewed by Me Departure Impression Primary Impression: SELF REPORTED SEIZURE Additional Impression: Right knee pain Disposition: HOME, SELF-CARE Condition: Stable Departure-Patient Inst. Decision time for Depature: 22:35 Referrals: KEYANA PRIETO DO (PCP/Family) Primary Care Physician Patient Instructions: Knee Pain ED, Seizures, Adult (DC) Add. Discharge Instructions: ICE TO AREA AT 20 MINUTE INTERVALS TYLENOL AND MOTRIN NEEDED FOR PAIN CONTINUE YOUR REGULAR MEDICATIONS PRESCRIBED FOLLOW UP WITH [facility] IN 1 WEEK IF NO BETTER All discharge instructions reviewed with patient and/or family. Voiced und erstanding. SHAQ OLSEN DO Apr 01, 2023 21:11
[2023-04-01 22:53] VITALS: BP 149/97
--- NOTE | 2023-04-01 23:40 | Diagnostic Imaging Report ---
CLINICAL INDICATION: Patient with right anterior knee pain. Possible seizure. EXAM: X-ray right knee, 3 views. COMPARISON: X-ray right knee dated 07/15/2019. FINDINGS: There is no acute fracture or dislocation. There is slight progression of spurring involving the patellofemoral compartment. Otherwise, there is no other significant bone or joint abnormality. There is no significant knee effusion. IMPRESSION: There is no acute fracture or dislocation. Dictated by: Dictated on workstation # [id number]
--- NOTE | 2023-04-01 23:40 | Diagnostic Imaging Report ---
CLINICAL INDICATIONS: Patient with right knee pain, numbness and tingling on right side. Patient has history of seizures. Seizures are well controlled until recently. EXAM: Axial CT scan of the brain performed without IV contrast. High-resolution axial CT brain images with sagittal and coronal reformations were also created. Auto Exposure Controls were utilized during the CT exam to meet ALARA standards for radiation dose reduction. COMPARISON: Head CT without contrast dated 07/21/2022. FINDINGS: There is no evidence of acute cerebral infarct, intracranial hemorrhage, or gross mass effect. The brain parenchymal volume appears appropriate for patient's age. There is normal lerner-white matter distinction. There is no significant midline shift or herniation. There is no evidence of hydrocephalus. The basal cisterns are unremarkable. The skull, extracranial soft tissue, and orbits are unremarkable. The paranasal sinuses are unremarkable. Temporal bones show no significant abnormality. IMPRESSION: There is no CT evidence of acute intracranial process. There is no dense vessel sign. Results of this report were discussed with Dr. Liza Anderson via the telephone on 04/01/2023 at 2143 hours. Dictated by: Dictated on workstation # [id number]
== END 2023-04-01 22:51 | disposition home or self-care (01) ==
LOC: EDUNIT# 20:19 → ER 20:20
DX: G40.909 Epilepsy, unspecified, not intractable, without status epilepticus (principal); M25.561 Pain in right knee; H66.90 Otitis media, unspecified, unspecified ear; E66.01 Morbid (severe) obesity due to excess calories; Z68.39 Body mass index [BMI] 39.0-39.9, adult; Z86.16 Personal history of COVID-19; Z87.891 Personal history of nicotine dependence; W22.8XXA Striking against or struck by other objects, initial encounter
CPT/HCPCS: 70450; 73562; 84703

== ENCOUNTER 2023-04-15 20:00 | Emergency (ER) | payer MEDICAID ==
[~2023-04-15] VITALS: Ht 167 cm; Wt 108.0 kg
--- NOTE | 2023-04-15 20:26 | ED Headache ---
General Chief Complaint: Head/Cervical Problems Stated Complaint: MIGRAINE|SEIZURE Source: patient Exam Limitations: no limitations History of Present Illness Date Seen by Provider: Apr 15, 2023 Time Seen by Provider: 20:23 Initial Comments Patient is a 27-year-old female presents ED with headache. She reports diffuse headache. Described as pressure and constant since 6 AM. Pain has intensified throughout the day. She has been taken ibuprofen tile without much improvement. Due to taking her anti-inflammatories she had to witnessed seizures lasting around 15 minutes by her mother. She denies falling and or hitting her head. History of seizures currently takes Keppra and Trileptal. She does follow-up with a neurologist. She has been on migraine medication in the past but not currently taking secondary to not tolerating the medication. She denies worst headache of her life. Sensitivity to light with nausea. Denies vomiting, diarrhea, neck pain, unilateral muscle weakness or sensory changes, chest pain, shortness of breath. Denies any drug use or alcohol use. She states she has been seen for similar type headaches in the past receives IM pain medication with improvement. Denies of any dysuria, materia, increasing frequency. Allergies and Home Medications Allergies Coded Allergies: cephalexin (Verified Allergy, Severe, soa, 07/13/20) topiramate (Unverified Allergy, Intermediate, 04/30/21) hives naproxen (Verified Allergy, Mild, 06/23/22) amoxicillin (Verified Allergy, Unknown, 04/06/19) carbamazepine (Verified Allergy, Unknown, 04/06/19) shellfish derived (Verified Allergy, Unknown, 07/20/19) Penicillins (Unverified Adverse Reaction, Intermediate, 04/06/19) Sulfa (Sulfonamide Antibiotics) (Unverified Adverse Reaction, Intermediate, 04/06/19) Patient Home Medication List Home Medication List Reviewed: Yes Albuterol Sulfate (Ventolin Hfa) 1 Puff Puff, 2 PUFF IH Q4H Prescribed by: BENEDICTO MARTÍNEZ MD on 02/06/22 0231 Butalb/Acetaminophen/Caffeine (Esgic Capsule) 1 Each Capsule, 2 EACH PO Q6H PRN for headache Prescribed by: CELIA HUGHES on 12/17/19 1631 Cefuroxime Axetil (Cefuroxime) 250 Mg Tablet, 250 MG PO BID Prescribed by: CELIA HUGHES on 07/28/21 191 Clindamycin HCl (Clindamycin HCl) 300 Mg Capsule, 300 MG PO TID Prescribed by: STEF NAVAS on 08/15/20 164 Cyclobenzaprine HCl (Cyclobenzaprine HCl) 10 Mg Tablet, 10 MG PO Q8H PRN for SPASMS Prescribed by: SHAQ OLSEN on 01/15/21 0025 Cyclobenzaprine HCl (Cyclobenzaprine HCl) 10 Mg Tablet, 10 MG PO Q8H PRN for SPASMS Prescribed by: HAMMAD ROACH on 05/22/22 1108 Doxycycline Hyclate (Doxycycline Hyclate) 100 Mg Tablet, 100 MG PO BID Prescribed by: CELIA HUGHES on 12/08/211937 Erythromycin Base (Erythromycin Opthalmic Ointment) 5 Mg/Gram (0.5 %) Oint...g., 0 OP Q4H Prescribed by: OLMAN NEWTON on 03/20/22 1121 Fluoxetine HCl (Prozac) 20 Mg Capsule, Unknown Dose PO, (Reported) Entered as Reported by: FATOUMATA LIN on 09/01/19 044 Hydroxyzine Pamoate (Vistaril) 25 Mg Capsule, Unknown Dose PO, (Reported) Entered as Reported by: FATOUMATA LIN on 09/01/19444 Levetiracetam (Keppra) 1,000 Mg Tablet, 1,000 MG PO TID, (Reported) Entered as Reported by: GRISELDA MARTINEZ on 07/15/19 165 Medroxyprogesterone Acetate (Provera) 10 Mg Tablet, 10 MG PO DAILY Prescribed by: STEF NAVAS on 08/15/20 164 Metformin HCl (Metformin HCl) 500 Mg Tablet, 500 MG PO BID Prescribed by: CELIA HUGHES on 07/28/21 183 Mometasone Furoate (Mometasone Furoate) 45 Gm Cream..g., 45 GM TP TID Prescribed by: SHAQ OLSEN on 03/10/20 023 Nitrofurantoin Macrocrystal (Nitrofurantoin) 100 Mg Capsule, 100 MG PO BID Prescribed by: STEF NAVAS on 07/02/21 210 Nitrofurantoin Monohyd/M-Cryst (Macrobid 100 mg Capsule) 100 Mg Capsule, 1 TAB PO BID Prescribed by: SHAQ OLSEN on 06/11/21 0207 Nitrofurantoin Monohyd/M-Cryst (Macrobid 100 mg Capsule) 100 Mg Capsule, 1 TAB PO BID Prescribed by: TRUDY CURRIE on 05/30/22 1907 Nitrofurantoin Monohyd/M-Cryst (Macrobid 100 mg Capsule) 100 Mg Capsule, 1 TAB PO BID Prescribed by: SHAQ OLSEN on 07/21/22 215 Ofloxacin (Floxin (Non-Formulary)) 5 Ml Drops, 3 DROPS RIGHT EAR BID Prescribed by: CELIA HUGHES on 07/05/20 1426 Ondansetron (Ondansetron Odt) 4 Mg Tab.rapdis, 4 MG PO Q6H PRN for NAUSEA/VOMITING Prescribed by: HAMMAD ROACH on 04/30/21 1134 Ondansetron (Ondansetron Odt) 4 Mg Tab.rapdis, 4 MG PO Q4H Prescribed by: SHAQ OLSEN on 07/21/222056 Prednisone (Prednisone) 20 Mg Tab, 40 MG PO DAILY Prescribed by: SHAQ OLSEN on 03/10/20 0232 Prednisone (Prednisone) 50 Mg Tab, 50 MG PO DAILY Prescribed by: BENEDICTO MARTÍNEZ MD on 02/06/22 023 Review of Systems Review of Systems Constitutional: No chills, No diaphoresis, No fever, No malaise, No weakness Eyes: Denies Blindness, Denies Blurred Vision, Denies Drainage, Denies Decreased Acuity; Photophobia Ears, Nose, Mouth, Throat: denies ear pain, denies ear discharge Respiratory: No cough, No dyspnea on exertion Cardiovascular: No chest pain Gastrointestinal: No abdominal pain, No diarrhea, No nausea Genitourinary: No decreased output, No discharge Musculoskeletal: No back pain, No joint pain Psychiatric/Neurological: Headache, Seizure Past Wyvihvd-Aqbfyy-Zyktfx Hx Immunizations Up To Date Tetanus Booster (TDap): Less than 5yrs PED Vaccines UTD: Yes First/Initial COVID19 Vaccinat: DECEMBER 2020 Second COVID19 Vaccination Alex: JANUARY 2021 Third COVID19 Vaccination Date: JUL 2021 Seasonal Allergies Seasonal Allergies: Yes Past Medical History Surgery/Hospitalization HX: Hx seizure disorder. R kidney removed, T/A, HTN, HIGH CHOLESTEROL, HEADACHES, PCOS, ANXIETY/DEPRESSION, PREDIABETIC TESTED + FOR COVID 06/12/22 Surgeries: Yes Adenoidectomy, Ear Surgery, Nephrectomy, Renal, Tonsillectomy Respiratory: No Cardiac: Yes Heart Murmur, High Cholesterol, Hypertension, Irregular Heartbeat Neurological: Yes Headaches /Migraines, Seizure Disorder Reproductive Disorders: No Female Reproductive Disorders: Polycystic Ovarian Dis Genitourinary: Yes (only one kidney) Bladder Infection Gastrointestinal: No Musculoskeletal: No Endocrine: Yes (PCOS; MORBID OBESITY; "PREDIABETES" ) HEENT: Yes (S/P BMT'S; DECREASED HEARING IN BOTH EAR;BENIGN TUMOR-ROOF OF MOUTH REMOVED) Chronic Ear Infection Hearing Impairment: Hard of Hearing Cancer: No Psychosocial: Yes Anxiety, Depression Integumentary: Yes (skin issues on lt leg) Blood Disorders: No Family Medical History No Pertinent Family Hx SOCIAL HISTORY: -ETOH--OCCASIONAL USE -DRUGS--DENIES USE -SMOKING--QUIT 2011 ADDITIONAL PAST MEDICAL HISTORY: HAD SEIZURES CHILD AND WAS ON MEDICATIONS UNTIL AGE 10; NO SEIZURES FOR YEARS, THEN STARTED HAVING SEIZURES AGAIN 10/2017, AND HAS BEEN BACK ON SEIZURE MEDICATIONS SINCE THEN. THEY POSSIBLY HAVE BEEN RELATED TO MIGRAINES, BUT ON PREVIOUS ER VISITS, THE SEIZURES HAVE BEEN ALL SELF-REPORTED AND NONE HAVE EVER BEEN WITNESSED AND PT HAS NEVER HAD AN EEG PAST SURGICAL HISTORY: -BMT'S -REMOVAL OF BENIGN TUMOR FROM ROOF OF MOUTH -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 -TONSILLECTOMY AND ADENOIDECTOMY Physical Exam Vital Signs Capillary Refill : Height, Weight, BMI Height: 5'5.00" Weight: 260lbs. 0oz. 117.297299pn; 39.00 BMI Method:Actual General Appearance: WD/WN, no apparent distress HEENT: PERRL/EOMI, normal ENT inspection, TMs normal, pharynx normal Neck: non-tender, full range of motion, supple Cardiovascular: regular rate, rhythm, no edema, no gallop, no JVD Respiratory: chest non-tender, lungs clear, normal breath sounds, no respiratory distress Gastrointestinal: normal bowel sounds, non tender, soft Back: normal inspection, no CVA tenderness, no vertebral tenderness Extremities: normal range of motion, non-tender, normal inspection, no pedal edema Crainal Nerves: normal hearing, normal speech, PERRL Coordination/Gait: normal finger to nose, normal gait Motor/Sensory: no motor deficit, no sensory deficit Skin: normal color, warm/dry Progress/Results/Core Measures Results/Orders My Orders Orders - AMANDA RUIZ Ketorolac Injection (Toradol Injection) (04/15/23 20:30) Diphenhydramine Tablet (Benadryl Tablet) (04/15/23 20:30) Prochlorperazine Injection (Compazine In (04/15/23 20:30) Medications Given in ED Current Medications Medications Dose Ordered Sig/Kayode Route Start Time Stop Time Status Last Admin Dose Admin Diphenhydramine HCl 25 mg ONCE ONCE PO 04/15/23 20:30 04/15/23 20:31 DC 04/15/23 20:40 25 MG Ketorolac Tromethamine 30 mg ONCE ONCE IM 04/15/23 20:30 04/15/23 20:31 DC 04/15/23 20:41 30 MG Prochlorperazine Edisylate 10 mg ONCE ONCE IM 04/15/23 20:30 04/15/23 20:31 DC 04/15/23 20:41 10 MG Departure Communication (PCP) Reviewed previous ER visits, H&P, lab testing. Differential diagnosis migraine, seizure. Currently on Keppra and Trileptal. She is not postictal. She walks with a steady gait. No focal neural deficit. She reports headache since 6 AM this morning. No improvement with ibuprofen or Tylenol. 2 witnessed seizures earlier this afternoon. She is currently medicated. Seizure precaution. Recei estela a migraine cocktail as she has a history of similar type headaches. Photophobia. No neurological red flag findings. No further imaging at this time. Improvement of headache after Toradol, Compazine and Benadryl. She is requesting to be discharged. Discussed Excedrin Migraine. Continue monitoring symptoms at home. If any worsening symptoms return back to ED for further e valuation. Follow-up with your PCP in 2 to 3 days for reevaluation. Impression Primary Impression: Migraine Additional Impression: Seizure Disposition: 01 HOME, SELF-CARE Condition: Stable Departure-Patient Inst. Decision time for Depature: 20:33 Referrals: KEYANA PRIETO DO (PCP/Family) Primary Care Physician Patient Instructions: Migraines (DC) Add. Discharge Instructions: Continue with your seizure medication. Recommend Excedrin Migraine at home. If any worsening symptoms return back to the ED. All discharge instructions reviewed with patient and/or family. Voiced understanding. AMANDA RUIZ Apr 15, 2023 20:26
[2023-04-15] MEDS ORDERED: PROCHLORPERAZINE 10 MG/2ML INJ (COMPAZINE) IM ONE (20:30)
[2023-04-15] MEDS ORDERED: diphenhydrAMINE 25 MG TAB (BENADRYL) PO ONE (20:30)
[2023-04-15] MEDS ORDERED: KETOROLAC 30 MG/ML VIAL IM ONE (20:30)
[2023-04-15 21:15] VITALS: BP 138/75
== END 2023-04-15 21:15 | disposition home or self-care (01) ==
LOC: EDUNIT# 20:00 → ER 20:02
DX: G43.909 Migraine, unspecified, not intractable, without status migrainosus (principal); G40.909 Epilepsy, unspecified, not intractable, without status epilepticus; E66.01 Morbid (severe) obesity due to excess calories; Z68.39 Body mass index [BMI] 39.0-39.9, adult; Z79.899 Other long term (current) drug therapy; Z87.891 Personal history of nicotine dependence; Z86.16 Personal history of COVID-19; Z88.6 Allergy status to analgesic agent
CPT/HCPCS: 99284

== ENCOUNTER 2023-05-21 20:26 | Emergency (ER) | payer MEDICAID ==
--- NOTE | 2023-05-21 20:50 | ED Head Injury ---
General Chief Complaint: Head/Cervical Problems Stated Complaint: SEIZURE/HIT HEAD Source: patient Exam Limitations: no limitations (AMANDA RUIZ) History of Present Illness Date Seen by Provider: May 21, 2023 Time Seen by Provider: 20:46 Initial Comments Patient is a 27-year-old female with a history of seizures who presents to the ED for 2 seizures this evening. The patient states she had a seizure about 815. She was at home at the time. This was witnessed by her "puppy". She states unknown length of seizures. She woke up with her puppy and her face. She fell and hit the side of the wall and the back part of her head on the floor. Patient states she tried to make her something to eat had another seizure which was witnessed by her "puppy" since she was up near her face after the fall. She also states her mother witnessed the seizure. She does take Keppra 2000 mg daily as well as Trileptal 900 mg daily. She is complaining of headache, nausea, dizziness and blurry vision which sometimes happens after her seizures. She denies any chest pain, cough, shortness of breath, Uziel pain, vomiting, diarrhea, drug use or alcohol use. She states she has been seen here multiple times for her seizures. She does follow up with a neurologist at [facility] and her primary care physician Dr. Prieto. 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 (AMANDA RUIZ) Allergies and Home Medications Allergies Coded Allergies: cephalexin (Verified Allergy, Severe, soa, 07/13/20) topiramate (Unverified Allergy, Intermediate, 04/30/21) hives naproxen (Verified Allergy, Mild, 06/23/22) amoxicillin (Verified Allergy, Unknown, 04/06/19) carbamazepine (Verified Allergy, Unknown, 04/06/19) shellfish derived (Verified Allergy, Unknown, 07/20/19) Penicillins (Unverified Adverse Reaction, Intermediate, 04/06/19) Sulfa (Sulfonamide Antibiotics) (Unverified Adverse Reaction, Intermediate, 04/06/19) Patient Home Medication List Home Medication List Reviewed: Yes (AMANDA RUIZ) Albuterol Sulfate (Ventolin Hfa) 1 Puff Puff, 2 PUFF IH Q4H Prescribed by: BENEDICTO MARTÍNEZ MD on 02/06/22 0231 Butalb/Acetaminophen/Caffeine (Esgic Capsule) 1 Each Capsule, 2 EACH PO Q6H PRN for headache Prescribed by: CELIA HUGHES on 12/17/19 1631 Cefuroxime Axetil (Cefuroxime) 250 Mg Tablet, 250 MG PO BID Prescribed by: CELIA HUGHES on 07/28/21 191 Clindamycin HCl (Clindamycin HCl) 300 Mg Capsule, 300 MG PO TID Prescribed by: STEF NAVAS on 08/15/20 164 Cyclobenzaprine HCl (Cyclobenzaprine HCl) 10 Mg Tablet, 10 MG PO Q8H PRN for SPASMS Prescribed by: SHAQ OLSEN on 01/15/21 0025 Cyclobenzaprine HCl (Cyclobenzaprine HCl) 10 Mg Tablet, 10 MG PO Q8H PRN for SPASMS Prescribed by: HAMMAD ROACH on 05/22/22 1108 Doxycycline Hyclate (Doxycycline Hyclate) 100 Mg Tablet, 100 MG PO BID Prescribed by: CELIA HUGHES on 12/08/21 193 Erythromycin Base (Erythromycin Opthalmic Ointment) 5 Mg/Gram (0.5 %) Oint...g., 0 OP Q4H Prescribed by: OLMAN NEWTON on 03/20/22 1121 Fluoxetine HCl (Prozac) 20 Mg Capsule, Unknown Dose PO, (Reported) Entered as Reported by: FATOUMATA LIN on 09/01/19444 Hydroxyzine Pamoate (Vistaril) 25 Mg Capsule, Unknown Dose PO, (Reported) Entered as Reported by: FATOUMATA LIN on 09/01/19444 Levetiracetam (Keppra) 1,000 Mg Tablet, 1,000 MG PO TID, (Reported) Entered as Reported by: GRISELDA MARTINEZ on 07/15/19 165 Medroxyprogesterone Acetate (Provera) 10 Mg Tablet, 10 MG PO DAILY Prescribed by: STEF NAVAS on 08/15/20 164 Metformin HCl (Metformin HCl) 500 Mg Tablet, 500 MG PO BID Prescribed by: CELIA HUGHES on 07/28/21 183 Mometasone Furoate (Mometasone Furoate) 45 Gm Cream..g., 45 GM TP TID Prescribed by: SHAQ OLSEN on 03/10/20 023 Nitrofurantoin Macrocrystal (Nitrofurantoin) 100 Mg Capsule, 100 MG PO BID Prescribed by: STEF NAVAS on 07/02/212100 Nitrofurantoin Monohyd/M-Cryst (Macrobid 100 mg Capsule) 100 Mg Capsule, 1 TAB PO BID Prescribed by: SHAQ OSLEN on 06/11/21 0207 Nitrofurantoin Monohyd/M-Cryst (Macrobid 100 mg Capsule) 100 Mg Capsule, 1 TAB PO BID Prescribed by: TRUDY CURRIE on 05/30/22 190 Nitrofurantoin Monohyd/M-Cryst (Macrobid 100 mg Capsule) 100 Mg Capsule, 1 TAB PO BID Prescribed by: SHAQ OLSEN on 07/21/22 215 Ofloxacin (Floxin (Non-Formulary)) 5 Ml Drops, 3 DROPS RIGHT EAR BID Prescribed by: CELIA HUGHES on 07/05/20 1426 Ondansetron (Ondansetron Odt) 4 Mg Tab.rapdis, 4 MG PO Q6H PRN for NAUSEA/VOMITING Prescribed by: HAMMAD ROACH on 04/30/21 1134 Ondansetron (Ondansetron Odt) 4 Mg Tab.rapdis, 4 MG PO Q4H Prescribed by: SHAQ OLSEN on 07/21/222056 Prednisone (Prednisone) 20 Mg Tab, 40 MG PO DAILY Prescribed by: SHAQ OLSEN on 03/10/20231 Prednisone (Prednisone) 50 Mg Tab, 50 MG PO DAILY Prescribed by: BENEDICTO MARTÍNEZ MD on 02/06/22 023 Review of Systems Review of Systems Constitutional: No chills, No diaphoresis, No malaise, No weakness Eyes: Blurred Vision; Denies Drainage Ears, Nose, Mouth, Throat: denies ear pain Respiratory: No cough, No dyspnea on exertion Cardiovascular: No chest pain Gastrointestinal: No abdominal pain, No diarrhea, No nausea, No vomiting Genitourinary: No decreased output, No discharge Musculoskeletal: No back pain, No joint pain; muscle pain Skin: No change in color, No change in hair/nails Psychiatric/Neurological: Petit Mal Seizures (AMANDA RUIZ) All Other Systems Reviewed Negative Unless Noted: Yes (AMANDA RUIZ) Past Udmbvcw-Pehoig-Kjrsyl Hx Immunizations Up To Date Tetanus Booster (TDap): Less than 5yrs PED Vaccines UTD: Yes First/Initial COVID19 Vaccinat: DECEMBER 2020 Second COVID19 Vaccination Alex: JANUARY 2021 Third COVID19 Vaccination Date: JUL 2021 (AMANDA RUIZ) Seasonal Allergies Seasonal Allergies: Yes (AMANDA RUIZ) Past Medical History Surgery/Hospitalization HX: Hx seizure disorder. R kidney removed, T/A, HTN, HIGH CHOLESTEROL, HEADACHES, PCOS, ANXIETY/DEPRESSION, PREDIABETIC TESTED + FOR COVID 06/12/22 Surgeries: Yes Adenoidectomy, Ear Surgery, Nephrectomy, Renal, Tonsillectomy Respiratory: No Cardiac: Yes Heart Murmur, High Cholesterol, Hypertension, Irregular Heartbeat Neurological: Yes Headaches /Migraines, Seizure Disorder Reproductive Disorders: No Female Reproductive Disorders: Polycystic Ovarian Dis Genitourinary: Yes (only one kidney) Bladder Infection Gastrointestinal: No Musculoskeletal: No Endocrine: Yes (PCOS; MORBID OBESITY; "PREDIABETES" ) HEENT: Yes (S/P BMT'S; DECREASED HEARING IN BOTH EAR;BENIGN TUMOR-ROOF OF MOUTH REMOVED) Chronic Ear Infection Hearing Impairment: Hard of Hearing Cancer: No Psychosocial: Yes Anxiety, Depression Integumentary: Yes (skin issues on lt leg) Blood Disorders: No (AMANDA RUIZ) Family Medical History No Pertinent Family Hx SOCIAL HISTORY: -ETOH--OCCASIONAL USE -DRUGS--DENIES USE -SMOKING--QUIT 2011 ADDITIONAL PAST MEDICAL HISTORY: HAD SEIZURES CHILD AND WAS ON MEDICATIONS UNTIL AGE 10; NO SEIZURES FOR YEARS, THEN STARTED HAVING SEIZURES AGAIN 10/2017, AND HAS BEEN BACK ON SEIZURE MEDICATIONS SINCE THEN. THEY POSSIBLY HAVE BEEN RELATED TO MIGRAINES, BUT ON PREVIOUS ER VISITS, THE SEIZURES HAVE BEEN ALL SELF-REPORTED AND NONE HAVE EVER BEEN WITNESSED AND PT HAS NEVER HAD AN EEG PAST SURGICAL HISTORY: -BMT'S -REMOVAL OF BENIGN TUMOR FROM ROOF OF MOUTH -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 -TONSILLECTOMY AND ADENOIDECTOMY (AMANDA RUIZ) Physical Exam Vital Signs Vital Signs - First Documented 05/21/23 20:37 Pulse 86 Resp 16 B/P (MAP) 152/110 (124) Pulse Ox 100 O2 Delivery Room Air (STEF MCKNIGHT MD) Vital Signs Capillary Refill : (AMANDA RUIZ) Height, Weight, BMI Height: 5'5.00" Weight: 260lbs. 0oz. 117.566080gd; 38.00 BMI Method:Actual General Appearance: WD/WN, no apparent distress HEENT: PERRL/EOMI, normal ENT inspection, TMs normal, pharynx normal, other (Posterior head tenderness without contusion, swelling or bruising. Bilateral cervical paraspinal muscle tenderness. Normal active range of motion.) Neck: full range of motion, other (Bilateral cervical paraspinal muscle tenderness. Normal range of motion.) Cardiovascular: regular rate, rhythm, no edema, no gallop, no JVD Respiratory: chest non-tender, lungs clear, normal breath sounds, no respiratory distress Gastrointestinal: normal bowel sounds, non tender, soft, no organomegaly Back: normal inspection, no CVA tenderness, no vertebral tenderness Extremities: normal range of motion, non-tender, normal inspection, no pedal edema Coordination/Gait: normal finger to nose Motor/Sensory: no motor deficit, no sensory deficit, no pronator drift Skin: normal color, warm/dry (AMANDA RUIZ) Progress/Results/Core Measures Results/Orders Medications Given in ED Current Medications Medications Dose Ordered Sig/Kayode Route Start Time Stop Time Status Last Admin Dose Admin Acetaminophen 1,000 mg ONCE ONCE PO 05/21/23 21:00 05/21/23 21:01 DC 05/21/23 21:00 1,000 MG Ondansetron HCl 4 mg ONCE ONCE PO 05/21/23 21:00 05/21/23 21:01 DC 05/21/23 21:00 4 MG (STEF MCKNIGHT MD) Vital Signs/I&O 05/21/23 05/21/23 20:37 21:33 Pulse 86 78 Resp 16 16 B/P (MAP) 152/110 (124) 145/98 Pulse Ox 100 100 O2 Delivery Room Air Room Air (STEF MCKNIGHT MD) Departure Communication (PCP) Reviewed previous ER visits, H&P, lab testing. Differential diagnosis head injury, seizure. No meningeal signs. No recent URI . history of seizures. Currently on Keppra 2000 mg and Trileptal 900 mg. Patient has been seen here several times for seizures. She reportedly had 2 seizures this evening witnessed by her puppy and mother. She fell and hit her head on th floor and wall. She complaining of headache blurry vision dizziness. Due to mechanism of injury and complaint CT scan the head and cervical neck was ordered. She had no cervical midline tenderness or any focal neural deficits. Denies chest pain or shortness of breath. Patient with a stable gait. She does not appear postictal. She is alert and oriented X4. GCS of 15. History of seizures. No further lab work was ordered at this time. Seizure precautions. Vital signs stable. CT scan of the head and cervical neck was negative for acute abnormality. She did receive Zofran and Tylenol with improvement of her head pain. She continued to remain stable here. Observed patient. She does still report a mild headache but does not want any further treatment at this time. She feels comfortable to be discharged. Suggest contacting her neurology for further evaluation. If any worsening symptoms return back to ED for further evaluation. (AMANDA RUIZ) Impression Primary Impression: Injury of head and neck Additional Impression: Seizure Disposition: 01 HOME, SELF-CARE Condition: Stable Departure-Patient Inst. Decision time for Depature: 21:28 (AMANDA RUIZ) Referrals: KEYANA PRIETO DO (PCP/Family) Primary Care Physician Patient Instructions: Seizures, Adult (DC) Add. Discharge Instructions: Continue with your medication. Follow-up your PCP for further evaluation for the seizures. Tylenol or ibuprofen for headache. Rest at home. All discharge instructions reviewed with patient and/or family. Voiced understanding. ATTENDING PHYSICIAN NOTE: I was physically present as attending physician in the emergency department during the care of this patient, but I was not directly involved in the decision making or delivery of care for this patient. (STEF MCKNIGHT MD) AMANDA RUIZ May 21, 2023 20:50 STEF MCKNIGHT MD May 21, 2023 22:00
[2023-05-21] MEDS ORDERED: ONDANSETRON 4 MG (ZOFRAN) ORAL DISSOLVE TAB PO ONE (21:00)
[2023-05-21] MEDS ORDERED: ACETAMINOPHEN 500 MG TABLET PO ONE (21:00)
--- NOTE | 2023-05-21 21:26 | Diagnostic Imaging Report ---
PROCEDURE: CT head and CT cervical spine without contrast. TECHNIQUE: Multiple contiguous axial images were obtained through the brain and cervical spine without the use of intravenous contrast. Sagittal and coronal reformations through the cervical spine were then performed. Auto Exposure Controls were utilized during the CT exam to meet ALARA standards for radiation dose reduction. INDICATION: Head and neck pain, fall after seizure. COMPARISON: 04/01/2023. FINDINGS: CT HEAD: The ventricles and cortical sulci are age-appropriate. There is no midline shift or mass effect. No acute intracranial hemorrhage is seen. There is no CT evidence of acute territorial ischemia. The calvarium appears intact. Visualized paranasal sinuses are clear. CT CERVICAL SPINE: There is reversal of the cervical lordosis centered at C5. There is no spondylolisthesis. There are mild degenerative changes at C6-C7. Vertebral body heights are preserved. No acute fracture is seen. No bony fragments or hyperdense fluid collection is seen in the spinal canal. Surrounding soft tissues demonstrate no acute abnormality. IMPRESSION: 1. No acute intracranial hemorrhage or calvarium fracture. 2. No acute osseous abnormality seen in the cervical spine. Dictated by: Dictated on workstation # [id number]
[2023-05-21 21:33] VITALS: BP 145/98
== END 2023-05-21 21:33 | disposition home or self-care (01) ==
LOC: EDUNIT# 20:26 → ER 20:28
DX: S09.90XA Unspecified injury of head, initial encounter (principal); S19.9XXA Unspecified injury of neck, initial encounter; G40.909 Epilepsy, unspecified, not intractable, without status epilepticus; E66.01 Morbid (severe) obesity due to excess calories; Z87.891 Personal history of nicotine dependence; Z86.16 Personal history of COVID-19; Z68.38 Body mass index [BMI] 38.0-38.9, adult; Z79.899 Other long term (current) drug therapy; W22.01XA Walked into wall, initial encounter; W18.30XA Fall on same level, unspecified, initial encounter; Y92.009 Unspecified place in unspecified non-institutional (private) residence as the place of occurrence of the external cause
CPT/HCPCS: 70450; 72125; 84703

== ENCOUNTER 2023-05-29 11:38 | Emergency (ER) | payer MEDICAID ==
[~2023-05-29] VITALS: Ht 166 cm; Wt 100.0 kg
--- NOTE | 2023-05-29 12:18 | ED EENT ---
History of Present Illness General Chief Complaint: Ear Problems Stated Complaint: BILAT EAR PAIN Source: patient Exam Limitations: no limitations History of Present Illness Date Seen by Provider: May 29, 2023 Time Seen by Provider: 12:04 Initial Comments 27-year-old female presents the ER with complaints of bilateral ear pain since last 05/23/2023. She states that she has been taking her allergy meds thinking that it might be due to allergies. She reports that this morning she had blood coming out of both of her ears. She denies fevers. She reports she has been taking Tylenol and ibuprofen for pain. She states that she has had decreased hearing for a while, she saw ENT and an cake washer last year who tested her hearing and told her she had normal hearing. She states she had another hearing test done last August which showed decreased hearing in 1 ear. Patient reports she feels as though she has to struggle to hear, she states she has to read peoples lips. During part of my assessment, I had my back turned to the patient and was conversing with her, she did not have any difficulty hearing me when my back was turned. When I was talking to her [id number]-jdwq again and told her that she had no difficulty hearing me when my back was trying, she tried tell me again that she was having difficulty hearing me. Allergies and Home Medications Allergies Coded Allergies: cephalexin (Verified Allergy, Severe, soa, 07/13/20) divalproex sodium (Verified Allergy, Severe, Hives, 05/29/23) topiramate (Unverified Allergy, Intermediate, 04/30/21) hives naproxen (Verified Allergy, Mild, 06/23/22) amoxicillin (Verified Allergy, Unknown, 04/06/19) carbamazepine (Verified Allergy, Unknown, 04/06/19) shellfish derived (Verified Allergy, Unknown, 07/20/19) Penicillins (Unverified Adverse Reaction, Intermediate, 04/06/19) Sulfa (Sulfonamide Antibiotics) (Unverified Adverse Reaction, Intermediate, 04/06/19) Patient Home Medication List Home Medication List Reviewed: Yes Albuterol Sulfate (Ventolin Hfa) 1 Puff Puff, 2 PUFF IH Q4H Prescribed by: BENEDICTO MARTÍNEZ MD on 02/06/22 0231 Butalb/Acetaminophen/Caffeine (Esgic Capsule) 1 Each Capsule, 2 EACH PO Q6H PRN for headache Prescribed by: CELIA HUGHES on 12/17/19 1631 Cefuroxime Axetil (Cefuroxime) 250 Mg Tablet, 250 MG PO BID Prescribed by: CELIA HUGHES on 07/28/21 191 Ciprofloxacin HCl/Dexameth (Ciproflox-Dexameth Otic Susp) 0.3 %-0.1 % Drops.susp, 3 DROPS OT BID Prescribed by: Rosi Hernandez on 05/29/23 1223 Clindamycin HCl (Clindamycin HCl) 300 Mg Capsule, 300 MG PO TID Prescribed by: STEF NAVAS on 08/15/20 1646 Cyclobenzaprine HCl (Cyclobenzaprine HCl) 10 Mg Tablet, 10 MG PO Q8H PRN for SPASMS Prescribed by: SHAQ OLSEN on 01/15/21 0025 Cyclobenzaprine HCl (Cyclobenzaprine HCl) 10 Mg Tablet, 10 MG PO Q8H PRN for SPASMS Prescribed by: HAMMAD ROACH on 05/22/22 1108 Doxycycline Hyclate (Doxycycline Hyclate) 100 Mg Tablet, 100 MG PO BID Prescribed by: CELIA HUGHES on 12/08/21 1938 Erythromycin Base (Erythromycin Opthalmic Ointment) 5 Mg/Gram (0.5 %) Oint...g., 0 OP Q4H Prescribed by: OLMAN NEWTON on 03/20/22 1121 Fluoxetine HCl (Prozac) 20 Mg Capsule, Unknown Dose PO, (Reported) Entered as Reported by: FATOUMATA LIN on 09/01/19 044 Hydroxyzine Pamoate (Vistaril) 25 Mg Capsule, Unknown Dose PO, (Reported) Entered as Reported by: FATOUMATA LIN on 09/01/19 044 Levetiracetam (Keppra) 1,000 Mg Tablet, 1,000 MG PO TID, (Reported) Entered as Reported by: GRISELDA MARTINEZ on 07/15/19 165 Medroxyprogesterone Acetate (Provera) 10 Mg Tablet, 10 MG PO DAILY Prescribed by: STEF NAVAS on 08/15/20 1647 Metformin HCl (Metformin HCl) 500 Mg Tablet, 500 MG PO BID Prescribed by: CELIA HUGHES on 07/28/21 1837 Mometasone Furoate (Mometasone Furoate) 45 Gm Cream..g., 45 GM TP TID Prescribed by: SHAQ OLSEN on 03/10/20 023 Nitrofurantoin Macrocrystal (Nitrofurantoin) 100 Mg Capsule, 100 MG PO BID Prescribed by: STEF NAVAS on 07/02/21 210 Nitrofurantoin Monohyd/M-Cryst (Macrobid 100 mg Capsule) 100 Mg Capsule, 1 TAB PO BID Prescribed by: SHAQ OLSEN on 06/11/21 0207 Nitrofurantoin Monohyd/M-Cryst (Macrobid 100 mg Capsule) 100 Mg Capsule, 1 TAB PO BID Prescribed by: TRUDY CURRIE on 05/30/22 190 Nitrofurantoin Monohyd/M-Cryst (Macrobid 100 mg Capsule) 100 Mg Capsule, 1 TAB PO BID Prescribed by: SHAQ OLSEN on 07/21/22 215 Ofloxacin (Floxin (Non-Formulary)) 5 Ml Drops, 3 DROPS RIGHT EAR BID Prescribed by: CELIA HUGHES on 07/05/20 1426 Ondansetron (Ondansetron Odt) 4 Mg Tab.rapdis, 4 MG PO Q6H PRN for NAUSEA/VOMITING Prescribed by: HAMMAD ROACH on 04/30/21 1134 Ondansetron (Ondansetron Odt) 4 Mg Tab.rapdis, 4 MG PO Q4H Prescribed by: SHAQ OLSEN on 07/21/222056 Prednisone (Prednisone) 20 Mg Tab, 40 MG PO DAILY Prescribed by: SHAQ OLSEN on 03/10/20231 Prednisone (Prednisone) 50 Mg Tab, 50 MG PO DAILY Prescribed by: BENEDICTO MARTÍNEZ MD on 02/06/22 023 Review of Systems Review of Systems Constitutional: see HPI Past Veeujqn-Kpxyew-Jaqppp Hx Patient Social History Tobacco Use?: No Use of E-Cig and/or Vaping dev: No Substance use?: No Alcohol Use?: No Pt feels they are or have been: No Immunizations Up To Date Tetanus Booster (TDap): Less than 5yrs PED Vaccines UTD: Yes Influenza Vaccine Up-to-Date: No; Not Current First/Initial COVID19 Vaccinat: DECEMBER 2020 Second COVID19 Vaccination Alex: JANUARY 2021 Third COVID19 Vaccination Date: JUL 2021 Seasonal Allergies Seasonal Allergies: Yes Past Medical History Surgery/Hospitalization HX: Hx seizure disorder. R kidney removed, HTN, HIGH CHOLESTEROL,HEADACHES,PCOS, ANXIETY/DEPRESSION, PREDIABETIC SX HISTORYTUBES IN EARS, RIGHT KIDNEY REMOVAL, DENTAL, "TUMOR REMOVED FROM TOP OF MOUTH", TONSILS AND ADNOIDS Surgeries: Yes Adenoidectomy, Ear Surgery, Nephrectomy, Renal, Tonsillectomy Respiratory: No Cardiac: Yes Heart Murmur, High Cholesterol, Hypertension, Irregular Heartbeat Neurological: Yes Headaches /Migraines, Seizure Disorder Reproductive Disorders: No Female Reproductive Disorders: Polycystic Ovarian Dis Genitourinary: Yes (only one kidney) Bladder Infection Gastrointestinal: No Musculoskeletal: No Endocrine: Yes (PCOS; MORBID OBESITY; "PREDIABETES" ) HEENT: Yes (S/P BMT'S; DECREASED HEARING IN BOTH EAR;BENIGN TUMOR-ROOF OF MOUTH REMOVED) Chronic Ear Infection Hearing Impairment: Hard of Hearing Cancer: No Psychosocial: Yes Anxiety, Depression Integumentary: Yes (skin issues on lt leg) Blood Disorders: No Family Medical History No Pertinent Family Hx SOCIAL HISTORY: -ETOH--OCCASIONAL USE -DRUGS--DENIES USE -SMOKING--QUIT 2011 ADDITIONAL PAST MEDICAL HISTORY: HAD SEIZURES CHILD AND WAS ON MEDICATIONS UNTIL AGE 10; NO SEIZURES FOR YEARS, THEN STARTED HAVING SEIZURES AGAIN 10/2017, AND HAS BEEN BACK ON SEIZURE MEDICATIONS SINCE THEN. THEY POSSIBLY HAVE BEEN RELATED TO MIGRAINES, BUT ON PREVIOUS ER VISITS, THE SEIZURES HAVE BEEN ALL SELF-REPORTED AND NONE HAVE EVER BEEN WITNESSED AND PT HAS NEVER HAD AN EEG PAST SURGICAL HISTORY: -BMT'S -REMOVAL OF BENIGN TUMOR FROM ROOF OF MOUTH -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 -TONSILLECTOMY AND ADENOIDECTOMY Physical Exam Vital Signs Vital Signs - First Documented 05/29/23 11:50 Temp 37.0 Pulse 65 Resp 18 B/P (MAP) 133/75 (94) Pulse Ox 96 O2 Delivery Room Air Height, Weight, BMI Height: 5'5.00" Weight: 260lbs. 0oz. 117.202869ol; 38.00 BMI Method:Actual General Appearance: WD/WN, no apparent distress Ears: bilateral ear erythema (Erythema of canal), bilateral ear TM dull, bilateral ear TM red (Mild redness, looks like allergies), bilateral ear other (No bleeding, no obvious drainage, no perforation of TM, some cerumen noted in canal) Neck: supple, normal inspection Cardiovascular: regular rate, rhythm Respiratory: lungs clear, normal breath sounds, no respiratory distress, no accessory muscle use Neurologic/Psychiatric: alert, normal mood/affect Skin: normal color, warm/dry Progress/Results/Core Measures Results/Orders Vital Signs/I&O 05/29/23 05/29/23 11:50 12:45 Temp 37.0 Pulse 65 68 Resp 18 16 B/P (MAP) 133/75 (94) 131/77 Pulse Ox 96 97 O2 Delivery Room Air Room Air Progress Progress Note : Progress Note Patient seen and evaluated, resting comfortably in bed, no acute distress. Based on exam and symptoms, will treat for otitis externa due to irritation of bilateral canals. No obvious drainage or bleeding. No perforation of TM. TMs are dull, mild redness that looks like allergies, no bulging of TMs, no loss of landmarks. Patient was able to hear this provider well during assessment, even when my back was turned to her. She did not seem to have any difficulty hearing. Patient instructed to follow-up with ENT and audiology for concerns of decreased hearing. Discharge instructions and return precautions provided. Departure Impression Primary Impression: Otitis externa Qualified Codes: H60.503 - Unspecified acute noninfective otitis externa, bilateral Disposition: 01 HOME, SELF-CARE Condition: Stable Departure-Patient Inst. Decision time for Depature: 12:18 Referrals: KEYANA PRIETO DO (PCP/Family) Primary Care Physician Patient Instructions: Outer ear infection Add. Discharge Instructions: Complete full course of antibiotic as directed. Follow-up with ENT or audiology regarding your decreased hearing. Follow-up with your primary care provider. Return for any new, concerning, or worsening symptoms. All discharge instructions reviewed with patient and/or family. Voiced understanding. Scripts Ciprofloxacin HCl/Dexameth (Ciproflox-Dexameth Otic Susp) 0.3 %-0.1 % Drops.susp 3 DROPS OT BID for 7 Days, #42 DROPS 0 Refills Prov: ROSI MCKENZIE APRN 05/29/23 ROSI MCKENZIE APRN May 29, 2023 12:17
[2023-05-29] MEDS ORDERED: CIPR7.5D6 OT (12:23)
[2023-05-29 12:45] VITALS: BP 131/77
== END 2023-05-29 12:45 | disposition home or self-care (01) ==
LOC: EDUNIT# 11:38 → ER 11:40
DX: H60.93 Unspecified otitis externa, bilateral (principal); E66.01 Morbid (severe) obesity due to excess calories; Z87.891 Personal history of nicotine dependence; Z88.0 Allergy status to penicillin; Z88.2 Allergy status to sulfonamides; Z88.1 Allergy status to other antibiotic agents; Z68.36 Body mass index [BMI] 36.0-36.9, adult
CPT/HCPCS: 99282

== ENCOUNTER 2023-06-17 18:23 | Emergency (ER) | payer MEDICAID ==
[~2023-06-17] VITALS: Ht 165 cm; Wt 96.0 kg
[~2023-06-17 18:23] MED LIST changes: +CIPR7.5D6 OT
[2023-06-17] MEDS ORDERED: KETOROLAC INJ 15 MG/ML VIAL IVP ONE (18:45)
[2023-06-17] MEDS ORDERED: diphenhydrAMINE INJ 50 MG/ML VIAL IVP ONE (18:45)
[2023-06-17] MEDS ORDERED: NS IV 1000 ML 1,000 ML IV SCH (18:45)
[2023-06-17] MEDS ORDERED: PROCHLORPERAZINE INJ 10 MG/2ML VIAL IV ONE (18:45)
[2023-06-17] MEDS ORDERED: PROCHLORPERAZINE INJ 10 MG/2ML VIAL ONE (18:48)
[2023-06-17 18:49] LABS: BASOPHILS # (AUTO) 0.1 10^3/uL (0.0-0.1); BASOPHILS % (AUTO) 1 % (0-10); EOSINOPHILS % (AUTO) 0 % (0-10); HEMATOCRIT 41 % (35-52); HEMOGLOBIN 13.1 g/dL (11.5-16.0); LYMPHOCYTES # (AUTO) 2.2 10^3/uL (1.0-4.0); LYMPHOCYTES % (AUTO) 25 % (12-44); MEAN CORPUSCULAR HEMOGLOBIN 27 pg (25-34); MEAN CORPUSCULAR HGB CONC 32 g/dL (32-36); MEAN CORPUSCULAR VOLUME 85 fL (80-99); MEAN PLATELET VOLUME 11.2 fL (9.0-12.2); MONOCYTES # (AUTO) 0.7 10^3/uL (0.0-1.0); MONOCYTES % (AUTO) 8 % (0-12); NEUTROPHILS # (AUTO) 5.8 10^3/uL (1.8-7.8); NEUTROPHILS % (AUTO) 66 % (42-75); PLATELET COUNT 288 10^3/uL (130-400); WHITE BLOOD COUNT 8.7 10^3/uL (4.3-11.0)
[2023-06-17 18:53] LABS: ALBUMIN 4.1 GM/DL (3.2-4.5); POTASSIUM 3.8 MMOL/L (3.6-5.0)
[2023-06-17 18:54] LABS: CALCIUM 9.2 MG/DL (8.5-10.1)
[2023-06-17 18:56] LABS: TOTAL PROTEIN 7.1 GM/DL (6.4-8.2)
[2023-06-17 18:57] LABS: BILIRUBIN,TOTAL 0.2 MG/DL (0.1-1.0)
[2023-06-17 18:59] LABS: CREATININE SERUM 0.85 MG/DL (0.60-1.30)
--- NOTE | 2023-06-17 19:02 | ED Neurological Problem ---
General Chief Complaint: Neurological Problems Stated Complaint: SEIZURE Nursing Triage Note: ARRIVED VIA EMS FROM HOME AFTER A 10 MIN WITNESSED SEIZURE. EMS REPORTS PT WAS NOT POSTICTAL UPON THERE ARRIVAL. Source: patient Exam Limitations: no limitations History of Present Illness Date Seen by Provider: Jun 17, 2023 Time Seen by Provider: 18:24 Initial Comments 27-year-old female presents to the ER via EMS for a seizure that lasted up to 10 minutes. The seizure was witnessed by patient's mother. Patient states that her mom told her that her whole body was shaking. Patient uncertain if she hit her head, no trauma noted to head. Patient thinks that she may have had multiple seizures prior to this witnessed seizure as well, but she is not certain. EMS reports that patient was alert and oriented upon arrival, patient was not postictal. Patient has a long history of seizures. She sees neurologist Sheyla Cleveland at the epilepsy center. She currently takes 2000 mg of Keppra twice daily and 900 mg of Trileptal twice daily. She also reports she has had a migraine for the last several days. States that sometimes her migraines trigger a seizure. Denies fevers, abdominal pain. Reports nausea and vomiting due to the migraine. Allergies and Home Medications Allergies Coded Allergies: cephalexin (Verified Allergy, Severe, soa, 07/13/20) divalproex sodium (Verified Allergy, Severe, Hives, 05/29/23) topiramate (Unverified Allergy, Intermediate, 04/30/21) hives naproxen (Verified Allergy, Mild, 06/23/22) amoxicillin (Verified Allergy, Unknown, 04/06/19) carbamazepine (Verified Allergy, Unknown, 04/06/19) shellfish derived (Verified Allergy, Unknown, 07/20/19) Penicillins (Unverified Adverse Reaction, Intermediate, 04/06/19) Sulfa (Sulfonamide Antibiotics) (Unverified Adverse Reaction, Intermediate, 04/06/19) Patient Home Medication List Home Medication List Reviewed: Yes Albuterol Sulfate (Ventolin Hfa) 1 Puff Puff, 2 PUFF IH Q4H Prescribed by: BENEDICTO MARTÍNEZ MD on 02/06/22 0231 Butalb/Acetaminophen/Caffeine (Esgic Capsule) 1 Each Capsule, 2 EACH PO Q6H PRN for headache Prescribed by: CELIA HUGHES on 12/17/19 1631 Cefuroxime Axetil (Cefuroxime) 250 Mg Tablet, 250 MG PO BID Prescribed by: CELIA HUGHES on 07/28/21 191 Ciprofloxacin HCl/Dexameth (Ciproflox-Dexameth Otic Susp) 0.3 %-0.1 % Drops.susp, 3 DROPS OT BID Prescribed by: Rosi Hernandez on 05/29/23 1223 Clindamycin HCl (Clindamycin HCl) 300 Mg Capsule, 300 MG PO TID Prescribed by: STEF NAVAS on 08/15/20 1646 Cyclobenzaprine HCl (Cyclobenzaprine HCl) 10 Mg Tablet, 10 MG PO Q8H PRN for SPASMS Prescribed by: SHQA OLSEN on 01/15/21 0025 Cyclobenzaprine HCl (Cyclobenzaprine HCl) 10 Mg Tablet, 10 MG PO Q8H PRN for SPASMS Prescribed by: HAMMAD ROACH on 05/22/22 1108 Doxycycline Hyclate (Doxycycline Hyclate) 100 Mg Tablet, 100 MG PO BID Prescribed by: CELIA HUGHES on 12/08/21 193 Erythromycin Base (Erythromycin Opthalmic Ointment) 5 Mg/Gram (0.5 %) Oint...g., 0 OP Q4H Prescribed by: OLMAN NEWTON on 03/20/22 1121 Fluoxetine HCl (Prozac) 20 Mg Capsule, Unknown Dose PO, (Reported) Entered as Reported by: FATOUMATA LIN on 09/01/19 044 Hydroxyzine Pamoate (Vistaril) 25 Mg Capsule, Unknown Dose PO, (Reported) Entered as Reported by: FATOUMATA LIN on 09/01/19444 Levetiracetam (Keppra) 1,000 Mg Tablet, 1,000 MG PO TID, (Reported) Entered as Reported by: GRISELDA MARTINEZ on 07/15/19 165 Medroxyprogesterone Acetate (Provera) 10 Mg Tablet, 10 MG PO DAILY Prescribed by: STEF NAVAS on 08/15/20 164 Metformin HCl (Metformin HCl) 500 Mg Tablet, 500 MG PO BID Prescribed by: CELIA HUGHES on 07/28/21 183 Mometasone Furoate (Mometasone Furoate) 45 Gm Cream..g., 45 GM TP TID Prescribed by: SHAQ OLSEN on 03/10/20 023 Nitrofurantoin Macrocrystal (Nitrofurantoin) 100 Mg Capsule, 100 MG PO BID Prescribed by: STEF NAVAS on 07/02/212100 Nitrofurantoin Monohyd/M-Cryst (Macrobid 100 mg Capsule) 100 Mg Capsule, 1 TAB PO BID Prescribed by: SHAQ OLSEN on 06/11/21 0207 Nitrofurantoin Monohyd/M-Cryst (Macrobid 100 mg Capsule) 100 Mg Capsule, 1 TAB PO BID Prescribed by: TRUDY CURRIE on 05/30/22 1907 Nitrofurantoin Monohyd/M-Cryst (Macrobid 100 mg Capsule) 100 Mg Capsule, 1 TAB PO BID Prescribed by: SHAQ OLSEN on 07/21/22 215 Ofloxacin (Floxin (Non-Formulary)) 5 Ml Drops, 3 DROPS RIGHT EAR BID Prescribed by: CELIA HUGHES on 07/05/20 1426 Ondansetron (Ondansetron Odt) 4 Mg Tab.rapdis, 4 MG PO Q6H PRN for NAUSEA/VOMITING Prescribed by: HAMMAD ROACH on 04/30/21 1134 Ondansetron (Ondansetron Odt) 4 Mg Tab.rapdis, 4 MG PO Q4H Prescribed by: SHAQ OLSEN on 07/21/222056 Prednisone (Prednisone) 20 Mg Tab, 40 MG PO DAILY Prescribed by: SHAQ OLSEN on 03/10/20231 Prednisone (Prednisone) 50 Mg Tab, 50 MG PO DAILY Prescribed by: BENEDICTO MARTÍNEZ MD on 02/06/22 023 Review of Systems Review of Systems Constitutional: see HPI Past Qhjkhqy-Eulopr-Slrsrq Hx Patient Social History Tobacco Use?: Yes Smoking Status: Former Smoker Substance use?: No Alcohol Use?: No Immunizations Up To Date Tetanus Booster (TDap): Less than 5yrs PED Vaccines UTD: Yes First/Initial COVID19 Vaccinat: DECEMBER 2020 Second COVID19 Vaccination Alex: JANUARY 2021 Third COVID19 Vaccination Date: JUL 2021 Seasonal Allergies Seasonal Allergies: Yes Past Medical History Surgery/Hospitalization HX: Hx seizure disorder. R kidney removed, HTN, HIGH CHOLESTEROL,HEADACHES,PCOS, ANXIETY/DEPRESSION, PREDIABETIC SX HISTORYTUBES IN EARS, RIGHT KIDNEY REMOVAL, DENTAL, "TUMOR REMOVED FROM TOP OF MOUTH", TONSILS AND ADNOIDS Surgeries: Yes Adenoidectomy, Ear Surgery, Nephrectomy, Renal, Tonsillectomy Respiratory: No Cardiac: Yes Heart Murmur, High Cholesterol, Hypertension, Irregular Heartbeat Neurological: Yes Headaches /Migraines, Seizure Disorder Last Menstrual Period: May 24, 2023 Reproductive Disorders: No Female Reproductive Disorders: Polycystic Ovarian Dis Genitourinary: Yes (only one kidney) Bladder Infection Gastrointestinal: No Musculoskeletal: No Endocrine: Yes (PCOS; MORBID OBESITY; "PREDIABETES" ) HEENT: Yes (S/P BMT'S; DECREASED HEARING IN BOTH EAR;BENIGN TUMOR-ROOF OF MOUTH REMOVED) Chronic Ear Infection Hearing Impairment: Hard of Hearing Cancer: No Psychosocial: Yes Anxiety, Depression Integumentary: Yes (skin issues on lt leg) Blood Disorders: No Family Medical History No Pertinent Family Hx SOCIAL HISTORY: -ETOH--OCCASIONAL USE -DRUGS--DENIES USE -SMOKING--QUIT 2011 ADDITIONAL PAST MEDICAL HISTORY: HAD SEIZURES CHILD AND WAS ON MEDICATIONS UNTIL AGE 10; NO SEIZURES FOR YEARS, THEN STARTED HAVING SEIZURES AGAIN 10/2017, AND HAS BEEN BACK ON SEIZURE MEDICATIONS SINCE THEN. THEY POSSIBLY HAVE BEEN RELATED TO MIGRAINES, BUT ON PREVIOUS ER VISITS, THE SEIZURES HAVE BEEN ALL SELF-REPORTED AND NONE HAVE EVER BEEN WITNESSED AND PT HAS NEVER HAD AN EEG PAST SURGICAL HISTORY: -BMT'S -REMOVAL OF BENIGN TUMOR FROM ROOF OF MOUTH -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 -TONSILLECTOMY AND ADENOIDECTOMY Physical Exam Vital Signs Vital Signs - First Documented 06/17/23 18:25 Temp 37.3 Pulse 98 Resp 16 B/P (MAP) 161/110 (127) Pulse Ox 97 O2 Delivery Room Air Capillary Refill : Less Than 3 Seconds Height, Weight, BMI Height: 5'5.00" Weight: 260lbs. 0oz. 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 tested, no motor/sensory deficits, alert, normal mood/affect, oriented x 3 Crainal Nerves: normal hearing, normal speech, PERRL Motor/Sensory: no motor deficit, no sensory deficit Skin: normal color, warm/dry Progress/Results/Core Measures Results/Orders Lab Results Laboratory Tests Test 06/17/23 16:30 Range/Units White Blood Count 8.7 4.3-11.0 10^3/uL Red Blood Count 4.80 3.80-5.11 10^6/uL Hemoglobin 13.1 11.5-16.0 g/dL Hematocrit 41 35-52 % Mean Corpuscular Volume 85 80-99 fL Mean Corpuscular Hemoglobin 27 25-34 pg Mean Corpuscular Hemoglobin Concent 32 32-36 g/dL Red Cell Distribution Width 14.5 10.0-14.5 % Platelet Count 288 130-400 10^3/uL Mean Platelet Volume 11.2 9.0-12.2 fL Immature Granulocyte % (Auto) 1 % Neutrophils (%) (Auto) 66 42-75 % Lymphocytes (%) (Auto) 25 12-44 % Monocytes (%) (Auto) 8 0-12 % Eosinophils (%) (Auto) 0 0-10 % Basophils (%) (Auto) 1 0-10 % Neutrophils # (Auto) 5.8 1.8-7.8 10^3/uL Lymphocytes # (Auto) 2.2 1.0-4.0 10^3/uL Monocytes # (Auto) 0.7 0.0-1.0 10^3/uL Eosinophils # (Auto) 0.0 0.0-0.3 10^3/uL Basophils # (Auto) 0.1 0.0-0.1 10^3/uL Immature Granulocyte # (Auto) 0.1 0.0-0.1 10^3/uL Sodium Level 141 135-145 MMOL/L Potassium Level 3.8 3.6-5.0 MMOL/L Chloride Level 105 98-107 MMOL/L Carbon Dioxide Level 21 21-32 MMOL/L Anion Gap 15 H 5-14 MMOL/L Blood Urea Nitrogen 11 7-18 MG/DL Creatinine 0.85 0.60-1.30 MG/DL Estimat Glomerular Filtration Rate 95 BUN/Creatinine Ratio 13 Glucose Level 101 70-105 MG/DL Calcium Level 9.2 8.5-10.1 MG/DL Corrected Calcium 9.1 8.5-10.1 MG/DL Total Bilirubin 0.2 0.1-1.0 MG/DL Aspartate Amino Transf (AST/SGOT) 14 5-34 U/L Alanine Aminotransferase (ALT/SGPT) 13 0-55 U/L Alkaline Phosphatase 66 40-136 U/L Total Protein 7.1 6.4-8.2 GM/DL Albumin 4.1 3.2-4.5 GM/DL My Orders Orders - ROSI MCKENZIE APRN Cbc With Automated Diff (06/17/23 18:37) Comprehensive Metabolic Panel (06/17/23 18:37) Ketorolac Injection (Ketorolac Injection (06/17/23 18:45) Prochlorperazine Injection (Prochlorpera (06/17/23 18:45) Diphenhydramine Injection (Diphenhydram (06/17/23 18:45) Ed Iv/Invasive Line Start (06/17/23 18:37) Ns Iv 1000 Ml (Ns Iv 1000 Ml) (06/17/23 18:45) Prochlorperazine Injection (Prochlorpera (06/17/23 18:48) Medications Given in ED Current Medications Medications Dose Ordered Sig/Kayode Route Start Time Stop Time Status Last Admin Dose Admin Diphenhydramine HCl 25 mg ONCE ONCE IVP 06/17/23 18:45 06/17/23 18:46 DC 06/17/23 18:53 25 MG Ketorolac Tromethamine 15 mg ONCE ONCE IVP 06/17/23 18:45 06/17/23 18:46 DC 06/17/23 18:54 15 MG Prochlorperazine Edisylate 10 mg ONCE ONCE IV 06/17/23 18:45 06/17/23 18:46 DC 06/17/23 18:51 10 MG Vital Signs/I&O 06/17/23 06/17/23 18:25 19:41 Temp 37.3 37.1 Pulse 98 86 Resp 16 16 B/P (MAP) 161/110 (127) 134/83 Pulse Ox 97 98 O2 Delivery Room Air Room Air Blood Pressure Mean: 127 Progress Progress Note : Progress Note Patient seen and evaluated, resting comfortably in bed, no acute distress. Patient is alert and oriented at this time, no focal neuro deficits. Based on exam and symptoms, labs including CBC and CMP ordered. Will treat migraine with Toradol, Compazine, Benadryl, and IV fluids. 1927 Labs reviewed. CBC grossly normal. CMP grossly normal. Results discussed with patient. Patient is feeling better and would like to leave. No seizure activity while in the ER. Discharge instructions and return precautions provided. Departure Impression Primary Impression: Seizure Additional Impression: Headache Disposition: HOME, SELF-CARE Condition: Stable Departure-Patient Inst. Decision time for Depature: 19:30 Referrals: KEYANA PRIETO DO (PCP/Family) Primary Care Physician Patient Instructions: Seizures, Adult ED Add. Discharge Instructions: Continue taking your medications as prescribed. Follow-up with your neurologist. Return for any new, concerning, or worsening symptoms. All discharge instructions reviewed with patient and/or family. Voiced understanding. ROSI MCKENZIE APRN Jun 17, 2023 19:02
[2023-06-17 19:41] VITALS: BP 134/83
== END 2023-06-17 19:43 | disposition home or self-care (01) ==
LOC: EDUNIT# 18:23 → ER 18:24
DX: G40.909 Epilepsy, unspecified, not intractable, without status epilepticus (principal); R51.9 Headache, unspecified; E66.01 Morbid (severe) obesity due to excess calories; Z79.899 Other long term (current) drug therapy; Z87.891 Personal history of nicotine dependence; Z68.35 Body mass index [BMI] 35.0-35.9, adult; Z86.69 Personal history of other diseases of the nervous system and sense organs
CPT/HCPCS: 36415; 80053; 85025

== ENCOUNTER 2023-06-27 13:44 | Emergency (ER) | payer MEDICAID ==
[2023-06-27] MEDS ORDERED: TRM50T PO (14:29)
--- NOTE | 2023-06-27 14:30 | ED Upper Extremity ---
General Chief Complaint: Upper Extremity Stated Complaint: RT SHOULDER PAIN Nursing Triage Note: PT AMB TO FT WITH C/O R SHOULDER PAIN AFTER PLAYING TUG OF WAR WITH A DOG EARLIER TODAY. PT TOOK 1000MG TYLENOL WITHOUT RELIEF Source: patient Exam Limitations: no limitations History of Present Illness Date Seen by Provider: Jun 27, 2023 Time Seen by Provider: 14:26 Initial Comments Patient is a 27-year-old female who presents ED with right shoulder pain. She states around 12 PM she was playing in tug-of-war with her friends 7-month-old puppy. She states the dog pulled her right arm slightly hard and she felt a pop to her right shoulder. Since then she is having difficulty with range of motion of her right shoulder. She states it feels weak. She denies falling or landing on the right shoulder. She took 1000 mg of Tylenol without much improvement. She states she placed an ice pack and heat without much improvement. Denies any distal numbness and tingling, chest pain, shortness of breath, nausea, vomiting, diarrhea. Allergies and Home Medications Allergies Coded Allergies: cephalexin (Verified Allergy, Severe, soa, 07/13/20) divalproex sodium (Verified Allergy, Severe, Hives, 05/29/23) topiramate (Unverified Allergy, Intermediate, 04/30/21) hives naproxen (Verified Allergy, Mild, 06/23/22) amoxicillin (Verified Allergy, Unknown, 04/06/19) carbamazepine (Verified Allergy, Unknown, 04/06/19) shellfish derived (Verified Allergy, Unknown, 07/20/19) Penicillins (Unverified Adverse Reaction, Intermediate, 04/06/19) Sulfa (Sulfonamide Antibiotics) (Unverified Adverse Reaction, Intermediate, 04/06/19) Patient Home Medication List Home Medication List Reviewed: Yes Albuterol Sulfate (Ventolin Hfa) 1 Puff Puff, 2 PUFF IH Q4H Prescribed by: BENEDICTO MARTÍNEZ MD on 02/06/22 0231 Butalb/Acetaminophen/Caffeine (Esgic Capsule) 1 Each Capsule, 2 EACH PO Q6H PRN for headache Prescribed by: CELIA HUGHES on 12/17/19 1631 Cefuroxime Axetil (Cefuroxime) 250 Mg Tablet, 250 MG PO BID Prescribed by: CELIA HUGHES on 07/28/21 1913 Ciprofloxacin HCl/Dexameth (Ciproflox-Dexameth Otic Susp) 0.3 %-0.1 % Musa ps.susp, 3 DROPS OT BID Prescribed by: Rosi Hernandez on 05/29/23 1223 Clindamycin HCl (Clindamycin HCl) 300 Mg Capsule, 300 MG PO TID Prescribed by: STEF NAVAS on 08/15/20 164 Cyclobenzaprine HCl (Cyclobenzaprine HCl) 10 Mg Tablet, 10 MG PO Q8H PRN for SPASMS Prescribed by: SHAQ OLSEN on 01/15/21 0025 Cyclobenzaprine HCl (Cyclobenzaprine HCl) 10 Mg Tablet, 10 MG PO Q8H PRN for SPASMS Prescribed by: HAMMAD ROACH on 05/22/22 1108 Doxycycline Hyclate (Doxycycline Hyclate) 100 Mg Tablet, 100 MG PO BID Prescribed by: CELIA HUGHES on 12/08/21 193 Erythromycin Base (Erythromycin Opthalmic Ointment) 5 Mg/Gram (0.5 %) Oint...g., 0 OP Q4H Prescribed by: OLMAN NEWTON on 03/20/22 1121 Fluoxetine HCl (Prozac) 20 Mg Capsule, Unknown Dose PO, (Reported) Entered as Reported by: FATOUMATA LIN on 09/01/19444 Hydroxyzine Pamoate (Vistaril) 25 Mg Capsule, Unknown Dose PO, (Reported) Entered as Reported by: FATOUMATA LIN on 09/01/19 044 Levetiracetam (Keppra) 1,000 Mg Tablet, 1,000 MG PO TID, (Reported) Entered as Reported by: GRISELDA MARTINEZ on 07/15/19 165 Medroxyprogesterone Acetate (Provera) 10 Mg Tablet, 10 MG PO DAILY Prescribed by: STEF NAVAS on 08/15/20 164 Metformin HCl (Metformin HCl) 500 Mg Tablet, 500 MG PO BID Prescribed by: CELIA HUGHES on 07/28/21 183 Mometasone Furoate (Mometasone Furoate) 45 Gm Cream..g., 45 GM TP TID Prescribed by: SHAQ OLSEN on 03/10/20 0232 Nitrofurantoin Macrocrystal (Nitrofurantoin) 100 Mg Capsule, 100 MG PO BID Prescribed by: STEF NAVAS on 07/02/21 210 Nitrofurantoin Monohyd/M-Cryst (Macrobid 100 mg Capsule) 100 Mg Capsule, 1 TAB PO BID Prescribed by: SHAQ OLSEN on 06/11/21 0207 Nitrofurantoin Monohyd/M-Cryst (Macrobid 100 mg Capsule) 100 Mg Capsule, 1 TAB PO BID Prescribed by: TRUDY CURRIE on 05/30/22 1907 Nitrofurantoin Monohyd/M-Cryst (Macrobid 100 mg Capsule) 100 Mg Capsule, 1 TAB PO BID Prescribed by: SHAQ OLSEN on 07/21/22 215 Ofloxacin (Floxin (Non-Formulary)) 5 Ml Drops, 3 DROPS RIGHT EAR BID Prescribed by: CELIA HUGHES on 07/05/20 1426 Ondansetron (Ondansetron Odt) 4 Mg Tab.rapdis, 4 MG PO Q6H PRN for NAUSEA/VOMITING Prescribed by: HAMMAD ROACH on 04/30/21 1134 Ondansetron (Ondansetron Odt) 4 Mg Tab.rapdis, 4 MG PO Q4H Prescribed by: SHAQ OLSEN on 07/21/222056 Prednisone (Prednisone) 20 Mg Tab, 40 MG PO DAILY Prescribed by: SHAQ OLSEN on 03/10/20 023 Prednisone (Prednisone) 50 Mg Tab, 50 MG PO DAILY Prescribed by: BENEDICTO MARTÍNEZ MD on 02/06/22 0231 Tramadol HCl (Tramadol HCl) 50 Mg Tablet, 50 MG PO Q4H PRN for PAIN Prescribed by: TRUDY CURRIE on 06/27/23 1429 Review of Systems Constitutional: No chills, No diaphoresis, No malaise, No weakness EENTM: No ear pain, No blurred vision, No double vision Respiratory: No cough, No dyspnea on exertion Cardiovascular: No chest pain Gastrointestinal: No abdominal pain, No diarrhea, No nausea, No vomiting Genitourinary: No decreased output, No discharge Musculoskeletal: No back pain; joint pain, joint swelling, muscle pain Skin: No change in color, No change in hair/nails All Other Systems Reviewed Negative Unless Noted: Yes Past Gvjkwab-Ucivhn-Btmfds Hx Patient Social History Tobacco Use?: No Use of E-Cig and/or Vaping dev: No Substance use?: No Alcohol Use?: No Pt feels they are or have been: No Immunizations Up To Date Tetanus Booster (TDap): Less than 5yrs PED Vaccines UTD: Yes First/Initial COVID19 Vaccinat: DECEMBER 2020 Second COVID19 Vaccination Alex: JANUARY 2021 Third COVID19 Vaccination Date: JUL 2021 Seasonal Allergies Seasonal Allergies: Yes Past Medical History Surgery/Hospitalization HX: Hx seizure disorder. R kidney removed, HTN, HIGH CHOLESTEROL,HEADACHES,PCOS, ANXIETY/DEPRESSION, PREDIABETIC SX HISTORYTUBES IN EARS, RIGHT KIDNEY REMOVAL, DENTAL, "TUMOR REMOVED FROM TOP OF MOUTH", TONSILS AND ADNOIDS Surgeries: Yes Adenoidectomy, Ear Surgery, Nephrectomy, Renal, Tonsillectomy Respiratory: No Cardiac: Yes Heart Murmur, High Cholesterol, Hypertension, Irregular Heartbeat Neurological: Yes Headaches /Migraines, Seizure Disorder Last Menstrual Period: Apr 26, 2023 Reproductive Disorders: No Female Reproductive Disorders: Polycystic Ovarian Dis Genitourinary: Yes (only one kidney) Bladder Infection Gastrointestinal: No Musculoskeletal: No Endocrine: Yes (PCOS; MORBID OBESITY; "PREDIABETES" ) HEENT: Yes (S/P BMT'S; DECREASED HEARING IN BOTH EAR;BENIGN TUMOR-ROOF OF MOUTH REMOVED) Chronic Ear Infection Hearing Impairment: Hard of Hearing Cancer: No Psychosocial: Yes Anxiety, Depression Integumentary: Yes (skin issues on lt leg) Blood Disorders: No Family Medical History No Pertinent Family Hx SOCIAL HISTORY: -ETOH--OCCASIONAL USE -DRUGS--DENIES USE -SMOKING--QUIT 2011 ADDITIONAL PAST MEDICAL HISTORY: HAD SEIZURES CHILD AND WAS ON MEDICATIONS UNTIL AGE 10; NO SEIZURES FOR YEARS, THEN STARTED HAVING SEIZURES AGAIN 10/2017, AND HAS BEEN BACK ON SEIZURE MEDICATIONS SINCE THEN. THEY POSSIBLY HAVE BEEN RELATED TO MIGRAINES, BUT ON PREVIOUS ER VISITS, THE SEIZURES HAVE BEEN ALL SELF-REPORTED AND NONE HAVE EVER BEEN WITNESSED AND PT HAS NEVER HAD AN EEG PAST SURGICAL HISTORY: -BMT'S -REMOVAL OF BENIGN TUMOR FROM ROOF OF MOUTH -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 -TONSILLECTOMY AND ADENOIDECTOMY Physical Exam Vital Signs Vital Signs - First Documented 06/27/23 14:08 Pulse 71 Resp 18 B/P (MAP) 124/81 (95) Pulse Ox 99 O2 Delivery Room Air Capillary Refill : Height, Weight, BMI Height: 5'5.00" Weight: 260lbs. 0oz. 117.273914ds; 35.00 BMI Method:Actual General Appearance: WD/WN, no apparent distress HEENT: PERRL/EOMI, normal ENT inspection, TMs normal, pharynx normal Neck: non-tender, full range of motion, supple Cardiovascular: regular rate, rhythm, no edema, no gallop, no JVD Respiratory: chest non-tender, lungs clear, normal breath sounds, no respiratory distress, no accessory muscle use Gastrointestinal: normal bowel sounds, non tender, soft, no organomegaly Back: normal inspection, no CVA tenderness Shoulder: limited ROM (Limited passive range of motion with flexion extension supination, internal and external rotation. Neurovascular intact. Pain with empty can test. Positive Neer's test. 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 Differential diagnosis, shoulder sprain strain, muscle contusion. On exam she does have some pain with range of motion. Difficulty examining the rotator cuff as she states she is having too much pain. She is neurovascular intact. No fall or trauma suggesting any concern for fracture. She has no cervical radiculopathy. Concern for more of a shoulder sprain/strain. Recommend ice, anti- inflammatories. She is allergic to most NSAIDs. Recommend Tylenol. We will provide a few days worth of tramadol. Provided range of motion exercises. Orthopedic follow-up in 7 to 10 days for reevaluation as needed. Suggest stretching exercises and strengthening exercises at this time. Further evaluation may be needed if continue having limited range of motion to evaluate the rotator cuff. Impression Primary Impression: Shoulder strain Additional Impression: Shoulder sprain Disposition: 01 HOME, SELF-CARE Condition: Stable Departure-Patient Inst. Decision time for Depature: 14:28 Referrals: KEYANA PRIETO DO (PCP/Family) Primary Care Physician HEIDE CROOKS MD Patient Instructions: Shoulder Sprain ED Scripts Tramadol HCl (Tramadol HCl) 50 Mg Tablet 50 MG PO Q4H PRN for PAIN, #6 TAB Prov: AMANDA RUIZ 06/27/23 AMANDA RUIZ Jun 27, 2023 14:30
[2023-06-27 14:38] VITALS: BP 124/81
== END 2023-06-27 14:37 | disposition home or self-care (01) ==
LOC: EDUNIT# 13:44 → ER 13:45
DX: S46.911A Strain of unspecified muscle, fascia and tendon at shoulder and upper arm level, right arm, initial encounter (principal); S43.401A Unspecified sprain of right shoulder joint, initial encounter; E66.01 Morbid (severe) obesity due to excess calories; Z87.891 Personal history of nicotine dependence; Z68.35 Body mass index [BMI] 35.0-35.9, adult; X50.1XXA Overexertion from prolonged static or awkward postures, initial encounter; Y93.89 Activity, other specified

== ENCOUNTER 2023-06-30 15:20 | Emergency (ER) | payer MEDICAID ==
[~2023-06-30] VITALS: Ht 165 cm; Wt 127.0 kg
[2023-06-30 15:25] VITALS: BP 162/89
[2023-06-30] MEDS ORDERED: CYCLOBENZAPRINE 10 MG TABLET PO STA (15:38)
[2023-06-30] MEDS ORDERED: ACETAMINOPHEN 500 MG TABLET PO ONE (15:45)
--- NOTE | 2023-06-30 15:45 | ED Upper Extremity ---
General Chief Complaint: Upper Extremity Stated Complaint: SEIZURE/FALL RIGHT ARM PAIN Nursing Triage Note: PT HAS A HX OF SEIZURES AND STATES SHE HAD A SMALL ONE TODAY LASTING 5 MINUTES. PT STATES SHE HURT HER RIGHT SHOULDER DURING THE SEIZURE. Source: patient Exam Limitations: no limitations History of Present Illness Date Seen by Provider: Jun 30, 2023 Time Seen by Provider: 15:25 Initial Comments 27-year-old female with past medical history of seizures and is skskl-iiju-ctoiejyi coming in after she had a seizure and landed on her right shoulder. She states she has seizures every day and this is not unusual. She is taking her medications as prescribed. Right shoulder hurts worse with movement, constant, tried heat and ice and nothing really seems to make it better. Otherwise denying any other acute complaints. Does not have any headache or vision changes. She has been ambulatory since the incident. Allergies and Home Medications Allergies Coded Allergies: cephalexin (Verified Allergy, Severe, soa, 07/13/20) divalproex sodium (Verified Allergy, Severe, Hives, 05/29/23) topiramate (Unverified Allergy, Intermediate, 04/30/21) hives naproxen (Verified Allergy, Mild, 06/23/22) amoxicillin (Verified Allergy, Unknown, 04/06/19) carbamazepine (Verified Allergy, Unknown, 04/06/19) shellfish derived (Verified Allergy, Unknown, 07/20/19) Penicillins (Unverified Adverse Reaction, Intermediate, 04/06/19) Sulfa (Sulfonamide Antibiotics) (Unverified Adverse Reaction, Intermediate , 04/06/19) Patient Home Medication List Home Medication List Reviewed: Yes Albuterol Sulfate (Ventolin Hfa) 1 Puff Puff, 2 PUFF IH Q4H Prescribed by: BENEDICTO MARTÍNEZ MD on 02/06/22 0231 Butalb/Acetaminophen/Caffeine (Esgic Capsule) 1 Each Capsule, 2 EACH PO Q6H PRN for headache Prescribed by: CELIA HUGHES on 12/17/19 1631 Cefuroxime Axetil (Cefuroxime) 250 Mg Tablet, 250 MG PO BID Prescribed by: CELIA HUGHES on 07/28/21 1913 Ciprofloxacin HCl/Dexameth (Ciproflox-Dexameth Otic Susp) 0.3 %-0.1 % Drops.susp, 3 DROPS OT BID Prescribed by: Rosi Hernandez on 05/29/23 1223 Clindamycin HCl (Clindamycin HCl) 300 Mg Capsule, 300 MG PO TID Prescribed by: STEF NAVAS on 08/15/20 1646 Cyclobenzaprine HCl (Cyclobenzaprine HCl) 10 Mg Tablet, 10 MG PO Q8H PRN for SPASMS Prescribed by: SHAQ OLSEN on 01/15/21 0025 Cyclobenzaprine HCl (Cyclobenzaprine HCl) 10 Mg Tablet, 10 MG PO Q8H PRN for SPASMS Prescribed by: HAMMAD ROACH on 05/22/22 1108 Doxycycline Hyclate (Doxycycline Hyclate) 100 Mg Tablet, 100 MG PO BID Prescribed by: CELIA HUGHES on 12/08/21 193 Erythromycin Base (Erythromycin Opthalmic Ointment) 5 Mg/Gram (0.5 %) Oint...g., 0 OP Q4H Prescribed by: OLMAN NEWTON on 03/20/22 1121 Fluoxetine HCl (Prozac) 20 Mg Capsule, Unknown Dose PO, (Reported) Entered as Reported by: FATOUMATA LIN on 09/01/19 0445 Hydroxyzine Pamoate (Vistaril) 25 Mg Capsule, Unknown Dose PO, (Reported) Entered as Reported by: FATOUMATA LIN on 09/01/19 044 Levetiracetam (Keppra) 1,000 Mg Tablet, 1,000 MG PO TID, (Reported) Entered as Reported by: GRISELDA MARTINEZ on 07/15/19 165 Medroxyprogesterone Acetate (Provera) 10 Mg Tablet, 10 MG PO DAILY Prescribed by: STEF NAVAS on 08/15/20 1647 Metformin HCl (Metformin HCl) 500 Mg Tablet, 500 MG PO BID Prescribed by: CELIA HUGHES on 07/28/21 183 Mometasone Furoate (Mometasone Furoate) 45 Gm Cream..g., 45 GM TP TID Prescribed by: SHAQ OLSEN on 03/10/20 0232 Nitrofurantoin Macrocrystal (Nitrofurantoin) 100 Mg Capsule, 100 MG PO BID Prescribed by: STEF NAVAS on 07/02/21 210 Nitrofurantoin Monohyd/M-Cryst (Macrobid 100 mg Capsule) 100 Mg Capsule, 1 TAB PO BID Prescribed by: SHAQ OLSEN on 06/11/21 0207 Nitrofurantoin Monohyd/M-Cryst (Macrobid 100 mg Capsule) 100 Mg Capsule, 1 TAB PO BID Prescribed by: TRUDY CURRIE on 05/30/22 1907 Nitrofurantoin Monohyd/M-Cryst (Macrobid 100 mg Capsule) 100 Mg Capsule, 1 TAB PO BID Prescribed by: SHAQ OLSEN on 07/21/22 215 Ofloxacin (Floxin (Non-Formulary)) 5 Ml Drops, 3 DROPS RIGHT EAR BID Prescribed by: CELIA HUGHES on 07/05/20 1426 Ondansetron (Ondansetron Odt) 4 Mg Tab.rapdis, 4 MG PO Q6H PRN for NAUSEA/VOMITING Prescribed by: HAMMAD ROACH on 04/30/21 1134 Ondansetron (Ondansetron Odt) 4 Mg Tab.rapdis, 4 MG PO Q4H Prescribed by: SHAQ OLSEN on 07/21/222056 Prednisone (Prednisone) 20 Mg Tab, 40 MG PO DAILY Prescribed by: SHAQ OLSEN on 03/10/20 0232 Prednisone (Prednisone) 50 Mg Tab, 50 MG PO DAILY Prescribed by: BENEDICTO MARTÍNEZ MD on 02/06/22 023 Tramadol HCl (Tramadol HCl) 50 Mg Tablet, 50 MG PO Q4H PRN for PAIN Prescribed by: TRUDY CURRIE on 06/27/23 1429 Review of Systems Constitutional: no symptoms reported EENTM: no symptoms reported Respiratory: no symptoms reported Cardiovascular: no symptoms reported Gastrointestinal: no symptoms reported Genitourinary: no symptoms reported Musculoskeletal: see HPI Skin: no symptoms reported Psychiatric/Neurological: No Symptoms Reported All Other Systems Reviewed Negative Unless Noted: Yes Past Xucjzbn-Wgfnhv-Xgtruz Hx Patient Social History Tobacco Use?: No Substance use?: No Immunizations Up To Date Tetanus Booster (TDap): Less than 5yrs PED Vaccines UTD: Yes First/Initial COVID19 Vaccinat: DECEMBER 2020 Second COVID19 Vaccination Alex: JANUARY 2021 Third COVID19 Vaccination Date: JUL 2021 Seasonal Allergies Seasonal Allergies: Yes Past Medical History Surgery/Hospitalization HX: Hx seizure disorder. R kidney removed, HTN, HIGH CHOLESTEROL,HEADACHES,PCOS, ANXIETY/DEPRESSION, PREDIABETIC SX HISTORYTUBES IN EARS, RIGHT KIDNEY REMOVAL, DENTAL, "TUMOR REMOVED FROM TOP OF MOUTH", TONSILS AND ADNOIDS Surgeries: Yes Adenoidectomy, Ear Surgery, Nephrectomy, Renal, Tonsillectomy Respiratory: No Cardiac: Yes Heart Murmur, High Cholesterol, Hypertension, Irregular Heartbeat Neurological: Yes Headaches /Migraines, Seizure Disorder Last Menstrual Period: Jun 30, 2023 Reproductive Disorders: No Female Reproductive Disorders: Polycystic Ovarian Dis Genitourinary: Yes (only one kidney) Bladder Infection Gastrointestinal: No Musculoskeletal: No Endocrine: Yes (PCOS; MORBID OBESITY; "PREDIABETES" ) HEENT: Yes (S/P BMT'S; DECREASED HEARING IN BOTH EAR;BENIGN TUMOR-ROOF OF MOUTH REMOVED) Chronic Ear Infection Hearing Impairment: Hard of Hearing Cancer: No Psychosocial: Yes Anxiety, Depression Integumentary: Yes (skin issues on lt leg) Blood Disorders: No Family Medical History No Pertinent Family Hx SOCIAL HISTORY: -ETOH--OCCASIONAL USE -DRUGS--DENIES USE -SMOKING--QUIT 2011 ADDITIONAL PAST MEDICAL HISTORY: HAD SEIZURES CHILD AND WAS ON MEDICATIONS UNTIL AGE 10; NO SEIZURES FOR YEARS, THEN STARTED HAVING SEIZURES AGAIN 10/2017, AND HAS BEEN BACK ON SEIZURE MEDICATIONS SINCE THEN. THEY POSSIBLY HAVE BEEN RELATED TO MIGRAINES, BUT ON PREVIOUS ER VISITS, THE SEIZURES HAVE BEEN ALL SELF-REPORTED AND NONE HAVE EVER BEEN WITNESSED AND PT HAS NEVER HAD AN EEG PAST SURGICAL HISTORY: -BMT'S -REMOVAL OF BENIGN TUMOR FROM ROOF OF MOUTH -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 -TONSILLECTOMY AND ADENOIDECTOMY Physical Exam Vital Signs Vital Signs - First Documented 06/30/23 15:25 Temp 36.0 Pulse 77 Resp 16 B/P (MAP) 162/89 (113) Pulse Ox 94 O2 Delivery Room Air Capillary Refill : Less Than 3 Seconds Height, Weight, BMI Height: 5'5.00" Weight: 260lbs. 0oz. [id number]; 46.00 BMI Method:Actual General Appearance: WD/WN, no apparent distress HEENT: PERRL/EOMI, normal ENT inspection, pharynx normal Neck: non-tender, full range of motion, supple, normal inspection Cardiovascular: regular rate, rhythm, no edema, no murmur Respiratory: chest non-tender, lungs clear, normal breath sounds, no respiratory distress, no accessory muscle use Gastrointestinal: normal bowel sounds, non tender, soft; No distended, No guarding, No rebound Back: normal inspection, no CVA tenderness, no vertebral tenderness Shoulder: normal inspection, no evidence of injury, limited ROM, pain (superior right shoulder pain) Elbow/Forearm: normal inspection, non-tender, no evidence of injury, normal ROM Neurologic/Tendon: normal sensation, normal motor functions, normal tendon functions Neurologic/Psychiatric: no motor/sensory deficits, alert, normal mood/affect, oriented x 3 Skin: normal color, warm/dry Progress/Results/Core Measures Results/Orders My Orders Orders - AMANDA BUENROSTRO MD Shoulder, Right, 3 Views (06/30/23 15:38) Acetaminophen Tablet (Acetaminophen Ta (06/30/23 15:45) Cyclobenzaprine Tablet (Cyclobenzaprine (06/30/23 15:38) Cyclobenzaprine Tablet (Cyclobenzaprine (06/30/23 15:48) Medications Given in ED Current Medications Medications Dose Ordered Sig/Kayode Route Start Time Stop Time Status Last Admin Dose Admin Acetaminophen 1,000 mg ONCE ONCE PO 06/30/23 15:45 06/30/23 15:46 DC 06/30/23 15:48 1,000 MG Vital Signs/I&O 06/30/23 15:25 Temp 36.0 Pulse 77 Resp 16 B/P (MAP) 162/89 (113) Pulse Ox 94 O2 Delivery Room Air Blood Pressure Mean: 113 Progress Progress Note : Progress Note 27-year-old female with above history coming in due to right shoulder pain after falling. ABCs were intact and vitals were stable on presentation. She has right shoulder discomfort on palpation, but does have full range of motion and she is neurovascularly intact. X-ray of the right shoulder ordered and interpreted by me showing no fracture or dislocation. She was given a Tylenol and Flexeril here for pain control. In regards to her seizures, she has them every day, this is no different, no signs of infection and she has not missed any medications. She is at her mental baseline. I believe she is stable for discharge with outpatient follow-up. She was sent home with strict return precautions. Diagnostic Imaging Diagonstic Imaging: Xray (right shoulder) Comments NAME: SAYDA JASSO [facility] REC#: [id number] PT STATUS: REG ER : 1995 PHYSICIAN: AMANDA BUENROSTRO MD ADMIT DATE: 06/30/23/ER Draft Date of Exam:06/30/23 SHOULDER, RIGHT, 3 VIEWS INDICATION: Shoulder pain following seizure activity. FINDINGS: Three-view right shoulder performed. No fracture or dislocation. IMPRESSION: Negative. Dictated on workstation # [id number] Dict: 06/30/23 1612 Trans: 06/30/23 1615 [id number] Interpreted by: PAMELA JEONG Electronically signed by: Departure Impression Primary Impression: Sprain of right shoulder Qualified Codes: S43.491A - Other sprain of right shoulder joint, initial encounter Disposition: HOME, SELF-CARE Condition: Stable Departure-Patient Inst. Decision time for Depature: 16:25 Referrals: KEYANA PRIETO DO (PCP/Family) Primary Care Physician HEIDE CROOKS MD Patient Instructions: Shoulder Sprain ED Add. Discharge Instructions: Fortunately nothing is broken or dislocated. You likely just sprained your shoulder. Use the sling for comfort. If you are not feeling better in the next couple of weeks then please follow back up with an orthopedic doctor. Dr. Crooks is one option, his number is in this paperwork. Take Tylenol as needed for pain. Work/School Note: Work Release Form Date Seen in the Emergency Department: Jun 30, 2023 Return to Work: Jul 01, 2023 Restrictions: No Restrictions AMANDA BUENROSTRO MD Jun 30, 2023 15:45
[2023-06-30] MEDS ORDERED: CYCLOBENZAPRINE 10 MG TABLET ONE (15:48)
--- NOTE | 2023-06-30 16:16 | Diagnostic Imaging Report ---
INDICATION: Shoulder pain following seizure activity. FINDINGS: Three-view right shoulder performed. No fracture or dislocation. IMPRESSION: Negative. Dictated by: Dictated on workstation # [id number]
== END 2023-06-30 16:22 | disposition home or self-care (01) ==
LOC: EDUNIT# 15:20 → ER 15:22
DX: S43.491A Other sprain of right shoulder joint, initial encounter (principal); G40.909 Epilepsy, unspecified, not intractable, without status epilepticus; E66.01 Morbid (severe) obesity due to excess calories; Z87.891 Personal history of nicotine dependence; Z68.42 Body mass index [BMI] 45.0-49.9, adult; X58.XXXA Exposure to other specified factors, initial encounter
CPT/HCPCS: 73030

== ENCOUNTER 2023-07-24 10:47 | Emergency (ER) | payer MEDICAID ==
[~2023-07-24] VITALS: Ht 165.1 cm; Wt 127.0 kg
[2023-07-24 10:47] VITALS: BP 147/78
--- NOTE | 2023-07-24 11:05 | ED Neurological Problem ---
General Chief Complaint: Neurological Problems Stated Complaint: SEIZURE Source: patient, EMS Exam Limitations: no limitations History of Present Illness Date Seen by Provider: Jul 24, 2023 Time Seen by Provider: 10:53 Initial Comments 27-year-old female with history of seizure disorder on 2000 g Keppra twice daily and Trileptal presents emergency department today after seizure. She states she fell and hit her head and has neck pain. MS states he picked her up [facility]. She was not postictal. They placed a cervical collar and transported her nonetheless stable condition. Blood sugar was checked and normal in route. She has had no recent changes in her medications and tells me she has a seizure about every day. All other systems reviewed and negative except documented per HPI. Voice recognition software was used to help create this chart Allergies and Home Medications Allergies Coded Allergies: cephalexin (Verified Allergy, Severe, soa, 07/13/20) divalproex sodium (Verified Allergy, Severe, Hives, 05/29/23) topiramate (Unverified Allergy, Intermediate, 04/30/21) hives naproxen (Verified Allergy, Mild, 06/23/22) amoxicillin (Verified Allergy, Unknown, 04/06/19) carbamazepine (Verified Allergy, Unknown, 04/06/19) shellfish derived (Verified Allergy, Unknown, 07/20/19) Penicillins (Unverified Adverse Reaction, Intermediate, 04/06/19) Sulfa (Sulfonamide Antibiotics) (Unverified Adverse Reaction, Intermediate, 04/06/19) Patient Home Medication List Home Medication List Reviewed: Yes Albuterol Sulfate (Ventolin Hfa) 1 Puff Puff, 2 PUFF IH Q4H Prescribed by: BENEDICTO MARTÍNEZ MD on 02/06/22 0231 Butalb/Acetaminophen/Caffeine (Esgic Capsule) 1 Each Capsule, 2 EACH PO Q6H PRN for headache Prescribed by: CELIA HUGHES on 12/17/19 1631 Cefuroxime Axetil (Cefuroxime) 250 Mg Tablet, 250 MG PO BID Prescribed by: CELIA HUGHES on 07/28/21 191 Ciprofloxacin HCl/Dexameth (Ciproflox-Dexameth Otic Susp) 0.3 %-0.1 % Drops.susp, 3 DROPS OT BID Prescribed by: Rosi Hernandez on 05/29/23 1223 Clindamycin HCl (Clindamycin HCl) 300 Mg Capsule, 300 MG PO TID Prescribed by: STEF NAVAS on 08/15/20 1646 Cyclobenzaprine HCl (Cyclobenzaprine HCl) 10 Mg Tablet, 10 MG PO Q8H PRN for SPASMS Prescribed by: SHAQ OLSEN on 01/15/21 0025 Cyclobenzaprine HCl (Cyclobenzaprine HCl) 10 Mg Tablet, 10 MG PO Q8H PRN for SPASMS Prescribed by: HAMMAD ROACH on 05/22/22 1108 Doxycycline Hyclate (Doxycycline Hyclate) 100 Mg Tablet, 100 MG PO BID Prescribed by: CELIA HUGHES on 12/08/21 193 Erythromycin Base (Erythromycin Opthalmic Ointment) 5 Mg/Gram (0.5 %) Oint...g., 0 OP Q4H Prescribed by: OLMAN NEWTON on 03/20/22 1121 Fluoxetine HCl (Prozac) 20 Mg Capsule, Unknown Dose PO, (Reported) Entered as Reported by: FATOUMATA LIN on 09/01/19 0445 Hydroxyzine Pamoate (Vistaril) 25 Mg Capsule, Unknown Dose PO, (Reported) Entered as Reported by: FATOUMATA LIN on 09/01/19 044 Levetiracetam (Keppra) 1,000 Mg Tablet, 1,000 MG PO TID, (Reported) Entered as Reported by: GRISELDA MARTINEZ on 07/15/19 1659 Medroxyprogesterone Acetate (Provera) 10 Mg Tablet, 10 MG PO DAILY Prescribed by: STEF NAVAS on 08/15/20 1647 Metformin HCl (Metformin HCl) 500 Mg Tablet, 500 MG PO BID Prescribed by: CELIA HUGHES on 07/28/21 183 Mometasone Furoate (Mometasone Furoate) 45 Gm Cream..g., 45 GM TP TID Prescribed by: SHAQ OLSEN on 03/10/20 0232 Nitrofurantoin Macrocrystal (Nitrofurantoin) 100 Mg Capsule, 100 MG PO BID Prescribed by: STEF NAVAS on 07/02/21 210 Nitrofurantoin Monohyd/M-Cryst (Macrobid 100 mg Capsule) 100 Mg Capsule, 1 TAB PO BID Prescribed by: SHAQ OLSEN on 06/11/21 0207 Nitrofurantoin Monohyd/M-Cryst (Macrobid 100 mg Capsule) 100 Mg Capsule, 1 TAB PO BID Prescribed by: TRUDY CURRIE on 05/30/22 1907 Nitrofurantoin Monohyd/M-Cryst (Macrobid 100 mg Capsule) 100 Mg Capsule, 1 TAB PO BID Prescribed by: SHAQ OLSEN on 07/21/22 215 Ofloxacin (Floxin (Non-Formulary)) 5 Ml Drops, 3 DROPS RIGHT EAR BID Prescribed by: CELIA HUGHES on 07/05/20 1426 Ondansetron (Ondansetron Odt) 4 Mg Tab.rapdis, 4 MG PO Q6H PRN for NAUSEA/VOMITING Prescribed by: HAMMAD ROACH on 04/30/21 1134 Ondansetron (Ondansetron Odt) 4 Mg Tab.rapdis, 4 MG PO Q4H Prescribed by: SHAQ OLSEN on 07/21/222056 Prednisone (Prednisone) 20 Mg Tab, 40 MG PO DAILY Prescribed by: SHAQ OLSEN on 03/10/20 0232 Prednisone (Prednisone) 50 Mg Tab, 50 MG PO DAILY Prescribed by: BENEDICTO MARTÍNEZ MD on 02/06/22 0231 Tramadol HCl (Tramadol HCl) 50 Mg Tablet, 50 MG PO Q4H PRN for PAIN Prescribed by: TRUDY CURRIE on 06/27/23 1429 Review of Systems Review of Systems Constitutional: see HPI Past Yldminl-Qvzgms-Dftkke Hx Patient Social History Tobacco Use?: No Use of E-Cig and/or Vaping dev: No Substance use?: No Alcohol Use?: No Immunizations Up To Date Tetanus Booster (TDap): Less than 5yrs PED Vaccines UTD: Yes First/Initial COVID19 Vaccinat: DECEMBER 2020 Second COVID19 Vaccination Alex: JANUARY 2021 Third COVID19 Vaccination Date: JUL 2021 Seasonal Allergies Seasonal Allergies: Yes Past Medical History Surgery/Hospitalization HX: Hx seizure disorder. R kidney removed, HTN, HIGH CHOLESTEROL,HEADACHES,PCOS, ANXIETY/DEPRESSION, PREDIABETIC SX HISTORYTUBES IN EARS, RIGHT KIDNEY REMOVAL, DENTAL, "TUMOR REMOVED FROM TOP OF MOUTH", TONSILS AND ADNOIDS Surgeries: Yes Adenoidectomy, Ear Surgery, Nephrectomy, Renal, Tonsillectomy Respiratory: No Cardiac: Yes Heart Murmur, High Cholesterol, Hypertension, Irregular Heartbeat Neurological: Yes Headaches /Migraines, Seizure Disorder Reproductive Disorders: No Female Reproductive Disorders: Polycystic Ovarian Dis Genitourinary: Yes (only one kidney) Bladder Infection Gastrointestinal: No Musculoskeletal: No Endocrine: Yes (PCOS; MORBID OBESITY; "PREDIABETES" ) HEENT: Yes (S/P BMT'S; DECREASED HEARING IN BOTH EAR;BENIGN TUMOR-ROOF OF MOUTH REMOVED) Chronic Ear Infection Hearing Impairment: Hard of Hearing Cancer: No Psychosocial: Yes Anxiety, Depression Integumentary: Yes (skin issues on lt leg) Blood Disorders: No Family Medical History No Pertinent Family Hx SOCIAL HISTORY: -ETOH--OCCASIONAL USE -DRUGS--DENIES USE -SMOKING--QUIT 2011 ADDITIONAL PAST MEDICAL HISTORY: HAD SEIZURES CHILD AND WAS ON MEDICATIONS UNTIL AGE 10; NO SEIZURES FOR YEARS, THEN STARTED HAVING SEIZURES AGAIN 10/2017, AND HAS BEEN BACK ON SEIZURE MEDICATIONS SINCE THEN. THEY POSSIBLY HAVE BEEN RELATED TO MIGRAINES, BUT ON PREVIOUS ER VISITS, THE SEIZURES HAVE BEEN ALL SELF-REPORTED AND NONE HAVE EVER BEEN WITNESSED AND PT HAS NEVER HAD AN EEG PAST SURGICAL HISTORY: -BMT'S -REMOVAL OF BENIGN TUMOR FROM ROOF OF MOUTH -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 -TONSILLECTOMY AND ADENOIDECTOMY Physical Exam Vital Signs Vital Signs - First Documented 07/24/23 10:47 Temp 36.5 Pulse 98 Resp 17 B/P (MAP) 147/78 (101) O2 Delivery Room Air Capillary Refill : Height, Weight, BMI Height: 5'5.00" Weight: 260lbs. 0oz. 117.513359ly; 46.00 BMI Method:Actual General Appearance: WD/WN, no apparent distress HEENT: PERRL/EOMI, normal ENT inspection Neck: normal inspection, other (Cervical collar in place. She has midline cervical tenderness diffusely without any step-offs.) Respiratory: chest non-tender, lungs clear, normal breath sounds, no respiratory distress, no accessory muscle use Cardiovascular: regular rate, rhythm, no murmur Gastrointestinal: normal bowel sounds, non tender, soft, no organomegaly Extremities: normal range of motion, non-tender, normal inspection, normal capillary refill Neurologic/Psychiatric: program coordinator executive education II-XII nml as tested, no motor/sensory deficits, alert, normal mood/affect, oriented x 3 Skin: normal color, warm/dry Progress/Results/Core Measures Results/Orders My Orders Orders - MIMA GIBBONS DO Ct Head/Cervical Spine Wo (07/24/23 10:55) Vital Signs/I&O 07/24/23 10:47 Temp 36.5 Pulse 98 Resp 17 B/P (MAP) 147/78 (101) O2 Delivery Room Air Departure Communication (Admissions) Patient has daily seizures and states this was typical for her. She is concerned about a headache and some neck pain after her fall. CT scans will be obtained and pending at this time. She is neurologically intact. No indication for any labs or other work-up at this time given her significant seizure history. Impression Primary Impression: Seizure disorder Additional Impression: Neck pain Disposition: 01 HOME, SELF-CARE Condition: Stable Departure-Patient Inst. Referrals: KEYANA PRIETO DO (PCP/Family) Primary Care Physician Patient Instructions: Seizures, Adult (DC) Add. Discharge Instructions: Your CT scan of your head and your neck are negative for any significant injuries. Please continue all previous medication as previously prescribed. Follow-up with your neurologist to see if they have any recommendations for changes to decrease the frequency of your seizure activity. Use ibuprofen and Tylenol for any headache or neck pain. All discharge instructions reviewed with patient and/or family. Voiced understanding. MIMA GIBBONS DO Jul 24, 2023 11:05
--- NOTE | 2023-07-24 11:48 | Diagnostic Imaging Report ---
PROCEDURE: CT head and CT cervical spine without contrast. TECHNIQUE: Multiple contiguous axial images were obtained through the brain and cervical spine without the use of intravenous contrast. Sagittal and coronal reformations through the cervical spine were then performed. Auto Exposure Controls were utilized during the CT exam to meet ALARA standards for radiation dose reduction. INDICATION: Fall and possible seizure with headache and neck pain. COMPARISON: Correlation is made with prior CT of 05/21/2023. FINDINGS: CT HEAD: The ventricles and sulci are within normal limits. No sulcal effacement or midline shift is identified. No acute intra-axial or extra-axial hemorrhage is detected. Cisterns are patent. Visualized paranasal sinuses are clear. IMPRESSION: No acute intracranial process is detected. CT CERVICAL SPINE: Alignment is normal. No fracture or subluxation is identified. Prevertebral tissues are within normal limits. Odontoid is intact. IMPRESSION: No acute bony abnormality is identified. Dictated by: Dictated on workstation # [id number]
== END 2023-07-24 12:10 | disposition home or self-care (01) ==
LOC: EDUNIT# 10:47 → ER 10:48
DX: G40.909 Epilepsy, unspecified, not intractable, without status epilepticus (principal); M54.2 Cervicalgia; E66.01 Morbid (severe) obesity due to excess calories; Z79.899 Other long term (current) drug therapy; Z87.891 Personal history of nicotine dependence; Z68.42 Body mass index [BMI] 45.0-49.9, adult
CPT/HCPCS: 70450; 72125

== ENCOUNTER 2023-07-28 18:20 | Emergency (ER) | payer MEDICAID ==
[~2023-07-28] VITALS: Ht 165 cm; Wt 145.0 kg
--- NOTE | 2023-07-28 18:41 | ED General ---
General Stated Complaint: CHEST PAIN, VOMITING Source of Information: Patient Exam Limitations: No Limitations History of Present Illness Date Seen by Provider: Jul 28, 2023 Time Seen by Provider: 18:38 Initial Comments Patient is a 27-year-old female who presents to the ED for chest pain, difficulty breathing, vomiting since Friday. Symptoms have been ongoing since Friday. She reports substernal chest pain described as squeezing constant rates 10 out of 10. Pain does not radiate. Associated shortness of breath worse with deep inspiration patient states she started vomiting Friday with small amount of bright red-tinged blood. She denies of any diarrhea. Not currently on blood thinners. No recent travels or surgeries. She states she had a negative COVID influenza at the clinic on Friday. She denies history of heart disease. She denies of any recent travels or surgeries, leg swelling. Denies control. History of seizures. She denies history of similar type symptoms in the past. She denies of any abdominal pain, pain with urination, frequent urination, alcohol use, excessive NSAID use. No history of GI bleed. Allergies and Home Medications Allergies Coded Allergies: cephalexin (Verified Allergy, Severe, soa, 07/13/20) divalproex sodium (Verified Allergy, Severe, Hives, 05/29/23) topiramate (Unverified Allergy, Intermediate, 04/30/21) hives naproxen (Verified Allergy, Mild, 06/23/22) amoxicillin (Verified Allergy, Unknown, 04/06/19) carbamazepine (Verified Allergy, Unknown, 04/06/19) shellfish derived (Verified Allergy, Unknown, 07/20/19) Penicillins (Unverified Adverse Reaction, Intermediate, 04/06/19) Sulfa (Sulfonamide Antibiotics) (Unverified Adverse Reaction, Intermediate, 04/06/19) Patient Home Medication List Home Medication List Reviewed: Yes Albuterol Sulfate (Ventolin Hfa) 1 Puff Puff, 2 PUFF IH Q4H Prescribed by: BENEDICTO MARTÍNEZ MD on 02/06/22 023 Azithromycin (Azithromycin) 250 Mg Tablet, 250 MG PO UD Prescribed by: TRUDY CURRIE on 07/28/232013 Butalb/Acetaminophen/Caffeine (Esgic Capsule) 1 Each Capsule, 2 EACH PO Q6H PRN for headache Prescribed by: CELIA HUGHES on 12/17/19 1631 Cefuroxime Axetil (Cefuroxime) 250 Mg Tablet, 250 MG PO BID Prescribed by: CELIA HUGHES on 07/28/21 191 Ciprofloxacin HCl/Dexameth (Ciproflox-Dexameth Otic Susp) 0.3 %-0.1 % Drops.susp, 3 DROPS OT BID Prescribed by: Rosi Hernandez on 05/29/23 1223 Clindamycin HCl (Clindamycin HCl) 300 Mg Capsule, 300 MG PO TID Prescribed by: STEF NAVAS on 08/15/20 1646 Cyclobenzaprine HCl (Cyclobenzaprine HCl) 10 Mg Tablet, 10 MG PO Q8H PRN for SPASMS Prescribed by: SHAQ OLSEN on 01/15/21 0025 Cyclobenzaprine HCl (Cyclobenzaprine HCl) 10 Mg Tablet, 10 MG PO Q8H PRN for SPASMS Prescribed by: HAMMAD ROACH on 05/22/22 1108 Doxycycline Hyclate (Doxycycline Hyclate) 100 Mg Tablet, 100 MG PO BID Prescribed by: CELIA HUGHES on 12/08/21 1938 Erythromycin Base (Erythromycin Opthalmic Ointment) 5 Mg/Gram (0.5 %) Oint...g., 0 OP Q4H Prescribed by: OLMAN NEWTON on 03/20/22 1121 Fluoxetine HCl (Prozac) 20 Mg Capsule, Unknown Dose PO, (Reported) Entered as Reported by: FATOUMATA LIN on 09/01/19 044 Hydroxyzine Pamoate (Vistaril) 25 Mg Capsule, Unknown Dose PO, (Reported) Entered as Reported by: FATOUMATA LIN on 09/01/19 044 Levetiracetam (Keppra) 1,000 Mg Tablet, 1,000 MG PO TID, (Reported) Entered as Reported by: GRISELDA MARTINEZ on 07/15/19 165 Medroxyprogesterone Acetate (Provera) 10 Mg Tablet, 10 MG PO DAILY Prescribed by: STEF NAVAS on 08/15/20 1647 Metformin HCl (Metformin HCl) 500 Mg Tablet, 500 MG PO BID Prescribed by: CELIA HUGHES on 07/28/21 1837 Mometasone Furoate (Mometasone Furoate) 45 Gm Cream..g., 45 GM TP TID Prescribed by: SHAQ OLSEN on 03/10/20 023 Nitrofurantoin Macrocrystal (Nitrofurantoin) 100 Mg Capsule, 100 MG PO BID Prescribed by: STEF NAVAS on 07/02/21 210 Nitrofurantoin Monohyd/M-Cryst (Macrobid 100 mg Capsule) 100 Mg Capsule, 1 TAB PO BID Prescribed by: SHAQ OLSEN on 06/11/21 0207 Nitrofurantoin Monohyd/M-Cryst (Macrobid 100 mg Capsule) 100 Mg Capsule, 1 TAB PO BID Prescribed by: TRUDY CURRIE on 05/30/22 190 Nitrofurantoin Monohyd/M-Cryst (Macrobid 100 mg Capsule) 100 Mg Capsule, 1 TAB PO BID Prescribed by: SHAQ OLSEN on 07/21/22 215 Ofloxacin (Floxin (Non-Formulary)) 5 Ml Drops, 3 DROPS RIGHT EAR BID Prescribed by: CELIA HUGHES on 07/05/20 1426 Ondansetron (Ondansetron Odt) 4 Mg Tab.rapdis, 4 MG PO Q6H PRN for NAUSEA/VOMI TING Prescribed by: HAMMAD ROACH on 04/30/21 1134 Ondansetron (Ondansetron Odt) 4 Mg Tab.rapdis, 4 MG PO Q4H Prescribed by: SHAQ OLSEN on 07/21/222056 Ondansetron (Ondansetron Odt) 4 Mg Tab.rapdis, 4 MG SL Q4H PRN for NAUSEA/VOMITING Prescribed by: TRUDY CURRIE on 07/28/232013 Prednisone (Prednisone) 20 Mg Tab, 40 MG PO DAILY Prescribed by: SHAQ OLSEN on 03/10/20 023 Prednisone (Prednisone) 50 Mg Tab, 50 MG PO DAILY Prescribed by: BENEDICTO MARTÍNEZ MD on 02/06/22 023 Tramadol HCl (Tramadol HCl) 50 Mg Tablet, 50 MG PO Q4H PRN for PAIN Prescribed by: TRUDY CURRIE on 06/27/23 1429 Review of Systems Review of Systems Constitutional: No chills, No diaphoresis, No malaise, No weakness EENTM: No ear pain, No blurred vision Respiratory: cough Cardiovascular: chest pain Gastrointestinal: No abdominal pain, No diarrhea; hematemesis, nausea, vomiting Genitourinary: No decreased output, No discharge, No dysuria, No frequency Musculoskeletal: No back pain, No joint pain Skin: No change in color, No change in hair/nails All Other Systems Reviewed Negative Unless Noted: Yes Past Siahxuv-Ctolns-Oakyib Hx Immunizations Up To Date Tetanus Booster (TDap): Less than 5yrs PED Vaccines UTD: Yes First/Initial COVID19 Vaccinat: DECEMBER 2020 Second COVID19 Vaccination Alex: JANUARY 2021 Third COVID19 Vaccination Date: JUL 2021 Seasonal Allergies Seasonal Allergies: Yes Past Medical History Surgery/Hospitalization HX: Hx seizure disorder. R kidney removed, HTN, HIGH CHOLESTEROL,HEADACHES,PCOS, ANXIETY/DEPRESSION, PREDIABETIC SX HISTORYTUBES IN EARS, RIGHT KIDNEY REMOVAL, DENTAL, "TUMOR REMOVED FROM TOP OF MOUTH", TONSILS AND ADNOIDS Surgeries: Yes Adenoidectomy, Ear Surgery, Nephrectomy, Renal, Tonsillectomy Respiratory: No Cardiac: Yes Heart Murmur, High Cholesterol, Hypertension, Irregular Heartbeat Neurological: Yes Headaches /Migraines, Seizure Disorder Reproductive Disorders: No Female Reproductive Disorders: Polycystic Ovarian Dis Genitourinary: Yes (only one kidney) Bladder Infection Gastrointestinal: No Musculoskeletal: No Endocrine: Yes (PCOS; MORBID OBESITY; "PREDIABETES" ) HEENT: Yes (S/P BMT'S; DECREASED HEARING IN BOTH EAR;BENIGN TUMOR-ROOF OF MOUTH REMOVED) Chronic Ear Infection Hearing Impairment: Hard of Hearing Cancer: No Psychosocial: Yes Anxiety, Depression Integumentary: Yes (skin issues on lt leg) Blood Disorders: No Family Medical History No Pertinent Family Hx SOCIAL HISTORY: -ETOH--OCCASIONAL USE -DRUGS--DENIES USE -SMOKING--QUIT 2011 ADDITIONAL PAST MEDICAL HISTORY: HAD SEIZURES CHILD AND WAS ON MEDICATIONS UNTIL AGE 10; NO SEIZURES FOR YEARS, THEN STARTED HAVING SEIZURES AGAIN 10/2017, AND HAS BEEN BACK ON SEIZURE MEDICATIONS SINCE THEN. THEY POSSIBLY HAVE BEEN RELATED TO MIGRAINES, BUT ON PREVIOUS ER VISITS, THE SEIZURES HAVE BEEN ALL SELF-REPORTED AND NONE HAVE EVER BEEN WITNESSED AND PT HAS NEVER HAD AN EEG PAST SURGICAL HISTORY: -BMT'S -REMOVAL OF BENIGN TUMOR FROM ROOF OF MOUTH -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 -TONSILLECTOMY AND ADENOIDECTOMY Physical Exam Vital Signs Vital Signs - First Documented 07/28/23 18:27 Temp 36.7 Pulse 94 Resp 16 B/P (MAP) 138/70 (92) Pulse Ox 100 O2 Delivery Room Air Capillary Refill : Height, Weight, BMI Height: 5'5.00" Weight: 260lbs. 0oz. 117.449225hf; 46.00 BMI Method:Actual General Appearance: No No Apparent Distress, No WD/WN Eyes: Bilateral Eye Normal Inspection, Bilateral Eye PERRL, Bilateral Eye EOMI HEENT: PERRL/EOMI, TMs Normal, Normal ENT Inspection, Pharynx Normal Neck: Full Range of Motion, Normal Inspection, Non Tender, Supple Respiratory: Chest Non Tender, Lungs Clear, Normal Breath Sounds, No Accessory Muscle Use, No Respiratory Distress Cardiovascular: Regular Rate, Rhythm, No Edema, No Gallop, No JVD, No Murmur Gastrointestinal: Normal Bowel Sounds, No Organomegaly, No Pulsatile Mass Back: Normal Inspection, No CVA Tenderness Extremity: Normal Capillary Refill, Normal Inspection, Normal Range of Motion, Non Tender Neurologic/Psychiatric: Alert, Oriented x3, No Motor/Sensory Deficits, Normal Mood/Affect, visualization developer II-XII Norm as Tested Skin: Normal Color, Warm/Dry Progress/Results/Core Measures Suspected Sepsis SIRS Temperature: Pulse: Respiratory Rate: Laboratory Tests 07/28/23 18:35: White Blood Count 5.7 Blood Pressure / Mean: Laboratory Tests 07/28/23 18:35: Creatinine 0.80, Platelet Count 265, Total Bilirubin 0.4 Results/Orders Lab Results Laboratory Tests Test 07/28/23 18:35 07/28/23 19:30 Range/Units White Blood Count 5.7 4.3-11.0 10^3/uL Red Blood Count 4.20 3.80-5.11 10^6/uL Hemoglobin 11.3 L 11.5-16.0 g/dL Hematocrit 36 35-52 % Mean Corpuscular Volume 86 80-99 fL Mean Corpuscular Hemoglobin 27 25-34 pg Mean Corpuscular Hemoglobin Concent 32 32-36 g/dL Red Cell Distribution Width 14.6 H 10.0-14.5 % Platelet Count 265 130-400 10^3/uL Mean Platelet Volume 10.0 9.0-12.2 fL Immature Granulocyte % (Auto) 3 % Neutrophils (%) (Auto) 65 42-75 % Lymphocytes (%) (Auto) 20 12-44 % Monocytes (%) (Auto) 12 0-12 % Eosinophils (%) (Auto) 0 0-10 % Basophils (%) (Auto) 1 0-10 % Neutrophils # (Auto) 3.7 1.8-7.8 10^3/uL Lymphocytes # (Auto) 1.1 1.0-4.0 10^3/uL Monocytes # (Auto) 0.7 0.0-1.0 10^3/uL Eosinophils # (Auto) 0.0 0.0-0.3 10^3/uL Basophils # (Auto) 0.0 0.0-0.1 10^3/uL Immature Granulocyte # (Auto) 0.1 0.0-0.1 10^3/uL D-Dimer 0.48 0.00-0.49 UG/ML Sodium Level 137 135-145 MMOL/L Potassium Level 4.1 3.6-5.0 MMOL/L Chloride Level 103 98-107 MMOL/L Carbon Dioxide Level 23 21-32 MMOL/L Anion Gap 11 5-14 MMOL/L Blood Urea Nitrogen 14 7-18 MG/DL Creatinine 0.80 0.60-1.30 MG/DL Estimat Glomerular Filtration Rate 102 BUN/Creatinine Ratio 18 Glucose Level 98 70-105 MG/DL Calcium Level 8.5 8.5-10.1 MG/DL Corrected Calcium 8.7 8.5-10.1 MG/DL Total Bilirubin 0.4 0.1-1.0 MG/DL Aspartate Amino Transf (AST/SGOT) 14 5-34 U/L Alanine Aminotransferase (ALT/SGPT) 19 0-55 U/L Alkaline Phosphatase 89 40-136 U/L Troponin I < 0.028 <0.028 NG/ML C-Reactive Protein High Sensitivity 10.83 H 0.00-0.50 MG/DL B-Type Natriuretic Peptide < 10.0 <100.0 PG/ML Total Protein 7.0 6.4-8.2 GM/DL Albumin 3.8 3.2-4.5 GM/DL Lipase 28 8-78 U/L Urine Color YELLOW Urine Clarity CLEAR Urine pH 6.0 5-9 Urine Specific [place] 1.020 1.016-1.022 Urine Protein NEGATIVE NEGATIVE Urine Glucose (UA) TRACE H NEGATIVE Urine Ketones NEGATIVE NEGATIVE Urine Nitrite NEGATIVE NEGATIVE Urine Bilirubin NEGATIVE NEGATIVE Urine Urobilinogen 4.0 < = 1.0 MG/DL Urine Leukocyte Esterase TRACE H NEGATIVE Urine RBC (Auto) NEGATIVE NEGATIVE Urine RBC NONE /HPF Urine WBC 2-5 /HPF Urine Squamous Epithelial Cells 2-5 /HPF Urine Crystals NONE /LPF Urine Bacteria FEW H /HPF Urine Casts NONE /LPF Urine Mucus NEGATIVE /LPF Urine Culture Indicated YES Urine Test NEGATIVE NEGATIVE My Orders Orders - AMANDA RUIZ Cbc And Automated Diff (07/28/23 18:31) Comprehensive Metabolic Panel (07/28/23 18:31) Lipase (07/28/23 18:31) Troponin I [place] (07/28/23 18:31) Ekg Tracing (07/28/23 18:31) Chest 1 View, Ap/Pa Only (07/28/23 18:31) Hs C Reactive Protein (07/28/23 18:31) Ua Culture If Indicated (07/28/23 18:31) Hcg,Qualitative Urine (07/28/23 19:11) Bnp [place] (07/28/23 19:14) Fibrin Degradation Products (07/28/23 19:16) Urine Culture (07/28/23 19:30) Vital Signs/I&O 07/28/23 07/28/23 18:27 19:00 Temp 36.7 36.4 Pulse 94 94 Resp 16 16 B/P (MAP) 138/70 (92) 128/58 Pulse Ox 100 100 O2 Delivery Room Air Room Air Capillary Refill : ECG Comment Sinus rhythm, voltage criteria for LVH, nonspecific T wave abnormality, 92 bpm, QRS duration 98 MS, QTc 378 MS. Departure Communication (PCP) Differential diagnosis, ACS, PE, pneumonia. Patient reports of substernal chest pain. Associate shortness of breath. Vomiting. She reports bright red blood in her vomit or mucus. Denies of any diarrhea or current abdominal pain. No known cardiac history. Cardiac work-up was initiated. EKG shows sinus rhythm. No ST elevation or depression. No arrhythmia. CBC, CMP grossly unremarkable. CRP at 10. Normal D-dimer, troponin and BNP. Chest x-ray was negative for pneumonia, pneumothorax. Moderate pulmonary vascular congestion noted. She does not appear fluid overloaded. Vital signs stable. Afebrile. She had no episodes of vomiting or coughing here of any type of hematemesis. Denies any diarrhea. Soft abdomen. Urinalysis showed trace leukocytes and few bacteria but no strong evidence of UTI. Culture pending. Patient was eager to leave. She did not want anything for the chest pain. Suspect URI symptoms. Will discharge with Zofran for vomiting. Z-Almas for any atypical type infections. Denies of excessive alcohol use or NSAID use. No history of GI bleed. Suggest starting a PPI. Clear fluids for the next 2 or 3 days. If any worsening symptoms return back to ED for further evaluation. Follow-up your PCP in 2 to 3 days for reevaluation. Impression Primary Impression: Chest pain Additional Impression: Bronchitis Disposition: 01 HOME, SELF-CARE Condition: Stable Departure-Patient Inst. Decision time for Depature: 20:13 Referrals: KEYANA PRIETO DO (PCP/Family) Primary Care Physician Patient Instructions: Chest Pain, Adult ED Add. Discharge Instructions: Recommend follow-up your PCP in 2 to 3 days for reevaluation. Recommend staying hydrated. Zofran for nausea. Z-Almas for upper respiratory infection Scripts Azithromycin (Azithromycin) 250 Mg Tablet 250 MG PO UD, #6 TAB TAKE 2 TABLETS ON DAY ONE THEN TAKE 1 TABLET DAILY FOR FOUR MORE DAYS Prov: AMANDA RUIZ 07/28/23 Ondansetron (Ondansetron Odt) 4 Mg Tab.rapdis 4 MG SL Q4H PRN for NAUSEA/VOMITING, #6 TAB Prov: AMANDA RUIZ 07/28/23 AMANDA RUIZ Jul 28, 2023 18:41
[2023-07-28 18:42] LABS: BASOPHILS % (AUTO) 1 % (0-10); EOSINOPHILS % (AUTO) 0 % (0-10); HEMATOCRIT 36 % (35-52); HEMOGLOBIN 11.3 g/dL (11.5-16.0); LYMPHOCYTES # (AUTO) 1.1 10^3/uL (1.0-4.0); LYMPHOCYTES % (AUTO) 20 % (12-44); MEAN CORPUSCULAR HEMOGLOBIN 27 pg (25-34); MEAN CORPUSCULAR HGB CONC 32 g/dL (32-36); MEAN CORPUSCULAR VOLUME 86 fL (80-99); MONOCYTES # (AUTO) 0.7 10^3/uL (0.0-1.0); MONOCYTES % (AUTO) 12 % (0-12); NEUTROPHILS # (AUTO) 3.7 10^3/uL (1.8-7.8); NEUTROPHILS % (AUTO) 65 % (42-75); PLATELET COUNT 265 10^3/uL (130-400); WHITE BLOOD COUNT 5.7 10^3/uL (4.3-11.0)
[2023-07-28 19:00] VITALS: BP 128/58
[2023-07-28 19:07] LABS: ALANINE AMINOTRANSFERASE 19 U/L (0-55); ALBUMIN 3.8 GM/DL (3.2-4.5); ALKALINE PHOSPHATASE 89 U/L (40-136); BILIRUBIN,TOTAL 0.4 MG/DL (0.1-1.0); BUN/CREATININE RATIO 18; CALCIUM 8.5 MG/DL (8.5-10.1); CARBON DIOXIDE 23 MMOL/L (21-32); CHLORIDE 103 MMOL/L (98-107); GFR ESTIMATED 102; GLUCOSE 98 MG/DL (70-105); LIPASE 28 U/L (8-78); POTASSIUM 4.1 MMOL/L (3.6-5.0); SODIUM 137 MMOL/L (135-145)
--- NOTE | 2023-07-28 19:09 | Diagnostic Imaging Report ---
EXAM: CHEST 1 VIEW, AP/PA ONLY INDICATION: Chest pain. COMPARISON: 05/27/2021. FINDINGS: Normal heart size. Moderate pulmonary vascular congestion is accentuated by low lung volumes. No pleural effusion or pneumothorax. No acute osseous findings. IMPRESSION: Moderate pulmonary vascular congestion, accentuated by low lung volumes. This is new compared to the prior. Dictated by: Dictated on workstation # [id number]
[2023-07-28 19:45] LABS: BACTERIA,URINE FEW /HPF; BILIRUBIN,URINE NEGATIVE (NEGATIVE); CLARITY,URINE CLEAR; COLOR,URINE YELLOW; GLUCOSE, URINE (UA) TRACE (NEGATIVE); KETONES,URINE NEGATIVE (NEGATIVE); LEUKOCYTE ESTERASE ,URINE TRACE (NEGATIVE); NITRITE,URINE NEGATIVE (NEGATIVE); PROTEIN,URINE NEGATIVE (NEGATIVE)
[2023-07-28] MEDS ORDERED: ONDA4TAB11 SL (20:14)
[2023-07-28] MEDS ORDERED: AZIT250T12 PO (20:14)
== END 2023-07-28 20:20 | disposition home or self-care (01) ==
LOC: EDUNIT# 18:20 → ER 18:23
DX: J40 Bronchitis, not specified as acute or chronic (principal); E66.01 Morbid (severe) obesity due to excess calories; Z68.42 Body mass index [BMI] 45.0-49.9, adult; Z87.891 Personal history of nicotine dependence
CPT/HCPCS: 36415; 71045; 80053; 81000; 83690; 83880; 84484; 84703; 85025; 85379; 86141; 87088; 93005

== ENCOUNTER 2023-09-06 18:27 | Emergency (ER) | payer MEDICAID ==
[~2023-09-06] VITALS: Ht 165.1 cm; Wt 126.5 kg
[~2023-09-06 18:27] MED LIST changes: +ONDA4TAB11 SL
--- NOTE | 2023-09-06 19:13 | ED Headache ---
General Chief Complaint: Head/Cervical Problems Stated Complaint: MIGRAINE Nursing Triage Note: STATES SHE HAS HAD A MIGRAINE SINCE FRIDAY, VERBALIZES HER MEDICATION FOR PAIN IS NOT WORKING FOR HER AT HOME. HAS BEEN ORDERED TO TAKE 500 MG OF NAPROXEN EVERY 6 HOURS BY HER NEUROLIGIST AT , VERBALIZES HER PROMETHAZINE IS WORKING FOR HER NAUSEA. STATES SHE IS SEEING SPOTS RATES HER PAIN A /10. Source: patient Exam Limitations: no limitations History of Present Illness Date Seen by Provider: Sep 06, 2023 Time Seen by Provider: 18:45 Initial Comments 18-year-old female presents to the ER with complaint of a migraine since 05/01/2023. She states that it started in her forehead then began to radiate backwards towards her neck, states that now the pain is all over her head. She states that she has started seeing spots and has had blurry vision and lightheadedness. She is also reporting nausea. States that she is vomiting everything she tries to eat or drink. Patient has history of migraines. States that this 1 is different because of the seeing spots, blurry vision, and lightheadedness. She also states that this is the worst headache of her life. She states that the pain started suddenly on Friday. She takes naproxen every 6 hours which has not been helping. She also has a prescription for Zofran and P henergan and states that these are not helping. She reports sensitivity to light and sound. Denies fevers, runny nose, nasal congestion. Allergies and Home Medications Allergies Coded Allergies: cephalexin (Verified Allergy, Severe, soa, 09/06/23) divalproex sodium (Verified Allergy, Severe, Hives, 09/06/23) topiramate (Unverified Allergy, Intermediate, 09/06/23) hives amoxicillin (Verified Allergy, Unknown, 09/06/23) carbamazepine (Verified Allergy, Unknown, 09/06/23) shellfish derived (Verified Allergy, Unknown, 09/06/23) Penicillins (Unverified Adverse Reaction, Intermediate, 09/06/23) Sulfa (Sulfonamide Antibiotics) (Unverified Adverse Reaction, Intermediate , 09/06/23) Patient Home Medication List Home Medication List Reviewed: Yes Albuterol Sulfate (Ventolin Hfa) 1 Puff Puff, 2 PUFF IH Q4H Prescribed by: BENEDICTO MARTÍNEZ MD on 02/06/22 0231 Azithromycin (Azithromycin) 250 Mg Tablet, 250 MG PO UD Prescribed by: TRUDY CURRIE on 07/28/232013 Butalb/Acetaminophen/Caffeine (Esgic Capsule) 1 Each Capsule, 2 EACH PO Q6H PRN for headache Prescribed by: CELIA HUGHES on 12/17/19 1631 Cefuroxime Axetil (Cefuroxime) 250 Mg Tablet, 250 MG PO BID Prescribed by: CELIA HUGHES on 07/28/21 191 Ciprofloxacin HCl/Dexameth (Ciproflox-Dexameth Otic Susp) 0.3 %-0.1 % Drops.susp, 3 DROPS OT BID Prescribed by: Rosi Hernandez on 05/29/23 1223 Clindamycin HCl (Clindamycin HCl) 300 Mg Capsule, 300 MG PO TID Prescribed by: STEF NAVAS on 08/15/20 1646 Cyclobenzaprine HCl (Cyclobenzaprine HCl) 10 Mg Tablet, 10 MG PO Q8H PRN for SPASMS Prescribed by: SHAQ OLSEN on 01/15/21 0025 Cyclobenzaprine HCl (Cyclobenzaprine HCl) 10 Mg Tablet, 10 MG PO Q8H PRN for SPASMS Prescribed by: HAMMAD ROACH on 05/22/22 1108 Doxycycline Hyclate (Doxycycline Hyclate) 100 Mg Tablet, 100 MG PO BID Prescribed by: CELIA HUGHES on 12/08/21 1938 Erythromycin Base (Erythromycin Opthalmic Ointment) 5 Mg/Gram (0.5 %) Oint...g., 0 OP Q4H Prescribed by: OLMAN NEWTON on 03/20/22 1121 Fluoxetine HCl (Prozac) 20 Mg Capsule, Unknown Dose PO, (Reported) Entered as Reported by: FTAOUMATA LIN on 09/01/19 044 Hydroxyzine Pamoate (Vistaril) 25 Mg Capsule, Unknown Dose PO, (Reported) Entered as Reported by: FATOUMATA LIN on 09/01/19 044 Levetiracetam (Keppra) 1,000 Mg Tablet, 1,000 MG PO TID, (Reported) Entered as Reported by: GRISELDA MARTINEZ on 07/15/19 1659 Medroxyprogesterone Acetate (Provera) 10 Mg Tablet, 10 MG PO DAILY Prescribed by: STEF NAVAS on 08/15/20 1647 Metformin HCl (Metformin HCl) 500 Mg Tablet, 500 MG PO BID Prescribed by: CELIA HUGHES on 07/28/21 183 Mometasone Furoate (Mometasone Furoate) 45 Gm Cream..g., 45 GM TP TID Prescribed by: SHAQ OLSEN on 03/10/20 023 Nitrofurantoin Macrocrystal (Nitrofurantoin) 100 Mg Capsule, 100 MG PO BID Prescribed by: STEF NAVAS on 07/02/21 210 Nitrofurantoin Monohyd/M-Cryst (Macrobid 100 mg Capsule) 100 Mg Capsule, 1 TAB PO BID Prescribed by: SHAQ OLSEN on 06/11/21 0207 Nitrofurantoin Monohyd/M-Cryst (Macrobid 100 mg Capsule) 100 Mg Capsule, 1 TAB PO BID Prescribed by: TRUDY CURRIE on 05/30/22 1907 Nitrofurantoin Monohyd/M-Cryst (Macrobid 100 mg Capsule) 100 Mg Capsule, 1 TAB PO BID Prescribed by: SHAQ OLSEN on 07/21/22 215 Ofloxacin (Floxin (Non-Formulary)) 5 Ml Drops, 3 DROPS RIGHT EAR BID Prescribed by: CELIA HUGHES on 07/05/20 1426 Ondansetron (Ondansetron Odt) 4 Mg Tab.rapdis, 4 MG PO Q6H PRN for NAUSEA/VOMITING Prescribed by: HAMMAD ROACH on 04/30/21 1134 Ondansetron (Ondansetron Odt) 4 Mg Tab.rapdis, 4 MG PO Q4H Prescribed by: SHAQ OLSEN on 07/21/222056 Ondansetron (Ondansetron Odt) 4 Mg Tab.rapdis, 4 MG SL Q4H PRN for NAUSEA/VOMITING Prescribed by: TRUDY CURRIE on 07/28/232013 Prednisone (Prednisone) 20 Mg Tab, 40 MG PO DAILY Prescribed by: SHAQ OLSEN on 03/10/20 023 Prednisone (Prednisone) 50 Mg Tab, 50 MG PO DAILY Prescribed by: BENEDICTO MARTÍNEZ MD on 02/06/22 0231 Tramadol HCl (Tramadol HCl) 50 Mg Tablet, 50 MG PO Q4H PRN for PAIN Prescribed by: TRUDY CURRIE on 06/27/23 1429 Review of Systems Review of Systems Constitutional: see HPI Past Zglfzsd-Qohzsx-Pclrmd Hx Patient Social History Tobacco Use?: No Use of E-Cig and/or Vaping dev: No Substance use?: No Alcohol Use?: No Pt feels they are or have been: No Immunizations Up To Date Tetanus Booster (TDap): Less than 5yrs PED Vaccines UTD: Yes Influenza Vaccine Up-to-Date: Yes; Up-to-Date First/Initial COVID19 Vaccinat: 4 SHOTS Second COVID19 Vaccination Alex: JANUARY 2021 Third COVID19 Vaccination Date: JUL 2021 Seasonal Allergies Seasonal Allergies: Yes Past Medical History Surgery/Hospitalization HX: Hx seizure disorder. R kidney removed, HTN, HIGH CHOLESTEROL,HEADACHES,PCOS, ANXIETY/DEPRESSION, PREDIABETIC SX HISTORYTUBES IN EARS, RIGHT KIDNEY REMOVAL, DENTAL, "TUMOR REMOVED FROM TOP OF MOUTH", TONSILS AND ADNOIDS Surgeries: Yes Adenoidectomy, Ear Surgery, Nephrectomy, Renal, Tonsillectomy Respiratory: No Cardiac: Yes Heart Murmur, High Cholesterol, Hypertension, Irregular Heartbeat Neurological: Yes Headaches /Migraines, Seizure Disorder Last Menstrual Period: Aug 29, 2023 Reproductive Disorders: No Female Reproductive Disorders: Polycystic Ovarian Dis Genitourinary: Yes (only one kidney) Bladder Infection Gastrointestinal: No Musculoskeletal: No Endocrine: Yes (PCOS; MORBID OBESITY; "PREDIABETES" ) HEENT: Yes (S/P BMT'S; DECREASED HEARING IN BOTH EAR;BENIGN TUMOR-ROOF OF MOUTH REMOVED) Chronic Ear Infection Hearing Impairment: Hard of Hearing Cancer: No Psychosocial: Yes Anxiety, Depression Integumentary: Yes (skin issues on lt leg) Blood Disorders: No Family Medical History No Pertinent Family Hx SOCIAL HISTORY: -ETOH--OCCASIONAL USE -DRUGS--DENIES USE -SMOKING--QUIT 2011 ADDITIONAL PAST MEDICAL HISTORY: HAD SEIZURES CHILD AND WAS ON MEDICATIONS UNTIL AGE 10; NO SEIZURES FOR YEARS, THEN STARTED HAVING SEIZURES AGAIN 10/2017, AND HAS BEEN BACK ON SEIZURE MEDICATIONS SINCE THEN. THEY POSSIBLY HAVE BEEN RELATED TO MIGRAINES, BUT ON PREVIOUS ER VISITS, THE SEIZURES HAVE BEEN ALL SELF-REPORTED AND NONE HAVE EVER BEEN WITNESSED AND PT HAS NEVER HAD AN EEG PAST SURGICAL HISTORY: -BMT'S -REMOVAL OF BENIGN TUMOR FROM ROOF OF MOUTH -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 -TONSILLECTOMY AND ADENOIDECTOMY Physical Exam Vital Signs Vital Signs - First Documented 09/06/23 18:35 Temp 36.8 Pulse 66 Resp 18 B/P (MAP) 174/79 (110) Pulse Ox 98 O2 Delivery Room Air Capillary Refill : Less Than 3 Seconds Height, Weight, BMI Height: 5'5.00" Weight: 260lbs. 0oz. 117.522128ps; 46.00 BMI Method:Actual General Appearance: WD/WN, no apparent distress HEENT: PERRL/EOMI, TMs normal, other (Smile slightly uneven, flatter on left side, patient unable to puff out her cheeks evenly, left side does not puff out like right side, left eyebrow seems to not raise as high as right eyebrow. She does report pain in her jaw which is likely the cause of the unevenness.) Neck: non-tender, full range of motion, supple, normal inspection Cardiovascular: regular rate, rhythm Respiratory: lungs clear, normal breath sounds, no respiratory distress, no accessory muscle use Extremities: normal range of motion, normal inspection Psychiatric: alert, oriented x 3 Crainal Nerves: normal hearing, normal speech, PERRL Motor/Sensory: no motor deficit, no sensory deficit Skin: normal color, warm/dry Progress/Results/Core Measures Results/Orders My Orders Orders - ROSI MCKENZIE APRN Ct Head Wo (09/06/23 19:03) Diphenhydramine Injection (Diphenhydram (09/06/23 19:15) Prochlorperazine Injection (Prochlorpera (09/06/23 19:15) Ketorolac Injection (Ketorolac Injection (09/06/23 20:15) Medications Given in ED Current Medications Medications Dose Ordered Sig/Kayode Route Start Time Stop Time Status Last Admin Dose Admin Diphenhydramine HCl 25 mg ONCE ONCE IM 09/06/23 19:15 09/06/23 19:16 DC 09/06/23 19:32 25 MG Ketorolac Tromethamine 30 mg ONCE ONCE IM 09/06/23 20:15 09/06/23 20:16 DC 09/06/23 20:32 30 MG Prochlorperazine Edisylate 10 mg ONCE ONCE IM 09/06/23 19:15 09/06/23 19:16 DC 09/06/23 19:33 10 MG Vital Signs/I&O 09/06/23 09/06/23 18:35 21:07 Temp 36.8 36.8 Pulse 66 64 Resp 18 18 B/P (MAP) 174/79 (110) 138/72 Pulse Ox 98 99 O2 Delivery Room Air Room Air Blood Pressure Mean: 110 Progress Progress Note : Progress Note Patient seen and evaluated, resting comfortably in recliner, no acute distress. Smile is lightly uneven, left side slightly flattened. Patient unable to puff out the left cheek. Left eyebrow does not raise as high as right eyebrow just slightly. Patient does report pain in her jaw, this is likely the cause of the asymmetry of her face. Due to this, CT of the head ordered. Compazine and Benadryl ordered. 2010 CT reviewed. Negative for acute abnormality. Toradol injection ordered. 2099 patient reevaluated. States that her headache and jaw pain is gone. Facial symmetry reassessed. Patient's smile is more even now, she is able to puff out both cheeks. I considered a lumbar puncture due to patient reporting that this is the worst headache of her life, but patient has no nuchal rigidity or other meningeal signs suggesting need for a lumbar puncture. The headache was sudden onset, but it started several days ago, and the CT was negative so I am not concerned for subarachnoid hemorrhage that may not be present on CT. Patient is stable for discharge. Discharge structures and return precautions provided. Departure Impression Primary Impression: Migraine Disposition: HOME, SELF-CARE Condition: Stable Departure-Patient Inst. Decision time for Depature: 21:03 Referrals: KEYANA PRIETO DO (PCP/Family) Primary Care Physician Patient Instructions: Migraines (DC) Add. Discharge Instructions: Follow-up with your neurologist. Return for severe headache, vision changes, abnormal behavior, weakness on one side your body, or any other new, concerning, or worsening symptoms. All discharge instructions reviewed with patient and/or family. Voiced understanding. ROSI MCKENZIE APRN Sep 06, 2023 19:13
[2023-09-06] MEDS ORDERED: diphenhydrAMINE INJ 50 MG/ML VIAL IM ONE (19:15)
[2023-09-06] MEDS ORDERED: PROCHLORPERAZINE INJ 10 MG/2ML VIAL IM ONE (19:15)
--- NOTE | 2023-09-06 19:58 | Diagnostic Imaging Report ---
PROCEDURE: CT head without contrast. TECHNIQUE: Multiple contiguous axial images were obtained through the brain without the use of intravenous contrast. Auto Exposure Controls were utilized during the CT exam to meet ALARA standards for radiation dose reduction. INDICATION: 27-year-old female presents with migraine headaches, uneven facial movements, "seeing spots". COMPARISON: 07/24/2023. FINDINGS: Midline structures are not displaced. Lateral, 3rd and 4th ventricles are normal in size, shape and anatomic position. There is no mass, mass effect, hydrocephalus or hemorrhage. Neely-white differentiation is normal. There is no sulcal effacement. There is no abnormal extra-axial fluid collection or hemorrhage. Basilar cisterns appear normal. Sinuses, orbits and mastoid air cells are unremarkable. Bone windows show no calvarial change. IMPRESSION: Unremarkable nonenhanced CT brain. Dictated by: Dictated on workstation # [id number]
[2023-09-06] MEDS ORDERED: KETOROLAC INJ 30 MG/ML VIAL IM ONE (20:15)
[2023-09-06 21:07] VITALS: BP 138/72
== END 2023-09-06 21:07 | disposition home or self-care (01) ==
LOC: EDUNIT# 18:27 → ER 18:29
DX: G43.909 Migraine, unspecified, not intractable, without status migrainosus (principal); E66.01 Morbid (severe) obesity due to excess calories; Z68.42 Body mass index [BMI] 45.0-49.9, adult; Z87.891 Personal history of nicotine dependence
CPT/HCPCS: 70450; 96372

== ENCOUNTER 2023-09-20 19:27 | Emergency (ER) | payer MEDICAID ==
[~2023-09-20] VITALS: Ht 165.1 cm; Wt 122.0 kg
[2023-09-20 19:42] VITALS: BP 125/61
[2023-09-20] MEDS ORDERED: diphenhydrAMINE INJ 50 MG/ML VIAL IVP ONE (19:45)
[2023-09-20] MEDS ORDERED: KETOROLAC INJ 15 MG/ML VIAL IVP ONE (19:45)
[2023-09-20] MEDS ORDERED: NS IV 1000 ML 1,000 ML IV SCH (19:45)
[2023-09-20] MEDS ORDERED: PROCHLORPERAZINE INJ 10 MG/2ML VIAL IV ONE (19:45)
--- NOTE | 2023-09-20 19:50 | ED Headache ---
General Chief Complaint: Head/Cervical Problems Stated Complaint: MIGRAINE Nursing Triage Note: Pt presents with c/o migraine headache that started on 09/17. Pt has hx of migraine, she states she went to [facility] yesterday and was diagnosed with a bilateral ear infection, but they did not address her head pain. Source: patient Exam Limitations: no limitations History of Present Illness Date Seen by Provider: Sep 20, 2023 Time Seen by Provider: 19:39 Initial Comments 28-year-old female presents to the ER with complaint of migraine since 09/17/2023. Patient reports history of migraines. She reports that the pain is all over her head and spreading into her bilateral shoulders. She reports that she is seeing spots she also complains of dizziness. Reports sensitivity to light and sounds. Reports intermittent numbness in her face. Reports that her headache is similar to last time. She reports that earlier she thinks she passed out. She states that she was sitting, her vision started to go black. She did not hit her head or injure herself. She reports she had an episode of vomiting after this. She reports that she has taken naproxen, ibuprofen, Tylenol, and promethazine today without relief. She was seen at [facility] yesterday and diagnosed with bilateral ear infections. She was started on antibiotic eardrops. Allergies and Home Medications Allergies Coded Allergies: cephalexin (Verified Allergy, Severe, soa, 09/06/23) divalproex sodium (Verified Allergy, Severe, Hives, 09/06/23) topiramate (Unverified Allergy, Intermediate, 09/06/23) hives amoxicillin (Verified Allergy, Unknown, 09/06/23) carbamazepine (Verified Allergy, Unknown, 09/06/23) shellfish derived (Verified Allergy, Unknown, 09/06/23) Penicillins (Unverified Adverse Reaction, Intermediate, 09/06/23) Sulfa (Sulfonamide Antibiotics) (Unverified Adverse Reaction, Intermediate, 09/06/23) Patient Home Medication List Home Medication List Reviewed: Yes Albuterol Sulfate (Ventolin Hfa) 1 Puff Puff, 2 PUFF IH Q4H Prescribed by: BENEDICTO MARTÍNEZ MD on 02/06/22 0231 Azithromycin (Azithromycin) 250 Mg Tablet, 250 MG PO UD Prescribed by: TRUDY CURRIE on 07/28/232013 Butalb/Acetaminophen/Caffeine (Esgic Capsule) 1 Each Capsule, 2 EACH PO Q6H PRN for headache Prescribed by: CELIA HUGHES on 12/17/19 1631 Cefuroxime Axetil (Cefuroxime) 250 Mg Tablet, 250 MG PO BID Prescribed by: CELIA HUGHES on 07/28/21 191 Ciprofloxacin HCl/Dexameth (Ciproflox-Dexameth Otic Susp) 0.3 %-0.1 % Drops.susp, 3 DROPS OT BID Prescribed by: Rosi Hernandez on 05/29/23 1223 Clindamycin HCl (Clindamycin HCl) 300 Mg Capsule, 300 MG PO TID Prescribed by: STEF NAVAS on 08/15/20 1646 Cyclobenzaprine HCl (Cyclobenzaprine HCl) 10 Mg Tablet, 10 MG PO Q8H PRN for SPASMS Prescribed by: SHAQ OLSEN on 01/15/21 0025 Cyclobenzaprine HCl (Cyclobenzaprine HCl) 10 Mg Tablet, 10 MG PO Q8H PRN for SPASMS Prescribed by: HAMMAD ROACH on 05/22/22 1108 Doxycycline Hyclate (Doxycycline Hyclate) 100 Mg Tablet, 100 MG PO BID Prescribed by: CELIA HUGHES on 12/08/21 193 Erythromycin Base (Erythromycin Opthalmic Ointment) 5 Mg/Gram (0.5 %) Oint...g., 0 OP Q4H Prescribed by: OLMAN NEWTON on 03/20/22 1121 Fluoxetine HCl (Prozac) 20 Mg Capsule, Unknown Dose PO, (Reported) Entered as Reported by: FATOUMATA LIN on 09/01/19 044 Hydroxyzine Pamoate (Vistaril) 25 Mg Capsule, Unknown Dose PO, (Reported) Entered as Reported by: FATOUMATA LIN on 09/01/19444 Levetiracetam (Keppra) 1,000 Mg Tablet, 1,000 MG PO TID, (Reported) Entered as Reported by: GRISELDA MARTINEZ on 07/15/19 1659 Medroxyprogesterone Acetate (Provera) 10 Mg Tablet, 10 MG PO DAILY Prescribed by: STEF NAVAS on 08/15/20 1647 Metformin HCl (Metformin HCl) 500 Mg Tablet, 500 MG PO BID Prescribed by: CELIA HUGHES on 07/28/21 1837 Mometasone Furoate (Mometasone Furoate) 45 Gm Cream..g., 45 GM TP TID Prescribed by: SHAQ OLSEN on 03/10/20 023 Nitrofurantoin Macrocrystal (Nitrofurantoin) 100 Mg Capsule, 100 MG PO BID Prescribed by: STEF NAVAS on 07/02/21 210 Nitrofurantoin Monohyd/M-Cryst (Macrobid 100 mg Capsule) 100 Mg Capsule, 1 TAB PO BID Prescribed by: SHAQ OLSEN on 06/11/21 0207 Nitrofurantoin Monohyd/M-Cryst (Macrobid 100 mg Capsule) 100 Mg Capsule, 1 TAB PO BID Prescribed by: TRUDY CURRIE on 05/30/22 190 Nitrofurantoin Monohyd/M-Cryst (Macrobid 100 mg Capsule) 100 Mg Capsule, 1 TAB PO BID Prescribed by: SHAQ OLSEN on 07/21/22 215 Ofloxacin (Floxin (Non-Formulary)) 5 Ml Drops, 3 DROPS RIGHT EAR BID Prescribed by: CELIA HUGHES on 07/05/20 1426 Ondansetron (Ondansetron Odt) 4 Mg Tab.rapdis, 4 MG PO Q6H PRN for NAUSEA/VOMITING Prescribed by: HAMMAD ROACH on 04/30/21 1134 Ondansetron (Ondansetron Odt) 4 Mg Tab.rapdis, 4 MG PO Q4H Prescribed by: SHAQ OLSEN on 07/21/222056 Ondansetron (Ondansetron Odt) 4 Mg Tab.rapdis, 4 MG SL Q4H PRN for NAUSEA/VOMITING Prescribed by: TRUDY CURRIE on 07/28/232013 Prednisone (Prednisone) 20 Mg Tab, 40 MG PO DAILY Prescribed by: SHAQ OLSEN on 03/10/20231 Prednisone (Prednisone) 50 Mg Tab, 50 MG PO DAILY Prescribed by: BENEDICTO MARTÍNEZ MD on 02/06/22 023 Tramadol HCl (Tramadol HCl) 50 Mg Tablet, 50 MG PO Q4H PRN for PAIN Prescribed by: TRUDY CURRIE on 06/27/23 1429 Review of Systems Review of Systems Constitutional: see HPI Past Ezdhkgg-Tsomrj-Uewxjl Hx Immunizations Up To Date Tetanus Booster (TDap): Less than 5yrs PED Vaccines UTD: Yes First/Initial COVID19 Vaccinat: 4 SHOTS Second COVID19 Vaccination Alex: JANUARY 2021 Third COVID19 Vaccination Date: JUL 2021 Seasonal Allergies Seasonal Allergies: Yes Past Medical History Surgery/Hospitalization HX: Hx seizure disorder. R kidney removed, HTN, HIGH CHOLESTEROL,HEADACHES,PCOS, ANXIETY/DEPRESSION, PREDIABETIC SX HISTORYTUBES IN EARS, RIGHT KIDNEY REMOVAL, DENTAL, "TUMOR REMOVED FROM TOP OF MOUTH", TONSILS AND ADNOIDS Surgeries: Yes Adenoidectomy, Ear Surgery, Nephrectomy, Renal, Tonsillectomy Respiratory: No Cardiac: Yes Heart Murmur, High Cholesterol, Hypertension, Irregular Heartbeat Neurological: Yes Headaches /Migraines, Seizure Disorder Reproductive Disorders: No Female Reproductive Disorders: Polycystic Ovarian Dis Genitourinary: Yes (only one kidney) Bladder Infection Gastrointestinal: No Musculoskeletal: No Endocrine: Yes (PCOS; MORBID OBESITY; "PREDIABETES" ) HEENT: Yes (S/P BMT'S; DECREASED HEARING IN BOTH EAR;BENIGN TUMOR-ROOF OF MOUTH REMOVED) Chronic Ear Infection Hearing Impairment: Hard of Hearing Cancer: No Psychosocial: Yes Anxiety, Depression Integumentary: Yes (skin issues on lt leg) Blood Disorders: No Family Medical History No Pertinent Family Hx SOCIAL HISTORY: -ETOH--OCCASIONAL USE -DRUGS--DENIES USE -SMOKING--QUIT 2011 ADDITIONAL PAST MEDICAL HISTORY: HAD SEIZURES CHILD AND WAS ON MEDICATIONS UNTIL AGE 10; NO SEIZURES FOR YEARS, THEN STARTED HAVING SEIZURES AGAIN 10/2017, AND HAS BEEN BACK ON SEIZURE MEDICATIONS SINCE THEN. THEY POSSIBLY HAVE BEEN RELATED TO MIGRAINES, BUT ON PREVIOUS ER VISITS, THE SEIZURES HAVE BEEN ALL SELF-REPORTED AND NONE HAVE EVER BEEN WITNESSED AND PT HAS NEVER HAD AN EEG PAST SURGICAL HISTORY: -BMT'S -REMOVAL OF BENIGN TUMOR FROM ROOF OF MOUTH -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 -TONSILLECTOMY AND ADENOIDECTOMY Physical Exam Vital Signs Vital Signs - First Documented 09/20/23 19:42 Temp 36.6 Pulse 73 Resp 16 B/P (MAP) 125/61 (82) Capillary Refill : Less Than 3 Seconds Height, Weight, BMI Height: 5'5.00" Weight: 260lbs. 0oz. 117.747013ka; 44.00 BMI Method:Actual General Appearance: WD/WN, no apparent distress HEENT: PERRL/EOMI, TM abnormal (R) (Dull), TM abnormal (L) (Dull) Cardiovascular: regular rate, rhythm Respiratory: lungs clear, normal breath sounds, no respiratory distress, no accessory muscle use Extremities: normal range of motion, normal inspection Crainal Nerves: normal hearing, normal speech, PERRL; No facial asymmetry; other (Reports decreased sensation on right-sided face, facial movements symmetric) Coordination/Gait: normal gait Motor/Sensory: no motor deficit, no sensory deficit Skin: normal color, warm/dry Progress/Results/Core Measures Results/Orders My Orders Orders - ROSI MCKENZIE APRN Ed Iv/Invasive Line Start (09/20/23 19:45) Ns Iv 1000 Ml (Ns Iv 1000 Ml) (09/20/23 19:45) Ketorolac Injection (Ketorolac Injection (09/20/23 19:45) Prochlorperazine Injection (Prochlorpera (09/20/23 19:45) Diphenhydramine Injection (Diphenhydram (09/20/23 19:45) Medications Given in ED Current Medications Medications Dose Ordered Sig/Kayode Route Start Time Stop Time Status Last Admin Dose Admin Diphenhydramine HCl 25 mg ONCE ONCE IVP 09/20/23 19:45 09/20/23 19:48 DC 09/20/23 20:00 25 MG Ketorolac Tromethamine 15 mg ONCE ONCE IVP 09/20/23 19:45 09/20/23 19:48 DC 09/20/23 19:59 15 MG Prochlorperazine Edisylate 10 mg ONCE ONCE IV 09/20/23 19:45 09/20/23 19:48 DC 09/20/23 20:01 10 MG Vital Signs/I&O 09/20/23 19:42 Temp 36.6 Pulse 73 Resp 16 B/P (MAP) 125/61 (82) Blood Pressure Mean: 82 Progress Progress Note : Progress Note Patient seen and evaluated, resting comfortably in bed, no acute distress. Patient reports decreased sensation on right side of face. No unilateral weakness of the face. No unilateral weakness of the extremities. No unilateral numbness of the extremities either. The decreased sensation of the right side of her face is likely related to her migraine. I do not think that this is due to a stroke. Based on exam and symptoms, will treat migraine with migraine cocktail. Toradol, Benadryl, Compazine, and IV fluids ordered. 2045 patient reevaluated. Reports that her headache is gone. Patient also reports that the numbness on the right side of her face is gone. Patient is stable for discharge. Discharge instructions and return precautions provided. Departure Impression Primary Impression: Migraine Disposition: HOME, SELF-CARE Condition: Stable Departure-Patient Inst. Decision time for Depature: 20:47 Referrals: KEYANA PRIETO DO (PCP/Family) Primary Care Physician Patient Instructions: Migraines (DC) Add. Discharge Instructions: Follow-up with your primary care provider. You may need to be referred to a headache clinic. Return for any new, concerning, or worsening symptoms. All discharge instructions reviewed with patient and/or family. Voiced understanding. ROSI MCKENZIE APRN Sep 20, 2023 19:50
== END 2023-09-20 20:53 | disposition home or self-care (01) ==
LOC: EDUNIT# 19:27 → ER 19:28
DX: G43.909 Migraine, unspecified, not intractable, without status migrainosus (principal); E66.01 Morbid (severe) obesity due to excess calories; Z68.41 Body mass index [BMI] 40.0-44.9, adult; Z87.891 Personal history of nicotine dependence

== ENCOUNTER 2023-09-26 19:10 | Emergency (ER) | payer MEDICAID ==
--- NOTE | 2023-09-26 19:27 | ED EENT ---
History of Present Illness General Chief Complaint: Oral/Throat Problems Stated Complaint: SORE THROAT, Source: patient Exam Limitations: no limitations (ROSI MCKENZIE APRN) History of Present Illness Date Seen by Provider: Sep 26, 2023 Time Seen by Provider: 19:16 Initial Comments 28-year-old female presents to the ER with reports of sore throat since 09/22/23. She states she was seen at the [facility] walk-in clinic and had a negative strep test. She was told to return to [facility] if her symptoms continued or got worse. States that she tried to go there today but they were closed. Patient reports low-grade fever. Reports mild cough with phlegm. Denies rhinitis or nasal congestion. (ROSI MCKENZIE APRN) Allergies and Home Medications Allergies Coded Allergies: cephalexin (Verified Allergy, Severe, soa, 09/06/23) divalproex sodium (Verified Allergy, Severe, Hives, 09/06/23) topiramate (Unverified Allergy, Intermediate, 09/06/23) hives amoxicillin (Verified Allergy, Unknown, 09/06/23) carbamazepine (Verified Allergy, Unknown, 09/06/23) shellfish derived (Verified Allergy, Unknown, 09/06/23) Penicillins (Unverified Adverse Reaction, Intermediate, 09/06/23) Sulfa (Sulfonamide Antibiotics) (Unverified Adverse Reaction, Intermediate, 09/06/23) Patient Home Medication List Home Medication List Reviewed: Yes (ROSI MCKENZIE APRN) Albuterol Sulfate (Ventolin Hfa) 1 Puff Puff, 2 PUFF IH Q4H Prescribed by: BENEDICTO MARTÍNEZ MD on 02/06/22 0231 Azithromycin (Azithromycin) 250 Mg Tablet, 250 MG PO UD Prescribed by: TRUDY CURRIE on 07/28/232013 Butalb/Acetaminophen/Caffeine (Esgic Capsule) 1 Each Capsule, 2 EACH PO Q6H PRN for headache Prescribed by: CELIA HUGHES on 12/17/19 163 Cefuroxime Axetil (Cefuroxime) 250 Mg Tablet, 250 MG PO BID Prescribed by: CELIA HUGHES on 07/28/21 191 Ciprofloxacin HCl/Dexameth (Ciproflox-Dexameth Otic Susp) 0.3 %-0.1 % Drops.susp, 3 DROPS OT BID Prescribed by: Rosi Hernandez on 05/29/23 1223 Clindamycin HCl (Clindamycin HCl) 300 Mg Capsule, 300 MG PO TID Prescribed by: STEF NAVAS on 08/15/20 1646 Cyclobenzaprine HCl (Cyclobenzaprine HCl) 10 Mg Tablet, 10 MG PO Q8H PRN for SPASMS Prescribed by: SHAQ OLSEN on 01/15/21 0025 Cyclobenzaprine HCl (Cyclobenzaprine HCl) 10 Mg Tablet, 10 MG PO Q8H PRN for SPASMS Prescribed by: HAMMAD ROACH on 05/22/22 1108 Doxycycline Hyclate (Doxycycline Hyclate) 100 Mg Tablet, 100 MG PO BID Prescribed by: CELIA HUGHES on 12/08/21 193 Erythromycin Base (Erythromycin Opthalmic Ointment) 5 Mg/Gram (0.5 %) Oint...g., 0 OP Q4H Prescribed by: OLMAN NEWTON on 03/20/22 1121 Fluoxetine HCl (Prozac) 20 Mg Capsule, Unknown Dose PO, (Reported) Entered as Reported by: FATOUMATA LIN on 09/01/19 044 Hydroxyzine Pamoate (Vistaril) 25 Mg Capsule, Unknown Dose PO, (Reported) Entered as Reported by: FATOUMATA LIN on 09/01/19 044 Levetiracetam (Keppra) 1,000 Mg Tablet, 1,000 MG PO TID, (Reported) Entered as Reported by: GRISELDA MARTINEZ on 07/15/19 1659 Medroxyprogesterone Acetate (Provera) 10 Mg Tablet, 10 MG PO DAILY Prescribed by: STEF NAVAS on 08/15/20 1647 Metformin HCl (Metformin HCl) 500 Mg Tablet, 500 MG PO BID Prescribed by: CELIA HUGHES on 07/28/21 183 Mometasone Furoate (Mometasone Furoate) 45 Gm Cream..g., 45 GM TP TID Prescribed by: SHAQ OLSEN on 03/10/20 0232 Nitrofurantoin Macrocrystal (Nitrofurantoin) 100 Mg Capsule, 100 MG PO BID Prescribed by: STEF NAVAS on 07/02/21 210 Nitrofurantoin Monohyd/M-Cryst (Macrobid 100 mg Capsule) 100 Mg Capsule, 1 TAB PO BID Prescribed by: SHAQ OLSEN on 06/11/21 0207 Nitrofurantoin Monohyd/M-Cryst (Macrobid 100 mg Capsule) 100 Mg Capsule, 1 TAB PO BID Prescribed by: TRUDY CURRIE on 05/30/22 1907 Nitrofurantoin Monohyd/M-Cryst (Macrobid 100 mg Capsule) 100 Mg Capsule, 1 TAB PO BID Prescribed by: SHAQ OLSEN on 07/21/22 215 Ofloxacin (Floxin (Non-Formulary)) 5 Ml Drops, 3 DROPS RIGHT EAR BID Prescribed by: CELIA HUGHES on 07/05/20 142 Ondansetron (Ondansetron Odt) 4 Mg Tab.rapdis, 4 MG PO Q6H PRN for NAUSEA/VOMI TING Prescribed by: HAMMAD ROACH on 04/30/21 1134 Ondansetron (Ondansetron Odt) 4 Mg Tab.rapdis, 4 MG PO Q4H Prescribed by: SHAQ OLSEN on 07/21/222056 Ondansetron (Ondansetron Odt) 4 Mg Tab.rapdis, 4 MG SL Q4H PRN for NAUSEA/VOMITING Prescribed by: TRUDY CURRIE on 07/28/232013 Prednisone (Prednisone) 20 Mg Tab, 40 MG PO DAILY Prescribed by: SHAQ OLSEN on 03/10/20 0232 Prednisone (Prednisone) 50 Mg Tab, 50 MG PO DAILY Prescribed by: BENEDICTO MARTÍNEZ MD on 02/06/22 0231 Tramadol HCl (Tramadol HCl) 50 Mg Tablet, 50 MG PO Q4H PRN for PAIN Prescribed by: TRUDY CURRIE on 06/27/23 1429 Review of Systems Review of Systems Constitutional: see HPI (ROSI MCKENZIE APRN) Past Qfltwtg-Lpefen-Ofuzdi Hx Immunizations Up To Date Tetanus Booster (TDap): Less than 5yrs PED Vaccines UTD: Yes First/Initial COVID19 Vaccinat: 4 SHOTS Second COVID19 Vaccination Alex: 4 SHOTS Third COVID19 Vaccination Date: 4 SHOTS (ROSI MCKENZIE APRN) Seasonal Allergies Seasonal Allergies: Yes (ROSI MCKENZIE APRN) Past Medical History Surgery/Hospitalization HX: Hx seizure disorder. R kidney removed, HTN, HIGH CHOLESTEROL,HEADACHES,PCOS, ANXIETY/DEPRESSION, PREDIABETIC SX HISTORYTUBES IN EARS, RIGHT KIDNEY REMOVAL, DENTAL, "TUMOR REMOVED FROM TOP OF MOUTH", TONSILS AND ADNOIDS Surgeries: Yes Adenoidectomy, Ear Surgery, Nephrectomy, Renal, Tonsillectomy Respiratory: No Cardiac: Yes Heart Murmur, High Cholesterol, Hypertension, Irregular Heartbeat Neurological: Yes Headaches /Migraines, Seizure Disorder Reproductive Disorders: No Female Reproductive Disorders: Polycystic Ovarian Dis Genitourinary: Yes (only one kidney) Bladder Infection Gastrointestinal: No Musculoskeletal: No Endocrine: Yes (PCOS; MORBID OBESITY; "PREDIABETES" ) HEENT: Yes (S/P BMT'S; DECREASED HEARING IN BOTH EAR;BENIGN TUMOR-ROOF OF MOUTH REMOVED) Chronic Ear Infection Hearing Impairment: Hard of Hearing Cancer: No Psychosocial: Yes Anxiety, Depression Integumentary: Yes (skin issues on lt leg) Blood Disorders: No (ROSI MCKENZIE APRN) Family Medical History No Pertinent Family Hx SOCIAL HISTORY: -ETOH--OCCASIONAL USE -DRUGS--DENIES USE -SMOKING--QUIT 2011 ADDITIONAL PAST MEDICAL HISTORY: HAD SEIZURES CHILD AND WAS ON MEDICATIONS UNTIL AGE 10; NO SEIZURES FOR YEARS, THEN STARTED HAVING SEIZURES AGAIN 10/2017, AND HAS BEEN BACK ON SEIZURE MEDICATIONS SINCE THEN. THEY POSSIBLY HAVE BEEN RELATED TO MIGRAINES, BUT ON PREVIOUS ER VISITS, THE SEIZURES HAVE BEEN ALL SELF-REPORTED AND NONE HAVE EVER BEEN WITNESSED AND PT HAS NEVER HAD AN EEG PAST SURGICAL HISTORY: -BMT'S -REMOVAL OF BENIGN TUMOR FROM ROOF OF MOUTH -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 -TONSILLECTOMY AND ADENOIDECTOMY (ROSI MCKENZIE APRN) Physical Exam Vital Signs Vital Signs - First Documented 09/26/23 19:19 Temp 37.1 Pulse 76 Resp 16 B/P (MAP) 131/82 (98) Pulse Ox 98 O2 Delivery Room Air (SHAQ OLSEN DO) Height, Weight, BMI Height: 5'5.00" Weight: 260lbs. 0oz. 117.012388vq; 44.00 BMI Method:Actual General Appearance: WD/WN, no apparent distress Ears: bilateral ear auricle normal, bilateral ear canal normal, bilateral ear TM normal Mouth/Throat: tonsillar exudate; No tonsillar swelling, No trismus, No uvula swelling; voice changes (Hoarse voice) Neck: supple, normal inspection Cardiovascular: regular rate, rhythm Respiratory: lungs clear, normal breath sounds, no respiratory distress, no accessory muscle use Neurologic/Psychiatric: alert, normal mood/affect Skin: normal color, warm/dry (ROSI MCKENZIE APRN) Progress/Results/Core Measures Results/Orders Lab Results Laboratory Tests Test 09/26/23 19:20 Range/Units Group A Streptococcus Screen Not Detected NotDetected (SHAQ OLSEN DO) Vital Signs/I&O 09/26/23 09/26/23 19:19 20:30 Temp 37.1 37.1 Pulse 76 76 Resp 16 16 B/P (MAP) 131/82 (98) 131/82 Pulse Ox 98 98 O2 Delivery Room Air Room Air (SHAQ OLSEN DO) Progress Progress Note : Progress Note Patient seen and evaluated, resting comfortably in recliner, no acute distress. Based on exam and symptoms, strep swab ordered. 2018 rapid strep negative. Throat culture ordered. Results discussed with patient. This is likely a viral pharyngitis. Patient instructed to continue warm salt water gargles, to drink warm water or warm tea with honey, to drink plenty of water, and to use lozenges as needed for pain. Patient is stable for discharge. Discharge instructions and return precautions provided. (ROSI MCKENZIE APRN) Departure Impression Primary Impression: Viral pharyngitis Disposition: 01 HOME, SELF-CARE Condition: Stable Departure-Patient Inst. Decision time for Depature: 20:19 (ROSI MCKENZIE APRN) Referrals: KEYANA PRIETO DO (PCP/Family) Primary Care Physician Patient Instructions: Viral Pharyngitis Add. Discharge Instructions: Do warm salt water gargles, drink warm water or tea with honey, drink plenty of water, use lozenges as needed for pain. Follow-up with your primary care provider. Return for any new, concerning, or worsening symptoms. All discharge instructions reviewed with patient and/or family. Voiced understanding. ATTENDING PHYSICIAN NOTE: I WAS PHYSICALLY PRESENT ER PHYSICIAN, BUT I WAS NOT INVOLVED IN ANY DECISION MAKING OR ANY CARE OF THIS PATIENT AND I AM NOT COLLABORATING PHYSICIAN. (SHAQ OLSEN DO) ROSI MCKENZIE APRN Sep 26, 2023 19:27 SHAQ OLSEN DO Sep 27, 2023 01:02
[2023-09-26 20:30] VITALS: BP 131/82
== END 2023-09-26 20:30 | disposition home or self-care (01) ==
LOC: EDUNIT# 19:10 → ER 19:13
DX: J02.8 Acute pharyngitis due to other specified organisms (principal); B97.89 Other viral agents as the cause of diseases classified elsewhere; E66.01 Morbid (severe) obesity due to excess calories; Z87.891 Personal history of nicotine dependence; Z68.41 Body mass index [BMI] 40.0-44.9, adult
CPT/HCPCS: 87070; 87430; 99283